=== PATIENT | male | born 1940 | race Caucasian/White ===

== ENCOUNTER 2022-11-17 09:46 | Outpatient (OUT) | payer MEDICARE, SELFPAY | END 2022-11-17 09:47 | PROVIDERS: PCP Internal Medicine Interventional Cardiology; Visit Provider Physician Assistant | DX: I83.12 Varicose veins of left lower extremity with inflammation (principal); L97.821 Non-pressure chronic ulcer of other part of left lower leg limited to breakdown of skin | CPT/HCPCS: 99212; A6213; G0463 ==

== ENCOUNTER 2022-12-12 10:52 | Outpatient (OUT) | payer MEDICARE, SELFPAY ==
--- NOTE | 2022-12-12 11:09 | XR_ITS ---
The [address] [address] Patient Name: GENNY BOYKIN MRN: [id number] date: 1940 Sex: M Assigned Patient Location: Current Patient Location: Accession/Order Number: [id number] Exam Date: 12/12/2022 11:09 Report Date: 12/12/2022 21:46 At the request of: AYALA CRAFT Procedure: XR foot RT min 3V PROCEDURE: XR foot RT min 3V COMPARISON: None. HISTORY: RIGHT FOOT PAIN FINDINGS: BONES:No acute fracture or dislocation. Moderate to severe degenerative changes most significant at the talonavicular and first metatarsal-phalangeal joints with joint space narrowing and extensive marginal osteophyte formation. Moderate enthesopathic spurring of the calcaneus SOFT TISSUES:Negative. No visible soft tissue swelling. EFFUSION:None visible. OTHER: Vascular calcifications IMPRESSION: Moderate to severe degenerative changes Electronically authenticated by: MARJ DUKES Date: 12/12/2022 21:46
== END 2022-12-12 10:53 | disposition home or self-care (01) ==
LOC: WC 10:52
PROVIDERS: PCP Internal Medicine Interventional Cardiology; Visit Provider Physician Assistant
DX: E11.621 Type 2 diabetes mellitus with foot ulcer (principal); I87.312 Chronic venous hypertension (idiopathic) with ulcer of left lower extremity; L97.821 Non-pressure chronic ulcer of other part of left lower leg limited to breakdown of skin; L97.511 Non-pressure chronic ulcer of other part of right foot limited to breakdown of skin; M79.671 Pain in right foot; I06.0 Rheumatic aortic stenosis; M13.80 Other specified arthritis, unspecified site; I50.32 Chronic diastolic (congestive) heart failure; E11.21 Type 2 diabetes mellitus with diabetic nephropathy; E11.65 Type 2 diabetes mellitus with hyperglycemia; I10 Essential (primary) hypertension; I73.9 Peripheral vascular disease, unspecified; A41.9 Sepsis, unspecified organism
CPT/HCPCS: 73630; A6213

== ENCOUNTER 2023-01-02 11:03 | Outpatient (OUT) | payer MEDICARE, SELFPAY | END 2023-01-02 11:04 | disposition home or self-care (01) | LOC: WC 11:03 | PROVIDERS: PCP Internal Medicine Interventional Cardiology; Visit Provider Physician Assistant | DX: I87.312 Chronic venous hypertension (idiopathic) with ulcer of left lower extremity (principal); L97.821 Non-pressure chronic ulcer of other part of left lower leg limited to breakdown of skin; E11.621 Type 2 diabetes mellitus with foot ulcer; L97.511 Non-pressure chronic ulcer of other part of right foot limited to breakdown of skin | CPT/HCPCS: A6213; G0463 ==

== ENCOUNTER 2023-02-10 07:33 | Outpatient (OUT) | payer MEDICARE, SELFPAY ==
--- NOTE | 2023-02-10 08:20 | CA_ITS ---
Patient: GENNY BOYKIN Exam Date: 02/10/2023 : 1940 Gender:M Ordering : DOTTIE GIRARD Admission #: [id number] Family : DR MARJ PIPER Order #: [id number] CLICK HERE TO VIEW EXAM ECHOCARDIOGRAM REPORT PROCEDURE: CA ECHO DOPPLER COMPLETE INDICATIONS: Nonrheumatic aortic valve stenosis, hypertension, diabetes COMPARISON: None. DESCRIPTION: COMPLETE ECHOCARDIOGRAM Real-time transthoracic echocardiography with 2D, M-mode, spectral and color flow Doppler performed. QUALITY: Technical quality was good. LEFT VENTRICLE: Normal chamber size. Proximal septal hypertrophy (sigmoid septum). LV EF: Global left ventricular systolic function is normal; visually estimated ejection fraction is 55 to 60%. No significant wall motion abnormalities. DIASTOLIC: Normal diastolic function. ATRIAL SEPTUM: Visually appears intact. LEFT ATRIUM: Normal chamber size. RIGHT ATRIUM: Normal chamber size. RIGHT VENTRICLE: Normal chamber size. Normal right ventricular systolic function. TRICUSPID VALVE: Normal mobility and thickness. Mild regurgitation. No evidence of pulmonary hypertension. RVSP 33 mmHg MITRAL VALVE: Moderately thickened with normal mobility. No evidence of mitral valve stenosis. Mild mitral annular calcification. Mild mitral regurgitation. AORTIC VALVE: Normal trileaflet appearance. Moderately calcified aortic valve. Doppler velocity suggests mild to moderate aortic valve stenosis. DVI 0.4, CRICKET 1.4 cm2. No aortic regurgitation. AORTIC ROOT: Normal diameter and appearance. PULMONIC VALVE: Normal thickness and mobility. No stenosis. No regurgitation. PERICARDIUM: No evidence of pericardial effusion. IVC: Collapses with inspirations. CONCLUSION: 1. Global left ventricular systolic function is normal; visually estimated ejection fraction is 55 to 60% 2. Normal diastolic function 3. Right ventricle is normal in size and systolic function 4. Mild tricuspid regurgitation 5. Mild mitral regurgitation 6. Mild to moderate aortic valve stenosis Adult Echocardiography Procedure Report Left Ventricle LVEDD (3.7 - 5.6 cm): 3.77 cm LVESD (2.2 - 4.0 cm): 2.14 cm LVIVS thickness (0.6 - 1.2 cm): 1.31 cm LVPW thickness (0.5 - 1.0 cm): 0.93 cm e': 0.08 m/s E - e': 7.03 LVOT Max Gradient: 2.80 mm[Hg], 2.58 mm[Hg], 2.80 mm[Hg], 2.58 mm[Hg] LVOT Area (cm2): 0.82 m/s Peak Velocity (LVOT): 0.84 m/s, 0.80 m/s, 0.84 m/s, 0.80 m/s Mean Velocity (LVOT): 0.56 m/s LVOT Diameter 2.12 cm Left Atrium LA Volume Index (2D A2C): 22.85 ml/m2 Left Atrium Systolic Dimension: 3.80 cm Mitral Valve MV E to A Ratio: 0.72, 0.67 Mitral Valve A-Wave Peak Velocity: 0.82 m/s Mitral Valve E-Wave Peak Velocity: 0.57 m/s Right Ventricle Aorta AO Root Diam: 3.05 cm Ascending Ao Diam: 3.12 cm Aortic Valve AoV Area (Peak Bill): 1.32 cm2, 1.35 cm2 AoV Area (VTI): 1.35 cm2, 1.39 cm2 Peak Velocity(Antegrade Flow): 2.18 m/s Peak Gradient(Antegrade Flow): 19.05 mm[Hg] Mean Velocity(Antegrade Flow): 1.55 m/s Mean Gradient(Antegrade Flow): 10.99 mm[Hg] Velocity Time Integral: 48.06 cm Tricuspid Valve Peak Velocity (Regurgitant Flow): 2.52 m/s, 2.74 m/s, 2.55 m/s Pulmonic Valve Peak Velocity: 0.85 m/s Peak Gradient: 2.89 mm[Hg], 2.95 mm[Hg] Right Atrium Right Atrium Systolic Pressure: 25.32 ml, 25.32 ml Dictated by: Lindsay Carvajal M.D. on 02/13/2023 at 14:33 Approved by: Lindsay Carvajal M.D. on 02/13/2023 at 14:37
== END 2023-02-10 07:34 | disposition home or self-care (01) ==
LOC: CARD 07:34
PROVIDERS: PCP Family Medicine; Visit Provider Nurse Practitioner
DX: I08.3 Combined rheumatic disorders of mitral, aortic and tricuspid valves (principal)
CPT/HCPCS: 93306

== ENCOUNTER 2023-03-03 14:38 | Outpatient (OUT) | payer MEDICARE, SELFPAY ==
[2023-03-03 15:12] LABS: Alanine Aminotransferase 49 U/L (16-63); Albumin Globulin Ratio 0.9; Albumin Level 3.4 g/dL (3.4-5.0); Alkaline Phosphatase 171 U/L (46-116); Anion Gap 10.4; Aspartate Amino Transferase 37 U/L (15-37); BUN Creatinine Ratio 19.7; Bilirubin Total 0.4 mg/dL (0.2-1.0); Calcium 8.6 mg/dL (8.5-10.1); Carbon Dioxide 31.8 mmol/L (21.0-32.0); Chloride 102 mmol/L (98-107); Estimated GFR (African America 35 (>=60); Estimated GFR (Non-African Ame 29 (>=60); Globulin 3.8 g/dL; Glucose 341 mg/dL (74-106); Potassium 5.2 mmol/L (3.5-5.1); Sodium 139 mmol/L (136-145); Total Protein 7.2 g/dL (6.4-8.2)
== END 2023-03-03 14:39 | disposition home or self-care (01) ==
LOC: LAB 14:40
PROVIDERS: PCP Family Medicine; Visit Provider Nurse Practitioner Acute Care
DX: I50.32 Chronic diastolic (congestive) heart failure (principal)
CPT/HCPCS: 36415; 80053

== ENCOUNTER 2023-09-19 09:10 | Outpatient (OUT) | payer MEDICARE, SELFPAY ==
--- NOTE | 2023-09-19 | XR_ITS ---
[place] [id number] Patient Name: GENNY BOYKIN MRN: [id number] date: 1940 Sex: M Assigned Patient Location: Current Patient Location: Accession/Order Number: [id number] Exam Date: 09/19/2023 09:15 Report Date: 09/21/2023 06:17 At the request of: YANNI MARTINEZ Procedure: XR foot RT min 3V PROCEDURE: XR foot RT min 3V HISTORY: RIGHT FOOT WOUND ; open wound dorsal surface of third toe COMPARISON: XR foot right 12/12/2022 FINDINGS: BONES:Osseous destruction involving bones of the third toe involving the medial margin of the head of the proximal phalanx and the contiguous articular surfaces of the distal interphalangeal joint. Generalized osteopenia of the foot. Marked joint space narrowing and prominent periarticular osteophytes involving the first metatarsophalangeal joint. Marked degenerative changes of the talonavicular joint. Pes planus. SOFT TISSUES:No visible soft tissue swelling. EFFUSION:None visible. OTHER: Negative. XR/XR foot RT min 3V IMPRESSION: 1. Areas of osseous destruction involving the bones of the third toe compatible with osteomyelitis. 2. 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 Electronically authenticated by: CHERI LAGUERRE Date: 09/21/2023 06:17
== END 2023-09-19 09:11 | disposition home or self-care (01) ==
LOC: WC 09:11
PROVIDERS: PCP Family Medicine; Visit Provider Podiatrist Foot & Ankle Surgery
DX: E11.621 Type 2 diabetes mellitus with foot ulcer (principal); L97.511 Non-pressure chronic ulcer of other part of right foot limited to breakdown of skin; I87.312 Chronic venous hypertension (idiopathic) with ulcer of left lower extremity; L97.821 Non-pressure chronic ulcer of other part of left lower leg limited to breakdown of skin
CPT/HCPCS: 73630; G0463

== ENCOUNTER 2023-09-26 09:53 | Outpatient (OUT) | payer MEDICARE, SELFPAY ==
--- NOTE | 2023-09-26 10:00 | CA_ITS ---
Patient Name: GENNY BOYKIN MR#: [id number] : 1940 Exam Date: 09/26/2023 Ordering Doctor: MADELYN LORENZO M.D. 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 DESCRIPTION: COMPLETE ECHOCARDIOGRAM Real-time transthoracic echocardiography with 2D, M-mode, spectral and color flow Doppler performed. QUALITY: Technical quality was good. 71 , 229#, BSA 2.23 m2, BP 136/74 LEFT VENTRICLE: Normal chamber size. Thickened septal wall. Normal systolic function. LV EF: Normal left ventricular ejection fraction, (>55%). DIASTOLIC: Mild, grade I diastolic dysfunction. ATRIAL SEPTUM: Visually appears intact. LEFT ATRIUM: Moderate chamber enlargement. RIGHT ATRIUM: Normal chamber size. RIGHT VENTRICLE: Normal chamber size. Normal right ventricular systolic function. TRICUSPID VALVE: Normal mobility and thickness. No stenosis with mild regurgitation. No evidence of pulmonary hypertension. RVSP 33 mmHg MITRAL VALVE: Moderately thickened with normal mobility. No evidence of mitral valve stenosis. Mild mitral annular calcification. Mild mitral regurgitation. AORTIC VALVE: Normal trileaflet appearance. Moderately calcified aortic valve. Mildly diminished mobility. Doppler velocity suggest moderate aortic valve stenosis. Peak velocity 2.5 m/s, mean gradient is 12 mmHg. DVI 0.3, CRICKET 1.1 cm2. No aortic regurgitation. AORTIC ROOT: Normal diameter and appearance. PULMONIC VALVE: Normal thickness and mobility. No stenosis. No regurgitation. PERICARDIUM: No evidence of pericardial effusion. IVC: Collapses with inspirations. PLEURA: CONCLUSION: 1. Normal ventricular systolic function. LVEF is 55 to 60%. 2. Mild diastolic dysfunction. 3. Moderate aortic valve stenosis. 4. Mild mitral and tricuspid regurgitation. 5. Normal right-sided pressures. Adult Echocardiography Procedure Report Left Ventricle LVEDD (3.7 - 5.6 cm): 3.41 cm LVESD (2.2 - 4.0 cm): 3.03 cm LVIVS thickness (0.6 - 1.2 cm): 1.29 cm LVPW thickness (0.5 - 1.0 cm): 0.87 cm e': 0.07 m/s E - e': 9.49 LVOT Max Gradient: 2.31 mm[Hg] LVOT Area (cm2): 0.76 m/s Peak Velocity (LVOT): 0.76 m/s Mean Velocity (LVOT): 0.54 m/s LVOT Diameter 2.17 cm Left Atrium LA Volume Index (2D A2C): 23.64 ml/m2 Left Atrium Systolic Dimension: 3.13 cm Mitral Valve MV E to A Ratio: 0.85 Mitral Valve A-Wave Peak Velocity: 0.79 m/s Mitral Valve E-Wave Peak Velocity: 0.67 m/s Right Ventricle Aorta AO Root Diam: 3.39 cm Ascending Ao Diam: 2.91 cm Aortic Valve AoV Area (Peak Bill): 1.1 cm2 Peak Velocity(Antegrade Flow): 2.05 m/s, 2.02 m/s, 2.50 m/s, 2.48 m/s Peak Gradient(Antegrade Flow): 16.76 mm[Hg], 16.35 mm[Hg], 25.08 mm[Hg], 24.65 mm[Hg] Mean Velocity(Antegrade Flow): 1.38 m/s, 1.32 m/s, 1.62 m/s, 1.61 m/s Mean Gradient(Antegrade Flow): 8.93 mm[Hg], 8.31 mm[Hg], 12.21 mm[Hg], 12.28 mm[Hg] Velocity Time Integral: 42.54 cm, 39.68 cm, 48.65 cm, 50.75 cm Tricuspid Valve Peak Velocity (Regurgitant Flow): 2.47 m/s, 2.74 m/s Pulmonic Valve Peak Gradient: 3.27 mm[Hg], 2.96 mm[Hg] Right Atrium Right Atrium Systolic Pressure: 24.07 ml, 24.07 ml Dictated by: Lonny Liu M.D. on 09/26/2023 at 16:05 Approved by: Lonny Liu M.D. on 09/26/2023 at 16:16
== END 2023-09-26 09:54 | disposition home or self-care (01) ==
LOC: CARD 09:54
PROVIDERS: PCP Family Medicine; Visit Provider Internal Medicine Cardiovascular Disease
DX: I08.0 Rheumatic disorders of both mitral and aortic valves (principal)
CPT/HCPCS: 93306

== ENCOUNTER 2023-10-03 13:33 | Outpatient (OUT) | payer MEDICARE, SELFPAY | END 2023-10-03 13:34 | disposition home or self-care (01) | LOC: WC 13:33 | PROVIDERS: PCP Family Medicine; Visit Provider Podiatrist Foot & Ankle Surgery | DX: E11.621 Type 2 diabetes mellitus with foot ulcer (principal); L97.511 Non-pressure chronic ulcer of other part of right foot limited to breakdown of skin; I87.312 Chronic venous hypertension (idiopathic) with ulcer of left lower extremity; L97.821 Non-pressure chronic ulcer of other part of left lower leg limited to breakdown of skin | CPT/HCPCS: 11042 ==

== ENCOUNTER 2023-10-23 14:41 | Outpatient (OUT) | payer MEDICARE, SELFPAY | END 2023-10-23 14:42 | disposition home or self-care (01) | LOC: WC 14:41 | PROVIDERS: PCP Family Medicine; Visit Provider Physician Assistant | DX: E11.621 Type 2 diabetes mellitus with foot ulcer (principal); L97.511 Non-pressure chronic ulcer of other part of right foot limited to breakdown of skin | CPT/HCPCS: G0463 ==

== ENCOUNTER 2023-11-24 12:32 | Outpatient (OUT) | payer MEDICARE, SELFPAY | END 2023-11-24 12:33 | disposition home or self-care (01) | LOC: WC 12:32 | PROVIDERS: PCP Family Medicine; Visit Provider Podiatrist Foot & Ankle Surgery | DX: E11.621 Type 2 diabetes mellitus with foot ulcer (principal); L97.511 Non-pressure chronic ulcer of other part of right foot limited to breakdown of skin | CPT/HCPCS: 11042 ==

== ENCOUNTER 2023-12-25 16:04 | Outpatient (OUT) | payer MEDICARE, SELFPAY ==
--- OUTSIDE RECORDS SUMMARY | 2023-12-25 16:31 | XMS_ITS | CCD ---
Author Organization [facility] Care Team Providers Care Heat Treat Supervisor Name Role Phone Unavailable Primary Care Provider UnavailMARJ Cooper Primary Care Unavailable MORTON Referring Unavailable JILLIAN HERNADEZ Admitting Unavailable ALICIA SWEET Attending Unavailable Lydia Anderson Unavailable Godfrey Gomez Unavailable Teofilo Person Unavailable MD Marj Sorensen Primary Care Provider MD Teofilo Person Attending Provider MD Sweetie Tomlinson V Attending Provider MISC, DR SILVA Primary Care Unavailable YURI HUGHES Attending Unavailable YURI HUGHES Admitting Unavailable DAVI, DR PITT Admitting Unavailable MISC, DR SILVA Primary Care Unavailable MOUKARBCLINT, DR PITT Attending Unavailable MOUKAPETROSEL, DR PITT Consulting Unavailable MISC, DR SILVA Primary Care Unavailable MAYRAUKAALPHONSO, DR PITT Attending Unavailable MOUKAPETROSEL, DR PITT Consulting Unavailable MAYRAUKAPETROSEL, DR PITT Admitting Unavailable PROVIDER, UNKNOWN Attending Unavailable PROVIDER, UNKNOWN Admitting Unavailable MADELYN LORENZO Attending Unavailable FRANCOIS NERI Attending Unavailable SWEETIE TOMLINSON Attending Unavailable DOTTIE GIRARD Attending Unavailable Marj Sorensen Admitting Unavailable Marj Sorensen Primary Care Unavailable Marj Sorensen Attending Unavailable Marj Sorensen Primary Care Unavailable Marj Sorensen Admitting Unavailable Marj Sorensen Attending Unavailable Marj Sorensen Primary Care Unavailable CAREY FUNG Admitting Unavailable CAREY FUNG Attending Unavailable Marj Sorensen Primary Care Unavailable Marj Sorensen Attending Unavailable Marj Sorensen Primary Care Unavailable Marj Sorensen Attending Unavailable Marj Sorensen Primary Care Unavailable Marj Sorensen Attending Unavailable Marj Sorensen Primary Care Unavailable Marj Sorensen Attending Unavailable Marj Sorensen Attending Unavailable Marj Sorensen Primary Care Unavailable Marj Sorensen Primary Care Unavailable CAREY FUNG Admitting Unavailable CAREY FUNG Attending Unavailable Marj Sorensen Primary Care Unavailable Marj Sorensen Admitting Unavailable Marj Sorensen Attending Unavailable Marj Sorensen Attending Unavailable Marj Sorensen Primary Care Unavailable Marj Sorensen Admitting Unavailable Medications Current Medications Medication Drug Class(es) Dates Sig (Normalized) Sig (Original) 8 hr acetaminophen 650 mg extended release oral tablet (4 sources) Start: 02-12-2020 take 1 tablet by mouth three times daily Acetaminophen (Tylenol Arthritis Pain) 650 mg Tablet Extended Release Active 650 MG PO Three times daily February 12, 2020 12:00am take 1 tablet by mouth every fou r hours Tylenol 325 MG 1 tablet as needed Orally every 4 hrs prn Active allopurinol 300 mg oral tablet (1 source) Xanthine Oxidase Inhibitor Start: 02-12-2020 take 300 mg by mouth once daily Allopurinol Active 300 MG PO Daily February 12, 2020 12:00am aspirin 325 mg oral tablet (4 sources) Platelet Aggregation Inhibitor, Nonsteroidal Anti-inflammatory Drug Start: 02-12-2020 take 325 mg by mouth once daily Aspirin,Buffd-Ludwig cium Carb-Mag Active 325 MG PO Daily February 12, 2020 12:00am chondroitin sulfates 200 mg / glucosamine hydrochloride 250 mg oral tablet (4 sources) Start: 02-12-2020 take 1 tablet by mouth once daily Glucosamine-Chond roitin (Osteo Bi-Flex) 250-200 mg Tablet Active 1 TAB PO Daily February 12, 2020 12:00am Osteo Bi-Flex On e Per Day - as directed Orally Active cinnamon bark 500 mg oral capsule (1 source) Start: 02-12-2020 take 1 capsule by mouth once daily Cinnamon Bark (Cinnamon) 500 mg Capsule Active 1000 MG PO Daily February 12, 2020 12:00am cinnamon preparation 500 mg oral tablet (3 sources) Non-Standardized Food Allergenic Extract Cinnamon 500 MG as directed Orally Active Ciprofloxacin (1 source) Quinolone Antimicrobial Ciprofloxacin Active colchicine 0.6 mg oral tablet (3 sources) Start: 03-12-2020 Colchicine 0.6 MG 2 tablet when picked up then take 1 tablet 1 hour later Orally Once a day for 30 day(s) Feb, Active empagliflozin 10 mg oral tablet (4 sources) Sodium-Glucose Cotransporter 2 Inhibitor Start: 02-12-2020 take 5-10 mg by mouth once daily Empagliflozin (Jardiance) 10 mg Tablet Active 5 - 10 MG PO Daily February 12, 2020 12:00am States I take on according to my BS. fluticasone propionate 0.05 mg/actuat metered dose nasal spray (4 sources) Corticosteroid Start: 02-12-2020 Fluticasone Propionate Active 1 SPRAY INTRANASAL Daily February 12, 2020 12:00am take 1 spray(s) nasal route once daily Fluticasone Propionate 50 MCG/ACT 1 spray in each nostril Nasally Once a day Active glimepiride 4 mg oral tablet (4 sources) Sulfonylurea Start: 02-12-2020 take 4 mg by mouth twice daily Glimepiride Active 4 MG PO Twice daily February 12, 2020 12:00am take 1 tablet by [facility] every twenty-four hours Glimepiride 4 MG 1 tablet with breakfast or the first main meal of the day Orally Once a day Active hydroCHLOROthiazide 12.5 mg oral tablet (4 sources) Thiazide Diuretic Start: 02-12-2020 take 12.5 mg by mouth once daily Hydrochlorothiazide Active 12.5 MG PO Daily February 12, 2020 12:00am take 1 capsule by mo [facility] every twenty-four hours hydroCHLOROthiazide 12.5 MG 1 capsule in the morning Orally Once a day Active levothyroxine sodium 0.025 mg oral tablet (5 sources) l-Thyroxine Start: 02-12-2020 take 25 ug by mouth once daily Levothyroxine Active 25 MCG PO Daily February 12, 2020 12:00am Start: 02-12-2020 End: 02-12-2020 Levothyroxine Discontinued T ABLET February 12, 2020 12:00am February 12, 2020 9:57am take 1 tablet by toma once daily in the morning Levothyroxine Sodium 25 MCG 1 tablet in the morning on an empty stomach Orally Once a day Active lidocaine 0.04 mg/mg topical gel (1 source) Antiarrhythmic, Amide Local Anesthetic Start: 02-12-2020 Lidocaine Active 1 APPLIC TOPICAL As Directed February 12, 2020 12:00am loratadine 10 mg oral tablet (4 sources) Start: 02-12-2020 take 10 mg by mouth once daily Loratadine Active 10 MG PO Daily February 12, 2020 12:00am metoprolol tartrate 25 mg oral tablet (4 sources) beta-Adrenergic Jose D Start: 02-12-2020 take 25 mg by mouth twice daily Metoprolol Tartrate Active 25 MG PO Twice daily February 12, 2020 12:00am take 1 capsule by mouth once yinka ly Metoprolol Succinate 25 MG 1 capsule Orally Once a day Active montelukast 10 mg oral tablet (4 sources) Leukotriene Receptor Antagonist Start: 02-27-2020 take 10 mg by mouth once daily at bedtime Montelukast Active 10 MG PO Daily at bedtime February 27, 2020 12:00am Rcqkttni-Gxb-Iqcqe -Vit K-Lycop (Men's 50 Plus Daily Formula) 400-20-370 mcg Tablet (1 source) Start: 02-12-2020 take 1 tablet by mouth once daily Msqtspme-Vee-Cewd c-Vit K-Lycop (Men's 50 Plus Daily Formula) 400-20-370 mcg Tablet Active 1 TAB PO Daily February 12, 2020 12:00am Multivitamin preparation (3 sources) take 1 tablet by mouth once daily Multivitamin - 1 tablet Orally Once a day Active pioglitazone 45 mg oral tablet (4 sources) Peroxisome Proliferator Receptor alpha Agonist, Peroxisome Proliferator Receptor gamma Agonist, Thiazolidinedione Start: 02-12-2020 take 45 mg by mouth once daily Pioglitazone Active 45 MG PO Daily February 12, 2020 12:00am pravastatin sodium 40 mg oral tablet (4 sources) HMG-CoA Reductase Inhibitor Start: 02-12-2020 take 40 mg by mouth every other day Pravastatin Active 40 MG PO every other day February 12, 2020 12:00am take 1 tablet by toma th every twenty-four hours Pravastatin Sodium 40 MG 1 tablet Orally Once a day Active rivaroxaban 10 mg oral tablet (1 source) Factor Xa Inhibitor Start: 02-28-2020 take 1 tablet by mouth once daily Rivaroxaban (Xarelto) 10 mg Tablet Active 10 MG PO Daily February 28, 2020 12:00am rOPINIRole 1 mg oral tablet (7 sources) Nonergot Dopamine Agonist Start: 03-12-2020 take 2 tablets by mouth at bedtime rOPINIRole HCl 1 MG 2 tablet Orally at bedtime for 30 day(s) 24 Sep, 2020 Active Start: 02-12-2020 take 2 mg by mouth o nce daily at bedtime Ropinirole Active 2 MG PO Daily at bedtime February 12, 2020 12:00am take 1 tablet by toma th once daily at bedtime rOPINIRole HCl 1 MG 1 tablet 1 to 3 hours before bedtime Orally Once a day Active [place] Oil-[place]-3 Fatty Acids ([place] Oil-1000) 1,000-200 mg Capsule (1 source) Start: 02-12-2020 take 1 capsule by mouth once daily [place] Oil-[place]-3 Fatty Acids ([place] Oil-1000) 1,000-200 mg Capsule Active 1 CAP PO Daily February 12, 2020 12:00am ubidecarenone 100 mg oral capsule (1 source) Start: 02-12-2020 Coenzyme Q10 ( Co Q-10) 100 mg Capsule Active 100 MG PO Daily February 12, 2020 12:00am Vitamin B 12 100 MCG (3 sources) Vitamin B 12 100 MCG as directed Orally Active vitamin b12 1 mg oral tablet (1 source) Vitamin B12 Start: 02-12-2020 take 1 tablet by mouth once daily Cyanocobalamin (Vitamin B-12) (Vitamin B-12) 1,000 mcg Tablet Active 1000 MCG PO Daily February 12, 2020 12:00am Completed/Discontinued Medications Medication Drug Class(es) Dates Sig (Normalized) Sig (Original) traMADol hydrochloride 50 mg oral tablet (4 sources) Opioid Agonist Start: 02-12-2020 End: 02-28-2020 Tramadol Discontinued 50 MG PO Three times daily February 12, 2020 12:00am February 28, 2020 9:46am Takes 1 at HS take 1 tablet by toma th every twenty-four hours traMADol HCl 50 MG 1 tablet as needed Orally Once a day Active Problems Active Problems Problem Classification Problem Date Documented Date Episodic/Chronic Cardiac dysrhythmias (6 sources) Paroxysmal atrial fibrillation; Translations: [PAROXYSMAL ATRIAL FIBRILLATION] Onset: 03-26-2022 Chronic Chronic kidney disease (2 sources) Chronic kidney disease; Translations: [Chronic kidney disease, stage 3b] Onset: 10-06-2023 Chronic ulcer of skin (2 sources) Non-pressure chronic ulcer of unspecified part of left lower leg with unspecified severity; Translations: [Non-pressure chronic ulcer of unspecified part of left lower leg with unspecified severity] Onset: 10-21-2022 Chronic Congestive heart failure; nonhypertensive (3 sources) Chronic diastolic (congestive) heart failure; Translations: [CHRONIC DIASTOLIC HEART FAILURE] Onset: 03-25-2022 Chronic Coronary atherosclerosis and other heart disease (2 sources) Atherosclerotic heart disease of [place] coronary artery without angina pectoris; Translations: [Atherosclerotic heart disease of [place] coronary artery without angina pectoris] Onset: 02-19-2022 Chronic Diabetes mellitus with complications (2 sources) Type 2 diabetes mellitus with other skin ulcer; Translations: [Type 2 diabetes mellitus with other skin ulcer] Onset: 10-21-2022 Chronic Diabetes mellitus without complication (2 sources) Type 2 diabetes mellitus without complications; Translations: [Type 2 diabetes mellitus without complications] Onset: 03-03-2023 Chronic Disorders of lipid metabolism (3 sources) Hyperchylomicronemia; 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 ] Onset: 03-25-2022 Chronic Essential hypertension (2 sources) Essential (primary) hypertension; Translations: [Essential (primary) hypertension] Onset: 10-21-2022 Chronic Gangrene (3 sources) Gangrene of foot; Translations: [Gangrene, not elsewhere classified] Episodic Gout and other crystal arthropathies (4 sources) Gouty arthritis of right ankle; Translations: [Idiopathic gout, right ankle and foot] Onset: 03-11-2021 Resolved: 03-11-2021 Chronic Heart valve disorders (4 sources) Nonrheumatic aortic (valve) stenosis; Translations: [Rheumatic disorders of both mitral and aortic valves] Onset: 03-25-2022 Chronic Osteoarthritis (4 sources) Arthritis of right knee; Translations: [Unilateral primary osteoarthritis, right knee] Onset: 03-11-2021 Resolved: 03-11-2021 Chronic Other connective tissue disease (4 sources) History of total knee arthroplasty; Translations: [Presence of right artificial knee joint] 02-28-2020 Chronic Other connective tissue disease (1 source) Presence of right artificial knee joint; Translations: [Status post total right knee replacement Z96.651] Onset: 03-11-2021 Resolved: 03-11-2021 Chronic Other hereditary and degenerative nervous system conditions (3 sources) Restless legs; Translations: [Restless legs syndrome] Chronic Other hereditary and degenerative nervous system conditions (1 source) Restless legs syndrome; Translations: [Restless leg syndrome G25.81] Onset: 03-11-2021 Resolved: 03-11-2021 Chronic Other nervous system disorders (3 sources) Neuropathy; Translations: [Polyneuropathy, unspecified] Chronic Other nervous system disorders (3 sources) Chronic pain; Translations: [Other chronic pain] Chronic Other non-traumatic joint disorders (1 source) Rotator cuff arthropathy of right shoulder; Translations: [Other specific arthropathies, not elsewhere classified, right shoulder] Chronic Other non-traumatic joint disorders (1 source) Other specific arthropathies, not elsewhere classified, right shoulder Onset: 12-02-2021 Resolved: 12-02-2021 Chronic Peripheral and visceral atherosclerosis (6 sources) Peripheral vascular disease; Translations: [Peripheral vascular disease, unspecified] Onset: 03-25-2022 Chronic Spondylosis; intervertebral disc disorders; other back problems (3 sources) Degeneration of lumbar intervertebral disc; Translations: [Other intervertebral disc degeneration, lumbar region] Chronic Past or Other Problems Problem Classification Problem Date Documented Da te Episodic/Chronic Other non-traumatic joint disorders (1 source) Pain in right shoulder Onset: 12-02-2021 Resolved: 12-02-2021 Episodic Results Test Name Value Interpretation Reference Range Facility Coding Summaryon 12-12-2023 Coding Summary HTMLBase 64 EmbvwpguUVp4vZt+PGhlYW Q+FM9DCKMnA94ctQRbnO1z S6MKQPqMWijsGPJZNQfAQq MrblDnXX0ccRRsZANy IC8+HG4wLEEwBpsyxIUfk6 D9oPS4X69yul5kHDqagLC6 CSRfAnTvqmsld4qlkKg4ZJ cuNmluOyBt AQQmwW92YGA1eX06Rr06iY JnvYBpv0gupVl8FtVbTXTi GHF1eCeaJVwib0NqGFPbA4 9fuPUcg5Z0 YBQjyNezkSRcYwKfyUK2aZ 6xWClywweik8xupcnqEir8 oe23rIEhl9B4pHM1D2Uhzf W6RAEfoXKr ThhqrDVMnR3gajcxt3kodc idYoEvXDVjMHc6XAn4ZTZt gIwiSzVmQJ52IYW1FRByae MlP1DcSASx xFedZzV5n2O3Ya9IE7PDQy lwJ8ZDYVNHAGkmpAX+PC90 xx34A8DgOkndRwq0FFLlLJ V2zWG5aM3t SRAfVQmxq6C7hHY3T7Eivr Vuej6qk3imHWJvHCqhS41p vZFzq9V3PAKsqQN7BTUrkS cbOuYuaC82 Oyc+JEBahVlae9PuOscmd1 zma1qtpEq4NckjGIJjjzBf cCvlEZN9i6ZcCk1xBTUczA A1aYQ4mH5d BiKiGsP3OYmlS370AcHfrV ZvCkggF87cS6TfdXN+PHRy Msf7ITUvhYsgEY8oO4MrFQ RpbmctbGVm hVseID6mGPGmeijmVTDbhC 8yKPGnX2d8MfHlGlF1PRqc R4BqICRnnkaiLp22oH5aNn RqJgZ9IFrj V8AuigM4IIQzoJJhPNdpNO K0R62rz8Z7NPOjXTGoWHS9 rEM0fE1mdPuddnihqLAliZ sgdmVydGlj MXktJLxyD332JXEorMvsLk NvZGluZyBEYXRlOiAgMDYv MjUvMjAyNDwvdGQ+PHRkIH C0oNsrYQDw uYGkSApfLo7gbPqkdMsdEH 4sHTGbkukeTLXcxA0tQYIt wNSmpEepKI1dXSCkiyjpq1 51IhQlMPV6 NTWnsSLeT1UqjE3sBnBeZA ApAIHdJ5YgmKQbEKspE410 UPbsOgB5VWLwwbDyC3GgLB FsaWduOiB0 w7A9Ik6Sg7RzongpG3OzdZ IkHlOzXvshJNz9G5LkUoux dHI+RS50WSOoZU81QGf5RS O5hCabXZfz AKPhZ1ZznT7rTjQkXRJxLI RkOyc+PHRhYmxlIHdpZHRo RUbrLSCjFhKepLewUE4oZq 9yZGVyLWNv iXdbyEVlUyWhn7zgZQTtUW mdRK4fuUunW7RgzHZ7KSXn x6q4Kh19U58iU0QohJE+PG QkeBL0tDF3 nN9oZeEnCcA8THitX689Ag IkrSOwZoako7zeb0pkxAz9 HeD3KGTrcsQsyCjgMZV0j8 JrCi18N37r IHdpZHRoPSIxNSUiIHZhbG iafs0jmN5dHx6+PGNvbCB3 mBV3jZ2aKrHuGrF0IMbpP2 49InRvcCIv Jfqjd6ehe3pjtHn7WrVaFP RimrNqkKvhBCW4j9SqNb45 Q8JzkDmrh4VrBst6nq16kH Oqm3K5rOY1 U8EjYNFzauktsVGjqKwsRG 5gOMOqgtelQSXodV1xSQLy X6m0PeYuBeA2OYhwZ5Giba B4TAYoiEYr BPMosXSFbD2wtedcu6quke coQcXgTWMjWXv6SNz3ISKd hFuzNiYiPLY5ZmX5MSE3aU HojM9kxSan fcfufG7hJdd+BHN6qKJcnT CLZJ0zHztkoQL+PHRkIHN0 rIbgGDktVXFriN3iFJRcP6 s7ZiCzHpG1 VOuhD9WuaqS9YHFpsZYgRT SbwNDNcW1ultjvf4rotmbl AeFkYGOgXSz6EMj5IETrhH duOiBsZWZ0 AqZ1SAD5sESawP0sdYagrn qrpT3jZtd+QmlydGggRGF0 IVw9L7PvPhn1NMQpjQcuWN 0ncGFkZGlu Al0gsWcjuMzfLU2rPGJieg wdh807MpQmj5azYXAloNXi BJpoUIS9C82cb7D7DDHtDV PnUVX6iHU1 tU4ykQlbzpkhnYNmmTgbuk LypEbyVTerPQkfK069IJOs qUriOoTzJFh1M1SxQog5LR CbqHyaAQ8u jNTcILbvUb2fcMtxqDixTQ 6lYDUsaaepd280PkCzi8md XDXjaQQzLRotEMX1T88om8 R8YMVjEQQs SOP9sCN6yY0ciAmsukllkK VmdDsgdmVydGljYWwtYWxp J160CXDkkFrwVfXizWb4C1 PkIqg9OAFy jAmuVT8cbJZhOHwuZk0vgA gixBwgJT5qIPPoxzsca386 EkIsg0djVSXasGLbCJacLT I3A69mg9M6 FYUvYGLiOCN0nRJ4tF4ifS lnbjogbGVmdDsgdmVydGlj FMcjGKpcG136JNZdbPgeMm BhdGllbnQg WUlsZTj4J0KfPnbkiEX+PC 76DCCvVJ17wTCvuBKhd1hu aSu0OpWdHYXuTSR1yYotIY nku0JfNVVx B86umQApp2V9PTUoqVdcbM QpNuQzkES9bO9wNBavgceh l1eqyqzaWwebz7komz98sY 48I95tRSqb ZHRoPSIzMCUiIHZhbGlnbj 3juL4gOj8+AHCfoSU3kXL1 qK5nUKHaIxE1PNtdC147Tk RvcCIvPjxj l3lbj9sqpVz4EhG2RIDiss ImbWkhCWY5l5XaMd74C14m IHdpZHRoPSIyMCUiIHZhbG rgww0iaI5n Ii8+NXQtnZQ1rBZ4cT6rKp GvJhN5AZtrL266AkWlzSUo WvrrR81oX6RaxHD+PHRyPj a4RFPluUls MM1hyNSrCAwdJx6iIBO3Fd UyGlXaXHggC7GbCFYutqwx tbjdpAS2BEGqSJIvxQ97Gd 9udDogMTBw xYNHxB8vmaysm6zstzbzRr TnQQQkHDa3CDv1UJJozFmz NqHqMZN6TgC3RHG0zXOpqA 1hbGlnbjog vF3nQ0UdVZGrhywlNj62zF 9xGpWjNgD9VZykHbo+U0NI RVJGLCBSQVkgQVJUSFVSPC 24LU46wMWc b9Y0tVA9P5VbHCIjmsczlg hueKO9VGHvGIBroW59aJFb OUnnYq2gh2Q0b141CEZdOB JzdH45Cg2v zNzeRSEfcFCQaI5voxmll2 mmxutyMmSgIGOkXCx4PVf6 HAAmqEwbLkChCVV3FxZ5PW X4wVRgkU0z iWpliintcT8cOin+MDEvMD ArRRv6JvjbrGM+PHRkIHN0 mRyiPKgmFZWmzC1jQQIsR9 g2SjWlQjO8 QVjdX9FgMKLqyutbXh23iH 4tDtLbOnI5DFmiY0XgqiB7 XEDseGKxEFzqJPE1X58rr7 R5OOHtVEZq JEX9gPP3xT2opQhdiotnaH VmdDsgdmVydGljYWwtYWxp J692AVIhjJbeXsfxUEcoXP FsYK70FB77 dLDrs7C1hFZ7P3HcXFZiho ntrvyfxRE4XQStYERivA07 yPQtFTpmXa2eb4Y9m380UU LxHAErdM27 Cr2utFclSSYqqGIAfV6gvb qln1npwvhlWaKdSJZkFEp1 YVr8YIIkuLbsNoIeYXB5Yc R6ARF9kPGw xB0anGjinlwogV1rLdl+TU FMRTwvdGQ+UAJjFML0iBty XUwqYQLeeP8uCZJvS2t3Zd JaTbX3SGui Y0GhGXIbwypgNk01uW7dDs XuKpE4WNoeX1McxwT7NKNq jHFhZKctQBT4I63ah4X2SM MwMDAwMDA7 eXB4tI5fySxkpzcroGKzpP ageuYhpTxcCQtxHKfzL665 GMPdjXkoVoFaQ4IompqpKt BPdXRwYXRp AK47ZZ40LU84W4EsKuhotO FibGU+PHRhYmxlIHdpZHRo QGazGXZvDuKhfJpmPB6nIc 9yZGVyLWNv xVpndBSyHqFsj4sfXMYvMQ fzTF0pxLaiB1CvgFL3YRAp i0w7Ln39X54gG2TeeQL+PG DxpWN7oPV1 oJ4vFxCqDvB5IKlsL494Hr MrqJKuGepgj3ows4cvyYc2 WqAcVSLnysZhcSqyMXS1e1 XtZz91Q46s IHdpZHRoPSIyMCUiIHZhbG clwi9flZ0cBp5+PGNvbCB3 mXY3bG6eUcLvKdS1MGqrN3 49InRvcCIv DhtwU67bG3DuuLY+PHRyPj r6VJUslQwnXC3ugUNfTUbf Ev8nPYP1AiBmRyEcDOolX9 BhZGRpbmct nwtzxKU0DBDcFEErjE35Fq 6ivHszIh8lEZXuMEV4RZIh nJWxS7GrbS4dEmOiIDMfYB QkE3JhyQUd KMorP276YKpjPyS7PNLfnt BzC1YeIICwhNhyVkX8s3B4 Qk9HmZiqaOQhHX8yEqLhDG t7O7GkCvj5 HMBbfLwuFS9dlDMhOXhdOs 5xgSgggNucGM8nJYRoaoku q349UjNnr8dfKVEgyFEvIK yxSQA2T67l z1F5HSCeKHBfDJV7rFQ4zO 1hbGlnbjogbGVmdDsgdmVy pPebTEovUWnaE319ROGirP snPkZJTjo8 R0GeZxo5UNFddOiaCT9crM LyWOvfHl9rkRqqvMdpIT5e HNWshvhqd869IfIzs0zoLJ EwcHQgVGlt YMJ9U50gy9H6WLAuPZAmCP F8bQQ8bZ3rbPzclybkkJYb dDsgdmVydGljYWwtYWxpZ2 46IHRvcDsn Gu4YXvu4Y3GqCyr2WFPgkH rxRC7ekRYuWHbmRk0vdKcd xUelSH8mWRIfnitgr262Ju Kht7tgKHUa oCSoFJobFTK8P27tk1V7XR IiTAAfIFH3wMR8wH2tzWgx bjogbGVmdDsgdmVydGljYW neJKhtL063 IHRvcDsnPlBheWVyOjwvdG Q+VW33dk26Y2JcAxssIdy2 OOIpLME5sBM8rX3lYZQsBQ gxx6X9jBN6 J2J (more content not included)... [facility] Provider Orderson 11-30-2023 Provider Orders [id number]#1 .[id number] [facility] Outside Recordson 10-17-2023 Outside Records [id number]#1. 00OTGTIFF [facility] Outside Recordson 10-12-2023 Outside Records [id number]#1.0 0OTGTIFF [facility] Office Visiton 10-06-2023 Follow-up visit [id number] Juan JoségeorgiRichard Dugan 1940 M Date Provider Department Center 10/06/2023 SWEETIE TRIMBLE [facility] Jalen Grewal Family History Problem Relation Age of Onset Stroke Mother Valvular heart disease Father Family Status - Relation Status Age at Mother Father Level of Service:34394 MS OFFICE/OUTPATIENT ESTABLISHED MOD MDM 30 MIN Reason for Visit and Comments: Follow-up [213789] - 6 month follow up had echo completed Normal [facility] Coding Summaryon 09-28-2023 Coding Summary HTMLBase 64 ZwjkufkkDHy5kGe+PGhlYW Q+QL4PDCItJ56gxHIzrM2t H3QCGYtWKadmAIEHRMpEKx AhpdNqCI3irYYfVBHl IC8+XO9fJZZqRhujkYZdu1 L0tRC2Q73gwu2wPJzzaGK5 DRMjSuLperwjp8vsdQq9IQ cuNmluOyBt LRSvrT03OGV7uQ43Bv23oL GfpMCxk2fboYe5FaFhQFWd FNE3rPotAPthy2NcPUKfY0 0hoRSlx1K5 YLFbiYtrmATzXsUamVX5oM 5hNVobydxjm8kpxxvvXmb3 gy08gZElc9G9hLM4Z7Zzbt S7IIRjqHTn RnzsaNMXmK0uyscuu5tbxq bnAdWpWSLmOVm7DEn0AOTn oKtoGcGsAB40VLB9XBMheu KbM7RoDVXi bBwiWeI0t0P9Vr6UA5VMLt srV8ZTPOLSHPfoqHE+PC90 gm74M3FaBawkMwu2XKHwXV Z0bXA3vE0b BJFfJLsue3W8aPY1S5Ybdt Yjju5lu6pyQZYmLCpsS63j hMRxo0B6QRNbdFG9HUTylX jxYfZabK04 Oyc+CTWsaObnh9IoQicbv4 xnp0xhmPk2CnzxFWGxbmOp qAqqXRJ9t0EmDz8bRKBoqS O5oSS3wU7z YwOiPyR3ZUvyY515EqZcmY QwAvuqX79cA2PwwSR+PHRy Gvv9PATwvUkmWL6hH0XbQY RpbmctbGVm pWiyKR6iDAAlunndGKIszP 0iUHNvB2b2XtRwEkV7ULtx D4SpPKSjgtoaJs30yK1bCn BkQfP9SOhg W0VzflV5GRRfbRLvKCdcUE X2F22rv7A3UGGgKPBbFSI3 wRW8xS2ygKpntebhuFRayB sgdmVydGlj QHwcKYpmU175KUPbpRihDt NvZGluZyBEYXRlOiAgMDQv MTEvMjAyNDwvdGQ+PHRkIH T9gDxaBKZv aFAjKXklCa7cwHbbpGftVD 3xBYIxkuzfXYQifY1qOHCh qKEksHdcPK0hGLMgbmtpw4 02EhNyWOA0 QKYfzECrS3XulI2qLiNiGB OxWGOdK7CmwRSfINekH821 BBweDtZ8PXXylhUoM1WlKB FsaWduOiB0 r9Z5Zg1Ip8LusfgfJ2HjxU CdAxVgWpbaZJw5K9GuUclr dHI+II96LWWjHB35GHf0ZN E8xRglXArc XDOuH1XraF9nPiYvFBRyMC RkOyc+PHRhYmxlIHdpZHRo BExjWYTtEmAaqBpkKY8fWs 9yZGVyLWNv kJxbpHAuNcBkp7wyHGSuKD njTD3ffWxuC2HrsUO2RRUv y9w8Zw62Y20lU8GzfPG+PG RevVN2lYD1 uT1eMsUrUyD4WVzeQ329Fp KbyFQpZhfor0dys4biyZf0 CxA6EGGabtHpjCfnOTH7j2 KpHn67R03j IHdpZHRoPSIxNSUiIHZhbG hnxb4rjR6yAm6+PGNvbCB3 rWU8yW5wSySvTtJ6LPkyC6 49InRvcCIv Icyod9bgn4qxsTf6HnFsEK ZicjGptPtgXNZ5o9AwTh54 M3HcvPznv2DnEmt2wf24vE Nrw9D4iPR2 R5XuUZDvdekgvBTvkGnnYQ 0xFUZcdhjxYWXbuM6aMEZb L5q7LwKoKhG5MTaoF4Mbpk C6ITAmtPPy XQFsaXZTqM5qcvsay0bvzw tdFwCtLKQmBVw7TYa8XYUq dNcdNhOaUYD1NtG0PEV1bN HuwU0mwQtl zmkwyM2tPck+QAB0gRRhxS LAMP3gElowdSY+PHRkIHN0 wUbeWWhmOAUptW3mCRElC1 k7TmXlMkK4 MVqqU0RyvtN7RCXbzKFuQM VitIXDeM6yrsnoj2itxwsd HsOeSGDiSJi1APj4RUJdzP duOiBsZWZ0 TwG5RIJ4dTLtpS4bgThcko rszI6aBfo+QmlydGggRGF0 JZn1I7FdNet1DPEntBddKN 0ncGFkZGlu Vu3ynBmmqJiwSK6xFVLjqx vqp942InNni2ksREAbdFGd JVkcGKM3A62gw0D8OQAaGM QvHQA3gKG7 nB2evWqnyumziHJlcQdqsz YchZaeCGctADgxO604WKLp eRygGrSsFXi1A7DsTov9RM XvpOacSG5b kKDtOJgnVs9pjGvwbZrlVM 5uFBMxapzmg817BeLbk9ya VVOgwDLfMEdyYKQ1S97dw2 B3KVTeZWKy OIR4oVL0zS5mqDtgdmcfbS VmdDsgdmVydGljYWwtYWxp O280TSHkoOgdPhTvjVn1L9 UpTeq0GBSs bAlxFG4bnSDhEGhzZp7ihN gjwMhoAY9qUSAtwcfnn157 FtUhd3kzXQOdfUEeEUnxFF D8M29os5B1 ECTvJAFpYIF7zWW4nM5tuR lnbjogbGVmdDsgdmVydGlj DAbhIKwvU094QPKcaNocVi BhdGllbnQg QRbbIIi2S2SnNqxbuLM+PC 34WSHwNL13oSXmoNKyl1ul lTf6FoRrQRBiJTU4qWsoQD lbc5SuUKQx T77vwYYiq3L1ZYCayJausN ZdDxUtxJP8xE4nRDegnxsg y9hzftkzFattf0rwny91mY 95T08hPJvu ZHRoPSIzMCUiIHZhbGlnbj 0kjA6dDx5+SAHozPP5tAT8 zS7pDITySoK3JBorS777Dw RvcCIvPjxj j8qid8nkjCf2VgG1JINwjq JqzWeaFZF1a4CcDz51V30n IHdpZHRoPSIyMCUiIHZhbG nwtj9fnN3k Ii8+ZGXptKF6pGC0xB0nMv BgNmT8SXojL209XlLroSKk QjzuA44dT8OxdSL+PHRyPj n0YNArzLcr QG0qnIQyFYnuTp2oGQF4Tp PqPjThVSrwA9HoOWZgpmjr tlzgeOA9ZRPoEZHzzV83En 9udDogMTBw mSDKwS1cewvne2ingufaDo MlMIKhXWo6SAu6WORlsFel JqUpKQG6NgO5VZN0oHTyeV 1hbGlnbjog nN1nL7CsVNUcsrefAq82kX 6bEpBsXmN6AJxkUgk+U0NI RVJGLCBSQVkgQVJUSFVSPC 37KA99gEBb w3C6aQJ5G7IjZYObgtytlp kcwEA2OBGjANAgtY81hQUj HJigUm9kq5P0w022WEZyIM AcuE89Xe9x hGsjFKSqtVKDnG7rknivr3 fpsviaCmFdTBYdUFa7VXq1 IISmhAkvHuTlXRM9NhE0YR K6bBBzdR1e eJxedquvwO0lKrn+MDEvMD XfCDd8WsrdjRG+PHRkIHN0 iTkzDZxiEUTobY0aLFWgI5 y1ZtKnQjN6 YPsdH8LbDXIktmprLk48hD 3qCbLdTfA1EKmsI0SjkcT1 APCggSDtNCkjDIU8V37sl7 Y8PPEbKJPn LSH8yBB2xI4dwNoxmazxyE VmdDsgdmVydGljYWwtYWxp A459MYWraJxzDnddAGsbSA UlOF36FF43 rWTwt5O0iXQ4Y4RnFXParq fmoxcbnVO0CQJhTIOvgR01 sZKrLDbwRg4kz6Y0u894ZA FbMBXbsD16 Nn5qdUmiLWMjkICHsT6pug uor5krctmeCnOrNUDvEOf3 AFm9BJOlfSyiSdGrEWX6Rs H0XNC5bDXp nI3qeVgvglrpxE8sMes+TU FMRTwvdGQ+KAIeJIF7aEcg YBvzXZZkfK4rILIiG4t2Xf DtMeO5OGyn P0WnBPLrocydWi59oD5lJj WiYnM3BDouE0VldxG7ZTTt qRAkFLauJPS3I46dj3B6MU MwMDAwMDA7 kHY9yE5wgEqihrhncGEnoU pizqJbdWheIIpdJEfwF373 WCZzlFxfAb5CEH57GV12I3 RyPjwvdGFi bGU+PHRhYmxlIHdpZHRoPS wsUMKzLuPctWxjHJ0jWk0v ZGVyLWNvbGxhcHNlOiBjb2 xsYXBzZTsg TB0voNgvU6ThfPK0XHMro2 n7Wn40Q41kF0ZwqDF+PGNv eYH8yPZ4qC4jHqPdIrS8XU gfO777VmYd kPOyIzbix9qnf7cfsQj5Oh HtYVHzqlNezVhbVGZ6x4Sy Mj49E72qQPofOIQyBEGdJK UiIHZhbGln vl7sfL0cFx5+CXKyeHO1gW D0hE4dRtGoCbR3QYiqW912 EpLsyFStJhbdH22fD3ExcY A+PHRyPjx0 TFAreYxiSV6cqIUgJBxsZq 3bBCZ4JoBiOtUoDOfdG2Ur MBEdqzcwmlnwoBF4LCJhLD XazD72Xs3t zJrmMr1aNCGzGZS3YALolY YkE0BxoG9pAnBaROJnABMg L5KdpTSfVIbzW417WFraQd V4DXXhcyJx T8FaCZKorNhpAjF3k4H5Nt 7FrWppjRLhYZ2pDiTsSDt3 O5MxQgk7OFKizDupII0wvH YoGBsdUt5i nUmnnCykLY6tDZPilwskn2 57GcVys5yxGLMnfVNvBDlo NXU3H25wp9I4CGTuBXBcCQ R6dDW2jJ3q bGlnbjogbGVmdDsgdmVydG qzGDejSDdwM152BGUezEdv HyFYGnk4K0CvXbn5VJVgwI pmUY7grEQi IAiePy3bqMrviSoaTB7hFJ Tnmdcqt652NnDzt6yeKPFo qYObNYjzCLU6V05ct6D8XM MwMDAwMDA7 kNE2uW1wqChhzuvlgJWchM smrhQxsQmeLCxhBNdgO385 ZWWwcDcbIz7NMwc5O0ZsIs o4EWXzaKcp DU3veCCxTYdyCj2sxZzclC grKF3iUBFgazpke689KrMy e3mbRYLhxUFgEXgnAWI8A1 7qa2L6ITLn LVWfBIT3lCR5zI4ytBubhf ogbGVmdDsgdmVydGljYWwt HVnjP496BPOasMkjGeTvvA VyOjwvdGQ+ UN87dk13Q4KwVhulFbt7OQ GzKVT9zQT1aO9fDHBfXOow l5X1bOV9A8BaztYhwz4en5 xsYXBzZTog Y29 (more content not included)... [facility] Outside Recordson 09-27-2023 Outside Records [id number]#[id number] 0OTGTIFF [facility] Office/Clinic Noteon 024 Office/Clinic Note Patient: RICHARD BOYKIN Age: 83 years Sex: MALE : 1940 Associated Diagnoses: Type 2 diabetes mellitus; HTN (hypertension); Hyperlipidemia; Acquired hypothyroidism Author: Marj Sorensen MD A History of Present Illness 83-year-old male who recently returned back from [place] over the winter presents today for checkup. He is a type II diabetic. His A1c has been elevated he is insulin-dependent. He has significant peripheral neuropathy and while in [place] and now back home he has been fighting an infection in his right third toe. He reports he is currently on an antibiotic for treatment of osteomyelitis but by looking at pictures and hearing his story most likely is going to end up losing that toe. He states he has been battling this since April. I did discuss with him in my opinion he should just have the toe amputated because of risks of infection spreading and leading to a larger amputation later on. He states his A1c's have been elevated at around 10. He monitors his blood sugar only once a day typically in the morning. Because of this I am recommending him to be on a continuous glucose monitoring system. Freestyle josee 3 sensor was given for him to try. He also is being treated for high blood pressure, high cholesterol he has had a previous TIA in the past and is currently on anticoagulant. More recently has been under stress due to his having a CVA and is currently in the hospital. He is accompanied with his granddaughter. Review of Systems Constitutional: Negative. Ear/Nose/Mouth/Throat: Negative. Respiratory: Negative. Cardiovascular: Negative. Gastrointestinal: Negative. Musculoskeletal: Negative except as documented in history of present illness. Integumentary: Negative except as documented in history of present illness. Health Status Allergies: Allergic Reactions (Selected) No known allergies, Allergies (1) Active Severity Reaction No known allergies None Documented Current medications: (Selected) Prescriptions Prescribed [employer] brand glucose test strips: See Instructions, test blood sugar one to two times daily, 100 Strip, 0 Refill(s) Singulair 10 mg oral tablet: 10 mg = 1 tab(s), PO, Once a day (at bedtime), 90 tab(s), 3 Refill(s) Toujeo SoloStar 300 units/mL subcutaneous solution: 20 unit(s), SubQ, Daily, 6 pens, 3 Refill(s) allopurinol 300 mg oral tablet: 300 mg = 1 tab(s), PO, Daily, 90 tab(s), 3 Refill(s) fluticasone 50 mcg/inh nasal spray: 2 spray(s), Nasal, Daily, 3 EA, 3 Refill(s) glimepiride 4 mg oral tablet: 4 mg = 1 tab(s), PO, BID, 180 tab(s), 3 Refill(s) levothyroxine 50 mcg (0.05 mg) oral tablet: 50 mcg = 1 tab(s), PO, Daily, 90 tab(s), 3 Refill(s) pantoprazole 40 mg oral delayed release tablet: 1 tab(s), Oral, Daily, 90 tab(s), 3 Refill(s) rOPINIRole 2 mg oral tablet: 4 mg = 2 tab(s), PO, Once a day (at bedtime), 90 tab(s), 3 Refill(s) Documented Medications Documented Calmoseptine topical ointment: 1 josé, TOP, As Directed, PRN: Other (see comment), 0 Refill(s) Eliquis 5 mg oral tablet: 2.5 mg = 0.5 tab(s), PO, BID, 60 tab(s), 0 Refill(s) Jardiance 25 mg oral tablet: 25 mg = 1 tab(s), PO, qAM, 0 Refill(s) Lotrimin AF 2% topical spray: 1 spray(s), TOP, BID, 133 gm, 0 Refill(s) Metoprolol Tartrate 25 mg oral tablet: 25 mg = 1 tab(s), PO, BID, 180 tab(s), 0 Refill(s) Multivitamin, generic: 1 tab(s), PO, Daily, 0 Refill(s) Tylenol 8 Hour 650 mg oral tablet, extended release: 650 mg = 1 tab(s), PO, q8hr (int), 0 Refill(s) Vitamin B12 5000 mcg oral tablet, disintegratin,000 mcg = 1 tab(s), Oral, Daily, 0 Refill(s) aspirin 81 mg oral delayed release tablet: 0 Refill(s) atorvastatin 80 mg oral tablet: 80 mg = 1 tab(s), PO, Daily, 90 tab(s), 0 Refill(s) furosemide 40 mg oral tablet: 40 mg = 1 tab(s), PO, BID, 0 Refill(s) hydroCHLOROthiazide 12.5 mg oral tablet: 12.5 mg = 1 tab(s), PO, Daily, 0 Refill(s) lisinopril 2.5 mg oral tablet: 2.5 mg = 1 tab(s), PO, Daily, 0 Refill(s) loratadine 10 mg oral tablet: 10 mg = 1 tab(s), PO, Daily, 30 tab(s), 0 Refill(s) nystatin 100,000 units/g topical powder: 1 josé, TOP, BID, 0 Refill(s) traMADol 50 mg oral tablet: 100 mg = 2 tab(s), PO, TID, PRN: as needed for pain, 0 Refill(s), Home Medications (25) Active allopurinol 300 mg oral tablet 300 mg = 1 tab(s), PO, Daily aspirin 81 mg oral delayed release tablet atorvastatin 80 mg oral tablet 80 mg = 1 tab(s), PO, Daily Calmoseptine topical ointment 1 josé, PRN, TOP, As Directed Eliquis 5 mg oral tablet 2.5 mg = 0.5 tab(s), PO, BID fluticasone 50 mcg/inh nasal spray 2 spray(s), Nasal, Daily furosemide 40 mg oral tablet 40 mg = 1 tab(s), PO, BID glimepiride 4 mg oral tablet 4 mg = 1 tab(s), PO, BID hydroCHLOROthiazide 12.5 mg oral tablet 12.5 mg = 1 tab(s), PO, Daily Jardiance 25 mg oral tablet 25 mg = 1 tab(s), PO, qAM [employer] brand glucose test strips See Instructions levothyroxine 50 mcg (0.05 mg) oral tablet 50 mcg = 1 tab(s), PO, D (more content not included)... [facility] Outside Recordson 09-22-2023 Outside Records [id number] .[id number]07-2023 Outside Records [id number] .[facility] Coding Summaryon 03-14-2023 [facility] RccvysvgYFv0rYc+PGhlYW Q+LY8EQAWhZ54gvPWtjV3r J6ZDYDzHGlxuXUPWHDtJEf DcikTlYM9tdEQjUFQe IC8+EU3wINHaAvterXNzb6 K1hTV0E40aka9pFAphcJG1 WFUfFtIzwmngy6dzsCe3BE cuNmluOyBt IBEnqD04OCQ3sM85Gs02kF PakBHba3kpuIk9KdIwQVRz OKB5vZoaMGqde3PbATLwS0 6wqITiq2K2 WUOmwOgkyBNaFfYguQR2gE 7tQSledwxvy0ftrjrnJrd7 kp57wLCov4A1hAS0G1Sjxf G8FTSkoZTr BdryuDHXyO3rlolnp3xhrz jrWlFrAMMfVNh8CYi3TAAj mBxgHfGiAW35WWY4GLFetw ZtP3UkKFYy mJudGuG8b2W0Ro5WI6ZMBq esD5YOLKYYXVaksKS+PC90 mb05C0UoNippGei2RMRcTK E5zKG3rW3y CGQaDWgif3S8rEA7G9Arez Ztft3ve6nzFINbEJlcW83z mSSxo9T4SUZkcVS7UFAweE hkCgDdfI10 Oyc+RELjuRmwy8OnDctna5 uos9omiSi9PfjtEKJwmfSp yOerVWC6g0QfHe2kIKUiwR N7zWX3nZ9b NpQeKwP6RVbpD134PsCccA YcSjivT52wY3IvtYI+PHRy Agm6LENevZzaTE0jP6AwYK RpbmctbGVm bPqcIY0nXLHwyiqvCRErtB 3uGMGxW1g4NyRxXxJ3WSgu Z6FkSWVwwqkyFl75iK4tWz QaYhC2LRth P0NykbX6KHMogYWfTKhmGT X5O66wi4B7GQDcSQCzMTD1 yNN5zE4nfMaycrfhgPCbpW sgdmVydGlj DVjgGWgbF598JMYhvFlxQv NvZGluZyBEYXRlOiAgMDkv MjYvMjAyMzwvdGQ+PHRkIH M6kAadILOa yQOgNNmgUi9ozDsrjGubLP 9fEQDumisaVKHjqJ6kKBTk lWXouMhaCC5vIHFrkrwqc0 65SdMnSLJ1 PPOqeRKtV1UcmS6xRlYeYV CnPXUnB5HqtJOuQAlwK697 FPemZwN7VAYqxsQdG5ZqCB FsaWduOiB0 o4P6Ev8Di1DmgkvmG7NofH OuIsWeGscjWFb2D2LqJcpi dHI+JN51KTGvFP20TPq9GG L0vLrkTAhr PWRcH6CelY5kEiIbKCCyCJ RkOyc+PHRhYmxlIHdpZHRo VFywKJWiIsOffTsxTR7kNd 9yZGVyLWNv lEgvhWNjNwNff6haHQWgBB lkKT7hwAtwP5VtsRC8GCXe s1b2Kb19U21kA1UbwDL+PG GcpNL7yTB2 hG7fPjLiBlD8RTnpK123Lw EdgKWrBwmvw4uif4pfyEn3 SbC9EPRnjwZbmYakIBO0r6 UgNa17A75g IHdpZHRoPSIxNSUiIHZhbG sfmh5fbO7tEf3+PGNvbCB3 vZO8cR7rToHcJkR7EJxgG7 49InRvcCIv Tvsdz6orl7fdnCk2IhFdII QqsyIbxHugWNS9r4QdJa75 A6YidFpxa2SyUsy0nc21fZ Qxh2M3iYO5 Z3EnDCSoznbsqUJwzVlpRM 0vTZXpknusJYNmpR0lCPWj H2n1FuGmCoE5TBcqG1Yxjb H5BWRfbBRq CTAwqPNLqO3fydvep2sgwb uhDkYdLBKsRRy0FAl3FBLv aHyaMbRdAIQ0RyB1LIX1xC NjlU1qgDvo egxhpQ1fIjx+QZI2hAPcgA HMNB2vUtkmuHO+PHRkIHN0 bNgyZQxySPUmiE5iJMFnG5 h4XyCnImW8 AKwkW6MciqC4OVHsqTUbAD FlrIIKsB0aajgiy4quqpfh BtCcCNOfFXx7AJf2EXBvvS duOiBsZWZ0 LbT7SVI6hTKzrY1nxGgxfm kzmQ9gEyt+QmlydGggRGF0 DCj2X3NxXza1EDRanLjpOU 0ncGFkZGlu Rj9hqYlufIscWU3xKZPcmn qba024RuIhb4jxEZJopDSh WAiqHYR1F43dr7K5YXQtNH EsTUI3dJK9 xL0pqDfbenljcSYtkHzhzd MluIbkQLydVKseG563BLTo wVowWqIkROm3J2VwCjv8RB EjmDjlQV6i aBLlTPzyEh1ndBksfHgxNB 3pGICbdslen986HnWma0wa OUVcjTIqKWjaPKQ1D66ws0 Z1QJPaQCSs JKC6eXZ1uW5yaZxudfttiF VmdDsgdmVydGljYWwtYWxp U093MPVatUtvXkNwdXf2Z7 XjNos5HNIr iUssDP9asCVxXQfaEr1jgU gjnCpzMJ4aFBEjfqmmx743 QeXyw5xvECQkjXJfQErsCX F6L90bk2C4 NSIuRZJcPZI0tBX1sL4oeT lnbjogbGVmdDsgdmVydGlj IXcjMVvhD338WDPjjHplQo BhdGllbnQg VCjkMRh5Z5DbCfbxvKU+PC 45YYEcJB94uWImuZNqg6qp sNj9XnVkMETxTNJ1aOkpNJ uas9PxYDGs Q45kgPLnv6O3MZGlgPvdiA JuVsRoeAH3bJ1tZPkhfpbu l5jytizpGtite7oryj56jE 27W03uZFvq ZHRoPSIzMCUiIHZhbGlnbj 5htC7sCq7+ORSwuZT9aSP4 sL4hRMMfRsA5JIumZ860Ub RvcCIvPjxj e5fqo1tdgBt7XtT3WEVgak UkiDopUHH0j2HvJs55D29n IHdpZHRoPSIyMCUiIHZhbG ibis9adX0x Ii8+IHEyfWF6fRB6pA9eOp UhGeH0HRniO819KpCsmAIa MwsvN59tJ8DmmKX+PHRyPj q8JQNjzMyf IO8mwQIcUOyaWs8oMHC3Ya SsNhMlSVdxK6UtBFCvgnle pxyhsPH7VXZmXUAzcC26Fo 9udDogMTBw pGCRvI9bsuwjo8zwwvyvOc TeLFDwMIc2MJy9EEObaXby GdRjBKE4JzE7HGF1nBJiwB 1hbGlnbjog rR9cC8CsOGIdxnhdKr93rL 5mCcJsHmH3QRgrIkw+U0NI RVJGLCBSQVkgQVJUSFVSPC 18CP94eADf b6C4aGL2N3AmSVVxsbojek oelBA6SWSkXIDeoR23sZNd LGeeUt1bs0C8p503BOVtQN UazO67Ex2u gKrlKRCxiJHHmV5lbpfir6 mgbcttWlEyCOBkYDf6BVz9 YAOsbQbkElVrKFS6CrE3QU T5hJStbI9n gGwkejklvG9qRwm+MDEvMD IeNQs0KslyqPM+PHRkIHN0 tXrrCXvyYLHyyC0gQQEuW7 u2NkTnOtP3 GJhrG0DeGOYnmoqcPw49iI 6zKdFvLoO9NJsbI9YjdoO8 OJRtvTYmZChwXGU9T79zu0 Z2UCBxQPFe UYU8cKB7aI8ojArtkgamuP VmdDsgdmVydGljYWwtYWxp M358UOXxlBfgXjxxTEusLY FhDE10EP00 lVLfk4F7nEL5I7WpQQRrey tkhohpzDG2DTGsGTEboD75 gAElJBwcPf6lk8F0f108QW AjJGYtlP26 Nw9xyKhmQNYuhDNQlF8hes xku1ykjkhoUuVnTQSoRKp9 JRe4EJBibEmwUzPuIOY0Nd N3WIK9lTKc cK9plOaobbkmvA6kDvv+TU FMRTwvdGQ+ZQYbZTB5cPvv IOibZFJakH0uZPUfA9g1Ee QlIjV2GFah S5PxIZLmjcsgJy42jZ3oPm FxPxJ3SVpcR9OqtfK4BDHg uWEsUEkfYZG0W09af5I2PT MwMDAwMDA7 wJU5vN7zsWozczftfZGvjJ svuyQbmNqwOCveRWhrQ397 WLMudNmqJn3UMJ42YD76K0 RyPjwvdGFi bGU+PHRhYmxlIHdpZHRoPS shTBYyOgKzvGsvEQ7iOi5n ZGVyLWNvbGxhcHNlOiBjb2 xsYXBzZTsg MB8blIgxC2LqzCA5FGXcy7 b1Ry49P70zJ0SibIT+PGNv aLQ3tJZ3nO5rNwTlErR7KM bvF537NsJm dHSeFzhzp1xhw3cykSt0Ec SiZNDhioJqjUrhMJE1l2By Cn73K64bEDeiVCEdYJVbLA UiIHZhbGln gu9amH1uAd0+SAKbfNY2vN I6tB8jJiPgEhV8LKhkI943 UdJqlYLvHhrvK52sM4YkaI A+PHRyPjx0 RXNabCnsIP5wqUMzTUydAl 6gMNY0FbApFlZzMKgcQ9Mg IPEbjcfostxrpYI5LPOkND LgtN43Ol9k oTovXu9hKQPeVUY5KFIdzR FuI9BbhT6bUhBbIIWqFXAz C8GbsKWlUWowV259HNtoMh P6GWPsgaLf H6XjKUMjoPgfFwU1e7Q5Ki 1JlFqhhCHyQT0yNcQmAIn3 G4PqBka1NAKldDieAN5ghA YrAEfeHh7v lWzulBbqXM1eJEShfciee6 50ViMsm3foOJSbqKAkCAwt VSS3T19uu7V8QDRtWWCpUP N4iEC3aO0l bGlnbjogbGVmdDsgdmVydG ynLNmuCEtsX073EEZzwHts ShGJWmk3H2YnFjl2ENIfsO jqYE2bsLDd YSulRm1lzNpazYwzCM4oHO Bmhizcv009EaIpy2nzZLWj oHYgAGcfZZF9B79ss8M5XN MwMDAwMDA7 qHX5lM5xkUejgvexmCYgfB jpwfPweFqxEVbxOHdsZ442 FOZqnMpvKu4BPqj8T8OpLt g5SIRiaPqb RO3exQOiAGvvAo0pcJvpcZ fcXL3eLSXpvslgc731UjZu m6zsJKOehLYoRXbaJKN5H8 9ul6R7QFEf YFFtAIZ9zPJ8cD2gaIoaqn ogbGVmdDsgdmVydGljYWwt CVvzR011MGKhoYfrDcBkhQ VyOjwvdGQ+ VM13gz51I3XoJsmmXvm8ST ZiQXJ5uHA4dE6sSEEiSKaz g9O4jQE0K9WslsKdoh8mi4 xsYXBzZTog Y29 (more content not included)... Normal [facility] Office/Clinic Noteon 023 Office/Clinic Note Patient: RICHARD BOYKIN Age: 82 years Sex: MALE : 1940 Associated Diagnoses: TIA (transient ischemic attack); Fall; Chronic renal insufficiency Author: Marj Sorensen MD A History of Present Illness 82-year-old male here follow-up recent hospitalization for possible TIA after a fall. He was at [facility] when he stood up and fell forward. He was using his rollator and he fell to the ground. EMS was called and they were concerned because they noticed some facial droopiness and he was having some weakness getting up. He was life flighted off and taken to [facility] where he had a complete work-up including imaging studies. He was then admitted observation then discharged home the following day. He has not had any unilateral weakness no residual symptoms. All imaging study was negative for any CVA. They did change some of his medications stopping his hydrochlorothiazide lisinopril also because his renal function had worsened. He does have chronic renal insufficiency does see a specialist. He has an appointment to follow-up with them coming up. 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 He is requesting a flu shot today as well. Review of Systems Constitutional: Negative. Respiratory: Negative. Cardiovascular: Negative. Neurologic: Negative except as documented in history of present illness. Health Status Allergies: Allergic Reactions (Selected) No known allergies, Allergies (1) Active Severity Reaction No known allergies None Documented Current medications: (Selected) Prescriptions Prescribed [employer] glucose test strips: See Instructions, test blood sugar one to two times daily, 100 Strip, 0 Refill(s) Singulair 10 mg oral tablet: 10 mg = 1 tab(s), PO, Once a day (at bedtime), 90 tab(s), 3 Refill(s) allopurinol 300 mg oral tablet: 300 mg = 1 tab(s), PO, Daily, 90 tab(s), 3 Refill(s) fluticasone 50 mcg/inh nasal spray: 2 spray(s), Nasal, Daily, 3 EA, 3 Refill(s) glimepiride 4 mg oral tablet: 4 mg = 1 tab(s), PO, BID, 180 tab(s), 3 Refill(s) levothyroxine 50 mcg (0.05 mg) oral tablet: 50 mcg = 1 tab(s), PO, Daily, 90 tab(s), 3 Refill(s) pantoprazole 40 mg oral delayed release tablet: 40 mg = 1 tab(s), PO, Daily, 90 tab(s), 1 Refill(s) rOPINIRole 2 mg oral tablet: 4 mg = 2 tab(s), PO, Once a day (at bedtime), 90 tab(s), 3 Refill(s) Documented Medications Documented Calmoseptine topical ointment: 1 josé, TOP, As Directed, PRN: Other (see comment), 0 Refill(s) Eliquis 5 mg oral tablet: 2.5 mg = 0.5 tab(s), PO, BID, 60 tab(s), 0 Refill(s) Jardiance 25 mg oral tablet: 25 mg = 1 tab(s), PO, qAM, 0 Refill(s) Lotrimin AF 2% topical spray: 1 spray(s), TOP, BID, 133 gm, 0 Refill(s) Metoprolol Tartrate 25 mg oral tablet: 25 mg = 1 tab(s), PO, BID, 180 tab(s), 0 Refill(s) Multivitamin, generic: 1 tab(s), PO, Daily, 0 Refill(s) Toujeo SoloStar 300 units/mL subcutaneous solution: 10 unit(s), SubQ, Daily, 0 Refill(s) Toujeo SoloStar: 12 unit(s), SubQ, Daily, 0 Refill(s) Tylenol 8 Hour 650 mg oral tablet, extended release: 650 mg = 1 tab(s), PO, q8hr (int), 0 Refill(s) Vitamin B12 1000 mcg oral tablet: 1,000 mcg = 1 tab(s), PO, Daily, 0 Refill(s) Vitamin B1: See Instructions, take 300mg po daily, 0 Refill(s) amLODIPine 2.5 mg oral tablet: 2.5 mg = 1 tab(s), PO, Daily, 90 tab(s), 0 Refill(s) aspirin 81 mg oral delayed release tablet: 0 Refill(s) atorvastatin 80 mg oral tablet: 80 mg = 1 tab(s), PO, Daily, 90 tab(s), 0 Refill(s) furosemide 40 mg oral tablet: 40 mg = 1 tab(s), PO, BID, 0 Refill(s) hydroCHLOROthiazide 12.5 mg oral tablet: 12.5 mg = 1 tab(s), PO, Daily, 0 Refill(s) lisinopril 2.5 mg oral tablet: 2.5 mg = 1 tab(s), PO, Daily, 0 Refill(s) loratadine 10 mg oral tablet: 10 mg = 1 tab(s), PO, Daily, 30 tab(s), 0 Refill(s) nystatin 100,000 units/g topical powder: 1 josé, TOP, BID, 0 Refill(s) traMADol 50 mg oral tablet: 100 mg = 2 tab(s), PO, TID, PRN: as needed for pain, 0 Refill(s), Home Medications (28) Active allopurinol 300 mg oral tablet 300 mg = 1 tab(s), PO, Daily amLODIPine 2.5 mg oral tablet 2.5 mg = 1 tab(s), PO, Daily aspirin 81 mg oral delayed release tablet atorvastatin 80 mg oral tablet 80 mg = 1 tab(s), PO, Daily Calmoseptine topical ointment 1 josé, PRN, TOP, As Directed Eliquis 5 mg oral tablet 2.5 mg = 0.5 tab(s), PO, BID fluticasone 50 mcg/inh nasal spray 2 spray(s), Nasal, Daily furosemide 40 mg oral tablet 40 mg = 1 tab(s), PO, BID glimepiride 4 mg oral tablet 4 mg = 1 tab(s), PO, BID hydroCHLOROthiazide 12.5 mg oral tablet 12.5 mg = 1 tab(s), PO, Daily Jardiance 25 mg oral tablet 25 mg = 1 tab(s), PO, qAM [employer] brand glucose test strips See Instructions levothyroxine 50 mcg (0.05 mg) oral tablet 50 mcg = 1 tab(s), PO, Daily lisinopril 2.5 mg oral tablet 2.5 mg = 1 tab(s), PO, Daily loratadine 10 mg oral tablet 10 mg = 1 tab(s), PO, Daily Lotrimin AF 2% top (more content not included)... Normal [facility] Office Visiton 03-03-2023 Follow-up visit [id number] Richard Boykin 1940 M Date Provider Department Center 03/03/2023 [id number] History Problem Relation Age of Onset Stroke Mother Valvular heart disease Father Family Status - Relation Status Age at Mother Father Level of Service:95748 MS OFFICE/OUTPATIENT ESTABLISHED MOD MDM 30-39 MIN [facility] Office Visiton 02-16-2023 Follow-up visit [id number] Richard Boykin 1940 M Date Provider Department Center 02/16/2023 [id number] LORENZO [facility] Jalen Hos Family History Problem Relation Age of Onset Stroke Mother Valvular heart disease Father Family Status - Relation Status Age at Mother Father Level of Service:84755 MS OFFICE/OUTPATIENT ESTABLISHED MOD MDM 30-39 MIN [facility] Coding Summaryon 02-15-2023 Coding Summary [employer] 64 OqakulbvOGh3iUy+PGhlYW Q+PO2WOPJfK74pmERbyU5s T4JNECiCXddbHJBWNEsOOp SlsvQuUG2ueCDuEHYy IC8+VJ1mHHYnDszvuKRku1 W0zAC9B93nbj8rYCvwpTC1 ZVJtVeFdqtmif9vfgMz4RC cuNmluOyBt USYdqW93LFC0tM05Ql54pE YbmKDtv7hpePk8FgIeRJXd RTZ5nYblXQgrr6KwSVZjH0 6wzBQff2C1 RNEsjIuqhVTnVjOoiTI9xL 5eZIceqgvsr2pdcszdCil5 uq22yLYha6J4zFA7U1Jqqe A2CDBlqDQq WdoceKKQrN1javonk8vdmn dhZxLfWXFpULm2TYi7RFWd aFxaQcKsPO60OHD7MAKfyr VjP3SlGROu tXhwHkA2z1U2Xz5AN0IICo bcH0LQTWTVVDnqdSP+PC90 mh87C9JaWvzbMpk0NLXbWQ K2pNN5uM9h OTTqOWkyb3O0oHI8M6Ktwu Oxtb9pj4bbZJIzVWboA77m oJXtg6J7EKImqIU5BLCmbH osAtFouM70 Oyc+GNOutXctz1OzGzehm9 ayb9rniZf7IdroBRXimaAp wTocGFJ8n7DzDp8fFQFaoV W0eEX9gU1o FrMoMvE7AVycI062SvRbaY KtIyxcV83fS3XefQU+PHRy Zwf6GFZqsTrqTR7xX5UgDP RpbmctbGVm sTleER9uSHBbhhozTDLyvZ 5gULNhN4b5OzQiAqU0BAcn U4GxADFqzsjgYx24rI5bZj ZxAnT7SZto Q3VakrZ6ERLkdGZcTXqvWY G4M74lt1Z7LKMrESMdHBY1 tZC2tM0ktDrcxquouEQqrV sgdmVydGlj KXnaZXykP455GJNtqJqsWu NvZGluZyBEYXRlOiAgMDgv MzAvMjAyMzwvdGQ+PHRkIH Y0jYtuDXWi dSRlWJsoWn1yvYtlbXfkZA 9yVKMbqmvuMEVmcB1bMDJh gLXzkObxUD4wEIBryiqhd2 29XaMxEZE5 QKZocXWbB1RiyN5bVgQjFE EgJLJaA0KhhOBxAGwzH369 KCusSeB8MSScnsEwP5DkVD FsaWduOiB0 f1S6Vk3Dv8NiobpiD1RfzK OeSeFjDqrrUEw0I3BxDwvt dHI+RY65FTBiFR44SLq7SZ S3eFbdGZme AQUjT2UrjG4nQxVlMIVdQC RkOyc+PHRhYmxlIHdpZHRo SMbgTIHjGmYfvBaqOX5iUt 9yZGVyLWNv aToagSUvRbRhw7erWBYlTA dsLD9ifRavF9PlcMN9ZHFs y7x7Kw52J81zI8BkoYA+PG PgoEJ2uGO9 pK2gGeLrOrL0CAnpE063Aj LtxWQdKppkb4kjb4yxxVm9 XgN0BINrbuLbiIzmWTX9v9 FrLq27Y77v IHdpZHRoPSIxNSUiIHZhbG mpxx3vvT4iHd9+PGNvbCB3 eGP8iF9cQdOaIhK2LJhaC5 49InRvcCIv Poepz8nez4ybwWc7YcPiMF RidjMesLjxRNY1b4MpXj87 B4CbmAybq1TfAbv1qv79kW Vln4O8yQG1 F0RcRIOncxsszYHyfZwhFF 7cYPJqnwyuVVYxpI3mVNTy Y1b8BpCiLsF1JRvqN9Cgdm T0PHYkyOQe FZIurYPObS1sbnfqh1ksgq qiNqPjQCBhLHs8WEp5BPFu tSqcJwMqKTO8FwS9YUP8rD YpjU6cuHfw lmitlA1rFpp+HLA6wPUafF LMSE7zHnjpjVE+PHRkIHN0 cYkjNWgoIOVphH7xJBZmZ6 s1CkLnHnA4 LCunN4RdovX2KTXreKIzES CceDWZmO5djagnc5mapaqe VgEfHSCdPNg6RCk7LEMjwR duOiBsZWZ0 UpO4GGE3ePRmyQ4gkKotze xqlZ3dGnw+QmlydGggRGF0 IQo4G3ZrKra6UYQflKrkFT 0ncGFkZGlu Qx0mwYiotGglVV1vFFVmhj yjb579KoLzd0kgWEFupRLg DHpcMXZ8I09um4E6TNLsVX KqQWP8nGS6 cW0lcNupllpynSIkxFnygd HpvSfvXAwlYUmtG608ZACt tWyyDpLwEQt8A5EtRir1BC VrnHlyNI4y pGWpBMaxQg2mkCxcsKbeMI 2tAHDpbmycb303OgFrp4dn PXGxkUHaIIhtUXS5M04we3 K6BXFnTRTx SHO8hZU1mN1voXeefszudN VmdDsgdmVydGljYWwtYWxp F710LPWehGhgLuOxwNj9E8 XoKaw2JIJv sXhzAH5lrJNhJOcfRb4gzB hgqQqjIJ9lROAdrsjxn187 GrGnp6ktAHDguOAgUXcpIN S0Q00no0U0 HTWgFOGzHRO6gGU9qC2coJ lnbjogbGVmdDsgdmVydGlj UYfgBKwkM330CVDxuGcpAi BhdGllbnQg QGkdRXq8U1VlRdzvvHV+PC 72BFNbUW41eHFpaLHbn2wb iUu6SwGeHAIkVOX7qGseFP scm6HbLHWn X32uaCNxx8R9QMPcfVeriQ QrBaJzyUL7uI4lGVhgvrtv f7wjblhcJgrwq6hjeu67iQ 40Z95lPIqc ZHRoPSIzMCUiIHZhbGlnbj 9nlK0tSj3+QEQefLM7xQC1 gB7tELHzQjX5AOtdV828Uf RvcCIvPjxj v8jal6rnjEy4RxS3ZVOujj HigXjjKHM6b3IaEz60R65g IHdpZHRoPSIyMCUiIHZhbG hsra4pzY6e Ii8+ULWbzOZ0yXT5eX2tRu UySmB1RKzlJ559YxIkaVEz OjqdS63eO2PavTG+PHRyPj y4HQDuoCbq KH8ptKPeVSfqTc8lQQG7Mf KiEmXbJJtmZ1XrNSQjinpj uplnyIR9CGWfMONhwN12Zg 9udDogMTBw vRVQjR6vhlhsa1kykajpSi YvGAQyZXu4WLn9BWDzaLrd IrUqMWO7DbF3HQG1oDRdnK 1hbGlnbjog nN8rX1UhMIZwolctNi45eX 9pErWbTdN4ZMzxJgz+U0NI RVJGLCBSQVkgQVJUSFVSPC 43PP04rCQf s9N9zTQ0L6ImYCNoqbbfdm vpfUO3IYXwRFBjmT64lXGu DZtdXm4ju6P2e192LLEkKA PvlO98Cm2t xTwnNHUclTWOiJ7yhvnvn0 dlanjaYpMtBJBuMPp7SEu4 BBOtlZxeVmKpPQS3QuY2UE M0jHNupP5b iEqdmhengA2kGet+MDEvMD IjNXe3KlahoRX+PHRkIHN0 kScaLGsqKETwnQ0nXVDrA0 m1CaRpOkJ2 QDsoR2MrKTWkjkatHd94zS 3aHeTfUgA1SUjdX7JkzcI4 QURfzMYkKFmdHUA3P27nu1 D8LENqCWUe ERX4bDY9tK6cyQjeysjftT VmdDsgdmVydGljYWwtYWxp A415RIDgzEjpKvuwJVxfPB HsJQ10GF83 eKQdg2A6xKP9Y1ShUWIazl rxijeuhEA2FHHgDCBivV05 qWWgVSfsSj5zz8W9f110JA WoRLJkiU36 Rg8paCboZJIaoTEXqF5ozf dhi6xiwkiaQoCiFLBhDTs1 ZHt8BYOpsIatTfJuKTF2Lg K7RNV7zCCp bV8hpRkxnaayqF2hFso+TU FMRTwvdGQ+IFOcAMS8dCcb IWbgNFQsfX7lBKLaW2v1Ye ZzNtA1PZli L9UyCDIypwsjUd57fO5rZv LvPwA0MSsdH1NxjsT2TZYu dRJzQZnbVZI7C40wm5X3OX MwMDAwMDA7 vRF2tX1kjAdyvmweqGCmeR eqvlMiyLfuGLvqZWhsD747 YSTahJuxXe3RNQ75PP78P1 RyPjwvdGFi bGU+PHRhYmxlIHdpZHRoPS puVESmOyHijKssFR2lTj7s ZGVyLWNvbGxhcHNlOiBjb2 xsYXBzZTsg XP8fyQyaX2KnfDI5IJKgn8 a0Eu97D11lY6IfpWI+PGNv gTR9bCE3uG4oLgEuIaH8NQ gbT813EuYd hPFoHqqbw6pni5eeoZx5Av HuFTTkpqKjuWjaTUO0v6Kq Bi91A80fFGpnMQWeILZrOP UiIHZhbGln mh3yxY4wVl1+HSAhsVI3vA Y1iH7dWqSzQlJ7OWlgW981 QjKkjWVkFyrhH57gM7NexD A+PHRyPjx0 AZWncVvcRE5zwIZjKUabGe 6xVGG7XkUaPqCmYMkdC6Hv GSDpeyiocdtcvLJ7AHDfDG MvoA27Rj9n cWrmFg3dUEWzKHH4LRTzyB XvM8KmtV6cZoJnKOPjNZHh Q1LolWYmEJmwS740BInmAi Q8FDZtvfGw G0QmFCVkeLoaYrH1e7Y5Mg 8PwZsvcZMcZZ2mKvTsCIz6 J2FgZzq0BKZosLnvFT1bxU FnYZurYy7e nQvzfJysYU1xTAEckbmki0 96RkKsj3txNIQlcYJjGUoy MGG0X06ko8C4BEAmRAUiHD W6wBW9fK1s bGlnbjogbGVmdDsgdmVydG rcPPauADipB101CXQjxAbb OyXYSqc4E1AkEha1RXSefN bbZF3bnMRv ELfsZc5ijSbugKevSC0tXG Somrqkm570PoEzz0ofAWWk nPPrTWhkMNP1O14ao6T4BY MwMDAwMDA7 uDX6eL8pfUxqxebmwWLcnC jqciSkwGtdGUghPGxeH192 BUYfcUbfGk7UDdf8Y0XnZb r9HNAfeFqr BG5yaMKuALzdKp8kaTobgQ rpHU6qBNSricahf129PcZz y6laJLBiuXShUIddTWE8F4 9pt3U3CILi MPFlYTY6oCZ1mP9pwPxlie ogbGVmdDsgdmVydGljYWwt QOsgP169FSRxmYvlErIuuM VyOjwvdGQ+ TF40yc01H2LjVrmzHjo7SY VoGRD3uAO7gL9iCIMoFImu j6J9kFZ0Q1KaffUqff8rr1 xsYXBzZTog Y29 (more content not included)... Normal [facility] Office/Clinic Noteon 29- 023 Office/Clinic Note Patient: RICHARD BOYKIN Age: 82 years Sex: MALE : 1940 Associated Diagnoses: Impacted cerumen of left ear Author: Marj Sorensen MD A History of Present Illness 82-year-old male presents today with diminished hearing in his ears bilaterally but left greater than right. He does have a history of cerumen impaction in the past. Denies any pain. No drainage. No dizziness. He has been putting topical drops in his ears the last few days. Review of Systems Constitutional: Negative. Ear/Nose/Mouth/Throat: No ear pain Decreased hearing: Bilaterally. Respiratory: Negative. Cardiovascular: Negative. Health Status Allergies: Allergic Reactions (Selected) No known allergies, Allergies (1) Active Severity Reaction No known allergies None Documented Current medications: (Selected) Prescriptions Prescribed [employer] brand glucose test strips: See Instructions, test blood sugar one to two times daily, 100 Strip, 0 Refill(s) Singulair 10 mg oral tablet: 10 mg = 1 tab(s), PO, Once a day (at bedtime), 90 tab(s), 3 Refill(s) allopurinol 300 mg oral tablet: 300 mg = 1 tab(s), PO, Daily, 90 tab(s), 3 Refill(s) fluticasone 50 mcg/inh nasal spray: 2 spray(s), Nasal, Daily, 3 EA, 3 Refill(s) glimepiride 4 mg oral tablet: 4 mg = 1 tab(s), PO, BID, 180 tab(s), 3 Refill(s) levothyroxine 50 mcg (0.05 mg) oral tablet: 50 mcg = 1 tab(s), PO, Daily, 90 tab(s), 3 Refill(s) pantoprazole 40 mg oral delayed release tablet: 40 mg = 1 tab(s), PO, Daily, 90 tab(s), 1 Refill(s) rOPINIRole 2 mg oral tablet: 4 mg = 2 tab(s), PO, Once a day (at bedtime), 90 tab(s), 3 Refill(s) Documented Medications Documented Calmoseptine topical ointment: 1 josé, TOP, As Directed, PRN: Other (see comment), 0 Refill(s) Eliquis 5 mg oral tablet: 2.5 mg = 0.5 tab(s), PO, BID, 60 tab(s), 0 Refill(s) Jardiance 25 mg oral tablet: 25 mg = 1 tab(s), PO, qAM, 0 Refill(s) Lotrimin AF 2% topical spray: 1 spray(s), TOP, BID, 133 gm, 0 Refill(s) Metoprolol Tartrate 25 mg oral tablet: 25 mg = 1 tab(s), PO, BID, 180 tab(s), 0 Refill(s) Multivitamin, generic: 1 tab(s), PO, Daily, 0 Refill(s) Toujeo SoloStar 300 units/mL subcutaneous solution: 10 unit(s), SubQ, Daily, 0 Refill(s) Tylenol 8 Hour 650 mg oral tablet, extended release: 650 mg = 1 tab(s), PO, q8hr (int), 0 Refill(s) Vitamin B12 1000 mcg oral tablet: 1,000 mcg = 1 tab(s), PO, Daily, 0 Refill(s) amLODIPine 2.5 mg oral tablet: 2.5 mg = 1 tab(s), PO, Daily, 90 tab(s), 0 Refill(s) atorvastatin 80 mg oral tablet: 80 mg = 1 tab(s), PO, Daily, 90 tab(s), 0 Refill(s) furosemide 40 mg oral tablet: 40 mg = 1 tab(s), PO, BID, 0 Refill(s) hydroCHLOROthiazide 12.5 mg oral tablet: 12.5 mg = 1 tab(s), PO, Daily, 0 Refill(s) lisinopril 2.5 mg oral tablet: 2.5 mg = 1 tab(s), PO, Daily, 0 Refill(s) loratadine 10 mg oral tablet: 10 mg = 1 tab(s), PO, Daily, 30 tab(s), 0 Refill(s) nystatin 100,000 units/g topical powder: 1 josé, TOP, BID, 0 Refill(s) traMADol 50 mg oral tablet: 100 mg = 2 tab(s), PO, TID, PRN: as needed for pain, 0 Refill(s), Home Medications (25) Active allopurinol 300 mg oral tablet 300 mg = 1 tab(s), PO, Daily amLODIPine 2.5 mg oral tablet 2.5 mg = 1 tab(s), PO, Daily atorvastatin 80 mg oral tablet 80 mg = 1 tab(s), PO, Daily Calmoseptine topical ointment 1 josé, PRN, TOP, As Directed Eliquis 5 mg oral tablet 2.5 mg = 0.5 tab(s), PO, BID fluticasone 50 mcg/inh nasal spray 2 spray(s), Nasal, Daily furosemide 40 mg oral tablet 40 mg = 1 tab(s), PO, BID glimepiride 4 mg oral tablet 4 mg = 1 tab(s), PO, BID hydroCHLOROthiazide 12.5 mg oral tablet 12.5 mg = 1 tab(s), PO, Daily Jardiance 25 mg oral tablet 25 mg = 1 tab(s), PO, qAM [employer] brand glucose test strips See Instructions levothyroxine 50 mcg (0.05 mg) oral tablet 50 mcg = 1 tab(s), PO, Daily lisinopril 2.5 mg oral tablet 2.5 mg = 1 tab(s), PO, Daily loratadine 10 mg oral tablet 10 mg = 1 tab(s), PO, Daily Lotrimin AF 2% topical spray 1 spray(s), TOP, BID Metoprolol Tartrate 25 mg oral tablet 25 mg = 1 tab(s), PO, BID Multivitamin, generic 1 tab(s), PO, Daily nystatin 100,000 units/g topical powder 1 josé, TOP, BID pantoprazole 40 mg oral delayed release tablet 40 mg = 1 tab(s), PO, Daily rOPINIRole 2 mg oral tablet 4 mg = 2 tab(s), PO, Once a day (at bedtime) Singulair 10 mg oral tablet 10 mg = 1 tab(s), PO, Once a day (at bedtime) Toujeo SoloStar 300 units/mL subcutaneous solution 10 unit(s), SubQ, Daily traMADol 50 mg oral tablet 100 mg = 2 tab(s), PRN, PO, TID Tylenol 8 Hour 650 mg oral tablet, extended release 650 mg = 1 tab(s), PO, q8hr (int) Vitamin B12 1000 mcg oral tablet 1,000 mcg = 1 tab(s), PO, Daily Problem list (past medical history): Active Problems (11) Acquired hypothyroidism Afib Chronic renal insufficiency Degenerative arthritis Gout History of psoriatic arthritis HTN (hypertension) Hyperlipidemia PAD (peripheral artery disease) Thoracolumbar back hugo (more content not included)... [facility] Outside Recordson 02-03-2023 Outside Records [id number] [facility] Coding Summaryon 01-27-2023 Coding Summary [facility] MognogglHIa0yOt+PGhlYW Q+DK3LCBYhL62apLNmsB4w A3FIZVqZCkpxVJMLAFcOCx DehcNmXG0zlMRbEYAz IC8+SZ0fOVOiCotlgJVcs2 K6aRI9C02ggk7lPCltiIJ4 HUOxSiTmtjgse2szmBn7PT cuNmluOyBt XZHzqO48HBD0oK20Ji72rA ImuXTmd5unpDd1NhDwZTXk GBW2uMqqGAfuy9KsLLVfG7 3utIJlx0B0 OHEyqQolfAWkOwXukYU3eN 3fOMewglfou7kxayspWmi0 qk82qAEtj3K5fGD4S5Jmoc Q7GBWuzCNr VyjalEPTkT3fokecn7djkz afNkEvHAGfYUc3TAz1SCSj gXopUkEbOS89SZZ5XFBejf AzP9SiECZa tAhcZvV9m5G9Bi6XC8RSRu wfJ6CKRGNMUMlmwPS+PC90 wa35X1BkTbivVgl2IBMpSP P3bTS6yQ6h KMAsVAshu0D4lLE0R2Hblr Xtuq5hu7gfOJOeEUkaU38z xJHli9L8WOVxeKU1CFVhuQ mfChXscM85 Oyc+IDBbkPzzh7NnVumun6 fab3uvrRq8VwhjQWQssuLj pUcxNTP6n8HbGr3vECGvrT Q4qYA2zP5s PdMzMeD0JTdsW560FwNrnU LnMlspV40wA1CigSM+PHRy Jnf1JWUzfOhfVU8wD2IsHX RpbmctbGVm mPosGI9dRDWqqjgrUVCtiL 4tTSOvH8e1AlFqWdK2YQit G4OzZJUeqkmqVs19nB0vYu AzQtQ7FVmf O8NueaE1ZJZrvPMfDYvqPM S1X65tg0U2MVOzARNoAHD6 vVN2fX0ahUblewdrqLUkvD sgdmVydGlj PIdyOVltC374TRBtxOicOt NvZGluZyBEYXRlOiAgMDgv MTEvMjAyMzwvdGQ+PHRkIH W0iIgjZJRb xZPzXSpeVu3bwHkkgIdiFZ 5lOEOkqnbgMKRxyN4nBJQo pVLcrZgoFP9vGVXsgcnso8 04QsLvWCZ1 OLUsvKGkG9HfuU0hCdJvSL KiOBFsX7JwtJZnPEizP775 WElpJqM7UJDqfyFmW8TyRP FsaWduOiB0 k9W7My7Jo2XozrylN2CxfE XuMiFyMvtgZNj9X8CsYdue dHI+TO12NMFrHG49ONf9ZP W3uWmlWGmg ZJPxV6DkjW6vCnCcDWDjOU RkOyc+PHRhYmxlIHdpZHRo FTukUWUdDoHrwBafHI1xYb 9yZGVyLWNv iFzrqQXnTqUoy3nlRHMvKS bkQI2auWovA0UeyLS0GOEb w4s1Gx19K18zM1HsqKZ+PG SffCJ6eXP8 sW4zRxHlEyY1QDdpL907Yt UtqNGyMdgdu2ele2iujBa4 GqO8TPEbjnWaqBohKRW9z8 VzWw40L11e IHdpZHRoPSIxNSUiIHZhbG mrnr0ptH3pVo5+PGNvbCB3 mTS0gX2rBcJjFsT2ZCegN0 49InRvcCIv Zhhuh7qgz3madUu7UeZkUQ TtdyFiqDywRCF8c0GiYa99 T2ZmxOeex5KqTam6cu30gW Sgn7R7mTT1 L6RhASDltpzfgDNmxBovUW 3sYAQdvqibWFNsdA0eNZIp T9o3LzDvRyK3FOxuK9Yprx D6HCMxqBRk YHRmbNVTnU2rklpuy7lpca yzCcNiNAXiWPm4CFk6GOKe hQwoIkNsVIM9MhJ6AHW7uB GwkE3drMlj isdrmJ7wBin+CAA5sWLsmT CPGG9lQoldaOS+PHRkIHN0 eVygBEspYAIuoS9uDTYeA3 s1FpFiXpB9 BEvkF1QdbbX4OARqnKDtAC ZcpSMNfA7fuwykk0rtmjdr IfVxFGGnADo0HLy5BZXhxJ duOiBsZWZ0 BrS1EHN6eHPhcZ2vpMgscw scgS1qZqo+QmlydGggRGF0 AHt6F9UeGxl5HVDzfSzuOC 0ncGFkZGlu Na7htTrndGzlHN4oUQQkrt kby915WvWga1ytSRVyeOWv IVwkNEJ7U45db8W8MMQjJJ KnHOT2kIH0 kK8yoVcxgcjujGNxxVfdxn SceKefDNjpPQgaG847HHEc dTxbBsExQTv4K6XhNgg0SN JftZccAX7r zPExPZgpMi3wnBolpVgfVA 2yZFXqpjmok762KmKqb0ft GXKnqNBsFPyvZZN5B48el4 T2DJIiWLAj TMB2oLH2yA1bjVtnmnytzQ VmdDsgdmVydGljYWwtYWxp V147BBZqsFqnDfYwbYt8E6 YbWyz0QJZh dNsnNK7lyDMpYCpiCu5vdY nkiEilQQ1xNHNpjghzr589 JxLdn5wsVVVucBGiQJajZP A4U26dh9L4 QIOrQWLgIML0nET5iX7vhX lnbjogbGVmdDsgdmVydGlj ZXorUNhvW188CUQhiRiiCg BhdGllbnQg FHuqRBx8L3KpGxvgjUN+PC 46HORqSM93sBFmsVNwe1ws iPm8OyAeJKJpDCH5pDwrMM lbe7PeYHGo P73utPOuy9E7FPOjjCcrzJ RtTsKgkCI0cV3vOWpbxtzl f9qadisfJsimd8ewew70aY 01O98xLXht ZHRoPSIzMCUiIHZhbGlnbj 6puE2zXv0+KZOswRM5aNT8 tO4xRMDoCrP4PUucL842Wv RvcCIvPjxj h1noe7pkoCy0OwN4ZTCeqi GgnLhfQCQ2i1SwXo82T93z IHdpZHRoPSIyMCUiIHZhbG viqm4veD6y Ii8+UFRfdMY0aCU3jI1ePp BxQgH3DFehH933GlInrUFy FwscW00aL1YibHV+PHRyPj r1ADTypObo AI1ynQCwBJwjZg2sJTD5Se EpYgWbQLmtG1NsIOJuymcd olzjfQP1PHLcRQTunR28Wd 9udDogMTBw cSCPcV4wiftbh9yhudunWv EvBFGyXFv1NWc8CXWjmSgj SbIvAAK2IlN8FVC9tAHmuI 1hbGlnbjog yO5lM6FpUCZqyktkOk81eE 9rWrMzYhV9INwiHrc+U0NI RVJGLCBSQVkgQVJUSFVSPC 50WQ30lOKt e6T5qBD4B8WpERBawgccpk pbiZN8KWPpNKMgbF67gNSi TIujIm8ki6O3g298QSXsHF QhqN16Mx0a pUcjBTVuyLKXoJ0xrapeo0 acrlqqKxYoCXPxJDg8QZa2 CILbmLwhTrMaKJD9BvK9UJ N8fUDxiI3x dRpyzjfkiJ7cEpp+MDEvMD PbJLs4MeepfNE+PHRkIHN0 wZzcQSfzIIGypW7pGZFvE3 t1GzSnKkO5 KAsyE0KzVKTzdtsnQg76cH 6cLgFoNpY1KNgxD7KmqyN6 HCIahLHkSEeqLHW3Y28ff2 Q1HTGgAVFa ZTS7eUQ5zC3hvPlenzugqX VmdDsgdmVydGljYWwtYWxp V350LTPaqFijTmrbOHntPD EkZC79WF05 sNLsq3Y8oDB9Q3QwSEAiew ljyodzjTI7YCJzEYXlxH58 nFBlWJpvSv1aw2B6c790VL ZnRCCkbX59 Up9sbNceOFQgvXHYeR8vld efy5nruzlcRuWlZOJdRMg2 TOv5TNFqkFolPdSlYYA4Zi T5MAL0xQOg cL7njRrwbwpghW8zWyn+TU FMRTwvdGQ+GWVmJZO9xTxe KGpyKVKsvH4uSYCaB4u5Uq ArPkI9RMoh K1JbBOQootxzFy77nE0nTp TmRiC3LYdhV6MvzuD7DOWn qIEdXJefEIC6L00qi9Y5KJ MwMDAwMDA7 sFZ1tG2ukZdtmpuqbFEsfZ pgcmVtrIrrUUcpTIcaL830 HJShhRuzMs0INY90JP61W7 RyPjwvdGFi bGU+PHRhYmxlIHdpZHRoPS hsVUFbOeShlDczZQ9oDb8r ZGVyLWNvbGxhcHNlOiBjb2 xsYXBzZTsg QX5iwEhdZ2DycSB6KNPtg0 g2Ff45W17wH2RinAG+PGNv oZZ2yGW8tD0lMdFkMaA1DV nwJ721YlEr zJZmZxurn1six4eylKq2Ae UmVRZrxiJruHzvKHN6e8Sp Ov27R17sNNrvVLSzBRHbYB UiIHZhbGln lu9zsX8eXm0+HLMzyWM5mP G0fV5pCmMgDzD7YBniG081 WwGjjNAtRpebV56wF3WqgJ A+PHRyPjx0 KHJshKcuIA0tqKHkZFcmPi 1hFXO1ThKdArVyMYmjM1Yw CIMmieoaoswifNQ1OLTzBO MqyN95Vm1s fXzuUc4fFKScAUP8MJJkgP AlP0OgnK9gTrRhDDIqGPXr O9FmyHBeFRkrI277TPnyIp F8MUEduyXg E5YfCXOgwTblWbB5y8U5Jd 5FaApfnDBhLV8gQtZcFGh0 C1RiVgg4EUCwvVggHC5wuP KwJSxuJl1a bMiruWvaAP7zCDJbfakyq0 64NiDnv3bvRFAthPZgBOck EFK5D30fm8L2ZQNpPVJmSH H2mQZ3pF8a bGlnbjogbGVmdDsgdmVydG omFQucLTueW062IQRxtRvw RjYFGhu3V9UrPqu4BKMrxQ vlOK8emVJp GLxmDn9uvOjjdFerQO9aTO Lxhucwl686DnWno0srKBRd kHNoVCwuVKX9C46gz8X7FD MwMDAwMDA7 iZY6oA8caYiwdafhkAAjaS fvpaOzhZhvGMioSNzeA146 PKZisZjtEq9DOab0Q6ZoNu o4CUZhbKsb OP6lbVIcDWzqSq5ydRpamV uwAI4rSBVczgmbc054VtDm h7zaKWPqkAGlAFfbRFS3M4 0pa1D5KXSg HGKnIRY3lAF0cH5dtZqvol ogbGVmdDsgdmVydGljYWwt STbgN871DXMdvQhqVlVozJ VyOjwvdGQ+ QJ36ko76L0PjNhjhBhb6GR PkVEN3mHR9sM4rHKQuPZrd d1D2mIF6N1TkypLumi5jg7 xsYXBzZTog Y29 (more content not included)... [facility] Office/Clinic Noteon 023 Office/Clinic Note Patient: RICHARD BOYKIN Age: 82 years Sex: MALE : 1940 Associated Diagnoses: Conjunctivitis; Impacted cerumen, bilateral; Diabetes Author: Marj Sorensen MD A History of Present Illness 82-year-old male presents today with complaints of foreign body sensation in his right eye. He states he has been doing a lot of woodwork and is not sure whether he had a piece of wood in his eye. No change in vision. For few days he was waking up with his eye matted shut. It does not feel as irritated today. He did not wake up with his eye matted shut this morning. No sensitivity to light. Review of Systems Eye: Negative except as documented in history of present illness. Health Status Allergies: Allergic Reactions (Selected) No known allergies, Allergies (1) Active Severity Reaction No known allergies None Documented Current medications: (Selected) Prescriptions Prescribed [employer] brand glucose test strips: See Instructions, test blood sugar one to two times daily, 100 Strip, 0 Refill(s) Singulair 10 mg oral tablet: 10 mg = 1 tab(s), PO, Once a day (at bedtime), 90 tab(s), 3 Refill(s) allopurinol 300 mg oral tablet: 300 mg = 1 tab(s), PO, Daily, 90 tab(s), 3 Refill(s) fluticasone 50 mcg/inh nasal spray: 2 spray(s), Nasal, Daily, 3 EA, 3 Refill(s) glimepiride 4 mg oral tablet: 4 mg = 1 tab(s), PO, BID, 180 tab(s), 3 Refill(s) levothyroxine 50 mcg (0.05 mg) oral tablet: 50 mcg = 1 tab(s), PO, Daily, 90 tab(s), 3 Refill(s) rOPINIRole 2 mg oral tablet: 4 mg = 2 tab(s), PO, Once a day (at bedtime), 90 tab(s), 3 Refill(s) Documented Medications Documented Calmoseptine topical ointment: 1 josé, TOP, As Directed, PRN: Other (see comment), 0 Refill(s) Eliquis 5 mg oral tablet: 2.5 mg = 0.5 tab(s), PO, BID, 60 tab(s), 0 Refill(s) Jardiance 25 mg oral tablet: 25 mg = 1 tab(s), PO, qAM, 0 Refill(s) Lotrimin AF 2% topical spray: 1 spray(s), TOP, BID, 133 gm, 0 Refill(s) Metoprolol Tartrate 25 mg oral tablet: 25 mg = 1 tab(s), PO, BID, 180 tab(s), 0 Refill(s) Multivitamin, generic: 1 tab(s), PO, Daily, 0 Refill(s) Toujeo SoloStar 300 units/mL subcutaneous solution: 10 unit(s), SubQ, Daily, 0 Refill(s) Tylenol 8 Hour 650 mg oral tablet, extended release: 650 mg = 1 tab(s), PO, q8hr (int), 0 Refill(s) Vitamin B12 1000 mcg oral tablet: 1,000 mcg = 1 tab(s), PO, Daily, 0 Refill(s) amLODIPine 2.5 mg oral tablet: 2.5 mg = 1 tab(s), PO, Daily, 90 tab(s), 0 Refill(s) atorvastatin 80 mg oral tablet: 80 mg = 1 tab(s), PO, Daily, 90 tab(s), 0 Refill(s) furosemide 40 mg oral tablet: 40 mg = 1 tab(s), PO, BID, 0 Refill(s) hydroCHLOROthiazide 12.5 mg oral tablet: 12.5 mg = 1 tab(s), PO, Daily, 0 Refill(s) lisinopril 2.5 mg oral tablet: 2.5 mg = 1 tab(s), PO, Daily, 0 Refill(s) loratadine 10 mg oral tablet: 10 mg = 1 tab(s), PO, Daily, 30 tab(s), 0 Refill(s) nystatin 100,000 units/g topical powder: 1 josé, TOP, BID, 0 Refill(s) pantoprazole 40 mg oral delayed release tablet: 40 mg = 1 tab(s), PO, Daily, 0 Refill(s) traMADol 50 mg oral tablet: 100 mg = 2 tab(s), PO, TID, PRN: as needed for pain, 0 Refill(s), Home Medications (25) Active allopurinol 300 mg oral tablet 300 mg = 1 tab(s), PO, Daily amLODIPine 2.5 mg oral tablet 2.5 mg = 1 tab(s), PO, Daily atorvastatin 80 mg oral tablet 80 mg = 1 tab(s), PO, Daily Calmoseptine topical ointment 1 josé, PRN, TOP, As Directed Eliquis 5 mg oral tablet 2.5 mg = 0.5 tab(s), PO, BID fluticasone 50 mcg/inh nasal spray 2 spray(s), Nasal, Daily furosemide 40 mg oral tablet 40 mg = 1 tab(s), PO, BID glimepiride 4 mg oral tablet 4 mg = 1 tab(s), PO, BID hydroCHLOROthiazide 12.5 mg oral tablet 12.5 mg = 1 tab(s), PO, Daily Jardiance 25 mg oral tablet 25 mg = 1 tab(s), PO, [facility] [employer] glucose test strips See Instructions levothyroxine 50 mcg (0.05 mg) oral tablet 50 mcg = 1 tab(s), PO, Daily lisinopril 2.5 mg oral tablet 2.5 mg = 1 tab(s), PO, Daily loratadine 10 mg oral tablet 10 mg = 1 tab(s), PO, Daily Lotrimin AF 2% topical spray 1 spray(s), TOP, BID Metoprolol Tartrate 25 mg oral tablet 25 mg = 1 tab(s), PO, BID Multivitamin, generic 1 tab(s), PO, Daily nystatin 100,000 units/g topical powder 1 josé, TOP, BID pantoprazole 40 mg oral delayed release tablet 40 mg = 1 tab(s), PO, Daily rOPINIRole 2 mg oral tablet 4 mg = 2 tab(s), PO, Once a day (at bedtime) Singulair 10 mg oral tablet 10 mg = 1 tab(s), PO, Once a day (at bedtime) Toujeo SoloStar 300 units/mL subcutaneous solution 10 unit(s), SubQ, Daily traMADol 50 mg oral tablet 100 mg = 2 tab(s), PRN, PO, TID Tylenol 8 Hour 650 mg oral tablet, extended release 650 mg = 1 tab(s), PO, q8hr (int) Vitamin B12 1000 mcg oral tablet 1,000 mcg = 1 tab(s), PO, Daily Problem list (past medical history): Active Problems (11) Acquired hypothyroidism Afib Chronic renal insufficiency Degenerative arthritis Gout History of psoriatic arthritis HTN (hypertension) Hyperlipidemia PAD ( (more content not included)... Normal [facility] Office Visiton 10-21-2022 Follow-up visit [id number] Richard Boykin 1940 M Date Provider Department Center 10/21/2022 DOTTIE WARNER [facility] Family History Problem Relation Age of Onset Stroke Mother Valvular heart disease Father Family Status - Relation Status Age at Mother Father Level of Service:76957 MS OFFICE/OUTPATIENT ESTABLISHED MOD MDM 30-39 MIN Reason for Visit and Comments: Atrial Fibrillation [80] Congestive Heart Failure [127] Valve Disorder [3372] Hypertension [959495] Normal [facility] BNPon 03-26-2022 Natriuretic peptide B (Bld) [Mass/Vol] 629.0 pg/mL Normal <=1,800.0 [facility] Comment on above: Performed By: #### B MP, TSH, BNP, LIPID #### [facility] [address] [address] [address] Aaron Ling LIPID PROFILEon 03-26-2022 CHOL-HDL RATIO NORM SEE BELOW Normal [facility] Comment on above: Result Comment: 3.3 - 4.4 LOW RISK 4.4 - 7.1 AVERAGE RISK 7.1 - 11.0 MODERATE RISK >11.0 HIGH RISK Performed By: #### B MP, TSH, BNP, LIPID #### [facility] [address] [address] [address] Aaron Ling Cholesterol [Mass/Vol] 212 mg/dL Critically high <=200 [facility] Comment on above: Performed By: #### B MP, TSH, BNP, LIPID #### [facility] [address] [address] [address] Aaron Ling Cholesterol in HDL [Mass/Vol] 86 mg/dL Critically high 40-60 [facility] Comment on above: Performed By: #### B MP, TSH, BNP, LIPID #### [facility] [address] [address] [address] Aaron Ling Cholesterol in LDL [Mass/Vol] 98.4 mg/dL Normal [facility] Comment on above: Performed By: #### B MP, TSH, BNP, LIPID #### [facility] [address] [address] [address] Aaron Ling Cholesterol.total/Cho lesterol in HDL [Mass ratio] 2.5 {ratio} Normal [facility] Comment on above: Performed By: #### B MP, TSH, BNP, LIPID #### [facility] [address] [address] [address] Aaron Ling HDL NORMAL > or = 60 mg/dl - LO W CARDIOVASCULAR RISK <40 mg/dl - HIGH CARDIOVASCULAR RISK Normal [facility] Comment on above: Performed By: #### B MP, TSH, BNP, LIPID #### [facility] [address] [address] [address] Aaron Ling LDL CALC NORMAL SEE BELOW Normal [facility] Comment on above: Result Comment: <100 mg/dl OPTIMAL 100 - 129 mg/dl NEAR OR ABOVE OPTIMAL 130 - 159 mg/dl BORDERLINE HIGH 160 - 189 mg/dl HIGH >190 mg/dl VERY HIGH Performed By: #### B MP, TSH, BNP, LIPID #### [facility] [address] [address] [address] Aaron Ling Triglyceride [Mass/Vol] 138 mg/dL Normal <=150 [facility] Comment on above: Performed By: #### B MP, TSH, BNP, LIPID #### [facility] [address] [address] [address] Aaron Ling VLDL CALC 27.6 mg/dL Normal [facility] Comment on above: Performed By: #### B MP, TSH, BNP, LIPID #### [facility] [address] [address] [address] Aaron Ling PROF CHEM 8 (BAS METB)on Anion gap [Moles/Vol] 7.4 mmol/L Normal [facility] Comment on above: Performed By: #### B MP, TSH, BNP, LIPID #### [facility] [address] [address] [address] Aaron Ling Calcium [Mass/Vol] 9.6 mg/dL Normal 8.5-10.1 [facility] Comment on above: Performed By: #### B MP, TSH, BNP, LIPID #### [facility] [address] [place] [address] Dr. Aaron Ling Chloride [Moles/Vol] 94 mmol/L Critically low 98-107 [facility] Comment on above: Performed By: #### B MP, TSH, BNP, LIPID #### [facility] [address] [place] [address] Dr. Aaron Ling CO2 [Moles/Vol] 36.2 mmol/L Critically high 21.0-32.0 [facility] Comment on above: Performed By: #### B MP, TSH, BNP, LIPID #### [facility] [address] [place] [address] Dr. Aaron Ling Creatinine [Mass/Vol] 2.27 mg/dL Critically high 0.70-1.30 [facility] Comment on above: Performed By: #### B MP, TSH, BNP, LIPID #### [facility] [address] [place] [address] Dr. Aaron Ling EGFR-AF [place] 34 mL/min/1.73m2 Critically low >=60 [facility] Comment on above: Performed By: #### B MP, TSH, BNP, LIPID #### [facility] [address] [place] [address] Dr. Aaron Ling EGFR-NON AF [place] 28 mL/min/1.73m2 Critically low >=60 [facility] Comment on above: Performed By: #### B MP, TSH, BNP, LIPID #### [facility] [address] [place] [address] Dr. Aaron Ling Glucose [Mass/Vol] 214 mg/dL Critically high 74-106 [facility] Comment on above: Performed By: #### B MP, TSH, BNP, LIPID #### [facility] [address] [place] [address] Dr. Aaron Ling Potassium [Moles/Vol] 3.6 mmol/L Normal 3.5-5.1 [facility] Comment on above: Performed By: #### B MP, TSH, BNP, LIPID #### [facility] [address] [address] [address] Aaron Ling Sodium [Moles/Vol] 134 mmol/L Critically low 136-145 [facility] Comment on above: Performed By: #### B MP, TSH, BNP, LIPID #### [facility] [address] [place] [address] Dr. Aaron Ling Urea nitrogen [Mass/Vol] 48.0 mg/dL Critically high 7.0-18.0 [facility] Comment on above: Performed By: #### B MP, TSH, BNP, LIPID #### [facility] [address] [address] [address] Aaron Ling Urea nitrogen/Creatinine [Mass ratio] 21.1 mg/mg Normal [facility] Comment on above: Performed By: #### B MP, TSH, BNP, LIPID #### [facility] [address] [place] [address] Dr. Aaron Ling TSHon 03-26-2022 TSH 2.606 uIU/mL Normal 0.358-3.740 [facility] Comment on above: Performed By: #### B MP, TSH, BNP, LIPID #### [facility] [address] [place] [address] Dr. Aaron Ling B-Type Natriuretic Peptideon 01-19-2022 Natriuretic peptide B (Bld) [Mass/Vol] 749.0 pg/mL High 5-100 [facility] Comment on above: Order Comment: [phone] Result Comment: PERF ORMED BY: [place] [address] PATHOLOGIST STUDIO OPERATIONS MANAGER SERVANDO AKERS M.D. Performed By: #### B MP, LIPID, TSH3, BNP #### [address] Basic Metabolic Panelon 08-0 Calcium [Mass/Vol] 8.5 mg/dL Normal 8.2-10.2 [facility] Comment on above: Order Comment: [phone] Performed By: #### B MP, LIPID, TSH3, BNP #### [facility] [address] [id number] [facility] Chloride [Moles/Vol] 103 mmol/L Normal 95-114 [facility] Comment on above: Order Comment: Performed By: #### B MP, LIPID, TSH3, BNP #### [facility] [address] [id number] [facility] CO2 [Moles/Vol] 31.5 mmol/L High 22.0-30.0 [facility] Comment on above: Order Comment: Performed By: #### B MP, LIPID, TSH3, BNP #### [facility] [address] [id number] [facility] Creatinine [Mass/Vol] 2.03 mg/dL High 0.64-1.27 [facility] Comment on above: Order Comment: Performed By: #### B MP, LIPID, TSH3, BNP #### [facility] [address] [id number] [facility] Estimated GFR ( Ava 38 [facility] Comment on above: Order Comment: Result Comment: GFR estimated reference range: According to KDOQI guidelines, <60 ml/min/1.73m2 is sufficient to diagnose a patient with chronic kidney disease. Performed By: #### B MP, LIPID, TSH3, BNP #### [facility] [address] [id number] [facility] Estimated GFR (Non- Am 32 [facility] Comment on above: Order Comment: Performed By: #### B MP, LIPID, TSH3, BNP #### [facility] [address] [id number] [facility] Glucose [Mass/Vol] 99 mg/dL Normal 70-100 [facility] Comment on above: Order Comment: Result Comment: [place] om Glucose Reference Range is dependent on time and content of last meal. Glucose of more than 200 mg/dL in a nonstressed, ambulatory subject supports the diagnosis of Diabetes Mellitus. ADA recommended reference range Performed By: #### B MP, LIPID, TSH3, BNP #### [facility] [address] Potassium [Moles/Vol] 4.9 mmol/L Normal 3.5-5.1 [facility] Comment on above: Order Comment: 82 Performed By: #### B MP, LIPID, TSH3, BNP #### [facility] [address] Sodium [Moles/Vol] 142 mmol/L Normal 136-146 [facility] Comment on above: Order Comment: Performed By: #### B MP, LIPID, TSH3, BNP #### [facility] [address] Urea nitrogen [Mass/Vol] 50 mg/dL High 9-23 [facility] Comment on above: Order Comment: Performed By: #### B MP, LIPID, TSH3, BNP #### [facility] [address] Cholesterol [Mass/volume] in Serum or PlasmaOrdered By: Sweetie Tomlinson on 01-19-2022 Cholesterol [Mass/Vol] 259 mg/dL 140-200 [facility] Comment on above: Chol less than 200 m g/dl low risk Chol 201-239 mg/dl borderline risk Chol 240 mg/dl and greater high risk Cholesterol in LDL Calc [Mas s/Vol]Ordered By: Sweetie Tomlinson on 01-19-2022 Cholesterol in LDL [Mass/Vol] 142 mg/dL 0-100 [facility] Comment on above: LDL ATP III CLASSIFI CATION LDL less than 100 mg/dL Optimal LDL 100-129 mg/dL Near or above optimal LDL 130-159 mg/dL Borderline high LDL 160-189 mg/dL High LDL greater than 189 mg/dL Very high Cholesterol in VLDL Calc [Ma ss/Vol]Ordered By: Sweetie Tomlinson on 01-19-2022 Cholesterol in VLDL [Mass/Vol] 12 mg/dL [facility] Creatinine and Glomerular fi ltration rate.predicted panel (S/P/Bld)Ordered By: Sweetie Tomlinson on 01-19-2022 Creatinine [Mass/Vol] 2.03 mg/dL 0.64-1.27 [facility] Estimated glomerular filtrat ion rate (GFR) non- AmericanOrdered By: Sweetie Tomlinson on 01-19-2022 GFR/1.73 sq M.predicted among non-blacks MDRD (S/P/Bld) [Vol rate/Area] 32 mL/Min [facility] - Chemistry and C hemistry - challengeOrdered By: Sweetie Tomlinson on 01-19-2022 Natriuretic peptide B (Bld) [Mass/Vol] 749.0 pg/mL 5-100 [facility] Lipid Panelon 01-19-2022 Cholesterol [Mass/Vol] 259 mg/dL High 140-200 [facility] Comment on above: Order Comment: [phone] Result Comment: Chol less than 200 mg/dl low risk Chol 201-239 mg/dl borderline risk Chol 240 mg/dl and greater high risk Performed By: #### B MP, LIPID, TSH3, BNP #### [facility] [address] [place] [id number] [place] Cholesterol in HDL [Mass/Vol] 105 mg/dL High 29-71 [facility] Comment on above: Order Comment: [phone] Result Comment: HDL CHOL ATP-III CLASSIFICATION Cardiovascular Risk HDL > or equal to 60 mg/dL LOW HDL < 40 mg/dL HIGH Performed By: #### B MP, LIPID, TSH3, BNP #### [facility] [address] [place] [address] [place] Cholesterol.total/Cho lesterol in HDL [Mass ratio] 2.5 {ratio} Normal <5.0 [facility] Comment on above: Order Comment: [phone] Performed By: #### B MP, LIPID, TSH3, BNP #### [facility] [address] [place] [address] [place] LDL Cholesterol,Calculate d 142 mg/dL High 0-100 [facility] Comment on above: Order Comment: [phone] Result Comment: LDL ATP III CLASSIFICATION LDL less than 100 mg/dL Optimal LDL 100-129 mg/dL Near or above optimal LDL 130-159 mg/dL Borderline high LDL 160-189 mg/dL High LDL greater than 189 mg/dL Very high Performed By: #### B MP, LIPID, TSH3, BNP #### [facility] [address] Triglyceride w/Reflex 60 mg/dL Normal 35-149 [facility] Comment on above: Order Comment: Result Comment: TRIG ATP III CLASSIFICATION TRIG less than 150 mg/dL Normal TRIG 150-199 mg/dL Borderline high TRIG 200-500 mg/dL High TRIG greater than 500 mg/dL Very high Standard traceable to the Center for Disease Conrtrol and Prevention (CDC) test method. Performed By: #### B MP, LIPID, TSH3, BNP #### [facility] [address] VLDL CHOLESTEROL 12 mg/dL Normal [facility] Comment on above: Order Comment: [phone] Performed By: #### B MP, LIPID, TSH3, BNP #### [facility] [address] No Panel InformationOrdered By: Sweetie Tomlinson on 01-19-2022 Estimated GFR () 38 mL/Min [facility] Comment on above: GFR estimated refere nce range: According to KDOQI guidelines, <60 ml/min/1.73m2 is sufficient to diagnose a patient with chronic kidney disease. Pharmacy Creatinine Clearance (Chem N/A [facility] Serum or plasma calcium shelbi urement (mass/volume)Ordered By: Sweetie Tomlinson on 01-19-2022 Calcium [Mass/Vol] 8.5 mg/dL 8.2-10.2 [facility] Serum or plasma chloride alex surement (moles/volume)Ordered By: Sweetie Tomlinson on 01-19-2022 Chloride [Moles/Vol] 103 mmol/L 95-114 [facility] Serum or plasma glucose shelbi urement (mass/volume)Ordered By: Sweetie Tomlinson on 01-19-2022 Glucose [Mass/Vol] 99 mg/dL 70-100 [facility] Comment on above: ADA recommended refe rence range Random Glucose Reference Range is dependent on time and content of last meal. Glucose of more than 200 mg/dL in a nonstressed, ambulatory subject supports the diagnosis of Diabetes Mellitus. Serum or plasma high density lipoprotein (HDL) cholesterol measurementOrdered By: Sweetie Tomlinson on 01-19-2022 Cholesterol in HDL [Mass/Vol] 105 mg/dL 29-71 [facility] Comment on above: HDL CHOL ATP-III CLA SSIFICATION Cardiovascular Risk HDL > or equal to 60 mg/dL LOW HDL < 40 mg/dL HIGH Serum or plasma potassium me asurement (moles/volume)Ordered By: Sweetie Tomlisnon on 01-19-2022 Potassium [Moles/Vol] 4.9 mmol/L 3.5-5.1 [facility] Serum or plasma sodium measu rement (moles/volume)Ordered By: Sweetie Tomlinson on 01-19-2022 Sodium [Moles/Vol] 142 mmol/L 136-146 [facility] Serum or plasma total carbon dioxide measurement (moles/volume)Ordered By: Sweetie Tomlinson on 01-19-2022 CO2 [Moles/Vol] 31.5 mmol/L 22.0-30.0 [facility] Serum or plasma total choles terol/high density lipoprotein (HDL) cholesterol mass ratOrdered By: Sweetie Tomlinson on 01-19-2022 Cholesterol.total/Cho lesterol in HDL [Mass ratio] 2.5 {ratio} <5.0 [facility] Serum or plasma urea nitroge n measurement (mass/volume)Ordered By: Sweetie Tomlinson on 01-19-2022 Urea nitrogen [Mass/Vol] 50 mg/dL 9-23 [facility] TSH DL <= 0.005 mIU/L QnOrde red By: Sweetie Tomlinson on 01-19-2022 TSH Qn 11.52 m[IU]/L 0.45-5.33 [facility] Thyroid Stimulating Hormoneo n 01-19-2022 TSH Qn 11.52 m[IU]/L High 0.45-5.33 [facility] Comment on above: Order Comment: 1- [phone] Result Comment: PERF ORMED BY: [facility] [address] [place] [address] PATHOLOGIST STUDIO OPERATIONS MANAGER SERVANDO AKERS M.D. Performed By: #### B MP, LIPID, TSH3, BNP #### [facility] [address] Triglyceride [Mass/volume] i n Serum or PlasmaOrdered By: Sweetie Tomlinson on 01-19-2022 Triglyceride [Mass/Vol] 60 mg/dL 35-149 [facility] Comment on above: TRIG ATP III CLASSIF ICATION TRIG less than 150 mg/dL Normal TRIG 150-199 mg/dL Borderline high TRIG 200-500 mg/dL High TRIG greater than 500 mg/dL Very high Standard traceable to the Center for Disease Conrtrol and Prevention (CDC) test method. BNPon 12-21-2021 Natriuretic peptide B (Bld) [Mass/Vol] 2048.0 pg/mL Critically high <=1,800.0 [facility] Comment on above: Performed By: #### B MP, BNP #### [facility] [address] [place] [address] Dr. Aaron Ling PROF CHEM 8 (BAS METB)on Anion gap [Moles/Vol] 11.1 mmol/L Normal [facility] Comment on above: Performed By: #### B MP, BNP #### [facility] [address] [address] [address] Aaron Ling Calcium [Mass/Vol] 8.7 mg/dL Normal 8.5-10.1 [facility] Comment on above: Performed By: #### B MP, BNP #### [facility] [address] [address] [address] Aaron Ling Chloride [Moles/Vol] 106 mmol/L Normal 98-107 [facility] Comment on above: Performed By: #### B MP, BNP #### [facility] [address] [address] [address] Aaron Ling CO2 [Moles/Vol] 30.9 mmol/L Normal 21.0-32.0 [facility] Comment on above: Performed By: #### B MP, BNP #### [facility] [address] [place] [address] Dr. Aaron Ling Creatinine [Mass/Vol] 2.07 mg/dL Critically high 0.70-1.30 [facility] Comment on above: Performed By: #### B MP, BNP #### [facility] [address] [place] [address] Dr. Aaron Ling EGFR-AF [place] 38 mL/min/1.73m2 Critically low >=60 [facility] Comment on above: Performed By: #### B MP, BNP #### [facility] [address] [place] [address] Dr. Aaron Ling EGFR-NON AF [place] 31 mL/min/1.73m2 Critically low >=60 [facility] Comment on above: Performed By: #### B MP, BNP #### [facility] [address] [place] [address] Dr. Aaron Ling Glucose [Mass/Vol] 138 mg/dL Critically high 74-106 [facility] Comment on above: Performed By: #### B MP, BNP #### [facility] [address] [place] [address] Dr. Aaron Ling Potassium [Moles/Vol] 5.0 mmol/L Normal 3.5-5.1 [facility] Comment on above: Performed By: #### B MP, BNP #### [facility] [address] [place] [address] Dr. Aaron Ling Sodium [Moles/Vol] 143 mmol/L Normal 136-145 [facility] Comment on above: Performed By: #### B MP, BNP #### [facility] [address] [place] [address] Dr. Aaron Ling Urea nitrogen [Mass/Vol] 43.0 mg/dL Critically high 7.0-18.0 [facility] Comment on above: Performed By: #### B MP, BNP #### [facility] [address] [place] [address] Dr. Aaron Ling Urea nitrogen/Creatinine [Mass ratio] 20.8 mg/mg Normal [facility] Comment on above: Performed By: #### B MP, BNP #### [facility] [address] [place], [place] [address] Dr. Aaron Ling XR shoulder RT min 2V*on XR shoulder RT min 2V* [facility] [place] [address] [place] [address] XRay Report Signed Patient: Richard Boykin MR#: [id number] : 1940 Acct:[id number] Age/Sex: 81 / M ADM Date: 12/02/21 Loc: [facility] Room: Type: [facility] Attending Dr: Teofilo Person MD Copies to: Teofilo Person MD Ordering Provider: Teofilo Person MD Date of Service: 12/02/21 XR/XR shoulder RT min 2V*: Acute pain of right shoulder Right shoulder 12/02/2021. CLINICAL DATA: Right shoulder pain. No known injury. FINDINGS: 4 views of the right shoulder were obtained. No acute fracture or dislocation is identified. The glenohumeral joint appears unremarkable. There are hypertrophic degenerative changes at the acromioclavicular joint. No bony erosion or destruction is seen. There is a right upper extremity PICC. XR/XR shoulder RT min 2V* IMPRESSION: Degenerative changes at the acromioclavicular joint. No acute bony abnormality. Impression dictated by: Cyrus Rosado Jr., M.D.12/02/2021 1:52 PM Dictation Location: [place] [address] Transcribed By: [facility] 12/02/21 1352 Dictated By: Cyrus Rosado Jr, MD 12/02/21 1351 Signed By: 12/02/21 135 Normal [facility] BASIC METABOLIC PANELon 05- Calcium [Mass/Vol] 8.7 mg/dL Normal 8.6-10.3 [facility] Comment on above: Order Comment: No: D o not add to previous draw Performed By: #### 5 0608, 33000 #### [facility] [address] [place] [address], [place] Chloride [Moles/Vol] 98 mmol/L Normal 98-[address] [facility] Comment on above: Order Comment: No: D o not add to previous draw Performed By: #### 5 0608, 77367 #### [facility] [address] [place] [address], [place] CO2 [Moles/Vol] 29 mmol/L Normal 21-[address] [facility] Comment on above: Order Comment: No: D o not add to previous draw Performed By: #### 5 0608, 97404 #### [facility] [address] [place] [address], [place] Creatinine [Mass/Vol] 1.00 mg/dL Normal 0.70-1.[address] [facility] Comment on above: Order Comment: No: D o not add to previous draw Performed By: #### 5 0608, 20328 #### [facility] [address] [place] [address], [place] GFR/1.73 sq M.predicted among blacks MDRD (S/P/Bld) [Vol rate/Area] mL/min/{1.73_m2} Normal >60 [facility] Comment on above: Order Comment: No: D o not add to previous draw Result Comment: Calc ulation may not be valid for patients over 70 years Performed By: #### 5 0608, 21902 #### [facility] [address] [place] [address], [place] GFR/1.73 sq M.predicted among non-blacks MDRD (S/P/Bld) [Vol rate/Area] mL/min/{1.73_m2} Normal >[address] [facility] Comment on above: Order Comment: No: D o not add to previous draw Result Comment: Calc ulation may not be valid for patients over 70 years Performed By: #### 5 0608, 99172 #### [facility] [address] [place] [id number], [facility] Glucose [Mass/Vol] 288 mg/dL High 70-100 [facility] Comment on above: Order Comment: No: D o not add to previous draw Performed By: #### 5 06, 08292 #### [facility] [address] [place] [address], [place] Potassium [Moles/Vol] 4.7 mmol/L Normal 3.5-5.[address] [facility] Comment on above: Order Comment: No: D o not add to previous draw Performed By: #### 5 607, 71908 #### [facility] [address] [place] [address], [place] Sodium [Moles/Vol] 135 mmol/L Low 136-145 [facility] Comment on above: Order Comment: No: D o not add to previous draw Performed By: #### 5 607, 53827 #### [facility] [address] [place] [address], [facility] Urea nitrogen [Mass/Vol] 28 mg/dL High 7-[address] [facility] Comment on above: Order Comment: No: D o not add to previous draw Performed By: #### 5 607, 14820 #### [facility] [address] [place] [address], [facility] CBC COMPLETE BLOOD COUNTon 0 - Erythrocyte distribution width (RBC) [Ratio] 14.3 % Normal 11.5-15.[address] [facility] Comment on above: Order Comment: No: D o not add to previous draw Performed By: #### 5 607, 32052 #### [facility] [address] [place] [address], [facility] Hematocrit (Bld) [Volume fraction] 42.0 % Normal 39.0-50.[address] [facility] Comment on above: Order Comment: No: D o not add to previous draw Performed By: #### 5 607, 73350 #### [facility] [address] Hemoglobin (Bld) [Mass/Vol] 13.7 g/dL Normal 13.0-17.[address] [facility] Comment on above: Order Comment: No: D o not add to previous draw Performed By: #### 5 607, 98918 #### [facility] [address] [place] [address], [facility] MCH (RBC) [Entitic mass] 31.5 pg Normal 27.0-33.[address] [facility] Comment on above: Order Comment: No: D o not add to previous draw Performed By: #### 5 607, 19684 #### [facility] [address] [facility]. [address] MCHC (RBC) [Mass/Vol] 32.6 g/dL Normal 32.0-35.[address] [facility] Comment on above: Order Comment: No: D o not add to previous draw Performed By: #### 5 607, 08335 #### [facility] [address] [facility] [place] [address], [facility] MCV (RBC) [Entitic vol] 96.6 fL Normal 82.0-98.[address] [facility] Comment on above: Order Comment: No: D o not add to previous draw Performed By: #### 5 607, 60025 #### [facility] [address] [facility] [place] [address], [facility] Nucleated RBC/100 WBC (Bld) [Ratio] 0 % Normal 0-[address] [facility] Comment on above: Order Comment: No: D o not add to previous draw Performed By: #### 5 607, 32966 #### [facility] [address] [facility] [place] [address], [facility] PLAT CNT 298 10*3/uL Normal 150-400 [facility] Comment on above: Order Comment: No: D o not add to previous draw Performed By: #### 5 607, 23928 #### [facility] [address] [place] [address], [facility] RBC (Bld) [#/Vol] 4.35 10*6/uL Normal 4.20-5.70 [facility] Comment on above: Order Comment: No: D o not add to previous draw Performed By: #### 5 0608, 57879 #### [facility] [address] [facility] [place] [address], [facility] WBC (Bld) [#/Vol] 10.30 10*3/uL Normal 4.00-10.[address] [facility] Comment on above: Order Comment: No: D o not add to previous draw Performed By: #### 5 0608, 34791 #### [facility] [address] [facility] [place] [address], [facility] MAGNESIUM BLOODon 11-02-2021 Magnesium [Mass/Vol] 2.0 mg/dL Normal 1.9-2.[address] [facility] Comment on above: Order Comment: No: D o not add to previous draw Performed By: #### 5 0608, 95976 #### [facility] [address] [facility] [place] [address], [facility] POC GLUCOSE LABon 11-02-2021 Glucose [Mass/Vol] 296 mg/dL High 70-100 [facility] Comment on above: Performed By: #### 5 7307, 20684 #### [facility] [address] [facility] [place] [address], [facility] Glucose [Mass/Vol] 262 mg/dL High 70-100 [facility] Comment on above: Performed By: #### 5 7307, 77600 #### [facility] [address] [facility] [place] [address], [facility] PORTABLE CHEST 1 VIEWon 05- PORTABLE CHEST 1 VIEW [facility] Department of Radiology [address] [place] [address] ======== Patient Name: RICHARD BOYKIN : 1940 Sex: M Age: Race: NA Pt. Location: [id number] Patient Status: I Ordered Date: 11/02/2021 12:05:00 PM Completed Date: 11/02/2021 12:26 PM Requesting Provider: ALICIA SWEET Attending Provider: ALICIA SWEET Report Copy To: Signs & Symptoms: Central Line Placement History: Comments: Check Line Position, right arm picc Exam: PORTABLE CHEST 1 VIEW ======== PORTABLE CHEST 1 VIEW 11/02/2021 12:26 PM CLINICAL INDICATIONS: Central Line Placement TECHNOLOGIST COMMENTS: PICC line placement QUESTION FOR THE RADIOLOGIST: Check Line Position, right arm picc PROTOCOL: AP(PA) view was obtained. COMPARISON: 10/24/2021 FINDINGS: A single portable upright image of the chest was obtained. A right PICC is pleasant. The line extends at least to the distal SVC region with the tip is not visible. The cardiac silhouette is stable with mild vascular prominence centrally. Strandy basilar opacities remain with blunting of the costophrenic angles. IMPRESSION: Right PICC extending to at least the distal SVC Persistent pulmonary vascular prominence with basilar atelectasis and pleural effusions. Electronically signed: Guilherme Abarca. Transcribed by: [email or web address], User Resident: Electronically Signed by: GUILHERME ABARCA @ 11/02/2021 12:49 PM Normal [facility] Comment on above: Order Comment: Check Line Position, right arm picc *ANAEROBIC CULTUREon 022 *ANAEROBIC CULTURE Clinical Report: (D) Specimen: FLUID Collected: 11/01/2021 15:30 Status: Final Last Updated: 11/06/2021 07:46 (1) RT SC JOINT CULT RES (Final) No Anaerobes Isolated 5 Days Normal [facility] Comment on above: Order Comment: Check Line Position, right arm picc Performed By: #### 3 0312 ####[facility] [place] [address], [facility] *ANAEROBIC CULTURE Clinical Report: (D) Specimen: TISSUE Collected: 11/01/2021 15:10 Status: Final Last Updated: 11/06/2021 07:46 (1) RT SC JOINT CULT RES (Final) No Anaerobes Isolated 5 Days Normal [facility] Comment on above: Order Comment: Check Line Position, right arm picc Performed By: #### 3 0312 ####[facility] [place] [address], [facility] *BODY FLUID CULTUREon 2021 *BODY FLUID CULTURE Clinical Report: (D) Specimen: FLUID Collected: 11/01/2021 15:30 Status: Final Last Updated: 11/06/2021 06:31 (1) RT SC JOINT GRAM (Final) Quantity Not Sufficient CULT RES (Final) No Growth Day [address] [facility] Comment on above: Order Comment: RT SC JOINT Performed By: #### 5 0608, 18231 #### [facility] [address] [place] [address], [facility] *FUNGAL CULTUREon 11-01-2021 *FUNGAL CULTURE Clinical Report: (D) Specimen: TISSUE Collected: 11/01/2021 15:10 Status: Final Last Updated: 12/03/2021 07:55 (1) RT SC JOINT FS (Final) No Yeast or Fungal Elements Seen CULT RES (Final) Culture negative for fungus Normal [facility] Comment on above: Order Comment: Check Line Position, right arm picc Performed By: #### 3 0323 ####[facility] [place] [address], [place] *TISSUE CULTUREon 11-01-2021 *TISSUE CULTURE Clinical Report: (D) Specimen: TISSUE Collected: 11/01/2021 15:10 Status: Final Last Updated: 11/06/2021 06:37 (1) RT SC JOINT GRAM (Final) Moderate Polys No Bacteria Seen CULT RES (Final) No Growth Day [address] [facility] Comment on above: Order Comment: Check Line Position, right arm picc Performed By: #### 3 0338 ####[facility] [address] BIOPSY ARM/WRIST SOFT TIS [place] RIGHTon 11-01-2021 CT BIOPSY ARM/WRIST SOFT TISSUE RIGHT [facility] Department of Radiology [address] [place] [address] ======== Patient Name: RICHARD BOYKIN : 1940 Sex: M Age: Race: NA Pt. 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 Will order aspiraton of the proximal RIGHT sternoclavicular joint seperately Exam: CT BIOPSY ARM/WRIST SOFT TISSUE RIGHT ======== CT BIOPSY ARM/WRIST SOFT TISSUE RIGHT 11/01/2021 3:58 PM CLINICAL INDICATIONS: Pain in Extremity (specify) TECHNOLOGIST COMMENTS: Rt SC joint Bx/ aspiration. 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 Will order aspiraton of the proximal RIGHT sternoclavicular joint seperately PROTOCOL: All CT scans at this facility use dose modulation, iterative reconstruction, and/or weight based dosing when appropriate to reduce radiation dose to as low as reasonably achievable. INFORMED CONSENT: Reason for procedure was discussed with the patient. The procedure expectations risks benefits options and alternatives were discussed. All the questions were answered. The patient understood that results cannot be guaranteed. The procedure is indicated and risks are acceptable. Consent was obtained. Timeout: [place] protocol timeout verification performed. MEDICATIONS: 1 mg of versed and 100 micrograms of Fentanyl were administered for conscious sedation. Vital signs were continuously monitored by nursing staff throughout the procedure. Performing physician:Dr. Hall and Dr. Feliciano, attending physician was present for all critical portions of the procedure. Start time: 1430 End time: 1445 Total physician intra-service time of sedation: 15 minutes Samples obtained:2 cm core bone biopsies of the SC joint x2 and 1 mL aspirate from SC lesion. PROCEDURE: Estimated blood loss: Less than 5 mL. IMPRESSION: CT guidance was utilized for procedure. The patient was brought to the CT preprocedure area and verbal and written consent was obtained. The patient was brought into the CT suite and positioned supine on the CT table. A CT scan is obtained site localization. The area was then marked, cleaned, and sterilely draped. 1% lidocaine was used as local anesthetic. The introducer needle was placed within the proximal clavicle under CT guidance. After placement confirmation, 2 biopsies were drilled. A 22-gauge spinal needle was then placed into the fluid collection just posterior to the SC joint under CT guidance. Aspiration at that time was unsuccessful, so 5 mL of normal saline was injected and 1 mL of cloudy sanguinous fluid was aspirated. A sterile dressing was then placed over the procedure site. The patient tolerated the procedure well. The patient will remain in radiology post procedure area 30 minutes for observation and then will be released back to the prior service. Successful CT-guided aspiration and bone biopsy of the right SC joint. Approved by:Jeremias Hoang11/02/2021 7:39 AM. I, Tara Hall,have reviewed the image(s) and agree with the findings in this report. Electronically signed: Tara Hall. Transcribed by: [email or web address], User Resident: JEREMIAS FELICIANO Electronically Signed by: TARA HALL @ 11/05/2021 04:09 PM I personally read this/these film(s) with this resident Normal [facility] Comment on above: Order Comment: Osteo myeomyelitis, Concern for RIGHT proximal clavicle ostemyelitis, need IR guided RIGHT proximal clavicle bone biopsy. Will order aspiraton of the proximal RIGHT sternoclavicular joint seperately POC GLUCOSE LABon 11-01-2021 Glucose [Mass/Vol] 326 mg/dL High 70-100 [facility] Comment on above: Performed By: #### 5 7307, 68911 #### [facility] [address] [place] [address], [place] Glucose [Mass/Vol] 245 mg/dL High 70-100 [facility] Comment on above: Performed By: #### 5 7307, 35151 #### [facility] [address] [place] [address], [place] Glucose [Mass/Vol] 299 mg/dL High 70-100 The [facility] Comment on above: Performed By: #### 5 7307, 53174 #### [facility] [address] [place] [address], [place] Glucose [Mass/Vol] 227 mg/dL High 70-100 The [facility] Comment on above: Performed By: #### 5 7307, 22930 #### [facility] [address] [place] [address], [place] POC SARS COV2 IDon 2 SARS-CoV-2 (COVID-19) RNA KIKO+probe Ql (Unsp spec) Negative Normal NEGATIVE The [facility] Comment on above: Result Comment: ID N OW COVID-19 assay performed on the ID NOW Instrument is a rapid molecular in vitro diagnostic test utilizing an isothermal nucleic acid amplification technology intended for the qualitative detection of nucleic acid from the SARS-CoV-2 virus in direct anterior nasal (nasal), nasopharyngeal or throat swabs from individuals who are suspected of COVID-19 by their healthcare provider within the first seven days of the onset of symptoms. Testing is limited to laboratories certified under the Clinical Laboratory Improvement Amendments of 1988 (CLIA), 42 U.S.C. ???263a,that meet the requirements to perform high, moderate, or waived complexity tests. The ID NOW COVID-19 assay is also authorized for use at the Point of Care (POC), i.e., in patient care settings operating under a CLIA Certificate of Waiver, Certificate of Compliance, or Certificate of Accreditation. Performed By: #### 5 0608, 90370 #### [facility] [address] [facility] [place] [address], [facility] POC GLUCOSE LABon 10-31-2021 Glucose [Mass/Vol] 236 mg/dL High 70-100 [facility] Comment on above: Performed By: #### 5 7307, 59831 #### [facility] [address] [facility] [place] [address], [place] Glucose [Mass/Vol] 274 mg/dL High 70-100 [facility] Comment on above: Performed By: #### 5 7307, 23217 #### [facility] [address] [facility] [place] [address], [place] Glucose [Mass/Vol] 317 mg/dL High 70-100 The [facility] Comment on above: Performed By: #### 5 7307, 33791 #### [facility] [address] [facility] [place] [address], [place] Glucose [Mass/Vol] 225 mg/dL High 70-100 [facility] Comment on above: Performed By: #### 5 7307, 68511 #### [facility] [address] [place] [address], [facility] *BLOOD CULTUREon 10-30-2021 *BLOOD CULTURE Clinical Report: (D) Specimen: BLOOD CULTURE Collected: 10/29/2021 23:08 Status: Final Last Updated: 11/04/2021 08:31 CULT RES (Final) No Growth Day [address] [facility] Comment on above: Performed By: #### 5 7307, 92553 #### [facility] [address] [place] [address], [facility] APTTon 10-30-2021 aPTT Coag (Bld) [Time] 51.2 s High 25.0-35.[address] [facility] Comment on above: Order Comment: No: D o not add to previous drawMissed Result Comment: ALL RESULTS MUST BE INTERPRETED WITH RESPECT TO BLOOD DRAWING ARTIFACT OR DILUTION ERROR OF ANTICOAGULANT AT THE TIME OF SAMPLING. THE APTT SHOULD NOT BE USED TO MONITOR UNFRACTIONATED HEPARIN THERAPY, THIS LABORATORY NO LONGER HAS AN ESTABLISHED THERAPEUTIC RANGE BASED ON THE APTT. IT IS RECOMMENDED THAT THE UFH - HEPARIN ASSAY (ANTI-XA ACTIVITY) BE USED FOR THIS PURPOSE. Performed By: #### 5 0608, 23164 #### [facility] [address] [facility] [place] [address], [facility] BASIC METABOLIC PANELon 10-17 Calcium [Mass/Vol] 8.9 mg/dL Normal 8.6-10.3 The [facility] Comment on above: Order Comment: No: D o not add to previous drawMissed Performed By: #### 5 0608, 70355 #### [facility] [address] [place] [address], [facility] Chloride [Moles/Vol] 99 mmol/L Normal 98-[address] [facility] Comment on above: Order Comment: No: D o not add to previous drawMissed Performed By: #### 5 0608, 73134 #### [facility] [address] [place] [address], [place] CO2 [Moles/Vol] 27 mmol/L Normal 21-31 [facility] Comment on above: Order Comment: No: D o not add to previous drawMissed Performed By: #### 5 0608, 81149 #### [facility] [address] [place] [address], [place] Creatinine [Mass/Vol] 1.08 mg/dL Normal 0.70-1.[address] [facility] Comment on above: Order Comment: No: D o not add to previous drawMissed Performed By: #### 5 06, 83814 #### [facility] [address] [place] [address], [place] GFR/1.73 sq M.predicted among blacks MDRD (S/P/Bld) [Vol rate/Area] mL/min/{1.73_m2} Normal >[address] [facility] Comment on above: Order Comment: No: D o not add to previous drawMissed Result Comment: Calc ulation may not be valid for patients over 70 years Performed By: #### 5 0608, 72536 #### [facility] [address] [place] [address], [place] GFR/1.73 sq M.predicted among non-blacks MDRD (S/P/Bld) [Vol rate/Area] mL/min/{1.73_m2} Normal >[address] [facility] Comment on above: Order Comment: No: D o not add to previous drawMissed Result Comment: Calc ulation may not be valid for patients over 70 years Performed By: #### 5 0608, 61533 #### [facility] [address] [place] [address], [place] Glucose [Mass/Vol] 257 mg/dL High 70-100 [facility] Comment on above: Order Comment: No: D o not add to previous drawMissed Performed By: #### 5 06, 69786 #### [facility] [address] [place] [address], [place] Potassium [Moles/Vol] 4.5 mmol/L Normal 3.5-5.[address] [facility] Comment on above: Order Comment: No: D o not add to previous drawMissed Performed By: #### 5 0608, 30327 #### [facility] [address] [place] [id number], [facility] Sodium [Moles/Vol] 135 mmol/L Low 136-145 The [facility] Comment on above: Order Comment: No: D o not add to previous drawMissed Performed By: #### 5 0608, 24014 #### [facility] [address] [place] [address], [facility] Urea nitrogen [Mass/Vol] 27 mg/dL High 7-[address] [facility] Comment on above: Order Comment: No: D o not add to previous drawMissed Performed By: #### 5 0608, 06722 #### [facility] [address] [place] [address], [facility] C REACTIVE PROTEINon 10-30-2 022 CRP [Mass/Vol] 278.0 mg/L High 0.0-7.0 [facility] Comment on above: Order Comment: No: D o not add to previous draw Performed By: #### 5 7307, 85921 #### [facility] [address] CBC COMPLETE BLOOD COUNTon 0 10-30-2021 Erythrocyte distribution width (RBC) [Ratio] 14.6 % Normal 11.5-15.[address] [facility] Comment on above: Order Comment: No: D o not add to previous draw Missed Performed By: #### 5 0608, 51119 #### [facility] [address] [place] [address], [facility] Hematocrit (Bld) [Volume fraction] 41.4 % Normal 39.0-50.[address] [facility] Comment on above: Order Comment: No: D o not add to previous draw Missed Performed By: #### 5 06, 31654 #### [facility] [address] [place] [id number], [facility] Hemoglobin (Bld) [Mass/Vol] 13.9 g/dL Normal 13.0-17.[address] [facility] Comment on above: Order Comment: No: D o not add to previous draw Missed Performed By: #### 5 06, 05015 #### [facility] [address] [place] [id number], [facility] MCH (RBC) [Entitic mass] 32.0 pg Normal 27.0-33.[address] [facility] Comment on above: Order Comment: No: D o not add to previous draw Missed Performed By: #### 5 06, 55505 #### [facility] [address] [place] [id number], [facility] MCHC (RBC) [Mass/Vol] 33.6 g/dL Normal 32.0-35.[address] [facility] Comment on above: Order Comment: No: D o not add to previous draw Missed Performed By: #### 5 06, 55463 #### [facility] [address] [place] [id number], [facility] MCV (RBC) [Entitic vol] 95.2 fL Normal 82.0-98.[address] [facility] Comment on above: Order Comment: No: D o not add to previous draw Missed Performed By: #### 5 607, 84543 #### [facility] [address] [place] [address], [facility] Nucleated RBC/100 WBC (Bld) [Ratio] 0 % Normal 0-[address] [facility] Comment on above: Order Comment: No: D o not add to previous draw Missed Performed By: #### 5 06, 99425 #### [facility] [address] [place] [id number], [facility] PLAT CNT 211 10*3/uL Normal 150-400 The [facility] Comment on above: Order Comment: No: D o not add to previous draw Missed Performed By: #### 5 0608, 10881 #### [facility] [address] [place] [address], [facility] RBC (Bld) [#/Vol] 4.35 10*6/uL Normal 4.20-5.70 The [facility] Comment on above: Order Comment: No: D o not add to previous draw Missed Performed By: #### 5 0608, 86066 #### [facility] [address] [place] [address], [facility] WBC (Bld) [#/Vol] 9.94 10*3/uL Normal 4.00-10.60 The [facility] Comment on above: Order Comment: No: D o not add to previous draw Missed Performed By: #### 5 0608, 66830 #### [facility] [address] [facility] [place] [address], [facility] LACTATE WITH REFLEXon 2021 Lactate [Moles/Vol] 1.5 mmol/L Normal .5-2.2 The [facility] Comment on above: Order Comment: No: D o not add to previous draw Performed By: #### 3 1414 #### [facility] [address] [place] [address], [facility] MAGNESIUM BLOODon 10-30-2021 Magnesium [Mass/Vol] 2.0 mg/dL Normal 1.9-2.[address] [facility] Comment on above: Order Comment: No: D o not add to previous draw Performed By: #### 5 7307, 30281 #### [facility] [address] [place] [address], [facility] PHOSPHORUS BLOODon Phosphate [Mass/Vol] 3.0 mg/dL Normal 2.5-5.[address] [facility] Comment on above: Order Comment: No: D o not add to previous draw Performed By: #### 5 7307, 78154 #### [facility] [address] [place] [address], [facility] POC GLUCOSE LABon 10-30-2021 Glucose [Mass/Vol] 355 mg/dL High 70-100 The [facility] Comment on above: Performed By: #### 5 7307, 57810 #### [facility] [address] [place] [address], [place] Glucose [Mass/Vol] 318 mg/dL High 70-100 The [facility] Comment on above: Performed By: #### 5 7307, 50170 #### [facility] [address] [place] [address], [place] Glucose [Mass/Vol] 244 mg/dL High 70-100 [facility] Comment on above: Performed By: #### 5 7307, 59857 #### [facility] [address] [place] [address], [place] Glucose [Mass/Vol] 294 mg/dL High 70-100 [facility] Comment on above: Performed By: #### 5 7307, 32729 #### [facility] [address] [place] [address], [facility] PROTHROMBIN TIMEon 2 INR Coag (PPP) [Relative time] 1.09 {INR} Normal 0.91-1.[address] [facility] Comment on above: Order Comment: No: D o not add to previous drawMissed Result Comment: ACCC P RECOMMENDED INR FOR WARFARIN THERAPY -------- ------- CONDITION INR PROPHYLAXIS OF VENOUS THROMBOSIS 2-3 (HIGH-RISK SURGERY) TREATMENT OF VENOUS THROMBOSIS 2-3 TREATMENT OF PULMONARY EMBOLISM 2-3 PREVENTION OF SYSTEMIC EMBOLISM: 2-3 ACUTE MYOCARDIAL INFARCTION TISSUE HEART VALVES VALVULAR HEART DISEASE ATRIAL FIBRILLATION RECURRENT SYSTEMIC EMBOLISM MECHANICAL HEART VALVE 2.5-3.5 FROM: ORAL ANTICOAGULANTS. MECHANISM OF ACTION, CLINICAL EFFECTIVENESS, AND OPTIMAL THERAPEUTIC RANGE. CHEST 1995;108:231S-246S. Performed By: #### 5 0608, 84064 #### [facility] [address] PT Coag (PPP) [Time] 14.1 s Normal 12.3-14.[address] [facility] Comment on above: Order Comment: No: D o not add to previous drawMissed Result Comment: ALL RESULTS MUST BE INTERPRETED WITH RESPECT TO BLOOD DRAWING ARTIFACT OR DILUTION ERROR OF ANTICOAGULANT AT THE TIME OF SAMPLING. Performed By: #### 5 0608, 26842 #### [facility] [address] SEDIMENTATION RATEon 022 SED RATE 43 mm/hr High 0-[address] [facility] Comment on above: Performed By: #### 5 0608, 39439 #### [facility] [address] *BLOOD CULTUREon 10-29-2021 *BLOOD CULTURE Clinical Report: (D) Specimen: BLOOD CULTURE Collected: 10/29/2021 21:05 Status: Final Last Updated: 11/04/2021 08:31 (1) LH 2051 CULT RES (Final) No Growth Day 5 Normal [facility] Comment on above: Order Comment: No: D o not add to previous draw Performed By: #### 5 7307, 13479 #### [facility] [address] *BLOOD CULTURE Clinical Report: (D) Specimen: BLOOD CULTURE Collected: 10/29/2021 21:05 Status: Final Last Updated: 11/04/2021 08:31 (1) RH 2100 CULT RES (Final) No Growth Day 5 Normal [address] [facility] Comment on above: Order Comment: Check Line Position, right arm picc Performed By: #### 3 0313 ####[facility] [place] [address], [facility] APTTon 10-29-2021 aPTT Coag (Bld) [Time] 47.5 s High 25.0-35.[address] [facility] Comment on above: Order Comment: No: D o not add to previous draw Result Comment: ALL RESULTS MUST BE INTERPRETED WITH RESPECT TO BLOOD DRAWING ARTIFACT OR DILUTION ERROR OF ANTICOAGULANT AT THE TIME OF SAMPLING. THE APTT SHOULD NOT BE USED TO MONITOR UNFRACTIONATED HEPARIN THERAPY, THIS LABORATORY NO LONGER HAS AN ESTABLISHED THERAPEUTIC RANGE BASED ON THE APTT. IT IS RECOMMENDED THAT THE UFH - HEPARIN ASSAY (ANTI-XA ACTIVITY) BE USED FOR THIS PURPOSE. Performed By: #### 5 7307, 77999 #### [facility] [address] BASIC METABOLIC PANELon 10-17 Calcium [Mass/Vol] 8.7 mg/dL Normal 8.6-10.3 [facility] Comment on above: Order Comment: No: D o not add to previous draw Performed By: #### 1 0070, 17841, 27482, 61547 #### [facility] [address] [place] [address], [facility] Chloride [Moles/Vol] 100 mmol/L Normal 98-[address] [facility] Comment on above: Order Comment: No: D o not add to previous draw Performed By: #### 1 0070, 83779, 34386, 03825 #### [facility] [address] [place] [id number], [facility] CO2 [Moles/Vol] 25 mmol/L Normal 21-[address] [facility] Comment on above: Order Comment: No: D o not add to previous draw Performed By: #### 1 0070, 20296, 60479, 70076 #### [facility] [address] [place] [address], [facility] Creatinine [Mass/Vol] 1.14 mg/dL Normal 0.70-1.30 [facility] Comment on above: Order Comment: No: D o not add to previous draw Performed By: #### 1 0070, 75568, 40432, 37613 #### [facility] [address] [place] [address], [facility] GFR/1.73 sq M.predicted among blacks MDRD (S/P/Bld) [Vol rate/Area] mL/min/{1.73_m2} Normal >[address] [facility] Comment on above: Order Comment: No: D o not add to previous draw Result Comment: Calc ulation may not be valid for patients over 70 years Performed By: #### 1 0070, 27635, 94628, 29911 #### [facility] [address] [place] [id number], [facility] GFR/1.73 sq M.predicted among non-blacks MDRD (S/P/Bld) [Vol rate/Area] mL/min/{1.73_m2} Normal >[address] [facility] Comment on above: Order Comment: No: D o not add to previous draw Result Comment: Calc ulation may not be valid for patients over 70 years Performed By: #### 1 0070, 55834, 58405, 56946 #### [facility] [address] [place] [address], [place] Glucose [Mass/Vol] 261 mg/dL High 70-100 The [facility] Comment on above: Order Comment: No: D o not add to previous draw Performed By: #### 1 0070, 65822, 49895, 92854 #### [facility] [address] [place] [address], [place] Potassium [Moles/Vol] 4.4 mmol/L Normal 3.5-5.[address] [facility] Comment on above: Order Comment: No: D o not add to previous draw Performed By: #### 1 0070, 53106, 00673, 67023 #### [facility] [address] [place] [address], [facility] Sodium [Moles/Vol] 134 mmol/L Low 136-145 [facility] Comment on above: Order Comment: No: D o not add to previous draw Performed By: #### 1 0070, 51471, 49211, 75547 #### [facility] [address] [facility] [place] [address], [facility] Urea nitrogen [Mass/Vol] 30 mg/dL High 7-25 [facility] Comment on above: Order Comment: No: D o not add to previous draw Performed By: #### 1 0070, 80667, 64774, 83180 #### [facility] [address] [facility] [place] [address], [facility] LIVER BATTERYon 10-29-2021 Albumin [Mass/Vol] 3.0 g/dL Low 3.5-5.7 The [facility] Comment on above: Order Comment: No: D o not add to previous draw Missed twice. Rhiannon Riojas notified. Performed By: #### 1 0070, 78842, 75092, 48101 #### [facility] [address] [facility] [place] [address], [facility] ALKALINE PHOSPH 159 IU/L High 34-[address] [facility] Comment on above: Order Comment: No: D o not add to previous draw Missed twice. Rhiannon Riojas notified. Performed By: #### 1 0070, 77294, 57398, 07144 #### [facility] [address] [facility] [place] [id number], [facility] ALT [Catalytic activity/Vol] 25 U/L Normal 7-[address] [facility] Comment on above: Order Comment: No: D o not add to previous draw Missed twice. Rhiannon Riojas notified. Performed By: #### 1 0070, 29229, 37943, 98383 #### [facility] [address] [place] [id number], [facility] AST [Catalytic activity/Vol] 40 U/L High 13-[address] [facility] Comment on above: Order Comment: No: D o not add to previous draw Missed twice. Rhiannon Riojas notified. Performed By: #### 1 0070, 14968, 68038, 67208 #### [facility] [address] [place] [address], [facility] Bilirubin [Mass/Vol] 0.8 mg/dL Normal 0.3-1.[address] [facility] Comment on above: Order Comment: No: D o not add to previous draw Missed twice. Rhiannon Riojas notified. Performed By: #### 1 0070, 62460, 70631, 66755 #### [facility] [address] [place] [id number], [facility] Bilirubin.direct [Mass/Vol] 0.1 mg/dL Normal 0.0-0.[address] [facility] Comment on above: Order Comment: No: D o not add to previous draw Missed twice. Rhiannon Riojas notified. Performed By: #### 1 0070, 62954, 14951, 89183 #### [facility] [address] [place] [address], [facility] Protein [Mass/Vol] 6.7 g/dL Normal 6.0-8.3 [facility] Comment on above: Order Comment: No: D o not add to previous draw Missed twice. Rhiannon Riojas notified. Performed By: #### 1 0070, 48041, 13714, 61681 #### [facility] [address] [place] [address], [place] MAGNESIUM BLOODon 10-29-2021 Magnesium [Mass/Vol] 2.1 mg/dL Normal 1.9-2.[address] [facility] Comment on above: Order Comment: No: D o not add to previous draw Performed By: #### 1 0070, 17825, 75533, 99600 #### [facility] [address] [place] [address], [place] PHOSPHORUS BLOODon 2 Phosphate [Mass/Vol] 2.7 mg/dL Normal 2.5-5.[address] [facility] Comment on above: Order Comment: No: D o not add to previous draw Performed By: #### 1 0070, 42256, 56963, 36604 #### [facility] [address] [place] [address], [facility] POC GLUCOSE LABon 10-29-2021 Glucose [Mass/Vol] 262 mg/dL High 70-100 [facility] Comment on above: Performed By: #### 5 7307, 48518 #### [facility] [address] [facility] [place] [address], [facility] PROTHROMBIN TIMEon 2 INR Coag (PPP) [Relative time] 1.05 {INR} Normal 0.91-1.16 [facility] Comment on above: Order Comment: No: D o not add to previous draw Result Comment: ACCC P RECOMMENDED INR FOR WARFARIN THERAPY -------- ------- CONDITION INR PROPHYLAXIS OF VENOUS THROMBOSIS 2-3 (HIGH-RISK SURGERY) TREATMENT OF VENOUS THROMBOSIS 2-3 TREATMENT OF PULMONARY EMBOLISM 2-3 PREVENTION OF SYSTEMIC EMBOLISM: 2-3 ACUTE MYOCARDIAL INFARCTION TISSUE HEART VALVES VALVULAR HEART DISEASE ATRIAL FIBRILLATION RECURRENT SYSTEMIC EMBOLISM MECHANICAL HEART VALVE 2.5-3.5 FROM: ORAL ANTICOAGULANTS. MECHANISM OF ACTION, CLINICAL EFFECTIVENESS, AND OPTIMAL THERAPEUTIC RANGE. CHEST 1995;108:231S-246S. Performed By: #### 5 7307, 74566 #### [facility] [address] [place] [address], [facility] PT Coag (PPP) [Time] 13.7 s Normal 12.3-14.[address] [facility] Comment on above: Order Comment: No: D o not add to previous draw Result Comment: ALL RESULTS MUST BE INTERPRETED WITH RESPECT TO BLOOD DRAWING ARTIFACT OR DILUTION ERROR OF ANTICOAGULANT AT THE TIME OF SAMPLING. Performed By: #### 5 7307, 28314 #### [facility] [address] [place] [address], [facility] XR knee RT 2Von 03-11-2021 XR knee RT 2V [address] [address] XRay Report Signed Patient: Richard Boykin MR#: [id number] : 1940 Acct:[id number] Age/Sex: 80 / M ADM Date: 03/11/21 Loc: [facility] Room: Type: [facility] Attending Dr: Godfrey Gomez MD Ordering Provider: Godfrey Gomez MD Date of Service: 03/11/21 XR/XR knee RT 2V: Arthritis of right knee Copies to: Godfrey Gomez MD XR knee RT 2V 03/11/2021 7:52 AM SIGNS AND SYMPTOMS: Status post total right knee arthroplasty placement, follow-up PROTOCOL: Frontal and lateral graphs of the right knee COMPARISON: 10/08/2020 FINDINGS: There is total right knee arthroplasty hardware without hardware complication or malalignment. There is no significant soft tissue swelling. No evidence of fracture. Vascular calcifications are present posteriorly. XR/XR knee RT 2V IMPRESSION: Unchanged total right knee arthroplasty hardware. No fracture or hardware complication. Impression dictated by: Jama Callejas M.D.03/11/2021 1:29 PM Dictation Location: [place] [address] Transcribed By: [facility] 03/11/21 132 Dictated By: Jama Callejas II, MD 03/11/211327 Signed By: 03/11/21 132 [facility] XR knee RT 2V [facility] [employer] Other XR knee RT 2V [facility] [employer] Other XR knee RT 2V [address] [facility] [employer] Other XR knee RT [place] [address] [facility] [employer] Other XR knee RT 2V XRay Report [facility] [employer] Other XR knee RT 2V Signed [employer] Other XR knee RT 2V Patient: Richard Boykin MR#: [id number] [place] [employer] Other XR knee RT 2V : 1940 Acct:[id number] [employer] Other XR knee RT 2V Age/Sex: 80 / M ADM Date: 03/11/21 [employer] Other XR knee RT 2V Loc: [facility] Room: Type : [facility] [employer] Other XR knee RT 2V Attending Dr: Godfrey Gomez MD [employer] Other XR knee RT 2V Ordering Provider: Godfrey Gomez MD [employer] Other XR knee RT 2V Date of Service: 03/11/21 [employer] Other XR knee RT 2V XR/XR knee RT 2V: Arthritis of right knee [employer] Other XR knee RT 2V Copies to: Godfrey Gomez MD [employer] Other XR knee RT 2V XR knee RT 2V 03/11/2021 7:52 AM [employer] Other XR knee RT 2V SIGNS AND SYMPTOMS: Status post total right knee arthroplasty placement, follow-up [employer] Other XR knee RT 2V PROTOCOL: Frontal an d lateral graphs of the right knee [employer] Other XR knee RT 2V COMPARISON: 10/08/2020 [employer] Other XR knee RT 2V FINDINGS: [employer] Other XR knee RT 2V There is total right knee arthroplasty hardware without hardware complication or malalignment. [employer] Other XR knee RT 2V There is no significant soft tissue swelling. No evidence of fracture. Vascular calcifications are [employer] Other XR knee RT 2V present posteriorly. N [employer] Other XR knee RT 2V XR/XR knee RT 2V [employer] Other XR knee RT 2V IMPRESSION: [employer] Other XR knee RT 2V Unchanged total righ t knee arthroplasty hardware. No fracture or hardware complication. [employer] Other XR knee RT 2V Impression dictated by: Jama Callejas M.D.03/11/2021 1:29 PM [employer] Other XR knee RT 2V Dictation Location: [place] [id number] [employer] Other XR knee RT 2V Transcribed By: [facility] 03/11/21 Formerly [facility] [employer] Other XR knee RT 2V Dictated By: Jama Callejas II, MD 03/11/21 [facility] [employer] Other XR knee RT 2V Signed By: [employer] Other XR knee RT 2V 03/11/21 Formerly [facility] [employer] Other Vital Signs Date Time Vital Sign Value Performing Clinician Oracio addison 12-02-2021 11:15-0400 Body height 177.8 cm Teofilo Person Other [employer] Other Encounters Encounter Date Encounter Type Care Provider Facility Start: 12-06-2023 ambulatory Marj Sorensen Facility: [facility] Start: 10-06-2023 End: 10-06-[facility] Start: 10-05-2023 End: 10-05-2023 ambulatory Rigo Edu Facility:[facility] Start: 09-22-2023 End: 09-22-2023 ambulatory Rigo Edu Facility: [facility] Start: 03-13-2023 End: 03-13-2023 ambulatory Rigo Edu Facility: [facility] Start: 03-13-2023 End: 03-13-2023 ambulatory Rigo Edu Facility:[facility] Start: 03-09-2023 ambulatory Rigo Edu Facility: [facility] Start: 03-03-2023 End: 03-03-2023 ambulatory [facility] Start: 02-27-2023 End: 02-27-2023 ambulatory UNKNOWN PROVIDER Facility:[facility] Start: 02-16-2023 End: 02-16-2023 ambulatory [facility] Start: 02-14-2023 End: 02-14-2023 ambulatory Rigo Edu Facility: [facility] Start: 02-14-2023 End: 02-14-2023 ambulatory Rigo Edu Facility:[facility] Start: 01-26-2023 End: 01-26-2023 ambulatory Rigo Edu Facility: [facility] Start: 01-26-2023 End: 01-26-2023 ambulatory Marj Sorensen Facility:[facility] Start: 10-24-2022 End: 10-25-[address] DOCTOR MALCOLM Facility:[facility] Start: 10-21-2022 End: 10-21-2022 ambulatory [facility] Start: 03-26-2022 End: 03-27-[address] DOCTOR MALCOLM Facility:[facility] Start: 01-19-2022 End: 01-19-2022 Patient encounter procedure MD Marj Sorensen Work Phone: [facility] Start: 12-21-2021 End: 12-22-[address] SWEETIE TOMLINSON Facility: Start: 12-02-2021 End: 12-02-2021 ambulatory Teofilo Person Other [employer] Other Start: 12-02-2021 Office outpatient visit 25 minutes Teofilo Person [facility] Start: 12-02-2021 End: 12-02-2021 Patient encounter procedure MD Marj Sorensen Work Phone: [facility] Start: 10-29-2021 End: 11-02-2021 Evaluation and management of inpatient MARJ SORENSEN Facility:[facility] Start: 10-29-2021 Telephone encounter Aly koo MD Work Phone: [facility] Start: 10-28-2021 End: 10-28-2021 ambulatory Godfrey Gomez Other [employer] Other Start: 10-28-2021 Telephone encounter Godfrey Gomez [facility] Start: 03-11-2021 Office outpatient visit 15 minutes Lydia Anderson [facility] Procedures Date Procedure Procedure Detail Performing Clinician Start: 12-02-2021 Plain X-ray of right shoulder MD Marj Sorensen Work Phone: Plan of Treatment Date Care Activity Detail Author Start: 10-29-2021 Welcome to Medicare Visit (G0402) Welcome to Medicare Visit (G0402) [facility] Start: 2006 Pneumococcal vaccination Pneum ococcal Vaccine(s) (65+ yrs) (1 - PCV) [facility] Start: 1991 Shingles (RZV) Vacci ne (1 of 2) Shingles (RZV) Vaccine (1 of 2) [facility] Start: 1959 Tetanus + diphtheria + acellular pertussis vaccine (product) [facility] Start: 1946 COVID-19 Vaccine (1) COVID-19 Vaccin e (1) [facility] Payers Date Payer Category Payer Medicare MEDICARE MEDICAR E PART A & B [id number] 2021-Present [address] [place] [address] Medicare [id number] 2021 Unknown AARP AARP [id number] 2021-Present [address] [place] [address] [id number] 1959 Medicare [id number] 1959 Unknown [id number] 1940 Unknown [id number] [id number]7 1940 Unknown [id number] 2.16.840.1.163571.3.579.2.593 1940 Unknown [id number] 2.16.840.1.287869.3.579.2.593 1941 Unknown [id number] 2.16.840.1.665107.3.579.2.593 1941 Unknown [id number] 2.16.840.1.101091.3.579.2.732 1940 Unknown [id number] 2.16.840.1.501484.3.579.2.718 1941 Unknown [id number] 2.16.840.1.509546.3.579.2.718 1941 Unknown [id number] 2.16.840.1.770612.3.579.2.718 1941 Unknown [id number] 2.16.840.1.625475.3.579.2.718 1941 Unknown [id number] 2.16.840.1.958118.3.579.2.718 1941 Unknown [id number] 2.16.840.1.316072.3.579.2.718 1941 Unknown [id number] 2.16.840.1.272283.3.579.2.718 1940 Unknown [id number] 2.16.840.1.385816.3.579.2.718 1941 Unknown [id number] 2.16.840.1.393590.3.579.2.8 1940 Unknown [id number] 2.16.840.1.429802.3.579.2.718 1940 Unknown [id number] 2.16.840.1.509442.3.579.2.8 Self-pay Self Pay [id number] Social History Date Type Detail Facility Tobacco smoking status FLIS Tobacco smoking consumption unknown [employer] Work Phone: Start: 1940 [facility] Assigned At Sex Assigned At Bir th [employer] Other Start: 02-27-2020 Tobacco smoking status FLIS Never smoked tobacco (finding) [facility] Start: 1940 Sex Assigned At Male F [facility] Medical Equipment Procedure Code Equipment Code Equipment Origin al Text Equipment Identifier Dates Arthroplasty, knee, total, minimally invasive Orthopaedic cement, non-medicated [id number] FDA Start: 02-27-2020 Arthroplasty, knee, total, minimally invasive Uncoated knee femur prosthesis ()[id number] FDA Start: 02-27-2020 Arthroplasty, knee, total, minimally invasive Tibial insert ()[id number] FDA Start: 02-27-2020 Arthroplasty, knee, total, minimally invasive Polyethylene patella prosthesis ()[id number] FDA Start: 02-27-2020 Arthroplasty, knee, total, minimally invasive Knee stem ()[id number] FDA Start: 02-27-2020 Arthroplasty, knee, total, minimally invasive Uncoated knee tibia prosthesis, metallic ()[id number] FDA Start: 02-27-2020 Clinical Notes 03-11-2021 to 12-11-2023 Note Date & Type Note Facility 12-11-2023 Note [id number] #1.00[facility] 10-06-2023 Note [place] [facility] - [facility] Subjective Richard Boykin is a 83 y.o. 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 Right lower lobe pneumonia Chronic diastolic heart failure (CMS/HCC) Nonrheumatic aortic valve stenosis PAD (peripheral artery disease) (CMS/HCC) Mixed hyperglyceridemia History of arthritis Gout Dyspnea on exertion Chronic renal impairment Back pain Ulcer of toe (CMS/HCC) Paroxysmal atrial fibrillation (CMS/HCC) Type 2 diabetes mellitus (CMS/HCC) Diabetes mellitus (CMS/HCC) Hypertension Peripheral arterial occlusive disease (CMS/HCC) Peripheral vascular disease (CMS/HCC) Osteoarthritis Aortic valve stenosis Hyperlipidemia Leg ulcer, left, with unspecified severity (CMS/HCC) JENARO (acute kidney injury) (CMS/HCC) Allergic rhinitis Cellulitis of toe of right foot Vertigo Fatigue Gastroesophageal reflux disease Heart failure (CMS/HCC) Idiopathic peripheral neuropathy Immunodeficiency disorder (CMS/HCC) Morbid obesity (CMS/HCC) Muscle weakness Psoriasis 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 He is a 81-year-old man with prior history of hypertension, diabetes and hypercholesterolemia all on therapy. He was admitted in October 2021 from October 29 to November 02, 2021 at [facility] with MSSA bacteremia likely related to septic joint infection. He had new onset atrial fibrillation with rapid ventricular response. Review of the notes from the hospitalization indicated that he declined transesophageal echocardiogram. The source of the infection was thought to be likely the right shoulder. He was recommended to be on 6 weeks antibiotic. He had atrial fibrillation during the hospitalization and the discharge summary indicates that a discussion was undertaken with him regarding anticoagulation therapy but he preferred to be on full dose aspirin. He reports that he has been having shortness of breath on exertion, NYHA class II-III, bilateral lower extremity edema. Those are chronic. He has no chest pain. He does not feel palpitations. No syncope. He uses a walker to ambulate. He reports having had a toe ulcer in the right foot that has now healed. He reports having had ABIs done about 3 years ago. He follows with a account resolution specialist. Recent testing: ECG 10/25/2021: Atrial fibrillation, nonspecific T wave abnormality. ECG 10/24/2021: Sinus tachycardia with first-degree AV block, nonspecific T wave abnormality. Echocardiogram 10/25/2021: Dilated right ventricle and right atrium, normal left ventricular size and systolic function, mild aortic stenosis, mild tricuspid regurgitation with Doppler evidence of mild elevation of right-sided pressures. Blood testing 12/01/2021: Hemoglobin 12.4, hematocrit 39.7. Blood testing 11/26/2021: Potassium 4.9, BUN 38, creatinine 1.45, EGFR 47. Blood testing 11/02/2021: BUN 28, creatinine 1.0, potassium 4.7. Visit of 01/17/2022: He is seen in follow-up. At last visit I proceeded with the following: For atrial fibrillation I started him on Eliquis 5 mg twice daily with a plan to recheck his creatinine and adjust dose accordingly. I then reduced it to half tablet twice daily based on his elevated creatinine. I checked BNP and BMP and based on those results I later increased Lasix to 40 mg daily. I checked ABIs due to his prior toe ulcer. Today he reports that he still has shortness of breath on exertion, NYHA class II-III. Lower extremity edema is a little bit better. He still has healing blisters in anterior aspect of the left leg. No chest pain. He uses walker to ambulate. He continues to see account resolution specialist and has a nurse that comes to the home for foot care. He has no active ulcers in the feet at this time. Blood testing 12/21/2021: NT proBNP 2047, potassium 5.0, BUN 43, creatinine 2.07, EGFR 31. ABIs 01/01/2022: Right DAVON 0.57, right TBI 0.77, left DAVON 0.88, left TBI 1.54. Monophasic waveforms within the posterior tibial and dorsalis pedis arteries bilaterally. Blunted waveforms at the ankle bilaterally. Visit of 03/25/2022: He is seen in follow up. After last visit and due his volume overload and his blood testing I did the followin. elevated TSH: I as (more content not included)... [facility] 05-25-2023 Note Entered by Jeane Bush on May 25, 2023 15:38:49 EST From: Jeane Bush To: [facility] Sent: 05/25/2023 15:38:49 EST Subject: Medication Management Approved with modifications: pantoprazole (Pantoprazole Sodium 40 MG Oral Tablet Delayed Release) TAKE 1 TABLET BY MOUTH DAILY Qty: 90 tab(s) Days Supply: 90 Refills: 3 Substitutions Allowed Route To Pharmacy - [facility] Note from Pharmacy: Please send a replace/new response with 90-Day Supply if appropriate to maximize member benefit. Requesting 1 year supply. Signed by Jeane Bush --- From: [facility] To: Marj Sorensen MD Sent: May 25, 2023 4:55:58 AM SENIOR TELECOMMUNICATIONS TECHNICIAN Subject: Medication Management Due: May 26, 2023 12:04:06 AM SENIOR TELECOMMUNICATIONS TECHNICIAN On Hold Pending Signature Drug: pantoprazole (pantoprazole 40 mg oral delayed release tablet), TAKE 1 TABLET BY MOUTH DAILY Quantity: 90 tab(s) Days Supply: 90 Refills: 1 Substitutions Allowed Notes from Pharmacy: - First Attempt Ref: [id number] Dispensed Drug: pantoprazole (pantoprazole 40 mg oral delayed release tablet), TAKE 1 TABLET BY MOUTH DAILY Quantity: 90 tab(s) Days Supply: 90 Refills: 3 Substitutions Allowed Notes from Pharmacy: Please send a replace/new response with 90-Day Supply if appropriate to maximize member benefit. Requesting 1 year supply. --- [facility] 03-03-2023 Note Cardiology Clinic No te Subjective Richard Boykin is a 82 y.o. year old male patient with hypertension, diabetes, peripheral artery disease, and hypercholesterolemia, stage 3 CKD, and paroxysmal atrial fibrillation seen in follow-up. 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 Right lower lobe pneumonia Chronic diastolic heart failure (CMS/HCC) Nonrheumatic aortic valve stenosis PAD (peripheral artery disease) (CMS/HCC) Mixed hyperglyceridemia History of arthritis Gout Dyspnea on exertion Chronic renal impairment Back pain Ulcer of toe (CMS/HCC) Paroxysmal atrial fibrillation (CMS/HCC) Type 2 diabetes mellitus (CMS/HCC) Diabetes mellitus (CMS/HCC) Hypertension Peripheral arterial occlusive disease (CMS/HCC) Peripheral vascular disease (CMS/HCC) Osteoarthritis Aortic valve stenosis Hyperlipidemia Leg ulcer, left, with unspecified severity (CMS/HCC) Family History Problem Relation Name Age of Onset Stroke Mother Valvular heart disease Father Social History Tobacco Use Smoking status: Never Smokeless tobacco: Never Substance Use Topics Alcohol use: Not Currently HPI Visit of 12/21/2021: Richard is seen as a new patient. He is a 82-year-old man with prior history of hypertension, diabetes and hypercholesterolemia all on therapy. He was admitted in October 2021 from October 29 to November 02, 2021 at [facility] with MSSA bacteremia likely related to septic joint infection. He had new onset atrial fibrillation with rapid ventricular response. Review of the notes from the hospitalization indicated that he declined transesophageal echocardiogram. The source of the infection was thought to be likely the right shoulder. He was recommended to be on 6 weeks antibiotic. He had atrial fibrillation during the hospitalization and the discharge summary indicates that a discussion was undertaken with him regarding anticoagulation therapy but he preferred to be on full dose aspirin. He reports that he has been having shortness of breath on exertion, NYHA class II-III, bilateral lower extremity edema. Those are chronic. He has no chest pain. He does not feel palpitations. No syncope. He uses a walker to ambulate. He reports having had a toe ulcer in the right foot that has now healed. He reports having had ABIs done about 3 years ago. He follows with a account resolution specialist. Recent testing: ECG 10/25/2021: Atrial fibrillation, nonspecific T wave abnormality. ECG 10/24/2021: Sinus tachycardia with first-degree AV block, nonspecific T wave abnormality. Echocardiogram 10/25/2021: Dilated right ventricle and right atrium, normal left ventricular size and systolic function, mild aortic stenosis, mild tricuspid regurgitation with Doppler evidence of mild elevation of right-sided pressures. Blood testing 12/01/2021: Hemoglobin 12.4, hematocrit 39.7. Blood testing 11/26/2021: Potassium 4.9, BUN 38, creatinine 1.45, EGFR 47. Blood testing 11/02/2021: BUN 28, creatinine 1.0, potassium 4.7. Visit of 01/17/2022: He is seen in follow-up. At last visit I proceeded with the following: For atrial fibrillation I started him on Eliquis 5 mg twice daily with a plan to recheck his creatinine and adjust dose accordingly. I then reduced it to half tablet twice daily based on his elevated creatinine. I checked BNP and BMP and based on those results I later increased Lasix to 40 mg daily. I checked ABIs due to his prior toe ulcer. Today he reports that he still has shortness of breath on exertion, NYHA class II-III. Lower extremity edema is a little bit better. He still has healing blisters in anterior aspect of the left leg. No chest pain. He uses walker to ambulate. He continues to see account resolution specialist and has a nurse that comes to the home for foot care. He has no active ulcers in the feet at this time. Blood testing 12/21/2021: NT proBNP 2048, potassium 5.0, BUN 43, creatinine 2.07, EGFR 31. ABIs 01/01/2022: Right DAVON 0.57, right TBI 0.77, left DAVON 0.88, left TBI 1.54. Monophasic waveforms within the posterior tibial and dorsalis pedis arteries bilaterally. Blunted waveforms at the ankle bilaterally. Visit of 03/25/2022: He is seen in follow up. After last visit and due his volume overload and his blood testing I did the followin. elevated TSH: I asked that his thyroid replacement be adjusted by PCP to 50 mcg daily. 2. very elevated cholesterol. I had him change pravastatin to atrovastatin 80 mg daily. 3. Elevated BNP and renal dysfunction: I had him increase lasix to 40 mg bid. After the above changes he felt a lot better. He has lost close to 40 pounds. His leg swelling has improved significantly. His shortness of breath is much better. His is very happy and he feels great. Update: 03/03 (more content not included)... [facility] 03-03-2023 Note Patient here for [facility]. He was at [facility] and fell recently. Says his knee gave out. He was taken [place] [employer] [place] and flown to [facility]. Lisinopril and hydrochlorothiazide were stopped due to JENARO. He does see nephrology in [place], but not locally in [place]. He denies chest pain, SOB, palpitations, syncope/lightheadedness and bleeding on Eliquis. Had outpatient echo a few weeks ago. Review of Systems Hematologic/Lymphatic: Bruises/bleeds easily. Musculoskeletal: Positive for falls and muscle weakness. All other systems reviewed and are negative. [facility] 02-16-2023 Note Patient here for 3 m o follow up afib, chronic systolic heart failure, and CAD. Had echo last week. Ladle Cleaner increased lisinopril to 5mg in September 2022, after labs in August. He denies chest pain, SOB, palpitations, and bleeding on Eliquis. Doing very well. Review of Systems Cardiovascular: Positive for leg swelling. All other systems reviewed and are negative. [facility] 02-16-2023 Note [facility] CARDIOLOGY PROGR ESS NOTE HPI: Richard Boykin is a 82 y.o. male here for routine f/U HFpEF, PAF, and PAD. Patient presents today for follow up. He is doing well. He denies any cardiac complaints or concerns. He is accompanied by his who corroborates his story. Patient denies any chest pain or shortness of breath. Patient denies any lower extremity edema, orthopnea, or proximal nocturnal dyspnea. No near-syncope or syncope. No dizziness or lightheadedness. He had an echo performed recently which demonstrated normal EF, normal right sided function, mild MR, mild TR, and mild to moderate aortic stenosis. He is asymptomatic. Review of Systems Constitutional: Negative. Respiratory: Negative. Cardiovascular: Negative. Neurological: Negative. Hematological: Negative. All other systems reviewed and are negative. Previous HPI per Dr Tomlinson HPI Visit of 12/21/2021: Richard is seen as a new patient. He is a 81-year-old man with prior history of hypertension, diabetes and hypercholesterolemia all on therapy. He was admitted in October 2021 from October 29 to November 02, 2021 at [facility] with MSSA bacteremia likely related to septic joint infection. He had new onset atrial fibrillation with rapid ventricular response. Review of the notes from the hospitalization indicated that he declined transesophageal echocardiogram. The source of the infection was thought to be likely the right shoulder. He was recommended to be on 6 weeks antibiotic. He had atrial fibrillation during the hospitalization and the discharge summary indicates that a discussion was undertaken with him regarding anticoagulation therapy but he preferred to be on full dose aspirin. He reports that he has been having shortness of breath on exertion, NYHA class II-III, bilateral lower extremity edema. Those are chronic. He has no chest pain. He does not feel palpitations. No syncope. He uses a walker to ambulate. He reports having had a toe ulcer in the right foot that has now healed. He reports having had ABIs done about 3 years ago. He follows with a account resolution specialist. Recent testing: ECG 10/25/2021: Atrial fibrillation, nonspecific T wave abnormality. ECG 10/24/2021: Sinus tachycardia with first-degree AV block, nonspecific T wave abnormality. Echocardiogram 10/25/2021: Dilated right ventricle and right atrium, normal left ventricular size and systolic function, mild aortic stenosis, mild tricuspid regurgitation with Doppler evidence of mild elevation of right-sided pressures. Blood testing 12/01/2021: Hemoglobin 12.4, hematocrit 39.7. Blood testing 11/26/2021: Potassium 4.9, BUN 38, creatinine 1.45, EGFR 47. Blood testing 11/02/2021: BUN 28, creatinine 1.0, potassium 4.7. Visit of 01/17/2022: He is seen in follow-up. At last visit I proceeded with the following: For atrial fibrillation I started him on Eliquis 5 mg twice daily with a plan to recheck his creatinine and adjust dose accordingly. I then reduced it to half tablet twice daily based on his elevated creatinine. I checked BNP and BMP and based on those results I later increased Lasix to 40 mg daily. I checked ABIs due to his prior toe ulcer. Today he reports that he still has shortness of breath on exertion, NYHA class II-III. Lower extremity edema is a little bit better. He still has healing blisters in anterior aspect of the left leg. No chest pain. He uses walker to ambulate. He continues to see account resolution specialist and has a nurse that comes to the home for foot care. He has no active ulcers in the feet at this time. Blood testing 12/21/2021: NT proBNP 2047, potassium 5.0, BUN 43, creatinine 2.07, EGFR 31. ABIs 01/01/2022: Right DAVON 0.57, right TBI 0.77, left DAVON 0.88, left TBI 1.54. Monophasic waveforms within the posterior tibial and dorsalis pedis arteries bilaterally. Blunted waveforms at the ankle bilaterally. Visit of 03/25/2022: He is seen in follow up. After last visit and due his volume overload and his blood testing I did the followin. elevated TSH: I asked that his thyroid replacement be adjusted by PCP to 50 mcg daily. 2. very elevated cholesterol. I had him change pravastatin to atrovastatin 80 mg daily. 3. Elevated BNP and renal dysfunction: I had him increase lasix to 40 mg bid. After the above changes he felt a lot better. He has lost close to 40 pounds. His leg swelling has improved significantly. His shortness of breath is much better. His is very happy and he feels great. Visit Vitals BP 116/70 (BP Location: Left arm, Patient Position: Sitting) Pulse 70 Ht 1.803 m (5' 11 ) Wt 111 kg (244 lb) SpO2 96% BMI 34.03 kg/m??? Smoking Status Never BSA 2.36 m??? No Known Allergies Medications: Current Outpatient Medications on File Prior to Visit Medication Sig Dispense Refill allopurinol (Zyloprim) 300 mg tablet Take 1 tablet every day by oral route. apixaban (Eliquis) 2.5 mg tablet Take 1 tablet (2.5 mg) by mouth i (more content not included)... [facility] 10-21-2022 Note Hypertension is well controlled 128/70 Continue all meds [facility] 10-21-2022 Note Continue ASA, eliquis and atorva statin [facility] 10-21-2022 Note [id number]= 6 age, HTN, CHF, DM and PAD Continue eliquis 2.5 mg bid, and metoprolol 25 mg bid- heart rate well controlled [facility] 10-21-2022 Note Diabetes is uncontro lled and pt needs better glycemic management - May benefit from a referral to endocrinology and will leave this up to the PCP [facility] 10-21-2022 Note Referral to wound ca re for management of diabetic ulceration of LT lower leg with known uncontrolled DM, PAD, and edema. Pt has appointment made and information provided to him- appt is Monday10/24/22 with wound care. Foam dressing applied to ulceration [facility] 10-21-2022 Note [facility]TP CARDIOLOGY PROGR ESS NOTE HPI: Richard Boykin is a 82 y.o. male here for routine f/U HFpEF, PAF, and PAD. Currently states he feels well, ambulatory with walker r/t some imbalance and instability issues that he remains in Physical therapy. Denied chest pain, shortness of breath, orthopnea, palpitations. Denied any bleeding tendencies. States that he has a Sore on my lt leg for about 1-2 months and says the spot was itching and turned into a sore after scratching that area. Has been putting on antibiotic cream and leaving open to air. Review of Systems Constitutional: Negative. Respiratory: Negative. Cardiovascular: Negative. Neurological: Negative. Hematological: Negative. All other systems reviewed and are negative. Previous HPI per Dr Tomlinson HPI Visit of 12/21/2021: Richard is seen as a new patient. He is a 81-year-old man with prior history of hypertension, diabetes and hypercholesterolemia all on therapy. He was admitted in October 2021 from October 29 to November 02, 2021 at [facility] with MSSA bacteremia likely related to septic joint infection. He had new onset atrial fibrillation with rapid ventricular response. Review of the notes from the hospitalization indicated that he declined transesophageal echocardiogram. The source of the infection was thought to be likely the right shoulder. He was recommended to be on 6 weeks antibiotic. He had atrial fibrillation during the hospitalization and the discharge summary indicates that a discussion was undertaken with him regarding anticoagulation therapy but he preferred to be on full dose aspirin. He reports that he has been having shortness of breath on exertion, NYHA class II-III, bilateral lower extremity edema. Those are chronic. He has no chest pain. He does not feel palpitations. No syncope. He uses a walker to ambulate. He reports having had a toe ulcer in the right foot that has now healed. He reports having had ABIs done about 3 years ago. He follows with a account resolution specialist. Recent testing: ECG 10/25/2021: Atrial fibrillation, nonspecific T wave abnormality. ECG 10/24/2021: Sinus tachycardia with first-degree AV block, nonspecific T wave abnormality. Echocardiogram 10/25/2021: Dilated right ventricle and right atrium, normal left ventricular size and systolic function, mild aortic stenosis, mild tricuspid regurgitation with Doppler evidence of mild elevation of right-sided pressures. Blood testing 12/01/2021: Hemoglobin 12.4, hematocrit 39.7. Blood testing 11/26/2021: Potassium 4.9, BUN 38, creatinine 1.45, EGFR 47. Blood testing 11/02/2021: BUN 28, creatinine 1.0, potassium 4.7. Visit of 01/17/2022: He is seen in follow-up. At last visit I proceeded with the following: For atrial fibrillation I started him on Eliquis 5 mg twice daily with a plan to recheck his creatinine and adjust dose accordingly. I then reduced it to half tablet twice daily based on his elevated creatinine. I checked BNP and BMP and based on those results I later increased Lasix to 40 mg daily. I checked ABIs due to his prior toe ulcer. Today he reports that he still has shortness of breath on exertion, NYHA class II-III. Lower extremity edema is a little bit better. He still has healing blisters in anterior aspect of the left leg. No chest pain. He uses walker to ambulate. He continues to see account resolution specialist and has a nurse that comes to the home for foot care. He has no active ulcers in the feet at this time. Blood testing 12/21/2021: NT proBNP 2048, potassium 5.0, BUN 43, creatinine 2.07, EGFR 31. ABIs 01/01/2022: Right DAVON 0.57, right TBI 0.77, left DAOVN 0.88, left TBI 1.54. Monophasic waveforms within the posterior tibial and dorsalis pedis arteries bilaterally. Blunted waveforms at the ankle bilaterally. Visit of 03/25/2022: He is seen in follow up. After last visit and due his volume overload and his blood testing I did the followin. elevated TSH: I asked that his thyroid replacement be adjusted by PCP to 50 mcg daily. 2. very elevated cholesterol. I had him change pravastatin to atrovastatin 80 mg daily. 3. Elevated BNP and renal dysfunction: I had him increase lasix to 40 mg bid. After the above changes he felt a lot better. He has lost close to 40 pounds. His leg swelling has improved significantly. His shortness of breath is much better. His is very happy and he feels great. Visit Vitals BP 128/70 (BP Location: Left arm, Patient Position: Sitting) Pulse 69 Ht 1.803 m (5' 11 ) Wt 109 kg (241 lb) SpO2 94% BMI 33.61 kg/m??? Smoking Status Never BSA 2.34 m??? No Known Allergies Medications: Current Outpatient Medications on File Prior to Visit Medication Sig Dispense Refill allopurinol (Zyloprim) 300 mg tablet Take 1 tablet every day by oral route. aspirin 81 mg chewable tablet Chew 1 tablet (81 mg) in the morning. 90 tablet 3 atorvastatin (Lipitor) 80 mg tablet Take 80 mg by mouth in the morning. empagl (more content not included)... [facility] 10-21-2022 Note Patient here for 6 m o follow up PAF, chronic diastolic heart failure, PAD, aortic valve stenosis, and hypertension. Had routine labs in August 2022. Denies chest pain, SOB, palpitations, and bleeding on Eliquis. Just got back from [place] last night after 7 months. Review of Systems Hematologic/Lymphatic: Bruises/bleeds easily. Musculoskeletal: Positive for muscle weakness. All other systems reviewed and are negative. [facility] 10-21-2022 Note Reviewed echo from - Mild AO stenosis Will monitor with routine echcoardiogram D/W pt to call office for increased shortness of breath, palpitations, chest pain, lightheadedness/dizziness or syncope and he voiced understanding [facility] 10-21-2022 Note Coronary artery dise ase is stable without any concerning symptoms continue risk factor modifications- heart healthy diet, regular exercise as tolerated and continue all medications. [facility] 10-21-2022 Note NYHC II-III currentl y euvolemic without exacerbation Continue GDMT- lasix 40 mg daily and jardiance Diuretic therapy- lasix decreased from bid to daily per neprhologist Monitor daily weights, I&O, fluid restriction 1.5-2L/day, renal function and electrolytes- [facility] 10-21-2022 Note [id number] score i s 4 due to age, hypertension, diabetes. Eliquis anticoagulation [facility] 12-02-2021 Evaluation note Encounter Date Diagnosis Assessment Notes Nov, Acute pain of right shoulder (ICD-10 - M25.511) Nov, Rotator cuff arthropathy of right shoulder (ICD-10 - M12.811) Extensive discussion about current condition and treatment options available. This appears to be a chronic rotator cuff tear. We discussed the importance of maintaining shoulder motion and gentle cuff strengthening exericse. Discussed the use of anti-inflammator y medication. Discussed that occasional cortisone injection may be helpful for pain relief. Discussed surgical options including arthroscopy and arthroplasty replacement options. Patient having very little pain and is doing well at this time. Nov, Other Patient has complaints of right small PIP flexion contracture due to injury 8 months ago, unable to fully extend the finger. Patient instructed to schedule with Dr Da Silva to discuss treatment if continues to cause issues [facility] Other 05-18-2022 NoteMR#: [id number] [facility] Pt. Name: Richard Boykin Admitted: 10/29/2021 Discharged: 11/02/2021 Date of : 1940 Physician: Alicia Sweet MD DISCHARGE SUMMARY FINAL DIAGNOSES: 1. Methicillin-susceptible Staphylococcus aureus bacteremia. 2. Probable septic joint infection. 3. Right knee replacement. 4. New onset atrial fibrillation with RVR. 5. Nonobstructive coronary artery disease and peripheral arterial disease. 6. Efm-xbakrgc-wfrvdfmkb diabetes mellitus. 7. Hypertension. HISTORY OF PRESENT ILLNESS AND HOSPITALIZATION COURSE: The patient is an 81-year-old male, who was transferred from an outside facility after presenting accompanied by family with complaints of fever, confusion and urinary incontinence. The patient was complaining of right shoulder pain. Apparently, his blood cultures over there were positive for MSSA and he has been treated with Ancef. He had a CT scan images of his neck and right shoulder, which showed findings compatible with suspected septic arthritis of the right sternoclavicular joint along with the myositis involving the right sternocleidomastoid mastoid muscle. The patient reports that this pain is relatively well controlled with pain medication. He also was treated for cellulitis of his lower extremities, which he reported has been improving. The patient was admitted to the medical floor. He was seen by Infectious Disease team. Repeat blood cultures on October 29, remained negative. He had a TTE at [facility] with poor image quality. There were no evidence of secondary source of infection on physical exam. Apparently, his repeat cultures at [facility] on October 24 and October 25, remained negative. The patient declined FELICIA at this time. The source is thought to be likely the right shoulder. Infectious Disease recommended for him to be on cefazolin for 6 weeks with weekly CBC, BMP, ESR and CRP checks. He received a PICC line for that. Orthopedics were following up to evaluate his need for right shoulder surgery. The patient underwent IR aspiration and bone biopsy of his right SC joint on November 01. Apparently, the fluid sent/aspirated for culture were not enough. Orthopedics had no further plan for surgical intervention. The patient was discharged home in stable condition. He will follow up with Infectious Disease as an outpatient, he was scheduled for that. During the bone biopsy, the patient developed atrial fibrillation, was thought to be new for him. The patient reports that he had atrial fibrillation in the past and being on anticoagulation was discussed with him. He reports that he would prefer to be on full dose of aspirin. He understands that this will not to provide full protection against stroke events. He would like to further discuss his need for full anticoagulation with the events and promotions assistant on an outpatient basis. He understands that he will remain at risk for having stroke. The patient was discharged in stable condition to home on November 02, with home health care. PHYSICAL EXAMINATION: On the day of discharge as follows: GENERAL: He is an elderly male, nontoxic appearing. HEENT: Pupils equal, round, and reactive to light. Extraocular muscles intact. Mucous membranes moist. LUNGS: Clear to auscultation with no added sounds. HEART: Normal S1, S2. Regular rate and rhythm. No murmurs. ABDOMEN: Soft, nontender, nondistended. Positive bowel sounds. INSTRUCTIONS ON DISCHARGE: He was instructed to seek medical attention if he develops any recurrence of his symptoms including subjective fever, increased pain of his right shoulder, or if he develops any chest pain, shortness of breath, lightheadedness, or any signs or symptoms of stroke. TIME OF DISCHARGE: 45 minutes. Electronically Signed by: Alicia Sweet MD 11/04/2021 03:06 P Alicia Sweet MD Date Dict: 11/02/2021/03:32 P/Alicia Sweet MD Date Trans: 11/03/2021 09:12 A/lindsay [id number] cc: Marj Sorensen M.D. [address] [place] [id number] Miscellaneous Notes* Telephone Encounter - Aly Mcclelland MD - 10/29/2021 2:59 PM EDT I was called by BIANCA about patient with septic arthritis and bacteremia requesting transfer for higher level of care. 81 obese, afib, CAD, PAD, hx hip/knee replacement recently moved back from [place]. Presented on 10/24 with R shoulder pain with MSSA bacteremia 2/2 bilateral cellulitis/venous stasis. CT scan showed septic arthritis of R sternoclavicular joint + myosititis +absecss Requesting formal evaluation by orthopedics vs IR for possible drainage. He is currently on IV ancef 2g every 8 hours. Surface echo without vegetations. Repeat cultures with NGTD. Last positive blood cultures from 10/24. VS 36.8, 84, 16, 138/70 and 92% RA WBC 11k CRP 30 Scr 1.1 Glu 200-220 Requested imaging from outside hospital. Patient has been accepted to medicine service. Please contact [facility] if there is any change in disposition or hemodynamic instability. Aly Mcclelland MD documented in this [id number] Evaluation note* Encounter Date Diagnosis Assessment Notes Treatment Notes Treatment Clinical Notes Feb, Status post total right knee replacement (ICD-10 - Z96.651) Xrays were reviewed with patient in detail. Patient is progressing well from surgery. We discussed the importance of continuing to work on range of motion and strength exercise. Call with any concerns or questions. Feb, Arthritis of right knee (ICD-10 - M17.11) Feb, Acute idiopathic gout of right ankle (ICD-10 - M10.071) Feb, Restless leg syndrome (ICD-10 - G25.81) [facility] Other Evaluation noteNo InformationNortGeising[facility] [employer] Other Evaluation noteNo assessment information available [facility] Work Phone: History general Narrative - Reported* Type Description Date Medical History PVD Medical History psoriatic arthritis Medical History diabetes mallitus Medical History Gout arthrits Medical History hypertension Surgical History Bilateral hip replacement Surgical History cataract Surgical History left total hip revision Surgical History RTKA [facility] Other Summary Purpose Family History No Family History Records Found Relationship Condition Age at Onset Recorded Date/T dell father Diabetes mellitus Unknown Alzheimer's disease Unknown Not Specified Cerebrovascular accident (CVA) Unknown Advance Directives No Advanced Directives Records Found Advance Directive Response Recorded Date/ Time Advance Directives No November 12 0 9:24am Chief Complaint and Reason for Visit Chief Complaint M25.511 Congestive Heart Failure Additional Source Comments (unrecognized sect ion and content) No Status Records FoundNo Status Records FoundNo Status Records FoundNo Status Records FoundNo Status Records FoundNo Status Records Found INFORMATION SOURCE (unrecogn ized section and content) DATE CREATED AUTHOR 12/04/2021 [facility] DATE CREATED AUTHOR AUTHOR'S ORGANIZ ATION 01/31/2022 [facility] DATE CREATED AUTHOR AUTHOR'S ORGANIZ ATION 10/25/2022 [facility] DATE CREATED AUTHOR AUTHOR'S ORGANIZ ATION 02/28/2023 [facility] DATE CREATED AUTHOR AUTHOR'S ORGANIZ ATION 10/07/2023 [facility] DATE CREATED AUTHOR AUTHOR'S ORGANIZ ATION 12/20/2023 [facility] REASON FOR VISIT (unrecogniz ed section and content) Recheck Right KneeInfectionR ight Shoulder Pain Care Teams (unrecognized sec tion and content) Team Status: Inactive Member Role Status Dates Marj Sorensen MD Primary Care Provider Active Teofilo Person MD Attending Provider Active Team Status: Inactive Member Role Status Dates Marj Sorensen MD Primary Care Provider Active Sweetie Tomlinson MD Attending Provider Active Team Status: Active Member Role Status Dates Marj Sorensen MD Primary Care Provider Active Goals (unrecognized section and content) Goals may be documented in a n alternate section FOR RECORDS PERTAINING TO PATIENTS WHO ARE OR HAVE BEEN ENROLLED IN A CHEMICAL DEPENDENCY/SUBSTANCEABUSE PROGRAM, SOME INFORMATION MAY BE OMITTED. This clinical summary was aggregated from multiple sources. Caution should be exercised in using it in the provision of clinical care. This summary normalizes information from multiple sources, and as a consequence, information in this document may materially change the coding, format and clinical context of patient data. In addition, data may be omitted in some cases. CLINICAL DECISIONS SHOULD BE BASED ON THE PRIMARY CLINICAL RECORDS. [employer] provides no warranty or guarantee of the accuracy or completeness of information in this document.
== END 2023-12-25 16:05 | disposition home or self-care (01) ==
LOC: WC 16:04
PROVIDERS: PCP Family Medicine; Visit Provider Physician Assistant
DX: E11.621 Type 2 diabetes mellitus with foot ulcer (principal); L97.511 Non-pressure chronic ulcer of other part of right foot limited to breakdown of skin
CPT/HCPCS: G0463

== ENCOUNTER 2024-01-15 14:41 | Outpatient (OUT) | payer MEDICARE, SELFPAY | END 2024-01-15 14:42 | disposition home or self-care (01) | LOC: WC 14:42 | PROVIDERS: PCP Family Medicine; Visit Provider Physician Assistant | DX: E11.621 Type 2 diabetes mellitus with foot ulcer (principal); L97.511 Non-pressure chronic ulcer of other part of right foot limited to breakdown of skin; L98.9 Disorder of the skin and subcutaneous tissue, unspecified | CPT/HCPCS: G0463 ==

== ENCOUNTER 2024-02-09 09:47 | Outpatient (OUT) | payer MEDICARE, SELFPAY ==
--- OUTSIDE RECORDS SUMMARY | 2024-02-09 10:07 | XMS_ITS | CCD ---
Author Organization [facility] Care Team Providers Care Chemical Processor Name Role Phone Unavailable Primary Care Provider UnavailMARJ Cooper Primary Care Unavailable MORTON Referring Unavailable JILLIAN HERNADEZ Admitting Unavailable ALICIA SWEET Attending Unavailable Lydia Anderson Unavailable Godfrey Gomez Unavailable Teofilo Person Unavailable MD Marj Sorensen Primary Care Provider [phone] MD Teofilo Person Attending Provider MD Sweetie [...] Care Unavailable Marj Sorensen Primary Care Unavailable Marj Sorensen Attending Unavailable Marj Sorensen Primary Care Unavailable Marj Sorensen Attending Unavailable Marj Sorensen Attending Unavailable Marj Sorensen Primary Care Unavailable CAREY FUNG Attending Unavailable Marj Sorensen Primary Care Unavailable CAREY FUNG Admitting Unavailable CAREY FUNG Attending Unavailable Marj Sorensen Primary Care Unavailable CAREY FUNG Admitting Unavailable Marj Sorensen Admitting Unavailable Marj Sorensen Primary Care Unavailable Marj Sorensen Attending Unavailable Medications Current Medications Medication Drug Class(es) [...] 12, 2020 12:00am take 1 tablet by [facility] every twenty-four hours Glimepiride 4 MG 1 [...] Daily at bedtime February 27, 2020 12:00am Fljfayvg-Kgp-Qpwjb -Vit K-Lycop (Men's 50 Plus Daily Formula) 400-20-370 mcg Tablet (1 source) Start: 02-12-2020 take 1 tablet by mouth once daily Tmqsgxpk-Lsj-Bzlj c-Vit K-Lycop (Men's 50 Plus Daily Formula) [...] before bedtime Orally Once a day Active Whitetail Oil-Bowman-3 Fatty Acids (Whitetail Oil-1000) 1,000-200 mg Capsule (1 source) Start: 02-12-2020 take 1 capsule by mouth once daily Whitetail Oil-Bowman-3 Fatty Acids (Whitetail Oil-1000) 1,000-200 mg Capsule Active 1 CAP [...] disease (2 sources) Atherosclerotic heart disease of platinum coronary artery without angina pectoris; Translations: [Atherosclerotic heart disease of platinum coronary artery without angina pectoris] Onset: 02-19-2022 [...] Test Name Value Interpretation Reference Range Facility Provider Orderson 01-29-2024 Provider Orders [id number]-26[facility]24 [facility] EagofxdyUXw1hQe+PGhlYW Q+OO3MHPGoE69isUCbkT1h M7JWDStKGzkyYHFWIChBBa PhkuNfQO2zePGeGMHu IC8+VG5oMXMtMqdvyPCaj4 N7tVO8D81dbb0sFEfpcXW0 EKZtDpCwelnvf7vtzAy1IH cuNmluOyBt YGPhbD65RTO7zA40Cq61fQ BamZDcv8ndsQn6JsFgAPDe LOV5lPwkJGlmf3EwKZOeY0 3mhOXcs2V0 YKPadZkaqFIkDvWuaGH5dZ 1pURllzypbl0okfyusKej6 yf42bMZke2T4wTO8K1Inie O7PLYbiAEy WpsdfQHOaP4zinyxe5maed wcXwFbSQPiMZh2XWz4ILUj qPpkDxFeBB55GCW2AAKgoj ZmK5IjLGYo fYcpPhZ2h7M6Vt1JV2LZSp umF7DBUTJUPXlrnFL+PC90 qx89J5RpOsjhJoa0EOAgQA C7mSR3fG5i SAGeGBhzs2O0dOX2Q2Pxir Riov5ug0nkBCBiGGxxG90n fIZcr1F9RZQahBZ7OFZnwJ qnIrYkzC69 Oyc+IQNvmVsns6TuQzpst1 tkx6dehBn3ZpzwRPTclySx kMxbKDN3b7VaUx2nHQVdaR O9aQL0nV3x JrYtMmW4KRkvN250FgKwaZ SbElrjO49hW2MayJN+PHRy Erw6DPDaqWafCB6iX2HkOJ RpbmctbGVm hMhpBL2yWYRdypqiGKNiuI 9bPAKsY1a8CgMoVsF9IPfu C7TsNYHshtkdYg47qX2mHu FpGfW1OMkf P2DbnqM9GYUtbCNmDYcjFZ A0X06eo9X8RJTeLHDgREW5 eKH0rA8oeLdcakqjwOSvrF sgdmVydGlj IUcjABmsH297TTOwuEtwQp NvZGluZyBEYXRlOiAgMDgv MDkvMjAyNDwvdGQ+PHRkIH O8kSslNLOa zBVvJUvaEn1ysEpnlYtqYM 5sWRRhdtztAXOcaM2vCUSs gRJbyRlhAE5sPWFmpvocs9 24UtPcGWI0 EGTdvOHxQ8AfhL2mHmYrWC OgPBVmO9OtnWLfZVpkZ688 GDjnTyV9XILifrHjF3IfJW FsaWduOiB0 p4G2Xe0Vn4RxwebyH5AqsS AvVhOtOotkHKv3E0NfFfqp dHI+EG81QSLkSZ28ZPw4WU M9sPbxUMnz VOCrG0LiiP0jZlYtZWAnGQ RkOyc+PHRhYmxlIHdpZHRo EWfjUHIiDfTsnUfwBE9aYw 9yZGVyLWNv aAiiqAXuNfWpb5fhDACzDW xrBO8zaNgdP0BqrRS1JOSb f2s4Kj29D55wH9JxnIP+PG VbaBM1tSO5 rZ4aBiAaIrL2IQfjQ544Yr KhnRJqZonke9ubg2lywZc9 GbE9BRHxxoTmxAhpHDI9g4 AjPs53Z69s IHdpZHRoPSIxNSUiIHZhbG jxqu0qdW4nWx9+PGNvbCB3 iVB2wE2cHdJfTaT1SCzaO6 49InRvcCIv Fwxal8rcd1detVs5VbPaBC QjnbIoaYbqXFD0f4UtBq40 Z8GtuQpkc3CyTgq7fh67vG Jdg2L8xIX9 Q2JjPOQglhamlVXizVfrRK 9eTDXwndhhNCJmeG3fJPOd N3a1XdNnBxU6PRfqL4Huby R2SRZxhNTb JXEvuMJUhQ1buwxwu4fill hxMxNgJCHeEDx6QYf6JUQe cTmvCoXjVCS9GuN2IFL6vA SwkU9udWxx zgvxnQ7mHeb+VAX9gRMraM CBXG9dMmafcCE+PHRkIHN0 yQssRYelMCEbzF1mTPErO3 f4UdSiUbR1 INirO6XbziS0YTEpdDXkFA YtbXEDlM4eijvhs5bysnqt SzIeOCRfUTi9DEv8RRHqcU duOiBsZWZ0 PdI9JPR4aMLlzT5kfYvmqp ujkA1mRhw+QmlydGggRGF0 FTr7U2HxKxe9TCZgnCyzBD 0ncGFkZGlu Dd6gwHbonAisBA1kMICxoc eqd619QyBfn5geIYNbxOQs QGqgKRC3Z12pe3A5FAVoPG IqENM7aIN3 uD9yvQzecyczvPBqcGznbu NjjLvaGZxlDVluJ062ABAt gSerQpBpREu0X4KuInm5MV PlnZjsGR9g iJQrDLtfTv2nyCwlqIsrOV 0kUEUxtqsfv493YdAhm2qg YOTszUGdHGuwNXV1H48sw9 I5DIUjAPXh YZS3nVN5kF7qsCwepcrwmB VmdDsgdmVydGljYWwtYWxp D891VLKfbVanBeGogBi1F9 DpLiz1DZVp uXbiFZ0iyRUaDQjkHo4mgB zvdFzaPB0aICJuhoami057 OxLjc7jgUXBteULtNNmzRQ R6M71dg8A9 SUEeVSPfCZG6vTC9oO3luP lnbjogbGVmdDsgdmVydGlj ZYtgYBmcN853IPGgxChpQv BhdGllbnQg AGrrUBb5S6PnXmjboXI+PC 61WFTeOG91tMUuoKGyp4sy wBn3VxUrZKPgPDV6cGerTL cvc3LoRVOz P25foIRgl4Q2AINaxSjxtP RpTwJvnZK3zH2bIKsvuhqf p6xvrimiQqwph7ctwi61vB 25Z51sFPgy ZHRoPSIzMCUiIHZhbGlnbj 0weT4tOs2+DZMdnPC3iNA8 mR2mGMNlFfU1GUpiE037Ev RvcCIvPjxj x1wab5eckMh3RfG4FVEmqn OaeUcbJAY6k5SaNt00A31y IHdpZHRoPSIyMCUiIHZhbG httc9dzK8a Ii8+ALYquJQ7eWR5mY9dPk SbYvT9PSnbG628IsLduZOf VhgfQ68yS7AehXJ+PHRyPj b1JBYdrAqb JM2xrOKwAJvbMg9wERI4Vn DeQxEwTWlqJ9OeCKXzohpo qlgzyCN9NBRrUCDrcQ54Ud 9udDogMTBw dLEFlJ8scwgev2eppfapYt XyNJLsDFd6ADi4WLAjfWee EgOcSCN7OmU5DAK4sGHezQ 1hbGlnbjog xX5aK3WxFXPubiymAn86jG 2rFnNrGbG8JKtxOun+U0NI RVJGLCBSQVkgQVJUSFVSPC 56QY01fPBc v0A6pNZ3P6MrDRArmjfkdq fzlMI4EGVpDBKjmO07nALk LZsfVl8vp3M1w960NJDfQR TcqC36Lv1s wEivCPWkeFYGvZ2vnjsxf8 eoandqDkNhRYGtPQe6RBd0 TWYdwRkuOxObARO3NsE4KC T5oORqkX3f aJotwuvrrA4fThr+MDEvMD LjDSe7AeeydGO+PHRkIHN0 dDvfLYfzCONtrG3zZSFjS3 o8MsIaSfU1 SNxyD9XrBORjkjciWl80mP 4tNzGsHbG7WOxtW8HvcbL4 SMSlbIGqXJcuCQI8E21ur2 F2HPJjYAPw XXJ5cEL3gT2akWqkxoahhU VmdDsgdmVydGljYWwtYWxp T587GDZtlFckFmnuBGyoOQ OlLM30BW12 fGSag7N1zWP1Q7VlHFHivd lbudyqoMW3RNJqWDZczG08 vOZlPUalPp9dj7W2g161DH AdDREjwH30 Wu3lxPotGCHhqWKNlW7pyg xvv7pzdtqxYjBeFUWuKSl0 UIf2TREcaVqlQrPzNME5Pn Q8OER4fLQy aI3ysSoyqkebiS0cBtf+TU FMRTwvdGQ+FGLnAWG1gUni LEdfOSXaqP5wUSPnQ8g5Xf XmNpP5KOdd A6ZzDGDhwzerCo88uW2eGz BmObN2HIerV1SwcxD6LPTn lRQpHHsvZJE2Z45cn3I4UP MwMDAwMDA7 cMR6dG2pgUysyandkQUmuJ telrKptWqhITqrWVatZ835 GDWzxPdtQkQrE3QxclwrGs BPdXRwYXRp JH74VM38SY31I7AmDfxjsJ FibGU+PHRhYmxlIHdpZHRo GXtsNNNqQtScoOqpFD9zGf 9yZGVyLWNv eXgqsHQjGsRnn5kqGOCmKE dcIW4ahTlhL2TjoUD4NSHf s7n5Wg42W50oV8BeqJK+PG BduSU4iPX5 dF1yJlOrIsQ9NPvrQ719Ll MllMFbQgoqw0pag6sejHx2 QuYzGZIzbhTsdOjhNSJ2c3 IwOp68Q27a IHdpZHRoPSIyMCUiIHZhbG peaa2frD1jNg9+PGNvbCB3 zZK5kG7qMzEfLqU4TLltC2 49InRvcCIv QkvzA62pT8TfdMT+PHRyPj n0RIOhmEmmHT9jePXhZAdd An9uHIF9BjPrUqEkUGxmT8 BhZGRpbmct yjeglZC8WOAxBQUksW28Ag 5dwSnvIp9lAYFoSAQ4BNZp iPPhP2NfmJ2rIvTuYENdGV RzQ2MdzZLi AXlrH414WCccKhD3CDSult XvS5LfXWZjsWgmUtL9h8D7 Nz4BcRbdrRPaPV9oOvMlXJ t5T9GfYqp4 ECKsaThkJH3moJExZScwPf 5noRwhdNcbLX2sZHMziaxa h023NbYtg3pxWJVmmUScVX rhZFY9R37f p2Q0HWExXNCcMAT3gXM8mD 1hbGlnbjogbGVmdDsgdmVy jMzaOJxeDTwoY147LBYwfL snPkZJTjo8 J6CyAjv1UBNehMfxGS3mdU CuJHckXf6uyDfblAjiCY3o BQDncjqoo774QtFnc1dcMH EwcHQgVGlt LQJ5F04sf3J8LOIhMOOvUC E3yML6gX1trGsdambogKYj dDsgdmVydGljYWwtYWxpZ2 46IHRvcDsn Za2NHgp5G3VgZka6ABCzlJ scHE0fcDIuIOdlXo3vwMri tEbkKR0aCFNzmauru379Qi Fgs5cjYMEw dVCfOIftJDG3I92iw9R8DU QqDCVgCMM3oNI4gX2hvNqq bjogbGVmdDsgdmVydGljYW ykDUqyC911 IHRvcDsnPlBheWVyOjwvdG Q+XJ44vr81Y4ZoWrknIbg9 FWCpXNH5oKD2eI6gLLGtFK [id number] J2J (more content not included)... [facility] Office/Clinic Noteon 024 Office/Clinic Note Patient: RICHARD BOYKIN Age: 83 years Sex: MALE : 1940 Associated Diagnoses: Diabetes; Acquired hypothyroidism; HTN (hypertension) Author: Marj Sorensen MD A History of Present Illness 83-year-old male with type 2 diabetes presents today for 4-month checkup. His A1c at last visit was over 10 today is down to 96. He does have a continuous glucose monitor that he uses multiple times during the day. His average was reviewed and at night he is dropping down at times will be very low in the morning. As blood sugars are then very high during the day. He is taking about 20 units of Toujeo at night. He does take oral medications in the morning. Reviewing his chart he is also due for blood work. He does continue to follow-up with his systems librarian. He is also undergoing physical therapy at present time to work on strengthening of his legs. He does continue to walk with a walker. Review of Systems Constitutional: Negative. Ear/Nose/Mouth/Throat: Negative. Respiratory: Negative. Cardiovascular: Negative. Musculoskeletal: Negative except as documented in history of present illness. Health Status Allergies: Allergic Reactions (Selected) No known allergies, Allergies (1) Active Severity Reaction No known allergies None Documented Current medications: (Selected) Prescriptions Prescribed MathZeee 2 14-day sensors: See Instructions, Monitor blood sugars 3-4 times a day qAC and Qhs., 2 EA, 11 Refill(s) [employer] brand glucose test strips: See Instructions, [...] = 1 tab(s), PO, BID, 0 Refill(s) hydrochlorothiazide-li sinopril 12.5 mg-10 mg oral tablet: 1 tab(s), Oral, Daily, 90 tab(s), 0 Refill(s) loratadine 10 mg oral tablet: [...] mcg/inh nasal spray 2 spray(s), Nasal, Daily Freestyle josee 2 14-day sensors See Instructions furosemide 40 mg oral tablet 40 mg = 1 tab(s), PO, BID glimepiride 4 mg oral tablet 4 mg = 1 tab(s), PO, BID hydrochlorothiazide-li sinopril 12.5 mg-10 mg oral tablet 1 tab(s), Oral, Daily Jardiance 25 mg oral tablet 25 mg = 1 tab(s), PO, [facility] [employer] glucose [facility] strips See Instructions levothyroxine 50 mcg (0.05 mg) oral tablet 50 mcg = 1 tab(s), PO, Daily loratadine 10 mg oral tablet 10 mg = 1 tab(s), PO, Daily Lotrimin AF 2% topical spray 1 spray(s), TOP, BID Metoprolol Tartrate 25 mg oral tablet 25 mg = 1 tab(s), PO, BID Multivitamin, generic 1 tab(s), PO, Daily nystatin 100,000 units/g topical powder 1 josé, TOP, BID pantoprazole 40 mg oral delayed release tablet 1 tab(s), Oral, Daily rOPINIRole 2 mg oral tablet 4 mg = 2 tab(s), PO, Once a day (at bedtime) Singulair 10 mg oral tablet 10 mg = 1 tab(s), PO, Once a day (at bedtime) Toujeo SoloStar 300 units/mL subcutaneous francisco javier (more content not included)... [facility] Coding Summaryon 12-12-2023 Coding Summary [facility] FjaypeggLGi5yWl+PGhlYW Q+SM4QPUZkB14xnZKwbR3h S5FHVVyFAmaxTDDKOZjCFf KmihFvNQ9lyPLyYLQp IC8+HZ1oUIHdUqyubJNbs5 W0oGF2P77qsw8mTOiniLY3 VHRzLyLatqugq8txuVd9GI cuNmluOyBt FCKvrL37HID3pU44Bk36aH WnvSKbh5eniDj7PpZiSWDs LBN6vQqtZKzem2UpQMVmL9 9efKQmf3M0 NRFufRbobTUgOoMqlXC2kD 9eJBfldkusy4jpilukNdb2 jk43gHNlo6T8gEX3D6Ezid M7NOQczJIy EhhqeJXPnU9wjrejf1nflg yyUjFhMUMeOEw4DBf4KMDl xKreKqHyOP84UEM2DDCijn ZwC5RfXSCa lBqiIdO9h2D4Xo5XB0AXMz lqU6HNPMWLPAwaiPN+PC90 de14X5QkBvhbIwo8DMUzLA R9sEI4iM4l VKTvRMtro2D4zRU0B0Myaf Caoq3ll7gyTLApMUqvM79z hSUif7A6LREmwVB1NUNpsQ jaGsUynH60 Oyc+CXYnkCfgj5HdZcxoj2 lga2dkrIz0UkqmEOMmzbUn bEchLTT7k2WcAi4fAHBeyY V5mUW2xI2s CdIgOoH8ORjfQ843BeBwoL WyHygvW59eB6SmySA+PHRy Kzd1YOXitMwyNM6dZ9NdUH RpbmctbGVm aVvhZG9gSNGmuvbkDPNquR 0bQXVgV0r6YxXlYaH8LTlb U2XxNHQcpxmrUw40bM3qDj BuRtX1EOyu Z9MmuzU9XFRhkCPoKPnxXC G3C84ev0G3JLNrCQBeMXV4 xWZ0mU9wxUaghlppqAUqoY sgdmVydGlj ABukFZzlT957ZINqqXbuIb NvZGluZyBEYXRlOiAgMDYv MjUvMjAyNDwvdGQ+PHRkIH G4nHlnPYYl pHPaGTgdRs0syJnycUlhIK 2iEXYcfeynBCPbgI1nYJJc bXOzrXukJM2zWHOmslhsb3 33MoCgOXM2 ZNVpxBOjV5DglI5bDsBfJP PmMOLgB8AnkRDpXLbnP070 XIsuCtS4LZMbmjZoD5DzQI FsaWduOiB0 t0Y5Tk4Ms7CapuwxV4YidX BbWaMhFyepETo8Y5HgNjxr dHI+BI08RCKxIM07BHc8EI T7aOmbAWzx GLFwY6JzyY7tMuMqPBTcIA RkOyc+PHRhYmxlIHdpZHRo REiiEQZuPjBcdXpmQK0hSo 9yZGVyLWNv xGvrlYJfIjAyt6rvAKFsLD aiIT7zaKycC6XkgGU9MATu v1c8Yf32K72iN5DtaOL+PG RkpGQ0eHS2 oO7bMiEpZaN8NOcyK554Du DsyRXsQqwxr0ksj0ihoAx7 RxZ4CBFwguOzvJtsYLT6m7 EzTl46D66y IHdpZHRoPSIxNSUiIHZhbG npmb0taR5dHz3+PGNvbCB3 lEB2zO5tChRwOgT0VIcwJ4 49InRvcCIv Zhoih5dif3mtkSk3LxCmAB CyaoOtrVbnUTH8z4LbBe52 J9NtnFhqb2HnOiq7ip37cE Csc7D5mJU2 Z8NbBKMmdzdreQEszCtsNB 9oCARlznghAFNznE8aBNQu A8i8PmCvJxJ2VJxeG9Axxu Q1UIJoxXGu LGPwdYNTwZ3izmhqs8nyhb akEiUlJTRtCOd8LCf0RMBp zDtmRfZkEJO8XlP7TAP3oY DwhX4tqAup manxnC8zBel+QCE3eXDbsA BONC2rDpawzKX+PHRkIHN0 rNgaEYxtRUNjoJ2hGNRfZ3 d5JdUdNoN5 FAniH4NtzvA0LOOluVUlLN OnxQEFiN4oujrzx9wksdot BjHkLIVrTUz0INx6SZDuxM duOiBsZWZ0 IpA0NFV8gWBrsG6lqEuzpv yarW8aVcx+QmlydGggRGF0 HNx2C5VySny8AWZuxLakIF 0ncGFkZGlu Ut7ldYkpqHncAE6tTDAzrm mfr149CvNps4ygWGGelSUt MLccGIK0V31iz6U8JPSqGQ LlRBF9mLO3 kR1iyYfbolkufQPslMvhss MfhZrgCVicHUuhD670UGUv iCivQiWxBAc7F1ArOav4UL NlvVcjIE5j aELcCGajYv8cdYejpTfqUE 2qUGRfieauk212ZaGiv6jo ALYfgZHiGKldGIF0U63hn0 I1OXOxASUz YVF4xRC8qF6zrKgbvzqkhU VmdDsgdmVydGljYWwtYWxp I716NQOmgCxfByMrvRw8M9 QvDin4AIFh kLmnWZ6pjHAnRTufVp7jrP logGwkKS4mSGDkuxeft693 CwJtt4hgTMNbrGMuSIhlOV T1P56ff5X7 LZShTMLiWBF1zPI6xL4myG lnbjogbGVmdDsgdmVydGlj SDhnIAcqH178ZWFiuUxrDa BhdGllbnQg ACstTPq8Q3VcMcdrdMT+PC 99WDHtMS65dPXczUEng6fe sIw4XuJgQDGkKUQ9lWlwHI smw6HxPGNb B08iwQRvx0J9SUFpzJqdsR ZxKsCgiZW4gF7zOUexpepo b0ozfwmwCvthx7pywt98wM 00M79ePNab ZHRoPSIzMCUiIHZhbGlnbj 4dbV9kNq8+VOMstBF4dQM0 hI0aDIVjSrH8RVgpN990Gz RvcCIvPjxj h2nrl1xfsKl6XzU9DVChpe BbdTzzRET2e2TuXc98C68n IHdpZHRoPSIyMCUiIHZhbG oybi4eeB4p Ii8+PEKfhWN0pZL1tG0qLt RhWvG7GMugA872EuAsgVTd VanfM53oY2ZkrSE+PHRyPj o5TYXpzNgp YK4ivGLjURhzCo5bHIT3Nt SkAgZlRYztS7FoGOSmypxf xyuvzOI0SSUwZJGkyQ14Vj 9udDogMTBw kXPYrI2nefmwu6fkgjogYc JoADQyKUl3JNq2HWSvpBrx DnVlHLY6SxY1WAP2dICfdG 1hbGlnbjog wD7eB9JdKQOissfwBq33tQ 5qQnPoPjS8QHalPex+U0NI RVJGLCBSQVkgQVJUSFVSPC 65OH88bVAu t9V6pPO0L8OhURYdsqmvwr lkhMZ1BZRkWIMnbR17hDKt CMdqQk1ux6F9j034XYAxTX SbeJ16Xm1a hBpoMJWyfIMFlG8bgbrok3 svhqlwVaFmFQHiRTv7LEy2 DKZlkEbcLpXeNNK8RpS8GG Y8bEHegD2l sIekurfntM8eXlp+MDEvMD QuDEk4PjqfqRG+PHRkIHN0 cIdtQLtsPHJrpY7oKKOqR4 l0CiUrMiP6 RMpjY4UdGDUgwedkEl73kX 4kVqKfDnR1IFriQ6MlazX9 CJPpeBHoYAkiHMA5J39eb3 O4FSHbBPOq NVW3qWY4pO5yeBdbazmdmP VmdDsgdmVydGljYWwtYWxp I733PHAaeFktCirxRNbjZT YhNU97LW07 oMPwu8X1kRU9C5TaREDhwg tlbxftlWT2BPVhKAVuwE93 oGCeVCgtQb2ia9B3d709SC VgSRPvhH15 Ov9tzSsmFLErlYLMvN5fvs ywi8bpxgceYeYbOMZiFHf1 TYy1RZSemTxcDhUkXCW4Hd T3VXF6vVKc gI8ikOrguulfjP5bZwo+TU FMRTwvdGQ+IEUjEUL3kPxc UVpqEIIuaM4vJFKdH6q2Pv XvDuS9TXin N9KvHIGrtpmdTp82iX2iGa KeAaD9FJobD2TnxpP1TNMi uDVcORldIWX9F93ut9H6PD MwMDAwMDA7 vTH1zR9oyYkdlahmwXAqrP ccmfLxzYapIIxmNNvyO089 XCQpkAccTrSqZ1FdwdquMo BPdXRwYXRp IN13GT25YU78Y1BeKcoszF FibGU+PHRhYmxlIHdpZHRo EXjkHFXdXsYsmZrfER0bHq 9yZGVyLWNv rOqooEVwSwLgk1ieMJBmZI dmRI9aqSqxD2IuzVM3PJQx j0a2Jy38Q25cN2YkyXN+PG AlaJN3yFF6 lJ9iHuZvEuS6MPxcV576Nl RofMGkQalrh1sjj1oxaVu7 VnMnNSNrgfDjeQwgAMF6l3 MyTb53S66w IHdpZHRoPSIyMCUiIHZhbG ukoi8isO4rBk9+PGNvbCB3 bYK5oF3wZyObKpA7YFdfV6 49InRvcCIv OygwE36oV9IsfGQ+PHRyPj m1DVDxeNzzUT2zqIKjATrj Uy2eIBR4CaUcOdSdKIkiA7 BhZGRpbmct nhenzQK0HYWrBNZxqR34Sx 9cfGmjRe2jODJhHJE9FXJx mTEeF0FkfD4vKxRqAMXwWC WvX0VmkXZn EYxrS956JWxiRgD0XFRrvw LmC0XwIDBfkKzdUjH6o8Q3 Di4RaTdwmQBwBE0gLwOaEO d7K8IuTxm9 FZTntAtkYD5ulFLhUTmgPf 0dxQnaxYnbQP7oOJGnrlid j233TyFsa0svPPVcaOKrQL ovQYW3Y28i g2J2SWNlYRBrQDC5mOL6bX 1hbGlnbjogbGVmdDsgdmVy tIehDRvwLRwyT731CXDrrO snPkZJTjo8 T3AwOiy8BXFbmBxoQA9xmW LiSPwhMa3fbAwwwTwnRA5d DLHuqvwbk348DxEat3dgII EwcHQgVGlt EOQ9V37fe5V0NVVoUVAhAL S5cEU0rW9ltBvwytasxBTr dDsgdmVydGljYWwtYWxpZ2 46IHRvcDsn Rb7DSko3X3PmCcd7SZHbpR dtAC2shIQrHDtqPe8uiTsl kJduGS6yGAFlzapkm815Hm Uxq3tlEUHz bKAqRLuiAFP5L42zk4T5KB MjBUAwFTP0dUG7qX5siCzb bjogbGVmdDsgdmVydGljYW baKKgrH347 IHRvcDsnPlBheWVyOjwvdG Q+BJ37ch63G0ToZemlVqo2 FKYmPTO7gBS1qR5dLPNbRS cbl6E2zKX5 J2J (more content not included)... [facility] Provider Orderson 11-30-2023 Provider Orders [id number]#1 .00OTGTIFF [facility] Outside Recordson 10-17-2023 Outside Records [id number]#1. [facility]23 Outside Records [id number]#1.[facility] Follow-up visit [id number] Richard Boykin 1940 M Date Provider Department Center 10/06/2023 SWEETIE TRIMBLE [facility] Family History Problem Relation Age of Onset Stroke Mother Valvular heart disease Father Family Status - Relation Status Age at Mother Father Level of Service:36107 [place] OFFICE/OUTPATIENT ESTABLISHED MOD MDM 30 MIN Reason for Visit and Comments: Follow-up [[id number]] - 6 month follow up had echo completed Normal [facility] Coding Summaryon 09-28-2023 Coding Summary HTMLBase 64 RyengggxKCv9yUk+PGhlYW Q+FI1TQFImL65zyHIdiS9c J9GHHJwSPdezEGIFSVxERf KnkxDbBH4szVWeSIOu IC8+WP8hPAKdGinztLLdn2 T5wRI4E28hai4bSWquxWH4 ANExYyXslwxsy4dpaPs0RY cuNmluOyBt KORqqT90WUE6vL53Iu76cG FevSVfk2hbtTj0IqCmYTLa CTZ4dFojBQtkb7OuRDMwD4 3hoRLwh0M6 GSRkqNlzeKPzYjAydUV2pF 5mGLnhwzquj3frjglwRai5 pu14nTEfo8O6iQC5J7Xcqe M7VXAqsXLx KkjdcMRMpV2bbouzm6czyq zlWfDsWSDhSTa6NSo3NAWw pRzoIvEyFD17YXP4MRIxro OpY0AsVJRl hFdzYtF9t0G3Hb0OZ5KWXg yjR6EJYJUUAOqqbNI+PC90 gs65X7RcMycaHte1QKHxJS S1aLH5vQ7s DMKoJAaay9W4lEQ8N8Nwck Wsdb1cf5vzXALmYRqpK84s nXYnl6M1MFUsqWF7ZXUucZ uiZeZluC67 Oyc+QTKelJkka4EbAdfft7 kdj6ljwDa2QrngDQYunqSp nDrmDZC3a7OoBd8sVBAfjI X5xJX3iG9z VuTaGmR7HExgA229DyQykW YlIjucV37aT7BdgFV+PHRy Cnv8BIFshCiwWO0aJ3GpZK RpbmctbGVm qJfeCY0xMLBepvxzCZFhuY 2fZIAvE5b0DjMxNaB5DAok V5AxVDLrkbxgXx19gO0vJm TcNeO1YDsd J9YsxzD2PZEmoMQiYSkeHH Y2H04gq4N7QYZpMRYzFGS8 uVQ9hE4zgCkisyjxyTSvjP sgdmVydGlj SVqdEXexC119GPAupGtyFj NvZGluZyBEYXRlOiAgMDQv MTEvMjAyNDwvdGQ+PHRkIH O5wFzoBOGx yYGiBGueYe8qjUzhuJdkHB 1jRLHixunnSSFtfM9uHJCg mWUywVwyOZ4tWZVkwviqa7 03GbIeRHJ0 SXMvlWFeE4CmfC0rXzOmWV HoCERbN7VxiVYiNPgfU947 YCskZkF3GCGklxXsN6MlMY FsaWduOiB0 e6S6Np6Fs6BxinfyM5VypR KhYxUpAmzqRDw9F2BpJiyq dHI+LM78XAKnVC93UWh1IT R6yOvuUVzl TKFlY5XcyX3eQwDvMNAiXL RkOyc+PHRhYmxlIHdpZHRo KJrmMUNeObPoiYpdZA2sCz 9yZGVyLWNv rWsizQLgBnPcj3jdJYYdCJ hwTD8omIadK2BfmAS1XBHj f1e0Xy90Z06eY5FxxDR+PG KndBD8nJG3 pL2yPwDjBdL1ULtlL643Xv BvtPUkKvdfc0vsb0cwvCg7 SpO9KGCnezNpiUavKNB6m7 ClSu23R14n IHdpZHRoPSIxNSUiIHZhbG gjzt0ybI1iZx2+PGNvbCB3 qGA6sQ6tZwWbOaI2DQtnD7 49InRvcCIv Mswro5lni2adxCr3YqFtOJ FhgcJrwJlcBDA3r8NyTb52 M6TdgLysq1XqTyc6my14zN Qet6P3zGZ9 J7KrACUgiuqfvLClrCmwCJ 8dDFEalsrtSOHazV8pQSGg K9j3AyPkKhP0ROpsG6Utiy T6AVYjlSWn JLAknNPVzV5spwobo7wlui vlWgPeQUCwSPo7BUi1HODv lWwsWkGrWES7KbF9TLC2aR TrqY9jjCsd kimzqU0lVho+CZU6oSAljY DHVN4vPrcvoVT+PHRkIHN0 gCbcVZloMEMbzU9zAOTsS1 s3FxZpVjD4 OMomR7OsmsB0ECKluJDiEF OisTUFtE5veehcp3yvwlio ZcVrJTZmIMb6IDk7OINrbL duOiBsZWZ0 IbG6DSX5yREvoC1pmQxmhx fyeP1aQmq+QmlydGggRGF0 PZd1G0DxEve3ZXOzyQayRN 0ncGFkZGlu Se7lfObubSomJY1qWDQwij eeo177NfPee6utXXVkpFWj FIvdRNI9J54rj6P7OPFqRJ GqCXP0uNE7 zA2axXggrqigbHFdfEiiyp QqdVpeIMszDPckI756ZTSm xIyfNxQoMEk0T2MxKjw7JK IjqMtnVX9w iRHkCPlyVk0azUjzmLbaXZ 4kICMclustp505PkKhf8ma CLImkXXzVBjuAFY0C26iw8 S0KBMcQMYt QYY1dIS4aC0jaKkfvfkjbR VmdDsgdmVydGljYWwtYWxp H757NNYjbXtdUjVpfWk9N9 UcZcr8KOUh lFlmFR5wuPDhCZqeBa1tlH tueSblSZ8xIPEyggyhq355 FxGyk4kkLPIbhOZhFDddVU P4C43zf5P1 KBQnOKIgLCM7gTE1xB0cvH lnbjogbGVmdDsgdmVydGlj JWjrSMxtX113TTBqsJhyYc BhdGllbnQg DGnsHLl9S0ZlSjhdjFA+PC 13TOZoQD18aMJzxNLkq4nf kZb2ApOnUJNcBHR2cCmkHU jfy6XxSGYg K04wjZLbb0O9NFUdeZawiS JvMfIhzXH3cF2iIDzjapax x9lgkchuOvxsz4vzrl03fZ 38Y05oFNtq ZHRoPSIzMCUiIHZhbGlnbj 0bcO4tIw3+PZNlzRC8dFT5 lJ0wRSZrAsB7ADauZ792Rd RvcCIvPjxj z6blq3uuzUh9LpW7BRQfos GcoJlaWUU9s6MrUx38N34h IHdpZHRoPSIyMCUiIHZhbG kzuw0dgJ1h Ii8+OVDjeWT3gOL6jG2eYw MvXpV4THicV395RlUkaBIu OthgQ24zR6WhgIY+PHRyPj q6IEVxsMtt BA7nkURzINbbDu8xMUW8Zp BpFwHtAWmvF6EpSIIkjxps tldueXV0MDPpHIYryJ60Hb 9udDogMTBw iFNShH2eebmtk0pwjgjsPn KfXDFtNHj5KFi9RVPfjDnd IrBqUPW9BcI5OHM9pZXkxW 1hbGlnbjog bL7zM8NfWKHvalrnWl97xW 2eBzRwKzX6AWumJtn+U0NI RVJGLCBSQVkgQVJUSFVSPC 73HS51dSFf f2E0zWH7Q9PoIHDtyaadai xhiCM4DEPhXODrxF45mVMu FUphCz1mb9W9x740YKMlWM VpbM42Eu7o qOulZZDhfAUHzB1vsbiew1 oqovyiYsYtVKPiBZn3QJz6 BOJrvJwhIrGtZUR0UlV6GT I1tWLvkP5v fVmwcjrdqC4fLht+MDEvMD LoGMc5TgsitQK+PHRkIHN0 sFyaSIhcGNFbgF1fDOIkD3 w5QjVmQzK8 KYezZ4XyHZRksztwHi30hV 6zQvZqIbF5LKqpQ4YeriA8 UOBhgKCiFCdcCUX5Z99mx1 M4RLSmJVZi OGM8xEA4lN5slHnebfhneP VmdDsgdmVydGljYWwtYWxp U136BVPujAefYtzsXThhAO DlOD62IN16 cJYgn3S1wOJ4S7FbMYVddn foytidbDS8DUGmPPZlwH80 xRHkQQmdXw0me3I9r568XO FcUMCrnY01 Yj7nfAcwRQKpePUGuU1jjj wrp5jkmgmjBzUeBHSrYBf8 PEk3IBQgoDmhDzHfIAW4Ic T0JXO5qPFr dV3cdCmlwkuskK9ySiy+TU FMRTwvdGQ+ETCcRPX4tKar SYjaQMTgaU9dGLZgJ0b9Mc DzVhR8CJbw J2VoPBUjynydIo89jV4aHf SrWpI0RFspJ6YvgrR7IQHc nDShBCmmZTA4H36fs7B6CH MwMDAwMDA7 gVN2mQ1avQqpabhjlNKzaA mvilPhsEgsYHvmUXvsM489 UEAuiZblZd7EZZ32VX23M3 RyPjwvdGFi bGU+PHRhYmxlIHdpZHRoPS biXHWiHxPznBtqKS0oSu6m ZGVyLWNvbGxhcHNlOiBjb2 xsYXBzZTsg WT9zaRgfZ1GbeJS5USMuh3 b6Rs53K74uQ8DqyWU+PGNv pNC2tAQ7pV5hVzXfTxB0WB pmS561JkDe nOKqHuajd3cjm1xvhZx2Oe NiROZbpvDiwCyqZGA4y3Kj Cv73I48eKReoMBYhHKAlZQ UiIHZhbGln rt8maN9eNr7+XXScxYV8aL U0iV9eErJcSxB2QJzsE688 TgMvmJIxPcrvY96cL0CatH A+PHRyPjx0 NUQkxKajAP9ljADtHNauEg 2zSYH7ErOdExSwNKrcW2Ed HXSzlshssihryQO7ZSJcUD UqvH59Kf1s fRwvRh0kATGxKYE6AHWcdL ArV9ElfK3lGuFhZJXpXPBw Z1WtlPYwOKrtS077IHdiYa I0TXDwumVj K0MiOADqoTlyYnJ7l1U5So 1WeHoyjQNtIW1hUzAeWJi8 C0BqEip0JHUvqUmiMZ3muU QyUHxpWv7y aBpayXveEO5yOHTysupjr7 68GiNwb7heCNWfyBHcUVpz JTW6M93vm6D8YIAwALNwRQ V7uBC1jG1y bGlnbjogbGVmdDsgdmVydG gkZEjtSGmyD017HPSphRlo HeFIXml2Q2JyZsj8WWAgtJ nmQC4ecRYm UTviXp1pmHpfeKakVM5mTB Bucjilk772JjEbu3rkLTYq fLBeSQevHVI0C08iw9X9XQ MwMDAwMDA7 oBU9zM5ffRugquaxyHSyyM scibQqlGwfJWnbKOirY204 RQWbvOhiTo5MGjk3O6LvNi j0FVMnaUco CM8ycHEaTEdwIp8llKdtmO wrKZ4tIVVncdwbp654JgNe z3waAXNziFHpSItvQIW9O0 0jk3Y5LXVe PRZkLUP2rTM4gR5zfOwpzk ogbGVmdDsgdmVydGljYWwt PEwbA824CRZnkSpmYgRciY VyOjwvdGQ+ PD09mv94J6XvXwxhEcq1EW MzQOW0oGO7iK4wNBBhOTcp a2G7eMY5Q5ZvnkOyva7ls7 xsYXBzZTog Y29 (more content not included)... [facility] Outside Recordson 09-27-2023 Outside Records [id number]#1.0 0OTGTIFF [facility] Office/Clinic Noteon 024 Office/Clinic Note Patient: RICHARD BOYKIN Age: 83 years Sex: MALE : 1940 Associated Diagnoses: Type 2 diabetes mellitus; HTN (hypertension); Hyperlipidemia; Acquired hypothyroidism Author: Marj Sorensen MD A History of Present Illness 83-year-old male who recently returned back from [place] over the winter presents today for checkup. He is a type II diabetic. His A1c has been elevated he is insulin-dependent. He has significant peripheral neuropathy and while in [place] and now back home he has been [...] tab(s), PO, D (more content not included)... [facility] Outside Recordson 09-22-2023 Outside Records [id number]#1 .[facility] 09-07-2023 Outside Records [id number]#1 .[facility] Summaryon 03-14-2023 [facility] YlocyibeIPt5iCr+PGhlYW Q+UK6DBTAzR57lwICqxL6m G5UJQDkJXmexHERHYHxXKc GjstTlIE2kfHBmHLVf IC8+HH8wPMZfEkjpnJKdr7 H4wJW1M55fdw9aEAywrYY9 LHPuEgOxpsaie7ukgLj1YC cuNmluOyBt JIFycJ92SXR0dH35Lv04kS WrjQVro6wxxIy5MkKvVESu MPH9rRrcNGqyt7ZgNUOgJ0 4icOWof0I7 DBRrhTtjwNJwFuAgjHV1mO 8nXUqxmfqas7vuyprhFfp2 ui55fPSyi2U3aFY2Y6Anhu A9LRRclIIo AhbijEXVaM1zzlogs3tvle noShKaJYLlBYp8QRa4VCJo oJnrAmVxXI24CCB4YRPswl JyH2AlOOPw sBrfClU2t0I2Vu7QN7KUGt phL2WJFHRRHWpnxFY+PC90 rx02H1IuIfbdBxk0MHZmSX M5mWG4qQ5r GXIwTComp0Q6oKJ3R9Lrev Gfvx3gx7yfLQRjWCkgU58h wUCim4R4GFAqaVV6EFFccA iyEnGgeK21 Oyc+ESMebWpgv7SrByurx7 vcx9mqoHi7VufzWYUeyhQe dWojBRW2t5BgQt2fTZAnoK F0bWZ2gB2f AoCoJjL0XGjgY075RcEwsZ SjEjdsE12bA9PbgFI+PHRy Dij8UOXlqXqoNW7lZ9RyXH RpbmctbGVm qXzoVY4nSKYncdzkQIWjrB 3dXKJbH0x4UcMpHfJ0LNiy S8BmGSGyzwlrJq59dS6rQy WrDlW9TNwa Y5CsihX7IYSptUIqFWcdJH K7A74qn1E6TKNfTIQhDXM5 jCJ0bL3ahOlpisijgGQahL sgdmVydGlj OIepJKhwC794LJRjiDvxKq NvZGluZyBEYXRlOiAgMDkv MjYvMjAyMzwvdGQ+PHRkIH R5xIdpUAZx vKRtGBsbZk7ppPszvRnkSR 5zVRWozgkzPACegX9kELYp xNHmnGowTW9wCYRfxamrp8 96ImIgXPT0 HWGwvQKzO3CbmS2pSvEzBZ WdBWVoJ5TmxKUvOVinG038 UZstSkO7VKMugmZlQ0RaBJ FsaWduOiB0 a8M4Cm4Xj9AnmwjeB9OjuR BpZcIdGpcuQKc8D1XwDcsa dHI+MV36TYOsOX82MSi1UG G5sNyaLNfi XMIcM1TwhF1fRgYnNJXhCU RkOyc+PHRhYmxlIHdpZHRo NSxkAUSpMuUtlOnqMB2bMx 9yZGVyLWNv bQaggVQqXfLew3gbMXImLY byAH5lrJtcP0UcyYA8UNFx a7n3Gg66L11tV5NazCR+PG QuzWZ1zOZ9 eT3lDzLcCgC2SLcvZ122Qw XglFRkJqxsj7zuk7puzAi3 ByP2IFVambNtnPjbXYB3j8 TrWd65V37b IHdpZHRoPSIxNSUiIHZhbG qdjd7mjE7pTa0+PGNvbCB3 sCE2gU2oBqRvZqC6VWkdY8 49InRvcCIv Aujlj0ldd1ssqXe9LrBqQT JtyhBhcOqzYXB5s5MyPd96 F3IurCkqw3MeLpr9bw28wJ Tes5G9eAG2 C0KaJXHctrrlqJNqhQamGA 4lACDwqkmmXDDpeK3sYLGl Y9i8MsOtNqB3ALqiS8Asyn D5FAEfjOEc CLSuwGXRtO1kudlxl0wrud ywXgOoPBGbSCo2TNg9RYIw hDvmTpNtQKX3NzW5NSQ5lG ClkS6wfBis vjwloD6bDyz+OEW8tZDkzM KANM4zSnnbmBQ+PHRkIHN0 mYhnXLchOSUehV7sWSPrW9 b9KvPuUoW6 AAusK2BoayG0JHHqhSKtVM BmbAWWdK0jwlxpi3euahca ArEpGOJrXVg0FZo6IRJkpK duOiBsZWZ0 ZvE8YZT9uBNzaD7khKkquf pryS6rMqj+QmlydGggRGF0 VNv5H5XoDiy0ASMdpMuzOB 0ncGFkZGlu Kx2xvYiyfGkyST3nCCKwem qnt510YeZfg7pkRSQeyTUk MIlgRIA0J99ty0Y7GKViDJ FpUQC9rYJ6 rG9efMswsuudlCIucEdfwz MkdVndODhrIHsdF332AFKi oXpkZgSmPJl2U3ZdDzm4GX VskHpjJA7k sSVeBKfmFp0iaGkiyOdeOZ 4wJZWtfvydx067WuXdz8ki MOTdmBGaAGuqXIP3D70tb1 H5RTEvRMIw RKY1vAF2tI1klXzzcgzwzC VmdDsgdmVydGljYWwtYWxp I500JTHagZeyCtFgwKv1U2 HmVgl9OHQt aKczCF7opLTrUHlaTy0zlI rurGsvCF7fSGPacsppt724 IgIcf7fgXSHpzLDbFZwiZY R8N47na6E1 ZKBgKTUmDEY7pZB4kB2hsQ lnbjogbGVmdDsgdmVydGlj VQbvZOjaY291VHZdyJydLg BhdGllbnQg SXauJRl4R2AhNqxyePX+PC 26QEQgMO93pOSseFLoy6ie mPh6DtXtYJYxTBR8wKubLR pfn0CcIACk U27ycJHig3A7CXYmnYrrfZ EpDsUivAR5wX2wTYesvcrg o4jjcktcJnjhz8ozon81dO 67K93zBFnm ZHRoPSIzMCUiIHZhbGlnbj 5ttT2tPc3+RPUhhVH2hJF4 xV9bCCQvDrW9DDjuC597Im RvcCIvPjxj i0wux8cxyLb5OpT8NJLjoo JekOqrILI0u2VvQy81K56d IHdpZHRoPSIyMCUiIHZhbG neuq0scZ8a Ii8+BYVktZE0jIY2jD0dHc TgQlV4PBcgT640GiEevYNo NnogR47jK3FckLY+PHRyPj o4HCEooQkd DL5txTKtYOvzNd6qLMW1Ks NoNfIdNSibZ1IeDJIshoqj hdjgwDO7YPGaIDYgfC38Ef 9udDogMTBw kVONcA4rncigt5dladqvGx IyMAJpIJw9KRj9RAOvmAvt WuQwTJL5AwJ2VLA0xZAraB 1hbGlnbjog eF0gX2DeXLEucxuyNr35zF 7cHgAzYxA7SFoxCun+U0NI RVJGLCBSQVkgQVJUSFVSPC 44PM00qBRv x4V8dFL3X2UxRYKobksscg yinTI3AKLxCCUjeP91aIPd ZMdyOt3qi0F3z009MBOdET XmuC34Xv1a gFotKFUloNXRmL6ynuvsu9 pwyibmUeHkMFGzMPq1LHm3 WHBpmBzlXfGbTAN9OzF0BA K4nNPioB1b aYkwvvblpN4aDyx+MDEvMD NkSQf9QgbunUM+PHRkIHN0 xBxxHSevFMHozB0nREGfR8 k8QhCqCqC0 FGvbE1PdWSAfkoqmVq69gZ 3tRmXzSmZ9FMzbX1MoraT6 AIGosTTeWDvrPHR2J30pw9 Z5MUTyZHEz VCC9kJL8aH8qmPqwwxuwhI VmdDsgdmVydGljYWwtYWxp F103LSIhfVbpJjzzGPngFU HoIE98KF97 hECnu6B3lQO6N3BrDIFexy ivvtxowYR3WHYqVQMvfJ34 qWAxRJjcAr4qb7K5l016JP GmMIQblZ65 Ik2nkJxcIQFxtYGOcJ3geq mpl6qomqjsOaTaIOUxWNt5 GGn7LGWgdLzmMpBpDDY3Kn F9NER4xAYq mU6rdWkaqpwzvI5gGuw+TU FMRTwvdGQ+FJVhGEX1rVhz ZBqoTEFycP4nUBMpZ0e6Eh UiErZ8LHbu G9QcGJGefuhgGz30aV8nDa VoWbV1OWzfX5LtmrS7ZJPa jCJxEVrcEQO3S75bj3R2MJ MwMDAwMDA7 wTJ0qG8acBvmqalqyHVksA fqwoOqwLmzRKjwQIrcU428 MSHuvHjqXz1OGM74ZE10N4 RyPjwvdGFi bGU+PHRhYmxlIHdpZHRoPS cxQNSmVyUtjDgqXP3bOi9e ZGVyLWNvbGxhcHNlOiBjb2 xsYXBzZTsg TL5prPozA7QwxJK0HHBgc5 s9Tl50Z17vY2CpdFV+PGNv hTV9gKG6iR4jMfGvUqX3AB wbT159FiFw iGYyHorjy1jzx2aqkCt6Pn JlIMQifmSabCeeQIR2i5Ty Gz01M19fIOklFMOxLVRzWV UiIHZhbGln im0fdC2oYc8+KNHgqYE6aQ U0jI0mOxApObX3YGcoB959 StRssNMqYtxmP25xQ5TykA A+PHRyPjx0 SVUhpFlaQR0xpMYwXHwxZp 6oCLW3LeKsFlBjFYbrP9Sm RTTvfhsznffdcSL0UHTlYE FwiO24Go3i jQxfRy2tJTGiPBG1KOIaiJ LiO2SuyI5rJnLtTBUoWAXp E6RmuPVrRRdtW011TJmuAr K0AYHogzPl J5ByOAJaxZdnIeN0y8Q3Gt 5HhAyefBMcOF6hVfXbQOg5 O3CaUal7UJRgvXxwWM3yxZ NlTUryIu1g lFwgfTzcHZ0cKRQxeegse2 64FzZmk3wpZLFtnVEzQIpb PKX8G36tq6N9JMQyAXHvJY F6rWO0tX7v bGlnbjogbGVmdDsgdmVydG idQGstPWllV946XHDmeZxs OkYTPdp5P5SkOon1MXLkkF lvBU8fdOPp JBwxHu2koKaekUmtNX5mSH Sgvidnu510WkQqf3geDRZe iOViAVprZAH8C10ht7L2MU MwMDAwMDA7 wFX5uR9cjRnxkkwctJRknX kfrkFssTzuRXhxOYvaB728 MFWksGqgDn1KYbn1Z7TfFp t8DMEdcGae WW5loSMaFPoiGz3toQtmoJ dyRD7xSZEcdgmtq115JsVt n0xyKKMbyIDkQWlyCPL9W5 1rh1J4JQXc PSPzDRI3bVS6lZ2thRebno ogbGVmdDsgdmVydGljYWwt BHnnQ528RRRnqIlnWfHixZ VyOjwvdGQ+ CR99eu07R8QhDncbYid7XJ IsWFJ6yQC0rM0pNWXrTUhw q0D2qMZ9P2OlpeAtxo0bk4 xsYXBzZTog Y29 (more content not included)... Normal [facility] Office/Clinic Noteon 023 Office/Clinic Note Patient: RICHARD BOYKIN Age: 82 years Sex: MALE : 1940 Associated Diagnoses: TIA (transient ischemic attack); Fall; Chronic renal insufficiency Author: Marj Sorensen MD A History of Present Illness 82-year-old male here follow-up recent hospitalization for possible TIA after a fall. He was at [facility] when he stood up and fell forward. He was using his rollator and he fell to the ground. EMS was called and they were concerned because they noticed some facial droopiness and he was having some weakness getting up. 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 He is requesting a [...] AF 2% top (more content not included)... [facility] Office Visiton 03-03-2023 Follow-up visit [id number] Richard Boykin Kailee 1940 [facility] Provider Department Center 03/03/2023 [id number] MOSLEY [facility] Jalen [facility] Family History Problem Relation Age of Onset Stroke Mother Valvular heart disease Father Family Status - Relation Status Age at Mother Father Level of Service:83635 [place] OFFICE/OUTPATIENT ESTABLISHED MOD [facility] 30-39 MIN [facility] Office Visiton 02-16-2023 Follow-up visit [id number] WayneRichard Dugan 1940 [facility] Provider Department Center 02/16/2023 Beronica8-MADELYN LORENZO [facility] J[facility] Family History Problem Relation Age of Onset Stroke Mother Valvular heart disease Father Family Status - Relation Status Age at Mother Father Level of Service:96924 [place] OFFICE/OUTPATIENT ESTABLISHED MOD [facility] 30-39 MIN [facility] Coding Summaryon 02-15-2023 [facility] BawzcftkPIt3nDv+PGhlYW Q+FW0KRIEvV82alCHwmZ1v P2KUFKpWJaxlIVJSLPyWLk JelvXhGQ9ncELmBJWj IC8+AT6oSYYdNalblOJia7 P3eQP0P85oeb9gWEwsiLW1 OMOmCiIjpscbc6yrtEd6CT cuNmluOyBt CDPnrX77NBH4uW51Vj01rC YboTDwq1qziOy8CsMkWFIm QBB1fTqeALght2HpOIEhK2 6lwTHzk0X2 GWEahKvalJLgNtKwsJU5uD 3wJNjhvzvwf2enkuowHyd6 jl68sWIhh2J2aSY1K6Zosh X4NQEviJCo KxytaFROtN5soqeqk4iqxb qgDcAmWNDkROy5EOd6GXCx pWquWeTnSF99KFM2JLOjgn OuA7GfECLg aBxkDsL7j2J8Sl0RM8AFSt qsA1FRFCESCAhlgYK+PC90 kw93P0AxYyehGfs9OJQfLG G2dYW9jT0v KIAuEDtkx0Y7uJI2E4Ciuj Swxm8ak2cbNVZuUBovG43l nUNum4G1UWWszCZ3FRUihW psRcQmkJ36 Oyc+DHFkoUucj4HzMqwjq3 vzp8rliVd0CpfwVQYlocNf yOwyLIJ7p1IlYm1sMEDutX N4fVH6cC4k KqVzKaE3RChoT716NfAgaC SrBlkcC75sJ6JkrHM+PHRy Tfh7NNNixJfuKG4nW7LaIH RpbmctbGVm tFsvLD6hBLFrkvpvMMOfiU 1dVZDgG1e9QqRtXkY3UEmg J7WvNTMbltcbCf07uT8hSi EmNpL5TIzy W3ArcuN2BJNslTIvONmkPL F8U97yh5Z5AJQiZCAkEUK9 oWM6cU1avTbgemdgzEVxwK sgdmVydGlj DOouAAxtV126GRNnjRvbXa NvZGluZyBEYXRlOiAgMDgv MzAvMjAyMzwvdGQ+PHRkIH L1rWpmKLOx xQQqXJvoRv9cwWejiJdcGD 6pTMJpyaqgMFBweS1kDLOt pZAzoTnoAL2aFGUrulvin1 57JsEaBBP5 IBRucMFdF1IdgQ9vApRbGG TwLSBcT9VlxUNwPGtdR881 NWkqIrV2ZGNqxxJmH8JoTD FsaWduOiB0 k4A7Co6Fy2PagfpxO5GwoT KwFyCeBnggKGj8F5JmPucg dHI+AF54HQZfCI62ZDy7TY H0vPorMLjx MRIwB4GokM4oFsMtCBPqBX RkOyc+PHRhYmxlIHdpZHRo CYwbWMIgVkYmrZfcGD2cOw 9yZGVyLWNv xXqfiIRkIrVag2oaLTFoBZ euZE1wzLucR5TjdRD3VYAu x0s0Oo47P76gC2BxaUL+PG LbwHE7iXI6 jA9qUiNtIcA8MMdvS410Ns HcwFQdKbnwj3fgl2qgqAm9 AcP6NUEdblKuaIbbECJ7n6 CtTr51M17u IHdpZHRoPSIxNSUiIHZhbG fdmx3raS1nMy7+PGNvbCB3 eXR9oK0cXuJcSqG1ARmvQ2 49InRvcCIv Npsxr2ers1brxMq4OgHdWF OpacRnlGjyJFR2i2DbTh19 M9YpcNmla7BkTmm3gk39yL Bqv2M8xZQ8 P6FzZTZelmcncLPjeTmpXO 4rCLMrhgedDUNhdM5iCTKa A3v2VeXsKoS0IHsoY3Vhqo A8LGRlpTJx OTCkrIAZuL5vocbjb8hibw pvTtXrAUIoDDt7LUr1OJOg aBywQsCwASD3VqW8MSD9sU XssV4ymGji jolpaI8nTdp+AKO6wBCgsF ATFZ7iRcjigCY+PHRkIHN0 jGkxQTxmNZLgwO5aDPVyH1 f4QyXgQmG7 GZodY1QhkfH6ZGKgpCNzBG IcuGZGzI9ntcitx6azvnba ThXnZDRdVYk0LRm1THSozY duOiBsZWZ0 AeU1CFG5cLDhgP2xmAnjum hcwB9dEie+QmlydGggRGF0 HGi6Y3ShTxs6NZMnhZigXG 0ncGFkZGlu Bo3ywOuphDfzHR6sOTIizk dhd565EcOja3ibLOBtoYNk OInaZNI0H19oz2J2XEFyXO UtHMG0dHC2 lN5hsVwfyfhwlCSowQynta IvvEleIZftQUqbO445VZVb aYfmMqDwDMx8L2OuTdn9NU AklRrkPC2t bHBqCKctSq5fwWmxfRwnUV 3wJMRpxkssv893AoMbw2xa NNMkdRVtWRwuQAO8M15sw2 U0HACbFTKc UGA1vTO8vS4mrZhwlmdalR VmdDsgdmVydGljYWwtYWxp B321FJCbsQvyCrOmlMf1G8 JsDug5NXJh uCpgDD2hkVWxSEovLx6pfI pqvBndPP2kYSSgdudzk136 UhLqe8kuEIXgnKRsYVmyVT Z7J68bu2D6 VLBoTLJoQRF8gBY7vA1krK lnbjogbGVmdDsgdmVydGlj XPilUFatX333XMRmjHclHl BhdGllbnQg GVddIBz9A8TgHabiiZP+PC 09CFLrDE60zUUbdNLzc4gd jFn7BkQuTICaZZA9iTzoXE jif1XrVCZq C48hwWMng6F7FFKdqZodtF HvPrWafVQ3oO9hSPorhdia g1rfbxhfMmovu3kjcd72dU 58S73hZIbv ZHRoPSIzMCUiIHZhbGlnbj 1utM9iXm2+PJHlzAE0oPT6 dU1rBPEtSbP2ABhbD139Of RvcCIvPjxj m2eid6xmkNs8OeL4TPDtkx CjpGevZAB4f8AvHt76G02u IHdpZHRoPSIyMCUiIHZhbG tttb9mrS4o Ii8+DHQlqUB2wPD2cK7sOe TgWaR9GUsqK843PyZjcEOe NyahN74zY0NoaAW+PHRyPj f8TGQwdEjn JA6uiXRmNQfwMg3uKYI6Ra UdHcHpMDdlM2SaGZIdumyo isplwPM8LVYjVRJjyJ86Rx 9udDogMTBw lTCUnI5wavscv7nheyivFf YaGURcJUk3MTs0TIXceAko NbFsXLU2EgD9WOO6pAXkpA 1hbGlnbjog tN2uL1PaLWSbryvkJx59eC 6sIaPkUjY4QMovRam+U0NI RVJGLCBSQVkgQVJUSFVSPC 04PD50hUFv f9V6zPK8W7OpDCTqsghmhe iscOF6VOGpGPOceG89zQPe BLcjGt1zm4V2f320SWSaBU TlwI79Jp5s dNqfCPAztLMRpN9cyjlzb7 jbxdwnFdWsAVHaYQp7QMc0 ARAroQwfTfMgUSP2WbF1MF Y9rLBdpQ6i fUhtzromoS2sGuz+MDEvMD VmTJg0EayogRE+PHRkIHN0 jQtsOKneHZYgsM8pPGLmQ9 o5KaBeSxF3 XUsgO1EdFHEsthybNv03rO 6yCbOuDtP5RJibX4IycbO2 WWHjeRTiSXzeFXT5B75xd6 C2SEGpAXFz MMD8sQK1xU3hrUuskypmqT VmdDsgdmVydGljYWwtYWxp B944ABMplEscRqbeXCggCM VnUQ22IP73 iAFst3S6cHR6B4XhSEIcel lyszywhBJ0DFJeIANarH44 mIMxVKvyPm4he2Z2t952UZ OyFPOppP10 Ew6hfFteDVRklZXYgE5mst zta2zjjhkjNmVnPWJfQEt3 FZz8JQHppKpjEtUwKVI2Yv D0FWF1tTYy rE3ueXtkmttsmZ4vQsd+TU FMRTwvdGQ+ZXXdWGF3sFbe OFjjQJEeeQ1qVWQxQ1i6Oh BeOdS7UNji X2NiESFkzjwgLv30qZ2uZf ImXxE1VGzeS7EbtgK6SBJs rHVnNSkqCFW9H42uj4Y2MD MwMDAwMDA7 pQI4xT2bqWkcvibssDKduN tpfiNmfHkhOFmgRLmjY769 ENIqmXbaUh5NZX97LJ95B2 RyPjwvdGFi bGU+PHRhYmxlIHdpZHRoPS vpTYNnVmJgiJfgWP2oWb1s ZGVyLWNvbGxhcHNlOiBjb2 xsYXBzZTsg IE4rhGocX7LisJS6JDZss6 m2Mr90W30lF2LuhFM+PGNv uZM8jXI6lW1dFnSiOrO0LU deQ745ZnBi aNDaAahaj4doa6fnmJk5Wp FiLAHjmoJajSevDUL6m5Em Jp51I24oLYezKDRbTIBlTA UiIHZhbGln iw0gbN4uPm4+ADZzzUF8yS E9tX8iRtMfZaI8UQtuD008 WkJkfHEdChimS91oG2TnbF A+PHRyPjx0 OQRmgRepYY6bvRVaYBszGg 4sGXP4MtZtTfLmQKxlH7Xp FNCbfngcxpyaaIO8ONMeII BrfU97Jj8h hYsqWt3oDGMoNJL4EDIgoY LsG0JuqM6fJdYtLVQjZOOe C7JdtBKhHVweV533GPniJj N4LSLycvPd V0SrWUYyoHuzTcQ8m9B3Xb 2ZeVcriZMzKN7iQqGySDi8 T0OyLuq0MNQhdSfzFE0teZ DgAUpxYh3a xTxvfAvjWK0lMQDdftfvs6 33OpCom6bfEBFwrPYkZLcm RJN5W92yc0Y8KBKwJPXbHQ C8pQE5sX6v bGlnbjogbGVmdDsgdmVydG rzZMbqIPaiD324YFGzhCle AgJKPxd3J7GpMup3FXHsnV txXA4gdYPw DTzjGp6sfNeiqMvkDX4rWR Jjphimj893AjTol4jmGOVe eKZiKUehGDN7C19xj9Z6ZH MwMDAwMDA7 ySJ6bN2lbKamuseoxQNhhE snjwJgqJfpUSlqTAhbQ854 XHTsxGbkKf4GFdv4D3NmJs d1TCPnoGbs SZ7xtSQuPYjvVx2fbVhshN inRL9vMLJdrtqcw182MwNb w9kdXLHsiYXlRDllKRV0F6 6ps8E6WJVp NCMePYI8jYN0jF8jsBzlsm ogbGVmdDsgdmVydGljYWwt QHziB911FNOzpTxuLgGslG VyOjwvdGQ+ VB46vr50Y3ElLppwQmj4HV XgJIP3pAV2hL3bJJCtKVdl i6H0kIN9Y3NzusNykv5nb5 xsYXBzZTog Y29 (more content not included)... Normal [facility] Office/Clinic Noteon 023 Office/Clinic Note Patient: [...] Thoracolumbar back hugo (more content not included)... Normal [facility] Office Visiton 10-21-2022 Follow-up visit [id number] Richard Boykin 1940 M Date Provider Department Center 10/21/2022 DOTTIE WARNER [facility] Family History Problem Relation Age of Onset Stroke Mother Valvular heart disease Father Family Status - Relation Status Age at Mother Father Level of Service:27062 [place] OFFICE/OUTPATIENT ESTABLISHED MOD MDM 30-39 MIN Reason for Visit and Comments: Atrial Fibrillation [80] Congestive Heart Failure [127] Valve Disorder [3372] Hypertension [426714] Normal [facility] BNPon 03-26-2022 Natriuretic peptide B (Bld) [Mass/Vol] 629.0 pg/mL Normal <=1,800.0 [facility] Comment on above: Performed By: #### B MP, TSH, BNP, LIPID #### [facility] [address] [address] [address] Aaron Ling LIPID PROFILEon 03-26-2022 CHOL-HDL RATIO NORM SEE BELOW Normal [facility] Comment on above: Result Comment: 3.3 - 4.4 LOW RISK 4.4 - 7.1 AVERAGE RISK 7.1 - 11.0 MODERATE RISK >11.0 HIGH RISK Performed By: #### B MP, TSH, BNP, LIPID #### [facility] [address] [address] [address] Aaron Ling Cholesterol [Mass/Vol] 212 mg/dL Critically high <=200 [facility] Comment on above: Performed By: #### B MP, TSH, BNP, LIPID #### [facility] [address] [address] [address] Aaron Ling Cholesterol in HDL [Mass/Vol] 86 mg/dL Critically high 40-60 [facility] Comment on above: Performed By: #### B MP, TSH, BNP, LIPID #### [facility] [address] [address] [address] Aaron Ling Cholesterol in LDL [Mass/Vol] 98.4 mg/dL Normal [facility] Comment on above: Performed By: #### B MP, TSH, BNP, LIPID #### [facility] [address] [address] [address] Aaron Ling Cholesterol.total/Cho lesterol in HDL [Mass ratio] 2.5 {ratio} Normal [facility] Comment on above: Performed By: #### B MP, TSH, BNP, LIPID #### [facility] [address] [address] [address] Aaron Ling HDL NORMAL > or = 60 mg/dl - LO W CARDIOVASCULAR RISK <40 mg/dl - HIGH CARDIOVASCULAR RISK Normal [facility] Comment on above: Performed By: #### B MP, TSH, BNP, LIPID #### [facility] [address] [address] [address] Aaron Ling LDL CALC NORMAL SEE BELOW Normal [facility] Comment on above: Result Comment: <100 mg/dl OPTIMAL 100 - 129 mg/dl NEAR OR ABOVE OPTIMAL 130 - 159 mg/dl BORDERLINE HIGH 160 - 189 mg/dl HIGH >190 mg/dl VERY HIGH Performed By: #### B MP, TSH, BNP, LIPID #### [facility] [address] [address] [address] Aaron Ling Triglyceride [Mass/Vol] 138 mg/dL Normal <=150 [facility] Comment on above: Performed By: #### B MP, TSH, BNP, LIPID #### [facility] [address] [address] [address] Aaron Ling VLDL CALC 27.6 mg/dL Normal [facility] Comment on above: Performed By: #### B MP, TSH, BNP, LIPID #### [facility] [address] [address] [address] Aaron Ling PROF CHEM 8 (BAS METB)on Anion gap [Moles/Vol] 7.4 mmol/L Normal [facility] Comment on above: Performed By: #### B MP, TSH, BNP, LIPID #### [facility] [address] [address] [address] Aaron Ling Calcium [Mass/Vol] 9.6 mg/dL Normal 8.5-10.1 [facility] Comment on above: Performed By: #### B MP, TSH, BNP, LIPID #### [facility] [address] [address] [address] Aaron Ling Chloride [Moles/Vol] 94 mmol/L Critically low 98-107 [facility] Comment on above: Performed By: #### B MP, TSH, BNP, LIPID #### [facility] [address] [place] [address] Dr. Aaron Ling CO2 [Moles/Vol] 36.2 mmol/L Critically high 21.0-32.0 [facility] Comment on above: Performed By: #### B MP, TSH, BNP, LIPID #### [facility] [address] [place] [address] Dr. Aaron Ling Creatinine [Mass/Vol] 2.27 mg/dL Critically high 0.70-1.30 [facility] Comment on above: Performed By: #### B MP, TSH, BNP, LIPID #### [facility] [address] [place] [address] Dr. Aaron Ling EGFR-AF BOTSWANAN 34 mL/min/1.73m2 Critically low >=60 [facility] Comment on above: Performed By: #### B MP, TSH, BNP, LIPID #### [facility] [address] [place] [address] Dr. Aaron Ling EGFR-NON AF BOTSWANAN 28 mL/min/1.73m2 Critically low >=60 [facility] Comment on above: Performed By: #### B MP, TSH, BNP, LIPID #### [facility] [address] [place] [address] Dr. Aaron Ling Glucose [Mass/Vol] 214 mg/dL Critically high 74-106 [facility] Comment on above: Performed By: #### B MP, TSH, BNP, LIPID #### [facility] [address] [place] [address] Dr. Aaron Ling Potassium [Moles/Vol] 3.6 mmol/L Normal 3.5-5.1 [facility] Comment on above: Performed By: #### B MP, TSH, BNP, LIPID #### [facility] [address] [place] [address] Dr. Aaron Ling Sodium [Moles/Vol] 134 mmol/L Critically low 136-145 [facility] Comment on above: Performed By: #### B MP, TSH, BNP, LIPID #### [facility] [address] [address] [address] Aaron Ling Urea nitrogen [Mass/Vol] 48.0 mg/dL Critically high 7.0-18.0 [facility] Comment on above: Performed By: #### B MP, TSH, BNP, LIPID #### [facility] [address] [address] [address] Aaron Ling Urea nitrogen/Creatinine [Mass ratio] 21.1 mg/mg Normal [facility] Comment on above: Performed By: #### B MP, TSH, BNP, LIPID #### [facility] [address] [address] [address] Aaron Ling TSHon 03-26-2022 TSH 2.606 uIU/mL Normal 0.358-3.740 [facility] Comment on above: Performed By: #### B MP, TSH, BNP, LIPID #### [facility] [address] [address] [address] Aaron Ling B-Type Natriuretic Peptideon 01-19-2022 Natriuretic peptide B (Bld) [Mass/Vol] 749.0 pg/mL High 5-100 [facility] Comment on above: Order Comment: [phone] Result Comment: PERF ORMED BY: [place] [address] PATHOLOGIST TOOL SETTER SERVANDO AKERS M.D. Performed By: #### B MP, LIPID, TSH3, BNP #### [facility] [address] Basic Metabolic Panelon Calcium [Mass/Vol] 8.5 mg/dL Normal 8.2-10.2 [facility] Comment on above: Order Comment: [phone] Performed By: #### B MP, LIPID, TSH3, BNP #### [facility] [address] Chloride [Moles/Vol] 103 mmol/L Normal 95-114 [facility] Comment on above: Order Comment: Performed By: #### B MP, LIPID, TSH3, BNP #### [facility] [address] CO2 [Moles/Vol] 31.5 mmol/L High 22.0-30.0 [facility] Comment on above: Order Comment: Performed By: #### B MP, LIPID, TSH3, BNP #### [facility] [address] Creatinine [Mass/Vol] 2.03 mg/dL High 0.64-1.27 [facility] Comment on above: Order Comment: Performed By: #### B MP, LIPID, TSH3, BNP #### [facility] [address] Estimated GFR ( Ava 38 [facility] Comment on above: Order Comment: Result Comment: GFR estimated reference range: According to KDOQI guidelines, <60 ml/min/1.73m2 is sufficient to diagnose a patient with chronic kidney disease. Performed By: #### B MP, LIPID, TSH3, BNP #### [facility] [address] Estimated GFR (Non- Am 32 [facility] Comment on above: Order Comment: Performed By: #### B MP, LIPID, TSH3, BNP #### [facility] [address] Glucose [Mass/Vol] 99 mg/dL Normal 70-100 [facility] Comment on above: Order Comment: Result Comment: [place] om Glucose Reference Range is dependent on time and content of last meal. Glucose of more than 200 mg/dL in a nonstressed, ambulatory subject supports the diagnosis of Diabetes Mellitus. ADA recommended reference range Performed By: #### B MP, LIPID, TSH3, BNP #### [facility] [id number] [facility] Potassium [Moles/Vol] 4.9 mmol/L Normal 3.5-5.1 [facility] Comment on above: Order Comment: [phone] Performed By: #### B MP, LIPID, TSH3, BNP #### [facility] [address] [place] [address] [place] Sodium [Moles/Vol] 142 mmol/L Normal 136-146 [facility] Comment on above: Order Comment: Performed By: #### B MP, LIPID, TSH3, BNP #### [facility] [address] [place] [address] [place] Urea nitrogen [Mass/Vol] 50 mg/dL High 9-23 [facility] Comment on above: Order Comment: [phone] Performed By: #### B MP, LIPID, TSH3, BNP #### [facility] [address] [place] [address] [place] Cholesterol [Mass/volume] in Serum or PlasmaOrdered By: Sweetie Tomlinson on 01-19-2022 Cholesterol [Mass/Vol] 259 mg/dL 140-200 [facility] Comment on above: Chol less than 200 m g/dl low risk Chol 201-239 mg/dl borderline risk Chol 240 mg/dl and greater high risk Cholesterol in LDL Calc [Mas s/Vol]Ordered By: Sweetie Tomlinson on 01-19-2022 Cholesterol in LDL [Mass/Vol] 142 mg/dL 0-100 [facility] Comment on above: LDL ATP III CLASSIFI CATION LDL less than 100 mg/dL Optimal LDL 100-129 mg/dL Near or above optimal LDL 130-159 mg/dL Borderline high LDL 160-189 mg/dL High LDL greater than 189 mg/dL Very high Cholesterol in VLDL Calc [Ma ss/Vol]Ordered By: Sweetie Tomlinson on 01-19-2022 Cholesterol in VLDL [Mass/Vol] 12 mg/dL [facility] Creatinine and Glomerular fi ltration rate.predicted panel (S/P/Bld)Ordered By: Sweetie Tomlinson on 01-19-2022 Creatinine [Mass/Vol] 2.03 mg/dL 0.64-1.27 [facility] Estimated glomerular filtrat ion rate (GFR) non- AmericanOrdered By: Sweetie Tomlinson on 01-19-2022 GFR/1.73 sq M.predicted among non-blacks MDRD (S/P/Bld) [Vol rate/Area] 32 mL/Min [facility] Laboratory - Chemistry and C hemistry - challengeOrdered By: Sweetie Tomlinson on 01-19-2022 Natriuretic peptide B (Bld) [Mass/Vol] 749.0 pg/mL 5-100 [facility] Lipid Panelon 01-19-2022 Cholesterol [Mass/Vol] 259 mg/dL High 140-200 [facility] Comment on above: Order Comment: [phone] Result Comment: Chol less than 200 mg/dl low risk Chol 201-239 mg/dl borderline risk Chol 240 mg/dl and greater high risk Performed By: #### B MP, LIPID, TSH3, BNP #### [facility] [address] [place] [address] [place] Cholesterol in HDL [Mass/Vol] 105 mg/dL High 29-71 [facility] Comment on above: Order Comment: [phone] Result Comment: HDL CHOL ATP-III CLASSIFICATION Cardiovascular Risk HDL > or equal to 60 mg/dL LOW HDL < 40 mg/dL HIGH Performed By: #### B MP, LIPID, TSH3, BNP #### [facility] [address] [place] [address] [place] Cholesterol.total/Cho lesterol in HDL [Mass ratio] 2.5 {ratio} Normal <5.0 [facility] Comment on above: Order Comment: [phone] Performed By: #### B MP, LIPID, TSH3, BNP #### [facility] [address] [place] [address] [place] LDL Cholesterol,Calculate d 142 mg/dL High 0-100 [facility] Comment on above: Order Comment: [phone] Result Comment: LDL ATP III CLASSIFICATION LDL less than 100 mg/dL Optimal LDL 100-129 mg/dL Near or above optimal LDL 130-159 mg/dL Borderline high LDL 160-189 mg/dL High LDL greater than 189 mg/dL Very high Performed By: #### B MP, LIPID, TSH3, BNP #### [facility] [address] Triglyceride w/Reflex 60 mg/dL Normal 35-149 [facility] Comment on above: Order Comment: [phone] Result Comment: TRIG ATP III CLASSIFICATION TRIG less than 150 mg/dL Normal TRIG 150-199 mg/dL Borderline high TRIG 200-500 mg/dL High TRIG greater than 500 mg/dL Very high Standard traceable to the Center for Disease Conrtrol and Prevention (CDC) test method. Performed By: #### B MP, LIPID, TSH3, BNP #### [facility] [address] VLDL CHOLESTEROL 12 mg/dL Normal [facility] Comment on above: Order Comment: [phone] Performed By: #### B MP, LIPID, TSH3, BNP #### [facility] [address] No Panel InformationOrdered By: Sweetie Tomlinson on 01-19-2022 Estimated GFR () 38 mL/Min [facility] Comment on above: GFR estimated refere nce range: According to KDOQI guidelines, <60 ml/min/1.73m2 is sufficient to diagnose a patient with chronic kidney disease. Pharmacy Creatinine Clearance (Chem N/A [facility] Serum or plasma calcium shelbi urement (mass/volume)Ordered By: Sweetie Tomlinson on 01-19-2022 Calcium [Mass/Vol] 8.5 mg/dL 8.2-10.2 [facility] Serum or plasma chloride alex surement (moles/volume)Ordered By: Sweetie Tomlinson on 01-19-2022 Chloride [Moles/Vol] 103 mmol/L 95-114 [facility] Serum or plasma glucose shelbi urement (mass/volume)Ordered By: Sweetie Tomlinson on 01-19-2022 Glucose [Mass/Vol] 99 mg/dL 70-100 [facility] Comment on above: ADA recommended refe rence range Random Glucose Reference Range is dependent on time and content of last meal. Glucose of more than 200 mg/dL in a nonstressed, ambulatory subject supports the diagnosis of Diabetes Mellitus. Serum or plasma high density lipoprotein (HDL) cholesterol measurementOrdered By: Sweetie Tomlinson on 01-19-2022 Cholesterol in HDL [Mass/Vol] 105 mg/dL [facility] Comment on above: HDL CHOL ATP-III CLA SSIFICATION Cardiovascular Risk HDL > or equal to 60 mg/dL LOW HDL < 40 mg/dL HIGH Serum or plasma potassium me asurement (moles/volume)Ordered By: Sweetie Tomlinson on 01-19-2022 Potassium [Moles/Vol] 4.9 mmol/L 3.5-5.1 [facility] Serum or plasma sodium measu rement (moles/volume)Ordered By: Sweetie Tomlinson on 01-19-2022 Sodium [Moles/Vol] 142 mmol/L 136-146 [facility] Serum or plasma total carbon dioxide measurement (moles/volume)Ordered By: Sweetie Tomlinson on 01-19-2022 CO2 [Moles/Vol] 31.5 mmol/L 22.0-30.0 [facility] Serum or plasma total choles terol/high density lipoprotein (HDL) cholesterol mass ratOrdered By: Sweetie Tomlinson on 01-19-2022 Cholesterol.total/Cho lesterol in HDL [Mass ratio] 2.5 {ratio} <5.0 [facility] Serum or plasma urea nitroge n measurement (mass/volume)Ordered By: Sweetie Tomlinson on 01-19-2022 Urea nitrogen [Mass/Vol] 50 mg/dL 03-11 [facility] TSH DL <= 0.005 mIU/L QnOrde red By: Sweetie Tomlinson on 01-19-2022 TSH Qn 11.52 m[IU]/L 0.45-5.33 [facility] Thyroid Stimulating Hormoneo n 01-19-2022 TSH Qn 11.52 m[IU]/L High 0.45-5.33 [facility] Comment on above: Order Comment: 1- [phone] Result Comment: PERF ORMED BY: [facility] [address] [place] [address] PATHOLOGIST TOOL SETTER SERVANDO AKERS M.D. Performed By: #### B MP, LIPID, TSH3, BNP #### [facility] [address] Triglyceride [Mass/volume] i n Serum or PlasmaOrdered By: Sweetie Tomlinson on 01-19-2022 Triglyceride [Mass/Vol] 60 mg/dL 35-149 [facility] Comment on above: TRIG ATP III CLASSIF ICATION TRIG less than 150 mg/dL Normal TRIG 150-199 mg/dL Borderline high TRIG 200-500 mg/dL High TRIG greater than 500 mg/dL Very high Standard traceable to the Center for Disease Conrtrol and Prevention (CDC) test method. BNPon 12-21-2021 Natriuretic peptide B (Bld) [Mass/Vol] 2048.0 pg/mL Critically high <=1,800.0 [facility] Comment on above: Performed By: #### B MP, BNP #### [facility] [address] [place] [address] Dr. Aaron Ling PROF CHEM 8 (BAS METB)on Anion gap [Moles/Vol] 11.1 mmol/L Normal [facility] Comment on above: Performed By: #### B MP, BNP #### [facility] [address] [place] [address] Dr. Aaron Ling Calcium [Mass/Vol] 8.7 mg/dL Normal 8.5-10.1 [facility] Comment on above: Performed By: #### B MP, BNP #### [facility] [address] [place] [address] Dr. Aaron Ling Chloride [Moles/Vol] 106 mmol/L Normal 98-107 [facility] Comment on above: Performed By: #### B MP, BNP #### [facility] [address] [place] [address] Dr. Aaron Ling CO2 [Moles/Vol] 30.9 mmol/L Normal 21.0-32.0 [facility] Comment on above: Performed By: #### B MP, BNP #### [facility] [address] [place] [address] Dr. Aaron Ling Creatinine [Mass/Vol] 2.07 mg/dL Critically high 0.70-1.30 [facility] Comment on above: Performed By: #### B MP, BNP #### [facility] [address] [address] [address] Aaron Ling EGFR-AF BOTSWANAN 38 mL/min/1.73m2 Critically low >=60 [facility] Comment on above: Performed By: #### B MP, BNP #### [facility] [address] [address] [address] Aaron Ling EGFR-NON AF BOTSWANAN 31 mL/min/1.73m2 Critically low >=60 [facility] Comment on above: Performed By: #### B MP, BNP #### [facility] [address] [place] [address] Dr. Aaron Ling Glucose [Mass/Vol] 138 mg/dL Critically high 74-106 [facility] Comment on above: Performed By: #### B MP, BNP #### [facility] [address] [place] [address] Dr. Aaron Ling Potassium [Moles/Vol] 5.0 mmol/L Normal 3.5-5.1 [facility] Comment on above: Performed By: #### B MP, BNP #### [facility] [address] [place] [address] Dr. Aaron Ling Sodium [Moles/Vol] 143 mmol/L Normal 136-145 [facility] Comment on above: Performed By: #### B MP, BNP #### [facility] [address] [address] [address] Aaron Ling Urea nitrogen [Mass/Vol] 43.0 mg/dL Critically high 7.0-18.0 [facility] Comment on above: Performed By: #### B MP, BNP #### [facility] [address] [place] [address] Dr. aAron Ling Urea nitrogen/Creatinine [Mass ratio] 20.8 mg/mg Normal [facility] Comment on above: Performed By: #### B MP, BNP #### [facility] [address] [address] [address] Aaron Ling XR shoulder RT min 2V*on XR shoulder RT min 2V* [place] [facility] [place] [address] [place], [place] [id number] XRay Report Signed Patient: Richard Boykin MR#: [id number] : 1940 Acct:[id number] Age/Sex: 81 / M ADM Date: 12/02/21 Loc: [facility] Room: Type: [facility] Attending Dr: Teofilo Person MD Copies to: [...] Rosado Jr., M.D.12/02/2021 1:52 PM Dictation Location: [place] [address] Transcribed By: [facility] 12/02/21 1352 Dictated By: Cyrus Rosado Jr, MD 12/02/21 1351 Signed By: 12/02/21 1352 Normal [facility] BASIC METABOLIC PANELon 05-1 Calcium [Mass/Vol] 8.7 mg/dL Normal 8.6-10.3 [facility] Comment on above: Order Comment: No: D o not add to previous draw Performed By: #### 5 0608, 32988 #### [facility] [address] [facility] [address], [facility] Chloride [Moles/Vol] 98 mmol/L Normal 98-107 [facility] Comment on above: Order Comment: No: D o not add to previous draw Performed By: #### 5 0608, 08557 #### [facility] [address] [place] [address], [place] CO2 [Moles/Vol] 29 mmol/L Normal 21-31 [facility] Comment on above: Order Comment: No: D o not add to previous draw Performed By: #### 5 0608, 27382 #### [facility] [address] [place] [address], [place] Creatinine [Mass/Vol] 1.00 mg/dL Normal 0.70-1.30 [facility] Comment on above: Order Comment: No: D o not add to previous draw Performed By: #### 5 0608, 76761 #### [facility] [address] [place] [address], [place] GFR/1.73 sq M.predicted among blacks MDRD (S/P/Bld) [Vol rate/Area] mL/min/{1.73_m2} Normal >60 [facility] Comment on above: Order Comment: No: D o not add to previous draw Result Comment: Calc ulation may not be valid for patients over 70 years Performed By: #### 5 0608, 52736 #### [facility] [address] [place] [address], [place] GFR/1.73 sq M.predicted among non-blacks MDRD (S/P/Bld) [Vol rate/Area] mL/min/{1.73_m2} Normal >60 [facility] Comment on above: Order Comment: No: D o not add to previous draw Result Comment: Calc ulation may not be valid for patients over 70 years Performed By: #### 5 0608, 09046 #### [facility] [address] [place] [address], [place] Glucose [Mass/Vol] 288 mg/dL High 70-[address] [facility] Comment on above: Order Comment: No: D o not add to previous draw Performed By: #### 5 06, 74131 #### [facility] [address] [place] [address], [place] Potassium [Moles/Vol] 4.7 mmol/L Normal 3.5-5.1 [facility] Comment on above: Order Comment: No: D o not add to previous draw Performed By: #### 5 607, 97289 #### [facility] [address] [place] [address], [facility] Sodium [Moles/Vol] 135 mmol/L Low 136-145 [facility] Comment on above: Order Comment: No: D o not add to previous draw Performed By: #### 5 607, 94620 #### [facility] [address] [place] [address], [place] Urea nitrogen [Mass/Vol] 28 mg/dL High 7-25 [facility] Comment on above: Order Comment: No: D o not add to previous draw Performed By: #### 5 607, 14383 #### [facility] [address] [place] [address], [facility] CBC COMPLETE BLOOD COUNTon - Erythrocyte distribution width (RBC) [Ratio] 14.3 % Normal 11.5-15.0 [facility] Comment on above: Order Comment: No: D o not add to previous draw Performed By: #### 5 607, 86347 #### [facility] [address] [place] [address], [place] Hematocrit (Bld) [Volume fraction] 42.0 % Normal 39.0-50.0 [facility] Comment on above: Order Comment: No: D o not add to previous draw Performed By: #### 5 607, 10726 #### [facility] [address] [place] [address], [place] Hemoglobin (Bld) [Mass/Vol] 13.7 g/dL Normal 13.0-17.0 [facility] Comment on above: Order Comment: No: D o not add to previous draw Performed By: #### 5 06, 46964 #### [facility] [address] [place] [address], [facility] MCH (RBC) [Entitic mass] 31.5 pg Normal 27.0-33.0 [facility] Comment on above: Order Comment: No: D o not add to previous draw Performed By: #### 5 607, 94828 #### [facility] [address] [place] [address], [facility] MCHC (RBC) [Mass/Vol] 32.6 g/dL Normal 32.0-35.0 [facility] Comment on above: Order Comment: No: D o not add to previous draw Performed By: #### 5 607, 46070 #### [facility] [address] [facility] [address] MCV (RBC) [Entitic vol] 96.6 fL Normal 82.0-98.0 [facility] Comment on above: Order Comment: No: D o not add to previous draw Performed By: #### 5 607, 37245 #### [facility] [address] [facility] [address], [facility] Nucleated RBC/100 WBC (Bld) [Ratio] 0 % Normal 0-0 [facility] Comment on above: Order Comment: No: D o not add to previous draw Performed By: #### 5 06, 55115 #### [facility] [address] [facility] [place] [address], [facility] PLAT CNT 298 10*3/uL Normal 150-400 [facility] Comment on above: Order Comment: No: D o not add to previous draw Performed By: #### 5 06, 71146 #### [facility] [address] [place] [address], [facility] RBC (Bld) [#/Vol] 4.35 10*6/uL Normal 4.20-5.70 [facility] Comment on above: Order Comment: No: D o not add to previous draw Performed By: #### 5 0608, 96441 #### [facility] [address] [place] [address], [facility] WBC (Bld) [#/Vol] 10.30 10*3/uL Normal 4.00-10.60 [facility] Comment on above: Order Comment: No: D o not add to previous draw Performed By: #### 5 0608, 15923 #### [facility] [address] [facility] [place] [address], [facility] MAGNESIUM BLOODon 11-02-2021 Magnesium [Mass/Vol] 2.0 mg/dL Normal 1.9-2.7 [facility] Comment on above: Order Comment: No: D o not add to previous draw Performed By: #### 5 0608, 58893 #### [facility] [address] [facility] [place] [address], [facility] POC GLUCOSE LABon 11-02-2021 Glucose [Mass/Vol] 296 mg/dL High 70-100 [facility] Comment on above: Performed By: #### 5 7307, 49069 #### [facility] [address] [facility] [place] [address], [facility] Glucose [Mass/Vol] 262 mg/dL High 70-100 [facility] Comment on above: Performed By: #### 5 7307, 24000 #### [facility] [address] [facility] [place] [address], [facility] PORTABLE CHEST 1 VIEWon 10-17 PORTABLE CHEST 1 VIEW [facility] Department of Radiology [address] [place] [address] ======== Patient Name: RICHARD BOYKIN : 1940 Sex: M Age: Race: NA Pt. Location: [id number] Patient Status: I Ordered Date: 11/02/2021 12:05:00 [...] effusions. Electronically signed: Guilherme Abarca. Transcribed by: [email or web address], User Resident: Electronically Signed by: GUILHERME ABARCA @ 11/02/2021 12:49 PM Normal [facility] Comment on above: Order Comment: Check Line Position, right arm picc *ANAEROBIC CULTUREon 022 *ANAEROBIC CULTURE Clinical Report: (D) Specimen: FLUID Collected: 11/01/2021 15:30 Status: Final Last Updated: 11/06/2021 07:46 (1) RT SC JOINT CULT RES (Final) No Anaerobes Isolated 5 Days Normal [facility] Comment on above: Order Comment: Check Line Position, right arm picc Performed By: #### 3 0312 ####[facility] [place], [place] [address] [place] [address] *ANAEROBIC CULTURE Clinical Report: (D) Specimen: TISSUE Collected: 11/01/2021 15:10 Status: Final Last Updated: 11/06/2021 07:46 (1) RT SC JOINT CULT RES (Final) No Anaerobes Isolated 5 Days Normal [facility] Comment on above: Order Comment: Check Line Position, right arm picc Performed By: #### 3 0312 ####[facility] *BODY FLUID CULTUREon 2021 *BODY FLUID CULTURE Clinical Report: (D) Specimen: FLUID Collected: 11/01/2021 15:30 Status: Final Last Updated: 11/06/2021 06:31 (1) RT SC JOINT GRAM (Final) Quantity Not Sufficient CULT RES (Final) No Growth Day 5 Normal [facility] Comment on above: Order Comment: RT SC JOINT Performed By: #### 5 0608, 54140 #### [facility] [address] [place], [place] [id number] [place] [address] *FUNGAL CULTUREon 11-01-2021 *FUNGAL CULTURE Clinical Report: (D) Specimen: TISSUE Collected: 11/01/2021 15:10 Status: Final Last Updated: 12/03/2021 07:55 (1) RT SC JOINT FS (Final) No Yeast or Fungal Elements Seen CULT RES (Final) Culture negative for fungus Normal [facility] Comment on above: Order Comment: Check Line Position, right arm picc Performed By: #### 3 0323 ####[facility] [place], [place] [address] [place] [address] *TISSUE CULTUREon 11-01-2021 *TISSUE CULTURE Clinical Report: (D) Specimen: TISSUE Collected: 11/01/2021 15:10 Status: Final Last Updated: 11/06/2021 06:37 (1) RT SC JOINT GRAM (Final) Moderate Polys No Bacteria Seen CULT RES (Final) No Growth Day 5 Normal [facility] Comment on above: Order Comment: Check Line Position, right arm picc Performed By: #### 3 0338 ####[facility] [address] BIOPSY ARM/WRIST SOFT TIS KIMBERLEY RIGHTon 11-01-2021 CT BIOPSY ARM/WRIST SOFT TISSUE RIGHT [facility] Department of Radiology [address] [place] [address] ======== Patient Name: RICHARD BOYKIN : 1940 Sex: M Age: Race: NA Pt. Location: [address] [place] [address] Patient Status: D Ordered Date: 11/01/2021 8:00:00 [...] risks are acceptable. Consent was obtained. Timeout: Berne protocol timeout verification performed. MEDICATIONS: 1 mg [...] of the right SC joint. Approved by:Jeremias Hoangn5 7:39 AM. ITara,have reviewed the image(s) and agree with the findings in this report. Electronically signed: Tara Hall. 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 Will order aspiraton of the proximal RIGHT sternoclavicular joint seperately POC GLUCOSE LABon 11-01-2021 Glucose [Mass/Vol] 326 mg/dL High 70-100 [facility] Comment on above: Performed By: #### 5 7307, 88927 #### [facility] [address] [place] [address], [place] Glucose [Mass/Vol] 245 mg/dL High 70-100 [facility] Comment on above: Performed By: #### 5 7307, 79426 #### [facility] [address] [place] [address], [place] Glucose [Mass/Vol] 299 mg/dL High 70-100 [facility] Comment on above: Performed By: #### 5 7307, 02593 #### [facility] [address] [place] [address], [place] Glucose [Mass/Vol] 227 mg/dL High 70-100 [facility] Comment on above: Performed By: #### 5 7307, 11479 #### [facility] [address] [place] [address], [place] POC SARS COV2 IDon 2 SARS-CoV-2 (COVID-19) RNA KIKO+probe Ql (Unsp spec) Negative Normal NEGATIVE [facility] Comment on above: Result Comment: ID N [...] of Accreditation. Performed By: #### 5 0608, 54047 #### [facility] [address] [facility] [place] [address], [facility] POC GLUCOSE LABon 10-31-2021 Glucose [Mass/Vol] 236 mg/dL High 70-100 [facility] Comment on above: Performed By: #### 5 7307, 41605 #### [facility] [address] [facility] [place] [address], [place] Glucose [Mass/Vol] 274 mg/dL High 70-100 [facility] Comment on above: Performed By: #### 5 7307, 36431 #### [facility] [address] [place] [address], [place] Glucose [Mass/Vol] 317 mg/dL High 70-100 [facility] Comment on above: Performed By: #### 5 7307, 78563 #### [facility] [address] [place] [address], [place] Glucose [Mass/Vol] 225 mg/dL High 70-100 [facility] Comment on above: Performed By: #### 5 7307, 49606 #### [facility] [address] [place] [address], [place] *BLOOD CULTUREon 10-30-2021 *BLOOD CULTURE Clinical Report: (D) Specimen: BLOOD CULTURE Collected: 10/29/2021 23:08 Status: Final Last Updated: 11/04/2021 08:31 CULT RES (Final) No Growth Day 5 Normal [facility] Comment on above: Performed By: #### 5 7307, 49920 #### [facility] [address] [facility]. [address] APTTon 10-30-2021 aPTT Coag (Bld) [Time] 51.2 s High 25.0-35.0 [facility] Comment on above: Order Comment: No: [...] THIS PURPOSE. Performed By: #### 5 0608, 40974 #### [facility] [address] BASIC METABOLIC PANELon 05- Calcium [Mass/Vol] 8.9 mg/dL Normal 8.6-10.[address] [facility] Comment on above: Order Comment: No: D o not add to previous drawMissed Performed By: #### 5 0608, 81231 #### [facility] [address] [facility] [address], [facility] Chloride [Moles/Vol] 99 mmol/L Normal 98-107 [facility] Comment on above: Order Comment: No: D o not add to previous drawMissed Performed By: #### 5 0608, 31064 #### [facility] [address] [facility] [address], [facility] CO2 [Moles/Vol] 27 mmol/L Normal 21-31 [facility] Comment on above: Order Comment: No: D o not add to previous drawMissed Performed By: #### 5 0608, 94173 #### [facility] [address] [place] [address], [place] Creatinine [Mass/Vol] 1.08 mg/dL Normal 0.70-1.30 [facility] Comment on above: Order Comment: No: D o not add to previous drawMissed Performed By: #### 5 0608, 35882 #### [facility] [address] [place] [address], [place] GFR/1.73 sq M.predicted among blacks MDRD (S/P/Bld) [Vol rate/Area] mL/min/{1.73_m2} Normal >60 [facility] Comment on above: Order Comment: No: D o not add to previous drawMissed Result Comment: Calc ulation may not be valid for patients over 70 years Performed By: #### 5 0608, 65407 #### [facility] [address] [place] [address], [place] GFR/1.73 sq M.predicted among non-blacks MDRD (S/P/Bld) [Vol rate/Area] mL/min/{1.73_m2} Normal >60 [facility] Comment on above: Order Comment: No: D o not add to previous drawMissed Result Comment: Calc ulation may not be valid for patients over 70 years Performed By: #### 5 0608, 71979 #### [facility] [address] [place] [address], [place] Glucose [Mass/Vol] 257 mg/dL High 70-100 [facility] Comment on above: Order Comment: No: D o not add to previous drawMissed Performed By: #### 5 0608, 15750 #### [facility] [address] [place] [address], [place] Potassium [Moles/Vol] 4.5 mmol/L Normal 3.5-5.1 [facility] Comment on above: Order Comment: No: D o not add to previous drawMissed Performed By: #### 5 06, 30219 #### [facility] [address] [place] [address], [facility] Sodium [Moles/Vol] 135 mmol/L Low 136-[address] [facility] Comment on above: Order Comment: No: D o not add to previous drawMissed Performed By: #### 5 06, 53787 #### [facility] [address] [place] [id number], [facility] Urea nitrogen [Mass/Vol] 27 mg/dL High 7-25 [facility] Comment on above: Order Comment: No: D o not add to previous drawMissed Performed By: #### 5 06, 20561 #### [facility] [address] [place] [address], [facility] C REACTIVE PROTEINon 10-30-2 022 CRP [Mass/Vol] 278.0 mg/L High 0.0-7.[address] [facility] Comment on above: Order Comment: No: D o not add to previous draw Performed By: #### 5 7307, 07623 #### [facility] [address] [place] [address], [facility] CBC COMPLETE BLOOD COUNTon 0 10-30-2021 Erythrocyte distribution width (RBC) [Ratio] 14.6 % Normal 11.5-15.0 [facility] Comment on above: Order Comment: No: D o not add to previous draw Missed Performed By: #### 5 06, 78843 #### [facility] [address] [place] [address], [facility] Hematocrit (Bld) [Volume fraction] 41.4 % Normal 39.0-50.0 [facility] Comment on above: Order Comment: No: D o not add to previous draw Missed Performed By: #### 5 0608, 36808 #### [facility] [address] [place] [id number], [facility] Hemoglobin (Bld) [Mass/Vol] 13.9 g/dL Normal 13.0-17.0 [facility] Comment on above: Order Comment: No: D o not add to previous draw Missed Performed By: #### 5 607, 88358 #### [facility] [address] [place] [address], [facility] MCH (RBC) [Entitic mass] 32.0 pg Normal 27.0-33.0 [facility] Comment on above: Order Comment: No: D o not add to previous draw Missed Performed By: #### 5 607, 92632 #### [facility] [address] [place] [address], [facility] MCHC (RBC) [Mass/Vol] 33.6 g/dL Normal 32.0-35.0 [facility] Comment on above: Order Comment: No: D o not add to previous draw Missed Performed By: #### 5 607, 09576 #### [facility] [address] [place] [address], [facility] MCV (RBC) [Entitic vol] 95.2 fL Normal 82.0-98.0 [facility] Comment on above: Order Comment: No: D o not add to previous draw Missed Performed By: #### 5 607, 54974 #### [facility] [address] [place] [address], [facility] Nucleated RBC/100 WBC (Bld) [Ratio] 0 % Normal 0-0 [facility] Comment on above: Order Comment: No: D o not add to previous draw Missed Performed By: #### 5 607, 94195 #### [facility] [address] [place] [address], [facility] PLAT CNT 211 10*3/uL Normal 150-400 [facility] Comment on above: Order Comment: No: D o not add to previous draw Missed Performed By: #### 5 607, 41881 #### [facility] [address] [place] [address], [facility] RBC (Bld) [#/Vol] 4.35 10*6/uL Normal 4.20-5.70 [facility] Comment on above: Order Comment: No: D o not add to previous draw Missed Performed By: #### 5 0608, 97175 #### [facility] [address] [place] [address], [facility] WBC (Bld) [#/Vol] 9.94 10*3/uL Normal 4.00-10.60 [facility] Comment on above: Order Comment: No: D o not add to previous draw Missed Performed By: #### 5 0608, 28504 #### [facility] [address] [place] [address], [facility] LACTATE WITH REFLEXon 2021 Lactate [Moles/Vol] 1.5 mmol/L Normal .5-2.2 [facility] Comment on above: Order Comment: No: D o not add to previous draw Performed By: #### 3 1414 #### [facility] [address] [place] [id number], [facility] MAGNESIUM BLOODon 10-30-2021 Magnesium [Mass/Vol] 2.0 mg/dL Normal 1.9-2.7 [facility] Comment on above: Order Comment: No: D o not add to previous draw Performed By: #### 5 7307, 69601 #### [facility] [address] [place] [id number], [facility] PHOSPHORUS BLOODon 2 Phosphate [Mass/Vol] 3.0 mg/dL Normal 2.5-5.0 [facility] Comment on above: Order Comment: No: D o not add to previous draw Performed By: #### 5 7307, 92777 #### [facility] [address] [place] [address], [facility] POC GLUCOSE LABon 10-30-2021 Glucose [Mass/Vol] 355 mg/dL High 70-100 [facility] Comment on above: Performed By: #### 5 7307, 66714 #### [facility] [address] [place] [address], [facility] Glucose [Mass/Vol] 318 mg/dL High 70-100 [facility] Comment on above: Performed By: #### 5 7307, 36543 #### [facility] [address] [place] [address], [facility] Glucose [Mass/Vol] 244 mg/dL High 70-100 [facility] Comment on above: Performed By: #### 5 7307, 36581 #### [facility] [address] [place] [address], [facility] Glucose [Mass/Vol] 294 mg/dL High 70-100 [facility] Comment on above: Performed By: #### 5 7307, 20776 #### [facility] [address] PROTHROMBIN TIMEon 2 INR Coag (PPP) [Relative time] 1.09 {INR} Normal 0.91-1.16 [facility] Comment on above: Order Comment: No: [...] CHEST 1995;108:231S-246S. Performed By: #### 5 0608, 53828 #### [facility] [address] PT Coag (PPP) [Time] 14.1 s Normal 12.3-14.8 [facility] Comment on above: Order Comment: No: D o not add to previous drawMissed Result Comment: ALL RESULTS MUST BE INTERPRETED WITH RESPECT TO BLOOD DRAWING ARTIFACT OR DILUTION ERROR OF ANTICOAGULANT AT THE TIME OF SAMPLING. Performed By: #### 5 0608, 03087 #### [facility] [address] [facility] SEDIMENTATION RATEon 0514-2 022 SED RATE 43 mm/hr High 0-10 [facility] Comment on above: Performed By: #### 5 0608, 53898 #### [facility] [address] *BLOOD CULTUREon 10-29-2021 *BLOOD CULTURE Clinical Report: (D) Specimen: BLOOD CULTURE Collected: 10/29/2021 21:05 Status: Final Last Updated: 11/04/2021 08:31 (1) LH 2051 CULT RES (Final) No Growth Day 5 Normal [facility] Comment on above: Order Comment: No: D o not add to previous draw Performed By: #### 5 7307, 79886 #### [facility] [address] [facility] *BLOOD CULTURE Clinical Report: (D) Specimen: BLOOD CULTURE Collected: 10/29/2021 21:05 Status: Final Last Updated: 11/04/2021 08:31 (1) RH 2100 CULT RES (Final) No Growth Day 5 Normal [facility] Comment on above: Order Comment: Check Line Position, right arm picc Performed By: #### 3 0313 ####[facility] APTTon 10-29-2021 aPTT Coag (Bld) [Time] 47.5 s High 25.0-35.0 [facility] Comment on above: Order Comment: No: [...] THIS PURPOSE. Performed By: #### 5 7307, 99777 #### [facility] [address] [facility]. [address] BASIC METABOLIC PANELon 10-17 Calcium [Mass/Vol] 8.7 mg/dL Normal 8.6-10.[address] [facility] Comment on above: Order Comment: No: D o not add to previous draw Performed By: #### 1 0070, 47588, 69586, 10629 #### [facility] [address] [facility] [place] [address], [facility] Chloride [Moles/Vol] 100 mmol/L Normal 98-107 [facility] Comment on above: Order Comment: No: D o not add to previous draw Performed By: #### 1 0070, 02005, 74970, 09987 #### [facility] [address] [facility] [place] [address], [facility] CO2 [Moles/Vol] 25 mmol/L Normal 21-31 [facility] Comment on above: Order Comment: No: D o not add to previous draw Performed By: #### 1 0070, 66119, 01204, 49616 #### [facility] [address] [place] [address], [facility] Creatinine [Mass/Vol] 1.14 mg/dL Normal 0.70-1.30 [facility] Comment on above: Order Comment: No: D o not add to previous draw Performed By: #### 1 0070, 15091, 14310, 16055 #### [facility] [address] [place] [address], [place] GFR/1.73 sq M.predicted among blacks MDRD (S/P/Bld) [Vol rate/Area] mL/min/{1.73_m2} Normal >60 [facility] Comment on above: Order Comment: No: D o not add to previous draw Result Comment: Calc ulation may not be valid for patients over 70 years Performed By: #### 1 0070, 91430, 06230, 73274 #### [facility] [address] [place] [address], [place] GFR/1.73 sq M.predicted among non-blacks MDRD (S/P/Bld) [Vol rate/Area] mL/min/{1.73_m2} Normal >60 [facility] Comment on above: Order Comment: No: D o not add to previous draw Result Comment: Calc ulation may not be valid for patients over 70 years Performed By: #### 1 0070, 58719, 30365, 77019 #### [facility] [address] [place] [address], [place] Glucose [Mass/Vol] 261 mg/dL High 70-100 [facility] Comment on above: Order Comment: No: D o not add to previous draw Performed By: #### 1 0070, 51270, 52401, 86888 #### [facility] [address] [place] [address], [place] Potassium [Moles/Vol] 4.4 mmol/L Normal 3.5-5.1 [facility] Comment on above: Order Comment: No: D o not add to previous draw Performed By: #### 1 0070, 86775, 20825, 19653 #### [facility] [address] [place] [address], [place] Sodium [Moles/Vol] 134 mmol/L Low 136-145 [facility] Comment on above: Order Comment: No: D o not add to previous draw Performed By: #### 1 0070, 43879, 48049, 20154 #### [facility] [address] [place] [address], [facility] Urea nitrogen [Mass/Vol] 30 mg/dL High 7-25 [facility] Comment on above: Order Comment: No: D o not add to previous draw Performed By: #### 1 0070, 79576, 28785, 52052 #### [facility] [address] [place] [address], [facility] LIVER BATTERYon 10-29-2021 Albumin [Mass/Vol] 3.0 g/dL Low 3.5-5.7 [facility] Comment on above: Order Comment: No: D o not add to previous draw Missed twice. Rhiannon Riojas notified. Performed By: #### 1 0070, 35976, 01669, 98322 #### [facility] [address] [place] [address], [facility] ALKALINE PHOSPH 159 IU/L High 34-104 [facility] Comment on above: Order Comment: No: D o not add to previous draw Missed twice. Rhiannon Riojas notified. Performed By: #### 1 0070, 70985, 19061, 36954 #### [facility] [address] [facility] ALT [Catalytic activity/Vol] 25 U/L Normal 7-52 [facility] Comment on above: Order Comment: No: D o not add to previous draw Missed twice. Rhiannon Riojas notified. Performed By: #### 1 0070, 35772, 51585, 87606 #### [facility] [address] [place] [address], [facility] AST [Catalytic activity/Vol] 40 U/L High 13-39 [facility] Comment on above: Order Comment: No: D o not add to previous draw Missed twice. Rhiannon Riojas notified. Performed By: #### 1 0070, 24565, 65485, 97555 #### [facility] [address] [place] [address], [facility] Bilirubin [Mass/Vol] 0.8 mg/dL Normal 0.3-1.0 [facility] Comment on above: Order Comment: No: D o not add to previous draw Missed twice. Rhiannon Riojas notified. Performed By: #### 1 0070, 65274, 32100, 92577 #### [facility] [address] [place] [address], [facility] Bilirubin.direct [Mass/Vol] 0.1 mg/dL Normal 0.0-0.2 [facility] Comment on above: Order Comment: No: D o not add to previous draw Missed twice. Rhiannon Riojas notified. Performed By: #### 1 0070, 67338, 36315, 29593 #### [facility] [address] [place] [address], [facility] Protein [Mass/Vol] 6.7 g/dL Normal 6.0-8.3 [facility] Comment on above: Order Comment: No: D o not add to previous draw Missed twice. Rhiannon Riojas notified. Performed By: #### 1 0070, 70420, 50731, 25515 #### [facility] [address] [place] [address], [facility] MAGNESIUM BLOODon 10-29-2021 Magnesium [Mass/Vol] 2.1 mg/dL Normal 1.9-2.7 [facility] Comment on above: Order Comment: No: D o not add to previous draw Performed By: #### 1 0070, 52593, 70139, 08808 #### [facility] [address] [place] [address], [facility] PHOSPHORUS BLOODon Phosphate [Mass/Vol] 2.7 mg/dL Normal 2.5-5.0 [facility] Comment on above: Order Comment: No: D o not add to previous draw Performed By: #### 1 0070, 61394, 80250, 63821 #### [facility] [address] [facility]. [address] POC GLUCOSE LABon 10-29-2021 Glucose [Mass/Vol] 262 mg/dL High 70-100 [facility] Comment on above: Performed By: #### 5 7307, 06447 #### [facility] [address] [facility] [address], [facility] PROTHROMBIN TIMEon INR Coag (PPP) [Relative time] 1.05 {INR} Normal 0.91-1.16 [facility] Comment on above: Order Comment: No: [...] CHEST 1995;108:231S-246S. Performed By: #### 5 7307, 31592 #### [facility] [address] [place] [address], [facility] PT Coag (PPP) [Time] 13.7 s Normal 12.3-14.8 [facility] Comment on above: Order Comment: No: D o not add to previous draw Result Comment: ALL RESULTS MUST BE INTERPRETED WITH RESPECT TO BLOOD DRAWING ARTIFACT OR DILUTION ERROR OF ANTICOAGULANT AT THE TIME OF SAMPLING. Performed By: #### 5 7307, 62339 #### [facility] [address] [place] [id number], [facility] XR knee RT 2Von 03-11-2021 [place]R [place] 2[place] [address] XRay Report Signed Patient: Richard Boykin MR#: [id number] : 1940 Acct:[id number] Age/Sex: 80 / M ADM Date: 03/11/21 Loc: [facility] Room: Type: [facility] Attending Dr: Godfrey Gomez MD Ordering Provider: [...] Jama Callejas M.D.03/11/2021 1:29 PM Dictation Location: [place] [address] Transcribed By: [facility] 03/11/21 1329 Dictated By: Jama Callejas II, MD 03/11/21 1328 Signed By: 03/11/21 1329 [facility] XR knee RT 2V [facility] [employer] Other XR knee RT 2V [facility] [employer] Other XR knee RT 2V [address] [place] [address] [employer] Other XR knee RT 2V [place] [id number] [employer] Other XR knee RT 2V XRay Report [employer] Other XR knee RT 2V Signed [employer] Other XR knee RT 2V Patient: Richard Boykin MR#: [id number] [employer] Other XR knee RT 2V : 1940 Acct:[id number] [employer] Other XR knee RT 2V Age/Sex: 80 / M ADM Date: 03/11/21 [employer] Other XR knee RT 2V Loc: [facility] Room: Type : [facility] [employer] Other XR knee RT 2V Attending Dr: Godfrey Gomez MD [employer] Other XR knee RT 2V Ordering Provider: Godfrey Gomez MD [employer] Other XR knee RT 2V Date of Service: 03/11/21 [employer] Other XR knee RT 2V XR/XR knee RT 2V: Arthritis of right knee [employer] Other XR knee RT 2V Copies to: Godfrey Gomez MD [employer] Other XR knee RT 2V XR knee RT 2V 03/11/2021 7:52 AM [employer] Other XR knee RT 2V SIGNS AND SYMPTOMS: Status post total right knee arthroplasty placement, follow-up [employer] Other XR knee RT 2V PROTOCOL: Frontal an d lateral graphs of the right knee [employer] Other XR knee RT 2V COMPARISON: 10/08/2020 [employer] Other XR knee RT 2V FINDINGS: [employer] Other XR knee RT 2V There is total right knee arthroplasty hardware without hardware complication or malalignment. [employer] Other XR knee RT 2V There is no significant soft tissue swelling. No evidence of fracture. Vascular calcifications are [employer] Other XR knee RT 2V present posteriorly. [employer] Other XR knee RT 2V XR/XR knee RT 2V [employer] Other XR knee RT 2V IMPRESSION: [employer] Other XR knee RT 2V Unchanged total righ t knee arthroplasty hardware. No fracture or hardware complication. [employer] Other XR knee RT 2V Impression dictated by: Jama Callejas M.D.03/11/2021 1:29 PM [employer] Other XR knee RT 2V Dictation Location: [place] [address] [employer] Other XR knee RT 2V Transcribed By: PWS 03/11/21 [facility] [employer] Other XR knee RT 2V Dictated By: Jama Callejas II, MD 03/11/21 [facility] [employer] Other XR knee RT 2V Signed By: [employer] Other XR knee RT 2V 03/11/21 [facility] [employer] Other Vital Signs Date Time Vital Sign Value Performing Clinician Oracio addison 12-02-2021 11:15-0400 Body height 177.8 cm Teofilo Person Other [employer] Other Encounters Encounter Date Encounter Type Care Provider Facility Start: 02-06-2024 ambulatory Marj Sorensen Facility: [facility] Start: 01-24-2024 End: 01-24-2024 ambulatory Marj Sorensen Facility:[facility] Start: 12-06-2023 ambulatory CAREY FUNG Facility:[facility] Start: 10-06-2023 End: 10-06-2023 ambulatory [facility] Start: 10-05-2023 End: 10-05-2023 ambulatory CAREYShayan FUNG Facility:[facility] Start: 09-22-2023 End: 09-22-2023 ambulatory Marj Sorensen [facility] Start: 03-13-2023 End: 03-13-2023 ambulatory Marj Sorensen Facility: [facility] Start: 03-13-2023 End: 03-13-2023 ambulatory Marj Sorensen Facility:[facility] Start: 03-09-2023 ambulatory Marj Sorensen Facility: [facility] Start: 03-03-2023 End: 03-03-2023 ambulatory [facility] Start: 02-27-2023 End: 02-27-2023 ambulatory UNKNOWN PROVIDER [facility] Start: 02-16-2023 End: 02-16-[facility]23 [facility] Start: 02-14-2023 End: 02-14-2023 ambulatory Marj Sorensen Facility:[facility] Start: 02-14-2023 End: 02-14-2023 ambulatory Marj Sorensen Facility:[facility] Start: 10-24-2022 End: 10-25-[address] DOCTOR MALCOLM Facility:[facility] Start: 10-21-2022 End: 10-21-2022 ambulatory DOTTIE GIRARD [facility] Start: 03-26-2022 End: 03-27-[address] DOCTOR MALCOLM Facility:[facility] Start: 01-19-2022 End: 01-19-2022 Patient encounter procedure MD Marj Sorensen Work Phone: [facility] Start: 12-21-2021 End: 12-22-[address] SWEETIE TOMLINSON Facility:[facility] Start: 12-02-2021 End: 12-02-2021 ambulatory Teofilo Person Other [employer] Other Start: 12-02-2021 Office outpatient visit 25 minutes Teofilo Person [facility] Start: 12-02-2021 End: 12-02-2021 Patient encounter procedure MD Marj Soresnen Work Phone: [facility] Start: 10-29-2021 End: 11-02-2021 Evaluation and management of inpatient MARJ SORENSEN Facility:[facility] Start: 10-29-2021 Telephone encounter Aly koo MD Work Phone: [facility] Start: 10-28-2021 End: 10-28-2021 ambulatory Godfrey Gomez Other [employer] Other Start: 10-28-2021 Telephone encounter Godfrey Gomez [facility] Start: 03-11-2021 Office outpatient visit 15 minutes Lydia Anderson [facility] Procedures Date Procedure Procedure Detail Performing Clinician Start: 12-02-2021 Plain X-ray of right shoulder MD Marj Sorensen Work Phone: Plan of Treatment Date Care Activity Detail Author Start: 10-29-2021 Welcome to Medicare Visit (G0402) Welcome to Medicare Visit (G0402) [facility] Start: 2006 Pneumococcal vaccination Pneum ococcal Vaccine(s) (65+ yrs) (1 - PCV) [facility] Start: 1991 Shingles (RZV) Vacci ne (1 of 2) Shingles (RZV) [facility] Start: 1959 Tetanus + diphtheria + acellular pertussis vaccine (product) [employer] [facility] Start: 1946 COVID-19 Vaccine (1) COVID-19 Vaccin e (1) [facility] Payers Date Payer Category Payer Medicare MEDICARE MEDICAR E PART A & B [id number] 2021-Present [address] [place] [address] Medicare [id number] 2021 Unknown AARP AARP xxxxxx [id number] 2021-Present [address] [place] [address] [id number] 1959 Medicare [id number] 1959 Unknown [id number] 1940 Unknown [id number] 2.16.840.1.347330.3.579.2.647 1940 Unknown [id number] 2.16.840.1.200776.3.579.2.593 1940 Unknown [id number] 2.16.840.1.627587.3.579.2.593 1940 Unknown [id number] 2.16.840.1.464156.3.579.2.593 1940 Unknown [id number] 2.16.840.1.681307.3.579.2.732 1940 Unknown [id number] 2.16.840.1.263169.3.579.2.718 1940 Unknown [id number] 2.16.840.1.668232.3.579.2.718 1940 Unknown [id number] 2.16.840.1.224021.3.579.2.718 1940 Unknown [id number] 2.16.840.1.965947.3.579.2.718 1940 Unknown [id number] 2.16.840.1.480002.3.579.2.718 1940 Unknown [id number] 2.16.840.1.112832.3.579.2.718 1940 Unknown [id number] 2.16.840.1.028048.3.579.2.718 1940 Unknown [id number] 2.16.840.1.112254.3.579.2.718 1940 Unknown [id number] 2.16.840.1.842224.3.579.2.718 1940 Unknown [id number] 2.16.840.1.906071.3.579.2.718 1940 Unknown [id number] 2.16.840.1.348535.3.579.2.718 Self-pay Self Pay [id number] Social History Date Type Detail Facility Tobacco smoking status [facility] Tobacco smoking consumption unknown [employer] Work Phone: Start: 1940 Sex Assigned At Not on file [facility] Sex Assigned At Sex Assigned At Bir th [employer] Other Start: 02-27-2020 Tobacco smoking status [facility] Never smoked tobacco (finding) [facility] Start: 1940 Sex Assigned At Male F [facility] Medical Equipment Procedure Code Equipment Code Equipment Origin al Text Equipment Identifier Dates Arthroplasty, knee, total, minimally invasive Orthopaedic cement, non-medicated ()[id number] FDA Start: 02-27-2020 Arthroplasty, knee, total, minimally invasive Uncoated knee femur prosthesis ()[id number] FDA Start: 02-27-2020 Arthroplasty, knee, total, minimally invasive Tibial insert ()[id number] FDA Start: 02-27-2020 Arthroplasty, knee, total, minimally invasive Polyethylene patella prosthesis ()[id number] FDA Start: 02-27-2020 Arthroplasty, knee, total, minimally invasive Knee stem ()[id number] FDA Start: 02-27-2020 Arthroplasty, knee, total, minimally invasive Uncoated knee tibia prosthesis, metallic [id number] [facility] Start: 02-27-2020 Clinical Notes 03-11-2021 to 12-11-2023 Note Date & Type Note Facility 12-11-2023 Note [id number] [id number] Note [place] [facility] Subjective Richard Boykin is a [...] October 29 to November 02, 2021 at [facility] with MSSA bacteremia likely related to septic [...] 3 years ago. He follows with a fire ranger. Recent testing: ECG 10/25/2021: Atrial fibrillation, nonspecific [...] walker to ambulate. He continues to see fire ranger and has a nurse that comes to [...] TSH: I as (more content not included)... [facility] 05-25-2023 Note Entered by Jeane Bush on [...] MD Sent: May 25, 2023 4:55:58 AM [employer]CRETE [employer]PERATOR HELPER Subject: Medication Management Due: May 26, 2023 12:04:06 AM CONCRETE [employer]PERATOR HELPER On Hold Pending Signature Drug: pantoprazole (pantoprazole 40 mg oral delayed release tablet), TAKE 1 TABLET BY MOUTH DAILY Quantity: 90 tab(s) Days Supply: 90 Refills: 1 Substitutions Allowed Notes from Pharmacy: - First Attempt Ref: [id number] Dispensed Drug: pantoprazole (pantoprazole 40 mg oral delayed release tablet), TAKE 1 TABLET BY MOUTH DAILY Quantity: 90 tab(s) Days Supply: 90 Refills: 3 Substitutions Allowed Notes from Pharmacy: Please send a replace/new response with 90-Day Supply if appropriate to maximize member benefit. Requesting 1 year supply. --- [facility] 03-03-2023 Note Cardiology Clinic No te Subjective [...] October 29 to November 02, 2021 at [facility] with MSSA bacteremia likely related to septic [...] 3 years ago. He follows with a fire ranger. Recent testing: ECG 10/25/2021: Atrial fibrillation, nonspecific [...] walker to ambulate. He continues to see fire ranger and has a nurse that comes to the home for foot care. He has no active ulcers in the feet at this time. Blood testing 12/21/2021: NT proBNP 8, potassium 5.0, BUN 43, creatinine 2.07, EGFR [...] great. Update: 03/03 (more content not included)... [facility] 03-03-2023 Note Patient here for fol low up [facility]. He was at [facility] and fell recently. Says his knee gave out. He was [place] [employer] [place] and flown to [facility]. Lisinopril and hydrochlorothiazide were stopped due to JENARO. He does see nephrology in [place], but not locally in [place]. He denies chest pain, SOB, palpitations, syncope/lightheadedness and bleeding on Eliquis. Had outpatient echo a few weeks ago. Review of Systems Hematologic/Lymphatic: Bruises/bleeds easily. Musculoskeletal: Positive for falls and muscle weakness. All other systems reviewed and are negative. [facility] 02-16-2023 Note Patient here for 3 m o follow up afib, chronic systolic heart failure, and CAD. Had echo last week. 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 He denies chest pain, SOB, palpitations, and bleeding on Eliquis. Doing very well. Review of Systems Cardiovascular: Positive for leg swelling. All other systems reviewed and are negative. [facility] 02-16-2023 Note [facility]TP CARDIOLOGY PROGR ESS NOTE [...] per Dr Tomlinson HPI Visit of 12/21/2021: Ray is seen as a new patient. He is a 81-year-old man with prior history of hypertension, diabetes and hypercholesterolemia all on therapy. He was admitted in October 2021 from October 29 to November 02, 2021 at [facility] with MSSA bacteremia likely related to septic [...] 3 years ago. He follows with a fire ranger. Recent testing: ECG 10/25/2021: Atrial fibrillation, nonspecific [...] walker to ambulate. He continues to see fire ranger and has a nurse that comes to [...] by mouth i (more content not included)... [facility] 10-21-2022 Note Hypertension is well controlled 128/70 Continue all meds [facility] 10-21-2022 Note Continue ASA, eliquis and atorva statin [facility] 10-21-2022 Note [id number]= 6 age, HTN, CHF, DM and PAD Continue eliquis 2.5 mg bid, and metoprolol 25 mg bid- heart rate well controlled [facility] 10-21-2022 Note Diabetes is uncontro lled and pt needs better glycemic management - May benefit from a referral to endocrinology and will leave this up to the PCP [facility] 10-21-2022 Note Referral to wound ca re for management of diabetic ulceration of LT lower leg with known uncontrolled DM, PAD, and edema. Pt has appointment made and information provided to him- appt is Monday10/24/22 with wound care. Foam dressing applied to ulceration [facility] 10-21-2022 Note [facility]TP CARDIOLOGY PROGR ESS NOTE [...] October 29 to November 02, 2021 at [facility] with MSSA bacteremia likely related to septic [...] 3 years ago. He follows with a fire ranger. Recent testing: ECG 10/25/2021: Atrial fibrillation, nonspecific [...] walker to ambulate. He continues to see fire ranger and has a nurse that comes to the home for foot care. He has no active ulcers in the feet at this time. Blood testing 12/21/2021: NT proBNP 8, potassium 5.0, BUN 43, creatinine 2.07, EGFR [...] the morning. empagl (more content not included)... [facility] 10-21-2022 Note Patient here for 6 m o follow up PAF, chronic diastolic heart failure, PAD, aortic valve stenosis, and hypertension. Had routine labs in August 2022. Denies chest pain, SOB, palpitations, and bleeding on Eliquis. Just got back from [place] last night after 7 months. Review of Systems Hematologic/Lymphatic: Bruises/bleeds easily. Musculoskeletal: Positive for muscle weakness. All other systems reviewed and are negative. [facility] 10-21-2022 Note Reviewed echo from - Mild AO stenosis Will monitor with routine echcoardiogram D/W pt to call office for increased shortness of breath, palpitations, chest pain, lightheadedness/dizziness or syncope and he voiced understanding [facility] 10-21-2022 Note Coronary artery dise ase is stable without any concerning symptoms continue risk factor modifications- heart healthy diet, regular exercise as tolerated and continue all medications. [facility] 10-21-2022 Note [facility] II-III currentl y euvolemic without exacerbation Continue GDMT- lasix 40 mg daily and jardiance Diuretic therapy- lasix decreased from bid to daily per neprhologist Monitor daily weights, I&O, fluid restriction 1.5-2L/day, renal function and electrolytes- [facility] 10-21-2022 Note [id number] score i s 4 due to age, hypertension, diabetes. Eliquis anticoagulation [facility] 12-02-2021 Evaluation note Encounter Date Diagnosis Assessment [...] discuss treatment if continues to cause issues [facility] Other 05-18-2022 NoteMR#: [id number] [facility] Pt. Name: Richard Boykin Admitted: 10/29/2021 Discharged: 11/02/2021 Date of : 1940 Physician: Alicia Sweet MD DISCHARGE SUMMARY FINAL DIAGNOSES: 1. Methicillin-susceptible Staphylococcus aureus bacteremia. 2. Probable septic joint infection. 3. Right knee replacement. 4. New onset atrial fibrillation with RVR. 5. Nonobstructive coronary artery disease and peripheral arterial disease. 6. Ozc-nfbtmki-dqaxxwahp diabetes mellitus. 7. Hypertension. HISTORY OF PRESENT [...] remained negative. He had a TTE at [facility] with poor image quality. There were no evidence of secondary source of infection on physical exam. Apparently, his repeat cultures at [facility] on October 24 and October 25, remained [...] his need for full anticoagulation with the level vial sealer on an outpatient basis. He understands that [...] Sweet MD Date Trans: 11/03/2021 09:12 A/lindsay [id number] cc: Marj Sorensen M.D. [address] [place] [id number] Miscellaneous Notes* Telephone Encounter - Aly Mcclelland MD - 10/29/2021 2:59 PM EDT I was called by [facility] about patient with septic arthritis and bacteremia requesting transfer for higher level of care. 81 obese, afib, CAD, PAD, hx hip/knee replacement recently moved back from [place]. Presented on 10/24 with R shoulder pain [...] instability. Aly Mcclelland MD documented in this [id number] Evaluation note* Encounter Date Diagnosis Assessment Notes [...] Feb, Restless leg syndrome (ICD-10 - G25.81) [facility] Other Evaluation noteNo InformationNort [employer] Other Evaluation noteNo assessment information available [facility] Work Phone: History general Narrative - Reported* Type Description Date Medical History PVD Medical History psoriatic arthritis Medical History diabetes mallitus Medical History Gout arthrits Medical History hypertension Surgical History Bilateral hip replacement Surgical History cataract Surgical History left total hip revision Surgical History RTKA [facility] Other Summary Purpose Family History No Family [...] and content) DATE CREATED AUTHOR 12/04/2021 [facility] DATE CREATED AUTHOR AUTHOR'S ORGANIZ ATION 01/31/2022 [facility] DATE CREATED AUTHOR AUTHOR'S ORGANIZ ATION 10/25/2022 [facility] DATE CREATED AUTHOR AUTHOR'S ORGANIZ ATION 02/28/2023 [facility] DATE CREATED AUTHOR AUTHOR'S ORGANIZ ATION 10/07/2023 [facility] DATE CREATED AUTHOR AUTHOR'S ORGANIZ ATION 02/07/2024 [facility] REASON FOR VISIT (unrecogniz ed section and [...] BE BASED ON THE PRIMARY CLINICAL RECORDS. [employer] provides no warranty or guarantee of the accuracy or completeness of information in this document.
== END 2024-02-09 09:48 | disposition home or self-care (01) ==
LOC: WC 09:47
PROVIDERS: PCP Family Medicine; Visit Provider Physician Assistant
DX: E11.621 Type 2 diabetes mellitus with foot ulcer (principal); L97.511 Non-pressure chronic ulcer of other part of right foot limited to breakdown of skin
CPT/HCPCS: G0463

== ENCOUNTER 2024-03-01 10:27 | Outpatient (OUT) | payer MEDICARE, SELFPAY ==
--- NOTE | 2024-03-01 | XR_ITS ---
The [address] [address] Patient Name: GENNY BOYKIN MRN: [id number] date: 1940 Sex: M Assigned Patient Location: Current Patient Location: Accession/Order Number: [id number] Exam Date: 03/01/2024 10:30 Report Date: 03/03/2024 05:21 At the request of: YURI HUGHES Procedure: XR foot RT min 3V PROCEDURE: XR foot RT min 3V HISTORY: RIGHT FOOT PAIN COMPARISON: XR foot right 09/19/2023 FINDINGS: BONES:Moderate degenerative changes throughout the midfoot with chronic, developmental beaking of the anterior margin of the talus at the talonavicular joint. Calcaneal plantar spur. Marked degenerative joint disease of the first metatarsophalangeal joint. Resection of the third toe distal interphalangeal joint. Flattening of the plantar arch. SOFT TISSUES:No visible soft tissue swelling. EFFUSION:None visible. OTHER: Negative. XR/XR foot RT min 3V IMPRESSION: 1. Stable surgical changes and moderate to marked degenerative changes. Electronically authenticated by: CHERI LAGUERRE Date: 03/03/2024 05:21
== END 2024-03-01 10:28 | disposition home or self-care (01) ==
LOC: WC 10:27
PROVIDERS: PCP Family Medicine; Visit Provider Podiatrist Foot & Ankle Surgery
DX: E11.621 Type 2 diabetes mellitus with foot ulcer (principal); L97.511 Non-pressure chronic ulcer of other part of right foot limited to breakdown of skin; I87.312 Chronic venous hypertension (idiopathic) with ulcer of left lower extremity; L97.822 Non-pressure chronic ulcer of other part of left lower leg with fat layer exposed
CPT/HCPCS: 73630; A6213; G0463

== ENCOUNTER 2024-03-22 11:35 | Outpatient (OUT) | payer MEDICARE, SELFPAY ==
--- OUTSIDE RECORDS SUMMARY | 2024-03-22 11:47 | XMS_ITS | CCD ---
Author Organization [facility] Care Team Providers Care Insurance Examiner Name Role Phone Unavailable Primary Care Provider UnavailMARJ Cooper Primary Care Unavailable MORTON Referring Unavailable JILLIAN HERNADEZ Admitting Unavailable ALICIA SWEET Attending Unavailable Lydia Anderson Unavailable Godfrey Gomez Unavailable Teofilo Person Unavailable MD Marj Sorensen Primary Care Provider MD Teofilo Person Attending Provider [phone] MD Sweetie Tomlinson V Attending Provider MISC, [...] Unavailable DOTTIE GIRARD Attending Unavailable Marj Sorensen Primary Care Unavailable Marj Sorensen Attending Unavailable Marj Sorensen Primary Care Unavailable Marj Sorensen Attending Unavailable CAREY FUNG Admitting Unavailable Marj Sorensen Primary Care Unavailable CAREY FUNG Attending Unavailable Marj Sorensen Primary Care Unavailable CAREY FUNG Attending Unavailable KENTON, CAREY Admitting Unavailable Marj Sorensen Primary Care Unavailable CAREY FUNG Attending Unavailable CAREY FUNG Admitting Unavailable Marj Sorensen Admitting Unavailable Marj Sorensen Primary Care Unavailable Marj Sorensen Attending Unavailable Marj Sorensen Admitting Unavailable Marj [...] 2020 12:00am take 1 tablet by toma every twenty-four hours Glimepiride 4 MG 1 tablet with breakfast or the first main meal of the day Orally Once a day Active hydroCHLOROthiazide 12.5 mg oral tablet (4 sources) Thiazide Diuretic Start: 02-12-2020 take 12.5 mg by mouth once daily Hydrochlorothiazide Active 12.5 MG PO Daily February 12, 2020 12:00am take 1 capsule by mo [facility] every twenty-four hours hydroCHLOROthiazide 12.5 MG 1 [...] Daily at bedtime February 27, 2020 12:00am Tzaphhrn-Igg-Sktmi -Vit K-Lycop (Men's 50 Plus Daily Formula) 400-20-370 mcg Tablet (1 source) Start: 02-12-2020 take 1 tablet by mouth once daily Ptlcoglf-Xqi-Qehw c-Vit K-Lycop (Men's 50 Plus Daily Formula) [...] tablet Orally at bedtime for 30 day(s) Feb, Active Start: 02-12-2020 take 2 mg by mouth o nce daily at bedtime Ropinirole Active 2 MG PO Daily at bedtime February 12, 2020 12:00am take 1 tablet by toma th once daily at bedtime rOPINIRole HCl 1 MG 1 tablet 1 to 3 hours before bedtime Orally Once a day Active Sanborn Oil-Dexter-3 Fatty Acids (Sanborn Oil-1000) 1,000-200 mg Capsule (1 source) Start: 02-12-2020 take 1 capsule by mouth once daily Sanborn Oil-Dexter-3 Fatty Acids (Sanborn Oil-1000) 1,000-200 mg Capsule Active 1 CAP [...] disease (2 sources) Atherosclerotic heart disease of [place] coronary artery without angina pectoris; Translations: [Atherosclerotic heart disease of [place] coronary artery without angina pectoris] Onset: 02-19-2022 [...] Value Interpretation Reference Range Facility Coding Summaryon 03-12-2024 Coding Summary HTMLBase 64 JqxihmrgURp9cDh+PGhl YWQ+AS2ORQJcY33hyIKb nC5tC5UZYUkFAlsxMCRE FEoRRhUaueAvKO0szRGf ZXJu IC8+RK7hWYEuUtdqbJZf w5T8qSX3K55uaz6mEKpg oNJ6JNQsIoKnigjpt4si iDj9ATebZgmgTdVq PRTnwL36SVD7oZ11By92 pIZdwUFbs8nkwDm8FfOi DZVqZEV6bEfkVFoci7Rl MMGzI37ieWFrw2W8 IGNvbGxhcHNlOyBlbXB0 qP6pJCfzuovdu9jadmeb Otj4ju73hFKdn7E6bIC0 M1QpvzQ9BEGstLWr PxsddIHNmF4vbjgpy5ct fwzaQvPqZGGmFCj5ELe4 LOUqnBwqLfDpDP87ESS5 QMOukvTdD6FmXFYj gZcqMaZ5q5A1Ea0HZ5BL EvsxQ6BAFZHCTIoqkKY+ TM52xd81P9WrWsjyLne1 IZApOLZ2ePE5uW1v ORQrQRuwg3C4yDL0L7Dw dtPvhs2qe4cbUACbPErf K41tkFSfh5Y7ZSItgIO2 GSJgnDymXnFmwU51 Oyc+VTXvzUtrb4ScJbsl o6cmf9qvpQn3JoemVARj myRlrMdpIQD9l4HzZb2l FRCcnDV2mQR6lF9n MpGmBlP7PFemY424KrPi bKNxWerpB50rC8DtmQE+ CPKbVvi3ZUCclPzoGC0u J3NxWTRkovsyxTWz iWkgXM1jYTTuxoyxSSIl qA1lPPVrT7q6GsByVsV8 HQcyW4OuLEMqnhcpDi15 fE4nVeZpQhQ3RAkk G9ZybrD9JCYsdDIaNQmq YAF9S26dk3Z9CWWnTLIm GEC5sVZ1gA3thZkedezs bGVmdDsgdmVydGlj PHnhMMxzC340BHHgbRbw PkNvZGluZyBEYXRlOiAg MDkvMjQvMjAyNDwvdGQ+ UTInKIW5qWxkIOJd eEEdYFkeJg4maYoadOks RE4pAPJcgrmpZLYkiQ9g AJGjwDByxBvoNB4rYRLv ngite329FbJgAIO5 GXVamTYiG5CjvL1pIiVn KOCeLMVzQ6VnvDBkZMcw D296WKnfRuM8IQBhtdJu O7ReOHCsvHkpOnF2 k6X2Ui9Mu0MruvynE7Wm iCKuNmFmCsuuHEc4L4Vs PjwvdHI+HE12CAPsTL87 IZz9RDO2aYbvZZtc ZBGpV1BquQ8aYlWvTPOq ZGRkOyc+PHRhYmxlIHdp ZHRoPScxMDAlJyBzdHls NC3yLn4hYPXxFOGi pRoxxNRfMqDhj3qrXLQa RLgxCN3upTxdY5SccFG8 MJMap1u9Yj79J60rC1Lh dXA+KOAqoYT6kHE5 mI4sKzZqOwI9ZUxlD936 XkWneVTiSbmsy0ybx6af qHs0YvT0MZPvdbMfuOio MZK1d2MlTt01H05l IHdpZHRoPSIxNSUiIHZh tMxjjt4rnE7oNk7+PGNv uUQ2rYW0zE0iQhHzBgK2 EApgL583JmVxvMHy Pdahc2oyq3vccKg3XtMj VCZalwDvgXuzINY0b2Zd Zg61S0NslQhhk8NnYvq1 zp60vHGrs0E3wEW3 T2FhQBUmllbkaPUfoWpq TE9nIDUxusmdIFUwiR7a PQDdM5r0HlHnUwJ5KKpx D3KkipM4EMAkjGDx HCLakMEDjH2ugqqkm8ph tqkaQdGnUWHgFYe3WKl3 MLIrmEzsAqJsHBG9CwA4 TEC4kJUvjZ3opXfs ezlbiY0tAok+QMK1jLCc bENFQD1xMeeoeZF+PHRk GXR8jJpkPYlrLPGccJ6e QOErJ9h9CbAxAgX4 VAkwP8UnibV0KNZulSZz AGNclKKFuA5zzhtrk7om mwsdSpVjLZGnGCn0JQv5 LWFsaWduOiBsZWZ0 AdK5QVK2pNRazS7zuXfm xywpeN1jMcy+QmlydGgg QKI7AZc0J2ByKbu9PPRc vGrtHT9ggQSwQUft Fd0nvGstaBvkVK4dHIUg mzxgi241TmDos3cfRSPg aWCsNQdaJFP4Z71za6M4 GBRgXVKuIVU5uHU7 jO5dtBxlomnkqGAtnMwn vxCzoMhjMGglHPalW379 PNAymQsyBqImXVf5S6Ze Lkt6TNMhdRekDM7q rAFvXYnqYh2oxMwyhFih GD6qHSYdfqlum659VeVm k5arDDGslSVrTSzzBGR2 R65vj1M0SCKpDJJs MCT0eTP6zD1udDmkoddv bGVmdDsgdmVydGljYWwt MMlyP139GHQkrAtmPoMl qFy2K7NlKnh4FOJm oRboKM0gsHXkAVsgQk4h cCbmpFzwKM8oARVfurps u572RrLml4xlILZdvCBo YHmwIMC2X91vc4H8 NQFrIDAyTLF5yQL0xS9t bGlnbjogbGVmdDsgdmVy gSqyPAzzQAksK606GHTi cDsnPlBhdGllbnQg IKxsYUb9X4NjCmzyuHD+ FS71GJOqQO20kQNtmJJn m1pjfPy0FeWjKVCmYSV6 yGwjKIvsr7EjLDCs A01beDTyw2F5REDerStz wLLeAqMpyZP7xE1wQFzl zoawn5agrnxkJqqbl0zu nk36gV49W74hMHuk ZHRoPSIzMCUiIHZhbGln xp7xkT5gHo8+PGNvbCB3 lPM5kO1qWCWrGlY1YEzy C371XdKoqGXnNxjb c5rni4gomMe0HdQ9FFKt nbXszYrrGUK8g3ChGr03 P15bDHquQUDsVVEhQCGg ZIUdxMizvn0zqY7n Ii8+WJWwkMN9nSI7pH0r WiKkNnC4TEahI998SvQr mMJnEpqdI33oQ4EcrVD+ MCDwGkv6EDWffToa AJ7kaMEsYFpmIp9rUGP0 PwPnFiAmPUhuH6KdCQDf otrduurctTA9LPWiIUNr sN61Va6xcWokLDOr sZOQyJ5vxdknx0omqmpb XtUpNIHrZJi7ZGs1ETNe kPpmJuUuSKY5NdU5LQX9 iEYbtC2seUsygxuz aZ8lF0BbZXWgueevQa55 cF4oHrRiZcJ4SAbuUrz+ M9VFEMMGMIOQQGycFOCJ RAFYOQ97PG01qZZe w0T0pVY5D9AuGNTylwkg vdurvIZ9GLPiQYIcuY03 vIJjMYguIv1wp2L3g433 BOEoBZSjrX66Ry4f xAvvEPFwwWPSeG3rehrq e7lqzighGhSwWJHtZYv3 FEm0GWWzpYqyDbBhITI5 TyL7LHZ5tYZgrT1e tGzavxrgkG6uRor+MDEv LZYfBFz8XrogcBN+PHRk EEQ8yAgqFPbnNSMgoG5k YTGrF5w8DnQkHhT8 LJkzP2GuGTEzpyeuYu50 mD7tTiVuWnP3QVvvP7Ai cdZ3EOPmuQGsYFxbWPA4 T98re6H8WWTcYHZr SNL8dEN3gH3rrXskkcxy bGVmdDsgdmVydGljYWwt HMwcK730GFJclEaqKlkh TMxcQRRjEV46CS41 nKBsi0E8nNQ9G6TjDPIa rxufelbfuXE1KHKfDYQh rI51rPRfVAgbKm7eh4E1 y684OAVpICFxvN67 Ml0mmUerJFXqcWNJoB5t uajvk6uvptzsHdFqOESw ALs1CJk0GELelBpxHsGe FWS3YvL6CWN3kHYo rK8liQrbkhmclB2vInv+ TUFMRTwvdGQ+PHRkIHN0 lGbkBKduRHFruV9pFDOt C9n3IxChXfG9USdv X8GxMRAxtbmsMo43oK1l KnVvEnO7HCekR8YqonL0 UNWrjFMsKDpxNAB0N97o t1N7LQXdQWIcHGF6 dPS1pK8qwKoyzmyuoBLe dDsgdmVydGljYWwtYWxp N258ELIzkJxeNs6CEX02 XN50A7FnSguhfLZr bGU+PHRhYmxlIHdpZHRo HGkfYVVfNnNgaDnwQK3c Kn1oNANwYKKdhKzshFLr LbQra9pyHZZiYSpv XI1sbTyoN4GxqIP9BMUc r0o1Jl65E42xV1YzjYP+ RVWliGF3lIE3nL7rHlMn XmE3GElgD467NfQi eJGgCatyo5lpx2kviSq1 IjMwJSIgdmFsaWduPSJ0 q0DkOa00K19aUSvoTOGz PSIyMCUiIHZhbGln uc3kaV0qXr4+PGNvbCB3 pHD9fZ6aMuRuGoN8MAed Z634QeIzhNGiLmbpL68v Y1FxbJS+PHRyPjx0 YDYddBmmYJ5hnZPrNOne Iv7mOWL3XlJoPaZtUFmw K2PdGHFhfeuzbhgmyDR7 FBBqNJUwmJ72Zq6i aApjQw2lNVZaMSH9XBUs tHExZ3WxgG3vKmGwXKWg PFGhD0ZwqJVzFWavL137 DRyjEiJ1ZYHowrJw J2QvRWQvhKzjSlE2r0P2 Kl5XkDthlNEeJE3gQeSq UUu8Z9BzRhd1XTRpxLve EP7vjLPeQTngRl9t kWpjzBhyLX6aPVLmnksi y211LxLmm3wxYGSvmFBv HXrjOCI1T48hs2F2KUAy NVLqVAA3eUS3lT2x bGlnbjogbGVmdDsgdmVy xQcxSLxqXHmvX115DHQo jObdTuEFDax8E2UdUed3 UZFrjBbpRV0whAQk NFvyAs8zbFrxtMqlGG3l XFHibukrm786YaZgy3lr KKPulJAfLEuqOPF1H61n q4D0SEMmSKYlHTQ9 oTT4rR0zbBlbqnoucASc dDsgdmVydGljYWwtYWxp J531VYYuxKqpFj1PLxn8 Y6TlToz3QJKfuYkh UH2gbBJbZHdsQg4riTes kRnuIT1lNACjaifsm379 QdOct5jvHZVwlLGgHBda LAR3U30sk9T8ZIFq CTCdUBE4cAT5fT1wqBwe bjogbGVmdDsgdmVydGlj ODsxYVrhC461NLAchEws PlBheWVyOjwvdGQ+ UR78dn73Q1GxNcxzOlj4 MAIxLWD5iLY1qE9gXPAk HNwkp3G1iFL8Z9YqzgJs nb0lg5hwSAAmVJfa Y29 (more content not included)... [facility] Outside Recordson 03-04-2024 Outside Records [id number] #[email or web address] [facility] Office/Clinic Noteon 024 Office/Clinic Note Patient: RICHARD BOYKIN Age: 83 years Sex: MALE : 1940 Associated Diagnoses: Type 2 diabetes mellitus Author: Marj Sorensen MD A History of Present Illness 83-year-old male presents today for follow-up and management of type 2 diabetes. At last visit his A1c was 9.6. I wanted him to take his Toujeo 10 units in the morning and 10 in the evening instead of all at night. He was having low blood sugars in the morning but then spiking in the 200s throughout the day. He did it for about 2 days and then went back to taking 20 units at night. He states his blood sugar this morning was about 78 he was asymptomatic but now he is running 232 and he has not given himself any insulin. Review of Systems Constitutional: Negative. Respiratory: Negative. Cardiovascular: Negative. Gastrointestinal: Negative. Health Status Allergies: Allergic Reactions (Selected) No known allergies, Allergies (1) Active Severity Reaction No known allergies None Documented Current medications: (Selected) Prescriptions Prescribed Freestyle josee 2 14-day sensors: See Instructions, Monitor blood [...] tab(s), PO, BID, 180 tab(s), 3 Refill(s) hydroCHLOROthiazide 25 mg oral tablet: 25 mg = 1 tab(s), Oral, Daily, 90 tab(s), 3 Refill(s) hydrochlorothiazide- lisinopril 12.5 mg-10 mg oral tablet: 1 tab(s), Oral, Daily, 30 tab(s), 0 Refill(s) levothyroxine 50 mcg (0.05 mg) oral [...] = 1 tab(s), PO, BID, 0 Refill(s) loratadine 10 mg oral tablet: 10 mg = 1 tab(s), PO, Daily, 30 tab(s), 0 Refill(s) nystatin 100,000 units/g topical powder: 1 josé, TOP, BID, 0 Refill(s) traMADol 50 mg oral tablet: 100 mg = 2 tab(s), PO, TID, PRN: as needed for pain, 0 Refill(s) Problem list (past medical history): All Problems Acquired hypothyroidism / SNOMED CT 475744089 / Confirmed Afib / SNOMED CT 60398371 / Confirmed Chronic renal insufficiency / SNOMED CT 3311427455 / Confirmed Degenerative arthritis / SNOMED CT 7482796452 / Confirmed Gout / SNOMED CT 984817313 / Confirmed History of psoriatic arthritis / SNOMED CT 453174372 / Confirmed HTN (hypertension) / SNOMED CT 0131385422 / Confirmed Hyperlipidemia / SNOMED CT 07142026 / Confirmed PAD (peripheral artery disease) / SNOMED CT 3959564365 / Confirmed Thoracolumbar back pain / SNOMED CT 436988019 / Confirmed Type 2 diabetes mellitus / SNOMED CT 746596830 / Confirmed, Active Problems (11) Acquired hypothyroidism Afib Chronic renal insufficiency Degenerative arthritis Gout History of psoriatic arthritis HTN (hypertension) Hyperlipidemia PAD (peripheral artery disease) Thoracolumbar back pain Type 2 diabetes mellitus Physical Examination VS/Measurements Vital Signs 02/28/2024 9:29 EDT Peripheral Pulse Rate 56 bpm LOW Systolic Blood Pressure 120 mmHg Diastolic Blood Pressure 78 mmHg BP Site Left arm SpO2 98 % , Measurements from flowsheet : Measurements 02/28/2024 9:29 EDT Height 179.0 cm Height/Length Measured (inches) 70.47 in Weight 107.23 kg Weight Measured (lbs) 236.401 lb Weight Dosing 107.230 kg Body Mass Index 33.47 kg/m2 [place] Body Weight Calculated 74.087 kg BSA Measured 2.31 m2 General: Alert and oriented, No acute distress. Neck: No carotid bruit, (more content not included)... [facility] Miscellaneouson 02-26-2024 Miscellaneous [id number] [email or web address] Provider Orders [id number] [email or web address] C[facility] Summaryon 02-11-2024 Coding Summary HTMLBase 64 WfypcxpeFHf7iRb+PGhl YWQ+FT5WQYImB03qxBOr dF5cA0KXKJkFYisuKJUV QNjEHjHyvyXaQL3olQAj ZXJu IC8+DE4eIQYlScasbUQr m1O7pQE4K24qsg5qIYhm bMD2VVPpHqJdwtlfn4iu jPe7MBdiXfwjVpNw QKWipS11RUI7yV60Zo19 fFNlqAJuk5oeqVi4UuBw DAOaQBB8qGdqNVssg4Ci UAKiZ19rdJHlq9Y7 IGNvbGxhcHNlOyBlbXB0 lV0jROgeuiyvr7gamlog Cqr5qn82tQXoy6B7vBK5 P0WazlE1CCMmjJId TyztmMCFfT1qtawlf1zj xvdoKeGuXRPuSWx8BAo9 XAQczGbnGfKuIR34XKW3 TBWiaaQfT2QwMZVs nHnnMyE0v2X2Vc8FM6GR YkmeI0UORDFINNvxbHS+ RY62ok16I4IpRwzeQzi1 URFcNKS4aFJ1vX5d VMLxUBprk3A9vRQ9P6Ma ykXrep6lf7faPIEbWQhm M98tlETxd9L1ISEolNO3 AGBdiTwpZnHvxI82 Oyc+BIGqlTfkp0YvDnza h4ybl2cceLp1CxtgXXHd wcIkuNwdLSZ2x8XtLb2f AOCpqVN5wWU1xI1n ErRbCuL8QGrgU038PcNn qLJeUlqhQ17lF5PrmKU+ OVGnYap0HTVlwTrtLW5u X4ZyRKFhjhyhnQQp aHdlML9tRKFqudeqCZBv vK9yLESeP0d0NqKdDzE7 UFquL0BmZZLpexmfYv50 tO8hXtRsJmU0QXif J5WszmO6BLTrdIBsUXva ZQZ6R67os4F9SSTkVQMi GBW4rJY7zY5ckSehboab bGVmdDsgdmVydGlj IKdaCVxbE147BWLsdYqm PkNvZGluZyBEYXRlOiAg MDgvMjUvMjAyNDwvdGQ+ RVHsSDW1kYcaFBOg lOIoDLgtLd2huSqapShw IE4kSIYgbysqAMOxhZ4x HBLzhWOdoCtzKP4zRMRf vabiy861MvPrRDN7 HYUogBAzJ9RtiA6fKjHo WKHoJNZaS7MmhPGhCBwb Y027NUsjYlC1KJIndtDw V0WpNKCadMosKkK4 v3Z3Wp8Su1YminlqF9Qd dEEzKkAhTevxABl6O4Sh PjwvdHI+TF98GDWjTS19 QTb6EJA9nJpoSLdt VZSrM4PiyX9sUoWpNSWw ZGRkOyc+PHRhYmxlIHdp ZHRoPScxMDAlJyBzdHls AV6oMm2cOHFeKQQr jLhzlPIbEdVex8guNRRn GUnkFP6ngPsdC6QtcZJ9 FECux3u9Xx83U26gN4Bh dXA+RXFqhHC7fKP0 dL0eCqWcYsD6VNklQ047 VuKhcYPbLctgp4krt3vo rEs7WgS1ZLVapgMtcKaw TQB4b5TrBg35T46u IHdpZHRoPSIxNSUiIHZh mRgabw5nxF0wZz6+PGNv gLD2vAC6dA7jAzOqJgE2 EMgfL122QfBmeFRh Wrkde9cbl4javMx9DmXl CHUmmmCtzNvnTGT5o9Pm Of65K1TdkWpkl0UpOjz8 my31bIXem3L8vBW7 X4EwSQCthezobFHhmHmx FH3eNAHdgnvyPBMvtZ6v PSIdC3s8YxKgXyU7PWmb C2VduxB2EEFsmMWq HJFsyNKEiO9qponcw0sh fftbDoXgGYUuSQd5ILk5 QBKxeNpvKqQzPTS1ViV1 JZI0eNQzdO7qrNzl nljsmH0uDyn+TVC7oAZc kIBXWC8bKaiwfZL+PHRk YWP5eVbtQKuqZEDjhG5m NROwI3h7TyPyGiX7 VOcjF1XxbpZ5XJBsrJCe MUJevQMWmT6bwjcxe0rm obbdTbCmLVGtLVk2EYl9 LWFsaWduOiBsZWZ0 LpZ6ZBM0zYRgoL7kbTrg trqclW0xQhx+QmlydGgg QJH8SCm9S4GdAum0IHZh aFysNU6ytFBuVKzb Uq3brGsfaOyxFM7yLIBq gvyln446ScOth3ibJWTp eBLiZHmvXNZ3W27kk9G7 WDDmKTKpJQW3aIS9 tC5qbJkrilwbpDOazYmb csHrjBjkCZneQZsuC573 TNPivGclAtNdTJr2R2Da Yzi1FFVygPmfOL1y kYRzGYzzXn9vuPetiFfi KJ1wJAUnjzrjj541IeQu k5vsOEVfpEKeKOepWLS8 H34gw4Y8QHDdTPSg XEW6rYK5oD4gnRpjxqpb bGVmdDsgdmVydGljYWwt KJnqN279ADLlxEmzUdZk oJm2F7OzNmr8ZFJz yLetBZ8ooVDmRIgmSj2a zBksjRifQO2dMJNyiktd y299HbLtf4alMNHzdCKf UCffFPP4X81fi8T8 ZCOnJQNwUMB0rXP1uK7r bGlnbjogbGVmdDsgdmVy mRpvHLgjFVvmL271EEGt cDsnPlBhdGllbnQg YXsoSIo9U2OoEvdkiMI+ GV22AVZbMP75uKBjsKIm p0vrwVs4QmSvLCSnSOS1 vAkcLUwlo2SnHKCb O26bqHAsv2W6AXTiuGlm jYWiXdBldHT0yT0yJOkr jlgbx4heewnkGiznx1vj xy86sZ00O51fXDhj ZHRoPSIzMCUiIHZhbGln de8ysI9fKz2+PGNvbCB3 lRX9lM9hEWQvLoF8AGay K490JhDwhUAqPfbh k5emp1amhDd6IrO6CCEm jtIodGgmYYO8v3GvVg24 A56mPTpvGCEjQWQeIGEx NUHbkXmkwr1pfV1m Ii8+BRXhtPO1jXI3kV9d LjPlZzS2DWzgE897YzIh eKKtEfchY47dX4PwzKA+ UIUqYiy0SOTvlDrn IG0xkBIjLNbrQg9jERG6 IfDwGnWwGHehW8MgNOSb eofxihaduJJ8MVPgXBBr iX39Nt2lvNvlSGHx bQANsN3phsozm8zmxges SjGtCVLuZQk6XCl6PTBl sWanIvYtSBB4VvM6FWM1 bADjzP3yiQrnmcba iQ9pK9WyYPZhwykfKn75 dS2cXlMnVzK1UEfiLts+ A9RBULRJAUTZUNhjBDBR MNJFLV10ME90fCAy j3F6mTR8Y8OtWCDgsscm nbqzrHI3OIMeMHVbjU23 zSPyPCmxXq2sg0Q7z870 BNBkSXHakY82Cy2b tNgtHWMgjCTKnL2brlam s9aoafpcDlMxTNYbYBt7 SDt2OHGipVqvLqSkQMS5 IbB5MTC4aLQpvG3e yWgensoikR0pIou+MDEv HNMmTQr6QledmNH+PHRk NTE5qDjyWFcsHCDlaL9l FYJlL3t1LzMlGdV3 TSuhK1PfQZQyzkznNd87 vU8jLhGwTfZ5PMbcK4Lf unQ1RWIfnCMzSEkqGYO4 F35qf1E7ISIjMMQx ZWZ5xAC6kC1xzMswtiqz bGVmdDsgdmVydGljYWwt PHpfQ569LOPatTlqZirk LUbqXCHpMV93XU26 qFXrd3C3rTS8M8KdSGQp uixwuubryYK2NBBtQIPf pO38vOEjXZxpJa7ew9S1 l192EXXkCLPzxI45 Dt7toKlyNJKamAXNrD5a eisgr9kjezbvZpImXPCe TYt7CXs5FDXzoPsvOyJv DDY1JuK4JPI5aBKb qK4qrGjdmujewE8qTgu+ TUFMRTwvdGQ+PHRkIHN0 cQamDQnfOIGdsG7lVSAz X2f9OkLdWeR0LKvp J0AbNXHqpvwcSh16iU6g GwJoWyN2MEonV8RbsaF1 BDNnjJYqAHrlYYO6Y63x p0R6MYHpCVXzNSO0 mHC4nB2gxVsrbldfrHMo dDsgdmVydGljYWwtYWxp M565SJIsoNgzQhHhV0Gn cmluZyBPdXRwYXRp ET67GY61QV90Y3CpVuca dGFibGU+PHRhYmxlIHdp ZHRoPScxMDAlJyBzdHls GN5hHz7lUPNbFAXl eJgwbIFiIvXed8hbNBMk EQyvPW8ezAsxA7JoeVX8 NLKcs0x4Hv47D99uO1Wa dXA+TVGnsUR8nNJ6 gF5uPeUeYjT7HExcS139 QaDzrPBzTfdyh0sdg7nz hHy6FcXbLDAylgJleWsx UGI3o0NxZq85Y09y IHdpZHRoPSIyMCUiIHZh mQygvm9hsO8tCs1+PGNv zNK5iFQ8aK5bBgTuQdD9 FHypG070OcIxrMWc XhbiN11fF8NnlLG+PHRy Vay3TETagYbzGZ1kfDDw LSfvWb6lTWG3VhGtDjUm ZQteW2UlKEOutarc pqmjdLB9KYZwCWFslN04 Vk5zpJglYn2zDKVeRYY7 CYKkwPLeC8WhoL9pHuPr HVOlRGOxG0UpyDLq VDzaG608CRtjZqM9AOWd tyBqJ4BnAONmdHbkFxR2 x1M5Qv6PoRgzzIWtOT4i UoHlKNf7X5YkVng9 FGOlmGnlNM9dpTLgKTpn Xn9bgZetzWthAF3wHVQt dphcg239IbIwq2xvTFWd dVCmVNncXOC1G81g s4Y6QKLwDUWzBCG1uKQ4 eE4xtGmlwsucpZEmgFpp xtIcbAgzKPhtWLtpS321 IHRvcDsnPkZJTjo8 H4FfQvi2JOQffEimVB1z wNWeTPjaFc8sxMwcfFwp NC1gBIAzdzxss163OtQr n1qkTFMsuPAvBCfe IDR4Y29sw7P9ZHXkGEXj WXN4uRT3pV7epNcgxicg bGVmdDsgdmVydGljYWwt FDplP549IYBxaJnh Ha0SRpg5F5AyZca5ULQm yIxxRM5qoIKaWCjwHr8c pWsgyWpwFQ2eMSTljcwp a327FvKnn8etNSVi nHLlAFwpICB3N46ih7B3 BSXyXQJeXDE8tBH7vT8g bGlnbjogbGVmdDsgdmVy aHdwABpaWHyqM614 IHRvcDsnPlBheWVyOjwv dGQ+OU96lq30A2EcBcaq Wif3QSQyBQX6iNF5lO9o BNYyRJpwd6E4aZX4 J2J (more content not included)... [facility] Provider Orderson 01-29-2024 Provider Orders [id number] [id number]26[facility]24 Coding Summary HTMLBase 64 ZynrviniZCu7uRz+PGhl YWQ+SD7DFZTyC11zzOBo jP4bT3EBDZoBJewfRYCP VJlVGxJfweOsTY4gyYLd ZXJu IC8+OQ3xLIWzMibiaMZk d3E4rDS9Q20eqx8nMLjv iIN7NDOeQbMzaajmz3gi kAi0DIanVgsdLcVk RBDgdG02ZTX7tK59Dl40 qRBzgLTwm9sfqDc4TdVg EWBpTQI0lCzbRIqhj2Qm TGYxK15qnYXqx8E0 IGNvbGxhcHNlOyBlbXB0 yP5yQOkrdyjun4rculub Zhx4mf43fZUob7Q3eOD8 Z8VkoiH7FRTrmYDk YsfgrVPUbY5icvgsp0lx lchtNgKkOQOeNCl9MYh6 VVOaqAfjGkLbCY25JET9 QVLwavVvI9GnRAWv bXheWzY7o1G2Mt6TV8PR HgejO2MODZBERTrrpBH+ MV44ua05H5EsNsgbTss9 HCLnGUV4fPQ5eU7j JYJtLQbap4N7cOR8D4Ms nxFchy5yw4rsUIQnZTzx F35nyLErp4R4LRIlkWT5 QGMioOsqGiOufG03 Oyc+MMMrsFthv6UgFqgx h9fbq1kvjYg8HddxPICt dkFhyIqcODA6u3VxLv6k CVKovMO0iHD4tO2p ZaYwCiG9RWliZ516ZvJg oBYdLtjuG04aL6SklQQ+ UBMfHby6SQPcrWdyEI2s K5XdOUPctojjnWXk aIfuDB2tDTMdhqazDLVb zC4bGMQbQ9l4TrDgSkE0 LTgxE8UvDZKdaacvIo18 hC2qRiGeMoM6OLcd L7QxuaB5IDAgqIQcSNei XIS1H35sv1E4TSXbMFPi YNX5pBD0sX9owSyshrsp bGVmdDsgdmVydGlj INwtQEouZ850CRKzwPzj PkNvZGluZyBEYXRlOiAg MDgvMDkvMjAyNDwvdGQ+ HZGnYCG2bAuwYHEa kAGzPHdmQo3raLcrcZkj KJ9cRPLkaxmyINOduU9v SRBfsMDkiQjfNJ1aYMEt egocf191KgOfIYN2 WJUiaOMvB6KijR9ySkRq FSIaWGWyO3AciGQcWKxb A757CXcgPrF5XDFhxyOf Q4NhXALbtEslIiI2 a5P4Hr7Uu0MqonrxF7Cq bZDwUxAyBrzqVXd3U6Cn PjwvdHI+JL15BLOgFK80 AMw2UGM9eTvyJWng JPBoT0OwqV1qQqDqNGZz ZGRkOyc+PHRhYmxlIHdp ZHRoPScxMDAlJyBzdHls AE9qAl8eTKGvVVSa bValfZIlDmLgz2ntKXLi ECklLY8htOaiW3IvfWF6 HRIrt2o7Hr62E29nT8Hk dXA+SITclIA3nJY8 gZ7wXbZxSeO8LCxmH357 OuYzjTKnBajne8chc1uy lKu5AeZ8GRSgouTxqWqc RMB2d6JqWu23G07l IHdpZHRoPSIxNSUiIHZh fNeukc9wqP3lOw2+PGNv qIL6lVE5cV5gKmPzVxR2 NGrqX984XoWexGCm Uuijy3vjy2qobUm5TkKz NEUapmJecGewEWM2p3Al Xj76I5VdqDarh4YgTqu6 ge60bFCdk9G3pOX5 M6RvBMVcogwyyWFqxVan VK9nBHOuyatnKOWeoP4u MUUbO6n4MkNnSeL9MWmr E8AmzcI3JTPtcXJx LKFbnBPOaD0witfgy3as gjznWsYrJBRnSUe2MSx9 ZXEctIpmVrQxCXL4InG6 VIV8nDHlnP6qgFgh hrxdgX3vWqq+ATH0eLZf gNGECX8bDkabmKR+PHRk IOX9dGgiSGxoUHQfyV9h GPPcO9z9LpFqPuH3 DFdqE1AyadL8NYYcqJMy QPUzcKEVaJ3apmekw7bt tzwtMjZyVANeSSs5JFg7 LWFsaWduOiBsZWZ0 MlM3ZDN4yJLzwV3stWzz dktogJ9wDmc+QmlydGgg LGV1UAp6C1WtNqv8DETc xVbqKV3vqXJpCRmp Ln4erItcxHuzXM4rDRAi vlikw382WmXkp5uwIHFi mTHsVYtpOQL3A13lg1B5 JCOeVWLeFNS8yLX8 iA4ckFrbhjwdnNIcoKxb dqOvpXqtDFaoIYtiM567 DJXriBapBbMbOYv9Z5Cw Clt5NDHqlWzsXP2a cJMjPXczCz6vkGzbvKao IY8qEFGkczzji956IaCd v3fwUYShtQRxUOnlGLZ7 Y85uk2O1AYMbSFTj VJU5wFM2nF4sqGnsvcms bGVmdDsgdmVydGljYWwt UMlzR439JWMhePuxOxTq eLl7X5EfXgw0FRXv rVhgXN2swZDxPAxfQf1p wJkjyKjcQF3rDLWzqthy x458EkDxa7pkMSCwqJGm FFpeBPE9V13sl7J0 IWFyXVIsYCH0zHH8vX6h bGlnbjogbGVmdDsgdmVy vNinSWnzEOwyJ526YYZw cDsnPlBhdGllbnQg QKzfCHd5L1MoQhccvIM+ KL35LWGjJT66tPZqeBLi c3fluWs2XkSyQMIlDWF1 nUbfORmxu6WzVFUc V71bxIUvy6R4EIFetJma rONjJhFblCG2fV4wDIth ichiz7kxilneGikmb8tx wx21iI54K99iOCey ZHRoPSIzMCUiIHZhbGln td8wwK4nEx9+PGNvbCB3 jSA6rR5lPNXyKfT0RIce S473BtQyhAXqUfoj n4zjb9opvBe2XyQ4BTXe nxCaxSxnOQS9q3LkVb82 A84bMEsvPDPyCMQwATXn DUWjeNguik5dpP7p Ii8+EEDumSI0rUK8bH6b KyHhUfF8YPysB214FyVq gOKoBseyC10cQ2JsqIK+ LQJzSoy5MFXmmCdu DA1xrQIiWEysGy0cRGF3 GlIhJuZrXXosJ0EzSSNl luxjkfejfZZ8BUWtXLCk uI97Ib7wvOscICXt sXYBbM7rxzbov3psprxv RxNrRSBdGFd2KAy0YDFa iSttMiXwBNI7IoD7OMV0 mTIxgX4cqWbsputx hR2yO0LiJTIoelfgOj68 pQ9aRkSsUsL3PEugSya+ M9ZHSQRCOZOBJQiySHMN UNRZDP20WF77qBSe r3O6aEY5R3TyRCZzckwb xcjktAI7PHOdJOOlbP70 sBVbDCxnHf6cw2V7w713 UPTzPXEtzB62Qz4s vNslLBJklVXEeX7hvavz h5teasgdPxSeCEMbBHm2 AIw1HTTngEbnQbOdTWI4 GnN6PGK0oGDqqI4u nCwmuytckL6lNgt+MDEv ERVhZXb4LhntdOY+PHRk PQS6dNuqRFmiZAVvbZ1l OJKxR9f5WnJnWjR0 SZjfX8JrMJBsibrwFc27 jS6sAxHgPeW7VQwwG1Cq edJ8XERyjMVpGMsvUSI4 O56zz2O4DFJeOWGh KMC7rLM5xS4okTpzihec bGVmdDsgdmVydGljYWwt PBxtM001YWCslCtoBfly SOobFDKmDO62WW96 oAOnc4O1xTX4S5QzUNIo ijvosvibnYZ6WAUfODOq cU29jTAxGRljDz2zz1L7 q538DBCkEOHjiM07 Rv5fpXynLPBrmHGMuG4e rquqk6ytrdweHjMhGVEn HRi4JJm0PPZodZurRaDw VEZ1PsC3XSQ3uSZn bL6zyFcbikpzsP9uJrm+ TUFMRTwvdGQ+PHRkIHN0 qOlpGQnoQQVhdX1pJMBd J0c0VwAxAsB4WZfs J3NcUIJmiegkUj70eK5m FqMvNeV9YPyoI3FospY8 LMAtmZOgZUcbBQF2B22h n8H9ZUEzKYAtPGK2 fPI4xH7jaDwdqiuaqULe dDsgdmVydGljYWwtYWxp C086RQHlyKmlWmMqW5Lo cmluZyBPdXRwYXRp NS00ES59LZ29F5HvCivm dGFibGU+PHRhYmxlIHdp ZHRoPScxMDAlJyBzdHls ZF3hCa4jKEQuPNQt tYnxaNHdRiBnk5mgACAx BYuhEJ5jrBzmK4MafRY8 OCOny3o4Ce55F90wS8Ce dXA+SLGdbBI5tFS3 fO8cUgLpIdV6WMvrA001 XbOdxGMgEscem5tqy6bk eQr0VeMsLDYvuoTgpGru ZXC4z3BkHi28O48v IHdpZHRoPSIyMCUiIHZh fSxowl1oxN7zIm9+PGNv mNP2rEW1sI1xQeFbVxN1 PVbsN609XzWhqOCq BjtyL83eY5UfyPW+PHRy Wly3XWFjjNnbXE8ghVTw FNjoGb8wFDT7ZiCtUyOw ZUxiI6BnPCBxkavm ewsitYN4EEBkWKMtbH27 Sz3ddGauTe7dMBCqSLN6 JMInmYHoA2QpaE5yBtVf JSAsGZMmW5OgrJYm INozV245PJouLgF5UGQn rcCcG1NmJQVioSjaEgU3 o9A2Ts8DcMwleKAgPQ9u NbEvKAo4G9LzLmu1 PKNznKfkSV2aqAGfQCop Wf8opLrtlYfmJD0vQRTp kzfck812FpKua0oiQEKb qTVvBAhtKBB7X13l v4E4FSDmOUSgMGH0zYK1 gW2mfGwejqsumLUjfWrw ldPduEybDQhiWDipG529 IHRvcDsnPkZJTjo8 A6TgVjp3QDQpzGbmGQ3z jWOeQTtzEr1omVxprJqn MF5kEIWelpbov115EdQo c8edCPIdjDZrUGid MWG5Z87if8O8ULScGUSj WTW8fZK4pL2plYekghbn bGVmdDsgdmVydGljYWwt QVktU041ATVglNmv Op3IOxf4E9JgJgh8GXCv wDjrFF6mwROgIMvpNo9g hZaixRoyPH1wXUPnphfc r433PhBbp8enSUQb rUWyIOqgUPP8E12rp1T0 HAVxGTApJLM1pOP2xE4z bGlnbjogbGVmdDsgdmVy xAxzNUwbMIqyC618 IHRvcDsnPlBheWVyOjwv dGQ+QT58xj91N0ZjObnc Hfw5RGGbJHT8gCH9dM3n LFQxCYcud6K1sGN4 J2J (more content not included)... 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 He is also undergoing physical therapy at present time to work on strengthening of his legs. He does continue to walk with a walker. Review of Systems Constitutional: Negative. Ear/Nose/Mouth/Throa t: Negative. Respiratory: Negative. Cardiovascular: Negative. Musculoskeletal: Negative except as documented in history of present illness. Health Status Allergies: Allergic Reactions (Selected) No known allergies, Allergies (1) Active Severity Reaction No known allergies None Documented Current medications: (Selected) Prescriptions Prescribed Freestyle josee 2 14-day sensors: See Instructions, Monitor blood sugars 3-4 times a day qAC and Qhs., 2 EA, 11 Refill(s) [employer] brand glucose test strips: See Instructions, test blood sugar one to two times daily, 100 Strip, 0 Refill(s) Singulair 10 mg oral tablet: 10 mg = 1 tab(s), PO, Once a day (at bedtime), 90 tab(s), 3 Refill(s) Toerich SoloStar 300 units/mL subcutaneous solution: 20 unit(s), [...] = 1 tab(s), PO, BID, 0 Refill(s) hydrochlorothiazide- lisinopril 12.5 mg-10 mg oral tablet: 1 tab(s), [...] 4 mg = 1 tab(s), PO, BID hydrochlorothiazide- lisinopril 12.5 mg-10 mg oral tablet 1 tab(s), [...] subcutaneous francisco javier (more content not included)... [facility] Coding Summaryon 12-12-2023 Coding Summary HTMLBase 64 TkqdrykhUFh8wDj+PGhl YWQ+XK5ZMAHeL50qnASn lC3wA4IKLVsEKxtzBEWZ XGxWAtNhfdRbLU9lpBVm ZXJu IC8+YG6yJKFeZdzkqTMb q6Y8yVF3D39nqh1nBRqg xGD4RFUvPvQpykxyh5bn fKm2HHulCciqHpAi GQWldM55XWS8yK99Cu17 sIOkwTBzt4wbaTa1LnSe BZQeMLE4cPtoEGmgl0Jf DQExL73ivKNak4D3 IGNvbGxhcHNlOyBlbXB0 jU7fDUkmarnvn6yatism Cuw7yn23zNVhp8I2pNP6 J5OhdrU5NRRvxJFj QpdkvKHZxQ1icnsbv9hb alubMnSxKWVsUKh2GSy4 NYGjaDirZgYeBD90FXQ5 RXAlldBbD6AfNQUs eRmxGkO3m6N6Yz8BG9XP UstlV0INBJWMLJbnjVN+ YD08tr72K2OvEjukNdu5 DOOyHCT2lYC2kX4j WSKmGRsqn2S9pPW9B5Gv fdFtgt5qb4zaBYLmFFfd L64lhNHzi5M7CBRmjUO5 TNOfyDncUaNywU59 Oyc+GZCxjGift2WrBuxf v1jsc1ootWk7LtcpBBSy ruDfnCpvOPN9e0VoOj8c IBGlgTW1sFS0vO6j KdXjPbY6AAcmU707UxDl uIOfVhzsE56aN4EmtFL+ UNSfWrq3PSDqjUzlAO0v O3SpSTIrgfqnuTBl uDldBZ1dUKWtggkuTFHq sH2kNWAtF7d4YfYpCoB5 PJfuD8LhBQCiiausNj53 tX9rRcWiFrA6XBiy U9YuxqN1HSSwxHEaKCjr WZK4L79fi7K1BVQpOAFw SSR0jUL9aC4fbWksjniz bGVmdDsgdmVydGlj UExzDFbrQ391VPZpiVim PkNvZGluZyBEYXRlOiAg MDYvMjUvMjAyNDwvdGQ+ ORIpJZK8xRhxZOUr dHBzXRrkXl9cxEsguVnt KQ3iVGLphutnIOHypE1o XCZpfCUhbKqzAU1oKWJq rdsgv147BaTcCWQ1 VVYjvEYuS1HepF8hMcZi AIRnHSOgW5YpwJFmGHlp I742SDabXrH8TAItowWe E3XkOODqaPkiNzA2 i5X4Mv6Br3XtitnvR7Ye gMSuXeBhWbcbTXb1Q6Cd PjwvdHI+TK08BQKuVY82 ZJs7JVD5eKriBAep TPSbO6YktB5sKxZwCBZd ZGRkOyc+PHRhYmxlIHdp ZHRoPScxMDAlJyBzdHls JJ3gQr5pRDYeOWKt iUhraRPgQyQql9icPYXg LGzzLO7uwNbqP0IcbXZ7 GVFkr1h4Yn21E98bI5Zp dXA+KSBxoSS3gRD0 nR9tYfLsMrX8PMssQ407 RkKvsGUmVcvom4eqc3cp tRi2TbE8WCAuvcGfjSla SUT0n1MnPj40L43s IHdpZHRoPSIxNSUiIHZh qQtyfv7hdF3uJg3+PGNv oAC1sWI2xW3jLmGnIoB1 YOoyJ961HiUugEZy Rprze6mzp2inaVg3UgZe KNFhvbXmvFdqZDO7t7Wv Fz17B5PvpSxmf5JpIoo1 di09gLSqx1V1kCS4 F7LcUHChvbtywJTexWll FS5xEKAbkqsyQZUgmW4i UCDqM1t9PaFcSxB0TAnk I2FohfC1ZAOudDPc BGQwuVCWkA5vhkvqo5ns qspwSqKjCRZeTLr7UAd5 WWUbdFqjZvRmRNK8WzY3 GOS3cWMlgY7jvLum rzijxB0mIoq+QGJ6zZFa cCRXVA6uCscpoWR+PHRk NQE6nDkhTUkwTDWpoY7q WDOeT7o8OcHzXvT1 UUezZ8YwujV4DGUfvXTn KDVvjVUBmP5ujoazt6bl ceagQeKoLRBlAKv0PWa2 LWFsaWduOiBsZWZ0 UcD3RNH2yCMdyZ4suLnu vcthsR2rAbl+QmlydGgg THI8BVt6E1UzGgo7NLOk vUquUV1afPNbWRuf Cb0lsSowtPwnYC9cRMLp anmos831QbFvn3rqKMUi jDDbPPbcWMJ3R59ad6A2 BGXjSRBtNME1hPI9 eU0gnQcmyeoedSRywRot dsBclCcdYYymIEvdZ400 TPWrvJdnAmSgOBi7V2Sr Lsr4ZJHxrYzsGM5d oNNjZWtyGi4tgHgstCys BF8dZWQslgfqo141SfTh v8loYANfoMVcYQioUWQ0 F81rn2H4CEUfVRCg AOZ0kJI0gW9gqXakbofc bGVmdDsgdmVydGljYWwt GOweW150TKNxnExsIgMr cLo2Y1ZmAxi3PTYm xYmeFN1jpSOfVIhgOw4q nDnlsCnsSQ5jHOGbrlwh k979KlXqs6fmITSsgVFi AFirXOI2B64ei3X9 DOIxBVKnMXY7vDY6hB9b bGlnbjogbGVmdDsgdmVy aPhbSBlrMVctC763OMWn cDsnPlBhdGllbnQg HJobNAq0S7EgZyeeqIE+ MD93TRCtRZ56wZFsmPWp u5fmeOa8CgIlNMDlADQ7 bSmjBGqsx7NbPNSe N55riTOzt5F4OKJbyJoj bJEvHcCtvYP7wX7jWKda ildiz4iqsosrEpygx9lx wg83yL01T46oJKyz ZHRoPSIzMCUiIHZhbGln kf3caN4vNt0+PGNvbCB3 fXG8nE4eLMCyTmP2VUwy I609JuBjzPQxDeoe d0qpz3ctsBr0DgM6ZNMr lgXwvXmiJKY6z6AlQf04 Y81uZTmzADZlQVEiDNKg IIKwlLqulw1vhM3d Ii8+BPVwxAR4oZO4vW0p ZhWiYxV7FBqnJ362ZbMh xBYbSrhnU84qT2XjtJN+ ELWgJua1UZQwfYaz FL5gfNXsBEwtQs9iVZA0 CfVsWfTyZClpR0WyNMJm oweyfdzwhHN1VKYrQNNc sX72Ho0lcYzcMYTr cXCEoL4afsxkd2vwnssu UqOlUILdLOf4EEc9SYHw iFshSlJuJIJ4RuV5AVF6 xRAtgY7vhZmcezph lG5hC8JtTIMylxzpAd77 cD5fEdIzVxR5BZzkUfz+ S5BYJRPJYBGPKUayIMFZ KJFBNV72AO14pOKu j7P0gUS6N2AuANKbvule aytljST2HBVgGLQjsV01 iURaAYruEj4vf0N8d537 XOWnBHDjnF14Yw3q rKgrQDSapKWZrC6xaens d7uxatdiOwEtVFHvLGo4 PGj0HBCkfPwoMpOoHIT6 GqL3ZOM2vXZdzB3n zToqcwpvxX3nYac+MDEv NIQmAYd8PpxuuQC+PHRk CIE1hBcvFZdwVKWokW6h LLHuC4g4HjQcOpZ5 CPylD3ReNGUszvplTv98 wO2xDyYtBlK0ATceZ7Zq ewY3VKIktUMtQLtrVVN9 O56op1W2QMCjPPGa JWK4hOW8cC2fhWvexbxx bGVmdDsgdmVydGljYWwt NNzsT278ZCZjyLixApqr MMnkPPMmND31QK38 uZNfb5B1rEZ3G4TqVNSv unsgehxdfXY1XQIfZGFv nF05lITyGGiwIv5yw1H7 b583KRUxVZBsdI89 Hy8ceWwaABIryMVZnQ2q tzjsl1nxibvrNcRmABFd XJf8NYq9UJOinZfqUzUp RGR1UdI3VCA4wHMm uT0duWfgvokqeJ9oWux+ TUFMRTwvdGQ+PHRkIHN0 jUvsJKboMUFwyY8qCAYq D5z1QkFqAvP4EMpz V2FyGGEcxpbpUa70oZ9r CsFsTvN3VSkeY6TukqX5 MATdfLFdPKgbRQF5D63z m8Z8AKGgIERdFXZ4 dGQ6zW4zsXckxzqofOZz dDsgdmVydGljYWwtYWxp G897QQBziZptZaHvW0Qi cmluZyBPdXRwYXRp NA23TP10DK89N3KrDite dGFibGU+PHRhYmxlIHdp ZHRoPScxMDAlJyBzdHls SO3zIr4xRCOrNLXp mTwmvXIbUfXhw0kaIOIl SBaeDC2lgMdpD1VawVZ7 UKPji3e4Yu05B47qH0Og dXA+HYIhcOZ4zAK4 yI3oYvCxZaN0FJzvC530 HwHvbBYyIprxf7vpt3nj qRv8UkSjAKVhoxFprBlu JUE6l7GrQq27W82j IHdpZHRoPSIyMCUiIHZh jDlhli6thJ2aWj6+PGNv gQX7rPU5zG4yHzDgJvM2 ESjlS726AwFfyRPv YxmsU66tG0TbuAA+PHRy Xnp9ADRhaZjwFL7viTDn SYbjYd9oXEN9VkHzZkIr HKwmU3WrTJSiilhq cekhnDG3VDNoJOVsxT05 Vc4nyZqqCy8oYHFvAQK6 XCZyaBRvP7OhqK3qOjUy NZWgJKUrI1YqbVXu YGkqM571YUplXxR7UJAa zlNjK8YqWABomBftAvG4 l8Y7Wa1McXxccLOfAX2g FgOzELs6E9MlBvg2 QHXtsBenWE6jmXPaZJbi Ef4jbPvpxVjpZE1lZDPh mhqdh774ArPsx7dsFJKo kCSqWGyxRPY9H20k x2Z6IHQsTQNtQZR7aHI7 mT2puGyhmgyiuKFyuQzo obXggVdzHRmpNKgeI556 IHRvcDsnPkZJTjo8 T1CiOow9RTFejDuuPO9s iLGhXFtjZu7tcHnbkCzh HW5mNRSklnvpf573VuNn l9hmBUEnpCKkKZil CKT2E60tt0B6QHEqALFg YTN6cOC5fK6coVigmpsz bGVmdDsgdmVydGljYWwt PUquV065CPYyjYjy Em5LAim3Q3MrIcz9UEAc kEccIF4xxZFlGXfsOs4g tKuyvUdpES0gRSQkoxnr d604QgGsx8liTMWx yIQsRTcfSAL4O28jq0Y2 GTUaCGNnXJM9iSI5fS3n bGlnbjogbGVmdDsgdmVy xVaxYGxqTHcaF654 IHRvcDsnPlBheWVyOjwv dGQ+GF17yr27W9TrRfqt Eet2SKMwSFL2aQF2tE4x CVUpLZyps0D9zVF4 J2J (more content not included)... [facility] Provider Orderson 11-30-2023 Provider Orders [id number] [facility] Outside Records [id number] [facility]-12-2023 Outside Records [id number] [facility]-06-2023 Follow-up visit [id number] Richard Boykin 1940 M Date Provider Department Center 10/06/2023 SWEETIE TRIMBLE [facility] Jalen Grewal Family History Problem Relation Age of Onset Stroke Mother Valvular heart disease Father Family Status - Relation Status Age at Mother Father Level of Service:28261 [place] OFFICE/OUTPATIENT ESTABLISHED MOD MDM 30 MIN Reason for Visit and Comments: Follow-up [838062] - 6 month follow up had echo completed [facility] Coding Summaryon 09-28-2023 Coding Summary HTMLBase 64 RnyiwxlkDNt6dMg+PGhl YWQ+CX2WGRTnB01udUEb wY5vV3ASOBcIXnhvLUTG DMeVVtJbefKjAI6teQPo ZXJu IC8+AU2aRYZeRxwgsWTq s4E8mZE1L50bqw7sUVjj lMJ9NVPhGuWpcipli4rb sDn8XWxwMxehTyTa JGIcaG16YHS0aG84Xh69 vLYimLCcr3fhvJg8XfCq EAIiJNK5rJeiXDkkk6Fv GYWlU35ihFPrf7X3 IGNvbGxhcHNlOyBlbXB0 yY0fANxgdpcgf2vkuake Kfw3nq86zBEhf6S6xQJ4 K0NqviN4RWSopYGn UqdfgEVZnI1vdrhrt7aa ofdeUwUeNDLvZTr4JAn8 FCFduWgeMhTjEF99KZV8 IJPigmRiR3CiSBVn tMncEuE2n9X1Fw8GM1FP FhexA0ZFXNQVXPyygFY+ HU83sg67X3VsZmllPkq9 ONKhTXY6fYW1bE3c ACSuMTstv4V5tFY6K8Yg ffEebw9hr5mdNKRyTAju C14xwEWft9U1HGLjiTM1 YTQeyAddEoWtbI85 Oyc+KAPuoQawk1TbOzku b1utd5ddnHu7AgasKHQm yqFseMquHPT6k4LxDz8m FGNcjGE5bIL5wR0j PeJxZxK3AAppF136TlNo bSHkFraeS04jF3TwtOV+ KHQoQob1VHDvxPlsVQ6c O1QwCRJhkkrazKMn mGlaEK5yUKPppaquZGBi fZ9wBZKrM2r7CwIxJwU8 YVncX6RfCLCwmhpqAk75 zW2lUqPhWjJ2NCzp O9JlykA2ORYddQPwIQzq QSR3W22mg8Z5UCYvFQDl REW4qIN9sY7gpUaqyxdz bGVmdDsgdmVydGlj QPlqCOarW088CJXdmRyk PkNvZGluZyBEYXRlOiAg MDQvMTEvMjAyNDwvdGQ+ EDAtFKM0gEbhPVHf aUYvTPtvSl7yyXazbLnr QY9gPFRkqjqgIEAigM4u PFRooKHenFusZD2sXVOt pivgm557SwGfNAL3 YJMxnAZjO7LhyE3cQvFb ZNPzKKHcI5OszORaUKqo Z216KLdiJvI0MDGhcuBj A5PrFFEiiByxJoY5 g1W8Df0Ee5IwerikI1Ij wPDdAoGvDewzAOf7Z2Ti PjwvdHI+AU82VYDiWP71 LUd4KWJ0jVinIFdf FKBzZ1FkgH0eTwNoLFWd ZGRkOyc+PHRhYmxlIHdp ZHRoPScxMDAlJyBzdHls NY7fYy6oBVHiYUXc vNpqcDUrGgPhs0wvWRCu DXcrXM2mjYvmG8SxbWH1 MKFyf6l7Dx47T06vD2Kq dXA+PMQwqXH4bZM8 kM3jCsCtZwR2XLsvX018 YiOcpOMfUwtgq8zoo3mm vAl8CxE3YLYnguXlqOfl RWD2e0QpLw89O82t IHdpZHRoPSIxNSUiIHZh fErgxe7ibQ8hDl0+PGNv tDG5jFN5iQ0zJoUbEdG6 ELubE272ZxEieGUm Ooouj4pye8rqnFa2XcSz YXNmsuYxhSazJOK8w4Hv Of50P7ApzVksm7MqFto2 vx13lXAoh1D3cUR7 M5XiGTBxdugryAOsiEad TW2nYJSyjkuwVZIscY8s IICnZ7d6JhGtJrW0RCxe K3NfkiR1DQOdiNBb FVFveSQAxL2afvmiw7jy ptgcJsEuDXXvVJr9DJt5 MQLeuUgeYzShCKQ9UgZ9 QLX3lXAudR2nnBkb byoyrE3hQos+MTE6sIGn cWDIXE4uVfibnOF+PHRk HHO4dYyaIUncIZKcdL7l VBTcG5r7NkNyCoE6 FDzpG5OnlqA9VGDhrPWd TPWmpLZDrP4oilrnv5ad hqbwDuPwFOMwCEp2IXe3 LWFsaWduOiBsZWZ0 XtE4WRP5vAQlcJ3aiRwu mevxcG1kKrf+QmlydGgg HRM1EQi7R1SwShc3VWXo nQfqPO8naSBjEKvj Ui0ytOmmnDnsVF9yVRBx dlzdu069KcJhv6ltLISr yWYfMGgiZUY0N10lj5E2 HKAuMNXuNLZ8fVU5 tN8ukDfqstrdhPWvmVmc bqUwfJfwKIglDBflF942 YIKkwVcqSbDwNHu5C7Up Wbi3NFVdnNntSM4h hYCdDSavUz8dxCatgNzm NM3aQXLfjsjrx087NmAs k2vaHKXrdTFbUEpsAKE7 C57jy3Q6BOWaZKQf XFG4xVV9mH6icClxlvtr bGVmdDsgdmVydGljYWwt KBqyN195KWVplPksNsSg iNk3S2VqKlr9JZAh jGdjNK8zeCZeZKqmJv7c iJecfZxzIV6vHNUelbuv n907WlAkx1rcEOFmfERr MXfoCME0N06pm0F5 KSGxCSAeDFL6qHJ8kJ3r bGlnbjogbGVmdDsgdmVy qYwaUYbxOPggH200UPKz cDsnPlBhdGllbnQg LEtwWTv7B4DlWbfxbWQ+ RG94ZEWtLY09dJVkvYPm o3vwsXx1XtTzUFObXAU9 dRmxXWaea0RxWHBz A59qtYPfh5D2KQUlgTpl wSNoAcEuyEA3bO1eNWhb zbnqd7cmarygYzpia1vt vi46bV98T87bXWvr ZHRoPSIzMCUiIHZhbGln dx2gnL4nBf9+PGNvbCB3 eVI2lC3eBETiWzT9GVhr N103HvGzkZMsIlpg o2mgg2xpkWi8AsB3EKXb raRhuAggTQJ9q6NqJl31 Q55hSHegREJnEFKfMCQr UCCbeTnzvc9abX1y Ii8+SRCcdZA7vCK5hO8n KtTsNwQ3GTwwG846YwJx xIGmNdlgS68pM4PvqGR+ FMHfRfm9LMOvvYwu DH6yvVIiDAbkGc7rVYI6 VjUmNpQmMBckZ1QxZHFq ihqyljwcjBW3ELOaTKXh yJ31Xg9vgFezYOXx fUOJrX9cjzepj5jbftrr ThVaPQUtSOy7QCm8GHZw zGahHsImINC0JpJ9KPC9 kAPgdD0meUyxskzf vR5iR1VoYQTvhhztOs67 uT0mFuWxBhV7KWwaWgj+ I1NOBUNOAZWSNYscNXYJ QRAMUX45AF96jKIm j8R2fRC3M7VpJJWktuvx ndxdzIG2EPJlBDLttE28 sIXzHPezNc4lx3B2s218 WLWrMGVsaI85Pj4j xMhuRRYeaRFSbF8fagbx e8yvwdetZmHsRATgHYz1 NCc4RHDuyZlqYuPjKML0 XpZ3KQK4tMQhqJ1r sQjniaydfZ3yPda+MDEv TCDqUBs9YvkjrAQ+PHRk DXZ2rJhyAOrmSXZceC1v FUNeR0u3IwLaRpX0 ACrvJ1EeWJMvitxgCi99 hF4iYjJjJhO7MPomW2Nb mcV5RWAdvIFlRXoxCMS4 Y55nl5X5CKVwJDLj CTL7fJV7bP7fnJycoibm bGVmdDsgdmVydGljYWwt DFzpD798CICssKayDvhe PSbdMEZxFL67XY12 tKTth2Y3hYD9H9BwLVWl afbrzzanrOL8PGVaPSTv pM37aGNdJIbiSr3dj1I3 f825NQBsABDlkW39 Gn6heMjtVKJhzWXLaW0w rwvob8sydzrgBbZdPTOv NJp0LUt1OHZckUsqNlAr TGR0RkK6CMW3jMLd jH5qzPualqzgdU2yMxu+ TUFMRTwvdGQ+PHRkIHN0 sVtvZUgxMEWboD9oSFYe E6o7RtScZzE6HAzd X0TlHXJygrhyGs44eC2j VlHaIxI3FBmuT8RkhyT9 YTIgfQZxOIjeKGU4P28k w1H2AVRoRWQpGLZ8 iIG6cV7uvTtdsjnvnAGc dDsgdmVydGljYWwtYWxp S223KZYtaGbfPw9UFF16 ER86C5FkRaylvZVc bGU+PHRhYmxlIHdpZHRo UInoCFMySlLsaGcvZX5d Yn2pFDJxXPQbuAvboOJz QqKuk9gzMKOmCXgp TH9cfGzdU6NqhUY9SBLs t8g6Jv77G34sJ9RblMD+ KZXmuGN3uWX3bL9iZvWs OgP7CHhrW111BhLo oUXsWizbv2gvg2nrvGa5 IjMwJSIgdmFsaWduPSJ0 p8NoFo75H37fJCdhZJYf PSIyMCUiIHZhbGln ts4quL2lEe1+PGNvbCB3 jSW0lR9nBlHfHjP1UPqi H683PaXysCMyQaagR87d G1XkeAP+PHRyPjx0 VNMhhTzrCC6dcKHiTRqm Lf3oDNO6CuGcDeDtUIma W5FfGCIpjlxjzxogzRJ7 FXWcHJGavQ01Ah8j sSokTi2jPKVhGVQ2GUSu oEFqC9UkmR6uWfWfJQTz ZTYhO0WlxOUnWRgwH487 FYgyXdD5XZJxgoCt C8PbNANkdBudRqM6d4S0 Tl8OlXtduTUkIM3cHrIy HLd3B9VmKqz0MEJqpErz SI3piNAhNJzaYg9o tOfyoIrdPH3oKRVietrr k722XsLrp8ejYPSwrYNd GBxiEJV3H57rf4I1GWSn EAOxKLB9gZA2hF9b bGlnbjogbGVmdDsgdmVy vVipKFuhGDgkY682DWQb nZffLwDDYze1A0IwYub8 WMCweOmlPO0ktBHq CUmdGl6xpGxtwWqmEY6f FEXwldxll663KrYmq0ii OEJugWQbWHqxLCK3Q21m l8J3VRSuQZYrPVF0 gNK5bS4eiMvfsmtwgRBi dDsgdmVydGljYWwtYWxp D943GBXavTsiMf0AQsi6 B0LnWfo1ESRaqDaj HU0kxEBnTBkdBv2hmVha wPjgCA3wBDSocpfiz575 AqAft3zzRCGahNDsHNik TXI7N28xp3Y9EGYh QSQoLHH7zXX7tY5zpYoz bjogbGVmdDsgdmVydGlj QTopULxuL697PWMzuVqp PlBheWVyOjwvdGQ+ DA34gf40Q5WyPpkuPoj4 PIZpBCC2uYF8qU8aTZBt NFrck0Y4wAG0Z6DjfsCt wb9ol2hyBHUyMSos Y29 (more content not included)... [facility] Outside Recordson 09-27-2023 Outside Records [id number] #1.00OTGTIFF [facility] Office/Clinic Noteon 024 Office/Clinic Note Patient: RICHARD BOYKIN Age: 83 years Sex: MALE : 1940 Associated Diagnoses: Type 2 diabetes mellitus; HTN (hypertension); Hyperlipidemia; Acquired hypothyroidism Author: Marj Sorensen MD A History of Present Illness 83-year-old male who recently returned back from [place] over the winter presents today for checkup. He is a type II diabetic. His A1c has been elevated he is insulin-dependent. He has significant peripheral neuropathy and while in [place] and now back home he has been [...] his granddaughter. Review of Systems Constitutional: Negative. Ear/Nose/Mouth/Throa t: Negative. Respiratory: Negative. Cardiovascular: Negative. Gastrointestinal: Negative. [...] tab(s), PO, D (more content not included)... [facility] Outside Recordson 09-22-2023 Outside Records [id number] [facility] Outside Records [id number] [facility]-2023 Follow-up visit [id number] WayneRichard Dugan 1940 M [facility] Provider Department Center 03/03/2023 [id number] NERI KEERTHI Grewal Family History Problem Relation Age of Onset Stroke Mother Valvular heart disease Father Family Status - Relation Status Age at Mother Father Level of Service:00726 [place] OFFICE/OUTPATIENT ESTABLISHED MOD MDM 30-39 MIN [facility] Office Visiton 02-16-2023 Follow-up visit [id number] WayneRichard Dugan 1940 M Date Provider Department Center 02/16/2023 3848-MADELYN LORENZO KEERTHI Grewal Family History Problem Relation Age of Onset Stroke Mother Valvular heart disease Father Family Status - Relation Status Age at Mother Father Level of Service:88868 [place] OFFICE/OUTPATIENT ESTABLISHED MOD MDM 30-39 MIN [facility] Office Visiton 10-21-2022 Follow-up visit [id number] Juan JoségeorgiRichard Dugan 1940 M Date Provider Department Center 10/21/2022 Opal-DOTTIE GIRARD KEERTHI [facility] Family History Problem Relation Age of Onset Stroke Mother Valvular heart disease Father Family Status - Relation Status Age at Mother Father Level of Service:34761 [place] OFFICE/OUTPATIENT ESTABLISHED MOD MDM 30-39 MIN Reason for Visit and Comments: Atrial Fibrillation [80] Congestive Heart Failure [127] Valve Disorder [3372] Hypertension [538898] Normal [facility] BNPon 03-26-2022 Natriuretic peptide B (Bld) [Mass/Vol] 629.0 pg/mL Normal <=1,800.0 [facility] Comment on above: Performed By: #### B MP, TSH, BNP, LIPID #### [facility] [address] [address] [address] Aaron Ling LIPID PROFILEon 03-26-2022 CHOL-HDL RATIO NORM SEE BELOW Normal [facility] Comment on above: Result Comment: 3.3 - 4.4 LOW RISK 4.4 - 7.1 AVERAGE RISK 7.1 - 11.0 MODERATE RISK >11.0 HIGH RISK Performed By: #### B MP, TSH, BNP, LIPID #### [facility] [address] [place] [address] Dr. Aaron Ling Cholesterol [Mass/Vol] 212 mg/dL Critically high <=200 [facility] Comment on above: Performed By: #### B MP, TSH, BNP, LIPID #### [facility] [address] [address] [address] Aaron Ling Cholesterol in HDL [Mass/Vol] 86 mg/dL Critically high 40-60 [facility] Comment on above: Performed By: #### B MP, TSH, BNP, LIPID #### [facility] [address] [place] [address] Dr. Aaron Ling Cholesterol in LDL [Mass/Vol] 98.4 mg/dL Normal [facility] Comment on above: Performed By: #### B MP, TSH, BNP, LIPID #### [facility] [address] [address] [address] Aaron Ling Cholesterol.total/Chol esterol in HDL [Mass ratio] 2.5 {ratio} Normal [facility] Comment on above: Performed By: #### B MP, TSH, BNP, LIPID #### [facility] [address] [place] [address] Dr. Aaron Ling HDL NORMAL > or = 60 mg/dl - LOW CARDIOVASCULAR RISK <40 mg/dl - HIGH CARDIOVASCULAR RISK Normal [facility] Comment on above: Performed By: #### B MP, TSH, BNP, LIPID #### [facility] [address] [address] [address] Aaron Ling LDL CALC NORMAL SEE BELOW Normal [facility] Comment on above: Result Comment: <100 mg/dl OPTIMAL 100 - 129 mg/dl NEAR OR ABOVE OPTIMAL 130 - 159 mg/dl BORDERLINE HIGH 160 - 189 mg/dl HIGH >190 mg/dl VERY HIGH Performed By: #### B MP, TSH, BNP, LIPID #### [facility] [address] [address] [address] Aaron Ling Triglyceride [Mass/Vol] 138 mg/dL Normal <=150 [facility] Comment on above: Performed By: #### B MP, TSH, BNP, LIPID #### [facility] [address] [address] [address] Aaron Ling VLDL CALC 27.6 mg/dL Normal [facility] Comment on above: Performed By: #### B MP, TSH, BNP, LIPID #### [facility] [address] [address] [address] Aaron Ling PROF CHEM 8 (BAS METB)on Anion gap [Moles/Vol] 7.4 mmol/L Normal [facility] Comment on above: Performed By: #### B MP, TSH, BNP, LIPID #### [facility] [address] [place] [address] Dr. Aaron Ling Calcium [Mass/Vol] 9.6 mg/dL Normal 8.5-10.1 [facility] Comment on above: Performed By: #### B MP, TSH, BNP, LIPID #### [facility] [address] [address] [address] Aaron Ling Chloride [Moles/Vol] 94 mmol/L Critically low 98-107 [facility] Comment on above: Performed By: #### B MP, TSH, BNP, LIPID #### [facility] [address] [place] [address] Dr. Aaron Ling CO2 [Moles/Vol] 36.2 mmol/L Critically high 21.0-32.0 [facility] Comment on above: Performed By: #### B MP, TSH, BNP, LIPID #### [facility] [address] [place] [address] Dr. Aaron Ling Creatinine [Mass/Vol] 2.27 mg/dL Critically high 0.70-1.30 [facility] Comment on above: Performed By: #### B MP, TSH, BNP, LIPID #### [facility] [address] [place] [address] Dr. Aaron Ling EGFR-AF MALDIVIAN 34 mL/min/1.73m2 Critically low >=60 [facility] Comment on above: Performed By: #### B MP, TSH, BNP, LIPID #### [facility] [address] [place] [address] Dr. Aaron Ling EGFR-NON AF MALDIVIAN 28 mL/min/1.73m2 Critically low >=60 [facility] Comment on above: Performed By: #### B MP, TSH, BNP, LIPID #### [facility] [address] [place] [address] Dr. Aaron Ling Glucose [Mass/Vol] 214 mg/dL Critically high 74-106 T [facility] Comment on above: Performed By: #### B MP, TSH, BNP, LIPID #### [facility] [address] [place] [address] Dr. Aaron Ling Potassium [Moles/Vol] 3.6 mmol/L Normal 3.5-5.1 [facility] Comment on above: Performed By: #### B MP, TSH, BNP, LIPID #### [facility] [address] [place] [address] Dr. Aaron Ling Sodium [Moles/Vol] 134 mmol/L Critically low 136-145 Th [facility] Comment on above: Performed By: #### B MP, TSH, BNP, LIPID #### [facility] [address] [place] [address] Dr. Aaron Ling Urea nitrogen [Mass/Vol] 48.0 mg/dL Critically high 7.0-18.0 [facility] Comment on above: Performed By: #### B MP, TSH, BNP, LIPID #### [facility] [address] [place], [place] [id number] Dr. Aaron Ling Urea nitrogen/Creatinine [Mass ratio] 21.1 mg/mg Normal [facility] Comment on above: Performed By: #### B MP, TSH, BNP, LIPID #### [facility] [address] [address] [address] Aaron Ling TSHon 03-26-2022 TSH 2.606 uIU/mL Normal 0.358-3.740 [facility] Comment on above: Performed By: #### B MP, TSH, BNP, LIPID #### [facility] [address] [address] [address] Aaron Ling B-Type Natriuretic Peptideon 01-19-2022 Natriuretic peptide B (Bld) [Mass/Vol] 749.0 pg/mL High 5-100 [facility] Comment on above: Order Comment: Result Comment: PERF ORMED BY: [place] [address] PATHOLOGIST [employer]ARPL[employer] MACHINE OPERATOR SERVANDO AKERS M.D. Performed By: #### B MP, LIPID, TSH3, BNP #### [facility] [address] [place] [address] Basic Metabolic Panelon 08 Calcium [Mass/Vol] 8.5 mg/dL Normal 8.2-10.2 [facility] Comment on above: Order Comment: Performed By: #### B MP, LIPID, TSH3, BNP #### [facility] [address] [place] [address] [place] Chloride [Moles/Vol] 103 mmol/L Normal 95-114 [facility] Comment on above: Order Comment: Performed By: #### B MP, LIPID, TSH3, BNP #### [facility] [address] [place] [address] [place] CO2 [Moles/Vol] 31.5 mmol/L High 22.0-30.0 [facility] Comment on above: Order Comment: Performed By: #### B MP, LIPID, TSH3, BNP #### [facility] [address] [place] [address] [place] Creatinine [Mass/Vol] 2.03 mg/dL High 0.64-1.27 [facility] Comment on above: Order Comment: Performed By: #### B MP, LIPID, TSH3, BNP #### [facility] [address] [id number] [place] Estimated GFR ( Ava 38 [facility] Comment on above: Order Comment: Result Comment: GFR estimated reference range: According to KDOQI guidelines, <60 ml/min/1.73m2 is sufficient to diagnose a patient with chronic kidney disease. Performed By: #### B MP, LIPID, TSH3, BNP #### [facility] [address] [id number] [place] Estimated GFR (Non- Am 32 [facility] Comment on above: Order Comment: Performed By: #### B MP, LIPID, TSH3, BNP #### [facility] [address] [id number] [place] Glucose [Mass/Vol] 99 mg/dL Normal 70-100 [facility] Comment on above: Order Comment: Result Comment: [place] om Glucose Reference Range is dependent on time and content of last meal. Glucose of more than 200 mg/dL in a nonstressed, ambulatory subject supports the diagnosis of Diabetes Mellitus. ADA recommended reference range Performed By: #### B MP, LIPID, TSH3, BNP #### [facility] [address] [id number] [place] Potassium [Moles/Vol] 4.9 mmol/L Normal 3.5-5.1 [facility] Comment on above: Order Comment: Performed By: #### B MP, LIPID, TSH3, BNP #### [facility] [address] [place] [address] [place] Sodium [Moles/Vol] 142 mmol/L Normal 136-146 [facility] Comment on above: Order Comment: [phone] Performed By: #### B MP, LIPID, TSH3, BNP #### [facility] [address] [place] [address] [place] Urea nitrogen [Mass/Vol] 50 mg/dL High 9- [facility] Comment on above: Order Comment: [phone] Performed By: #### B MP, LIPID, TSH3, BNP #### [facility] [address] Cholesterol [Mass/volume] in Serum or PlasmaOrdered By: Sweetie Tomlinson on 01-19-2022 Cholesterol [Mass/Vol] 259 mg/dL 140-200 [facility] Comment on above: Chol less than 200 m g/dl low risk Chol 201-239 mg/dl borderline risk Chol 240 mg/dl and greater high risk Cholesterol in LDL Calc [Mas s/Vol]Ordered By: Sweetie Tomlinson on 01-19-2022 Cholesterol in LDL [Mass/Vol] 142 mg/dL 0-100 [facility] Comment on above: LDL ATP III CLASSIFI CATION LDL less than 100 mg/dL Optimal LDL 100-129 mg/dL Near or above optimal LDL 130-159 mg/dL Borderline high LDL 160-189 mg/dL High LDL greater than 189 mg/dL Very high Cholesterol in VLDL Calc [Ma ss/Vol]Ordered By: Sweetie Tomlinson on 01-19-2022 Cholesterol in VLDL [Mass/Vol] 12 mg/dL [facility] Creatinine and Glomerular fi ltration rate.predicted panel (S/P/Bld)Ordered By: Sweetie Tomlinson on 01-19-2022 Creatinine [Mass/Vol] 2.03 mg/dL 0.64-1.27 [facility] Estimated glomerular filtrat ion rate (GFR) non- AmericanOrdered By: Sweetie Tomlinson on 01-19-2022 GFR/1.73 sq M.predicted among non-blacks MDRD (S/P/Bld) [Vol rate/Area] 32 mL/Min [facility] - Chemistry and C hemistry - challengeOrdered By: Sweetie Tomlinson on 01-19-2022 Natriuretic peptide B (Bld) [Mass/Vol] 749.0 pg/mL 5-100 [facility] Lipid Panelon 01-19-2022 Cholesterol [Mass/Vol] 259 mg/dL High 140-200 [facility] Comment on above: Order Comment: [phone] Result Comment: Chol less than 200 mg/dl low risk Chol 201-239 mg/dl borderline risk Chol 240 mg/dl and greater high risk Performed By: #### B MP, LIPID, TSH3, BNP #### [facility] [address] [id number] [facility] Cholesterol in HDL [Mass/Vol] 105 mg/dL High 29-71 [facility] Comment on above: Order Comment: [phone] Result Comment: HDL CHOL ATP-III CLASSIFICATION Cardiovascular Risk HDL > or equal to 60 mg/dL LOW HDL < 40 mg/dL HIGH Performed By: #### B MP, LIPID, TSH3, BNP #### [facility] [address] Cholesterol.total/Chol esterol in HDL [Mass ratio] 2.5 {ratio} Normal <5.0 [facility] Comment on above: Order Comment: [phone] Performed By: #### B MP, LIPID, TSH3, BNP #### [facility] [address] [place] [id number] [facility] LDL Cholesterol,Calculated 142 mg/dL High 0-100 [facility] Comment on above: Order Comment: [phone] Result Comment: LDL ATP III CLASSIFICATION LDL less than 100 mg/dL Optimal LDL 100-129 mg/dL Near or above optimal LDL 130-159 mg/dL Borderline high LDL 160-189 mg/dL High LDL greater than 189 mg/dL Very high Performed By: #### B MP, LIPID, TSH3, BNP #### [facility] [address] [place] [id number] [place] Triglyceride w/Reflex 60 mg/dL Normal 35-149 [facility] Comment on above: Order Comment: [phone] Result Comment: TRIG ATP III CLASSIFICATION TRIG less than 150 mg/dL Normal TRIG 150-199 mg/dL Borderline high TRIG 200-500 mg/dL High TRIG greater than 500 mg/dL Very high Standard traceable to the Center for Disease Conrtrol and Prevention (CDC) test method. Performed By: #### B MP, LIPID, TSH3, BNP #### [facility] [address] [place] [id number] [facility] VLDL CHOLESTEROL 12 mg/dL Normal [facility] Comment on above: Order Comment: 1- [phone] Performed By: #### B MP, LIPID, TSH3, BNP #### [facility] [address] No Panel InformationOrdered By: Sweetie Tomlinson on 01-19-2022 Estimated GFR () 38 mL/Min [facility] Comment on above: GFR estimated refere nce range: According to KDOQI guidelines, <60 ml/min/1.73m2 is sufficient to diagnose a patient with chronic kidney disease. Pharmacy Creatinine Clearance (Chem N/A [facility] Serum or plasma calcium shelbi urement (mass/volume)Ordered By: Sweetie Tomlinson on 01-19-2022 Calcium [Mass/Vol] 8.5 mg/dL 8.2-10.2 [facility] Serum or plasma chloride alex surement (moles/volume)Ordered By: Sweetie Tomlinson on 01-19-2022 Chloride [Moles/Vol] 103 mmol/L 95-114 [facility] Serum or plasma glucose shelbi urement (mass/volume)Ordered By: Sweetie Tomlinson on 01-19-2022 Glucose [Mass/Vol] 99 mg/dL 70-100 [facility] Comment on above: ADA recommended refe rence range Random Glucose Reference Range is dependent on time and content of last meal. Glucose of more than 200 mg/dL in a nonstressed, ambulatory subject supports the diagnosis of Diabetes Mellitus. Serum or plasma high density lipoprotein (HDL) cholesterol measurementOrdered By: Sweetie Tomlinson on 01-19-2022 Cholesterol in HDL [Mass/Vol] 105 mg/dL 29-71 [facility] Comment on above: HDL CHOL ATP-III CLA SSIFICATION Cardiovascular Risk HDL > or equal to 60 mg/dL LOW HDL < 40 mg/dL HIGH Serum or plasma potassium me asurement (moles/volume)Ordered By: Sweetie Tomlinson on 01-19-2022 Potassium [Moles/Vol] 4.9 mmol/L 3.5-5.1 [facility] Serum or plasma sodium measu rement (moles/volume)Ordered By: Sweetie Tomlinson on 01-19-2022 Sodium [Moles/Vol] 142 mmol/L 136-146 [facility] Serum or plasma total carbon dioxide measurement (moles/volume)Ordered By: Sweetie Tomlinson on 01-19-2022 CO2 [Moles/Vol] 31.5 mmol/L 22.0-30.0 [facility] Serum or plasma total choles terol/high density lipoprotein (HDL) cholesterol mass ratOrdered By: Sweetie Tomlinson on 01-19-2022 Cholesterol.total/Chol esterol in HDL [Mass ratio] 2.5 {ratio} <5.0 [facility] Serum or plasma urea nitroge n measurement (mass/volume)Ordered By: Sweetie Tomlinson on 01-19-2022 Urea nitrogen [Mass/Vol] 50 mg/dL 9-23 [facility] TSH DL <= 0.005 mIU/L QnOrde red By: Sweetie Tomlinson on 01-19-2022 TSH Qn 11.52 m[IU]/L 0.45-5.33 [facility] Thyroid Stimulating Hormoneo n 01-19-2022 TSH Qn 11.52 m[IU]/L High 0.45-5.33 [facility] Comment on above: Order Comment: 1- [phone] Result Comment: PERF ORMED BY: [place] [address] PATHOLOGIST SHARPLES MACHINE OPERATOR SERVANDO AKERS M.D. Performed By: #### B MP, LIPID, TSH3, BNP #### [address] Triglyceride [Mass/volume] i n Serum or PlasmaOrdered By: Sweetie Tomlinson on 01-19-2022 Triglyceride [Mass/Vol] 60 mg/dL 35-149 [facility] Comment on above: TRIG ATP III CLASSIF ICATION TRIG less than 150 mg/dL Normal TRIG 150-199 mg/dL Borderline high TRIG 200-500 mg/dL High TRIG greater than 500 mg/dL Very high Standard traceable to the Center for Disease Conrtrol and Prevention (CDC) test method. BNPon 12-21-2021 Natriuretic peptide B (Bld) [Mass/Vol] 2048.0 pg/mL Critically high <=1,800.0 [facility] Comment on above: Performed By: #### B MP, BNP #### [facility] [address] [address] [address] Aaron Ling PROF CHEM 8 (BAS METB)on Anion gap [Moles/Vol] 11.1 mmol/L Normal [facility] Comment on above: Performed By: #### B MP, BNP #### [facility] [address] [place] [address] [address] Aaron Ling Calcium [Mass/Vol] 8.7 mg/dL Normal 8.5-10.1 [facility] Comment on above: Performed By: #### B MP, BNP #### [facility] [address] [place] [address] [address] Aaron Ling Chloride [Moles/Vol] 106 mmol/L Normal 98-107 [facility] Comment on above: Performed By: #### B MP, BNP #### [facility] [address] [place] [address] [address] Aaron Ling CO2 [Moles/Vol] 30.9 mmol/L Normal 21.0-32.0 [facility] Comment on above: Performed By: #### B MP, BNP #### [facility] [address] [place] [address] [address] Aaron Ling Creatinine [Mass/Vol] 2.07 mg/dL Critically high 0.70-1.30 [facility] Comment on above: Performed By: #### B MP, BNP #### [facility] [address] [place] [address] [address] Aaron Ling EGFR-AF MALDIVIAN 38 mL/min/1.73m2 Critically low >=60 [facility] Comment on above: Performed By: #### B MP, BNP #### [facility] [address] [place] [address] [address] Aaron Ling EGFR-NON AF MALDIVIAN 31 mL/min/1.73m2 Critically low >=60 [facility] Comment on above: Performed By: #### B MP, BNP #### [facility] [address] [place] [address] [address] Aaron Ling Glucose [Mass/Vol] 138 mg/dL Critically high 74-106 [facility] Comment on above: Performed By: #### B MP, BNP #### [facility] [address] [place] [address] [address] Aaron Ling Potassium [Moles/Vol] 5.0 mmol/L Normal 3.5-5.1 [facility] Comment on above: Performed By: #### B MP, BNP #### [facility] [address] [place] [address] [address] Aaron Ling Sodium [Moles/Vol] 143 mmol/L Normal 136-145 [facility] Comment on above: Performed By: #### B MP, BNP #### [facility] [address] [place] [address] [address] Aaron Ling Urea nitrogen [Mass/Vol] 43.0 mg/dL Critically high 7.0-18.0 [facility] Comment on above: Performed By: #### B MP, BNP #### [facility] [address] [place] [address] [address] Aaron Ling Urea nitrogen/Creatinine [Mass ratio] 20.8 mg/mg Normal [facility] Comment on above: Performed By: #### B MP, BNP #### [facility] [address] [place] [address] [address] Aaron Ling XR shoulder RT min 2V*on XR shoulder RT min 2V* [facility] [place] [address] [place] [address] XRay Report Signed Patient: Richard Boykin MR#: [id number] : 1940 Acct:[id number] Age/Sex: 81 / M ADM Date: 12/02/21 Loc: SOXD Room: Type: [facility] Attending Dr: Teofilo Person MD Copies to: [...] Rosado Jr., M.D.12/02/2021 1:52 PM Dictation Location: [place] [address] Transcribed By: [facility] 12/02/21 1352 Dictated By: Cyrus Rosado Jr, MD 12/02/21 1351 Signed By: 12/02/21 1352 [facility] BASIC METABOLIC PANEL 05- Calcium [Mass/Vol] 8.7 mg/dL Normal 8.6-10.3 [facility] Comment on above: Order Comment: No: D o not add to previous draw Performed By: #### 5 0608, 14485 #### [facility] [address] [facility] [place] [address], [facility] Chloride [Moles/Vol] 98 mmol/L Normal 98-107 [facility] Comment on above: Order Comment: No: D o not add to previous draw Performed By: #### 5 0608, 37129 #### [facility] [address] [place] [address], [place] CO2 [Moles/Vol] 29 mmol/L Normal 21-31 [facility] Comment on above: Order Comment: No: D o not add to previous draw Performed By: #### 5 06, 19474 #### [facility] [address] [place] [address], [place] Creatinine [Mass/Vol] 1.00 mg/dL Normal 0.70-1.30 [facility] Comment on above: Order Comment: No: D o not add to previous draw Performed By: #### 5 06, 90907 #### [facility] [address] [place] [address], [place] GFR/1.73 sq M.predicted among blacks MDRD (S/P/Bld) [Vol rate/Area] mL/min/{1.73_m2} Normal >60 [facility] Comment on above: Order Comment: No: D o not add to previous draw Result Comment: Calc ulation may not be valid for patients over 70 years Performed By: #### 5 06, 58826 #### [facility] [address] [place] [address], [place] GFR/1.73 sq M.predicted among non-blacks MDRD (S/P/Bld) [Vol rate/Area] mL/min/{1.73_m2} Normal >60 [facility] Comment on above: Order Comment: No: D o not add to previous draw Result Comment: Calc ulation may not be valid for patients over 70 years Performed By: #### 5 06, 92014 #### [facility] [address] [place] [address], [place] Glucose [Mass/Vol] 288 mg/dL High 70-100 [facility] Comment on above: Order Comment: No: D o not add to previous draw Performed By: #### 5 0608, 37358 #### [facility] [address] [place] [address], [place] Potassium [Moles/Vol] 4.7 mmol/L Normal 3.5-5.1 [facility] Comment on above: Order Comment: No: D o not add to previous draw Performed By: #### 5 607, 78466 #### [facility] [address] [place] [address], [facility] Sodium [Moles/Vol] 135 mmol/L Low 136-145 [facility] Comment on above: Order Comment: No: D o not add to previous draw Performed By: #### 5 607, 58738 #### [facility] [address] [place] [address], [facility] Urea nitrogen [Mass/Vol] 28 mg/dL High 7-25 [facility] Comment on above: Order Comment: No: D o not add to previous draw Performed By: #### 5 607, 86110 #### [facility] [address] [place] [address], [facility] CBC COMPLETE BLOOD COUNTon - Erythrocyte distribution width (RBC) [Ratio] 14.3 % Normal 11.5-15.0 [facility] Comment on above: Order Comment: No: D o not add to previous draw Performed By: #### 5 607, 43994 #### [facility] [address] [place] [address], [facility] Hematocrit (Bld) [Volume fraction] 42.0 % Normal 39.0-50.0 [facility] Comment on above: Order Comment: No: D o not add to previous draw Performed By: #### 5 607, 88709 #### [facility] [address] [place] [id number], [facility] Hemoglobin (Bld) [Mass/Vol] 13.7 g/dL Normal 13.0-17.0 [facility] Comment on above: Order Comment: No: D o not add to previous draw Performed By: #### 5 607, 96479 #### [facility] [address] [place] [id number], [facility] MCH (RBC) [Entitic mass] 31.5 pg Normal 27.0-33.0 [facility] Comment on above: Order Comment: No: D o not add to previous draw Performed By: #### 5 06, 36019 #### [facility] [address] [place] [address], [facility] MCHC (RBC) [Mass/Vol] 32.6 g/dL Normal 32.0-35.0 [facility] Comment on above: Order Comment: No: D o not add to previous draw Performed By: #### 5 607, 19601 #### [facility] [address] [place] [id number], [facility] MCV (RBC) [Entitic vol] 96.6 fL Normal 82.0-98.0 [facility] Comment on above: Order Comment: No: D o not add to previous draw Performed By: #### 5 607, 84080 #### [facility] [address] [place] [address], [facility] Nucleated RBC/100 WBC (Bld) [Ratio] 0 % Normal 0-0 [facility] Comment on above: Order Comment: No: D o not add to previous draw Performed By: #### 5 607, 31377 #### [facility] [address] [facility] [place] [address], [facility] PLAT CNT 298 10*3/uL Normal 150-400 [facility] Comment on above: Order Comment: No: D o not add to previous draw Performed By: #### 5 607, 84806 #### [facility] [address] [place] [id number], [facility] RBC (Bld) [#/Vol] 4.35 10*6/uL Normal 4.20-5.70 [facility] Comment on above: Order Comment: No: D o not add to previous draw Performed By: #### 5 06, 86226 #### [facility] [address] [place] [id number], [place] WBC (Bld) [#/Vol] 10.30 10*3/uL Normal 4.00-10.60 [facility] Comment on above: Order Comment: No: D o not add to previous draw Performed By: #### 5 0608, 08507 #### [facility] [address] [place] [address], [facility] MAGNESIUM BLOODon 11-02-2021 Magnesium [Mass/Vol] 2.0 mg/dL Normal 1.9-2.7 [facility] Comment on above: Order Comment: No: D o not add to previous draw Performed By: #### 5 0608, 36658 #### [facility] [address] [place] [address], [facility] POC GLUCOSE LABon 11-02-2021 Glucose [Mass/Vol] 296 mg/dL High 70-100 [facility] Comment on above: Performed By: #### 5 7307, 79211 #### [facility] [address] [place] [address], [facility] Glucose [Mass/Vol] 262 mg/dL High 70-100 [facility] Comment on above: Performed By: #### 5 7307, 79809 #### [facility] [address] [place] [address], [facility] PORTABLE CHEST 1 VIEWon 10-17 PORTABLE CHEST 1 VIEW [facility] Radiology [address] [place] [id number] Patient Name: RICHARD BOYKIN : 1940 Sex: M Age: Race: NA Pt. Location: [id number] Patient Status: I Ordered Date: 11/02/2021 12:05:00 PM Completed Date: 11/02/2021 12:26 PM Requesting Provider: ALICIA SWEET Attending Provider: ALICIA SWEET Report Copy To: Signs & Symptoms: Central Line Placement History: Comments: Check Line Position, right arm picc Exam: PORTABLE CHEST 1 VIEW PORTABLE CHEST 1 VIEW 11/02/2021 12:26 PM [...] effusions. Electronically signed: Guilherme Abarca. Transcribed by: [email or web address], User Resident: Electronically Signed by: GUILHERME ABARCA @ 11/02/2021 12:49 PM Normal [facility] Comment on above: Order Comment: Check Line Position, right arm picc *ANAEROBIC CULTUREon 022 *ANAEROBIC CULTURE Clinical Report: (D) Specimen: FLUID Collected: 11/01/2021 15:30 Status: Final Last Updated: 11/06/2021 07:46 (1) RT SC JOINT CULT RES (Final) No Anaerobes Isolated 5 Days Normal [facility] Comment on above: Order Comment: Check Line Position, right arm picc Performed By: #### 3 0312 ####[place] [address] [address] *ANAEROBIC CULTURE Clinical Report: (D) Specimen: TISSUE Collected: 11/01/2021 15:10 Status: Final Last Updated: 11/06/2021 07:46 (1) RT SC JOINT CULT RES (Final) No Anaerobes Isolated 5 Days Normal [facility] Comment on above: Order Comment: Check Line Position, right arm picc Performed By: #### 3 0312 ####[facility] [address] *BODY FLUID CULTUREon 2021 *BODY FLUID CULTURE Clinical Report: (D) Specimen: FLUID Collected: 11/01/2021 15:30 Status: Final Last Updated: 11/06/2021 06:31 (1) RT SC JOINT GRAM (Final) Quantity Not Sufficient CULT RES (Final) No Growth Day 5 Normal [facility] Comment on above: Order Comment: RT SC JOINT Performed By: #### 5 0608, 94876 #### [facility] [address] *FUNGAL CULTUREon 11-01-2021 *FUNGAL CULTURE Clinical Report: (D) Specimen: TISSUE Collected: 11/01/2021 15:10 Status: Final Last Updated: 12/03/2021 07:55 (1) RT SC JOINT FS (Final) No Yeast or Fungal Elements Seen CULT RES (Final) Culture negative for fungus Normal [facility] Comment on above: Order Comment: Check Line Position, right arm picc Performed By: #### 3 0323 ####[facility] [address] *TISSUE CULTUREon 11-01-2021 *TISSUE CULTURE Clinical Report: (D) Specimen: TISSUE Collected: 11/01/2021 15:10 Status: Final Last Updated: 11/06/2021 06:37 (1) RT SC JOINT GRAM (Final) Moderate Polys No Bacteria Seen CULT RES (Final) No Growth Day 5 Normal [facility] Comment on above: Order Comment: Check Line Position, right arm picc Performed By: #### 3 0338 ####[facility] [address] BIOPSY ARM/WRIST SOFT TIS KIMBERLEY Streeter 11-01-2021 CT BIOPSY ARM/WRIST SOFT TISSUE RIGHT [facility] of Radiology [address] [place] [phone] Patient Name: RICHARD BOYKIN : 1940 Sex: M Age: Race: NA Pt. Location: [id number] Patient Status: D Ordered Date: 11/01/2021 8:00:00 [...] Exam: CT BIOPSY ARM/WRIST SOFT TISSUE RIGHT CT BIOPSY ARM/WRIST SOFT TISSUE RIGHT 11/01/2021 [...] risks are acceptable. Consent was obtained. Timeout: [place] protocol timeout verification performed. MEDICATIONS: 1 mg [...] of the right SC joint. Approved by:Jeremias Pintosigo11/02/2021 7:39 AM. I, Tara Hall,have reviewed the image(s) and agree with the findings in this report. Electronically signed: Tara Hall. 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 Will order aspiraton of the proximal RIGHT sternoclavicular joint seperately POC GLUCOSE LABon 11-01-2021 Glucose [Mass/Vol] 326 mg/dL High 70-100 [facility] Comment on above: Performed By: #### 5 7307, 44124 #### [facility] [address] [place] [address], [place] Glucose [Mass/Vol] 245 mg/dL High 70-100 [facility] Comment on above: Performed By: #### 5 7307, 31062 #### [facility] [address] [place] [address], [place] Glucose [Mass/Vol] 299 mg/dL High 70-100 [facility] Comment on above: Performed By: #### 5 7307, 77067 #### [facility] [address] [place] [address], [place] Glucose [Mass/Vol] 227 mg/dL High 70-100 [facility] Comment on above: Performed By: #### 5 7307, 42370 #### [facility] [address] [place] [address], [place] POC SARS COV2 IDon 2 SARS-CoV-2 (COVID-19) RNA KIKO+probe Ql (Unsp spec) Negative Normal NEGATIVE [facility] Comment on above: Result Comment: ID [...] of Accreditation. Performed By: #### 5 0608, 72139 #### [facility] [address] [place] [address], [facility] POC GLUCOSE LABon 10-31-2021 Glucose [Mass/Vol] 236 mg/dL High 70-100 [facility] Comment on above: Performed By: #### 5 7307, 44016 #### [facility] [address] [place] [address], [facility] Glucose [Mass/Vol] 274 mg/dL High 70-100 [facility] Comment on above: Performed By: #### 5 7307, 79077 #### [facility] [address] [facility] [place] [id number], [facility] Glucose [Mass/Vol] 317 mg/dL High 70-100 [facility] Comment on above: Performed By: #### 5 7307, 22733 #### [facility] [address] [facility] [place] [id number], [facility] Glucose [Mass/Vol] 225 mg/dL High 70-100 [facility] Comment on above: Performed By: #### 5 7307, 74834 #### [facility] [address] [facility] [place] [id number], [facility] *BLOOD CULTUREon 10-30-2021 *BLOOD CULTURE Clinical Report: (D) Specimen: BLOOD CULTURE Collected: 10/29/2021 23:08 Status: Final Last Updated: 11/04/2021 08:31 CULT RES (Final) No Growth Day 5 Normal [facility] Comment on above: Performed By: #### 5 7307, 08103 #### [facility] [address] [facility] [address] APTTon 10-30-2021 aPTT Coag (Bld) [Time] 51.2 s High 25.0-35.0 [facility] Comment on above: Order Comment: No: [...] THIS PURPOSE. Performed By: #### 5 0608, 65142 #### [facility] [address] BASIC METABOLIC PANELon 10-17 Calcium [Mass/Vol] 8.9 mg/dL Normal 8.6-10.3 [facility] Comment on above: Order Comment: No: D o not add to previous drawMissed Performed By: #### 5 0608, 18961 #### [facility] [address] [place] [address], [facility] Chloride [Moles/Vol] 99 mmol/L Normal 98-107 [facility] Comment on above: Order Comment: No: D o not add to previous drawMissed Performed By: #### 5 0608, 62538 #### [facility] [address] [place] [address], [facility] CO2 [Moles/Vol] 27 mmol/L Normal 21-31 [facility] Comment on above: Order Comment: No: D o not add to previous drawMissed Performed By: #### 5 0608, 49465 #### [facility] [address] [place] [id number], [facility] Creatinine [Mass/Vol] 1.08 mg/dL Normal 0.70-1.30 [facility] Comment on above: Order Comment: No: D o not add to previous drawMissed Performed By: #### 5 0608, 41878 #### [facility] [address] [place] [address], [place] GFR/1.73 sq M.predicted among blacks MDRD (S/P/Bld) [Vol rate/Area] mL/min/{1.73_m2} Normal >60 [facility] Comment on above: Order Comment: No: D o not add to previous drawMissed Result Comment: Calc ulation may not be valid for patients over 70 years Performed By: #### 5 0608, 08112 #### [facility] [address] [place] [address], [place] GFR/1.73 sq M.predicted among non-blacks MDRD (S/P/Bld) [Vol rate/Area] mL/min/{1.73_m2} Normal >60 [facility] Comment on above: Order Comment: No: D o not add to previous drawMissed Result Comment: Calc ulation may not be valid for patients over 70 years Performed By: #### 5 0608, 37753 #### [facility] [address] [place] [address], [place] Glucose [Mass/Vol] 257 mg/dL High 70-100 [facility] Comment on above: Order Comment: No: D o not add to previous drawMissed Performed By: #### 5 0608, 96889 #### [facility] [address] [place] [address], [place] Potassium [Moles/Vol] 4.5 mmol/L Normal 3.5-5.1 [facility] Comment on above: Order Comment: No: D o not add to previous drawMissed Performed By: #### 5 0608, 26582 #### [facility] [address] [place] [address], [place] Sodium [Moles/Vol] 135 mmol/L Low 136-145 [facility] Comment on above: Order Comment: No: D o not add to previous drawMissed Performed By: #### 5 06, 36603 #### [facility] [address] [place] [address], [facility] Urea nitrogen [Mass/Vol] 27 mg/dL High 7-25 [facility] Comment on above: Order Comment: No: D o not add to previous drawMissed Performed By: #### 5 06, 67660 #### [facility] [address] [place] [address], [facility] C REACTIVE PROTEINon 022 CRP [Mass/Vol] 278.0 mg/L High 0.0-7.0 [facility] Comment on above: Order Comment: No: D o not add to previous draw Performed By: #### 5 7307, 12596 #### [facility] [address] [place], [place] [id number] [place] [address] CBC COMPLETE BLOOD COUNTon 10-30-2021 Erythrocyte distribution width (RBC) [Ratio] 14.6 % Normal 11.5-15.0 [facility] Comment on above: Order Comment: No: D o not add to previous draw Missed Performed By: #### 5 06, 79107 #### [facility] [address] [place] [address], [facility] Hematocrit (Bld) [Volume fraction] 41.4 % Normal 39.0-50.0 [facility] Comment on above: Order Comment: No: D o not add to previous draw Missed Performed By: #### 5 06, 86191 #### [facility] [address] [place] [address], [facility] Hemoglobin (Bld) [Mass/Vol] 13.9 g/dL Normal 13.0-17.0 [facility] Comment on above: Order Comment: No: D o not add to previous draw Missed Performed By: #### 5 06, 65255 #### [facility] [address] [place] [address], [facility] MCH (RBC) [Entitic mass] 32.0 pg Normal 27.0-33.0 [facility] Comment on above: Order Comment: No: D o not add to previous draw Missed Performed By: #### 5 06, 82700 #### [facility] [address] [place] [address], [facility] MCHC (RBC) [Mass/Vol] 33.6 g/dL Normal 32.0-35.0 [facility] Comment on above: Order Comment: No: D o not add to previous draw Missed Performed By: #### 5 607, 11424 #### [facility] [address] [place] [address], [facility] MCV (RBC) [Entitic vol] 95.2 fL Normal 82.0-98.0 [facility] Comment on above: Order Comment: No: D o not add to previous draw Missed Performed By: #### 5 607, 64479 #### [facility] [address] Nucleated RBC/100 WBC (Bld) [Ratio] 0 % Normal 0-0 [facility] Comment on above: Order Comment: No: D o not add to previous draw Missed Performed By: #### 5 607, 27140 #### [facility] [address] [place] [address], [facility] PLAT CNT 211 10*3/uL Normal 150-400 [facility] Comment on above: Order Comment: No: D o not add to previous draw Missed Performed By: #### 5 607, 41872 #### [facility] [address] [place] [id number], [facility] RBC (Bld) [#/Vol] 4.35 10*6/uL Normal 4.20-5.70 [facility] Comment on above: Order Comment: No: D o not add to previous draw Missed Performed By: #### 5 607, 26789 #### [facility] [address] [place] [address], [facility] WBC (Bld) [#/Vol] 9.94 10*3/uL Normal 4.00-10.60 [facility] Comment on above: Order Comment: No: D o not add to previous draw Missed Performed By: #### 5 0608, 66857 #### [facility] [address] [place] [address], [facility] LACTATE WITH REFLEXon 2021 Lactate [Moles/Vol] 1.5 mmol/L Normal .5-2.2 [facility] Comment on above: Order Comment: No: D o not add to previous draw Performed By: #### 3 1414 #### [facility] [address] [place] [id number], [facility] MAGNESIUM BLOODon 10-30-2021 Magnesium [Mass/Vol] 2.0 mg/dL Normal 1.9-2.7 [facility] Comment on above: Order Comment: No: D o not add to previous draw Performed By: #### 5 7307, 36012 #### [facility] [address] [place] [address], [facility] PHOSPHORUS BLOODon Phosphate [Mass/Vol] 3.0 mg/dL Normal 2.5-5.0 [facility] Comment on above: Order Comment: No: D o not add to previous draw Performed By: #### 5 7307, 77946 #### [facility] [address] [place] [address], [facility] POC GLUCOSE LABon 10-30-2021 Glucose [Mass/Vol] 355 mg/dL High 70-100 [facility] Comment on above: Performed By: #### 5 7307, 20615 #### [facility] [address] [place] [address], [place] Glucose [Mass/Vol] 318 mg/dL High 70-100 [facility] Comment on above: Performed By: #### 5 7307, 90655 #### [facility] [address] [place] [address], [facility] Glucose [Mass/Vol] 244 mg/dL High 70-100 [facility] Comment on above: Performed By: #### 5 7307, 77565 #### [facility] [address] [place] [address], [facility] Glucose [Mass/Vol] 294 mg/dL High 70-100 [facility] Comment on above: Performed By: #### 5 7307, 78615 #### [facility] [address] [facility] [place] [address], [facility] PROTHROMBIN TIMEon 2 INR Coag (PPP) [Relative time] 1.09 {INR} Normal 0.91-1.16 [facility] Comment on above: Order Comment: No: D o not add to previous drawMissed Result Comment: ACCC P RECOMMENDED INR FOR WARFARIN THERAPY --------- ------- CONDITION INR PROPHYLAXIS OF VENOUS THROMBOSIS 2-3 (HIGH-RISK SURGERY) TREATMENT OF VENOUS THROMBOSIS 2-3 TREATMENT OF PULMONARY EMBOLISM 2-3 PREVENTION OF SYSTEMIC EMBOLISM: 2-3 ACUTE MYOCARDIAL INFARCTION TISSUE HEART VALVES VALVULAR HEART DISEASE ATRIAL FIBRILLATION RECURRENT SYSTEMIC EMBOLISM MECHANICAL HEART VALVE 2.5-3.5 FROM: ORAL ANTICOAGULANTS. MECHANISM OF ACTION, CLINICAL EFFECTIVENESS, AND OPTIMAL THERAPEUTIC RANGE. CHEST 1995;108:231S-246S. Performed By: #### 5 0608, 04519 #### [facility] [address] [place] [address], [facility] PT Coag (PPP) [Time] 14.1 s Normal 12.3-14.8 [facility] Comment on above: Order Comment: No: D o not add to previous drawMissed Result Comment: ALL RESULTS MUST BE INTERPRETED WITH RESPECT TO BLOOD DRAWING ARTIFACT OR DILUTION ERROR OF ANTICOAGULANT AT THE TIME OF SAMPLING. Performed By: #### 5 0608, 92075 #### [facility] [address] SEDIMENTATION RATEon 022 SED RATE 43 mm/hr High 0-10 [facility] Comment on above: Performed By: #### 5 0608, 47453 #### [facility] [address] *BLOOD CULTUREon 10-29-2021 *BLOOD CULTURE Clinical Report: (D) Specimen: BLOOD CULTURE Collected: 10/29/2021 21:05 Status: Final Last Updated: 11/04/2021 08:31 (1) LH 2051 CULT RES (Final) No Growth Day 5 Normal [facility] Comment on above: Order Comment: No: D o not add to previous draw Performed By: #### 5 7307, 81285 #### [facility] [address] *BLOOD CULTURE Clinical Report: (D) Specimen: BLOOD CULTURE Collected: 10/29/2021 21:05 Status: Final Last Updated: 11/04/2021 08:31 (1) RH 2100 CULT RES (Final) No Growth Day 5 Normal [facility] Comment on above: Order Comment: Check Line Position, right arm picc Performed By: #### 3 0313 ####[facility] APTTon 10-29-2021 aPTT Coag (Bld) [Time] 47.5 s High 25.0-35.0 [facility] Comment on above: Order Comment: No: [...] THIS PURPOSE. Performed By: #### 5 7307, 55166 #### [facility] [address] [place] [address], [facility] BASIC METABOLIC PANELon 05- Calcium [Mass/Vol] 8.7 mg/dL Normal 8.6-10.3 [facility] Comment on above: Order Comment: No: D o not add to previous draw Performed By: #### 1 0070, 46355, 12379, 57944 #### [facility] [address] [place] [id number], [facility] Chloride [Moles/Vol] 100 mmol/L Normal 98-107 [facility] Comment on above: Order Comment: No: D o not add to previous draw Performed By: #### 1 0070, 69972, 82948, 30214 #### [facility] [address] [place] [address], [facility] CO2 [Moles/Vol] 25 mmol/L Normal 21-31 [facility] Comment on above: Order Comment: No: D o not add to previous draw Performed By: #### 1 0070, 98374, 14694, 29582 #### [facility] [address] [place] [address], [facility] Creatinine [Mass/Vol] 1.14 mg/dL Normal 0.70-1.30 [facility] Comment on above: Order Comment: No: D o not add to previous draw Performed By: #### 1 0070, 61040, 51730, 30663 #### [facility] [address] [place] [address], [facility] GFR/1.73 sq M.predicted among blacks MDRD (S/P/Bld) [Vol rate/Area] mL/min/{1.73_m2} Normal >60 [facility] Comment on above: Order Comment: No: D o not add to previous draw Result Comment: Calc ulation may not be valid for patients over 70 years Performed By: #### 1 0070, 72142, 28246, 89378 #### [facility] [address] [place] [address], [place] GFR/1.73 sq M.predicted among non-blacks MDRD (S/P/Bld) [Vol rate/Area] mL/min/{1.73_m2} Normal >60 [facility] Comment on above: Order Comment: No: D o not add to previous draw Result Comment: Calc ulation may not be valid for patients over 70 years Performed By: #### 1 0070, 95553, 15116, 51692 #### [facility] [address] [place] [address], [place] Glucose [Mass/Vol] 261 mg/dL High 70-100 [facility] Comment on above: Order Comment: No: D o not add to previous draw Performed By: #### 1 0070, 51164, 35283, 25341 #### [facility] [address] [place] [address], [place] Potassium [Moles/Vol] 4.4 mmol/L Normal 3.5-5.1 [facility] Comment on above: Order Comment: No: D o not add to previous draw Performed By: #### 1 0070, 39632, 67054, 58971 #### [facility] [address] [place] [address], [place] Sodium [Moles/Vol] 134 mmol/L Low 136-145 [facility] Comment on above: Order Comment: No: D o not add to previous draw Performed By: #### 1 0070, 90357, 57160, 97180 #### [facility] [address] [place] [address], [place] Urea nitrogen [Mass/Vol] 30 mg/dL High 7-25 [facility] Comment on above: Order Comment: No: D o not add to previous draw Performed By: #### 1 0070, 09499, 66178, 67954 #### [facility] [address] [place] [id number], [facility] LIVER BATTERYon 10-29-2021 Albumin [Mass/Vol] 3.0 g/dL Low 3.5-5.7 [facility] Comment on above: Order Comment: No: D o not add to previous draw Missed twice. Rhiannon Riojas notified. Performed By: #### 1 0070, 83594, 05972, 69456 #### [facility] [address] [place] [address], [facility] ALKALINE PHOSPH 159 IU/L High 34-104 [facility] Comment on above: Order Comment: No: D o not add to previous draw Missed twice. Rhiannon Riojas notified. Performed By: #### 1 0070, 06821, 81954, 75051 #### [facility] [address] [place] [address], [facility] ALT [Catalytic activity/Vol] 25 U/L Normal 7-52 [facility] Comment on above: Order Comment: No: D o not add to previous draw Missed twice. Rhiannon Riojas notified. Performed By: #### 1 0070, 34047, 43805, 95177 #### [facility] [address] [place] [address], [facility] AST [Catalytic activity/Vol] 40 U/L High 13-39 [facility] Comment on above: Order Comment: No: D o not add to previous draw Missed twice. Rhiannon Riojas notified. Performed By: #### 1 0070, 80237, 30178, 68371 #### [facility] [address] [place] [address], [place] Bilirubin [Mass/Vol] 0.8 mg/dL Normal 0.3-1.0 [facility] Comment on above: Order Comment: No: D o not add to previous draw Missed twice. Rhiannon Riojas notified. Performed By: #### 1 0070, 98403, 24254, 78866 #### [facility] [address] [place] [address], [facility] Bilirubin.direct [Mass/Vol] 0.1 mg/dL Normal 0.0-0.2 [facility] Comment on above: Order Comment: No: D o not add to previous draw Missed twice. Rhiannon Riojas notified. Performed By: #### 1 0070, 69338, 00224, 43352 #### [facility] [address] [place] [address], [facility] Protein [Mass/Vol] 6.7 g/dL Normal 6.0-8.3 [facility] Comment on above: Order Comment: No: D o not add to previous draw Missed twice. Rhiannon Riojas notified. Performed By: #### 1 0070, 57345, 35924, 81367 #### [facility] [address] [place] [address], [facility] MAGNESIUM BLOODon 10-29-2021 Magnesium [Mass/Vol] 2.1 mg/dL Normal 1.9-2.7 [facility] Comment on above: Order Comment: No: D o not add to previous draw Performed By: #### 1 0070, 44000, 18859, 04953 #### [facility] [address] [place] [address], [facility] PHOSPHORUS BLOODon 2 Phosphate [Mass/Vol] 2.7 mg/dL Normal 2.5-5.0 [facility] Comment on above: Order Comment: No: D o not add to previous draw Performed By: #### 1 0070, 07250, 67416, 56896 #### [facility] [address] [place] [address], [facility] POC GLUCOSE LABon 10-29-2021 Glucose [Mass/Vol] 262 mg/dL High 70-100 [facility] Comment on above: Performed By: #### 5 7307, 17856 #### [facility] [address] [place] [address], [facility] PROTHROMBIN TIMEon INR Coag (PPP) [Relative time] 1.05 {INR} Normal 0.91-1.16 [facility] Comment on above: Order Comment: No: D o not add to previous draw Result Comment: ACCC P RECOMMENDED INR FOR WARFARIN THERAPY --------- ------- CONDITION INR PROPHYLAXIS OF VENOUS THROMBOSIS 2-3 (HIGH-RISK SURGERY) TREATMENT OF VENOUS THROMBOSIS 2-3 TREATMENT OF PULMONARY EMBOLISM 2-3 PREVENTION OF SYSTEMIC EMBOLISM: 2-3 ACUTE MYOCARDIAL INFARCTION TISSUE HEART VALVES VALVULAR HEART DISEASE ATRIAL FIBRILLATION RECURRENT SYSTEMIC EMBOLISM MECHANICAL HEART VALVE 2.5-3.5 FROM: ORAL ANTICOAGULANTS. MECHANISM OF ACTION, CLINICAL EFFECTIVENESS, AND OPTIMAL THERAPEUTIC RANGE. CHEST 1995;108:231S-246S. Performed By: #### 5 7307, 93309 #### [facility] [address] [facility] [place] [address], [facility] PT Coag (PPP) [Time] 13.7 s Normal 12.3-14.8 [facility] Comment on above: Order Comment: No: D o not add to previous draw Result Comment: ALL RESULTS MUST BE INTERPRETED WITH RESPECT TO BLOOD DRAWING ARTIFACT OR DILUTION ERROR OF ANTICOAGULANT AT THE TIME OF SAMPLING. Performed By: #### 5 7307, 37369 #### [facility] [address] [place] [address], [facility] XR knee RT 2Von 03-11-2021 XR knee RT 2V [facility] [address] [place] [address] XRay Report Signed Patient: Richard Boykin MR#: [id number] : 1940 Acct:[id number] Age/Sex: 80 / M ADM Date: 03/11/21 Loc: [facility]: Type: [facility] Attending Dr: Godfrey Gomez MD Ordering Provider: Godfrey Gomez MD Date of Service: 03/11/21 XR/XR knee RT 2V: Arthritis of right knee Copies to: Godfrey oGmez MD XR knee RT 2V 03/11/2021 7:52 [...] Jama Callejas M.D.03/11/2021 1:29 PM Dictation Location: [place] [address] Transcribed By: [facility] 03/11/21 1329 Dictated By: Jama Callejas II, MD 03/11/21 1328 Signed By: 03/11/21 1329 Normal [facility] XR knee RT 2V [facility] [employer] Other XR knee RT 2V [facility] [employer] Other XR knee RT 2V [address] [facility] [employer] Other XR knee [place] 2[place] [address] [facility] [employer] Other XR knee RT 2V [facility] Other XR knee RT 2V Signed [facility] [employer] Other XR knee RT 2V Patient: Richard Boykin MR#: [id number] [facility] [employer] Other XR knee RT 2V : 1940 Acct:[id number] [employer] Other XR knee RT 2V Age/Sex: 80 / M ADM Date: 03/11/21 [facility] Other XR knee RT 2V Loc: [facility] [place] Room: Type: [facility] [employer] Other XR knee RT 2V Attending Dr: Godfrey Gomez MD [employer] Other XR knee RT 2V Ordering Provider: Godfrey Gomez MD [facility] Other XR knee RT 2V Date of Service: 03/11/21 [employer] Other XR knee RT 2V XR/XR knee RT 2V: Arthritis of right knee [employer] Other XR knee RT 2V Copies to: Godfrey Gomez MD [employer] Other XR knee RT 2V XR knee RT 2V 03/11/2021 7:52 AM [employer] Other XR knee RT 2V SIGNS AND SYMPTOMS: Status post total right knee arthroplasty placement, follow-up [employer] Other XR knee RT 2V PROTOCOL: Frontal and lateral graphs of the right knee [employer] Other XR knee RT 2V COMPARISON: 10/08/2020 [employer] Other XR knee RT 2V FINDINGS: [employer] Other XR knee RT 2V There is total right knee arthroplasty hardware without hardware complication or malalignment. [employer] Other XR knee RT 2V There is no significant soft tissue swelling. No evidence of fracture. Vascular calcifications are [employer] Other XR knee RT 2V present posteriorly. [email or web address] Other XR knee RT 2V XR/XR knee RT 2V [facility] Other XR knee RT 2V IMPRESSION: [employer] Other XR knee RT 2V Unchanged total right knee arthroplasty hardware. No fracture or hardware complication. [employer] Other XR knee RT 2V Impression dictated by: Jama Callejas M.D.03/11/2021 1:29 PM [employer] Other XR knee RT 2V Dictation Location: [place] [address] [employer] Other XR knee RT 2V Transcribed By: FLAVIA 03/11/21 [facility] [employer] Other XR knee RT 2V Dictated By: Jama Callejas II, MD 03/11/21 [facility] [employer] Other XR knee RT 2V Signed By: [employer] Other XR knee RT 2V 03/11/21 [facility] [employer] Other Vital Signs Date Time Vital Sign Value Performing Clinician Oracio addison 12-02-2021 11:15-0400 Body height 177.8 cm Teofilo Olexa Other [employer] Other Encounters Encounter Date Encounter Type Care Provider Facility Start: 02-28-2024 End: 02-28-2024 ambulatory Marj Sorensen Facility:[facility] Start: 02-06-2024 ambulatory CAREY FUNG Facility:[facility] Start: 01-24-2024 End: 01-24-2024 ambulatory Marj Sorensen Facility: [facility] Start: 12-06-2023 ambulatory Marj Sorensen Facility: [facility] Start: 10-06-2023 End: 10-06-2023 ambulatory [facility] Start: 10-05-2023 End: 10-05-2023 ambulatory Marj Sorensen Facility:[facility] Start: 09-22-2023 End: 09-22-2023 ambulatory Marj Sorensen Facility:[facility] Start: 03-03-2023 End: 03-03-2023 ambulatory FRANCOIS NERI [facility] Start: 02-27-2023 End: 02-27-2023 ambulatory UNKNOWN PROVIDER Facility:[facility] Start: 02-16-2023 End: 02-16-2023 [facility] Start: 10-24-2022 End: 10-25-[address] DOCTOR MALCOLM Facility:[facility] Start: 10-21-2022 End: 10-21-2022 ambulatory DOTTIE BILSSS [facility] Start: 03-26-2022 End: 03-27-[address] DOCTOR MALCOLM Facility:[facility] Start: 01-19-2022 End: 01-19-2022 Patient encounter procedure MD Marj Sorensen Work Phone: [facility] Start: 12-21-2021 End: 12-22-[address] SWEETIE TOMLINSON Facility:[facility] Start: 12-02-2021 End: 12-02-2021 ambulatory Teofilo Person Other [facility] Other Start: 12-02-2021 Office outpatient visit 25 minutes Teofilo Person [facility] Start: 12-02-2021 End: 12-02-2021 Patient encounter procedure MD Marj Sorensen Work Phone: [facility] Start: 10-29-2021 End: 11-02-2021 Evaluation and management of inpatient MARJ SORENSEN Facility:[facility] Start: 10-29-2021 Telephone encounter Aly koo MD Work Phone: [facility] Start: 10-28-2021 End: 10-28-2021 ambulatory Godfrey Gomez Other [employer] Other Start: 10-28-2021 Telephone encounter Godfrey Gomez [facility] Start: 03-11-2021 Office outpatient visit 15 minutes Lydia Anderson [facility] Procedures Date Procedure Procedure Detail Performing Clinician Start: 12-02-2021 Plain X-ray of right shoulder MD Marj Sorensen Work Phone: Plan of Treatment Date Care Activity Detail Author Start: 10-29-2021 Welcome to Medicare Visit (G0402) Welcome to Medicare Visit (G0402) [facility] Start: 2006 Pneumococcal vaccination Pneum ococcal Vaccine(s) (65+ yrs) (1 - PCV) [facility] Start: 1991 Shingles (RZV) Vacci ne (1 of 2) Shingles (RZV) Vaccine (1 of 2) [facility] Start: 1959 Tetanus + diphtheria + acellular pertussis vaccine (product) Tdap [employer]oster [facility] Start: 1946 COVID-19 Vaccine (1) COVID-19 Vaccin e (1) [facility] Payers Date Payer Category Payer Medicare MEDICARE MEDICAR E PART A & B [id number] 2021-Present [address] [place] [address] Medicare [id number] 2021 Unknown AARP AARP [id number] 2021-Present [address] [place] [address] [id number] 1959 Medicare [id number] 1959 Unknown [id number] 1940 Unknown [id number] [id number] 1940 Unknown [id number] [id number] 1940 Unknown [id number] 2.16.840.1.841841.3.579.2.593 1940 Unknown [id number] 2.16.840.1.250892.3.579.2.593 1940 Unknown [id number] 2.16.840.1.377857.3.579.2.732 1940 Unknown [id number] 2.16.840.1.862206.3.579.2.718 1940 Unknown [id number] 2.16.840.1.090419.3.579.2.718 1940 Unknown [id number] 2.16.840.1.797782.3.579.2.718 1940 Unknown [id number] 2.16.840.1.936644.3.579.2.718 1940 Unknown [id number] 2.16.840.1.322323.3.579.2.718 1940 Unknown [id number] 2.16.840.1.172009.3.579.2.718 1940 Unknown [id number] 2.16.840.1.106161.3.579.2.718 1940 Unknown [id number] [id number] Self-pay Self Pay [id number] Social History Date Type Detail Facility Tobacco smoking status AZIS Tobacco [facility] consumption [facility] Work Phone: Start: 1940 Sex Assigned At Not on [facility] Sex Assigned At Sex Assigned At [facility] Other Start: 02-27-2020 Tobacco smoking status AZIS Never smoked tobacco (finding) [facility] Start: 1940 Sex Assigned At Male F [facility] Medical Equipment Procedure Code Equipment Code Equipment Origin al Text Equipment Identifier Dates Arthroplasty, knee, total, minimally invasive Orthopaedic cement, non-medicated ([id number] FDA Start: 02-27-2020 Arthroplasty, knee, total, minimally invasive Uncoated knee femur prosthesis ()[id number] FDA Start: 02-27-2020 Arthroplasty, knee, total, minimally invasive Tibial insert ()[id number] FDA Start: 02-27-2020 Arthroplasty, knee, total, minimally invasive Polyethylene patella prosthesis ()[id number] FDA Start: 02-27-2020 Arthroplasty, knee, total, minimally invasive Knee stem ()[id number] FDA Start: 02-27-2020 Arthroplasty, knee, total, minimally invasive Uncoated knee tibia prosthesis, metallic ()[id number] FDA Start: 02-27-2020 Clinical Notes 03-11-2021 to 03-13-2024 Note Date & Type Note Facility 03-13-2024 Note Entered by Yvonne Lin on March 13, 2024 08:35:34 EDT From: Yvonne Lin To: [facility] Sent: 03/13/2024 08:35:34 EDT Subject: Medication Management Not Approved: Patient has requested refill too soon, Medication was filled on 02/28/24 hydrochlorothiazide-lisinopril (Lisinopril-hydroCHLOROthiazide 10-12.5 MG Oral Tablet) TAKE 1 TABLET BY MOUTH DAILY Qty: 30 tab(s) Days Supply: 30 Refills: 11 Substitutions Allowed Route To Pharmacy - [facility] Note from Pharmacy: Requesting 1 year supply Signed by Yvonne Lin --- From: [facility] To: Marj Sorensen MD Sent: March 12, 2024 10:03:01 PM CDT Subject: Medication Management Due: March 13, 2024 12:04:00 AM CDT On Hold Pending Signature Drug: hydrochlorothiazide-lisinopril (hydrochlorothiazide-lisinopril 12.5 mg-10 mg oral tablet), TAKE 1 TABLET BY MOUTH DAILY Quantity: 30 tab(s) Days Supply: 30 Refills: 0 Substitutions Allowed Notes from Pharmacy: - First Attempt Ref: [id number] Dispensed Drug: hydrochlorothiazide-lisinopril (hydrochlorothiazide-lisinopril 12.5 mg-10 mg oral tablet), TAKE 1 TABLET BY MOUTH DAILY Quantity: 30 tab(s) Days Supply: 30 Refills: 11 Substitutions Allowed Notes from Pharmacy: Requesting 1 year supply --- [facility] 12-11-2023 Note [id number] #[email or web address] [facility] 10-06-2023 Note [place] [facility] - [facility] Subjective Richard Boykin is a 83 y.o. year old male patient being seen for Follow-up (6 month follow up had echo completed ) Patient Active Problem List Diagnosis Acquired hypothyroidism Atrial fibrillation ([facility]) Cellulitis of lower leg Coronary arteriosclerosis Hyperglycemia Hypertensive disorder Infectious joint disease (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) Nonrheumatic aortic valve stenosis PAD (peripheral artery disease) ([facility]) Mixed hyperglyceridemia History of arthritis Gout Dyspnea on exertion Chronic renal impairment Back pain Ulcer of toe ([facility]) Paroxysmal atrial fibrillation ([facility] Type 2 diabetes mellitus ([facility] Diabetes mellitus ([facility] Hypertension Peripheral arterial occlusive disease ([facility]/HCC) Peripheral vascular disease ([facility]) Osteoarthritis Aortic valve stenosis Hyperlipidemia Leg ulcer, left, with unspecified severity ([facility]) JENARO (acute kidney injury) ([facility]) Allergic rhinitis Cellulitis of toe of right foot Vertigo Fatigue Gastroesophageal reflux disease Heart failure ([facility]/HCC) Idiopathic peripheral neuropathy Immunodeficiency disorder ([facility]/HCC) Morbid obesity (CMS/HCC) Muscle weakness Psoriasis Psoriatic [...] October 29 to November 02, 2021 at [facility] with MSSA bacteremia likely related to [...] 3 years ago. He follows with a signing agent. Recent testing: ECG 10/25/2021: Atrial fibrillation, nonspecific [...] walker to ambulate. He continues to see signing agent and has a nurse that comes to [...] TSH: I as (more content not included)... [facility] 05-25-2023 Note Entered by Jeane Bush [...] MD Sent: May 25, 2023 4:55:58 AM ASSISTANT PROFESSOR Subject: Medication Management Due: May 26, 2023 12:04:06 AM ASSISTANT PROFESSOR On Hold Pending Signature Drug: pantoprazole (pantoprazole 40 mg oral delayed release tablet), TAKE 1 TABLET BY MOUTH DAILY Quantity: 90 tab(s) Days Supply: 90 Refills: 1 Substitutions Allowed Notes from Pharmacy: - First Attempt Ref: [id number] Dispensed Drug: pantoprazole (pantoprazole 40 mg oral delayed release tablet), TAKE 1 TABLET BY MOUTH DAILY Quantity: 90 tab(s) Days Supply: 90 Refills: 3 Substitutions Allowed Notes from Pharmacy: Please send a replace/new response with 90-Day Supply if appropriate to maximize member benefit. Requesting 1 year supply. --- [facility] 03-03-2023 Note Cardiology Clinic No te Subjective [...] aortic valve stenosis PAD (peripheral artery disease) ([facility]/HCC) Mixed hyperglyceridemia History of arthritis Gout Dyspnea [...] October 29 to November 02, 2021 at [facility] with MSSA bacteremia likely related to [...] 3 years ago. He follows with a signing agent. Recent testing: ECG 10/25/2021: Atrial fibrillation, nonspecific [...] walker to ambulate. He continues to see signing agent and has a nurse that comes to [...] great. Update: 03/03 (more content not included)... [facility] 03-03-2023 Note Patient here for [facility]. He was at [facility] and fell recently. Says his knee gave out. He was taken via [employer] off the [place] and flown to [facility]. Lisinopril and hydrochlorothiazide were stopped due to JENARO. He does see nephrology in [place], but not locally in [place]. He denies chest pain, SOB, palpitations, syncope/lightheadedness and bleeding on Eliquis. Had outpatient echo a few weeks ago. Review of Systems Hematologic/Lymphatic: Bruises/bleeds easily. Musculoskeletal: Positive for falls and muscle weakness. All other systems reviewed and are negative. [facility] 02-16-2023 Note Patient here for 3 m o follow up afib, chronic systolic heart failure, and CAD. Had echo last week. Security Sergeant increased lisinopril to 5mg in September 2022, after labs in August. He denies chest pain, SOB, palpitations, and bleeding on Eliquis. Doing very well. Review of Systems Cardiovascular: Positive for leg swelling. All other systems reviewed and are negative. [facility] 02-16-2023 Note [facility] CARDIOLOGY PROGR ESS [...] October 29 to November 02, 2021 at [facility] with MSSA bacteremia likely related to [...] 3 years ago. He follows with a signing agent. Recent testing: ECG 10/25/2021: Atrial fibrillation, nonspecific [...] walker to ambulate. He continues to see signing agent and has a nurse that comes to [...] by mouth i (more content not included)... [facility] 10-21-2022 Note Hypertension is well controlled 128/70 Continue all meds [facility] 10-21-2022 Note Continue ASA, eliquis and atorva statin [facility] 10-21-2022 Note [id number]= 6 age, HTN, CHF, DM and PAD Continue eliquis 2.5 mg bid, and metoprolol 25 mg bid- heart rate well controlled [facility] 10-21-2022 Note Diabetes is uncontro lled and pt needs better glycemic management - May benefit from a referral to endocrinology and will leave this up to the PCP [facility] 10-21-2022 Note Referral to wound ca re for management of diabetic ulceration of LT lower leg with known uncontrolled DM, PAD, and edema. Pt has appointment made and information provided to him- appt is Monday10/24/22 with wound care. Foam dressing applied to ulceration [facility] 10-21-2022 Note [facility] CARDIOLOGY PROGR ESS [...] October 29 to November 02, 2021 at [facility] with MSSA bacteremia likely related to [...] 3 years ago. He follows with a signing agent. Recent testing: ECG 10/25/2021: Atrial fibrillation, nonspecific [...] walker to ambulate. He continues to see signing agent and has a nurse that comes to [...] the morning. empagl (more content not included)... [facility] 10-21-2022 Note Patient here for 6 m o follow up PAF, chronic diastolic heart failure, PAD, aortic valve stenosis, and hypertension. Had routine labs in August 2022. Denies chest pain, SOB, palpitations, and bleeding on Eliquis. Just got back from [place] last night after 7 months. Review of Systems Hematologic/Lymphatic: Bruises/bleeds easily. Musculoskeletal: Positive for muscle weakness. All other systems reviewed and are negative. [facility] 10-21-2022 Note Reviewed echo from - Mild AO stenosis Will monitor with routine echcoardiogram D/W pt to call office for increased shortness of breath, palpitations, chest pain, lightheadedness/dizziness or syncope and he voiced understanding [facility] 10-21-2022 Note Coronary artery dise ase is stable without any concerning symptoms continue risk factor modifications- heart healthy diet, regular exercise as tolerated and continue all medications. [facility] 10-21-2022 Note [facility] II-III currentl y euvolemic without exacerbation Continue GDMT- lasix 40 mg daily and jardiance Diuretic therapy- lasix decreased from bid to daily per neprhologist Monitor daily weights, I&O, fluid restriction 1.5-2L/day, renal function and electrolytes- [facility] 10-21-2022 Note [id number] score i s 4 due to age, hypertension, diabetes. Eliquis anticoagulation [facility] 12-02-2021 Evaluation note Encounter Date Diagnosis [...] discuss treatment if continues to cause issues [facility] Other 05-18-2022 NoteMR#: [id number] I [facility] Pt. Name: Richard Boykin Admitted: 10/29/2021 Discharged: 11/02/2021 Date of : 1940 Physician: Alicia Sweet MD DISCHARGE SUMMARY FINAL DIAGNOSES: 1. Methicillin-susceptible Staphylococcus aureus bacteremia. 2. Probable septic joint infection. 3. Right knee replacement. 4. New onset atrial fibrillation with RVR. 5. Nonobstructive coronary artery disease and peripheral arterial disease. 6. Csi-wmtaerc-iezjachae diabetes mellitus. 7. Hypertension. HISTORY OF PRESENT [...] remained negative. He had a TTE at [facility] with poor image quality. There were no evidence of secondary source of infection on physical exam. Apparently, his repeat cultures at [facility] on October 24 and October 25, remained [...] his need for full anticoagulation with the public health physician on an outpatient basis. He understands that [...] Sweet MD Date Trans: 11/03/2021 09:12 A/lindsay [id number] cc: Marj Sorensen M.D. [address] [place] [id number] [place] [address]-13-2022 Miscellaneous Notes* Telephone Encounter - Aly Mcclelland MD - 10/29/2021 2:59 PM EDT I was called by [facility] about patient with septic arthritis and bacteremia requesting transfer for higher level of care. 81 obese, afib, CAD, PAD, hx hip/knee replacement recently moved back from [place]. Presented on 10/24 with R shoulder pain [...] instability. Aly Mcclelland MD documented in this [id number] Evaluation note* Encounter Date Diagnosis Assessment Notes [...] Feb, Restless leg syndrome (ICD-10 - G25.81) [facility] Other Evaluation noteNo InformationNort GroupThat, [employer] Other Evaluation noteNo assessment information available [facility] Work Phone: History general Narrative - Reported* Type Description Date Medical History PVD Medical History psoriatic arthritis Medical History diabetes mallitus Medical History Gout arthrits Medical History hypertension Surgical History Bilateral hip replacement Surgical History cataract Surgical History left total hip revision Surgical History [facility] Other Summary Purpose Family History No Family [...] and content) DATE CREATED AUTHOR 12/04/2021 [facility] DATE CREATED AUTHOR AUTHOR'S ORGANIZ ATION 01/31/2022 [facility] DATE CREATED AUTHOR AUTHOR'S ORGANIZ ATION 10/25/[address] [facility] DATE CREATED AUTHOR AUTHOR'S ORGANIZ ATION 02/28/2023 [facility] DATE CREATED AUTHOR AUTHOR'S ORGANIZ ATION 10/07/2023 [facility] DATE CREATED AUTHOR AUTHOR'S ORGANIZ ATION 03/20/2024 [facility] REASON FOR VISIT (unrecogniz [...] BE BASED ON THE PRIMARY CLINICAL RECORDS. [facility]. provides no warranty or guarantee of the accuracy or completeness of information in this document.
== END 2024-03-22 11:36 | disposition home or self-care (01) ==
LOC: WC 11:35
PROVIDERS: PCP Family Medicine; Visit Provider Podiatrist Foot & Ankle Surgery
DX: E11.621 Type 2 diabetes mellitus with foot ulcer (principal); L97.511 Non-pressure chronic ulcer of other part of right foot limited to breakdown of skin; I87.312 Chronic venous hypertension (idiopathic) with ulcer of left lower extremity; L97.822 Non-pressure chronic ulcer of other part of left lower leg with fat layer exposed
CPT/HCPCS: G0463

== ENCOUNTER 2024-03-27 07:46 | Outpatient (OUT) | payer MEDICARE, SELFPAY ==
--- OUTSIDE RECORDS SUMMARY | 2024-03-27 07:50 | XMS_ITS | CCD ---
Author Organization [facility] Care Team Providers Care Complaint Investigations Officer Name Role Phone Unavailable Primary Care Provider [...] Unavailable DOTTIE GIRARD Attending Unavailable Marj Sorensen Attending Unavailable Marj Sorensen Primary Care Unavailable Marj Sorensen Attending Unavailable Marj Sorensen Primary Care Unavailable KENTON, CAREY Admitting Unavailable CAREY FUNG Attending Unavailable Marj Sorensen Primary Care Unavailable KENTON, CAREY Admitting Unavailable KENTON, CAREY Attending Unavailable Marj Sorensen Primary Care Unavailable FUNG, CAREY Admitting Unavailable KENTON, CAREY Attending Unavailable Marj Sorensen Primary Care Unavailable Marj Sorensen Admitting Unavailable Marj Sorensen Attending Unavailable Marj Soresnen Primary Care Unavailable Marj Sorensen Primary Care Unavailable Marj Sorensen Admitting Unavailable Marj Sorensen Attending Unavailable Marj Sorensen Attending Unavailable Marj Sorensen Primary Care Unavailable Medications Current Medications Medication Drug Class(es) [...] 2020 12:00am take 1 capsule by mo [facility] every twenty-four hours hydroCHLOROthiazide 12.5 MG 1 [...] Daily at bedtime February 27, 2020 12:00am Mqxhyrla-Mdg-Rveqh -Vit K-Lycop (Men's 50 Plus Daily Formula) 400-20-370 mcg Tablet (1 source) Start: 02-12-2020 take 1 tablet by mouth once daily Gxzbcspf-Bup-Fffi c-Vit K-Lycop (Men's 50 Plus Daily Formula) [...] before bedtime Orally Once a day Active Guy Oil-[place]-3 Fatty Acids (Guy Oil-1000) 1,000-200 mg Capsule (1 source) Start: 02-12-2020 take 1 capsule by mouth once daily Guy Oil-[place]-3 Fatty Acids (Guy Oil-1000) 1,000-200 mg Capsule Active 1 CAP [...] disease (2 sources) Atherosclerotic heart disease of red devil coronary artery without angina pectoris; Translations: [Atherosclerotic heart disease of red devil coronary artery without angina pectoris] Onset: 02-19-2022 [...] Coding Summaryon 03-12-2024 Coding Summary HTMLBase 64 RwmyjhutYPz7lXv+PGhl YWQ+AR9KHZHxU94coEGu wS7rU4ZXGPaVRjjaYWKZ TEoFPkScuxFhOK3opNYd ZXJu IC8+VM7yBPVkXmqixMCw c5V1dUY9Y68slw7vHZrc tCE6TJByBsBjbxzpn8vy oCn8FYslHtibVmXx CYSrmB84KLQ1dK59Qq72 iYDubDJzm9iqxPd6PbLr SHGfJHQ3mZokHNetz5Gk YLRzY85qrIBvv6X7 IGNvbGxhcHNlOyBlbXB0 aP8jETsjxddxa0rjzpkl Gxr4zc47uVJdo5F9fSR1 D4SxmwY6DRHmbEPr IvzfpYUUuY0cgjsuj9fn mtmsLfZuQVHhSEc9QTp3 EUCvxPydZwEtTJ00DOG6 YLNcgdJmD5EgORIi nWfnOdT0o4K1Vk6PI1CA GsoyH1RBPYFXFYvuiUN+ QI35wo17C3AbLrqbYxh4 LKNmBMH4pKR4gR5w AVPkGOura7L3qUV6S9Po ylOvyg7xi2qyFODwVBbb K95crONpv9Q4FOZrnCC6 SBYkuZdwDiJdoA49 Oyc+KSVezLpkq7DaGxix r1tuo9lsiQi3DxbtERZt rmZlfVmuTVC9z9QfXy0k YJWznDE1bWK3iY4c WjTiCeP1VSwpQ655TtMu yTUcNsvhS36cX8XiiVQ+ XBKfCed4HYQlnEbbIG4n P1ZvXDLrbbfrrEMf qAwbQV2bGWQwsnmzYPRs dA7pGDJeU0e7ChZpMyE6 AKujY1ZxSAFuhhjeAf12 kR7nWuCbUrN9VRxj D3KkzwU0OYKmgXTnZSpx IQF0B68af6H7TMOcCFIq LMY5xNV7pB5iyHeechgz bGVmdDsgdmVydGlj SHbdDNgyR529LLNsyVxk PkNvZGluZyBEYXRlOiAg MDkvMjQvMjAyNDwvdGQ+ LHZqWZL1yGsiQSYl tVQlZWwiPc5hwUppdZuw BS6uLPCdhftmGSNjbT8l LPOduRAnxWvqNQ8pPHBs ilfiu305OfHnBHM1 LMMvhGBoU2NvzQ0tWlQj AAVwELVuM4AbyLSlNKpj W640KPmbZuF8ZKCykfWu E8ZdHPOcwDeuZxL6 x8S2Sv1Nw8JnjbilB7Fr sNWeMzEgPaxcZIg4L8Gv PjwvdHI+PK98CCGwOW81 MRe7DNG9gDegNNmc OMYqC1ExjJ9xDmCiKHMk ZGRkOyc+PHRhYmxlIHdp ZHRoPScxMDAlJyBzdHls PU9xNz3kOSVuSHZo hNzukXXnBnFhy7xiLYLf AQzsKF9elKjlC2HwrRG2 OGRrj9y5Mf56H17wP2Ge dXA+PESsxAU8bBY5 gI2eLtHfRbF3KGmbJ818 ZnEkbZCnAlmez0luq6ln eWz5XqI7SHRilmSiuAlx VMD1e5PsDd48H77j IHdpZHRoPSIxNSUiIHZh cWjlmf3svO7aDt4+PGNv lSV2mWF0bJ7qNnKwUbL8 FJupY117DfXxhKCj Akwgg0lnt5cpsEt7XdJn YEFxtiGcbNflYBE7c0Dy Ug44M5MgeTmck1SxSwy4 jz69xEZnk0K4oNY2 K9KtXYUnzhulpZBsrKfb PQ8kNQRxupdaFQQefH9o IXCaH5y1WrBgGnG4PGic J9RjajC3RERleEOx ITJedDQRcE2esiyfv7ao jtaeUgJlVBWgGKf5LAc0 YZCzlHooFjQjWXC9VhT1 RYR9eOZltH7keSvz xcodgY6vQjg+PTI3uGVt mJAAJV2dOnqmkJJ+PHRk ZVG2gKtuDUfhRAWbpC5q MBGqA1g7FlDmWqY6 LXftQ7UfwyY1DJXggRQj DRPnkEIXwL8lmtkot2qc zoniGfWhOQFoTAv2EDh5 LWFsaWduOiBsZWZ0 WmS1GUV1gKTuwX6gdKdl vqiuwV0oZgp+QmlydGgg PFK8VTb7Y8KzTmx1JNTl dDlvFF8vbZZnWFtv Wq7icRuviEvfQQ0nGACg leplm079KxBmn3beIWCa zIQbEBbxVKJ1R29hx7C7 XLAmGNDcXTB8aKA5 cA2jrMohvmvucWAezYzt itFndOibYKkqSXdtN433 HLYigPfnVaJvMTp2U4Gs Ciq7FCFwsJwvEN3l iWEyGNgoPi7uyUfwfHza YV0rBUGzxxqww481MkMe m7thBHQalYKcCYujMGX3 C88dm7R1RKNzSDFm KXW6lMF5tU4oaFmjxmsd bGVmdDsgdmVydGljYWwt AAqzV304YQKgsGyxFdIl tRq3V5QmVyq5NRAa tVttFJ4yyQSdGYjtHo6n fSfvfLcfJF5mZWXxvgib q355BtYjt9fwEVCkeDWu KApcUPI6I99xx8W0 KWJwYZTyZYB2hJG2jX1t bGlnbjogbGVmdDsgdmVy oMowEVyfTEmbT245UITd cDsnPlBhdGllbnQg XRwwQOn9H1DvEhqilXQ+ JV32OGBvKL29sKPvtNJg w8wpnXm6NaDqPRHlKRS1 dXtbOKuhu9OnLNCr Y85ceKObs3F6GBUamQax sFGgYkCbhDN7sJ4uANqt cxsmo9azvjovBryos5hd qt62nC75Q64jFOgf ZHRoPSIzMCUiIHZhbGln hb0hwO1qBc5+PGNvbCB3 wOO7pP6yZSHnDgT1OPcp A568LqZdiQZuFktg o0kck5cubMw7RqN0ITSm emYvvGwxIVX1b8LmTo13 N11mQTioFLJzRRCtRALj ZHQgoOmxah3kgN6d Ii8+ROPfiJL1iQX4aB2x TcKrUoX5DXfgK305UuEs oXYmFoqiR79pG7UooHU+ LSItKkx0WDHvaJfs YS7zzUCdOMwwHo8zNMJ3 QaTtZeNjGOnnW6ZcLPWb bbstundumRI0UEPuKLNt aI18Gn2onAgyCBWe zXKGdY8zrrjct8yqthwv UsUlSTKeXHs7ADx5OWJm gWrrSlClBME4HdD7DDZ9 cGErcH5vgHzikyij jC2vB0NuIGLmehkxYv39 sW4iCzFzMmY9NEsfLvf+ E7PMVCIZELAXPXdjIGLG ZGFMZC15PK33fMOj p3W1xWM9G1OvWMPaupig yjyuoRG3BKUpSKDfxZ38 xPTaYRbwPp6uw8F0k283 YUTbWGXtpM96Wr4y lFbzYNXmdZSYdP6gkith n5keufqmLeMfCEVuLNx4 MUf1EIRgdXhxNvWmQSN7 GdI1RHP8oXVghI8p uTishlpjaX9mKqr+MDEv WLSnKSb1GmqzwKB+PHRk CNM1sKofWJxnPMLeaX0n DBYjA5a1MzLmGrA8 LGszK1EpECQmrtwlZu21 rS0cYbTaFzH0VXbpN2Xk trZ9IGCmeARyNBjzKDW7 B32um6M6GSQxIVVy BQX2cCP6aV3vyOosxraq bGVmdDsgdmVydGljYWwt XItcY282FVWjjIsoBdbo QDzrKDDrZL16XH12 nXHag8V0hDD3T4HyCPWi uphqvtgtpOQ4ECTsPONm sQ64yGTlFYreHy7pa6C1 b884QZVySRKxuA94 Vd6kzOcvFUAfpKBWcI4c hzwhk3psugeoWiBdFTWv NXw5GIu8NIFzdBxeXmTo GSM3IzW1DEE0bWCs aZ8qkWvcjfybiI1zTxc+ TUFMRTwvdGQ+PHRkIHN0 gLwrOCzoKOQiyU9iHOUc G8g5JjZtGsE6LYvv R0ThZEZeibuuBk92sI9d GyNgPrW2HBzkO3XpnvB8 BRIxfLTzJYzrSDQ8T05e g8Y8OXCwLNPaKKW3 iXW6cP5cyQvixsyptMRe dDsgdmVydGljYWwtYWxp K749STQkvQrrYt6OVO57 ZE26A9DgBuraaBSv bGU+PHRhYmxlIHdpZHRo ZDtnIQYdPhVsnVqgPO6f Un3zMHDcUEJxzOldmQDu DvHqf6lqSSWyLKdd VN8bvMniG6ComLR6YMVk q4p6Wt55U66bH8KjwBZ+ LXRlwVT8yXY4yM9wSxDn ZtV1YJtgR581YuFy hQLpLfrdn3rtb3zvvWn1 IjMwJSIgdmFsaWduPSJ0 e7GtMe51G16qPQsrUZWx PSIyMCUiIHZhbGln ic5fmG6vKo1+PGNvbCB3 wIV9bT2cGnZjUjD2IGaj D473OeKgyQNgNsrbC32d J0ZfzMN+PHRyPjx0 DWHetWmcRN3ztGLgBTyt Rc3bPGY1CtBoAvUmSJgs U6AcCCNbjouxtxlkfZB6 WJHxMKQyxO41Rk7c mLxmCb1cNHTbNUG5OXIt gKTbK2QquS4gHgOeWPPf JLFwQ3QrmASvAWwkN010 FScfZrE1QTKsbwUp Q7KqVEDofPgmFlH9z4M4 Wk1CmJpqeHHoNZ8tUkXn GUq6I5UqLwc8CFSbdBqo OO7anINmYGrvLb2o dUhskBejSX9hTMBzqvqs f625MtIic3luLMMbmIVx DIgnLPN9X39uj7D6CZYp JFPlNTQ9kOA0fL2y bGlnbjogbGVmdDsgdmVy kFiuFWhcDAlbH542BQYo hSaiBrJHCza2V7JlXwr3 WJNrbJuvCU1dbQPd WZctUf6ihJfjbGhcWQ2l YSRnhbfzy101EqNax2be UHSteGCvMKhiVTI1X66q q0H7AQInIMTyEKP3 xMV8dK4wiBbjxcukyKQr dDsgdmVydGljYWwtYWxp Q044DFBfeLlnHi3GVrb3 K0RfGca6MKDuqCty OA9qpPZeMGdoBf7ptXyb aQqoPD5lBYGoqqtdv519 UdBkv9hgBXRctSBnWKlv MFL7O73ow7Y0EHFj ONEaLZU8pQQ1nC3hmFbj bjogbGVmdDsgdmVydGlj CCkcKQatN058EKStdDkp PlBheWVyOjwvdGQ+ BC70mn17H4GzAobmTup6 XHZpWRZ7mLV9tL9jDPXx BJyne2U7kTW7W7RktvJw pr2xm2jvBQJoWSxy Y29 (more content not included)... [facility] Outside Recordson 03-04-2024 Outside Records [id number] #[email or web address] [facility] Office/Clinic Noteon 024 Office/Clinic Note Patient: [...] All Problems Acquired hypothyroidism / SNOMED CT 755951640 / Confirmed Afib / SNOMED CT 67782556 / Confirmed Chronic renal insufficiency / SNOMED CT 7419049870 / Confirmed Degenerative arthritis / SNOMED CT 3807007824 / Confirmed Gout / SNOMED CT 339739794 / Confirmed History of psoriatic arthritis / SNOMED CT 359199477 / Confirmed HTN (hypertension) / SNOMED CT 8834918452 / Confirmed Hyperlipidemia / SNOMED CT 97879355 / Confirmed PAD (peripheral artery disease) / SNOMED CT 9708739139 / Confirmed Thoracolumbar back pain / SNOMED CT 403602507 / Confirmed Type 2 diabetes mellitus / SNOMED CT 051118037 / Confirmed, Active Problems (11) Acquired hypothyroidism [...] 107.230 kg Body Mass Index 33.47 kg/m2 [place] Body Weight Calculated 74.087 kg BSA Measured 2.31 m2 General: Alert and oriented, No acute distress. Neck: No carotid bruit, (more content not included)... [facility] Miscellaneouson 02-26-2024 Miscellaneous [id number] [email or web address] Provider Orders [id number] [email or web address] C[facility] 02-11-2024 Coding Summary HTMLBase 64 KruftchkKQf9vXe+PGhl YWQ+PU7LGZRiJ92kgGHk dE7uC9IFRKkRFsnbRWIR XEzAHbNuktErRH6omRSt ZXJu IC8+OP1aRZMpFlcscIEx n3L2nTO7Q84owm2fWOmh hCB1BNJcNgVzfmifp3ge zId9LSepMmwjEvWf QWKjpT08WOV3dY50Cd26 dISpkXDjx6gjnRi1AxBn HADdZOH4lUsiBZgzt7Oa EMLnT06zaOZen9A8 IGNvbGxhcHNlOyBlbXB0 kA5cRPtybcykq4npwxty Rwh7mb77iJHug0N1xKC9 X1ZaynH6KVWlqXVs ZfzkoVTXoA8curbtg5ku xwxwUqQcRPXtFYq3MCq8 LERyeYpxDpAaCY53HAC0 MOIuxwCtF1EtBHLk hVlmMjG2n3E8Lc4FI8ML BbzbX0SBYPKQGEkctUQ+ KV50tj57G4DiDtuvJxh9 PLBjDZJ4fLC8kM5c NFNaXMkhb1T4yTW2Q0Rx ivHnas6nj6mfZWBdQEby E01srWFze1C6USGezMV6 LKRdtAhnIeJsuD39 Oyc+JNDtpYzvk9JwLjeu m9alw4xqgSl4OqoxDCMg cfYkzKtpRVJ5m9HaJq3r ZMVgtFM7oHI3oU7u IeFjUqR0IXxtQ310RlHc aEVoDjjlE32fR0YnbEK+ YDGjYfp2WRUehPlbHB8r H8JwGKUcktedtXGr pBryHB3wMBRvdvapRMXw zU8mEXIhE0e2KeFrXaI8 USfhE9AoEZOpnuhbIc31 pK7uMhMyJxV6NGql G5VjukL7ARBheEXiRCsc JLZ4Y86ln4L7BAVtRQWo XZF5yQZ1wN4wkHdaszuf bGVmdDsgdmVydGlj RBmtQUbbI395OVFxpFng PkNvZGluZyBEYXRlOiAg MDgvMjUvMjAyNDwvdGQ+ QTKjWEQ5oBfbVBAc cOYkFNgqIh0qhTtcwKie DJ8iBSKihtyiPXAtuB3g ULEaeOBpcTwaWO7cEXOy flpzc801MhAaHOU3 NNDirKZjW2ChqZ8nZmRm HTKtGFQyE0EneVZlRCsh V354IOrySnL1QGTnazKb I1GzAMYqfLbpZjU8 h7R5Lr2Kl7OicgocR6Bm zOHnKhFwFovdEXd4H5Ol PjwvdHI+MF11NJHbCJ64 ZFe7BQK0vMzwJQmu DXCpJ8NebP8nCdJgHIEk ZGRkOyc+PHRhYmxlIHdp ZHRoPScxMDAlJyBzdHls KM4mOk5rYLKsLUTg lRwriXMuAjWcq4hdKVXj LZlgIM9cxHadN0PhrNN6 XESel8c2Qg77B75rA1Ts dXA+LBDmrSB7oXR9 kT6iAoYxYmS5HMouE941 GsTlwBNuErzen0ptb5bg aBl9IiX2TVJclrYpxNtf TKN6h0LxYw17X46r IHdpZHRoPSIxNSUiIHZh fLstla0fjE3fPy3+PGNv vYI3gPW0sB5wTxJaLvV6 JAelQ428AlTvxCQr Ghbje4mlz8rwhAk0AcDg FDVieaRvaXgkRQY6v1By Gm38B0DahBzau2MiSux0 wk67pIRsr6F9zVJ5 T1JlLEAvchwnqPYtkFly XI5jMQJmhdtvGTLwqJ5l XLXiC6s2FgTzKcA7RXdg E7YvagW8XEHueAVe CXCyiHPVhW4ttwlib9im kizeGsPuCCVuEOv2KTp8 FXNtfVwxPcWeJIT4CvD7 ORN5uTQmqC1toAjz ayhmbU3dDdn+VPS7aFSg iBPDHW2mLfgyfZO+PHRk POA8zQejQMrwBSEonM8d LGHuQ3m9OrAgRmE8 LJttK5UnyaW4KLToqXZb CUWeuSSCfB3fxsbyd3ws fopsByXoXXRzKWq0VWs6 LWFsaWduOiBsZWZ0 WbY9DOB5vSGpyY4vuSve mijrwK6bTcp+QmlydGgg MMQ3YUg3E2YnOzi9EIHz aFimUC0xoACiVYww Gh2isEedrMlsBO4mTVCs phdal835PjEmh9hkJXWo yXUbDNgtHWQ1J41cw4I1 QHUjERZtJTP3tFJ2 iP6biQxadkrcdNBceBou fzMalRsbWOgfHGtiQ193 RPYjgZykFaQpROi7H8Zx Zme4DOHmqZfqCA3v hVUkXMtdOy2itEagaHsv VG2nPJOkewurz909YpQh o5ivECRpjNLtMHvmDII0 J12gz1M8OJMhPYAs QWV5tGY1mT6ykEnjvkqh bGVmdDsgdmVydGljYWwt UPwhV136CCCkyYkmXwVz wPk8D6QhYxa5NWMx sVybMT6fcIAiKSdwBs7f lMdnoCncXP6qRSXqjhpx n116FfLbd2tzTCIjpEBb FOqtVWY1Q09xy2X7 WEBrAJKzRRJ4kHU9pE1b bGlnbjogbGVmdDsgdmVy kMboUFmjXHmhL248HGYi cDsnPlBhdGllbnQg SKnpPYy0R9FuWjaanPM+ KX14NFEoGE44iJVfsKPp t1xhoZj3SaOgEMCrFDP6 xAegNHari2ZmLDBm E39lfHJyo7Z9ZXSjgDhk vKAzIpHxwWA7oL9fPVbr qotzl2finsbeDoptz7ve yu61hQ12E58wPIlq ZHRoPSIzMCUiIHZhbGln xc6fkY0iXu0+PGNvbCB3 yQC7yC8zOMSvVbC8VEfu F579AiOtvLRsQjnm p9cnb1ohrEu6VbY7JOSh lxZxvVflHXG8q6AcMh32 Z56wBUeeWXNuQJIfGRRr DKJkbVamqi2jdV2q Ii8+PXVmvRU6kLV9lZ8v FyMgSxZ4XRdzS427VyUo sWHkEmdbN29bJ2NnzOG+ HVAzYvx3UPPjpRhz CY4hlIGcIBztOm2fDTT2 UbMvDrKsWSuhC9PiVIFd eyxmsczojUZ5OZWqOFVd bD87Vp6wgDacSZOi kHYDrT6zujqeu3bbeoil DfXvXLDdPHp2CVu5MOSh cIziZwOgRPF5QwI1MTR3 mRXozX7juIijjdwr kY0eT7LmNROakxghCk58 qB3jKhBnRbJ4VGpgMle+ A2CSGFWFWEOTRRmeDIXK SMFDQW04QN72sNWy i9J2uWV1S9OkYINoptae iawihLC0BKCtZXYwuF98 dIVyIUvhKw1cs9J0y542 MXYaIEJzpI95Fe0d fWanLQCvuQKBsW5mphxw q5gtckmiYoNeLFPoRNz0 FCt5PJDhrRiaGyXnEAB6 ThG1FUY3eYHptY8g kKursdpjaK6xQdd+MDEv PVYqGXe6KonsnIC+PHRk YYU6iFfpOJywZZQqaV4m FQJtS1s9MjMyEiG7 ZZahV4NaLLWvkdosWq26 dV9eVqMdMaD7WCerK0Lf hpS5AJCvoQOsWGduDKA8 X04os6I0XXJqNZVh ZUB6sXS4uG5uzIlqmkoy bGVmdDsgdmVydGljYWwt LRmvC997FJZcrHdvSkfi TZqxRJIkPL87YR24 ySWhf7Y4tFL5W9EwSOKy sxrqfgwwgFN2SGIlJNLg qZ13jIWfSZysFd2zf5I3 l514QZDkKHIioL17 Br6wwVikSBOxhLFQsH4c jjbkl3owejeaAtBoKSBq PSk8KHh4OUJjySzcGbJg KNP5XkG7ONI3tGKc xH0gsMroeqhwsT3oShp+ TUFMRTwvdGQ+PHRkIHN0 jNtgXBdvZVOztU2mSTXg Y6o5ScSzEfV6HCau E9QzIARymlnuBy08yS1o IdOcQkC0PGtgH2BegdY3 FFSpbZJyHFyeLCS6C47a s0X2ACNwVZOiFZD8 kYH4kQ9vsYqodyypuPCh dDsgdmVydGljYWwtYWxp M267UFUbbGjfUrNgN1Az cmluZyBPdXRwYXRp NR20BH34GM33J7BzYjfk dGFibGU+PHRhYmxlIHdp ZHRoPScxMDAlJyBzdHls VS1xVd1lRKBlXSTe lGimtSNeYwLkp5kcWYQg ZKsxHL0enFtjY6RipFJ6 JBLse6i0Or32U76tL3De dXA+LRBsgJK3cOK4 eT6vBzPmIjY7BBbzM245 KyHmeAXmGhflh4ptn0ce zCq8JdLaNJWwecTkySze XVH6g7ZoOr35J45k IHdpZHRoPSIyMCUiIHZh cKjnrs4gpV3hDq7+PGNv dVL0lOO2hG2qQrCmMlI6 EEtoO878PnAyyBIe RmbkC27cG4ZdsAM+PHRy Xec5WOOiiXtoHI2idWPh TCpeJx3eGCP0IvZyQfDh YZvwA3NbPEQsdvfs xslmdIH7KHVdOMOqgN31 Oo7pfQnrJu1yCKFhNGJ8 TNTlcZCoL0PgtJ7jWcXc SCWgOFMdP5YivBNl WBkqL964TUvdTcT5TDAj fmJwD3MzDNPilVmrUmY8 w8A4Hf6SrXotxTDxBR8s FyIyEGu1X2NsFct7 BDHriWqqLB1sjDHpFVcu El0haKowpSywYA4yUMMc tognm231GbWsr9ktCTPo fKMwJPbnSLY8G56s b2J5DGAjOULzUFT5kJG6 gY7onObkqywshKLmuBvm wkHqbShxDSnqMBuaM274 IHRvcDsnPkZJTjo8 Q8DwZyk2ANOrdDfnEF7u yJZjKVceKl4ucPvpeOaj HN0tNMTvxrtoy531UhMy a2dpSCAqfBExMWnu NTL3J68bt8E9VPNqEWUt PAF4hTN3sP4oiXwbwcrf bGVmdDsgdmVydGljYWwt PRwbQ751DMUudUgc Ue8MQuc9R3BtKii1FEOw cRbmGJ0rmQUoECyuJr0q hHxzsYpxDA2oIHBkcbhv m239VzWkw7oeEXCl zLMfZEfyUFM2O92nv9T9 FKFgSEMrNDS7qOQ7zU6v bGlnbjogbGVmdDsgdmVy hEsuVMqsPHeuR168 IHRvcDsnPlBheWVyOjwv dGQ+RX58nf22X1SnZpmi Bjw5LPYcHTX1yAO7hR0i KREuUDerx0S6iQG5 J2J (more content not included)... [facility] Provider Orderson 01-29-2024 Provider Orders [id number] [email or web address]on 01-26-2024 Coding Summary HTMLBase 64 AkpvwubiJEs3aZx+PGhl YWQ+ZC0NPOYxE15vpKAr uA0pS8VHAUePLlpsTHWR YCtYFnYcvnFuMZ3auYJr ZXJu IC8+AR8fTPVsDcgduYNr q1F2tYN4Q00fge1yRIpg qMH4EGKtNqWwvhjil1zu mNn5AGzjZtziVaJl USOipL17ZAN6nL36Cj27 mMYxhZCed8dsiYd1IkEd PWSeLHE0cPyoHFlvk4Rb YHReE86ldUOur3P0 IGNvbGxhcHNlOyBlbXB0 hV2nGEklgseee8blsagg Ueg7ar53dRPgc1C4dEP0 K6IpgxP9AFXeiCGa DqqjqLTBlF1zfmast0yb yqrlYtTyPIHsNZf0NDn2 QPHmhVomJpOsXH47JPT2 QJLeafYfJ3YwYNUc rJacHvT4z0O6Bi8UP9CG QcefG2BFRBEYVNuvfOM+ HH11ik04U2UfRnutPkq3 BPAhNUS0nWJ6aA1u AZGhHMfqp5P7pZT4S6As nbNzcp4kg2dcBPUtTJcn J09fnLFee5K3XFMyoPL2 SRJanDnoApQpnA08 Oyc+HLOgnVrts8MpCjjp z4arz8kuyQz0TaewLHRd qbYmmLcaHJP4w4GdEi0h QVAjnOM4kWN8tU4b FxJaSdT5DRxxA711VtJv iLKaGsixV94uA1LusNZ+ EHDjRpe5DDLvgKrbQT9v Q1ZlDIAnachucKBe bMqmZU0pUPMvhwebJGIi mW5mFQAuJ5e4JmHxUqJ9 NSmuX0EtUSDwkyvtDt54 rI0bPbCjCnP4PTze Z4CdawJ9KBZqaCJjRQef KDC1U70vu0W3WVEeLOYa OOO7sEL3xQ4dsQkmhnwv bGVmdDsgdmVydGlj JOqcFKilX702WQBvzZbp PkNvZGluZyBEYXRlOiAg MDgvMDkvMjAyNDwvdGQ+ JAAnGOK9bJtyIOIe gHBaHFuuCn0rsWfjnKxn AO2zYCGbbqekEEPwmX4g SKSxeHPqfYyaIU6pPGNa qizgw059QuBzMEV0 MZVfoLZlW8MasL1qGpLz VIEvERKcB1ZfdBLgWReo S973MRiiDuJ1EKKoevAm V5YfQLZsoYowXcS7 t7F2Mb6Ow1RrtqytE7Ax xBIfEdJxZkakDWu9O7Kv PjwvdHI+KR89MTCdHN04 PRx6UVY0aVfnETss PTTtQ6SorU3fGnGtBRDn ZGRkOyc+PHRhYmxlIHdp ZHRoPScxMDAlJyBzdHls GC0iRm3gDRTmSKAi mDiksNFmLxQol0nhPZOt EWpkKA6pnVmrO4BqlWZ3 WDGmg7c7Lp54P20dE7Tr dXA+IGWbsCD7tRY6 bF2mBlWnFuA8LEttH544 YnLwvXFqHgjmj9anm7tu tLv9PtL9HGXfesNuhDzi OKE8s1XaGx43D83f IHdpZHRoPSIxNSUiIHZh hCljpa3htU2zPw7+PGNv dTP1qYZ7tH8wIvBuDlM2 HThcY212PxWvdDXh Zbeoe7xvs0ikbTi1JfOm VCJyxnVtvSiyPZB9l7Dm Qo21C3MziKmrh2PdPvo2 ez75nRVca1H0lAM3 Z1OcKZBxwnqskPUmfBqu DC8qUKNxmbfvWFTqaL8v MYTaK7x5EwNaWiK3FCjp P5QtunN8CJWyjEJk NXQhsZEVmZ1kylxza5mm cqyqKvMjEQKwJRk4PMc1 URSwxJgdNyUcFJO5KeT3 PDZ1jCIkvS2jwPfi zlwnyT0eNzl+QNO7fKHd gDIEYX6hEanitGS+PHRk AGB6cFerRYsfLMAfbS3o MSZuD0n3HbUvTwM8 ZHjnQ2QcfaV9ZZSdcABe QCPbbHVMaL8wfmrgf7ni qqsjAiPbNMJaSFx5QXm6 LWFsaWduOiBsZWZ0 YuI4FDR3zKWwlB8ndXvu hrfsjQ1vGfj+QmlydGgg QUZ8VEx0X7XnKar7QCQp pRbeBL7svAYrRRbw Cq0dlHjbtGvbMS6oYDSy ucrky292HhKjj5krABFh eOVqGCevQBV6Q22ky1U6 YSScUIKgIXL5bTS2 oO6lxIdftakcqUXedAlr vpFfdEewKOdjPAqsX682 GOSfcDeyLeBsCIh1M4Ft Icv2OPTqoJitIJ4z qEVhRQaqZo5qfGwtrTpy PL9zGAZvfrldk090JdCj z1goYKNwsXJeWCdmCTU4 Q77iq6T4YVFcOBXy QLW5qKL1mZ0uoUyloafh bGVmdDsgdmVydGljYWwt AUaoS075BNAjlZveGvGs zMq8V5LgVhm6MKRw bYcdRQ3ikTJbVAmpVl8h cPumhPfnHE9mKENmoxev w655OfOat9cpUPHvlEWy ILjdHAI8N64in2G9 XCTiEWMkEAX4xML2uM1b bGlnbjogbGVmdDsgdmVy uGhsFCilIPwiR797ULZg cDsnPlBhdGllbnQg BEqyORd6A5QxXqasxNU+ UG92LPEvUT81oOTvlGQz r0fmoUf9EfBpYQHnFGX4 pGjvUPpah9JbXWSa L30gePYlg1Q6OAKyiCnj hXEhRvYljVS7oB2mZOyk fqtxw3jisurfAzlrx5kw jv17eG08Y04aRXnr ZHRoPSIzMCUiIHZhbGln ch6tiV6eIq9+PGNvbCB3 gIF9nC1kJAKtIgI0STck G764TaObyITfDbau t4qsq9yxaOq0VbC4DXCg vfEdoOmfQPT3u4XpQy94 P49nGGzrAZJsNQHfBVXr WSOduRkkfo4whR7d Ii8+TXZwdJR3rIZ7hV0z AcFtJaX2LYcjB958RjYd gZHuIczfY09iB3SozLF+ VARyBhk2DSKzsLlh VI8zbPHsWOjmGv4bNQN1 XeTgDeFqSVzrT8ScMOWs vixufudcxNY3BHSgJDIs wP41Le1fpAyxMMPp qZMMeI4ujssml9ksmlnw FvRmGAHjUPy8UZe8GPHd zGuwCrVyWGQ5ZnR5RGD5 iBPaxC6hsElqdjsi kL9lD0YcJCFrjwikQm49 uQ3eKaRlVfM3RAcvObp+ H1EQEDTEZQNNPGqtXQYF XYFDUO51YI80gYLr c5R2wJN0D3FkVXEovtgd kbxjbXO1ODSdJRGedB98 hKXkMSxuRf4dl0Y0i039 BHHrHZMckT18Pb8r sZjgXDOvhUQLxF4ynjyb a6cegrjzOdQkDKEpXAn1 KOn2HLAuaEooSeVrSSU3 FpK6RSD4oNWjuB1t wJozdlpwnJ2iNgi+MDEv JDTuNHi2TlnntAA+PHRk UJO2fUedIMabZMRbuG0k PEEuZ5t0PeEcXzF3 FVrwO5BvBXBsycszQl83 sW9yReEgFpN4FYipI4Zp gtA3ZRAlmSQlHEctMMB3 W76ub0O1PQKnTXHx WWY5wGT0nX5kcPdureif bGVmdDsgdmVydGljYWwt DTjhY175FTQjeDopSjbr VGiwXKRwCY21IQ71 kMCyu0R4lKQ8L0TiANCv oebbhwkacRS8POOfLOXi uR56cPKvEErwRd7mn3I9 q345NUAfBMRwkX36 Jt3ocMikNJEepCRXmY1h xwusl9zpkdbqGvTtNTAx RVw5CHf0NDLozSexKxTf LRL6PkQ4AHD9cYGl rB0xfLaujalxdP9iYpr+ TUFMRTwvdGQ+PHRkIHN0 ySrpWWkeQGYcqL9pYUQc U6o4GfZcKrW8ELsb V2TkPUEgauuxKy02iH0z BcSkUyT3GTfwZ7FjllG2 XCYkzZDrSJcbJIT1C18z z6V6MMZzRRDkUFX3 mTE9rM1xtIcisjuteQGy dDsgdmVydGljYWwtYWxp L341XIFxqSzfIdShQ1Yc cmluZyBPdXRwYXRp ZV10HA66LB19A4EdMcpw dGFibGU+PHRhYmxlIHdp ZHRoPScxMDAlJyBzdHls VK4pLc0uCXIiEPDh uJbzwBUkXsEmf0meFRZa ZWkaEU5ejTqhM0HapVG4 GMBfb2l6Dw03I05tN9Ou dXA+BELumAZ3oVM8 pG7lSrHsBpY5RGhrV424 VnPoySQtLmhdt5lbs5so oJa9CnGbCSZjaiCqnAuz ATE4g2GrBp63K06u IHdpZHRoPSIyMCUiIHZh sWplgo1qjC6bQl7+PGNv jHR6fVS6rZ8kAsRjOyK4 AWgtR062HkAjbJSa AwbkA72sE5DzuFL+PHRy Npf9ZSGgiEvtFB1haXLj CZrwJv2oINA9MaOnYfPq VZitD0SxMQZaqykj agkyfDK0HYRdAACfiF35 Pb3vqQnxBg4rLDArMWP7 DDQzjDGnV7LqpG0qYoZu TWYxABVzC7ByfQDj UPmzX665OScbEmN9YVLu cpOkH7JlVNPwrTlrKsO2 a3T4Lw0LoSocoZFqSX2i BvAkHUq0S2TtOfd0 THUzbExqWE8eoJQbDXrb Ee5giUzbmTuxZK3aQYYe wechy760UzYnk4qmWCXd gPTnJYtaAHC6Z31j c5D3XILcTGFoNEU6oBQ8 kS6oaXmrqzuewZUgnSpq fdAsrZgvXMedLGosT488 IHRvcDsnPkZJTjo8 O9CbHpf7ISLzrYxnWS7t tXAwSPlvPv9dtNxinSzs MK9kLLOhaqfqn109HeQz b1vvMZFzsFRuTMco FBJ1E82hz6T1GHUpQILg JOI0uML0oX9tiJyydoaw bGVmdDsgdmVydGljYWwt XQspQ496QEYqgEpu Ao7LMcz5Q9FlBey4SDEc jBnkCH0nnAWhCBmeVc5s xHpqpHskRB5uOFIbezol d944KkGxm4nbMQSh zGIcDEhvAZW5M50ip0G2 EOWeBOAqYOJ6fVL0oS9y bGlnbjogbGVmdDsgdmVy tTycUShxFIvdF174 IHRvcDsnPlBheWVyOjwv dGQ+VR02kc49O2XyDcrq Nyr6MYFqNSH3uYG3xA0z FDUkJNypl0F8lAK4 J2J (more content not included)... 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 He is also undergoing physical therapy at [...] subcutaneous francisco javier (more content not included)... [facility] Coding Summaryon 12-12-2023 Coding Summary HTMLBase 64 GhbofwzfFRg4kAq+PGhl YWQ+RM9GZNMsV70ruVVp bP9pK0WNEMzVAxfzDPGL ANoSIdOmqtIwUZ7orNIw ZXJu IC8+JL6uRKHgHpwkrCKo b8N2eKA3C25ykm0cRZqn fMQ1HXPdFyDvvyivv3ka hGg0UTqqNmwqVnTm ARMyeG08ILQ5eV41Nq11 fBWveZLgk0xmfJe2ArZd CWStKHI8hIpeVHszr0Tt ESGnC81ozPPva4P3 IGNvbGxhcHNlOyBlbXB0 uQ5eVNkglnzjn6bonxxl Qxs6zj04mPRdi9O9pVG1 O8QfthA4DWGghTCs NqdvnRGHsG8nmhmhm6nb drtkGeYvYNZnUOd8IMb9 VWFciGonCoTzSM77ASI0 JTSqhvHdG2RsWKZc uUxpNlG8u9F3Rh4YQ7GV BxqiP1OTCYSLCArpjIF+ MT54nh37A2KmIuumKjy0 JMLlZSM5lUE4tP1x XRNqKTuaj4Z1wHU3D0Np fvEovq0cb1tlHJFlLKsg N69wlYOpo8U1TXGizOH3 NKUvbAumZiXtgR69 Oyc+AALfhNtfn1OoWjpn v9wzj1zyjNn1IxzaGFMs spGqfRddPSA5d2JpYc9u UXIeoJK2kFV2oU1h AkNtOqR7DLzdK802IuPb rUNbKijtM24pS7EacWC+ QTSsGkz9CLDlrBorXJ8i O2NzRPUvcwhuyGPc yOuvSW2iIVVqcwtcCDKs zP9hHHKqK7a5NmPiAlP5 CXsbN4FkXHUrfagqTu67 eV6bVyAsFbQ9ZJcz Y0BqnsY3ZYHfwONwRVwz UTM8G56is6A1ESQtCOWt RMF1pLH0gB6hqNsxlexe bGVmdDsgdmVydGlj TGmrGNhsY500UJLltOeb PkNvZGluZyBEYXRlOiAg MDYvMjUvMjAyNDwvdGQ+ UGBpGVL7pPsgVWOx qHEnHQtmHa7xnYbvyIky SX9vZNCvpsnxWGZgtO9n CIHywAFheEbrMF7cMYFf ojjsf507FdAtHWR3 TVEnsNOmD3TriY0cBiGt MNBgGQEuI7YhcOIfVAcv G668KKheKcR6WDYcdrVr G0UlUKEdvLswJcC3 h1W4Xa4Tf9WkcafrL5Bl oQCbYuQoWtxePHp1K0Wo PjwvdHI+NP89EMMwYE28 WGh7NMM7jSumAKpz JHGhX7FpfX7lOdQyEBOc ZGRkOyc+PHRhYmxlIHdp ZHRoPScxMDAlJyBzdHls PQ4hRh4bKJNkRIZi bVcmlEXnWjAeq3phVDDx XMwpOB2ofLufK4AoeJK3 LQHuh6o0Qw58C60nY5Pf dXA+CRAukRZ3lDU1 mQ9nJiSiZyL8KXzbK327 DjQrcOIjGvxth9tii5hs nLw5RqW3XKTimhDmqGfm FGE2u3EpAo88Y05z IHdpZHRoPSIxNSUiIHZh tPeeye6mlJ2kVs3+PGNv vTE0vYI0iD8mKuFfCwG2 AYbfM769JhGjiZGj Uybbv5wua7ujwQf4TyCh LDIjfzMboQglZRB2y7Ce Tl38U3MwoLwum6HbTwy9 ur21eMRvu3W6nTV1 I4NaAQAsvcqtcQChzYpg ZH1zNHNjltzvKWEhoZ7v KXUcQ9g0VrYhJbY9NGxg C3ZocbV1GOKxdTHi CCRxzLJVqG9cymgry4dw fjqcZmClCOIiMKz6RZz9 DWMpoUulAlRfGVU3SdX6 IXN7rJRrkU8ivNjr ubqyhB7dPot+GNS7gRZh wZVETD7vBqllrIE+PHRk LHD5vXjgMEyoDDXxyT3k RDYcA8s3YxLxWnV8 ELffV3UwugD7EEFhdAWt NZOicVQOgP0majncr0jk lcykGaHwTYJvYVe1WIs2 LWFsaWduOiBsZWZ0 UyO0PZE3aVLjsP0daSif hvrnzD3aSuc+QmlydGgg DPX9WQp4N6SfFdq8GYTi sZbhRA1pkUYzPFqi Ue6foSigbKtpTY2hDBGy sjfer685TkQfs8hbGXFy cPAkLWkjFJT1N25yq3A7 LYTyGMQhVLP2zZH2 hV4ckCrgzsoceFRkvEqp idCfwQwnPDfvJPpwA720 SGHllUukQfKiKCb9G5Ch Bzf1NPMwqPhcEU0v uKRzYYtfVw7cvHrfdYow EF5cLVUhnowmv308GbQj g7qdADWmoRQmTMuxWAQ1 Y24ht4V0NWGwMDXb OZI6sRI2lW3ucUlzudeu bGVmdDsgdmVydGljYWwt XLbrO794TOAqjNcyMbNp qSo7I5MlBjs8BCLj xVscOX6xmSOiQXecFx7y nJamoOldYA5mABJltfxq y268DyKak8vlEPPljHRk VRffSLY8I71ik7B5 RWMdSUMdVEP3lYQ6uQ7n bGlnbjogbGVmdDsgdmVy uDwdNWwoMYodM250ENFe cDsnPlBhdGllbnQg QRlaYNm0H9HfPhvdvTL+ OD41YEOfOL03fEPpmSJt z8htkFn5EyFgIOVcRLT1 gKkzBJsdt1UdORZc U96muCZqc9Z7PBShoYtm aIZePdPjnPU9dA3sXJfn pewjs5oyxxjcViikq7rm wo30hX65K45pJUzf ZHRoPSIzMCUiIHZhbGln zk9mgS4rGp7+PGNvbCB3 uRZ9lT1oJRAcAfG5PZdy X096AwWvoGLwXlwo x6jlu0fmxCr1VeA9UOKn jfPipCzcBDZ2f7ErQd27 B16fKRtlFCKtYTXsMLAn BGHitNxusy7gzP8o Ii8+HANevNZ9cTI6tN8n SqElUnS0QTrzA374BxYb gIPwNakgK13lL2LeaKI+ CNRfWur1DNFdiBpm ZU3gyALiZSyyLg5nGXC9 KzCxZjGtGSarI2GeUKUi sskpdygwbGG0KTEjNBIc lX74Fw4qaFegHPFv gAYIrM6kspmbc4dfhtpw JiFuUQDrPEs5HBg1VMKz qUjkUeVjCQO0YjF2VHX3 mTTjcY8cyFniapob aM3kO6DwLOWhjswyMi51 hB0qYtMhJnK9YMzrTve+ N6QMGJZCAWXKDLedFJYB LPNBQL58HM90pQPl v2D7wBK3S7EyYEWvicdv oflsqGE1RLQiOTIisR85 nENeICctQs5hs3W7h140 TDVsTAKpeA62Yg7u lFxoCQFvzYMVoB3mcrrs d3khddijKhQeFMEdWHv2 OPg2QIIooBsaWxZxBKY8 ZrR1IRX8cFOfhM9k yTtzaiqxqB3fYcc+MDEv SBXsEFo8QcmwiGM+PHRk FPC1zYwtQNspDGQovY8t EOYdZ5k2PiNjHiB9 FBrwX0NhPOFzbnuxGo30 zB7aGoByAlR9LBiaM1Gb tmY1VBZliTQrHGfzKNJ7 L69zc4V9PQFnEPCg BAH9rBD0aO6fuLsdefet bGVmdDsgdmVydGljYWwt DPqmY879VSJvcTezDmfs FKxfGYPuJA88XW85 oISmu5O2vNK5T3ToZBJp ogkpizgtsEE5JLKhATGj gX82dIAlMYqnXo4sg9Z5 k200NQNcABBrxE37 Ux5gpRbqYXWxiSTTaU0q fzzcc2uqfzruEyLaKANn DPd0QFk2EVShyRcwZwYw GAP3NwF1FPC5wGUu sK0lxYirxchftO1mOgg+ TUFMRTwvdGQ+PHRkIHN0 vYcqNApvDTRfzV6cOHUm O5c6CcOwHvC7GRxl R3PeZTJeocyiXu92sL8h SfNkShV1ARjrW9BohhK7 TNDnqXFgJUfeMZY6L73i g9E5SCKiGHVkNTN5 mAN5zP9adLhjwhmtrUGu dDsgdmVydGljYWwtYWxp I299GIJztOstGwFjQ0Qu cmluZyBPdXRwYXRp GT95ZM15QK88B5KfIhhc dGFibGU+PHRhYmxlIHdp ZHRoPScxMDAlJyBzdHls XS9iZa8vNGDsQEEa yOgwmFZjBcQbh6ssQIQx JOaoQH1prXfiP8AlbUU3 AHUtb5q1Fr32K47aW7Uk dXA+BSHapPX9zIE9 bX9oLdNaVmR1MBsyY857 OxBhnTZtYqlxw5qsn0wv iAd5UkRqJAPmgfZvmAlj DQU3h0LuXd53R47y IHdpZHRoPSIyMCUiIHZh rUdajg5myZ8mMc2+PGNv rNE4aTE4wG5hBtFpTrC2 NKmiJ503ApPezGSq AlcqE56jW8SmtQH+PHRy Fll9FMMswTpaDD6sfUHt LLxpBa4gJOO6QvShWlPr YRhdC8OxMLBjdtek orfkaTA7BZAmYIJhkY17 Rk5plUgdQs3gXFNrYPR9 DHGzfVHnD7IxoX1oDjBh DBFqFZFdO0YhcKOa NKtnR898ANykFfI1WVAr lePsO3XjLIOiuUgzRjY8 l8A8Jz1MeZbacKDoIN4t FaNlFMl5A5YwRkt8 VXGcuYajYC0leRHgBPaj Sq9iiGrzqBbnQD4aLPPk hilcd668QwBkv1qpIWMm kFNjWWqcUYB8Z00v b7P9JMLiJMHsLIY7dGU1 jP8viNophgrklPTqzUki siGnaAmvAAzwDJsuD119 IHRvcDsnPkZJTjo8 I8UmTcm5WAZmdXaoHC6r jXOgZKslGi4psSttsCug AE7mXOZwsmavf664ApVe u8gmHZDgwBDgYOnv YYW2E03ru6M0PCNdQREj HVF2wXG9tT1phZdahidv bGVmdDsgdmVydGljYWwt DThhU950DKTluTzf Yf6PXhu1J3ChEhh8LWSn kZsuGE8xxCKfYKhbRj5d pBswmSfuBC4mXNDbynbz o246NpXof8vsSRWe eGHiMAbeNFA8E71vg0K2 QFSnIEZgPBY9fMF8kI2g bGlnbjogbGVmdDsgdmVy jHffNVeiKDgwD522 IHRvcDsnPlBheWVyOjwv dGQ+WF66pk61S3QgIhux Biv3ITRrJCU8jGI2uZ7z JCLtYGpdm2C9iRG3 J2J (more content not included)... [facility] Provider Orderson 11-30-2023 Provider Orders [id number] [facility] Outside Records [id number] [facility] Outside Records [id number] [facility] Follow-up visit [id number] Richard Boykin 1940 M Date Provider Department Center 10/06/2023 [facility] Jalen Grewal Family History Problem Relation Age of Onset Stroke Mother Valvular heart disease Father Family Status - Relation Status Age at Mother Father Level of Service:01680 [place] OFFICE/OUTPATIENT ESTABLISHED MOD MDM 30 MIN Reason for Visit and Comments: Follow-up [748322] - 6 month follow up had echo completed [facility] Coding Summaryon 09-28-2023 Coding Summary HTMLBase 64 CusnxawuLKv0nTx+PGhl YWQ+PH4QTTVeW19dqTDd dU2jG5POKFvJIiidRZZS MXqROjBiosKgAZ5ggNSe ZXJu IC8+MI9oNFLeQxdpbVPl e6N4qIN4Z46bxg8wWPpt xHL3OMJtUfSknfggu0go pCw7ULjgIugqTfFh PLDucZ36MUE7fJ11Ld19 fBNpdAStk6birJk9JbKq QRSlMTX8kXgjSRaou0Wy LEXyI97yaQRsw2T6 IGNvbGxhcHNlOyBlbXB0 dO3rKKyeunfzq8drjkma Qgt2li84gINcf3B0cKS3 F4JrniC0DIWabFTu TlhdmZAUlG1qbsjqq4zn pivbTwChNAReSAa9GRm6 GGTryEqiThPpUS27INI8 TBRvruFhY5LxWIXj rHylYsE0l4O6Pk2HH9XZ VxwvF0APMLJOOUdnxFF+ CK82qf17E7BtUdxjDdv5 XSVdLAV5tOR7xY7f AYXnFDqna3I9vZP5E4Rv igDgen4gt8qzJPQgKQrc V14gqTXif2G3YUUccTV6 NIZatYnkUqUksV29 Oyc+OFXnrZqtg1FpKnms w2lhv4droNd0RurlNDHs olLrcSefBGQ1z5CfMf9h NZTpvNH3kQK5qS2t HmSbBoJ9XSjdF196ZqUx tTGfCytiJ82mD8VulXE+ RDSsZey6WYIukWkwFN3o K8AtYCFrfuzcwTEx pVehBX4gCSQtfkziMQGu bW3zJYDbM5f9WaTrWsD3 AUikH1OzPECoyjddQt94 nN6jJbVqAgD5MCxw R4HpcbB6SVVcdSPlABhf OJO4J98px5K5CMMtSYVx TSW4uEK5pM1nzXuauarc bGVmdDsgdmVydGlj YQsjNChdI714UDGfdWup PkNvZGluZyBEYXRlOiAg MDQvMTEvMjAyNDwvdGQ+ HXEaMBO7hFjkRIBr jQStWJgeXu0btJwfcFpx SJ6qXIWzoemnTJMaaD1k XZQscWHwsSkzEO0nAMZr lnmhj341FvHiMNR0 XPDgiVBpM3SsbC3vVbBh CZPoRYMbX7ZjaPXcMJxn P656GXgeEwO0EZGnnuTc A6HuBRHgoHlzFyZ5 q9Y3Kh5Ih1WlitjbO8Bq yKFxRtImUgriOAf0H3Rs PjwvdHI+OF65DFEeVZ32 OFo1EBN0fHqtHUjx DTBqA3ZkbE7qQzRyPISh ZGRkOyc+PHRhYmxlIHdp ZHRoPScxMDAlJyBzdHls SI9tNp2yFMPiVBFr rTrhbCVaEjZjq6eoIBEh QTwdKS8nsYpwP7JicNE0 CCQfo6p2Uw06J53fO1Hc dXA+MTHqyEP2oJR8 dU1vKhYcVqD8QVmkQ321 LoJlhTIbRiync7cos1jy lNu7UfD2GHAbxmFekMhi BAW7h9SrGy35K66p IHdpZHRoPSIxNSUiIHZh zQosid0klT0qLp9+PGNv bPE0mEW2rG6fVgTuZdO3 NOzvA065SsKchZPx Pzlyo3tnp0bkjXn6IbVt ROCdftQseNelSDY8n5Ht Gx66Q4JdhXoqr5NzUbs5 gj02rVShd7R9dGX7 L1XcMSXggvsykXNdgRdi YY4mMLLcyarfRVEsxY9n MSOwJ7r6OjOyNpT6MJmh F2VeodZ1RPOqxQEj HCDvuGSOmD3xfxrje0hf vglbNpAmGVJvTFf0WHq2 BGJvlVefOePdPLS9CkR8 TZU4fPEmfH6jyDcj jqizrY3hFjz+SJS4cUVa tVDGMQ2wNkpgwLG+PHRk LTZ8uTuqOVptBBMkhI7r YRLhU4t4OyOqIdA1 KKgoP8MhuaL2ZPZleLGh CMIyhBSBsV7skswmz6rj rbvxScPqEKBlNJy7HVw8 LWFsaWduOiBsZWZ0 FdP6PVU1oTUcbU5njKwt agnfeY6yXjc+QmlydGgg JTQ2YNw3H2JqIae2IONj lPieFS2jwDKbXZkb Jq3buFcqbPyuSJ8kACUu xhiyt181EhRlv6fzWTGd eOLmBUqsMCP9P36ma2B5 TTBuYSZyMLV6bLI5 jZ1ccPnnnhuefIXwpHaz mbOnmJnfGKaoFKquC492 NZZblIyxLrQiGEx4L2Pu Uzx6UHRbbFxjGY3o lUKlEWeoXt0vjTzzlGlt OG7qAFVhrjkkp158AbTm f2rhVTLihMGgTJmgAPT3 K88hg6C9USXyQMKa YTJ2rNZ4pC9slAjziqgo bGVmdDsgdmVydGljYWwt LWogE725MKNinZbnGnZg zBv3B9DvQhu8CWYs rXovUH6svXUgHJycLc5c oCdeaLyfBY9mYOFtyzrm o148LcEjc3pkEJNbkFJy GYtnRRH1R40xl2H6 QPBgFNPuXOX4dFK7sD0t bGlnbjogbGVmdDsgdmVy tDmlVKhgZAspN509DCTc cDsnPlBhdGllbnQg UWwrXAh6G2TfNtcrgID+ VH36HOHeYT40nZEzgOWj h7rajYd0NzQeFUZtOGP9 mZtnNQskb5UtWWNv F37raHNhk6A7LGTlyPmh yGWxEsKahLG5aL1zHHzt fgfbi1nbralkXxflw7uz ly31dC22O65qRUaq ZHRoPSIzMCUiIHZhbGln zp7xbO3eRm1+PGNvbCB3 hTS3xE4iKRMdLzI0YGlj K884FuWgaHBpCrjh a7jjb6izpAi7GqD3XLWs muCrpSfeQYK8r5XaQu39 D81bWKxzVDAsOEJeIEYh ICEwxIbnin3xiW8m Ii8+GXUdbCS7fIH5bX2t QxNwWtK8YWpxL295FzXr lIFzVnlfD68vD7TeoVP+ EGGnEzl8HUAvaQum KP7upYImRNagOg4xPHS2 HdGiAfKqJBobF9IzIKXy zfphoqesgFW2FBVuPYUo lC04En1ddFmdEELx jBCDiL4obvsit3orvjdq QaOoVZYcEGe9OHi9QBOc bSfaQbErYAS2GfR1DPE1 iSSmyG1phRpuwswd eN7oD6KbKJHccoacTb42 tF6pOhNzXgA2SCphRla+ K7RUTEBXXIGOMGdbOALJ HKRRXT41AA32fVOj x9H7gED0S9IgESHqctru ldlyxXW0SHYlHZBxgE73 zCYkJBstAw8zg2F1b325 IOXcNFIrpE74Uh0y wEklZMGyvDJJtR1jrbqd y9ggvypxUdDiLFZbWEq6 PId8PGXwxYorCoYxDEP2 IeT6XCM4lOReoV5y cTfhhbpdqE8wFka+MDEv QHDaGYi3FhailUI+PHRk ZGK1rOulBVbwBLMbrO9v QCXmY0n0DnQaNdV3 TPhlT9JnUVZwlkubCu02 bJ1rHnBuObZ9LTivR5Sz ifM8RRArgRCzEEznIVK5 L83qw2A1ZAVxDIVx JXZ5jCL9mN9ixQdxmjbz bGVmdDsgdmVydGljYWwt KOjeQ323NXTphHkuKxql MAewLLBdTB24HP47 aZKoy5M6hYQ6L5CxNMTy ytikrdpulGO8RKIjTZJn oR52oAEnNQdkSh2el0J7 d383RHVrTTZgkT43 Lt0jaYjcSLObqPDGgK3g qojlx7csnuynCvRlWITz UIm4GHx6RDFrnAswNpVd TIE0IfL6AEG2tHRa cR3vjScdabydtZ3zQcv+ TUFMRTwvdGQ+PHRkIHN0 pTcvZXkhDJXyeI4gLYBo U5p3NcRlIlK6QJso Y1ClTSTpxloyTa25pH3a RuCoZyV0SAjvK0FhkjX5 ZNMbgAXvKCdjQOF4S55g b5F1ADFyKFEfZKZ9 gSX7cT5maTdnnhqhkUUv dDsgdmVydGljYWwtYWxp L787BLGvbTmlKi1IZX57 TL64L4PmBqyrnJPo bGU+PHRhYmxlIHdpZHRo HDjpAHMfDlFzfTzeIJ4n Pg8aSWNsWHUuqHztcACw RaMla3jqYNMkGFpw XO1eaEipT8UvvWE1SIYk v3x9Vc15D73kR1IfwOY+ ZZVvqEU1gFT9mF9wYdEy GpT4EGgrE767DgWj oAKaMrrtr5dda2bfuGo4 IjMwJSIgdmFsaWduPSJ0 p4VbTq19U84qJRfnEBEu PSIyMCUiIHZhbGln iu1evS2oDm2+PGNvbCB3 wPG4hG4aVsCzTtF0CYnp J911IzLvjUQiEgvaU23o Y3AnbDL+PHRyPjx0 YCHlhKpxLB5wvJVeELad Hv8kHUC7AxTzIeArKLym G9YaTQDfsybxnfjixRB7 FKHgAZCjqV71Pj0j kIisBm5bCRVsBAE9NEDt wDSrO0PdvA6oNgZrWWGp MZVnP0HmdGGdDUwoA330 NJajBfF9EYBpxiYv I7TcEJSpsBsbJcJ1u5H7 Fs4VeIaxfIHeJL9mRzWx VEd8Z7RiLrj9OLQpjLoe QU1toWVvVDerEp9c eYuuaHnpZK1vREHufkdf t777PgZuw9erCGDomUHk PUjyXZH0W85gs6Y0GOQs HEDpGXQ4qVC5mY4m bGlnbjogbGVmdDsgdmVy cHkeCFksZOqcG819MPPb mYlsAtUJXgz7E8IeXls5 LYWjxFeyON9pwECq KRxjBr0dxYbmnCzdRY3v YORycfjef985LeMsn8rb OGPswNMaCRbaXGH2E83u v2H6RNBqOEFyMFU4 hKV9pM0moAzcqhjhzLIr dDsgdmVydGljYWwtYWxp U156JXBquQhrBv7HJvl9 F2RfZnf0GLMdlYzb OH5bsLOmBIqtNg1anRwv qUrfWZ0gRDLhgojew801 DdKdg9usYSEocLFuSCas UER5I08tg1P7LHGo LQHgWSB8qHJ5jW2hxGys bjogbGVmdDsgdmVydGlj YQlfCWkwA248HNUhjEnk PlBheWVyOjwvdGQ+ QT20ie93Z6ImItpuOih9 AFCmVBG7oKB2xL1rLAAt POhxs9G9hAO4B2VjgvJe ib5zp8tdYMCaQRck Y29 (more content not included)... [facility] Outside Recordson 09-27-2023 Outside Records [id number] #1.00OTGTIFF [facility] Office/Clinic Noteon 024 Office/Clinic Note Patient: RICHARD BOYKIN Age: 83 years Sex: MALE : 1940 Associated Diagnoses: Type 2 diabetes mellitus; HTN (hypertension); Hyperlipidemia; Acquired hypothyroidism Author: Marj Sorensen MD A History of Present Illness 83-year-old male who recently returned back from [place] over the winter presents today for checkup. He is a type II diabetic. His A1c has been elevated he is insulin-dependent. He has significant peripheral neuropathy and while in [place] and now back home he has been [...] tab(s), PO, D (more content not included)... [facility] Outside Recordson 09-22-2023 Outside Records [id number] [facility]-07-2023 Outside Records [id number] [facility]-2023 Follow-up visit [id number] WayneRichard Dugan 1940 M [facility] Provider Department Center 03/03/2023 [id number]-SXULKGVRXFRANCOIS NERI KEERTHI Grewal Family History Problem Relation Age of Onset Stroke Mother Valvular heart disease Father Family Status - Relation Status Age at Mother Father Level of Service:67637 [place] OFFICE/OUTPATIENT ESTABLISHED MOD MDM 30-39 MIN [facility] Office Visiton 02-16-2023 Follow-up visit [id number] WayneRichard Dugan 1940 M Date Provider Department Center 02/16/2023 3848-MADELYN LORENZO KEERTHI Grewal Family History Problem Relation Age of Onset Stroke Mother Valvular heart disease Father Family Status - Relation Status Age at Mother Father Level of Service:18702 NM OFFICE/OUTPATIENT ESTABLISHED MOD MDM 30-39 MIN [facility] Office Visiton 10-21-2022 Follow-up visit [id number] Juan JoségeorgiRichard Dugan 1940 M Date Provider Department Center 10/21/2022 Opal-DOTTIE GIRARD KEERTHI [facility] Family History Problem Relation Age of Onset Stroke Mother Valvular heart disease Father Family Status - Relation Status Age at Mother Father Level of Service:92087 NM OFFICE/OUTPATIENT ESTABLISHED MOD MDM 30-39 MIN Reason for Visit and Comments: Atrial Fibrillation [80] Congestive Heart Failure [127] Valve Disorder [3372] Hypertension [621214] Normal [facility] BNPon 03-26-2022 Natriuretic peptide B (Bld) [Mass/Vol] 629.0 pg/mL Normal <=1,800.[address] [facility] Comment on above: Performed By: #### B MP, TSH, BNP, LIPID #### [facility] [address] [address] [address] Aaron Ling LIPID PROFILEon 03-26-2022 CHOL-HDL RATIO NORM SEE BELOW Normal [facility] Comment on above: Result Comment: 3.3 - 4.4 LOW RISK 4.4 - 7.1 AVERAGE RISK 7.1 - 11.0 MODERATE RISK >11.0 HIGH RISK Performed By: #### B MP, TSH, BNP, LIPID #### [facility] [address] [place] [address] Dr. Aaron Ling Cholesterol [Mass/Vol] 212 mg/dL Critically high <=[address] [facility] Comment on above: Performed By: #### B MP, TSH, BNP, LIPID #### [facility] [address] [address] [address] Aaron Ling Cholesterol in HDL [Mass/Vol] 86 mg/dL Critically high 40-[address] [facility] Comment on above: Performed By: #### B MP, TSH, BNP, LIPID #### [facility] [address] [place] [address] Dr. Aaron Ling Cholesterol in LDL [Mass/Vol] 98.4 mg/dL Normal [facility] Comment on above: Performed By: #### B MP, TSH, BNP, LIPID #### [facility] [address] [address] [address] Aaron Ling Cholesterol.total/Chol esterol in HDL [Mass ratio] 2.5 {ratio} Normal [facility] Comment on above: Performed By: #### B MP, TSH, BNP, LIPID #### [facility] [address] [place] [address] Dr. Aaron Ling HDL NORMAL > or = 60 mg/dl - LOW CARDIOVASCULAR RISK <40 mg/dl - HIGH CARDIOVASCULAR RISK Normal [facility] Comment on above: Performed By: #### B MP, TSH, BNP, LIPID #### [facility] [address] [address] [address] Aaron Ling LDL CALC NORMAL SEE BELOW Normal [facility] Comment on above: Result Comment: <100 mg/dl OPTIMAL 100 - 129 mg/dl NEAR OR ABOVE OPTIMAL 130 - 159 mg/dl BORDERLINE HIGH 160 - 189 mg/dl HIGH >190 mg/dl VERY HIGH Performed By: #### B MP, TSH, BNP, LIPID #### [facility] [address] [address] [address] Aaron Ling Triglyceride [Mass/Vol] 138 mg/dL Normal <=[address] [facility] Comment on above: Performed By: #### B MP, TSH, BNP, LIPID #### [facility] [address] [address] [address] Aaron Ling VLDL CALC 27.6 mg/dL Normal [facility] Comment on above: Performed By: #### B MP, TSH, BNP, LIPID #### [facility] [address] [address] [address] Aaron Ling PROF CHEM 8 (BAS METB)on Anion gap [Moles/Vol] 7.4 mmol/L Normal [facility] Comment on above: Performed By: #### B MP, TSH, BNP, LIPID #### [facility] [address] [place] [address] Dr. Aaron Ling Calcium [Mass/Vol] 9.6 mg/dL Normal 8.5-10.1 [facility] Comment on above: Performed By: #### B MP, TSH, BNP, LIPID #### [facility] [address] [address] [address] Aaron Ling Chloride [Moles/Vol] 94 mmol/L Critically low 98-107 [facility] Comment on above: Performed By: #### B MP, TSH, BNP, LIPID #### [facility] [address] [place] [address] Dr. Aaron Ling CO2 [Moles/Vol] 36.2 mmol/L Critically high 21.0-32.0 [facility] Comment on above: Performed By: #### B MP, TSH, BNP, LIPID #### [facility] [address] [place] [address] Dr. Aaron Ling Creatinine [Mass/Vol] 2.27 mg/dL Critically high 0.70-1.[address] [facility] Comment on above: Performed By: #### B MP, TSH, BNP, LIPID #### [facility] [address] [place] [address] Dr. Aaron Ling EGFR-AF [place]IZ[place] 34 mL/min/1.73m2 Critically low >=[address] [facility] Comment on above: Performed By: #### B MP, TSH, BNP, LIPID #### [facility] [address] [place] [address] Dr. Aaron Ling EGFR-NON AF [place]IZ[place] 28 mL/min/1.73m2 Critically low >=[address] [facility] Comment on above: Performed By: #### B MP, TSH, BNP, LIPID #### [facility] [address] [place] [address] Dr. Aaron Ling Glucose [Mass/Vol] 214 mg/dL Critically high 74-106 T [facility] Comment on above: Performed By: #### B MP, TSH, BNP, LIPID #### [facility] [address] [place] [address] Dr. Aaron Ling Potassium [Moles/Vol] 3.6 mmol/L Normal 3.5-5.[address] [facility] Comment on above: Performed By: #### B MP, TSH, BNP, LIPID #### [facility] [address] [place] [address] Dr. Aaron Ling Sodium [Moles/Vol] 134 mmol/L Critically low 136-145 [facility] Comment on above: Performed By: #### B MP, TSH, BNP, LIPID #### [facility] [address] [place] [address] Dr. Aaron Ling Urea nitrogen [Mass/Vol] 48.0 mg/dL Critically high 7.0-18.[address] [facility] Comment on above: Performed By: #### B MP, TSH, BNP, LIPID #### [facility] [address] [place], [place] [id number] Dr. Aaron Ling Urea nitrogen/Creatinine [Mass ratio] 21.1 mg/mg Normal [facility] Comment on above: Performed By: #### B MP, TSH, BNP, LIPID #### [facility] [address] [address] [address] Aaron Ling TSHon 03-26-2022 TSH 2.606 uIU/mL Normal 0.358-3.740 [facility] Comment on above: Performed By: #### B MP, TSH, BNP, LIPID #### [facility] [address] [address] [address] Aaron Ling B-Type Natriuretic Peptideon 01-19-2022 Natriuretic peptide B (Bld) [Mass/Vol] 749.0 pg/mL High 5-[address] [facility] Comment on above: Order Comment: Result Comment: PERF ORMED BY: [place] [address] PATHOLOGIST [employer] SERVANDO AKERS M.D. Performed By: #### B MP, LIPID, TSH3, BNP #### [facility] [address] [place] [address] Basic Metabolic Panelon 08 Calcium [Mass/Vol] 8.5 mg/dL Normal 8.2-10.2 [facility] Comment on above: Order Comment: Performed By: #### B MP, LIPID, TSH3, BNP #### [facility] [address] [place] [address] [place] Chloride [Moles/Vol] 103 mmol/L Normal 95-114 [facility] Comment on above: Order Comment: Performed By: #### B MP, LIPID, TSH3, BNP #### [facility] [address] [place] [address] [place] CO2 [Moles/Vol] 31.5 mmol/L High 22.0-30.0 [facility] Comment on above: Order Comment: Performed By: #### B MP, LIPID, TSH3, BNP #### [facility] [address] [place] [address] [place] Creatinine [Mass/Vol] 2.03 mg/dL High 0.64-1.27 [facility] Comment on above: Order Comment: Performed By: #### B MP, LIPID, TSH3, BNP #### [facility] [address] [id number] [place] Estimated GFR ( Ava 38 [facility] Comment on above: Order Comment: Result Comment: GFR estimated reference range: According to KDOQI guidelines, <60 ml/min/1.73m2 is sufficient to diagnose a patient with chronic kidney disease. Performed By: #### B MP, LIPID, TSH3, BNP #### [facility] [address] [id number] [place] Estimated GFR (Non- Am 32 [facility] Comment on above: Order Comment: Performed By: #### B MP, LIPID, TSH3, BNP #### [facility] [address] [id number] [place] Glucose [Mass/Vol] 99 mg/dL Normal 70-100 [facility] Comment on above: Order Comment: Result Comment: Lawn om Glucose Reference Range is dependent on time and content of last meal. Glucose of more than 200 mg/dL in a nonstressed, ambulatory subject supports the diagnosis of Diabetes Mellitus. ADA recommended reference range Performed By: #### B MP, LIPID, TSH3, BNP #### [facility] [address] [id number] [place] Potassium [Moles/Vol] 4.9 mmol/L Normal 3.5-5.1 [facility] Comment on above: Order Comment: Performed By: #### B MP, LIPID, TSH3, BNP #### [facility] [address] [place] [address] [place] Sodium [Moles/Vol] 142 mmol/L Normal 136-146 [facility] Comment on above: Order Comment: [phone] Performed By: #### B MP, LIPID, TSH3, BNP #### [facility] [address] [place] [address] [place] Urea nitrogen [Mass/Vol] 50 mg/dL High 9- [facility] Comment on above: Order Comment: [phone] Performed By: #### B MP, LIPID, TSH3, BNP #### [facility] [address] Cholesterol [Mass/volume] in Serum or PlasmaOrdered By: Sweetie Tomlinson on 01-19-2022 Cholesterol [Mass/Vol] 259 mg/dL 140-200 [facility] Comment on above: Chol less than 200 m g/dl low risk Chol 201-239 mg/dl borderline risk Chol 240 mg/dl and greater high risk Cholesterol in LDL Calc [Mas s/Vol]Ordered By: Sweetie Tomlinson on 01-19-2022 Cholesterol in LDL [Mass/Vol] 142 mg/dL 0-[address] [facility] Comment on above: LDL ATP III CLASSIFI CATION LDL less than 100 mg/dL Optimal LDL 100-129 mg/dL Near or above optimal LDL 130-159 mg/dL Borderline high LDL 160-189 mg/dL High LDL greater than 189 mg/dL Very high Cholesterol in VLDL Calc [Ma ss/Vol]Ordered By: Sweetie Tomlinson on 01-19-2022 Cholesterol in VLDL [Mass/Vol] 12 mg/dL [facility] Creatinine and Glomerular fi ltration rate.predicted panel (S/P/Bld)Ordered By: Sweetie Tomlinson on 01-19-2022 Creatinine [Mass/Vol] 2.03 mg/dL 0.64-1.27 [facility] Estimated glomerular filtrat ion rate (GFR) non- AmericanOrdered By: Sweetie Tomlinson on 01-19-2022 GFR/1.73 sq M.predicted among non-blacks MDRD (S/P/Bld) [Vol rate/Area] 32 mL/Min [facility] - Chemistry and C hemistry - challengeOrdered By: Sweetie Tomlinson on 01-19-2022 Natriuretic peptide B (Bld) [Mass/Vol] 749.0 pg/mL 5-[address] [facility] Lipid Panelon 01-19-2022 Cholesterol [Mass/Vol] 259 mg/dL High 140-200 [facility] Comment on above: Order Comment: [phone] Result Comment: Chol less than 200 mg/dl low risk Chol 201-239 mg/dl borderline risk Chol 240 mg/dl and greater high risk Performed By: #### B MP, LIPID, TSH3, BNP #### [facility] [address] [id number] [facility] Cholesterol in HDL [Mass/Vol] 105 mg/dL High 29-[address] [facility] Comment on above: Order Comment: [phone] Result Comment: HDL CHOL ATP-III CLASSIFICATION Cardiovascular Risk HDL > or equal to 60 mg/dL LOW HDL < 40 mg/dL HIGH Performed By: #### B MP, LIPID, TSH3, BNP #### [facility] [address] Cholesterol.total/Chol esterol in HDL [Mass ratio] 2.5 {ratio} Normal <5.[address] [facility] Comment on above: Order Comment: [phone] Performed By: #### B MP, LIPID, TSH3, BNP #### [facility] [address] [id number] [facility] LDL Cholesterol,Calculated 142 mg/dL High 0-[address] [facility] Comment on above: Order Comment: [phone] Result Comment: LDL ATP III CLASSIFICATION LDL less than 100 mg/dL Optimal LDL 100-129 mg/dL Near or above optimal LDL 130-159 mg/dL Borderline high LDL 160-189 mg/dL High LDL greater than 189 mg/dL Very high Performed By: #### B MP, LIPID, TSH3, BNP #### [facility] [address] [id number] [place] Triglyceride w/Reflex 60 mg/dL Normal 35-149 [facility] Comment on above: Order Comment: [phone] Result Comment: TRIG ATP III CLASSIFICATION TRIG less than 150 mg/dL Normal TRIG 150-199 mg/dL Borderline high TRIG 200-500 mg/dL High TRIG greater than 500 mg/dL Very high Standard traceable to the Center for Disease Conrtrol and Prevention (CDC) test method. Performed By: #### B MP, LIPID, TSH3, BNP #### [facility] [address] [id number] [facility] VLDL CHOLESTEROL 12 mg/dL Normal [facility] Comment on above: Order Comment: 1- [phone] Performed By: #### B MP, LIPID, TSH3, BNP #### [facility] [address] No Panel InformationOrdered By: Sweetie Tomlinson on 01-19-2022 Estimated GFR () 38 mL/Min [facility] Comment on above: GFR estimated refere nce range: According to KDOQI guidelines, <60 ml/min/1.73m2 is sufficient to diagnose a patient with chronic kidney disease. Pharmacy Creatinine Clearance (Chem N/A [facility] Serum or plasma calcium shelbi urement (mass/volume)Ordered By: Sweetie Tomlinson on 01-19-2022 Calcium [Mass/Vol] 8.5 mg/dL 8.2-10.2 [facility] Serum or plasma chloride alex surement (moles/volume)Ordered By: Sweetie Tomlinson on 01-19-2022 Chloride [Moles/Vol] 103 mmol/L 95-114 [facility] Serum or plasma glucose shelbi urement (mass/volume)Ordered By: Sweetie Tomlinson on 01-19-2022 Glucose [Mass/Vol] 99 mg/dL 70-100 [facility] Comment on above: ADA recommended refe rence range Random Glucose Reference Range is dependent on time and content of last meal. Glucose of more than 200 mg/dL in a nonstressed, ambulatory subject supports the diagnosis of Diabetes Mellitus. Serum or plasma high density lipoprotein (HDL) cholesterol measurementOrdered By: Sweetie Tomlinson on 01-19-2022 Cholesterol in HDL [Mass/Vol] 105 mg/dL 29-[address] [facility] Comment on above: HDL CHOL ATP-III CLA SSIFICATION Cardiovascular Risk HDL > or equal to 60 mg/dL LOW HDL < 40 mg/dL HIGH Serum or plasma potassium me asurement (moles/volume)Ordered By: Sweetie Tomlinson on 01-19-2022 Potassium [Moles/Vol] 4.9 mmol/L 3.5-5.1 [facility] Serum or plasma sodium measu rement (moles/volume)Ordered By: Sweetie Tomlinson on 01-19-2022 Sodium [Moles/Vol] 142 mmol/L 136-146 [facility] Serum or plasma total carbon dioxide measurement (moles/volume)Ordered By: Sweetie Tomlinson on 01-19-2022 CO2 [Moles/Vol] 31.5 mmol/L 22.0-30.0 [facility] Serum or plasma total choles terol/high density lipoprotein (HDL) cholesterol mass ratOrdered By: Sweetie Tomlinson on 01-19-2022 Cholesterol.total/Chol esterol in HDL [Mass ratio] 2.5 {ratio} <5.[address] [facility] Serum or plasma urea nitroge n measurement (mass/volume)Ordered By: Sweetie Tomlinson on 01-19-2022 Urea nitrogen [Mass/Vol] 50 mg/dL 9-[address] [facility] TSH DL <= 0.005 mIU/L QnOrde red By: Sweetie Tomlinson on 01-19-2022 TSH Qn 11.52 m[IU]/L 0.45-5.[address] [facility] Thyroid Stimulating Hormoneo n 01-19-2022 TSH Qn 11.52 m[IU]/L High 0.45-5.[address] [facility] Comment on above: Order Comment: 1- [phone] Result Comment: PERF ORMED BY: [place] [address] PATHOLOGIST SHELLAC POLISHER SERVANDO AKERS M.D. Performed By: #### B MP, LIPID, TSH3, BNP #### [address] Triglyceride [Mass/volume] i n Serum or PlasmaOrdered By: Sweetie Tomlinson on 01-19-2022 Triglyceride [Mass/Vol] 60 mg/dL 35-[address] [facility] Comment on above: TRIG ATP III CLASSIF ICATION TRIG less than 150 mg/dL Normal TRIG 150-199 mg/dL Borderline high TRIG 200-500 mg/dL High TRIG greater than 500 mg/dL Very high Standard traceable to the Center for Disease Conrtrol and Prevention (CDC) test method. BNPon 12-21-2021 Natriuretic peptide B (Bld) [Mass/Vol] 2048.0 pg/mL Critically high <=1,800.[address] [facility] Comment on above: Performed By: #### B MP, BNP #### [facility] [address] [address] [address] Aaron Ling PROF CHEM 8 (BAS METB)on Anion gap [Moles/Vol] 11.1 mmol/L Normal [facility] Comment on above: Performed By: #### B MP, BNP #### [facility] [address] [address] [address] Aaron Ling Calcium [Mass/Vol] 8.7 mg/dL Normal 8.5-10.1 [facility] Comment on above: Performed By: #### B MP, BNP #### [facility] [address] [address] [address] Aaron Ling Chloride [Moles/Vol] 106 mmol/L Normal 98-[address] [facility] Comment on above: Performed By: #### B MP, BNP #### [facility] [address] [address] [address] Aaron Ling CO2 [Moles/Vol] 30.9 mmol/L Normal 21.0-32.0 [facility] Comment on above: Performed By: #### B MP, BNP #### [facility] [address] [address] [address] Aaron Ling Creatinine [Mass/Vol] 2.07 mg/dL Critically high 0.70-1.[address] [facility] Comment on above: Performed By: #### B MP, BNP #### [facility] [address] [address] [address] Aaron Ling EGFR-AF CITIZ[place] 38 mL/min/1.73m2 Critically low >=60 [facility] Comment on above: Performed By: #### B MP, BNP #### [facility] [address] [address] [address] Aaron Ling EGFR-NON AF CITIZEN [place] 31 mL/min/1.73m2 Critically low >=[address] [facility] Comment on above: Performed By: #### B MP, BNP #### [facility] [address] [address] [address] Aaron Ling Glucose [Mass/Vol] 138 mg/dL Critically high 74-106 [facility] Comment on above: Performed By: #### B MP, BNP #### [facility] [address] [address] [address] Aaron Ling Potassium [Moles/Vol] 5.0 mmol/L Normal 3.5-5.[address] [facility] Comment on above: Performed By: #### B MP, BNP #### [facility] [address] [address] [address] Aaron Ling Sodium [Moles/Vol] 143 mmol/L Normal 136-145 [facility] Comment on above: Performed By: #### B MP, BNP #### [facility] [address] [address] [address] Aaron Ling Urea nitrogen [Mass/Vol] 43.0 mg/dL Critically high 7.0-18.[address] [facility] Comment on above: Performed By: #### B MP, BNP #### [facility] [address] [address] [address] Aaron Ling Urea nitrogen/Creatinine [Mass ratio] 20.8 mg/mg Normal [facility] Comment on above: Performed By: #### B MP, BNP #### [facility] [address] [address] [address] Aaron Ling XR shoulder RT min 2V*on XR shoulder RT min 2V* [facility] [place] [address] [place] [address] XRay Report Signed Patient: Richard Boykin MR#: [id number] : 1940 Acct:[id number] Age/Sex: 81 / M ADM Date: 12/02/21 Loc: SOXD Room: Type: [facility] Attending Dr: Teofilo Person MD Copies to: [...] Rosado Jr., M.D.12/02/2021 1:52 PM Dictation Location: [place] [address] Transcribed By: [facility] 12/02/21 1352 Dictated By: Cyrus Rosado Jr, MD 12/02/21 1351 Signed By: 12/02/21 1352 [facility] BASIC METABOLIC PANEL 05- Calcium [Mass/Vol] 8.7 mg/dL Normal 8.6-10.3 [facility] Comment on above: Order Comment: No: D o not add to previous draw Performed By: #### 5 0608, 02624 #### [facility] [address] [facility] [place] [address], [facility] Chloride [Moles/Vol] 98 mmol/L Normal 98-107 [facility] Comment on above: Order Comment: No: D o not add to previous draw Performed By: #### 5 0608, 96498 #### [facility] [address] [place] [address], [place] CO2 [Moles/Vol] 29 mmol/L Normal 21-31 [facility] Comment on above: Order Comment: No: D o not add to previous draw Performed By: #### 5 06, 07044 #### [facility] [address] [place] [address], [place] Creatinine [Mass/Vol] 1.00 mg/dL Normal 0.70-1.30 [facility] Comment on above: Order Comment: No: D o not add to previous draw Performed By: #### 5 06, 78070 #### [facility] [address] [place] [address], [place] GFR/1.73 sq M.predicted among blacks MDRD (S/P/Bld) [Vol rate/Area] mL/min/{1.73_m2} Normal >60 [facility] Comment on above: Order Comment: No: D o not add to previous draw Result Comment: Calc ulation may not be valid for patients over 70 years Performed By: #### 5 06, 90230 #### [facility] [address] [place] [address], [place] GFR/1.73 sq M.predicted among non-blacks MDRD (S/P/Bld) [Vol rate/Area] mL/min/{1.73_m2} Normal >60 [facility] Comment on above: Order Comment: No: D o not add to previous draw Result Comment: Calc ulation may not be valid for patients over 70 years Performed By: #### 5 06, 85780 #### [facility] [address] [place] [address], [place] Glucose [Mass/Vol] 288 mg/dL High 70-100 [facility] Comment on above: Order Comment: No: D o not add to previous draw Performed By: #### 5 0608, 36606 #### [facility] [address] [place] [address], [place] Potassium [Moles/Vol] 4.7 mmol/L Normal 3.5-5.1 [facility] Comment on above: Order Comment: No: D o not add to previous draw Performed By: #### 5 607, 41195 #### [facility] [address] [place] [address], [facility] Sodium [Moles/Vol] 135 mmol/L Low 136-145 [facility] Comment on above: Order Comment: No: D o not add to previous draw Performed By: #### 5 607, 60358 #### [facility] [address] [place] [address], [facility] Urea nitrogen [Mass/Vol] 28 mg/dL High 7-25 [facility] Comment on above: Order Comment: No: D o not add to previous draw Performed By: #### 5 607, 55983 #### [facility] [address] [place] [address], [facility] CBC COMPLETE BLOOD COUNTon - Erythrocyte distribution width (RBC) [Ratio] 14.3 % Normal 11.5-15.[address] [facility] Comment on above: Order Comment: No: D o not add to previous draw Performed By: #### 5 607, 37698 #### [facility] [address] [place] [address], [facility] Hematocrit (Bld) [Volume fraction] 42.0 % Normal 39.0-50.0 [facility] Comment on above: Order Comment: No: D o not add to previous draw Performed By: #### 5 607, 65620 #### [facility] [address] [place] [id number], [facility] Hemoglobin (Bld) [Mass/Vol] 13.7 g/dL Normal 13.0-17.0 [facility] Comment on above: Order Comment: No: D o not add to previous draw Performed By: #### 5 607, 12825 #### [facility] [address] [place] [id number], [facility] MCH (RBC) [Entitic mass] 31.5 pg Normal 27.0-33.0 [facility] Comment on above: Order Comment: No: D o not add to previous draw Performed By: #### 5 06, 17503 #### [facility] [address] [place] [address], [facility] MCHC (RBC) [Mass/Vol] 32.6 g/dL Normal 32.0-35.[address] [facility] Comment on above: Order Comment: No: D o not add to previous draw Performed By: #### 5 607, 03214 #### [facility] [address] [place] [id number], [facility] MCV (RBC) [Entitic vol] 96.6 fL Normal 82.0-98.0 [facility] Comment on above: Order Comment: No: D o not add to previous draw Performed By: #### 5 607, 98132 #### [facility] [address] [place] [address], [facility] Nucleated RBC/100 WBC (Bld) [Ratio] 0 % Normal 0-0 [facility] Comment on above: Order Comment: No: D o not add to previous draw Performed By: #### 5 607, 56418 #### [facility] [address] [facility] [address], [facility] PLAT CNT 298 10*3/uL Normal 150-400 [facility] Comment on above: Order Comment: No: D o not add to previous draw Performed By: #### 5 607, 43106 #### [facility] [address] [place] [id number], [facility] RBC (Bld) [#/Vol] 4.35 10*6/uL Normal 4.20-5.70 [facility] Comment on above: Order Comment: No: D o not add to previous draw Performed By: #### 5 06, 85243 #### [facility] [address] [place] [id number], [place] WBC (Bld) [#/Vol] 10.30 10*3/uL Normal 4.00-10.60 [facility] Comment on above: Order Comment: No: D o not add to previous draw Performed By: #### 5 0608, 33964 #### [facility] [address] [facility] [place] [address], [facility] MAGNESIUM BLOODon 11-02-2021 Magnesium [Mass/Vol] 2.0 mg/dL Normal 1.9-2.7 [facility] Comment on above: Order Comment: No: D o not add to previous draw Performed By: #### 5 0608, 08772 #### [facility] [address] [facility] [place] [address], [facility] POC GLUCOSE LABon 11-02-2021 Glucose [Mass/Vol] 296 mg/dL High 70-100 [facility] Comment on above: Performed By: #### 5 7307, 72810 #### [facility] [address] [facility] [place] [address], [facility] Glucose [Mass/Vol] 262 mg/dL High 70-100 [facility] Comment on above: Performed By: #### 5 7307, 24460 #### [facility] [address] [facility] [place] [address], [facility] PORTABLE CHEST 1 VIEWon 10-17 PORTABLE CHEST 1 VIEW [facility] Department of Radiology [address] [place] [id number] Patient Name: RICHARD BOYKIN : 1940 Sex: M Age: Race: NA Pt. Location: [id number] Patient Status: I Ordered Date: 11/02/2021 12:05:00 PM Completed Date: 11/02/2021 12:26 PM Requesting Provider: ALICIA SWEET Attending Provider: ALICIA WSEET Report Copy To: Signs & Symptoms: Central [...] effusions. Electronically signed: Guilherme Abarca. Transcribed by: [email or web address], User Resident: Electronically Signed by: GUILHERME ABARCA @ 11/02/2021 12:49 PM Normal [facility] Comment on above: Order Comment: Check Line Position, right arm picc *ANAEROBIC CULTUREon 022 *ANAEROBIC CULTURE Clinical Report: (D) Specimen: FLUID Collected: 11/01/2021 15:30 Status: Final Last Updated: 11/06/2021 07:46 (1) RT SC JOINT CULT RES (Final) No Anaerobes Isolated 5 Days Normal [facility] Comment on above: Order Comment: Check Line Position, right arm picc Performed By: #### 3 0312 ####[place] [address] [address] *ANAEROBIC CULTURE Clinical Report: (D) Specimen: TISSUE Collected: 11/01/2021 15:10 Status: Final Last Updated: 11/06/2021 07:46 (1) RT SC JOINT CULT RES (Final) No Anaerobes Isolated 5 Days Normal [facility] Comment on above: Order Comment: Check Line Position, right arm picc Performed By: #### 3 0312 ####[facility] *BODY FLUID CULTUREon 2021 *BODY FLUID CULTURE Clinical Report: (D) Specimen: FLUID Collected: 11/01/2021 15:30 Status: Final Last Updated: 11/06/2021 06:31 (1) RT SC JOINT GRAM (Final) Quantity Not Sufficient CULT RES (Final) No Growth Day 5 Normal [facility] Comment on above: Order Comment: RT SC JOINT Performed By: #### 5 0608, 82565 #### [facility] [address] *FUNGAL CULTUREon 11-01-2021 *FUNGAL CULTURE Clinical Report: (D) Specimen: TISSUE Collected: 11/01/2021 15:10 Status: Final Last Updated: 12/03/2021 07:55 (1) RT SC JOINT FS (Final) No Yeast or Fungal Elements Seen CULT RES (Final) Culture negative for fungus Normal [facility] Comment on above: Order Comment: Check Line Position, right arm picc Performed By: #### 3 0323 ####[facility] *TISSUE CULTUREon 11-01-2021 *TISSUE CULTURE Clinical Report: (D) Specimen: TISSUE Collected: 11/01/2021 15:10 Status: Final Last Updated: 11/06/2021 06:37 (1) RT SC JOINT GRAM (Final) Moderate Polys No Bacteria Seen CULT RES (Final) No Growth Day 5 Normal [facility] Comment on above: Order Comment: Check Line Position, right arm picc Performed By: #### 3 0338 ####[facility] BIOPSY ARM/WRIST SOFT TIS KIMBERLEY Streeter 11-01-2021 CT BIOPSY ARM/WRIST SOFT TISSUE RIGHT [facility] Department of Radiology [address] [place] [phone] Patient Name: RICHARD BOYKIN : 1940 Sex: M Age: Race: NA Pt. Location: [id number] Patient Status: D Ordered Date: 11/01/2021 8:00:00 [...] risks are acceptable. Consent was obtained. Timeout: [place] protocol timeout verification performed. MEDICATIONS: 1 mg [...] report. Electronically signed: Tara Hall. 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 Will order aspiraton of the proximal RIGHT sternoclavicular joint seperately POC GLUCOSE LABon 11-01-2021 Glucose [Mass/Vol] 326 mg/dL High 70-100 [facility] Comment on above: Performed By: #### 5 7307, 26298 #### [facility] [address] [place] [address], [place] Glucose [Mass/Vol] 245 mg/dL High 70-100 [facility] Comment on above: Performed By: #### 5 7307, 00772 #### [facility] [address] [place] [address], [place] Glucose [Mass/Vol] 299 mg/dL High 70-100 [facility] Comment on above: Performed By: #### 5 7307, 07447 #### [facility] [address] [place] [address], [place] Glucose [Mass/Vol] 227 mg/dL High 70-100 [facility] Comment on above: Performed By: #### 5 7307, 53919 #### [facility] [address] [place] [address], [place] POC SARS COV2 IDon 2 SARS-CoV-2 (COVID-19) RNA KIKO+probe Ql (Unsp spec) Negative Normal NEGATIVE [facility] Comment on above: Result Comment: ID [...] of Accreditation. Performed By: #### 5 0608, 15107 #### [facility] [address] [place] [address], [facility] POC GLUCOSE LABon 10-31-2021 Glucose [Mass/Vol] 236 mg/dL High 70-100 [facility] Comment on above: Performed By: #### 5 7307, 15394 #### [facility] [address] [facility] [place] [address], [facility] Glucose [Mass/Vol] 274 mg/dL High 70-100 [facility] Comment on above: Performed By: #### 5 7307, 36640 #### [facility] [address] [facility] [place] [id number], [facility] Glucose [Mass/Vol] 317 mg/dL High 70-100 [facility] Comment on above: Performed By: #### 5 7307, 95039 #### [facility] [address] [facility] [place] [id number], [facility] Glucose [Mass/Vol] 225 mg/dL High 70-100 [facility] Comment on above: Performed By: #### 5 7307, 57798 #### [facility] [address] [facility] [place] [id number], [facility] *BLOOD CULTUREon 10-30-2021 *BLOOD CULTURE Clinical Report: (D) Specimen: BLOOD CULTURE Collected: 10/29/2021 23:08 Status: Final Last Updated: 11/04/2021 08:31 CULT RES (Final) No Growth Day 5 Normal [facility] Comment on above: Performed By: #### 5 7307, 05210 #### [facility] [address] [facility] [address] APTTon 10-30-2021 aPTT Coag (Bld) [Time] 51.2 s High 25.0-35.0 [facility] Comment on above: Order Comment: No: [...] THIS PURPOSE. Performed By: #### 5 0608, 90275 #### [facility] [address] BASIC METABOLIC PANELon 10-17 Calcium [Mass/Vol] 8.9 mg/dL Normal 8.6-10.3 [facility] Comment on above: Order Comment: No: D o not add to previous drawMissed Performed By: #### 5 0608, 67568 #### [facility] [address] [place] [address], [facility] Chloride [Moles/Vol] 99 mmol/L Normal 98-[address] [facility] Comment on above: Order Comment: No: D o not add to previous drawMissed Performed By: #### 5 0608, 46112 #### [facility] [address] [place] [address], [facility] CO2 [Moles/Vol] 27 mmol/L Normal 21-31 [facility] Comment on above: Order Comment: No: D o not add to previous drawMissed Performed By: #### 5 0608, 67759 #### [facility] [address] [place] [id number], [facility] Creatinine [Mass/Vol] 1.08 mg/dL Normal 0.70-1.30 [facility] Comment on above: Order Comment: No: D o not add to previous drawMissed Performed By: #### 5 0608, 28045 #### [facility] [address] [place] [address], [place] GFR/1.73 sq M.predicted among blacks MDRD (S/P/Bld) [Vol rate/Area] mL/min/{1.73_m2} Normal >60 [facility] Comment on above: Order Comment: No: D o not add to previous drawMissed Result Comment: Calc ulation may not be valid for patients over 70 years Performed By: #### 5 0608, 36275 #### [facility] [address] [place] [address], [place] GFR/1.73 sq M.predicted among non-blacks MDRD (S/P/Bld) [Vol rate/Area] mL/min/{1.73_m2} Normal >60 [facility] Comment on above: Order Comment: No: D o not add to previous drawMissed Result Comment: Calc ulation may not be valid for patients over 70 years Performed By: #### 5 0608, 07401 #### [facility] [address] [place] [address], [place] Glucose [Mass/Vol] 257 mg/dL High 70-100 [facility] Comment on above: Order Comment: No: D o not add to previous drawMissed Performed By: #### 5 0608, 23291 #### [facility] [address] [place] [address], [place] Potassium [Moles/Vol] 4.5 mmol/L Normal 3.5-5.1 [facility] Comment on above: Order Comment: No: D o not add to previous drawMissed Performed By: #### 5 0608, 06445 #### [facility] [address] [place] [address], [place] Sodium [Moles/Vol] 135 mmol/L Low 136-145 [facility] Comment on above: Order Comment: No: D o not add to previous drawMissed Performed By: #### 5 06, 25654 #### [facility] [address] [place] [address], [facility] Urea nitrogen [Mass/Vol] 27 mg/dL High 7-25 [facility] Comment on above: Order Comment: No: D o not add to previous drawMissed Performed By: #### 5 06, 54752 #### [facility] [address] [place] [address], [facility] C REACTIVE PROTEINon 022 CRP [Mass/Vol] 278.0 mg/L High 0.0-7.0 The [facility] Comment on above: Order Comment: No: D o not add to previous draw Performed By: #### 5 7307, 09634 #### [facility] [address] [place], [place] [id number] [place] [address] CBC COMPLETE BLOOD COUNTon 10-30-2021 Erythrocyte distribution width (RBC) [Ratio] 14.6 % Normal 11.5-15.0 [facility] Comment on above: Order Comment: No: D o not add to previous draw Missed Performed By: #### 5 06, 14966 #### [facility] [address] [place] [address], [facility] Hematocrit (Bld) [Volume fraction] 41.4 % Normal 39.0-50.0 [facility] Comment on above: Order Comment: No: D o not add to previous draw Missed Performed By: #### 5 06, 82974 #### [facility] [address] [place] [address], [facility] Hemoglobin (Bld) [Mass/Vol] 13.9 g/dL Normal 13.0-17.0 [facility] Comment on above: Order Comment: No: D o not add to previous draw Missed Performed By: #### 5 06, 65749 #### [facility] [address] [place] [address], [facility] MCH (RBC) [Entitic mass] 32.0 pg Normal 27.0-33.0 [facility] Comment on above: Order Comment: No: D o not add to previous draw Missed Performed By: #### 5 06, 27307 #### [facility] [address] [place] [address], [facility] MCHC (RBC) [Mass/Vol] 33.6 g/dL Normal 32.0-35.0 [facility] Comment on above: Order Comment: No: D o not add to previous draw Missed Performed By: #### 5 607, 64961 #### [facility] [address] [place] [address], [facility] MCV (RBC) [Entitic vol] 95.2 fL Normal 82.0-98.0 [facility] Comment on above: Order Comment: No: D o not add to previous draw Missed Performed By: #### 5 607, 32125 #### [facility] [address] Nucleated RBC/100 WBC (Bld) [Ratio] 0 % Normal 0-0 [facility] Comment on above: Order Comment: No: D o not add to previous draw Missed Performed By: #### 5 607, 25646 #### [facility] [address] [place] [address], [facility] PLAT CNT 211 10*3/uL Normal 150-400 The [facility] Comment on above: Order Comment: No: D o not add to previous draw Missed Performed By: #### 5 607, 50007 #### [facility] [address] [place] [id number], [facility] RBC (Bld) [#/Vol] 4.35 10*6/uL Normal 4.20-5.70 The [facility] Comment on above: Order Comment: No: D o not add to previous draw Missed Performed By: #### 5 607, 61468 #### [facility] [address] [place] [address], [facility] WBC (Bld) [#/Vol] 9.94 10*3/uL Normal 4.00-10.60 The [facility] Comment on above: Order Comment: No: D o not add to previous draw Missed Performed By: #### 5 0608, 25830 #### [facility] [address] [place] [id number], [facility] LACTATE WITH REFLEXon 2021 Lactate [Moles/Vol] 1.5 mmol/L Normal .5-2.2 The [facility] Comment on above: Order Comment: No: D o not add to previous draw Performed By: #### 3 1414 #### [facility] [address] [place] [id number], [facility] MAGNESIUM BLOODon 10-30-2021 Magnesium [Mass/Vol] 2.0 mg/dL Normal 1.9-2.7 [facility] Comment on above: Order Comment: No: D o not add to previous draw Performed By: #### 5 7307, 16525 #### [facility] [address] [place] [address], [facility] PHOSPHORUS BLOODon Phosphate [Mass/Vol] 3.0 mg/dL Normal 2.5-5.0 [facility] Comment on above: Order Comment: No: D o not add to previous draw Performed By: #### 5 7307, 74373 #### [facility] [address] [place] [address], [facility] POC GLUCOSE LABon 10-30-2021 Glucose [Mass/Vol] 355 mg/dL High 70-100 The [facility] Comment on above: Performed By: #### 5 7307, 74861 #### [facility] [address] [place] [address], [place] Glucose [Mass/Vol] 318 mg/dL High 70-100 The [facility] Comment on above: Performed By: #### 5 7307, 98470 #### [facility] [address] [place] [address], [facility] Glucose [Mass/Vol] 244 mg/dL High 70-100 [facility] Comment on above: Performed By: #### 5 7307, 12603 #### [facility] [address] [place] [address], [facility] Glucose [Mass/Vol] 294 mg/dL High 70-100 [facility] Comment on above: Performed By: #### 5 7307, 51600 #### [facility] [address] [place] [address], [facility] PROTHROMBIN TIMEon 2 INR Coag (PPP) [Relative time] 1.09 {INR} Normal 0.91-1.[address] [facility] Comment on above: Order Comment: [...] CHEST 1995;108:231S-246S. Performed By: #### 5 0608, 58713 #### [facility] [address] [place] [address], [facility] PT Coag (PPP) [Time] 14.1 s Normal 12.3-14.[address] [facility] Comment on above: Order Comment: No: D o not add to previous drawMissed Result Comment: ALL RESULTS MUST BE INTERPRETED WITH RESPECT TO BLOOD DRAWING ARTIFACT OR DILUTION ERROR OF ANTICOAGULANT AT THE TIME OF SAMPLING. Performed By: #### 5 0608, 14414 #### [facility] [address] SEDIMENTATION RATEon 022 SED RATE 43 mm/hr High 0-10 [facility] Comment on above: Performed By: #### 5 0608, 66004 #### [facility] [address] *BLOOD CULTUREon 10-29-2021 *BLOOD CULTURE Clinical Report: (D) Specimen: BLOOD CULTURE Collected: 10/29/2021 21:05 Status: Final Last Updated: 11/04/2021 08:31 (1) LH 2051 CULT RES (Final) No Growth Day 5 Normal [facility] Comment on above: Order Comment: No: D o not add to previous draw Performed By: #### 5 7307, 43806 #### [facility] [address] *BLOOD CULTURE Clinical Report: (D) Specimen: BLOOD CULTURE Collected: 10/29/2021 21:05 Status: Final Last Updated: 11/04/2021 08:31 (1) RH 2100 CULT RES (Final) No Growth Day [address] [facility] Comment on above: Order Comment: Check Line Position, right arm picc Performed By: #### 3 0313 ####[facility] APTTon 10-29-2021 aPTT Coag (Bld) [Time] 47.5 s High 25.0-35.0 Th e [facility] Comment on above: Order Comment: No: [...] THIS PURPOSE. Performed By: #### 5 7307, 66857 #### [facility] [address] [place] [address], [facility] BASIC METABOLIC PANELon 05- Calcium [Mass/Vol] 8.7 mg/dL Normal 8.6-10.3 [facility] Comment on above: Order Comment: No: D o not add to previous draw Performed By: #### 1 0070, 79864, 73711, 16915 #### [facility] [address] [place] [id number], [facility] Chloride [Moles/Vol] 100 mmol/L Normal 98-107 [facility] Comment on above: Order Comment: No: D o not add to previous draw Performed By: #### 1 0070, 96777, 21260, 97406 #### [facility] [address] [place] [id number], [facility] CO2 [Moles/Vol] 25 mmol/L Normal 21-31 [facility] Comment on above: Order Comment: No: D o not add to previous draw Performed By: #### 1 0070, 12113, 75167, 86404 #### [facility] [address] [place] [id number], [facility] Creatinine [Mass/Vol] 1.14 mg/dL Normal 0.70-1.30 [facility] Comment on above: Order Comment: No: D o not add to previous draw Performed By: #### 1 0070, 97012, 99338, 90362 #### [facility] [address] [place] [id number], [facility] GFR/1.73 sq M.predicted among blacks MDRD (S/P/Bld) [Vol rate/Area] mL/min/{1.73_m2} Normal >60 [facility] Comment on above: Order Comment: No: D o not add to previous draw Result Comment: Calc ulation may not be valid for patients over 70 years Performed By: #### 1 0070, 24444, 37191, 75447 #### [facility] [address] [place] [address], [place] GFR/1.73 sq M.predicted among non-blacks MDRD (S/P/Bld) [Vol rate/Area] mL/min/{1.73_m2} Normal >60 [facility] Comment on above: Order Comment: No: D o not add to previous draw Result Comment: Calc ulation may not be valid for patients over 70 years Performed By: #### 1 0070, 56249, 77033, 17298 #### [facility] [address] [place] [address], [place] Glucose [Mass/Vol] 261 mg/dL High 70-100 [facility] Comment on above: Order Comment: No: D o not add to previous draw Performed By: #### 1 0070, 79361, 42845, 70437 #### [facility] [address] [place] [address], [place] Potassium [Moles/Vol] 4.4 mmol/L Normal 3.5-5.1 [facility] Comment on above: Order Comment: No: D o not add to previous draw Performed By: #### 1 0070, 17378, 68493, 19757 #### [facility] [address] [place] [address], [place] Sodium [Moles/Vol] 134 mmol/L Low 136-145 [facility] Comment on above: Order Comment: No: D o not add to previous draw Performed By: #### 1 0070, 50599, 22095, 47275 #### [facility] [address] [place] [address], [place] Urea nitrogen [Mass/Vol] 30 mg/dL High 7-25 The [facility] Comment on above: Order Comment: No: D o not add to previous draw Performed By: #### 1 0070, 43896, 30736, 08442 #### [facility] [address] [place] [id number], [facility] LIVER BATTERYon 10-29-2021 Albumin [Mass/Vol] 3.0 g/dL Low 3.5-5.7 [facility] Comment on above: Order Comment: No: D o not add to previous draw Missed twice. Rhiannon Riojas notified. Performed By: #### 1 0070, 23180, 05765, 16848 #### [facility] [address] [place] [address], [facility] ALKALINE PHOSPH 159 IU/L High 34-104 [facility] Comment on above: Order Comment: No: D o not add to previous draw Missed twice. Rhiannon Riojas notified. Performed By: #### 1 0070, 76330, 04028, 28580 #### [facility] [address] [place] [address], [facility] ALT [Catalytic activity/Vol] 25 U/L Normal 7-52 [facility] Comment on above: Order Comment: No: D o not add to previous draw Missed twice. Rhiannon Riojas notified. Performed By: #### 1 0070, 29663, 12573, 94807 #### [facility] [address] [place] [address], [facility] AST [Catalytic activity/Vol] 40 U/L High 13-39 [facility] Comment on above: Order Comment: No: D o not add to previous draw Missed twice. Rhiannon Riojas notified. Performed By: #### 1 0070, 29417, 82760, 58428 #### [facility] [address] [place] [address], [place] Bilirubin [Mass/Vol] 0.8 mg/dL Normal 0.3-1.[address] [facility] Comment on above: Order Comment: No: D o not add to previous draw Missed twice. Rhiannon Riojas notified. Performed By: #### 1 0070, 41438, 69547, 19704 #### [facility] [address] [place] [address], [facility] Bilirubin.direct [Mass/Vol] 0.1 mg/dL Normal 0.0-0.2 [facility] Comment on above: Order Comment: No: D o not add to previous draw Missed twice. Rhiannon Riojas notified. Performed By: #### 1 0070, 26968, 67974, 06811 #### [facility] [address] [place] [address], [facility] Protein [Mass/Vol] 6.7 g/dL Normal 6.0-8.3 [facility] Comment on above: Order Comment: No: D o not add to previous draw Missed twice. Rhiannon Riojas notified. Performed By: #### 1 0070, 68005, 58269, 27979 #### [facility] [address] [place] [address], [facility] MAGNESIUM BLOODon 10-29-2021 Magnesium [Mass/Vol] 2.1 mg/dL Normal 1.9-2.7 [facility] Comment on above: Order Comment: No: D o not add to previous draw Performed By: #### 1 0070, 40296, 54052, 22669 #### [facility] [address] [place] [address], [facility] PHOSPHORUS BLOODon 2 Phosphate [Mass/Vol] 2.7 mg/dL Normal 2.5-5.0 [facility] Comment on above: Order Comment: No: D o not add to previous draw Performed By: #### 1 0070, 80276, 47634, 42823 #### [facility] [address] [place] [address], [facility] POC GLUCOSE LABon 10-29-2021 Glucose [Mass/Vol] 262 mg/dL High 70-100 [facility] Comment on above: Performed By: #### 5 7307, 34320 #### [facility] [address] [place] [address], [facility] PROTHROMBIN TIMEon INR Coag (PPP) [Relative time] 1.05 {INR} Normal 0.91-1.16 [facility] Comment on above: Order Comment: No: [...] CHEST 1995;108:231S-246S. Performed By: #### 5 7307, 50669 #### [facility] [address] [facility] [place] [address], [facility] PT Coag (PPP) [Time] 13.7 s Normal 12.3-14.8 [facility] Comment on above: Order Comment: No: D o not add to previous draw Result Comment: ALL RESULTS MUST BE INTERPRETED WITH RESPECT TO BLOOD DRAWING ARTIFACT OR DILUTION ERROR OF ANTICOAGULANT AT THE TIME OF SAMPLING. Performed By: #### 5 7307, 96848 #### [facility] [address] [place] [address], [facility] XR knee RT 2Von 03-11-2021 XR knee RT 2V [facility] [address] [place] [address] XRay Report Signed Patient: Richard Boykin MR#: [id number] : 1940 Acct:[id number] Age/Sex: 80 / M ADM Date: 03/11/21 Loc: [facility] Room: Type: [facility] Attending Dr: Godfrey Gomez MD Ordering Provider: [...] Jama Callejas M.D.03/11/2021 1:29 PM Dictation Location: [place] [address] Transcribed By: [facility] 03/11/21 1329 Dictated By: Jama Callejas II, MD 03/11/21 1328 Signed By: 03/11/21 [address] [facility] XR knee RT 2V [facility] [employer] Other XR knee RT 2V [facility] [employer] Other XR knee RT 2V [address] [facility] [employer] Other XR [place] 2[place] [address] [facility] [employer] Other XR knee RT 2V [facility] Other X[facility] knee RT 2V Signed [facility] [employer] Other XR knee RT 2V Patient: Richard Boykin MR#: [id number] [facility] [employer] Other XR knee RT 2V : 1940 Acct:[id number] [employer] Other XR knee RT 2V Age/Sex: 80 / M ADM Date: 03/11/21 [employer] Other XR knee RT 2V Loc: [facility] Room: Type: [facility] [employer] Other XR knee RT 2V Attending Dr: Godfrey Gomez MD [employer] Other XR knee RT 2V Ordering Provider: Godfrey Gomez MD [employer] Other XR knee RT 2V Date of Service: 03/11/21 [employer] Other XR knee RT 2V XR/XR knee RT 2V: Arthritis of right knee [employer] Other XR knee RT 2V Copies to: Godfrey Gomez MD [employer] Other XR knee RT 2V XR knee RT 2V 03/11/2021 7:52 AM [employer] Other XR knee RT 2V SIGNS AND SYMPTOMS: Status post total right knee arthroplasty placement, follow-up [employer] Other XR knee RT 2V PROTOCOL: Frontal and lateral graphs of the right knee [employer] Other XR knee RT 2V COMPARISON: 10/08/2020 [employer] Other XR knee RT 2V FINDINGS: [employer] Other XR knee RT 2V There is total right knee arthroplasty hardware without hardware complication or malalignment. [employer] Other XR knee RT 2V There is no significant soft tissue swelling. No evidence of fracture. Vascular calcifications are [employer] Other XR knee RT 2V present posteriorly. [employer] Other XR knee RT 2V XR/XR knee RT 2V [employer] Other XR knee RT 2V IMPRESSION: [employer] Other XR knee RT 2V Unchanged total right knee arthroplasty hardware. No fracture or hardware complication. [employer] Other XR knee RT 2V Impression dictated by: Jama Callejas M.D.03/11/2021 1:29 PM [employer] Other XR knee RT 2V Dictation Location: [place] [address] [employer] Other XR knee RT 2V Transcribed By: FLAVIA 03/11/21 [facility] [employer] Other XR knee RT 2V Dictated By: Jama Callejas II, MD 03/11/21 [facility] [employer] Other XR knee RT 2V Signed By: [employer] Other XR knee RT 2V 03/11/21 [facility] [employer] Other Vital Signs Date Time Vital Sign Value Performing Clinician Oracio addison 12-02-2021 11:15-0400 Body height 177.8 cm Teofilo Olexa Other [employer] Other Encounters Encounter Date Encounter Type Care Provider Facility Start: 02-28-2024 End: 02-28-2024 ambulatory Marj Sorensen Facility: [facility] Start: 02-06-2024 ambulatory [facility] Facility:[facility] Start: 01-24-2024 End: 01-24-2024 ambulatory Marj Sorensen Facility: [facility] Start: 12-06-2023 ambulatory [facility] Facility:[facility] Start: 10-06-2023 End: 10-06-2023 ambulatory [facility] Start: 10-05-2023 End: 10-05-2023 ambulatory CAREY FUNG Facility:[facility] Start: 09-22-2023 End: 09-22-2023 ambulatory Marj Sorensen Facility:[facility] Start: 03-03-2023 End: 03-03-2023 ambulatory FRANCOIS NERI [facility] Start: 02-27-2023 End: 02-27-2023 ambulatory UNKNOWN PROVIDER Facility:[facility] Start: 02-16-2023 End: 02-16-2023 [facility] Start: 10-24-2022 End: 10-25-[address] DOCTOR MALCOLM Facility:[facility] Start: 10-21-2022 End: 10-21-2022 ambulatory DOTTIE BLISSS [facility] Start: 03-26-2022 End: 03-27-[address] DOCTOR MALCOLM Facility:[facility] Start: 01-19-2022 End: 01-19-2022 Patient encounter procedure MD Marj Sorensen Work Phone: [facility] Start: 12-21-2021 End: 12-22-[address] SWEETIE TOMLINSON Facility:[facility] Start: 12-02-2021 End: 12-02-2021 ambulatory Teofilo Person Other [employer] Other Start: 12-02-2021 Office outpatient visit 25 minutes Teofilo Person [facility] Start: 12-02-2021 End: 12-02-2021 Patient encounter procedure MD Marj Sorensen Work Phone: [facility] Start: 10-29-2021 End: 11-02-2021 Evaluation and management of inpatient MARJ SORENSEN Facility:[facility] Start: 10-29-2021 Telephone encounter Aly koo MD Work Phone: [facility] Start: 10-28-2021 End: 10-28-2021 ambulatory Godfrey Gomez Other [employer] Other Start: 10-28-2021 Telephone encounter Godfrey Gomez [facility] Start: 03-11-2021 Office outpatient visit 15 minutes Lydia Anderson [facility] Procedures Date Procedure Procedure Detail Performing [...] COVID-19 Vaccine (1) COVID-19 Vaccin e (1) [facility] Payers Date Payer Category Payer Medicare MEDICARE MEDICAR E PART A & B [id number] 2021-Present [address] [place] [address] Medicare [id number] 2021 Unknown AARP AARP xxxxxx [id number] 2021-Present [address] [place] [address] [id number] 1959 Medicare [id number] 1959 Unknown [id number] 1940 Unknown [id number] 2.16.840.1.038865.3.579.2.647 1940 Unknown [id number] 2.16.840.1.025069.3.579.2.593 1940 Unknown [id number] 2.16.840.1.713286.3.579.2.593 1940 Unknown [id number] 2.16.840.1.291082.3.579.2.593 1940 Unknown [id number] 2.16.840.1.314476.3.579.2.732 1940 Unknown [id number] 2.16.840.1.173505.3.579.2.718 1940 Unknown [id number] 2.16.840.1.141411.3.579.2.718 1940 Unknown [id number] 2.16.840.1.801124.3.579.2.718 1940 Unknown [id number] 2.16.840.1.305374.3.579.2.718 1940 Unknown [id number] 2.16.840.1.802744.3.579.2.718 1940 Unknown [id number] 2.16.840.1.734714.3.579.2.718 1940 Unknown [id number] 2.16.840.1.790158.3.579.2.718 1940 Unknown [id number] 2.16.840.1.390461.3.579.2.718 Self-pay Self Pay [id number] Social History Date Type Detail Facility Tobacco smoking status RIIS Tobacco smoking consumption unknown [facility] Work Phone: Start: 1940 Sex Assigned At Not on file [facility] Sex Assigned At Sex Assigned At [facility] [employer] Other Start: 02-27-2020 Tobacco smoking status RIIS Never smoked tobacco (finding) [facility] Start: 1940 Sex Assigned At Male [facility] Medical Equipment Procedure Code Equipment Code Equipment Origin al Text Equipment Identifier Dates Arthroplasty, knee, total, minimally invasive Orthopaedic cement, non-medicated ([id number] FDA Start: 02-27-2020 Arthroplasty, knee, total, minimally invasive Uncoated knee femur prosthesis ()[id number] FDA Start: 02-27-2020 Arthroplasty, knee, total, minimally invasive Tibial insert ()[id number] FDA Start: 02-27-2020 Arthroplasty, knee, total, minimally invasive Polyethylene patella prosthesis ()[id number] FDA Start: 02-27-2020 Arthroplasty, knee, total, minimally invasive Knee stem ()[id number] FDA Start: 02-27-2020 Arthroplasty, knee, total, minimally invasive Uncoated knee tibia prosthesis, metallic ()[id number] FDA Start: 02-27-2020 Clinical Notes 03-11-2021 to [...] Notes from Pharmacy: - First Attempt Ref: [id number] Dispensed Drug: hydrochlorothiazide-lisinopril (hydrochlorothiazide-lisinopril 12.5 mg-10 mg oral tablet), TAKE 1 TABLET BY MOUTH DAILY Quantity: 30 tab(s) Days Supply: 30 Refills: 11 Substitutions Allowed Notes from Pharmacy: Requesting 1 year supply --- [facility] 12-11-2023 Note [id number] #[id number] [facility] 10-06-2023 Note OR Cardiology - [facility] Subjective Richard Boykin is a 83 y.o. 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 Right lower lobe pneumonia Chronic diastolic heart failure ([facility]) Nonrheumatic aortic valve stenosis PAD (peripheral artery disease) ([facility]) Mixed hyperglyceridemia History of arthritis Gout Dyspnea on exertion Chronic renal impairment Back pain Ulcer of toe ([facility]) Paroxysmal atrial fibrillation ([facility]) Type 2 diabetes mellitus ([facility]) Diabetes mellitus ([facility]) Hypertension Peripheral arterial occlusive disease ([facility]) Peripheral vascular disease ([facility]) Osteoarthritis Aortic valve stenosis Hyperlipidemia Leg ulcer, left, with unspecified severity ([facility]) JENARO (acute kidney injury) ([facility]) Allergic rhinitis Cellulitis of toe of right foot Vertigo Fatigue Gastroesophageal reflux disease Heart failure ([facility]) Idiopathic peripheral neuropathy Immunodeficiency disorder ([facility]/H[facility]) Morbid obesity (CMS/HCC) Muscle weakness Psoriasis Psoriatic [...] October 29 to November 02, 2021 at [facility] with MSSA bacteremia likely related [...] 3 years ago. He follows with a financial analyst intern. Recent testing: ECG 10/25/2021: Atrial fibrillation, nonspecific [...] walker to ambulate. He continues to see financial analyst intern and has a nurse that comes to [...] TSH: I as (more content not included)... [facility] 05-25-2023 Note Entered by Jeane Bush [...] MD Sent: May 25, 2023 4:55:58 AM CAKE PUNCHER Subject: Medication Management Due: May 26, 2023 12:04:06 AM CAKE PUNCHER On Hold Pending Signature Drug: pantoprazole (pantoprazole 40 mg oral delayed release tablet), TAKE 1 TABLET BY MOUTH DAILY Quantity: 90 tab(s) Days Supply: 90 Refills: 1 Substitutions Allowed Notes from Pharmacy: - First Attempt Ref: [id number] Dispensed Drug: pantoprazole (pantoprazole 40 mg oral delayed release tablet), TAKE 1 TABLET BY MOUTH DAILY Quantity: 90 tab(s) Days Supply: 90 Refills: 3 Substitutions Allowed Notes from Pharmacy: Please send a replace/new response with 90-Day Supply if appropriate to maximize member benefit. Requesting 1 year supply. --- [facility] 03-03-2023 Note Cardiology Clinic No te [...] aortic valve stenosis PAD (peripheral artery disease) ([facility]) Mixed hyperglyceridemia History of arthritis Gout Dyspnea [...] October 29 to November 02, 2021 at [facility] with MSSA bacteremia likely related [...] 3 years ago. He follows with a financial analyst intern. Recent testing: ECG 10/25/2021: Atrial fibrillation, nonspecific [...] walker to ambulate. He continues to see financial analyst intern and has a nurse that comes to [...] great. Update: 03/03 (more content not included)... [facility] 03-03-2023 Note Patient here for [facility]. He was at [facility] and fell recently. Says his knee gave out. He was taken via [employer] off the [place] and flown to [facility]. Lisinopril and hydrochlorothiazide were stopped due to JENARO. He does see nephrology in [place], but not locally in [place]. He denies chest pain, SOB, palpitations, syncope/lightheadedness and bleeding on Eliquis. Had outpatient echo a few weeks ago. Review of Systems Hematologic/Lymphatic: Bruises/bleeds easily. Musculoskeletal: Positive for falls and muscle weakness. All other systems reviewed and are negative. [facility] 02-16-2023 Note Patient here for 3 m o follow up afib, chronic systolic heart failure, and CAD. Had echo last week. Cnc Operator Programmer increased lisinopril to 5mg in September 2022, after labs in August. He denies chest pain, SOB, palpitations, and bleeding on Eliquis. Doing very well. Review of Systems Cardiovascular: Positive for leg swelling. All other systems reviewed and are negative. [facility] 02-16-2023 Note [facility]TP CARDIOLOGY PROGR ESS [...] October 29 to November 02, 2021 at [facility] with MSSA bacteremia likely related [...] 3 years ago. He follows with a financial analyst intern. Recent testing: ECG 10/25/2021: Atrial fibrillation, nonspecific [...] walker to ambulate. He continues to see financial analyst intern and has a nurse that comes to [...] by mouth i (more content not included)... [facility] 10-21-2022 Note Hypertension is well controlled 128/70 Continue all meds [facility] 10-21-2022 Note Continue ASA, eliquis and atorva statin [facility] 10-21-2022 Note [id number]= 6 age, HTN, CHF, DM and PAD Continue eliquis 2.5 mg bid, and metoprolol 25 mg bid- heart rate well controlled [facility] 10-21-2022 Note Diabetes is uncontro lled and pt needs better glycemic management - May benefit from a referral to endocrinology and will leave this up to the PCP [facility] 10-21-2022 Note Referral to wound ca re for management of diabetic ulceration of LT lower leg with known uncontrolled DM, PAD, and edema. Pt has appointment made and information provided to him- appt is Monday10/24/22 with wound care. Foam dressing applied to ulceration [facility] 10-21-2022 Note UTP CARDIOLOGY PROGR ESS [...] October 29 to November 02, 2021 at [facility] with MSSA bacteremia likely related [...] 3 years ago. He follows with a financial analyst intern. Recent testing: ECG 10/25/2021: Atrial fibrillation, nonspecific [...] walker to ambulate. He continues to see financial analyst intern and has a nurse that comes to [...] the morning. empagl (more content not included)... [facility] 10-21-2022 Note Patient here for 6 m o follow up PAF, chronic diastolic heart failure, PAD, aortic valve stenosis, and hypertension. Had routine labs in August 2022. Denies chest pain, SOB, palpitations, and bleeding on Eliquis. Just got back from [place] last night after 7 months. Review of Systems Hematologic/Lymphatic: Bruises/bleeds easily. Musculoskeletal: Positive for muscle weakness. All other systems reviewed and are negative. [facility] 10-21-2022 Note Reviewed echo from - Mild AO stenosis Will monitor with routine echcoardiogram D/W pt to call office for increased shortness of breath, palpitations, chest pain, lightheadedness/dizziness or syncope and he voiced understanding [facility] 10-21-2022 Note Coronary artery dise ase is stable without any concerning symptoms continue risk factor modifications- heart healthy diet, regular exercise as tolerated and continue all medications. [facility] 10-21-2022 Note [facility] II-III currentl y euvolemic without exacerbation Continue GDMT- lasix 40 mg daily and jardiance Diuretic therapy- lasix decreased from bid to daily per neprhologist Monitor daily weights, I&O, fluid restriction 1.5-2L/day, renal function and electrolytes- [facility] 10-21-2022 Note [id number] score i s 4 due to age, hypertension, diabetes. Eliquis anticoagulation [facility] 12-02-2021 Evaluation note Encounter Date Diagnosis [...] discuss treatment if continues to cause issues [employer] Other 05-18-2022 NoteMR#: [id number] [facility] Pt. Name: Richard Boykin Admitted: 10/29/2021 Discharged: 11/02/2021 Date of : 1940 Physician: Alicia Sweet MD DISCHARGE SUMMARY FINAL DIAGNOSES: 1. Methicillin-susceptible Staphylococcus aureus bacteremia. 2. Probable septic joint infection. 3. Right knee replacement. 4. New onset atrial fibrillation with RVR. 5. Nonobstructive coronary artery disease and peripheral arterial disease. 6. Msn-slfcsjo-gmdibkrzu diabetes mellitus. 7. Hypertension. HISTORY OF PRESENT [...] remained negative. He had a TTE at [facility] with poor image quality. There were no evidence of secondary source of infection on physical exam. Apparently, his repeat cultures at [facility] on October 24 and October 25, [...] his need for full anticoagulation with the sales commissions analyst on an outpatient basis. He understands that [...] Sweet MD Date Trans: 11/03/2021 09:12 A/lindsay [id number] cc: Marj Sorensen M.D. [address] [place] [id number] [place], [place] [id number] Miscellaneous Notes* Telephone Encounter - Aly Mcclelland MD - 10/29/2021 2:59 PM EDT I was called by BIANCA about patient with septic arthritis and bacteremia requesting transfer for higher level of care. 81 obese, afib, CAD, PAD, hx hip/knee replacement recently moved back from [place]. Presented on 10/24 with R shoulder pain [...] instability. Aly Mcclelland MD documented in this [id number] Evaluation note* Encounter Date Diagnosis Assessment Notes [...] Feb, Restless leg syndrome (ICD-10 - G25.81) [employer] Other Evaluation noteNo InformationNort [employer] Other Evaluation noteNo assessment information available [facility] Work Phone: History general Narrative - Reported* Type Description Date Medical History PVD Medical History psoriatic arthritis Medical History diabetes mallitus Medical History Gout arthrits Medical History hypertension Surgical History Bilateral hip replacement Surgical History cataract Surgical History left total hip revision Surgical History [employer] Other Summary Purpose Family History No Family [...] and content) DATE CREATED AUTHOR 12/04/2021 [facility] DATE CREATED AUTHOR AUTHOR'S ORGANIZ ATION 01/31/2022 [facility] DATE CREATED AUTHOR AUTHOR'S ORGANIZ ATION 10/25/2022 [facility] DATE CREATED AUTHOR AUTHOR'S ORGANIZ ATION 02/28/2023 [facility] DATE CREATED AUTHOR AUTHOR'S ORGANIZ ATION 10/07/2023 [facility] DATE CREATED AUTHOR AUTHOR'S ORGANIZ ATION 03/23/2024 [facility] REASON FOR VISIT (unrecogniz [...] BE BASED ON THE PRIMARY CLINICAL RECORDS. [employer] [facility]. provides no warranty or guarantee of the accuracy or completeness of information in this document.
--- NOTE | 2024-03-27 09:00 | CA_ITS ---
Patient Name: GENNY BOYKIN MR#: [id number] : 1940 Exam Date: 03/27/2024 Ordering Doctor: DR SWEETIE TOMLINSON M.D. ECHOCARDIOGRAM REPORT PROCEDURE: CA ECHO DOPPLER COMPLETE INDICATIONS: Nonrheumatic aortic valve stenosis COMPARISON: None. DESCRIPTION: COMPLETE ECHOCARDIOGRAM Real-time transthoracic echocardiography with 2D, M-mode, spectral and color flow Doppler performed. QUALITY: Technical quality was good. LEFT VENTRICLE: Normal chamber size. Thickened septal wall. LV EF: Global left ventricular systolic function is normal. Calculated left ventricular ejection fraction is 60%. No wall motion abnormalities. DIASTOLIC: Diastolic function is indeterminate. ATRIAL SEPTUM: Inadequately seen. LEFT ATRIUM: Normal chamber size. RIGHT ATRIUM: Normal chamber size. RIGHT VENTRICLE: Normal chamber size. Normal right ventricular systolic function. TRICUSPID VALVE: Normal mobility and thickness. Mild to moderate regurgitation. Mild pulmonary hypertension. RVSP 39mmHg MITRAL VALVE: Normal mobility and thickness. No evidence of mitral valve stenosis. Mild mitral annular calcification. Mild mitral regurgitation. AORTIC VALVE: Normal trileaflet appearance. Moderately calcified aortic valve with diminished mobility. Doppler velocity suggests mild aortic valve stenosis. DVI 0.3, Vmax 2.5m/s, Mean gradient 12mmHg. No aortic regurgitation. AORTIC ROOT: Normal diameter and appearance. PULMONIC VALVE: Normal thickness and mobility. No stenosis. Trivial regurgitation. PERICARDIUM: Anterior free space; trivial effusion versus fat pad. IVC: Collapses with inspirations. Normal size. CONCLUSION: 1. Global left ventricular systolic function is normal; visually estimated ejection fraction is 60 to 65% 2. Normal right ventricular size and systolic function 3. The left atrium is normal in size 4. Mild to moderate tricuspid regurgitation 5. Mildly elevated right ventricular systolic pressure; RVSP 39 mmHg 6. Mild mild regurgitation 7. Mild aortic valve stenosis 8. Anterior free space; trivial effusion versus fat pad Adult Echocardiography Procedure Report Left Ventricle LVEDD (3.7 - 5.6 cm): 4.34 cm LVESD (2.2 - 4.0 cm): 2.90 cm LVIVS thickness (0.6 - 1.2 cm): 1.25 cm LVPW thickness (0.5 - 1.0 cm): 0.91 cm e': 0.06 m/s E - e': 13.59 LVOT Max Gradient: 2.55 mm[Hg] LVOT Area (cm2): 0.80 m/s Peak Velocity (LVOT): 0.80 m/s Mean Velocity (LVOT): 0.56 m/s LVOT Diameter 1.88 cm Left Ventricular Ejection Fraction: 60.24 % Left Atrium LA Volume Index (2D A2C): 27.69 ml/m2 Left Atrium Systolic Dimension: 3.98 cm Mitral Valve MV E to A Ratio: 0.83 Mitral Valve A-Wave Peak Velocity: 0.91 m/s Mitral Valve E-Wave Peak Velocity: 0.75 m/s Right Ventricle RV Internal Diastolic Dimension: 3.26 cm Aorta AO Root Diam: 3.11 cm Ascending Ao Diam: 2.74 cm Aortic Valve AoV Area (Peak Bill): 0.91 cm2, 0.93 cm2 AoV Area (VTI): 1.00 cm2, 1.06 cm2 Peak Velocity(Antegrade Flow): 2.38 m/s, 2.49 m/s Peak Gradient(Antegrade Flow): 22.70 mm[Hg], 24.83 mm[Hg] Mean Velocity(Antegrade Flow): 1.59 m/s, 1.60 m/s Mean Gradient(Antegrade Flow): 11.58 mm[Hg], 11.82 mm[Hg] Velocity Time Integral: 48.09 cm, 53.59 cm Tricuspid Valve Peak Velocity (Regurgitant Flow): 2.57 m/s, 2.94 m/s, 2.99 m/s Pulmonic Valve Mean Gradient: 1.82 mm[Hg], 2.30 mm[Hg] Mean Velocity: 0.61 m/s, 0.69 m/s Peak Velocity: 1.00 m/s Peak Gradient: 3.52 mm[Hg], 4.54 mm[Hg] Right Atrium Right Atrium Systolic Pressure: 36.77 ml, 36.77 ml Dictated by: Lindsay Carvajal M.D. on 03/27/2024 at 17:20 Approved by: Lindsay Carvajal M.D. on 03/27/2024 at 17:25
--- NOTE | 2024-03-27 09:26 | VEIN_ITS ---
[facility] [place] [address] Patient Name: GENNY BOYKIN MRN: [id number] date: 1940 Sex: M Assigned Patient Location: CARD Current Patient Location: Accession/Order Number: [id number] Exam Date: 03/27/2024 09:28 Report Date: 04/01/2024 08:00 At the request of: SWEETIE TOMLINSON Procedure: VC Ankle Brachial Index EXAM: VC Ankle Brachial Index HISTORY: PVD I73.9 COMPARISON: None. FINDINGS: Segmental pressures presented as follows (right, left) in mmHg. Brachial: 152, 139 DPA: 34,130 CLINICAL PHARMACY TECHNICIAN: 70,127 1st Toe: 91,99 DAVON: 0.46, 0.86 TBI: 0.6, 0.65 The ABIs are low The TBI's are low VEIN/VC Ankle Brachial Index IMPRESSION: ABIs suggest severe right and mild left arterial occlusive disease TBI's suggest mild ischemia Electronically authenticated by: MARJ DUKES Date: 04/01/2024 08:00
== END 2024-03-27 07:47 | disposition home or self-care (01) ==
PROVIDERS: PCP Family Medicine; Visit Provider Internal Medicine Interventional Cardiology
DX: I35.0 Nonrheumatic aortic (valve) stenosis (principal); I73.9 Peripheral vascular disease, unspecified
CPT/HCPCS: 93306; 93922

== ENCOUNTER 2024-09-26 13:39 | Outpatient (OUT) | payer MEDICARE, SELFPAY ==
--- OUTSIDE RECORDS SUMMARY | 2024-09-26 14:06 | XMS_ITS | CCD ---
Author Organization [facility] Care Team Providers Care Used Car Lot [employer] Name Role Phone Unavailable Primary Care Provider UnavailMARJ Cooper Primary Care Unavailable MORTON Referring Unavailable JILLIAN HERNADEZ Admitting Unavailable ALICIA SWEET Attending Unavailable Lydia Anderson Unavailable Godfrey Gomez Unavailable Teofilo Person Unavailable MD Marj Sorensen Primary Care Provider MD Teofilo Person Attending Provider [phone] MD Sweetie Tomlinson V Attending Provider MISC, DR SILVA Primary Care Unavailable YURI HUGHES Attending Unavailable YURI HUGHES Admitting Unavailable MAYRAUKAALPHONSO, DR PITT Admitting Unavailable MISC, DR SILVA Primary Care Unavailable MOUKARBEL, DR PITT Attending Unavailable MOUKARBEL, DR PITT Consulting Unavailable MISC, DR SILVA Primary Care Unavailable MOUKARBCLINT, DR PITT Attending Unavailable MOUKAPETROSEL, DR PITT Consulting Unavailable MOUKAPETROSEL, DR PITT Admitting Unavailable PROVIDER, UNKNOWN Attending Unavailable PROVIDER, UNKNOWN Admitting Unavailable MOUKASWEETIE WERNER Attending Unavailable MOUKASWEETIE WERNER Attending Unavailable Marj Sorensen Admitting Unavailable Marj Sorensen Primary Care Unavailable Marj Sorensen Attending Unavailable Marj Sorensen Admitting Unavailable Marj Sorensen Attending Unavailable Marj Sorensen Primary Care Unavailable Marj Sorensen Primary Care Unavailable Marj Sorensen Attending Unavailable Marj Sorensen Admitting Unavailable KENTON, CAREY Admitting Unavailable CAREY FUNG Attending Unavailable Marj Sorensen Primary Care Unavailable Marj Sorensen Primary Care Unavailable KENTON, [...] tablet by toma th every twenty-four hours Glimepiride 4 MG 1 tablet with breakfast or the first main meal of the day Orally Once a day Active hydroCHLOROthiazide 12.5 mg oral tablet (4 sources) Thiazide Diuretic Start: 02-12-2020 take 12.5 mg by mouth once daily Hydrochlorothiazide Active 12.5 MG PO Daily February 12, 2020 12:00am take 1 capsule by mo [facility] every twenty-four hours hydroCHLOROthiazide 12.5 MG [...] 2020 9:57am take 1 tablet by toma th once daily in the morning Levothyroxine Sodium [...] Daily at bedtime February 27, 2020 12:00am Gxivkxrx-Wvy-Kxgmu -Vit K-Lycop (Men's 50 Plus Daily Formula) 400-20-370 mcg Tablet (1 source) Start: 02-12-2020 take 1 tablet by mouth once daily Rpfpkodv-Iqi-Qrit c-Vit K-Lycop (Men's 50 Plus Daily Formula) [...] before bedtime Orally Once a day Active Deshler Oil-Keene-3 Fatty Acids (Deshler Oil-1000) 1,000-200 mg Capsule (1 source) Start: 02-12-2020 take 1 capsule by mouth once daily Deshler Oil-Keene-3 Fatty Acids (Deshler Oil-1000) 1,000-200 mg Capsule Active 1 CAP [...] Active Problems Problem Classification Problem Date Documented Da te Episodic/Chronic Cardiac dysrhythmias (6 sources) Paroxysmal atrial fibrillation; Translations: [PAROXYSMAL ATRIAL FIBRILLATION] Onset: 03-26-2022 Chronic Chronic kidney disease (2 sources) Chronic kidney disease; Translations: [Chronic kidney disease, stage 3b] Onset: 10-06-2023 Congestive heart failure; nonhypertensive (3 sources) Chronic diastolic (congestive) heart failure; Translations: [CHRONIC DIASTOLIC HEART FAILURE] Onset: 03-25-2022 Chronic Diabetes mellitus without complication (1 source) Type 2 diabetes mellitus without complications; Translations: [Type 2 diabetes mellitus without complications] Onset: 08-07-2024 Chronic Disorders of lipid metabolism (3 sources) Hyperchylomicronemia ; Translations: [HYPERCHYLOMICRONEMI A] Onset: 03-25-2022 Chronic Essential hypertension (2 sources) Essential (primary) hypertension; Translations: [Essential (primary) hypertension] Onset: 10-21-2022 Chronic Gangrene (3 sources) Gangrene of foot; Translations: [Gangrene, not elsewhere classified] Episodic Gout and other crystal arthropathies (4 sources) Gouty arthritis of right ankle; Translations: [Idiopathic gout, right ankle and foot] Onset: 03-11-2021 Resolved: 03-11-2021 Chronic Heart valve disorders (2 sources) Nonrheumatic aortic (valve) stenosis; Translations: [Nonrheumatic aortic (valve) stenosis] Onset: 03-25-2022 Chronic Osteoarthritis (4 sources) Arthritis [...] Test Name Value Interpretation Reference Range Facility Outside Recordson 09-19-2024 Outside Records [id number]# 1.00[facility] Physical Therapy Noteon Physical Therapy Note [id number] #1.00[facility] Coding Summaryon 08-14-2024 Coding Summary HTMLBase 64 BrhkgrcdHYb6zPf+PGhl YWQ+IT4PWOWyI28unCQm uE7hW2SYAHaTFdifKCOS PKrLZjZpqsWsHD1jdGIs ZXJu IC8+MS8rAVWgVdaofKQh c9Z5mHZ4R36obc3cNZsw oJP3IRWtAvYxcxtfv2ja kXx3LBwpMdjmCaHq DPKbhJ96XMN3qO45Dm83 qUFqeOEvc3dcmRu9YoBj YYQtXNF5sGssCDfcf7Hr VXOqJ24twZBgy7T0 IGNvbGxhcHNlOyBlbXB0 bV5xJOllieeel9hegsxc Sir4le50sUKye2J5mDY0 C7UqnlW9KZJdwWAj LdmvjOOAjK5mrafbi2ba hgvfDpCjNHAkNBj1YDi3 IUEuuMsuXlJkWV68HWL9 BUXxioXbM9FdXKMl cJfmSfM5u8Y6Sg9YF5EY NkasY2LQYSAACMcntJX+ DD33zm80L9CvUvsgPyy8 NLRzFXW3kNU5tY6e IJKkPNlhd3L9aMN6M0Wk zbQpms8jc6iwPSDzJKht N26aoTZaw3O2VLUcqMS6 JUKgxNyyXiGgnN33 Oyc+GKGnqOszo7CcArjo n0lik5lloIk4HkjjEDNp koSliNbzJVI0i6MkTk5p NRInnCL1fMS7aY7e BfUiOlD0NDygZ731AxXo vFMhOyksW32oG5BntJR+ BWJrEcg3ZAPjuBnySV4d L3NbNIGmluasqYMg kMsyAQ5ePOLpriorWMBo aK7qRJNvX5u1OuSoTdP4 MYkdE8DwWSUsvvqwNx42 tA7cDfPuRfB5PDzg T3DsjsT8HWYorTLmJPiu VKZ9X03bb0G8ARVzPYWf CQV1mGW4gX8xqFiadcxy bGVmdDsgdmVydGlj NDwjLJsaF337JTSwaPwg PkNvZGluZyBEYXRlOiAg MDIvMjYvMjAyNTwvdGQ+ HCSkKHB9mRbySNQh sPGgOUilMm3foVqjlQgj GA9rHTTxvbssWCMmaJ8q KRJunTOoxGtuQX3hAWEy dasqb973NqChUTJ8 MHRbuTOkS4KsoC1sVlRd PBEzDGQkZ0ZdiMDzNLhu H276POcnOeG3UQVolxBn F6IuBEQbsEbmJpV8 r6W8Bm9Kf5OjokroX1Ug pBDvBoBnMjttSJh4S3Az PjwvdHI+XR38KJMsQY88 GSe0LMD9fJjuSTyq TKFzN5DwqV0uUyYxHYKh ZGRkOyc+PHRhYmxlIHdp ZHRoPScxMDAlJyBzdHls JO3bWu0rFFGvGYSs vFzmfQEvTdBux1xeTNEe YXnrCJ1baUywA4CwzVX2 ADZlh3i9Qw86L30aY9De dXA+FYMerNB2wUC3 eX2pTqUiTwM6ENeyX326 TrBsvHGqLpxnd7zuu2vq aJs2MdW9KERswfYydGjd SLO4t6UaCe59E90a IHdpZHRoPSIxNSUiIHZh qFamgc7qaW2aOn2+PGNv yRW8jTD4dH8sXxLqZnI7 SSvwL284VeBwmBBv Tcfgm1mxe1pbgWh0UcUf QMPzsaPlfQfrSPR8z4Bc Ip00F7RirVvou2NnOif4 ag28jHMxc0Q9jVD6 G1OuBJUivhcnvNIfyWru EF0uIVZylyqwDYVmcD8z CBEgE2c3CaFdClT5ORiz U1McjyC1WQRgwUOy MJEzcVTUcT8lanodm2bc zlomAjJcWVKeUEt4URt5 PALamBvkYdOpREP0QzH0 JCI0nLLqbW8diAbt jplkoM2xXhq+VEI2zIWn zDLHLU5nVfugtCV+PHRk TSM2yIroRCqgEXPrnJ9i QZUoN8r4GbOcWuO2 CTnpG8AeamE3TJCzsPNy WHTrjIJKhF4olhjna1ag pqlsUlUyURUtZXx1IFu6 LWFsaWduOiBsZWZ0 ZwD0KLK0kYGmeK5zjDgs dcojwQ2dJlu+QmlydGgg YPW7WCw3R8UqDip3GDVa bKzaWD9oaUVpQTwy Ic5ycXcogOhyET6jJWYz njyiq876LtKdd6npOMLc jCDvITwrPSF4T64vz0I5 DEQsYOQlMSU2cIZ6 iY6rbNqqhhjbkEZkyVjs skEplOhrZZeaRJazP549 PCRivPxeSiEfUFy4H8Df Tjj6TGHypAhkGD9q oYBuVBgdWr1yqZjphNwa IN9qRUYoegxll767FuTi c6urMGWltVAjIGteKOE1 Q16gt0S0URHhFKXj QXI3iFI0qC6lnEomtazw bGVmdDsgdmVydGljYWwt NYrjF923JSLafFtoNlMm pPi7O4MbInz5NPYe wXllOA6orJJuIAvpHn8x pTjojXbhSC3xTTJsejhi p729BbNii5qgTOEvbDNn TTmhMVG7J27hp3K5 THYlEKQjIYP4yWV5tA5e bGlnbjogbGVmdDsgdmVy uWaoRJhzJLseU970YEZy cDsnPlBhdGllbnQg PXesWMb5K8EdKhjfnOB+ TN93RYRiGV61rIMvkFLu l1jdrFj6KyEdKMZkAEF9 wUikGNfyw1OpUREi P39tmFYbu6F9CIYyqVee xFVuKbXuhNR3yD3zFRqr jgnjs4vbcxreAsmgo8ep nt06pU46I39eNXoc ZHRoPSIzMCUiIHZhbGln ji1byJ1lGh8+PGNvbCB3 mVS3lP9qXKOnAtR4XRza T976ZnEjtQHuBddp o0qat9awdTv2KaU0ZMYt heGfdMomSTX2l8VtHq20 C29kNEmvMVUiDXLiTAVj RFBcfIoytr6ahU9a Ii8+XPHdxOD9uKA3gE8u SrZpCjM2XJyuK621ZxWq tMQeLdunC48kG9TuzWB+ CRNeWrt9SWDstKxo GW3ecBMbCOhdEg9nRSM3 HuXtXgHuYVcyX8BkLBVg cromvjtloTJ5EDLeXBYu tJ59Zh5skCalVEFe xYOGqZ4fohhyq2dqmbsl HuKoUYSkTPe2FWt0ACPp bGtwLdQwLBE5JlL1HEP4 fPNpfR2tcZzmicbz iP2dK9UsAJYxpiyySs14 tQ8sKgQmPjV4ITodOsf+ J3KRBDPXNMLHKKbtFWDZ ICKCFS77BC38hJFc s4F9kDG1X7ZeFYLnrvwd bekurGX3UHViDSHxdV52 hYKjEVreWt7xh4H3k585 OSZzAPOxnH12Zh0b oZkySKMviVUWkA0lmrdk t5xycpvqDoZlMBXgXAt3 IKz3MGLpdTrzOyClZJY2 JzR1VVS5lOEtsF4t wOdcpreshV5sMly+MDEv QFZaINo7MppsmEB+PHRk ZXD5fEgrITxtXSTecT7s ZLWvA6s0LfPcZwO6 NOjtS4FvDXLziomkFq63 iN3fSyMlIgL4TYszL0Zx fvN9JNAuqQLtMPjkQHH1 V80wu2L0FDKkNZQh QYC2tKU7jG7tsJknldfj bGVmdDsgdmVydGljYWwt SRdeK896VNNdsNdcEnyq PHwgSMXwXI67CF34 uMKxn0M3yMY8U2AaBZTv vcdgrgrlrAN0HXHrZSPa sV07eBBiUWsmPi0sb2D5 f386ZFUkVNOmbA10 Ik7kdLvxEFTfkJYVwP3w dkptu6dvoznqPqXqUACx RCn1UWy2DOZthCabQhCy JKY4TaJ5FNA5bFQm kY0nfCmrqxzgjH7mRjp+ TUFMRTwvdGQ+PHRkIHN0 gLddUMnoDKHuuU2sKUIi V9e6VzQiAvN9ZXcj D6FvHPHlpabrFy80uS2r EsXbDjM7NXtnX1ZgwtR9 LTZosKLtLScpVDU1D41u d1Z5QPKuLPLqLNY4 jMP1eT6rgJaxyfasyKIh dDsgdmVydGljYWwtYWxp U302QIZecGodNl0ECI17 QP30V2RbTbhozVKi bGU+PHRhYmxlIHdpZHRo EGjdEUNhYbSqdCvqJE9s Pk7eOFKlVXLnuKxejOPf SfEfk1jcGVSjUOcp NR8zeZieN0LdkZA4NRFq x9y6Pl44K27kA3IguIS+ OQVpdXI6fSO6iD3nTiGg ZcP3YWnbS931XgAu wLBiXnccz6olw3mvbOd1 IjMwJSIgdmFsaWduPSJ0 j7OqGm90B45iYMqiAPOy PSIyMCUiIHZhbGln ri6boT1mXw9+PGNvbCB3 qHZ0dH3wUmAoIeR0WMpl P177MlExgGLrCploM82e H7CkvRA+PHRyPjx0 IIBvkRbiPP7oyFVqHXdh Ft2dWMZ6OpOlHaKqFAjr U4AmSJBdovufuslxtRT6 CWIeZOTcjV49Mp5x iIxxZx0nEAJdGBS5YCMe rWXpD0RotE9dLfLlNULk NPWqU0HilCMsDXufB076 OIpfDzI6IAQfqqPd C1AsFXIphEpxEoM0k8H4 Sf4BpXrbmSWdSH2xKsNj BFq3Q7DsLcg9KXJtsZog OB0zkFHvZSklMy7q tPyauRhtPJ1sLWQmwira g761OnHcp2rcNFPfmZPe MAbtSGM0M94ei7A1ELGr CYToHOT3gWZ6iI9h bGlnbjogbGVmdDsgdmVy iMjmFBwgJChkI380RYYp gBshFyOHUjq6M0ShZqk4 IUVpzVlkZG3vnJWm GVvsUi3gnIhiiFtuSK7k OONeewznv368JcCvy2bs KKRgfLKfTUayLYK6R88l t3F0HXDjVSVrIVQ4 xXB3oD2qbOzkacqdnCQi dDsgdmVydGljYWwtYWxp W859JAYciJgxRq7VYif2 I1ErLvn3FEVnpDsp PC7dsJVrVLfhWf3waLbh bSnmIY8wONNodlrce010 JdYri8vnXNMduIZwTLhz LLS3G53pz9M7EAZp BCBdHDS8xCV0uF6joRkt bjogbGVmdDsgdmVydGlj HPyfUKmvS018VBNpsKdu PlBheWVyOjwvdGQ+ UJ02un15O7MgLsdwBmd6 YSEfCFW9nNW7vM6gTFOg GYmrq8A0wHV0J0HjxxTd nm0jj1enOFStRCrj Y29 (more content not included)... Normal [facility] Office/Clinic Noteon 025 Office/Clinic Note Patient: RICHARD BOYKIN Age: 84 years Sex: MALE : 1940 Associated Diagnoses: Diabetes; Afib; Acquired hypothyroidism; Hyperlipidemia Author: Marj Sorensen MD A History of Present Illness 84-year-old male presents today for follow-up and management of type 2 diabetes, high blood pressure, high cholesterol and thyroid. Reviewing his chart he is due for blood work. His A1c today was 9.1. It is down slightly but he has been adjusting his medications on his own. He is supposed to be taking 20 units of Toujeo in the morning and 15 in the afternoon. He is taking 25 units in the afternoon only. He thinks he should be keeping his blood sugars below 250. When I told him the goal is below around 140 he gets nervous when his sugar is below 160. He does not have symptoms. He is so used to running high. He is continuing with physical therapy. Patient does continue to use continuous glucose monitoring system. With his blood sugars being out of control and fluctuating as much would recommend continue monitoring at least 4 times a day. Also monitoring what happens when he eats certain foods. Review of Systems Constitutional: Negative. Ear/Nose/Mouth/Throa t: Negative. Respiratory: Negative. Cardiovascular: Negative. Gastrointestinal: Negative. Musculoskeletal: Negative except as documented in history of present illness. Health Status Allergies: Allergic Reactions (Selected) No known allergies, Allergies (1) Active Severity Reaction No known allergies None Documented Current medications: (Selected) Prescriptions Prescribed Eliquis 5 mg oral tablet: 2.5 mg = 0.5 tab(s), PO, BID, 90 tab(s), 3 Refill(s) Freestyle josee 2 14-day sensors: See Instructions, Monitor blood sugars 3-4 times a day qAC and Qhs., 2 EA, 11 Refill(s) Jardiance 25 mg oral tablet: 25 mg = 1 tab(s), PO, qAM, 90 tab(s), 3 Refill(s) [employer] brand glucose test strips: See Instructions, test blood sugar one to two times daily, 100 Strip, 0 Refill(s) Metoprolol Tartrate 25 mg oral tablet: 25 mg = 1 tab(s), PO, BID, 180 tab(s), 3 Refill(s) Toujeo SoloStar 300 units/mL subcutaneous solution: See Instructions, 20 units in AM and 15 units in the PM, 12 pens, 3 Refill(s) allopurinol 300 mg oral tablet: 300 mg = 1 tab(s), PO, Daily, 90 tab(s), 3 Refill(s) atorvastatin 80 mg oral tablet: 80 mg = 1 tab(s), PO, Daily, 90 tab(s), 3 Refill(s) fluticasone 50 mcg/inh nasal spray: 2 spray(s), Nasal, Daily, 16 gm, 3 Refill(s) furosemide 40 mg oral tablet: 40 mg = 1 tab(s), PO, BID, 180 tab(s), 3 Refill(s) glimepiride 4 mg oral tablet: 4 mg = 1 tab(s), PO, BID, 180 tab(s), 3 Refill(s) hydroCHLOROthiazide 25 mg oral tablet: 25 mg = 1 tab(s), Oral, Daily, 90 tab(s), 3 Refill(s) levothyroxine 50 mcg (0.05 mg) oral tablet: 50 mcg = 1 tab(s), PO, Daily, 90 tab(s), 3 Refill(s) pantoprazole 40 mg oral delayed release tablet: 1 tab(s), Oral, Daily, 90 tab(s), 3 Refill(s) rOPINIRole 2 mg oral tablet: See Instructions, 2-3 tab(s) PO Once a day (at bedtime), 270 tab(s), 3 Refill(s) Documented Medications Documented Calmoseptine topical ointment: 1 josé, TOP, As Directed, PRN: Other (see comment), 0 Refill(s) Lotrimin AF 2% topical spray: 1 spray(s), TOP, BID, 133 gm, 0 Refill(s) Multivitamin, generic: 1 tab(s), PO, Daily, 0 Refill(s) Tylenol 8 Hour 650 mg oral tablet, extended release: 650 mg = 1 tab(s), PO, q8hr (int), 0 Refill(s) Vitamin B12 1000 mcg oral tablet: 1,000 mcg = 1 tab(s), Oral, Daily, 0 Refill(s) aspirin 81 mg oral delayed release tablet: 0 Refill(s) loratadine 10 mg oral tablet: 10 mg = 1 tab(s), PO, Daily, 30 tab(s), 0 Refill(s) montelukast 10 mg oral tablet: 10 mg = 1 tab(s), Oral, qPM, 90 tab(s), 0 Refill(s) nystatin 100,000 units/g topical powder: 1 josé, TOP, BID, 0 Refill(s) traMADol 50 mg oral tablet: 100 mg = 2 tab(s), PO, TID, PRN: as needed for pain, 0 Refill(s) Physical Examination Vital Signs 08/07/2024 10:35 EST Peripheral Pulse Rate 69 bpm Systolic Blood Pressure 100 mmHg Diastolic Blood Pressure 70 mmHg BP Site Left arm SpO2 99 % Measurements from flowsheet : Measurements 08/07/2024 10:35 EST Height 179.0 cm Height/Length Measured (inches) 70.47 in Weight 105.05 kg Weight Measured (lbs) 231.595 lb Weight Dosing 105.050 kg Body Mass Index 32.79 kg/m2 [place] Body Weight Calculated 74.087 kg BSA Measured 2.29 m2 General: Alert and oriented, No acute distress. Neck: No carotid bruit, No jugular venous distention, No lymphadenopathy, No thyromegaly. Respiratory: Lungs are clear to auscultation, Respirations are non-labored, Breath sounds are equal. Cardiovascular: Normal rate, Regular rhythm, No murmur, Good pulses equal in all extremities. Impression and Plan Diagnosis Diabetes (DHQ43-ST E11.9). Plan: Discussed with patient would like him to take the 20 units in the morning and 15 in afternoon. If his blood sugars are dropping low would cut back on the 15 in the evening. He does wear co (more content not included)... [facility] Outside Recordson 06-25-2024 Outside Records [id number] 1#[id number] [facility] Orders Onlyon 06-03-2024 Orders Only [id number] Richard Boykin 1940 M Date Provider Department Center 06/03/2024 FERMIN RAMIREZ CARD [facility] Family History Problem Relation Age of Onset Stroke Mother Valvular heart disease Father Family Status - Relation Status Age at Mother Father Normal [facility] Coding Summaryon 05-30-2024 Coding Summary HTMLBase 64 VzjaewqbSPm7lWd+PGhl YWQ+LB6LCFMdU75wuNZx jQ7bW6CQEWaVUybdPDQX NFgXHmBkmoMzRW5zqEPu ZXJu IC8+HG8cHXMvFglfzBJl n7Q4mXA8N76wsu9qRGsu mOW6QIBkVeDsmrbhc3yv nFq5THcmArllXtEg KRYeoS01GIM5fQ31Fm53 mYEnkNCoa4qdtJt9KxPo GXOoGTN3wMmuJFoxm6Wj QNWgA14tvHLyt4U2 IGNvbGxhcHNlOyBlbXB0 dD7cXXzblgxwq4eppnyj Ebm4lr42hUDtp5E8nXV2 N7IyaiY2ZLQqsYRn OxfmrWOXuW4umenvv0wn hhbjOwKvDHYnBAb3VFk2 WPUztEugXnEgHU90ICG6 QIZkljEzG4KdKGEl iBqrWlE3x0W3Ug3QS8FW UnbbV8RAJNJYJPvpvNZ+ MT78um06D9JtAtavJlw4 RQPcFUG0mOU9qU7i CGObWTlin4Y1fFA6D3Wx jnEghd6dc8rzBXVsYWcd J26gyGTmb8S5MZNyjNR6 TQQioNspAoPsfB17 Oyc+EWUqbJdox9PhEwdl k5ddp1wehRe8MunuJGXq mzFufFemUKH1u2TpYh7q NCJdoMD3aRZ6xY6l LbKuQkU4HGqzR738HiHp sOTtEaerK08kW6WmjCA+ XYZnGpv5KTJsuWzfCZ1v E9JpXTGsvbwnoNWr xUudRK1tNJMrsogkDOPz xG9zCIMmC3f0BkRnOqO9 NBypE2MtRWZhwapfWm92 xY9dMzZhVoI1SZiy B8UazeH0HSYioXLzGAvm XEB4T99td3N3BHXwREBw LIA5bWZ5fV7faVatblna bGVmdDsgdmVydGlj KWlkVDepZ770THIbqRmn PkNvZGluZyBEYXRlOiAg MTIvMTIvMjAyNDwvdGQ+ MVMzAVH1aKjbIHJe lRXeTExlYu5tpEyxtNgk LW0vOQCupibbQQWpfX1m GMVneTZsiUtfEC2nWGFm vamgm246BnQeZMR3 FDFtbUNhI8ZldI5sLyIt ELWgWQFyZ7OpzAScFZuq I385YAyxWnR7TQCbkuWf B6OkVMGmiDvqEhE8 b2S1Gw4Tp5ZmmcnpX7Gn rVDsScIxTedoEAo7I0Wc PjwvdHI+HS97UYRzNH68 WOv5BIM7dQwdNLdt GSLwF7PcuJ8uJbPlWWLp ZGRkOyc+PHRhYmxlIHdp ZHRoPScxMDAlJyBzdHls BM6iQf2jEBFnUSCu yQymdPHcKwPuu1xjRIVg EQdeFS1znYdfX9HhcOF1 DRZcx5w5Qv21X03fI1Vl dXA+ZCNowAX7kOD8 xC4rUmLhKdD5JTadG370 MhWajEYkZuigj2eva1zq dLd4OiO4XOEwckRpoKob DSZ4x4MzNq41H19m IHdpZHRoPSIxNSUiIHZh nUyizi3hbX5rDj6+PGNv lLP5lYQ8nW3xZeBcRmM9 YWknL980WdAemZRf Grlpr2xaq4pfiCi9TsHh GZKipoUbrUvuNHX8c3Xt Iw93B7QkmCvks6ElWbv1 ha85xNVvh9S2uYQ9 T3CeNHMcrifoyUTbhIdk HZ7mHTCdpoohFJMkyQ6t IKOyZ0x8CdHuJgK6JMux W4CjvhO7ZXNlpZQh MBCujBCUqM3zsntio0ii dmqfGxCxWPDpEJa9ECz2 QOMldMctKyRmBIL6XzC8 QHX4yPLilA7ucDbl agfttD3xTep+ENR4mHLx uHTUQB3qStcryJF+PHRk RIQ5zUzoPJhwRTGzkN3v SRXaE2w1UzRhJpJ8 PBjoH1XgrcL0GUQmrEHn EEBnyIDDcK4dreuep3dm xqpmOeIfBMJoIGy4PRa4 LWFsaWduOiBsZWZ0 RxS7RED7wEWquY1qzGvr ygfohA3dEac+QmlydGgg HOW2APl6B6GqHfr1TELx eNwkYE3jkMEwEZya Ea0heUrqjZyaAR3rSWNy yusun597YgClz2ecWWFj bXOoWEvqAYF9P98wh1L2 TUDgLNUoFQY6qEF7 xL5rnLgejufchUBegZyw avGlbStoLGgrLKhrE249 WJFuyTcoUfSzWHt3G8No Cst4QQWrxZbqLY1z cDBkEKoeVk7fqWtzpGiv LE3oGVNlekkta160LwEf i0rzVNNudMTyAGzlEDB0 V19rd0K7OHYoXEUu HIZ2bNA2aL3dmDrewsqb bGVmdDsgdmVydGljYWwt FOywI676HNJlqMsrDiVp dRt2P3EgUhb4ZHLz iNlxWL4ggALgIYujPg9x zMbfcVvwTG2mFBHsgknp z340ZwQji8qkXDDwaCQz NAcwIYD1T57wo1Q9 FUGpXCHfIFP4kSJ3oZ2y bGlnbjogbGVmdDsgdmVy yVwoFRgtNIyjK847NHYu cDsnPlBhdGllbnQg JSuhKLe4W1KxFrfzsSW+ AS74YYKaLD00qPEejCKp g3xmiHr9LdJfIHGrDIM3 iRwuWCrzh5BvBRAy L69vnGVgv1U3CTXxoPic oBMgQnCizCY0xJ6eEGit oaaro0qkhpzoTmzjh9dw zg77iK81G11tOHnp ZHRoPSIzMCUiIHZhbGln bk2voS2bTv5+PGNvbCB3 bPA8fB5pJSQkTmY0RVfw X639WfYvhIObRchw h9cvf5jxnUg9GsP4GPXf xfObeFylOTQ4w3AfSa34 A50nVDssXWHqUCLhFLVv STYshHgxof8ehS4z Ii8+KXWhhPW1tDE7pQ4t WuEwJaM9LIwbN831JsAm eYUmDnmqI29jG1AboUK+ YDZaKql2VUDxyKfl VS0zqJRwTJirTn5sJAL4 WpQoEvVwWYhmW5ZyJGKg asqxnavmxLO8PNHlRLLj wH38Fg7zvGqeOKYz aFQFzE5azurjd6cntzee GyMwVPQuULt1BXa0YINh lFlmTyYgDTQ2VlA0SZJ8 yZYhbR2gpDylpovs wI7iL6AdTOAzkesaNl88 fG7aIyLkGhQ3GNvsVtj+ J8JBNHTNGFWZYJyoDONQ YKIKJN63BQ45aSOi o1E6hSD1L4SjFYJrulhx eranhPB0HZJlIGDadR85 sGJfTBoiNt9le9V6z255 RPHbISWkvQ32Xo2h nPszKKVkvCSQdC3ykagr l4sfveoyWnVlYHKsXGj5 ZQn0CYDrwGoyDpNeACB2 TtI7JDJ8zLSzsM0j oKfeonakkO0gTog+MDEv RNNdVCd8RinacSY+PHRk BBJ7kNhiLWifEHFyqV1x XFYtZ1h6WzOrLvB8 UGjdF6DuGFZjscpwJb05 dS5nSnHvXfP2JGefG4Hr paR4GJHvtGYjDXxsETN4 V07nu4Q5SRLzLEQk DDC0fNZ6tK0mgDlzadwl bGVmdDsgdmVydGljYWwt WVzaF475GLHmhLpvSqpt LDepPUCyYX67HE58 kYIgn2S8mBC6E2OsHWDd tfztcswskQB3ZVLgDAOj wY22kVKbHEvtAe6hu7J1 l692RDMsRUUjzC83 Jy1ceQihQIEldGLWeD8j xtvta7mgyxmxVqHjJFRl JDm9IMc1FPXnvBgzNmLh JPK5CnN3BZP1yYAt eP3ugQhirzokwA7dFaf+ TUFMRTwvdGQ+PHRkIHN0 pWfsDMkiLIVhyV0pBACg J2l8MzTaVjX0XXxh V7XtCMBbjkenPd10kA3k JeAcUyD7HEqtZ5IyxoY7 WVJymGBsJIdvCSB2C83s v8F3EQMoZIFzIPD5 sUN6oU0edOhfgdsysEWm dDsgdmVydGljYWwtYWxp P492HABloYsaVdHgK5Vf cmluZyBPdXRwYXRp WV61AV51RQ10F9ZmQjka dGFibGU+PHRhYmxlIHdp ZHRoPScxMDAlJyBzdHls FD1fBl1uXSFyAYOr jHdjuGXqAcYtc0vfGHJf BAceXF0ctFslE5NpoYV8 NIGpd8i5Ui16E05jL1Ss dXA+AHYpsYY8aRD8 zM2jRdNiHtU7KOiyR064 XaLqrUBoElbjv9bew4vv nOe1FdPcECNynqUmcXcz FUD6m7HgMn97C78z IHdpZHRoPSIyMCUiIHZh kGmuri4omB8fJw7+PGNv rFV8lIS3xH5zZfLrGuN9 ONckL219LvXszAKk WygrE28uC1DupXZ+PHRy Unb8VMQwgSuyKU4xeOOf GUdbUw8yLXZ7PjMwFxHw EBcmZ5XsYYLkaufl bgvwlRU3NLMuWEAgeI30 Rb4qcZlxCy2yLNAnZCK3 GIItyHQzM4VreN8rVeTl XQKlZZVkA6OcpZSb KCbyE824OVfpFgD7OKBu niNgH5HqWADiyUstJrY1 f2U5Kj9PjYejsQMcPG7x IwHmITj7Q5NeLdz3 RCYegEeeGK4kjZMuKDow Ac1lhDlptCwtJJ0hCOAm rapzg372MpTnb4ylMZPt eIKlIVlwKMM0G83k s6C9PMBkSGNeELB9tOM1 uX3xxWimmyfioFGphAgo psDbyXdzFHzsWLsgS378 IHRvcDsnPkZJTjo8 P3SpCaq6RDIbeKqhPU7i hAYuPSlxIp4obQqkiPin LT5sEZBbhtkgf436PfZq b4axHXTtyAQbZOcm DTP0L99lv5G8TWYcCYFv BSN5tKF7rB6kmFajziir bGVmdDsgdmVydGljYWwt QOzsI741LFCjrMve Nz9CBmu4W0EgQjn6HERu vVlqVC5dcXKwOYfyUl1c gLhiwFlfKG3xDVZwavpx w754GyEed9xcRFUk wTLmTVdoULX6T50dc8S5 GXTlMZRiNPO6yNA8xL9r bGlnbjogbGVmdDsgdmVy gDlyALhfUMipI008 IHRvcDsnPlBheWVyOjwv dGQ+TK47hd10B5WsAnfl Drs5ZVFnKLF7jQE2zI8g GKCfDNfrd8D6lPO7 J2J (more content not included)... [facility] Coding Summaryon 05-01-2024 Coding Summary HTMLBase 64 TussvxqdAIm1sCj+PGhl YWQ+CD4JUMLjJ02xaAOf hY0aG5PYAVrWIhxkAXXK ZYnVAzBstxCyDE3tdFHj ZXJu IC8+JG7gJDIuSjarqRVi q8K3lGQ6F35tco4oAGdx lOL3MRWnMqTtbnbix3wd aAs4GSnwScvyRlMm RXExtV34KAD0lO13Uu26 zFZzpXBsw7axmNd1CtZm LKJbYGC3dXgiDXdbj5Sx NPZuK87gfZTth0G1 IGNvbGxhcHNlOyBlbXB0 iE8rYTmywaweh1yjicom Ycs0ff48eYZvn4X6yYB8 Y5BkfbG1AJIwrXWv RqykpEFHdO9tzwzpa5me qpdxKcMyDVYrMDj9TYs8 BLOfoLfxJcHhWJ17JEQ7 ITBhgvLrI6TvQPYz aMvzMuX6c6K4Bq2YJ4IT MpltS8XULUGYBSomjYN+ ZJ46ry38L9AdCdsgXeo7 SVKmBGI3jKJ5nS5r GYGiESgjd2J5fZG1D2El kjRsuh1ed2yaJERrQFgg C10jrCOtm6C0UZIyjHD9 QTXqfCteDfOqbM94 Oyc+ELQjnVggs7BhMvky r2iiy5fuaIn4QbkyFFVz yyBqgOyxBBP2v7TvQf7y QDLmzWH5qHL6dZ1d KrRmOnE4MSawY838BoSp xIPmGbadV26kV6HwnBT+ SRNyYth9RGFfdPzdTT7y Z4LkEVTdkiqehGNu pNhhBZ7wQHVzyyjsASTs bT5iFJTvK9c4CfBqScW9 GNnvT6PdLOTdfwhiDf01 gQ0uOuRoQaM2QYng D7GwjjU8DUEpkSOyXXxw BBT5X46bx9C7IBQnDDIh OUN1cPN4cQ7lnWmqcyzd bGVmdDsgdmVydGlj ZHfuJHzrH852LWFxmWyo PkNvZGluZyBEYXRlOiAg MTEvMTMvMjAyNDwvdGQ+ WRNyZQW8wTqxTJVk nZZaSVcbCd1luIhbnRez FG7oXTVkphafZQOyrN2a DEFteBHapInkCE1lNINm pxxlm305RaRjGCY5 VUWnoDCiS9TooS6tBjXt JCQvUGYqX7RkcUEjHBok E541BQskOxZ4DTImszZb S2ZzQVCjqQipDeM8 t8G1Qg6My0MmaoyhO9Hr oCApIgKwErnySLb6L8Rx PjwvdHI+CP75ASTjHV77 MEa0JZX5pVuxTKks ANFnR1QpyE6gZzOdMCEp ZGRkOyc+PHRhYmxlIHdp ZHRoPScxMDAlJyBzdHls CM5sKf9rCFOdHDEg lYvrrNWbXlDsq4twBLEd VMjqNJ0gyEriF6EiaGG4 SOFvr5q2Uv46O81pF3Gg dXA+IYUcsQJ6eTS0 uZ5rKxGmMgN1AMgyC733 VnOzrNYhYsneg8gze2yl hYs4BvQ0AREjkyPhsKtq UUN4e2WxBz06V39c IHdpZHRoPSIxNSUiIHZh eIagtw7jhA1cMt5+PGNv jIC3mUW0zE8rViXdOtF8 SIwlH161DkNuzCTf Dicpz3kcs6rwgHx2UhOl PNAtfzHrzNzxNET9m1Ra Au88N2JawCedi9StJld8 fu77wGZqe6I7jBH4 R5LrHFWsqabzoFBahExf OT2oSJUpsmxcOVOkvI2j QTWnN2c0BsFaHzD3WFcz X5GqfuX1CBTimYLh QVBjbZSDkH3vxmkdy3xf dmuxWjWyDSKyGVg6PUq9 SLKgiQhhIxCyZQO2DrA7 WHL9lRUbxD2bfWxf lnzezQ4aGfu+QOL7fQYo yRHCPT5hSocryGR+PHRk JXD2sSffNZtoIZToiF7e TFZfN8t4PvTxVxT3 WYdsE6EctpP8JFFskXUx XMPocIXJsL1uzserx9ti vwvgFzUsBUSgFCh2ESz1 LWFsaWduOiBsZWZ0 EqL8OTI3wHTnxI4dlJlh qntwiU7mNwq+QmlydGgg OKW6CIv5A7HdQiy8LMTf eMebMN8xwZSeFEaj Tc4fhLtjfTcxYI5aPGUq rnlam955IbAjo0ngXSOp pJYjZMngSKD6P67vo0F1 PBEvNGQnLTK4kIX7 yD1giYioloufpHEohIrs ajKdrMbwYSesDZrqW633 IIRypGyaSdWpGSc1Z6Jy Lxt9RPQitKkiPZ2b pUGeLBtqAq9urPejjNxj PO3uQNTnvgyhx451BqRy u3gnGPAssXVtGNxkLGB2 Q44fz3L1GHOpHQFo EWQ0nXS5mS9ngEmvivyb bGVmdDsgdmVydGljYWwt OZmyC322RGOdvSsaOpFa sGs3L8NyQvn8AHPv nCmyVW7rgKYlZVygAq4y uHuuuKkhIX1eYVZyerrr b608BlDhc7ezLUGxbVUj URwjEYB2K04fo2N6 IHLwWZWvBYL5nYP6mM6h bGlnbjogbGVmdDsgdmVy lBvmIDvzXRnjA068DSXg cDsnPlBhdGllbnQg WEurSQv0K9NvUcokhLY+ PK92XOSkTI31yBNebLAp m9oooVb4LfGiWCEgEEA5 gVwwIHadw2EkHZQs M63dhBApb1D9STOyoZde bMAnWiLlqMJ6oV7pIEqr zgofi7xogrzkBrdhf5ec ci73aJ54G46uOWuw ZHRoPSIzMCUiIHZhbGln my1rlM7jCs8+PGNvbCB3 pMG1qM0bEOBlKlU6SNwr J092RdAufIBvIhmz u5ajd2vehEv8AdI9NEQl zpXavZfnQDX5v1HwIf80 E54rFPytONUdUZSgMOVu VGUivKecwj6kpY2c Ii8+ZNFvyLE5pFF2vD4t MeAbJfL9KBjzN459NaIt cULiWmjuU44pA6XjgYW+ CYZyGiy8JFEtqBsj TX2lnJOsYRsgXt5xGFV1 QuVlNiQtFDllX3QmJJMz iochqufmhMA2ETDvAUTu cG55Hq9omVvwQCKz rPCXfX3rxgtnx9azwjrv CsXlWMYnTHx0SMt3YOIx zIftXmHmRRV1PxD2ZDO0 sIQgqD1ixHnceife uD6nZ3CvEJJtpcbcHb17 eF7jHoOrKpH1RYgnQwa+ R2NRPVEJYXTHRZygMWBD LZLXZI79EF31uJHt d2X6sGJ5A2GnWJBjwwjq sitgdIF0WAZuZKQjeI64 sCMnDFuvWd3fq3W7n372 MZVcVTVgvL06Ui7y zHmbFNTspHKNwD9gmkek r1psxfgqYcElPEPuOJj4 BHt0OJAosPskWpZuEAT1 DxC0FMJ5nCCdbE6x jWcgnejarU2jAtz+MDEv XFOzDWj6PhxunDN+PHRk RJZ8mKzfFYipCBXdbM3l EXGyT3r1PoCpFfN2 GEsjF7QjCHCuxbvuZk86 uW2tGeUnJvO1HNctJ8Pu zjY6NBRwkYGzKMmyYKF3 A13yn0C3ZEJfLHTk IMW7aDO7lD7luPvijsmp bGVmdDsgdmVydGljYWwt WQvtF979HBTawZmaUfup CPheYHAmSV79SZ99 aPQwt6C9nEO9T5DpANMc yhnbfwbdoSA3QBMeJUYn qJ72wNIcOOieCb0jp9R0 r982COQgGKMhmN89 Ds9lpJsdIUJqxNYIsR2b hcyin3wzlgvcWnAjPFXo PQj7EIn6MJFzpLvbKdQh IHQ1KiB9VLE8eXPc bV1nyNzuxaatgH9pNbe+ TUFMRTwvdGQ+PHRkIHN0 hSacAZqjQIGajM7gOACp E5c5KtVxDyM2VLzf I8ZjRLEjnapcHc27lI7n BzVcFiD0PFdqN4NslpY4 MWFnbBEbBYaoLWU7S47a q0B2JUMuPBObSYS9 yPV2nM3woEnssrxcuBVf dDsgdmVydGljYWwtYWxp L950LIKkvQhjAm5XBM64 II13E6QzXmacdNCw bGU+PHRhYmxlIHdpZHRo AYqyMYDvNbZkaFvoAA6u Kh2aYHVhBESrgGferRGw UhQgh5ylIXUfPWue AQ1ddQgxA1WbuQX3QSMq g1x3Ye57D16rW1FgbOD+ TPRtpJD4aEW3cM0zEbSm GsS2GOokU407JuZl pJEyUguod5owb3mbsWi5 IjMwJSIgdmFsaWduPSJ0 r1YuDd97Y08rJLqgMTAg PSIyMCUiIHZhbGln zs5aiE0jOf5+PGNvbCB3 wYW1gU9hEfIaPjP3VBhf E517KeSeeXNfWptmT97u O8YhmSJ+PHRyPjx0 CJKzsIwzFO3xfBMrUUuw Lx2dAKP0LlOfEkXyRZvx K2SqEKGlppbukpffjEM5 HOZtKOXrdJ09Mv9z pMttQz4mOFKkJOL4BRLb bZQjH9HwwE3pSeKeEEHl VXFzI6LorTRvBPlqX719 HNbbOcP6DVXlioNr G9DsOIMrqWxtNtR3q9T4 Kn8KfQcoeHQsDW9xUlTn TMc6L9QsVze7AMTlyFsr KD0khSZaJXidMn7c eEwykAinMK8mOSHmvuac g791SqTsv7xuFFZjcHWf UJddTGN0Z97zd9A9FZXa RGNoWJH1tBB9oJ9a bGlnbjogbGVmdDsgdmVy vNrcRTshXZjmM699KRRf kQqqJcJMRpa5E1NnLvj7 ONBykYkqBU3tbQKc BVrfIl7iuIagtQtzYJ8l YTWyfbbwp862CaFzv8if USNkqZZzLKwfXWI5A08y z2K9XQVvGFPoLLJ6 oHO3aA6syCgvncelnWWn dDsgdmVydGljYWwtYWxp N263UEVfuEemGn1KGao0 B8GfXwr8NXFsxRzv OV7zdYCyANizBb8fnMzf yWbmYI2kORCzrvjnm890 MiQej5ieEXNxtSZdSJbq IMV3E21hs8W8XGOf EYZwBXS0lVF4jQ9hfYig bjogbGVmdDsgdmVydGlj VAqqHNyaG454VOAexJho PlBheWVyOjwvdGQ+ GG69cb83E5GdGiigRma4 HGXqVNK9hTM1vC4kUABv XTxhz2X1hRX3R0ClhtLg fr2bu5yzQBQuSDyn Y29 (more content not included)... Normal [facility] Office/Clinic Noteon 04-18-2 024 Office/Clinic Note Patient: RICHARD BOYKIN Age: 83 years Sex: MALE : 1940 Associated Diagnoses: Type 2 diabetes mellitus; Acquired hypothyroidism; Hyperlipidemia; Restless leg syndrome Author: Marj Sorensen MD A History of Present Illness 83-year-old male here for evaluation of type 2 diabetes. At last visit we had increased his Toujeo to 10 units twice a day he has since increased it to 15 units twice a day. His blood sugars are still averaging over 200. Occasionally he will have some in the morning down to 66. Then it increases over the course of the day. He has also been treated for hypothyroidism and hyperlipidemia. He does not require any refills. He is not due for any blood work. He had done blood work while in [place]. Reviewing his continuous glucose monitoring system for the last 3 months was done. Averaging A1c is about 8.2. He is also seeing his dough braker who increased his ropinirole 2mg to 2 to 3 tablets at night. This is for treatment for restless leg. Review of Systems Constitutional: Negative. Respiratory: Negative. Cardiovascular: Negative. Health Status Allergies: Allergic Reactions (Selected) No known allergies, Allergies (1) Active Severity Reaction No known allergies None Documented Current medications: (Selected) Prescriptions Prescribed Eliquis 5 mg oral tablet: 2.5 mg = 0.5 tab(s), PO, BID, 90 tab(s), 3 Refill(s) Freestyle josee 2 14-day sensors: See Instructions, Monitor blood sugars 3-4 times a day qAC and Qhs., 2 EA, 11 Refill(s) Jardiance 25 mg oral tablet: 25 mg = 1 tab(s), PO, qAM, 90 tab(s), 3 Refill(s) [employer] brand glucose test strips: See Instructions, test blood sugar one to two times daily, 100 Strip, 0 Refill(s) Metoprolol Tartrate 25 mg oral tablet: 25 mg = 1 tab(s), PO, BID, 180 tab(s), 3 Refill(s) Toerich SoloStar 300 units/mL subcutaneous solution: See Instructions, 20 units in AM and 15 units in the PM, 12 pens, 3 Refill(s) allopurinol 300 mg oral tablet: 300 mg = 1 tab(s), PO, Daily, 90 tab(s), 3 Refill(s) atorvastatin 80 mg oral tablet: 80 mg = 1 tab(s), PO, Daily, 90 tab(s), 3 Refill(s) fluticasone 50 mcg/inh nasal spray: 2 spray(s), Nasal, Daily, 16 gm, 3 Refill(s) furosemide 40 mg oral tablet: 40 mg = 1 tab(s), PO, BID, 180 tab(s), 3 Refill(s) glimepiride 4 mg oral tablet: 4 mg = 1 tab(s), PO, BID, 180 tab(s), 3 Refill(s) hydroCHLOROthiazide 25 mg oral tablet: 25 mg = 1 tab(s), Oral, Daily, 90 tab(s), 3 Refill(s) levothyroxine 50 mcg (0.05 mg) oral tablet: 50 mcg = 1 tab(s), PO, Daily, 90 tab(s), 3 Refill(s) pantoprazole 40 mg oral delayed release tablet: 1 tab(s), Oral, Daily, 90 tab(s), 3 Refill(s) rOPINIRole 2 mg oral tablet: 4 mg = 2 tab(s), PO, Once a day (at bedtime), 180 tab(s), 3 Refill(s) Documented Medications Documented Calmoseptine topical ointment: 1 josé, TOP, As Directed, PRN: Other (see comment), 0 Refill(s) Lotrimin AF 2% topical spray: 1 spray(s), TOP, BID, 133 gm, 0 Refill(s) Multivitamin, generic: 1 tab(s), PO, Daily, 0 Refill(s) Tylenol 8 Hour 650 mg oral tablet, extended release: 650 mg = 1 tab(s), PO, q8hr (int), 0 Refill(s) Vitamin B12 5000 mcg oral tablet, disintegratin,000 mcg = 1 tab(s), Oral, Daily, 0 Refill(s) aspirin 81 mg oral delayed release tablet: 0 Refill(s) loratadine 10 mg oral tablet: 10 mg = 1 tab(s), PO, Daily, 30 tab(s), 0 Refill(s) nystatin 100,000 units/g topical powder: 1 josé, TOP, BID, 0 Refill(s) traMADol 50 mg oral tablet: 100 mg = 2 tab(s), PO, TID, PRN: as needed for pain, 0 Refill(s) Physical Examination Vital Signs 04/18/2024 10:20 EDT Peripheral Pulse Rate 66 bpm Systolic Blood Pressure 120 mmHg Diastolic Blood Pressure 70 mmHg BP Site Left arm SpO2 95 % Measurements from flowsheet : Measurements 04/18/2024 10:20 EDT Height 179.0 cm Height/Length Measured (inches) 70.47 in Weight 106.23 kg Weight Measured (lbs) 234.197 lb Weight Dosing 106.230 kg Body Mass Index 33.15 kg/m2 [place] Body Weight Calculated 74.087 kg BSA Measured 2.3 m2 Impression and Plan Diagnosis Type 2 diabetes mellitus (ZQB76-KF E11.9). Plan: Will increase his Toujeo to 20 units in the morning continue at 15 in the evening. Continue watching his diet. Continue with continuous glucose monitoring system.. Orders Orders Evaluation and Management: 19513 Office visit - established pt, Level 3 (Order): 04/18/2024 10:01 EDT, Qty: 1, Type 2 diabetes mellitus - Restless leg syndrome - Acquired hypothyroidism - Hyperlipidemia. Diagnosis Acquired hypothyroidism (TGB99-LS E03.9). Course: Stable. Patient is not going to be going back to [place] we will plan in July getting blood work checking kidney function liver function cholesterol and thyroid.. Diagnosis Hyperlipidemia (XWZ18-VD E78.5). Course: Continue on statin. Will do blood work in July.. Diagnosis Restless leg syndrome (TQG58-EC G25.81). Course: Chart was updated with the change from his dough braker on his (more content not included)... [facility] Physical Therapy Noteon 10- Physical Therapy Note [id number]# [email or web address] [facility] Coding Summaryon 04-15-2024 Coding Summary HTMLBase 64 OkyedtosPPi1hUp+PGhl YWQ+BU0LTOVcW41dwLWc fG6aW2LMEIcMNfwwTCJZ BRjGYmTwlmBjSE2vtWEx ZXJu IC8+ZM7yWLDlFigixDKi w7S9cMF6H80zzb2tETob cHL4DETfZgGkaxwee5wy xQb0FQqeCnkzYyKx RQUznL40FTW8vZ64Hl05 jFSttINsi8fkkLg3TyNt CBMbTAJ9fBvhVPemh7Ba WWEqD60muZVag5D5 IGNvbGxhcHNlOyBlbXB0 bF8sJJrhjbggg4dhnuzp Wwp8si57lQEqv5O6mGE5 F2UuubL1KSZzkNRk PgipkSSVsP5omtzxy0xb hqtpVwUpYSUiVSe9DIo9 XTEtdJopHhYgYE35XGF2 KEEntkVyM2UtGERn aGipUcB2n5V8Yc6WX3UF CfecT1LIXJPZSCmpvEL+ EY64po47M6IrRscuUqn6 RZIuKXI4fKI6zZ7a VGQfBSgqh7E3jPJ9Q0Ix dvQeos6mw4skVTDhROgw M05bfVPjj8X7HBNofLD9 PHSmqOxbEtJmsQ04 Oyc+PNOrpBjoo0IbLnok l8hpr0pdaPf3GtpcAAYg ghNktOtzXAR9a3VmSd4q OGNgnOS2mTH5eC3x ThYyHyP5TEklZ858PyOn uDZfAojcB83vK3CckKU+ TQEjVzw6JGVizKnwWV1q O2AqICTohwzbvWIk cLmhTZ8sDKIfqjjrVVTy xX9iASUrM8q1KaQnOjY0 TUheC0GlPQCxebddWj68 zD0yKpDeTxD0THlm H1JljzM3RVFzuDOjNTyk OUW4T05xu2V9PGRxGACt AFI2dZR7uK2ehAmltewg bGVmdDsgdmVydGlj XZmqYKfuA387UGOjdYxk PkNvZGluZyBEYXRlOiAg MTAvMjgvMjAyNDwvdGQ+ IJVtDZG4bMcnWBUt nCUkFAqjUl0gqBjxkRwc AL9uXVPbfyvyFALfpY0f SGFqfZWyrFwsTB2oOGVg sfpyl604UtVgNBH8 VNVxtRWmH9OfwF6eOfVe KWSuDIZxO0NptDFxOMbb I516JJrhPwM8DOXtvrWx Z3XqKWSkxUllOlY3 s3I3Tl1Fs1MhhojlN1Yt wPTvGwQtLkcaGDc9T7Wp PjwvdHI+OR24OAYyUA97 ZRq9KNP1nSdaLEbk MBBuR1MiuT0bJsWqDTYb ZGRkOyc+PHRhYmxlIHdp ZHRoPScxMDAlJyBzdHls CR5jSp9mHWVlAGLj bLrhhKHfAiGbn9jbLZTl RAhmMA6okYnfN2WzuBK7 NCZyo6z7Uh61X05vK6Xk dXA+EFYiaLS3sRN1 mK5qYvQsPpZ3WJuhU710 KvMzsRAuGsdeq3ghu7no tAp8SyB9VXYrhmVdqBgy WUU6f1ZjXs71G32u IHdpZHRoPSIxNSUiIHZh dYnryz2adY8yAz7+PGNv qSE9cRO2tB7tYtGrRjC4 XKweW475DbVyhDRz Qkfyx5zxm5psvBn0BvOe JLZqyfBdbUjmIQB0p7Wg Wo03J7MmuOyxb5LvOcx0 bm22xBYot1Q6pLY3 S1RdFGJaqatnkZUvsDff NC5nPTBxurolADJnmJ6q ZVFkE1h1FtSkLpM9VIsq C0OgzrU1MXGewXFq FSAjvQLCgY7rgmiir3bu lpmaScElNZUiLAc1SLy1 GSImvOcrSnVaGLD3NsU0 YBU5fZFvmN6xtQgh mcpxlU7bWzn+KUI2kHSv fUHTJZ6vDbhwaTU+PHRk FOH9yRxyONpeFQZsjP1s BUHvH7a1MeFiVyL8 SQovA9QxkwK7FHAldZJj JKJarTQLyY8fesarf7xz xqbtAaTsXMKhYGz6HCs1 LWFsaWduOiBsZWZ0 RwT8RSG2hDVigO5unSfy dwwejB4wHfp+QmlydGgg ZOX0MRy0I8KcNkr8KNCm kNumHN0jgDZmHWkv Il1gnCfhmSfgSR0wFUQq zxskp958XcKbe6mgJTIo oHQyMZtwXAG4S91ed9C0 KHIkMGXbCGM9pOB0 dS8wrLbxhymxgQUteJhy mgAseAtlGMvsBSnuK334 IOXeqHjqYhZcGPa2Q2Kv Rum0ATZmmZrfFO4j wZQzHRrcOw2ncUqjoLyb NR4cEWEcknmnn008QrDx x5kyYZXumDYbTGmzKDT2 D54dp7X3HKBmKYRk GYF1pVZ7fM7yzQvtvnrq bGVmdDsgdmVydGljYWwt XFpdW693UGPowNzjHcHb zTd4O8JoPbx0NSHq fGfdWE1lhUBfFHgdCi4a pGpjzRbbIF8kYFGjdelt m226GaEwt2lxXVXnbKWc FWlyAYN5V41zo9C2 VPGgDLPkBEX1wVS1yQ1a bGlnbjogbGVmdDsgdmVy cUbtFApxFOxbD029TOYi cDsnPlBhdGllbnQg EOwsVYi3S8YpRreeiZV+ GT62MAKbAG83lIUdsETy f8gbfUl5TqOhSMZaYDP6 iJmfFCmoh4TlAISy P27fgAQyu9V8FEGniPcs tNDpTzAmwBP4hF8aTBdy ksnrj2utnkdkMtavj5we bm44nW19F68yWIto ZHRoPSIzMCUiIHZhbGln wj2wqM3mHe8+PGNvbCB3 qLL1vF3rWJHfMeD0GUbi K817VtPryBSnZsmu e0fmj9dmhJa0WrL6EPXy xfDvnQywYJA0y4FpSn49 E42zJOabAQDaQBAfVKNk SMOtyOxxez8jeH4u Ii8+CUSfeQF7tWT1nO9i YdJaFyK1MOfhG140OgIj uCGdOmgzV36sG5LskWG+ MOPeJra0VSYpuBlf XS8ffWDsCMtjKn6yNHD3 UdCeDvRrVMatE7UzGATe gwrdnhdzjSL6RTHmQUSb pB24Ck7vjRpfGCRp oWGXrC0mlrcfo8ovljll NjJtXXFvMDy8UUa3MLZg xShlJcJaKFQ5TeG2SOV1 fFUjlU1jeWdtobia sU6vQ6ZeWKNhyzdcJu24 rF8kMdQpEwD6COavFwc+ B5SODIHNPCTEMUhiVURN KRBAMG76ZN23tSKm v6R4iXE8Z1RmCKXomilm qoimvPU4XHLuYEFpdL75 lVLaECikJh2qe1N1w582 UHFsEDSuhC82Le2s zZoqGWPsmBGMoT9grnva p8zdrnfeMnOcTWSqWGx7 AMr0EEVbpFqoYrWfGJZ9 PoS9SZS9pJQyfS0r uLbcwrkuqH4sZip+MDEv UDMaLFe8WzszgBV+PHRk KLM7dPutIUwxCQKzlU6j WNHiE5j9RnQlLpK4 WCxnN9VhLBLyiasrTq60 hW8mGlReUvO8WOieW9Rb pzH9BVGbjBSqFMftZCC5 Q38lz2D1FOXbBDCc AGS9pDZ5cL9xtOzpkpyh bGVmdDsgdmVydGljYWwt QRqeX195DPIzuFmePosf VZrzTVHsZP99LM18 oGSqz5B6fDJ2E4FdMMHm vbaaiwokaJH5LQAeETCp mK93aIUzXGnyVn5em8U1 x931WWQaNJYdjR03 Wv7vsAuoUJZeaXMJrP1o dfpml3pbrdnyQmKrCLNt YHp5UEq4EXVycBkzEcGj HLI9PtA8CUX0fSCj aO2ioDuwbjliiZ2fMwm+ TUFMRTwvdGQ+PHRkIHN0 uAflUAtjTKLstS6rNBEv D3c5OhHqVxE5STrt B9DsYKKbqvqfRi30qU9d JkUnQtH5NQiiZ3WalkP6 QJTwuXBjJLuyBGG9Y98j a0X7PQCmEOEyTII5 tHE3jO4anBqqpatciMLw dDsgdmVydGljYWwtYWxp B557SIEqiYrrLa8OCI18 CV66H7UfBebwnGAc bGU+PHRhYmxlIHdpZHRo VKmlOBLpDdEiqRzhVG8p Mo4pKELjIOPthPlpsHOh ObFcg2nkBJMpPXkb QX5khLyuH8CccKT9ZYMa e0z0Qf40B52vT9QjqGV+ KDCgdQK2rRY7vD1lNlHb YdB8NRdpR296LlSo yERvDzoam5pay4zwzWu4 IjMwJSIgdmFsaWduPSJ0 i1AjHz19T08hQDsaTHAq PSIyMCUiIHZhbGln jj3jmW8fIk2+PGNvbCB3 zOM7xZ6pNwQuTaM1IDyh Y614OiRgvKUoBbkoB80f M4KpmFI+PHRyPjx0 VSOorKzoTV4byBYfOUze Lf5qSVT0AfMuYmYqQZzy K9SeTKWlppnzddznyTG0 ZZGcDODwpK08Dv8g wGwdBk0aMMHzJBA8KESx mJBuR7QerB5qYbRfRWZj VKXnQ4SbbTEsGXegF506 ODkeOjN9JYVyfkYc D4UdLYQgcAlfPvO0i3A9 Vz5WxVfqsUEfUL7eEcMs YIc4P9McJfg5CKVrmMnl QI6pzOCaSHedWy1k yJivhZboME1jKRGwknmr m133TbLws1yeVMVuxPMv WUerXTD1X64pc3I8XODr ECBkQPJ2wJW7hB1n bGlnbjogbGVmdDsgdmVy nPvyFOjxLNzzN756NJJx zDihEcVLEpi2E2NvQgh0 GLKobCboXL1ooHBc VPplAf2ngDeymOlxLU9g EAFbwrpkl040HqBxo0lg ZEKxdNIfORfzNGL4B44p b6H5IIBtPIHiOHU2 pER5pW3mqHrrphaiePFa dDsgdmVydGljYWwtYWxp K479SPFjaVziKt6NVzg1 Z5GlKkd7HQSweGco KB3ydAAvZVawNo5czEpq rKoeNH8mSBRlqzaln549 FiPks4yoBDSpoVUiYZbi VJN7N94ff9E6IMLl LMXaSFC0zRP3rY8tnJhv bjogbGVmdDsgdmVydGlj EIiqCBxdK946HXWsnZho PlBheWVyOjwvdGQ+ VB12hb21W4IfKjllTxn4 BDObQCV5nDD7tZ0nKEKs MQtqm1C8xDW6P5XappOv fx9dk1zgBVCfEEpd Y29 (more content not included)... [facility] Outside Recordson 04-05-2024 Outside Records [id number]#[email or web address] [facility] Outside Records [id number]#[email or web address] [facility] Office Visiton 04-01-2024 Follow-up visit [id number] Richard Boykin 1940 M Date Provider Department Center 04/01/2024 SWEETIE TRIMBLE [facility] Family History Problem Relation Age of Onset Stroke Mother Valvular heart disease Father Family Status - Relation Status Age at Mother Father Level of Service:52849 [place] OFFICE/OUTPATIENT ESTABLISHED MOD MDM 30 MIN Normal [facility] Coding Summaryon 03-12-2024 Coding Summary HTMLBase 64 KgypruipIDw4qXt+PGhl YWQ+JK0WDSGxB60nsLUc iL1nK2QEMWmESfqmIKAX REtVQdCvxxHvKT8pmOKl ZXJu IC8+HJ7dPRCfDyhefKPd a3A7qAA6T42ess7dQTmc jEL3HTIlHeUxsvpan0nu eJw4EFwtIevrJeLb VOYwtW40UTO7sG13Tl94 fEYmlKMzk2phwIy6BiYd XNNpPIF8aTknPPrgp5Lh VFIyC86eaKCki0O0 IGNvbGxhcHNlOyBlbXB0 mM6sQJjybapdm8mcporw Cqy2ck46gTFtl3B6aOB8 P8PyfuZ2AYOvvPSc EpytjGPJiT3zbabun9et oigvTeUiVVZcAGa9IAx3 WLZwpRduBrVkWJ40IOI5 SLFzwxSdA4BdYDAk sIvlQdQ2e6J2Nx6OT6RW BreaR0JTUGYRTUkwnPM+ ZX78ex51Z5JiGbtpKar8 LWDeLUA9vCA4wZ1q PGJhCWdal9Y4rDS2J1Os eyQcge5jb6uyUOYyWDyu R01fdJUgw9Y6GPQpjQO1 YZWvlEvnKkXchF23 Oyc+EHPphJrnj5WeAxdv d4hng3pfjVz2ZmxyMYDd zdYwxKdsIXY5d2UqEf9r KCRdfAC9hWU2bB7l YnOdJrL6FAufA647GgIy wIHjAivrF14wV1CaeRE+ OGGfQer5IUDkhPkzFE1o M3ViPFLfzcyrhKXv lPhoVM5pIRDbkisiIYNd pY4cCNQoY4g8YsOdUlA0 CKqeO3LlIHIyuzszJs57 uD5xLzPfJhI9CKvm B2KyecF1QDCguUFxGFzu MWL6X63pi1P8AZLvWQXs OUT5nMC6pI9gfEuprvhu bGVmdDsgdmVydGlj IHwxFKnpB540GLHxsRww PkNvZGluZyBEYXRlOiAg MDkvMjQvMjAyNDwvdGQ+ ALAzPCK7xBzuKOSi jILpSZroTu4ojDosuPre HC5bFWSlpeeiOXJdkX5s URMncWCcmLcoXK8yVWBi iwuue238OlWmEEJ8 AXSjqCEbU4ZjeO9iTvKh RKUnUBYuX6DibJUaDTzi N658ZNmeVuW0YOAukrYa I1KyUMQljPiyEyH0 q1G7Ui4Hm0SndtnfM1Ls bCBhNmYxZvsuTOe6J7Gu PjwvdHI+AR40HROzNR94 KCq6KAD0dJwtQTbg JIUiF4TsqW5aDvIlICCo ZGRkOyc+PHRhYmxlIHdp ZHRoPScxMDAlJyBzdHls UT3mEv8pBMBiIABe qHxorAXyAsEiz5ouWKOa OAkdBX6umZomC7HrcHQ0 LPNdj8e6Ge56Z17fV7Zf dXA+KVHzaRN7cLV6 zQ8bAfFyZvU2WJuaU830 KfEgmQTeIesot5bwt2rb cDv1EzJ3SHSqkyNwnAgp ZIR8h6WjOl48E54t IHdpZHRoPSIxNSUiIHZh dBbupp4yqG0yFb6+PGNv zBY7uZX5mR7jMmNrBdH3 DMvgU235ZpKsgLPn Yjqgd7egb2vweXa4NgAf KGDcgbEzsFafJLC5i9Qp Ts51J4YfeJijm6YeIpr4 fc25sGMvf2N2uNW4 U7OmAPDjcrintAVfwZzx IB3xPHWpgxubPOQbqQ0n MNMyJ7i7ZwUqSbP0GAfk R1LpdeK2IGKwzDOp YDVcxKNBkF8ecqeij4ah oihmMlIgERMeDXm8TPo5 IRLjuEguCmCcLWY6VcT2 DKU7iLDolQ3vcJvt vbgyzF2mNco+TNG4kQQc bDADOD5sNecveEA+PHRk FZN4sHaxSXwpADXubC6q WCMbH5n5QdNoNaK2 ADblM5YcxdO3XZZwfFXw RBDetIZZtI9fppbso7ao tgorHiCmOYTtNYg3ZKp3 LWFsaWduOiBsZWZ0 MsH4VKE4iYOetF0giNoc kijocF2hGpz+QmlydGgg KSJ1PMr8Z7PdEuk0VBMq dGaeSQ3scBXdKZoz Fz4ryGgyfDfnYV9bFBVh vtwdv545SoDqr5qsUBZm tBKiGFpwSYL4H41fj0O7 ONDtPFAaLNL9wTJ2 aQ1fgYoyjabedVUnnCeu gpUrkVonQZyxPJynJ738 ZXQsrBjjCnSsJMv5Z3Mc Cgw0DVXxwRnkKV7z hGJcPHwtBq5baGvdcAxu MJ4qNNIixiacb104UjSn w8qiVOHwqFFvIGziJAG6 D69wx7Q5CVSeLAYm XQM4uEH4cU6qxDljjasi bGVmdDsgdmVydGljYWwt CVehR988UQClmSktRrLo fOn7F8PtEgf0NCYm zCnrWX2taQIdUKfgXc0k cQzmiBupSC9iEELbxwmr t896AePkl0evUVLegZRt GBhpBWM6J05dz6T0 UVFzWKUsWMN9dZT6kK7s bGlnbjogbGVmdDsgdmVy tJqgELxgADgtV334ETBd cDsnPlBhdGllbnQg QAnwWNn3K5AmAxnndKS+ AW53BPBqAE55nHOhnDRr q1ipxGh9KfQgRRCfDXZ1 zChoHOqcl1AwNNYz H53dmBPlw8I2CRBsbUyo sJTqCwHxzGO3xY1sSLfi ymliq0pcdfmxZxlbo4bg ln32mG69O71fIMbu ZHRoPSIzMCUiIHZhbGln tl2laN3cEo0+PGNvbCB3 dSF4vH0rMWBhBjP3EWle I858TsSkwTSaNlkc u1qrd5bqtGt9VyV2YTUq ctXzbXrxQTD8n1WcIw35 M90mVNeaJZPqJUPrIGNa CHSvuAvior1kdV0q Ii8+SPXhtAJ3eAS8rT7n FeZjEqH3BBgyJ060RhJh rDSgPynoM37wN7ZmwQJ+ IMGfXvl8VZKhuNgq MV8mnNKjITxeNb6xBFF3 IpKcElLhUAbvD0BnHFSe iznxdykxuXZ3RUCtTHEh iN02Nu2rjJzmWRPq kWOFpA4lcwmeq0lpigth UuGmXEXiNTj6NFt5TXWh hJqhXwXoZYT5OiV1BSH0 uXWctI2ffGpxwjdy nE5cM3MlDXWnhjguPv10 hM0pEoJtPcU2LKzcGwr+ E7LBLTGPFTRTDNrrWPBK LNZYDA11AY30wZTl f3T6vAR2P1KgYDMsnaiq ataawUS9KEBeKCUcfK79 vRByGDjwAp6zw1H9m624 LTXfEOWkaK19Ll3u kBkgJQEjwNDEeK8hmeca z6rtcxszMpQvQEBwARx7 SHa4EYMgiOysMoEmUXO6 ZhM4MGH0kFWrjU1x sCrnzchlkG1sGwe+MDEv ECCnBHq0SttrdNH+PHRk AZV0dWdrCTdzCPUvzI4i SFUxF7u5YwIuRaJ3 MBrxB3TmNAXgzuqqHr90 yF3oXaNlJrC9ULgoN1Wm oeM0TURfdTTrVJzuCMY2 H86vj3D4ZYNfATTl HNH1dLC1wN5btGfxwzmj bGVmdDsgdmVydGljYWwt AWjkF265LBMwbCrrBbqv WNtpDJMbWZ61EA86 yDUis1V8pCU0Q4JvZXAj ihdmczxgpWK0NTYpNVBf vD46gDImTEoaYd4ar2A7 w926OOTkHGRgjR84 Fo7ioYrdFPUruPLNmS3j hbbhh0cunelgVxDqTTTb WAn8FGj2PGWidOhgVxIr LCT3NdX5DZV6lAHo iS6erWsbdgphjD0eJrw+ TUFMRTwvdGQ+PHRkIHN0 uZzfLBueSQMsgD8nIXSa U0p0RcLnDeU4ASxb S4QqASAzanstDd33lY5k BmBkYcT7OQddV0PpsjX2 MVZmxQRrPIecNLU3Z51b v3E2LLUqOSXvAXN1 gKD5qF0xxAatmbgrbOCh dDsgdmVydGljYWwtYWxp N706JIHroWmbFs7OVQ06 GI20B0BaUfxyvJOw bGU+PHRhYmxlIHdpZHRo UXmrKRVwLqCjyFqpEI6s Cs0jIVCoLKFzpRaniMZc YpZtn6skHARgTLig UG3ojKtdY4DkaOD9ONIy h3k7Xx40D07wY4HjzDA+ IKWdjHV2eGG6oE8aOcFe GwZ7OLxbL489QwHp nXEqQnjra5icn7zijZo4 IjMwJSIgdmFsaWduPSJ0 j1UiUm01Z42kZJqfYZJp PSIyMCUiIHZhbGln mt2wyK1zWr3+PGNvbCB3 qGK1pY0tSgQtWsE6IGby B426LmZxlKBxSqloY55o R7RjhCD+PHRyPjx0 YCPrxTrjRI5mdUUvYInb Od1hVSF8IfTxRnWcERcj N3JqZMUcqwzyivqmlTG1 ZQRzMAMahY39Dh8t vPjuHu8tKTRzDDQ7QXLo dNZoJ4UbkL2iWbIgNPAm QOEsW3MprUScPXvqL915 MZuqYyL8FTSsaaBn J5YeYAJtwWpeWqB1s8D1 Yb9YxAatcMGoDD6bQnKn ESn5W2ZlDia1GCEgdYxa UJ5vhZJeEIotRl6g gJfcgEbuAX1uIZVtinvl t410FeDuz9xcNZXqzZHo IPouUOZ7U86ug9Z8XFHj WJIdJYK2dGE1eG8s bGlnbjogbGVmdDsgdmVy jPazHCglBOinS357QWHi rIvxRbQQNik6F6NnAdv0 AYNbxKibAQ7asMXj DXhgDi9glStdaBivAP0e VRXwdhkhz101UlVge7qu QBLclPHmLOyzGTW0F42c l9L5SZQjJDGcTWV3 oUL0gI1onXnvqnvmvOXp dDsgdmVydGljYWwtYWxp Z486SSIjdOlbTy5LTmh1 F8QiAya5KSMiyOjk LC1xoKWkBBbgTb9wfSam yUhxCR9nKXZzepmek730 UzOjq2vvTUXetZFnSEte RKR2G85yq1J5MNHx BWSeBLN5aJI5rY1zmVqz bjogbGVmdDsgdmVydGlj ZTdjSMizL361VXEfaXqr PlBheWVyOjwvdGQ+ JI08up77Z4MiUkuxDcg2 EUBeHQO0pHR3bM7hDWDr ZBkgx3W1xWY8Z9SfsvMx hy3ap1sbNTChXNwj Y29 (more content not included)... [facility] Outside Recordson 03-04-2024 Outside Records [id number] #[email or web address] [facility] Office/Clinic Noteon 024 Office/Clinic Note [...] All Problems Acquired hypothyroidism / SNOMED CT 652723186 / Confirmed Afib / SNOMED CT 05243977 / Confirmed Chronic renal insufficiency / SNOMED CT 4129327150 / Confirmed Degenerative arthritis / SNOMED CT 7940787027 / Confirmed Gout / SNOMED CT 273579053 / Confirmed History of psoriatic arthritis / SNOMED CT 368028615 / Confirmed HTN (hypertension) / SNOMED CT 5892468460 / Confirmed Hyperlipidemia / SNOMED CT 25328788 / Confirmed PAD (peripheral artery disease) / SNOMED CT 3380835094 / Confirmed Thoracolumbar back pain / SNOMED CT 691711696 / Confirmed Type 2 diabetes mellitus / SNOMED CT 417803598 / Confirmed, Active Problems (11) Acquired hypothyroidism [...] 107.230 kg Body Mass Index 33.47 kg/m2 [place] Body Weight Calculated 74.087 kg BSA Measured 2.31 m2 General: Alert and oriented, No acute distress. Neck: No carotid bruit, (more content not included)... [facility] Miscellaneouson 02-26-2024 Miscellaneous [id number] [email or web address] Provider Orders [id number] [facility]-11-2024 [facility] CqippqbnCTg9lBc+PGhl YWQ+LO6UUWJcX30tbILj gG9bN9AINUjUIhqcFXCK HNsVDvGjhiQjDD1hhCMt ZXJu IC8+NI7dTPZbYuoxpFLq h3X5fBK8K38xvt0vBPvm yZD9VIHvGsPazgqod9jq sUb7OXfhBghoTfPm YOMtlU88YVU5bA93Gx13 jNXtuRHsi2jbbHu2YgSm WLRrDBQ1yQhrXWlru9Fk YTQmH61spWLrg3S1 IGNvbGxhcHNlOyBlbXB0 jD7iTLqqjdwda3zvhojs Pvg1lc10vHVkq7T3jVC0 I0SpywQ1TYFanWTp GnigoYPUyP6wdqifv4pv jqrgWsMkISSxWVn9YTs0 EGBegOrhIySvZQ77QXG7 KMHfraHcH7WyBEHe uZwfGlC9z4A1Dh4NO1US NeduH8IJLCNVKWnttOD+ EW66xc93C7LdDzpmKoi4 APMhLWK2iDE6sS0j RNAmOKkbf3M4dTM0T1Kx raVcuo9fh7nnVBMqDTsn D96pcGRyp0I9FPCdhBP6 TVBnaLxiEoMyqG34 Oyc+RHRwpQldx8TaLdxc k7hjn8djiFy7TsttPMZk deYouRfoOZN6u6BjUr7w DXQjnLD3lVT8nV8m KhHdSzB2EBziE981ArEx gQKaDmazP90fF5VoiBN+ XFUfBda5UCUvzUliQF9n H0YwSWFvcobgvJCe ePiiJT0mTYQpduihQMQn bD1qFFNzA2w1BnOtSuR4 WSypM8KrUUJojtlvJx53 rD9dTpQxCmN4DRpi O8DxjkX8UKWivEThJQmv FVP9K90xg3G1STXmWJEm ABS0yYM1uK2mdGcsazzw bGVmdDsgdmVydGlj ABewDMnjK307KEStgYew PkNvZGluZyBEYXRlOiAg MDgvMjUvMjAyNDwvdGQ+ BFXbBKV2lQtzWFKp wSZeBLpwCz1vhZyydWur IL6gECBnfumfNMNpnP1s RIBgdACoeImgYN8nWQGm qwzqg338MuEhELS9 ACUfxAVuA6WmpY9iLmXh UDPqLVSjS2AddVBrUBwq G526JPlgKsT5SDEgbhMs O2BvOGBscDkxIgM4 x6F8Qo6Yb3FgmtxhC2Tg aVLvVoHfWdeyJWf4Y0Pg PjwvdHI+TT00QKHpXF73 IUb1POA5jUooAIeu TNPxD9QknR0pXlFfSYKq ZGRkOyc+PHRhYmxlIHdp ZHRoPScxMDAlJyBzdHls IL5yRs1oMSRmNKIy hHpxwZCxKiWfz9ixRQSg JPyrNL1fkLkrZ8HnlKX7 THLze1c8Bb96M27lA7Md dXA+KGWvcQE8xTH4 oX0bOyOoOzI3UXypD705 YhEjdIJlJchvy3hoi0by yMl6JjG9JQVbfhTppNib RDE6u0TqAb34I84j IHdpZHRoPSIxNSUiIHZh tWhtkg3piS6iVv6+PGNv fSU9sKI1zF9tYyQqSqN5 DWxzA576YkUkzUZv Zvlws4ctb0kwhCv1JzIk JMLrlkFcqEwpSQR3x7Cj Hx17Z2HjgEqoi5IkEzt2 ef60jFFop0A2dWI9 C7ZeQMXvtxpogYPlrHsj TR6fJWQkwefvXWQhnH3z WQSnF6j0YsPqKkZ5LOjp V1NcqpN1ELSxqWWc LWZpyCZOrM7eewcru8le tamzPqZqKIHhCCs9RAm6 WLCcoQlnKoJrXSQ1XtR5 DNG6tWZnlW1smJvz zedmyF8oTcp+TNC0nKIj xQMZVB4zSuhkwOI+PHRk BKI2aTdlUVilEUCwgO7e OMKyC4z8PhVoOlF5 XRudS8FabeO4UGLwaAZl IQWmpBDAoP9eopxhz1fj lmzeTlZqGUNhWOg3PQx5 LWFsaWduOiBsZWZ0 SmR8DPU0bZOdcG2juMky vwssxS8uGos+QmlydGgg HZR8JCr7U6MzRes0UCBt mGmgPS1eoYTaXVks Jn8umGooyHeaSB0fVCAh qjkgk785BaThq5eaIHKf qLIwCNjoZRZ9A72ld4W0 ECTyXSMiCZJ4uOV3 lU1mqAjhuhauwTHwqChr ccHidQdiIAreMKrbB838 FLAapSwyQyZpOHs2Q2Tu Sve5XMGxyDtsVF2a kUCeMBckKc7lvKlmeLlx ZC6lIQQytwkpx248QzIm i0cnEDLmzGLiHWrlUZA2 P83bg8J5ZHAgMYNi NFQ2qQF8cT5ooLanvqlm bGVmdDsgdmVydGljYWwt HQkfD923YSHxlMnkCwWw iVh0V0RuPnx0WPIg tNdaCE9bcVUwGYukSm4c zQappTqrYU6bYOAzfxxd l967XvAbb2dmWROqsQSb VXbbKCP7S96ya2N8 ZMPjDCMrWKH7kWD5gA7w bGlnbjogbGVmdDsgdmVy xPknLXpsINtvD129PWTn cDsnPlBhdGllbnQg VKofLYs7K1OxXeodnIP+ QR03CSZiSU52eSXtiYYt x0fzeCj2HdLrNXIwEBH3 yPiaJFcxm4CrHYEt A08wuBUvn1A1JTZcbTlr oYOmCuNfvKV6nH7cVUme rohoq2ggmqlfAhorq9yz mx14uB72B93uZGna ZHRoPSIzMCUiIHZhbGln gg3luH5qZc9+PGNvbCB3 aWL9sO6bBAJzDvT9VLmx W385PqSroWWiOofb s8fwl8wfeJc5CvA7WYBv bcHhpGewGBU6m6ItIo42 D09jERepREHdFOCkHRLu FMJwtHozfm1zwU7b Ii8+RYXzzKV7mVN0aC5x RtUmDbL6JGdfB003OzCe tRQlIreeJ73gT7JfnZM+ FPNeXdg9UVPhgQkz UI6ieEKsBZhlJc2pMSO8 ArPmKgTnTMneB8VpPGMt khqlwzkbqHJ8PERaOLGi mB45Gp4viXarRXRz iKWErK3zhbuvc4rxowfy SeCxGDTuFYs3QRs4YWZj iLilVwPdCWU1AjN3VNJ9 vCQilB6etUgknyrb jT2sR4NnNNDxbbpsZg83 dU4wNlZaBiA7HWopZxj+ X8OOZJYUNPFHXNqcHWCQ UWGLVK41UO77zACa d0T8uVS8H3PwWNAyrgwt gsiuqXO7JELzTZZwqL56 uZEmOBjnQm4oz8L7g234 LGPlKYFodQ54Jb3h dWslXIDuiDWFuZ5uvewd q0zxkveuAeUyEYWcGOs7 TKu6WZOdkOghBuVrTAJ7 HvM0JKO9lXGwdB3n tUumajxqyT4sGhs+MDEv LSGoDRw4SowwvEP+PHRk OZA0dQnuKTqkLPUtzC5s MFMzT3e1TqIqTqM9 CMdvX7AgGYEzxnenMb04 kP6fObSfIyA0UUmjZ0Vn dpJ3XXYetSXiWGoxVOI4 Z33ek8E9MNRaCPUy QHL1aRN4wW8reJxijvqy bGVmdDsgdmVydGljYWwt HAiyB181AXQvnBpwBbhi FFhrYCXwZN53HK67 yQIde7Z9sUB7E5SqOBJy dwlnuakzdLP1EDPxZSCk fO33dWBdOVibEs4ch6V5 o965ZQKbUEAxkK91 Fv1xiEtlSNZnzQLRzJ3f kzbeg3idkzqpTgMcWTEk GDw0SLk0DKNqdDjrCzOe OSG5YwJ3HVK1oZSd mG7fwKjvlzymjO2wLsw+ TUFMRTwvdGQ+PHRkIHN0 kKlzJKgjTJMgtH6lJWGm H4a4ToFbErL5SHfd W1MmSTQuwsjcMl26hC4c UqAbKgP7JRjdW0ExaxH7 AMIvuREnBYxiBXB4L62r a0C7MRJjUMNjJLE7 wUD6uX8kzXardkcqnZTo dDsgdmVydGljYWwtYWxp N451VSBleDqbRxVnS3Fy cmluZyBPdXRwYXRp MF62FS88EM99H1UpRxti dGFibGU+PHRhYmxlIHdp ZHRoPScxMDAlJyBzdHls XN5kCa7yBNViARYa oIlliAGrYnSeu0boUTDz XKqjCL7ovNbxI3JooHC7 IKDlf9e3Jx57E77nF8Br dXA+ZNXjeIH2mLO7 nO1uGdCyBwF5GCdcS362 McBxvVIaIewka2qoz3pg qLp5UnTwHXWeclOkjDnr WPI3q2FpHp21Z69l IHdpZHRoPSIyMCUiIHZh vKjpgf1ocY3rHo1+PGNv rGV4fJE7jS6cDeFdSxY2 IWstF055JvWqvBGt YbpnV66aI9WctIE+PHRy Vdu3MELvcFwkOE4mzFXs SGahMx6yLXR8OsNcCpFn RCnpL2DmHHRkasxm xfjgkXL3SZNzATOzbO62 Xy3xyPseDp5sJOVaIXS8 WKNkfPUyA2JvrB6tCaDa EOLgYPYuJ1AjzRLy SJotL228LFiuYbP1ULNe qrQzX5DtIEFahJsnZaA9 o1P9Lt4SeOmqfVGiTH3y IrEtUHk9Y6IuUda9 WJFxcSxlZJ8gtUIoZWct Ww9bvSndwWmmMP7aBJKk tsvtt861NoChq4cfFDYi qIOpZFfnYFM6D44a b9X0WTTfNRUpGUD6yPU9 uV5huLfoiggalQUczXdw jgXwvHcoMRisRDcfE451 IHRvcDsnPkZJTjo8 X3CzNhn6FYYaeYhyNC3k qMVkRQlkWt7lwUfjcIxu HM9lDMBhtmzgc816EyIp j7alDELeaWYuZOsv EOX7I94zo2D1ILLmPONz PBA2oCR1oD3fsSfgsbem bGVmdDsgdmVydGljYWwt TBdpH261DAVovAlj Gr5YGzr0W7GgMqc5TBNv hRpmSE0erHHjTNnoHr6g tAsqxYnfTB5tJWYhgufy c177HgDdd6jiQMPe iTRkCNfiFSN0Q50jp9W0 WTAgLJGcGOL7yGV3rH0x bGlnbjogbGVmdDsgdmVy nRdlLKxpLOkfS989 IHRvcDsnPlBheWVyOjwv dGQ+ZK41ir04J8ZlYlrs Zru8FMSmZFT1yDE3gN9k BKQwBPyqg0H3qAJ2 J2J (more content not included)... [facility] Provider Orderson 01-29-2024 Provider Orders [id number] [facility] Coding Summaryon 01-26-2024 Coding Summary HTMLBase 64 ZdvypqcsATg3wSm+PGhl YWQ+VF3GNSItW62rvKEs eZ6iN9IZBGyWXhumBUVS ZMqCXoWesmKkPO7hmEAu ZXJu IC8+QB0tCGSdCrwmbNJp s0W4oZB3E40xav8hUUzs vVM6KZYaGdUfvzjpp0xy xLk4DPduEcjxVbTk VBZjqO20AXQ4dS76Zb60 cZIfjYLfi1bpaWu7QrUu JVCpBBW7uTsrASxsc9Sq KBYaZ34bgVYgf6I0 IGNvbGxhcHNlOyBlbXB0 wF3vGDirxhdke5ypgthc Sld2rh26xUFys5A6iNE0 Z0MqukT5HCHowKGm VanvlJLGtO6izwuew4td hrhkHcRlIGTgETz6SJu1 NJKfiLfgPpDtFB10TBU0 AYLpyvHeV4TzEPQv nDamJpI7e8J3Il1FQ6GH JqfmQ0NBDMXUHOhuwXY+ JO91tm68E8BrSttnMsi0 NSLaLUP2uFD4tV2v XUEhBCgkn9E2cVT2I0Hg jyDnga4vl7woLMTuDOnx T47umWAtt0P9SQPyeER2 XMAlvIwnTeXcoK31 Oyc+DRXauOcrg0KgTphu t2eai6xcaCw8LhumOYPr ezCuvGfeJJP9c1WoZr1g PYGuwDJ5cAK3aI4z VjUrBnI1SXylI073OrIn sEYyJvfdC31wE3UinKW+ BXWjKbx2LOTbzFpoKV6m A0QnBUIoreiygCTw nApqLQ5gVQObkrryJPYq wH8dBHLcQ2z2JsPkFhD1 VGbaD3QqHULsxfirBa21 qN2uAjIjUaK2UHwz D5IituC0FVDttTUvYAkh KNK4P06dm9Y6XVWvHETk EHN3lCW6pK9aaAkmfjxs bGVmdDsgdmVydGlj GOouRIldZ525AXDtcOmh PkNvZGluZyBEYXRlOiAg MDgvMDkvMjAyNDwvdGQ+ SWGvOAA7sWrdQVZs oUGgXFscTk1pzHgzmZev VG1pYFByolsqIGBolW6a EJVasDTqjDmvMN0tRBLb rpdfg592CsQsFFK0 ZCOikESgN0FfaO2jToGz DEIaPDUvF0HyeJXrHXag O018ODrcOvX5PIXlyaCo K6QyVSKgbArrIeT7 q2Z9Mw4Wx7VtdlqnY6Au yRWxRsRbHjdjODd7E3Eu PjwvdHI+YI73EZPwBO66 KLq2NEV3iRygOQqe DMJlP2QwjR8kMwBaOTMz ZGRkOyc+PHRhYmxlIHdp ZHRoPScxMDAlJyBzdHls KL8kEo3uVUDySRJj iClndPZeXfZao4bwXTMj IDnhHP1jwEieB7AayVU7 LODnk4l0Uf91R54kA3Ut dXA+ZEKdhME0hTF9 sI9aYeDrCbD7LMpkI224 UaRtqJOwEgrrc6xln8bm sNk2LuN6HYHcscGfcZgy CIB8j5YjNt32U28u IHdpZHRoPSIxNSUiIHZh vTrtag7ftJ4xWx3+PGNv tSG0kMC5qP8iVhXtAnP6 FFkfL105PfXyaLEg Aecfx9oex6ukaCh1DxTa GSJguwDupDdmKWC7b1Fm Bu64P6GmmAamr9DsOcu7 ea88bAQzg5W7eYV7 J5KiIYTbfdeegPKthQmh JB1xDQYxemzhMVRrcR4s BTQaQ2t8EwWaNfS1XAum X4JudbK3UFYehHFl PKBlbBKLuY3ejzklo3ue pmwjFmXwDWZcEZv4HOa4 ADUldMvvCfUtFYF0HgC2 ZOW2aDLeaB0unCum ljwyfR3nXpq+TJM5yTTh fVGHBO1kUgjaoCI+PHRk STE4fEjvVFnvPSGefP5o NDJwY7h5VkAtXzY7 BMgnU7EpfzW8DRZcqYMe HFNfsVCBdR1vfltsm1yl zhprXkRoUNHwBBy2OJj8 LWFsaWduOiBsZWZ0 XxA0DEU9wVLqfP1kgAvj orswrF8qVlp+QmlydGgg CRW1SLt3G9BaWyu5ASFk lMheYT3veGEhUNiz Sc5afOhvfDgvBX6gZONc mtrmk273SqOcs7rcXCYz hUSlILnrWOZ6U26gj0Y3 UDHlNHCeANV9bHX8 uN8udHkekfqoqRFqeSrm kmNslYeqAIokGIxpE770 NTZqmQpcAxQrXIl3L7Gy Kpr6GDAjlBsyXK4i hPCmSUwrWt3sqQoztTdo PA0wRYQsemmll295IyAe a5rvIQPntWRiNCqcWMP6 E60ni9O2QRFnOBKy LLF6vYF9kC6trAwwiuwr bGVmdDsgdmVydGljYWwt WTjpW531FTOxrGjwTqYn oFp1U2ZgGyv3JSPb qUgtQO7naOWdDOdcZy8l dJyqvYgzNB6eGSAfrfrx i832ChQuk9hkTNHgmQIm IDhkTCJ1E61vf2R1 SFYdBNMgRHA6tCI7tZ0x bGlnbjogbGVmdDsgdmVy mNuaSBcmIVsxY020BQFw cDsnPlBhdGllbnQg SXdbQFo8D7LqYdbfnMI+ FW31YJHnOE73lSWpcWTi a7jmsXv5EqGjJBXuUYO9 rJzmIRdra1InHYHa Z04yoWLfy7S0FPIzxUyy uUNzObDjeSN0gC5sQMhq kvcxb5uxxwjcEvpvs3ka gc03lT47X91iOIin ZHRoPSIzMCUiIHZhbGln ay3naI7uYf0+PGNvbCB3 gGR4lG4uAYPpYhG5EIkh F615AiKatHNqTzpl w9mvz0qxyKe7GjZ9ZAFk stFecGkeSTL0s3FyHc27 W55lZNwnMFFzWUNpZSCc ETDkbZyazw7riW2c Ii8+PGHdgYX2yCV5sN1i UtEcApQ4OHgyS836WfPa rFGlZwpcS28iG4VchDB+ NGTvNts3PKQxsFai GE0hnJBpIMtaNq0hTOV4 HpClMwGaNApuB7VxHNPd hxlbvyrowOY9IXBiTEEq pV72St1spAvhXDIb aNDMaT1bwxhff1uewbve PmQxRIHcKXa6AUl7EJFf nYryPbCwLCO6WuG7HWN3 zTSwmW5glOxlvknr eT4tR2UtRSIbmiyoIc22 sF2xNiWgFrK6UBggLwo+ O2OYUPQVTUHATFnrSHME HZIPPH65OO35xBHz u8R4zNV3P9VoHYKetflf jjoryDH8TAUjRMTjsI87 aMFmSGluJj5aq8E0v689 XCGkWRHbpL16Ea1j dJkwKINiaDDRqH2ctocp r1uwmxcrQnOiKZHmXIy3 QUx2YAJtwSetXoAsWTX9 OtJ0YIF6gIKleL3x zHyrsdlztS4jNrz+MDEv KHMaOPo8JtfhfDA+PHRk YAY0fFkmHGmnPOEpjB3h EWQaJ0e9OiKnBkN8 UOelQ2RrMYMfhfxpCp14 cB8eRmWfTiF8PDfeE8Wu ztW6IMDlrJQpLFrsUFJ7 Y20iq1M4OFBwQGRl VKX4yOK0yT1zgSxxlwpa bGVmdDsgdmVydGljYWwt GYgxW937BJTxeTreDwnd EHkjSQEbLS63SU92 tMBpz0P5cHM6T0JyAATg cgvqcbmfpTL5BGQxHHHj dE92xMSzHAwxGp2fr4S3 a108YGVdLHUfaX60 Dk0obPzmMFOccDWVzX1a vnlqs2kpkxlkLwZvFJHu WSo2BVr8IVKjjOgoLmZb CJW6QsA3CIP9rCOd wY8ckMgbkgzrhJ0jIqg+ TUFMRTwvdGQ+PHRkIHN0 aFmnWCebVRIusA8kFQDn D8o5EwMdKgC0YHkk W0MxDKWqpiqpFt32rO4t RkOuReE2QBfkL3YxxmK1 EILcoPOtGCdpMUX4B40g n5I5WXIhLIXbMSE9 mKK4mN8whAmsrgabhIVz dDsgdmVydGljYWwtYWxp D575IRYxaIhpKgJxH5Qd cmluZyBPdXRwYXRp RC66FP72PL56N2MzYtcy dGFibGU+PHRhYmxlIHdp ZHRoPScxMDAlJyBzdHls BE8sTk3jFTXoPKVy bDacvZJgFwZyw7joLNEi GPwhPY1rfPhrW1QchZB0 KILio4h9Kv83R65xO9Ek dXA+ESOkbTO4cNB3 oN7uNdZiQdT6DVfyK490 IlQlmZTuVayvt9tfk5ub wKl3LdReKPSuivOriUxh OGO1j0UwWw84V91u IHdpZHRoPSIyMCUiIHZh eOmhtu6agO1rNc3+PGNv jUR3dZD8zB7eUxEkWiI8 MGijW380JjItyTKe MghrV75tE8SyqVF+PHRy Olj7RSLwdHctSJ3ejFKe VVghZr7jSSH4ImBlCzJz ANqcG4DvPQDmpkjt kkeevOT1UIDaVYGnrR64 Lt9sdKxaHb8ePBYgXSS5 YXPgyXGkB8KxeO3uWrWl JYYkNTViO0SvxRXv EOurC063WJzcPjF5MGIq cyXgS8WpZUCmdItaUqE2 m8T7Of7PiQaykZGgCL9h BaJhKLv1W8UdFat8 ZSBwdNbsOF3fnKHfYUzd Rc6gaRlmyBttSR9fTELl pthfu681VpOmu2ocVZCx zUCxEEawZWD2U94y c9E8UCJhOUTxBCN3oDA0 nE5lgOarmatopFExuRkq ntUbmQbmZFsyQEkwM307 IHRvcDsnPkZJTjo8 E7ClNxj6HHJjeZzzJC9q wTWuYSmkZt4rtZjekNvi TI3uYDDhokwhb395NzVf o5ueWDLndRYcJFts MSS2W04ze1Q4GGLvOELa UAO5uFU5wP5vwAcfkdup bGVmdDsgdmVydGljYWwt BPbjZ930YGPbuQit Qj6NKtd1B9LpEor1PYXr pSfpPB2srEJmGWjfAc3s pUmsnXnrWA3xKVUmtmnw q131KeTlx7vlSJEj cHDmDEwkVPQ5W37uk5Z4 JDDxDXBiEKV3aZQ1xD8y bGlnbjogbGVmdDsgdmVy jQipPZadBDwfL360 IHRvcDsnPlBheWVyOjwv dGQ+ZH22xo62O6JeXret Ybn1ADQfXIK2rYT9fJ5u HILdFQtck3K2yWW8 J2J (more content not included)... [facility] Office/Clinic Noteon 024 Office/Clinic Note [...] He does continue to follow-up with his dough braker. He is also undergoing physical therapy at [...] subcutaneous francisco javier (more content not included)... [facility] Coding Summaryon 12-12-2023 Coding Summary HTMLBase 64 CebghsdfWEp0qIa+PGhl YWQ+MG2OZQZsR80jrSIz xO2aW9YSGLrXUyuqPDYQ XIxPChQsgmNzCG3vtUWc ZXJu IC8+VO1xFSEhHvywaIJh g5Y1pOS6K74izu8xCJfp pJG2KJPjFxHlbtxme7qj bEc3FYupLjqrAiXb FRWrmC85JIJ1vS17Lc42 vBOemGHgg4gczVt5ScBm ATYmIJG5hPuvRNqpe8Aw LREuM65qhBIns7C5 IGNvbGxhcHNlOyBlbXB0 rP7aYPtdnzehe3zdboat Vpi9ir53xITod4M8zXH3 P3QiumZ0SZKesILv XemifZIJoK9usfwyl1yf ysfjEoVvMOWpJLz7QNh1 NNFtsXqdCyRmCT82ZIV1 HGYsmdOgC7TlBUTj uRysIiZ0g6Y6Ln1PG2LX PhwiE0RRFBLIXTmuaHW+ JH22ue30C9KxWtpiBqx8 EPNhNFV5wEQ9cE2f RZRfYNjrh5D9vUQ8E7Ds ryUpbf7yg3bdXFXhCMpg G89zrYIdy5B0GDDivEJ9 YMYnqGjwVlHvwJ03 Oyc+VZOyvGlfg8IvJayn l8lyg4gefHv9ZpvlEKGg fwCsaGclCBA4l8LdJh6e OPYlhRC3wVZ5rU3i MlWgMxN5LJmzU767RcRt aBFsHumdS00hD4PioHB+ UURjOqt3HKAqaIwhDS5m E6ZwMMOwdavtlDJj wIxdLK0jOOMlujouKBFe jA9mIEWbY0s4BcAdIkM5 MKbvB0AaMCPimbvwUq73 bG7iKrSoXrL2NPlp M4AqadS7YXLpeZPeOIxl THH2W69ld4E7LMKuIXTw CDI8fII0zQ8pwLuignyq bGVmdDsgdmVydGlj MWrhJVueJ230OCCfsDhu PkNvZGluZyBEYXRlOiAg MDYvMjUvMjAyNDwvdGQ+ MOVeKGF4rFziIGUf lHJiJVslUi9tcEqhbCkl BT5vLUZurrlyKPYtoZ9m EJWktQAbtUjxSN9mYIYc najus259DsTzSUV8 MYLobQSgJ8RhgX4jIpOw ZPYgQGSiQ9QwkSWrVOir H149JKsdFqQ5QMFzlpTg I6BtILLtkJbeAkQ9 h9V3Fc1Lx4KpojeoO5Ak gLPhZzPwUsmbDQc0Q4Kz PjwvdHI+TF82RZVvJY02 TOb1IXI8lCusHBle AVKaC6KbhM3cWbOdPTSq ZGRkOyc+PHRhYmxlIHdp ZHRoPScxMDAlJyBzdHls HY2yNp8fTOZpZLQz wHotaCQhGeKfg4uvOTVp KApgCX7vmJteU3AmqEP7 TJOtn7m6Uk30C16oH7Co dXA+GRNmkTL0iDJ5 uW5nFzIpVcI9QNbzI577 UwKcsZHqQwyxn8loo4cc bMm7BrS7HCEngzOuzRxa OLG6w1QeCs89X45j IHdpZHRoPSIxNSUiIHZh jEudha0krY5xFg6+PGNv dYH5eXT5aZ5nMmPbUvZ8 JDrpL782FyIjtBLu Qbeyp5qhh7wrpOb3XrKn VDIlmlBycUabZZL5p8Ha Zs03R0XyuIhab8HnNyu3 qj84yRMmw8Q7mSC7 K1DfVSYzazssnCGkmXsh ID7bZDZiobwqDDWzjS8i XZLaD0o4FvKsSzW5KOes I0SofdG4SKEquVMj HBRfoADMfA8rfwiir0hm ghuaXzDuGBHsVWi3KBn0 SSWezEztVzDpOKT9LeG6 KDY5iUIjiV8abMhk niennD1fIai+RNC3vFZk vPPAGZ7tEjxiuBA+PHRk NHH3uPfoRLdrMUIixP3x DDGxE3a3PeCwJfD9 QXnsL4CbpaQ8PXWaoPBz BUMnyRPYyW4uoxxsh9fl vssuKhGaFPHtNWr0WTz9 LWFsaWduOiBsZWZ0 FsI9QQM7hUWbfW6cqFsz rprtrZ4gHuu+QmlydGgg XCX0GOg4E5EtJen9OYLn iPjmIQ8seFBsJWmz Sa3fxBjyzFbiUP7kRYQs lmdyg231QnCzm9kkLNYu rTAuUAsaSUF1E65cs7H4 TQMiQFSeVDY5vHE3 yK5tmMgkxzighQEugDqb dxKdmJzwQAmoGGvcK072 HBVlvGnhGsXbUMn8M1Uj Hea1XMLjrDbgSO4a zBBkSWccPb3gaPbhxJlz AC6kRIXbydkoh435QcXp n6tdUEFzrAZpTRsqLYP8 G28tv9Y1MHVjCBPm QTH7aGP2mV3gpAfgedbp bGVmdDsgdmVydGljYWwt ZXqlB415GODpvCwaAuVa pOi9U0EbUzh8OPTv aYveKY0aeCPpESnfEn3a xSzuyVcvBX2aHALjdbzw n964EjAfe1hdDABpeTCr MFrkFEW4Q95va9A2 OFRjFFQqSKU6lVR7tF9j bGlnbjogbGVmdDsgdmVy wXmhZHwuUCszI401ICRw cDsnPlBhdGllbnQg VDxnOXf6R5RlLdhkpUG+ UC01BYYiCS40rGAnqDLy j6utoUc2XtLcNYAeOZS2 dNcyOOozg2FnJQBn K21xyWKzk5U4JYCvjGmi oDEvPgTdnES4oO5fNGtw sislx6vgvssbNsvky6kv nv63vD18M06cFSog ZHRoPSIzMCUiIHZhbGln cr9wbT9hPz1+PGNvbCB3 sVU8gU6cIAFcGcL7USfg H470DqJlyWYxImva f1kfb2pzbKo2MdI8KSSg rtSabNupLBA0y2JkGs84 U02fSJftNTVgZZHpKLLw XWAfnIeqjl4jkR7k Ii8+SQNsyUG5aTH4qW6b YpYmUsM6CHicX924TdIo sGBtDbexX26hS0SffHT+ KFUyOwq3EPJeeMkq RU7qtYAjMAqkFd0zOYG8 IxAoOaIgHTshB3CtPLLz rglyempxgII0AIEoFPQm bG78Lj6aiNaeXAIc mJOPrI6nazxtz6jggzjb NcGiNQZzAOu5UGv8TGDf gRpoJrSrTSE6PtC8SWX0 oSYkxP9vvJjrohvt nT8hE4TmLDUfwvaqRi23 wC5mJvDtIoN6SMxtOnc+ S0IGCSTXAWWXXUseYCDL UAHJDL19TN65fFOl c6O9lXJ9D7VkRRBsuctu jupijHP1IHBxVZXpcR07 lPWhEBqsRg2tx9U5l971 PTTcELGikP45Uq4z hBlqXPEakXBYtL2michg e5glysgrZwTlTRGlTUi4 YDq8ASWdpOnxPbHbNGO5 DbE2SQP6hJVbaY6u lRbtkgauiF1eGph+MDEv NJGjGFa8CitucCE+PHRk LWV2lHrjVIuwSVXlsJ8m OMYoD9l1ZxHrSdF1 UTmoW0QjJZCogijvJq88 aG0xSoSyIsI3TLjnJ5Ru lxJ0NZNukADpVRioMQI6 J00uo4W1OFJcEREa CTZ2jAZ1nO4blRsttmjj bGVmdDsgdmVydGljYWwt TPifO123HSMeaAwlPxcm XWcqTFVbIS17YE33 lTUjv0K8iDD1O1BiLGDl sfmrlevdpAP4LCHnZGMz zZ27cXWtDUzhHi2gf9D4 k186RMNwFJLspL94 Jk0zqXhnWYZmdGVWtP0o wlgto5kmxdkdDfGbDOZq QSn9SAw5PQJckSrhUhTq LIQ8BjY3MIB2eHKs lU6kdYhzmjbqeM9vUup+ TUFMRTwvdGQ+PHRkIHN0 dJnoXRsyIZXdjD7nNHWv J1j7DeXcThG5KVii W7NsCMJagnbiHy66oH0o DlVfKzX2ZYuaM8YbvkA7 NVQulHNaFPllCDF2V56o d8O9XDGmOTHiVWB6 jJL6wL7hiDwftevmuHUu dDsgdmVydGljYWwtYWxp M545BSOjdQwxOtXbG1Xe cmluZyBPdXRwYXRp NI45GS80AZ45G2IeBhoj dGFibGU+PHRhYmxlIHdp ZHRoPScxMDAlJyBzdHls OS0nMp6uJYOmIEAa iKszpJMsQhHdp2ofSCYn JCnrMY1imLdvV5MoxRT6 SXAww8s5Cx42T90mK0Hq dXA+GIYuvGD4uXM3 vC3eLiHzHmD3KTaqG309 XfUzbHCkPdkdr7mvl6ut aWq9OlGgDZIueuJbzGng NLH3c0UaFa73C64t IHdpZHRoPSIyMCUiIHZh mGqwgl0bkY4wAq6+PGNv mSC6lWQ6lS0uRdVtHkZ0 HIwpR750HiXzbBDz NcdyY61oQ4CcwMV+PHRy Uon2HKHifUppPZ6qzLWv OZggZz4nPVN5DsIwBuDf APlcR9ThPYGrtgkm ypqwzXQ3YJKuIQMcoN21 Hw7izXqvFm3pIQHmSSO8 ZCFlvATxT1ZivM4qQoIe YQBiSHXtI1MsmKHx TIsgE366NFxzVlE7DTMk vbGnL9DpPFZjaOlsUfU1 h5I4Om6EbZdnkNRvXW7u KnXrSTp4D3UkOnl9 EWAjmRbhFA2bqBNyMUbr Cj6tpMtvrMrsNM2kJMRe entoy081AtWdf9bgMZJv pRHvBNeyMQD8F93p z1A3EVClGPFcVLS4iKE2 xP6ihJxmyofxsUCgtDvh wbNawTboGVqzALihK501 IHRvcDsnPkZJTjo8 M9UaLal6DDHjfKhgPZ3k hFLlMUwdTi6fnMapvPez QZ3tNLOzvmdsb225YuGc u7zxMEIolERnUIcd TNN0B00fd0O4DADlRJVl WEM5iJJ1uK3ydGgjcjsu bGVmdDsgdmVydGljYWwt TFxkC577VBSqdPlu Mf6GEep0Q4EaEpu8EVNl xZrrWL4pkTSsHBbaJe6d wIylyZkiWT8zCAYkuifd j082RyTee1fyQYTh hBHyYRhvJQX5O33ba6N6 JOGaIMHwXFS0sOK2qE4j bGlnbjogbGVmdDsgdmVy wAavTAfpWEpjQ942 IHRvcDsnPlBheWVyOjwv dGQ+ZP56mf42B9VrDsgc Dyf4EBCuBHM7lXI5fN8r XHXaEBwek6S5mNH7 J2J (more content not included)... [facility] Provider Orderson 11-30-2023 Provider Orders [id number] [facility] [id number] [facility] Outside Records [id number] [facility] Follow-up visit [id number] Richard Boykin 1940 Date Provider Department Center 10/06/2023 NaidaSWEETIE TOMLINSON [facility] Family History Problem Relation Age of Onset Stroke Mother Valvular heart disease Father Family Status - Relation Status Age at Mother Father Level of Service:37779 [place] OFFICE/OUTPATIENT ESTABLISHED MOD MDM 30 MIN Reason for Visit and Comments: Follow-up [[id number]] - 6 month follow up had echo completed Normal [facility] Coding Summaryon 09-28-2023 Coding Summary HTMLBase 64 WtqiyrcrBKz4hLq+PGhl YWQ+TK4RJLWjD95atQWk oK1qD8CIGOvIQyxjSNNI ATwDBiTzcvHtYM4umJRl ZXJu IC8+VF3xFRKrIkwobLRf v8D9mPX8Y85tob8tKDkb pRN8IAMqOlCleztpl6vk oVh5GNcfIrndPwFj BUPoiT34SRN3zP67Fr44 kUMasCCig3ghsWl8NpHk KVYiYOE0aFpiVMbwv1Go CQFjI81hfJXjw5N9 IGNvbGxhcHNlOyBlbXB0 yT5uRJcvptmxh4xjnncb Reb3du48nGPyd5N9iSK5 O9CjveG8FUSgkFNx ChbsuKBDbG9lxdzqu5jv vtbiPmVyQPKzMCa3QVa1 XCWiuVorDvNpFX71RXV4 BVMzekQuY4LcPPWb uXnkCcL9k6Q3Tf3EU9XB HgssQ8NZCSLWKLpbyUG+ SO74xm68A0EuBzblEer3 SKSwMIY3qFG1jH9c ETQhKUstu9E4qDT1U7Ms mtQfae0ks9vuFZBzLFbc Z98ewIVbq5Z0CRVfuPH2 WRDlyWgwHwAbgO42 Oyc+GSWmgLkrm5RjFrpa q2eau1clpXw5NphlLFEj puQwgUqlHUC6h9TvKv6x DZLzbMN9uYQ4mW6o ToMbPlZ0UQajV781IsVl cYOtNzewN02qK1AeeJR+ ZPYkUqm6RKDgnJbmCL2d G9AjWCRlbzniiZUj cHbsUK2pZMTeakjxBUQm rN3qADAkM8r8RxVuJxR2 ZVkmY5SqGQThtgfwTi09 lA2mOxOwLgJ0IAwq A7BaolT3VEOjbKOqCGnh UYI8S42uw4J4MIHiSZYn DGF6hVE3pT7bmWlkzmff bGVmdDsgdmVydGlj KEwdYDspA445DNUycYcc PkNvZGluZyBEYXRlOiAg MDQvMTEvMjAyNDwvdGQ+ MXUsLEU1sEgzWGMo gTCpPQufWp6plBzwmRno OH8dFNFvivijETUkjH8h BNCcsNErcLznHI7xQFUf uvtmx847VwRaTRH6 DLOgkXCrA4NheY4cMuSv DVKgBPXkR6VoqELvJIug R610QYpjCnI9WMYshfXs B1FmXJJxsEjkUrI9 x2E5Wv4Kg8HdxncaM2Rt sELwRnGzZzdaEJs2Z2Ov PjwvdHI+UB17EEGcNR44 RZi2VBT3gEclEQkj WBHcT1RduG9kPqYdUNSx ZGRkOyc+PHRhYmxlIHdp ZHRoPScxMDAlJyBzdHls RC7gDx8oEBSsUHKw qBnapHCoOvJdj0xvWOIg FRguIC6vrEonU8TjpFQ0 EXVcj9d2Le99U96fR6Wx dXA+RVRphAA2mNN4 zW1mBmRtGbH5PTmvS852 VpTapBZgOfnoz8qrg5lr iUd9XtT5TZKzloXsgWyl SLD4y7IbEs64Q08v IHdpZHRoPSIxNSUiIHZh tAentc2vvL0rRa9+PGNv iKI1cNF6zT8iMtTqNkS7 RHhwD997PvXpiEJf Gvjws9kie9lmyDr9JuKe BHXktcYtpFcmAYH8g7Kc Ex39Z5IrwKouy3QjPpm5 qy51lNXei3W9kDH5 X4LsPNGnqdmxuBSlcOsh OO1mIRRrfqxdALFbeQ3a YFMlZ0k3UwMbOhP9PWan R1UwmbH3HGCetLCu WSHggKNJrT9xzokbp3ca vogtLtMgHKWxCBk7EPb6 RWCowUkuMbRaWHW4VrD8 RJF7uEZjaX5fgTii jvecyM3nGme+GUB3kTNd cWRFIE2wLdbxgKR+PHRk IPC1vGsnWYffBLOokM1h TLXtA9s6YmWlBjG2 BZwxL4DzoaA6IOJoqQPi KOHdzCWNvE7monvoo6ln igquFwWkELQxCTm7MXc2 LWFsaWduOiBsZWZ0 CkP3EIO3jEEybV2giJeq mkdlkR9zBqo+QmlydGgg CAU3CCv4P6ImRkq7RHCs kQjtDW8ugHYuKYxb Wr7deSwejHbhMG7pZZFg qyors083LhZvz2kyYCBi nHSvMDhnRLT3E60jn9D9 SWChJFGhJNI5tKU2 xC1epAdywidciAWiyZhj geSflGmbFJcjSBeiA550 HVSptVmbMlBbFBw3G9Am Ant2HAWmyTphFD9o yVExYIliDr1ixZtkjPes SF4qAEYvigihs008HhIt h6cjNZUbbFRzYVipRGX0 H54ul1H7AHApMNFz SUV0aZZ0qR3fzBkdelxv bGVmdDsgdmVydGljYWwt PRsmG171DPYxzCghMhRp tYi4W4WuZnw8UAIe tMlsHO6bxINlSOhjAn6h hErqpSoiHC5uMHGumqql z012LoNgs7oiYNGmvQDf ZTddCYJ6C94hr0L0 PJKgNBUeORC7dVQ0mZ7f bGlnbjogbGVmdDsgdmVy kRbwQKhhQYmdP753UEQa cDsnPlBhdGllbnQg LWkcPVi7W4AjQjrdxZD+ BE72HEBhAY06pHClmUZe a0crzCl4FaPeTQTaSPB7 qTrfWKtzi9WbYODg N47wmUBzc0P8IIMwmQxw eWIkRlEjgTP8eZ2bUGgt paotz9wpaknxTejdy6kb ab40yP43N89lHHqo ZHRoPSIzMCUiIHZhbGln po5woR4bNa7+PGNvbCB3 vUP6dG0dGVDbHcB8ZVpr F800WrKazXNjOwwc f9ujg4ubbUh2IeC5PZBr soZblGgxWZK1f8UvEs08 R09yGNscVUStSPAoAYZt HJFszVpyxq4nsG5t Ii8+GDJigBF4bDV3kJ2y TfKbEaA4OHemS843YtQy vZCiQgxaM23tU4FsaZU+ QEWgWle1YYOmfBnr RU1nvZAsPOnqIp6oRXR1 LgKwDqQkPPwcL0VcHCBl vhhcptmenOO7YMZiKNOu gU93Nk5rvOnqZHXa gVGHkE5pqzmei0jneovc ElCbRADgFSw1NPd3IRCw gZhsCrNdRGJ0ZiD0YTI8 jVWhuD9ilPzdyvnu fJ9gN6YlEFHxisqlUu58 iH2qHsZqHlS6SXuuNsd+ W8SZLAMNGBTRHKqdYAQB OFZSDX78GZ23fNNd b6R9nNR5D4WeQHJtvtvh jojgvNG1JNSeJOMfqF58 rPAsWJewXq9sa9O3p267 IVHiBVPkcI22Qk0g eQrpCUAhyVMVzZ3ywwft w9rnysaqVfUtIITuOBh8 TVx7RYIqaQrqDtEmPFL8 GcK6FIE1hVQsoY3t wRymzrmfcV0jEbv+MDEv MRHxMRx9SbesvVO+PHRk KGI6qAucVLquCRUwqX9y ZQDpU4b0SxOtLvX6 SDtwL8RkQIQlqbseFx21 rX6dYcObHwP0TLnzX6Ti ttQ0BTFloKYuSHrrRFF1 U29ln6B9EOXgUISj TJU2yQU7oB4pbBwwisqv bGVmdDsgdmVydGljYWwt KIlsS892CDNpkEiuUzbt SMibAWTsDR13QT87 oGSpj6K9lAG3K9CcNIJs hwurisgwvFS8SFOtKYXh mY42aSWzWQjoSi8uz0L5 b001YKRyCSKuyJ11 Ff0ihAwjGXWqlUYCkK5v idgsw9rnwksyUzBjYSCj VNi3KDf7VLCivVwlXdBl VSA2LmH3QKK2yUXh oX8ewSdwesqpdD0zNqp+ TUFMRTwvdGQ+PHRkIHN0 gNzsARkxUKZzhD5pNOHl E2n7LdAbHaP2WDnu G5HsEAUaeytqGl14iB1s PdAsHdU4DRhyW6ValdS7 BMNwcYVxPBrwOTZ9R65k n3U7TUPnEUQeXIQ5 uNK9zK9gcAihorsrnANt dDsgdmVydGljYWwtYWxp M357XFBgsYvrBs0OOJ83 DT62P2RfGubuaVFv bGU+PHRhYmxlIHdpZHRo UYeiZIErClZqtMqxLI1c Uh3mWCReODIlxJcjkFRj ReQok8xsELSvJWmv RJ7txPxyG7IwdUB5BCTc e0s5Sz09M13nA1RdhAF+ BLQwlHF7mRI5bE0wUaNf IwB1MGrmT030TyUw qTYlMkssi0duv4ixnOl9 IjMwJSIgdmFsaWduPSJ0 w5IkAt92Q46mPUtfWFHy PSIyMCUiIHZhbGln gh5jcJ3rAl5+PGNvbCB3 lMM3mH1xHhEaEpP7HWgc O147InUinEJcMxvtO77r P0ExeAD+PHRyPjx0 OTMtsDlgZZ7fqJBpSCcx Oh7bFKU6EfGoQhOmKYlx N5UpVOWoflimvhaeeEG0 MBUdQHKocH76Ag5v kMdpLx2nWMVjMYF1AQMk dZGvA2ScsS0kRbScLTDc VXKsP0VsdUUdTFtmT650 SJzrXdB6ZTXshmWk H2PnJSBlaNdnYvP5q3Q8 Vs5JkGokuCTsDE5mUfEo VAs5F3RiHdn5EPShgSxh UK4niEMnAHlfOf0w jCcpkBsoCG2rIQNahmea f668JqBen4yyKKOuhWIj RYpnRBG7I42cj1C8LNAk QTWjAYL6hOV2iL1a bGlnbjogbGVmdDsgdmVy vUznTJnoFOmhJ538GKQl lMhgWsSUNku8V3KgJim5 OCSypLmyIV9atSWl JPmyCt4gfSrqxAhjKE9i EXIlmxzqr746JdJez4og HOAvkPDuJTvlUTT8Q77l k5V5MEZmLRNrVJG7 qEC3qS5noXbzgpxjuPYp dDsgdmVydGljYWwtYWxp J498YYSdwEsyXx7QIdg6 N1EpMap5GEMioOkv EM4lrDUqLJulBx5cjDle iVaoDR1xYEMxalcpt380 MuNso8zyBXHhjPJgGYmu SPU3A98pm9Z5PWIs JKXzUIS0oOS3nY1jzUke bjogbGVmdDsgdmVydGlj JKiwSFlbQ809BVMlxTsk PlBheWVyOjwvdGQ+ IF85wp71L5KiExplEnk6 MQObYVA4iVU6dB2aXQUl TVlzk8D9vZH3P3ErtaDw mb4om6bhKZRcHFqs Y29 (more content not included)... Normal [facility] Outside Recordson 09-27-2023 Outside Records [id number] #[email or web address] [facility] BNPon 03-26-2022 Natriuretic peptide B (Bld) [Mass/Vol] 629.0 pg/mL Normal <=1,800.0 [facility] Comment on above: Performed By: #### B MP, TSH, BNP, LIPID #### [facility] [address] [address] [address] Aaron Ling LIPID PROFILEon 03-26-2022 CHOL-HDL RATIO NORM SEE BELOW Normal [facility] Comment on above: Result Comment: 3.3 - 4.4 LOW RISK 4.4 - 7.1 AVERAGE RISK 7.1 - 11.0 MODERATE RISK >11.0 HIGH RISK Performed By: #### B MP, TSH, BNP, LIPID #### [facility] [address] [address] [address] Aaron Ling Cholesterol [Mass/Vol] 212 mg/dL Critically high <=200 [facility] Comment on above: Performed By: #### B MP, TSH, BNP, LIPID #### [facility] [address] [address] [address] Aaron Ling Cholesterol in HDL [Mass/Vol] 86 mg/dL Critically high 40-60 [facility] Comment on above: Performed By: #### B MP, TSH, BNP, LIPID #### [facility] [address] [address] [address] Aaron Ling Cholesterol in LDL [Mass/Vol] 98.4 mg/dL Normal [facility] Comment on above: Performed By: #### B MP, TSH, BNP, LIPID #### [facility] [address] [address] [address] Aaron Ling Cholesterol.total/Chol esterol in HDL [Mass ratio] 2.5 {ratio} Normal [facility] Comment on above: Performed By: #### B MP, TSH, BNP, LIPID #### [facility] [address] [address] [address] Aaron Ling HDL NORMAL > or = 60 mg/dl - LOW CARDIOVASCULAR RISK <40 mg/dl - HIGH CARDIOVASCULAR RISK Normal [facility] Comment on above: Performed By: #### B MP, TSH, BNP, LIPID #### [facility] [address] [address] [address] Aaron Ling LDL CALC NORMAL SEE BELOW Normal [facility] Comment on above: Result Comment: <100 mg/dl OPTIMAL 100 - 129 mg/dl NEAR OR ABOVE OPTIMAL 130 - 159 mg/dl BORDERLINE HIGH 160 - 189 mg/dl HIGH >190 mg/dl VERY HIGH Performed By: #### B MP, TSH, BNP, LIPID #### [facility] [address] [address] [address] Aaron Ling Triglyceride [Mass/Vol] 138 mg/dL Normal <=150 [facility] Comment on above: Performed By: #### B MP, TSH, BNP, LIPID #### [facility] [address] [place] [address] Dr. Aaron Ling VLDL CALC 27.6 mg/dL Normal [facility] Comment on above: Performed By: #### B MP, TSH, BNP, LIPID #### [facility] [address] [address] [address] Aaron Ling PROF CHEM 8 (BAS METB)on Anion gap [Moles/Vol] 7.4 mmol/L Normal [facility] Comment on above: Performed By: #### B MP, TSH, BNP, LIPID #### [facility] [address] [address] [address] Aaron Ling Calcium [Mass/Vol] 9.6 mg/dL Normal 8.5-10.1 [facility] Comment on above: Performed By: #### B MP, TSH, BNP, LIPID #### [facility] [address] [place] [address] Dr. Aaron Ling Chloride [Moles/Vol] 94 mmol/L Critically low 98-107 [facility] Comment on above: Performed By: #### B MP, TSH, BNP, LIPID #### [facility] [address] [place] [address] Dr. Aaron Ling CO2 [Moles/Vol] 36.2 mmol/L Critically high 21.0-32.0 [facility] Comment on above: Performed By: #### B MP, TSH, BNP, LIPID #### [facility] [address] [place] [address] Dr. Aaron Ling Creatinine [Mass/Vol] 2.27 mg/dL Critically high 0.70-1.30 [facility] Comment on above: Performed By: #### B MP, TSH, BNP, LIPID #### [facility] [address] [place] [address] Dr. Aaron Ling EGFR-AF THAI 34 mL/min/1.73m2 Critically low >=60 [facility] Comment on above: Performed By: #### B MP, TSH, BNP, LIPID #### [facility] [address] [place] [address] Dr. Aaron Ling EGFR-NON AF THAI 28 mL/min/1.73m2 Critically low >=60 [facility] Comment on above: Performed By: #### B MP, TSH, BNP, LIPID #### [facility] [address] [place] [address] Dr. Aaron Ling Glucose [Mass/Vol] 214 mg/dL Critically high 74-106 [facility] Comment on above: Performed By: #### B MP, TSH, BNP, LIPID #### [facility] [address] [place] [address] Dr. Aaron Ling Potassium [Moles/Vol] 3.6 mmol/L Normal 3.5-5.1 [facility] Comment on above: Performed By: #### B MP, TSH, BNP, LIPID #### [facility] [address] [address] [address] Aaron Ling Sodium [Moles/Vol] 134 mmol/L Critically low 136-145 [facility] Comment on above: Performed By: #### B MP, TSH, BNP, LIPID #### [facility] [address] [place] [address] Dr. Aaron Ling Urea nitrogen [Mass/Vol] 48.0 mg/dL Critically high 7.0-18.0 [facility] Comment on above: Performed By: #### B MP, TSH, BNP, LIPID #### [facility] [address] [place] [address] Dr. Aaron Ling Urea nitrogen/Creatinine [Mass ratio] 21.1 mg/mg Normal [facility] Comment on above: Performed By: #### B MP, TSH, BNP, LIPID #### [facility] [address] [place] [address] Dr. Aaron Ling TSHon 03-26-2022 TSH 2.606 uIU/mL Normal 0.358-3.740 [facility] Comment on above: Performed By: #### B MP, TSH, BNP, LIPID #### [facility] [address] [place] [address] Dr. Aaron Ling B-Type Natriuretic Peptideon 01-19-2022 Natriuretic peptide B (Bld) [Mass/Vol] 749.0 pg/mL High 5-100 [facility] Comment on above: Order Comment: 1- [phone] Result Comment: PERF ORMED BY: [place] [address] PATHOLOGIST [employer]PUTY [employer]OR IN [employer] SERVANDO AKERS M.D. Performed By: #### B MP, LIPID, TSH3, BNP #### [address] Basic Metabolic Panelon 08-0 Calcium [Mass/Vol] 8.5 mg/dL Normal 8.2-10.2 [facility] Comment on above: Order Comment: Performed By: #### B MP, LIPID, TSH3, BNP #### [facility] [address] Chloride [Moles/Vol] 103 mmol/L Normal 95-114 [facility] Comment on above: Order Comment: Performed By: #### B MP, LIPID, TSH3, BNP #### [facility] [address] [place] [address] [facility] CO2 [Moles/Vol] 31.5 mmol/L High 22.0-30.0 [facility] Comment on above: Order Comment: Performed By: #### B MP, LIPID, TSH3, BNP #### [facility] [address] [id number] [facility] Creatinine [Mass/Vol] 2.03 mg/dL High 0.64-1.27 [facility] Comment on above: Order Comment: Performed By: #### B MP, LIPID, TSH3, BNP #### [facility] [address] [id number] [place] Estimated GFR ( Ava 38 [facility] Comment on above: Order Comment: Result Comment: GFR estimated reference range: According to KDOQI guidelines, <60 ml/min/1.73m2 is sufficient to diagnose a patient with chronic kidney disease. Performed By: #### B MP, LIPID, TSH3, BNP #### [facility] [address] [place] [address] [place] Estimated GFR (Non- Am 32 [facility] Comment on above: Order Comment: Performed By: #### B MP, LIPID, TSH3, BNP #### [facility] [address] [id number] [place] Glucose [Mass/Vol] 99 mg/dL Normal 70-100 [facility] Comment on above: Order Comment: [phone] Result Comment: [place] Glucose Reference Range is dependent on time and content of last meal. Glucose of more than 200 mg/dL in a nonstressed, ambulatory subject supports the diagnosis of Diabetes Mellitus. ADA recommended reference range Performed By: #### B MP, LIPID, TSH3, BNP #### [facility] [address] Potassium [Moles/Vol] 4.9 mmol/L Normal 3.5-5.1 [facility] Comment on above: Order Comment: [phone] Performed By: #### B MP, LIPID, TSH3, BNP #### [facility] [address] Sodium [Moles/Vol] 142 mmol/L Normal 136-146 [facility] Comment on above: Order Comment: [phone] Performed By: #### B MP, LIPID, TSH3, BNP #### [facility] [address] [place] [address] [place] Urea nitrogen [Mass/Vol] 50 mg/dL High 9-23 [facility] Comment on above: Order Comment: 82 Performed By: #### B MP, LIPID, TSH3, BNP #### [facility] [address] [id number] [facility] Cholesterol [Mass/volume] in Serum or PlasmaOrdered By: Sweetie Tomlinson on 01-19-2022 Cholesterol [Mass/Vol] 259 mg/dL 140-200 [facility] Comment on above: Chol less than 200 m g/dl low risk Chol 201-239 mg/dl borderline risk Chol 240 mg/dl and greater high risk Cholesterol in LDL Calc [Mas s/Vol]Ordered By: Sweetie Tomlinson on 01-19-2022 Cholesterol in LDL [Mass/Vol] 142 mg/dL 0-100 [facility] Comment on above: LDL ATP III CLASSIFI CATION LDL less than 100 mg/dL Optimal LDL 100-129 mg/dL Near or above optimal LDL 130-159 mg/dL Borderline high LDL 160-189 mg/dL High LDL greater than 189 mg/dL Very high Cholesterol in VLDL Calc [Ma ss/Vol]Ordered By: Sweetie Tomlinson on 01-19-2022 Cholesterol in VLDL [Mass/Vol] 12 mg/dL [facility] Creatinine and Glomerular fi ltration rate.predicted panel (S/P/Bld)Ordered By: Sweetie Tomlinson on 01-19-2022 Creatinine [Mass/Vol] 2.03 mg/dL 0.64-1.27 [facility] Estimated glomerular filtrat ion rate (GFR) non- AmericanOrdered By: Sweetie Tomlinson on 01-19-2022 GFR/1.73 sq M.predicted among non-blacks MDRD (S/P/Bld) [Vol rate/Area] 32 mL/Min [facility] - Chemistry and C hemistry - challengeOrdered By: Sweetie Tomlinson on 01-19-2022 Natriuretic peptide B (Bld) [Mass/Vol] 749.0 pg/mL 5-100 [facility] Lipid Panelon 01-19-2022 Cholesterol [Mass/Vol] 259 mg/dL High 140-200 [facility] Comment on above: Order Comment: [phone] Result Comment: Chol less than 200 mg/dl low risk Chol 201-239 mg/dl borderline risk Chol 240 mg/dl and greater high risk Performed By: #### B MP, LIPID, TSH3, BNP #### [facility] [address] [id number] [place] Cholesterol in HDL [Mass/Vol] 105 mg/dL High 29-71 [facility] Comment on above: Order Comment: [phone] Result Comment: HDL CHOL ATP-III CLASSIFICATION Cardiovascular Risk HDL > or equal to 60 mg/dL LOW HDL < 40 mg/dL HIGH Performed By: #### B MP, LIPID, TSH3, BNP #### [facility] [address] [id number] [facility] Cholesterol.total/Chol esterol in HDL [Mass ratio] 2.5 {ratio} Normal <5.0 [facility] Comment on above: Order Comment: [phone] Performed By: #### B MP, LIPID, TSH3, BNP #### [facility] [address] LDL Cholesterol,Calculated 142 mg/dL High 0-100 [facility] Comment on above: Order Comment: - [phone] Result Comment: LDL ATP III CLASSIFICATION LDL less than 100 mg/dL Optimal LDL 100-129 mg/dL Near or above optimal LDL 130-159 mg/dL Borderline high LDL 160-189 mg/dL High LDL greater than 189 mg/dL Very high Performed By: #### B MP, LIPID, TSH3, BNP #### [facility] [address] Triglyceride w/Reflex 60 mg/dL Normal 35-149 [facility] Comment on above: Order Comment: [phone] Result Comment: TRIG ATP III CLASSIFICATION TRIG less than 150 mg/dL Normal TRIG 150-199 mg/dL Borderline high TRIG 200-500 mg/dL High TRIG greater than 500 mg/dL Very high Standard traceable to the Center for Disease Conrtrol and Prevention (CDC) test method. Performed By: #### B MP, LIPID, TSH3, BNP #### [facility] [address] VLDL CHOLESTEROL 12 mg/dL Normal [facility] Comment on above: Order Comment: [phone] Performed By: #### B MP, LIPID, TSH3, BNP #### [facility] [address] [place] [address] No Panel InformationOrdered By: Sweetie Tomlinson on 01-19-2022 Estimated GFR () 38 mL/Min [facility] Comment on above: GFR estimated refere nce range: According to KDOQI guidelines, <60 ml/min/1.73m2 is sufficient to diagnose a patient with chronic kidney disease. Pharmacy Creatinine Clearance (Chem N/A [facility] Serum or plasma calcium shelbi urement (mass/volume)Ordered By: Sweetie Tomlinson on 01-19-2022 Calcium [Mass/Vol] 8.5 mg/dL 8.2-10.2 [facility] Serum or plasma chloride alex surement (moles/volume)Ordered By: Sweetie Tomlinson on 01-19-2022 Chloride [Moles/Vol] 103 mmol/L 95-114 [facility] Serum or plasma glucose shelbi urement (mass/volume)Ordered By: Sweetie Tomlinson on 01-19-2022 Glucose [Mass/Vol] 99 mg/dL 70-100 [facility] Comment on above: ADA recommended refe rence range Random Glucose Reference Range is dependent on time and content of last meal. Glucose of more than 200 mg/dL in a nonstressed, ambulatory subject supports the diagnosis of Diabetes Mellitus. Serum or plasma high density lipoprotein (HDL) cholesterol measurementOrdered By: Sweetie Tomlinson on 01-19-2022 Cholesterol in HDL [Mass/Vol] 105 mg/dL 29-71 [facility] Comment on above: HDL CHOL ATP-III CLA SSIFICATION Cardiovascular Risk HDL > or equal to 60 mg/dL LOW HDL < 40 mg/dL HIGH Serum or plasma potassium me asurement (moles/volume)Ordered By: Sweetie Tomlinson on 01-19-2022 Potassium [Moles/Vol] 4.9 mmol/L 3.5-5.1 [facility] Serum or plasma sodium measu rement (moles/volume)Ordered By: Sweetie Tomlinson on 01-19-2022 Sodium [Moles/Vol] 142 mmol/L 136-146 [facility] Serum or plasma total carbon dioxide measurement (moles/volume)Ordered By: Sweetie Tomlinson on 01-19-2022 CO2 [Moles/Vol] 31.5 mmol/L 22.0-30.0 [facility] Serum or plasma total choles terol/high density lipoprotein (HDL) cholesterol mass ratOrdered By: Sweetie Tomlinson on 01-19-2022 Cholesterol.total/Chol esterol in HDL [Mass ratio] 2.5 {ratio} <5.0 [facility] Serum or plasma urea nitroge n measurement (mass/volume)Ordered By: Sweetie Tomlinson on 01-19-2022 Urea nitrogen [Mass/Vol] 50 mg/dL 9- [facility] TSH DL <= 0.005 mIU/L QnOrde red By: Sweetie Tomlinson on 01-19-2022 TSH Qn 11.52 m[IU]/L 0.45-5.33 [facility] Thyroid Stimulating Hormoneo n 01-19-2022 TSH Qn 11.52 m[IU]/L High 0.45-5.33 [facility] Comment on above: Order Comment: 1- [phone] Result Comment: PERF ORMED BY: [facility] [address] [place] [address] PATHOLOGIST DEPUTY EDITOR IN [employer]IEF SERVANDO AKERS M.D. Performed By: #### B MP, LIPID, TSH3, BNP #### [facility] [address] Triglyceride [Mass/volume] i n Serum or PlasmaOrdered By: Sweetie Tomlinson on 01-19-2022 Triglyceride [Mass/Vol] 60 mg/dL 35-149 [facility] Comment on above: TRIG ATP III CLASSIF ICATION TRIG less than 150 mg/dL Normal TRIG 150-199 mg/dL Borderline high TRIG 200-500 mg/dL High TRIG greater than 500 mg/dL Very high Standard traceable to the Center for Disease Conrtrol and Prevention (CDC) test method. BNPon 12-21-2021 Natriuretic peptide B (Bld) [Mass/Vol] 2048.0 pg/mL Critically high <=1,800.0 [facility] Comment on above: Performed By: #### B MP, BNP #### [facility] [address] [address] [address] Aaron Ling PROF CHEM 8 (BAS METB)on Anion gap [Moles/Vol] 11.1 mmol/L Normal [facility] Comment on above: Performed By: #### B MP, BNP #### [facility] [address] [address] [address] Aaron Ling Calcium [Mass/Vol] 8.7 mg/dL Normal 8.5-10.1 [facility] Comment on above: Performed By: #### B MP, BNP #### [facility] [address] [address] [address] Aaron Ling Chloride [Moles/Vol] 106 mmol/L Normal 98-107 [facility] Comment on above: Performed By: #### B MP, BNP #### [facility] [address] [address] [address] Aaron Ling CO2 [Moles/Vol] 30.9 mmol/L Normal 21.0-32.0 [facility] Comment on above: Performed By: #### B MP, BNP #### [facility] [address] [place] [address] Dr. Aaron Ling Creatinine [Mass/Vol] 2.07 mg/dL Critically high 0.70-1.30 [facility] Comment on above: Performed By: #### B MP, BNP #### [facility] [address] [place] [address] Dr. Aaron Ling EGFR-AF THAI 38 mL/min/1.73m2 Critically low >=60 [facility] Comment on above: Performed By: #### B MP, BNP #### [facility] [address] [place] [address] Dr. Aaron Ling EGFR-NON AF THAI 31 mL/min/1.73m2 Critically low >=60 [facility] Comment on above: Performed By: #### B MP, BNP #### [facility] [address] [place] [address] Dr. Aaron Ling Glucose [Mass/Vol] 138 mg/dL Critically high 74-106 [facility] Comment on above: Performed By: #### B MP, BNP #### [facility] [address] [place] [address] Dr. Aaron Ling Potassium [Moles/Vol] 5.0 mmol/L Normal 3.5-5.1 [facility] Comment on above: Performed By: #### B MP, BNP #### [facility] [address] [place] [address] Dr. Aaron Ling Sodium [Moles/Vol] 143 mmol/L Normal 136-145 [facility] Comment on above: Performed By: #### B MP, BNP #### [facility] [address] [place] [address] Dr. Aaron Ling Urea nitrogen [Mass/Vol] 43.0 mg/dL Critically high 7.0-18.0 [facility] Comment on above: Performed By: #### B MP, BNP #### [facility] [address] [place], [place] [address] Dr. Aaron Ling Urea nitrogen/Creatinine [Mass ratio] 20.8 mg/mg Normal [facility] Comment on above: Performed By: #### B MP, BNP #### [facility] [id number] Aaron Ling XR shoulder RT min 2V*on XR shoulder RT min 2V* [facility] [place] [address] [place] [address] XRay Report Signed Patient: Richard Boykin MR#: [id number] : 1940 Acct:[id number] Age/Sex: 81 / M ADM Date: 12/02/21 Loc: [facility] Room: Type: [facility] Attending Dr: Teofilo Person MD [...] Rosado Jr., M.D.12/02/2021 1:52 PM Dictation Location: [address] [address] Transcribed By: [facility] 12/02/21 1352 Dictated By: Cyrus Rosado Jr, MD 12/02/21 1351 Signed By: 12/02/21 1352 [facility] BASIC METABOLIC PANEL 05- Calcium [Mass/Vol] 8.7 mg/dL Normal 8.6-10.3 [facility] Comment on above: Order Comment: No: D o not add to previous draw Performed By: #### 5 0608, 85334 #### [facility] [address] [place] [address], [place] Chloride [Moles/Vol] 98 mmol/L Normal 98-107 [facility] Comment on above: Order Comment: No: D o not add to previous draw Performed By: #### 5 0608, 70604 #### [facility] [address] [place] [address], [place] CO2 [Moles/Vol] 29 mmol/L Normal 21-31 [facility] Comment on above: Order Comment: No: D o not add to previous draw Performed By: #### 5 0608, 47958 #### [facility] [address] [place] [address], [place] Creatinine [Mass/Vol] 1.00 mg/dL Normal 0.70-1.30 [facility] Comment on above: Order Comment: No: D o not add to previous draw Performed By: #### 5 0608, 33944 #### [facility] [address] [place] [address], [place] GFR/1.73 sq M.predicted among blacks MDRD (S/P/Bld) [Vol rate/Area] mL/min/{1.73_m2} Normal >60 [facility] Comment on above: Order Comment: No: D o not add to previous draw Result Comment: Calc ulation may not be valid for patients over 70 years Performed By: #### 5 0608, 96518 #### [facility] [address] [place] [address], [place] GFR/1.73 sq M.predicted among non-blacks MDRD (S/P/Bld) [Vol rate/Area] mL/min/{1.73_m2} Normal >60 [facility] Comment on above: Order Comment: No: D o not add to previous draw Result Comment: Calc ulation may not be valid for patients over 70 years Performed By: #### 5 06, 14628 #### [facility] [address] [place] [address], [place] Glucose [Mass/Vol] 288 mg/dL High 70-100 [facility] Comment on above: Order Comment: No: D o not add to previous draw Performed By: #### 5 607, 81473 #### [facility] [address] [place] [address], [place] Potassium [Moles/Vol] 4.7 mmol/L Normal 3.5-5.1 [facility] Comment on above: Order Comment: No: D o not add to previous draw Performed By: #### 5 607, 69686 #### [facility] [address] [place] [address], [place] Sodium [Moles/Vol] 135 mmol/L Low 136-145 [facility] Comment on above: Order Comment: No: D o not add to previous draw Performed By: #### 5 607, 10119 #### [facility] [address] [place] [address], [place] Urea nitrogen [Mass/Vol] 28 mg/dL High 7-25 [facility] Comment on above: Order Comment: No: D o not add to previous draw Performed By: #### 5 607, 23997 #### [facility] [address] [place] [address], [place] CBC COMPLETE BLOOD COUNTon 0 - Erythrocyte distribution width (RBC) [Ratio] 14.3 % Normal 11.5-15.0 [facility] Comment on above: Order Comment: No: D o not add to previous draw Performed By: #### 5 607, 88199 #### [facility] [address] [place] [address], [place] Hematocrit (Bld) [Volume fraction] 42.0 % Normal 39.0-50.0 [facility] Comment on above: Order Comment: No: D o not add to previous draw Performed By: #### 5 06, 51786 #### [facility] [address] [place] [address], [facility] Hemoglobin (Bld) [Mass/Vol] 13.7 g/dL Normal 13.0-17.0 [facility] Comment on above: Order Comment: No: D o not add to previous draw Performed By: #### 5 607, 71550 #### [facility] [address] [place] [address], [facility] MCH (RBC) [Entitic mass] 31.5 pg Normal 27.0-33.0 [facility] Comment on above: Order Comment: No: D o not add to previous draw Performed By: #### 5 607, 63672 #### [facility] [address] [place] [address], [facility] MCHC (RBC) [Mass/Vol] 32.6 g/dL Normal 32.0-35.0 [facility] Comment on above: Order Comment: No: D o not add to previous draw Performed By: #### 5 607, 31993 #### [facility] [address] [place] [address], [facility] MCV (RBC) [Entitic vol] 96.6 fL Normal 82.0-98.0 [facility] Comment on above: Order Comment: No: D o not add to previous draw Performed By: #### 5 607, 53764 #### [facility] [address] [place] [address], [facility] Nucleated RBC/100 WBC (Bld) [Ratio] 0 % Normal 0-0 [facility] Comment on above: Order Comment: No: D o not add to previous draw Performed By: #### 5 607, 06599 #### [facility] [address] [place] [id number], [facility] PLAT CNT 298 10*3/uL Normal 150-400 [facility] Comment on above: Order Comment: No: D o not add to previous draw Performed By: #### 5 0608, 39521 #### [facility] [address] [place] [address], [facility] RBC (Bld) [#/Vol] 4.35 10*6/uL Normal 4.20-5.70 [facility] Comment on above: Order Comment: No: D o not add to previous draw Performed By: #### 5 0608, 27428 #### [facility] [address] [place] [id number], [facility] WBC (Bld) [#/Vol] 10.30 10*3/uL Normal 4.00-10.60 [facility] Comment on above: Order Comment: No: D o not add to previous draw Performed By: #### 5 0608, 70691 #### [facility] [address] [place] [id number], [facility] MAGNESIUM BLOODon 11-02-2021 Magnesium [Mass/Vol] 2.0 mg/dL Normal 1.9-2.7 [facility] Comment on above: Order Comment: No: D o not add to previous draw Performed By: #### 5 0608, 20706 #### [facility] [address] [place] [id number], [facility] POC GLUCOSE LABon 11-02-2021 Glucose [Mass/Vol] 296 mg/dL High 70-100 [facility] Comment on above: Performed By: #### 5 7307, 41454 #### [facility] [address] [place] [address], [facility] Glucose [Mass/Vol] 262 mg/dL High 70-100 [facility] Comment on above: Performed By: #### 5 7307, 02993 #### [facility] [address] [address] PORTABLE CHEST 1 VIEWon 10-17 PORTABLE CHEST 1 VIEW [facility] Department of Radiology [address] [place] [id number] Patient Name: RICHARD BOYKNI : 1940 Sex: M Age: Race: NA Pt. Location: [id number] Patient Status: I Ordered Date: 11/02/2021 12:05:00 [...] effusions. Electronically signed: Guilherme Abarca. Transcribed by: [email or web address], User Resident: Electronically Signed by: GUILHERME Dionna ABARCA @ 11/02/2021 12:49 PM Normal [facility] Comment on above: Order Comment: Check Line Position, right arm picc *ANAEROBIC CULTUREon 022 *ANAEROBIC CULTURE Clinical Report: (D) Specimen: FLUID Collected: 11/01/2021 15:30 Status: Final Last Updated: 11/06/2021 07:46 (1) RT SC JOINT CULT RES (Final) No Anaerobes Isolated 5 Days Normal [facility] Comment on above: Order Comment: Check Line Position, right arm picc Performed By: #### 3 0312 ####[facility] [address] *ANAEROBIC CULTURE Clinical Report: (D) Specimen: TISSUE Collected: 11/01/2021 15:10 Status: Final Last Updated: 11/06/2021 07:46 (1) RT SC JOINT CULT RES (Final) No Anaerobes Isolated 5 Days Normal [facility] Comment on above: Order Comment: Check Line Position, right arm picc Performed By: #### 3 0312 ####[facility] [address] *BODY FLUID CULTUREon 2021 *BODY FLUID CULTURE Clinical Report: (D) Specimen: FLUID Collected: 11/01/2021 15:30 Status: Final Last Updated: 11/06/2021 06:31 (1) RT SC JOINT GRAM (Final) Quantity Not Sufficient CULT RES (Final) No Growth Day 5 Normal [facility] Comment on above: Order Comment: RT SC JOINT Performed By: #### 5 0608, 28454 #### [facility] [address] *FUNGAL CULTUREon 11-01-2021 *FUNGAL CULTURE Clinical Report: (D) Specimen: TISSUE Collected: 11/01/2021 15:10 Status: Final Last Updated: 12/03/2021 07:55 (1) RT SC JOINT FS (Final) No Yeast or Fungal Elements Seen CULT RES (Final) Culture negative for fungus Normal [facility] Comment on above: Order Comment: Check Line Position, right arm picc Performed By: #### 3 0323 ####[facility] [address] *TISSUE CULTUREon 11-01-2021 *TISSUE CULTURE Clinical Report: (D) Specimen: TISSUE Collected: 11/01/2021 15:10 Status: Final Last Updated: 11/06/2021 06:37 (1) RT SC JOINT GRAM (Final) Moderate Polys No Bacteria Seen CULT RES (Final) No Growth Day 5 Normal [facility] Comment on above: Order Comment: Check Line Position, right arm picc Performed By: #### 3 0338 ####[address] BIOPSY ARM/WRIST SOFT TIS KIMBERLEY RIGHTon 11-01-2021 CT BIOPSY ARM/WRIST SOFT TISSUE RIGHT [facility] Department of Radiology [address] [place] [address] Patient Name: RICHARD BOYKIN : 1940 Sex: M Age: Race: NA Pt. Location: [id number] Patient Status: D Ordered Date: 11/01/2021 8:00:00 [...] risks are acceptable. Consent was obtained. Timeout: [place] protocol timeout verification performed. MEDICATIONS: 1 mg [...] report. Electronically signed: Tara Hall. 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 Will order aspiraton of the proximal RIGHT sternoclavicular joint seperately POC GLUCOSE LABon 11-01-2021 Glucose [Mass/Vol] 326 mg/dL High 70-100 [facility] Comment on above: Performed By: #### 5 7307, 49031 #### [facility] [address] [place] [address], [place] Glucose [Mass/Vol] 245 mg/dL High 70-100 [facility] Comment on above: Performed By: #### 5 7307, 55297 #### [facility] [address] [place] [address], [place] Glucose [Mass/Vol] 299 mg/dL High 70-100 [facility] Comment on above: Performed By: #### 5 7307, 01139 #### [facility] [address] [place] [address], [place] Glucose [Mass/Vol] 227 mg/dL High 70-100 [facility] Comment on above: Performed By: #### 5 7307, 20096 #### [facility] [address] [facility] [place] [address], [facility] POC SARS COV2 IDon 2 SARS-CoV-2 (COVID-19) RNA KIKO+probe Ql (Unsp spec) Negative Normal NEGATIVE [facility] Comment on above: Result Comment: ID [...] of Accreditation. Performed By: #### 5 0608, 54044 #### [facility] [address] [facility] [place] [address], [facility] POC GLUCOSE LABon 10-31-2021 Glucose [Mass/Vol] 236 mg/dL High 70-100 [facility] Comment on above: Performed By: #### 5 7307, 44366 #### [facility] [address] [facility] [place] [address], [facility] Glucose [Mass/Vol] 274 mg/dL High 70-100 [facility] Comment on above: Performed By: #### 5 7307, 30652 #### [facility] [address] [facility] [place] [address], [facility] Glucose [Mass/Vol] 317 mg/dL High 70-100 [facility] Comment on above: Performed By: #### 5 7307, 22827 #### [facility] [address] [place] [address], [facility] Glucose [Mass/Vol] 225 mg/dL High 70-100 [facility] Comment on above: Performed By: #### 5 7307, 22346 #### [facility] [address] [facility] [address] *BLOOD CULTUREon 10-30-2021 *BLOOD CULTURE Clinical Report: (D) Specimen: BLOOD CULTURE Collected: 10/29/2021 23:08 Status: Final Last Updated: 11/04/2021 08:31 CULT RES (Final) No Growth Day 5 Normal [facility] Comment on above: Performed By: #### 5 7307, 50284 #### [facility] [address] [facility]. [address] APTTon 10-30-2021 aPTT Coag (Bld) [Time] 51.2 s High 25.0-35.0 [facility] Comment on above: Order Comment: [...] THIS PURPOSE. Performed By: #### 5 0608, 67079 #### [facility] [address] [facility] [address], [facility] BASIC METABOLIC PANELon 10-17 Calcium [Mass/Vol] 8.9 mg/dL Normal 8.6-10.3 [facility] Comment on above: Order Comment: No: D o not add to previous drawMissed Performed By: #### 5 0608, 32996 #### [facility] [address] [facility] [place] [address], [facility] Chloride [Moles/Vol] 99 mmol/L Normal 98-107 [facility] Comment on above: Order Comment: No: D o not add to previous drawMissed Performed By: #### 5 0608, 67036 #### [facility] [address] [place] [address], [place] CO2 [Moles/Vol] 27 mmol/L Normal 21-31 [facility] Comment on above: Order Comment: No: D o not add to previous drawMissed Performed By: #### 5 06, 63920 #### [facility] [address] [place] [address], [place] Creatinine [Mass/Vol] 1.08 mg/dL Normal 0.70-1.30 [facility] Comment on above: Order Comment: No: D o not add to previous drawMissed Performed By: #### 5 0608, 97286 #### [facility] [address] [place] [address], [place] GFR/1.73 sq M.predicted among blacks MDRD (S/P/Bld) [Vol rate/Area] mL/min/{1.73_m2} Normal >60 [facility] Comment on above: Order Comment: No: D o not add to previous drawMissed Result Comment: Calc ulation may not be valid for patients over 70 years Performed By: #### 5 0608, 02170 #### [facility] [address] [place] [address], [place] GFR/1.73 sq M.predicted among non-blacks MDRD (S/P/Bld) [Vol rate/Area] mL/min/{1.73_m2} Normal >60 [facility] Comment on above: Order Comment: No: D o not add to previous drawMissed Result Comment: Calc ulation may not be valid for patients over 70 years Performed By: #### 5 0608, 34733 #### [facility] [address] [place] [address], [place] Glucose [Mass/Vol] 257 mg/dL High 70-100 [facility] Comment on above: Order Comment: No: D o not add to previous drawMissed Performed By: #### 5 0608, 12521 #### [facility] [address] [place] [address], [facility] Potassium [Moles/Vol] 4.5 mmol/L Normal 3.5-5.1 [facility] Comment on above: Order Comment: No: D o not add to previous drawMissed Performed By: #### 5 06, 20694 #### [facility] [address] [place] [id number], [facility] Sodium [Moles/Vol] 135 mmol/L Low 136-145 [facility] Comment on above: Order Comment: No: D o not add to previous drawMissed Performed By: #### 5 06, 66406 #### [facility] [address] [place] [address], [facility] Urea nitrogen [Mass/Vol] 27 mg/dL High 7-25 [facility] Comment on above: Order Comment: No: D o not add to previous drawMissed Performed By: #### 5 06, 73329 #### [facility] [address] [place] [address], [facility] C REACTIVE PROTEINon 10-30-2 022 CRP [Mass/Vol] 278.0 mg/L High 0.0-7.0 [facility] Comment on above: Order Comment: No: D o not add to previous draw Performed By: #### 5 7307, 61312 #### [facility] [address] [place] [address], [facility] CBC COMPLETE BLOOD COUNTon 0 10-30-2021 Erythrocyte distribution width (RBC) [Ratio] 14.6 % Normal 11.5-15.0 [facility] Comment on above: Order Comment: No: D o not add to previous draw Missed Performed By: #### 5 0631, 81990 #### [facility] [address] [place] [address], [facility] Hematocrit (Bld) [Volume fraction] 41.4 % Normal 39.0-50.0 [facility] Comment on above: Order Comment: No: D o not add to previous draw Missed Performed By: #### 5 06, 85963 #### [facility] [address] [place] [id number], [facility] Hemoglobin (Bld) [Mass/Vol] 13.9 g/dL Normal 13.0-17.0 [facility] Comment on above: Order Comment: No: D o not add to previous draw Missed Performed By: #### 5 06, 92665 #### [facility] [address] [place] [address], [facility] MCH (RBC) [Entitic mass] 32.0 pg Normal 27.0-33.0 [facility] Comment on above: Order Comment: No: D o not add to previous draw Missed Performed By: #### 5 06, 34555 #### [facility] [address] [place] [address], [facility] MCHC (RBC) [Mass/Vol] 33.6 g/dL Normal 32.0-35.0 [facility] Comment on above: Order Comment: No: D o not add to previous draw Missed Performed By: #### 5 607, 79254 #### [facility] [address] [place] [address], [facility] MCV (RBC) [Entitic vol] 95.2 fL Normal 82.0-98.0 [facility] Comment on above: Order Comment: No: D o not add to previous draw Missed Performed By: #### 5 06, 15930 #### [facility] [address] [place] [id number], [facility] Nucleated RBC/100 WBC (Bld) [Ratio] 0 % Normal 0-0 [facility] Comment on above: Order Comment: No: D o not add to previous draw Missed Performed By: #### 5 0608, 77505 #### [facility] [address] [place] [address], [place] PLAT CNT 211 10*3/uL Normal 150-400 [facility] Comment on above: Order Comment: No: D o not add to previous draw Missed Performed By: #### 5 0608, 37050 #### [facility] [address] [place] [address], [facility] RBC (Bld) [#/Vol] 4.35 10*6/uL Normal 4.20-5.70 [facility] Comment on above: Order Comment: No: D o not add to previous draw Missed Performed By: #### 5 0608, 03721 #### [facility] [address] [place] [id number], [facility] WBC (Bld) [#/Vol] 9.94 10*3/uL Normal 4.00-10.60 [facility] Comment on above: Order Comment: No: D o not add to previous draw Missed Performed By: #### 5 0608, 80752 #### [facility] [address] [place] [id number], [facility] LACTATE WITH REFLEXon 2021 Lactate [Moles/Vol] 1.5 mmol/L Normal .5-2.2 [facility] Comment on above: Order Comment: No: D o not add to previous draw Performed By: #### 3 1414 #### [facility] [address] [place] [address], [place] MAGNESIUM BLOODon 10-30-2021 Magnesium [Mass/Vol] 2.0 mg/dL Normal 1.9-2.7 [facility] Comment on above: Order Comment: No: D o not add to previous draw Performed By: #### 5 7307, 87850 #### [facility] [address] [place] [address], [place] PHOSPHORUS BLOODon 05-14-202 2 Phosphate [Mass/Vol] 3.0 mg/dL Normal 2.5-5.0 [facility] Comment on above: Order Comment: No: D o not add to previous draw Performed By: #### 5 7307, 09202 #### [facility] [address] [place] [address], [place] POC GLUCOSE LABon 10-30-2021 Glucose [Mass/Vol] 355 mg/dL High 70-100 [facility] Comment on above: Performed By: #### 5 7307, 75816 #### [facility] [address] [place] [address], [place] Glucose [Mass/Vol] 318 mg/dL High 70-100 [facility] Comment on above: Performed By: #### 5 7307, 49867 #### [facility] [address] [place] [address], [place] Glucose [Mass/Vol] 244 mg/dL High 70-100 [facility] Comment on above: Performed By: #### 5 7307, 72149 #### [facility] [address] [place] [address], [place] Glucose [Mass/Vol] 294 mg/dL High 70-100 [facility] Comment on above: Performed By: #### 5 7307, 73109 #### [facility] [address] [place] [address], [place] PROTHROMBIN TIMEon 2 INR Coag (PPP) [Relative time] 1.09 {INR} Normal 0.91-1.16 [facility] Comment on above: Order Comment: [...] CHEST 1995;108:231S-246S. Performed By: #### 5 0608, 45968 #### [facility] [address] PT Coag (PPP) [Time] 14.1 s Normal 12.3-14.8 [facility] Comment on above: Order Comment: No: D o not add to previous drawMissed Result Comment: ALL RESULTS MUST BE INTERPRETED WITH RESPECT TO BLOOD DRAWING ARTIFACT OR DILUTION ERROR OF ANTICOAGULANT AT THE TIME OF SAMPLING. Performed By: #### 5 0608, 81926 #### [facility] [address] SEDIMENTATION RATEon 2 022 SED RATE 43 mm/hr High 0-10 [facility] Comment on above: Performed By: #### 5 0608, 17830 #### [facility] [address] *BLOOD CULTUREon 10-29-2021 *BLOOD CULTURE Clinical Report: (D) Specimen: BLOOD CULTURE Collected: 10/29/2021 21:05 Status: Final Last Updated: 11/04/2021 08:31 (1) 2051 CULT RES (Final) No Growth Day 5 Normal [facility] Comment on above: Order Comment: No: D o not add to previous draw Performed By: #### 5 7307, 51844 #### [facility] [address] *BLOOD CULTURE Clinical Report: (D) Specimen: BLOOD CULTURE Collected: 10/29/2021 21:05 Status: Final Last Updated: 11/04/2021 08:31 (1) RH 2100 CULT RES (Final) No Growth Day 5 Normal [facility] Comment on above: Order Comment: Check Line Position, right arm picc Performed By: #### 3 0313 ####[facility] APTTon 10-29-2021 aPTT Coag (Bld) [Time] 47.5 s High 25.0-35.0 [facility] Comment on above: Order Comment: [...] THIS PURPOSE. Performed By: #### 5 7307, 85387 #### [facility] [address] [facility] [place] [address], [facility] BASIC METABOLIC PANELon 10-17 Calcium [Mass/Vol] 8.7 mg/dL Normal 8.6-10.3 [facility] Comment on above: Order Comment: No: D o not add to previous draw Performed By: #### 1 0070, 95488, 56540, 82017 #### [facility] [address] [place] [address], [facility] Chloride [Moles/Vol] 100 mmol/L Normal 98-107 [facility] Comment on above: Order Comment: No: D o not add to previous draw Performed By: #### 1 0070, 66206, 45771, 83240 #### [facility] [address] [place] [id number], [facility] CO2 [Moles/Vol] 25 mmol/L Normal 21-31 [facility] Comment on above: Order Comment: No: D o not add to previous draw Performed By: #### 1 0070, 79783, 65790, 09299 #### [facility] [address] [place] [address], [place] Creatinine [Mass/Vol] 1.14 mg/dL Normal 0.70-1.30 [facility] Comment on above: Order Comment: No: D o not add to previous draw Performed By: #### 1 0070, 73477, 14821, 88525 #### [facility] [address] [place] [address], [facility] GFR/1.73 sq M.predicted among blacks MDRD (S/P/Bld) [Vol rate/Area] mL/min/{1.73_m2} Normal >60 [facility] Comment on above: Order Comment: No: D o not add to previous draw Result Comment: Calc ulation may not be valid for patients over 70 years Performed By: #### 1 0070, 49647, 40612, 41017 #### [facility] [address] [place] [address], [facility] GFR/1.73 sq M.predicted among non-blacks MDRD (S/P/Bld) [Vol rate/Area] mL/min/{1.73_m2} Normal >60 [facility] Comment on above: Order Comment: No: D o not add to previous draw Result Comment: Calc ulation may not be valid for patients over 70 years Performed By: #### 1 0070, 48884, 50159, 04124 #### [facility] [address] [place] [address], [place] Glucose [Mass/Vol] 261 mg/dL High 70-100 [facility] Comment on above: Order Comment: No: D o not add to previous draw Performed By: #### 1 0070, 90207, 85369, 79161 #### [facility] [address] [place] [address], [facility] Potassium [Moles/Vol] 4.4 mmol/L Normal 3.5-5.1 [facility] Comment on above: Order Comment: No: D o not add to previous draw Performed By: #### 1 0070, 43234, 49310, 80046 #### [facility] [address] [place] [address], [facility] Sodium [Moles/Vol] 134 mmol/L Low 136-145 [facility] Comment on above: Order Comment: No: D o not add to previous draw Performed By: #### 1 0070, 21686, 55893, 51308 #### [facility] [address] [place] [address], [facility] Urea nitrogen [Mass/Vol] 30 mg/dL High 7-25 [facility] Comment on above: Order Comment: No: D o not add to previous draw Performed By: #### 1 0070, 37290, 63866, 96057 #### [facility] [address] [place] [id number], [facility] LIVER BATTERYon 10-29-2021 Albumin [Mass/Vol] 3.0 g/dL Low 3.5-5.7 [facility] Comment on above: Order Comment: No: D o not add to previous draw Missed twice. Rhiannon Riojas notified. Performed By: #### 1 0070, 33325, 77085, 86158 #### [facility] [address] [place] [address], [facility] ALKALINE PHOSPH 159 IU/L High 34-104 [facility] Comment on above: Order Comment: No: D o not add to previous draw Missed twice. Rhiannon Riojas notified. Performed By: #### 1 0070, 37144, 38527, 28191 #### [facility] [address] [place] [id number], [facility] ALT [Catalytic activity/Vol] 25 U/L Normal 7-52 [facility] Comment on above: Order Comment: No: D o not add to previous draw Missed twice. Rhiannon Riojas notified. Performed By: #### 1 0070, 49659, 24866, 10214 #### [facility] [address] [place] [address], [facility] AST [Catalytic activity/Vol] 40 U/L High 13-39 [facility] Comment on above: Order Comment: No: D o not add to previous draw Missed twice. Rhiannon Riojas notified. Performed By: #### 1 0070, 86262, 89891, 84214 #### [facility] [address] [place] [address], [facility] Bilirubin [Mass/Vol] 0.8 mg/dL Normal 0.3-1.0 [facility] Comment on above: Order Comment: No: D o not add to previous draw Missed twice. Rhiannon Riojas notified. Performed By: #### 1 0070, 82381, 48528, 65297 #### [facility] [address] [place] [address], [facility] Bilirubin.direct [Mass/Vol] 0.1 mg/dL Normal 0.0-0.2 [facility] Comment on above: Order Comment: No: D o not add to previous draw Missed twice. Rhiannon Riojas notified. Performed By: #### 1 0070, 86406, 83942, 77555 #### [facility] [address] [place] [address], [facility] Protein [Mass/Vol] 6.7 g/dL Normal 6.0-8.3 [facility] Comment on above: Order Comment: No: D o not add to previous draw Missed twice. Rhiannon Riojas notified. Performed By: #### 1 0070, 22379, 13570, 48229 #### [facility] [address] [place] [address], [place] MAGNESIUM BLOODon 10-29-2021 Magnesium [Mass/Vol] 2.1 mg/dL Normal 1.9-2.7 [facility] Comment on above: Order Comment: No: D o not add to previous draw Performed By: #### 1 0070, 15227, 65272, 43917 #### [facility] [address] [facility] [place] [address], [facility] PHOSPHORUS BLOODon 2 Phosphate [Mass/Vol] 2.7 mg/dL Normal 2.5-5.0 [facility] Comment on above: Order Comment: No: D o not add to previous draw Performed By: #### 1 0070, 91951, 27840, 41150 #### [facility] [address] [place] [address], [facility] POC GLUCOSE LABon 2 Glucose [Mass/Vol] 262 mg/dL High 70-100 [facility] Comment on above: Performed By: #### 5 7307, 07209 #### [facility] [address] [facility] [address] PROTHROMBIN TIMEon 2 INR Coag (PPP) [Relative time] 1.05 {INR} Normal 0.91-1.16 [facility] Comment on above: Order Comment: [...] CHEST 1995;108:231S-246S. Performed By: #### 5 7307, 31377 #### [facility] [address] [facility]. [address] PT Coag (PPP) [Time] 13.7 s Normal 12.3-14.8 [facility] Comment on above: Order Comment: No: D o not add to previous draw Result Comment: ALL RESULTS MUST BE INTERPRETED WITH RESPECT TO BLOOD DRAWING ARTIFACT OR DILUTION ERROR OF ANTICOAGULANT AT THE TIME OF SAMPLING. Performed By: #### 5 7307, 13456 #### [facility] [address] [facility] [address] XR knee RT 2Von 03-11-2021 XR knee RT 2V [facility] Main [place] [address] [place] [address] XRay Report Signed Patient: Richard Boykin MR#: [id number] : 1940 Acct:[id number] Age/Sex: 80 / M ADM Date: 03/11/21 Loc: [facility] Room: Type: [facility] Attending Dr: Godfrey Gomez MD [...] Jama Callejas M.D.03/11/2021 1:29 PM Dictation Location: [place] [address] Transcribed By: FLAVIA 03/11/21 1322 Dictated By: Jama Callejas II, MD 03/11/21 1328 Signed By: 03/11/21 1329 Normal [facility] XR knee RT 2V [facility] Other XR knee RT 2V [facility] Other XR knee RT 2V [address] [facility] Other XR knee RT 2V [place] [address] [facility] Other XR knee RT 2V XRay Report [employer] Other XR knee RT 2V Signed [employer] Other XR knee RT 2V Patient: Richard Boykin MR#: [id number] [facility]co Other XR knee RT 2V : 1940 Acct:[id number] [employer] Other XR knee RT 2V Age/Sex: 80 / M ADM Date: 03/11/21 [facility] Other XR knee RT 2V Loc: [facility] Room: Type: [facility] [employer] Other XR knee RT 2V Attending Dr: Godfrey Gomez MD [employer] Other XR knee RT 2V Ordering Provider: Godfrey Gomez MD [facility] Other XR knee RT 2V Date of Service: 03/11/21 [employer] Other XR knee RT 2V XR/XR knee RT 2V: Arthritis of right knee [facility] Other XR knee RT 2V Copies to: Godfrey Gomez MD [facility] Other XR knee RT 2V XR knee RT 2V 03/11/2021 7:52 AM [employer] Other XR knee RT 2V SIGNS AND SYMPTOMS: Status post total right knee arthroplasty placement, follow-up [employer] Other XR knee RT 2V PROTOCOL: Frontal and lateral graphs of the right knee [employer] Other XR knee RT 2V COMPARISON: 10/08/2020 [facility] Other XR knee RT 2V FINDINGS: [employer] Other XR knee RT 2V There is total right knee arthroplasty hardware without hardware complication or malalignment. [employer] Other XR knee RT 2V There is no significant soft tissue swelling. No evidence of fracture. Vascular calcifications are [employer] Other XR knee RT 2V present posteriorly. N [employer] Other XR knee RT 2V XR/XR knee RT 2V [facility] Other XR knee RT 2V IMPRESSION: [employer] Other XR knee RT 2V Unchanged total right knee arthroplasty hardware. No fracture or hardware complication. [employer] Other XR knee RT 2V Impression dictated by: Jama Callejas M.D.03/11/2021 1:29 PM [employer] Other XR knee RT 2V Dictation Location: [place] [address] [employer] Other XR knee RT 2V Transcribed By: FLAVIA 03/11/21 [facility] Other XR knee RT 2V Dictated By: Jama Callejas II, MD 03/11/21 [facility] Other XR knee RT 2V Signed By: [employer] Other XR knee RT 2V 03/11/21 [facility] [employer] Other Vital Signs Date Time Vital Sign Value Performing Clinician Faci lity 06-16-2022 11:15-6863 Body height 177.8 cm Teofilo Person Other Shirley [facility]co Other Encounters Encounter Date Encounter Type Care Provider Facility Start: 08-07-2024 End: 08-07-2024 ambulatory Marj Sorensen Facility:[facility] Start: 08-07-2024 ambulatory Rigo Edu Facility: [facility] Start: 05-28-2024 ambulatory Rigo Edu Facility: [facility] Start: 05-21-2024 End: 05-21-2024 ambulatory Rigo Edu Facility:[facility] lauren Start: 04-18-2024 End: 04-18-2024 ambulatory Marj Sorensen Facility:[facility] Start: 04-18-2024 End: 04-18-2024 ambulatory Marj Sorensen [facility] Start: 04-04-2024 End: 04-04-2024 ambulatory Marj Sorensen Facility: [facility] Start: 04-04-2024 End: 04-04-2024 ambulatory Marj Sorensen Facility:[facility] Start: 04-01-2024 End: 04-01-2024 ambulatory [facility] Start: 02-28-2024 End: 02-28-2024 ambulatory Marj Sorensen Facility: [facility] Start: 02-06-2024 End: 04-16-2024 ambulatory CAREY FUNG Facility:[facility] Start: 01-24-2024 End: 01-24-2024 ambulatory Mraj Sorensen Facility: [facility] Start: 12-06-2023 End: 04-16-2024 ambulatory Marj Dugan Edu Facility:[facility] Start: 10-06-2023 End: 10-06-2023 ambulatory [facility] Start: 10-05-2023 End: 10-05-2023 ambulatory Marj Sorensen Facility:[facility] Start: 02-27-2023 End: 02-27-2023 ambulatory UNKNOWN PROVIDER Facility:[facility] Start: 10-24-2022 End: 10-25-[address] DOCTOR MALCOLM Facility:[facility] Start: 03-26-2022 End: 03-27-[address] DOCTOR MALCOLM Facility:[facility] Start: 01-19-2022 End: 01-19-2022 Patient encounter procedure MD Marj Sorensen Work Phone: [facility] Start: 12-21-2021 End: 12-22-[address] SWEETIE TOMLINSON Facility:[facility] Start: 12-02-2021 End: 12-02-2021 ambulatory Teofilo Person Other [employer] Other Start: 12-02-2021 Office outpatient visit 25 minutes Teofilo Person [facility] Start: 12-02-2021 End: 12-02-2021 Patient encounter procedure MD Marj Sorensen Work Phone: [facility] Start: 10-29-2021 End: 11-02-2021 Evaluation and management of inpatient MARJ SORENSEN Facility:[facility] Start: 10-29-2021 Telephone encounter Aly koo MD Work Phone: [facility] Start: 10-28-2021 End: 10-28-2021 ambulatory Godfrey Gomez Other [facility] Other Start: 10-28-2021 Telephone encounter Godfrey Gomez [facility] Start: 03-11-2021 Office outpatient visit 15 minutes Lydia Anderson [facility] Procedures Date Procedure Procedure Detail Performing Clinician Start: 12-02-2021 Plain X-ray of right shoulder MD Marj Sorensen Work Phone: Plan of Treatment Date Care Activity Detail Author Start: 10-29-2021 Welcome to Medicare Visit (G0402) Welcome to Medicare Visit (G0402) [facility] Start: 2006 Pneumococcal vaccination Pneum ococcal Vaccine(s) (65+ yrs) (1 - PCV) [facility] Start: 1991 Shingles (RZV) Vacci ne (1 of 2) Shingles (RZV) Vaccine (1 of 2) [facility] Start: 1959 Tetanus + diphtheria + acellular pertussis vaccine (product) Tdap [facility] [facility] Start: 1946 COVID-19 Vaccine (1) COVID-19 Vaccin e (1) [facility] Payers Date Payer Category Payer Medicare MEDICARE MEDICAR E PART A & B [id number] 2021-Present [address] [place] [address] Medicare [id number] 2021 Unknown AARP AARP [id number] [id number] 2021-Present [address] [place] [address] [id number] 1959 Medicare [id number] 1959 Unknown [id number] 1940 Unknown [id number] [id number] 1940 Unknown [id number] 2.16.840.1.506808.3.579.2.593 1941 Unknown [id number] 2.16.840.1.406382.3.579.2.593 1941 Unknown [id number] 2.16.840.1.931693.3.579.2.593 1941 Unknown [id number] 2.16.840.1.821724.3.579.2.732 1941 Unknown [id number] 2.16.840.1.586094.3.579.2.718 1941 Unknown [id number] 2.16.840.1.407094.3.579.2.718 1941 Unknown [id number] 2.16.840.1.347074.3.579.2.718 1941 Unknown [id number] 2.16.840.1.059026.3.579.2.718 1941 Unknown [id number] 2.16.840.1.991202.3.579.2.718 1941 Unknown [id number] 2.16.840.1.165391.3.579.2.8 1941 Unknown [id number] 1940 Unknown [id number] 1940 Unknown [id number] 1940 Unknown [id number] 1940 Unknown [id number] [id number] 1940 Unknown [id number] 1940 Unknown [id number] Self-pay Self Pay [id number] Social History Date Type Detail Facility Tobacco smoking status [facility] Tobacco smoking consumption unknown [facility] Work Phone: Start: 1940 Sex Assigned At Not on file M [facility] Sex Assigned At Sex Assigned At Bir th [facility] Other Start: 02-27-2020 Tobacco smoking status ARIS Never smoked tobacco (finding) [facility] Start: 1940 Sex Assigned At Male [facility] Medical Equipment Procedure Code Equipment Code Equipment Origin al Text Equipment Identifier Dates Arthroplasty, knee, total, minimally invasive Orthopaedic cement, non-medicated ([id number] FDA Start: 02-27-2020 Arthroplasty, knee, total, minimally invasive Uncoated knee femur prosthesis ()[id number] FDA Start: 02-27-2020 Arthroplasty, knee, total, minimally invasive Tibial insert ()[id number] FDA Start: 02-27-2020 Arthroplasty, knee, total, minimally invasive Polyethylene patella prosthesis ()[id number] FDA Start: 02-27-2020 Arthroplasty, knee, total, minimally invasive Knee stem ()[id number] FDA Start: 02-27-2020 Arthroplasty, knee, total, minimally invasive Uncoated knee tibia prosthesis, metallic ()[id number] FDA Start: 02-27-2020 Clinical Notes 03-11-2021 to 04-01-2024 Note Date & Type Note Facility 04-01-2024 Note [place] [facility] Subjective Richard Boykin is a 83 y.o. year old male patient being seen for follow up echo and DAVON's. Denies chest pain, SOB, palpitations, lightheadedness/syncope, and bleeding on Eliquis. 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 Right lower lobe pneumonia Chronic diastolic heart failure ([facility]) Nonrheumatic aortic valve stenosis PAD (peripheral artery disease) ([facility]) Mixed hyperglyceridemia History of arthritis Gout Dyspnea on exertion Chronic renal impairment Back pain Ulcer of toe ([facility]) Paroxysmal atrial fibrillation ([facility]) Type 2 diabetes mellitus ([facility] Diabetes mellitus ([facility] Hypertension Peripheral arterial occlusive disease ([facility]) Peripheral vascular disease ([facility]) Osteoarthritis Aortic valve stenosis Hyperlipidemia Leg ulcer, left, with unspecified severity ([facility]) JENARO (acute kidney injury) ([facility]) Allergic rhinitis Cellulitis of toe of right foot Vertigo Fatigue Gastroesophageal reflux disease Heart failure (CMS/HCC) Idiopathic peripheral neuropathy Immunodeficiency disorder (CMS/HCC) Morbid obesity (CMS/HCC) Muscle weakness Psoriasis 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 He follows with a trimming cutter machine. Recent testing: ECG 10/25/2021: Atrial fibrillation, nonspecific [...] walker to ambulate. He continues to see trimming cutter machine and has a nurse that comes to [...] bilaterally. Visit of 03/25/2022: He is seen (more content not included)... [facility] 03-13-2024 Note Entered by Yvonne Lin on March 13, 2024 08:35:34 EDT From: Yvonne Lni To: [facility] Sent: 03/13/2024 08:35:34 [...] 1 year supply Signed by Yvonne Lin ---- From: [facility] To: Marj Sorensen MD Sent: March 12, 2024 10:03:01 PM CDT Subject: Medication Management Due: March 13, 2024 12:04:00 AM CDT On Hold Pending Signature Drug: hydrochlorothiazide-lisinopril (hydrochlorothiazide-lisinopril 12.5 mg-10 mg oral tablet), TAKE 1 TABLET BY MOUTH DAILY Quantity: 30 tab(s) Days Supply: 30 Refills: 0 Substitutions Allowed Notes from Pharmacy: - First Attempt Ref: [id number] Dispensed Drug: hydrochlorothiazide-lisinopril (hydrochlorothiazide-lisinopril 12.5 mg-10 mg oral tablet), TAKE 1 TABLET BY MOUTH DAILY Quantity: 30 tab(s) Days Supply: 30 Refills: 11 Substitutions Allowed Notes from Pharmacy: Requesting 1 year supply ---- [facility] 12-11-2023 Note [id number] [id number] [place] [facility] Subjective Richard Boykin is a 83 y.o. 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 Right lower lobe pneumonia Chronic diastolic heart failure ([facility]) Nonrheumatic aortic valve stenosis PAD (peripheral artery disease) ([facility]) Mixed hyperglyceridemia History of arthritis Gout Dyspnea on exertion Chronic renal impairment Back pain Ulcer of toe ([facility]) Paroxysmal atrial fibrillation ([facility]) Type 2 diabetes mellitus ([facility] Diabetes mellitus ([facility]) Hypertension Peripheral arterial occlusive disease ([facility]) Peripheral vascular disease ([facility]) Osteoarthritis Aortic valve stenosis Hyperlipidemia Leg [...] 30 to November 02, 2021 at [facility] with MSSA bacteremia likely related to septic [...] 3 years ago. He follows with a trimming cutter machine. Recent testing: ECG 10/25/2021: Atrial fibrillation, nonspecific [...] walker to ambulate. He continues to see trimming cutter machine and has a nurse that comes to [...] TSH: I as (more content not included)... [facility] 12-02-2021 Evaluation note Encounter Date Diagnosis [...] discuss treatment if continues to cause issues [facility] Other 05-18-2022 NoteMR#: [id number] I [facility] Pt. Name: Richard Boykin Admitted: 10/29/2021 Discharged: 11/02/2021 Date of : 1940 Physician: Alicia Sweet MD DISCHARGE SUMMARY FINAL DIAGNOSES: 1. Methicillin-susceptible Staphylococcus aureus bacteremia. 2. Probable septic joint infection. 3. Right knee replacement. 4. New onset atrial fibrillation with RVR. 5. Nonobstructive coronary artery disease and peripheral arterial disease. 6. Ibl-hrpcltm-tjqgdrwwt diabetes mellitus. 7. Hypertension. HISTORY OF PRESENT [...] remained negative. He had a TTE at [facility] with poor image quality. There were no evidence of secondary source of infection on physical exam. Apparently, his repeat cultures at [facility] on October 24 and October 25, [...] his need for full anticoagulation with the package dyeing machine operator on an outpatient basis. He understands that [...] Sweet MD Date Trans: 11/03/2021 09:12 A/lindsay MARSH_EZE:[id number] cc: Marj Sorensen M.D. [address] [place] [id number] Miscellaneous Notes* Telephone Encounter - Aly Mcclelland MD - 10/29/2021 2:59 PM EDT I was called by [facility] about patient with septic arthritis and bacteremia requesting transfer for higher level of care. 81 obese, afib, CAD, PAD, hx hip/knee replacement recently moved back from [place]. Presented on 10/24 with R shoulder pain [...] instability. Aly Mcclelland MD documented in this [id number] Evaluation note* Encounter Date Diagnosis Assessment Notes [...] Feb, Restless leg syndrome (ICD-10 - G25.81) [facility] Other Evaluation noteNo InformationNortDecohunt Other Evaluation noteNo assessment information available [facility] Work Phone: History general Narrative - Reported* Type Description Date Medical History PVD Medical History psoriatic arthritis Medical History diabetes mallitus Medical History Gout arthrits Medical History hypertension Surgical History Bilateral hip replacement Surgical History cataract Surgical History left total hip revision Surgical History RTKA [facility] Other Summary Purpose Family History No Family [...] and content) DATE CREATED AUTHOR 12/04/2021 [facility] DATE CREATED AUTHOR AUTHOR'S ORGANIZ ATION 01/31/2022 [facility] DATE CREATED AUTHOR AUTHOR'S ORGANIZ ATION 10/25/2022 [facility] DATE CREATED AUTHOR AUTHOR'S ORGANIZ ATION 02/28/2023 [facility] DATE CREATED AUTHOR AUTHOR'S ORGANIZ ATION 06/09/2024 [facility] DATE CREATED AUTHOR AUTHOR'S ORGANIZ ATION 09/22/2024 [facility] REASON FOR VISIT (unrecogniz [...] BE BASED ON THE PRIMARY CLINICAL RECORDS. [facility], [facility]. provides no warranty or guarantee of the accuracy or completeness of information in this document.
== END 2024-09-26 13:40 | disposition home or self-care (01) ==
LOC: WC 13:39
PROVIDERS: PCP Family Medicine; Visit Provider Physician Assistant
DX: L60.3 Nail dystrophy (principal); E11.621 Type 2 diabetes mellitus with foot ulcer; L97.512 Non-pressure chronic ulcer of other part of right foot with fat layer exposed; L97.511 Non-pressure chronic ulcer of other part of right foot limited to breakdown of skin; L97.822 Non-pressure chronic ulcer of other part of left lower leg with fat layer exposed; I87.312 Chronic venous hypertension (idiopathic) with ulcer of left lower extremity; E11.65 Type 2 diabetes mellitus with hyperglycemia
CPT/HCPCS: 11721

== ENCOUNTER 2024-10-03 14:06 | Outpatient (OUT) | payer MEDICARE, SELFPAY | END 2024-10-03 14:07 | disposition home or self-care (01) | LOC: WC 14:07 | PROVIDERS: PCP Family Medicine; Visit Provider Physician Assistant | DX: E11.621 Type 2 diabetes mellitus with foot ulcer (principal); L97.512 Non-pressure chronic ulcer of other part of right foot with fat layer exposed; S90.821A Blister (nonthermal), right foot, initial encounter | CPT/HCPCS: G0463 ==

== ENCOUNTER 2024-10-29 13:32 | Outpatient (OUT) | payer MEDICARE, SELFPAY | END 2024-10-29 13:33 | disposition home or self-care (01) | LOC: WC 13:32 | PROVIDERS: PCP Family Medicine; Visit Provider Physician Assistant | DX: E11.621 Type 2 diabetes mellitus with foot ulcer (principal); L97.512 Non-pressure chronic ulcer of other part of right foot with fat layer exposed; S90.821A Blister (nonthermal), right foot, initial encounter | CPT/HCPCS: G0463 ==

== ENCOUNTER 2024-11-27 13:11 | Outpatient (OUT) | payer MEDICARE, SELFPAY ==
--- OUTSIDE RECORDS SUMMARY | 2023-07-03 10:20 | XMS_ITS ---
Author Organization [facility] Billing Info Address [address] [place] [address] [place] [address] Care Team Providers Care Clinical Reimbursement Specialist Name Role Phone GINNA BARRETO Unavailable [phone] GINNA BARRETO M.D. Unavailable Unavailable Allergies No [...] day Not-Taking Multivitamin Not-Mike ing CO-Q 10 [place]-3 Fish Oil Not-Taking Aspirin 325 MG 1 [...] 07/03/2023 Encounters Encounter Location Date Provider Diagnosis [id number] [address] [place] [address] [id number] 07/03/2023 GINNA BARRETO Lumbosacral spondylosis without myelopathy [...] L5-S1.. Benefit with tramadol. Physical therapy in [place] in summer 2015 and summer 2016. Prior [...] 2021. Possible tendon/ligament injury. Orthopedic evaluation in [place]-recommended against surgery labs from 03/26/2022: Serum creatinine [...] * Richard BOYKINDOB:1940 ([age] yo M)Acc No.[id number]:07/03/2023 PROGRESS NOTE Patient: Richard MATHEWS Provider: Kumar BARRETO MD :1940 A ge:83 Y S ex:Male Date:07/03/2023 C #:[id number] Address:[address] [place] [address] [facility]ur [id number] Subjective: * Chief Complaints: * F ollow-up [...] [facility] * Family History: I n [...] MG Capsule 2 Orally Daily CO-Q 10 [place]-3 Fish Oil Colchicine 0.6 MG Tablet 1 [...] Capsule 2 Orally Daily Not-Taking CO-Q 10 [place]-3 Fish Oil Not- Taking Colchicine 0.6 MG [...] L5-S1.. Benefit with tramadol. Physical therapy in [place] in summer 2015 and summer 2016. Prior [...] 2021. Possible tendon/ligament injury. Orthopedic evaluation in [place]-recommended against surgery 5 . P rimary osteoarthritis [...] visit * Procedure Codes: * Preventive Medicine: [place] PAF (Patient Assessment Form): F all Risk [...] 07/03/2023 Generated for Kristi torres/Stephanie/Jimitting on: 0 11/27/2024 01:18 PM EDT History and Physical Notes * [...]
--- OUTSIDE RECORDS SUMMARY | 2023-08-28 10:20 | XMS_ITS ---
Author Organization [facility] Billing Info Address [address] [place] [address] [place] [address] Care Team Providers Care Director Of Music Name Role Phone GINNA BARRETO Unavailable [phone] GINNA BARRETO M.D. Unavailable Unavailable Allergies No [...] MG 2 Orally Daily Not-Taking CO-Q 10 [place]-3 Fish Oil Not-Taking Fluticasone Propionate Not-Taking Fish [...] Problem Status W/U Status Risk Notes Problem [id number] Carpal tunnel syndrome on left (G56.02) Active confirmed utilizing carpal tunnel bracing at night Vital Signs Height 71 in 08/28/2023 Weight 236.0 lbs 08/28/2023 BMI 32.91 kg/m2 08/28/2023 Blood pressure systolic 115 mm Hg 08/28/19 24 Blood pressure diastolic 73 mm Hg 024 Heart Rate 84 /min 08/28/2023 Respiratory Rate 17 /min 08/28/2023 Oximetry 95 08/28/2023 Encounters Encounter Location Date Provider Diagnosis [id number] [facility] [place] [place] [facility] [address] [place] [address] [id number] 08/28/2023 GINNA BARRETO Lumbosacral spondylosis without myelopathy [...] L5-S1.. Benefit with tramadol. Physical therapy in [place] in summer 2015 and summer 2016. Prior [...] was encouraged to have his providers in [place] check uric acid periodically- Continue to monitor [...] 2021. Possible tendon/ligament injury. Orthopedic evaluation in [place]-recommended against surgery labs from 03/26/2022: Serum creatinine [...] was encouraged to have his providers in [place] check uric acid periodically- Continue to monitor labs on a regular basis to monitor for any drug related toxicity.- Patient will contact me for any questions or concerns prior to scheduled follow-up Next Appt Details Follow Up: upon return to [facility], Reason: arthritis Progress Notes * Richard BOYKINDOB:1940 ([age] yo M)Acc No.[id number]:08/28/2023 PROGRESS NOTE Patient: Richard MATHEWS Provider: Kumar BARRETO MD :1940 A ge:83 Y S ex:Male Date:08/28/2023 C #:[id number] Address:[address] [place] [address] Dr [facility] Subjective: * Chief Complaints: * F ollow-up [...] breast bone 10/2021[facility] 02/27/2023 * Family History: I n [...] tablet Orally every 12 hrs CO-Q 10 [place]-3 Fish Oil Colchicine 0.6 MG Tablet 1 [...] Orally every 12 hrs Not-Taking CO-Q 10 [place]-3 Fish Oil Not-Taking Colchicine 0.6 MG Tablet [...] L5-S1.. Benefit with tramadol. Physical therapy in [place] in summer 2015 and summer 2016. Prior acupuncture treatments-questionable benefit. Benefit with chiropractic treatments and Ultram. Current benefit with physical therapy 3 . C arpal tunnel syndrome on left - G56.02, utilizing carpal tunnel bracing at night 4 . 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 Possible tendon/ligament injury. Orthopedic evaluation in [place]-recommended against surgery 5 . P rimary osteoarthritis [...] care * Procedure Codes: * Preventive Medicine: [place] PAF (Patient Assessment Form): F all Risk [...] * Follow Up: u candis return to [place] (Reason: arthritis) * Care Plan Details* * Sign off status: Completed true * Provider: Kumar BARRETO MD Date: 0 08/28/2023 Generated for Kristi torres/Stephanie/Jimitting on: 0 11/27/2024 01:19 PM EDT History and Physical Notes * [...]
--- OUTSIDE RECORDS SUMMARY | 2024-06-24 09:00 | XMS_ITS ---
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 Assessments Encounter Date Diagnosis (ICD Code) Assessment Notes Treatment Notes Treatment Clinical Notes Section Notes 06/24/2024 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 Dry skin was removed between toes. Nails werer overgrown and thickened. 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 * Family History: N o Family History documented.. * Medications: N one Objective: * Vitals: T emp:97.8F, HR:89/min, Pain scale:01-10, Oxygen sat %:99%. Assessment: * Assessment: 1. D iabetes mellitus with foot ulcer due to multiple causes - E11.621 (Primary) ? Plan: * Treatment: * * Sign off status: Completed Visit Status: C HK (Check Out) true * Provider: Raul Mistry PA-C Date: 0 06/24/2024 Generated for Kristi torres/Stephanie/Jimitting on: 0 11/27/2024 01:18 PM EDT History and Physical Notes * HPI (History of Present Illness) Category Sub-Category Detail Notes Category Not es General Nais 1-10 were trimmed and filed today to his liking. Dry skin was removed between toes. Nails werer overgrown and thickened
--- OUTSIDE RECORDS SUMMARY | 2024-09-23 09:00 | XMS_ITS ---
Author Organization The [facility] in [place] Address [address] [place] [address] Care Team Providers Care Houseman Name Role Phone None, Unknown or Primary Care Provider Unavailab Haritha Hurley Unavailable [phone] REASON FOR VISIT nails lm to cancel ; lm with appt Encounters Encounter Location Date Provider Diagnosis [facility] (PODIATRY) [address] [place] [address] [place] [address] 09/23/2024 Haritha Mistry Plan Of Treatment No Information Progress Notes * Richard BOYKINDOB:1940 ([age] yo M)Acc No.[id number]:09/23/2024 UNLOCKED PROGRESS NOTE Nurse Visit Patient: Richard MATHEWS Provider: Raul Mistry PA-C :1940 A ge:84 Y S ex:Male Date:09/23/2024 Address:[address] [place], [place] [id number] Pcp:Unknown or None Subjective: * Chief Complaints: * 1 . Nails lm to cancel ; lm with appt. * Medical History: Objective: * Vitals: Assessment: Plan: * Treatment: * * Electronic signature of Aundrea Mistry PA-C on 11/27/2024 at 01:18 PM EDT Sign off status: Pending Visit Status: O FF CANC (OFFICE CANCEL) * Provider: Raul Mistry PA-C Date: 0 09/23/2024 Generated for Printi ng/Faisaurag/eTransmitting on: 0 11/27/2024 01:18 PM EDT
--- OUTSIDE RECORDS SUMMARY | 2024-11-27 13:18 | XMS_ITS | Data Portability ---
Author Organization [facility] [employer], [facility] Address [address] [place] [address] Care Team Providers Care Senior Svp Name Role Phone EDGAR RAMOS Primary Care Provider EDGAR RAMOS Referring Provider [phone] Assessment Encounter Date Assessment Date Assessment LastModified by Organization Details LastModified Time 07/27/2023 07/27/2023 Cellulitis foot Not available 07/30/2023 13:49:56 Plan of Treatment Reminders Order Date Submit Date Provider Last Modified By Organization Details Last Modified Time Details Appointments None recorded. Lab HbA1c (hemoglobin A1c), blood 2023 [facility], [address] [place], [address], 4 07:10:35 vitamin D, 25-hydroxy, total, serum 2023 024 [facility], [address] [place], [address], 4 07:10:36 Referral None recorded. Procedures None recorded. Surgeries None recorded. Imaging None recorded. Medication Orders glimepiride 4 mg tablet 2023 024 [facility], [facility] [address], [facility] [address], [place], [place], [id number], 4 17:13:18 Jardiance 25 mg tablet 2023 024 [facility], [address], [address], [place], [place], [id number], 4 17:13:18 Toujeo Max U-300 SoloStar 300 unit/mL (3 mL) subcutaneou s insulin pen 2023 024 [facility], [address], [address], [place], [place], [id number], 4 17:13:18 Jardiance 25 mg tablet 2023 024 [facility], [address], [address], [place], [place], [id number], 4 09:23:33 Toujeo Max U-300 SoloStar 300 unit/mL (3 mL) subcutaneou s insulin pen 2023 024 [email or web address] 146 [facility], [address], [address], [place], [place], [id number], 4 14:21:24 Eliquis 5 mg tablet 2023 024 [facility], [address], [address], [place], [id number], 4 09:23:33 allopurinol 300 mg tablet 2023 024 MARIBELL [facility], [address], [address], [place], [place], [id number], 4 10:03:15 metoprolol tartrate 25 mg tablet 2023 024 [place] [facility], [address], [address], [place], [place], [id number], 4 10:03:12 montelukast 10 mg tablet 2023 024 [place] [facility], [address], [address], [place], [place], [id number], 4 10:03:14 tramadol 50 mg tablet 2023 024 [place] [facility], [address], [address], [place], [id number], 4 10:03:16 Claritin 10 mg tablet 2023 024 [place] [facility], [address], [address], [place], [place], [id number], 4 13:41:06 ropinirole 2 mg tablet 2023 024 [place] [facility], [address], [address], [place], [place], [id number], 4 10:03:13 glimepiride 4 mg tablet 2023 024 [place] [facility], [address], [address], [place], [place], [id number], 4 10:03:13 Jardiance 25 mg tablet 2023 024 [place] [facility], [address], [address], [place], [id number], 4 10:03:08 Touitalo SoloStar U-300 Insulin 300 unit/mL (1.5 mL) subcutaneou s pen 2023 024 [email or web address] 146 [facility], [address], [address], [place], [place], [id number], 4 13:10:11 Eliquis 5 mg tablet 2023 024 [place] [facility], [address], [address], [place], [place], [id number], 4 10:03:09 furosemide 40 mg tablet 2023 024 [place] [facility], [address], [address], [place], [place], [id number], 4 10:03:14 lisinopril 2.5 mg tablet 2023 024 [place] [facility], [address], [address], [place], [place], [id number], 4 10:03:10 lisinopril 10 mg-hydrochl orothiazide 12.5 mg tablet 2023 024 [place] [facility], [address], [address], [place], [id number], 4 13:57:00 pantoprazol e 40 mg tablet,dulce yed release 2023 024 [place] [facility], [address], [address], [place], [place], [id number], 4 10:03:14 levothyroxi ne 50 mcg tablet 2023 024 [place] [facility], [address], [address], [place], [id number], 4 10:03:11 allopurinol 300 mg tablet 2022 023 [facility], [address], [address], [place], [place], [id number], 3 12:59:14 hydrochloro thiazide 12.5 mg tablet 2022 023 [facility], [address], [address], [place], [place], [id number], 4 13:50:31 metoprolol tartrate 25 mg tablet 2022 023 [email or web address] [facility], [address], [address], [place], [place], [id number], 3 12:59:14 montelukast 10 mg tablet 2022 023 [facility], [address], [address], [place], [place], [id number], 3 12:59:14 ropinirole 2 mg tablet 2022 023 [facility], [address], [address], [place], [id number], 3 12:59:14 glimepiride 4 mg tablet 2022 023 [facility], [address], [address], [place], [place], [id number], 3 12:59:14 Jardiance 25 mg tablet 2022 023 [email or web address] [facility], [address], [address], [place], [place], [id number], 3 12:59:14 Toujeo Max U-300 SoloStar 300 unit/mL (3 mL) subcutaneou s insulin pen 2022 023 [email or web address] [facility], [address], [address], [place], [place], [id number], 3 12:59:14 Eliquis 5 mg tablet 2022 023 [facility], [address], [address], [place], [id number], 3 12:59:14 furosemide 40 mg tablet 2022 023 [facility], [address], [place], [place], [id number], 3 12:59:14 levothyroxi ne 50 mcg tablet 2022 023 [facility], [address], [address], [place], [place], [id number], 3 12:59:14 lisinopril 2.5 mg tablet 2022 023 [facility], [address] [place] [address], [address], [place], [place], [id number], 3 12:59:14 Patient TargetsNo targets recorded. Patient Instructions Encounter Date Encounter Id Patient Instructions Last Modified By Organization Details Last Modified Time 06/26/2023 [id number] type 2 diabetes: care instructions Not available 06/27/2023 10:03:04 atrial fibrillation: care instructions Not available 06/27/2023 10:03:05 hypothyroidism: care instructions Not available 06/27/2023 10:03:05 09/07/2023 [id number] type 2 diabetes: care instructions Not available 09/07/2023 09:23:33 04/25/2024 [id number] high cholesterol : care instructions Not available 04/27/2024 13:57:58 Value Based Patient Guide Not available 04/27/2024 13:52:53 Reason for Referral None Reported. Results Created Date Observation Date Name Description Value Unit Range Abnormal Flag Note LastModifiedBy Organization Detail LastModifiedTime 07/07/19 24 07/08/2023 HEMOG LOBIN A1C hemoglobin A1C 11.1 % 4.8-5. 6 above high normal . Predi abete s: 5.7 - 6.4 Diabe susan: >6.4 Glyce karen contr ol for adult s with diabe susan: <7.0 Not Available [facility] ([facility]) [address] [facility], [place], [address], 07/08/2023 07:10:35 07/07/19 24 07/08/2023 VITAM IN D, 25-HY DROXY vitamin D, 25-hydroxy 35.4 NG/mL 30.0-1 00.0 Vitam in D defic iency has been defin ed by the Insti tute of Medic ine and an Endoc rine Socie ty pract ice guide line as a level of serum 25-OH vitam in D less than 20 ng/mL (1,2) . The Endoc rine Socie ty [facility] defin e vitam in D insuf ficie ncy as a level betwe en 21 and 29 ng/mL (2). 1. IOM (Inst itute of Medic ine). 2009. Dieta ry refer ence intak es for calci um and D. Clay hutchinson [place]: [facility] . 2. Nury ayala [place], [place] holder [place], Jessica off-F jf i HANSON, et al. Evalu ation , treat ment, and preve ntion of vitam in D defic iency : an Endoc rine Socie ty clini fernando pract ice guide line. JCEM. 2010; 96(7) :1911 -30. Not Available [facility] ([facility]) [address] [facility], [place], [address], 07/08/2023 07:10:36 Result Notes None recorded. Problems Name Problem SNOMED Code Status Onset Date Resolution Date Notes Provider Name and Address Organization Details Recorded Time Gout 73609789 Active 2021 Not Available [facility] 4 03:27:48 Tinea pedis 2309458 Active 2021 Not Available [facility] 4 03:27:48 Psoriasis 3153027 Active 2021 Not Available [facility] 4 03:27:48 Disorder of thyroid gland 15702852 Active 2021 Not Available [facility] 4 03:27:47 Dizziness 680426079 Active 2021 Not Available [facility] 4 03:27:47 Wound of skin 815150164 Active 2021 Not Available [facility] 4 03:27:47 Atrial fibrillat ion 06080638 Active 2021 Not Available [facility] 4 03:27:48 Thromboph bj 674088412 Active 2021 Not Available [facility] 4 03:27:47 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 427565972 Active 2021 Not Available [facility] 4 03:27:47 Morbid obesity 508094894 Active 2021 Not Available [facility] 4 03:27:47 Periphera l vascular disease 632077327 Active 2021 Not Available [facility] 4 03:27:47 Muscle weakness 06412681 Active 2021 Not Available [facility] 4 03:27:47 Chronic kidney disease stage 3B 491565219 Active 2021 Not Available [facility] 4 03:27:48 Osteoarth ritis 975353657 Active 2021 Not Available [facility] 4 03:27:47 Immunodef iciency disorder 633733302 Active 2022 Not Available [facility] 4 03:27:47 Idiopathi c periphera l neuropath y 66155493 Active 2022 Not Available [facility] 4 03:27:47 Vertigo 185312230 Active 2022 Not Available [facility] 4 03:27:47 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 93693541557 9109 Active 2022 Not Available [facility] 4 03:27:47 Fatigue 32957040 Active 2022 Not Available [facility] 4 03:27:48 Allergic rhinitis 58230301 Active 2023 Not Available [facility] 4 03:27:48 Hypothyro idism 65202131 Active 2023 Not Available [facility] 4 03:27:48 Vitamin D deficienc y 15263029 Active 2023 Not Available [facility] 4 03:27:47 Hyperglyc emia 08126015 Active 2023 Not Available [facility] 4 03:27:48 Heart failure 12367728 Active 2023 Not Available [facility] 4 03:27:48 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 mellitus 29007652691 8 Active 2023 Not Available [facility] 4 03:27:48 Gastroeso phageal reflux disease 352341793 Active 2023 Not Available [facility] 4 03:27:47 Celluliti s of toe of right foot 07988583689 519227 Active 2023 Not Available [facility] 4 03:27:47 Periphera l circulato ry disorder due to type 2 diabetes mellitus 828738292 Active 2023 Not Available [facility] 4 03:27:48 Chronic ulcer of skin of lower leg 57343909025 192733 Active 2023 Edgar Ramos MD [address], [place], [address] , [facility], [facility] 4 13:53:48 Edema of lower extremity 405252325 Active 2023 Edgar Ramos MD [address], [place], [address] , [facility], [facility] 4 13:53:58 Chronic ulcer of ankle 685094417 Active 2023 Edgar Ramos MD [address], [place], [address] , [facility], [facility] 4 13:54:18 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 Active 2023 MD Deisi Krishnamurthy[address], [place], [address] , [facility], [facility] 4 13:54:25 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 259142460 Active 2023 MD Deisi Krishnamurthy[address], [place], [address] , [facility], [facility] 4 13:55:05 Chronic ulcer of foot 743048931 Active 2023 MD Deisi Krishnamurthy[address], [place], [address] , [facility], [facility] 4 13:55:06 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 MD Farzaneh Krishnamurthy [address], [place], [address] , [facility], [facility] 4 13:55:08 Type 2 diabetes mellitus 81407755 Active 2023 MD Farzaneh Krishnamurthy [address], [place], [address] , [facility], [facility] 4 13:55:13 Counselin g Active 2023 MD Deisi Krishnamurthy[address], [place], [address] , [facility], [facility] 4 13:55:17 Hyperlipi demia 59264199 Active 2023 MD Farzaneh Krishnamurthy [address], [place], [address] , [facility], [facility] 4 13:57:52 Type 2 diabetes mellitus 36873870 Completed 201806/20/2019 MD Farzaneh Krishnamurthy [address], [place], [address] , [facility], [facility] 4 13:55:13 Body mass index 40+ - severely obese 469993908 Active 2018 Not Available [facility] 4 03:27:48 Essential hypertens ion 66689168 Active 2018 Not Available [facility] 4 03:27:48 Uncontrol led type 2 diabetes mellitus 641148956 Active 2019 Not Available [facility] 4 03:27:48 Body mass index 30+ - obesity 459819605 Completed 201908/24/2020 Edgar Ramos MD [address], [place], [address] , [facility], [facility] 1 18:32:07 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 187785078 Active 2020 Not Available [facility] 4 03:27:47 Restless legs 11389902 Active 2020 Not Available [facility] 4 03:27:47 Influenza vaccine needed 68394193618 06 Active 2020 Not Available [facility] 4 03:27:47 Diet education Active 2020 Not Available [facility] 4 03:27:47 Obesity 953802847 Active 2020 Not Available [facility] 4 03:27:48 Body mass index 30+ - obesity 041601167 Active 2020 Not Available [facility] 4 03:27:47 Adult health examinati on Active 2020 Not Available [facility] 4 03:27:47 Notes:Some problems listed i n Documents: #[id number], #[id number], #[id number], #[id number] could not be added to this patient's chart. Please review these documents and add these problems to the patient's chart manually as needed. Problem Notes None recorded. Procedures Surgical History Date Name Laterality Status Provider Name and Address Organization Details Recorded Time 06/26/19 24 Quality Functional Assessment completed Tami Adler [facility], [facility] 06/26/2023 12:01:17 06/26/19 24 Quality Medication Reviewed and Updated completed Tami Adler [facility], [facility] 06/26/2023 12:01:17 06/26/19 24 Medicare AWV Questionnaire completed Tami Adler [facility], [facility] 06/26/2023 12:01:25 06/26/19 24 Quality BMI with follow up completed Tami Adler [facility], [facility] 06/26/2023 12:01:17 06/26/19 24 Quality Advanced Care Planning completed Tami Adler [facility], [facility] 06/26/2023 12:01:17 06/26/19 24 Quality Incontinence Screening completed Tami Adler [facility], [facility] 06/26/2023 12:01:17 06/26/19 24 Medicare AWV-Screening Schedule completed Tami Adler [facility], [facility] 06/26/2023 12:01:17 06/26/19 24 Quality Fall Risk Assessment completed Tami Adler [facility], [facility] 06/26/2023 12:01:17 10/11/19 23 Quality Medication Reviewed and Updated completed Jeane Wheatley [facility], [facility] 10/10/2022 15:21:28 10/11/19 23 Quality Pain Screening positive Pain completed Jeane Wheatley [facility], [facility] 10/10/2022 15:23:22 08/19/19 23 Quality Pain Screening No Pain completed Henrik Simmons [facility], [facility] 08/18/2022 07:54:07 08/19/19 23 Quality Medication Reviewed and Updated completed Henrik Simmons [facility], [facility] 08/18/2022 07:54:06 06/24/19 23 Quality Pain Screening No Pain completed Henrik Simmons [facility], [facility] 06/23/2022 13:12:32 06/24/19 23 Quality Medication Reviewed and Updated completed Henrik Simmons [facility], [facility] 06/23/2022 13:12:23 06/24/19 23 Quality Tobacco Non- User [facility], [facility] 06/23/2022 13:12:39 06/24/19 23 ophthalmic examination and evaluation completed Jeane Wheatley [facility], [facility] 06/25/2022 09:18:47 06/15/20 22 Quality Medication Reviewed and Updated completed [facility], [facility] 06/15/2022 12:43:13 06/15/20 22 Quality Pain Screening positive Pain [facility], [facility] 06/15/2022 13:40:36 05/20/20 22 Quality Medication Reviewed and Updated completed [facility], [facility] 05/19/2022 13:02:54 05/20/20 22 Quality Fall Risk Assessment Low Risk [facility], [facility] 05/19/2022 13:02:53 05/20/20 22 Quality Pain Screening positive Pain completed [facility], [facility] 05/20/2022 09:08:34 05/20/20 22 hemoglobin A1c measurement completed [facility], [facility] 06/03/2022 08:37:59 05/20/20 22 urine microalbumin/crea tinine ratio measurement completed [facility], [facility] 06/03/2022 08:39:38 04/20/20 22 Quality Functional Assessment [facility], [facility] 04/20/2022 07:49:52 04/20/20 22 Quality Medication Reviewed and Updated completed [facility], [facility] 04/20/2022 07:49:51 04/20/20 22 Quality Fall Risk Assessment Low Risk [facility], [facility] 04/20/2022 07:50:04 04/20/20 22 Quality Pain Screening positive Pain completed [facility], [facility] 04/20/2022 11:33:31 04/12/20 22 ophthalmic examination and evaluation completed Jeane Wheatley [facility], [facility] 04/23/2022 11:31:52 09/10/19 Quality Functional Assessment completed [facility], [facility] 09/07/2021 19:46:14 09/10/19 Quality Medication Reviewed and Updated completed [facility], [facility] 09/07/2021 19:46:14 09/10/19 Quality (DM or HTN ) BP Systolic < [address] [facility], [facility] 09/07/2021 19:47:39 09/10/19 Quality BMI with follow up completed [facility], [facility] 09/07/2021 19:46:14 09/10/19 Quality Advanced Care Planning completed [facility], [facility] 09/07/2021 19:46:14 09/10/19 Quality Incontinence Screening completed [facility], [facility] 09/07/2021 19:46:14 09/10/19 Medicare AWV - Screening Schedule completed [facility], [facility] 09/07/2021 19:46:14 09/10/19 Quality Fall Risk Assessment completed [facility], [facility] 09/07/2021 19:46:14 08/12/19 Quality Medication Reviewed and Updated completed [facility], [facility] 08/08/2021 15:29:10 08/12/19 Quality (DM or HTN ) BP Systolic < [address] [facility], [facility] 08/08/2021 15:29:08 08/12/19 22 Quality Pain Screening positive Pain completed [facility], [facility] 08/08/2021 15:29:21 07/12/19 diabetic retinopathy screening completed [facility], [facility] 07/13/2021 12:36:37 05/04/20 Quality Functional Assessment completed [facility], [facility] 05/03/2021 10:04:49 05/04/20 21 Quality Medication Reviewed and Updated completed [facility], [facility] 05/03/2021 10:04:49 05/04/20 21 Quality Fall Risk Assessment Low Risk completed [facility], [facility] 05/03/2021 10:04:49 05/04/20 21 Quality BMI with follow up completed [facility], [facility] 05/03/2021 10:04:49 05/04/20 21 Quality Advanced Care Planning completed [facility], [facility] 05/03/2021 10:04:49 05/04/20 21 Quality Incontinence Screening completed [facility], [facility] 05/03/2021 10:04:49 05/04/20 21 Medicare AWV - Screening Schedule completed [facility], [facility] 05/03/2021 10:04:49 04/06/20 21 Quality Functional Assessment completed [facility], [facility] 03/23/2021 19:15:31 04/06/20 21 Quality Medication Reviewed and Updated completed [facility], [facility] 03/23/2021 19:15:31 04/06/20 21 Quality Fall Risk Assessment Low Risk completed [facility], [facility] 03/23/2021 19:15:31 04/06/20 21 Quality BMI with follow up completed [facility], [facility] 03/23/2021 19:15:31 04/06/20 21 Quality Advanced Care Planning completed [facility], [facility] 03/23/2021 19:15:31 04/06/20 21 Quality Incontinence Screening completed [facility], [facility] 03/23/2021 19:15:31 04/06/20 21 Medicare AWV - Screening Schedule completed [facility], [facility] 03/23/2021 19:15:31 08/25/19 21 Quality Functional Assessment completed Shikha Garcia LPN [facility], [facility] 08/24/2020 10:13:58 08/25/19 21 Quality Medication Reviewed and Updated completed Shikha Garcia [facility], [facility] 08/24/2020 10:13:58 08/25/19 21 Quality Fall Risk Assessment Low Risk completed Shikha Garcia [facility] 08/24/2020 10:13:58 08/25/19 21 Quality BMI with follow up completed Shikha Garcia [facility] 08/24/2020 10:13:58 08/25/19 21 Quality Advanced Care Planning completed Shikha Garcia [facility] 08/24/2020 10:13:58 08/25/19 21 Quality Incontinence Screening completed Shikha Garcia [facility] 08/24/2020 10:13:58 08/25/19 21 Medicare AWV - Screening Schedule completed Shikha Garcia [facility] 08/24/2020 10:13:58 03/19/20 19 Knee surgery completed Jeane Wheatley [facility] 04/06/2021 16:08:33 06/19/19 19 colonoscopy completed Edgar Ramso MD [address] [address], [address], [facility] 04/06/2021 18:28:22 06/19/19 09 Joint replacement, other completed Henrik Simmons [facility] 05/19/2022 13:03:33 Imaging Results None recorded. Procedure Notes None recorded. Medical Equipment None Reported. Allergies No known drug allergies Medications Name Sig Start Date Stop Date Status Note LastModified by Organization Details LastModified Time Prescript ion - Clarifica tion active [facility] ann[facility] swan Not Available Not Available Not Available Prescript ion - New 05/04 completed Not Available Not Available Not Available Prescript ion - Prior Authoriza tion Request 05/04 completed [facility] Not Available Not Available Not Available amoxicill in 500 mg capsule 04/25 completed Not Available Not Available Not Available furosemid e 40 mg tablet Take 1 tablet twice a day by oral route for 90 days. active Not Available Not Available No t Available fluticaso ne propionat e 50 mcg/actua tion blister powder for inhalatio n Inhale 2 puffs twice a day by inhalati on route. 04/20 completed Not Available Not Available Not Available atorvasta tin 80 mg tablet Take 1 tablet every day by oral route. 2023 active Not Available Not Available Not Avai lable ropinirol e 1 mg tablet TAKE 1 TABLET BY MOUTH EVERY DAY 06/22 completed Not Available Not Available Not Available aspirin 325 mg tablet Take 1 tablet every day by oral route. 04/20 completed Not Available Not Available Not Available pravastat in 40 mg tablet Take 1 tablet every day by oral route for 30 days. 04/20 completed Not Available Not Available Not Available Claritin 10 mg tablet Take 1 tablet every day by oral route. 04/25 completed Not Available Not Available Not Available doxycycli ne hyclate 50 mg capsule 04/25 completed Not Available Not Available Not Available clindamyc in HCl 150 mg capsule Take 1 capsule every 8 hours by oral route for 12 days. 05/20 completed Not Available Not Available Not Available pioglitaz one 45 mg tablet TAKE 1 TABLET BY MOUTH DAILY 08/18 completed Not Available Not Available Not Available meclizine 12.5 mg tablet Take 1 tablet 3 times a day by oral route for 30 days. 04/20 completed Not Available Not Available Not Available amlodipin e 2.5 mg tablet TAKE 1 TABLET BY MOUTH DAILY 08/18 completed Not Available Not Available Not Available valacyclo vir 500 mg tablet Take 1 tablet every day by oral route for 30 days. 10/10 completed Not Available Not Available Not Available ciproflox acin 500 mg tablet TAKE ONE TABLET BY MOUTH TWICE A DAY 04/25 completed Not Available Not Available Not Available aspirin 81 mg tablet,de layed release Take 1 tablet every day by oral route. active Not Available Not Available No t Available tramadol 50 mg tablet Take 2 tablets 4 times a day by oral route. active Not Available Not Available No t Available triamcino lone acetonide 0.1 % topical cream active Not Available Not Available Not Available levothyro xine 25 mcg tablet TAKE 1 TABLET BY MOUTH DAILY 04/20 completed Not Available Not Available Not Available Diflucan 100 mg tablet Take 1 tablet every day by oral route. 05/04 completed Not Available Not Available Not Available doxycycli ne monohydra te 100 mg capsule TAKE ONE CAPSULE BY MOUTH TWICE A DAY 04/25 completed Not Available Not Available Not Available Tylenol 500 mg tablet Take 1 tablet twice a day by oral route. active Not Available Not Available No t Available levothyro xine 50 mcg tablet Take 1 tablet every day by oral route for 90 days. active Not Available Not Available No t Available Nizoral 2 % shampoo APPLY TO THE AFFECTED AREA(S), LATHER, LEAVE IN PLACE FOR 5 MINUTES, AND THEN RINSE OFF WITH WATER BY TOPICAL ROUTE ONCE DAILY 06/17 completed Not Available Not Available Not Available ropinirol e 2 mg tablet Take 1 tablet twice a day by oral route for 90 days. active Not Available Not Available No t Available pantopraz ole 40 mg tablet,de layed release TAKE 1 TABLET BY MOUTH DAILY BEFORE A MEAL active Not Available Not Available No t Available tobramyci n 0.3 % eye drops active Not Available Not Available No t Available glimepiri de 4 mg tablet Take 1 tablet twice a day by oral route for 90 days. 2023 active Not Available Not Available Not Avai lable monteluka st 10 mg tablet Take 1 tablet every day by oral route for 90 days. active Not Available Not Available No t Available allopurin ol 300 mg tablet TAKE 1 TABLET BY MOUTH DAILY active Not Available Not Available No t Available hydrochlo rothiazid e 25 mg tablet active Not Available Not Available Not Available mupirocin 2 % topical ointment APPLY A SMALL AMOUNT TO THE AFFECTED AREA BY TOPICAL ROUTE 3 TIMES PER DAY OR NEEDED 05/20 completed Not Available Not Available Not Available metoprolo l succinate ER 25 mg tablet,ex tended release 24 hr Take 1 tablet every day by oral route. 06/20 completed Not Available Not Available Not Available lisinopri l 10 mg-hydroc hlorothia zide 12.5 mg tablet Take 1 tablet every day by oral route. 04/25 completed Not Available Not Available Not Available methylpre dnisolone 4 mg tablets in a dose pack active Not Available Not Available Not Available fluticaso ne propionat e 50 mcg/actua tion nasal spray,julio pension active Not Available Not Available Not Available lisinopri l 2.5 mg tablet Take 2 tablets every day by oral route for 90 days. 2023 active Not Available Not Available Not Avai lable doxycycli ne hyclate 100 mg tablet 04/25 completed Not Available Not Available Not Available amoxicill in 500 mg-potass ium clavulana te 125 mg tablet TAKE ONE TABLET BY MOUTH TWICE A DAY 04/25 completed Not Available Not Available Not Available metoprolo l tartrate 25 mg tablet TAKE 1 TABLET BY MOUTH TWICE DAILY active Not Available Not Available No t Available Super Bees chewable tablet Take by oral route. active Not Available Not Available No t Available acetamino phen 1 tab twice daily 04/20 completed 500 Not Available Not Available Not Available coenzyme Q10 1 tab daily 04/20 completed Not Available Not Available Not Available Centrum 1 tab daily 04/20 completed Not Available Not Available Not Available multivita min active Not Available Not Available Not Available Cinnamon 2 caps daily 04/20 completed Not Available Not Available Not Available hydrochlo rothiazid e 12.5 mg tablet Take 1 tablet every day by oral route for 90 days. 04/25 completed Not Available Not Available Not Available Contour Next Test Strips use via misc route qd as dir 04/20 completed Not Available Not Available Not Available Contour Next Test Strips use via misc route bid as dir 06/22 completed Not Available Not Available Not Available Osteo Bi-Flex 250 mg-200 mg tablet Take 1 tablet every day by oral route. 09/09 completed Not Available Not Available Not Available Eliquis 5 mg tablet TAKE ONE-HALF TABLET BY MOUTH TWICE DAILY active Not Available Not Available No t Available salmon oil 1,000 mg-omega- 3 fatty acids 210 mg capsule Take 1 capsule every day by oral route. 04/20 completed Not Available Not Available Not Available Allison-D 07/29 completed Not Available Not Available Not Available Jardiance 10 mg tablet Take 1 tablet every day by oral route. 07/03 completed Not Available Not Available Not Available Jardiance 25 mg tablet Take 1 tablet every day by oral route for 90 days. active Not Available Not Available No t Available Jardiance 4mg 06/20 completed Not Available Not Available Not Available Toujeo SoloStar U-300 Insulin 300 unit/mL (1.5 mL) subcutane ous pen Inject 10 units every day by subcutan eous route as directed . 2023 active Not Available Not Available Not Avai lable Vitamin B12 1 tab daily active Not Available Not Available No t Available Toujeo Max U-300 SoloStar 300 unit/mL (3 mL) subcutane ous insulin pen Inject 10 units every day by subcutan eous route for 90 days. 2023 active Not Available Not Available Not Avai lable Polyspori n 500 unit-10,0 00 unit/gram topical ointment Apply 1 applicat ion every day by topical route as needed. 10/10 completed Not Available Not Available Not Available Vitals Date Recorded Body temperature Respiratory rate Body height Body mass index (BMI) Body weight Heart rate Oxygen saturation Oxygen saturation in Arterial blood by Pulse oximetry Systolic blood pressure Diastolic blood pressure Provider Name and Address Organization Details Last Updated DateTime 4 97.9 [degF] 18 /min 177.8 cm 33.9 kg/m2 245080. 95 g 77 /min 97 % 97 % 138 mm[Hg] 74 mm[Hg] Francesca Yanez [facility], [facility] 4 15:34:17 Date Recorded Body height Body mass index (BMI) Body weight Body temperature Heart rate Respiratory rate Oxygen saturation Oxygen saturation in Arterial blood by Pulse oximetry Systolic blood pressure Diastolic blood pressure Provider Name and Address Organization Details Last Updated DateTime 4 177.8 cm 34 kg/m2 527006. 11 g 97.4 [degF] 40 /min 18 /min 91 % 91 % 152 mm[Hg] 98 mm[Hg] Tami Adler [facility], [facility] 4 10:34:11 Date Recorded Body height Body mass index (BMI) Body weight Body temperature Respiratory rate Heart rate Oxygen saturation Oxygen saturation in Arterial blood by Pulse oximetry Systolic blood pressure Diastolic blood pressure Provider Name and Address Organization Details Last Updated DateTime 4 177.8 cm 33.7 kg/m2 652995. 21 g 97 [degF] 19 /min 70 /min 93 % 93 % 164 mm[Hg] 88 mm[Hg] Tami Adler [facility], [facility] 4 07:52:35 Date Recorded Body height Body mass index (BMI) Body weight Body temperature Heart rate Oxygen saturation Oxygen saturation in Arterial blood by Pulse oximetry Systolic blood pressure Diastolic blood pressure Provider Name and Address Organization Details Last Updated DateTime 3 177.8 cm 34.3 kg/m2 085013. 01 g 97.2 [degF] 77 /min 95 % 95 % 126 mm[Hg] 74 mm[Hg] Jeane Wheatley [facility], [facility] 3 15:23:01 Date Recorded Body height Body mass index (BMI) Body weight Body temperature Heart rate Oxygen saturation Oxygen saturation in Arterial blood by Pulse oximetry Systolic blood pressure Diastolic blood pressure Provider Name and Address Organization Details Last Updated DateTime 4 177.8 cm 32.3 kg/m2 041333. 72 g 98.2 [degF] 79 /min 98 % 98 % 128 mm[Hg] 60 mm[Hg] Lala Flores [facility], [facility] 4 13:28:24 Social History Question Answer Notes LastModified by Organizat ion Details LastModified Time Tobacco Smoking Status Never Smoker Yumi dailey [facility], [facility] 04/17/2019 11:10:25 Do You Have An Advance Directive? Yes [email or web address] Information not available 05/08/2019 Is Your Home Air Conditioned? Yes [email or web address] Information not available 06/26/2023 Are You Currently Sexually Active With Anyone Who Has Traveled (within The Last 12 Weeks) To A Zika-affected Area? No [email or web address] Information not available 06/26/2023 Do You Wear A Helmet When Biking? No [email or web address] Information not available 06/26/2023 Is Blood Transfusion Acceptable In An Emergency? Yes [email or web address] Information not available 09/09/2021 What Is Your Level Of Caffeine Consumption? Occasional Information not available 05/08/2019 In The 14 Days Before Symptom Onset, Have You Had Close Contact With A Laboratory-confi rmed COVID-19 While That Case Was Ill? No [email or web address] Information not available 06/26/2023 In The 14 Days Before Symptom Onset, Have You Had Close Contact With A Person Who Is Under Investigation For COVID-19 While That Person Was Ill? No [email or web address] Information not available 06/26/2023 Have You Been To An Area Known To Be High Risk For COVID-19? No [email or web address] Information not available 06/26/2023 What Type Of Diet Are You Following? DIABETIC [email or web address] Information not available 06/26/2023 Which Illicit Or Recreational Drugs Have You Used? None Information not available 06/20/2019 Have You Processed Blood Or Body Fluids From An Ebola Virus Disease Patient Without Appropriate PPE? No [email or web address] Information not available 06/26/2023 Do You Reside In Or Have You Traveled To An Area Where Ebola Virus Transmission Is Active? No [email or web address] Information not available 06/26/2023 Education 2 Year College Informatio n not available 06/26/2023 Do You Have An Electrostatic Air Filter? No [email or web address] Information not available 06/26/2023 Have There Been Any Changes To Your Family Or Social Situation? No [email or web address] Information not available 06/26/2023 What Is The Fluoride Status Of Your Home? Unknown [email or web address] Information not available 06/26/2023 Are There Any Guns Present In Your Home? No [email or web address] Information not available 06/26/2023 Which Of Your Hands Is Dominant? Right [email or web address] Information not available 06/26/2023 Do You Have A Humidifier? No [email or web address] Information not available 06/26/2023 Where Do You Live? SingleLevelHouse [email or web address] Information not available 06/26/2023 Alcohol Use Less Than 1 Per Month Information not available 04/06/2021 Do You Smoke? No Informatio n not available 04/06/2021 Year Quit Tobacco Use Never Information not available 04/06/2021 Marital Status [email or web address] Informatio n not available 06/26/2023 Do You Have A Medical Power Of Corporate Controller? Yes [email or web address] Information not available 06/26/2023 What Was The Date Of Your Most Recent Tobacco Screening? 06/26/2023 [email or web address] Information not available 06/26/2023 What Is Your Relationship Status? [email or web address] Information not available 05/04/2021 Do You Use Your Seat Belt Or Car Seat Routinely? Yes [email or web address] Information not available 06/26/2023 Are You Sexually Active? No Information not available 08/24/2020 Do You Have Smoke And Carbon Monoxide Detectors In Your Home? Yes [email or web address] Information not available 06/26/2023 Are You Passively Exposed To Smoke? No [email or web address] Information not available 06/26/2023 Are There Any Smokers In Your House? No [email or web address] Information not available 06/26/2023 Do You Use Sunscreen Routinely? No [email or web address] Information not available 06/26/2023 Has Tobacco Cessation Counseling Been Provided? No [email or web address] Information not available 06/26/2023 How Many Years Have You Smoked Tobacco? 0 Information not available 08/24/2020 Do You Have Any Dietary Restrictions? No [email or web address] Information not available 06/26/2023 Sex: Male Functional Status Question Answer Note LastModified by Organizat ion Details LastModified Time Do you use any illicit or recreational drugs? No [email or web address] Information not available 06/26/2023 Do you or have you ever used any other forms of tobacco or nicotine? No [email or web address] Information not available 06/26/2023 What is your level of alcohol consumption? None Information not available 04/17/2019 Do you or have you ever used smokeless tobacco? Never used [email or web address] tobacco Information not available 05/08/2019 Are you currently employed? No [email or web address] Information not available 06/26/2023 Have you been exposed to chemicals or toxins? No [email or web address] Information not available 06/26/2023 Do you have transportation difficulties? No [email or web address] Information not available 06/26/2023 Are you able to care for yourself? Yes [email or web address] Information n ot available 06/26/2023 What is your exercise level? Moderate [email or web address] Information not available 06/26/2023 Mental Status None recorded. Family History Relationship Description Onset Age of this Age Resolved Age Notes LastModified by Organization Details LastModified Time Father Arthritis [email or web address] Not availa ble 05/08/2019 10:42:11 Father Diabetes mellitus [email or web address] Not available 05/08 10:42:11 Medical History Condition Response Cancer (location) N Other N Gout Y Kidney Stones N Measles/Mumps N Sexually Transmitted Disease N Depression N Prostate Problems N Parkinson's N Paralysis N Headaches/Migraines N Cardiac Pacemaker/defibrillator N Arthritis Y Infertility N Crohn's Disease N HIV/AIDS N Stroke/TIA N Kidney Disease N Gallbladder disease N High blood pressure Y Alcohol Overuse N Blood Thinner Treatment N Nervous Breakdown N Burger's Esophagus N Urinary Problems N Gastritis N Back pain Y Rheumatic Fever N Bleeding Disorder N Osteopenia/Osteoporosis N Asthma N Ostomies (location) N Seizures N Jaundice N Hepatitis N Past Reacton to [employer] N Cirrhosis N Chicken Pox N Allergies (other than meds) Y Thyroid Disease N Emphysema/COPD N Vascular Disease N Rash/Skin Condition N Amputation (location) N Nerve Damage / Neuropathy N Sleep disorder/Insomnia N Heart disease / Heart Attack N High Cholesterol N Colon Problems N Serious Injuries N Memory Loss/Alzheimer's N Congestive heart failure N Falls N Hormone Replacement N Anemia N Colon Polyps N Hospitalizations (other than operations) N Diabetes Y Cardiac Arrhythmias /irregular heart rat e N Anxiety/Stress N Vision Problems N Erectile / Sexual Dysfunction N Sleep Apnea N GERD/Ulcer N Immunizations Vaccine Type Date Status Note Provider Nam e and Address Organization Details Recorded Time pneumococcal polysaccharide PPV23 2 completed Not Available [facility] 08/04/2023 03:27:48 Influenza, split virus, trivalent, preservative 5 completed Not Available [facility] 08/04/2023 03:27:48 Influenza, high-dose, trivalent, PF 6 completed Not Available [facility] 08/04/2023 03:27:48 zoster live 1 completed Not Available [facility] 08/04/2023 03:27:48 Influenza, split virus, quadrivalent, preservative 0 completed Not Available [facility] 08/04/2023 03:27:48 COVID-19, mRNA, LNP-S, PF, 100 mcg/0.5mL dose or 50 mcg/0.25mL dose 1 completed Not Available [facility] 08/04/2023 03:27:48 COVID-19, mRNA, LNP-S, PF, 100 mcg/0.5mL dose or 50 mcg/0.25mL dose 1 completed Not Available [facility] 08/04/2023 03:27:48 COVID-19, mRNA, LNP-S, PF, 100 mcg/0.5mL dose or 50 mcg/0.25mL dose 1 completed Not Available [facility] 08/04/2023 03:27:48 Influenza, adjuvanted, quadrivalent, PF 1 completed [facility] 04/06/2021 17:27:33 pneumococcal polysaccharide PPV23 1 completed [facility]ane dailey [facility] 04/09/2021 07:27:56 Past Encounters Encounter ID Performer Location Encounter Start Date Encounter Closed Date Diagnosis/Indication Diagnosis SNOMED-CT Code Diagnosis ICD10 Code Diagnosis Note [id number] Edgar Ramos MD [facility] [place] [address] [place] [address] 04/17/2019 10:35:50 04/17/2019 12:08:28 Body mass index 40+ - severely obese 663072070 Z68.41 weight issues discussed and informatio n on weight loss given. needs follow up on weight control as scheduled. Education handout on diets given. Exercise counseling done. Will arrange referral for dietitian, nutritioni st, Physical/o ccupationa l therapy as needed or desired. Also will consider pharmaceut ical and supplement al interventi ons Morbid obesity 337896682 E66.01 see BMI above for details.. Chronicall y he appears likely [facility] Diet education 98480532 Z71.3 as above Type 2 isaias betes mellitus 42242579 E11.21 This sugar will be watched his levels are good. We are going to cut his Jardiance in half he is going to watch his diet Peripheral vascular disease 428524030 I73.9 His Nizoral shampoo every fifth day I advised him how to do it [id number] Edgar Ramos MD [facility] [place] [address] [place] [address] 05/08/2019 10:24:41 05/08/2019 12:07:03 Essential hypertension 85152795 I10 His blood pressure is stable he is monitoring his pressure Diet education 93665665 Z71.3 as above Body mass index 40+ - severely obese 341966042 Z68.41 weight issues discussed and informatio n on weight loss given. needs follow up on weight control as scheduled. Education handout on diets given. Exercise counseling done. Will arrange referral for dietitian, nutritioni st, Physical/o ccupationa l therapy as needed or desired. Also will consider pharmaceut ical and supplement al interventi ons Morbid obesity 954125049 E66.01 see BMI above for details. Tintaisha pedis [id number] B35. 3 We are going to add Diflucan to his treatment. He does take a little bit of tramadol but not enough to interfere with the Diflucan I did give him 20 days. We should see this patient back within about a month's time he will continue to see his rheumatolo gy Type 2 isaias betes mellitus 04830198 E11.21 This sugar will be watched his levels are good. We are going to cut his Jardiance in half he is going to watch his diet [id number] Edgar Ramos MD [facility] [place] [address] [place] [address] 06/20/2019 14:36:03 06/20/2019 15:36:18 Body mass index 40+ - severely obese 450166267 Z68.41 weight issues discussed and informatio n on weight loss given. needs follow up on weight control as scheduled. Education handout on diets given. Exercise counseling done. Will arrange referral for dietitian, nutritioni st, Physical/o ccupationa l therapy as needed or desired. Also will consider pharmaceut ical and supplement al interventi ons Type 2 isaias betes mellitus 87860580 E11.21 This sugar will be watched his levels are good. We are going to cut his Jardiance in half he is going to watch his diet I want to try to control the diet without getting his sugar too low Tinea pedis [id number] B35. 3 He is going to finish up his Diflucan he will also continue his every 5 or 6 days topical Nizoral treatment Peripheral vascular disease 677176834 I73.9 I am hoping to keep his cholestero l low and also his A1c low have him continue walking hopefully he can bring his weight down little bit Uncontroll ed type 2 diabetes mellitus 095164233 E11.65 His diabetes by itself is uncontroll ed is all over the place of course he does not watch his diet too well Type 2 isaias betes mellitus with peripheral angiopathy 657223644 E11.51 He has comorbidit y of his diabetes and his peripheral vascular disease [id number] MD MARCELINO Krishnamurthy [address] [place] [address] 07/29/2019 15:27:23 07/29/2019 17:20:34 Body mass index 30+ - obesity 116085345 Z68.39 Uncontroll ed type 2 diabetes mellitus 052920664 E11.65 His diabetes by itself is uncontroll ed is all over the place of course he does not watch his diet too well. For now we are going to cut the Jardiance in half hopefully his sugar does not come up too much and at the same time hopefully his A1c is good. His A1c was high in the past because his postprandi al was elevated. I am trying to control his sugar still take care of cost Gout 47126744 M10.9 He is watching gouty foods and he is avoiding nose we did refill his allopurino l today [id number] MD MARCELINO Krishnamurthy [place] [address] [place] [address] 09/04/2019 10:25:58 09/04/2019 12:19:01 Tinea pedis 3533567 B35.3 This patient is still using about every 10 to 12 days a treatment with Nizoral shampoo and is working beautifull y for him. Uncontroll ed type 2 diabetes mellitus 035028940 E11.65 This patient's sugars are dramatical ly better he is running great between 95 and 130. Were to try lab rise little bit higher and cut the Jardiance down to 1/2 tablet of the 10 mg. I will see him in the fall I am extremely pleased with his ownership of disease [id number] Edgar Ramos MD [facility] [place] [address] [place] [address] 05/04/2020 14:36:18 05/04/2020 17:03:23 Essential hypertension 53841205 I10 His blood pressure is stable he is monitoring his pressure blood pressures are acceptable Uncontroll ed type 2 diabetes mellitus 319164562 E11.65 Patient sugars are running pretty much all over the place we need to get an A1c because his last A1c was 8.4 History of total knee arthroplasty 2349692411 105 Z96.659 His knee is actually doing well that is actually the best part of it [id number] Edgar Ramos MD [facility] [place] [address] [place] [address] 06/22/2020 10:24:53 06/22/2020 12:11:26 Essential hypertension 51902505 I10 His blood pressure is stable he is monitoring his pressure blood pressures are acceptable Uncontroll ed type 2 diabetes mellitus [id number] E11.65 Patient sugars are running pretty much all over the place we need to get an A1c because his last A1c was 8.4 Restless legs [id number] G 25.81 Screening for malignant neoplasm of prostate 223799785 Z12.5 [id number] Edgar Ramos MD [facility] [place] [address] [place] [address] 07/03/2020 09:14:07 07/03/2020 10:43:52 Uncontrolled type 2 diabetes mellitus 222531627 E11.65 Patient sugars are running pretty much all over the place we need to get an A1c because his last A1c was 8.4. For now we will get and try to bring his postprandi al sugars down a little better by increasing his Jardiance from 10-25 Restless legs 01132498 G 25.81 We refilled his ropinirole he is taking 2 mg twice daily Renewal of prescription 699049992 Z76.0 He needs a renewal of his medication s today Body mass index 40+ - severely obese 325361163 Z68.41 weight issues discussed and informatio n on weight loss given. needs follow up on weight control as scheduled. Education handout on diets given. Exercise counseling done. Will arrange referral for dietitian, nutritioni st, Physical/o ccupationa l therapy as needed or desired. Also will consider pharmaceut ical and supplement al interventi ons Type 2 isaias betes mellitus with peripheral angiopathy [id number] E11.51 He has comorbidit y of his diabetes and his peripheral vascular disease [id number] MD MARCELINO Krishnamurthy [address] [place] [address] 08/24/2020 09:44:54 08/24/2020 11:11:37 Adult health examination 718742857 Z00.00 Annual Wellness Visit done today Uncontrol ed type 2 diabetes mellitus 470911299 E11.65 Patient sugars are running pretty much all over the place we need to get an A1c because his last A1c was 8.4. For now we will get and try to bring his postprandi al sugars down a little better by increasing his Jardiance from 10-25. 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 We went over his vitamins and his vaccines he is very reliable and does proximal this good preventati ve care Body mass index 30+ - obesity 411442340 Z68.39 weight issues discussed and informatio n on weight loss given. Needs follow up on weight control as scheduled. Education handout on diets given. Exercise counseling done. Will arrange referral for dietitian, nutritioni st, Physical/o ccupationa l therapy as needed or desired. Also will consider pharmaceut ical and supplement al interventi ons bmi 39.1 Obesity 963326790 E66.9 see BMI above for details Diet education 45745612 Z71.3 as above he is weight has not changed he is very stable he does watch what he eats but he just eats more than he should Influenza vaccine needed [id number] 106 Z23 Today we are giving his flu shot to him Essential hypertension 14859587 I10 E78.2 His blood pressure is stable he is monitoring his pressure blood pressures are acceptable his blood pressure is well controlled his medicines include for blood pressure hydrochlor othiazide 12.5. He also takes metoprolol 25 tartrate twice daily [id number] Edgar Ramos MD [facility] [place] [address] [place] [address] 04/08/2021 08:33:32 04/09/2021 11:36:28 Administration of pneumococcal vaccine 99454525 Z23 [id number] Edgar Ramos MD [facility] [place] [address] [place] [address] 05/04/2021 15:10:55 05/04/2021 16:39:46 Adult health examination 224677596 Z00.00 Annual Wellness Visit done today we did go over preventati ve measures vitamins to vaccines and the like Essential hypertension 84951764 I10 E78.2 His blood pressure is 126/84 his blood pressure medicine includes hydrochlor othiazide 12.5 and metoprolol tartrate 25 twice daily Restless legs 70154632 G 25.81 We did give him instructio ns regarding restless leg syndrome Type 2 isaias betes mellitus with peripheral angiopathy 311597808 E11.51 His A1c is still higher than I like but I cannot drive his basal sugar down too much or he will get hypoglycem ic Body mass index 40+ - severely obese 031569421 Z68.41 His BMI has not really changed over time 38.9 BMI he continues to say he is working on the diet but so far has not been with result [id number] Edgar Ramos MD [facility] [place] [address] [place] [address] 06/17/2021 14:50:58 06/17/2021 15:33:36 Uncontrolled type 2 diabetes mellitus 056514787 E11.65 Patient sugars are running pretty much all over the place we need to get an A1c because his last A1c was 8.4. For now we will get and try to bring his postprandi al sugars down a little better by increasing his Jardiance from 10-25. Were going to check his laboratory today. Diabetes is under control Essential hypertension 67909611 I10 E78.2 His blood pressure is 126/84 his blood pressure medicine includes hydrochlor othiazide 12.5 and metoprolol tartrate 25 twice daily blood pressure today 150/78 Diabetic p eripheral neuropathy 268493515 E11.40 Sensations are decreased monofilame nt is positive for both feet of the toes and the forefoot other than that he can feel [id number] Edgar Ramos MD [facility] [place] [address] [place] [address] 08/12/2021 13:26:43 08/12/2021 14:21:28 Disorder of thyroid gland 34600752 E07.9 Patient has hypothyroi dism he takes thyroid medicine. His status is stable we will get a check his T SH and free T4 Psoriasis 9707260 L40.9 Psoriasis is stable at this point he is not changing medicine at all Type 2 isaias betes mellitus 08254199 E11.21 This sugar will be watched his levels are good. We are going to cut his Jardiance in half he is going to watch his diet I want to try to control the diet without getting his sugar too lowThe patient's blood sugar is stable he is running between 110 and 154 his blood sugars which is goodThe status is stable and improving Tinea pedis 9797814 B35. 3 This patient is still using about every 10 to 12 days a treatment with Nizoral shampoo and is working beautifull y for him.. His tinea pedis has stabilized and is doing well Dizziness 202472587 R42 The patient is dizziness status is getting worse he is much more wobbly he does not know the cause of it were going to give him closing Essential hypertension 17711384 I10 E78.2 His blood pressure is 126/84 his blood pressure medicine includes hydrochlor othiazide 12.5 and metoprolol tartrate 25 twice daily blood pressure today Body mass index 30+ - obesity 805675710 Z68.39 weight issues discussed and informatio n on weight loss given. Needs follow up on weight control as scheduled. Education handout on diets given. Exercise counseling done. Will arrange referral for dietitian, nutritioni st, Physical/o ccupationa l therapy as needed or desired. Also will consider pharmaceut ical and supplement al interventi ons Obesity 142231907 E66.9 see BMI above for details Diet education 61829390 Z71.3 as above trial. The patient's blood pressure status is very 140/80. His status is not where it should be I want to add some amlodipine 2.5. His BMI remains elevated his status is unchanged he needs to watch the carbs. His obesity has not changed his BMI is at 39. His diet is stable he has all the wrong things he has not changed too much [id number] Edgar Ramos MD [facility] [place] [address] [place] [address] 09/09/2021 14:17:08 09/09/2021 15:21:43 Disorder of thyroid gland 40347826 E07.9 Patient has hypothyroi dism he takes thyroid medicine. His status is stable we will get a check his T SH and free T4 he has hypothyroi dism and is stable presently he is.. All 25 mcg of Levothroid Type 2 isaias betes mellitus 10583989 E11.21 This sugar will be watched his levels are good. We are going to cut his Jardiance in half he is going to watch his diet I want to try to control the diet without getting his sugar too lowThe patient's blood sugar is stable he is running between 110 and 154 his blood sugars which is goodThe status is stable and improving he said his sugars are running very well in the low 100sHis A1c is still out there little bit but it did come down from 8.8-8.5 I think a little bit of Jardiance with careful watching might help from further apparently his postprandi als the problem Body mass index 30+ - obesity 717592418 Z68.38 weight issues discussed and informatio n on weight loss given. Needs follow up on weight control as scheduled. Education handout on diets given. Exercise counseling done. Will arrange referral for dietitian, nutritioni st, Physical/o ccupationa l therapy as needed or desired. Also will consider pharmaceut ical and supplement al interventi ons asBMI 9 I has not changed start on at present he is 38.9 Obesity 270883986 E66.9 see BMI above for details he is going to try to watch his starches little bit become a little bit of a vegetable eater Diet education 89777608 Z71.3 as above I wish him luck in the diet at I do not want a supplement in with an appetite suppressan t certainly Essential hypertension 68033195 I10 E78.2 His blood pressure is 126/84 his blood pressure medicine includes hydrochlor othiazide 12.5 and metoprolol tartrate 25 twice daily blood pressure today. His blood pressure is stable Dizziness 170584158 R42 The patient is dizziness status is getting worse he is much more wobbly he does not know the cause of it were going to give him closing. 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 We are going to cut his Jardiance in half he is going to watch his diet I want to try to control the diet without getting his sugar too lowThe patient's blood sugar is stable he is running between 110 and 154 his blood sugars which is goodThe status is stable and improving he said his sugars are running very well in the low 100sHis A1c is still out there little bit but it did come down from 8.8-8.5 I think a little bit of Jardiance with careful watching might help from further apparently his postprandi als the problemHis type 2 diabetes is done well his sugars have been. They bounced around when he was sick but better now Wound of skin 155785503 T14.8XXA status is controlled he has a wound that is scant he needs to be seen by home health wound care and physical therapySta brittny is not good right now his wound is open and draining but it does not look purulent too badly Peripheral vascular disease 819271553 I73.9 I am hoping to keep his cholestero l low and also his A1c low have him continue walking hopefully he can bring his weight down little bitHe has had lots of problems with healing in the past and certainly with his wound as it is we need to have him have wound care see himStatus is that is acting up right now plus his immune system is affected as well 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 Needs follow up on weight control as scheduled. Education handout on diets given. Exercise counseling done. Will arrange referral for dietitian, nutritioni st, Physical/o ccupationa l therapy as needed or desired. 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 His blood pressure is stableHe stays on his present medication his blood pressure is 110/68 which is stable and he is doing well Atrial fibrillation 4943 6004 I48.91 He had atrial fibrillati on. He still suffers from takes his anticoagul ation the rate is controlled it is stable [id number] Edgar Ramos MD [facility] [place] [address] [place] [address] 05/20/2022 08:50:08 05/20/2022 09:47:30 Wound of skin 257028499 T14.8XXA His wounds on his leg are improving he is seeing wound management Status is improving wounds are healing Uncontroll ed type 2 diabetes mellitus 263918773 E11.65 Patient sugars are running pretty much all over the place we need to get an A1c because his last A1c was 8.4. For now we will get and try to bring his postprandi al sugars down a little better by increasing his Jardiance from 10-25. Were going to check his laboratory today. Diabetes is under control his weight loss he is done better he has had 27 pound weight lossHis status is of his diabetes is improved Muscle weakness 39141752 M62.81 He has muscle weakness and he needs physical therapy to work with gait strength balance coordinati on and coreStatus is not where it should be right now but withWe are going to set him up with physical therapy as an outpatient as opposed to coming to his home Chronic ki dney disease stage 3B 122059008 N18.32 Patient's creatinine has been elevated slightlyHi s creatinine went from 1.5-2.0 we need to have a stay hydrated we will watch this closelySta brittny has deteriorat ed Type 2 isaias betes mellitus without complication 622677857 E11.9 His A1c went from 8.5-11We will check this in 6 weeks at which point we may need to start insulinI think he would do very well with mounjaroWe will see how the cost works and when he can do [id number] MD MARCELINO Krishnamurthy [address] [place] [address] 06/15/2022 13:33:21 06/15/2022 14:31:55 Wound of skin 313854728 T14.8XXA His wounds on his leg are improving he is seeing wound management Status is improving wounds are healing Osteoarthritis 411332987 M19.90 Uncontroll ed type 2 diabetes mellitus 943176884 E11.65 Patient sugars are running pretty much all over the place we need to get an A1c because his last A1c was 8.4. For now we will get and try to bring his postprandi al sugars down a little better by increasing his Jardiance from 10-25. Were going to check his laboratory today. Diabetes is under control his weight loss he is done better he has had 27 pound weight lossHis status is of his diabetes is improved PT GIVEN TOUJEO SAMPLE (300 UNITS/ML)L OT# [id number]: 03-18-2023 His diabetes is not controlled he is running above 200 fasting it is time to start insulin so I showed him how to do it and his they are going to go on a sliding scale of Toujeo I gave him a box 1 syringe with 300 units that should last somePatien t's diabetic status is not controlled presently but it will be Immunodefi ciency disorder 839111434 D84.81 Due to his diabetes and peripheral vascular disease and age his immune system is fragile and he gets infections more easily also based on history he has been slow to heal and the lower extremitie s because of peripheral vascular disease that is the cause of his immune problem in his legs Morbid obesity 203844017 E66.01 I hope he can continue to lose weightPati ent has morbid obesity he did come down a weight is higher he now is 33.9 it is start Body mass index 30+ - obesity 978235914 Z68.35 weight issues discussed and informatio n on weight loss given. Needs follow up on weight control as scheduled. Education handout on diets given. Exercise counseling done. Will arrange referral for dietitian, nutritioni st, Physical/o ccupationa l therapy as needed or desired. Also will consider pharmaceut ical and supplement al interventi ons asBMI 39 has not changed start on at present he is 38.9His BMI was higher but is come down a little bitBMI is improving he went from 38-33 status is not moving Essential hypertension 04878721 I10 His blood pressure is 126/84 his blood pressure medicine includes hydrochlor othiazide 12.5 and metoprolol tartrate 25 twice daily blood pressure today. His blood pressure is stableHe stays on his present medication his blood pressure is 110/68 which is stable and he is doing wellBlood pressure is 120/80Pres ently he is got to watch what he takes he is on furosemide 40/day and HCTZ 12.5/day and metoprolol 25 1 twice daily of tartrate Thrombophilia 305591842 D68.69 He takes anticoagul ation his blood count is affected little bit by that it is stableIs thrombophi lias because of his blood thinner it is stable [id number] Edgar Ramos MD [facility] [place] [address] [place] [address] 06/24/2022 09:05:01 06/24/2022 10:31:15 Type 2 diabetes mellitus without complication 420453216 E11.9 Patient's sugar is improving slightly he is between 150 and 200Present ly he is on 6 units of Toujeo. It is actually 3 clicks because each click is 2 unitsStatu s is improving Vertigo 632336603 R42 At this point his status of the vertigo is ongoing and not improvedAt this point I would have him try valacyclov ir 500 once a day Idiopathic peripheral neuropathy 66928079 G60.9 With his peripheral neuropathy I think he would do fine to start thiamine B1 500 mgIn the form OF BENFOTIAMI NEHis status is not controlled yetFor physical therapy has helped him Peripheral vascular disease 542694176 I73.9 I am hoping to keep his cholestero l low and also his A1c low have him continue walking hopefully he can bring his weight down little bitHe has had lots of problems with healing in the past and certainly with his wound as it is we need to have him have wound care see himStatus is that is acting up right now plus his immune system is affected as well Morbid obesity 178354907 E66.01 I hope he can continue to lose weightPati ent has morbid obesity he did come down a weight is higher he now is 33.9 it is startHis weight is been coming down I am pleased that he is trying and working out it status is improving 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 8483898914 96687 E11.65 His hyperglyce jamie is improved with the use of his recent insulin Immunodefi ciency disorder 509204672 D84.81 He has immune deficiency disorder we will watch him status is not controlled at the present timeHe will watch for infection particular ly his legs which are slow to heal [id number] MD MARCELINO Krishnamurthy [place] [address] [place] [address] 08/18/2022 09:01:42 08/18/2022 10:05:03 Uncontrolled type 2 diabetes mellitus 545286649 E11.65 His sugars are not controlled at the present time he is still running above 150 fasting most of the time I think he was confused about how to control his sliding scaleSo we went over that again he is watching his diet his weight has come down somewhat about 40 pounds which is quite good Essential hypertension 22360987 I10 Pressure is 128/70 he seems status at this point The lipids will be checked because of his cholestero l and because of his diabetes and his blood pressureHe does monitor his pressure he has no headaches his status is stableHe is taking HCTZ 12.5 once a day as his blood pressure agent. He also takes metoprolol 25 twice daily and is stable without his Fatigue 39457954 R53.83 His fatigue is ongoing I think is from deconditio ron. He may have some prostatiti s a PSA would be appropriat e for that reason even though it seems farfetched is status is stable [id number] MD MARCELINO Krishnamurthy [place] [address] [place] [address] 10/10/2022 14:59:02 10/10/2022 16:32:15 Uncontrolled type 2 diabetes mellitus 521237628 E11.65 His sugars are not controlled at the present time he is still running above 150 fasting most of the time I think he was confused about how to control his sliding scaleSo we went over that again he is watching his diet his weight has come down somewhat about 40 pounds which is quite goodHis status is improved and his weight has come down from [address] to 239 poundsIf he can continue that that would be greatStatu s is improving Restless legs 19158524 G 25.81 We did give him instructio ns regarding restless leg syndromeHi s restless legs are stable they are improving Gout 98811324 M10.9 He needs a renewal of his medication s todayHe has not had any gout gout flareups or problems with gout since he has been on allopurino l.He appears more stable Essential hypertension 19953092 I10 Pressure is 128/70 he seems status at this point The lipids will be checked because of his cholestero l and because of his diabetes and his blood pressureHe does monitor his pressure he has no headaches his status is stableHe is taking HCTZ 12.5 once a day as his blood pressure agent. He also takes metoprolol 25 twice daily and is stable without hisHe monitors his pressure today is 126/74 status of the pressure is improved and stable [id number] Edgar Ramos MD [facility] [place] [address] [place] [address] 06/26/2023 15:00:29 06/26/2023 16:33:28 Hyperglycemia 77243284 R73.9 Sugar is elevated he is stable Vitamin D deficiency 347 15150 E55.9 Vitamin D is stable he has neuropathy is stable Osteoarthritis 772492097 M19.90 Hydrochlor othiazide his arthritis is stable Atrial fibrillation 3553 6004 I48.91 He had atrial fibrillati on. He still suffers from takes his anticoagul ation the rate is controlled it is stablePati ent is status is improved and doing well Chronic ki dney disease stage 3B 850495555 N18.32 Patient's creatinine has been elevated slightlyHi s creatinine went from 1.5-2.0 we need to have a stay hydrated we will watch this closelySta tus has deteriorat edHe has not gotten worse he stays hydrated he is stableHe stays hydrated he was sick had to be [facility] flight[facility] from put in [facility] down to [facility] and then to [place] where he was hospitaliz ed with dehydratio n and electrolyt e imbalance he is now better this was several months agoHis kidney had gotten worse at 2.3 creatinine now which improved we will check it Dizziness 865176643 R42 The patient is dizziness status is getting worse he is much more wobbly he does not know the cause of it were going to give him closing. 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 he did a little better with meclizine but he had some side effects he said which he did not likeHe is stable at the present time but he would benefit by some physical therapy [facility] at present Gout [id number] M10.9 He needs a renewal of his medication s todayHe has not had any gout gout flareups or problems with gout since he has been on allopurino l.He appears more stable Uncontroll ed type 2 diabetes mellitus [id number] E11.65 His sugars are not controlled at the present time he is still running above 150 fasting most of the time I think he was confused about how to control his sliding scaleSo we went over that again he is watching his diet his weight has come down somewhat about 40 pounds which is quite goodHis status is improved and his weight has come down from [address] to 239 poundsIf he can continue that that would be greatStatu s is improving. We will check his A1c Thrombophilia [id number] D68.69 He takes anticoagul ation his blood count is affected little bit by that it is stableIs thrombophi lias because of his blood thinner it is stableHis anticoagul ation is affecting his platelet agglutinin patient status is stable Morbid obesity 359089086 E66.01 I hope he can continue to lose weightPati ent has morbid obesity he did come down a weight is higher he now is 33.9 it is startHis weight is been coming down I am pleased that he is trying and working out it status is improving his weight has come down little bit Idiopathic peripheral neuropathy 20288960 G60.9 With his peripheral neuropathy I think he would do fine to start thiamine B1 500 mgIn the form OF BENFOTIAMI NEHis status is not controlled yetFor physical therapy has helped himHe will continue his vitamin Essential hypertension [id number] I10 Pressure is 128/70 he seems status at this point The lipids will be checked because of his cholestero l and because of his diabetes and his blood pressureHe does monitor his pressure he has no headaches his status is stableHe is taking HCTZ 12.5 once a day as his blood pressure agent. He also takes metoprolol 25 twice daily and is stable without hisHe monitors his pressure today is 126/74 status of the pressure is improved and stable Gastroesop hageal reflux disease [id number] K21.9 His GERD is controlled with pantoprazo le he knows when to take it it is stable Restless legs 61457735 G 25.81 We did give him instructio ns regarding restless leg syndromeHi s restless legs are stable they are improving status is improved and stable Allergic rhinitis 480775 04 J30.9 His allergies are controlled with Claritin and montelukas t Hypothyroidism 90858463 E03.9 He takes his thyroid medicine we will check the TSH it is stable 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 [id number] L40.51 His psoriasis continues but it is stable 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 6194984997 08 E11.22 His kidney function has bounced up is not where it was is not stable yet we will recheck it Immunodefi ciency disorder 249451749 D84.81 His immune deficiency is stable Type 2 isaias betes mellitus with peripheral angiopathy 927577516 E11.51 His peripheral angiopathy is improved Heart failure 27052386 I 50.9 His heart failure has improved his medicines have helped in particular the Jardiance it is stabilized [id number] MD MARCELINO Krishnamurthy [address] [place] [address] 07/27/2023 10:21:43 07/27/2023 11:29:54 Cellulitis of toe of right foot [id number] 7148652 L03.031 His toe looks quite nasty bleeding ulcerated swollen tender poor foot circulatio nHe is going to see podiatry again this weekI think we need to make sure the culture does not show MRSA he very well could have osteomyeli tis starting I think he needs to have an MRI see but podiatry wants to do he sees Dr. Kaufman will check his laboratory and send the results to Dr. Diane his nephrologi st as his last creatinine was elevated Peripheral circulatory disorder due to type 2 diabetes mellitus [id number] E11.51 He has severe peripheral diminished blood flow dorsalis pedis and posterior tibialis both sides is low his diabetes is the cause. His status is getting worse I think he might need an amputation before this is done Peripheral vascular disease 890317701 I73.9 Patient has peripheral vascular disease with decreased dorsalis pedis and posterior tibialisSt atus is getting worse not healing swollen [id number] Edgar Ramos MD [facility] [address] [place] [id number] 09/07/2023 07:43:28 09/07/2023 08:26:05 Chronic kidney disease stage 3B [id number] N18.32 Patient's creatinine has been elevated slightlyHi s creatinine went from 1.5-2.0 we need to have a stay hydrated we will watch this closelyStnoe mart has deteriorat edHe has not gotten worse he stays hydrated he is stableHe stays hydrated he was sick had to be [place] [facility] [place] [facility] down to [facility] and then to [place] where he was hospitaliz ed with dehydratio n and electrolyt e imbalance he is now better this was several months agoHis kidney had gotten worse at 2.3 creatinine now which improved we will check itHis microalbum in is 2400His A1c is 11 Uncontroll ed type 2 diabetes mellitus 177235534 E11.65 His sugars are not controlled at the present time he is still running above 150 fasting most of the time I think he was confused about how to control his sliding scaleSo we went over that again he is watching his diet his weight has come down somewhat about 40 pounds which is quite goodHis status is improved and his weight has come down from [address] to 239 poundsIf he can continue that that would be greatStatu s is improving. We will check his A1cIn my opinion his diabetes remains out of control Atrial fibrillation 4943 6004 I48.91 He had atrial fibrillati on. He still suffers from takes his anticoagul ation the rate is controlled it is stablePati ent is status is improved and doing wellThere is been no change in his A-fib but the rate is controlled [id number] Edgar Ramos MD [facility] [place] [address] [place] [id number] 04/25/2024 13:14:48 04/25/2024 15:07:47 Counseling [id number] Z71.9 Patient received [facility] Value Based Patient Guide today. Uncontroll ed type 2 diabetes mellitus [id number] E11.65 His sugars are not controlled at the present time he is still running above 150 fasting most of the time I think he was confused about how to control his sliding scaleSo we went over that again he is watching his diet his weight has come down somewhat about 40 pounds which is quite goodHis status is improved and his weight has come down from [address] to 239 poundsIf he can continue that that would be greatStatu s is improving. We will check his A1cIn my opinion his diabetes remains out of controlPat ient is stable he is still struggling his sugars are better Type 2 isaias betes mellitus 24844608 E11.69 This sugar will be watched his levels are good. We are going to cut his Jardiance in half he is going to watch his diet I want to try to control the diet without getting his sugar too lowThe patient's blood sugar is stable he is running between 110 and 154 his blood sugars which is goodThe status is stable and improving he said his sugars are running very well in the low 100sHis A1c is still out there little bit but it did come down from 8.8-8.5 I think a little bit of Jardiance with careful watching might help from further apparently his postprandi als the problemHis type 2 diabetes is done well his sugars have been. 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 783524556 I83.013 His varicose veins have improved since he lost weight Chronic ul cer of ankle 888990517 L97.319 He has got chronic ulcer in his ankle which is improving 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 42 9128253 L97.509 His ankle ulcer is healed Chronic ul cer of skin of lower leg 2233602829 0986144 L97.822 Chronic ulcer of foot 42 0272828 L97.511 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 The atheroscle rosis lower extremitie s good Hyperlipidemia 44761794 E78.5 Hyperlipid emia has improved with weight loss Health Concerns Section Related Observation LastModified by Organization Detai ls LastModified Time None Recorded Concern Status LastModified by Organization Details LastModified Time None Recorded Advance Directives Directive Y: Payers Insurance Date Sequence Insurance Name Policy Number Policy Del Toro Covered Member ID Del Toro Member ID Guarantor Name 05/24/2024 2 [employer] (MEDICARE SUPPLEMENT) Richard Black [id number] Richard Black 05/24/2024 1 [place] Richard Black [id number] Richard Black Notes Date Note Type Note Provider Name and Address Organization Details Recorded Time 3 text/html This patient's recent as depicted belowHis A1 C done 1 month ago is at 10.8And actually came down a little bit from the previous 11.3 we need to get him below 8He comes in today with his sugars he has been following a sliding scaleHe is on between 9 and 11 units of Toujeo insulinHe was not as aggressive with his sliding scale as I would like him to beHe understands how to do it and he understands that when he is over 150 to go up 1 unit. He also had the common sense that when he ate too much on a given day he did not raise his insulin because he understands that the sugar went up because he ate something that he should not. He understands that if he takes increased dosing of insulin and then the next day does not eat he will bottom out so he is being careful to guard against hypoglycemiaOverall he is stable still maintaining but I would like him to continue bringing his weight down and continue with his sliding scaleI would love if he had the finances to be on something likeOzempic or Mounjaro this would open with all the parameters especially bringing his weight downHis peripheral vascular insufficiency seems stable at this pointHe is going north this week I have encouraged him to watch his carbs tach and a little bit of a keto diet and also see if he can keep bringing his weight down and adjusting his insulin to get him in the morning sugars somewhere between 120 and 150 Patient is going to be going north fairly soon he is presently taking ToujeoInterestingly he is taking 5 units he thought he was taking twice that because the previous syringe had double concentration it was U200So at the present dose he is taking 5 clicks so I educated him and his about sliding scaleBasically if his sugar is over 150 he will increase his previous day by 1He is probably going to end up around 10 to 12 unitsHe is working on his weightHe has some problems with his leg where he got his legs skinned up to his normal living things and blood little bit it does not appear to be infected at [place] am going to give him TegadermInterestingly he is off of Actos right nowSo I do not see any reason why he cannot control his sugars with insulin like he is doing with the ToujeoWe do need to check his A1c and his microalbumin. He also needs to have his PSA checkedDespite being 82 years young he still functioning quite well and his mind is sharp As described below we just started insulin he is doing better his sugars are between 150 and 200Presently he is taking ToujeoHe is taking about 3 clicks which is 60 unitsWe will go to have him continue inching up his slow sliding scale to try to get his sugar betterThe patient also has some ataxia bothering himHe has some therapy where they are having him look I had and things like that but he has to watch the groundHe also needs a parking permitThe patient has never used valacyclovir nor has he been on BENFOTIAMINEHe seems quite happy that he is taking insulin and things are controlled he is doing well with it The patient's comorbidities and history are depicted belowToday were going over his diabetesIs presently on glimepiride 4 mg/dayHe was on pioglitazone 45 but because of his kidneys and his heart we cannot give him that anymoreRight now we are going to refer the patient for physical therapy because of the stability of his back and walking in his legsThe patient needs needles for insulin I think today it is time to start him on Toujeo I gave him sample of and he will have a prescription for BD 30-gauge 3/8 inch needles of Shaquille fineHe is going to start with 6 unitsThe syringe is gauge that every clinic is 2 unitsHe has a paper with metrics he and his are going to check his sugar every morning and there will be a sliding scale that will be such that if he is above 150 he will go up to 1 click which is 2 units additional each dayWhen he is between 101 50 he will stay where he is and if he should happen to go below 110 he will go down 1 clickHe will see me in follow-up but is time to start insulin Patient comes in to follow-up on his leg he also has been getting physical therapy he has wound management seeing him and there is improvementThe patient is alert cooperative he is lost weightHe has lost 27 pounds his sugars are improving he is feeling betterHe has diabetes type 2 presently he is taking Jardiance 25 pioglitazone 45 and glimepiride 4His sugars are running between 190 and 210 fastingBut they have gotten a lot better since he watches his diet betterHe understands that he has a ways to go and needs to get more diligentI explained we may need to go on insulin and he might get little motivated if he continues to lose more weight we might be okay [facility] with a high fever on 10/23/2021 he was in for 6 daysIt was hard to figure out what happened but they gave him some antibiotic then he was shipped to [facility] in [place] he was there for 4 days while he was there they put in a port and they gave him antibiotics 3 shots a day for 6 daysHe finished that on 12/11/2021Then he went to different places and finally home he has severe swelling he was on HCTZ and with that he had lost 40 to 50 pounds he was all swelled up and he was probably going to and aroundHe then had problems things settle down but he had sepsis was treated today he is better but he looks like he is lost a lot and been through a lot Today he has left leg with redness inflammation swelling and skin irritationHe needs to have wound care see him and he had a home health and he is physical therapyHe needs close follow-upUsually he has a fair amount of pushback however today he is very straightforward and wants to get well and he is willing to work out Mekhi was disappointed overall with the shuffling of the care up in [place] and by Eva as well So he has a lot of comorbidities and loss of vascular problems but he is stable he is trying to live This patient has hypertension he is running higher than I like the blood pressures up to 150 at times I like to see at 10-12 points lowerIs having dyspneaHis dizziness is gone all the time it could be related to age it could be related to senile labyrinthitis it could be proprioceptive problems could be visual problems it could be weight This exam is based please to look at the feet to document what needs to be put on his form for his diabetic shoes. His legs have done fairly well the feet need to issue new shoes because the others are wearing outThis patient's reason for coming in today is to evaluate specifically for his diabetic shoes He has diabetes for a long period of time his feet are affected tremendously So far wearing the shoes has made a difference in his ambulation is better Today is a iknt-ye-tock meeting for that in the office Edgar Ramos MD [address] [address], [place], [address], [facility], [facility] 10/11/2022 08:02:53 4 text/html ANNUAL WELLNESS VISIT QUESTIONNAIRE Has the patient had any change or additions to their Medical Care Team since the last visit? i.e. pharmacy, medical suppliers, doctors Yes What is the Patient's living arrangements? Live with Spouse What type of residence does the Patient live in? Manufactured Home How many stories (floors) to the Patient's residence? Single Story (1 floor) Does the Patient have smoke / CO detectors in the home? Yes Does the Patient use any of the following Respirator Machines? Nebulizer - No Oxygen - No CPAP/BiPAP - No Is the Patient able to afford his/her medications? Yes What type of transportation does the Patient use? I use my own car Has the Patient had a weight change in the past 6 months? No What type of diet the patient is currently following? Diabetic What best describes the Patient's level of Physical activity? Moderate Does the Patient use Tobacco Products? No Has the Patient seen a Dentist in the last 12 months? Yes Does the Patient always use a seat belt routinely? Yes Does the Patient use sunscreen routinely? Yes Does the Patient wear a helmet when riding a bicycle/motorcycle? No Is the Patient sexually active? No How would the patient rate their health compared to others your age? Same How would the patient rate their health today compared to last year? Same Does the Patient have Pain? Yes On a scale of 1-10 (10 is the most severe) describe your degree of discomfort today 7 Is the patient using narcotics/opioids for pain? No Is the patient taking or using any other harmful substances? No How much urinary incontinence does the Patient experience? Mild Does the Patient or people around the Patient have concerns about the Patient's hearing? No Does the Patient or people around the Patient have concerns about the Patient's vision? No Does the Patient use any of the following for mobility assistance? Cane - Yes Crutches - No Walker - Yes Wheelchair/Scooter - No In the past year has the Patient had concerns about balance or walking or feeling unsteady on his/her feet? Yes In the past year has the Patient had a fall? Yes STEADI Fall Risk Assessment I have fallen in the past year. - Yes I use or have been advised to use a cane or walker to get around safely. - Yes Sometimes I feel unsteady when I am walking. - Yes I steady myself by holding onto furniture when walking at home - No I am worried about falling. - No I need to push with my hands to stand up from a chair. - No I have some trouble stepping up onto a curb. - No I often have to ledbetter to the toilet. - Yes I have lost some feeling in my feet. - Yes I take medicine that sometimes makes me feel light-headed or more tired than usual - No I take medicine to help me sleep or improve my mood. - No I often feel sad or depressed. - No Does the Patient's home have any trip hazards like throw rugs or uneven floors? No Does the Patient need assistance with Bathing/Toileting/Eating Bathing/Grooming - No Toileting - No Eating - No Does the Patient or the people around the Patient have concerns about his/her memory? No Does the Patient have an Advance Directive (Living Will)? Yes Colonoscopy Date 12/01/2016 PHQ Score No or Minimal depression, (0). Imported from [employer] on 4Patient has numerous things to go over yesterday reportedHe is going to have surgery with Dr. Barbara KUMARclemente [facility]orporatedNeeds his refill on tramadolHe presently has diabetes he takes glimepiride 4 mg a dayHe also takes Jardiance 25 mg a dayAnd he is on Toujeo right now he is on 19 units his sugars are running between 140 and 190I think he should slight upwards of a little bit may be by several units to bring his fasting sugars between 1 20-1 60He needs a whole bunch of medicines renewed he wants to switch to [facility]I cautioned him about the problems were having with that This patient's recent as depicted belowHis A1 C done 1 month ago is at 10.8And actually came down a little bit from the previous 11.3 we need to get him below 8He comes in today with his sugars he has been following a sliding scaleHe is on between 9 and 11 units of Toujeo insulinHe was not as aggressive with his sliding scale as I would like him to beHe understands how to do it and he understands that when he is over 150 to go up 1 unit. He also had the common sense that when he ate too much on a given day he did not raise his insulin because he understands that the sugar went up because he ate something that he should not. He understands that if he takes increased dosing of insulin and then the next day does not eat he will bottom out so he is being careful to guard against hypoglycemiaOverall he is stable still maintaining but I would like him to continue bringing his weight down and continue with his sliding scaleI would love if he had the finances to be on something likeOzempic or Mounjaro this would open with all the parameters especially bringing his weight downHis peripheral vascular insufficiency seems stable at this pointHe is going north this week I have encouraged him to watch his carbs tach and a little bit of a keto diet and also see if he can keep bringing his weight down and adjusting his insulin to get him in the morning sugars somewhere between 120 and 150 Patient is going to be going north fairly soon he is presently taking ToujeoInterestingly he is taking 5 units he thought he was taking twice that because the previous syringe had double concentration it was U200So at the present dose he is taking 5 clicks so I educated him and his about sliding scaleBasically if his sugar is over 150 he will increase his previous day by 1He is probably going to end up around 10 to 12 unitsHe is working on his weightHe has some problems with his leg where he got his legs skinned up to his normal living things and blood little bit it does not appear to be infected at [place] am going to give him TegadermInterestingly he is off of Actos right nowSo I do not see any reason why he cannot control his sugars with insulin like he is doing with the ToujeoWe do need to check his A1c and his microalbumin. He also needs to have his PSA checkedDespite being 82 years young he still functioning quite well and his mind is sharp As described below we just started insulin he is doing better his sugars are between 150 and 200Presently he is taking ToujeoHe is taking about 3 clicks which is 60 unitsWe will go to have him continue inching up his slow sliding scale to try to get his sugar betterThe patient also has some ataxia bothering himHe has some therapy where they are having him look I had and things like that but he has to watch the groundHe also needs a parking permitThe patient has never used valacyclovir nor has he been on BENFOTIAMINEHe seems quite happy that he is taking insulin and things are controlled he is doing well with it The patient's comorbidities and history are depicted belowToday were going over his diabetesIs presently on glimepiride 4 mg/dayHe was on pioglitazone 45 but because of his kidneys and his heart we cannot give him that anymoreRight now we are going to refer the patient for physical therapy because of the stability of his back and walking in his legsThe patient needs needles for insulin I think today it is time to start him on Toujeo I gave him sample of and he will have a prescription for BD 30-gauge 3/8 inch needles of Shaquille fineHe is going to start with 6 unitsThe syringe is gauge that every clinic is 2 unitsHe has a paper with metrics he and his are going to check his sugar every morning and there will be a sliding scale that will be such that if he is above 150 he will go up to 1 click which is 2 units additional each dayWhen he is between 101 50 he will stay where he is and if he should happen to go below 110 he will go down 1 clickHe will see me in follow-up but is time to start insulin Patient comes in to follow-up on his leg he also has been getting physical therapy he has wound management seeing him and there is improvementThe patient is alert cooperative he is lost weightHe has lost 27 pounds his sugars are improving he is feeling betterHe has diabetes type 2 presently he is taking Jardiance 25 pioglitazone 45 and glimepiride 4His sugars are running between 190 and 210 fastingBut they have gotten a lot better since he watches his diet betterHe understands that he has a ways to go and needs to get more diligentI explained we may need to go on insulin and he might get little motivated if he continues to lose more weight we might be okay [facility] with a high fever on 10/23/2021 he was in for 6 daysIt was hard to figure out what happened but they gave him some antibiotic then he was shipped to [facility] in [place] he was there for 4 days while he was there they put in a port and they gave him antibiotics 3 shots a day for 6 daysHe finished that on 12/11/2021Then he went to different places and finally home he has severe swelling he was on HCTZ and with that he had lost 40 to 50 pounds he was all swelled up and he was probably going to and aroundHe then had problems things settle down but he had sepsis was treated today he is better but he looks like he is lost a lot and been through a lot Today he has left leg with redness inflammation swelling and skin irritationHe needs to have wound care see him and he had a home health and he is physical therapyHe needs close follow-upUsually he has a fair amount of pushback however today he is very straightforward and wants to get well and he is willing to work out atHe was disappointed overall with the shuffling of the care up in [place] and [facility] as well So he has a lot of comorbidities and loss of vascular problems but he is stable he is trying to live This patient has hypertension he is running higher than I like the blood pressures up to 150 at times I like to see at 10-12 points lowerIs having dyspneaHis dizziness is gone all the time it could be related to age it could be related to senile labyrinthitis it could be proprioceptive problems could be visual problems it could be weight This exam is based please to look at the feet to document what needs to be put on his form for his diabetic shoes. His legs have done fairly well the feet need to issue new shoes because the others are wearing outThis patient's reason for coming in today is to evaluate specifically for his diabetic shoes He has diabetes for a long period of time his feet are affected tremendously So far wearing the shoes has made a difference in his ambulation is better Today is a heic-us-tsln meeting for that in the office Edgar Ramos MD [address] [address], [place], [address], [facility] 06/27/2023 10:03:14 4 text/html The patient sees podiatry dr Caldwell foots of the patient is in trouble his third digit on the right side to me looks like it is getting infected he could have osteomyelitis about a third way up the distance of the digit is swollen purulentThere is some bleedingI do not know if there is MRSA or whether there is osteomyelitisHe sees Dr. Diane for hisHe needs his laboratory doneWe need to send him to his nephrologistHe is going to see podiatry soon I need to find out if he is thinking about doing an MRI or something I have a feeling he could have osteomyelitis he may need to have the third digit taken off that would save a lot of troublesIt also might prevent spreading of this higher up into his footI told him that an amputation of the toe is a lot different than going up in the metatarsal area [facility]eds his refill on tramadolHe presently has diabetes he takes glimepiride 4 mg a dayHe also takes Jardiance 25 mg a dayAnd he is on Toujeo right now he is on 19 units his sugars are running between 140 and 190I think he should slight upwards of a little bit may be by several units to bring his fasting sugars between 1 20-1 60He needs a whole bunch of medicines renewed he wants to [facility] to [facility]I cautioned him about the problems were having with that This patient's recent as depicted belowHis A1 C done 1 month ago is at 10.8And actually came down a little bit from the previous 11.3 we need to get him below 8He comes in today with his sugars he has been following a sliding scaleHe is on between 9 and 11 units of Toujeo insulinHe was not as aggressive with his sliding scale as I would like him to beHe understands how to do it and he understands that when he is over 150 to go up 1 unit. He also had the common sense that when he ate too much on a given day he did not raise his insulin because he understands that the sugar went up because he ate something that he should not. He understands that if he takes increased dosing of insulin and then the next day does not eat he will bottom out so he is being careful to guard against hypoglycemiaOverall he is stable still maintaining but I would like him to continue bringing his weight down and continue with his sliding scaleI would love if he had the finances to be on something likeOzempic or Mounjaro this would open with all the parameters especially bringing his weight downHis peripheral vascular insufficiency seems stable at this pointHe is going north this week I have encouraged him to watch his carbs tach and a little bit of a keto diet and also see if he can keep bringing his weight down and adjusting his insulin to get him in the morning sugars somewhere between 120 and 150 Patient is going to be going north fairly soon he is presently taking ToujeoInterestingly he is taking 5 units he thought he was taking twice that because the previous syringe had double concentration it was U200So at the present dose he is taking 5 clicks so I educated him and his about sliding scaleBasically if his sugar is over 150 he will increase his previous day by 1He is probably going to end up around 10 to 12 unitsHe is working on his weightHe has some problems with his leg where he got his legs skinned up to his normal living things and blood little bit it does not appear to be infected at Edilma am going to give him TegadermInterestingly he is off of Actos right nowSo I do not see any reason why he cannot control his sugars with insulin like he is doing with the ToujeoWe do need to check his A1c and his microalbumin. He also needs to have his PSA checkedDespite being 82 years young he still functioning quite well and his mind is sharp As described below we just started insulin he is doing better his sugars are between 150 and 200Presently he is taking ToujeoHe is taking about 3 clicks which is 60 unitsWe will go to have him continue inching up his slow sliding scale to try to get his sugar betterThe patient also has some ataxia bothering himHe has some therapy where they are having him look I had and things like that but he has to watch the groundHe also needs a parking permitThe patient has never used valacyclovir nor has he been on BENFOTIAMINEHe seems quite happy that he is taking insulin and things are controlled he is doing well with it The patient's comorbidities and history are depicted belowToday were going over his diabetesIs presently on glimepiride 4 mg/dayHe was on pioglitazone 45 but because of his kidneys and his heart we cannot give him that anymoreRight now we are going to refer the patient for physical therapy because of the stability of his back and walking in his legsThe patient needs needles for insulin I think today it is time to start him on Toujeo I gave him sample of and he will have a prescription for BD 30-gauge 3/8 inch needles of Shaquille fineHe is going to start with 6 unitsThe syringe is gauge that every clinic is 2 unitsHe has a paper with metrics he and his are going to check his sugar every morning and there will be a sliding scale that will be such that if he is above 150 he will go up to 1 click which is 2 units additional each dayWhen he is between 101 50 he will stay where he is and if he should happen to go below 110 he will go down 1 clickHe will see me in follow-up but is time to start insulin Patient comes in to follow-up on his leg he also has been getting physical therapy he has wound management seeing him and there is improvementThe patient is alert cooperative he is lost weightHe has lost 27 pounds his sugars are improving he is feeling betterHe has diabetes type 2 presently he is taking Jardiance 25 pioglitazone 45 and glimepiride 4His sugars are running between 190 and 210 fastingBut they have gotten a lot better since he watches his diet betterHe understands that he has a ways to go and needs to get more diligentI explained we may need to go on insulin and he might get little motivated if he continues to lose more weight we might be okay [facility] hospital with a high fever on 10/23/2021 he was in for 6 daysIt was hard to figure out what happened but they gave him some antibiotic then he was shipped to [facility] in [place] he was there for 4 days while he was there they put in a port and they gave him antibiotics 3 shots a day for 6 daysHe finished that on 12/11/2021Then he went to different places and finally home he has severe swelling he was on HCTZ and with that he had lost 40 to 50 pounds he was all swelled up and he was probably going to and aroundHe then had problems things settle down but he had sepsis was treated today he is better but he looks like he is lost a lot and been through a lot Today he has left leg with redness inflammation swelling and skin irritationHe needs to have wound care see him and he had a home health and he is physical therapyHe needs close follow-upUsually he has a fair amount of pushback however today he is very straightforward and wants to get well and he is willing to work out atHe was disappointed overall with the shuffling of the care up in [place] and by Eva as well So he has a lot of comorbidities and loss of vascular problems but he is stable he is trying to live This patient has hypertension he is running higher than I like the blood pressures up to 150 at times I like to see at 10-12 points lowerIs having dyspneaHis dizziness is gone all the time it could be related to age it could be related to senile labyrinthitis it could be proprioceptive problems could be visual problems it could be weight This exam is based please to look at the feet to document what needs to be put on his form for his diabetic shoes. His legs have done fairly well the feet need to issue new shoes because the others are wearing outThis patient's reason for coming in today is to evaluate specifically for his diabetic shoes He has diabetes for a long period of time his feet are affected tremendously So far wearing the shoes has made a difference in his ambulation is better Today is a gvlv-[id number] meeting for that in the office Edgar Ramos MD [address] [address], [place], [address], [facility], [facility] 07/30/2023 13:54:29 4 text/html Patient comes in today to report to me that he is going north next Monday for the summer he will be back in AprilHe has been going back and forth about 30 yearsHis toe on the right foot has improved quite a lotIt is a long allen he is always had trouble with his feet and circulationsHe has had staph infections in his feet he has had [place]He is taking Toujeo at 20 units/dayHe also takes JardianceHe has significant proteinuria of 2400His last A1c was 11Apparently his postprandial numbers are highSince she is going north we will have him get his blood workup thereHis last blood work here was only done in JuneHe has always had high numbers and he has always had high weightHis weight has come down almost 50 poundsOf course he is taking Jardiance which helps to make glycosuria spill more sugarHe also has elevation of his postprandial sugars apparently and so between both the Jardiance and the regular glycosuria he is spilling a lot of calories that is why he is losing weightHis toe has improved a little bitHe tells me he thinks he has been mismanaged medicallyHe gave me the impression that had he received stitches in his toe earlier he would be okayI tried to explain to him that you do not close a wound that is infectedYou would only even think about it if the wound is cleaned up totally and then you could consider secondary closureUnfortunately Mr. Sheppard does not realize or does not want to realize that his lifestyle weight and relatively poor compliance over the years has contributed to his present diseaseHe is not alone this happens with many people The patient sees podiatry dr Caldwell foots of the patient is in trouble his third digit on the right side to me looks like it is getting infected he could have osteomyelitis about a third way up the distance of the digit is swollen purulentThere is some bleedingI do not know if there is MRSA or whether there is osteomyelitisHe sees Dr. Diane for hisHe needs his laboratory doneWe need to send him to his nephrologistHe is going to see podiatry soon I need to find out if he is thinking about doing an MRI or something I have a feeling he could have osteomyelitis he may need to have the third digit taken off that would save a lot of troublesIt also might prevent spreading of this higher up into his footI told him that an amputation of the toe is a lot different than going up in the metatarsal area He [facility]orporatedNeeds his refill on tramadolHe presently has diabetes he takes glimepiride 4 mg a dayHe also takes Jardiance 25 mg a dayAnd he is on Toujeo right now he is on 19 units his sugars are running between 140 and 190I think he should slight upwards of a little bit may be by several units to bring his fasting sugars between 1 20-1 60He needs a whole bunch of medicines renewed he wants to switch to [facility]I cautioned him about the problems were having with that This patient's recent as depicted belowHis A1 C done 1 month ago is at 10.8And actually came down a little bit from the previous 11.3 we need to get him below 8He comes in today with his sugars he has been following a sliding scaleHe is on between 9 and 11 units of Toujeo insulinHe was not as aggressive with his sliding scale as I would like him to beHe understands how to do it and he understands that when he is over 150 to go up 1 unit. He also had the common sense that when he ate too much on a given day he did not raise his insulin because he understands that the sugar went up because he ate something that he should not. He understands that if he takes increased dosing of insulin and then the next day does not eat he will bottom out so he is being careful to guard against hypoglycemiaOverall he is stable still maintaining but I would like him to continue bringing his weight down and continue with his sliding scaleI would love if he had the finances to be on something likeOzempic or Mounjaro this would open with all the parameters especially bringing his weight downHis peripheral vascular insufficiency seems stable at this pointHe is going north this week I have encouraged him to watch his carbs tach and a little bit of a keto diet and also see if he can keep bringing his weight down and adjusting his insulin to get him in the morning sugars somewhere between 120 and 150 As described below we just started insulin he is doing better his sugars are between 150 and 200Presently he is taking ToujeoHe is taking about 3 clicks which is 60 unitsWe will go to have him continue inching up his slow sliding scale to try to get his sugar betterThe patient also has some ataxia bothering himHe has some therapy where they are having him look I had and things like that but he has to watch the groundHe also needs a parking permitThe patient has never used valacyclovir nor has he been on BENFOTIAMINEHe seems quite happy that he is taking insulin and things are controlled he is doing well with it The patient's comorbidities and history are depicted belowToday were going over his diabetesIs presently on glimepiride 4 mg/dayHe was on pioglitazone 45 but because of his kidneys and his heart we cannot give him that anymoreRight now we are going to refer the patient for physical therapy because of the stability of his back and walking in his legsThe patient needs needles for insulin I think today it is time to start him on Toujeo I gave him sample of and he will have a prescription for BD 30-gauge 3/8 inch needles of Shaquille fineHe is going to start with 6 unitsThe syringe is gauge that every clinic is 2 unitsHe has a paper with metrics he and his are going to check his sugar every morning and there will be a sliding scale that will be such that if he is above 150 he will go up to 1 click which is 2 units additional each dayWhen he is between 101 50 he will stay where he is and if he should happen to go below 110 he will go down 1 clickHe will see me in follow-up but is time to start insulin Patient comes in to follow-up on his leg he also has been getting physical therapy he has wound management seeing him and there is improvementThe patient is alert cooperative he is lost weightHe has lost 27 pounds his sugars are improving he is feeling betterHe has diabetes type 2 presently he is taking Jardiance 25 pioglitazone 45 and glimepiride 4His sugars are running between 190 and 210 fastingBut they have gotten a lot better since he watches his diet betterHe understands that he has a ways to go and needs to get more diligentI explained we may need to go on insulin and he might get little motivated if he continues to lose more weight we might be okay [facility] with a high fever on 10/23/2021 he was in for 6 daysIt was hard to figure out what happened but they gave him some antibiotic then he was shipped to [facility] in [place] he was there for 4 days while he was there they put in a port and they gave him antibiotics 3 shots a day for 6 daysHe finished that on 12/11/2021Then he went to different places and finally home he has severe swelling he was on HCTZ and with that he had lost 40 to 50 pounds he was all swelled up and he was probably going to and aroundHe then had problems things settle down but he had sepsis was treated today he is better but he looks like he is lost a lot and been through a lot Today he has left leg with redness inflammation swelling and skin irritationHe needs to have wound care see him and he had a home health and he is physical therapyHe needs close follow-upUsually he has a fair amount of pushback however today he is very straightforward and wants to get well and he is willing to work out atHe was disappointed overall with the shuffling of the care up in [place] and by Eva as well So he has a lot of comorbidities and loss of vascular problems but he is stable he is trying to live This patient has hypertension he is running higher than I like the blood pressures up to 150 at times I like to see at 10-12 points lowerIs having dyspneaHis dizziness is gone all the time it could be related to age it could be related to senile labyrinthitis it could be proprioceptive problems could be visual problems it could be weight This exam is based please to look at the feet to document what needs to be put on his form for his diabetic shoes. His legs have done fairly well the feet need to issue new shoes because the others are wearing outThis patient's reason for coming in today is to evaluate specifically for his diabetic shoes He has diabetes for a long period of time his feet are affected tremendously So far wearing the shoes has made a difference in his ambulation is better Today is a rujr-qi-[id number] meeting for that in the office Edgar Ramos MD [address], [place], [address], [facility], [facility] 09/07/2023 09:02:11 4 text/html It is a long allen he is always had trouble with his feet and circulationsHe has had staph infections in his feet he has had infections [place]He is taking Toujeo at 20 units/dayHe also takes JardianceHe has significant proteinuria of 2400His last A1c was 11Apparently his postprandial numbers are highSince she is going north we will have him get his blood workup thereHis last blood work here was only done in JuneHe has always had high numbers and he has always had high weightHis weight has come down almost 50 poundsOf course he is taking Jardiance which helps to make glycosuria spill more sugarHe also has elevation of his postprandial sugars apparently and so between both the Jardiance and the regular glycosuria he is spilling a lot of calories that is why he is losing weightHis toe has improved a little bitHe tells me he thinks he has been mismanaged medicallyHe gave me the impression that had he received stitches in his toe earlier he would be okayI tried to explain to him that you do not close a wound that is infectedYou would only even think about it if the wound is cleaned up totally and then you could consider secondary closureUnfortunately Mr. Sheppard does not realize or does not want to realize that his lifestyle weight and relatively poor compliance over the years has contributed to his present diseaseHe is not alone this happens with many people This patient came down [facility] he came down to his manufactured home being practically destroyed they are leaving town going back up north this is her last visitHis had a CVA with aphasia he has a josee 3 presently he is taking glimepiride 4 mg twice daily he Jardiance 25/day and he takes Toujeo but rather than taking it daily he takes split dose 20 2 in the AM and 15 in the PM he has lost a bunch of weight and looks much better than he did before the Jardiance has helped him lose weight because he is spilling a lot of sugar out is got lots of comorbidities as wellSome getting his paperwork done for him dictation done so that when he goes north his new doctor has all the information This patient's recent as depicted belowHis A1 C done 1 month ago is at 10.8And actually came down a little bit from the previous 11.3 we need to get him below 8He comes in today with his sugars he has been following a sliding scaleHe is on between 9 and 11 units of Toujeo insulinHe was not as aggressive with his sliding scale as I would like him to beHe understands how to do it and he understands that when he is over 150 to go up 1 unit. He also had the common sense that when he ate too much on a given day he did not raise his insulin because he understands that the sugar went up because he ate something that he should not. He understands that if he takes increased dosing of insulin and then the next day does not eat he will bottom out so he is being careful to guard against hypoglycemiaOverall he is stable still maintaining but I would like him to continue bringing his weight down and continue with his sliding scaleI would love if he had the finances to be on something likeOzempic or Mounjaro this would open with all the parameters especially bringing his weight downHis peripheral vascular insufficiency seems stable at this pointHe is going [place] week I have encouraged him to watch his carbs tach and a little bit of a keto diet and also see if he can keep bringing his weight down and adjusting his insulin to get him in the morning sugars somewhere between 120 and 150 The patient's comorbidities and history are depicted belowToday were going over his diabetesIs presently on glimepiride 4 mg/dayHe was on pioglitazone 45 but because of his kidneys and his heart we cannot give him that anymoreRight now we are going to refer the patient for physical therapy because of the stability of his back and walking in his legsThe patient needs needles for insulin I think today it is time to start him on Toujeo I gave him sample of and he will have a prescription for BD 30-gauge 3/8 inch needles of Shaquille fineHe is going to start with 6 unitsThe syringe is gauge that every clinic is 2 unitsHe has a paper with metrics he and his are going to check his sugar every morning and there will be a sliding scale that will be such that if he is above 150 he will go up to 1 click which is 2 units additional each dayWhen he is between 101 50 he will stay where he is and if he should happen to go below 110 he will go down 1 clickHe will see me in follow-up but is time to start insulin [facility] with a high fever on 10/23/2021 he was in for 6 daysIt was hard to figure out what happened but they gave him some antibiotic then he was shipped to [facility] in [place] he was there for 4 days while he was there they put in a port and they gave him antibiotics 3 shots a day for 6 daysHe finished that on 12/11/2021Then he went to different places and finally home he has severe swelling he was on HCTZ and with that he had lost 40 to 50 pounds he was all swelled up and he was probably going to and aroundHe then had problems things settle down but he had sepsis was treated today he is better but he looks like he is lost a lot and been through a lot Today he has left leg with redness inflammation swelling and skin irritationHe needs to have wound care see him and he had a home health and he is physical therapyHe needs close follow-upUsually he has a fair amount of pushback however today he is very straightforward and wants to get well and he is willing to work out atHe was disappointed overall with the shuffling of the care up in [place] and by Eva as well So he has a lot of comorbidities and loss of vascular problems but he is stable he is trying to live This patient has hypertension he is running higher than I like the blood pressures up to 150 at times I like to see at 10-12 points lowerIs having dyspneaHis dizziness is gone all the time it could be related to age it could be related to senile labyrinthitis it could be proprioceptive problems could be visual problems it could be weight This exam is based please to look at the feet to document what needs to be put on his form for his diabetic shoes. 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
--- OUTSIDE RECORDS SUMMARY | 2024-11-27 13:19 | XMS_ITS | Continuity of Care Document ---
Author Organization [facility] Address [address] [address] [place] [address] Phone [phone] Care Team Providers Care Residential Leasing Manager Name Role Phone . DOCTOR FORMS, COPIES INTEREST Care Team Inform ation Workforce Management Consultant Unavailable
--- OUTSIDE RECORDS SUMMARY | 2024-11-27 13:19 | XMS_ITS | Clinical Summary ---
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 Active pantoprazole (PROTONIX) 40 mg EC tablet Take 1 tablet (40 mg total) by mouth in the morning. Active acetaminophen (TYLENOL EXTRA STRENGTH) 500 mg tablet Take 650 mg by mouth every 8 (eight) hours. Active traMADol ER (ULTRAM-ER) 300 MG 24 hr tablet Take 50 mg by mouth in the morning and at bedtime. 1-2 by mouth four times a day as needed Active rOPINIRole (REQUIP) 2 mg tablet Take 1 tablet (2 mg total) by mouth nightly. Active apixaban (ELIQUIS) 2.5 mg tabletIndications:p revent thromboembolism in chronic atrial fibrillation Take 1 tablet (2.5 mg total) by mouth in the morning and 1 tablet (2.5 mg total) before bedtime. Indications: treatment to prevent blood clots in chronic atrial fibrillation. Active metoprolol tartrate (LOPRESSOR) 25 mg tablet Take 1 tablet (25 mg total) by mouth in the morning and 1 tablet (25 mg total) before bedtime. Active tamsulosin (FLOMAX) 0.4 mg capsule Take 1 capsule (0.4 mg total) by mouth in the morning. Active furosemide (LASIX) 40 mg tablet Take 1 tablet (40 mg total) by mouth daily. Morning Active atorvastatin (LIPITOR) 80 mg tablet Take 1 tablet (80 mg total) by mouth in the morning. Active allopurinoL (ZYLOPRIM) 300 mg tablet Take 1 tablet (300 mg total) by mouth in the morning. Active glimepiride (AMARYL) 4 mg tablet Take 1 tablet (4 mg total) by mouth in the morning and at bedtime. Active aspirin 81 mg chewable tablet Chew 1 tablet (81 mg total) and swallow in the morning. Active empagliflozin (JARDIANCE) 25 mg tablet tablet Take 1 tablet (25 mg total) by mouth in the morning. Active loratadine (CLARITIN) 10 mg tablet Take 1 tablet (10 mg total) by mouth daily as needed for allergies. Active cvabtxga-zxif-DL-ca lcium &mins (THERAGRAN-M) 9 mg iron-400 mcg tablet Take 1 tablet by mouth in the morning. Active TOUJEO SOLOSTAR U-300 INSULIN 300 unit/mL (1.5 mL) insulin pen Inject under the skin nightly. Active montelukast (SINGULAIR) 10 mg tablet Take 1 tablet (10 mg total) by mouth in the morning. Active fluticasone propionate (FLONASE) 50 mcg/actuation nasal spray Administer 1 spray into each nostril in the morning. Active triamcinolone (KENALOG) 0.1 % cream Apply 1 Application topically in the morning and 1 Application before bedtime. Active tobramycin (TOBREX) 0.3 % drops 1 drop every 4 (four) hours while awake. Active cefazolin sodium/water (ceFAZolin in sterile water) 1 gram/10 mL syringe Infuse into a venous catheter. Active methylPREDNISolone (MEDROL, PACO,) 4 mg tablet Take 1 tablet (4 mg total) by mouth in the morning and 1 tablet (4 mg total) before bedtime. follow package directions. 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 Initially he was reluctant to have evaluation and management of his multilevel occlusive disease in the right lower extremity. Eventually he agreed to further workup. We will do Right Lower extremity And iliac arterial duplex ultrasound because he has CKD with elevated creatinine. In the meanwhile continue aspirin 81 mg atorvastatin 80 mg and low-dose Eliquis. 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 (CMS-HCC) (Primary Dx); Iliac artery stenosis, right; Atherosclerosis of aorta 10/10/2024 Travel from Last 3 Months Immunizations Immunization Administration Dates Next Due Tdap 02/27/2023 Social History Tobacco Use Types Packs/Day Years Used Date Smoking Tobacco: Former Cigarettes Cigars Quit: 1989 Smokeless Tobacco: Never Tobacco Cessation:Counseling Given: Not Answered Alcohol Use Standard Drinks/Week Comments Not Currently 0 (1 standard drink = 0.6 oz pur e alcohol) Hunger Screening Answer Date Recorded Within the past 12 months we worried whether our food would run out before we got money to buy more. Never True 10/10/2024 Within the past 12 months th e food we bought just didn't last and we didn't have money to get more. Never True 10/10/2024 Sex and Gender Information Value Date Recorded Sex Assigned at Not on file Legal Sex Male 12:18 PM EDT Gender Identity Not on file Sexual Orientation Not on file Last Filed Vital Signs Vital Sign Reading Time Taken Comments Blood Pressure 124/68 10/10/2024 9:00 AM EDT Pulse 68 10/10/2024 9:00 AM EDT Temperature 36.7 C (98.1 F) 10/10/2024 9:00 AM EDT Respiratory Rate 17 02/28/2023 7:28 AM EDT Oxygen Saturation 97% 10/10/2024 9:00 AM EDT Inhaled Oxygen Concentration - - Weight 102.1 kg (225 lb) 10/10/2024 9:00 AM EDT Height 180.3 cm (5' 11 ) 10/10/2024 9:00 AM EDT Body Mass Index 31.38 10/10/2024 9:00 AM EDT Plan of Treatment Health Maintenance Due Date Last Done Comments Depression Screening 1952 Fall Risk Screening 2006 Zoster (Shingles) Vaccine (2 of 3) 06/29/2011 05/04/2011 COVID-19 Vaccine (2023-2 5 season) 2024 05/26/2021, 09/21/2020, 08/20/2020 Influenza Vaccine 02/17/2025 04/04/2024, , 04/01/2022, Additional history exists Tobacco Screening 10/10/2025 10/10/2024 DTaP,Tdap and Td Vaccines (2 - Td or Tdap) 02/27/2033 02/27/2023 Medical Devices Not on file Insurance MEDICARE [facility] Advance Directives * Full Code (Latest Code Status on File) Date Activated Date Inactivated Comments 02/27/2023 9:26 PM 02/28/2023 1:55 PM
--- OUTSIDE RECORDS SUMMARY | 2024-11-27 13:19 | XMS_ITS | Patient Health Record ---
Author Organization [facility] Billing Info Address [address] [place], [place] [address] [address] Care Team Providers Care Spray Worker Name Role Phone GINNA BARRETO Unavailable [phone] GINNA BARRETO M.D. Unavailable Unavailable Allergies No Known Allergies Reason For Referral No Information Medications Medication SIG (Take, Route, Frequency, Duration) Notes Start Date End Date Status Ultram 50 MG 2 tablet as needed Orally QID 08/23/2021 Active Doxycycline Hyclate 100 MG 1 capsule Ora lly Once a day Not-Taking Ciprofloxacin HCl 500 MG 1 tablet Orally every 12 hrs Not-Taking Montelukast Sodium 10 MG 1 tablet Orally Once a day Active Singulair 10 MG 1 tablet in the evening Orally Once a day Not-Taking Atorvastatin Calcium 80 MG 1 tablet Oral ly Once a day for 30 day(s) Not-Taking Furosemide 40 MG 1 tablet Orally BID Not-Taking Hydrochlorothiazide 12.5 MG 1 capsule Or ally Once a day Active Tylenol 8 Hour 650 MG 2 tablets as neede d Orally every 8 hrs Not-Taking Allopurinol 300 MG 1 tablet Orally Once a day Active Lisinopril 2.5 MG 1 tablet Orally Once a day Active Acetaminophen 500 MG 1 tablet as needed Orally every 4-6 hrs Active Cinnamon 500 MG 2 Orally Daily Not-Taking Toujeo SoloStar 300 UNIT/ML as directed Subcutaneous Active Pantoprazole Sodium 40 MG 1 tablet Orall y Once a day for 30 day(s) Active Amlodipine Besylate 2.5 MG 1 tablet Oral ly Once a day for 30 day(s) Active Ropinirole HCl 2 MG 1 tablet Orally Once a day Active Glimepiride 4 MG 1 tablet with breakfast or the first main meal of the day Orally BID Active Metoprolol Tartrate 25 MG 1 tablet orally BID Active B-12 5000 MCG 1 tablet Orally Once a day Active Pioglitazone HCl 45 MG 1 tablet Orally O nce a day for 30 day(s) Active Eliquis 5 MG 1/2 tablet Orally Twice a day for 30 days Active Aspirin 81 MG 1 tablet Orally Once a day for 30 day(s) Active CO-Q 10 [place]-3 Fish Oil Not-Taking Aspirin 325 MG 1 tablet Orally Once a day Not-Taking Tylenol Extra Strength 500 MG 1 tablets as needed Orally every 6 hrs Not-Taking Colchicine 0.6 MG 1 tablet Orally Once a day for 30 day(s) prn Not-Taking Fluticasone Propionate Not-Taking Fish Oil 1000 MG 1 capsule Orally Once a day Not-Taking Multivitamin Not-Mike ing Claritin 10 MG 1 tablet Orally Once a day for 30 day(s) Active Levothyroxine Sodium 50 MCG 1 tablet on an empty stomach in the morning Orally Once a day Active Jardiance 25 MG 1 tablet Orally Once a day Active Pravastatin Sodium 40 MG 1 tablet Orally Once a day Not-Taking Immunizations Vaccine Route Administration Date Status Comme nts PNEUMOCOCCAL - 23 POLY (PNEU MOVAX 23) Unknown 07/05/2001 Administered FLU (Past vaccine of unknown type) Unknown 04/21/2016 A dministered Social History Tobacco Status: Question Answer Notes Patient is a non tobacco user Problems Problem Type SNOMED Code ICD Code Onset Dates Problem Status W/U Status Risk Notes Problem 649574221615306 Bursitis of left shoulder (M75.52) Active confirmed Left subacromia l bursa injection from a lateral approach on 08/13/2020-perez kamara Discussed apsqm-ri-cvzsfw activities to work on at home Problem 404638175 Psoriatic arthritis (L40.50) Active confirmed History of psoriatic arthritis. No active synovitis noted on exam and normal inflammatory markers. Prior treatment with sulfasalazine (? Benefit, expensive), leflunomide (diarrhea). X-rays of the hands and feet showed no specific psoriatic arthritis changes other than possible minimal erosive change right second MCP Problem 73057916 Lumbosacral spondylosis without myelopathy (M47.817) Active confirmed MRI of the lumb ar spine from 07/27/2016 showed multilevel DDD/DJD changes with severe spinal stenosis at L2-3 through L5-S1 and biforaminal stenosis L2-3 to L5-S1.. Benefit with tramadol. Physical therapy in [place] in summer 2015 and summer 2016. Prior acupuncture treatments-questi onable benefit. Benefit with chiropractic treatments and Ultram. Current benefit with physical therapy Problem 700185237 Primary osteoarthritis of knees, bilateral (M17.0) Active confirmed X-rays of bilateral knees from 05/06/2019 showed moderate medial compartment narrowing of the right knee with slight narrowing on the left. Sparing of the lateral compartments. Severe narrowing of the lateral patellofemoral compartments left greater than right. Minimal chondrocalcinosis left knee. R TKA on 02/28/20. 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 Moderate right and mild to moderate left talonavicular arthritis, mild bilateral arthritic change first MTP joints, moderate bilateral plantar calcaneal spurs Problem 404714132 Bursitis of both shoulders (M75.51) Active confirmed bursitis sympto ms intermittently. Benefit with prior injections. Possible biceps tendon tear/ruptures based on exam findings. Preserved range of motion on exam. Doing well today Problem 461629355584030 Carpal tunnel syndrome on left (G56.02) Active confirmed utilizing carp al tunnel bracing at night Problem 67225022 Chronic gouty arthritis (M1A.00X0) Active confirmed History of gout y arthropathy with flares involving the feet predominantly. Diagnosis is not crystal proven. No history of tophi. On allopurinol-at goal uric acid on the last labs. Prior treatment with Colcrys (diarrhea). Plan Of Treatment Future Test Test Name Order Date URIC ACID (Q-905) 09/13/2016 Insurance Providers Payer Name Payer Address Payer Phone Subscriber Number Group Number Insured Name Patient Relationship to Insured Coverage Start Date Coverage End Date MEDICARE [place] PART B [address] [facility] DIANA JACINTO [id number] Richard Black Self - patient is the insured 8 [facility] MEDICARE SUPP [place] [address] [facility] [place] [id number] Richard Black Self - patient is the insured 5 5 Medications Administered Medication Instructions Date of Administration Dosage Notes Triamcinolone Acetonide (Kenalog) 06/20/2019 Triamcinolone Acetonide (Kenalog) 08/13/2020 Hyaluronate Sodium (Euflexxa 1%) 08/01/2019 2 m L Hyaluronate Sodium (Euflexxa 1%) 08/08/2019 2 m L Hyaluronate Sodium (Euflexxa 1%) 08/15/2019 2 m L Medical (General) History Medical History History ICD Code HTN kidney problems diabetes type 2 Surgical History Surgery Date(Month/Year) RT Knee replacement 02/27/2020 cataracts 2018 repeat left hip replacement- Dr Carlos Manuel rahman 2009 bilateral hip replacement 95 & 96 Hospitalization History Reason Date(Month/Year) [facility]- Fall 02/27/2023 [facility]- Septic arthritis o f clavicle and breast bone 10/2021
--- OUTSIDE RECORDS SUMMARY | 2024-11-27 13:19 | XMS_ITS | Patient Health Record ---
Author Organization [facility] in [place] Address [address] [place] [address] Care Team Providers Care Memorial Counselor Name Role Phone None, Unknown or Primary Care Provider Unavailab Haritha Hurley Unavailable [phone] Results Component Value Reference Range Notes XR foot RT min 3V (Not yet r eviewed by provider) Interpretation: Performing Lab: Notes/Report: Source Facility: [place] [address] XRay Report Signed Patient: RICHARD BOYKIN MR#: [id number] : 1940 Acct:[id number] Age/Sex: 83 / M ADM Date: 03/01/24 Loc: Attending Dr: Yuri El D.P.M. Ordering Physician: Yuri El D.P.M. Date of Service: 03/01/24 Procedure(s): XR foot RT min 3V Accession Number(s): [id number] cc: MARJ PIPER ; Yuri El D.P.M. [place] [address] Patient Name: RICHARD BOYKIN MRN: [id number] date: 1940 Sex: M Assigned Patient Location: Current Patient Location: Accession/Order Number: [id number] Exam Date: 03/01/2024 10:30 Report Date: 03/03/2024 05:21 At the request of: YURI EL Procedure: XR foot RT min 3V PROCEDURE: XR foot RT min 3V HISTORY: RIGHT FOOT PAIN COMPARISON: XR foot right 09/19/2023 FINDINGS: BONES:Moderate degenerative changes throughout the midfoot with chronic, developmental beaking of the anterior margin of the talus at the talonavicular joint. Calcaneal plantar spur. Marked degenerative joint disease of the first metatarsophalangeal joint. Resection of the third toe distal interphalangeal joint. Flattening of the plantar arch. SOFT TISSUES:No visible soft tissue swelling. EFFUSION:None visible. OTHER: Negative. XR/XR foot RT min 3V IMPRESSION: 1. Stable surgical changes and moderate to marked degenerative changes. Electronically authenticated by: VASILE VALDIVIA Date: 03/03/2024 05:21 Dictated By: Vasile Valdivia M.D. Signed By: 03/03/24523 DD/ 0 TD/TT: Rn Wellness: [place] [address] XRay Report Signed Patient: RICHRAD BOYKIN MR#: [id number] : 1940 Acct:[id number] Age/Sex: 83 / M ADM Date: 03/01/24 Loc: Attending Dr: Yuri El D.P.M. Ordering Physician: Yuri El D.P.M. Date of Service: 03/01/24 Procedure(s): XR foot RT min 3V Accession Number(s): [id number] cc: MARJ PIPER ; Yuri El D.P.M. [place] [address] Patient Name: RICHARD BOYKIN MRN: [id number] date: 1940 Sex: M Assigned Patient Location: Current Patient Location: Accession/Order Numb er: [id number] Exam Date: 03/01/2024 10:30 Report Date: 03/03/2024 05:21 At the request of: YURI EL Procedure: XR foot RT min 3V PROCEDURE: XR foot RT min 3V HISTORY: RIGHT FOOT PAIN COMPARISON: XR foot right 09/19/2023 FINDINGS: BONES:Moderate degen erative changes throughout the midfoot with chronic, developmental beakin g of the anterior margin of the talus at the talonavicular joint. Calcaneal elisa ntar spur. Marked degenerative joint disease of the first metatarsophalangeal joint. Resection of the third toe distal interphalangeal joint. Flattening of the plantar arch. SOFT TISSUES:No visi ble soft tissue swelling. EFFUSION:None visible. OTHER: Negative. X R/XR foot RT min 3V IMPRESSION: 1. Stable surgical c hanges and moderate to marked degenerative changes. Electronically authe nticated by: VASILE VALDIVIA Date: 03/03/2024 05:21 Dictated By: Vasile Valdivia M.D. 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) Active confirmed Problem Venous ulcer of lower extremity due to chronic peripheral venous hypertension (953594412965972 ) Chronic venous hypertension (idiopathic) with ulcer of left lower extremity (I87.312) Active confirmed Problem Chronic ulcer of skin of lower leg (disorder) (742586528838864 04) Non-pressure chronic ulcer of other part of left lower leg limited to breakdown of skin (L97.821) Active confirmed Problem Chronic foot ulcer, limited to breakdown of skin, right (L97.511) Active confirmed Problem Non-prs chr ulcer oth prt l low leg limited to brkdwn skin (L97.821) Active confirmed Problem Foot ulcer due to type 2 diabetes mellitus (2876020136319) 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 (E11.621) Active confirmed Problem Skin ulcer of left pretibial region with fat layer exposed (L97.822) Active confirmed Problem Chronic ulcer of right foot (disorder) (888998923775929 00) Chronic ulcer of right foot with fat layer exposed (L97.512) Active confirmed Vital Signs Heart Rate 89 /min 06/24/2024 Temperature 97.8 degrees Fahrenheit 06/24/2024 Oximetry 99 % 06/24/2024 Encounters Encounter Location Date Provider Diagnosis [facility] ([facility]) [address] [place] [address] [place] [address] 06/24/2024 Haritha Mistry 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 E11.621 Assessments Encounter Date Diagnosis (ICD Code) Assessment Notes Treatment Notes Treatment Clinical Notes Section Notes 06/24/2024 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 (ICD-10 - E11.621) Plan Of Treatment Pending Test Test Name Order Date XR foot RT min 3V 03/03/2024 Insurance Providers Payer Name Payer Address Payer Phone Subscriber Number Group Number Insured Name Patient Relationship to Insured Coverage Start Date Coverage End Date MEDIC[place] [address] [place] [address] [id number] Richard Boykin Self - patient is the insured [facility] [address] [place] [address] [id number] Richard Boykin Self - patient is the insured
== END 2024-11-27 13:12 | disposition home or self-care (01) ==
LOC: WC 13:11
PROVIDERS: PCP Family Medicine; Visit Provider Physician Assistant
DX: E11.621 Type 2 diabetes mellitus with foot ulcer (principal); L97.512 Non-pressure chronic ulcer of other part of right foot with fat layer exposed
CPT/HCPCS: G0463

== ENCOUNTER 2024-11-29 11:00 | Outpatient (OUT) | payer MEDICARE, SELFPAY ==
--- OUTSIDE RECORDS SUMMARY | 2023-07-03 10:20 | XMS_ITS ---
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 Unavailable Unavailable Allergies No Known Allergies REASON FOR VISIT follow-up for gout and chronic arthritic issues Medications Medication SIG (Take, Route, Frequency, Duration) Notes Start Date End Date Status Glimepiride 4 MG 1 tablet with breakfast or the first main meal of the day Orally BID Active Metoprolol Tartrate 25 MG 1 tablet orally BID Active B-12 1000 MCG 1 tablet Orally Once a day Active Claritin 10 MG 1 tablet Orally Once a day for 30 day(s) Active Ropinirole HCl 2 MG 1 tablet Orally Once a day Active Toujeo SoloStar 300 UNIT/ML as directed Subcutaneous Active Pioglitazone HCl 45 MG 1 tablet Orally O nce a day for 30 day(s) Active Eliquis 5 MG 1/2 tablet Orally Twice a day for 30 days Active Aspirin 81 MG 1 tablet Orally Once a day for 30 day(s) Active Pantoprazole Sodium 40 MG 1 tablet Orall y Once a day for 30 day(s) Active Montelukast Sodium 10 MG 1 tablet Orally Once a day Active Lisinopril 2.5 MG 1 tablet Orally Once a day Active Acetaminophen 500 MG 1 tablet as needed Orally every 4-6 hrs Active Doxycycline Hyclate 100 MG 1 capsule Ora lly Once a day Active Ciprofloxacin HCl 500 MG 1 tablet Orally every 12 hrs Active Ultram 50 MG 2 tablet as needed Orally QID 08/23/2021 Active Tylenol Extra Strength 500 MG 1 tablets as needed Orally every 6 hrs Not-Taking Colchicine 0.6 MG 1 tablet Orally Once a day for 30 day(s) prn Not-Taking Cinnamon 500 MG 2 Orally Daily Not-Taking Allopurinol 300 MG 1 tablet Orally Once a day Active Fluticasone Propionate Not-Taking Fish Oil 1000 MG 1 capsule Orally Once a day Not-Taking Multivitamin Not-Mike ing CO-Q 10 [place]-3 Fish Oil Not-Taking Aspirin 325 MG 1 tablet Orally Once a day Not-Taking Singulair 10 MG 1 tablet in the evening Orally Once a day Not-Taking Pravastatin Sodium 40 MG 1 tablet Orally Once a day Not-Taking Tylenol 8 Hour 650 MG 2 tablets as neede d Orally every 8 hrs Not-Taking Atorvastatin Calcium 80 MG 1 tablet Oral ly Once a day for 30 day(s) Not-Taking Furosemide 40 MG 1 tablet Orally BID Not-Taking Levothyroxine Sodium 50 MCG 1 tablet on an empty stomach in the morning Orally Once a day Active Hydrochlorothiazide 12.5 MG 1 capsule Or ally Once a day Active Jardiance 25 MG 1 tablet Orally Once a day Active Amlodipine Besylate 2.5 MG 1 tablet Oral ly Once a day for 30 day(s) Active Social History Tobacco Status: Question Answer Notes Patient is a non tobacco user Vital Signs Height 71 in 07/03/2023 Weight 236.0 lbs 07/03/2023 BMI 32.91 kg/m2 07/03/2023 Blood pressure systolic 130 mm Hg 07/03/19 24 Blood pressure diastolic 82 mm Hg 024 Heart Rate 79 /min 07/03/2023 Respiratory Rate 17 /min 07/03/2023 Encounters Encounter Location Date Provider Diagnosis [id number] [address] [place] [address] [id number] 07/03/2023 GINNA BARRETO Lumbosacral spondylosis without myelopathy M47.817 ; Carpal tunnel syndrome on left G56.02 ; Chronic gouty arthritis M1A.00X0 ; Flexion deformity of finger joint of right hand M21.241 ; Primary osteoarthritis of knees, bilateral M17.0 ; Psoriatic arthritis L40.50 ; Localized primary osteoarthritis of both hands M19.041 ; Primary osteoarthritis of feet, bilateral M19.071 and Encounter for long-term (current) use of other medications Z79.899 Assessments Encounter Date Diagnosis (ICD Code) Assessment Notes Treatment Notes Treatment Clinical Notes Section Notes 07/03/2023 Lumbosacral spondylosis without myelopathy (ICD-10 - M47.817) MRI of the lumbar spine from 07/27/2016 showed multilevel DDD/DJD changes with severe spinal stenosis at L2-3 through L5-S1 and biforaminal stenosis L2-3 to L5-S1.. Benefit with tramadol. Physical therapy in [place] in summer 2015 and summer 2016. Prior acupuncture treatments-questiona ble benefit. Benefit with chiropractic treatments and Ultram. Current benefit with physical therapy improved with physical therapy. Patient will have the therapist contact us if they need an updated prescription. He will use walker to limit falls risk. He will continue on tramadol through primary care. labs from 03/26/2022: Serum creatinine increased at 2.27 with BUN of 48, calcium 9.6, pro BMP normal at 629 07/03/2023 Carpal tunnel syndrome on left (ICD-10 - G56.02) utilizing carpal tunnel bracing at night continue with carpal tunnel bracing for the left wrist at night. Suspect severe disease based on thenar wasting. labs from 03/26/2022: Serum creatinine increased at 2.27 with BUN of 48, calcium 9.6, pro BMP normal at 629 07/03/2023 Chronic gouty arthritis (ICD-10 - M1A.00X0) History of gouty arthropathy with flares involving the feet predominantly. Diagnosis is not crystal proven. No history of tophi. On allopurinol-at goal uric acid on the last labs. Prior treatment with Colcrys (diarrhea). Patient states that he has blood work ordered for Dr. Diane in Nephrology as well as other providers. He will make sure that results are sent to me. He will continue on his current regimen of allopurinol, no gout flares since last visit labs from 03/26/2022: Serum creatinine increased at 2.27 with BUN of 48, calcium 9.6, pro BMP normal at 629 07/03/2023 Flexion deformity of finger joint of right hand (ICD-10 - M21.241) Injury in May 2021. Possible tendon/ligament injury. Orthopedic evaluation in [place]-recommended against surgery labs from 03/26/2022: Serum creatinine increased at 2.27 with BUN of 48, calcium 9.6, pro BMP normal at 629 07/03/2023 Primary osteoarthritis of knees, bilateral (ICD-10 - M17.0) X-rays of bilateral knees from 05/06/2019 showed moderate medial compartment narrowing of the right knee with slight narrowing on the left. Sparing of the lateral compartments. Severe narrowing of the lateral patellofemoral compartments left greater than right. Minimal chondrocalcinosis left knee. R TKA on 02/28/20. labs from 03/26/2022: Serum creatinine increased at 2.27 with BUN of 48, calcium 9.6, pro BMP normal at 629 07/03/2023 Psoriatic arthritis (ICD-10 - L40.50) History of psoriatic arthritis. No active synovitis noted on exam and normal inflammatory markers. Prior treatment with sulfasalazine (? Benefit, expensive), leflunomide (diarrhea). X-rays of the hands and feet showed no specific psoriatic arthritis changes other than possible minimal erosive change right second MCP labs from 03/26/2022: Serum creatinine increased at 2.27 with BUN of 48, calcium 9.6, pro BMP normal at 629 07/03/2023 Localized primary osteoarthritis of both hands (ICD-10 - M19.041) OA of the hands, mainly at the first CMC joint and DIPs. labs from 03/26/2022: Serum creatinine increased at 2.27 with BUN of 48, calcium 9.6, pro BMP normal at 629 07/03/2023 Primary osteoarthritis of feet, bilateral (ICD-10 - M19.071) x-rays of bilateral feet from 03/23/15 showed no erosive arthritic change. Moderate right and mild to moderate left talonavicular arthritis, mild bilateral arthritic change first MTP joints, moderate bilateral plantar calcaneal spurs labs from 03/26/2022: Serum creatinine increased at 2.27 with BUN of 48, calcium 9.6, pro BMP normal at 629 07/03/2023 Encounter for long-term (current) use of other medications (ICD-10 - Z79.899) labs from 03/26/2022: Serum creatinine increased at 2.27 with BUN of 48, calcium 9.6, pro BMP normal at 629 Plan Of Treatment Medication Medication Name Sig Start Date Stop Date Notes Ultram 50 MG 2 tablet as needed Orally QID 08/23/2021 Allopurinol 300 MG 1 tablet Orally Once a day Treatment Notes Assessment Notes Lumbosacral spondylosis without myelopat hy improved with physical therapy. Patient will have the therapist contact us if they need an updated prescription. He will use walker to limit falls risk. He will continue on tramadol through primary care. Carpal tunnel syndrome on left continue with carpal tunnel bracing for the left wrist at night. Suspect severe disease based on thenar wasting. Chronic gouty arthritis Patient states t hat he has blood work ordered for Dr. Diane in Nephrology as well as other providers. He will make sure that results are sent to me. He will continue on his current regimen of allopurinol, no gout flares since last visit Next Appt Details Follow Up: August, Reason: ar thritis Progress Notes * Richard BOYKINDOB:1940 ([age] yo M)Acc No.[id number]:07/03/2023 PROGRESS NOTE Patient: Richard MATHEWS Provider: Kumar BARRETO MD :1940 A ge:83 Y S ex:Male Date:07/03/2023 C #:[id number] Address:[address] [place] [address] [id number] Subjective: * Chief Complaints: * F ollow-up for gout and chronic arthritic issues * HPI: P atient History: mary harkins returns today for follow-up of gout chronic arthritic issues. Since last visit he has continued on allopurinol for gout. No reported gouty flare symptoms. He states that he has been getting significant benefit from the physical therapy for his back. He states that he no longer requires a chiropractor. He did however developed a blister on 1 of his toes of his right foot. He was seen by Dr. Alfaro in Podiatry. He has been treated with antibiotics with progressive improvement. He does not describe any focal radicular pain complaints.? He uses a walker to ambulate. No reported falls or fractures. * ROS: R HEUMATOLOGY: Constitutional: N egative for:, fever, chills, fatigue.?Cardiovascular: P ositive for: Diagnosis of atrial fibrillation. R espiratory: N egative for:, dyspnea, dyspnea on exertion. G astrointestinal: N egative for:, abdominal pain, blood in stool, nausea, vomiting, GERD, dysphagia, diarrhea. I ntegumentary (skin and/or breast) N egative for, Raynaud's, hair loss, Positive for: Blister right foot. N eurological: N egative for:, headaches, abrupt vision loss, seizures, Positive for: Neuropathy.? * Medical History: * Surgical History: b ilateral hip replacement 95 & 96repeat left hip replacement- Dr Carlos Manuel Reyes 2010cataracts 2018RT Knee replacement 02/27/2020 * Hospitalization/Major Diagno stic Procedure: [facility] [place] * Family History: I n the family: gout, psoriatic arthritis. * Social History: A lcohol Use Patient d oes not use alcohol T obacco Status Patient is a non tobacco user M arital Status: . I llicit Drug Use Patient/Family reports: N o illicit drug use C affeine: soda, 3-4 per day. O ccupation/Work: retired. * Medications: T akingAcetaminophen 500 MG Tablet 1 tablet as needed Orally every 4-6 hrs Allopurinol 300 MG Tablet 1 tablet Orally Once a day Amlodipine Besylate 2.5 MG Tablet 1 tablet Orally Once a day Aspirin 81 MG Tablet Chewable 1 tablet Orally Once a day B-12 1000 MCG Tablet Sublingual 1 tablet Orally Once a day Ciprofloxacin HCl 500 MG Tablet 1 tablet Orally every 12 hrs Claritin 10 MG Tablet 1 tablet Orally Once a day Doxycycline Hyclate 100 MG Capsule 1 capsule Orally Once a day Eliquis 5 MG Tablet 1/2 tablet Orally Twice a day Glimepiride 4 MG Tablet 1 tablet with breakfast or the first main meal of the day Orally BID Hydrochlorothiazide 12.5 MG Capsule 1 capsule Orally Once a day Jardiance 25 MG Tablet 1 tablet Orally Once a day Levothyroxine Sodium 50 MCG Tablet 1 tablet on an empty stomach in the morning Orally Once a day Lisinopril 2.5 MG Tablet 1 tablet Orally Once a day Metoprolol Tartrate 25 MG tablet 1 tablet orally BID Montelukast Sodium 10 MG Tablet 1 tablet Orally Once a day Pantoprazole Sodium 40 MG Tablet Delayed Release 1 tablet Orally Once a day Pioglitazone HCl 45 MG Tablet 1 tablet Orally Once a day Ropinirole HCl 2 MG Tablet 1 tablet Orally Once a day Toujeo SoloStar 300 UNIT/ML Solution Pen-injector as directed Subcutaneous Ultram 50 MG Tablet 2 tablet as needed Orally QID Taking Acetaminophen 500 MG Tablet 1 tablet as needed Orally every 4-6 hrs Taking Allopurinol 300 MG Tablet 1 tablet Orally Once a day Taking Amlodipine Besylate 2.5 MG Tablet 1 tablet Orally Once a day Taking Aspirin 81 MG Tablet Chewable 1 tablet Orally Once a day Taking B-12 1000 MCG Tablet Sublingual 1 tablet Orally Once a day Taking Ciprofloxacin HCl 500 MG Tablet 1 tablet Orally every 12 hrs Taking Claritin 10 MG Tablet 1 tablet Orally Once a day Taking Doxycycline Hyclate 100 MG Capsule 1 capsule Orally Once a day Taking Eliquis 5 MG Tablet 1/2 tablet Orally Twice a day Taking Glimepiride 4 MG Tablet 1 tablet with breakfast or the first main meal of the day Orally BID Taking Hydrochlorothiazide 12.5 MG Capsule 1 capsule Orally Once a day Taking Jardiance 25 MG Tablet 1 tablet Orally Once a day Taking Levothyroxine Sodium 50 MCG Tablet 1 tablet on an empty stomach in the morning Orally Once a day Taking Lisinopril 2.5 MG Tablet 1 tablet Orally Once a day Taking Metoprolol Tartrate 25 MG tablet 1 tablet orally BID Taking Montelukast Sodium 10 MG Tablet 1 tablet Orally Once a day Taking Pantoprazole Sodium 40 MG Tablet Delayed Release 1 tablet Orally Once a day Taking Pioglitazone HCl 45 MG Tablet 1 tablet Orally Once a day Taking Ropinirole HCl 2 MG Tablet 1 tablet Orally Once a day Taking Toujeo SoloStar 300 UNIT/ML Solution Pen-injector as directed Subcutaneous Taking Ultram 50 MG Tablet 2 tablet as needed Orally QID Not-TakingAspirin 325 MG Tablet 1 tablet Orally Once a day Atorvastatin Calcium 80 MG Tablet 1 tablet Orally Once a day Cinnamon 500 MG Capsule 2 Orally Daily CO-Q 10 [place]-3 Fish Oil Colchicine 0.6 MG Tablet 1 tablet Orally Once a day , Notes to Pharmacist: prnFish Oil 1000 MG Capsule 1 capsule Orally Once a day Fluticasone Propionate Furosemide 40 MG Tablet 1 tablet Orally BID Multivitamin Pravastatin Sodium 40 MG Tablet 1 tablet Orally Once a day Singulair 10 MG Tablet 1 tablet in the evening Orally Once a day Tylenol 8 Hour 650 MG Tablet Extended Release 2 tablets as needed Orally every 8 hrs Tylenol Extra Strength 500 MG Tablet 1 tablets as needed Orally every 6 hrs Medication List reviewed and reconciled with the patientNot-Taking Aspirin 325 MG Tablet 1 tablet Orally Once a day Not-Taking Atorvastatin Calcium 80 MG Tablet 1 tablet Orally Once a day Not- Taking Cinnamon 500 MG Capsule 2 Orally Daily Not-Taking CO-Q 10 [place]-3 Fish Oil Not- Taking Colchicine 0.6 MG Tablet 1 tablet Orally Once a day , Notes to Pharmacist: prnNot-Taking Fish Oil 1000 MG Capsule 1 capsule Orally Once a day Not-Taking Fluticasone Propionate Not-Taking Furosemide 40 MG Tablet 1 tablet Orally BID Not-Taking Multivitamin Not-Taking Pravastatin Sodium 40 MG Tablet 1 tablet Orally Once a day Not-Taking Singulair 10 MG Tablet 1 tablet in the evening Orally Once a day Not-Taking Tylenol 8 Hour 650 MG Tablet Extended Release 2 tablets as needed Orally every 8 hrs Not-Taking Tylenol Extra Strength 500 MG Tablet 1 tablets as needed Orally every 6 hrs Medication List reviewed and reconciled with the patient * Allergies: N .K.A.no[Allergies Verified] Objective: * Vitals: H t: 71 in, Ht-cm: 180.34 cm, Wt: 236.0 lbs, Wt-k.05 kg, BMI:32.91, Weight Change: -11 lbs, Body Surface Area: 2.31, BP:130/82, HR:79, Respiratory Rate:17, Pain scale: 5. * Examination: R HEUMATOLOGY: Constitutional c onversant, well-developed, overweight, no apparent distress, used a walker to ambulate. Eyes N o conjunctival injection. Respiratory n ormal respiratory effort, clear to auscultation. Cardiovascular R egular rhythm, no MRGs, mild lower extremity pitting edema with chronic venous stasis changes. Gastrointestinal - Abdomen s oft with no masses, normal bowel sounds. Musculoskeletal E lbows had full extension without swelling. Wrists and small joints of the hands had OA change at the DIP joints of the right third and fourth fingers. No dactylitis swelling of fingers. Flexion change of the right 5th PIP. thenar wasting on the left. Knees had no effusions. Scar over right knee from joint replacement surgery. Back had no tenderness in the lower lumbar spine. Skin R ight foot not examined. Psychiatric a ppropriate affect. Assessment: * Assessment: 1. L umbosacral spondylosis without myelopathy - M47.817 (Primary), MRI of the lumbar spine from 07/27/2016 showed multilevel DDD/DJD changes with severe spinal stenosis at L2-3 through L5-S1 and biforaminal stenosis L2-3 to L5-S1.. Benefit with tramadol. Physical therapy in [place] in summer 2015 and summer 2016. Prior acupuncture treatments-questionable benefit. Benefit with chiropractic treatments and Ultram. Current benefit with physical therapy 2 . C arpal tunnel syndrome on left - G56.02, utilizing carpal tunnel bracing at night 3 . C hronic gouty arthritis - M1A.00X0, History of gouty arthropathy with flares involving the feet predominantly. Diagnosis is not crystal proven. No history of tophi. On allopurinol-at goal uric acid on the last labs. Prior treatment with Colcrys (diarrhea). 4 . 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 Possible tendon/ligament injury. Orthopedic evaluation in [place]-recommended against surgery 5 . P rimary osteoarthritis of knees, bilateral - M17.0, X-rays of bilateral knees from 05/06/2019 showed moderate medial compartment narrowing of the right knee with slight narrowing on the left. Sparing of the lateral compartments. Severe narrowing of the lateral patellofemoral compartments left greater than right. Minimal chondrocalcinosis left knee. R TKA on 02/28/20. 6 . Psoriatic arthritis - L40.50, History of psoriatic arthritis. No active synovitis noted on exam and normal inflammatory markers. Prior treatment with sulfasalazine (? Benefit, expensive), leflunomide (diarrhea). X-rays of the hands and feet showed no specific psoriatic arthritis changes other than possible minimal erosive change right second MCP 7 . L ocalized primary osteoarthritis of both hands - M19.041, OA of the hands, mainly at the first CMC joint and DIPs. 8 . P rimary osteoarthritis of feet, bilateral - M19.071, x-rays of bilateral feet from 03/23/15 showed no erosive arthritic change. Moderate right and mild to moderate left talonavicular arthritis, mild bilateral arthritic change first MTP joints, moderate bilateral plantar calcaneal spurs 9 . E ncounter for long-term (current) use of other medications - Z79.899 labs from 03/26/2022: Serum creatinine increased at 2.27 with BUN of 48, calcium 9.6, pro BMP normal at 629. Plan: * Treatment: 2. C arpal tunnel syndrome on left Notes: continue with carpal tunnel bracing for the left wrist at night. Suspect severe disease based on thenar wasting. 3. C hronic gouty arthritis Continue Allopurinol Tablet, 300 MG, 1 tablet, Orally, Once a day. Notes: Patient states that he has blood work ordered for Dr. Diane in Nephrology as well as other providers. He will make sure that results are sent to me. He will continue on his current regimen of allopurinol, no gout flares since last visit * Procedure Codes: * Preventive Medicine: [place] PAF (Patient Assessment Form): F all Risk Assessment Date Screening Completed: 0 07/03/2023 Increased Fall Risk factors: D ifficulty ambulating (walks with cane or walker) History Falls in Past Year: O ne fall with injury in past year A positive response is considered at risk. Addressed: P atient education I mmunizations Influenza Vaccine: 1 Pneumococcal Vaccine: Reji Munoz, date and dose unknown Quality Measures: W eight Assessment Above Normal BMI Follow-Up W eight monitoring * Follow Up: M arch (Reason: arthritis) * Care Plan Details* * Sign off status: Completed true * Provider: Kumar BARRETO MD Date: 0 07/03/2023 Generated for Kristi torres/Stephanie/Jimitting on: 0 12/05/2024 02:42 PM EDT History and Physical Notes * HPI (History of Present Illness) Category Sub-Category Detail Notes Category Not es Patient History ray returns today for follow-up of gout chronic arthritic issues. Since last visit he has continued on allopurinol for gout. No reported gouty flare symptoms. He states that he has been getting significant benefit from the physical therapy for his back. He states that he no longer requires a chiropractor. He did however developed a blister on 1 of his toes of his right foot. He was seen by Dr. Alfaro in Podiatry. He has been treated with antibiotics with progressive improvement. He does not describe any focal radicular pain complaints. He uses a walker to ambulate. No reported falls or fractures. Examination Category Sub-Category Detail Notes Category Not es RHEUMATOLOGY Constitutional conversant, well -developed, overweight, no apparent distress, used a walker to ambulate Eyes No conjunctival inje ction Respiratory normal respiratory e ffort, clear to auscultation Cardiovascular Regular rhythm, no M RGs, mild lower extremity pitting edema with chronic venous stasis changes Gastrointestinal - Abdomen soft with no masses, normal bowel sounds Musculoskeletal Elbows had full exte nsion without swelling. Wrists and small joints of the hands had OA change at the DIP joints of the right third and fourth fingers. No dactylitis swelling of fingers. Flexion change of the right 5th PIP. thenar wasting on the left. Knees had no effusions. Scar over right knee from joint replacement surgery. Back had no tenderness in the lower lumbar spine Skin Right foot not exami pritesh Psychiatric appropriate affect
--- OUTSIDE RECORDS SUMMARY | 2023-08-28 10:20 | XMS_ITS ---
Author Organization [facility] Billing Info Address [address] [place] [address] [place] [address] Care Team Providers Care Mattress Stuffer Name Role Phone GINNA BARRETO Unavailable [phone] GINNA BARRETO M.D. Unavailable Unavailable Allergies No [...] MG 2 Orally Daily Not-Taking CO-Q 10 [place]-3 Fish Oil Not-Taking Fluticasone Propionate Not-Taking Fish [...] Problem Status W/U Status Risk Notes Problem [id number] Carpal tunnel syndrome on left (G56.02) Active confirmed utilizing carpal tunnel bracing at night Vital Signs Height 71 in 08/28/2023 Weight 236.0 lbs 08/28/2023 BMI 32.91 kg/m2 08/28/2023 Blood pressure systolic 115 mm Hg 08/28/19 24 Blood pressure diastolic 73 mm Hg 024 Heart Rate 84 /min 08/28/2023 Respiratory Rate 17 /min 08/28/2023 Oximetry 95 08/28/2023 Encounters Encounter Location Date Provider Diagnosis [id number] [facility] [address] [place] [phone] 08/28/2023 GINNA BARRETO Lumbosacral spondylosis without myelopathy [...] L5-S1.. Benefit with tramadol. Physical therapy in [place] in summer 2015 and summer 2016. Prior [...] Patient will continue to avoid nonsteroidal anti-inflammato buhpendra. Unfortunately uric acid was not checked with labs. - Patient will continue on his current regimen of allopurinol.- Labs: Patient was encouraged to have his providers in [place] check uric acid periodically- Continue to monitor [...] 2021. Possible tendon/ligament injury. Orthopedic evaluation in [place]-recommended against surgery labs from 03/26/2022: Serum creatinine [...] was encouraged to have his providers in [place] check uric acid periodically- Continue to monitor labs on a regular basis to monitor for any drug related toxicity.- Patient will contact me for any questions or concerns prior to scheduled follow-up Next Appt Details Follow Up: upon return to [facility], Reason: arthritis Progress Notes * Richard BOYKINDOB:1940 ([age] yo M)Acc No.[id number]:08/28/2023 PROGRESS NOTE Patient: Richard MATHEWS Provider: Kumar BARRETO MD :1940 A ge:83 Y S ex:Male Date:08/28/2023 C #:[id number] Address:[address] [place] [address] Dr Gill [facility] Subjective: * Chief Complaints: * F ollow-up [...] Septic arthritis of clavicle and breast bone 10/2021[facility] [place] [facility]- Fall 02/27/2023 * Family History: I [...] tablet Orally every 12 hrs CO-Q 10 [place]-3 Fish Oil Colchicine 0.6 MG Tablet 1 [...] Orally every 12 hrs Not-Taking CO-Q 10 [place]-3 Fish Oil Not-Taking Colchicine 0.6 MG Tablet [...] L5-S1.. Benefit with tramadol. Physical therapy in [place] in summer 2015 and summer 2016. Prior acupuncture treatments-questionable benefit. Benefit with chiropractic treatments and Ultram. Current benefit with physical therapy 3 . C arpal tunnel syndrome on left - G56.02, utilizing carpal tunnel bracing at night 4 . 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 Possible tendon/ligament injury. Orthopedic evaluation in [place]-recommended against surgery 5 . P rimary osteoarthritis [...] care * Procedure Codes: * Preventive Medicine: [place] PAF (Patient Assessment Form): F all Risk [...] 08/28/2023 Generated for Kristi torres/Stephanie/Jimitting on: 0 12/05/2024 [...]
--- OUTSIDE RECORDS SUMMARY | 2024-09-23 09:00 | XMS_ITS ---
Author Organization The [facility] in [place] Address [address] [place] [address] Care Team Providers Care Product Grader Name Role Phone None, Unknown or Primary Care Provider Unavailab Haritha Hurley Unavailable [phone] REASON FOR VISIT nails lm to cancel ; lm with appt Encounters Encounter Location Date Provider Diagnosis [facility] (PODIATRY) [address] [place] [address] [place] [address] 09/23/2024 Haritha Mistry Plan Of Treatment No Information Progress Notes * Richard BOYKINDOB:1940 ([age] yo M)Acc No.[id number]:09/23/2024 UNLOCKED PROGRESS NOTE Nurse Visit Patient: Richard MATHEWS Provider: Raul Mistry PA-C :1940 A ge:84 Y S ex:Male Date:09/23/2024 Address:[address] [place], [place] [address] Pcp:Unknown or None Subjective: * Chief Complaints: * 1 . Nails lm to cancel ; lm with appt. * Medical History: Objective: * Vitals: Assessment: Plan: * Treatment: * * Electronic signature of Aundrea Mistry PA-C on 12/05/2024 at 02:42 PM EDT Sign off status: Pending Visit Status: O FF CANC (OFFICE CANCEL) * Provider: Raul Mistry PA-C Date: 0 09/23/2024 Generated for Printi ng/Faisaurag/eTransmitting on: 0 12/05/2024 02:42 PM EDT
--- OUTSIDE RECORDS SUMMARY | 2024-12-05 14:42 | XMS_ITS | Patient Health Record ---
Author Organization [facility] Silvio brown Billing Info Address [address] [place], [place] [address]l[place] [address] Care Team Providers Care Agriculture Teacher Name Role Phone GINNA BARRETO Unavailable [phone] GINNA BARRETO M.D. Unavailable Unavailable Allergies No [...] day for 30 day(s) Active CO-Q 10 [place]-3 Fish Oil Not-Taking Aspirin 325 MG 1 [...] Problem Status W/U Status Risk Notes Problem 471304738515176 Bursitis of left shoulder (M75.52) Active confirmed Left subacromia l bursa injection from a lateral approach on 08/13/2020-perez akmara Discussed elgcs-xh-nkvrmz activities to work on at home Problem 949945920 Psoriatic arthritis (L40.50) Active confirmed History of psoriatic arthritis. No active synovitis noted on exam and normal inflammatory markers. Prior treatment with sulfasalazine (? Benefit, expensive), leflunomide (diarrhea). X-rays of the hands and feet showed no specific psoriatic arthritis changes other than possible minimal erosive change right second MCP Problem [id number] Lumbosacral spondylosis without myelopathy (M47.817) Active confirmed MRI of the lumb ar spine from 07/27/2016 showed multilevel DDD/DJD changes with severe spinal stenosis at L2-3 through L5-S1 and biforaminal stenosis L2-3 to L5-S1.. Benefit with tramadol. Physical therapy in [place] in summer 2015 and summer 2016. Prior acupuncture treatments-questi onable benefit. Benefit with chiropractic treatments and Ultram. Current benefit with physical therapy Problem 139439989 Primary osteoarthritis of knees, bilateral (M17.0) Active confirmed X-rays of bilateral knees from 05/06/2019 showed moderate medial compartment narrowing of the right knee with slight narrowing on the left. Sparing of the lateral compartments. Severe narrowing of the lateral patellofemoral compartments left greater than right. Minimal chondrocalcinosis left knee. R TKA on 02/28/20. Problem 841661275 Localized primary osteoarthritis of both hands (M19.041) Active confirmed OA of the hands , mainly at the first CMC joint and DIPs. Problem 235120559 Primary osteoarthritis of feet, bilateral (M19.071) Active confirmed x-rays of bilateral feet from 03/23/15 showed no erosive arthritic change. Moderate right and mild to moderate left talonavicular arthritis, mild bilateral arthritic change first MTP joints, moderate bilateral plantar calcaneal spurs Problem 090628029 Bursitis of both shoulders (M75.51) Active confirmed bursitis sympto ms intermittently. Benefit with prior injections. Possible biceps tendon tear/ruptures based on exam findings. Preserved range of motion on exam. Doing well today Problem 146100647966553 Carpal tunnel syndrome on left (G56.02) Active confirmed utilizing carp al tunnel bracing at night Problem 63873304 Chronic gouty arthritis (M1A.00X0) Active confirmed History [...] MEDICARE [place] PART B [address] [facility] DIANA JACINTO [id number] Richard Black Self - patient is the insured 8 [facility] MEDICARE SUPP [place] [address] [facility] [place] [id number] Richard Black Self - patient is the [...] Knee replacement 02/27/2020 Hospitalization History Reason Date(Month/Year) [facility]- Fall 02/27/2023 [facility]- Septic arthritis o f clavicle and breast bone 10/2021
--- OUTSIDE RECORDS SUMMARY | 2024-12-05 14:42 | XMS_ITS | Referral Summary ---
Author Organization [facility] Address [address] [place] [address] Care Team Providers Care Grapple Yarder Operator Name Role Phone Zhao Sorensen MD Primary Care Provider [phone] Encounters Date Type Department Care Team Description 10/28/2024 11:45 AM EDT Office Visit [facility] [place] [address] [place] [address] Lonny Liu MD PAD (peripheral [...] Assessment & Plan (10/21/2022 11:36 AM EDT): [id number]= 6 age, HTN, CHF, DM and PAD Continue eliquis 2.5 mg bid, and metoprolol 25 mg bid- heart rate well controlled Peripheral arterial occlusive disease 01/24/2022 Aortic valve stenosis 01/24/2022 Acquired hypothyroidism 11/30/2021 Cellulitis of lower leg 11/30/2021 Hyperglycemia 11/30/2021 Right lower lobe pneumonia 11/30/2021 Atrial fibrillation 11/29/2021 Assessment & Plan (10/21/2022 9:24 AM EDT): [id number] score is 4 due to age, hypertension, [...] of Treatment Not on file Insurance MEDICARE [facility] Care Teams Grapple Yarder Operator Relationship Specialty Start Date End Date Zhao Sorensen MD [address] [place] [address] PCP - General 02/19/22
--- OUTSIDE RECORDS SUMMARY | 2024-12-05 14:43 | XMS_ITS | Patient Health Record ---
Author Organization [facility] [place] Address [address] [place] [address] Care Team Providers Care Ssn/Ssbn Assistant Navigator Name Role Phone None, Unknown or Primary Care Provider Unavailab Haritha Hurley Unavailable [phone] Results Component Value Reference Range Notes XR foot RT min 3V (Not yet r eviewed by provider) Interpretation: Performing Lab: Notes/Report: Source Facility: [place] [address] XRay Report Signed Patient: RICHARD BOYKIN MR#: [id number] : 1940 Acct:[id number] Age/Sex: 83 / M ADM Date: 03/01/24 Loc: Attending Dr: Yuri El D.P.M. Ordering Physician: Yuri El D.P.M. Date of Service: 03/01/24 Procedure(s): XR foot RT min 3V Accession Number(s): [id number] cc: MARJ PIPER ; Yuri El D.P.M. [place] [address] Patient Name: RICHARD BOYKIN MRN: [id number] date: 1940 Sex: M Assigned Patient Location: Current Patient Location: Accession/Order Number: [id number] Exam Date: 03/01/2024 10:30 Report Date: 03/03/2024 [...] M.D. Signed By: 03/03/24523 DD/ 0 TD/TT: Inside Barrel Polisher: [place] [address] XRay Report Signed Patient: RICHARD BOYKIN MR#: [id number] : 1940 Acct:[id number] Age/Sex: 83 / M ADM Date: 03/01/24 Loc: Attending Dr: Yuri El D.P.M. Ordering Physician: Yuri El D.P.M. Date of Service: 03/01/24 Procedure(s): XR foot RT min 3V Accession Number(s): [id number] cc: MARJ PIPER ; Yuri El D.P.M. [place] [address] Patient Name: RICHARD BOYKIN MRN: [id number] date: 1940 Sex: M Assigned Patient Location: Current Patient Location: Accession/Order Numb er: [id number] Exam Date: 03/01/2024 10:30 Report Date: 03/03/2024 [...] M.D. Signed By: 03/03/24523 DD/ 0 TD/TT: Inside Barrel Polisher: Reason For Referral No Information Problems Problem Type SNOMED Code ICD Code Onset Dates Problem Status W/U Status Risk Notes Problem Foot ulcer due to type 2 diabetes mellitus (4737043221552) Type 2 diabetes mellitus with foot ulcer (E11.621) Active confirmed Problem Venous ulcer of lower extremity due to chronic peripheral venous hypertension (364651547078455 ) Chronic venous hypertension (idiopathic) with ulcer of left lower extremity (I87.312) Active confirmed Problem Chronic ulcer of skin of lower leg (disorder) (387399724554050 04) Non-pressure chronic ulcer of other part of left lower leg limited to breakdown of skin (L97.821) Active confirmed Problem Chronic foot ulcer, limited to breakdown of skin, right (L97.511) Active confirmed Problem Non-prs chr ulcer oth prt l low leg limited to brkdwn skin (L97.821) Active confirmed Problem Foot ulcer due to type 2 diabetes mellitus (2161916876341) 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 (E11.621) Active confirmed Problem Skin ulcer of left pretibial region with fat layer exposed (L97.822) Active confirmed Problem Chronic ulcer of right foot (disorder) (280003808552567 00) Chronic ulcer of right foot with fat layer exposed (L97.512) Active confirmed Vital Signs Heart Rate 89 /min 06/24/2024 Temperature 97.8 degrees Fahrenheit 06/24/2024 Oximetry 99 % 06/24/2024 Encounters Encounter Location Date Provider Diagnosis [facility] (POD[facility]) [address] [place] [address] [place] [address] 06/24/2024 Haritha Mistry Diabetes mellitus with foot [...] End Date MEDICARE [place] [address] [place] [address] [id number] Richard Boykin Self - patient is the insured [facility] [address] [place] [address] [id number] Richard Boykin Self - patient is the insured
--- OUTSIDE RECORDS SUMMARY | 2024-12-05 14:43 | XMS_ITS | Clinical Summary ---
Author Organization [facility] Address [id number] [address] [place] [address] Care Team Providers Care Outside Machinist Supervisor Name Role Phone Unavailable Primary Care [...] mouth daily as needed for allergies. Active imoozdsm-jcsh-QU-ca lcium &mins (THERAGRAN-M) 9 mg iron-400 mcg [...] Date Diagnosed Date Critical limb ischemia of [facility] lower extremity with gangrene 10/10/2024 Assessment & [...] Office Visit [facility] [address] [place] [address] Willian Shaikh MD Critical limb ischemia [...] Medical Devices Not on file Insurance MEDICARE [facility] Advance Directives * Full Code (Latest Code Status on File) Date Activated Date Inactivated Comments 02/27/2023 9:26 PM 02/28/2023 1:55 PM
--- OUTSIDE RECORDS SUMMARY | 2024-12-05 14:43 | XMS_ITS | Continuity of Care Document ---
Author Organization [facility] Address [address] [address] [place] [address] Phone [phone] Care Team Providers Care Hydroelectric Station Operator Chief Name Role Phone . DOCTOR FORMS, COPIES INTEREST Care Team Inform ation It Architecture Analyst Unavailable
== END 2024-11-29 11:01 | disposition home or self-care (01) ==
LOC: WC 12-05 14:39
PROVIDERS: PCP Family Medicine; Visit Provider Physician Assistant
DX: E11.621 Type 2 diabetes mellitus with foot ulcer (principal); L97.512 Non-pressure chronic ulcer of other part of right foot with fat layer exposed
CPT/HCPCS: G0463

== ENCOUNTER 2024-12-04 14:51 | Outpatient (OUT) | payer MEDICARE, SELFPAY ==
--- OUTSIDE RECORDS SUMMARY | 2023-07-03 10:20 | XMS_ITS ---
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 Unavailable Unavailable Allergies No [...] day Not-Taking Multivitamin Not-Mike ing CO-Q 10 [place]-3 Fish Oil Not-Taking Aspirin 325 MG 1 [...] 07/03/2023 Encounters Encounter Location Date Provider Diagnosis [id number] [address] [place] [address] [phone] 07/03/2023 GINNA BARRETO Lumbosacral spondylosis without myelopathy [...] L5-S1.. Benefit with tramadol. Physical therapy in [place] in summer 2015 and summer 2016. Prior [...] 2021. Possible tendon/ligament injury. Orthopedic evaluation in [place]-recommended against surgery labs from 03/26/2022: Serum creatinine [...] * Richard BOYKINDOB:1940 ([age] yo M)Acc No.[id number]:07/03/2023 PROGRESS NOTE Patient: Richard MATHEWS Provider: Kumar BARRETO MD :1940 A ge:83 Y S ex:Male Date:07/03/2023 C #:[id number] Address:[address] [place] [address] [id number] Subjective: * Chief Complaints: * F ollow-up [...] [facility] * Family History: [...] MG Capsule 2 Orally Daily CO-Q 10 [place]-3 Fish Oil Colchicine 0.6 MG Tablet 1 [...] Capsule 2 Orally Daily Not-Taking CO-Q 10 [place]-3 Fish Oil Not- Taking Colchicine 0.6 MG [...] L5-S1.. Benefit with tramadol. Physical therapy in [place] in summer 2015 and summer 2016. Prior [...] 2021. Possible tendon/ligament injury. Orthopedic evaluation in [place]-recommended against surgery 5 . P rimary osteoarthritis [...] visit * Procedure Codes: * Preventive Medicine: [place] PAF (Patient Assessment Form): F all Risk [...] 07/03/2023 Generated for Kristi torres/Stephanie/Jimitting on: 0 12/04/2024 02:55 PM EDT History and Physical Notes * [...]
--- OUTSIDE RECORDS SUMMARY | 2023-08-28 10:20 | XMS_ITS ---
Author Organization [facility] Billing Info Address [address] [place] [address] [place] [address] Care Team Providers Care Flow Coordinator Name Role Phone GINNA BARRETO Unavailable [phone] GINNA BARRETO M.D. Unavailable Unavailable Allergies No [...] MG 2 Orally Daily Not-Taking CO-Q 10 [place]-3 Fish Oil Not-Taking Fluticasone Propionate Not-Taking Fish [...] Problem Status W/U Status Risk Notes Problem [id number] Carpal tunnel syndrome on left (G56.02) Active confirmed utilizing carpal tunnel bracing at night Vital Signs Height 71 in 08/28/2023 Weight 236.0 lbs 08/28/2023 BMI 32.91 kg/m2 08/28/2023 Blood pressure systolic 115 mm Hg 08/28/19 24 Blood pressure diastolic 73 mm Hg 024 Heart Rate 84 /min 08/28/2023 Respiratory Rate 17 /min 08/28/2023 Oximetry 95 08/28/2023 Encounters Encounter Location Date Provider Diagnosis [id number] [facility] [address] [place] [address] [id number] 08/28/2023 GINNA BARRETO Lumbosacral spondylosis without myelopathy [...] L5-S1.. Benefit with tramadol. Physical therapy in [place] in summer 2015 and summer 2016. Prior [...] was encouraged to have his providers in [place] check uric acid periodically- Continue to monitor [...] 2021. Possible tendon/ligament injury. Orthopedic evaluation in [place]-recommended against surgery labs from 03/26/2022: Serum creatinine [...] was encouraged to have his providers in [place] check uric acid periodically- Continue to monitor labs on a regular basis to monitor for any drug related toxicity.- Patient will contact me for any questions or concerns prior to scheduled follow-up Next Appt Details Follow Up: upon return to [facility], Reason: arthritis Progress Notes * Richard BOYKINDOB:1940 ([age] yo M)Acc No.[id number]:08/28/2023 PROGRESS NOTE Patient: Richard MATHEWS Provider: Kumar BARRETO MD :1940 A ge:83 Y S ex:Male Date:08/28/2023 C #:[id number] Address:[address] [place] [address] Dr Gill [id number] Subjective: * Chief Complaints: * F ollow-up [...] Septic arthritis of clavicle and breast bone 10/2021[facility]- Fall 02/27/2023 * Family History: I [...] tablet Orally every 12 hrs CO-Q 10 [place]-3 Fish Oil Colchicine 0.6 MG Tablet 1 [...] Orally every 12 hrs Not-Taking CO-Q 10 [place]-3 Fish Oil Not-Taking Colchicine 0.6 MG Tablet [...] L5-S1.. Benefit with tramadol. Physical therapy in [place] in summer 2015 and summer 2016. Prior acupuncture treatments-questionable benefit. Benefit with chiropractic treatments and Ultram. Current benefit with physical therapy 3 . C arpal tunnel syndrome on left - G56.02, utilizing carpal tunnel bracing at night 4 . 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 Possible tendon/ligament injury. Orthopedic evaluation in [place]-recommended against surgery 5 . P rimary osteoarthritis [...] care * Procedure Codes: * Preventive Medicine: [place] PAF (Patient Assessment Form): F all Risk [...] * Follow Up: u candis return to [place] (Reason: arthritis) * Care Plan Details* * Sign off status: Completed true * Provider: Kumar BARRETO MD Date: 0 08/28/2023 Generated for Kristi torres/Stephanie/Jimitting on: 0 12/04/2024 02:54 PM EDT History and Physical Notes * [...]
--- OUTSIDE RECORDS SUMMARY | 2024-09-23 09:00 | XMS_ITS ---
Author Organization The [facility] in [place] Address [address] [place] [address] Care Team Providers Care Administrator Health Care Facility Name Role Phone None, Unknown or Primary Care Provider Unavailab Haritha Hurley Unavailable [phone] REASON FOR VISIT nails lm to cancel ; lm with appt Encounters Encounter Location Date Provider Diagnosis [facility] (PODIATRY) [address] [place] [address] [place] [address] 09/23/2024 Haritha Mistry Plan Of Treatment No Information Progress Notes * Richard BOYKINDOB:1940 ([age] yo M)Acc No.[id number]:09/23/2024 UNLOCKED PROGRESS NOTE Nurse Visit Patient: Richard AMTHEWS Provider: Raul Mistry PA-C :1940 A ge:84 Y S ex:Male Date:09/23/2024 Address:[address] [place], [place] [address] Pcp:Unknown or None Subjective: * Chief Complaints: * 1 . Nails lm to cancel ; lm with appt. * Medical History: Objective: * Vitals: Assessment: Plan: * Treatment: * * Electronic signature of Aundrea Mistry PA-C on 12/04/2024 at 02:55 PM EDT Sign off status: Pending Visit Status: O FF CANC (OFFICE CANCEL) * Provider: Raul Mistry PA-C Date: 0 09/23/2024 Generated for Printi ng/Faisaurag/eTransmitting on: 0 12/04/2024 02:55 PM EDT
--- OUTSIDE RECORDS SUMMARY | 2024-12-04 14:54 | XMS_ITS | Patient Health Record ---
Author Organization [facility] Silvio brown Billing Info Address [address] [place], [place] [address] [address] Care Team Providers Care Undertaker Helper Name Role Phone GINNA BARRETO Unavailable [phone] GINNA BARRETO M.D. Unavailable Unavailable Allergies No [...] day for 30 day(s) Active CO-Q 10 [place]-3 Fish Oil Not-Taking Aspirin 325 MG 1 [...] Problem Status W/U Status Risk Notes Problem [id number] Bursitis of left shoulder (M75.52) Active confirmed Left subacromia l bursa injection from a lateral approach on 08/13/2020-perez kamara Discussed [id number] activities to work on at home Problem [id number] Psoriatic arthritis (L40.50) Active confirmed History of psoriatic arthritis. No active synovitis noted on exam and normal inflammatory markers. Prior treatment with sulfasalazine (? Benefit, expensive), leflunomide (diarrhea). X-rays of the hands and feet showed no specific psoriatic arthritis changes other than possible minimal erosive change right second MCP Problem [id number] Lumbosacral spondylosis without myelopathy (M47.817) Active confirmed MRI of the lumb ar spine from 07/27/2016 showed multilevel DDD/DJD changes with severe spinal stenosis at L2-3 through L5-S1 and biforaminal stenosis L2-3 to L5-S1.. Benefit with tramadol. Physical therapy in [place] in summer 2015 and summer 2016. Prior acupuncture treatments-questi onable benefit. Benefit with chiropractic treatments and Ultram. 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 Sparing of the lateral compartments. Severe narrowing of the lateral patellofemoral compartments left greater than right. Minimal chondrocalcinosis left knee. R TKA on 02/28/20. Problem [id number] Localized primary osteoarthritis of both hands (M19.041) Active confirmed OA of the hands , mainly at the first CMC joint and DIPs. 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 Moderate right and mild to moderate left talonavicular arthritis, mild bilateral arthritic change first MTP joints, moderate bilateral plantar calcaneal spurs Problem [id number] Bursitis of both shoulders (M75.51) Active confirmed bursitis sympto ms intermittently. Benefit with prior injections. Possible biceps tendon tear/ruptures based on exam findings. Preserved range of motion on exam. Doing well today Problem 805034807433942 Carpal tunnel syndrome on left (G56.02) Active confirmed utilizing carp al tunnel bracing at night Problem [id number] Chronic gouty arthritis (M1A.00X0) Active confirmed History [...] MEDICARE [place] PART B [address] [facility] DIANA JACINTO [id number] Richard Black Self - patient is the insured 8 [facility] MEDICARE SUPP [place] [address] [facility] [place] [place] [id number] Richard Black Self - patient is the [...] diabetes type 2 Surgical History Surgery Date(Month/Year) bilateral hip replacement 95 & 96 repeat left hip replacement- Dr Carlos Manuel rahman 2009 cataracts 2017 RT Knee replacement 02/27/2020 Hospitalization History Reason Date(Month/Year) [facility]- Fall 02/27/[address] [facility]- Septic arthritis o f clavicle and breast bone 10/2021
--- OUTSIDE RECORDS SUMMARY | 2024-12-04 14:54 | XMS_ITS | Clinical Summary ---
Author Organization [facility] Address [address] [place] [address] Care Team Providers Care Senior Care Specialist Name Role Phone Zhao Sorensen MD Primary Care Provider [phone] Allergies No known active allergies Medications allopurinol (Zyloprim) 300 mg tablet Take 1 tablet every day by oral route. Active empagliflozin (Jardiance) 25 mg Take 1 tablet every day by oral route. Active furosemide (Lasix) 40 mg tablet 40 mg in the morning. Active glimepiride (Amaryl) 4 mg tablet Take 1 tablet twice a day by oral route. Active hydroCHLOROthiaz isaac (HYDRODiuril) 12.5 mg tablet Take 1 tablet every day by oral route. Active levothyroxine (Synthroid, Levoxyl) 50 mcg tablet 50 mcg in the morning. Active metoprolol tartrate (Lopressor) 25 mg tablet Take 1 tablet twice a day by oral route. Active montelukast (Singulair) 10 mg tablet Take 1 tablet every day by oral route. Active pantoprazole (Protonix) 40 mg EC tabletIndication s:Paroxysmal atrial fibrillation (CMS/HCC) Take 1 tablet (40 mg) by mouth before breakfast. Do not crush, chew, or split. 90 tablet 3 2 10/06/19 28 Active Additional Information Patient not taking.Reported on 10/28/2024 Monse Walker U-300 Insulin 300 unit/mL (1.5 mL) injection Inject under the skin at bedtime. 3 Active apixaban (Eliquis) 2.5 mg tabletIndication s:Paroxysmal atrial fibrillation (CMS/HCC) Take 1 tablet (2.5 mg) by mouth in the morning and at bedtime. 180 tablet 3 3 Active aspirin 81 mg EC tablet Take 81 mg by mouth in the morning. Active atorvastatin (Lipitor) 80 mg tabletIndication s:Coronary artery disease due to lipid rich plaque TAKE 1 TABLET BY MOUTH ONCE DAILY 90 tablet 3 4 Active fluticasone (Flonase) 50 mcg/actuation nasal spray Administer 1 spray into each nostril in the morning. 4 Active rOPINIRole (Requip) 2 mg tablet Take 2 mg by mouth at bedtime. 4 Active traMADol (Ultram) 50 mg tablet Take 50 mg by mouth every 6 (six) hours if needed. 5 Active Active Problems Problem Noted Date Diagnosed Date 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 Varicose veins of right lower extremity with ulc er of ankle 04/27/2024 Cellulitis of toe of right foot 07/30/2023 10/06/2023 Allergic rhinitis 06/27/2023 10/06/2023 Gastroesophageal reflux disease 06/27/2023 10/06/2023 Heart failure 06/27/2023 10/06/2023 Vitamin D deficiency 06/27/2023 10/06/2023 JENARO (acute kidney injury) 02/27/20232023 History of arthritis 10/21/2022 Gout 10/21/2022 Chronic renal impairment 10/21/2022 Back pain 10/21/2022 Type 2 diabetes mellitus 10/21/2022 Assessment & Plan (10/21/2022 11:35 AM EDT): Diabetes is uncontrolled and pt needs better glycemic management - May benefit from a referral to endocrinology and will leave this up to the PCP Hypertension 10/21/2022 Osteoarthritis 10/21/2022 Hyperlipidemia 10/21/2022 Leg ulcer, left, with unspecified severity 10/21 Assessment & Plan (10/21/2022 11:34 AM EDT): Referral to wound care for management of diabetic ulceration of LT lower leg with known uncontrolled DM, PAD, and edema. Pt has appointment made and information provided to him- appt is Monday10/24/22 with wound care. 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 04/23/2022 10/06/2023 Thrombophilia 04/23/2022 10/06/2023 Wound of skin 04/23/2022 10/06/2023 Chronic diastolic heart failure 03/25/2022 Assessment & Plan (10/21/2022 11:40 AM EDT): NYHC II-III currently euvolemic without exacerbation Continue GDMT- lasix 40 mg daily and jardiance Diuretic therapy- lasix decreased from bid to daily per neprhologist Monitor daily weights, I&O, fluid restriction 1.5-2L/day, renal function and electrolytes- Nonrheumatic aortic valve stenosis 03/25/2022 Assessment & Plan (10/21/2022 11:38 AM EDT): Reviewed echo from 10/25/21- Mild AO stenosis Will monitor with routine echcoardiogram D/W pt to call office for increased shortness of breath, palpitations, chest pain, lightheadedness/dizziness or syncope and he voiced understanding PAD (peripheral artery disease) 03/25/2022 Assessment & Plan (10/21/2022 11:36 AM EDT): Continue ASA, eliquis and atorvastatin Mixed hyperglyceridemia 03/25/2022 Dyspnea on exertion 01/24/2022 Ulcer of toe 01/24/2022 Paroxysmal atrial fibrillation 01/24/2022 Assessment & Plan (10/21/2022 11:36 AM EDT): [id number]= 6 age, HTN, CHF, DM and PAD Continue eliquis 2.5 mg bid, and metoprolol 25 mg bid- heart rate well controlled Peripheral arterial occlusive disease 01/24/2022 Aortic valve stenosis 01/24/2022 Acquired hypothyroidism 11/30/2021 Cellulitis of lower leg 11/30/2021 Hyperglycemia 11/30/2021 Right lower lobe pneumonia 11/30/2021 Atrial fibrillation 11/29/2021 Assessment & Plan (10/21/2022 9:24 AM EDT): [id number] score is 4 due to age, hypertension, diabetes. Eliquis anticoagulation Coronary arteriosclerosis 11/29/2021 Assessment & Plan (10/21/2022 11:39 AM EDT): Coronary artery disease is stable without any concerning symptoms continue risk factor modifications- heart healthy diet, regular exercise as tolerated and continue all medications. 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 11/29/2021 Diabetes mellitus 11/29/2021 Peripheral vascular disease 11/29/2021 Psoriasis 07/27/2021 10/06/2023 Tinea pedis 07/27/2021 10/06/2023 Morbid obesity 04/06/2021 10/06/2023 Dietary counseling and surveillance 04/06/2021 Encounter for general adult medical examination without abnormal findings 04/06/2021 Type 2 diabetes mellitus with peripheral angiopa thy 07/03/2020 Uncontrolled type 2 diabetes mellitus 07/29/2019 10/06/2023 Resolved Problems Problem Noted Date Diagnosed Date Resolved Date Mitral valve stenosis and ao rtic valve stenosis 03/25/2022 03/25/2022 Encounters Date Type Department Care Team Description 10/28/2024 11:45 AM EDT Office Visit [facility] [address] [place] [address] Lonny Liu MD PAD (peripheral artery disease) (Primary Dx); PAF (paroxysmal atrial fibrillation) (CMS/HCC); Chronic diastolic heart failure (CMS/HCC); Primary hypertension; Nonrheumatic aortic valve stenosis; Mixed hyperglyceridemia; Stage 3b chronic kidney disease (CMS/HCC) from Last 3 Months Family History Medical History Relation Name Comments Valvular heart disease Father Stroke Mother Relation Name Status Comments Father Mother Social History Tobacco Use Types Packs/Day Years Used Date Smoking Tobacco: Former Cigarettes Smokeless Tobacco: Never Tobacco Cessation:Counseling Given: Not Answered Alcohol Use Standard Drinks/Week Comments Not Currently 0 (1 standard drink = 0.6 oz pur e alcohol) [place] Safety & Environment Answer Date Rec orded Fear of Current or Ex-Partner Not on file Emotionally Abused Not on file 08/10/2023 Physically Abused Not on file 08/10/2023 Sexually Abused Not on file 08/10/2023 Physically or Sexually Abused Not on file Sex and Gender Information Value Date Recorded Sex Assigned at Not on file Legal Sex Male 12:45 AM EDT Gender Identity Not on file Sexual Orientation Not on file Last Filed Vital Signs Vital Sign Reading Time Taken Comments Blood Pressure 126/73 10/28/2024 12:05 PM EDT Pulse 59 10/28/2024 12:05 PM EDT Temperature - - Respiratory Rate 12 10/06/2023 10:47 AM EDT Oxygen Saturation 98% 10/28/2024 12:05 PM EDT Inhaled Oxygen Concentration - - Weight 103 kg (227 lb) 10/28/2024 12:05 PM EDT Height 180.3 cm (5' 11 ) 10/28/2024 12:05 PM EDT Body Mass Index 31.66 10/28/2024 12:05 PM EDT Plan of Treatment Health Maintenance Due Date Last Done Comments Diabetes: Retinopathy Screening 1950 Depression Screening 1953 Diabetes: Urine Protein Screening 1960 Zoster Vaccines (1 of 2) 1959 05/04/2011 Fall Risk Screening 2006 Pneumococcal Vaccine: 50+ Years (3 of 3 - PCV) 04/09/2022 04/09/2021, 07/05/2001 Diabetes: Hemoglobin A1C 08/18/2022 05/20/2022 COVID-19 Vaccine ( season) 2024 05/26/2021, 09/21/2020, 08/20/2020 Medicare Annual Wellness (AWV) 06/27/2024 06/26/2023, 09/09/2021, 05/04/2021, Additional history exists Adult Tetanus 02/27/2033 02/27/2023 Influenza Vaccine Completed 04/04/2024, , 04/01/2022, Additional history exists HIB Vaccines Aged Out No longer eligi ble based on patient's age to complete this topic HPV Vaccines Aged Out No longer eligi ble based on patient's age to complete this topic IPV Vaccines Aged Out No longer eligi ble based on patient's age to complete this topic Meningococcal B Vaccine Aged Out No l onger eligible based on patient's age to complete this topic Meningococcal Vaccine Aged Out No zuleyka jen eligible based on patient's age to complete this topic Rotavirus Vaccines Aged Out No longer eligible based on patient's age to complete this topic Insurance MEDICARE [facility] Care Teams Senior Care Specialist Relationship Specialty Start Date End Date Zhao Sorensen MD [address] [place] [address] PCP - General 02/19/22
--- OUTSIDE RECORDS SUMMARY | 2024-12-04 14:55 | XMS_ITS | Patient Health Record ---
Author Organization [facility] [place] Address [address] [place] [address] Care Team Providers Care Inspector Barrel Name Role Phone None, Unknown or Primary Care Provider Unavailab Haritha Hurley Unavailable [phone] Results Component Value Reference Range Notes XR foot RT min 3V (Not yet r eviewed by provider) Interpretation: Performing Lab: Notes/Report: Source Facility: [place] [address] XRay Report Signed Patient: RICHARD BOYKIN MR#: [id number] : 1940 Acct:[id number] Age/Sex: 83 / M ADM Date: 03/01/24 Loc: Attending Dr: Yuri El D.P.M. Ordering Physician: Yuri El D.P.M. Date of Service: 03/01/24 Procedure(s): XR foot RT min 3V Accession Number(s): [id number] cc: MARJ PIPER ; Yuri El D.P.M. [place] [address] Patient Name: RICHARD BOYKIN MRN: [id number] date: 1940 Sex: M Assigned Patient Location: Current Patient Location: Accession/Order Number: [id number] Exam Date: 03/01/2024 10:30 Report Date: 03/03/2024 [...] M.D. 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 Ordering Physician: Yuri El D.P.M. Date of Service: 03/01/24 Procedure(s): XR foot RT min 3V Accession Number(s): [id number] cc: MARJ PIPER ; Yuri El D.P.M. [place] [address] Patient Name: RICHARD BOYKIN MRN: [id number] date: 1940 Sex: M Assigned Patient Location: Current Patient Location: Accession/Order Numb er: [id number] Exam Date: 03/01/2024 10:30 Report Date: 03/03/2024 [...] M.D. 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: Reason For Referral No Information Problems Problem Type SNOMED Code ICD Code Onset Dates Problem Status W/U Status Risk Notes Problem Foot ulcer due to type 2 diabetes mellitus (7274993479133) Type 2 diabetes mellitus with foot ulcer (E11.621) Active confirmed Problem Venous ulcer of lower extremity due to chronic peripheral venous hypertension (460607619989859 ) Chronic venous hypertension (idiopathic) with ulcer of left lower extremity (I87.312) Active confirmed Problem Chronic ulcer of skin of lower leg (disorder) (390575747801596 04) Non-pressure chronic ulcer of other part of left lower leg limited to breakdown of skin (L97.821) Active confirmed Problem Chronic foot ulcer, limited to breakdown of skin, right (L97.511) Active confirmed Problem Non-prs chr ulcer oth prt l low leg limited to brkdwn skin (L97.821) Active confirmed Problem Foot ulcer due to type 2 diabetes mellitus (6642841084506) 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 (E11.621) Active confirmed Problem Skin ulcer of left pretibial region with fat layer exposed (L97.822) Active confirmed Problem Chronic ulcer of right foot (disorder) (568765891439113 00) Chronic ulcer of right foot with fat layer exposed (L97.512) Active confirmed Vital Signs Heart Rate 89 /min 06/24/2024 Temperature 97.8 degrees Fahrenheit 06/24/2024 Oximetry 99 % 06/24/2024 Encounters Encounter Location Date Provider Diagnosis [facility] (PODI[facility]) [address] [place] [address] [place] [address] 06/24/2024 Haritha Mistry Diabetes mellitus with foot [...] End Date MEDICARE [place] [address] [place] [address] [phone] [id number] Richard Boykin Self - patient is the insured [facility] [address] [place] [address] [id number] Richard Boykin Self - patient is the insured
--- OUTSIDE RECORDS SUMMARY | 2024-12-04 14:55 | XMS_ITS | Data Portability ---
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 Lab HbA1c (hemoglobin A1c), blood 2023 [facility], [address] [place], [address], 4 07:10:35 vitamin D, 25-hydroxy, total, serum 2023 024 [facility], [address] [place], [address], 4 07:10:36 Referral None recorded. Procedures None recorded. Surgeries None recorded. Imaging None recorded. Medication Orders glimepiride 4 mg tablet 2023 024 [facility], [facility] [address], [facility] [address], [place], [place], [id number], 4 17:13:18 Jardiance 25 mg tablet 2023 024 [facility], [address], [address], [place], [place], [id number], 4 17:13:18 Toujeo Max U-300 SoloStar 300 unit/mL (3 mL) subcutaneou s insulin pen 2023 024 [facility], [address], [address], [place], [place], [id number], 4 17:13:18 Jardiance 25 mg tablet 2023 024 [facility], [address], [address], [place], [place], [id number], 4 09:23:33 Toujeo Max U-300 SoloStar 300 unit/mL (3 mL) subcutaneou s insulin pen 2023 024 [email or web address] 146 [facility], [address], [address], [place], [place], [id number], 4 14:21:24 Eliquis 5 mg tablet 2023 024 [facility], [address], [address], [place], [place], [id number], 4 09:23:33 allopurinol 300 mg tablet 2023 024 MARIBELL [facility], [address], [address], [place], [place], [id number], 4 10:03:15 metoprolol tartrate 25 mg tablet 2023 024 MARIBELL [facility], [address], [address], [place], [place], [id number], 4 10:03:12 montelukast 10 mg tablet 2023 024 MARIBELL [facility], [address], [address], [place], [place], [id number], 4 10:03:14 tramadol 50 mg tablet 2023 024 MARIB[facility]LL [facility], [address], [address], [place], [place], [id number], 4 10:03:16 Claritin 10 mg tablet 2023 024 MARIB[facility]LL [facility], [address], [address], [place], [place], [id number], 4 13:41:06 ropinirole 2 mg tablet 2023 024 MARIBELL [facility], [address], [address], [place], [place], [id number], 4 10:03:13 glimepiride 4 mg tablet 2023 024 MARIBELL [facility], [address], [address], [place], [place], [id number], 4 10:03:13 Jardiance 25 mg tablet 2023 024 MARIBELL [facility], [address], [address], [place], [place], [id number], 4 10:03:08 Touitalo SoloStar U-300 Insulin 300 unit/mL (1.5 mL) subcutaneou s pen 2023 024 [email or web address] 146 [facility], [address], [address], [place], [place], [id number], 4 13:10:11 Eliquis 5 mg tablet 2023 024 MARIBELL [facility], [address], [address], [place], [place], [id number], 4 10:03:09 furosemide 40 mg tablet 2023 024 MARIBELL [facility], [address], [address], [place], [place], [id number], 4 10:03:14 lisinopril 2.5 mg tablet 2023 024 MARIBELL [facility], [address], [address], [place], [place], [id number], 4 10:03:10 lisinopril 10 mg-hydrochl orothiazide 12.5 mg tablet 2023 024 MARIBELL [facility], [address], [address], [place], [place], [id number], 4 13:57:00 pantoprazol e 40 mg tablet,dulce yed release 2023 024 MARIBELL [facility], [address], [address], [place], [place], [id number], 4 10:03:14 levothyroxi ne 50 mcg tablet 2023 024 MARIBELL [facility], [address], [address], [place], [place], [id number], 4 10:03:11 allopurinol 300 mg tablet 2022 023 [facility], [address], [address], [place], [place], [id number], 3 12:59:14 hydrochloro thiazide 12.5 mg tablet 2022 023 [facility], [address], [address], [place], [place], [id number], 4 13:50:31 metoprolol tartrate 25 mg tablet 2022 023 [email or web address] [facility], [address], [address], [place], [place], [id number], 3 12:59:14 montelukast 10 mg tablet 2022 023 [facility], [address], [address], [place], [place], [id number], 3 12:59:14 ropinirole 2 mg tablet 2022 023 [facility], [address], [address], [place], [place], [id number], 3 12:59:14 glimepiride 4 mg tablet 2022 023 [facility], [address], [address], [place], [place], [id number], 3 12:59:14 Jardiance 25 mg tablet 2022 023 [email or web address] [facility], [address], [address], [place], [place], [id number], 3 12:59:14 Toujeo Max U-300 SoloStar 300 unit/mL (3 mL) subcutaneou s insulin pen 2022 023 rraitz [facility], [address], [address], [place], [place], [id number], 3 12:59:14 Eliquis 5 mg tablet 2022 023 [facility], [address], [address], [place], [place], [id number], 3 12:59:14 furosemide 40 mg tablet 2022 023 [facility], [address], [place], [place], [id number], 3 12:59:14 levothyroxi ne 50 mcg tablet 2022 023 [facility], [address], [address], [place], [place], [id number], 3 12:59:14 lisinopril 2.5 mg tablet 2022 023 [facility], [address] [place] [address], [address], [place], [place], [id number], 3 12:59:14 Patient TargetsNo targets recorded. Patient Instructions Encounter Date Encounter Id Patient Instructions Last Modified By Organization Details Last Modified Time 06/26/2023 [id number] type 2 diabetes: care instructions Not available 06/27/2023 10:03:04 atrial fibrillation: care instructions Not available 06/27/2023 10:03:05 hypothyroidism: care instructions Not available 06/27/2023 10:03:05 09/07/2023 [id number] type 2 diabetes: care instructions Not available 09/07/2023 09:23:33 04/25/2024 [id number] high cholesterol : care instructions Not available [...] with diabe susan: <7.0 Not Available [facility] [address] [facility], [place], [address], 07/08/2023 07:10:35 07/07/19 24 07/08/2023 VITAM IN [...] Endoc rine Socie ty went on to [facility] er defin e vitam in D insuf ficie ncy as a level betwe en 21 and 29 ng/mL (2). 1. IOM (Inst itute of Medic ine). 2009. Dieta ry refer ence intak es for calci um and D. Clay hutchinson [place]: [facility] . 2. Nury ayala [place], [place] holder [place], Jessica off-F jf i HANSON, et al. Evalu ation , treat ment, and preve ntion of vitam in D defic iency : an Endoc rine Socie ty clini fernando pract ice guide line. JCEM. 2010; 96(7) :1911 -30. Not Available [facility] [address] [facility], [place], [address], 07/08/2023 07:10:36 Result Notes None recorded. Problems Name Problem SNOMED Code Status Onset Date Resolution Date Notes Provider Name and Address Organization Details Recorded Time Gout 85411957 Active 2021 Not Available [facility] 4 03:27:48 Tinea pedis 7952228 Active 2021 Not Available [facility] 4 03:27:48 Psoriasis 6605757 Active 2021 Not Available [facility] 4 03:27:48 Disorder of thyroid gland 63516563 Active 2021 Not Available [facility] 4 03:27:47 Dizziness 683881778 Active 2021 Not Available [facility] 4 03:27:47 Wound of skin 197485616 Active 2021 Not Available [facility] 4 03:27:47 Atrial fibrillat ion 89616491 Active 2021 Not Available [facility] 4 03:27:48 Thromboph bj 161870104 Active 2021 Not Available [facility] 4 03:27:47 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 510817306 Active 2021 Not Available [facility] 4 03:27:47 Morbid obesity 578527423 Active 2021 Not Available [facility] 4 03:27:47 Periphera l vascular disease 418835411 Active 2021 Not Available [facility] 4 03:27:47 Muscle weakness 56335228 Active 2021 Not Available [facility] 4 03:27:47 Chronic kidney disease stage 3B 128274178 Active 2021 Not Available [facility] 4 03:27:48 Osteoarth ritis 359741775 Active 2021 Not Available [facility] 4 03:27:47 Immunodef iciency disorder 719269316 Active 2022 Not Available [facility] 4 03:27:47 Idiopathi c periphera l neuropath y 86386709 Active 2022 Not Available [facility] 4 03:27:47 Vertigo 149016677 Active 2022 Not Available [facility] 4 03:27:47 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 41725072243 9109 Active 2022 Not Available [facility] 4 03:27:47 Fatigue 02922795 Active 2022 [facility] Available [facility] 4 03:27:48 Allergic rhinitis 25754556 Active 2023 Not Available [facility] 4 03:27:48 Hypothyro idism 78596220 Active 2023 Not Available [facility] 4 03:27:48 Vitamin D deficienc y 24500901 Active 2023 Not Available [facility] 4 03:27:47 Hyperglyc emia 62645541 Active 2023 Not Available [facility] 4 03:27:48 Heart failure 73139126 Active 2023 Not Available [facility] 4 03:27:48 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 mellitus 99111484658 8 Active 2023 Not Available [facility] 4 03:27:48 Gastroeso phageal reflux disease 652372996 Active 2023 Not Available [facility] 4 03:27:47 Celluliti s of toe of right foot 53528582928 609930 Active 2023 Not Available [facility] 4 03:27:47 Periphera l circulato ry disorder due to type 2 diabetes mellitus 071527833 Active 2023 Not Available [facility] 4 03:27:48 Chronic ulcer of skin of lower leg 00818964615 599438 Active 2023 Edgar Ramos MD [address], [place], [address] , [facility], [facility] 4 13:53:48 Edema of lower extremity 437804261 Active 2023 Edgar Ramos MD [address], [place], [address] , [facility], [facility] 4 13:53:58 Chronic ulcer of ankle 278196103 Active 2023 Edgar Ramos MD [address], [place], [address] , [facility], [facility] 4 13:54:18 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 Active 2023 MD Deisi Krishnamurthy[address], [place], [address] , [facility] Physician [facility], [facility] 4 13:54:25 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 625500096 Active 2023 MD Deisi Krishnamurthy[address], [place], [address] , [facility] Physician [facility], [facility] 4 13:55:05 Chronic ulcer of foot 143040105 Active 2023 MD Deisi Krishnamurthy[address], [place], [address] , [facility]ician [facility], [facility] 4 13:55:06 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 MD Farzaneh Krishnamurthy [address], [place], [address] , [facility], [facility] 4 13:55:08 Type 2 diabetes mellitus 21325129 Active 2023 MD Farzaneh Krishnamurthy [address], [place], [address] , [facility]ician [facility], [facility] 4 13:55:13 Counselin g Active 2023 MD Deisi Krishnamurthy[address], [place], [address] , [facility] Physician [facility], [facility] 4 13:55:17 Hyperlipi demia 47956238 Active 2023 MD Farzaneh Krishnamurthy [address], [place], [address] , [facility], [facility] 4 13:57:52 Type 2 diabetes mellitus 71326942 Completed 201806/20/2019 MD Farzaneh Krishnamurthy [address], [place], [address] , [facility], [place] 4 13:55:13 Body mass index 40+ - severely obese 207990636 Active 2018 Not Available [facility] 4 03:27:48 Essential hypertens ion 96737407 Active 2018 Not Available [facility] 4 03:27:48 Uncontrol led type 2 diabetes mellitus 185513995 Active 2019 Not Available [facility] 4 03:27:48 Body mass index 30+ - obesity 642586323 Completed 201908/24/2020 Edgar Ramos MD [address] [facility] [address], [place], [address] , [facility] Physician [facility], [place] 1 18:32:07 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 776534580 Active 2020 Not Available [facility] 4 03:27:47 Restless legs 80689743 Active 2020 Not Available [facility] 4 03:27:47 Influenza vaccine needed 04791116501 06 Active 2020 Not Available [facility] 4 03:27:47 Diet education Active 2020 Not Available [facility] 4 03:27:47 Obesity 001536296 Active 2020 Not Available [facility] 4 03:27:48 Body mass index 30+ - obesity 733317437 Active 2020 Not Available [facility] 4 03:27:47 Adult health examinati on Active 2020 Not Available [facility] 4 03:27:47 Notes:Some problems listed i n Documents: #[id number], #[id number], #[id number], #[id number] could not be added to this patient's chart. Please review these documents and add these problems to the patient's chart manually as needed. Problem Notes None recorded. Procedures Surgical History Date Name Laterality Status Provider Name and Address Organization Details Recorded Time 06/26/19 24 Quality Functional Assessment completed Tami Adler [facility], [facility] 06/26/2023 12:01:17 06/26/19 24 Quality Medication Reviewed and Updated completed Tami Adler [facility], [facility] 06/26/2023 12:01:17 06/26/19 24 Medicare AWV Questionnaire completed Tami Adler [facility], [facility] 06/26/2023 12:01:25 06/26/19 24 Quality BMI with follow up completed Tami Adler [facility], [facility] 06/26/2023 12:01:17 06/26/19 24 Quality Advanced Care Planning completed Tami Adler [facility], [facility] 06/26/2023 12:01:17 06/26/19 24 Quality Incontinence Screening completed Tami Adler [facility], [facility] 06/26/2023 12:01:17 06/26/19 24 Medicare AWV-Screening Schedule completed Tami Adler [facility], [facility] 06/26/2023 12:01:17 06/26/19 24 Quality Fall Risk Assessment completed Tami Adler [facility], [facility] 06/26/2023 12:01:17 10/11/19 23 Quality Medication Reviewed and Updated completed Jeane Wheatley [facility], [facility] 10/10/2022 15:21:28 10/11/19 23 Quality Pain Screening positive Pain completed Jeane Wheatley [facility], [facility] 10/10/2022 15:23:22 08/19/19 23 Quality Pain Screening No Pain completed Henrik Simmons [facility], [facility] 08/18/2022 07:54:07 08/19/19 23 Quality Medication Reviewed and Updated completed Henrik Simmons [facility], [facility] 08/18/2022 07:54:06 06/24/19 23 Quality Pain Screening No Pain completed Henrik Simmons [facility], [facility] 06/23/2022 13:12:32 06/24/19 23 Quality Medication Reviewed and Updated completed Henrik Simmons [facility], [facility] 06/23/2022 13:12:23 06/24/19 23 Quality Tobacco Non- User [facility], [facility] 06/23/2022 13:12:39 06/24/19 23 ophthalmic examination and evaluation completed Jeane Wheatley [facility], [facility] 06/25/2022 09:18:47 06/15/20 22 Quality Medication Reviewed and Updated completed [facility], [facility] 06/15/2022 12:43:13 06/15/20 22 Quality Pain Screening positive Pain completed [facility], [facility] 06/15/2022 13:40:36 05/20/20 22 Quality Medication Reviewed and Updated completed [facility] Phys[facility], [facility] 05/19/2022 13:02:54 05/20/20 22 Quality Fall Risk Assessment Low Risk completed [facility], [facility] 05/19/2022 13:02:53 05/20/20 22 Quality Pain Screening positive Pain completed [facility] Phys[facility], [facility] 05/20/2022 09:08:34 05/20/20 22 hemoglobin A1c measurement completed [facility], [facility] 06/03/2022 08:37:59 05/20/20 22 urine microalbumin/crea tinine ratio measurement completed [facility], [facility] 06/03/2022 08:39:38 04/20/20 22 Quality Functional Assessment completed [facility], [facility] 04/20/2022 07:49:52 04/20/20 22 Quality Medication Reviewed and Updated completed [facility] Physician [facility], [facility] 04/20/2022 07:49:51 04/20/20 22 Quality Fall Risk Assessment Low Risk completed [facility], [facility] 04/20/2022 07:50:04 04/20/20 22 Quality Pain Screening positive Pain completed [facility] Physician [facility], [facility] 04/20/2022 11:33:31 04/12/20 22 ophthalmic examination and evaluation completed Jeane Wheatley [facility], [facility] 04/23/2022 11:31:52 09/10/19 Quality Functional Assessment completed [facility], [facility] 09/07/2021 19:46:14 09/10/19 Quality Medication Reviewed and Updated completed [facility], [facility] 09/07/2021 19:46:14 09/10/19 Quality (DM or HTN ) BP Systolic < 130 completed [facility], [facility] 09/07/2021 19:47:39 09/10/19 Quality BMI with follow up completed [facility], [facility] 09/07/2021 19:46:14 09/10/19 Quality Advanced Care Planning completed [facility], [facility] 09/07/2021 19:46:14 09/10/19 Quality Incontinence Screening completed [facility], [facility] 09/07/2021 19:46:14 09/10/19 Medicare AWV - Screening Schedule completed [facility], [facility] 09/07/2021 19:46:14 09/10/19 Quality Fall Risk Assessment completed [facility], [facility] 09/07/2021 19:46:14 08/12/19 Quality Medication Reviewed and Updated completed [facility], [facility] 08/08/2021 15:29:10 08/12/19 Quality (DM or HTN ) BP Systolic < 130 completed [facility], [facility] 08/08/2021 15:29:08 08/12/19 22 Quality Pain Screening positive Pain completed [facility], [facility] 08/08/2021 15:29:21 07/12/19 diabetic retinopathy screening completed [facility], [facility] 07/13/2021 12:36:37 05/04/20 Quality Functional Assessment completed [facility], [facility] 05/03/2021 10:04:49 05/04/20 21 Quality Medication Reviewed and Updated completed [facility], [facility] 05/03/2021 10:04:49 05/04/20 21 Quality Fall Risk Assessment Low Risk completed [facility], [facility] 05/03/2021 10:04:49 05/04/20 21 Quality BMI with follow up completed [facility], [facility] 05/03/2021 10:04:49 05/04/20 21 Quality Advanced Care Planning completed [facility], [facility] 05/03/2021 10:04:49 05/04/20 21 Quality Incontinence Screening completed [facility], [facility] 05/03/2021 10:04:49 05/04/20 21 Medicare AWV - Screening Schedule completed [facility], [facility] 05/03/2021 10:04:49 04/06/20 21 Quality Functional Assessment completed [facility], [facility] 03/23/2021 19:15:31 04/06/20 21 Quality Medication Reviewed and Updated completed [facility], [facility] 03/23/2021 19:15:31 04/06/20 21 Quality Fall Risk Assessment Low Risk completed [facility], [facility] 03/23/2021 19:15:31 04/06/20 21 Quality BMI with follow up completed [facility], [facility] 03/23/2021 19:15:31 04/06/20 21 Quality Advanced Care Planning completed [facility], [facility] 03/23/2021 19:15:31 04/06/20 21 Quality Incontinence Screening completed [facility], [facility] 03/23/2021 19:15:31 04/06/20 21 Medicare AWV - Screening Schedule completed [facility], [facility] 03/23/2021 19:15:31 08/25/19 21 Quality Functional Assessment completed Shikha Garcia LPN [facility], [facility] 08/24/2020 10:13:58 08/25/19 21 Quality Medication Reviewed and Updated completed Shikha Garcia [facility], [facility] 08/24/2020 10:13:58 08/25/19 21 Quality Fall Risk Assessment Low Risk completed Shikha Garcia [facility] 08/24/2020 10:13:58 08/25/19 21 Quality BMI with follow up completed Shikha Garcia [facility] 08/24/2020 10:13:58 08/25/19 21 Quality Advanced Care Planning completed Shikha Garcia [facility] 08/24/2020 10:13:58 08/25/19 21 Quality Incontinence Screening completed Shikha Garcia [employer] [facility] 08/24/2020 10:13:58 08/25/19 21 Medicare AWV - Screening Schedule completed Shikha Garcia [facility] 08/24/2020 10:13:58 03/19/20 19 Knee surgery completed Jeane Wheatley [facility] 04/06/2021 16:08:33 06/19/19 19 colonoscopy completed Edgar Ramos MD [address], [address], [facility] 04/06/2021 18:28:22 06/19/19 09 Joint replacement, other completed Henrik Simmons [facility] 05/19/2022 13:03:33 Imaging Results None recorded. Procedure [...] [degF] 18 /min 177.8 cm 33.9 kg/m2 987123. 95 g 77 /min 97 % 97 % 138 mm[Hg] 74 mm[Hg] Francesca Yanez [facility], [facility] 4 15:34:17 Date Recorded Body height Body mass index (BMI) Body weight Body temperature Heart rate Respiratory rate Oxygen saturation Oxygen saturation in Arterial blood by Pulse oximetry Systolic blood pressure Diastolic blood pressure Provider Name and Address Organization Details Last Updated DateTime 4 177.8 cm 34 kg/m2 001525. 11 g 97.4 [degF] 40 /min 18 /min 91 % 91 % 152 mm[Hg] 98 mm[Hg] Tami Adler [facility], [facility] 4 10:34:11 Date Recorded Body height Body mass index (BMI) Body weight Body temperature Respiratory rate Heart rate Oxygen saturation Oxygen saturation in Arterial blood by Pulse oximetry Systolic blood pressure Diastolic blood pressure Provider Name and Address Organization Details Last Updated DateTime 4 177.8 cm 33.7 kg/m2 627005. 21 g 97 [degF] 19 /min 70 /min 93 % 93 % 164 mm[Hg] 88 mm[Hg] Tami Adler [facility], [facility] 4 07:52:35 Date Recorded Body height Body mass index (BMI) Body weight Body temperature Heart rate Oxygen saturation Oxygen saturation in Arterial blood by Pulse oximetry Systolic blood pressure Diastolic blood pressure Provider Name and Address Organization Details Last Updated DateTime 3 177.8 cm 34.3 kg/m2 177307. 01 g 97.2 [degF] 77 /min 95 % 95 % 126 mm[Hg] 74 mm[Hg] Jeane Wheatley [facility], [facility] 3 15:23:01 Date Recorded Body height Body mass index (BMI) Body weight Body temperature Heart rate Oxygen saturation Oxygen saturation in Arterial blood by Pulse oximetry Systolic blood pressure Diastolic blood pressure Provider Name and Address Organization Details Last Updated DateTime 4 177.8 cm 32.3 kg/m2 132733. 72 g 98.2 [degF] 79 /min 98 % 98 % 128 mm[Hg] 60 mm[Hg] Lala Flores [facility], [facility] 4 13:28:24 Social History Question Answer Notes LastModified by Organizat ion Details LastModified Time Tobacco Smoking Status Never Smoker Yumi dailey [facility], [facility] 04/17/2019 11:10:25 Do You Have An Advance Directive? Yes [email or web address] Information not available 05/08/2019 Is Your Home Air Conditioned? Yes [email or web address] Information not available 06/26/2023 Are You Currently Sexually Active With Anyone Who Has Traveled (within The Last 12 Weeks) To A Zika-affected Area? No [email or web address] Information not available 06/26/2023 Do You Wear A Helmet When Biking? No [email or web address] Information not available 06/26/2023 Is Blood Transfusion Acceptable In An Emergency? Yes [email or web address] Information not available 09/09/2021 What Is Your Level Of Caffeine Consumption? Occasional Information not available 05/08/2019 In The 14 Days Before Symptom Onset, Have You Had Close Contact With A Laboratory-confi rmed COVID-19 While That Case Was Ill? No [email or web address] Information not available 06/26/2023 In The 14 Days Before Symptom Onset, Have You Had Close Contact With A Person Who Is Under Investigation For COVID-19 While That Person Was Ill? No [email or web address] Information not available 06/26/2023 Have You Been To An Area Known To Be High Risk For COVID-19? No [email or web address] Information not available 06/26/2023 What Type Of Diet Are You Following? DIABETIC [email or web address] Information not available 06/26/2023 Which Illicit Or Recreational Drugs Have You Used? None Information not available 06/20/2019 Have You Processed Blood Or Body Fluids From An Ebola Virus Disease Patient Without Appropriate PPE? No [email or web address] Information not available 06/26/2023 Do You Reside In Or Have You Traveled To An Area Where Ebola Virus Transmission Is Active? No [email or web address] Information not available 06/26/2023 Education 2 Year College [email or web address] Informatio n not available 06/26/2023 Do You Have An Electrostatic Air Filter? No [email or web address] Information not available 06/26/2023 Have There Been Any Changes To Your Family Or Social Situation? No [email or web address] Information not available 06/26/2023 What Is The Fluoride Status Of Your Home? Unknown [email or web address] Information not available 06/26/2023 Are There Any Guns Present In Your Home? No [email or web address] Information not available 06/26/2023 Which Of Your Hands Is Dominant? Right [email or web address] Information not available 06/26/2023 Do You Have A Humidifier? No [email or web address] Information not available 06/26/2023 Where Do You Live? SingleLevelHouse [email or web address] Information not available 06/26/2023 Alcohol Use Less Than 1 Per Month Information not available 04/06/2021 Do You Smoke? No Informatio n not available 04/06/2021 Year Quit Tobacco Use Never Information not available 04/06/2021 Marital Status [email or web address] Informatio n not available 06/26/2023 Do You Have A Medical Power Of Oil Dispenser? Yes [email or web address] Information not available 06/26/2023 What Was The Date Of Your Most Recent Tobacco Screening? 06/26/2023 [email or web address] Information not available 06/26/2023 What Is Your Relationship Status? [email or web address] Information not available 05/04/2021 Do You Use Your Seat Belt Or Car Seat Routinely? Yes [email or web address] Information not available 06/26/2023 Are You Sexually Active? No Information not available 08/24/2020 Do You Have Smoke And Carbon Monoxide Detectors In Your Home? Yes Information not available 06/26/2023 Are You Passively Exposed To Smoke? No [email or web address] Information not available 06/26/2023 Are There Any Smokers In Your House? No [email or web address] Information not available 06/26/2023 Do You Use Sunscreen Routinely? No [email or web address] Information not available 06/26/2023 Has Tobacco Cessation Counseling Been Provided? No [email or web address] Information not available 06/26/2023 How Many Years Have You Smoked Tobacco? 0 Information not available 08/24/2020 Do You Have Any Dietary Restrictions? No Information not available 06/26/2023 Sex: Male Functional Status Question Answer Note LastModified by Organizat ion Details LastModified Time Do you use any illicit or recreational drugs? No [email or web address] Information not available 06/26/2023 Do you or have you ever used any other forms of tobacco or nicotine? No [email or web address] Information not available 06/26/2023 What is your level of alcohol consumption? None Information not available 04/17/2019 Do you or have you ever used smokeless tobacco? Never used smokeless tobacco Information not available 05/08/2019 Are you currently employed? No [email or web address] Information not available 06/26/2023 Have you been exposed to chemicals or toxins? No [email or web address] Information not available 06/26/2023 Do you have transportation difficulties? No [email or web address] Information not available 06/26/2023 Are you able to care for yourself? Yes [email or web address] Information n ot available 06/26/2023 What is your exercise level? Moderate [email or web address] Information not available 06/26/2023 Mental Status None recorded. Family History Relationship Description Onset Age of this Age Resolved Age Notes LastModified by Organization Details LastModified Time Father Arthritis [email or web address] Not availa ble 05/08/2019 10:42:11 Father Diabetes mellitus [email or web address] Not available 05/08 10:42:11 Medical History Condition Response Cancer (location) N Gout Y Other N Thyroid Disease N Kidney Stones N Measles/Mumps N Emphysema/COPD N Sexually Transmitted Disease N Depression N Prostate Problems N Vascular Disease N Rash/Skin Condition N Amputation (location) N Parkinson's N Paralysis N Headaches/Migraines N Cardiac Pacemaker/defibrillator N Nerve Damage / Neuropathy N Arthritis Y Sleep disorder/Insomnia N Infertility N Heart disease / Heart Attack N Crohn's Disease N HIV/AIDS N Stroke/TIA N Colon Problems N High Cholesterol N Serious Injuries N Kidney Disease N Memory Loss/Alzheimer's N Gallbladder disease N High blood pressure Y Congestive heart failure N Falls N Alcohol Overuse N Blood Thinner Treatment N Hormone Replacement N Nervous Breakdown N Burger's Esophagus N Anemia N Urinary Problems N Colon Polyps N Gastritis N Hospitalizations (other than operations) N Back pain Y Diabetes Y Rheumatic Fever N Bleeding Disorder N Cardiac Arrhythmias /irregular heart rat e N Osteopenia/Osteoporosis N Anxiety/Stress N Asthma N Vision Problems N Erectile / Sexual Dysfunction N Ostomies (location) N Seizures N Jaundice N Sleep Apnea N Hepatitis N Past Reacton to Contrast Media N Cirrhosis N GERD/Ulcer N Chicken Pox N Allergies (other than meds) Y Immunizations Vaccine Type Date Status Note Provider Nam e and Address Organization Details Recorded Time pneumococcal polysaccharide PPV23 2 completed Not Available [facility] 08/04/2023 03:27:48 Influenza, split virus, trivalent, preservative 5 completed Not Available [facility] 08/04/2023 03:27:48 Influenza, high-dose, trivalent, PF 6 completed Not Available [facility] 08/04/2023 03:27:48 zoster live 1 completed Not Available [facility] 08/04/2023 03:27:48 Influenza, split virus, quadrivalent, preservative 0 completed Not Available [facility] 08/04/2023 03:27:48 COVID-19, mRNA, LNP-S, PF, 100 mcg/0.5mL dose or 50 mcg/0.25mL dose 1 completed Not Available [facility] 08/04/2023 03:27:48 COVID-19, mRNA, LNP-S, PF, 100 mcg/0.5mL dose or 50 mcg/0.25mL dose 1 completed Not Available [facility] 08/04/2023 03:27:48 COVID-19, mRNA, LNP-S, PF, 100 mcg/0.5mL dose or 50 mcg/0.25mL dose 1 completed Not Available [facility] 08/04/2023 03:27:48 Influenza, adjuvanted, quadrivalent, PF 1 [facility] 04/06/2021 17:27:33 pneumococcal polysaccharide PPV23 1 completed Jeane dailey [facility] [employer] [facility], [facility] 04/09/2021 07:27:56 Past Encounters Encounter ID Performer Location Encounter Start Date Encounter Closed Date Diagnosis/Indication Diagnosis SNOMED-CT Code Diagnosis ICD10 Code Diagnosis Note [id number] Edgar Ramos MD [facility] [address] [place] [address] 04/17/2019 10:35:50 04/17/2019 12:08:28 Body mass index 40+ - severely obese 431773297 Z68.41 weight issues discussed and informatio n on weight loss given. needs follow up on weight control as scheduled. Education handout on diets given. Exercise counseling done. Will arrange referral for dietitian, nutritioni st, Physical/o ccupationa l therapy as needed or desired. Also will consider pharmaceut ical and supplement al interventi ons Morbid obesity 487984432 E66.01 see BMI above for details.. Chronicall y he appears likely [facility] Diet education 38442767 Z71.3 as above Type 2 isaias betes mellitus 26218851 E11.21 This sugar will be watched his levels are good. We are going to cut his Jardiance in half he is going to watch his diet Peripheral vascular disease 665057524 I73.9 His Nizoral shampoo every fifth day I advised him how to do it [id number] Edgar Ramos MD [facility] [place] [address] [place] [address] 05/08/2019 10:24:41 05/08/2019 12:07:03 Essential hypertension 79322885 I10 His blood pressure is stable he is monitoring his pressure Diet education 89231145 Z71.3 as above Body mass index 40+ - severely obese 069567606 Z68.41 weight issues discussed and informatio n on weight loss given. needs follow up on weight control as scheduled. Education handout on diets given. Exercise counseling done. Will arrange referral for dietitian, nutritioni st, Physical/o ccupationa l therapy as needed or desired. Also will consider pharmaceut ical and supplement al interventi ons Morbid obesity 307691701 E66.01 see BMI above for details. Tintaisha pedis 9400154 B35. 3 We are going to add Diflucan to his treatment. He does take a little bit of tramadol but not enough to interfere with the Diflucan I did give him 20 days. We should see this patient back within about a month's time he will continue to see his rheumatolo gy Type 2 isaias betes mellitus 76927822 E11.21 This sugar will be watched his levels are good. We are going to cut his Jardiance in half he is going to watch his diet [id number] Edgar Ramos MD [facility] [place] [address] [place] [address] 06/20/2019 14:36:03 06/20/2019 15:36:18 Body mass index 40+ - severely obese 160671202 Z68.41 weight issues discussed and informatio n on weight loss given. needs follow up on weight control as scheduled. Education handout on diets given. Exercise counseling done. Will arrange referral for dietitian, nutritioni st, Physical/o ccupationa l therapy as needed or desired. Also will consider pharmaceut ical and supplement al interventi ons Type 2 isaias betes mellitus 47277364 E11.21 This sugar will be watched his levels are good. We are going to cut his Jardiance in half he is going to watch his diet I want to try to control the diet without getting his sugar too low Tinea pedis 4007750 B35. 3 He is going to finish up his Diflucan he will also continue his every 5 or 6 days topical Nizoral treatment Peripheral vascular disease 112113799 I73.9 I am hoping to keep his cholestero l low and also his A1c low have him continue walking hopefully he can bring his weight down little bit Uncontroll ed type 2 diabetes mellitus 920605556 E11.65 His diabetes by itself is uncontroll ed is all over the place of course he does not watch his diet too well Type 2 isaias betes mellitus with peripheral angiopathy 521137550 E11.51 He has comorbidit y of his diabetes and his peripheral vascular disease [id number] MD MARCELINO Krishnamurthy [address] [place] [address] 07/29/2019 15:27:23 07/29/2019 17:20:34 Body mass index 30+ - obesity 821261940 Z68.39 Uncontroll ed type 2 diabetes mellitus 578391308 E11.65 His diabetes by itself is uncontroll [...] sugar still take care of cost Gout 71361145 M10.9 He is watching gouty foods and he is avoiding nose we did refill his allopurino l today [id number] MD MARCELINO Krishnamurthy [facility] [address] [place] [address] 09/04/2019 10:25:58 09/04/2019 12:19:01 Tinea pedis 4478648 B35.3 This patient is still using about every 10 to 12 days a treatment with Nizoral shampoo and is working beautifull y for him. Uncontroll ed type 2 diabetes mellitus 179408937 E11.65 This patient's sugars are dramatical ly better he is running great between 95 and 130. Were to try lab rise little bit higher and cut the Jardiance down to 1/2 tablet of the 10 mg. I will see him in the fall I am extremely pleased with his ownership of disease [id number] Edgar Ramos MD [facility] [place] [address] [place] [address] 05/04/2020 14:36:18 05/04/2020 17:03:23 Essential hypertension 75623893 I10 His blood pressure is stable he is monitoring his pressure blood pressures are acceptable Uncontroll ed type 2 diabetes mellitus 727284218 E11.65 Patient sugars are running pretty much all over the place we need to get an A1c because his last A1c was 8.4 History of total knee arthroplasty 3579273976 105 Z96.659 His knee is actually doing well that is actually the best part of it [id number] Edgar Ramos MD [facility] [place] [address] [place] [address] 06/22/2020 10:24:53 06/22/2020 12:11:26 Essential hypertension 56563877 I10 His blood pressure is stable he is monitoring his pressure blood pressures are acceptable Uncontroll ed type 2 diabetes mellitus 791571834 E11.65 Patient sugars are running pretty much all over the place we need to get an A1c because his last A1c was 8.4 Restless legs 00489234 G 25.81 Screening for malignant neoplasm of prostate 291926149 Z12.5 [id number] Edgar Ramos MD [facility] [place] [address] [place] [address] 07/03/2020 09:14:07 07/03/2020 10:43:52 Uncontrolled type 2 diabetes mellitus 457434712 E11.65 Patient sugars are running pretty much all over the place we need to get an A1c because his last A1c was 8.4. For now we will get and try to bring his postprandi al sugars down a little better by increasing his Jardiance from 10-25 Restless legs 50147997 G 25.81 We refilled his ropinirole he is taking 2 mg twice daily Renewal of prescription 349143285 Z76.0 He needs a renewal of his medication s today Body mass index 40+ - severely obese 631104947 Z68.41 weight issues discussed and informatio n on weight loss given. needs follow up on weight control as scheduled. Education handout on diets given. Exercise counseling done. Will arrange referral for dietitian, nutritioni st, Physical/o ccupationa l therapy as needed or desired. Also will consider pharmaceut ical and supplement al interventi ons Type 2 isaias betes mellitus with peripheral angiopathy 389166249 E11.51 He has comorbidit y of his diabetes and his peripheral vascular disease [id number] MD MARCELINO Krishnamurthy [address] [place] [address] 08/24/2020 09:44:54 08/24/2020 11:11:37 Adult health examination 797899415 Z00.00 Annual Wellness Visit done today Uncontrol ed type 2 diabetes mellitus 404250864 E11.65 Patient sugars are running pretty much all over the place we need to get an A1c because his last A1c was 8.4. For now we will get and try to bring his postprandi al sugars down a little better by increasing his Jardiance from 10-25. 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 We went over his vitamins and his vaccines he is very reliable and does proximal this good preventati ve care Body mass index 30+ - obesity 671966005 Z68.39 weight issues discussed and informatio n on weight loss given. Needs follow up on weight control as scheduled. Education handout on diets given. Exercise counseling done. Will arrange referral for dietitian, nutritioni st, Physical/o ccupationa l therapy as needed or desired. Also will consider pharmaceut ical and supplement al interventi ons bmi 39.1 Obesity 991216482 E66.9 see BMI above for details Diet education 10002580 Z71.3 as above he is weight has not changed he is very stable he does watch what he eats but he just eats more than he should Influenza vaccine needed 6655736372 106 Z23 Today we are giving his flu shot to him Essential hypertension 58420664 I10 E78.2 His blood pressure is stable he is monitoring his pressure blood pressures are acceptable his blood pressure is well controlled his medicines include for blood pressure hydrochlor othiazide 12.5. He also takes metoprolol 25 tartrate twice daily [id number] Edgar Ramos MD [facility] [address] [place] [address] 04/08/2021 08:33:32 04/09/2021 11:36:28 Administration of pneumococcal vaccine 83001144 Z23 [id number] Edgar Ramos MD [facility] [address] [place] [address] 05/04/2021 15:10:55 05/04/2021 16:39:46 Adult health examination 054593001 Z00.00 Annual Wellness Visit done today we did go over preventati ve measures vitamins to vaccines and the like Essential hypertension 15335195 I10 E78.2 His blood pressure is 126/84 his blood pressure medicine includes hydrochlor othiazide 12.5 and metoprolol tartrate 25 twice daily Restless legs 17520457 G 25.81 We did give him instructio ns regarding restless leg syndrome Type 2 isaias betes mellitus with peripheral angiopathy 491596994 E11.51 His A1c is still higher than I like but I cannot drive his basal sugar down too much or he will get hypoglycem ic Body mass index 40+ - severely obese 979442225 Z68.41 His BMI has not really changed over time 38.9 BMI he continues to say he is working on the diet but so far has not been with result [id number] Edgar Ramos MD [facility] [place] [address] [place] [address] 06/17/2021 14:50:58 06/17/2021 15:33:36 Uncontrolled type 2 diabetes mellitus 517875843 E11.65 Patient sugars are running pretty much all over the place we need to get an A1c because his last A1c was 8.4. For now we will get and try to bring his postprandi al sugars down a little better by increasing his Jardiance from 10-25. Were going to check his laboratory today. Diabetes is under control Essential hypertension 56360301 I10 E78.2 His blood pressure is 126/84 his blood pressure medicine includes hydrochlor othiazide 12.5 and metoprolol tartrate 25 twice daily blood pressure today 150/78 Diabetic p eripheral neuropathy 800909155 E11.40 Sensations are decreased monofilame nt is positive for both feet of the toes and the forefoot other than that he can feel [id number] Edgar Ramos MD [facility] [place] [address] [place] [address] 08/12/2021 13:26:43 08/12/2021 14:21:28 Disorder of thyroid gland 72041320 E07.9 Patient has hypothyroi dism he takes thyroid medicine. His status is stable we will get a check his T SH and free T4 Psoriasis 1422587 L40.9 Psoriasis is stable at this point he is not changing medicine at all Type 2 isaias betes mellitus 19758744 E11.21 This sugar will be watched his [...] status is stable and improving Tinea pedis 6050929 B35. 3 This patient is still using about every 10 to 12 days a treatment with Nizoral shampoo and is working beautifull y for him.. His tinea pedis has stabilized and is doing well Dizziness 804482714 R42 The patient is dizziness status is getting worse he is much more wobbly he does not know the cause of it were going to give him closing Essential hypertension 94938102 I10 E78.2 His blood pressure is 126/84 his blood pressure medicine includes hydrochlor othiazide 12.5 and metoprolol tartrate 25 twice daily blood pressure today Body mass index 30+ - obesity 955586853 Z68.39 weight issues discussed and informatio n on weight loss given. Needs follow up on weight control as scheduled. Education handout on diets given. Exercise counseling done. Will arrange referral for dietitian, nutritioni st, Physical/o ccupationa l therapy as needed or desired. Also will consider pharmaceut ical and supplement al interventi ons Obesity 981936500 E66.9 see BMI above for details Diet education 46877353 Z71.3 as above trial. The patient's blood [...] things he has not changed too much [id number] Edgar Ramos MD [facility] [address] [place] [address] 09/09/2021 14:17:08 09/09/2021 15:21:43 Disorder of thyroid gland 69297040 E07.9 Patient has hypothyroi dism he takes thyroid medicine. His status is stable we will get a check his T SH and free T4 he has hypothyroi dism and is stable presently he is.. All 25 mcg of Levothroid Type 2 isaias betes mellitus 82230388 E11.21 This sugar will be watched his [...] problem Body mass index 30+ - obesity 325448293 Z68.38 weight issues discussed and informatio n [...] on at present he is 38.9 Obesity 911452387 E66.9 see BMI above for details he is going to try to watch his starches little bit become a little bit of a vegetable eater Diet education 09378196 Z71.3 as above I wish him luck in the diet at I do not want a supplement in with an appetite suppressan t certainly Essential hypertension 48904751 I10 E78.2 His blood pressure is 126/84 his blood pressure medicine includes hydrochlor othiazide 12.5 and metoprolol tartrate 25 twice daily blood pressure today. His blood pressure is stable Dizziness 849647770 R42 The patient is dizziness status is getting worse he is much more wobbly he does not know the cause of it were going to give him closing. 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 he did a little better with meclizine but he had some side effects he said which he did not like [id number] [facility] [address] [place] [address] 04/20/2022 11:13:45 04/20/2022 12:54:50 Type 2 diabetes mellitus 78489014 E11.21 This sugar will be watched his [...] sick but better now Wound of skin 362104316 T14.8XXA status is controlled he has a wound that is scant he needs to be seen by home health wound care and physical therapySta brittny is not good right now his wound is open and draining but it does not look purulent too badly Peripheral vascular disease 831656064 I73.9 I am hoping to keep his [...] 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 023777156 L40.51 He does have psoriatic arthritic changes that are stable right nowThe psoriatic arthritis continues to plague him but he is stable and has been little change Morbid obesity 948959449 E66.01 I hope he can continue to lose weight Body mass index 30+ - obesity 277586783 Z68.38 weight issues discussed and informatio n [...] is come down a little bit Thrombophilia 064748703 D68.69 He takes anticoagul ation his blood count is affected little bit by that it is stable Essential hypertension 99015532 I10 His blood pressure is 126/84 his [...] the rate is controlled it is stable [id number] Edgar Ramos MD [facility] [address] [place] [address] 05/20/2022 08:50:08 05/20/2022 09:47:30 Wound of skin 920833948 T14.8XXA His wounds on his leg are improving he is seeing wound management Status is improving wounds are healing Uncontroll ed type 2 diabetes mellitus 183445883 E11.65 Patient sugars are running pretty much [...] of his diabetes is improved Muscle weakness 55415788 M62.81 He has muscle weakness and he needs physical therapy to work with gait strength balance coordinati on and coreStatus is not where it should be right now but withWe are going to set him up with physical therapy as an outpatient as opposed to coming to his home Chronic ki dney disease stage 3B 692100130 N18.32 Patient's creatinine has been elevated slightlyHi s creatinine went from 1.5-2.0 we need to have a stay hydrated we will watch this closelySta brittny has deteriorat ed Type 2 isaias betes mellitus without complication 640854846 E11.9 His A1c went from 8.5-11We will check this in 6 weeks at which point we may need to start insulinI think he would do very well with mounjaroWe will see how the cost works and when he can do [id number] MD MARCELINO Krishnamurthy [address] [place] [address] 06/15/2022 13:33:21 06/15/2022 14:31:55 Wound of skin 834060785 T14.8XXA His wounds on his leg are improving he is seeing wound management Status is improving wounds are healing Osteoarthritis 568240491 M19.90 Uncontroll ed type 2 diabetes mellitus 703115239 E11.65 Patient sugars are running pretty much [...] PT GIVEN TOUJEO SAMPLE (300 UNITS/ML)L OT# [id number]: 03-18-2023 His diabetes is not controlled he [...] but it will be Immunodefi ciency disorder 670838939 D84.81 Due to his diabetes and peripheral vascular disease and age his immune system is fragile and he gets infections more easily also based on history he has been slow to heal and the lower extremitie s because of peripheral vascular disease that is the cause of his immune problem in his legs Morbid obesity 053883194 E66.01 I hope he can continue to lose weightPati ent has morbid obesity he did come down a weight is higher he now is 33.9 it is start Body mass index 30+ - obesity 195257224 Z68.35 weight issues discussed and informatio n [...] 38-33 status is not moving Essential hypertension 30700095 I10 His blood pressure is 126/84 his [...] 25 1 twice daily of tartrate Thrombophilia 458287966 D68.69 He takes anticoagul ation his blood count is affected little bit by that it is stableIs thrombophi lias because of his blood thinner it is stable [id number] Edgar Ramos MD [facility] [address] [place] [address] 06/24/2022 09:05:01 06/24/2022 10:31:15 Type 2 diabetes mellitus without complication 882803854 E11.9 Patient's sugar is improving slightly he is between 150 and 200Present ly he is on 6 units of Toujeo. It is actually 3 clicks because each click is 2 unitsStatu s is improving Vertigo 373649604 R42 At this point his status of the vertigo is ongoing and not improvedAt this point I would have him try valacyclov ir 500 once a day Idiopathic peripheral neuropathy 24246012 G60.9 With his peripheral neuropathy I think he would do fine to start thiamine B1 500 mgIn the form OF BENFOTIAMI NEHis status is not controlled yetFor physical therapy has helped him Peripheral vascular disease 792069296 I73.9 I am hoping to keep his [...] system is affected as well Morbid obesity 078307140 E66.01 I hope he can continue to lose weightPati ent has morbid obesity he did come down a weight is higher he now is 33.9 it is startHis weight is been coming down I am pleased that he is trying and working out it status is improving 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 327975540 L40.51 He does have psoriatic arthritic changes that are stable right nowThe psoriatic arthritis continues to plague him but he is stable and has been little change Thrombophilia 120545075 D68.69 He takes anticoagul ation his blood [...] well Chronic ki dney disease stage 3B 062392444 N18.32 Patient's creatinine has been elevated slightlyHi s creatinine went from 1.5-2.0 we need to have a stay hydrated we will watch this closelySta tus has deteriorat edHe has not gotten worse he stays hydrated he is stable 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 mellitus 4619147912 49930 E11.65 His hyperglyce jamie is improved with the use of his recent insulin Immunodefi ciency disorder 455923567 D84.81 He has immune deficiency disorder we will watch him status is not controlled at the present timeHe will watch for infection particular ly his legs which are slow to heal [id number] MD MARCELINO Krishnamurthy [place] [address] [place] [address] 08/18/2022 09:01:42 08/18/2022 10:05:03 Uncontrolled type 2 diabetes mellitus 307427507 E11.65 His sugars are not controlled at the present time he is still running above 150 fasting most of the time I think he was confused about how to control his sliding scaleSo we went over that again he is watching his diet his weight has come down somewhat about 40 pounds which is quite good Essential hypertension 04407873 I10 Pressure is 128/70 he seems status [...] daily and is stable without his Fatigue 28154689 R53.83 His fatigue is ongoing I think is from deconditio ron. He may have some prostatiti s a PSA would be appropriat e for that reason even though it seems farfetched is status is stable [id number] MD MARCELINO Krishnamurthy [place] [address] [place] [address] 10/10/2022 14:59:02 10/10/2022 16:32:15 Uncontrolled type 2 diabetes mellitus 643609009 E11.65 His sugars are not controlled at [...] be greatStatu s is improving Restless legs 40942100 G 25.81 We did give him instructio ns regarding restless leg syndromeHi s restless legs are stable they are improving Gout 48859643 M10.9 He needs a renewal of his medication s todayHe has not had any gout gout flareups or problems with gout since he has been on allopurino l.He appears more stable Essential hypertension 63233505 I10 Pressure is 128/70 he seems status [...] of the pressure is improved and stable [id number] Edgar Ramos MD [facility] [address] [place] [address] 06/26/2023 15:00:29 06/26/2023 16:33:28 Hyperglycemia 85534184 R73.9 Sugar is elevated he is stable Vitamin D deficiency 347 99850 E55.9 Vitamin D is stable he has neuropathy is stable Osteoarthritis 593915610 M19.90 Hydrochlor othiazide his arthritis is stable Atrial fibrillation 7483 6004 I48.91 He had atrial fibrillati on. He still suffers from takes his anticoagul ation the rate is controlled it is stablePati ent is status is improved and doing well Chronic ki dney disease stage 3B 125241588 N18.32 Patient's creatinine has been elevated slightlyHi s creatinine went from 1.5-2.0 we need to have a stay hydrated we will watch this closelySta tus has deteriorat edHe has not gotten worse he stays hydrated he is stableHe stays hydrated he was sick had to [place] in [facility] down to [facility] and then to [place] where he was hospitaliz ed with dehydratio n and electrolyt e imbalance he is now better this was several months agoHis kidney had gotten worse at 2.3 creatinine now which improved we will check it Dizziness 289025526 R42 The patient is dizziness status is [...] PLUSHe is not stable at present Gout 61289513 M10.9 He needs a renewal of his medication s todayHe has not had any gout gout flareups or problems with gout since he has been on allopurino l.He appears more stable Uncontroll ed type 2 diabetes mellitus 821267748 E11.65 His sugars are not controlled at [...] improving. We will check his A1c Thrombophilia 544559223 D68.69 He takes anticoagul ation his blood count is affected little bit by that it is stableIs thrombophi lias because of his blood thinner it is stableHis anticoagul ation is affecting his platelet agglutinin patient status is stable Morbid obesity 601024479 E66.01 I hope he can continue to lose weightPati ent has morbid obesity he did come down a weight is higher he now is 33.9 it is startHis weight is been coming down I am pleased that he is trying and working out it status is improving his weight has come down little bit Idiopathic peripheral neuropathy 63977198 G60.9 With his peripheral neuropathy I think he would do fine to start thiamine B1 500 mgIn the form OF BENFOTIAMI NEHis status is not controlled yetFor physical therapy has helped himHe will continue his vitamin Essential hypertension 91914223 I10 Pressure is 128/70 he seems status [...] improved and stable Gastroesop hageal reflux disease 054886471 K21.9 His GERD is controlled with pantoprazo le he knows when to take it it is stable Restless legs 35360836 G 25.81 We did give him instructio ns regarding restless leg syndromeHi s restless legs are stable they are improving status is improved and stable Allergic rhinitis 934660 04 J30.9 His allergies are controlled with Claritin and montelukas t Hypothyroidism 21283002 E03.9 He takes his thyroid medicine we will check the TSH it is stable 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 903494770 L40.51 His psoriasis continues but it is stable 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 3117774378 08 E11.22 His kidney function has bounced up is not where it was is not stable yet we will recheck it Immunodefi ciency disorder 608573506 D84.81 His immune deficiency is stable Type 2 isaias betes mellitus with peripheral angiopathy 756772253 E11.51 His peripheral angiopathy is improved Heart failure 98518141 I 50.9 His heart failure has improved his medicines have helped in particular the Jardiance it is stabilized [id number] MD MARCELINO Krishnamurthy [address] [place] [address] 07/27/2023 10:21:43 07/27/2023 11:29:54 Cellulitis of toe of right foot 7824256556 3070024 L03.031 His toe looks quite nasty bleeding [...] disorder due to type 2 diabetes mellitus 296778003 E11.51 He has severe peripheral diminished blood flow dorsalis pedis and posterior tibialis both sides is low his diabetes is the cause. His status is getting worse I think he might need an amputation before this is done Peripheral vascular disease 911755682 I73.9 Patient has peripheral vascular disease with decreased dorsalis pedis and posterior tibialisSt atus is getting worse not healing swollen [id number] Edgar Ramos MD [facility] [address] [place] [address] 09/07/2023 07:43:28 09/07/2023 08:26:05 Chronic kidney disease stage 3B 726901362 N18.32 Patient's creatinine has been elevated slightlyHi s creatinine went from 1.5-2.0 we need to have a stay hydrated we will watch this closelyStnoe mart has deteriorat edHe has not gotten worse he stays hydrated he is stableHe stays hydrated he was sick had to be [place] [facility] [facility] [place] in [facility] down to [facility] and then to [place] where he was hospitaliz ed with dehydratio n and electrolyt e imbalance he is now better this was several months agoHis kidney had gotten worse at 2.3 creatinine now which improved we will check itHis microalbum in is 2400His A1c is 11 Uncontroll ed type 2 diabetes mellitus 401329625 E11.65 His sugars are not controlled at [...] his A-fib but the rate is controlled [id number] Edgar Ramos MD [facility] [address] [place] [address] 04/25/2024 13:14:48 04/25/2024 15:07:47 Counseling 431730877 Z71.9 Patient received [facility] Value Based Patient Guide today. 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 656699959 I83.013 His varicose veins have improved since he lost weight Chronic ul cer of ankle 921854634 L97.319 He has got chronic ulcer in his ankle which is improving 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 Chronic ulcer of foot 42 1391183 L97.509 His ankle ulcer is healed Chronic ul cer of skin of lower leg 2686411272 3490006 L97.822 Chronic ulcer of foot 42 0828266 L97.511 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 825930575 I70.248 The atheroscle rosis lower extremitie s good Hyperlipidemia 73314355 E78.5 Hyperlipid emia has improved with weight loss Health Concerns Section Related Observation LastModified by Organization Detai ls LastModified Time None Recorded Concern Status LastModified by Organization Details LastModified Time None Recorded Advance Directives Directive Y: Payers Insurance Date Sequence Insurance Name Policy Number Policy Del Toro Covered Member ID Del Toro Member ID Guarantor Name 05/24/2024 2 [employer] (MEDICARE SUPPLEMENT) Richard Black [id number] Richard Black 05/24/2024 1 [place] Richard Black [id number] Richard Black Notes Date Note Type [...] we might be okay [facility] with a high fever on 10/23/2021 he was in for 6 daysIt was hard to figure out what happened but they gave him some antibiotic then he was shipped to [facility] in [place] he was there for 4 days while [...] the shuffling of the care up in [place] and by [place] as well So he [...] his ambulation is better Today is a lanv-uy-gycd meeting for that in the office Edgar Ramos MD [address] [address], [place], [address], [facility] - [facility], [facility] 10/11/2022 08:02:53 4 text/html ANNUAL WELLNESS VISIT [...] No or Minimal depression, (0). Imported from [employer] on 4Patient has numerous things to go over yesterday reportedHe is going to have surgery with Dr. Barbara KUMARclemente [facility]eds his refill on tramadolHe presently [...] we might be okay [facility] hospital with a high fever on 10/23/2021 he was in for 6 daysIt was hard to figure out what happened but they gave him some antibiotic then he was shipped to [facility] in [place] he was there for 4 days while [...] the shuffling of the care up in [place] and by [place] and [facility] as well So he has a lot [...] his ambulation is better Today is a skxs-ih-hawz meeting for that in the office Edgar Ramos MD [address] [address], [place], [address], [facility] - [facility] 06/27/2023 10:03:14 4 text/html The patient sees [...] metatarsal area [facility]eds his refill on tramadolHe presently has [...] we might be okay [facility] hospital with a high fever on 10/23/2021 he was in for 6 daysIt was hard to figure out what happened but they gave him some antibiotic then he was shipped to [facility] in [place] he was there for 4 days while [...] the shuffling of the care up in [place] and by [place] as well So he [...] his ambulation is better Today is a oolm-lt-xppj meeting for that in the office Edgar Ramos MD [address] [address], [place], [address], [facility] - [facility], [facility] 07/30/2023 13:54:29 4 text/html Patient comes in [...] metatarsal area [facility]eds his refill on tramadolHe presently has [...] we might be okay [facility] hospital with a high fever on 10/23/2021 he was in for 6 daysIt was hard to figure out what happened but they gave him some antibiotic then he was shipped to [facility] in [place] he was there for 4 days while [...] the shuffling of the care up in [place] and by [place] as well So he [...] his ambulation is better Today is a gzlo-gq-hqet meeting for that in the office Edgar Ramos MD [address], [place], [address], [facility] - [facility], [facility] 09/07/2023 09:02:11 4 text/html It is a [...] many people This patient came down from [facility] he came down to his manufactured [...] time to start insulin [facility] hospital with a high fever on 10/23/2021 he was in for 6 daysIt was hard to figure out what happened but they gave him some antibiotic then he was shipped to [facility] in [place] he was there for 4 days while [...] the shuffling of the care up in [place] and by [place] as well So he [...] his ambulation is better Today is a owwh-tb-givi meeting for that in the office QUALITY MEASURE QUESTIONNAIRE PRAPARE Screening Patient declined PRAPARE Screener 04/25/2024 Imported from [facility] on 04/25/2024 Edgar Ramos MD [address] [facility] [address], [place], [address], [facility] - [facility], [facility] 04/27/2024 13:58:14
--- OUTSIDE RECORDS SUMMARY | 2024-12-04 14:55 | XMS_ITS | Referral Summary ---
Author Organization [facility] Address [address] [place] [address] Care Team Providers Care Engine Head Repairer Name Role Phone Zhao Sorensen MD Primary Care Provider [phone] Encounters Date Type Department Care Team Description 10/28/2024 11:45 AM EDT Office Visit [facility] [address] [place] [address] Lonny Liu MD PAD (peripheral artery disease) (Primary Dx); PAF (paroxysmal atrial fibrillation) (CMS/HCC); Chronic diastolic heart failure (CMS/HCC); Primary hypertension; Nonrheumatic aortic valve stenosis; Mixed hyperglyceridemia; Stage 3b chronic kidney disease (CMS/HCC) from Last 3 Months Allergies No known active allergies Medications allopurinol [...] Date Diagnosed Date 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 10/10/2024 Counseling, unspecified [...] Assessment & Plan (10/21/2022 11:36 AM EDT): [id number]= 7 age, HTN, CHF, DM and PAD Continue eliquis 2.5 mg bid, and metoprolol 25 mg bid- heart rate well controlled Peripheral arterial occlusive disease 01/24/2022 Aortic valve stenosis 01/24/2022 Acquired hypothyroidism 11/30/2021 Cellulitis of lower leg 11/30/2021 Hyperglycemia 11/30/2021 Right lower lobe pneumonia 11/30/2021 Atrial fibrillation 11/29/2021 Assessment & Plan (10/21/2022 9:24 AM EDT): [id number] score is 4 due to age, hypertension, [...] and ao rtic valve stenosis 03/25/2022 03/25/2022 Social History Tobacco Use Types Packs/Day Years [...] 10/28/2024 12:05 PM EDT Plan of Treatment Not on file Insurance MEDICARE [facility] Care Teams Engine Head Repairer Relationship Specialty Start Date End Date Zhao Sorensen MD [address] [place] [address] PCP - General 02/19/22
--- OUTSIDE RECORDS SUMMARY | 2024-12-04 14:56 | XMS_ITS | Continuity of Care Document ---
Author Organization [facility] Address [address] [address] [place] [address] Phone [phone] Care Team Providers Care Chimney Mechanic Name Role Phone . DOCTOR FORMS, COPIES INTEREST Care Team Inform ation Jewish History Professor Unavailable
--- OUTSIDE RECORDS SUMMARY | 2024-12-04 14:56 | XMS_ITS | Clinical Summary ---
Author Organization [facility] Address [id number] [address] [place] [address] Care Team Providers Care Institutional Cook Name Role Phone Unavailable Primary Care Provider [...] mouth daily as needed for allergies. Active dfndsrrf-sisj-VQ-ca lcium &mins (THERAGRAN-M) 9 mg iron-400 mcg [...] Date Diagnosed Date Critical limb ischemia of [facility] lower extremity with gangrene 10/10/2024 Assessment & [...] Office Visit [facility] [address] [place] [address] Willian Shaikh MD Critical limb ischemia [...] Medical Devices Not on file Insurance MEDICARE [facility] Advance Directives * Full Code (Latest Code Status on File) Date Activated Date Inactivated Comments 02/27/2023 9:26 PM 02/28/2023 1:55 PM
--- OUTSIDE RECORDS SUMMARY | 2024-12-04 17:39 | XMS_ITS | CCD ---
Author Organization [facility] Care Team Providers Care Dog Track Kennel Manager Name Role Phone Unavailable Primary Care Provider [...] Care Unavailable MOUKARBEL, DR PITT Attending Unavailable MOUKAPETROSEL, DR PITT Consulting Unavailable MISC, DR SILVA Primary Care Unavailable MAYRAUKAALPHONSO, DR PITT Attending Unavailable MOUKAPETROSEL, DR PITT Consulting Unavailable MOUKAPETROSEL, DR PITT Admitting Unavailable PROVIDER, UNKNOWN Attending Unavailable PROVIDER, UNKNOWN Admitting Unavailable Unavailable Primary Care Provider UnavailSWEETIE Sequeira Attending Unavailable SWEETIE TOMLINSON Attending Unavailable Marj Sorensen Primary Care Unavailable Haritha Mistry Attending Unavailable Haritha Mistry Admitting Unavailable Marj Sorensen Primary Care Unavailable Marj Sorensen Admitting Unavailable Marj Sorensen Attending Unavailable Marj Sorensen Admitting Unavailable Marj Sorensen Attending Unavailable Marj Sorensen Primary Care Unavailable Marj Sorensen Primary Care Unavailable Marj Sorensen Admitting Unavailable Marj Sorensen Attending Unavailable Marj Sorensen Primary Care Unavailable SWEETIE TOMLINSON V Attending Unavailable SWEETIE TOMLINSON V Admitting Unavailable Edu, Marj Dugan Primary Care Unavailable KENTON, CAREY Attending Unavailable KENTON, CAREY Admitting Unavailable Edu, Marj Dugan Primary Care Unavailable KENTON, CAREY Attending Unavailable KENTON, CAREY Admitting Unavailable Edu, Rigo Primary Care Unavailable Edu, Marj uDgan Admitting Unavailable Edu, Marj Dugan Attending Unavailable Edu, Marj Dugan Primary Care Unavailable Edu, Marj Dugan Primary Care Unavailable Edu, Marj Dugan Attending Unavailable Edu, Marj Dugan Primary Care Unavailable Edu, Rigo Admitting Unavailable Edu, Marj Dugan Attending Unavailable Edu, Rigo Primary Care Unavailable Edu, Majr Dugan Attending Unavailable Edu, Marj Dugan Attending Unavailable Edu, Rigo Primary Care Unavailable Edu, Marj Dugan Attending Unavailable Edu, Marj Dugan Primary Care Unavailable Edu, Rigo Primary Care Unavailable Edu, Marj Dugan Attending Unavailable Edu, Rigo Primary Care Unavailable Edu, Marj Dugan Attending Unavailable Edu, Marj Dugan Primary Care Unavailable Edu, Marj Dugan Admitting Unavailable Edu, Marj Dugan Attending Unavailable Medications Current Medications Medication Drug Class(es) Dates Sig (Normalized) Sig (Original) 8 hr acetaminophen 650 mg extended release oral tablet (6 sources) Start: 02-12-2020 take 1 tablet by mouth three times daily as needed for pain Acetaminophen (Tylenol Arthritis Pain) 650 mg Tablet Extended Release Active 650 MG PO Three times daily as needed for Pain February 12, 2020 12:00am acetaminophen (T YLENOL EXTRA STRENGTH) 500 mg tablet Take 650 mg by mouth every 8 (eight) hours. Active take 1 tablet by toma th every four hours Tylenol 325 MG 1 tablet as needed Orally every 4 hrs prn Active allopurinol 300 mg oral tablet (3 sources) Xanthine Oxidase Inhibitor Start: 02-12-2020 take 1 tablet by mouth once daily Allopurinol 300 mg Tablet Active 300 MG PO Daily February 12, 2020 12:00am apixaban 5 mg oral tablet (2 sources) Factor Xa Inhibitor Start: 10-23-2024 take 2.5 mg by mouth twice daily Apixaban (Eliquis) 5 mg tablet Active 2.5 MG PO Twice daily October 23, 2024 12:00am take 1 tablet by toma th in the morning, then take 1 tablet by mouth at bedtime apixaban (ELIQUIS) 2.5 mg tablet Indications: prevent thromboembolism in chronic atrial fibrillation Take 1 tablet (2.5 mg total) by mouth in the morning and 1 tablet (2.5 mg total) before bedtime. Indications: treatment to prevent blood clots in chronic atrial fibrillation. Active aspirin 81 mg delayed release oral tablet (7 sources) Platelet Aggregation Inhibitor, Nonsteroidal Anti-inflammatory Drug Start: 10-23-2024 Aspirin (Adult Lo w Dose Aspirin) 81 mg tablet,delayed release (DR/EC) Active 81 MG PO Daily October 23, 2024 12:00am Start: 02-12-2020 End: 10-23-2024 take 1 tablet by mouth once daily Aspirin,Buffd-Calcium Carb-Mag 325 mg Tablet Discontinued 325 MG PO Daily February 12, 2020 12:00am October 23, 2024 3:57pm aspirin 81 mg ch ewable tablet Chew 1 tablet (81 mg total) and swallow in the morning. Active atorvastatin 80 mg oral tablet (2 sources) HMG-CoA Reductase Inhibitor Start: 10-23-2024 take 1 tablet by mouth once daily Atorvastatin 80 mg tablet Active 80 MG PO Daily October 23, 2024 12:00am take 1 tablet by mouth in the mo rning atorvastatin (LIPITOR) 80 mg tablet Take 1 tablet (80 mg total) by mouth in the morning. Active cefazolin sodium/water (ceFAZolin in sterile water) 1 gram/10 mL syringe (1 source) cefazolin sodium/water (ceFAZolin in sterile water) 1 gram/10 mL syringe Infuse into a venous catheter. Active cinnamon preparation 500 mg oral tablet (3 sources) Non-Standardized Food Allergenic Extract Cinnamon 500 MG as directed Orally Active Ciprofloxacin (1 source) Quinolone Antimicrobial Ciprofloxacin Active colchicine 0.6 mg oral tablet (3 sources) Start: 03-12-20 Colchicine 0.6 MG 2 tablet when picked up then take 1 tablet 1 hour later Orally Once a day for 30 day(s) Feb, Active empagliflozin 10 mg oral tablet (7 sources) Sodium-Glucose Cotransporter 2 Inhibitor Start: 02-12-20 End: 10-24-19 take 1 tablet by mouth once daily Empagliflozin (Jardiance) 10 mg tablet Active 25 MG PO Daily October 23, 2024 3:56pm States I take on according to my BS. take 1 tablet by mouth in the mo rning empagliflozin (JARDIANCE) 25 mg tablet tablet Take 1 tablet (25 mg total) by mouth in the morning. Active fluticasone propionate 0.05 mg/actuat metered dose nasal spray (6 sources) Corticosteroid Start: 02-12-2020 Fluticasone Pr opionate 50 mcg/actuation [place],Suspension Active 1 SPRAY INTRANASAL Daily February 12, 2020 12:00am take 1 spray(s) nasa l route in the morning fluticasone propionate (FLONASE) 50 mcg/actuation nasal spray Administer 1 spray into each nostril in the morning. Active take 1 spray(s) nasal route once daily Fluticasone Propionate 50 MCG/ACT 1 spray in each nostril Nasally Once a day Active furosemide 40 mg oral tablet (2 sources) Loop Diuretic Start: 10-23-2024 take 1 tablet by mouth once daily Furosemide 40 mg tablet Active 40 MG PO Daily October 23, 2024 12:00am take 1 tablet by mouth once lalita y furosemide (LASIX) 40 mg tablet Take 1 tablet (40 mg total) by mouth daily. Morning Active glimepiride 4 mg oral tablet (6 sources) Sulfonylurea Start: 02-12-2020 take 1 tablet by mouth twice daily Glimepiride 4 mg Tablet Active 4 MG PO Twice daily February 12, 2020 12:00am take 1 tablet by toma every twenty-four hours Glimepiride 4 MG 1 tablet with breakfast or the first main meal of the day Orally Once a day Active hydroCHLOROthiazide 12.5 mg oral tablet (5 sources) Thiazide Diuretic Start: 02-12-2020 take 1 tablet by mouth once daily Hydrochlorothiazide 12.5 mg Tablet Active 12.5 MG PO Daily February 12, 2020 12:00am take 1 capsule by mo [facility] every twenty-four hours hydroCHLOROthiazide 12.5 MG 1 capsule in the morning Orally Once a day Active 1.5 ml insulin glargine 300 unt/ml pen injector (1 source) Insulin Analog TOUJEO SOLOSTAR U-300 INSULIN 300 unit/mL (1.5 mL) insulin pen Inject under the skin nightly. Active Insulin Glargine U-300 Conc (Toujeo Solostar U-300 Insulin) 300 unit/mL (1.5 mL) insulin pen (1 source) Start: 10-24-19 25 inject 300 [IU] by subcutaneous injection once daily Insulin Glargine U-300 Conc (Monse Bravo U-300 Insulin) 300 unit/mL (1.5 mL) insulin pen Active 300 UNIT SUBCUT Daily October 23, 2024 12:00am levothyroxine sodium 0.025 mg oral tablet (9 sources) l-Thyroxine Start: 10-24-19 take 2 tablets by mouth once daily Levothyroxine 25 mcg tablet Active 50 MCG PO Daily October 23, 2024 3:52pm Start: 02-12-2020 End: 10-23-2024 take 1 tablet by mouth once daily Levothyroxine 25 mcg Tablet Discontinued 25 MCG PO Daily February 12, 2020 12:00am October 23, 2024 4:04pm Start: 02-12-2020 End: 02-12-2020 Levothyroxine 75 mcg Tablet Discontinued TABLET February 12, 2020 12:00am February 12, 2020 9:57am Start: 02-12-2020 End: 02-12-2020 Levothyroxine Discontinued T ABLET February 12, 2020 12:00am February 12, 2020 9:57am take 1 tablet by toma th once daily at bedtime levothyroxine (SYNTHROID, LEVOTHROID) 50 MCG tablet Take 1 tablet (50 mcg total) by mouth once daily at bedtime. Active take 1 tablet by toma th once daily in the morning Levothyroxine Sodium 25 MCG 1 tablet in the morning on an empty stomach Orally Once a day Active lidocaine 0.04 mg/mg topical gel (2 sources) Antiarrhythmic, Amide Local Anesthetic Start: 02-12-2020 Lidocaine 4 % Gel Active 1 APPLIC TOPICAL As Directed as needed for Pain February 12, 2020 12:00am Start: 02-12-2020 Lidocaine Acti ve 1 APPLIC TOPICAL As Directed February 12, 2020 12:00am lisinopril 10 mg oral tablet (1 source) Angiotensin Converting Enzyme Inhibitor Start: 10-23-2024 take 1 tablet by mouth once daily Lisinopril 10 mg tablet Active 10 MG PO Daily October 23, 2024 12:00am loratadine 10 mg oral tablet (7 sources) Start: 02-12-2020 End: 10-23-2024 take 1 tablet by mouth once daily Loratadine (Claritin) 10 mg tablet Active 10 MG PO Daily October 23, 2024 12:00am methylPREDNISolone 4 mg oral tablet (2 sources) Corticosteroid Start: 10-23-2024 take 1 tablet by mouth once daily Methylprednisolone 4 mg tablet Active 4 MG PO Daily October 23, 2024 12:00am take 1 tablet by toma in the morning, then take 1 tablet by mouth at bedtime methylPREDNISolone (MEDROL, PACO,) 4 mg t ablet Take 1 tablet (4 mg total) by mouth in the morning and 1 tablet (4 mg total) before bedtime. follow package directions. Active 24 hr metoprolol succinate 25 mg extended release oral tablet (7 sources) beta-Adrenergic Jose D Start: 10-23-2024 take 1 tablet by mouth twice daily Metoprolol Succinate 25 mg tablet extended release 24 hr Active 25 MG PO Twice daily October 23, 2024 12:00am Start: 02-12-2020 End: 10-23-2024 take 1 tablet by mouth twice daily Metoprolol Tartrate 25 mg Tablet Discontinued 25 MG PO Twice daily February 12, 2020 12:00am October 23, 2024 3:59pm take 1 capsule by mo [facility] once daily Metoprolol Succinate 25 MG 1 capsule Orally Once a day Active montelukast 10 mg oral tablet (6 sources) Leukotriene Receptor Antagonist Start: 02-27-2020 take 1 tablet by mouth once daily at bedtime Montelukast 10 mg Tablet Active 10 MG PO Daily at bedtime February 27, 2020 12:00am rgimszml-xlgq-GM-ca lcium &mins (THERAGRAN-M) 9 mg iron-400 mcg tablet (1 source) ksmpqrms-uedr-PK -c alcium &mins (THERAGRAN-M) 9 mg iron-400 mcg tablet Take 1 tablet by mouth in the morning. Active Uzndmogd-Qif-Nprbc- Vit K-Lycop (Men's 50 Plus Daily Formula) 400-20-370 mcg Tablet (2 sources) Start: 02-12-2020 take 1 tablet by mouth once daily Gdwtxugk-Ofj-Jpcjs -Vit K-Lycop (Men's 50 Plus Daily Formula) 400-20-370 mcg Tablet Active 1 TAB PO Daily February 12, 2020 12:00am Multivitamin preparation (3 sources) take 1 tablet by mouth once daily Multivitamin - 1 tablet Orally Once a day Active pantoprazole 40 mg delayed release oral tablet (2 sources) Proton Pump Inhibitor Start: 10-23-2024 Pantoprazole 40 mg tablet,delayed release (DR/EC) Active MG PO October 23, 2024 12:00am take 1 tablet by mouth in the mo rning pantoprazole (PROTONIX) 40 mg EC tablet Take 1 tablet (40 mg total) by mouth in the morning. Active rOPINIRole 1 mg oral tablet (10 sources) Nonergot Dopamine Agonist Start: 10-23-2024 take 2 tablets by mouth once daily at bedtime as needed Ropinirole 1 mg tablet Active 2 MG PO Daily at bedtime as needed for RLS October 23, 2024 3:50pm Start: 02-12-2020 End: 10-23-2024 take 2 tablets by mouth at bedtime rOPINIRole HCl 1 MG 2 tablet Orally at bedtime for 30 day(s) Feb, Active Start: 02-12-2020 take 2 mg by mouth o nce daily at bedtime Ropinirole Active 2 MG PO Daily at bedtime February 12, 2020 12:00am take 1 tablet by toma th once daily rOPINIRole (REQUIP) 2 mg tablet Take 1 tablet (2 mg total) by mouth nightly. Active take 1 tablet by toma th once daily at bedtime rOPINIRole HCl 1 MG 1 tablet 1 to 3 hours before bedtime Orally Once a day Active tamsulosin hydrochloride 0.4 mg oral capsule (1 source) alpha-Adrenergic Jose D take 1 capsule by mouth in the morning tamsulosin (FLOMAX) 0.4 mg capsule Take 1 capsule (0.4 mg total) by mouth in the morning. Active tobramycin 3 mg/ml ophthalmic solution (1 source) Aminoglycoside Antibacterial tobramycin (TOBREX) 0.3 % drops 1 drop every 4 (four) hours while awake. Active traMADol hydrochloride 50 mg oral tablet (7 sources) Opioid Agonist Start: 10-24-19 take 1 tablet by mouth every eight hours as needed Tramadol 50 mg tablet Active 50 MG PO Every 8 hours as needed October 23, 2024 12:00am Start: 02-12-2020 End: 02-28-2020 take 1 tablet by mouth three times daily at bedtime for pain Tramadol 50 mg Tablet Discontinued 50 MG PO Three times daily as needed for Pain February 12, 2020 12:00am February 28, 2020 9:46am Takes 1 at HS traMADol ER (ULT KIP-ER) 300 MG 24 hr tablet Take 50 mg by mouth in the morning and at bedtime. 1-2 by mouth four times a day as needed Active take 1 tablet by toma th every twenty-four hours traMADol HCl 50 MG 1 tablet as needed Orally Once a day Active triamcinolone acetonide 1 mg/ml topical cream (2 sources) Corticosteroid Start: 10-23-2024 Triamcinolone Acetonide 0.1 % cream Active 1 APPLIC TOPICAL Daily October 23, 2024 12:00am triamcinolone (K ENALOG) 0.1 % cream Apply 1 Application topically in the morning and 1 Application before bedtime. Active Vitamin B 12 100 MCG (3 sources) Vitamin B 12 100 MCG as directed Orally Active vitamin b12 1 mg oral tablet (2 sources) Vitamin B12 Start: 02-12-2020 take 1 tablet by mouth once daily Cyanocobalamin (Vitamin B-12) (Vitamin B-12) 1,000 mcg Tablet Active 1000 MCG PO Daily February 12, 2020 12:00am Completed/Discontinued Medications Medication Drug Class(es) Dates Sig (Normalized) Sig (Original) chondroitin sulfates 200 mg / glucosamine hydrochloride 250 mg oral tablet (5 sources) Start: 02-12-2020 End: 10-23-2024 take 1 tablet by mouth once daily Glucosamine-Chondro itin (Osteo Bi-Flex) 250-200 mg Tablet Discontinued 1 TAB PO Daily February 12, 2020 12:00am October 23, 2024 3:57pm Osteo Bi-Flex On e Per Day - as directed Orally Active cinnamon bark 500 mg oral capsule (2 sources) Start: 02-12-2020 End: 10-23-2024 take 1 capsule by mouth once daily Cinnamon Bark (Cinnamon) 500 mg Capsule Discontinued 1000 MG PO Daily February 12, 2020 12:00am October 23, 2024 3:56pm pioglitazone 45 mg oral tablet (5 sources) Peroxisome Proliferator Receptor alpha Agonist, Peroxisome Proliferator Receptor gamma Agonist, Thiazolidinedione Start: 02-12-2020 End: 10-23-2024 take 1 tablet by mouth once daily Pioglitazone 45 mg Tablet Discontinued 45 MG PO Daily February 12, 2020 12:00am October 23, 2024 4:01pm pravastatin sodium 40 mg oral tablet (5 sources) HMG-CoA Reductase Inhibitor Start: 02-12-2020 End: 10-23-2024 take 1 tablet by mouth every other day Pravastatin 40 mg Tablet Discontinued 40 MG PO every other day February 12, 2020 12:00am October 23, 2024 4:00pm take 1 tablet by toma every twenty-four hours Pravastatin Sodium 40 MG 1 tablet Orally Once a day Active rivaroxaban 10 mg oral tablet (2 sources) Factor Xa Inhibitor Start: 02-28-2020 End: 10-23-2024 take 1 tablet by mouth once daily Rivaroxaban (Xarelto) 10 mg Tablet Discontinued 10 MG PO Daily February 28, 2020 12:00am October 23, 2024 4:00pm Oxford Oil-Drift-3 Fatty Acids (Oxford Oil-1000) 1,000-200 mg Capsule (2 sources) Start: 02-12-2020 End: 10-23-2024 take 1 capsule by mouth once daily Oxford Oil-Drift-3 Fatty Acids (Oxford Oil-1000) 1,000-200 mg Capsule Discontinued 1 CAP PO Daily February 12, 2020 12:00am October 23, 2024 4:00pm Start: 02-12-2020 take 1 capsule by mo [facility] once daily Oxford Oil-Drift-3 Fatty Acids (Oxford Oil-1000) 1,000-200 mg Capsule Active 1 CAP PO Daily February 12, 2020 12:00am ubidecarenone 100 mg oral capsule (2 sources) Start: 02-12-2020 End: 10-23-2024 Coenzyme Q10 (Co Q-10) 100 m g Capsule Discontinued 100 MG PO Daily February 12, 2020 12:00am October 23, 2024 3:56pm Problems Active Problems Problem Classification Problem Date Documented Date Episodic/Chronic Cardiac dysrhythmias (6 sources) Paroxysmal atrial fibrillation; Translations: [PAROXYSMAL ATRIAL FIBRILLATION] Onset: 2 Chronic Chronic kidney disease (2 sources) Chronic kidney disease stage 3; Translations: [Stage 3 chronic kidney disease] 10-23-2024 Chronic Chronic kidney disease (2 sources) Chronic kidney disease; Translations: [Chronic kidney disease, stage 3b] Onset: 4 Congestive heart failure; nonhypertensive (3 sources) Chronic diastolic (congestive) heart failure; Translations: [CHRONIC DIASTOLIC HEART FAILURE] Onset: 2 Chronic Diabetes mellitus with complications (2 sources) 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 mellitus; Translations: [Type 2 diabetes mellitus with diabetic chronic kidney disease] 10-23-2024 Chronic Diabetes mellitus without complication (1 source) Type 2 diabetes mellitus without complications; Translations: [Type 2 diabetes mellitus without complications] Onset: 5 Chronic Disorders of lipid metabolism (5 sources) Hyperchylomicronemia; 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] Onset: 2 10-23-2024 Chronic Essential hypertension (2 sources) Essential (primary) hypertension; Translations: [Essential (primary) hypertension] Onset: 3 Chronic Gangrene (2 sources) Critical lower limb ischemia ; Translations: [Atherosclerosis of [place] arteries of extremities with gangrene, right leg] Onset: 5 10-10-2024 Chronic Gangrene (3 sources) Gangrene of foot; Translations: [Gangrene, not elsewhere classified] Episodic Gout and other crystal arthropathies (4 sources) Gouty arthritis of right ankle; Translations: [Idiopathic gout, right ankle and foot] Onset: 1 Resolved: 1 Chronic Heart valve disorders (2 sources) Nonrheumatic aortic (valve) stenosis; Translations: [Nonrheumatic aortic (valve) stenosis] Onset: 2 Chronic Hypertension with complications and secondary hypertension (2 sources) Chronic kidney disease due to hypertension; Translations: [Hypertensive chronic kidney disease with stage 1 through stage 4 chronic kidney disease, or unspecified chronic kidney disease] 10-23-2024 Chronic Osteoarthritis (4 sources) Arthritis of right knee; Translations: [Unilateral primary osteoarthritis, right knee] Onset: 1 Resolved: 1 Chronic Other circulatory disease (3 sources) Stenosis of right iliac artery; Translations: [Stricture of artery] 10-10-2024 Chronic Other circulatory disease (2 sources) Critical lower limb ischemia 10-10-2024 Episodic Other connective tissue disease (5 sources) History of total knee arthroplasty; Translations: [Presence of right artificial knee joint] 02-28-2020 Chronic Comment on above: Problem List clean-u p per request of Phys. EHR Cmte Other connective tissue disease (1 source) Presence of right artificial knee joint; Translations: [Status post total right knee replacement Z96.651] Onset: 1 Resolved: 1 Chronic Other diseases of kidney and ureters (1 source) Secondary hyperparathyroidism; Translations: [Secondary hyperparathyroidism of renal origin] 10-23-2024 Chronic Other diseases of kidney and ureters (1 source) Secondary hyperparathyroidism of renal origin; Translations: [Secondary hyperparathyroidism (of renal origin)] 10-23-2024 Chronic Other hereditary and degenerative nervous system conditions (3 sources) Restless legs; Translations: [Restless legs syndrome] Chronic Other hereditary and degenerative nervous system conditions (1 source) Restless legs syndrome; Translations: [Restless leg syndrome G25.81] Onset: 1 Resolved: 1 Chronic Other nervous system disorders (3 sources) Neuropathy; Translations: [Polyneuropathy, unspecified] Chronic Other nervous system disorders (3 sources) Chronic pain; Translations: [Other chronic pain] Chronic Other non-traumatic joint disorders (1 source) Rotator cuff arthropathy of right shoulder; Translations: [Other specific arthropathies, not elsewhere classified, right shoulder] Chronic Other non-traumatic joint disorders (1 source) Other specific arthropathies, not elsewhere classified, right shoulder Onset: 2 Resolved: 2 Chronic Peripheral and visceral atherosclerosis (8 sources) Peripheral vascular disease; Translations: [Peripheral vascular disease, unspecified] Onset: 2 10-10-2024 Chronic Spondylosis; intervertebral disc disorders; other back problems (3 sources) Degeneration of lumbar intervertebral disc; Translations: [Other intervertebral disc degeneration, lumbar region] Chronic Past or Other Problems Problem Classification Problem Date Documented Da te Episodic/Chronic Acute and unspecified renal failure (1 source) Acute renal failure syndrome; Translations: [Acute kidney failure, unspecified] Onset: 02-27-2023 02-27-2023 Episodic Other non-traumatic joint disorders (1 source) Pain in right shoulder Onset: 12-02-2021 Resolved: 12-02-2021 Episodic Results Test Name Value Interpretation Reference Range Facility Provider Orderson 10-30-2024 Provider Orders [id number]# 1.00[facility] Office Visiton 10-28-2024 Follow-up visit [id number] Richard Boykin 1940 M Date Provider Department Center 10/28/2024 [facility] Family History Problem Relation Age of Onset Stroke Mother Valvular heart disease Father Family Status - Relation Status Age at Mother Father Level of Service:50397 [place] OFFICE/OUTPATIENT ESTABLISHED MOD MDM 30 MIN Normal [facility] Outside Recordson 10-28-2024 Outside Records [id number]# 1.00OT[facility] Outside Recordson 10-24-2024 Outside Records [id number]-23-2024 Coding Summary HTMLBase 64 PjchzdfiLYn9zMb+PGhl YWQ+LX6OKIReT98svWXq vP1hF4QXIQaJFqjgHTWT THbYTjXmsaWwOP0rdJBe ZXJu IC8+ND3tOTUrPleyoKVr g3S0jGJ5H14vjn9nXDjn fGR6WMVnDbMzslkaf5dw qYk0FAteWncgFtVo PANxtM41CTB5pA95Rm11 xCBtsZWnz6oxeIr9MmNu EHWrROG8dWxtNTbeo8Os PVJmZ93jnRShq2Y7 IGNvbGxhcHNlOyBlbXB0 xC9sYQtfotqoo9spnbwc Yri2sp52lEQqt1K4rKM3 Y0BcpiF4VWEhkSSp EqxgkTIHaQ2qsqnem7us xxfrZuFxAPMoOUf1YNg3 EEZwbGwyPiCbGQ60WCF9 IXXorrFzE8NcUURf xFhlVgT3n1Z7Ya3UL6AD QtwdJ7VEIGBRQFunwBM+ JL36xj89Z1DzDehlMmp0 ILXkOTU8gKW5kG7w MYHjIJoky8N3tJL6G5Yl ulLsez5iz7lnUAGtTDzj S29nnRYyz7Z8YOJtjNF0 RWNbsOybYbSdyV42 Oyc+ORMemVkvw7WaWcoz t1llp4eplBs2TvuaBKSq fiOdcTbpREC7a2GgNr0l CCJqsSK4oWD6zE2b FfZaRnY7TBatC320ToOk gXXdAfgnR38jO9NhxCF+ ITQvSla5SIOuoGpgJQ8p M5OjLATniyolaUFr wGqnKD1eMZRtlfhuIBTd eS4iZMBcQ1r1XrGuWbG6 VGtxC3YrWKSbcuuiZs22 yF3fAnLcUcY2VNqg D9HmeuE1MVIqpLOoBMig KRW0K63ub2O3UGUyDGYj KNT6iPE9mT9rfPcvqhog bGVmdDsgdmVydGlj YFlvUSwiB074IVFhzUuy PkNvZGluZyBEYXRlOiAg MDUvMDcvMjAyNTwvdGQ+ VTAfOND1tIxfAOJd yPQfMJxpIn0ezWmdnCvi BX3iECAydxllMWOgoP4w XSThxEUkrQgfCM3xBOTn rvvxb620QuOoKSP6 TRRcqADgF8VbxV9zRtLp BPUxGERwU1AcgGEjPBlh G789WOboDsX1NVSxpdJz N2FeGGWueBgpKoV8 a3C5Ms9Et3MiiiuuU3Ql nMOxYoRiYfynAAq5Z8Pa PjwvdHI+KZ84QPNbDJ19 NCz4HGZ0mCemPTur TANqS3NrwN8lOiNzFDGu ZGRkOyc+PHRhYmxlIHdp ZHRoPScxMDAlJyBzdHls KG6wZc4yBLOiTYAt dIuttZUuBlAod8xmSCVb DUrsWH8rpVbfP3XcdYO6 HCWpr6f7Lf53H84tJ8Ij dXA+XBSlwHW0xTN6 xR8dYuXaKjY0HVmxD771 TmZzaROuTphbs7slu2vz aOx1HaM1DLQckhObnZwj IBR2b8RmEs59B41t IHdpZHRoPSIxNSUiIHZh xVzkpn5cjJ5xXr3+PGNv gVU2gRU3rY7gXvGjRkG5 HLcvT930VbBluDWl Qbjqv6rdc9onrGt2GtTs TMFihhHpmYgoCGB6v9Gf Wa06E3EqaWocm1RaIil4 pb71pNRgf5K6iJZ8 Q8PhJHYfewhpwKExxKfz DE5zPYEekyhkQGBkiV6u YPKlG9e3HsUzOsO5EXlb H8WeluL9PTEgrSFx NYLtrLTDfU9lcxena3jo rvsrQsJwBWViXYq9SZw1 KYSjpJocVbRoRTL1RdB9 WVR1xULipB8ceSae vyxirZ6xZrl+MTW8rURz jQXHPH5bDdameFQ+PHRk BGI8cZvhTZmhHFChxK7v AOMnZ5y8VcSvYgE9 HOaiK6XscbG7TWHtwMXm OPCzuTZEhL2ixpajw0ri jxwsTiQyEHApSMk9UJh2 LWFsaWduOiBsZWZ0 GfB6IHK3hPEqsM9ekSys ouelwD5iDmf+QmlydGgg SXI9RYy2E2SoKdl8KUHp lTqpHS2ftUKxJQyj Fx5uxMxsyCbmSF9tDEVq inqic888ElNpl8pfRTCf zYXnUCtuLBN3M76qi4U1 QXFxSETgYUN3vEK8 cD9sxRbckhrodJYqfRhp gaCcbLorLRgeYTnpH637 AKLnqMbfScQaIIb4O1Mu Jze4ODKnrBfdMO8w iDZnQGfvZh8ygTwvqEdg KN4qJRZonzzuu567JpOn o7baNCQqeDYcABgkPAB8 K67pd8N4PMTgYGEg FFJ0cLB2sR9qyRciyzly bGVmdDsgdmVydGljYWwt SHdhV019PXOvwRaaNlBr yBh6D7DjQrs9QSTo pGyoHV1ymWMdZYfwMs0s oZsnuDiwFR2nILJpnyym c878SsSyl3mpXSDunVTr AKvpGGY2Z56im5A6 KCEqGERzCMN4jZI6mJ4b bGlnbjogbGVmdDsgdmVy nXanICbdRSjgB548NYIf cDsnPlBhdGllbnQg CGxxNOg1Z3InYanbgKA+ FP36OBOiJR27wDNchXBa x0ggkQr5NkRmNMOxCHB8 xWxgUSqis1OiFINm K76ckHHkd1V7DCVgwCkt uUTvVmQjmRI2vG1aVLqb vyzpf6kqlhvmEahia7ko lm18eP58T24gISor ZHRoPSIzMCUiIHZhbGln mu4uoT3vSr0+PGNvbCB3 oOI4mA5jRCXpLdM8HVgo W066AmTalKXdEwby t6nam2nyeQa7SzN3OMDu xnNixKsxXZX7e6OlBb86 O65zIEckABYhEHPyCTIg FDLcoGefjx0xnF7g Ii8+MCPjdOA6vDN8bO1f XiQzGfN2EMlvU771PuCn yLHmHciwI51eC6IhcHF+ OEGeNhb9CXYngNzk TB1riTRhSPpeGl3yZNK8 HmNoXjCqVWrnC2AaYBLa zvnhatkvmSF5KXHbKEFe gE61Zr1rtMvhIZSh mANTgB1hdlbgq6cjierj TiBkOKAcCDc1YTo5RRTg iVbqGjClBLW7VmW8NGH3 jXTpgA0mdAfvvsqm eX0qL3TiDEFrikwmJu27 dU6zRkDgFnM3OPdgUfh+ T8UJGGHYEITMDTwxRBAW YWBQTC54OT30xQFl u9G5cLK6G3SfFCYxafgk zrhcxQQ4NVZvFPZkcB21 dBGkTXvwRg9wg9T5f749 NEThLFPloM20Ge1b eLfwEKPhnJUEfH9vkhfj x7ykczvnQhXdVCJmWLf9 HUg1LBYapMguPrBsOAE2 MaB8ZSP5hWOixO2m nSyozmbsyB9sCpy+MDEv JUEtYJv9PkzgdRU+PHRk IQR6gJfaYZybXBUikI1z VMOxP7w4RfPkFkW1 NZtlD8WyKQHrlbebGz35 xR2hDnGxCtX7CTjsG2Dv vqV9PYUqyNAqQDifEED6 H31my1W6ACFtOCMh VYC9jKD7lC1syFkuisla bGVmdDsgdmVydGljYWwt ICrlT456KBZtzGoxUmvh ONfvEXZkLL08IV05 rKTqf2B3iQW6O0BrGVPl wbjokusriVE0HLZmADTw fF23iSJkBIoxUq7hi2Y7 b884KLVxPXLolH19 We5neOyxKYKgzLWMwM7m bwxng0zokhxhGkWnZOXz DJh0GYn5QEQmeKmfSfQd JTE4AcG9GGT6gKGu mV8luNetzfrvbE7aGuq+ TUFMRTwvdGQ+PHRkIHN0 zCsoZAkvLTHrdF3pKWUz M5l3RqSkWuM9RStc Q1BtNQSszwwnBr96sQ2v GhDwCbD8VPkbB9RkqnM6 GHMsdOEnYCjjUYN5F67s a1P5YPTvXIQqSUJ8 hDW6fJ0tjLujmolcuTCy dDsgdmVydGljYWwtYWxp K809RDHqeRabNe7WCZ00 XE79K1RvXxiabWBd bGU+PHRhYmxlIHdpZHRo VPmuUAIrDuFjcNscLQ3c Mw9dCXMmSDKxuGljbRBs OoGfh7flJNRsAQcl NE9mpCmyX5KtlNQ3HSNk n5j5Fz46Q58vJ3XorIA+ IBRwhNE1wSK3xU0xPwEh VnW3DRwxV793EvMg xYGxAbqpb8wmg6bqlHx0 IjMwJSIgdmFsaWduPSJ0 x2MmNx04F52wYNwoTMLa PSIyMCUiIHZhbGln sr9erK1wDp1+PGNvbCB3 kLL2qX1nSrXnRsM9TDtz I185IjJmsIGqGtqcU07x B9VflAO+PHRyPjx0 DHEnzLugVG8srQLjGRzd Hw3xGVH7BrXoSxKvHJlg I6SbPEArzmppijfiaTV0 XWJmADLieB12Ht0l dNnbUi4tFGUvVHJ4TXZt nQOqF9ZisF0iZjBkGVWx CXVhP7IkrFLfSKhjA942 QDhcGgQ3YGRozuGb L5BkRVDktAakMaM4j4G9 Uf9TjTnzvRRiJT1oTgOk PQf3W7UbTmg0VPIeoMxm VI3oxBLjTIlxTg8p qVzrwSjpKL3dBDAixojr f932ZzKao3fkYUVvhSXl UHdyDMO2S90dg7Q5TJCm HYWlDKX4pFK6aU1i bGlnbjogbGVmdDsgdmVy xPtsWOysWRieM677RFAj nCgpWrRDBst0Y0SgPaq7 THWrwVoaPG1muPPv KQmhHt4vrKpzgKkpZR7s XWVciwmwq314VjPvm5gu XAJnxBDhQZbgRQM8F31s o6A8BOVoRZXkAEB2 wFY0jY7gkHwgopddkUUk dDsgdmVydGljYWwtYWxp Z624ENSsyFutLj9YRym0 Y9NpScl8JQGelSbp PC2lcYQqSPyiEu7uxNxp pGmmSD8oCYOnaezgr267 AdZkv8vhHAXfpAJvQWnu QMI0W20ah5J9FCHc SFHmATT2yHX6xZ9cfGbj bjogbGVmdDsgdmVydGlj NCcaBYjvR413IOVocFxy PlBheWVyOjwvdGQ+ JO96mj81P1XyBlswCpn3 KIVlUBA4xNZ6iX0gWSIj MJbbg6J3aDH3F3MtjsWv aq8yc4yjBGNrKRyf Y29 (more content not included)... Normal [facility] Standard 10-18-2024 eGFR Non AA 35 mL/min/1.73m2 Invalid Interpretation Code [facility] Comment on above: Performed By: #### 1 [id number], [id number], [id number], [id number] ####[facility] (DEFAULT)[address] [place] [address] 84213 eGFR AA 42 mL/min/1.73m2 Invalid Interpretation Code [facility] Comment on above: Performed By: #### 1 [id number], [id number], [id number], [id number] ####[facility] (DEFAULT)[address] [place] [address] 59056 Albumin [Mass/Vol] 3.6 g/dL Normal 3.5-5.0 [facility] Comment on above: Performed By: #### 1 [id number], [id number], [id number], [id number] ####[facility] (DEFAULT)[address] [place] [address] 38721 Alk Phos 144 IU/L High 32-91 [facility] Comment on above: Performed By: #### 1 [id number], [id number], [id number], [id number] ####[facility] (DEFAULT)[address] [place] [address] 67456 ALT [Catalytic activity/Vol] 32.0 U/L Normal 17.0-63.0 [facility] Comment on above: Performed By: #### 1 [id number], 0678610, [id number], [id number] ####[facility] (DEFAULT)[address] [place] [address] 19338 AST [Catalytic activity/Vol] 37 U/L Normal 15-41 [facility] Comment on above: Performed By: #### 1 [id number], 1291053, [id number], [id number] ####[facility] (DEFAULT)[address] [place] [address] 15789 Bili Total 0.6 mg/dL Normal 0.3-1.2 [facility] Comment on above: Performed By: #### 1 [id number], [id number], [id number], [id number] ####[facility] (DEFAULT)[address] [place] [address] 27264 Calcium [Mass/Vol] 9.2 mg/dL Normal 8.9-10.3 [facility] Comment on above: Performed By: #### 1 [id number], 9676633, [id number], [id number] ####[facility] (DEFAULT)[address] [place] [address] 85036 Chloride [Moles/Vol] 103 mmol/L Normal 101-111 [facility] Comment on above: Performed By: #### 1 [id number], 7480881, [id number], 0550173 ####[facility] (DEFAULT)[address] [place] [address] 66393 CO2 [Moles/Vol] 28 mmol/L Normal 21-32 [facility] Comment on above: Performed By: #### 1 [id number], 2834961, [id number], [id number] ####[facility] (DEFAULT)[address] [place] [address] 13337 Creatinine [Mass/Vol] 1.87 mg/dL High 0.90-1.30 [facility] Comment on above: Performed By: #### 1 [id number], 5175362, [id number], [id number] ####[facility] (DEFAULT)[address] [place] [address] 13225 Glucose [Mass/Vol] 105.0 mg/dL Normal 74.0-118.0 [facility] Comment on above: Performed By: #### 1 [id number], 5419530, [id number], 9577364 ####[facility] (DEFAULT)[address] [place] [address] 77095 Potassium [Moles/Vol] 4.2 mmol/L Normal 3.6-5.1 [facility] Comment on above: Performed By: #### 1 [id number], 3379126, [id number], 0565703 ####[facility] (DEFAULT)[address] [place] [address] 19493 Protein [Mass/Vol] 7.2 g/dL Normal 6.5-8.1 [facility] Comment on above: Performed By: #### 1 [id number], 4339913, [id number], 5418403 ####[facility] (DEFAULT)[address] [place] [address] 56861 Sodium [Moles/Vol] 140.0 mmol/L Normal 136.0-144.0 [facility] Comment on above: Performed By: #### 1 [id number], 1212974, [id number], 5249152 ####[facility] (DEFAULT)[address] [place] [address] 28595 Urea nitrogen [Mass/Vol] 61 mg/dL High 8-26 [facility] Comment on above: Performed By: #### 1 [id number], 5403474, [id number], 2731062 ####[facility] (DEFAULT)[address] [place] [address] 10685 Albumin/Globulin [Mass ratio] 1.0 {ratio} Low 1.4-2.6 [facility] Comment on above: Performed By: #### 1 [id number], 1558613, [id number], 4319332 ####[facility] (DEFAULT)[address] [place] [address] Anion gap [Moles/Vol] 13.2 mmol/L Normal 5.0-19.0 [facility] Comment on above: Performed By: #### 1 [id number], 6945685, [id number], 7380498 ####[facility] (DEFAULT)[address] [place] [address] 71557 Globulin (S) [Mass/Vol] 3.6 g/dL Normal 1.5-4.3 [facility] Comment on above: Performed By: #### 1 [id number], 0464720, [id number], 4762743 ####[facility] (DEFAULT)[address] [place] [address] Osmolality 297 mOsm/L Invalid Interpretation Code [facility] Comment on above: Performed By: #### 1 [id number], 5638403, [id number], 0927986 ####[facility] (DEFAULT)[address] [place] [address] Urea nitrogen/Creatinine [Mass ratio] 32.6 mg/mg High 4.6-16.2 [facility] Comment on above: Performed By: #### 1 [id number], 4353510, [id number], 7052319 ####[facility] (DEFAULT)[address] [place] [address] 34902 Free T4on 10-18-2024 Free T4 [Mass/Vol] 0.83 ng/dL Normal 0.61-1.12 [facility] Comment on above: Performed By: #### 1 [id number], 3000174, [id number], 7279094 ####[facility] (DEFAULT)[address] [place] [address] 67513 Lipid Panel Standardon 10-18 Cholesterol [Mass/Vol] 142.0 mg/dL Normal 66.0-200.0 [facility] Comment on above: Performed By: #### 1 [id number], 9052672, [id number], 7962743 ####[facility] (DEFAULT)[address] [place] [address] 61985 Cholesterol in HDL [Mass/Vol] 58 mg/dL Normal 40-71 [facility] Comment on above: Performed By: #### 1 [id number], 5048287, [id number], 2642082 ####[facility] (DEFAULT)[address] [place] [address] 92530 Triglyceride [Mass/Vol] 85.0 mg/dL Normal 0.0-150.0 [facility] Comment on above: Performed By: #### 1 [id number], 7960136, [id number], 6074949 ####[facility] (DEFAULT)[address] [place] [address] 60374 Cholesterol in LDL [Mass/Vol] 67 mg/dL Normal 1-100 [facility] Comment on above: Performed By: #### 1 [id number], 6644208, [id number], 0700109 ####[facility] (DEFAULT)[address] [place] [address] 43485 Cholesterol.total/Cho lesterol in HDL [Mass ratio] 2.4 {ratio} Normal 0.0-4.5 [facility] Comment on above: Performed By: #### 1 [id number], 6918555, [id number], 8211587 ####[facility] (DEFAULT)[address] [place] [address] VLDL. 17 mg/dL Normal 5-40 [facility] Comment on above: Performed By: #### 1 [id number], 2612472, [id number], 6093723 ####[facility] (DEFAULT)[address] [place] [address] Provider Orderson 10-18-2024 Provider Orders [id number] #1.00OTGTIFF Normal [facility] TSHon 10-18-2024 TSH Qn 2.16 m[IU]/L Normal 0.45-5.33 [facility] Comment on above: Performed By: #### 1 [id number], 0051531, [id number], 3525724 ####[facility] (DEFAULT)[address] [place] [address] Provider Orderson 10-16-2024 Provider Orders [id number]# [facility] 10-08-2024 Coding Summary HTMLBase 64 RwyjrjqvEZi6fPb+PGhl YWQ+BD4MRAQqT72mtXZw rP4hL7WJLQtOFuprFDXX NWeQLyYdwoNsEJ2ksAKn ZXJu IC8+YR9aUXZtOblhwXHn t9C2fGV5U70cqn8gYHmj eTT6FMGcRiEzsssrg2jk vYp7EBvoHajqSeId MHJjcH92ERQ2oK40Eg11 cVEewTXiy7fhkMs7WxWj BWNzILT6wDcsFIiuy2Bd KVOlE74usXSyw3H9 IGNvbGxhcHNlOyBlbXB0 fB7mLEktxsrja2kltnyi Khd0me42aNZcs6K9dVY3 E1PtycE3CEDftJZe FiceaZYMwN9izjzsm1ex ohotOiGkGTEaPCn4AGd1 QWKtjAlvZwWbID61DSC0 AWIpovMaO2YlVADa zLkwQpV9e9A0Yy2YX6EC YzclR4IKGWNMHWwmqUY+ AO55iu41Z0PgBitsKat9 HIJgRCE6vRO5uG7v ZRIxLEwbe6F1tIP0I0Qn liMemp6gi9plHYArMWdn H92yvCYhx6H3VHEbjQH2 CBClhZbpBeEgrZ40 Oyc+HNZenFbnh0OqMubv u3rqm6ovcLk0XescWYOi vpKmlBqaZZB8b6CmKg9k NBZefPB5gXD5xB3x RxUtKpU1WDrgS779CkLm vOBiFsahY28pU4PeqVX+ MUAiThd7OOTsaWyeVW4t B1YdNMQuwuyafLMl eNcdJO1oZSIrkoxiNFIv kI0kRJMtO6e0RcOmGzJ5 BRoeK3LdYKDqplmhRe33 wW1fKsUlMiY9IVui B4QghoF7RENnnVXwIDsb TWA2V46qv0C7UWUuEGIo GZO5mCO0wL1atRbafjeb bGVmdDsgdmVydGlj VWmjOAupA479FDStcXpr PkNvZGluZyBEYXRlOiAg MDQvMjIvMjAyNTwvdGQ+ PBHyIFA7qHqnWNYb yBRxIZvbFq3xhUkywTul KV1rRVQyravpLAVooF3n MRCieOLzxCliOG5yOZSp eslra263KiJmGUZ5 KUUevQJvP4SiyH0sTbLs GJTeOPErL8TndDHrUKed L668TXlqTiO7UYGlhaNj K9PyQORlyOlvJuC0 k9B0Kt9Iw5UcaozsO7Zh tCNcAqTgGobsNRk3Q2Qb PjwvdHI+TH65DZXmUW10 DNy0SYW6qKrfKNrt DNWsR5EobK3iMqBgAETc ZGRkOyc+PHRhYmxlIHdp ZHRoPScxMDAlJyBzdHls EG6qOq4aRTMkTQGr vBpjvKRdKuYho9adLHCa UPbfON3kaCfkO0CiaBB5 DJLlk6d0Nn57X27yC5Bx dXA+PINpjIY4wPF3 uF6tQvSaVjA7HXjpN759 GfKrsANjQnnyc2yjo2az xSn0GqX6PYNyijExlXca UQJ3x8SiOc55P01k IHdpZHRoPSIxNSUiIHZh yJqihx0nrA9eFu3+PGNv dMY0eLU5vQ6gOkUpIvS2 MWnpI643WtYjtAPb Nlyqc9qby9fdxQw5PeMk OTLrzkYgzLqsFXM8e4Mp Ln75Z8FxdFjel0NeAlh7 on87zJTrd6V1fAV3 X1DyWYFbvtboaFFbzNfk FN2bAZGzdniaCQPjnU2u RBBjZ6y7WaWxVeU2WArh T5HuecI9EKCwcELv QMKqxPRGcV2ctjvmm5on emmsTmDpSEHhXIf0KLl6 KXAulKugEnIeOOT1IaM9 IBY3dRYtyY2lcDwk tybroE1aMjj+ULK6mFTo tTSPEW7pYfkkvMN+PHRk DAS6iDphGNcxGZRsuK2x HWRrM3n1XyVwDbX7 AYpbI2RyytV0QZPgoZUa MQKxiXUXsR2unrshb7iy gcooRsOiBKYiTLw2IQj8 LWFsaWduOiBsZWZ0 RyD1RHC8yAOooX6kqQts vphsmP2lOjf+QmlydGgg LAU3OOs3X9UdBli0WSHc wFkuDI4bbTKnCXqz Ez7kxNmqgKgzZR6rIAKa ccwtr921TpPtm7cvORMw uGAjPFymMEP9C95ly5C6 VBMyLKHlNST2lGF1 dT2pfXhsuvbgdIHqkUqg jpYajQrbLVngYRxtQ400 SOPbvSlkNbWzBMw6Q0Xu Nzc6CBIjmAtwFN0a nLRcBWqtLb2iiVrspKab ZW7jOLZcipaok411JvQa g1ciNKZwuPSdZZolLMI8 U98rh5O1VHIxYIGn ENK0uDF3fP6flLxugata bGVmdDsgdmVydGljYWwt IDkqH936QOZhhShbAaRt kJb4N9EkJdn0EDCg wKtgAW8wxMRlDEsfQv8k iXvusQxhTZ0rWKWdsayl k313SeTcb9gaGSOewLYq MFqzWNU0R87zf0W2 GPLvYEDpWJP8hEH7sC4e bGlnbjogbGVmdDsgdmVy pWjiMWhySHewX647MOGg cDsnPlBhdGllbnQg EHzpGWe6O0MhRrfawKY+ TW68GPEwPH62cJAowMHa a8bnoFv1SlMiIIToVUM1 sIapPOmkf4UnKITf Z67bxIOml1G8NWSihLef eOEpYhGojKG2jX3iLWcq balqi0zbemnbDcrlz3lr oc63iG39J59bBPcv ZHRoPSIzMCUiIHZhbGln bv0wjJ1cXz9+PGNvbCB3 jEJ9nV8eEYKfEjK7WGol Q867YpEssRWiGkfq w9yvy4gidHr1ZaS3LFNi seBhxCldMPX9j2DtNu52 U89yIZysDLKgSIPnPXHa GFIpxPjdjx5jqB7p Ii8+WKDlkIJ4cNO9dS2z OjSkUbV9AQjpQ984RuYu nDXqKncuT95uP1BagPK+ LBCkGmt4MAQzfIkx LJ4shOIyVPpdXh6pXIY1 RxGtPvSkWTnvM6EwVJDq mhotwpboxWC3VNIrRLRq fU66Ro2wfFrlDGNs sYMKrE5rpzuiv9yhyzqy YfTmZWVzIGf8CYm8ONTt iBhoKnDaSRQ3WbN4IUO9 hACcgD9soHqiekeb xB9qP5TuWDSvbioyQf49 xC0nVwNsPwH0DEnyKrs+ X8KGIFCPCAIYOHkyEOEO XTALMY71IY81cRBz i7N2eUH7B6JlBSCltsud wcouwNK9PYLxXOEonH16 kPSiQYwiDw0ga0N4y565 OTNlVVWikF20Yr8t sBbyNJSqrBDBaD8olryz f4drzmgcClFrJBSeSRb9 DIv1MVYywUorRfAvEVD2 EnB8DUD1mUYtiK3u pHinlpynlS3jLcg+MDEv VRXhWFa8TjfcrCR+PHRk OQH9lTiwLXkdHGRpbD8k TAOuQ7o4XrIqCwX8 WCglY0ZlHBSavpdvNx99 sF5qRbYuKjJ1MJveV3Pe hbK3DVXqsAFxTMmfHGD5 K29ry7U3FCYyRMDz VBO5jZP2vK0fzKdepakw bGVmdDsgdmVydGljYWwt ZYezD409PVGqlCkgUzvu EYgaWFJcQG33WP43 uMIjo7F6lMB2H5ZhUKRw ulfhhmtjoOE5LIRlAYLp tG86kTVnGIibGu8kx1K2 a882WYTjIUOgqQ66 Yu3xyHiiBIJcvUFLyL5u srujr5rkwgbjBvKzKBUk OWn2WIl8NHLszMctUoJb SIN4KwD9LMA3pUSd hJ6igWjkufysyF8aPoe+ TUFMRTwvdGQ+PHRkIHN0 sFswTJrhDLIpdS7kFBRt A1g4YyPjUlA5SCam H0AeMNJlblueVx62lS3a WiEgShC3IBpbF2SqngU0 IWGiuNHiRWzpOKJ5O54x q5D8UBHvAZLdSVC2 vVD0zS6dbHomnnbjzGDd dDsgdmVydGljYWwtYWxp H601PKNpoBhoUqDhN7Lp cmluZyBPdXRwYXRp XO09GW92ZC92H5DaNxig dGFibGU+PHRhYmxlIHdp ZHRoPScxMDAlJyBzdHls EM9cUs9hBUGzBCWa nEfkqAMzQwOoo1jhXLGe OXuaTA7srCrkQ6GbxRQ9 QORnd2p5Hy99N04hN7Zc dXA+GBBnfTF5zDW5 xD3gXrWeFuQ3ZNpzW079 NyTijURuVwqmu9vur4vf dLj6OiLrONQsfuHdbLep OHY5f0DmDn96Q24z IHdpZHRoPSIyMCUiIHZh nFxaqb5frH3uDu2+PGNv aSS4nXP9iH7tQrRsOjZ1 PFoaO175AbMhzSIy UhygJ17pI9TffPR+PHRy Abn4NWBihUdqYJ9wrZEv QHvlIl2rFLW3RkBzJyRw ARspX8YxSTDgamgw wdxwpOQ7YSQeXGDjkH71 Qm9duKxqIr5lDDXtGJR4 BJHecRAmD4KaxB4qPsNh DCZaXGIgH0HsjMUo TKgiV477NXsfCxH9UVWu gpJiQ4GwUBFmeGkrCsL0 i9K7Lm3RxLezyCFoZC2o LhFsJEt8B4NkTjk5 JLRckSffNC7ynQErZAuh Lv5gsOsxeSatFC7kYQGr pifuh926MoBal9ifICYd fKToDMqiWPJ1H49k w7Q8HEYrCSXeKMK8gRN5 qK1bnOclasyjuEGhbSuz zxTwbGflMLrsBXpvR361 IHRvcDsnPkZJTjo8 O2ZjLbz7HRRzkTerOX4w pRGcRPneBb7rkOqedHny BU8oLSBrhvvsm434RkXd n4yzXKNbpWCaUVkj JYV4L52yx3U1XVBuINJz OIF7xHP0bR3ajFvbvhon bGVmdDsgdmVydGljYWwt QGdzC509DDOioTww Rr6IQof1M2OyPnr7OLPs dTjvVE1evPSyXUgqIm1w sIkcyBweVK9qHYQgmzbf q948FgVes1jiSSDh dTFgJGcqBAU7U70fz6X8 SKYdWCVnOXZ8cSU6gS5r bGlnbjogbGVmdDsgdmVy tFgzKLesRCrzC807 IHRvcDsnPlBheWVyOjwv dGQ+PJ39oa27J4YsBtnl Ibi6KRBqRTV7vMY6nL9m LTBaFRlay9Q8wLU7 J2J (more content not included)... [facility] Outside Recordson 10-08-2024 Outside Records [id number] #1.00[facility] Provider Orderson 10-02-2024 Provider Orders [id number] 9#1.00[facility] Outside Recordson 09-19-2024 Outside Records [id number]# 1.00[facility] Physical Therapy Noteon Physical Therapy Note [id number] #1.00[facility] Coding Summaryon 08-14-2024 Coding Summary HTMLBase 64 OpxaaxzuRWb4aJv+PGhl YWQ+GH8DPFJlJ52cqIMs dI2dB9NIODuMTpnmOTXG BZwVVfEdidMeIQ7gmOUb ZXJu IC8+DA4cAXBuJwmicMVw s9N8jDA9D88vpo2wREpd fBF1VGEjEsBnsbsih4ew zVo2LHxjUvrsGwPk ONKrwX64LAM5pH28Np71 wLIryPQep3fjrBq9ZyXc WCGeLRV0xMkcNJfsa4Ck NPJaC94vtIPky5R5 IGNvbGxhcHNlOyBlbXB0 qT4mFAmekfzyq7zszlni Qmx0vz28vRAlu2O3aKK9 F3EbyfR5DSApzJXs CalbsNYPlB3oocbac4fr phliUmKyRAZqJZu8LRm7 JFPfkVddGtBdTO44VIO5 DDRimlGwS2ObNSPr eEgiZnT1g2J5Dk4TP8EO OsdsT4MLUVXWWGzzaDG+ FJ78oh94I3CcNhxbOum9 WUXbOPX3tSQ0pC8v ZIDzDNute2I5sZM1T6Rg ohUsba2ux3hsMUHfWIqt V50sbXJbk6F6MTJraVB0 FORsqYsrTaQzpK29 Oyc+NYGifTiph4DdUkqc x4spl8wwkKj6AffaOWIw nhLkmTmlBMW3p4EvHh6a PMJbdDX3mIJ1tJ9g OvAkBrM9AXviY931GbAi kHUgOovtL21nP3WldXP+ OLKzGsm7MPUujEitYL1l T0NcTUElwcjplCVh xBapGV7cLMDfekosVXEz zP1rNVQlN7j6TjJzIlV6 CIhvA2GsWUTvqxrjYg79 oL0hMjLjYkC0VDev T8EwkdL5APUanWPkSPbh YQF2V15it8E9FIDeUCUr IRR6iKG6wO4nyRvdjkma bGVmdDsgdmVydGlj KDxmJVbvV597VISyfAtl PkNvZGluZyBEYXRlOiAg MDIvMjYvMjAyNTwvdGQ+ EAJiIOK0oSvzQLBh sEMfFVdqAe8rvStwuDrj QY7jLHZuniizHSTnbK5n ZMPveLJlmWmyHY2aEIFh xiskb076KjOnUPV8 PEShjKHsS4AcdY7hVzXd FIGzSFQnP7ZljEFsJRfn O761SRmjStY7YSCdbbAs F1EkJDWkyUltYuM1 k1G2Xz9Ym7TgnjysL3Lw iZQqRcKzRsbaZAk1N9Yy PjwvdHI+SA41UOIoSD38 WIo2MYE5iPfrLSij ATZsB5KwpQ8pEeAqCUCy ZGRkOyc+PHRhYmxlIHdp ZHRoPScxMDAlJyBzdHls QT0dAi1fLDPqRVIh wCszoVRoOuYfo7owQOGh XHjvNG9tuJvwM0OrqBC4 EHNlj2a7Cq37B18vS0Tv dXA+GWTbgIE4mSS9 wZ5eVaYpPxH7NUsdZ529 YeQkjHTzYzxoe3wqr4le zPy1XeW1ECKewnDizJkk EUQ4b8IbFa68Z65y IHdpZHRoPSIxNSUiIHZh mTxldc0rbZ6wDg8+PGNv gUZ1qQN9hS4xXcCuSrU1 VEukJ988XoFojCOi Czyhs9kzr8ehrYh1MlNg FXUkgnEkoVrmRCL4a2Jv Yh45J6VdzJzod6RjSxj2 fh70mURjy8C0cTR2 O5ZoLRMkqnvgwIHagViz OH0vYJDtzckuDEKijM7d MHEkL3j2KaWuJoR4HStf Z8CgvaB2PYFcmCJo UPIkwJRDrO8zjacmw2ow qjiwFnEzCMLhIEd9JQf6 VYHmsUfpIyBtRBO8ToV5 PKI0cWIfrX3ztQpr ezimmF4jRkg+VGD4cKDf aYSLMW8zAcbxiIS+PHRk UHZ4dQoeYPwxTQSyfG4x IHGjZ0p2McSlUjU5 NXzoW1WycpO6EQRkoFVv QEGqgPXRvZ4etlero9xj qndqUhYbQXDsGWh7CXm6 LWFsaWduOiBsZWZ0 BbW3RZD7vOOmoX0unEpy xuerrC3aUlc+QmlydGgg ZCH6PKw7U4YqNzk7VZPq qFuaCR1dsLErKGju Ox4plImdgBtyEA2qOVYl zlwau074FgDca9rzZNIc dWOaDUysFWL9F61wq2T7 IANqSENlTVO3vUP5 gZ7rrEhfgwhsgIIdeDvr ilTnyEtjAEppLTamV847 XOSbiVitPcFtRGx5M6Ku Vhi4ECNzgUwkHX8s vIIfPOxlBz3dfPvfuDyy GN1xHJQyryrjq691YiFx n0yhQFVmdJVnWRfoWVJ5 B37jp1B9FFOqHCLn FMS2xVA9dR0paYxymdhi bGVmdDsgdmVydGljYWwt GSljB401EYNdwXlcSfOs oTd8B1NeYjk3GXYh xFokNV2udHUkGCgoXd6y sKxrvZrbRO6lUOFogjgp i496ZpXdy5mpRFYekWId OLjaHRV5U27my3T6 UECaAAYuOHK6tQN0hV6x bGlnbjogbGVmdDsgdmVy bHnoWOxxKPuhV323CTNr cDsnPlBhdGllbnQg RDkuEIo8P1TqOejzyMJ+ MH63SGUwBM37gHIuwBWf w0tdkTc5BjClUSGiHXQ6 wVdtQOfkw5VzUIDo Q09tuLPcw3D8DYTzcDid aMVjEjZqyPT9wB8tEGgx ymvuo4vdahnfTitzd3dr mo26mM28L08pCVdi ZHRoPSIzMCUiIHZhbGln es6ymS4fXg2+PGNvbCB3 qXY1zS7yIAToNuA7MTxg Q591CoYtaLZrKqhp b7jsb1rnxGw0TkO5HGTm bxWuuHzgVEL6q5LcRu18 P44dDOklSFVjEKFeTDDf TOCnjXjajn0xmK9y Ii8+JWRiiDE3xOC8sI4d SbLzSmE5UDxgF959RpEj xELmSfazH84fI2AqrLJ+ UIObLim5QFIkdNsq FK9rkMJmBDzyFr1fCUS9 MnIxMsRzYUvsR2SoGMEb hynhdjwwkTK3MQXhYYXd dF13Vk6utUbuOYJv hPLEvF1vynbzk1drlobx AoKrIPVaBVr1KGg5UWAw xArhSnJsYAU3MgX3IPV6 aJRlaP7egIentqxs aY3bK8YcJFUllcgvTr42 lQ3zRiYcOrA6ZVreNzs+ N3VLBMFSLRKZEFznWNHT HNATMW30TN69aPCs q5J5sSJ0E5GyTMXpfusg tzkabJU1TLPdHHLahI91 yKIcFGhzNx1qe0E2j019 KVQzSDDlxO85Zv0g jEbvVKVcsYDBzH8zlxka s1btlemmEkBuDQXzJEr8 MSt5MAMfyNypYgHaHJN3 ClD9TAK1xFCzdR6t fIticixflG6kQrw+MDEv TQUoFRw6CosftDT+PHRk QTM4wHosDPiuXJWuqC9h HTWxW5t4XbJxHuO8 LQsuX9PrBUPgovnjJa45 sM7yPdIfPbV3YLlvS3Xe lrT9QOJwsJOpUTaeCIR2 H11gd7D8QCAyZWAl AAR3xTP5uN0bvIzhlvba bGVmdDsgdmVydGljYWwt QSpeE843NEGxkKjnJjqr PXavCEJjGU63BB41 dCLky9J7xXT9J5OzDMBq louyxodqeNE8XRAdPFNn dC71zHIbRRghBr7bo4A7 j649RONaNNCvhU42 Mm9xjSenCVXzhHPOrU8w dxjha6vjhmtsPzSzYYFh DBb6URp5OSNduDshXzWp FMA3TaG3STZ0vLJr tD7bbTqiffosoG3bIbw+ TUFMRTwvdGQ+PHRkIHN0 qVerDUkpSSPadY7qMISg C7z8GnPfCqW1RLjz L1GnIPWdqcmcFx57pK7a DcXlBeG7PWjnI0OotmW0 LZKkiYHbOQfkKUH2C77b c7T6IFGzFOLfBKV3 uAD7pE2imYdcuzqkcHAc dDsgdmVydGljYWwtYWxp L721CGDvyQzgOm1DMH40 ID36M7BkCmxqpKXt bGU+PHRhYmxlIHdpZHRo TNhnMWDhPvToaJzkRK1c Xq3qKAYbMTPosXjgqVTi UxEby6krWIHmEShy HU1stDwnY3DueRN4FWBi j0t7Fu25V21hX6DwfXU+ KJSnxFM3uDD1sY7ePeTx FmX3AZpeZ079GmGp eRTsBmeyj6hhp2gkaSg2 IjMwJSIgdmFsaWduPSJ0 w7ElMb39Y61mMIiiJRDb PSIyMCUiIHZhbGln jm9ifG0hXx9+PGNvbCB3 mAO4jY9dOpXiGdP8QTrd J982NkIkfORtPhzyE40w O6QhhUQ+PHRyPjx0 KIWwmIcsDW1ogWCwOIrh Zg1fRHJ8RiMhAsTwNTbz N0HgZCJbrptaewlpoAI0 LAEgYTUftY84Nc7h dVqiUm7uHXVfQPI9HMZn rDWdE5EdvF8jDzCgZIDe NIDfT3ScbZDiXHifL600 FGvoHgS2OJXbqfSd U5OnXGZlsRdmQaO5k5R4 Mo2JmRykyYYsIX1pUdUz RPh8Y9SoRyw1ALXvsSvu UC8iaSFiEUnvIe4x eQudiEuvVB9fRHXhmscy q557MuSts3tcSTQqeBQb DUriEEW5F03wn8V3UTPb BLEvJVJ5lMF4aT2a bGlnbjogbGVmdDsgdmVy eXpiPKkwONjjB308MCFe gGgfWsCWEvr4R4ChEvh7 SENxcGzdDH6jzRSm REfeTv2iiZqjrMeuNG2r EWIverzzw430LuKlu1pk GPHhzJEgXVytEPV7X02m n4G7TYRuMDDiDGI3 mVW7xQ7glFwesldfdEPw dDsgdmVydGljYWwtYWxp B522JCMipBokRa4QJme8 W5DrYyu6OWLhxEst CW4gkPNyQLqeGj9vcNfk lZlaAP6aWQHboyqht333 SsBot7rgCDBoxUDkJPvh ZSW1Q30mi5J3HDJx MFYsMIN4kBH7gV3lxMde bjogbGVmdDsgdmVydGlj ERcxCBueN389KIRlqMew PlBheWVyOjwvdGQ+ FQ62hv10V4EtTszjAjt0 BFJxEDJ8eWK1tD9mQIFj OIwnw4E7xCG8P4KvmxBu vf1ku4mlTFIhRXox Y29 (more content not included)... Normal [facility] Office/Clinic Noteon 025 Office/Clinic Note Patient: RICHARD [...] 105.050 kg Body Mass Index 32.79 kg/m2 [place] Body Weight Calculated 74.087 kg BSA Measured 2.29 m2 General: Alert and oriented, No acute distress. Neck: No carotid bruit, No jugular venous distention, No lymphadenopathy, No thyromegaly. Respiratory: Lungs are clear to auscultation, Respirations are non-labored, Breath sounds are equal. Cardiovascular: Normal rate, Regular rhythm, No murmur, Good pulses equal in all extremities. Impression and Plan Diagnosis Diabetes ([id number] E11.9). Plan: Discussed with patient would like him to take the 20 units in the morning and 15 in afternoon. If his blood sugars are dropping low would cut back on the 15 in the evening. He does wear co (more content not included)... [facility] Outside Recordson 06-25-2024 Outside Records [id number] 1#[email or web address] Orders Onlyon 06-03-2024 Orders Only [id number] Richard oBykin 1940 M Date Provider Department Center 06/03/2024 FERMIN RAMIREZ CARD [facility] Family History Problem Relation Age of Onset Stroke Mother Valvular heart disease Father Family Status - Relation Status Age at Mother Father Normal [facility] Coding Summaryon 05-30-2024 Coding Summary HTMLBase 64 PkqbhbxiAXm0tDk+PGhl YWQ+TX9COQZcM39vaBUj oG3qG6ZGFRgRRhtcHAPF IVsFExPjecZyRT8ibBBm ZXJu IC8+DJ6qSHZnYhpqeKLk t0C0nAP4O32vqx7eKAyz lAJ4OAOuEqBarhjan2oh wTl5IAdtNbezRaBb IPUjtF01VTC6uA93Pf72 iJCsuYTnm9wndTp4HmRe YSToDJD6jSbzAPska6Sq KNHiC78ixLFop7A5 IGNvbGxhcHNlOyBlbXB0 rL4yCEgdzfqqq6xtitur Azx7nn22oRHuq1M9bOF9 H5UqqhD7WVWrxZGt YynxjCYFzU5ygedoy6gq gjmwKmSjXNYmRAt5QMn2 EOCqeFekXpPeNL39NSB5 GZJwspFgJ8KtZQJc cTecLkQ6g8A8Sg9HB2LH WstiM3CAQGJNEZofjHU+ WX63zj00Z1VcXgkiRgi0 KGCnTER9kTZ6vD7g XYWbAGmlx8C6rNY4D1Gm gqMnbn5fb7hcBUVoKUov I46imEBxb6W2YQTsiMK5 JEAwqCztOlWmeD64 Oyc+RCUelYjyt4CyVzvs r8ztu7vtoXk2HnofYJKh etQbjUunRAT6t5CxEs3t AEJclJQ3oKR2jH0y JtNsEdT8PAkxT469MlIr vOVkIxvvN62pG7VoqFP+ NVJlYdw7MRXiwDakXK4b W3IkVMYxerwfcFBx uMcxNM3xOVVjhfwiGWQk yC6iMIYjB1z8WiIgGlG3 IJqeH4NyKEJrfcikUm94 fF0uZxPyNrQ4PRss A7OoxbI5JNCahGRmIQfi VDY0M57jg9M8XQXiZBLy XHJ4qYX4iP8pqUbkhqcn bGVmdDsgdmVydGlj VIpyLXeiS654GPTjnGls PkNvZGluZyBEYXRlOiAg MTIvMTIvMjAyNDwvdGQ+ MVRuLQI7rRseWAJt mLBoEOydWj0dxMjmjVvs UB9uKVJuyezbCACuaK3h PAIvmFFomTxaKD5kQBGv yxvfq740StItDHA0 SBZpqBKhT2ZwhB6pIyAz WTRtYOGdD8DptVWuEIff Y500OVkeKjN7KAOejfFz Z3HaAIDlbRljMyP1 j4T9Cf5Vh3ChmyvuA5Pt cFGuRkAvNwzbIRf1J7Em PjwvdHI+SM32DLGoQE88 XSh4RBP2vZbzQZkh GAXdR0PccX5kEpGxBGFp ZGRkOyc+PHRhYmxlIHdp ZHRoPScxMDAlJyBzdHls IV8cDm7jSJQcRWGn eBcduSMfLbTxj5wlYFPv RKigYL6rpHkwY3AgwNQ6 AHJmo5z4Rl43T94xS2Qv dXA+NKOpfZQ5yPA9 zH8fJoAfHgD7WMmpH015 RaSwmUQtFnvso9sng4gz sSz2VnG8QBBtvfGgwZcc BWG8s2HcJi09G94l IHdpZHRoPSIxNSUiIHZh sSihui8ojY0qAv0+PGNv iKB2xLT4cJ4vDjUpBlR5 KWnrI233GnLpdTTv Xnjdp3epg8rxxYl3IpFh MFEbiaSxsNktHLH1l6Yi Gb08Y2OccUzwf0XmDbq1 dg18bTWch6X1pES5 I3YmNAKkuzspgKMzsFbm ME7xZGHxxfiqOEFnuQ8r SRYjA4z9ZzEbMiG7GNet L0QvvuU9GRNnyFEy VBKusKXTuO9rcnahg6su vsigTcQtRHKhZHw5HLt2 TDKirMgrUnWdEUP7SiN8 DSK3qVHkpC8iyGzj akfzbJ7zQqk+QJQ6hSCw sSUCOX1wCekzjZI+PHRk RVY0kRtgAMigUFRvrT1q ZOOtC7t6LkCmInS6 ZWueJ8TdnpU8JLLjoFJu OTPsuAQXfN2cvyoce8zl qjuiQfKsHXMnQCc1BGm8 LWFsaWduOiBsZWZ0 VxO5BPY8kEOeeY4tdQyp dyulnH9fRwz+QmlydGgg HAD8GYs7H0YoHvr1RJMa iAovXK8hkPJjULhp Xr1gnDuuoYgmIF0zFKJo duhtt101LrTeb7tdYLQr iFBoWXlvMDC9H97zt1X9 OHWwBWBxEVE3iMZ4 yZ5rzXziqgcwtGMguThf fkTxeBphSUjzOTzlF902 OMEfvOroPsWyYGa3G5Ao Kvd9YAYbkPjvOH5d oRHxQEssGn9ngDgrsLtn QC1pLIVnmowtl619ZgRx g3cmNQQnjQPsBRqhUVY2 O13jt0S4ASCkLOAq NFD5pTI2xA2syPlgjyqs bGVmdDsgdmVydGljYWwt LLobX166CILnsNlxPqSv zQs9H8TmUhb3QEHd vAxuWY6goTGqECuyBy6g hLansNpcYY7hGGMtqwgi w231LeVqc8ovIAJwdKGg XVonPRK3F55wt6D1 PGGbOIVtTFO0mNB5yJ6o bGlnbjogbGVmdDsgdmVy sJkaMDhtXBfoO842RDHj cDsnPlBhdGllbnQg GWujQVv1C7ExLnlsrLC+ MT11UGJuJU60fLQqjXFn b1ctlQv5PnSjRNBmIQQ3 zWooVFjvk8SqZPQt E15naQOhp8J9BWGqwSab jSNvCrWgaEM7lS2nAYps hjceg4tdlywmTlmcu9eg il72oR30F06qJCnt ZHRoPSIzMCUiIHZhbGln kh2lzU1bXw4+PGNvbCB3 kLS7kO0aOPEaZhE5CQac X363BoYfvSVkEivc p1owe9mctKj3KnR4ZJEg biMosAbgQWP0z9AdVg29 G44aJFltAHSfDCYzPEXr WYIckTvstn7nbA4s Ii8+NKVgqTD3cDJ4hS6k MsIrLrV1QPbeO255HtWx nOXgWadoB83gH4OurUA+ KOLxXlu9WDTeyPqn ND5zpAZoAOlsMq0yWZT3 FbZbKsFdORymF4SuSBQh gnqhwckwfIW6LNSwGHBd vS64Kh2uiPntAREj bAIWmG0jorrmt0rbgdjn XwVxFNWcVEv5JTy9DQPw gXtwUjUvHMV4PfL7HZU2 wLIbhF1hgIwxrlud uZ2tM2HuNTVobxnsIe42 mI9cBjXzOpT1NYdbZiv+ A1QJKAARLBKQNXomOWGZ TAXQJE80YY64kIMs h8Y7oUE9Q9LaJIHadssv dykxqMK8JXVgUMRaeZ74 bITfODkrQe5vd0T3s913 ZOScHGElzR82Ah7x nZehESKdrLGPmW3mpmsk s2nutoeuHkCzAIGjGHd1 EGk0NZFtqJcpCrQdWPE7 NcZ2LDI4vASrmL3i pQwgjluwbB2qOtt+MDEv JXZaMUs8CbekjVP+PHRk ACF8lWtmLNvvITKtlL1y TEXiH3u8UjJgZkY2 RXpvX5HnWETysfumUi05 bP5qSaTsCiY5OUzvT1Sx kkT4TRYzeQOoGWxuDHY0 D35nc8C8CYLeXQSi FRW5gAL8sP7twXcpayhs bGVmdDsgdmVydGljYWwt VIgqS439DKObmFznQbhn LTzuKTVqJS65AT44 fNOqb8Q5zTC9I6WzVDPu pvtajfrguYI1IGEsFDAn dX20fQNvIFilWc0jd6L0 b022LBLdKZLhfB94 Qs2llSveLNUaxZCShW5u bqpbb6rjezttLrQhZKKk VNk6SGx6XBTmuDznLeRj WXF2YbU7PXQ1dPTz yG9duKwowgtseK4kMxm+ TUFMRTwvdGQ+PHRkIHN0 vHuoAUtkEFYvoN3tGDMh O2f2ZrJjNtG6AJbh K8ExYJGmawzjMe09nO4l SzNtVnT1YJklY2HlcwN4 BURgzPFcDAhxKTC1H24g o5P2YVLhMDYnFEE4 tEU4dI4adVuctkhguXRq dDsgdmVydGljYWwtYWxp V207STCouEncZcIxN0Yq cmluZyBPdXRwYXRp DI83RF71KR97R4BjKjmw dGFibGU+PHRhYmxlIHdp ZHRoPScxMDAlJyBzdHls ZK8xSm3hCWBhQUSo tHqwmRVsCiKqo6lyQSFs VDhcQF6esGvpK3NobOS3 FZHen9v8Rc91B96pT0To dXA+FCWfuJV1iTI8 bV8tNpFkTmZ0AFeyU008 BeNobHBeZadoc9mzn9pn mVx9AaMbKTEherAxlSmr GNU6k4KgYv88W61m IHdpZHRoPSIyMCUiIHZh vFtqzv5moP1xVr5+PGNv sDR3rSA7qM4mPdHtQxR4 VAqzK427QbPbzJMs JcikU80nG3KboHM+PHRy Cvz0EQHypBekRD7cpFTs CKszMs6dVRR5HiGbFyOr EVksX7UtMZRfqfkk syctmPI1CKFyIBMncX31 Nh4gsIhiMa1mTOBfHPQ6 USSgcFWvV4RhiE8zIsKx AGTkYCPtE8BskOKu VZqzR060IKpkNxT6QFPh aoSvK7VrHHQuoHhrZyV7 t1X3Sz1VfWijrAFrJC8q VmHlEWt3I0TnAar6 RPLwtRnhOW2jvNUoZBql Ru8zhOxheBxrEF2nJIMf fipyd994HrOvn8usAAXw vQVtRJjlJCJ1U64f h8R4YRSqQXNsWFD9rEN7 uC0amLegonzhrIOfyJwk ciRrrNjvPMfjSKoeO849 IHRvcDsnPkZJTjo8 F9CsXjl8WFFftIzeRG1o cPFdBUbxUg2ypTcdqSlr GA3wSLNdgvihp365FkVs v5ggZLEgiBWpAKul DDS4B71jz6R6BYKtQTSd UEL6pKK0rE1uuKozqtle bGVmdDsgdmVydGljYWwt NAuyS245RZSwrYlo Hw1IVca9X1ZsSig5TJQl tGzdSF2ktUCuROrqFt3z qIqikRpaXM4iEWWbfpsa b051SaVag5cpAOMh sHXvXWhmFZO1Q97hp1K6 QYUbNLRrFGQ2wFZ5iF1s bGlnbjogbGVmdDsgdmVy aHvjGKltBUagU160 IHRvcDsnPlBheWVyOjwv dGQ+YA74sr73I4VzIjxr Ltk4GPPrJWK1aSA0vH7o AGNuKDrqa6V0fCR4 J2J (more content not included)... [facility] Coding Summaryon 05-01-2024 Coding Summary HTMLBase 64 AkwrmnymPKm9aXo+PGhl YWQ+HI4WSXQpN92ajOTu tD4nP6BNXEpYUksgFGMA LQzYYoBxieDrNP4dvYOf ZXJu IC8+LC7iLZBzHzyhgOYr a8U3zOM4J10byg8xWBgb zCL4TUYyIhViehpev4zf uLd6FAcsSahcSaVu VTKjzU55ELW5bU21Si44 oMVraJEyo0xqySh3JbDi FYKdWAK0aXkgGNaxr7Ws JTXdV80tnCYtp4N1 IGNvbGxhcHNlOyBlbXB0 xF7uOPmfnvdch9zfehai Thg5yd35oYEjd8A8vUQ6 R8AigtX5LUQpfZPb WsigvELImR6oczeaw5fd rdzqVxNoTARePQv2ZUg8 EQMciOlnZpInKU11HSL0 HQSefnIsR4WwEERw oFfjHmL9n2G8Bj1ND8QZ ShhuH2UHGMXABUpfxVI+ HN92wv32E3CoEcurVzq0 HZErADC7pNH1fC7u KAUqQUnaa2G4wGZ2F1Vh doFild0oa1taNMKoQWfp W83lbLMkb5W1BSDzwVT2 RVTlbVlfPhRirQ56 Oyc+PHOloUzvh7VbNmdj o2qzl5uruWm0NqrvCKCb wfUtrOrwYUY1s8FoNd8m PSEqhUD0uPT4uU1h GfQfJqX7ZUxbI335OvUc aSVzYwioV99pV6AewGD+ RJUxTag8RPPyaOqsYW9s K3HxWFZkomqoxGFv vXjuBE8wUGQducdlANRl oS2cYCXgT7n5XqXjQfL4 GMtlU9BxEVVdzvrzCm12 wJ5jKkVaPxD7PTfr E9FfyxK1KQSahNOuOZvg ELX6H21yj1H7OUIqPPSd EUQ7jVO5lH7liWgjjgon bGVmdDsgdmVydGlj QMtwRMhnI416LIAutGsk PkNvZGluZyBEYXRlOiAg MTEvMTMvMjAyNDwvdGQ+ KJAsXOI4gQupGFVt uUBmZRjfTk3xcZusaKdg JJ2eODShsgrvQAYdfF5o ZYFubIWmiImeYZ2bTYGu ppiui285OzCdYGG5 WUKdeAThV0UbtM3kAuOf PRTmIWHyJ6YndAHqUZyd L400XAtjVnF0VBCkjzSt V2HnCRPmkInfUgX5 x6R0Lz9Dk6ZaeygxK5Cf lPZgDaSnCvxnWMl7I0Kg PjwvdHI+OQ43AOMtLA75 SCs3RZG9jXzmBOqw ACKfT9VlfQ9cOfGzDMOz ZGRkOyc+PHRhYmxlIHdp ZHRoPScxMDAlJyBzdHls KW1nWu5pNBHlZTFw dOxqtUOpKuGlt2yxKBGe BHjbYN7gjFcyU4TabMC5 QABol0h3Nv66Q35gX4Gv dXA+JZWjkPX0bRX4 aC0hEsFcFaA4ZXuyA553 NsQiyGDlZmkdo3abd0gj qYs6SsC0HXVxumOidHhq FVG6g1EpPw99C79r IHdpZHRoPSIxNSUiIHZh dNitos4phO0oRx6+PGNv oRM8gLW7fH6wEaZqCgB0 HLfeS589AeQysPPp Wivzg6uwf6cbtYk6ZiZs JXBqcnEntEpwUFJ5u3Yd Sj07L8VpzEwuf7AmPwh3 pf53nGDqz1W0lZN4 N4PmJWUafhalcZVixSqc PE9sRAMwgswiYHHebJ6r XWLnH0s7QrWgOzA3ZFln N3IkupD3PYArlDVe XSSoqUQUoV7thswqc3ea xfsjFhEbATNuVCh2FEi8 PIUllSykGgZeBDR8WlM1 EUU8oVZmkG1rsGnf ntvqjY7kYad+SEN4kEVp qOIEIH6wEwyhwGR+PHRk QVI9uYpsWXtkMCCzrE8o XAYgQ3o1DsXzRhI8 VBmsF5NmbmG5QCLcaFZt GHRkgZWGkJ6gizosu8yl wqilKwMbDPKpBLd6GPc6 LWFsaWduOiBsZWZ0 OzZ0KPM8eZOtiK8byIvu umxzcM5xIwo+QmlydGgg YJZ3GEt3Z3GwYim6LKXr zEvyJP0guIIfMLsg Gt4emUljnGjdUF0tRVZa ynpdh850OoYzx4yyMXUq uEZeGCbyJEW3G25hu2B9 ZXAmGFUgFSN0aEH3 pV6oxDeqjwyddJEjwZap wdQzdClrQGogPTaxA370 FDOjbKpjNzMpLRl2I7Vf Yvz4ZURquQeqHB4z jTBjSQrsLe3qrKfeuMrq CJ6vSOUixypbn019OzZu h3xxBKBbpSCtNWcrNIA3 S44zf2N5OGMkVNKi VLV4gHV9qP2bfWpvgfyx bGVmdDsgdmVydGljYWwt ZNcvT398ATRqiXqkRoLd tLt2Y4DcFkv8YKCx rTpbAI5jtTOcCWgzKw8j yZszrJajXI8dTCLynkwy e844ZoRuh1lnXGQroUBb DSyaFHC3B06mc2G7 KXVaRAHaZMM5pLT7oF8n bGlnbjogbGVmdDsgdmVy yIepSEobGWpbD063VRQw cDsnPlBhdGllbnQg TNfyQHt1Y4GtXoitzTA+ JV39PIUzBZ87hYUrmTRe h7lnlFk9CpTdYBMcEFF8 uCaiHDyzo5BlQKSo E61smJVhq3U0YRBzdClc mSShVlFgoGZ0bV0hIZkw sbpdu7nmjhoiVepyn1ii zu07uR47B14qQBki ZHRoPSIzMCUiIHZhbGln jv8jbB7mSa3+PGNvbCB3 uDD6xP8tXAKnSxU9CTpc B879HlOnoLClMfve r5ebq5wtkAz5SuP5WTCl ylQqdAkiOUL8l7LhGi56 R82aQFhwOFLcOBIoSDDh NFJenRvnow8ujG5t Ii8+OABtmFJ5lIA6zW2q BeStZfB5XXokB225PiFy xPUzEoeeE54hX2YiiJW+ KQZyJnp5AIPxbDes FL2wiTKnRTqjRm6fYQT5 FfAaTrDeSTcoL9VxIUYe yzjwxpszzUK7ZYTsCCPk yA59Ft8wcKcuQSDi kCXPpU2cgwfbo6vpqmqc MfBqLOOnWXy9SDy1OMGd iIdxWpSaTOC2XqA2WKZ7 tGFxiO8xtXbkspdy hV1eD0TkWERwpvdlXy30 vK3eBrIwPnW0SWseZbl+ A2VBNJWJQITPPIjkIKCG PZRVGC04WQ18lOPr n5C6pOR0Z7SrVPZdjahp pctawUS8YUOeGROflI64 gNTrHEayZh4lu9U1h841 MWAgUOYavP66Za1x oHgyAZUbxMQLpF7depcs o0rdrkukFfNjITGkTEv6 QRm3KJQptBkwPkFcGBD2 FdM7XSY5dBMulF7r uDaudxeijD3gVpe+MDEv QPNwJZk6MmediFB+PHRk VXJ2tWjfJFeuORSxxZ3q QNRmF9a5KyQdIfS6 TTopY0WbYCOkrooxAk80 tP7jLvMzAcA9FXigH7Bf vjD5YJKrvKPmCHgbCYT4 Z22ka3Q2AACbZGHz RNT1eOA9rT2ehOsueaxt bGVmdDsgdmVydGljYWwt FQggZ941LJXzyPveQuiz EHubOUJcGT73CF72 bJQgm9T6zNE0H2PwJEQo rqxhbimxcUI6XAKtQETl yT30wPIgIUxrJe1yc0X3 k692NYChNCTfmY53 Hz0hsIfqQRLamJQMoZ0c llqyf2uhbbjvDgIyBXKy YKu2RHy3YLGxaCsgBiFg RUP2AsX9LEY5bBUf yA2vlThnkuohqQ6qClv+ TUFMRTwvdGQ+PHRkIHN0 zDbaMFclBHByuX2bSRBv J1k8WaOrTmU7BSte C7QyOANrodcdRo56xP2a YxWfYpT9ODlwX7HeefV1 IMMstXSzMZkaQLJ0P92r d6Y9DHSyLXSpKDX1 mQU9fR2gbVavzmrtkNRb dDsgdmVydGljYWwtYWxp E196EJOrxQbuUs6VNS45 QX72R9YwHvbtmDMw bGU+PHRhYmxlIHdpZHRo EWxsZGDvLzEjwRehNN5g Xn4xSWSkKFZroPekwERm FlRdf5qmTRZtCKha II2rbSpkD9EfeLK2YBJf i5h7Xy30P68vN8TinIX+ ESDsiFU2zFB9rS7zVwSn GxW2NCmbW993OsDi bQYkCuxqn0kzp7rwxKi9 IjMwJSIgdmFsaWduPSJ0 u0JwYn04E83xGWniQXOd PSIyMCUiIHZhbGln do1gpY5bYp1+PGNvbCB3 vJN0iN0pFcQpOqU4QJly O214CaHlcZLmSyecL15o W1GcaQA+PHRyPjx0 XMZvtCpfFE8lrIUuNHmv Wo4vODH5ElQjZfXgMVub M3PyPUVmauzuzuetyXU1 MRDyTMUtnY78Ph7q dVmmJa7hHJKnNBM0HALv uRDyD4QtvA6wXlCfCPUp YRZpV1YowNCtBUlkM478 BYcfEuE8LHAvdpTt S1VsKQQapHkvCsZ4a0V2 Un8CsQpcnUMqWZ4uFaTh NNg4G4DyHad8IQOdbFui TX7iaSDjDKrvWx8p eTxacBqeKL1xHEMesxdk p389GiLbc1tePXYvfQMz AMevXYM5E99di1M7RILd PKYrXAM7uST6lE2g bGlnbjogbGVmdDsgdmVy lRhxOVrtKTsyA639NMFk xHjsCfAJZuc2X1GbEha0 HILdmRpnAD6yjXCk UNsbYd4svRualGjsHC0j NATuvqfmo384HfRvm5cv WODhrPDlUPeiLQI0M68d z0P5XUEgYHOnCII1 iJY9wQ5ydZvwsyimiXEt dDsgdmVydGljYWwtYWxp Y553UWSmvPodWo3MIbi0 Q1UpLut2IPQzxZjh EZ9auEKyDUjhZl7cwWol aKbcGF3pPKQvvnreo431 LmDap4zwAEPxpRJiZHrr ILN2P11au2E9AWZd DHGoFNB5eVS2wJ6ygQfx bjogbGVmdDsgdmVydGlj MCfhBFboV747VXXgpYax PlBheWVyOjwvdGQ+ FH69yq77W3HoHkjiLvp8 QOKlQGR6tLX7jL7hCZCs WApbb9I1dPB5G8QwjsGz wd4hi4oqRZWdTSru Y29 (more content not included)... Normal [facility] Office/Clinic Noteon 024 Office/Clinic Note Patient: RICHARD [...] He had done blood work while in [place]. Reviewing his continuous glucose monitoring system for the last 3 months was done. Averaging A1c is about 8.2. He is also seeing his loading supervisor who increased his ropinirole 2mg to 2 [...] 106.230 kg Body Mass Index 33.15 kg/m2 [place] Body Weight Calculated 74.087 kg BSA Measured 2.3 m2 Impression and Plan Diagnosis Type 2 diabetes mellitus (UMM93-MS E11.9). Plan: Will increase his Toujeo to 20 units in the morning continue at 15 in the evening. Continue watching his diet. Continue with continuous glucose monitoring system.. Orders Orders Evaluation and Management: 49849 Office visit - established pt, Level 3 (Order): 04/18/2024 10:01 EDT, Qty: 1, Type 2 diabetes mellitus - Restless leg syndrome - Acquired hypothyroidism - Hyperlipidemia. Diagnosis Acquired hypothyroidism (TNM43-WO E03.9). Course: Stable. Patient is not going to be going back to [place] we will plan in July getting blood work checking kidney function liver function cholesterol and thyroid.. Diagnosis Hyperlipidemia (SYA95-PW E78.5). Course: Continue on statin. Will do blood work in July.. Diagnosis Restless leg syndrome (OTM21-GF G25.81). Course: Chart was updated with the change from his loading supervisor on his (more content not included)... [facility] Physical Therapy Noteon 03-21 Physical Therapy Note [phone] 10 [id number]# [email or web address] [facility] Coding Summaryon 04-15-2024 Coding Summary HTMLBase 64 XndjwkbhTDr9xLv+PGhl YWQ+YV4LCBPcK22vrIAy qV5tZ1LNVUkGCdyyJDAJ MCjMIiFsmjYrMO8cnEWv ZXJu IC8+WM6tCNEdZpvadZPr p3H4eLE6W68miw6eHGoz wCP2MYOyMdYlagotc3nq dOc8CCbiLchlTpBm HYUwiE95SAZ7jI01Er15 kDRpaXFzu7fgoSn8LpHi YDUkPXV7hAleYRysq8Hm DVItD68umJGkb0C6 IGNvbGxhcHNlOyBlbXB0 eR8mLMqusupqy8cweukg Wsf5hc50aAMva2P3uEI6 E5KfwaW9UNHdkYIx DiqccVUQhC6cnyess9yi cqkbGmAxMMSoMHb0GIt8 PSSfiQuqHqWtAE63THB2 GFVkmqZzK4IeLSLq kCfyTwD7u3L9Mr5KP7QH IijtF0TZXCCQWYewfMW+ HQ83bg37Y0AiVandWrb1 WWScUHP9wQT9fT5p ICSlIDhiq6E6tJX4P0Lr tqNpvu5rs8kxVUOsHVrw K58quHLsq7S1UMYbaDU0 XUVebWueVuYmsG21 Oyc+KRIdyWggb5OcNcjc t6xac2ciySw0CrleNQRs zwHqkCcoEGG3q6EgHb4z MQCetHP0gPT5lF9w LqIkBoL0ASdcK266UxPt hAIiBqlgN87aL6DamFZ+ QXKdPio2FIYjeEkgML9x V1BwXMNnuicwpSPr bCftDW7bHUJtduzdEKOw sR3zKRYwC4y8XzQzBcP6 UQvsL4SlSKDudockPm36 sK7fSeHwZmI6LYxc Y9FvioU3YDIdkGOxUPic TQH4R38sp2M4ZUGrOFNc IJI3bQF1pB3lfRpcxhcp bGVmdDsgdmVydGlj KTgsXXvuG539SPUeaIau PkNvZGluZyBEYXRlOiAg MTAvMjgvMjAyNDwvdGQ+ IAPtBME1sTajFFHu tTQuJFwiWl4neYcuqFqa XJ9zXBTywnfoNRDwsU6l WKZaoTXutHnwYU3hONIa qfkqr225VzDhGWP7 QULtfRRuH4IbqX0eBvBq ZBJwAPRwK3UtiBAsYHck N752AMefZsO9XZNgbrGt G3TsNNXcdBjrLkG3 y0U3Yz7Fx5XvngbsQ7Ou oWWwIqJlMjkdUCy2O6Gd PjwvdHI+VS92LXLeRF23 OUa1JSF4kBuxCKiy WSYeY8AubJ0vGaXcYUCl ZGRkOyc+PHRhYmxlIHdp ZHRoPScxMDAlJyBzdHls GL6rOe7sXBWfVXVl lBuzbSNqMjIgp8tcADKd OJppLX9usEdnE5DdnZH6 YNIly1q8Ic91T08uX6Lq dXA+SXGdhKF5uMR9 jZ4qXfNzJeI8QNnmV159 QyQqqTRkJpgwc7fpt0rb fTl0JtL9IHNoejQgaDuk UYS0x4NiBj34J70p IHdpZHRoPSIxNSUiIHZh hAjxve2viU6lTw2+PGNv nKC1tSM8oK1rWgLbEyJ3 DMmqR585JiFbeKQn Rwypf0yqv3qbeMt2BcWn RERihzVmpXrvDMZ6l9Lc Kt96Z0DuySzul8FwLzf3 ov08hOVrk0H3qXS4 S7FdSKWehzszkOXnpLnf ER0tDANgcpdyWDZgxM5v GBKaU0v3EjHxZhY2VBwc Q3ItnoC8OSTbiUKi LFEaxSVXmC4bdwjgc4ef ydyeWxAqUCYbJXi6GJv8 BAXkyZdcMzCoAJS7WrD0 WAL1hAGfwE2hsKhc qgxhpZ7yFgv+BJU2yDMp iVIDPT9qQfcchAL+PHRk QOB5cSbgAVanLTXsuF8b OYSiC8q0OiYdYlS5 VZnfE4MiguB1ESWbxPZs SQUcgGZSoH2orkxyv1wp wfiuLwDkFUBmNPl2OSu8 LWFsaWduOiBsZWZ0 TfR9JMJ5fFDhuI6rdTyg wutkrP5gRwp+QmlydGgg IPI1KAd7W3GjMnx7OEEp mRglEH7hsBRxEUla Dl5wsCbuwVzaYM5kMIPv mfcqt019EcWjp2xjXGZv nEGkVBmoHHB7O45ue5C1 GFXrLJFwQYD6aJH1 tN5lhArfdpwbtCJutRxq izRpeZlaWYxfJIleO137 MUKujPbdBfZkDKw3T7Eq Ssw1EWQziBloXU5j mVPhZDccVl1auZdysVkk YU3zEQVjdbvnl656DjQl v7mfDAMpkUXnOSceYTP8 S36yz6G8QUTeKCUz JVW0iOE7hS3zaNazsjub bGVmdDsgdmVydGljYWwt KRrfF572CQOycZwxNoAf tQs8F4KeTsp6RSQb aLcrYR8grVErJMtpHy5t yRusbBogWN4ePYOqosbq u511CtZsu0itFEMbhLNb MIkwBYZ6U97cj3F9 RONqEAMnLPK8uEG0lO3q bGlnbjogbGVmdDsgdmVy aYfvIUrcOOckV324EHAo cDsnPlBhdGllbnQg NVhyTDt3K6WuQckrbCN+ RA80GIOuSF97bCEnmMGs d7kjeXh6HfLuPDDzPPZ7 uYumFDhmd2YuXJTp F23evTNhh0U5PATmvPby bSIhArDdzEH2qG6fBDax euwgl7jticujRrvae0td bq44sM75B88sQNwg ZHRoPSIzMCUiIHZhbGln ra5xdG5lAu5+PGNvbCB3 wYY8vY5iMKDoFkO1XAbz B410YeCieGBwTduf s0owa7rzwIm1DdB2ALQk mnLbuHyuJIO1u5EzYp12 G88iSHvrOUHuSHQaBCYk AQKzqVmhql6ghI6y Ii8+ROPqrSC6fTW4aF7v NxZwRsF1LPvrR749KnXv gJPaKamkU73pG5CciRL+ SGWdZzl6KUXnlCsj JZ6bwUVjVMpiCf9bQJE3 EdXgDjWoEMlcY1CdPZCv eqoilgipfWF5GNQaTKQt hP06Sc8vrNcwOWOy tPIUmR4drrleq5enhnrd AsRqBKVtHZu2KPs7LGWm gZfrJgXpYZW5LmP9FSD2 sNIlkG9hlZqxhoyp qY0fQ8OpFJGwtotlVw67 oI6hGzDtMaM0DOzjKyx+ A3YZVDKRVVYKNCfbIWER WXHBWY15DS26bFTg r6F0aCE1F8JuYFDqjcbl oerkyGL1YYYuFUOfhK15 mZSjMYweBf2fd8G8u835 XSXmEWUieV62Vr4o tWdtTZZgtBPUeS6oyzsn e0sonkkrVrVhPANaWYq5 KFn9MOUmjXieMuJwDAM3 KuH5DNA7cNIrfN0k iAqptazawO2uWjm+MDEv VDKxIPe1GtzckZS+PHRk XKZ7hYhqPAjhLNGreP0z SMMeW2u2WaPtRpB3 ORusF6ZgSMRgukjtTr75 oR5dAoLrIsI2YAoeW1Qs eaF8NAGvtBCdRJlpKSA6 I83it4I3UFBgNJOz IBO3oPF0qG0anHlglhck bGVmdDsgdmVydGljYWwt YXgzL144TWUdmGmnVepa FTwqJPQgVG56LH13 sFKgc8I7vUF2K8WvFLBn oumkczxsgCL9XUCoDIRu vM30kDPhGBncIc5th3V4 a348SPWyKTHuaB34 Yh1gfVnqEQEemWWMkT0k nxxty8ribgdrRjNmFZFz XCl9LJm6YXLvcYxhEnTx LWL8MoS0CSP0wSEc xJ2xyZdqnzicwK3wRyy+ TUFMRTwvdGQ+PHRkIHN0 jLoyRVkkDMNgzW5oCRBl N6u1XdDrMwF0FYoe O9EtCZUzizhbJg06wN8s XlCcXrB2IYwnI6GpupQ5 LAVsaWHjLQgjOGD1B02t k0Q9CKYuKCTgJZZ9 bYR9cP3vrRbdtiioiVQn dDsgdmVydGljYWwtYWxp N484YQOmlNcaCj1HJV29 KU93P1QoOvgsxDXz bGU+PHRhYmxlIHdpZHRo IJwuWNPdVwCvsQgwVC6p Ak4wRIYuWNBwhKlxrSGz IxEwa3gwEWIiUCsf OE7vmGuoG6TjkBP3WBFm m0l9Nl91P07nZ1CfeEC+ NJKwsHJ8uEQ7rR4fMeFa MdP7HSwqD073XpZg kCElAvowt3mux0ymkGi2 IjMwJSIgdmFsaWduPSJ0 k8OpRd45P15tVNryLMAr PSIyMCUiIHZhbGln ql7mqX6mRq5+PGNvbCB3 aUJ9rF8wVeIqMiD0XAkl T361FnDboMXnFvfqX93u K1ThrJT+PHRyPjx0 TJAonDfdXH1sjZEtQWpd Ny5cOUQ7JmDuRnGkQZzk M6VhZEHfoziapnzvmGA8 PFHgTLUskZ00Ho9m sRwuJq1aNAAcFRD2VZUo mTErD0TcbE6sHuZjEYYx NHEcE1ZqoQJrBGnsR788 AYlsVgY5XOArhxZw G0FhXNRvqFpoJdI4e3G3 Cw8PjGslkWPsVP5sDiCq VPd8F2IcSev2OZNpoMko FH3fcBPuIXjdXl8k kAzqcJcqOE7gOYGwxchx c578JwNwz4rzSOYjcOKe COihSDE1H32bm4M5WZLj KBWpDKH8iOP9sR5k bGlnbjogbGVmdDsgdmVy fKrhIZiwSInxP867ECBz cQatOxIJNin4M6VmAts0 KYWozWbvOW3ruBWu RNwdFf4kvRabhFsiIG0k OUEvchlji431BhPyb0ru VWMeeXCxERizINC8J38t x9E9CRTkGKCsIDY3 tID6lZ0wyWryntbheDMd dDsgdmVydGljYWwtYWxp Y402JLUuvWugQj1IYlx7 F1FfJcq1ONRfxQwe EP4iyVLpXIkdPe5wwTea xSujDZ3hZWDnpttwm449 QmGdj9zfBEUlaFFlUEvx RBU7D03da7W7KFVt CBYhIRA2hHL2wP9nyTxd bjogbGVmdDsgdmVydGlj OXxeSWpfH958SSWouZkp PlBheWVyOjwvdGQ+ IS34yx21T1AwKhwlVga2 PTQhNCD7vZC3bE9xVFLc OOkuq0L1cPQ8F5IxcfDe ke2dh1iiIGLgWCyj Y29 (more content not included)... [facility] Outside Recordson 04-05-2024 Outside Records [id number] [email or web address] [facility] Outside Records [id number] [email or web address] [facility] Office Visiton 04-01-2024 Follow-up visit [id number] Richard Boykin 1940 M Date Provider Department Center 04/01/2024 SWEETIE TRIMBLE [facility] Family History Problem Relation Age of Onset Stroke Mother Valvular heart disease Father Family Status - Relation Status Age at Mother Father Level of Service:75735 [place] OFFICE/OUTPATIENT ESTABLISHED MOD MDM 30 MIN Normal [facility] Coding Summaryon 03-12-2024 Coding Summary HTMLBase 64 BngkqqjmTBy9uMp+PGhl YWQ+PO7QEPYlI89hvNYq pK1eV4ADSWuTQqnpSUNA SIjSDtIwwgYgPG7jcDAt ZXJu IC8+QT4uYUOnWdvxoBXq s0Y3vCK0K82gus7mABri tZQ0NLYuTfVwevbqt1nt cFr8NJxyOctuMiGf MPUneQ13DYP7yR21Jf12 vPZkiYTps1sohFn6UdAu DYOsVOW6oNikTBzxy4Ep SQBoI66snFWfp8V8 IGNvbGxhcHNlOyBlbXB0 cT3oJFoolprvi2fglkiu Vqv6mu59bKJwt4F5hCJ6 K8BwvyS5WQXebXDn HumxqPGAfT7lojjqi6vx pqugUjAtPCObUHw3HAk9 GYLwiXhrJaClKB01KEF4 ZLYebgBfI1McAEIe tOutDrM5t6P0Pp7SG6VK TyzyU6ELCUFFKBrqjWO+ CC74ax79H0IrYncgSei0 EPKrUJB4vOI6qY4r BUHaPIvuh6J8cVC8G3Kn sxDymo1ro9jdHBQnEGek D44pkDFte9F9CSUibYX8 JXUodZwhLzMfzC93 Oyc+STJdvPyzq8SlRbvk g7off2ugtCd2QtadBLJa kvZblOnnJQM1r8PyGr1h IMWqdMR6cBA1iH1g NbOdSjP3BAdkV106PyLv pGBdUqrwW82hA5IjtUC+ UTMsIkd0HEGgzMklKB7b U5KzDPPrjlqeyJTr kJwbGD3iYYAdraxiSETd dQ0cRDMlV6b0ZqEtKaP3 ICymF2TvEJFascyuQx75 uL4iRzGqUoJ4YNaa F8LhxeG6DGMrfSNpFFka ZUT0V69fa5E0XUMlZHTp RBL1hLH7xI3fwKsttsdl bGVmdDsgdmVydGlj IGjqEToiU510PPAmzJgl PkNvZGluZyBEYXRlOiAg MDkvMjQvMjAyNDwvdGQ+ ATBeAQY4aVxvIRFd tHLlEWdoBw2smQyhuBio AW6aQIMvaxfnBYDucF5q PPVuvBDltHylKC2rXVAg kpnjb690VxGzMSH0 FQHldWOqF9NyhU8fTpBy JUYnCQRzQ4DrlUBqQNae K491QLsxBvZ1PAFomtIj B6LzDMZpeLtmWdN2 j5M1Lo9Ai2SosuttV4Od kBFvLaDjRbshBVp6O6Er PjwvdHI+FM38HUExRN87 TSh7NNB7hWkzSVfs ELLmK1GhbM2mHyRfFXYy ZGRkOyc+PHRhYmxlIHdp ZHRoPScxMDAlJyBzdHls LK9jEb9hFJNyEZFv mSykuKUpGvRwd2wfFKVy FMsiMI4jgXghU7PqwYE8 SCGtl3v1Ut66J13oJ2Tc dXA+IIYkmIO5lDJ1 gA6kNmPlWbL2ZDnbH681 HaWbsSUqZxzpe7idw5mw zNl5SoV6MQCzgbHlyQqc BCF8w5CbDb08K33g IHdpZHRoPSIxNSUiIHZh pXsfbq3elH4kFu0+PGNv zIO4eEG8rQ8lWuBcLsH5 LKqnC137MtZuvTLk Nogbi0ndx4mpgKq5EjQk LUUcdgTqsLlxPYO5k8Hu Lg71M6NggIkay8MjBsh6 dw40kUSrj7A8uRR9 V6KiHZWlfnudpTTsyKdi AX8jBYSncndhAAPktH5e XADtR6m5DgVfXbL5HHbz G5YlgtT3YTQhwDGc WYYnpOWFgT8yplfez5fg cmufHaRhUYZoIXy1LHr7 VPKfzDtaGyQpXYH9ZzB0 BCH3kHSkzH5ymUec esaykY2kWhi+EWW3aVHf tJOKJW0dRjonrWY+PHRk QNH5vYswSTnbNWFyoQ1v FWIkG8a2AnEjZlV4 PByjJ5JmpvT9KTKtuJMk MOQohPCEdY4kuljkt9ga bwhcFhOkMPHyWOf9BAx6 LWFsaWduOiBsZWZ0 QcN5CFH8tUQqgG2hyAjp grmvxR7tLiz+QmlydGgg LZJ9QDa7F8SjThv8QFVo xPcrBX1ujMJwSJkw Jv7hoFjddTfhDO5oWHWx knweu622KnKzx5swPDBj pABpQGkvWOM2N48ja5R3 EDXeLKEhSHP3hNE0 mD6zyFhrnkkuzMYeyTpx bkNsfJhvKNwlJAouT908 SOLqtGkbJoKpHAp0P3Ff Yff0DHBnuMfmRG9z sPMuXYqlLf6nhAfxcUso YX8dFWMwrknvj911YrTu m2oxLKIxeALkYTzfAQN9 O67mp6D1HZXwBHLt ICH5mGS3sH0mxXnisduk bGVmdDsgdmVydGljYWwt POvsC498TXUbrRmwExXa pAd1Z0RiIve8YUYe uXbyMC5kgIYrGFafPe3f qRazxFetSW0kKOIjcwqp s402QjFad7wjPNZgsAEe MKwdJTE9M32zx5B7 YLOgZSRaSJQ8sUL8bB6x bGlnbjogbGVmdDsgdmVy eDisWBfuDVwzX465NNHm cDsnPlBhdGllbnQg QXvhVVx7K1YtXfiuhGJ+ EK99LWZpQZ11qKJvgTBm v8igwXv5NvTeHDMjEVF5 qLplVRvpi3HhNXEl C26isFTcl0I8DYWvyXzr dIAkAvGqjCW2wO6mQYwj zurbl6uipetiHsdsa8lo ic93bR32Y17rTVzw ZHRoPSIzMCUiIHZhbGln qu0kpP5yXp9+PGNvbCB3 qZC9aE1kCLVjJzJ4TZcr J831RkHuvIFwGnnw s7vuy6pjaEv7NzJ8GFQb bgUwjNksAKR7c4PgHy40 N62bUTlvPYVjUJVfHDRg SJObeCuhlk6ckW7z Ii8+HSJmdBE7eVP3mV2p KzWiFaK1ZFcdX530YmYt rEKrZvgqW07aZ6WuwYK+ EHTmFrp4LUKskDbw OC2xyPZqYZfcHl6gYWB0 HoBgRyCjAFfjP6JdMQDk upuctjlkiGK4YOCqQILo yD94Bp3yxQbaLKBd lWGPmS6ieiapq3dpbqzz YcKfMHMnEBx6MRz7YDCe jGdtHrSgULD5QdW1EUS2 qFWskZ8obCqiouqu bQ9rH3WzTKGqhchyZv98 qN8uLwWjOgB7IJzuWiu+ E3KMJEBPYTZYYRhdNAND RXSKIB09IN03jQGy i5V7bKT4F6DjQTAqxuwl aymjfIA9ZPMeYEEjgM95 kVSzPYagUz2on1D1d027 WLQvDMKooQ09Qq5i nXriNMVgjYKXyZ8hgydu c7xuurnnOgLwBMPlASy1 AOh3LQDvvZtvNqWjMHM9 NiU5TND5sLPbeX0i hYckfxyqnL7uHbs+MDEv IIWrZUx6ZavllOO+PHRk VMR7zOlwJHzxLKMwrF8n DQNsV3e9ShAmNkI4 MKssA5NlXVMjadhxEi93 gE8eIqCxThZ7ABjbJ3Mm bmW2ZLLryOGsROnyQGS9 D23fs2Z5QBIyTCQf UJI2fUH5dV5ktTbhxhwq bGVmdDsgdmVydGljYWwt KTegB607NJTwaTdrEdgi CAkpFOHzBL44RC35 bMEoe4C2zYT2N7TcIVCq xksheqwrcEO2ANOsULCw pC74zWYwXQpeMd3xt9Q0 h005JAOzAVVpuN79 Qm0dpApqWPEpoPYKeG5o valox6vdjdozSoDdNUXy YOn9ESi9KEQamUimPkJu JAO0AyD8JFA2pOJa uL2pxMewgoxarS3iOnw+ TUFMRTwvdGQ+PHRkIHN0 lMtsNBitHFIwbB6zNTRk D5x1QhFnNeB0UDxi K3LmVKTmcafdHd89xB0v IuHgYxI6AVrmJ1OmkmO1 ZQSoiZQfCUxwEEL9X54u x1W1CMSlMTUvDID3 wJO7vF4fwYfpvmecjPFh dDsgdmVydGljYWwtYWxp D633ZSJbeZzgAa5KYU89 KG74Z0CbQzvmmMAm bGU+PHRhYmxlIHdpZHRo IAduENFyMxYulZmnSA7v Nd2iKDQiEWQskRxlaPVs PsRju4zgGXWjODjb QP3rtQshR5NyuNR7BDMa q1w8An29K12hO6HywZN+ BYIylXH7eLI7aW9nSpRh OsK1FQtgK684JrLi mHHnFoiqk7sze9ocrBl8 IjMwJSIgdmFsaWduPSJ0 j8ZlBj72P84lKJsbIMPj PSIyMCUiIHZhbGln sq6qbV6rYw4+PGNvbCB3 tEU5aC4xUeVjImC4POwy K444PvMrqOSmMcplU76o A5AetYP+PHRyPjx0 DZNxqOzhAI0cmWNvXHhm Iy2lTAH2GwRqMdIhKMds G2HdWKGbcfdqfkgorAL1 WITqYZRamX14Ej3q dScwJh2dKFZoQIM7HXYl tPLcM7ZntW8kRlPcVVUy DUNtA0OfqZBlPHwqB531 TZtxUfM0IRJkhaGc X5GaYTKidOohVbB3z3H2 Ut0ClPcwrAUxXY0qMxFa JTk9C0KvRdd1FICaqOvf LU7tyGWaJLzgCc4r lCcuvYywNH5zWDUaspmw k317PdOiz1agZYBleXYv XMqxDOY1H83vg9T0LOZo TQXyRVH6fJX7zB7p bGlnbjogbGVmdDsgdmVy rRvvNNblAIxgV807RTGt qDbrTgSSRvb8N1PtCfs5 UWRjzPvpCB3atUIb WRtmPk5hkUppgZlxNO2w ZDYvhtkfi562AlLgi2kh DYWxrBFkTAhiCFR3O66t w5O5SURfFUYcILG9 cAX4aK2vyFtpniptdFHm dDsgdmVydGljYWwtYWxp H866NQPbzSfnEk9TCkm2 W0VbTfu2HZYrwDwm AE0lyQTyJEgzAl0rgPhc bVnqBV6wWMFlrhzqk639 MyWgl7mcSRAyvXXjYGuu CSY4V88is3M0DYJz SEKzCAA3dVX7tR1myNfd bjogbGVmdDsgdmVydGlj NVjcGDysS471RPZhdMac PlBheWVyOjwvdGQ+ AK24cj44Y2DuTovaWev8 VVFzPTD0xJX2aO3mYRPb MEtnu5X8sBW9W8FintNk wc0vv8vzKOFqBGgq Y29 (more content not included)... [facility] Outside Recordson 03-04-2024 Outside Records [id number] #[email or web address] [facility] Office/Clinic Noteon 024 Office/Clinic Note Patient: [...] All Problems Acquired hypothyroidism / SNOMED CT 134380981 / Confirmed Afib / SNOMED CT 98748598 / Confirmed Chronic renal insufficiency / SNOMED CT 6873476201 / Confirmed Degenerative arthritis / SNOMED CT 8924134343 / Confirmed Gout / SNOMED CT 332016705 / Confirmed History of psoriatic arthritis / SNOMED CT 236838522 / Confirmed HTN (hypertension) / SNOMED CT 8260972549 / Confirmed Hyperlipidemia / SNOMED CT 60885845 / Confirmed PAD (peripheral artery disease) / SNOMED CT 6425731778 / Confirmed Thoracolumbar back pain / SNOMED CT 447036439 / Confirmed Type 2 diabetes mellitus / SNOMED CT 236894482 / Confirmed, Active Problems (11) Acquired hypothyroidism [...] 107.230 kg Body Mass Index 33.47 kg/m2 [place] Body Weight Calculated 74.087 kg BSA Measured 2.31 m2 General: Alert and oriented, No acute distress. Neck: No carotid bruit, (more content not included)... [facility] Miscellaneouson 02-26-2024 Miscellaneous [id number] 8#[email or web address] [facility] Provider Orderson 02-26-2024 Provider Orders [id number] #[email or web address] [facility] Coding Summaryon 02-11-2024 Coding Summary HTMLBase 64 IzcswkmmFQz1mPu+PGhl YWQ+AH7CISAzS60cqPDn eO4zQ4EKFTjOAnuwOHOW CSsIDoKzawOlBW1cqHUp ZXJu IC8+RL1bTMVvWhlovQVr r3Z4pBS4X45jkk3tVWty yKL9TNArAlGmiemnr6is oTr0VGsfOsowSmNp QVOljR96CSO6zL40Lf32 fXWblCQhi3aosZj5GnRp DQVzIMT8fOgzRDkxw5Ys MFWxR78aaEIgk9L2 IGNvbGxhcHNlOyBlbXB0 bT9yXObcxfhkm4ymtaov Tpt7ji13hFJag4B8iXP9 Z1FswcK8GTNssJUd FjecuIQJuX4amdhgw2mg opltQaRcSMUeYZj5TUz1 BTJalDuvWkKyZZ34QFK9 EBIdoeErS4UaZMYv nXdyTnF7y1W7Dj9UO1UB MtpqV9FZMTEJPRrbmED+ VU63fp36V5JeKcmiWti9 MOGbWKT8vJP8bR3z VGJuCZfpy2P2aNT9T7Xw ldRokp4ur7vmOGNzGXdt I64xkGJqj0N5QYNkyZL3 QEYmnMuiOtBloU56 Oyc+DPBwuLbqo6DrYqep x7igq7dqtEh5OsqlWIJl zxTxuEiwUTF4r4BuSs1c BTJmeYP2nBE2tV0r QtTkPpO6RIyfF618NaZi xWDzRvunW14aY8HslQL+ INOiBjk5KYVfxYqyKA0p I4YtRSOpeusjjJFk wAhbVR6qMTQwluxfCOLo hD8eKDPwW5n3UfCnTnT9 FJwzR5BkOWJqraloFp22 jB8mShQdWqD6CWck D4TimmQ9SMZphVUzUIfo OPH4Y81uu8O6GDLhYVWt KDF2dVJ4pK1quTptjowc bGVmdDsgdmVydGlj NHdoATamF904CQElkOtt PkNvZGluZyBEYXRlOiAg MDgvMjUvMjAyNDwvdGQ+ XKQhAJG0iDesRFKi fITpLBdqFe4asIqfzBkd AN4fBVVlhoncDSKnuD2p NDHdkHYvtCobTM7jCNAz kiyuq504VfXzFQH4 YOGffXZjZ8KwiX0cSdRx TEXnMGCxV2VhmMYyVJkb I301GFxjOtB0KPKbqsHi I1HjXWCcnQfsKjK9 q5O6Fe7Ey4KomiodB7Sr uUTvXpPmUenqLSn1N5Be PjwvdHI+MX81OCXyWC81 AHd5DGU3eFpuAEpo LEXgC5QpjQ0uSrGkYLGq ZGRkOyc+PHRhYmxlIHdp ZHRoPScxMDAlJyBzdHls BS9uSf4nSBZmKYBc sOsmxBAnAqOwv5haCCYj IJxgCL4ibLauN9TbkVP4 VEPwj1b0Le79X80qO3Vp dXA+VJFooKZ2nRH7 hA6oWwYqCiS9GMemP715 HtFmpQSxEudjo6dpn8ch wTr7UgH7TJMxteIhxRug PWI4q7PrAv82I10q IHdpZHRoPSIxNSUiIHZh zKgzps3riM5aAh3+PGNv nZI9pIZ5lM6kKcHuPmC9 PDrsC448WwEioAEm Qpkar7zsf7adtDt4YeWz MAWrteAxbJukKZQ3w3Kr Ql23H5XsjYkzk5FwIgd6 gr26iCPno6K6aIR4 D3DnCQJhkjligEIbrGdy YP1nRBQmcsdyXZInfE4u OOIiX3e0JqTrApH2GRpw R6AuxeT6OUQuiGNl XARghACLtA9uczipe6vl urvuRbYnDTHsJPh6TVd0 JUSvnImbXoTwRII8VvQ3 HXU6jRFwtU8riUkq snmpiP6nKfh+VMB8fKAh yPNSWX8eXatniVR+PHRk NHK1yYpqJOqnWDDfnI4l YGPpB0e0ZvHuZqY1 QAthQ3YkdgF8WIYswINa BXTxdFJYpA7yetyoc1ow bzmjYjOuAICqEOb2VPa1 LWFsaWduOiBsZWZ0 KtO5DEI7tAJrjD1hdGxc autkbN3eYoe+QmlydGgg WJX2JXv5H9CpIrd7RGGk bVifXP2npIVrUZde Am4ysDiddEgmTR2jIQPd bryga857GfEwv9xnMGHn iOMjDDsvIHL6D10mf2C7 ABTgUEZrKUL7fCQ9 oM1sqDscwgtqpLLcxTun ebSazGagFTqfNTauD737 UTEioYulQaHoUCp6Q3Sw Gkw2UTEjaTosQH3p bQReZUzoSa4zsKiwdHtf IO6mOXJvlzzzo700DpMz r4zgXENspRVnMBhxSHE3 O33rg7R3HAQzZEMu DXT2rVV0lO8vbLhknzmb bGVmdDsgdmVydGljYWwt VFrbY780QMInpUapGpAz gHk5B8OwYav6OKQz yClpFS2ocAUiGGkaRj4y vJowdXrlOM6qUABfhhsp t554DxOhf8nlKKXcyLRt TLxaARX3C94ou0U0 PAVdHVJsOJV5hPT9xE0j bGlnbjogbGVmdDsgdmVy vKknCFwlUTqpW196ZEOt cDsnPlBhdGllbnQg OJafYQf4Y8UkRjanzIC+ NU94MSIvFJ62nIFvwQEw i4feyDu3LdKfEKSeQSI3 kFfgPKwzu7EqYRSl D65ueUOrv7V5BFUvvPxy xZIqUyMlyWM9sG5lNRrq kpgnn6lexeroFekvk8ie dc29jR21U97hBIvc ZHRoPSIzMCUiIHZhbGln eu6qsW1iAn5+PGNvbCB3 pIH9mV5sAXUaGnR3PRuz S984GnAltJLjQwox r8azz0rwmLs3VsR6YAId bnHegSgxOMQ9d6PxHw64 H08dVDnlQRQyDPZiBCBm CNBrxLivkd4ndD7i Ii8+ZQCcdMT5iTS8bA2q SgPoObQ5EDldN282EhSa mWKdGubvD99tX1JnwWG+ HXFvDxg8OCJmvBfe PV1stGRmVJjoDx9uUYV7 BrBxPxHiIZnqL0FzBEJd olctamjajXP6ZLGiKNAr cO11Gq9tqEiiHHDa iJZXhI5frzfje2ubztji CjDcVOUyOAo9CAn8CBNo wUbbBcPvNBO1AaD7MWD9 hJJcsC2xdOcfjlpt bA9zT6IoFDVxsfkmFs42 iV8aUdDvOmL6QOojTvw+ S5XDQPSPIXTZERwsOOZZ CZKWAJ36FD55aUDy u6P3nLS1L0ZkKAHzoeut dmgwuZU8ONEdAAUhnG02 wRRnPQfwEg5mr8R9s140 SNPtUWTlcE99Uz2k qMtaWBCpeGLLgF6zegqk p7anjezkHoOfGOWmUNf4 IEs1PKIplJqqCfQqMIC9 ApZ8VHO1yUPgoT4i fCkkgdbewG9mBua+MDEv NKSwIKt6IlmbtVP+PHRk TGN6mMkzILctGOVwbT2u FGLmO3s6WmZcRcR8 TMaoQ5HuWTFbkhzvNs05 rA2fXgEtEsZ5DUkkF7Dt jaO5UADdjMCkYFiqFRL5 D96ad9Y5JQXdEBOe XNJ1hHE1vL9mgYsfzdry bGVmdDsgdmVydGljYWwt GJaqA508UJBwfLiiJzmw XOcoYXXcWL41FZ05 yWOkf8J1fWP2X1ClPPHh yqhgvykhaGY3DTNlSSHb vI87nZIgTVdzKk4fx4V0 o655SBBuVAAvaE27 Uq9vkUakJVMmpDUAhD4k kiqdr7mseatwEvWcAMEe XGb7LHh9UGQxkDbqTkLk UBV6SmC9XNO2tQAh eE9liDmpcnhguT1fJnn+ TUFMRTwvdGQ+PHRkIHN0 hOifIEjrRCQvuY9lMWIe I5k7ZaRpEwL8SYan L9YhKEChirhyCl88cY0q QuRmMuA8VZhzR3GibsS0 GOXlmJPcCSteCPC8H81p d2S6WOPpCRJnLBO1 xPD1fJ0vyNpxnywdpVTr dDsgdmVydGljYWwtYWxp K607OLSuqWydZhWrO4Gu cmluZyBPdXRwYXRp DK76XQ51RB26I7XxUgsd dGFibGU+PHRhYmxlIHdp ZHRoPScxMDAlJyBzdHls VM2nAy5mLIZmLSOo pUllyCXaVyBhu2yqKTVi SAtmOD8loVpaZ1QnrZA3 FECqx6c3Rs23S19zE2Ap dXA+RTTphYK4rOZ3 pM6uFhYeFxK6LVrkC758 ZmFspSZnSarcb5liw9ys iEl2OkVcXVXfhhVgxVpi TEY0b0IzDl08Z06z IHdpZHRoPSIyMCUiIHZh nEqeyn8hyZ9aMp0+PGNv rFK3fIG3rH0pZtRjIbN0 NSgkQ015DqUlaYFk BdziF00gB1LfbPK+PHRy Xmw2NCJswOjkOO7fbUDa WZqwNq4sOXH8WpMoVqDa ENbuS1AkCZFdmtru wwoxtZS4ZTAfVDKyhR88 Vc2qfAfcOq3fNAOaMAW1 DHTjbBOhD2IcvN1fYwPp FBQzXLRiO2UuaFMm GKvnI203WUuxMaZ7UHAj wrSkY6GnCAPcrLnfZjF4 w9H8If1AzYfgpFUeKU4v CtSgCNf7Z3TkYus8 ZVIyrBoqXJ9kpCLnXLec Cf6fwGvbyEcyBO0gZCLz lpiqt377UwBbn9ujUKJv zZOqTWugEZE8F65u d5E3CRGtZQFoCQA0iAA4 gR7hnDefcdrlyXFjeAml buRtjWhaQAcwQCprF260 IHRvcDsnPkZJTjo8 E6JqDik3EOCabUqrZF5a zGKdERbeLj4ikGzqbRtq VF9wAVHjtbytj851EvXb h7ylLIAjzSHmUZpv UXI1W28um2C8BJHtSWBb XSO0gBN6qR8xfWlymury bGVmdDsgdmVydGljYWwt ODwfQ409TLCtsEkp Xe0MFub0F1HiPpl5LALs eKpdRT0llENtSXynKt1u lMhxhSpgJD8gMRYllsxr y659RxXao9njRALu vHAjLMbgSBH5N27yd3G8 LJMcIDFpYAS4zOT5uM0o bGlnbjogbGVmdDsgdmVy xMvuMPsyDHbcR695 IHRvcDsnPlBheWVyOjwv dGQ+JH11vk73Z7MbRkvc Jmf1KNEvCDU7iRF2uQ4l QFTbYKdnk4S4fVZ5 J2J (more content not included)... [facility] Provider Orderson 01-29-2024 Provider Orders [id number] [email or web address] [facility] Coding Summaryon 01-26-2024 Coding Summary HTMLBase 64 AtqgttzuORc0hNo+PGhl YWQ+TO3VYBDqK70slYWj cQ3bC1YXGPdJWhzfSHDF QJrDUpCwgxUdCD0grEWm ZXJu IC8+KM2tWQXbGpagtQDi q9S1yPA2C46kfy6tBJha lAF0ZSFhJcBbssgag5dm rLr0ETyeCevoIgPu WFDkaQ11WDY7cJ44Sg63 sUNmqJSxu1weqEe9RfTg PMIxFVL1nYcfQPwbb2Ic ALZjH89bpMMea2U8 IGNvbGxhcHNlOyBlbXB0 gD3qRWncvbiur1zgwfjr Ghx0qg91kPYbm6P6qNC1 T9MzmzJ3REIxgAWs WrpgvJOHdL0ranlwb1uy cbuaBmTjRKHrEHq8YDo6 CQGfcHceFvWjGV90WPS2 KNZaqyLlA2KeWHKb yZasTiS7a8S3Fn8HV6NG HjnlC8BCYYUKYSiyuZJ+ KR50on11V4GxJeejNii5 UMHqMMQ0fMU3mC6o XPGkXDvni7N3kQR4Z0Yj xsQshl3mc3lsUNJnZHxa U10bxEPry6X6RTHcaDT7 SGLweQcySyIhvW77 Oyc+FURwpPymi1DaMlho k9jyf8gntYm1MursNNTy tiBjlThmIUX2m4RpTu0m HGUhoRE1wGZ3hL4b VqSkNjW4QVorK997UvEr iWWeMcuxS89oK8UodHT+ FDEjObq2WLKheBdbKD5r F1OjAXWprqyjnMPz qEruND9aPUJidiodVMNb qS4nEFPnI5v7NsLxAyN9 GQwlH8HkOOUthkurJi54 nQ8qPwOjNyK2VWou Z8EylmX8LUBuxLVjVKsw QLK5L29pr8N9LPSiDJCe TUY9qJX4nW5tjCxteaho bGVmdDsgdmVydGlj AIskDCtgB956VUEvaTcd PkNvZGluZyBEYXRlOiAg MDgvMDkvMjAyNDwvdGQ+ UPGjSTZ9qRisTOVm aZYgUBoyTj0hgOhqaMno JN3nUXUomhdiFFZpiD7m HHUymCSesZpkRW4eTBBx wkrhe948GuUoEYM8 ZKGgcCSyG2NfcC6dRlKk DRUkSIMeM9ZsdBScZJaj F381ULsjMdW2KQLeghGu Q5HjQTNtaPimXlB2 p2V4Az1Ej0YneeulQ5Rf mWRgIiZrExizRGb1Q4Nr PjwvdHI+WL08AEGaKW57 KQs9EYY6uChiSBji JJZfI8FueS2hNeWwZTVh ZGRkOyc+PHRhYmxlIHdp ZHRoPScxMDAlJyBzdHls XK6cPw5hVODlXATm dWohbKZbIwRwv3seOHBf ZXprKO5axUbeM8QfhFH9 NTNfv3h3Zc93A90xO2Ek dXA+FKSwcKV2bIT8 vE6fHpJjXtR8DWenK359 RuZinKUiFqmyk0mfn4zl bDb5CtY1SNEscmVuzCqd PEC1j9FrRb87F82d IHdpZHRoPSIxNSUiIHZh vWcosl3xgA7iZx5+PGNv tGX9iET7cP4aTqWnAoX1 ECrhD616UbVraDUi Kkouh9syd2ljpOw6JhGy VBPuvvPfqBfaKJX1f5Lr Ms85B0JipBxhm4OoXhb6 tm99wSLew4K2jCD4 W6ItVPMcgxivzUFuhAle IC7pPFGkwpfbFCWvqH5t EGAxQ1z8KxWtKpC4QHks M4FggaB6TJIgzUWf GCWvuWAFhF4tmmhxw5xb sqiqWlSeOEWsAYr3PIz9 WPGsjYwyOyNaCGL6QfH8 QWP5pLNnzH3olCni spezbB9rQmt+LFH6tVJu oKSZZD5gHnxgbJP+PHRk YHP6gTdrZFnsKCJivM1w KCThC5p8KuQyZtV8 XMoqX2ZhqsU0RRJraPVb NUNrfIYJhZ6makrkx4jp ldzlYpRpDYXeTBk6MEq9 LWFsaWduOiBsZWZ0 FeG1PEX0rQGrtT2owPep qxgfeX4tXky+QmlydGgg MGY7YPl0W5YtYcx9EMSe zCzgZO5gsKNbCKds Gh0niLymrTjbJW9qGCUy ftqhn570XtAyh6qgNLAu sEOuMZosMUV7P75mc5X1 KGPdJAUgJFG6ySL3 jQ1tbVygrdtawZYjhArf wcLziTtpBTtuKAmvZ424 COKzmIatNcNgAOm9I7Dy Ely4QUPynZtmXM1u mGWvARbyAc5bjXedzOyw LU2tWXHanuncp652MlLu j1bgZJDlyEDmBRqsFCW9 D52qj4J4LEFaCQNz TZD6xUX4iR6elLgizvuk bGVmdDsgdmVydGljYWwt SLyyL981PEFhgRakSzCs vPa5K9IiUfe2IXPu nZyrNO4srPArZMthJx2h vGayuMmwQY4nQIMklknt t805KhDsk7sdKLNiqCXs YTelBAZ7E65iv5F5 ODYwFXYmSDE0bZB0wM5y bGlnbjogbGVmdDsgdmVy oJbhHTcdUAsuH762FUAt cDsnPlBhdGllbnQg CAxhJDc4R7ChXacoeOI+ RX22YVXyPI66vYIhsKAd i0euwCj8LsOiPXYdPYA6 dRenEDpdk9NpCNBt O60suKQqc0X1YOCojFov sDYsHoPywXF3vN4iAYdc zvmot8elovchHglmw5xb km33sG82P31tEPkm ZHRoPSIzMCUiIHZhbGln yo3gzJ8zIk7+PGNvbCB3 zBB4uW9qRKUoOwF1HLit B941TsHfhFLeQoww k9nzu0nysCq3UnR6ZAKv xoDfwZloSKC0m8LwHc38 Q78hZOfnVXRzNMHgGPPl BSHjgMuxnw8jeJ2y Ii8+UZDvnEQ7zIY7pO2v VqGlPwN4YEyzZ356WqOc iZHsIeluP08lE7IqlZL+ DYIiPef1FFMufAjg IB5vyOLzZNjvDf7bQBN3 BeOuYaEfDOfiN3ZdGKYe dyoftzgpuYE7XFDkZCPa dL14Zo5tyXnwHHDq gYTPlR4iwhqyz8ondtan PdLnCYZcLIv7LQl5FZYx mAhrTrSdVTT9ZqN6QPA3 aJZzuE9fqKdwelwp pL2gC0SgHSSunbsfGj65 yP4nQcHzUmM3YYdcEzx+ P4CGZLBHBLDFWJmuQKCI QNJZGR26UD85wCIe n9L5jWA2W7PrZVQictps iddyvQO4EGQmWIElvG58 eVSsRLybLo3gu8S8q322 CTMsTMMnyB56Pz8q hZlcFZPltULGwF8antmy n5lgtgdhCaTgNMNlWGh1 YDb2OLNoeMonCnPkVCB3 DhR6IDP8jASouR0h uXlrvrwudQ7bYok+MDEv YEYeXOt3VtzofFD+PHRk KRF0kHbbNIixZKYzrC7m LGPeK6a8BaIuFwU1 LTuyA2FtHZQwwkfhFa73 oG9zOpGeXxS5JBrrA6Aq rjA8WTDlgOEfXSzxNUF3 O94pl0U2MMEyLWHu LRY3dZQ4eI3btRljidyk bGVmdDsgdmVydGljYWwt VManW400XPKifNsfNsil ZTsyMRHlJY17SE47 vVYav2J7lRN5H9AjCKSt xqakbbesfLL8JVXhRWNm qE25eIZoUCndQr6oi8Z9 i852FJLjZNRleA77 Ma2xiHvzEOMqpUPOtS1f mbpdh6fogzyoPzImYTGg MKq3TEl9PSEcpXxkMoYr XRN0OnR2NVT7xXEh vJ4ivDjzxfipoC8uDpj+ TUFMRTwvdGQ+PHRkIHN0 iCxjEVssKFOwwE3ySHMi J4t5StEsSxC9AUcd C8HeOHIevrikSi13xM3n TqElPxB4ZMazN8SeenC8 NGVdzGKfUVgkULQ4W01d i7W6UQAmLUGvSWX9 pUJ2eQ3efGgffwvuyNHg dDsgdmVydGljYWwtYWxp H386GUOorIqrOcXcA0Oc cmluZyBPdXRwYXRp IU96BC62YN96X2PyPnfj dGFibGU+PHRhYmxlIHdp ZHRoPScxMDAlJyBzdHls JU1bCp5xBWGoKHUx gWvyoDAkWiZuu9ydYVSt JLokFP1lcOpqB4UkkNA6 ZJZpf0x3Bu57H23dL0Kz dXA+SKRtuBC3oII1 kF4aEiOrWfP5PMfhJ041 WcEaoHKrKbdnu6aak2vk gQv5MaOiXYIaowRjzVky LLO1f4XgIj95L79m IHdpZHRoPSIyMCUiIHZh lUzraz0smO4jEu8+PGNv uGZ5yAQ0yK3zQfWiGiC5 XMfvO958EdFxxBHz XmteP11oP1OdvKE+PHRy Uwi9UBVfdGixIP9bpEBe DSswWi3zRFY5ZgVzQuOj MYbjH9AzXRPhelrj qztbnWG2GADkJIKxfR66 Ly0ocYeuZa3jLHLyWYD6 YYZadYRuX4KqdC0oXkJy HJFgDWMcB6TqiRLd GNhcD218SPqqPsG8GYZn rpAuG8RmPWNrcLrhHpB8 q2M0Mh7NvOsdjJGqWM1d EhLyATt0K9SlBke3 CWCasJcwXC1iuUZiBWxx Jb9vdZkthOvnWI3uSYMj afjpw157ShTxf0yvPDEy mYUiXXdiJSG5X71w a8S6UDPfTVYqQEV7eJH2 tI9deDmpmxvedTSgbUss bcRebZbqEQlpAYlvO788 IHRvcDsnPkZJTjo8 B7FsYxm3LMDxbWbxHC4u yKSrBJyiXs2qnUgjbRrf VQ7yNVTdyhbfd570CwCg t3quMSSsbBJnIPxn SWB1X46in5M7CBSuLVGz VZY4zSY4bH2dkNrzwyyj bGVmdDsgdmVydGljYWwt IIvtJ672QTHojDfk Dt9SStr6G1OhVmg6OBUp qPorKF1hoLKkPIiaVi0i pZdmfSuuAE4wMGUnnkeq g164LgOnm4afZDOl gPVcXOawYUI9B41hh3S1 DYVsMAZbBPE3iRY9xU5v bGlnbjogbGVmdDsgdmVy yLloNFsgKWmrB300 IHRvcDsnPlBheWVyOjwv dGQ+GJ10ee52D8IvYttt Nmp7OGXyDRV1uUS1xE5t HAQaSCbes3J2sIL9 J2J (more content not included)... [facility] Office/Clinic Noteon 024 Office/Clinic Note Patient: RICHARD [...] He does continue to follow-up with his loading supervisor. He is also undergoing physical therapy at [...] subcutaneous francisco javier (more content not included)... [facility] Coding Summaryon 12-12-2023 [facility] ZwkysotvTLv7jCj+PGhl YWQ+XP4FBXGxJ82xeTKv qH9aN0WWUVsNXmbzMFWX VLjEBjXbzoFqSH0fhRYm ZXJu IC8+CL7jGTGzUiovkYHa y8U3tKU6D05ymy0vYEpn hRH0JYHtVgUynnbed4xd qQn9LQexFserArVy ZADzrP16HEM7tA38Em46 iYVwnRRrl7yskVg4VxZv HQSjBHN4qNfpIDizw4Fo YWHsG21igZOyp1U9 IGNvbGxhcHNlOyBlbXB0 qU0cJPffwfqps9zlwhvt Ftn2sb00aPRtz7F3xWP6 D6BhinH6FHOfyYBa HkovkNSMaP1nmmasx3fn aatwFcUdZAVhWRu9BJx9 VSJtvFxyRpXnHM22DXK4 OELcjxLfK8VlOYYq vMgoXhY5v4M9Mi4KX8OT LvfdI4RAPUXVZAglkBG+ PZ38hw67I4VvDswbVtv1 QTEsGNY4aXG8cF8a KJBtGIozz2F0cZX0B2Ar yhUxzw6bh9szGPWkORza H94gcGZao9M3GTIbbPU1 IYWxjCsgRsBewR60 Oyc+LYFgoKzla3YgOozn h0pye6gmmXe4PwecDZEj odCpiRfpCLJ5u1SpDv8b ZKCleZI5sRX2gE9j XbQuStE2ATgeS283HwPs aFCwWfddV84dU7SosJU+ YBTgHwj6ELJgkCweEI8q H8TyPNTtnbobbINu wNedTW8oKBOaihrxKBJv zD6fHVHtO5z7CmBaLnY2 VJjcI0OgDFSwtgzxWq60 uQ2cOtWxRjQ4ENfk Q8JlgzA2IXFjjYXxSCot GIH8D31po2A7BBZgTDVe TSR6gTY4qA3lgRcchkvb bGVmdDsgdmVydGlj BEhxXUtuY859IYVgkXbv PkNvZGluZyBEYXRlOiAg MDYvMjUvMjAyNDwvdGQ+ GOBsKCZ0bGroLVKh gTRiXGucMc7acPksjSbw BD2jWXVurwfmONJazU0i MYWtlCJaiOesFD5tPOTi kjbyc699IxZfHHE0 BAXpfHDpY6ZzcA2qPqVp XCWwUDMaL9PpbQQeIOmk N906RXyiPbB6YPCxlvNi H4SuVSPvjWffUsG7 c9K3Sm9Cs8OixmlrF2Nk sJMyNjXzEqxaHSg9T5Ei PjwvdHI+LQ16KUHdFH91 GZe5PNR1mWwlCHzy SHZxK6GfiZ9dQmBhLSZa ZGRkOyc+PHRhYmxlIHdp ZHRoPScxMDAlJyBzdHls DB4bFc1sKQOxYVEd pGbnnXTdGjJzi0lhNTMf VZwfEJ8jlArsI3JawCZ9 TESje2j2Ij44K51kN3Wf dXA+HNPkxCD8sNW3 fH0qFyCwTbP5UNskF804 EbRusOEdZuukn8uno3ij qGa4LcX0MOLvppQndVdo ILO4f1KmWd11B75z IHdpZHRoPSIxNSUiIHZh iLrrag8fpP6eRi3+PGNv jPC2oEF4jX3fDzQwPaD1 OHecQ620ThOphEXt Doeuv2byr2aogFc9UuFa FSCozmGyjEpeAZW1y5Jx Vv42M4VnbLmjb7SaYdk3 pg26gRTsq5I2qFD8 T7ZxTFYrgcnxqCAgnYps NW9hMSWcxicrZNLfqQ9f JCNiQ9h1JaIhWiR4EMfe O9UdheZ6WXDzbPEu RTWzkCNOdO8jkhtmo1yl qviwYmAuVSCcWKh8DPq4 QGAyhModSoYmDMT7TiX0 TDJ9qYEqoK3jtOxu frmpcE8fMgi+AIR1tVTp wYHIAQ7bVgcbzOM+PHRk YBV5hSjgZZvhZSQkpT0z DPCjX7e7EcPyKwB8 CGogN4VcweC7SBBuzZNp QCSgkDKZjD0vfvxmo5mj bqbhJvOaFINeERx2FOj7 LWFsaWduOiBsZWZ0 ApZ7DGE3yKTejG2juBor llmvqF5eRkb+QmlydGgg VBC1TKw2U7EfKdn2OJYc aVshZW1maSUcFNoj Qu5mkJwdlXxaZX8qFHPl stngp491XhMwi3scSKJc dCVtUXtyUPU3O56nh0V1 CDBdTHNtGCB6fSZ8 cW0abYkftqhjlRAjcMwg qxNhmCebMXvmMCaeA650 AZPogUisHlCiCZj5H8Kj Nmu3OYXdyAcwGL3t vSDuJTgaAe3wdKkfwFra WC0iGWTeemnno985NsLq x6szPUHfaQYiEAwuACB0 H22lr4V2MWXoZGSh FML2fFL8yC8pxBrfxytc bGVmdDsgdmVydGljYWwt VQcmA845BOIteBraRpOz sAc1B8BgHva4MYGb aScfRN5ktQIcEFxeSi9t oZlqjXjxOT8eZYCrpczj r373QvXul6ujJDHbmTQb SYgaNTA0W34os6J2 WDEpJHEjZVD6sMV4zU6z bGlnbjogbGVmdDsgdmVy mHiyIDyhKMdbE018RUBn cDsnPlBhdGllbnQg NGarRJj6K4KzJgyggIG+ BH84AYWuFI74oWObnSYg b3zmsKh6KtEtIDZmSAX4 iUvlJWitw4NzFPLn V48vaWSxp9R0YEXoyWfs kGLvZgAadIC6tR2vEQid wduxd5scfgumMmpgd0rz fg75wV92Z74lFGsn ZHRoPSIzMCUiIHZhbGln xi3jdO6jJs8+PGNvbCB3 iSU8gG2oEASnHbI0ESbc X364PjLnpMTzQbcm a4eia2xgtLb5YbH2DLJv yzKqyCbyNCC6z1FsYc42 T11wHFkwSJPsYUAgFCGa LEFzrQxivu8vzT3g Ii8+RSNfgFL0tMH6wF4t BtToXsJ4LTpdW881JlSa xGFwDbyzO00gJ3YvrHJ+ FOKdAqx9TMKtxCgf TY2mhTEhCBxdWh2hPTM5 LsPbNdWoCNhdO4WtLHPq yqawqfcgmLJ8OMJvGJZi cF65Ln6pjZloUAAk xRBHnI5hhdolj0msbcxd PcPyGWXlXBs2OKr8KMPe xLosSnDeFBO4PgC6XLY1 yLFbaG6glBgzneus qF3xL9QdHFWylpcaQe34 xM0eVsYiIgZ0DSeaVzp+ V2UYHMRBCIGQYTcsMPRL YOPDLB61KH29hHAe v6N3jOI3H8OmYWKofysc zdnvsCL3PXMgALDoxR30 kVAxMVweHq2ta9B8v655 AYEpKRJzvJ94My1t bHycYPFsrPXQlB2llpfy v6fhpjjsClBkHYZdTTk5 FKt2IKEmwZthJbMvBCB9 DsP3ORT8qETdlK8h ePxlkkcpzT3oHbc+MDEv NYGvCUg4HogruJT+PHRk GND6cLqgNXoxUHAcnO0i QPLuO4a1RaIuFjY9 UOdgF2FiPWZswnchGk51 fV1jIcEdPrL4ZZikY8Al xvG8QOVsyLHgIZliXTN3 N81ou0R2IOXdKRJg SMK8tPX4oL7peLsotffw bGVmdDsgdmVydGljYWwt LZjtT170JJJzlTpiXfqi YNqhUQWoYV52PI00 qSFaz0S6sOW1D1DqTHCo nalfutjfvRR7XCCbGOFx uA57sGTgUOzeOw8ou4F6 s372CLAyYQSvvK32 Er4ydXmhZKFvyMPWsJ2k zwkqb1ejwwyhGoZuJGQm HMn2UKl3HXEcmVhsIcJw MNH7DaN0SMS4tEXj nM4jxElzsenlvK2gTmq+ TUFMRTwvdGQ+PHRkIHN0 lNgyLIfyWWFpjP3zVWXq W6t1ZhDbBmM2PNzq P0ThUXCiwgcsQn54eF0t LuSoKqG6FLpsS8LzbfL9 UFYmqBEvHDamDFU0M24z v2B9EHNxXMHpMMD8 qCG3vU8etUrzpmzblVYn dDsgdmVydGljYWwtYWxp D816JMNapCcuRzAiQ8Vd cmluZyBPdXRwYXRp CW94HL43PY79X2IdTjkn dGFibGU+PHRhYmxlIHdp ZHRoPScxMDAlJyBzdHls ZI8jWd0oDHQuQKWf kYcatGZsZpSbh3viVNYq HZswCO0ehGwhW5UkyMY7 PLKbc5g6Fx69L56yE7Nf dXA+CMYdpNH7aHS8 iT4jMeNlWcO7CJebS036 HtIdhYCeTqfnw1hgj4ul sCf3IzXnBQOnyrQifCju RMB7e9GoAr28Z32w IHdpZHRoPSIyMCUiIHZh vYxnzu4yhP8aBq1+PGNv iNK2rUC0vX3nIzPzTkB3 XAqyW478SrRfkXMy YayrI66fZ2LcjOW+PHRy Roq0SBKpvNdeDG1vyZKj EKibWd1sOOO4HrZtDxJm DOmnH5FlLUVvyokg eocphMH7ZMFaISRnhC91 Zc4lwBbzLp8zDKMlPUL6 SHJgjHZyQ2LxgJ3aXzHz RVLgUOOsR4XhjGDy YGncU162VHwpPbT4ZWLt vmZwD7NuEMCurYykGyL0 k5N6Ph0XaElafBWfVD2l QeDmAPs1K1TfQzq8 CRLonNpnIL2ciELaFQan Ie3gcBseoJzmHJ1uNRZn iypvf911DbXtm1cyUQRe fPGfQFqrQWO5G62h l5S1XXEwBMJeCNQ8sEP3 eZ5efYwdvxgfvIXttQyg cxZmrVetYRazAAngP556 IHRvcDsnPkZJTjo8 Z6SiGst1XPZkjUouUA4w iNWbLKneOk6oaIthxDcp LD4hRFAcqzqsw876GuOr c2puMQTweMAuORwo ORG4T14qy7U4NQDbHPIu RWE4kJO0fN4nlQyvwsoh bGVmdDsgdmVydGljYWwt NHaeQ368NZOzfPbb Aq9HEmo3I9ClVoq7LESl rIavEQ3npKQoKSauJc6l lRapmJdkFE7vZVMaquvg e624WxGnb4xyGNLq uIXuKEciAGL3K42hz3S2 IYOgGEMbEVC8gAR6lP6r bGlnbjogbGVmdDsgdmVy qPlvKRkmEThsD455 IHRvcDsnPlBheWVyOjwv dGQ+NR14lz03M9NaNwty Lay0CCTfFCJ1oPB4dO7e QJDnJEfqt5L8uFS8 J2J (more content not included)... Normal [facility] BNPon 03-26-2022 Natriuretic peptide B (Bld) [Mass/Vol] 629.0 pg/mL Normal <=1,800.0 [facility] Comment on above: Performed By: #### B MP, TSH, BNP, LIPID #### [facility] [address] [place] [address] Dr. Aaron Ling LIPID PROFILEon 03-26-2022 CHOL-HDL RATIO NORM SEE BELOW Normal [facility] Comment on above: Result Comment: 3.3 - 4.4 LOW RISK 4.4 - 7.1 AVERAGE RISK 7.1 - 11.0 MODERATE RISK >11.0 HIGH RISK Performed By: #### B MP, TSH, BNP, LIPID #### [facility] [address] [place] [address] Dr. Aaron Ling Cholesterol [Mass/Vol] 212 mg/dL Critically high <=200 [facility] Comment on above: Performed By: #### B MP, TSH, BNP, LIPID #### [facility] [address] [place] [address] Dr. Aaron Ling Cholesterol in HDL [Mass/Vol] 86 mg/dL Critically high 40-60 [facility] Comment on above: Performed By: #### B MP, TSH, BNP, LIPID #### [facility] [address] [place] [address] Dr. Aaron Ling Cholesterol in LDL [Mass/Vol] 98.4 mg/dL Normal [facility] Comment on above: Performed By: #### B MP, TSH, BNP, LIPID #### [facility] [address] [place] [address] Dr. Aaron Ling Cholesterol.total/Cho lesterol in HDL [Mass ratio] 2.5 {ratio} Normal [facility] Comment on above: Performed By: #### B MP, TSH, BNP, LIPID #### [facility] [address] [place] [address] Dr. Aaron Ling HDL NORMAL > or = 60 mg/dl - LOW CARDIOVASCULAR RISK <40 mg/dl - HIGH CARDIOVASCULAR RISK Normal [facility] Comment on above: Performed By: #### B MP, TSH, BNP, LIPID #### [facility] [address] [place] [address] Dr. Aaron Ling LDL CALC NORMAL SEE BELOW Normal [facility] Comment on above: Result Comment: <100 mg/dl OPTIMAL 100 - 129 mg/dl NEAR OR ABOVE OPTIMAL 130 - 159 mg/dl BORDERLINE HIGH 160 - 189 mg/dl HIGH >190 mg/dl VERY HIGH Performed By: #### B MP, TSH, BNP, LIPID #### [facility] [address] [place] [address] Dr. Aaron Ling Triglyceride [Mass/Vol] 138 mg/dL Normal <=150 [facility] Comment on above: Performed By: #### B MP, TSH, BNP, LIPID #### [facility] [address] [place] [address] Dr. Aaron Ling VLDL CALC 27.6 mg/dL Normal [facility] Comment on above: Performed By: #### B MP, TSH, BNP, LIPID #### [facility] [address] [address] [address] Aaron Ling PROF CHEM 8 (BAS METB)on Anion gap [Moles/Vol] 7.4 mmol/L Normal [facility] Comment on above: Performed By: #### B MP, TSH, BNP, LIPID #### [facility] [address] [place] [address] Dr. Aaron Ling Calcium [Mass/Vol] 9.6 mg/dL Normal 8.5-10.1 [facility] Comment on above: Performed By: #### B MP, TSH, BNP, LIPID #### [facility] [address] [place] [address] Dr. Aaron Ling Chloride [Moles/Vol] 94 mmol/L Critically low 98-107 [facility] Comment on above: Performed By: #### B MP, TSH, BNP, LIPID #### [facility] [address] [place] [address] Dr. Aaron Ling CO2 [Moles/Vol] 36.2 mmol/L Critically high 21.0-32.0 [facility] Comment on above: Performed By: #### B MP, TSH, BNP, LIPID #### [facility] [address] [place] [address] Dr. Aaron Ling Creatinine [Mass/Vol] 2.27 mg/dL Critically high 0.70-1.30 [facility] Comment on above: Performed By: #### B MP, TSH, BNP, LIPID #### [facility] [address] [place] [address] Dr. Aaron Ling EGFR-AF WALLISIAN 34 mL/min/1.73m2 Critically low >=60 [facility] Comment on above: Performed By: #### B MP, TSH, BNP, LIPID #### [facility] [address] [address] [address] Aaron Ling EGFR-NON AF WALLISIAN 28 mL/min/1.73m2 Critically low >=60 [facility] Comment on above: Performed By: #### B MP, TSH, BNP, LIPID #### [facility] [address] [place] [address] Dr. Aaron Ling Glucose [Mass/Vol] 214 mg/dL Critically high 74-106 [facility] Comment on above: Performed By: #### B MP, TSH, BNP, LIPID #### [facility] [address] [place] [address] Dr. Aaron Ling Potassium [Moles/Vol] 3.6 mmol/L Normal 3.5-5.1 [facility] Comment on above: Performed By: #### B MP, TSH, BNP, LIPID #### [facility] [address] [place] [address] Dr. Aaron Ling Sodium [Moles/Vol] 134 mmol/L Critically low 136-145 [facility] Comment on above: Performed By: #### B MP, TSH, BNP, LIPID #### [facility] [address] [place] [address] Dr. Aaron Ling Urea nitrogen [Mass/Vol] 48.0 mg/dL Critically high 7.0-18.0 [facility] Comment on above: Performed By: #### B MP, TSH, BNP, LIPID #### [facility] [address] [place] [address] Dr. Aaron Ling Urea nitrogen/Creatinine [Mass ratio] 21.1 mg/mg Normal [facility] Comment on above: Performed By: #### B MP, TSH, BNP, LIPID #### [facility] [address] [place] [address] Dr. Aaron Ling TSHon 03-26-2022 TSH 2.606 uIU/mL Normal 0.358-3.740 [facility] Comment on above: Performed By: #### B MP, TSH, BNP, LIPID #### [facility] [address] [address] [address] Aaron Ling B-Type Natriuretic Peptideon 01-19-2022 Natriuretic peptide B (Bld) [Mass/Vol] 749.0 pg/mL High 5-100 [facility] Comment on above: Order Comment: Result Comment: PERF ORMED BY: [place] [address] PATHOLOGIST PERFUMER SERVANDO AKERS M.D. Performed By: #### B MP, LIPID, TSH3, BNP #### [facility] [address] Basic Metabolic Panelon Calcium [Mass/Vol] 8.5 mg/dL Normal 8.2-10.2 [facility] Comment on above: Order Comment: Performed By: #### B MP, LIPID, TSH3, BNP #### [facility] [address] Chloride [Moles/Vol] 103 mmol/L Normal 95-114 [facility] Comment on above: Order Comment: Performed By: #### B MP, LIPID, TSH3, BNP #### [facility] [address] CO2 [Moles/Vol] 31.5 mmol/L High 22.0-30.0 [facility] Comment on above: Order Comment: Performed By: #### B MP, LIPID, TSH3, BNP #### [facility] [address] Creatinine [Mass/Vol] 2.03 mg/dL High 0.64-1.27 [facility] Comment on above: Order Comment: Performed By: #### B MP, LIPID, TSH3, BNP #### [facility] [address] [id number] [facility] Estimated GFR ( Ava 38 Normal [facility] Comment on above: Order Comment: Result Comment: GFR estimated reference range: According to KDOQI guidelines, <60 ml/min/1.73m2 is sufficient to diagnose a patient with chronic kidney disease. Performed By: #### B MP, LIPID, TSH3, BNP #### [facility] [address] [id number] [place] Estimated GFR (Non- Am 32 Normal [facility] Comment on above: Order Comment: Performed By: #### B MP, LIPID, TSH3, BNP #### [facility] [address] [id number] [place] Glucose [Mass/Vol] 99 mg/dL Normal 70-100 [facility] Comment on above: Order Comment: Result Comment: [place] om Glucose Reference Range is dependent on time and content of last meal. Glucose of more than 200 mg/dL in a nonstressed, ambulatory subject supports the diagnosis of Diabetes Mellitus. ADA recommended reference range Performed By: #### B MP, LIPID, TSH3, BNP #### [facility] [address] [id number] [place] Potassium [Moles/Vol] 4.9 mmol/L Normal 3.5-5.1 [facility] Comment on above: Order Comment: Performed By: #### B MP, LIPID, TSH3, BNP #### [facility] [address] [place] [address] [place] Sodium [Moles/Vol] 142 mmol/L Normal 136-146 [facility] Comment on above: Order Comment: Performed By: #### B MP, LIPID, TSH3, BNP #### [facility] [address] [id number] [place] Urea nitrogen [Mass/Vol] 50 mg/dL High 9- [facility] Comment on above: Order Comment: Performed By: #### B MP, LIPID, TSH3, BNP #### [facility] [address] [id number] [place] Cholesterol [Mass/volume] in Serum or PlasmaOrdered By: Sweetie Tomlinson on 01-19-2022 Cholesterol [Mass/Vol] 259 mg/dL 140-200 [facility] Comment on above: Chol less than 200 m g/dl low risk Chol 201-239 mg/dl borderline risk Chol 240 mg/dl and greater high risk Cholesterol in LDL Calc [Mas s/Vol]Ordered By: Sweetie Tomlinson on 01-19-2022 Cholesterol in LDL [Mass/Vol] 142 mg/dL 0-100 [facility] Comment on above: LDL ATP III CLASSIFI CATION LDL less than 100 mg/dL Optimal LDL 100-129 mg/dL Near or above optimal LDL 130-159 mg/dL Borderline high LDL 160-189 mg/dL High LDL greater than 189 mg/dL Very high Cholesterol in VLDL Calc [Ma ss/Vol]Ordered By: Sweetie Tomlinson on 01-19-2022 Cholesterol in VLDL [Mass/Vol] 12 mg/dL [facility] Creatinine and Glomerular fi ltration rate.predicted panel (S/P/Bld)Ordered By: Sweetie Tomlinson on 01-19-2022 Creatinine [Mass/Vol] 2.03 mg/dL 0.64-1.27 [facility] Estimated glomerular filtrat ion rate (GFR) non- AmericanOrdered By: Sweetie Tomlinson on 01-19-2022 GFR/1.73 sq M.predicted among non-blacks MDRD (S/P/Bld) [Vol rate/Area] 32 mL/Min [facility] - Chemistry and C hemistry - challengeOrdered By: Sweetie Tomlinson on 01-19-2022 Natriuretic peptide B (Bld) [Mass/Vol] 749.0 pg/mL 5-100 [facility] Lipid Panelon 01-19-2022 Cholesterol [Mass/Vol] 259 mg/dL High 140-200 [facility] Comment on above: Order Comment: 1- [phone] Result Comment: Chol less than 200 mg/dl low risk Chol 201-239 mg/dl borderline risk Chol 240 mg/dl and greater high risk Performed By: #### B MP, LIPID, TSH3, BNP #### [facility] [address] Cholesterol in HDL [Mass/Vol] 105 mg/dL High 29-71 [facility] Comment on above: Order Comment: 82 Result Comment: HDL CHOL ATP-III CLASSIFICATION Cardiovascular Risk HDL > or equal to 60 mg/dL LOW HDL < 40 mg/dL HIGH Performed By: #### B MP, LIPID, TSH3, BNP #### [facility] [address] Cholesterol.total/Cho lesterol in HDL [Mass ratio] 2.5 {ratio} Normal <5.0 [facility] Comment on above: Order Comment: Performed By: #### B MP, LIPID, TSH3, BNP #### [facility] [address] LDL Cholesterol,Calculate d 142 mg/dL High 0-100 [facility] Comment on above: Order Comment: 82 Result Comment: LDL ATP III CLASSIFICATION LDL less than 100 mg/dL Optimal LDL 100-129 mg/dL Near or above optimal LDL 130-159 mg/dL Borderline high LDL 160-189 mg/dL High LDL greater than 189 mg/dL Very high Performed By: #### B MP, LIPID, TSH3, BNP #### [facility] [address] Triglyceride w/Reflex 60 mg/dL Normal 35-149 [facility] Comment on above: Order Comment: [phone] Result Comment: TRIG ATP III CLASSIFICATION TRIG less than 150 mg/dL Normal TRIG 150-199 mg/dL Borderline high TRIG 200-500 mg/dL High TRIG greater than 500 mg/dL Very high Standard traceable to the Center for Disease Conrtrol and Prevention (CDC) test method. Performed By: #### B MP, LIPID, TSH3, BNP #### [facility] [address] VLDL CHOLESTEROL 12 mg/dL Normal [facility] Comment on above: Order Comment: 82 Performed By: #### B MP, LIPID, TSH3, BNP #### [facility] [address] [place] [id number] [facility] No Panel InformationOrdered By: Sweetie Tomlinson on 01-19-2022 Estimated GFR () 38 mL/Min [facility] Comment on above: GFR estimated refere nce range: According to KDOQI guidelines, <60 ml/min/1.73m2 is sufficient to diagnose a patient with chronic kidney disease. Pharmacy Creatinine Clearance (Chem N/A [facility] Serum or plasma calcium shelbi urement (mass/volume)Ordered By: Sweetie Tomlinson on 01-19-2022 Calcium [Mass/Vol] 8.5 mg/dL 8.2-10.2 [facility] Serum or plasma chloride alex surement (moles/volume)Ordered By: Sweetie Tomlinson on 01-19-2022 Chloride [Moles/Vol] 103 mmol/L 95-114 [facility] Serum or plasma glucose shelbi urement (mass/volume)Ordered By: Sweetie Tomlinson on 01-19-2022 Glucose [Mass/Vol] 99 mg/dL 70-100 [facility] Comment on above: ADA recommended refe rence range Random Glucose Reference Range is dependent on time and content of last meal. Glucose of more than 200 mg/dL in a nonstressed, ambulatory subject supports the diagnosis of Diabetes Mellitus. Serum or plasma high density lipoprotein (HDL) cholesterol measurementOrdered By: Sweetie Tomlinson on 01-19-2022 Cholesterol in HDL [Mass/Vol] 105 mg/dL 29-71 [facility] Comment on above: HDL CHOL ATP-III CLA SSIFICATION Cardiovascular Risk HDL > or equal to 60 mg/dL LOW HDL < 40 mg/dL HIGH Serum or plasma potassium me asurement (moles/volume)Ordered By: Sweetie Tomlinson on 01-19-2022 Potassium [Moles/Vol] 4.9 mmol/L 3.5-5.1 [facility] Serum or plasma sodium measu rement (moles/volume)Ordered By: Sweetie Tomlinson on 01-19-2022 Sodium [Moles/Vol] 142 mmol/L 136-146 [facility] Serum or plasma total carbon dioxide measurement (moles/volume)Ordered By: Sweetie Tomlinson on 01-19-2022 CO2 [Moles/Vol] 31.5 mmol/L 22.0-30.0 [facility] Serum or plasma total choles terol/high density lipoprotein (HDL) cholesterol mass ratOrdered By: Sweetie Tomlinson on 01-19-2022 Cholesterol.total/Cho lesterol in HDL [Mass ratio] 2.5 {ratio} <5.0 [facility] Serum or plasma urea nitroge n measurement (mass/volume)Ordered By: Sweetie Tomlinson on 01-19-2022 Urea nitrogen [Mass/Vol] 50 mg/dL 03-11 [facility] TSH DL <= 0.005 mIU/L QnOrde red By: Sweetie Tomlinson on 01-19-2022 TSH Qn 11.52 m[IU]/L 0.45-5.33 [facility] Thyroid Stimulating Hormoneo n 01-19-2022 TSH Qn 11.52 m[IU]/L High 0.45-5.33 [facility] Comment on above: Order Comment: 1- [phone] Result Comment: PERF ORMED BY: [place] [address] PATHOLOGIST PERFUMER SERVANDO AKERS M.D. Performed By: #### B MP, LIPID, TSH3, BNP #### [address] Triglyceride [Mass/volume] i n Serum or PlasmaOrdered By: Sweetie Tomlinson on 01-19-2022 Triglyceride [Mass/Vol] 60 mg/dL 35-149 [facility] Comment on above: TRIG ATP III CLASSIF ICATION TRIG less than 150 mg/dL Normal TRIG 150-199 mg/dL Borderline high TRIG 200-500 mg/dL High TRIG greater than 500 mg/dL Very high Standard traceable to the Center for Disease Conrtrol and Prevention (CDC) test method. BNPon 12-21-2021 Natriuretic peptide B (Bld) [Mass/Vol] 2048.0 pg/mL Critically high <=1,800.0 [facility] Comment on above: Performed By: #### B MP, BNP #### [facility] [address] [address] [address] Aaron Ling PROF CHEM 8 (BAS METB)on Anion gap [Moles/Vol] 11.1 mmol/L Normal [facility] Comment on above: Performed By: #### B MP, BNP #### [facility] [address] [address] [address] Aaron Ling Calcium [Mass/Vol] 8.7 mg/dL Normal 8.5-10.1 [facility] Comment on above: Performed By: #### B MP, BNP #### [facility] [address] [address] [address] Aaron Ling Chloride [Moles/Vol] 106 mmol/L Normal 98-107 [facility] Comment on above: Performed By: #### B MP, BNP #### [facility] [address] [place] [address] Dr. Aaron Ling CO2 [Moles/Vol] 30.9 mmol/L Normal 21.0-32.0 [facility] Comment on above: Performed By: #### B MP, BNP #### [facility] [address] [address] [address] Aaron Ling Creatinine [Mass/Vol] 2.07 mg/dL Critically high 0.70-1.30 [facility] Comment on above: Performed By: #### B MP, BNP #### [facility] [address] [address] [address] Aaron Ling EGFR-AF WALLISIAN 38 mL/min/1.73m2 Critically low >=60 [facility] Comment on above: Performed By: #### B MP, BNP #### [facility] [address] [address] [address] Aaron Ling EGFR-NON AF WALLISIAN 31 mL/min/1.73m2 Critically low >=60 [facility] Comment on above: Performed By: #### B MP, BNP #### [facility] [address] [address] [address] Aaron Ling Glucose [Mass/Vol] 138 mg/dL Critically high 74-106 [facility] Comment on above: Performed By: #### B MP, BNP #### [facility] [address] [address] [address] Aaron Ling Potassium [Moles/Vol] 5.0 mmol/L Normal 3.5-5.1 [facility] Comment on above: Performed By: #### B MP, BNP #### [facility] [address] [address] [address] Aaron Ling Sodium [Moles/Vol] 143 mmol/L Normal 136-145 [facility] Comment on above: Performed By: #### B MP, BNP #### [facility] [address] [address] [address] Aaron Ling Urea nitrogen [Mass/Vol] 43.0 mg/dL Critically high 7.0-18.0 [facility] Comment on above: Performed By: #### B MP, BNP #### [facility] [address] [address] [address] Aaron Ling Urea nitrogen/Creatinine [Mass ratio] 20.8 mg/mg Normal [facility] Comment on above: Performed By: #### B MP, BNP #### [facility] [address] [address] [address] Aaron Ling XR shoulder RT min 2V*on XR shoulder RT min 2V* [facility] [place] [address] [place] [address] XRay Report Signed Patient: Richard Boykin MR#: [id number] : 1940 Acct:[id number] Age/Sex: 81 / M ADM Date: 12/02/21 [place] [facility] [place]: Type: [facility] Attending Dr: Teofilo Person MD Copies to: [...] Rosado Jr., M.D.12/02/2021 1:52 PM Dictation Location: [place] [address] Transcribed By: [facility] 12/02/21 1352 Dictated By: Cyrus Rosado Jr, MD 12/02/21 1351 Signed By: 12/02/21 1352 [facility] BASIC METABOLIC PANEL 10-17 Calcium [Mass/Vol] 8.7 mg/dL Normal 8.6-10.3 [place] Comment on above: Order Comment: No: D o not add to previous draw Performed By: #### 5 4808, 82617 #### [facility] [address] [place] [address], [place] Chloride [Moles/Vol] 98 mmol/L Normal 98-107 [facility] Comment on above: Order Comment: No: D o not add to previous draw Performed By: #### 5 3508, 56668 #### [facility] [address] [place] [address], [place] CO2 [Moles/Vol] 29 mmol/L Normal 21-31 [facility] Comment on above: Order Comment: No: D o not add to previous draw Performed By: #### 5 0618, 07764 #### [facility] [address] [place] [address], [place] Creatinine [Mass/Vol] 1.00 mg/dL Normal 0.70-1.30 [facility] Comment on above: Order Comment: No: D o not add to previous draw Performed By: #### 5 0608, 22020 #### [facility] [address] [place] [address], [place] GFR/1.73 sq M.predicted among blacks MDRD (S/P/Bld) [Vol rate/Area] mL/min/{1.73_m2} Normal >60 [facility] Comment on above: Order Comment: No: D o not add to previous draw Result Comment: Calc ulation may not be valid for patients over 70 years Performed By: #### 5 0608, 74397 #### [facility] [address] [place] [address], [place] GFR/1.73 sq M.predicted among non-blacks MDRD (S/P/Bld) [Vol rate/Area] mL/min/{1.73_m2} Normal >60 [facility] Comment on above: Order Comment: No: D o not add to previous draw Result Comment: Calc ulation may not be valid for patients over 70 years Performed By: #### 5 0608, 90397 #### [facility] [address] [place] [address], [place] Glucose [Mass/Vol] 288 mg/dL High 70-100 [facility] Comment [facility] above: Order Comment: No: D o not add to previous draw Performed By: #### 5 0608, 43576 #### [facility] [address] [place] [address], [place] Potassium [Moles/Vol] 4.7 mmol/L Normal 3.5-5.1 [facility] Comment on above: Order Comment: No: D o not add to previous draw Performed By: #### 5 0608, 02718 #### [facility] [address] [place] [address], [place] Sodium [Moles/Vol] 135 mmol/L Low 136-145 [facility] Comment on above: Order Comment: No: D o not add to previous draw Performed By: #### 5 0608, 21153 #### [facility] [address] [place] [address], [place] Urea nitrogen [Mass/Vol] 28 mg/dL High 7-25 [facility] Comment on above: Order Comment: No: D o not add to previous draw Performed By: #### 5 607, 18417 #### [facility] [address] CBC COMPLETE BLOOD COUNTon 0 - Erythrocyte distribution width (RBC) [Ratio] 14.3 % Normal 11.5-15.0 [facility] Comment on above: Order Comment: No: D o not add to previous draw Performed By: #### 5 607, 65380 #### [facility] [address] Hematocrit (Bld) [Volume fraction] 42.0 % Normal 39.0-50.0 [facility] Comment on above: Order Comment: No: D o not add to previous draw Performed By: #### 607, 18208 #### [facility] [address] Hemoglobin (Bld) [Mass/Vol] 13.7 g/dL Normal 13.0-17.0 [facility] Comment on above: Order Comment: No: D o not add to previous draw Performed By: #### 5 607, 15571 #### [facility] [address] [place] [address], [facility] MCH (RBC) [Entitic mass] 31.5 pg Normal 27.0-33.0 [facility] Comment on above: Order Comment: No: D o not add to previous draw Performed By: #### 5 607, 32230 #### [facility] [address] [place] [address], [facility] MCHC (RBC) [Mass/Vol] 32.6 g/dL Normal 32.0-35.0 [facility] Comment on above: Order Comment: No: D o not add to previous draw Performed By: #### 607, 35666 #### [facility] [address] [place] [address], [facility] MCV (RBC) [Entitic vol] 96.6 fL Normal 82.0-98.0 [facility] Comment on above: Order Comment: No: D o not add to previous draw Performed By: #### 5 0608, 93848 #### [facility] [address] [place] [id number], [facility] Nucleated RBC/100 WBC (Bld) [Ratio] 0 % Normal 0-0 [facility] Comment on above: Order Comment: No: D o not add to previous draw Performed By: #### 5 607, 55723 #### [facility] [address] [facility] [place] [address], [facility] PLAT CNT 298 10*3/uL Normal 150-400 [facility] Comment on above: Order Comment: No: D o not add to previous draw Performed By: #### 5 607, 56646 #### [facility] [address] [facility] [place] [address], [facility] RBC (Bld) [#/Vol] 4.35 10*6/uL Normal 4.20-5.70 [facility] Comment on above: Order Comment: No: D o not add to previous draw Performed By: #### 5 607, 62038 #### [facility] [address] [place] [id number], [facility] WBC (Bld) [#/Vol] 10.30 10*3/uL Normal 4.00-10.60 [facility] Comment on above: Order Comment: No: D o not add to previous draw Performed By: #### 5 06, 37907 #### [facility] [address] [facility] [place] [id number], [facility] MAGNESIUM BLOODon 11-02-2021 Magnesium [Mass/Vol] 2.0 mg/dL Normal 1.9-2.7 [facility] Comment on above: Order Comment: No: D o not add to previous draw Performed By: #### 5 06, 83147 #### [facility] [address] [facility] [place] [address], [facility] POC GLUCOSE LABon 11-02-2021 Glucose [Mass/Vol] 296 mg/dL High 70-100 [facility] Comment on above: Performed By: #### 5 7307, 20656 #### [facility] [address] [facility] [place] [address], [facility] Glucose [Mass/Vol] 262 mg/dL High 70-100 [facility] Comment on above: Performed By: #### 5 7307, 28653 #### [facility] [address] [facility] [place] [address], [facility] PORTABLE CHEST 1 VIEWon 10-17 PORTABLE CHEST 1 VIEW [facility] Department of Radiology [address] [place] [id number] Patient Name: RICHARD BOYKIN : 1940 Sex: M Age: Race: NA Pt. Location: [id number] Patient Status: I Ordered Date: 11/02/2021 12:05:00 [...] effusions. Electronically signed: Guilherme Abarca. Transcribed by: [email or web address], User Resident: Electronically Signed by: GUILHERME ABARCA @ 11/02/2021 12:49 PM Normal [facility] Comment on above: Order Comment: Check Line Position, right arm picc *ANAEROBIC CULTUREon 022 *ANAEROBIC CULTURE Clinical Report: (D) Specimen: FLUID Collected: 11/01/2021 15:30 Status: Final Last Updated: 11/06/2021 07:46 (1) RT SC JOINT CULT RES (Final) No Anaerobes Isolated 5 Days Normal [facility] Comment on above: Order Comment: Check Line Position, right arm picc Performed By: #### 3 0312 ####[facility] [facility] *ANAEROBIC CULTURE Clinical Report: (D) Specimen: TISSUE Collected: 11/01/2021 15:10 Status: Final Last Updated: 11/06/2021 07:46 (1) RT SC JOINT CULT RES (Final) No Anaerobes Isolated 5 Days Normal [facility] Comment on above: Order Comment: Check Line Position, right arm picc Performed By: #### 3 0312 ####[facility] [place] [address], [facility] *BODY FLUID CULTUREon 2021 *BODY FLUID CULTURE Clinical Report: (D) Specimen: FLUID Collected: 11/01/2021 15:30 Status: Final Last Updated: 11/06/2021 06:31 (1) RT SC JOINT GRAM (Final) Quantity Not Sufficient CULT RES (Final) No Growth Day 5 Normal [facility] Comment on above: Order Comment: RT SC JOINT Performed By: #### 5 0608, 09994 #### [facility] [address] [place], [place] [id number] [place] [address] *FUNGAL CULTUREon 11-01-2021 *FUNGAL CULTURE Clinical Report: (D) Specimen: TISSUE Collected: 11/01/2021 15:10 Status: Final Last Updated: 12/03/2021 07:55 (1) RT SC JOINT FS (Final) No Yeast or Fungal Elements Seen CULT RES (Final) Culture negative for fungus Normal [facility] Comment on above: Order Comment: Check Line Position, right arm picc Performed By: #### 3 0323 ####[facility] [place], [place] [id number] [place] [address] *TISSUE CULTUREon 11-01-2021 *TISSUE CULTURE Clinical Report: (D) Specimen: TISSUE Collected: 11/01/2021 15:10 Status: Final Last Updated: 11/06/2021 06:37 (1) RT SC JOINT GRAM (Final) Moderate Polys No Bacteria Seen CULT RES (Final) No Growth Day 5 Normal [facility] Comment on above: Order Comment: Check Line Position, right arm picc Performed By: #### 3 0338 ####[facility] [place], [place] [id number] [place] [address] CT BIOPSY ARM/WRIST SOFT TIS KIMBERLEY RIGHTon 11-01-2021 CT BIOPSY ARM/WRIST SOFT TISSUE RIGHT [facility] Department of Radiology [address] [place] [address] Patient Name: RICHARD BOYKIN : 1940 Sex: M Age: Race: NA Pt. Location: [address] [place] [address] Patient Status: D Ordered Date: 11/01/2021 8:00:00 [...] risks are acceptable. Consent was obtained. Timeout: Abell protocol timeout verification performed. MEDICATIONS: 1 mg [...] report. Electronically signed: Tara Hall. 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 Will order aspiraton of the proximal RIGHT sternoclavicular joint seperately POC GLUCOSE LABon 11-01-2021 Glucose [Mass/Vol] 326 mg/dL High 70-100 [facility] Comment on above: Performed By: #### 5 7307, 98803 #### [facility] [address] [place] [address], [facility] Glucose [Mass/Vol] 245 mg/dL High 70-100 [facility] Comment on above: Performed By: #### 5 7307, 92384 #### [facility] [address] [place] [address], [facility] Glucose [Mass/Vol] 299 mg/dL High 70-100 [facility] Comment on above: Performed By: #### 5 7307, 87356 #### [facility] [address] [place] [address], [facility] Glucose [Mass/Vol] 227 mg/dL High 70-100 [facility] Comment on above: Performed By: #### 5 7307, 64109 #### [facility] [address] POC SARS COV2 IDon 2 SARS-CoV-2 (COVID-19) RNA KIKO+probe Ql (Unsp spec) Negative Normal NEGATIVE [facility] Comment on above: Result Comment: ID [...] of Accreditation. Performed By: #### 5 0608, 25268 #### [facility] [address] [place] [id number], [facility] POC GLUCOSE LABon 10-31-2021 Glucose [Mass/Vol] 236 mg/dL High 70-100 [facility] Comment on above: Performed By: #### 5 7307, 08029 #### [facility] [address] [place] [address], [facility] Glucose [Mass/Vol] 274 mg/dL High 70-100 [facility] Comment on above: Performed By: #### 5 7307, 99771 #### [facility] [address] [facility] [place] [address], [facility] Glucose [Mass/Vol] 317 mg/dL High 70-100 [facility] Comment on above: Performed By: #### 5 7307, 63443 #### [facility] [address] [place] [address], [facility] Glucose [Mass/Vol] 225 mg/dL High 70-100 [facility] Comment on above: Performed By: #### 5 7307, 68548 #### [facility] [address] *BLOOD CULTUREon 10-30-2021 *BLOOD CULTURE Clinical Report: (D) Specimen: BLOOD CULTURE Collected: 10/29/2021 23:08 Status: Final Last Updated: 11/04/2021 08:31 CULT RES (Final) No Growth Day 5 Normal [facility] Comment on above: Performed By: #### 5 7307, 89559 #### [facility] [address] APTTon 10-30-2021 aPTT Coag (Bld) [Time] 51.2 s High 25.0-35.0 [facility] Comment on above: Order Comment: No: [...] THIS PURPOSE. Performed By: #### 5 0608, 64962 #### [facility] [address] [place] [address], [facility] BASIC METABOLIC PANELon 05- Calcium [Mass/Vol] 8.9 mg/dL Normal 8.6-10.3 [place] Comment on above: Order Comment: No: D o not add to previous drawMissed Performed By: #### 5 06, 09685 #### [facility] [address] [place] [address], [facility] Chloride [Moles/Vol] 99 mmol/L Normal 98-107 [facility] Comment on above: Order Comment: No: D o not add to previous drawMissed Performed By: #### 5 607, 63690 #### [facility] [address] [place] [id number], [facility] CO2 [Moles/Vol] 27 mmol/L Normal 21-31 [facility] Comment on above: Order Comment: No: D o not add to previous drawMissed Performed By: #### 5 06, 74274 #### [facility] [address] [place] [id number], [facility] Creatinine [Mass/Vol] 1.08 mg/dL Normal 0.70-1.30 [facility] Comment on above: Order Comment: No: D o not add to previous drawMissed Performed By: #### 5 06, 76989 #### [facility] [address] [place] [address], [facility] GFR/1.73 sq M.predicted among blacks MDRD (S/P/Bld) [Vol rate/Area] mL/min/{1.73_m2} Normal >60 [facility] Comment on above: Order Comment: No: D o not add to previous drawMissed Result Comment: Calc ulation may not be valid for patients over 70 years Performed By: #### 5 0608, 61674 #### [facility] [address] [place] [address], [place] GFR/1.73 sq M.predicted among non-blacks MDRD (S/P/Bld) [Vol rate/Area] mL/min/{1.73_m2} Normal >60 [facility] Comment on above: Order Comment: No: D o not add to previous drawMissed Result Comment: Calc ulation may not be valid for patients over 70 years Performed By: #### 5 0608, 64408 #### [facility] [address] [place] [address], [place] Glucose [Mass/Vol] 257 mg/dL High 70-100 [facility] Comment on above: Order Comment: No: D o not add to previous drawMissed Performed By: #### 5 06, 31109 #### [facility] [facility] [address] [place] [address], [place] Potassium [Moles/Vol] 4.5 mmol/L Normal 3.5-5.1 [facility] Comment on above: Order Comment: No: D o not add to previous drawMissed Performed By: #### 5 0608, 48941 #### [facility] [address] [place] [address], [place] Sodium [Moles/Vol] 135 mmol/L Low 136-145 [facility] Comment on above: Order Comment: No: D o not add to previous drawMissed Performed By: #### 5 06, 20497 #### [facility] [address] [place] [address], [place] Urea nitrogen [Mass/Vol] 27 mg/dL High 7-25 [facility] Comment on above: Order Comment: No: D o not add to previous drawMissed Performed By: #### 5 0608, 38650 #### [facility] [address] [place] [address], [place] C REACTIVE PROTEINon 05-14-2 022 CRP [Mass/Vol] 278.0 mg/L High 0.0-7.[address] [facility] Comment on above: Order Comment: No: D o not add to previous draw Performed By: #### 5 7307, 62356 #### [facility] [address] CBC COMPLETE BLOOD COUNTon 0 10-30-2021 Erythrocyte distribution width (RBC) [Ratio] 14.6 % Normal 11.5-15.0 [facility] Comment on above: Order Comment: No: D o not add to previous draw Missed Performed By: #### 5 06, 33061 #### [facility] [address] [place] [address], [facility] Hematocrit (Bld) [Volume fraction] 41.4 % Normal 39.0-50.0 [facility] Comment on above: Order Comment: No: D o not add to previous draw Missed Performed By: #### 5 06, 31235 #### [facility] [address] [place] [address], [facility] Hemoglobin (Bld) [Mass/Vol] 13.9 g/dL Normal 13.0-17.0 [facility] Comment on above: Order Comment: No: D o not add to previous draw Missed Performed By: #### 5 06, 03652 #### [facility] [address] [place] [address], [facility] MCH (RBC) [Entitic mass] 32.0 pg Normal 27.0-33.0 [facility] Comment on above: Order Comment: No: D o not add to previous draw Missed Performed By: #### 5 06, 05752 #### [facility] [address] [place] [address], [facility] MCHC (RBC) [Mass/Vol] 33.6 g/dL Normal 32.0-35.0 [facility] Comment on above: Order Comment: No: D o not add to previous draw Missed Performed By: #### 5 0698, 94287 #### [facility] [address] [place] [id number], [facility] MCV (RBC) [Entitic vol] 95.2 fL Normal 82.0-98.0 [facility] Comment on above: Order Comment: No: D o not add to previous draw Missed Performed By: #### 5 607, 25218 #### [facility] [address] [place] [id number], [facility] Nucleated RBC/100 WBC (Bld) [Ratio] 0 % Normal 0-0 [facility] Comment on above: Order Comment: No: D o not add to previous draw Missed Performed By: #### 5 607, 82673 #### [facility] [address] [place] [address], [facility] PLAT CNT 211 10*3/uL Normal 150-400 The [facility] Comment on above: Order Comment: No: D o not add to previous draw Missed Performed By: #### 5 607, 69974 #### [facility] [address] [facility] [place] [address], [facility] RBC (Bld) [#/Vol] 4.35 10*6/uL Normal 4.20-5.70 The [facility] Comment on above: Order Comment: No: D o not add to previous draw Missed Performed By: #### 5 607, 22184 #### [facility] [address] [place] [address], [facility] WBC (Bld) [#/Vol] 9.94 10*3/uL Normal 4.00-10.60 [facility] Comment on above: Order Comment: No: D o not add to previous draw Missed Performed By: #### 5 06, 79192 #### [facility] [address] [place] [id number], [facility] LACTATE WITH REFLEXon 2021 Lactate [Moles/Vol] 1.5 mmol/L Normal .5-2.2 [facility] Comment on above: Order Comment: No: D o not add to previous draw Performed By: #### 3 1414 #### [facility] [address] [place] [address], [place] MAGNESIUM BLOODon 10-30-2021 Magnesium [Mass/Vol] 2.0 mg/dL Normal 1.9-2.7 [facility] Comment on above: Order Comment: No: D o not add to previous draw Performed By: #### 5 7307, 77229 #### [facility] [address] [place] [address], [place] PHOSPHORUS BLOODon Phosphate [Mass/Vol] 3.0 mg/dL Normal 2.5-5.0 [facility] Comment on above: Order Comment: No: D o not add to previous draw Performed By: #### 5 7307, 11130 #### [facility] [address] [place] [address], [place] POC GLUCOSE LABon 10-30-2021 Glucose [Mass/Vol] 355 mg/dL High 70-100 [facility] Comment on above: Performed By: #### 5 7307, 77402 #### [facility] [address] [place] [address], [place] Glucose [Mass/Vol] 318 mg/dL High 70-100 [facility] Comment on above: Performed By: #### 5 7307, 37494 #### [facility] [address] [place] [address], [place] Glucose [Mass/Vol] 244 mg/dL High 70-100 [facility] Comment on above: Performed By: #### 5 7307, 27412 #### [facility] [address] [place] [address], [place] Glucose [Mass/Vol] 294 mg/dL High 70-100 [facility] Comment on above: Performed By: #### 5 7307, 75320 #### [facility] [address] [place] [address], [facility] PROTHROMBIN TIMEon 2 INR Coag (PPP) [Relative time] 1.09 {INR} Normal 0.91-1.16 [facility] Comment on above: Order Comment: No: [...] CHEST 1995;108:231S-246S. Performed By: #### 5 0608, 47070 #### [facility] [address] [place] [address], [facility] PT Coag (PPP) [Time] 14.1 s Normal 12.3-14.8 [facility] Comment on above: Order Comment: No: D o not add to previous drawMissed Result Comment: ALL RESULTS MUST BE INTERPRETED WITH RESPECT TO BLOOD DRAWING ARTIFACT OR DILUTION ERROR OF ANTICOAGULANT AT THE TIME OF SAMPLING. Performed By: #### 5 0608, 21020 #### [facility] [address] [place] [address], [facility] SEDIMENTATION RATEon 022 SED RATE 43 mm/hr High 0-10 [facility] Comment on above: Performed By: #### 5 0608, 75368 #### [facility] [address] [facility] *BLOOD CULTUREon 10-29-2021 *BLOOD CULTURE Clinical Report: (D) Specimen: BLOOD CULTURE Collected: 10/29/2021 21:05 Status: Final Last Updated: 11/04/2021 08:31 (1) LH 2051 CULT RES (Final) No Growth Day 5 Normal [facility] Comment on above: Order Comment: No: D o not add to previous draw Performed By: #### 5 7307, 58057 #### [facility] [address] *BLOOD CULTURE Clinical Report: (D) Specimen: BLOOD CULTURE Collected: 10/29/2021 21:05 Status: Final Last Updated: 11/04/2021 08:31 (1) RH 2100 CULT RES (Final) No Growth Day 5 Normal [facility] Comment on above: Order Comment: Check Line Position, right arm picc Performed By: #### 3 0313 ####[facility] [address] APTTon 10-29-2021 aPTT Coag (Bld) [Time] 47.5 s High 25.0-35.0 [facility] Comment on above: Order Comment: No: [...] THIS PURPOSE. Performed By: #### 5 7307, 63652 #### [facility] [address] BASIC METABOLIC PANELon 10-17 Calcium [Mass/Vol] 8.7 mg/dL Normal 8.6-10.3 [place] Comment on above: Order Comment: No: D o not add to previous draw Performed By: #### 1 0070, 89334, 10895, 72063 #### [facility] [address] [place] [address], [place] Chloride [Moles/Vol] 100 mmol/L Normal 98-107 [facility] Comment on above: Order Comment: No: D o not add to previous draw Performed By: #### 1 0070, 61411, 67955, 57766 #### [facility] [address] [place] [address], [place] CO2 [Moles/Vol] 25 mmol/L Normal 21-31 [facility] Comment on above: Order Comment: No: D o not add to previous draw Performed By: #### 1 0070, 11049, 44444, 10866 #### [facility] [address] [place] [address], [place] Creatinine [Mass/Vol] 1.14 mg/dL Normal 0.70-1.30 [facility] Comment on above: Order Comment: No: D o not add to previous draw Performed By: #### 1 0070, 94457, 94979, 95641 #### [facility] [address] [place] [address], [place] GFR/1.73 sq M.predicted among blacks MDRD (S/P/Bld) [Vol rate/Area] mL/min/{1.73_m2} Normal >60 [facility] Comment on above: Order Comment: No: D o not add to previous draw Result Comment: Calc ulation may not be valid for patients over 70 years Performed By: #### 1 0070, 12557, 43425, 43445 #### [facility] [address] [place] [address], [place] GFR/1.73 sq M.predicted among non-blacks MDRD (S/P/Bld) [Vol rate/Area] mL/min/{1.73_m2} Normal >60 [facility] Comment on above: Order Comment: No: D o not add to previous draw Result Comment: Calc ulation may not be valid for patients over 70 years Performed By: #### 1 0070, 50969, 32195, 05333 #### [facility] [address] [place] [address], [place] Glucose [Mass/Vol] 261 mg/dL High 70-100 [facility] Comment on above: Order Comment: No: D o not add to previous draw Performed By: #### 1 0070, 24075, 07578, 44575 #### [facility] [address] [place] [address], [place] Potassium [Moles/Vol] 4.4 mmol/L Normal 3.5-5.1 [facility] Comment on above: Order Comment: No: D o not add to previous draw Performed By: #### 1 0070, 46691, 81875, 88994 #### [facility] [address] [place] [address], [place] Sodium [Moles/Vol] 134 mmol/L Low 136-145 [facility] Comment on above: Order Comment: No: D o not add to previous draw Performed By: #### 1 0070, 94240, 52689, 02136 #### [facility] [address] [place] [address], [place] Urea nitrogen [Mass/Vol] 30 mg/dL High 7-25 [facility] Comment on above: Order Comment: No: D o not add to previous draw Performed By: #### 1 0070, 97087, 66175, 93230 #### [facility] [address] [place] [address], [place] LIVER BATTERYon 10-29-2021 Albumin [Mass/Vol] 3.0 g/dL Low 3.5-5.7 [facility] Comment on above: Order Comment: No: D o not add to previous draw Missed twice. Rhiannon Riojas notified. Performed By: #### 1 0070, 96319, 98789, 80338 #### [facility] [address] [place] [address], [facility] ALKALINE PHOSPH 159 IU/L High 34-104 [facility] Comment on above: Order Comment: No: D o not add to previous draw Missed twice. Rhiannon Riojas notified. Performed By: #### 1 0, 60236, 22023, 23610 #### [facility] [address] [place] [address], [facility] ALT [Catalytic activity/Vol] 25 U/L Normal 7-52 [facility] Comment on above: Order Comment: No: D o not add to previous draw Missed twice. Rhiannon Riojas notified. Performed By: #### 1 0, 08823, 04879, 31695 #### [facility] [address] [facility] [address] AST [Catalytic activity/Vol] 40 U/L High 13-39 [facility] Comment on above: Order Comment: No: D o not add to previous draw Missed twice. Rhiannon Riojas notified. Performed By: #### 1 0, 63221, 91071, 15383 #### [facility] [address] [place] [address], [facility] Bilirubin [Mass/Vol] 0.8 mg/dL Normal 0.3-1.0 [facility] Comment on above: Order Comment: No: D o not add to previous draw Missed twice. Rhiannon Riojas notified. Performed By: #### 1 0070, 71465, 72688, 79457 #### [facility] [address] [facility] [place] [id number], [facility] Bilirubin.direct [Mass/Vol] 0.1 mg/dL Normal 0.0-0.2 [facility] Comment on above: Order Comment: No: D o not add to previous draw Missed twice. Rhiannon Riojas notified. Performed By: #### 1 0070, 56963, 70922, 54178 #### [facility] [address] [place] [address], [facility] Protein [Mass/Vol] 6.7 g/dL Normal 6.0-8.3 [facility] Comment on above: Order Comment: No: D o not add to previous draw Missed twice. Rhiannon Riojas notified. Performed By: #### 1 0070, 99416, 22329, 66822 #### [facility] [address] [place] [address], [facility] MAGNESIUM BLOODon 10-29-2021 Magnesium [Mass/Vol] 2.1 mg/dL Normal 1.9-2.7 [facility] Comment on above: Order Comment: No: D o not add to previous draw Performed By: #### 1 0070, 88074, 35362, 90887 #### [facility] [address] [place] [address], [facility] PHOSPHORUS BLOODon 2 Phosphate [Mass/Vol] 2.7 mg/dL Normal 2.5-5.0 [facility] Comment on above: Order Comment: No: D o not add to previous draw Performed By: #### 1 0070, 79480, 82325, 36130 #### [facility] [address] [place] [address], [facility] POC GLUCOSE LABon 10-29-2021 Glucose [Mass/Vol] 262 mg/dL High 70-100 [facility] Comment on above: Performed By: #### 5 7307, 56905 #### [facility] [address] [place] [address], [facility] PROTHROMBIN TIMEon 2 INR Coag (PPP) [Relative time] 1.05 {INR} Normal 0.91-1.16 [facility] Comment on above: Order Comment: No: [...] CHEST 1995;108:231S-246S. Performed By: #### 5 7307, 81435 #### [facility] [address] PT Coag (PPP) [Time] 13.7 s Normal 12.3-14.8 [facility] Comment on above: Order Comment: No: D o not add to previous draw Result Comment: ALL RESULTS MUST BE INTERPRETED WITH RESPECT TO BLOOD DRAWING ARTIFACT OR DILUTION ERROR OF ANTICOAGULANT AT THE TIME OF SAMPLING. Performed By: #### 5 7307, 11576 #### [facility] [address] XR knee RT 2Von 03-11-2021 XR knee RT 2V [facility] [place] [address] XRay Report Signed Patient: Richard Boykin MR#: [id number] : 1940 Acct:[id number] Age/Sex: 80 / M ADM Date: 03/11/21 [place] [facility]: Type: [facility] Attending Dr: Godfrey Gomez MD Ordering Provider: [...] Jama Callejas M.D.03/11/2021 1:29 PM Dictation Location: [place] [address] Transcribed By: [facility] 03/11/21 132 Dictated By: Jama Callejas II, MD 03/11/21 1328 Signed By: 03/11/21 1329 [facility] XR knee RT 2V [facility] [employer] Other XR knee RT 2V [facility] [place] [facility] [employer] Other XR knee RT 2V [address] [place] [address] [employer] Other XR knee RT 2V [address] [employer] Other XR knee RT 2V XRay Report [facility] [employer] Other XR knee RT 2V Signed [employer] [facility] Other XR knee RT 2V Patient: Richard Boykin MR#: [id number] [place] [employer] Other XR knee RT 2V : 1940 Acct:[id number] [facility] Other XR knee RT 2V Age/Sex: 80 / M ADM Date: 03/11/21 [facility] Other XR knee RT 2V Loc: [facility] Room: Type: [facility] Other XR knee RT 2V Attending Dr: Godfrey Gomez MD [facility] [employer] Other XR knee RT 2V Ordering Provider: Godfrey Gomez MD [facility] Other XR knee RT 2V Date of Service: 03/11/21 [facility] Other XR knee RT 2V XR/XR knee RT 2V: Arthritis of right knee [facility] Other XR knee RT 2V Copies to: Godfrey Gomez MD [facility] Other XR knee RT 2V XR knee RT 2V 03/11/2021 7:52 AM [facility] Other XR knee RT 2V SIGNS AND SYMPTOMS: Status post total right knee arthroplasty placement, follow-up [facility] Other XR knee RT 2V PROTOCOL: Frontal and lateral graphs of the right knee [employer] [facility] Other XR knee RT 2V COMPARISON: 10/08/2020 [facility] Other XR knee RT 2V FINDINGS: [employer] Other XR knee RT 2V There is total right knee arthroplasty hardware without hardware complication or malalignment. [employer] [facility] Other XR knee RT 2V There is no significant soft tissue swelling. No evidence of fracture. Vascular calcifications are [employer] [facility] Other XR knee RT 2V present posteriorly. N [employer] Other XR knee RT 2V XR/XR knee RT 2V [facility] Other XR knee RT 2V IMPRESSION: [employer] Other XR knee RT 2V Unchanged total right knee arthroplasty hardware. No fracture or hardware complication. [facility] Other XR knee RT 2V Impression dictated by: Jama Callejas M.D.03/11/2021 1:29 PM [facility] Other XR knee RT 2V Dictation Location: [address] [employer]ighter Other XR knee RT 2V Transcribed By: P[facility] 03/11/21 [facility] [employer] [facility] Other XR knee RT 2V Dictated By: Jama Callejas II, MD 03/11/21 1328 [employer] [facility] Other XR knee RT 2V Signed By: [facility] Other XR knee RT 2V 03/11/21 132 [email or web address] Other Vital Signs Date Time Vital Sign Value Performing Clinician Facility 10-23-2024 15:46-0400 Body height 180.34 cm [facility] 10-23-2024 15:46-0400 Body mass index (BMI) [Ratio] 32.1 kg/m2 [facility] 10-23-2024 15:46-0400 Body weight 104.38 kg [facility] 10-23-2024 15:46-0400 Diastolic blood pressure 73 mm[Hg] [facility] 10-23-2024 15:46-0400 Heart rate 47 /min [facility] 10-23-2024 15:46-0400 Respiratory rate 16 /min [facility] 10-23-2024 15:46-0400 SaO2% (BldA) [Mass fraction] 99 % [facility] 10-23-2024 15:46-0400 Systolic blood pressure 108 mm[Hg] [facility] 10-10-2024 09:00-0400 Body height 180.3 cm Willian Shaikh MD Work Phone: [facility] 10-10-2024 09:00-0400 Body mass index (BMI) [Ratio] 31.38 kg/m2 Willian Shaikh MD Work Phone: [facility] 10-10-2024 09:00-0400 Body temperature 98.1 [degF] Willian Shaikh MD Work Phone: [facility] 10-10-2024 09:00-0400 Body weight 102.06 kg Willian Shaikh MD Work Phone: [facility] 10-10-2024 09:00-0400 Diastolic blood pressure 68 mm[Hg] Willian Shaikh MD Work Phone: [facility] 10-10-2024 09:00-0400 Heart rate 68 /min Willian Shaikh MD Work Phone: [facility] 10-10-2024 09:00-0400 SaO2% (BldA) [Mass fraction] 97 % Willian Shaikh MD Work Phone: [facility] 10-10-2024 09:00-0400 Systolic blood pressure 124 mm[Hg] Willian Shaikh MD Work Phone: [facility] 12-02-2021 11:15-0400 Body height 177.8 cm Teofilo Person Other [facility] Other Encounters Encounter Date Encounter Type Care Provider Facility Start: 12-04-2024 ambulatory Marj Sorensen Facility: [facility] Start: 10-28-2024 End: 10-28-2024 ambulatory [facility] Start: 10-23-2024 End: 10-23-2024 ambulatory [facility] Work Phone: Start: 10-23-2024 End: 10-23-2024 Patient encounter procedure [facility] Physician [facility] [place] Work Phone: Start: 10-18-2024 End: 10-18-2024 ambulatory Marj Dugan Edu Facility:[facility] Start: 10-10-2024 End: 10-10-2024 Office outpatient new 45 minutes Willian Shaikh MD Work Phone: [facility] Comment on above: 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 ([facility]) (Primary Dx); Iliac artery stenosis, right; Atherosclerosis of aorta Start: 10-08-2024 ambulatory Marj Sorensen Facility: [facility] Start: 08-07-2024 End: 08-07-2024 ambulatory Marj Sorensen Facility:[facility] Start: 08-07-2024 ambulatory Marj Sorensen Facility: [facility] Start: 05-28-2024 ambulatory Marj Sorensen Facility: [facility] Start: 05-21-2024 End: 05-21-2024 ambulatory Marj Sorensen Facility:[facility] Start: 04-18-2024 End: 04-18-2024 ambulatory Marj Sorensen Facility:[facility] Start: 04-18-2024 End: 04-18-2024 ambulatory Marj Sorensen Facility: [facility] Start: 04-04-2024 End: 04-04-2024 ambulatory Marj Sorensen Facility: [facility] Start: 04-04-2024 End: 04-04-2024 ambulatory Marj Sorensne Facility:[facility] Start: 04-01-2024 End: 04-01-2024 ambulatory [address]IE [facility] Start: 02-28-2024 End: 02-28-2024 ambulatory Marj Sorensen Facility: [facility] Start: 02-06-2024 End: 04-16-2024 ambulatory Marj Sorensen Facility:[facility] Start: 01-24-2024 End: 01-24-2024 ambulatory Marj Sorensen Facility: [facility] Start: 12-06-2023 End: 04-16-2024 ambulatory Marj Sorensen Facility:[facility] Start: 02-27-2023 End: 02-27-2023 ambulatory UNKNOWN PROVIDER Facility:[facility] Start: 10-24-2022 End: 10-25-[address] DOCTOR MALCOLM Facility:[facility] Start: 03-26-2022 End: 03-27-[address] DOCTOR MALCOLM Facility:[facility] Start: 01-19-2022 End: 01-19-2022 Patient encounter procedure MD Marj Sorensen Work Phone: [facility] Start: 12-21-2021 End: 12-22-[address] SWEETIE TOMLINSON Facility:[facility] Start: 12-02-2021 End: 12-02-2021 ambulatory Teofilo Person Other [facility] Other Start: 12-02-2021 Office outpatient visit 25 minutes Teofilo Person [facility] Start: 12-02-2021 End: 12-02-2021 Patient encounter procedure MD Marj Sorensen Work Phone: [facility] Start: 10-29-2021 End: 11-02-2021 Evaluation and management of inpatient MARJ SORENSEN Facility:[facility] Start: 10-29-2021 Telephone encounter Aly koo MD Work Phone: [facility] Start: 10-28-2021 End: 10-28-2021 ambulatory Godfrey Gomez Other [facility] Other Start: 10-28-2021 Telephone encounter Godfrey Gomez [facility] Start: 03-11-2021 Office outpatient visit 15 minutes Lydia Anderson [facility] Procedures Date Procedure Procedure Detail Performing Clinician Start: 12-02-2021 Plain X-ray of right shoulder MD Marj Sorensen Work Phone: Plan of Treatment Date Care Activity Detail Author Start: 02-27-2033 DTaP,Tdap and Td Vaccines (2 - Td or Tdap) DTaP,Tdap and Td Vaccines (2 - Td or Tdap) [employer] Start: 10-10-2025 Tobacco Screening Tobacco Screening [employer] Start: 04-11-2025 End: 10-10-2025 US.doppler Aorta and Iliac artery - bilateral Vas aorta/iliac duplex complete Vascular Ultrasound Routine 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 (CMS-HCC) Iliac artery stenosis, right (CMS-HCC) Atherosclerosis of aorta (CMS-HCC) Expected: 04/11/2025 (Approximate), Expires: 10/10/2025 [employer] Work Phone: Comment on above: Expected: 04/11/2025 (Approximate), Expires: 10/10/2025 Start: 02-17-2025 Influenza vaccination Influenza Vacc ine [employer] Start: 10-10-2024 End: 10-10-2025 US.doppler Lower extremity artery - right Vas art duplex lwr single right Vascular Ultrasound Routine 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 (CMS-HCC) Iliac artery stenosis, right (CMS-HCC) Expected: 10/10/2024, Expires: 10/10/2025 [facility] Comment on above: Expected: 10/10/2024 , Expires: 10/10/2025 Start: 02-18-2024 COVID-19 Vaccine ( season) COVID-19 Vaccine ( season) [facility] Start: 10-29-2021 Welcome to Medicare Visit (G0402) Welcome to Medicare Visit (G0402) [facility] Start: 06-29-2011 Administration of varicella zoster vaccine Zoster (Shingles) Vaccine (2 of 3) [facility] Start: 2006 Fall Risk Screening Fall Risk Screen ing [facility] Start: 2006 Pneumococcal vaccination Pneum ococcal Vaccine(s) (65+ yrs) (1 - PCV) [facility] Start: 1991 Shingles (RZV) Vacci ne (1 of 2) Shingles (RZV) Vaccine (1 of 2) [facility] Start: 1959 Tetanus + diphtheria + acellular pertussis vaccine (product) [facility] Start: 1953 Depression Screening Depression Scre ening [facility] Start: 1946 COVID-19 Vaccine (1) COVID-19 Vaccin e (1) [facility] Renal function 2000 panel - Serum or Plasma [facility] Immunizations Immunization Date Immunization Notes Care Provider Fa cility 04-04-2024 influenza virus vaccine, unspecified formulation Willian Shaikh MD Work Phone: [facility] 02-27-2023 tetanus toxoid, redu piotr diphtheria toxoid, and acellular pertussis vaccine, adsorbed Willian Shaikh MD Work Phone: [facility] 05-04-2011 zoster vaccine, unspecified formulation Willian Shaikh MD Work Phone: [facility] Payers Date Payer Category Payer Managed Care Other (unspecified) [facility] [id number] 2021 Unknown AARP AARP xxxxxx [id number] 2021-Present [address] [place] [address] [id number] 1997 Medicare [id number] 1959 Medicare [id number] 1959 Unknown [id number] 1941 Unknown [id number] 2.16.840.1.914760.3.579.2. 647 1941 Unknown [id number] 2.16.840.1.496968.3.579.2. 593 1941 Unknown [id number] 2.16.840.1.318123.3.579.2. 593 1941 Unknown [id number] 2.16.840.1.716122.3.579.2. 593 1941 Unknown [id number] 2.16.840.1.445176.3.579.2. 732 1941 Unknown [id number] 2.16.840.1.939427.3.579.2. 718 1941 Unknown [id number] 2.16.840.1.067876.3.579.2. 8 1941 Unknown [id number] 2.16.840.1.708084.3.579.2. 1941 Unknown [id number] 2.16.840.1.848251.3.579.2. 1941 Unknown [id number] 2.16.840.1.876435.3.579.2. 1941 Unknown [id number] 2.16.840.1.988127.3.579.2. 1941 Unknown [id number] 2.16.840.1.285861.3.579.2. 1941 Unknown [id number] 2.16.840.1.988283.3.579.2. 1941 Unknown [id number] 2.16.840.1.549803.3.579.2. 1941 Unknown [id number] 2.16.840.1.184516.3.579.2. 1941 Unknown [id number] 2.16.840.1.114040.3.579.2. 1941 Unknown [id number] 2.16.840.1.885145.3.579.2. 1941 Unknown [id number] 2.16.840.1.052932.3.579.2. 1941 Unknown [id number] 2.16.840.1.559694.3.579.2. 1941 Unknown [id number] 2.16.840.1.205555.3.579.2. 1941 Unknown [id number] 2.16.840.1.941503.3.579.2. 718 Self-pay Self Pay [id number] Social History Date Type Detail Facility Tobacco smoking status [facility] Tobacco smoking consumption unknown [facility] Work Phone: Start: 1940 [facility] Start: 10-10-2024 Sex Assigned At N [facility] Other Start: 02-27-2020 End: 10-23-2024 Tobacco smoking status [facility] Never smoked tobacco (finding) [facility] Start: 1940 Sex Assigned At Male [facility] Start: 10-10-2024 Tobacco smoking status [facility] Ex-smoker [facility] End: 06-19-1989 History of tobacco use Current smoker [facility] History of tobacco use Cigarette Smoker [facility] End: 06-19-1989 History of tobacco use [facility]igar [facility] Start: 10-10-2024 Tobacco use and exposure Smokeless tobacco non-user [facility] Start: 10-10-2024 Alcoholic beverage intake [facility]-dr[facility] (finding) [facility] Start: 10-10-2024 History of Social function [facility] Within the past 12 months we worried whether our food would run out before we got money to buy more. Never [facility] [employer] [facility] Start: 11-03-2021 End: 10-23-2024 [facility]finding[facility] Procedure Code Equipment Code Equipment Origin al Text Equipment Identifier Dates Arthroplasty, knee, total, minimally invasive Orthopaedic cement, non-medicated [id number] FDA Start: 02-27-2020 Arthroplasty, knee, total, minimally invasive Uncoated knee femur prosthesis [id number] FDA Start: 02-27-2020 Arthroplasty, knee, total, minimally invasive Tibial insert [id number] FDA Start: 02-27-2020 Arthroplasty, knee, total, minimally invasive Polyethylene patella prosthesis ()[id number] FDA Start: 02-27-2020 Arthroplasty, knee, total, minimally invasive Knee stem ()[id number] FDA Start: 02-27-2020 Arthroplasty, knee, total, minimally invasive Uncoated knee tibia prosthesis, metallic ()[id number] FDA Start: 02-27-2020 Clinical Notes 03-11-2021 to 10-28-2024 Note Date & Type Note Facility 10-28-2024 Note [place] [facility] Subjective Richard Boykin is a 84 y.o. year old male patient being seen for 6 month follow up. Labs done . Patient states he feels pretty good. Patient states he has some fatigue, and dyspnea with exertion through out the day. Patient denies chest, leg swelling, palpitations, or dizziness. 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 Right lower lobe pneumonia Chronic diastolic heart failure (CMS/HCC) Nonrheumatic aortic valve stenosis PAD (peripheral artery disease) Mixed hyperglyceridemia History of arthritis Gout Dyspnea on exertion Chronic renal impairment Back pain Ulcer of toe (CMS/HCC) Paroxysmal atrial fibrillation (CMS/HCC) Type 2 diabetes mellitus (CMS/HCC) Diabetes mellitus (CMS/HCC) Hypertension Peripheral arterial occlusive disease Peripheral vascular disease Osteoarthritis Aortic valve stenosis Hyperlipidemia Leg ulcer, left, with unspecified severity (CMS/HCC) JENARO (acute kidney injury) Allergic rhinitis Cellulitis of toe of right foot Vertigo Fatigue Gastroesophageal reflux disease Heart failure (CMS/HCC) Idiopathic peripheral neuropathy Immunodeficiency disorder Morbid obesity (CMS/HCC) Muscle weakness Psoriasis 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) Stage 3b chronic kidney disease (CMS/HCC) Thrombophilia Tinea pedis Uncontrolled type 2 diabetes mellitus Vitamin D deficiency Wound of skin Type 2 diabetes mellitus with peripheral angiopathy (CMS/HCC) Counseling, unspecified Dietary counseling and surveillance Encounter for general adult medical examination without abnormal findings 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 He is a 81-year-old man with prior history of hypertension, diabetes and hypercholesterolemia all on therapy. He was admitted in October 2021 from October 29 to November 02, 2021 at [facility] with MSSA bacteremia likely related to [...] 3 years ago. He follows with a tai chi instructor. Recent testing: ECG 10/25/2021: Atrial fibrillation, nonspecific [...] walker to ambulate. He continues to see tai chi instructor and has a nurse juan (more content not included)... [facility] 10-23-2024 Evaluation note Diagnosis Onset Date Resolution CKD (chronic kidney disease) stage 3, GFR 30-59 ml/min acute October 23, 2024 3:34pm Hyperlipidemia acute October 23, 025 3:34pm Hypertensive chronic kidney disease with stage 1 through stage 4 chronic ki acute October 232024 3:34pm Secondary hyperparathyroidism acute October 23 3:34pm Type 2 diabetes mellitus with diabetic chronic kidney disease acute October 23, 2024 3:34pm [facility] Work Phone: 1(852) 848-901204-24-2025 Evaluation + Plan note* Assessment & Plan Note - Willian Shaikh MD - 10/10/2024 10:11 AM EDTAssociated Problem(s): 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 Initially he was reluctant to have evaluation and management of his multilevel occlusive disease in the right lower extremity. Eventually he agreed to further workup. We will do Right Lower extremity And iliac arterial duplex ultrasound because he has CKD with elevated creatinine. In the meanwhile continue aspirin 81 mg atorvastatin 80 mg and low-dose Eliquis. 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 Initially he was reluctant to have evaluation and management of his multilevel occlusive disease in the right lower extremity. Eventually he agreed to further workup. We will do Right Lower extremity And iliac arterial duplex ultrasound because he has CKD with elevated creatinine. In the meanwhile continue aspirin 81 mg atorvastatin 80 mg and low-dose Eliquis. [facility] History of Present illness Narrative* Willian Shaikh MD - 10/10/2024 9:00 AM EDT Images from the original note were not included. To: No primary care provider on file. HPI: Richard Boykin is a 84 y.o. male with Nonhealing wound in the right lower extremity and DAVON of 0.4. He was referred to us by his tai chi instructor and wound clinic. This wound has been there for a while. He haserythema and difficulty walking. I discussed with him his arterial occlusive disease in length. Discussed with him further workup and potential management plan.. Review of Systems: Review of Systems Constitutional: Negative. HENT: Negative. Respiratory: Negative. Cardiovascular: Negative. Gastrointestinal: Negative. Endocrine: Negative. Genitourinary: Negative. Musculoskeletal: Negative. Skin: Negative. Neurological: Negative. Hematological: Negative. Medications: Current Outpatient Medications on File Prior to Visit Medication Sig Dispense Refill acetaminophen (TYLENOL EXTRA STRENGTH) 500 mg tablet Take 650 mg by mouth every 8 (eight) hours. allopurinoL (ZYLOPRIM) 300 mg tablet Take 1 tablet (300 mg total) by mouth in the morning. apixaban (ELIQUIS) 2.5 mg tablet Take 1 tablet (2.5 mg total) by mouth in the morning and 1 tablet (2.5 mg total) before bedtime. Indications: treatment to prevent blood clots in chronic atrial fibrillation. aspirin 81 mg chewable tablet Chew 1 tablet (81 mg total) and swallow in the morning. atorvastatin (LIPITOR) 80 mg tablet Take 1 tablet (80 mg total) by mouth in the morning. empagliflozin (JARDIANCE) 25 mg tablet tablet Take 1 tablet (25 mg total) by mouth in the morning. fluticasone propionate (FLONASE) 50 mcg/actuation nasal spray Administer 1 spray into each nostril in the morning. furosemide (LASIX) 40 mg tablet Take 1 tablet (40 mg total) by mouth daily. Morning glimepiride (AMARYL) 4 mg tablet Take 1 tablet (4 mg total) by mouth in the morning and at bedtime. levothyroxine (SYNTHROID, LEVOTHROID) 50 MCG tablet Take 1 tablet (50 mcg total) by mouth once daily at bedtime. loratadine (CLARITIN) 10 mg tablet Take 1 tablet (10 mg total) by mouth daily as needed for allergies. metoprolol tartrate (LOPRESSOR) 25 mg tablet Take 1 tablet (25 mg total) by mouth in the morning and 1 tablet (25 mg total) before bedtime. montelukast (SINGULAIR) 10 mg tablet Take 1 tablet (10 mg total) by mouth in the morning. iamdoupp-oqxp-QN-calcium &mins (THERAGRAN-M) 9 mg iron-400 mcg tablet Take 1 tablet by mouth inthe morning. pantoprazole (PROTONIX) 40 mg EC tablet Take 1 tablet (40 mg total) by mouth in the morning. rOPINIRole (REQUIP) 2 mg tablet Take 1 tablet (2 mg total) by mouth nightly. tamsulosin (FLOMAX) 0.4 mg capsule Take 1 capsule (0.4 mg total) by mouth in the morning. MONSE BRAVO U-300 INSULIN 300 unit/mL (1.5 mL) insulin pen Inject under the skin nightly. traMADol ER (ULTRAM-ER) 300 MG 24 hr tablet Take 50 mg by mouth in the morning and at bedtime. 1-2 by mouth four times a day as needed cefazolin sodium/water (ceFAZolin in sterile water) 1 gram/10 mL syringe Infuse into a venous catheter. (Patient not taking: Reported on 10/10/2024) methylPREDNISolone (MEDROL, PACO,) 4 mg tablet Take 1 tablet (4 mg total) by mouth in the morning and 1 tablet (4 mg total) before bedtime. follow package directions. (Patient not taking: Reported on 10/10/2024) tobramycin (TOBREX) 0.3 % drops 1 drop every 4 (four) hours while awake. (Patient not taking: Reported on 10/10/2024) triamcinolone (KENALOG) 0.1 % cream Apply 1 Application topically in the morning and 1 Application before bedtime. (Patient not taking: Reported on 10/10/2024) No current facility-administered medications on file prior to visit. Past Medical History: No past medical history on file. Past Surgical History: No past surgical history on file. Social and Family History: Social History Socioeconomic History Marital status: Spouse name: Not on file Number of children: Not on file Years of education: Not on file Highest education level: Not on file Occupational History Not on file Tobacco Use Smoking status: Former Types: Cigarettes, Cigars Quit date: 1989 Years since quittin.3 Smokeless tobacco: Never Substance and Sexual Activity Alcohol use: Not Currently Drug use: Not on file Sexual activity: Not on file Other Topics Concern Not on file Social History Narrative Not on file Social Drivers of Health Financial Resource Strain: Not on file Food Insecurity: No Food Insecurity (10/10/2024) Hunger Screening Food Insecurity - Worry: Never True Food Insecurity - Inability: Never True Transportation Needs: Not on file Physical Activity: Not on file Stress: Not on file Social Connections: Not on file Interpersonal Safety: Unknown (08/10/2023) Received from [facility] Safety & Environment Fear of Current or Ex-Partner: Not on file Emotionally Abused: Not on file Physically Abused: Not on file Sexually Abused: Not on file Physically or Sexually Abused: Not on file Housing Instability: Not on file No family history on file. Recent Labs: Recent and relative labs were reviewed and interpreted and contributed to the assessment and plan below. Vitals: BP 124/68 (BP Site: Right Arm, BP Postition: Sitting, BP CUFF SIZE: M (9-13 inches)) Pulse 68 Temp 36.7 C (98.1 F) Ht 180.3 cm (5' 11 ) Wt 102.1 kg (225 lb) SpO2 97% BMI 31.38 kg/m Body mass index is 31.38 kg/m . Physical Exam: Physical Exam Constitutional: Appearance: Normal appearance. HENT: Head: Normocephalic and atraumatic. Mouth/Throat: Mouth: Mucous membranes are moist. Eyes: Extraocular Movements: Extraocular movements intact. Pupils: Pupils are equal, round, and reactive to light. Cardiovascular: Rate and Rhythm: Normal rate and regular rhythm. Pulmonary: Effort: Pulmonary effort is normal. Breath sounds: Normal breath sounds. Abdominal: General: Abdomen is flat. Bowel sounds are normal. Palpations: Abdomen is soft. Musculoskeletal: General: Normal range of motion. Cervical back: Normal range of motion. Skin: General: Skin is warm and dry. Neurological: General: No focal deficit present. Mental Status: He is alert and oriented to person, place, and time. Mental status is at baseline. Psychiatric: Mood and Affect: Mood normal. Behavior: Behavior normal. Thought Content: Thought content normal. Judgment: Judgment normal. 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 Initially he was reluctant to have evaluation and management of his multilevel occlusive disease in the right lower extremity. Eventually he agreed to further workup. We will do Right Lower extremity And iliac arterial duplex ultrasound because he has CKD with elevated creatinine. In the meanwhile continue aspirin 81 mg atorvastatin 80 mg and low-dose Eliquis. Richard was seen today for do not move abn abis-non healing wound rt foot-ref by kathy. 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 While intending to generate a timely document that accurately reflects the content of the visit, no guarantee can be provided that every grammatical or spelling mistake has been or will be identified or corrected. Thank you for your understanding. documented in this encounterGrace Cottage HospitalPhonologics10-14-2024 NoteUT Cardiology - [facility] Subjective Richard Boykin is a 83 y.o. year old male patient being seen for follow up echo and DAVON's. Denies chest pain, SOB, palpitations, lightheadedness/syncope, and bleeding on Eliquis. 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 Right lower lobe pneumonia Chronic diastolic heart failure ([facility]/HCC) Nonrheumatic aortic valve stenosis PAD (peripheral artery disease) ([facility]) Mixed hyperglyceridemia History of arthritis Gout Dyspnea on exertion Chronic renal impairment Back pain Ulcer of toe ([facility]) Paroxysmal atrial fibrillation ([facility]) Type 2 diabetes mellitus ([facility]) Diabetes mellitus ([facility]) Hypertension Peripheral arterial occlusive disease ([facility]) Peripheral vascular disease ([facility]) Osteoarthritis Aortic valve stenosis Hyperlipidemia Leg ulcer, left, with unspecified severity ([facility]) JENARO (acute kidney injury) ([facility]) Allergic rhinitis Cellulitis of toe of right foot Vertigo Fatigue Gastroesophageal reflux disease Heart failure ([facility]) Idiopathic peripheral neuropathy Immunodeficiency disorder ([facility]) Morbid obesity ([facility]) Muscle weakness Psoriasis 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 ([facility]) Stage 3b chronic kidney disease ([facility]) Thrombophilia ([facility]) Tinea pedis Uncontrolled type 2 diabetes mellitus Vitamin D deficiency Wound of skin Type 2 diabetes mellitus with peripheral angiopathy ([facility]) Family History Problem Relation Name Age of [...] October 29 to November 02, 2021 at [facility] with MSSA bacteremia likely related to [...] 3 years ago. He follows with a tai chi instructor. Recent testing: ECG 10/25/2021: Atrial fibrillation, nonspecific [...] walker to ambulate. He continues to see tai chi instructor and has a nurse that comes to [...] 03/25/2022: He is seen (more content not included)...[facility] 03-13-2024 NoteEntered by Yvonne Lin on March 13, 2024 [...] 1 year supply Signed by Yvonne Lin From: [facility] To: Marj Sorensen MD Sent: March 12, 2024 10:03:01 PM CDT Subject: Medication Management Due: March 13, 2024 12:04:00 AM CDT On Hold Pending Signature Drug: hydrochlorothiazide-lisinopril (hydrochlorothiazide-lisinopril 12.5 mg-10 mg oral tablet), TAKE 1 TABLET BY MOUTH DAILY Quantity: 30 tab(s) Days Supply: 30 Refills: 0 Substitutions Allowed Notes from Pharmacy: - First Attempt Ref: [id number] Dispensed Drug: hydrochlorothiazide-lisinopril (hydrochlorothiazide-lisinopril 12.5 mg-10 mg oral tablet), TAKE 1 TABLET BY MOUTH DAILY Quantity: 30 tab(s) Days Supply: 30 Refills: 11 Substitutions Allowed Notes from Pharmacy: [facility] [id number]06-16-2022 Evaluation note* Encounter Date Diagnosis Assessment Notes Treatment Notes Treatment Clinical Notes Nov, Acute pain of right shoulder (ICD-10 - M25.511) Nov, Rotator cuff arthropathy of right shoulder (ICD-10 - M12.811) Extensive discussion about current condition and treatment options available. This appears to be a chronic rotator cuff tear. We discussed the importance of maintaining shoulder motion and gentle cuff strengthening exericse. Discussed the use of anti-inflammatory medication. Discussed that occasional cortisone injection may [...] discuss treatment if continues to cause issues [employer] Other 05-18-2022 NoteMR#: [id number] I [facility] Pt. Name: Richard Boykin Admitted: 10/29/2021 Discharged: 11/02/2021 Date of : 1940 Physician: Alicia Sweet MD DISCHARGE SUMMARY FINAL DIAGNOSES: 1. Methicillin-susceptible Staphylococcus aureus bacteremia. 2. Probable septic joint infection. 3. Right knee replacement. 4. New onset atrial fibrillation with RVR. 5. Nonobstructive coronary artery disease and peripheral arterial disease. 6. Tjg-ugdhvsu-cccfxiajh diabetes mellitus. 7. Hypertension. HISTORY OF PRESENT [...] remained negative. He had a TTE at [facility] with poor image quality. There were no evidence of secondary source of infection on physical exam. Apparently, his repeat cultures [facility] on October 24 and October 25, remained [...] his need for full anticoagulation with the production quality manager on an outpatient basis. He understands that [...] Sweet MD Date Trans: 11/03/2021 09:12 A/lindsay [id number] cc: Marj Sorensen M.D. [address] [place] [address] [id number] Hospital05-13-2022 Miscellaneous Notes* Telephone Encounter - Aly Mcclelland MD - 10/29/2021 2:59 PM EDT I was called by BIANCA about patient with septic arthritis and bacteremia requesting transfer for higher level of care. 81 obese, afib, CAD, PAD, hx hip/knee replacement recently moved back from [place]. Presented on 10/24 with R shoulder pain [...] instability. 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 (CMS-HCC)- Primary Iliac artery stenosis, right Atherosclerosis of [place] arteries of the extremities, unspecified Atherosclerosis of aorta documented [facility] N[facility]ative - Reported* Type Description Date Medical History PVD Medical History psoriatic arthritis Medical History diabetes mallitus Medical History Gout arthrits Medical History hypertension Surgical History Bilateral hip replacement Surgical History cataract Surgical History left total hip revision Surgical History RTKA [facility] Other InstructionsNot on filedocumented in this encounter [employer] Summary Purpose Family History No Family History Records Found Relationship Condition Age at Onset Recorded Date/T dell father Diabetes mellitus Unknown Alzheimer's disease Unknown Not Specified Cerebrovascular accident (CVA) Unknown Relationship Condition Age at Onset Recorded Date/T dell father Diabetes mellitus Unknown Alzheimer's disease Unknown mother Cerebrovascular accident (CVA) Unknown Advance Directives No Advanced Directives Records Found Advance Directive Response Recorded Date/ Time Advance Directives No November 12 9:24am Date Activated Date Inactivated Comments 02/27/2023 9:26 PM 02/28/2023 1:55 PM Chief Complaint and Reason for Visit Chief Complaint M25.511 Congestive Heart Failure Chief Complaint Admit Date RENAL CKD October 23, 2024 3:34pm Reason for Visit Admit Date CKD (chronic kidney disease) stage 3, GF R 30-59 ml/min October 23, 2024 3:34pm Hyperlipidemia October 23, 2024 3:34pm Hypertensive chronic kidney disease with stage 1 through stage 4 chronic ki October 23, 2024 3:34pm Secondary hyperparathyroidism October 23, 2 025 3:34pm Type 2 diabetes mellitus with diabetic c hronic kidney disease October 23, 2024 3:34pm Additional Source Comments (unrecognized sect ion and content) No Status Records FoundNo Status Records FoundNo Status Records FoundNo Status Records FoundNo Status Records FoundNo Status Records Found INFORMATION SOURCE (unrecogn ized section and content) DATE CREATED AUTHOR 12/04/2021 [facility] DATE CREATED AUTHOR AUTHOR'S ORGANIZ ATION 01/31/2022 [facility] DATE CREATED AUTHOR AUTHOR'S ORGANIZ ATION 10/25/2022 [facility] DATE CREATED AUTHOR AUTHOR'S ORGANIZ ATION 02/28/2023 [facility] DATE CREATED AUTHOR AUTHOR'S ORGANIZ ATION 10/29/2024 [facility] DATE CREATED AUTHOR AUTHOR'S ORGANIZ ATION 12/03/2024 [facility] REASON FOR VISIT (unrecogniz ed section and content) Reason Comments DO NOT MOVE abn abis-non hea ling wound rt foot-REF BY KATHY DO NOT MOVE abn abis-non healing wound r t foot-REF BY JALEN WC ABIS & NOTES IN MEDIA Care Teams (unrecognized sec tion and content) Team Status: Inactive Member Role Status Dates Marj Sorensen MD Primary Care Provider Active Teofilo Person MD Attending Provider Active Team Status: Inactive Member Role Status Dates Marj Sorensen MD Primary Care Provider Active Sweetie Tomlinson MD Attending Provider Active Team Status: Active Member Role Status Dates Marj Sorensen MD Primary Care Provider Active Team Status: Inactive Member Role Status Dates Marj Sorensen MD Primary Care Provider Active Start: October 23, 2024 End: October 23, 2024 Shelbie Velez MD Attending Provider Active Start : October 23, 2024 End: October 23, 2024 Goals (unrecognized section and content) Goals may [...] BE BASED ON THE PRIMARY CLINICAL RECORDS. [employer] provides no warranty or guarantee of the accuracy or completeness of information in this document.
== END 2024-12-04 14:52 | disposition home or self-care (01) ==
LOC: WC 14:52
PROVIDERS: PCP Family Medicine; Visit Provider Podiatrist Foot & Ankle Surgery
DX: E11.621 Type 2 diabetes mellitus with foot ulcer (principal); L97.512 Non-pressure chronic ulcer of other part of right foot with fat layer exposed; L97.511 Non-pressure chronic ulcer of other part of right foot limited to breakdown of skin
CPT/HCPCS: G0463

== ENCOUNTER 2024-12-11 10:46 | Outpatient (OUT) | payer MEDICARE, SELFPAY ==
--- OUTSIDE RECORDS SUMMARY | 2024-12-11 10:52 | XMS_ITS | Referral Summary ---
Author Organization [facility] Address [address] [place] [address] Care Team Providers Care Brick Baker Name Role Phone Zhao Sorensen MD Primary Care Provider [phone] Encounters Date Type Department Care Team Description 10/28/2024 11:45 AM EDT Office Visit [facility] [place] [address] [place] [address] Lonny Liu MD PAD (peripheral [...] Assessment & Plan (10/21/2022 11:36 AM EDT): [id number]= 7 age, HTN, CHF, DM and PAD Continue eliquis 2.5 mg bid, and metoprolol 25 mg bid- heart rate well controlled Peripheral arterial occlusive disease 01/24/2022 Aortic valve stenosis 01/24/2022 Acquired hypothyroidism 11/30/2021 Cellulitis of lower leg 11/30/2021 Hyperglycemia 11/30/2021 Right lower lobe pneumonia 11/30/2021 Atrial fibrillation 11/29/2021 Assessment & Plan (10/21/2022 9:24 AM EDT): [id number]-JOSb score is 4 due to age, hypertension, [...] of Treatment Not on file Insurance MEDICARE [facility] Care Teams Brick Baker Relationship Specialty Start Date End Date Zhao Sorensen MD [address] [place] [address] PCP - General 02/19/22
--- OUTSIDE RECORDS SUMMARY | 2024-12-11 10:53 | XMS_ITS | Data Portability ---
Author Organization [facility] [employer], [employer], [facility] Address [facility] [address] [place] [address] Care Team Providers Care Commercial Lines Account Executive Name Role Phone EDGAR RAMOS Primary Care Provider EDGAR RAMOS Referring Provider Assessment Encounter Date Assessment Date Assessment LastModified by Organization Details LastModified Time 07/27/2023 07/27/2023 Cellulitis foot Not available 07/30/2023 13:49:56 Plan of Treatment Reminders Order Date Submit Date Provider Last Modified By Organization Details Last Modified Time Details Appointments None recorded. Lab HbA1c (hemoglobin A1c), blood 2023 [facility], [address] [place], [address], 07:10:35 vitamin D, 25-hydroxy, total, serum 2023 024 [facility], [address] [place], [address], 07:10:36 Referral None recorded. Procedures None recorded. Surgeries None recorded. Imaging None recorded. Medication Orders glimepiride 4 mg tablet 2023 024 [facility], [facility] [address], [facility] [address], [place], [place], [id number], 4 17:13:18 Jardiance 25 mg tablet 2023 024 [facility], [address], [address], [place], [place], [id number], 4 17:13:18 Toujeo Max U-300 SoloStar 300 unit/mL (3 mL) subcutaneou s insulin pen 2023 024 [facility], [address], [address], [place], [place], [id number], 4 17:13:18 Jardiance 25 mg tablet 2023 024 [facility], [address], [address], [place], [place], [id number], 4 09:23:33 Toujeo Max U-300 SoloStar 300 unit/mL (3 mL) subcutaneou s insulin pen 2023 024 [email or web address] 146 [facility], [address], [address], [place], [place], [id number], 4 14:21:24 Eliquis 5 mg tablet 2023 024 [facility], [address], [address], [place], [place], [id number], 4 09:23:33 allopurinol 300 mg tablet 2023 024 MARIBELL [facility], [address], [address], [place], [place], [id number], 4 10:03:15 metoprolol tartrate 25 mg tablet 2023 024 MARIBELL [facility], [address], [address], [place], [place], [id number], 4 10:03:12 montelukast 10 mg tablet 2023 024 MARIBELL [facility], [address], [address], [place], [place], [id number], 4 10:03:14 tramadol 50 mg tablet 2023 024 MARIBELL [facility], [address], [address], [place], [place], [id number], 4 10:03:16 Claritin 10 mg tablet 2023 024 MARIBELL [facility], [address], [address], [place], [place], [id number], 4 13:41:06 ropinirole 2 mg tablet 2023 024 MARIBELL [facility], [address], [address], [place], [place], [id number], 4 10:03:13 glimepiride 4 mg tablet 2023 024 MARIBELL [facility], [address], [address], [place], [place], [id number], 4 10:03:13 Jardiance 25 mg tablet 2023 024 MARIBELL [facility], [address], [address], [place], [place], [id number], 4 10:03:08 Toerich KingoStcindy U-300 Insulin 300 unit/mL (1.5 mL) subcutaneou s pen 2023 024 [email or web address] 146 [facility], [address], [address], [place], [place], [id number], 4 13:10:11 Eliquis 5 mg tablet 2023 024 MARIBELL [facility], [address], [address], [place], [place], [id number], 4 10:03:09 furosemide 40 mg tablet 2023 024 MARIBELL [facility], [address], [address], [place], [place], [id number], 4 10:03:14 lisinopril 2.5 mg tablet 2023 024 MARIBELL [facility], [address], [address], [place], [place], [id number], 4 10:03:10 lisinopril 10 mg-hydrochl orothiazide 12.5 mg tablet 2023 024 MARIBELL [facility], [address], [address], [place], [place], [id number], 4 13:57:00 pantoprazol e 40 mg tablet,dulce yed release 2023 024 MARIBELL [facility], [address], [address], [place], [place], [id number], 4 10:03:14 levothyroxi ne 50 mcg tablet 2023 024 MAIRBELL [facility], [address], [address], [place], [place], [id number], 4 10:03:11 allopurinol 300 mg tablet 2022 023 [facility], [address], [address], [place], [place], [id number], 3 12:59:14 hydrochloro thiazide 12.5 mg tablet 2022 023 [email or web address] [facility], [address], [address], [place], [place], [id number], 4 13:50:31 metoprolol tartrate 25 mg tablet 2022 023 [email or web address] [facility], [address], [address], [place], [place], [id number], 3 12:59:14 montelukast 10 mg tablet 2022 023 [email or web address] [facility], [address], [address], [place], [place], [id number], 3 12:59:14 ropinirole 2 mg tablet 2022 023 [facility], [address], [address], [place], [place], [id number], 3 12:59:14 glimepiride 4 mg tablet 2022 023 [facility], [address], [address], [place], [place], [id number], 3 12:59:14 Jardiance 25 mg tablet 2022 023 [email or web address] [facility], [address], [address], [place], [place], [id number], 3 12:59:14 Toujeo Max U-300 SoloStar 300 unit/mL (3 mL) subcutaneou s insulin pen 2022 023 [email or web address] [facility], [address], [address], [place], [place], [id number], 3 12:59:14 Eliquis 5 mg tablet 2022 023 [facility], [address] [place] [address], [place] [address], [id number], 3 12:59:14 furosemide 40 mg tablet 2022 023 [facility], [address] [place] [address], [facility] [address], [place], [place], [id number], 3 12:59:14 levothyroxi ne 50 mcg tablet 2022 023 [facility], [address], [address], [place], [place], [id number], 3 12:59:14 lisinopril 2.5 mg tablet 2022 023 [facility], [address] [place] [address], [address], [place], [place], [id number], 3 12:59:14 Patient TargetsNo targets recorded. Patient Instructions Encounter Date Encounter Id Patient Instructions Last Modified By Organization Details Last Modified Time 06/26/2023 [id number] type 2 diabetes: care instructions Not available 06/27/2023 10:03:04 atrial fibrillation: care instructions Not available 06/27/2023 10:03:05 hypothyroidism: care instructions Not available 06/27/2023 10:03:05 09/07/2023 [id number] type 2 diabetes: care instructions Not available 09/07/2023 09:23:33 04/25/2024 [id number] high cholesterol : care instructions Not available 04/27/2024 13:57:58 Value Based Patient Guide Not available 04/27/2024 13:52:53 Reason for Referral None Reported. Results Created Date Observation Date Name Description Value Unit Range Abnormal Flag Note LastModifiedBy Organization Detail LastModifiedTime 07/07/1907/08/2023 HEMOG LOBIN A1C hemoglobin A1C 11.1 % 4.8-5. 6 above high normal . Predi abete s: 5.7 - 6.4 Diabe susan: >6.4 Glyce karen contr ol for adult s with diabe susan: <7.0 Not Available [facility] ([facility]) [address] [facility], [place], [address], 07/08/2023 07:10:35 07/07/19 24 07/08/2023 VITAM IN [...] Endoc rine Socie ty went on to furth er defin e vitam in D insuf ficie ncy as a level betwe en 21 and 29 ng/mL (2). 1. IOM (Inst itute of Medic ine). 2010. Dieta ry refer ence intak es for calci um and D. Clay hutchinson [place]: The [facility] Press . 2. Nury ayala [place], [place] holder [place], Jessica off-F errar i HANSON, et al. Evalu ation , treat ment, and preve ntion of vitam in D defic iency : an Endoc rine Socie ty clini fernando pract ice guide line. JCEM. 2010; 96(7) :1911 -30. Not Available [facility] ([facility]) [address] [facility], [place], [address], 07/08/2023 07:10:36 Result Notes None recorded. Problems Name Problem SNOMED Code Status Onset Date Resolution Date Notes Provider Name and Address Organization Details Recorded Time Gout 16229901 Active 2021 Not Available [facility] 4 03:27:48 Tinea pedis 1726953 Active 2021 Not Available [facility] 4 03:27:48 Psoriasis 8909681 Active 2021 Not Available [facility] 4 03:27:48 Disorder of thyroid gland 48696481 Active 2021 Not Available [facility] 4 03:27:47 Dizziness 755891621 Active 2021 Not Available [facility] 4 03:27:47 Wound of skin 440712831 Active 2021 Not Available [facility] 4 03:27:47 Atrial fibrillat ion 35319430 Active 2021 Not Available [facility] 4 03:27:48 Thromboph bj 803944881 Active 2021 Not Available [facility] 4 03:27:47 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 678396054 Active 2021 Not Available [facility] 4 03:27:47 Morbid obesity 586871464 Active 2021 Not Available [facility] 4 03:27:47 Periphera l vascular disease 801436035 Active 2021 Not Available [facility] 4 03:27:47 Muscle weakness 97177914 Active 2021 Not Available [facility] 4 03:27:47 Chronic kidney disease stage 3B 012136757 Active 2021 Not Available [facility] 4 03:27:48 Osteoarth ritis 404241603 Active 2021 Not Available [facility] 4 03:27:47 Immunodef iciency disorder 338879717 Active 2022 Not Available [facility] 4 03:27:47 Idiopathi c periphera l neuropath y 99687172 Active 2022 Not Available [facility] 4 03:27:47 Vertigo 499132377 Active 2022 Not Available [facility] 4 03:27:47 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 62556663736 9109 Active 2022 Not Available [facility] 4 03:27:47 Fatigue 64944945 Active 2022 Not Available [facility] 4 03:27:48 Allergic rhinitis 72457570 Active 2023 Not Available [facility] 4 03:27:48 Hypothyro idism 76017313 Active 2023 Not Available [facility] 4 03:27:48 Vitamin D deficienc y 42469920 Active 2023 Not Available [facility] 4 03:27:47 Hyperglyc emia 31280000 Active 2023 Not Available [facility] 4 03:27:48 Heart failure 12319345 Active 2023 Not Available [facility] 4 03:27:48 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 mellitus 53723987865 8 Active 2023 Not Available [facility] 4 03:27:48 Gastroeso phageal reflux disease 521350105 Active 2023 Not Available [facility] 4 03:27:47 Celluliti s of toe of right foot 29392472507 920361 Active 2023 Not Available [facility] 4 03:27:47 Periphera l circulato ry disorder due to type 2 diabetes mellitus 500660675 Active 2023 Not Available [facility] 4 03:27:48 Chronic ulcer of skin of lower leg 80578105036 071162 Active 2023 Edgar Ramos MD [address], [place], [address] , [facility], [facility] 4 13:53:48 Edema of lower extremity 564945808 Active 2023 Edgar Ramos MD [address], [place], [address] , [facility], [facility] 4 13:53:58 Chronic ulcer of ankle 178224259 Active 2023 Edgar Ramos MD [address], [place], [address] , [facility], [facility] 4 13:54:18 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 Active 2023 MD Deisi Krishnamurthy[address], [place], [address] , [facility], [facility] 4 13:54:25 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 652824179 Active 2023 MD Deisi Krishnamurthy[address], [place], [address] , [facility], [facility] 4 13:55:05 Chronic ulcer of foot 700430607 Active 2023 MD Farzaneh Krishnamurthy [address], [place], [address] , [facility], [facility] 13:55:06 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 MD Farzaneh Krishnamurthy [address], [place], [address] , [facility], [facility] 4 13:55:08 Type 2 diabetes mellitus 77246434 Active 2023 MD Farzaneh Krishnamurthy [address], [place], [address] , [facility], [facility] 4 13:55:13 Counselin g Active 2023 MD Farzaneh Krishnamurthy [address], [place], [address] , [facility], [facility] 4 13:55:17 Hyperlipi demia 17142350 Active 2023 MD Farzaneh Krishnamurthy [address], [place], [address] , [facility], [facility] 4 13:57:52 Type 2 diabetes mellitus 72699184 Completed 201806/20/2019 MD Farzaneh Krishnamurthy [address], [place], [address] , [facility], [employer] 4 13:55:13 Body mass index 40+ - severely obese 378276848 Active 2018 Not Available [facility] 4 03:27:48 Essential hypertens ion 71283751 Active 2018 Not Available [facility] 4 03:27:48 Uncontrol led type 2 diabetes mellitus 715652404 Active 2019 Not Available [facility] 4 03:27:48 Body mass index 30+ - obesity 798930662 Completed 201908/24/2020 Edgar Ramos MD [address], [place], [address] , [facility] - [facility], [facility] 1 18:32:07 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 650413455 Active 2020 Not Available [facility] 4 03:27:47 Restless legs 36058222 Active 2020 Not Available [facility] 4 03:27:47 Influenza vaccine needed 08582275828 06 Active 2020 Not Available [facility] 4 03:27:47 Diet education Active 2020 Not Available [facility] 4 03:27:47 Obesity 692907861 Active 2020 Not Available [facility] 4 03:27:48 Body mass index 30+ - obesity 015825333 Active 2020 Not Available [facility] 4 03:27:47 Adult health examinati on Active 2020 Not Available [facility] 4 03:27:47 Notes:Some problems listed i n Documents: #[id number], #[id number], #[id number], #[id number] could not be added to this patient's chart. Please review these documents and add these problems to the patient's chart manually as needed. Problem Notes None recorded. Procedures Surgical History Date Name Laterality Status Provider Name and Address Organization Details Recorded Time 06/26/19 24 Quality Functional Assessment completed Tami Adler [facility], [facility] 06/26/2023 12:01:17 06/26/19 24 Quality Medication Reviewed and Updated completed Tami Adler [facility], [facility] 06/26/2023 12:01:17 06/26/19 24 Medicare AWV Questionnaire completed Tami Adler [facility], [facility] 06/26/2023 12:01:25 06/26/19 24 Quality BMI with follow up completed Tami Adler [facility], [facility] 06/26/2023 12:01:17 06/26/19 24 Quality Advanced Care Planning completed Tami Adler [facility], [facility] 06/26/2023 12:01:17 06/26/19 24 Quality Incontinence Screening completed Tami Adler [facility], [facility] 06/26/2023 12:01:17 06/26/19 24 Medicare AWV-Screening Schedule completed Tami Adler [facility], [facility] 06/26/2023 12:01:17 06/26/19 24 Quality Fall Risk Assessment completed Tami Adler [facility], [facility] 06/26/2023 12:01:17 10/11/19 23 Quality Medication Reviewed and Updated completed Jeane Wheatley [facility], [facility] 10/10/2022 15:21:28 10/11/19 23 Quality Pain Screening positive Pain completed Jeane Wheatley [facility], [facility] 10/10/2022 15:23:22 08/19/19 23 Quality Pain Screening No Pain completed Henrik Simmons [facility], [facility] 08/18/2022 07:54:07 08/19/19 23 Quality Medication Reviewed and Updated completed Henrik Simmons [facility], [facility] 08/18/2022 07:54:06 06/24/19 23 Quality Pain Screening No Pain completed Henrik Simmons [facility], [facility] 06/23/2022 13:12:32 06/24/19 23 Quality Medication Reviewed and Updated completed Henrik Simmons [facility], [facility] 06/23/2022 13:12:23 06/24/19 23 Quality Tobacco Non- User completed [facility], [facility] 06/23/2022 13:12:39 06/24/19 23 ophthalmic examination and evaluation completed Jeane Wheatley [facility], [facility] 06/25/2022 09:18:47 06/15/20 22 Quality Medication Reviewed and Updated completed Henrik Simmons [facility], [facility] 06/15/2022 12:43:13 06/15/20 22 Quality Pain Screening positive Pain completed [facility] 06/15/2022 13:40:36 05/20/20 22 Quality Medication Reviewed and Updated completed [facility], [facility] 05/19/2022 13:02:54 05/20/20 22 Quality Fall Risk Assessment Low Risk completed [facility], [facility] 05/19/2022 13:02:53 05/20/20 22 Quality Pain Screening positive Pain completed [facility], [facility] 05/20/2022 09:08:34 05/20/20 22 hemoglobin A1c measurement completed [facility], [facility] 06/03/2022 08:37:59 05/20/20 22 urine microalbumin/crea tinine ratio measurement completed [facility], [facility] 06/03/2022 08:39:38 04/20/20 22 Quality Functional Assessment completed [facility], [facility] 04/20/2022 07:49:52 04/20/20 22 Quality Medication Reviewed and Updated completed [facility], [facility] 04/20/2022 07:49:51 04/20/20 22 Quality Fall Risk Assessment Low Risk completed [facility], [facility] 04/20/2022 07:50:04 04/20/20 22 Quality Pain Screening positive Pain completed [facility] Simmons [facility], [facility] 04/20/2022 11:33:31 04/12/20 22 ophthalmic examination and evaluation completed Jeane Wheatley [facility], [facility] 04/23/2022 11:31:52 09/10/19 Quality Functional Assessment completed [facility], [facility] 09/07/2021 19:46:14 09/10/19 Quality Medication Reviewed and Updated completed [facility], [facility] 09/07/2021 19:46:14 09/10/19 Quality (DM or HTN ) BP Systolic < 130 completed [facility], [facility] 09/07/2021 19:47:39 09/10/19 Quality BMI with follow up completed [facility], [facility] 09/07/2021 19:46:14 09/10/19 Quality Advanced Care Planning completed [facility], [facility] 09/07/2021 19:46:14 09/10/19 Quality Incontinence Screening completed [facility], [facility] 09/07/2021 19:46:14 09/10/19 Medicare AWV - Screening Schedule completed [facility], [facility] 09/07/2021 19:46:14 09/10/19 Quality Fall Risk Assessment completed [facility], [facility] 09/07/2021 19:46:14 08/12/19 Quality Medication Reviewed and Updated completed [facility], [facility] 08/08/2021 15:29:10 08/12/19 22 Quality (DM or HTN ) BP Systolic < 130 completed [facility], [facility] 08/08/2021 15:29:08 08/12/19 22 Quality Pain Screening positive Pain completed [facility], [facility] 08/08/2021 15:29:21 07/12/19 22 diabetic retinopathy screening completed [facility], [facility] 07/13/2021 12:36:37 05/04/20 Quality Functional Assessment completed [facility], [facility] 05/03/2021 10:04:49 05/04/20 21 Quality Medication Reviewed and Updated completed [facility], [facility] 05/03/2021 10:04:49 05/04/20 21 Quality Fall Risk Assessment Low Risk completed [facility], [facility] 05/03/2021 10:04:49 05/04/20 21 Quality BMI with follow up completed [facility], [facility] 05/03/2021 10:04:49 05/04/20 21 Quality Advanced Care Planning completed [facility], [facility] 05/03/2021 10:04:49 05/04/20 21 Quality Incontinence Screening completed [facility], [facility] 05/03/2021 10:04:49 05/04/20 21 Medicare AWV - Screening Schedule [facility] 05/03/2021 10:04:49 04/06/20 21 Quality Functional Assessment completed [facility], [facility] 03/23/2021 19:15:31 04/06/20 21 Quality Medication Reviewed and Updated completed [facility], [facility] 03/23/2021 19:15:31 04/06/20 21 Quality Fall Risk Assessment Low Risk completed [facility], [facility] 03/23/2021 19:15:31 04/06/20 21 Quality BMI with follow up completed [facility] 03/23/2021 19:15:31 04/06/20 21 Quality Advanced Care Planning completed [facility], [facility] 03/23/2021 19:15:31 04/06/20 21 Quality Incontinence Screening completed [facility], [facility] 03/23/2021 19:15:31 04/06/20 21 Medicare AWV - Screening Schedule completed [facility] 03/23/2021 19:15:31 08/25/19 21 Quality Functional Assessment completed [facility]ik[facility] [place] [facility] 08/24/2020 10:13:58 08/25/19 21 Quality Medication Reviewed and Updated completed Shikha Garcia [facility], [facility] 08/24/2020 10:13:58 08/25/19 21 Quality Fall Risk Assessment Low Risk completed Shikha Garcia [facility], [facility] 08/24/2020 10:13:58 08/25/19 21 Quality BMI with follow up completed Shikha Garcia [facility], [facility] 08/24/2020 10:13:58 08/25/19 21 Quality Advanced Care Planning completed Shikha Garcia [facility] 08/24/2020 10:13:58 08/25/19 21 Quality Incontinence Screening completed Shikha Garcia [facility] 08/24/2020 10:13:58 08/25/19 21 Medicare AWV - Screening Schedule completed Shikha Garcia [facility] 08/24/2020 10:13:58 03/19/20 19 Knee surgery completed Jeane Wheatley [facility], [facility] 04/06/2021 16:08:33 06/19/19 19 colonoscopy completed Edgar Ramos MD [address], [address], [facility] 04/06/2021 18:28:22 06/19/19 09 Joint replacement, other completed Henrik Simmons [facility] 05/19/2022 13:03:33 Imaging Results None recorded. Procedure Notes None recorded. Medical Equipment None Reported. Allergies No known drug allergies Medications Name Sig Start Date Stop Date Status Note LastModified by Organization Details LastModified Time Prescript ion - Clarifica tion active [facility] Not Available Not Available Not Available Prescript ion - New 05/04 completed Not Available Not Available Not Available Prescript ion - Prior Authoriza tion Request 05/04 completed [facility] Not Available Not Available Not Available amoxicill in 500 mg capsule 11/07 /2024 completed Not Available Not Available Not Available [...] active Not Available Not Available Not Avai leroy [facility] 10 mg tablet Take 1 [...] [degF] 18 /min 177.8 cm 33.9 kg/m2 514456. 95 g 77 /min 97 % 97 % 138 mm[Hg] 74 mm[Hg] Francesca Yanez [facility], [facility] 4 15:34:17 Date Recorded Body height Body mass index (BMI) Body weight Body temperature Heart rate Respiratory rate Oxygen saturation Oxygen saturation in Arterial blood by Pulse oximetry Systolic blood pressure Diastolic blood pressure Provider Name and Address Organization Details Last Updated DateTime 4 177.8 cm 34 kg/m2 129160. 11 g 97.4 [degF] 40 /min 18 /min 91 % 91 % 152 mm[Hg] 98 mm[Hg] Tami Adler [facility], [facility] 4 10:34:11 Date Recorded Body height Body mass index (BMI) Body weight Body temperature Respiratory rate Heart rate Oxygen saturation Oxygen saturation in Arterial blood by Pulse oximetry Systolic blood pressure Diastolic blood pressure Provider Name and Address Organization Details Last Updated DateTime 4 177.8 cm 33.7 kg/m2 207682. 21 g 97 [degF] 19 /min 70 /min 93 % 93 % 164 mm[Hg] 88 mm[Hg] Tami Adler [facility], [facility] 4 07:52:35 Date Recorded Body height Body mass index (BMI) Body weight Body temperature Heart rate Oxygen saturation Oxygen saturation in Arterial blood by Pulse oximetry Systolic blood pressure Diastolic blood pressure Provider Name and Address Organization Details Last Updated DateTime 3 177.8 cm 34.3 kg/m2 938608. 01 g 97.2 [degF] 77 /min 95 % 95 % 126 mm[Hg] 74 mm[Hg] Jeane Wheatley [facility], [facility] 3 15:23:01 Date Recorded Body height Body mass index (BMI) Body weight Body temperature Heart rate Oxygen saturation Oxygen saturation in Arterial blood by Pulse oximetry Systolic blood pressure Diastolic blood pressure Provider Name and Address Organization Details Last Updated DateTime 4 177.8 cm 32.3 kg/m2 264040. 72 g 98.2 [degF] 79 /min 98 % 98 % 128 mm[Hg] 60 mm[Hg] Lala Flores [facility], [facility] 4 13:28:24 Social History Question Answer Notes LastModified by Organizat ion Details LastModified Time Tobacco Smoking Status Never Smoker Yumi dailey [facility], [facility] 04/17/2019 11:10:25 Do You Have An Advance Directive? Yes [email or web address] Information not available 05/08/2019 Is Your Home Air Conditioned? Yes [email or web address] Information not available 06/26/2023 Are You Currently Sexually Active With Anyone Who Has Traveled (within The Last 12 Weeks) To A Zika-affected Area? No [email or web address] Information not available 06/26/2023 Do You Wear A Helmet When Biking? No [email or web address] Information not available 06/26/2023 Is Blood Transfusion Acceptable In An Emergency? Yes [email or web address] Information not available 09/09/2021 What Is Your Level Of Caffeine Consumption? Occasional Information not available 05/08/2019 In The 14 Days Before Symptom Onset, Have You Had Close Contact With A Laboratory-confi rmed COVID-19 While That Case Was Ill? No [email or web address] Information not available 06/26/2023 In The 14 Days Before Symptom Onset, Have You Had Close Contact With A Person Who Is Under Investigation For COVID-19 While That Person Was Ill? No [email or web address] Information not available 06/26/2023 Have You Been To An Area Known To Be High Risk For COVID-19? No [email or web address] Information not available 06/26/2023 What Type Of Diet Are You Following? DIABETIC [email or web address] Information not available 06/26/2023 Which Illicit Or Recreational Drugs Have You Used? None Information not available 06/20/2019 Have You Processed Blood Or Body Fluids From An Ebola Virus Disease Patient Without Appropriate PPE? No [email or web address] Information not available 06/26/2023 Do You Reside In Or Have You Traveled To An Area Where Ebola Virus Transmission Is Active? No [email or web address] Information not available 06/26/2023 Education 2 Year College Informatio n not available 06/26/2023 Do You Have An Electrostatic Air Filter? No [email or web address] Information not available 06/26/2023 Have There Been Any Changes To Your Family Or Social Situation? No [email or web address] Information not available 06/26/2023 What Is The Fluoride Status Of Your Home? Unknown [email or web address] Information not available 06/26/2023 Are There Any Guns Present In Your Home? No [email or web address] Information not available 06/26/2023 Which Of Your Hands Is Dominant? Right [email or web address] Information not available 06/26/2023 Do You Have A Humidifier? No [email or web address] Information not available 06/26/2023 Where Do You Live? SingleLevelHouse Information not available 06/26/2023 Alcohol Use Less Than 1 Per Month Information not available 04/06/2021 Do You Smoke? No Informatio n not available 04/06/2021 Year Quit Tobacco Use Never Information not available 04/06/2021 Marital Status Informatio n not available 06/26/2023 Do You Have A Medical Power Of [employer]? Yes [email or web address] Information not available 06/26/2023 What Was The Date Of Your Most Recent Tobacco Screening? 06/26/2023 Information not available 06/26/2023 What Is Your Relationship Status? [email or web address] Information not available 05/04/2021 Do You Use Your Seat Belt Or Car Seat Routinely? Yes [email or web address] Information not available 06/26/2023 Are You Sexually Active? No Information not available 08/24/2020 Do You Have Smoke And Carbon Monoxide Detectors In Your Home? Yes [email or web address] Information not available 06/26/2023 Are You Passively Exposed To Smoke? No Information not available 06/26/2023 Are There Any Smokers In Your House? No [email or web address] Information not available 06/26/2023 Do You Use Sunscreen Routinely? No [email or web address] Information not available 06/26/2023 Has Tobacco Cessation Counseling Been Provided? No Information not available 06/26/2023 How Many Years Have You Smoked Tobacco? 0 Information not available 08/24/2020 Do You Have Any Dietary Restrictions? No [email or web address] Information not available 06/26/2023 Sex: Male Functional Status Question Answer Note LastModified by Organizat ion Details LastModified Time Do you use any illicit or recreational drugs? No Information not available 06/26/2023 Do you or have you ever used any other forms of tobacco or nicotine? No Information not available 06/26/2023 What is your level of alcohol consumption? None Information not available 04/17/2019 Do you or have you ever used smokeless tobacco? Never used [email or web address] tobacco Information not available 05/08/2019 Are you currently employed? No [email or web address] Information not available 06/26/2023 Have you been exposed to chemicals or toxins? No Information not available 06/26/2023 Do you have transportation difficulties? No [email or web address] Information not available 06/26/2023 Are you able to care for yourself? Yes [email or web address] Information n ot available 06/26/2023 What is your exercise level? Moderate Information not available 06/26/2023 Mental Status None recorded. Family History Relationship Description Onset Age of this Age Resolved Age Notes LastModified by Organization Details LastModified Time Father Arthritis [email or web address] Not availa ble 05/08/2019 10:42:11 Father Diabetes mellitus [email or web address] Not available 05/08 10:42:11 Medical History Condition Response Cancer (location) N Other N Gout Y Thyroid Disease N Kidney Stones N Emphysema/COPD N Measles/Mumps N Sexually Transmitted Disease N Depression N Prostate Problems N Vascular Disease N Rash/Skin Condition N Amputation (location) N Parkinson's N Paralysis N Headaches/Migraines N Cardiac Pacemaker/defibrillator N Nerve Damage / Neuropathy N Arthritis Y Sleep disorder/Insomnia N Infertility N Heart disease / Heart Attack N Crohn's Disease N HIV/AIDS N Stroke/TIA N High Cholesterol N Colon Problems N Serious Injuries N Kidney Disease N [...] pneumococcal polysaccharide PPV23 2 completed Not Available [facility] 08/04/2023 03:27:48 Influenza, split virus, trivalent, preservative 5 completed Not Available [facility] 08/04/2023 03:27:48 Influenza, high-dose, trivalent, PF 6 completed Not Available [facility] 08/04/2023 03:27:48 zoster live 1 completed Not Available [facility] 08/04/2023 03:27:48 Influenza, split virus, quadrivalent, preservative 0 completed Not Available [facility] 08/04/2023 03:27:48 COVID-19, mRNA, LNP-S, PF, 100 mcg/0.5mL dose or 50 mcg/0.25mL dose 1 completed Not Available [facility] 08/04/2023 03:27:48 COVID-19, mRNA, LNP-S, PF, 100 mcg/0.5mL dose or 50 mcg/0.25mL dose 1 completed Not Available [facility] 08/04/2023 03:27:48 COVID-19, mRNA, LNP-S, PF, 100 mcg/0.5mL dose or 50 mcg/0.25mL dose 1 completed Not Available [facility] 08/04/2023 03:27:48 Influenza, adjuvanted, quadrivalent, PF 1 completed Jeane dailey [facility], [facility] 04/06/2021 17:27:33 pneumococcal polysaccharide PPV23 1 completed Jeane dailey [facility], [facility] 04/09/2021 07:27:56 Past Encounters Encounter ID Performer Location Encounter Start Date Encounter Closed Date Diagnosis/Indication Diagnosis SNOMED-CT Code Diagnosis ICD10 Code Diagnosis Note [id number] Edgar Ramos MD [facility] [address] [place] [address] 04/17/2019 10:35:50 04/17/2019 12:08:28 Body mass index 40+ - severely obese 029115395 Z68.41 weight issues discussed and informatio n on weight loss given. needs follow up on weight control as scheduled. Education handout on diets given. Exercise counseling done. Will arrange referral for dietitian, nutritioni st, Physical/o ccupationa l therapy as needed or desired. Also will consider pharmaceut ical and supplement al interventi ons Morbid obesity 924274073 E66.01 see BMI above for details.. Chronicall y he appears likely [facility] Diet education 79706973 Z71.3 as above Type 2 isaias betes mellitus 11979159 E11.21 This sugar will be watched his levels are good. We are going to cut his Jardiance in half he is going to watch his diet Peripheral vascular disease 060241784 I73.9 His Nizoral shampoo every fifth day I advised him how to do it [id number] Edgar Ramos MD [facility] [place] [address] [place] [address] 05/08/2019 10:24:41 05/08/2019 12:07:03 Essential hypertension 86592771 I10 His blood pressure is stable he is monitoring his pressure Diet education 98678644 Z71.3 as above Body mass index 40+ - severely obese 232697530 Z68.41 weight issues discussed and informatio n on weight loss given. needs follow up on weight control as scheduled. Education handout on diets given. Exercise counseling done. Will arrange referral for dietitian, nutritioni st, Physical/o ccupationa l therapy as needed or desired. Also will consider pharmaceut ical and supplement al interventi ons Morbid obesity 552839445 E66.01 see BMI above for details. Tinea pedis 5807373 B35. 3 We are going to add Diflucan to his treatment. He does take a little bit of tramadol but not enough to interfere with the Diflucan I did give him 20 days. We should see this patient back within about a month's time he will continue to see his rheumatolo gy Type 2 isaias betes mellitus 37008603 E11.21 This sugar will be watched his levels are good. We are going to cut his Jardiance in half he is going to watch his diet [id number] Edgar Ramos MD [facility] [place] [address] [place] [address] 06/20/2019 14:36:03 06/20/2019 15:36:18 Body mass index 40+ - severely obese 190898236 Z68.41 weight issues discussed and informatio n on weight loss given. needs follow up on weight control as scheduled. Education handout on diets given. Exercise counseling done. Will arrange referral for dietitian, nutritioni st, Physical/o ccupationa l therapy as needed or desired. Also will consider pharmaceut ical and supplement al interventi ons Type 2 isaias betes mellitus 93574661 E11.21 This sugar will be watched his levels are good. We are going to cut his Jardiance in half he is going to watch his diet I want to try to control the diet without getting his sugar too low Tinea pedis 4938334 B35. 3 He is going to finish up his Diflucan he will also continue his every 5 or 6 days topical Nizoral treatment Peripheral vascular disease 459140756 I73.9 I am hoping to keep his cholestero l low and also his A1c low have him continue walking hopefully he can bring his weight down little bit Uncontroll ed type 2 diabetes mellitus 023840656 E11.65 His diabetes by itself is uncontroll ed is all over the place of course he does not watch his diet too well Type 2 isaias betes mellitus with peripheral angiopathy 454756646 E11.51 He has comorbidit y of his diabetes and his peripheral vascular disease [id number] Edgar Ramos MD [facility] [address] [place] [address] 07/29/2019 15:27:23 07/29/2019 17:20:34 Body mass index 30+ - obesity 009506597 Z68.39 Uncontroll ed type 2 diabetes mellitus 003834318 E11.65 His diabetes by itself is uncontroll [...] sugar still take care of cost Gout 62522293 M10.9 He is watching gouty foods and he is avoiding nose we did refill his allopurino l today [id number] Edgar Ramos MD [facility] [address] [place] [address] 09/04/2019 10:25:58 09/04/2019 12:19:01 Tinea pedis 4062288 B35.3 This patient is still using about every 10 to 12 days a treatment with Nizoral shampoo and is working beautifull y for him. Uncontroll ed type 2 diabetes mellitus 239460142 E11.65 This patient's sugars are dramatical ly better he is running great between 95 and 130. Were to try lab rise little bit higher and cut the Jardiance down to 1/2 tablet of the 10 mg. I will see him in the fall I am extremely pleased with his ownership of disease [id number] Edgar Ramos MD [facility] [address] [place] [address] 05/04/2020 14:36:18 05/04/2020 17:03:23 Essential hypertension 34036644 I10 His blood pressure is stable he is monitoring his pressure blood pressures are acceptable Uncontroll ed type 2 diabetes mellitus 197792852 E11.65 Patient sugars are running pretty much all over the place we need to get an A1c because his last A1c was 8.4 History of total knee arthroplasty 0895520839 105 Z96.659 His knee is actually doing well that is actually the best part of it [id number] Edgar Ramos MD [facility] [address] [place] [address] 06/22/2020 10:24:53 06/22/2020 12:11:26 Essential hypertension 26695434 I10 His blood pressure is stable he is monitoring his pressure blood pressures are acceptable Uncontroll ed type 2 diabetes mellitus 375753725 E11.65 Patient sugars are running pretty much all over the place we need to get an A1c because his last A1c was 8.4 Restless legs 34454893 G 25.81 Screening for malignant neoplasm of prostate 213423612 Z12.5 [id number] Edgar Ramos MD [facility] [place] [address] [place] [address] 07/03/2020 09:14:07 07/03/2020 10:43:52 Uncontrolled type 2 diabetes mellitus 311269430 E11.65 Patient sugars are running pretty much all over the place we need to get an A1c because his last A1c was 8.4. For now we will get and try to bring his postprandi al sugars down a little better by increasing his Jardiance from 10-25 Restless legs 31529546 G 25.81 We refilled his ropinirole he is taking 2 mg twice daily Renewal of prescription 998390197 Z76.0 He needs a renewal of his medication s today Body mass index 40+ - severely obese 973679480 Z68.41 weight issues discussed and informatio n on weight loss given. needs follow up on weight control as scheduled. Education handout on diets given. Exercise counseling done. Will arrange referral for dietitian, nutritioni st, Physical/o ccupationa l therapy as needed or desired. Also will consider pharmaceut ical and supplement al interventi ons Type 2 isaias betes mellitus with peripheral angiopathy 343134961 E11.51 He has comorbidit y of his diabetes and his peripheral vascular disease [id number] MD MARCELINO Krishnamurthy [facility] [address] [place] [address] 08/24/2020 09:44:54 08/24/2020 11:11:37 Adult health examination 862711170 Z00.00 Annual Wellness Visit done today Uncontrol ed type 2 diabetes mellitus 236920884 E11.65 Patient sugars are running pretty much all over the place we need to get an A1c because his last A1c was 8.4. For now we will get and try to bring his postprandi al sugars down a little better by increasing his Jardiance from 10-25. 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 We went over his vitamins and his vaccines he is very reliable and does proximal this good preventati ve care Body mass index 30+ - obesity 594383502 Z68.39 weight issues discussed and informatio n on weight loss given. Needs follow up on weight control as scheduled. Education handout on diets given. Exercise counseling done. Will arrange referral for dietitian, nutritioni st, Physical/o ccupationa l therapy as needed or desired. Also will consider pharmaceut ical and supplement al interventi ons bmi 39.1 Obesity 075626042 E66.9 see BMI above for details Diet education 13400983 Z71.3 as above he is weight has not changed he is very stable he does watch what he eats but he just eats more than he should Influenza vaccine needed 2511633559 106 Z23 Today we are giving his flu shot to him Essential hypertension 89948691 I10 E78.2 His blood pressure is stable he is monitoring his pressure blood pressures are acceptable his blood pressure is well controlled his medicines include for blood pressure hydrochlor othiazide 12.5. He also takes metoprolol 25 tartrate twice daily [id number] Edgar Ramos MD [facility] [address] [place] [address] 04/08/2021 08:33:32 04/09/2021 11:36:28 Administration of pneumococcal vaccine 61386095 Z23 [id number] Edgar Ramos MD [facility] [address] [place] [address] 05/04/2021 15:10:55 05/04/2021 16:39:46 Adult health examination 287644009 Z00.00 Annual Wellness Visit done today we did go over preventati ve measures vitamins to vaccines and the like Essential hypertension 15102134 I10 E78.2 His blood pressure is 126/84 his blood pressure medicine includes hydrochlor othiazide 12.5 and metoprolol tartrate 25 twice daily Restless legs 21571923 G 25.81 We did give him instructio ns regarding restless leg syndrome Type 2 isaias betes mellitus with peripheral angiopathy 545488009 E11.51 His A1c is still higher than I like but I cannot drive his basal sugar down too much or he will get hypoglycem ic Body mass index 40+ - severely obese 300296402 Z68.41 His BMI has not really changed over time 38.9 BMI he continues to say he is working on the diet but so far has not been with result [id number] Edgar Ramos MD [facility] [address] [place] [address] 06/17/2021 14:50:58 06/17/2021 15:33:36 Uncontrolled type 2 diabetes mellitus 955560966 E11.65 Patient sugars are running pretty much all over the place we need to get an A1c because his last A1c was 8.4. For now we will get and try to bring his postprandi al sugars down a little better by increasing his Jardiance from 10-25. Were going to check his laboratory today. Diabetes is under control Essential hypertension 90446959 I10 E78.2 His blood pressure is 126/84 his blood pressure medicine includes hydrochlor othiazide 12.5 and metoprolol tartrate 25 twice daily blood pressure today 150/78 Diabetic p eripheral neuropathy 904534546 E11.40 Sensations are decreased monofilame nt is positive for both feet of the toes and the forefoot other than that he can feel [id number] Edgar Ramos MD [facility] [address] [place] [address] 08/12/2021 13:26:43 08/12/2021 14:21:28 Disorder of thyroid gland 54979487 E07.9 Patient has hypothyroi dism he takes thyroid medicine. His status is stable we will get a check his T SH and free T4 Psoriasis 3698465 L40.9 Psoriasis is stable at this point he is not changing medicine at all Type 2 isaias betes mellitus 13215221 E11.21 This sugar will be watched his [...] status is stable and improving Tinea pedis 6888054 B35. 3 This patient is still using about every 10 to 12 days a treatment with Nizoral shampoo and is working beautifull y for him.. His tinea pedis has stabilized and is doing well Dizziness 492936612 R42 The patient is dizziness status is getting worse he is much more wobbly he does not know the cause of it were going to give him closing Essential hypertension 20427528 I10 E78.2 His blood pressure is 126/84 his blood pressure medicine includes hydrochlor othiazide 12.5 and metoprolol tartrate 25 twice daily blood pressure today Body mass index 30+ - obesity 864505235 Z68.39 weight issues discussed and informatio n on weight loss given. Needs follow up on weight control as scheduled. Education handout on diets given. Exercise counseling done. Will arrange referral for dietitian, nutritioni st, Physical/o ccupationa l therapy as needed or desired. Also will consider pharmaceut ical and supplement al interventi ons Obesity 312385247 E66.9 see BMI above for details Diet education 37772292 Z71.3 as above trial. The patient's blood [...] things he has not changed too much [id number] Edgar Ramos MD [facility] [address] [place] [address] 09/09/2021 14:17:08 09/09/2021 15:21:43 Disorder of thyroid gland 09700084 E07.9 Patient has hypothyroi dism he takes thyroid medicine. His status is stable we will get a check his T SH and free T4 he has hypothyroi dism and is stable presently he is.. All 25 mcg of Levothroid Type 2 isaias betes mellitus 62824758 E11.21 This sugar will be watched his [...] problem Body mass index 30+ - obesity 364882602 Z68.38 weight issues discussed and informatio n [...] on at present he is 38.9 Obesity 495007962 E66.9 see BMI above for details he is going to try to watch his starches little bit become a little bit of a vegetable eater Diet education 95154924 Z71.3 as above I wish him luck in the diet at I do not want a supplement in with an appetite suppressan t certainly Essential hypertension 42650730 I10 E78.2 His blood pressure is 126/84 his blood pressure medicine includes hydrochlor othiazide 12.5 and metoprolol tartrate 25 twice daily blood pressure today. His blood pressure is stable Dizziness 939772995 R42 The patient is dizziness status is getting worse he is much more wobbly he does not know the cause of it were going to give him closing. 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 he did a little better with meclizine but he had some side effects he said which he did not like [id number] Edgar Ramos MD [facility] [address] [place] [address] 04/20/2022 11:13:45 04/20/2022 12:54:50 Type 2 diabetes mellitus 23124325 E11.21 This sugar will be watched his [...] sick but better now Wound of skin 014268840 T14.8XXA status is controlled he has a wound that is scant he needs to be seen by home health wound care and physical therapySta brittny is not good right now his wound is open and draining but it does not look purulent too badly Peripheral vascular disease 956589413 I73.9 I am hoping to keep his [...] 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 377556784 L40.51 He does have psoriatic arthritic changes that are stable right nowThe psoriatic arthritis continues to plague him but he is stable and has been little change Morbid obesity 146596952 E66.01 I hope he can continue to lose weight Body mass index 30+ - obesity 816854349 Z68.38 weight issues discussed and informatio n [...] is come down a little bit Thrombophilia 599957439 D68.69 He takes anticoagul ation his blood count is affected little bit by that it is stable Essential hypertension 37142831 I10 His blood pressure is 126/84 his [...] the rate is controlled it is stable [id number] MD MARCELINO Krishnamurthy [address] [place] [address] 05/20/2022 08:50:08 05/20/2022 09:47:30 Wound of skin 973249625 T14.8XXA His wounds on his leg are improving he is seeing wound management Status is improving wounds are healing Uncontroll ed type 2 diabetes mellitus 441016666 E11.65 Patient sugars are running pretty much [...] of his diabetes is improved Muscle weakness 94176336 M62.81 He has muscle weakness and he needs physical therapy to work with gait strength balance coordinati on and coreStatus is not where it should be right now but withWe are going to set him up with physical therapy as an outpatient as opposed to coming to his home Chronic ki dney disease stage 3B 981165208 N18.32 Patient's creatinine has been elevated slightlyHi s creatinine went from 1.5-2.0 we need to have a stay hydrated we will watch this closelyStnoe mart has deteriorat ed Type 2 isaias betes mellitus without complication 258072422 E11.9 His A1c went from 8.5-11We will check this in 6 weeks at which point we may need to start insulinI think he would do very well with mounjaroWe will see how the cost works and when he can do [id number] MD MARCELINO Krishnamruthy [address] [place] [address] 06/15/2022 13:33:21 06/15/2022 14:31:55 Wound of skin 629641688 T14.8XXA His wounds on his leg are improving he is seeing wound management Status is improving wounds are healing Osteoarthritis 264831723 M19.90 Uncontroll ed type 2 diabetes mellitus 439556484 E11.65 Patient sugars are running pretty much [...] PT GIVEN TOUJEO SAMPLE (300 UNITS/ML)L OT# [id number]: 03-18-2023 His diabetes is not controlled he [...] but it will be Immunodefi ciency disorder 923384837 D84.81 Due to his diabetes and peripheral vascular disease and age his immune system is fragile and he gets infections more easily also based on history he has been slow to heal and the lower extremitie s because of peripheral vascular disease that is the cause of his immune problem in his legs Morbid obesity 849928521 E66.01 I hope he can continue to lose weightPati ent has morbid obesity he did come down a weight is higher he now is 33.9 it is start Body mass index 30+ - obesity 838283009 Z68.35 weight issues discussed and informatio n [...] 38-33 status is not moving Essential hypertension 38639934 I10 His blood pressure is 126/84 his [...] 25 1 twice daily of tartrate Thrombophilia 486738695 D68.69 He takes anticoagul ation his blood count is affected little bit by that it is stableIs thrombophi lias because of his blood thinner it is stable [id number] Edgar Ramos MD [facility] [address] [place] [address] 06/24/2022 09:05:01 06/24/2022 10:31:15 Type 2 diabetes mellitus without complication 315793015 E11.9 Patient's sugar is improving slightly he is between 150 and 200Present ly he is on 6 units of Toujeo. It is actually 3 clicks because each click is 2 unitsStatu s is improving Vertigo 402075445 R42 At this point his status of the vertigo is ongoing and not improvedAt this point I would have him try valacyclov ir 500 once a day Idiopathic peripheral neuropathy 71714251 G60.9 With his peripheral neuropathy I think he would do fine to start thiamine B1 500 mgIn the form OF BENFOTIAMI NEHis status is not controlled yetFor physical therapy has helped him Peripheral vascular disease 658974255 I73.9 I am hoping to keep his [...] system is affected as well Morbid obesity 434997889 E66.01 I hope he can continue to lose weightPati ent has morbid obesity he did come down a weight is higher he now is 33.9 it is startHis weight is been coming down I am pleased that he is trying and working out it status is improving 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 520861553 L40.51 He does have psoriatic arthritic changes that are stable right nowThe psoriatic arthritis continues to plague him but he is stable and has been little change Thrombophilia 707611588 D68.69 He takes anticoagul ation his blood [...] well Chronic ki dney disease stage 3B 706789039 N18.32 Patient's creatinine has been elevated slightlyHi s creatinine went from 1.5-2.0 we need to have a stay hydrated we will watch this closelySta tus has deteriorat edHe has not gotten worse he stays hydrated he is stable 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 mellitus 3084210877 93696 E11.65 His hyperglyce jamie is improved with the use of his recent insulin Immunodefi ciency disorder 795627387 D84.81 He has immune deficiency disorder we will watch him status is not controlled at the present timeHe will watch for infection particular ly his legs which are slow to heal [id number] MD MARCELINO Krishnamurthy [address] [place], [place] [address] 08/18/2022 09:01:42 08/18/2022 10:05:03 Uncontrolled type 2 diabetes mellitus 795125945 E11.65 His sugars are not controlled at the present time he is still running above 150 fasting most of the time I think he was confused about how to control his sliding scaleSo we went over that again he is watching his diet his weight has come down somewhat about 40 pounds which is quite good Essential hypertension 97509227 I10 Pressure is 128/70 he seems status [...] daily and is stable without his Fatigue 02453673 R53.83 His fatigue is ongoing I think is from deconditio ron. He may have some prostatiti s a PSA would be appropriat e for that reason even though it seems farfetched is status is stable [id number] MD MARCELINO Krishnamurthy [place] [address] [place] [address] 10/10/2022 14:59:02 10/10/2022 16:32:15 Uncontrolled type 2 diabetes mellitus 984421448 E11.65 His sugars are not controlled at [...] be greatStatu s is improving Restless legs 54849802 G 25.81 We did give him instructio ns regarding restless leg syndromeHi s restless legs are stable they are improving Gout 84690184 M10.9 He needs a renewal of his medication s todayHe has not had any gout gout flareups or problems with gout since he has been on allopurino l.He appears more stable Essential hypertension 49760250 I10 Pressure is 128/70 he seems status [...] of the pressure is improved and stable [id number] Edgar Ramos MD [facility] [address] [place] [address] 06/26/2023 15:00:29 06/26/2023 16:33:28 Hyperglycemia 79959188 R73.9 Sugar is elevated he is stable Vitamin D deficiency 347 56524 E55.9 Vitamin D is stable he has neuropathy is stable Osteoarthritis 566676632 M19.90 Hydrochlor othiazide his arthritis is stable Atrial fibrillation 4943 6004 I48.91 He had atrial fibrillati on. He still suffers from takes his anticoagul ation the rate is controlled it is stablePati ent is status is improved and doing well Chronic ki dney disease stage 3B 752639707 N18.32 Patient's creatinine has been elevated slightlyHi s creatinine went from 1.5-2.0 we need to have a stay hydrated we will watch this closelySta tus has deteriorat edHe has not gotten worse he stays hydrated he is stableHe stays hydrated he was sick had to be [place] in [facility] down to [facility] and then to [place] where he was hospitaliz ed with dehydratio n and electrolyt e imbalance he is now better this was several months agoHis kidney had gotten worse at 2.3 creatinine now which improved we will check it Dizziness 223912039 R42 The patient is dizziness status is [...] PLUSHe is not stable at present Gout 96984511 M10.9 He needs a renewal of his medication s todayHe has not had any gout gout flareups or problems with gout since he has been on allopurino l.He appears more stable Uncontroll ed type 2 diabetes mellitus 318620477 E11.65 His sugars are not controlled at [...] improving. We will check his A1c Thrombophilia 326863189 D68.69 He takes anticoagul ation his blood count is affected little bit by that it is stableIs thrombophi lias because of his blood thinner it is stableHis anticoagul ation is affecting his platelet agglutinin patient status is stable Morbid obesity 965757292 E66.01 I hope he can continue to lose weightPati ent has morbid obesity he did come down a weight is higher he now is 33.9 it is startHis weight is been coming down I am pleased that he is trying and working out it status is improving his weight has come down little bit Idiopathic peripheral neuropathy 77685667 G60.9 With his peripheral neuropathy I think he would do fine to start thiamine B1 500 mgIn the form OF BENFOTIAMI NEHis status is not controlled yetFor physical therapy has helped himHe will continue his vitamin Essential hypertension 39894441 I10 Pressure is 128/70 he seems status [...] improved and stable Gastroesop hageal reflux disease 711339445 K21.9 His GERD is controlled with pantoprazo le he knows when to take it it is stable Restless legs 29971853 G 25.81 We did give him instructio ns regarding restless leg syndromeHi s restless legs are stable they are improving status is improved and stable Allergic rhinitis 231890 04 J30.9 His allergies are controlled with Claritin and montelukas t Hypothyroidism 97426279 E03.9 He takes his thyroid medicine we will check the TSH it is stable 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 827295018 L40.51 His psoriasis continues but it is stable 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 2811841107 08 E11.22 His kidney function has bounced up is not where it was is not stable yet we will recheck it Immunodefi ciency disorder 396857669 D84.81 His immune deficiency is stable Type 2 isaias betes mellitus with peripheral angiopathy 603975488 E11.51 His peripheral angiopathy is improved Heart failure 93382712 I 50.9 His heart failure has improved his medicines have helped in particular the Jardiance it is stabilized [id number] MD MARCELINO Krishnamurthy [address] [place] [address] 07/27/2023 10:21:43 07/27/2023 11:29:54 Cellulitis of toe of right foot 3030536647 2073398 L03.031 His toe looks quite nasty bleeding [...] disorder due to type 2 diabetes mellitus 181491445 E11.51 He has severe peripheral diminished blood flow dorsalis pedis and posterior tibialis both sides is low his diabetes is the cause. His status is getting worse I think he might need an amputation before this is done Peripheral vascular disease 450060655 I73.9 Patient has peripheral vascular disease with decreased dorsalis pedis and posterior tibialisSt atus is getting worse not healing swollen [id number] Edgar Ramos MD [facility] [address] [place] [address] 09/07/2023 07:43:28 09/07/2023 08:26:05 Chronic kidney disease stage 3B 720041229 N18.32 Patient's creatinine has been elevated slightlyHi s creatinine went from 1.5-2.0 we need to have a stay hydrated we will watch this closelySta brittny has deteriorat edHe has not gotten worse he stays hydrated he is stableHe stays hydrated he was sick had to be [place] in [facility] down to [facility] and then to [place] where he was hospitaliz ed with dehydratio n and electrolyt e imbalance he is now better this was several months agoHis kidney had gotten worse at 2.3 creatinine now which improved we will check itHis microalbum in is 2400His A1c is 11 Uncontroll ed type 2 diabetes mellitus 256909106 E11.65 His sugars are not controlled at [...] his A-fib but the rate is controlled [id number] Edgar Ramos MD [facility] [place] [address] [place] [address] 04/25/2024 13:14:48 04/25/2024 15:07:47 Counseling 252652148 Z71.9 Patient received [facility] Value Based Patient Guide today. 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 759490028 I83.013 His varicose veins have improved since he lost weight Chronic ul cer of ankle 444546193 L97.319 He has got chronic ulcer in his ankle which is improving 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 Chronic ulcer of foot 42 0482515 L97.509 His ankle ulcer is healed Chronic ul cer of skin of lower leg 7567176828 7798527 L97.822 Chronic ulcer of foot 42 9017064 L97.511 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 The atheroscle rosis lower extremitie s good Hyperlipidemia 21374151 E78.5 Hyperlipid emia has improved with weight loss Health Concerns Section Related Observation LastModified by Organization Detai ls LastModified Time None Recorded Concern Status LastModified by Organization Details LastModified Time None Recorded Advance Directives Directive Y: Payers Insurance Date Sequence Insurance Name Policy Number Policy Del Toro Covered Member ID Del Toro Member ID Guarantor Name 05/24/2024 2 [employer] (MEDICARE SUPPLEMENT) Richard Black [id number] Richard Black 05/24/2024 1 [place] Richard Noe Wayne [id number] Richard Black Notes Date Note Type [...] we might be okay [facility] with a high fever on 10/23/2021 he was in for 6 daysIt was hard to figure out what happened but they gave him some antibiotic then he was shipped to [facility] in [place] he was there for 4 days while [...] the shuffling of the care up in [place] and by [place] as well So he [...] his ambulation is better Today is a jtgp-by-wvzp meeting for that in the office Edgar Ramos MD [address] [address], [place], [address], [facility] - [facility], [facility] 10/11/2022 08:02:53 4 text/html ANNUAL WELLNESS VISIT [...] No or Minimal depression, (0). Imported from [place] on 4Patient has numerous things to go over yesterday reportedHe is going to have surgery with Dr. Barbara Chaudhari [facility] on tramadolHe presently has [...] we might be okay [facility] went to the hospital with a high fever on 10/23/2021 he was in for 6 daysIt was hard to figure out what happened but they gave him some antibiotic then he was shipped to [facility] in [place] he was there for 4 days while [...] the shuffling of the care up in [place] and [place] [facility] as well So he has a lot [...] his ambulation is better Today is a xllb-mv-saxp meeting for that in the office Edgar Ramos MD [address] [address], [place], [address], [facility] 06/27/2023 10:03:14 4 text/html The patient sees [...] metatarsal area [facility] his refill on tramadolHe presently has [...] we might be okay [facility] went to [facility] hospital with a high fever on 10/23/2021 he was in for 6 daysIt was hard to figure out what happened but they gave him some antibiotic then he was shipped to [facility] in [place] he was there for 4 days while [...] the shuffling of the care up in [place] and by [place] and [facility] as well So he has a lot [...] his ambulation is better Today is a swrx-xs-wrib meeting for that in the office Edgar Ramos MD [address] [address], [place], [address], [facility], [facility] 07/30/2023 13:54:29 4 text/html Patient comes in [...] metatarsal area [facility] his refill on tramadolHe presently has [...] we might be okay [facility] went to the hospital with a high fever on 10/23/2021 he was in for 6 daysIt was hard to figure out what happened but they gave him some antibiotic then he was shipped to [facility] in [place] he was there for 4 days while [...] the shuffling of the care up in [place] and by [place] as well So he [...] his ambulation is better Today is a jput-yl-estf meeting for that in the office Edgar Ramos MD [address] [address], [place], [address], [facility], [facility] 09/07/2023 09:02:11 4 text/html It is a [...] many people This patient came down [facility] he came down to his manufactured [...] time to start insulin [facility] went to the hospital with a high fever on 10/23/2021 he was in for 6 daysIt was hard to figure out what happened but they gave him some antibiotic then he was shipped to [facility] in [place] he was there for 4 days while [...] the shuffling of the care up in [place] and by [place] as well So he [...] his ambulation is better Today is a yteu-rd-lqfg meeting for that in the office QUALITY MEASURE QUESTIONNAIRE PRAPARE Screening Patient declined PRAPARE Screener 04/25/2024 Imported from [facility] on 04/25/2024 Edgar Ramos MD [address] [address], [place], [address], [facility], [facility] 04/27/2024 13:58:14
--- OUTSIDE RECORDS SUMMARY | 2024-12-11 10:53 | XMS_ITS | Clinical Summary ---
[facility] Address [id number] [address] [place] [address] Care Team Providers Care Auto Top Mechanic Name Role Phone Unavailable Primary Care Provider [...] mouth daily as needed for allergies. Active jdbzyjdd-tkfk-ZS-ca lcium &mins (THERAGRAN-M) 9 mg iron-400 mcg [...] Office Visit [facility] [address] [place] [address] Willian Shaikh MD Critical limb ischemia [...] Not on file Insurance MEDICARE [facility] Advance Directives * Full Code (Latest Code Status on File) Date Activated Date Inactivated Comments 02/27/2023 9:26 PM 02/28/2023 1:55 PM
--- OUTSIDE RECORDS SUMMARY | 2024-12-11 10:53 | XMS_ITS | Continuity of Care Document ---
Author Organization [facility] Address [address] [address] [place] [address] Phone [phone] Care Team Providers Care Automotive Window Tinter Name Role Phone . DOCTOR FORMS, COPIES INTEREST Care Team Inform ation Message Broker Developer Unavailable
--- NOTE | 2024-12-11 11:02 | XR_ITS ---
The [address] [address] Patient Name: GENNY BOYKIN MRN: [id number] date: 1940 Sex: M Assigned Patient Location: [facility] Current Patient Location: [facility] Accession/Order Number: [id number] Exam Date: 12/11/2024 11:49 Report Date: 12/11/2024 11:55 At the request of: YURI HUGHES DPAngus Procedure: XR foot RT min 3V RIGHT FOOT - 3 views CLINICAL DATA: Right foot pain and ulcer at the fourth toe for the past 2 weeks. COMPARISON: None Weight-bearing AP, lateral and oblique views were obtained. A marker was placed at the site of clinical concern. The bony structures are osteopenic. Postoperative changes are again suspected at the distal interphalangeal joint of the third toe. There is interval change in appearance of the distal aspect of the middle phalanx of the second toe. It is uncertain if this is also potentially postoperative or related to interval fracture. Correlation is recommended given the limited history. No other acute fractures, dislocation or bony destruction are noted. Scattered degenerative changes are present, greatest at the first metatarsal phalangeal joint that the dorsum of the tarsals. A plantar calcaneal spur is partially imaged on the lateral view. No prominent soft tissue swelling is seen. There is atherosclerotic disease. XR/XR foot RT min 3V IMPRESSION: OSTEOPENIA WITH SUSPECTED POSTOPERATIVE AND DEGENERATIVE CHANGES. NO DEFINITE ACUTE BONY FINDINGS. Impression dictated by: Allison Reilly M.D. 12/11/2024 11:55 AM Dictation Location: [address] [address] Electronically authenticated by: [id number] Y Date: 12/11/2024 11:55
== END 2024-12-11 10:47 | disposition home or self-care (01) ==
LOC: RAD 10:50
PROVIDERS: PCP Family Medicine; Visit Provider Podiatrist Foot & Ankle Surgery
DX: M79.671 Pain in right foot (principal); L97.519 Non-pressure chronic ulcer of other part of right foot with unspecified severity; M85.871 Other specified disorders of bone density and structure, right ankle and foot
CPT/HCPCS: 73630

== ENCOUNTER 2024-12-11 10:55 | Outpatient (OUT) | payer MEDICARE, SELFPAY ==
--- OUTSIDE RECORDS SUMMARY | 2024-12-11 10:58 | XMS_ITS | Continuity of Care Document ---
Author Organization [facility] Address [address] [address] [place] [address] Phone [phone] Care Team Providers Care Senior Software Engineer Name Role Phone . DOCTOR FORMS, COPIES INTEREST Care Team Inform ation Industrial Electrical Technician Unavailable
[2024-12-11 11:41] LABS: Basophils Percent Auto 0.3 % (0.2-2.0); Eosinophils Absolute Auto 0.4 10^3/uL (0.0-0.7); Eosinophils Percent Auto 4.9 % (0.9-7.0); Hematocrit 41.9 % (42.0-54.0); Hemoglobin 13.9 g/dL (14.0-18.0); Immature Granulocytes Abs Auto 0.02 10^3/uL (0.00-0.03); Immature Granulocytes Pct Auto 0.3 % (0.0-0.5); Lymphocytes Absolute Auto 1.3 10^3/uL (1.2-3.8); Lymphocytes Percent Auto 17.6 % (20.5-60.0); Mean Corpuscular HGB Conc 33.2 g/dL (29.9-35.2); Mean Corpuscular Hemoglobin 31.6 pg (25.9-34.0); Mean Corpuscular Volume 95.2 fL (80.0-94.0); Mean Platelet Volume 10.5 fL (9.5-13.5); Monocytes Absolute Auto 0.7 10^3/uL (0.3-0.8); Monocytes Percent Auto 9.5 % (1.7-12.0); Neutrophils Absolute Auto 4.9 10^3/uL (1.4-6.5); Neutrophils Percent Auto 67.4 % (43.0-75.0); Platelet Count 211 10^3/uL (150-450); Red Cell Distribution Width 15.2 % (11.0-15.0); White Blood Count 7.3 10^3/uL (4.0-11.0)
[2024-12-11 11:47] LABS: Erythrocyte Sedimentation Rate 27 mm/hr (<=20)
[2024-12-11 11:58] LABS: Anion Gap 9.2; BUN Creatinine Ratio 24.8; C Reactive Protein <0.50 mg/dL (<=0.50); Calcium 8.9 mg/dL (8.5-10.1); Carbon Dioxide 32.4 mmol/L (21.0-32.0); Chloride 102 mmol/L (98-107); Estimated GFR (African America 30 (>=60 mL/min/1.73m^2); Estimated GFR (Non-African Ame 25 (>=60 mL/min/1.73m^2); Glucose 262 mg/dL (74-106); Potassium 4.6 mmol/L (3.5-5.1); Sodium 139 mmol/L (136-145)
== END 2024-12-11 10:56 | disposition home or self-care (01) ==
LOC: LAB 10:56
PROVIDERS: PCP Family Medicine; Visit Provider Physician Assistant
DX: L97.518 Non-pressure chronic ulcer of other part of right foot with other specified severity (principal)
CPT/HCPCS: 36415; 80048; 85025; 85652; 86140; 87070; 87075; 87077; 87186; 87205

== ENCOUNTER 2024-12-11 13:50 | Outpatient (OUT) | payer MEDICARE, SELFPAY ==
--- OUTSIDE RECORDS SUMMARY | 2024-12-11 13:53 | XMS_ITS | Continuity of Care Document ---
Author Organization [facility] Address [address] [address] [place] [address] Phone [phone] Care Team Providers Care Customer Program Manager Name Role Phone . DOCTOR FORMS, COPIES INTEREST Care Team Inform ation Chief Human Resources Officer Unavailable
--- OUTSIDE RECORDS SUMMARY | 2024-12-11 13:53 | XMS_ITS | Clinical Summary ---
Author Organization [facility] Address [id number] [address] [place] [address] Care Team Providers Care Fork Lift Mechanic Name Role Phone Unavailable Primary Care [...] mouth daily as needed for allergies. 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
== END 2024-12-11 13:51 | disposition home or self-care (01) ==
LOC: WC 13:50
PROVIDERS: PCP Family Medicine; Visit Provider Physician Assistant
DX: M79.671 Pain in right foot (principal); L97.519 Non-pressure chronic ulcer of other part of right foot with unspecified severity; M85.871 Other specified disorders of bone density and structure, right ankle and foot; E11.621 Type 2 diabetes mellitus with foot ulcer; L97.512 Non-pressure chronic ulcer of other part of right foot with fat layer exposed; L97.511 Non-pressure chronic ulcer of other part of right foot limited to breakdown of skin; L97.514 Non-pressure chronic ulcer of other part of right foot with necrosis of bone
CPT/HCPCS: 73630; G0463

== ENCOUNTER 2024-12-18 11:40 | Outpatient (OUT) | payer MEDICARE, SELFPAY ==
--- OUTSIDE RECORDS SUMMARY | 2007-08-22 03:53 | XMS_ITS | Continuity of Care Document ---
Author Organization [facility] Address 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 [address] [place] [address], [id number], [place]. tel:[phone] Referring Provider: Jama Zamora MD, [address] [place] [address], [facility]. tel:[phone] Family History Family Member Type Diagnosis Age At Onset No Information Payers Payer name Insurance type Covered constitution party ID Authoriza tion(s) Medicare [facility] [id number] Medical [facility] [id number] Social History Type Description Quantity Date Captured [...]
--- OUTSIDE RECORDS SUMMARY | 2023-07-03 10:20 | XMS_ITS ---
Author Organization [facility] Billing Info Address [address] [place] [address] [place] [address] Care Team Providers Care Perinatology Physician Name Role Phone GINNA BARRETO Unavailable [phone] GINNA BARRETO M.D. Unavailable Unavailable Allergies No [...] day Not-Taking Multivitamin Not-Mike ing CO-Q 10 [place]-3 Fish Oil Not-Taking Aspirin 325 MG 1 [...] 07/03/2023 Encounters Encounter Location Date Provider Diagnosis [id number] [address] [place] [address] [id number] 07/03/2023 GINNA BARRETO Lumbosacral spondylosis without myelopathy [...] L5-S1.. Benefit with tramadol. Physical therapy in [place] in summer 2015 and summer 2016. Prior [...] 2021. Possible tendon/ligament injury. Orthopedic evaluation in [place]-recommended against surgery labs from 03/26/2022: Serum creatinine [...] * Richard BOYKINDOB:1940 ([age] yo M)Acc No.[id number]:07/03/2023 PROGRESS NOTE Patient: Richard MATHEWS Provider: Kumar BARRETO MD :1940 A ge:83 Y S ex:Male Date:07/03/2023 C #:[id number] Address:[address] [place] [address] [id number] Subjective: * Chief Complaints: * F ollow-up [...] [facility] * Family History: [...] MG Capsule 2 Orally Daily CO-Q 10 [place]-3 Fish Oil Colchicine 0.6 MG Tablet 1 [...] Capsule 2 Orally Daily Not-Taking CO-Q 10 [place]-3 Fish Oil Not-Taking Colchicine 0.6 MG Tablet 1 tablet Orally [...] L5-S1.. Benefit with tramadol. Physical therapy in [place] in summer 2015 and summer 2016. Prior [...] 2021. Possible tendon/ligament injury. Orthopedic evaluation in [place]-recommended against surgery 5 . P rimary osteoarthritis [...] visit * Procedure Codes: * Preventive Medicine: [place] PAF (Patient Assessment Form): F all Risk [...] 07/03/2023 Generated for Kristi torres/Stephanie/Jimitting on: 0 12/18/2024 11:43 AM EDT History and Physical Notes * HPI [...]
--- OUTSIDE RECORDS SUMMARY | 2023-08-28 10:20 | XMS_ITS ---
Author Organization [facility] Billing Info Address [address] [place] [address] [place] [address] Care Team Providers Care Electrolysis Operator Name Role Phone GINNA BARRETO Unavailable [phone] GINNA BARRETO M.D. Unavailable Unavailable Allergies No Known Allergies REASON FOR VISIT follow-up for gout, chronic arthritic issues Medications Medication SIG (Take, Route, Frequency, Duration) Notes Start Date End Date Status Aspirin 325 MG 1 tablet Orally Once a day Not-Taking Tylenol Extra Strength 500 MG 1 tablets as needed Orally every 6 hrs Not-Taking Colchicine 0.6 MG 1 tablet Orally Once a day for 30 day(s) prn Not-Taking Allopurinol 300 MG 1 tablet Orally Once a day Active Cinnamon 500 MG 2 Orally Daily Not-Taking CO-Q 10 [place]-3 Fish Oil Not-Taking Fluticasone Propionate Not-Taking Fish Oil 1000 MG 1 capsule Orally Once a day Not-Taking Multivitamin Not-Mike ing Pravastatin Sodium 40 MG 1 tablet Orally Once a day Not-Taking Singulair 10 MG 1 tablet in the evening Orally Once a day Not-Taking Atorvastatin Calcium 80 MG 1 tablet Oral ly Once a day for 30 day(s) Not-Taking Furosemide 40 MG 1 tablet Orally BID Not-Taking Hydrochlorothiazide 12.5 MG 1 capsule Or ally Once a day Active Tylenol 8 Hour 650 MG 2 tablets as neede d Orally every 8 hrs Not-Taking B-12 5000 MCG 1 tablet Orally Once a day Active Claritin 10 MG 1 tablet Orally Once a day for 30 day(s) Active Levothyroxine Sodium 50 MCG 1 tablet on an empty stomach in the morning Orally Once a day Active Jardiance 25 MG 1 tablet Orally Once a day Active Amlodipine Besylate 2.5 MG 1 tablet Oral ly Once a day for 30 day(s) Active Ropinirole HCl 2 MG 1 tablet Orally Once a day Active Glimepiride 4 MG 1 tablet with breakfast or the first main meal of the day Orally BID Active Metoprolol Tartrate 25 MG 1 tablet orally BID Active Eliquis 5 MG 1/2 tablet Orally Twice a day for 30 days Active Aspirin 81 MG 1 tablet Orally Once a day for 30 day(s) Active Pioglitazone HCl 45 MG 1 tablet Orally O nce a day for 30 day(s) Active Lisinopril 2.5 MG 1 tablet Orally Once a day Active Acetaminophen 500 MG 1 tablet as needed Orally every 4-6 hrs Active Toujeo SoloStar 300 UNIT/ML as directed Subcutaneous Active Pantoprazole Sodium 40 MG 1 tablet Orall y Once a day for 30 day(s) Active Ultram 50 MG 2 tablet as needed Orally QID 08/23/2021 Active Doxycycline Hyclate 100 MG 1 capsule Ora lly Once a day Not-Taking Ciprofloxacin HCl 500 MG 1 tablet Orally every 12 hrs Not-Taking Montelukast Sodium 10 MG 1 tablet Orally Once a day Active Social History Tobacco Status: Question Answer Notes Patient is a non tobacco user Problems Problem Type SNOMED Code ICD Code Onset Dates Problem Status W/U Status Risk Notes Problem [id number] Carpal tunnel syndrome on left (G56.02) Active confirmed utilizing carpal tunnel bracing at night Vital Signs Height 71 in 08/28/2023 Weight 236.0 lbs 08/28/2023 BMI 32.91 kg/m2 08/28/2023 Blood pressure systolic 115 mm Hg 08/28/19 24 Blood pressure diastolic 73 mm Hg 024 Heart Rate 84 /min 08/28/2023 Respiratory Rate 17 /min 08/28/2023 Oximetry 95 08/28/2023 Encounters Encounter Location Date Provider Diagnosis [id number] [address] [place] [address] [id number] 08/28/2023 GINNA BARRETO Lumbosacral spondylosis without myelopathy M47.817 ; Chronic gouty arthritis M1A.00X0 ; Carpal tunnel syndrome on left G56.02 ; Flexion deformity of finger joint of right hand M21.241 ; Primary osteoarthritis of knees, bilateral M17.0 ; Psoriatic arthritis L40.50 ; Localized primary osteoarthritis of both hands M19.041 ; Primary osteoarthritis of feet, bilateral M19.071 and Encounter for long-term (current) use of other medications Z79.899 Assessments Encounter Date Diagnosis (ICD Code) Assessment Notes Treatment Notes Treatment Clinical Notes Section Notes 08/28/2023 Lumbosacral spondylosis without myelopathy (ICD-10 - M47.817) MRI of the lumbar spine from 07/27/2016 showed multilevel DDD/DJD changes with severe spinal stenosis at L2-3 through L5-S1 and biforaminal stenosis L2-3 to L5-S1.. Benefit with tramadol. Physical therapy in [place] in summer 2015 and summer 2016. Prior acupuncture treatments-question able benefit. Benefit with chiropractic treatments and Ultram. Current benefit with physical therapy doing well with physical therapy activities. Patient will continue to use a wheeled walker to limit falls risk. He has been on tramadol through primary care labs from 03/26/2022: Serum creatinine increased at 2.27 with BUN of 48, calcium 9.6, pro BMP normal at 629 Reviewed labs from 07/07/2023: Serum creatinine 2.22, calcium 9.0, albumin 3.5, white blood cell count 7.6, hematocrit 43.4, hemoglobin A1c increased at 11.1%, vitamin-D 35.4 08/28/2023 Chronic gouty arthritis (ICD-10 - M1A.00X0) History of gouty arthropathy with flares involving the feet predominantly. Diagnosis is not crystal proven. No history of tophi. On allopurinol-at goal uric acid on the last labs. Prior treatment with Colcrys (diarrhea). Plan:- reviewed blood work done since last visit. Patient has chronic renal insufficiency which is stable. Patient will continue to avoid nonsteroidal anti-inflammato bhupendra. Unfortunately uric acid was not checked with labs. - Patient will continue on his current regimen of allopurinol.- Labs: Patient was encouraged to have his providers in [place] check uric acid periodically- Continue to monitor labs on a regular basis to monitor for any drug related toxicity.- Patient will contact me for any questions or concerns prior to scheduled follow-up labs from 03/26/2022: Serum creatinine increased at 2.27 with BUN of 48, calcium 9.6, pro BMP normal at 629 Reviewed labs from 07/07/2023: Serum creatinine 2.22, calcium 9.0, albumin 3.5, white blood cell count 7.6, hematocrit 43.4, hemoglobin A1c increased at 11.1%, vitamin-D 35.4 08/28/2023 Carpal tunnel syndrome on left (ICD-10 - G56.02) utilizing carpal tunnel bracing at night labs from 03/26/2022: Serum creatinine increased at 2.27 with BUN of 48, calcium 9.6, pro BMP normal at 629 Reviewed labs from 07/07/2023: Serum creatinine 2.22, calcium 9.0, albumin 3.5, white blood cell count 7.6, hematocrit 43.4, hemoglobin A1c increased at 11.1%, vitamin-D 35.4 08/28/2023 Flexion deformity of finger joint of right hand (ICD-10 - M21.241) Injury in May 2021. Possible tendon/ligament injury. Orthopedic evaluation in [place]-recommended against surgery labs from 03/26/2022: Serum creatinine increased at 2.27 with BUN of 48, calcium 9.6, pro BMP normal at 629 Reviewed labs from 07/07/2023: Serum creatinine 2.22, calcium 9.0, albumin 3.5, white blood cell count 7.6, hematocrit 43.4, hemoglobin A1c increased at 11.1%, vitamin-D 35.4 08/28/2023 Primary osteoarthritis of knees, bilateral (ICD-10 - [...] calcium 9.6, pro BMP normal at 629 Reviewed labs from 07/07/2023: Serum creatinine 2.22, calcium 9.0, albumin 3.5, white blood cell count 7.6, hematocrit 43.4, hemoglobin A1c increased at 11.1%, vitamin-D 35.4 08/28/2023 Psoriatic arthritis (ICD-10 - L40.50) History of [...] calcium 9.6, pro BMP normal at 629 Reviewed labs from 07/07/2023: Serum creatinine 2.22, calcium 9.0, albumin 3.5, white blood cell count 7.6, hematocrit 43.4, hemoglobin A1c increased at 11.1%, vitamin-D 35.4 08/28/2023 Localized primary osteoarthritis of both hands (ICD-10 - M19.041) OA of the hands, mainly at the first CMC joint and DIPs. labs from 03/26/2022: Serum creatinine increased at 2.27 with BUN of 48, calcium 9.6, pro BMP normal at 629 Reviewed labs from 07/07/2023: Serum creatinine 2.22, calcium 9.0, albumin 3.5, white blood cell count 7.6, hematocrit 43.4, hemoglobin A1c increased at 11.1%, vitamin-D 35.4 08/28/2023 Primary osteoarthritis of feet, bilateral (ICD-10 - M19.071) x-rays of bilateral feet from 03/23/15 showed no erosive arthritic change. Moderate right and mild to moderate left talonavicular arthritis, mild bilateral arthritic change first MTP joints, moderate bilateral plantar calcaneal spurs labs from 03/26/2022: Serum creatinine increased at 2.27 with BUN of 48, calcium 9.6, pro BMP normal at 629 Reviewed labs from 07/07/2023: Serum creatinine 2.22, calcium 9.0, albumin 3.5, white blood cell count 7.6, hematocrit 43.4, hemoglobin A1c increased at 11.1%, vitamin-D 35.4 08/28/2023 Encounter for long-term (current) use of other medications (ICD-10 - Z79.899) labs from 03/26/2022: Serum creatinine increased at 2.27 with BUN of 48, calcium 9.6, pro BMP normal at 629 Reviewed labs from 07/07/2023: Serum creatinine 2.22, calcium 9.0, albumin 3.5, white blood cell count 7.6, hematocrit 43.4, hemoglobin A1c increased at 11.1%, vitamin-D 35.4 Plan Of Treatment Medication Medication Name Sig Start Date Stop Date Notes Allopurinol 300 MG 1 tablet Orally Once a day Treatment Notes Assessment Notes Lumbosacral spondylosis without myelopat hy doing well with physical therapy activities. Patient will continue to use a wheeled walker to limit falls risk. He has been on tramadol through primary care Chronic gouty arthritis Plan:- reviewed blood work done since last visit. Patient has chronic renal insufficiency which is stable. Patient will continue to avoid nonsteroidal anti-inflammatories. Unfortunately uric acid was not checked with labs. - Patient will continue on his current regimen of allopurinol.- Labs: Patient was encouraged to have his providers in [place] check uric acid periodically- Continue to monitor labs on a regular basis to monitor for any drug related toxicity.- Patient will contact me for any questions or concerns prior to scheduled follow-up Next Appt Details Follow Up: upon return to [facility], Reason: arthritis Progress Notes * Richard BOYKINDOB:1940 ([age] yo M)Acc No.[id number]:08/28/2023 PROGRESS NOTE Patient: Richard MATHEWS Provider: Kumar BARRETO MD :1940 A ge:83 Y S ex:Male Date:08/28/2023 C #:[id number] Address:[address] [place] [address] Dr [facility] Subjective: * Chief Complaints: * F ollow-up for gout, chronic arthritic issues * HPI: P atient History: Richard returns today for follow-up of gout, chronic arthritic issues, medication management. Since last visit he has continued on allopurinol. No reported gouty flare symptoms. He was seen by Nephrology since last visit. Renal function is been stable. He continues to struggle with his blood sugar control. He states that recently his blood sugars have been fairly good. He continues with therapy activities for his back.? He states that he is doing well. He has some discomfort in his shoulders with overhead activities. He has chronic numbness to his left hand in a carpal tunnel distribution. He rates pain today 5/10 with about 2-3 minutes of morning stiffness. For active pain issues, see patient completed questionnaire including pain map (locations), functional status, sleep quality, stiffness, and pain scale (reviewed with patient). See scanned document from 08/28/2023. * ROS: R HEUMATOLOGY: Constitutional: N egative for:, fever, chills, fatigue.?Cardiovascular: P ositive for: Diagnosis of atrial fibrillation. R espiratory: N egative for:, dyspnea, dyspnea on exertion. G astrointestinal: N egative for:, abdominal pain, blood in stool, nausea, vomiting, GERD, dysphagia, diarrhea. I ntegumentary (skin and/or breast) N egative for, Raynaud's, hair loss, Positive for: Blister right foot -healing. N eurological: N egative for:, headaches, abrupt vision loss, seizures, Positive for: Neuropathy. * Medical History: * Surgical History: b ilateral hip replacement 95 & 96repeat left hip replacement- Dr Carlos Manuel Reyes 2010cataracts 2018RT Knee replacement 02/27/2020 * [facility] Fall 02/27/[facility]23 * Family History: I n [...] 1 tablet Orally Once a day B-12 5000 MCG Capsule 1 tablet Orally Once a day Claritin 10 MG Tablet 1 tablet Orally Once a day Eliquis 5 MG [...] tablet Orally Once a day Taking B-12 5000 MCG Capsule 1 tablet Orally Once a day Taking Claritin 10 MG Tablet 1 tablet Orally Once a day Taking Eliquis 5 [...] Cinnamon 500 MG Capsule 2 Orally Daily Ciprofloxacin HCl 500 MG Tablet 1 tablet Orally every 12 hrs CO-Q 10 [place]-3 Fish Oil Colchicine 0.6 MG Tablet 1 tablet Orally Once a day , Notes to Pharmacist: prnDoxycycline Hyclate 100 MG Capsule 1 capsule Orally Once a day Fish Oil 1000 MG Capsule 1 capsule [...] 1 tablet Orally Once a day Not-Taking Cinnamon 500 MG Capsule 2 Orally Daily Not-Taking Ciprofloxacin HCl 500 MG Tablet 1 tablet Orally every 12 hrs Not-Taking CO-Q 10 [place]-3 Fish Oil Not-Taking Colchicine 0.6 MG Tablet 1 tablet Orally Once a day , Notes to Pharmacist: prnNot-Taking Doxycycline Hyclate 100 MG Capsule 1 capsule Orally Once a day Not-Taking Fish Oil 1000 MG Capsule 1 capsule [...] 236.0 lbs, Wt-k.05 kg, BMI:32.91, Weight Change: 0 lbs, Body Surface Area: 2.31, BP:115/73, HR:84, Respiratory Rate:17, Oxygen sat %:95, Pain scale: 4. * Examination: R HEUMATOLOGY: Constitutional c onversant, well-developed, overweight, no apparent distress, used a walker to ambulate. Eyes N o conjunctival injection. Respiratory n ormal respiratory effort, clear to auscultation. Cardiovascular R egular rhythm, no MRGs, mild lower extremity pitting edema with chronic venous stasis changes. Gastrointestinal - Abdomen s oft with no masses, normal bowel sounds. Musculoskeletal s houlders had mild discomfort with abduction greater than 100 degree(s) . Elbows had full extension without swelling. Wrists and [...] spine. Skin R ight foot not examined. P atient showed pictures on his phone which showed healing of the ulceration.. Psychiatric a ppropriate affect. Assessment: * Assessment: 1. C hronic gouty arthritis - M1A.00X0 (Primary), History of gouty arthropathy with flares involving the feet predominantly. Diagnosis is not crystal proven. No history of tophi. On allopurinol-at goal uric acid on the last labs. Prior treatment with Colcrys (diarrhea). 2 . L umbosacral spondylosis without myelopathy - M47.817, MRI of the lumbar spine from 07/27/2016 showed multilevel DDD/DJD changes with severe spinal stenosis at L2-3 through L5-S1 and biforaminal stenosis L2-3 to L5-S1.. Benefit with tramadol. Physical therapy in [place] in summer 2015 and summer 2016. Prior acupuncture treatments-questionable benefit. Benefit with chiropractic treatments and Ultram. Current benefit with physical therapy 3 . C arpal tunnel syndrome on left - G56.02, utilizing carpal tunnel bracing at night 4 . 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 Possible tendon/ligament injury. Orthopedic evaluation in [place]-recommended against surgery 5 . P rimary osteoarthritis [...] calcium 9.6, pro BMP normal at 629 Reviewed labs from 07/07/2023: Serum creatinine 2.22, calcium 9.0, albumin 3.5, white blood cell count 7.6, hematocrit 43.4, hemoglobin A1c increased at 11.1%, vitamin-D 35.4. Plan: * Treatment: 2. L umbosacral spondylosis without myelopathy Notes: doing well with physical therapy activities. Patient will continue to use a wheeled walker to limit falls risk. He has been on tramadol through primary care * Procedure Codes: * Preventive Medicine: [place] PAF (Patient Assessment Form): F all Risk Assessment Date Screening Completed: 0 08/28/2023 Increased Fall Risk factors: D ifficulty ambulating (walks with cane or walker) History Falls in Past Year: N o falls in the past year A positive response is considered at risk. Addressed: P atient education I mmunizations Influenza Vaccine: 1 Pneumococcal Vaccine: Reji Munoz, date and dose unknown Quality Measures: W eight Assessment Above Normal BMI Follow-Up W eight monitoring * Follow Up: u candis return to [place] (Reason: arthritis) * Care Plan Details* * Sign off status: Completed true * Provider: Kumar BARRETO MD Date: 0 08/28/2023 Generated for Kristi torres/Stephanie/Jimitting on: 0 12/18/2024 11:44 AM EDT History and Physical Notes * HPI (History of Present Illness) Category Sub-Category Detail Notes Category Not es Patient History Ray returns today for follow-up of gout, chronic arthritic issues, medication management. Since last visit he has continued on allopurinol. No reported gouty flare symptoms. He was seen by Nephrology since last visit. Renal function is been stable. He continues to struggle with his blood sugar control. He states that recently his blood sugars have been fairly good. He continues with therapy activities for his back. He states that he is doing well. He has some discomfort in his shoulders with overhead activities. He has chronic numbness to his left hand in a carpal tunnel distribution. He rates pain today 5/10 with about 2-3 minutes of morning stiffness. For active pain issues, see patient completed questionnaire including pain map (locations), functional status, sleep quality, stiffness, and pain scale (reviewed with patient). See scanned document from 08/28/2023 Examination Category Sub-Category Detail Notes Category Not es RHEUMATOLOGY Constitutional conversant, well -developed, overweight, no apparent distress, used a walker to ambulate Eyes No conjunctival inje ction Respiratory normal respiratory e ffort, clear to auscultation Cardiovascular Regular rhythm, no M RGs, mild lower extremity pitting edema with chronic venous stasis changes Gastrointestinal - Abdomen soft with no masses, normal bowel sounds Musculoskeletal shoulders had mild d iscomfort with abduction greater than 100 degree(s) . Elbows had full extension without swelling. Wrists and [...] lumbar spine Skin Right foot not exami pritesh. Patient showed pictures on his phone which showed healing of the ulceration. Psychiatric appropriate affect
--- OUTSIDE RECORDS SUMMARY | 2024-06-24 09:00 | XMS_ITS ---
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 Assessments Encounter Date Diagnosis (ICD Code) Assessment Notes Treatment Notes Treatment Clinical Notes Section Notes 06/24/2024 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 (ICD-10 - E11.621) Plan Of Treatment No Information Progress Notes * CHRISTIANARAEGAN RichardDOB:1940 ([age] yo M)Acc No.[id number]:06/24/2024 Nurse Visit Patient: Richard MATHEWS Provider: Raul Mistry PA-C :1940 A ge:84 Y S ex:Male Date:06/24/2024 Address:[address] [place] [address] Pcp:Unknown or None Check In:01:05 PM ESTCheck [...] 06/24/2024 Generated for Kristi torres/Stephanie/Jimitting on: 0 12/18/2024 11:43 AM EDT History and Physical Notes * HPI (History of Present Illness) Category Sub-Category Detail Notes Category Not es General Nais 1-10 were trimmed and filed today to his liking. Dry skin was removed between toes. Nails werer overgrown and thickened
--- OUTSIDE RECORDS SUMMARY | 2024-09-23 09:00 | XMS_ITS ---
Author Organization [facility] in Portal Address [address] [place] [address] Care Team Providers [employer] Field Manager Name Role Phone None, Unknown or Primary Care Provider Unavailab Haritha Hurley Unavailable [phone] REASON FOR VISIT nails lm to cancel ; lm with appt Encounters Encounter Location Date Provider Diagnosis [facility] (PODIATRY) [address] [place] [address] [place] [address] 09/23/2024 Haritha Mistry Plan Of Treatment No Information Progress Notes * Richard BOYKINDOB:1940 ([age] yo M)Acc No.[id number]:09/23/2024 UNLOCKED PROGRESS NOTE Nurse Visit Patient: Richard MATHEWS Provider: Raul Mistry PA-C :1940 A ge:84 Y S ex:Male Date:09/23/2024 Address:[address] [place], [place] [id number] Pcp:Unknown or None Subjective: * Chief Complaints: * 1 . Nails lm to cancel ; lm with appt. * Medical History: Objective: * Vitals: Assessment: Plan: * Treatment: * * Electronic signature of Aundrea Mistry PA-C on 12/18/2024 at 11:43 AM EDT Sign off status: Pending Visit Status: O FF CANC (OFFICE CANCEL) * Provider: Raul Mistry PA-C Date: 0 09/23/2024 Generated for Ponchoi ng/Stephanie/eTransmitting on: 0 12/18/2024 11:43 AM EDT
--- OUTSIDE RECORDS SUMMARY | 2024-12-18 11:44 | XMS_ITS | Patient Health Record ---
Author Organization [facility] [place] Address [address] [place] [address] Care Team Providers Care Vermin Exterminator Name Role Phone None, Unknown or Primary Care Provider Unavailab Haritha Hurley Unavailable [phone] Results Component Value Reference Range Notes XR foot RT min 3V (Not yet r eviewed by provider) Interpretation: Performing Lab: Notes/Report: Source Facility: [place] [address] XRay Report Signed Patient: RICHARD BOYKIN MR#: [id number] : 1940 Acct:[id number] Age/Sex: 83 / M ADM Date: 03/01/24 Loc: Attending Dr: Yuri El D.P.M. Ordering Physician: Yuri El D.P.M. Date of Service: 03/01/24 Procedure(s): XR foot RT min 3V Accession Number(s): [id number] cc: MRAJ PIPER ; Yuri El D.P.M. [place] [id number] Patient Name: RICHARD BOYKIN MRN: [id number] date: 1940 Sex: M Assigned Patient Location: Current Patient Location: Accession/Order Number: [id number] Exam Date: 03/01/2024 10:30 Report Date: 03/03/2024 [...] M.D. Signed By: 03/03/24523 DD/ 0 TD/TT: Account Development Associate: [place] [address] XRay Report Signed Patient: RICHARD BOYKIN MR#: [id number] : 1940 Acct:[id number] Age/Sex: 83 / M ADM Date: 03/01/24 Loc: Attending Dr: Yuri El D.P.M. Ordering Physician: Yuri El D.P.M. Date of Service: 03/01/24 Procedure(s): XR foot RT min 3V Accession Number(s): [id number] cc: MARJ PIPER ; Yuri El D.P.M. [place] [id number] Patient Name: RICHARD BOYKIN MRN: [id number] date: 1940 Sex: M Assigned Patient Location: Current Patient Location: Accession/Order Numb er: [id number] Exam Date: 03/01/2024 10:30 Report Date: 03/03/2024 [...] M.D. Signed By: 03/03/24523 DD/ 0 TD/TT: Account Development Associate: Reason For Referral No Information Problems Problem Type SNOMED Code ICD Code Onset Dates Problem Status W/U Status Risk Notes Problem Foot ulcer due to type 2 diabetes mellitus (1574970028307) Type 2 diabetes mellitus with foot ulcer (E11.621) Active confirmed Problem Venous ulcer of lower extremity due to chronic peripheral venous hypertension (845885164646072 ) Chronic venous hypertension (idiopathic) with ulcer of left lower extremity (I87.312) Active confirmed Problem Chronic ulcer of skin of lower leg (disorder) (770195417478420 04) Non-pressure chronic ulcer of other part of left lower leg limited to breakdown of skin (L97.821) Active confirmed Problem Chronic foot ulcer, limited to breakdown of skin, right (L97.511) Active confirmed Problem Non-prs chr ulcer oth prt l low leg limited to brkdwn skin (L97.821) Active confirmed Problem Foot ulcer due to type 2 diabetes mellitus (6405272486202) 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 (E11.621) Active confirmed Problem Skin ulcer of left pretibial region with fat layer exposed (L97.822) Active confirmed Problem Chronic ulcer of right foot (disorder) (383889959057628 00) Chronic ulcer of right foot with fat layer exposed (L97.512) Active confirmed Vital Signs Heart Rate 89 /min 06/24/2024 Temperature 97.8 degrees Fahrenheit 06/24/2024 Oximetry 99 % 06/24/2024 Encounters Encounter Location Date Provider Diagnosis [facility] ([facility]) [address] [place] [address] [place] [address] 06/24/2024 Haritha Mistry Diabetes mellitus with foot [...] End Date [place]IC[place] [address] [place] [address] [id number] Richard Boykin Self - patient is the insured [facility] [address] [place] [address] [id number] Richard Boykin Self - patient is the insured
--- OUTSIDE RECORDS SUMMARY | 2024-12-18 11:44 | XMS_ITS | Data Portability ---
Author Organization [facility] [employer], [place], [facility] Address [address] [place] [address] Care Team Providers [place] Tax Assessor Name Role Phone EDGAR RAMOS Primary Care Provider [phone] EDGAR RAMOS Referring Provider [phone] Assessment Encounter Date Assessment Date Assessment LastModified by Organization Details LastModified Time 07/27/2023 07/27/2023 Cellulitis foot Not available 07/30/2023 13:49:56 Plan of Treatment Reminders Order Date Submit Date Provider Last Modified By Organization Details Last Modified Time Details Appointments None recorded. Lab HbA1c (hemoglobin A1c), blood 2023 [facility], [address] [place], [address], 07:10:35 vitamin D, 25-hydroxy, total, serum [address] [facility], [address] [place], [address], 07:10:36 Referral None recorded. Procedures None recorded. Surgeries None recorded. Imaging None recorded. Medication Orders glimepiride 4 mg tablet 2023 024 [facility], [facility] [address], [facility] [address], [place], [place], [id number], 4 17:13:18 Jardiance 25 mg tablet 2023 024 [facility], [address], [address], [place], [place], [id number], 4 17:13:18 Toujeo Max U-300 SoloStar 300 unit/mL (3 mL) subcutaneou s insulin pen 2023 024 [facility], [address], [address], [place], [place], [id number], 4 17:13:18 Jardiance 25 mg tablet 2023 024 [facility], [address], [address], [place], [place], [id number], 4 09:23:33 Toujeo Max U-300 SoloStar 300 unit/mL (3 mL) subcutaneou s insulin pen 2023 024 [email or web address] 146 [facility], [address], [address], [place], [place], [id number], 4 14:21:24 Eliquis 5 mg tablet 2023 024 [facility], [address], [address], [place], [place], [id number], 4 09:23:33 allopurinol 300 mg tablet 2023 024 [place] [facility], [address], [address], [place], [place], [id number], 4 10:03:15 metoprolol tartrate 25 mg tablet 2023 024 [place] [facility], [address], [address], [place], [place], [id number], 4 10:03:12 montelukast 10 mg tablet 2023 024 [place] [facility], [address], [address], [place], [place], [id number], 4 10:03:14 tramadol 50 mg tablet 2023 024 [place] [facility], [address], [address], [place], [place], [id number], 4 10:03:16 Claritin 10 mg tablet 2023 024 [place] [facility], [address], [address], [place], [place], [id number], 4 13:41:06 ropinirole 2 mg tablet 2023 024 [place] [facility], [address], [address], [place], [place], [id number], 4 10:03:13 glimepiride 4 mg tablet 2023 024 [place] [facility], [address], [address], [place], [place], [id number], 4 10:03:13 Jardiance 25 mg tablet 2023 024 [place] [facility], [address], [address], [place], [place], [id number], 4 10:03:08 Toerich KingoStcindy U-300 Insulin 300 unit/mL (1.5 mL) subcutaneou s pen 2023 024 [email or web address] 146 [facility], [address], [address], [place], [place], [id number], 4 13:10:11 Eliquis 5 mg tablet 2023 024 [place] [facility], [address], [address], [place], [place], [id number], 4 10:03:09 furosemide 40 mg tablet 2023 024 [place] [facility], [address], [address], [place], [place], [id number], 4 10:03:14 lisinopril 2.5 mg tablet 2023 024 [place] [facility], [address], [address], [place], [place], [id number], 4 10:03:10 lisinopril 10 mg-hydrochl orothiazide 12.5 mg tablet 2023 024 [place] [facility], [address], [address], [place], [place], [id number], 4 13:57:00 pantoprazol e 40 mg tablet,dulce yed release 2023 024 [place] [facility], [address], [address], [place], [place], [id number], 4 10:03:14 levothyroxi ne 50 mcg tablet 2023 024 [place] [facility], [address], [address], [place], [place], [id number], 4 10:03:11 allopurinol 300 mg tablet 2022 023 [facility], [address], [address], [place], [place], [id number], 3 12:59:14 hydrochloro thiazide 12.5 mg tablet 2022 023 [email or web address] [facility], [address], [address], [place], [place], [id number], 4 13:50:31 metoprolol tartrate 25 mg tablet 2022 023 [email or web address] [facility], [address], [address], [place], [place], [id number], 3 12:59:14 montelukast 10 mg tablet 2022 023 [email or web address] [facility], [address], [address], [place], [place], [id number], 3 12:59:14 ropinirole 2 mg tablet 2022 023 [facility], [address], [address], [place], [place], [id number], 3 12:59:14 glimepiride 4 mg tablet 2022 023 [facility], [address], [address], [place], [place], [id number], 3 12:59:14 Jardiance 25 mg tablet 2022 023 [email or web address] [facility], [address], [address], [place], [place], [id number], 3 12:59:14 Toujeo Max U-300 SoloStar 300 unit/mL (3 mL) subcutaneou s insulin pen 2022 023 [email or web address] [facility], [address], [address], [place], [place], [id number], 3 12:59:14 Eliquis 5 mg tablet 2022 023 [facility], [address] [place] [address], [place] [address], [id number], 3 12:59:14 furosemide 40 mg tablet 2022 023 [facility], [address] [place] [address], [facility] [address], [place], [place], [id number], 3 12:59:14 levothyroxi ne 50 mcg tablet 2022 023 [facility], [address], [place], [place], [id number], 3 12:59:14 lisinopril 2.5 mg tablet 2022 023 [facility], [address] [place] [address], [address], [place], [place], [id number], 3 12:59:14 Patient TargetsNo targets recorded. Patient Instructions Encounter Date Encounter Id Patient Instructions Last Modified By Organization Details Last Modified Time 06/26/2023 [id number] type 2 diabetes: care instructions Not available 06/27/2023 10:03:04 atrial fibrillation: care instructions Not available 06/27/2023 10:03:05 hypothyroidism: care instructions Not available 06/27/2023 10:03:05 09/07/2023 [id number] type 2 diabetes: care instructions Not available 09/07/2023 09:23:33 04/25/2024 [id number] high cholesterol : care instructions Not available [...] with diabe susan: <7.0 Not Available [facility] ([facility]) [address] [facility], [place], [address], 07/08/2023 07:10:35 07/07/19 24 07/08/2023 VITAM IN [...] um and D. Clay hutchinson [place]: [facility] . 2. Nury ayala [place], [place] holder [place], Jessica off-F errar i HANSON, et al. Evalu ation , treat ment, and preve ntion of vitam in D defic iency : an Endoc rine Socie ty clini fernando pract ice guide line. JCEM. 2010; 96(7) :1911 -30. Not Available [facility] ([facility]) [address] [facility], [place], [address], 07/08/2023 07:10:36 Result Notes None recorded. Problems Name Problem SNOMED Code Status Onset Date Resolution Date Notes Provider Name and Address Organization Details Recorded Time Gout 13913775 Active 2021 Not Available [facility] 4 03:27:48 Tinea pedis 0773839 Active 2021 Not Available [facility] 4 03:27:48 Psoriasis 4549256 Active 2021 Not Available [facility] 4 03:27:48 Disorder of thyroid gland 58126455 Active 2021 Not Available [facility] 4 03:27:47 Dizziness 569247441 Active 2021 Not Available [facility] 4 03:27:47 Wound of skin 183507906 Active 2021 Not Available [facility] 4 03:27:47 Atrial fibrillat ion 04943817 Active 2021 Not Available [facility] 4 03:27:48 Thromboph bj 548092816 Active 2021 Not Available [facility] 4 03:27:47 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 536002302 Active 2021 Not Available [facility] 4 03:27:47 Morbid obesity 967062405 Active 2021 Not Available [facility] 4 03:27:47 Periphera l vascular disease 628943022 Active 2021 Not Available [facility] 4 03:27:47 Muscle weakness 75607377 Active 2021 Not Available [facility] 4 03:27:47 Chronic kidney disease stage 3B 776521992 Active 2021 Not Available [facility] 4 03:27:48 Osteoarth ritis 107953858 Active 2021 Not Available [facility] 4 03:27:47 Immunodef iciency disorder 980562156 Active 2022 Not Available [facility] 4 03:27:47 Idiopathi c periphera l neuropath y 78431346 Active 2022 Not Available [facility] 4 03:27:47 Vertigo 413314179 Active 2022 Not Available [facility] 4 03:27:47 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 43152135409 9109 Active 2022 Not Available [facility] 4 03:27:47 Fatigue 77936829 Active 2022 Not Available [facility] 4 03:27:48 Allergic rhinitis 66517297 Active 2023 Not Available [facility] 4 03:27:48 Hypothyro idism 18161882 Active 2023 Not Available [facility] 4 03:27:48 Vitamin D deficienc y 47479633 Active 2023 Not Available [facility] 4 03:27:47 Hyperglyc emia 78889479 Active 2023 Not Available [facility] 4 03:27:48 Heart failure 98240346 Active 2023 Not Available [facility] 4 03:27:48 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 mellitus 06983162864 8 Active 2023 Not Available [facility] 4 03:27:48 Gastroeso phageal reflux disease 110906189 Active 2023 Not Available [facility] 4 03:27:47 Celluliti s of toe of right foot 18717856390 420335 Active 2023 Not Available [facility] 4 03:27:47 Periphera l circulato ry disorder due to type 2 diabetes mellitus 262613957 Active 2023 Not Available [facility] 4 03:27:48 Chronic ulcer of skin of lower leg 94633149974 236483 Active 2023 Edgar Ramos MD [address], [place], [address] , [facility], [facility] 4 13:53:48 Edema of lower extremity 766699536 Active 2023 Edgar Ramos MD [address], [place], [address] , [facility], [facility] 4 13:53:58 Chronic ulcer of ankle 271381869 Active 2023 Edgar Ramos MD [address], [place], [address] , [facility]ician 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ician 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ician [facility], [facility] 4 13:55:05 Chronic ulcer of foot 944507562 Active 2023 MD Farzaneh Krishnamurthy [address], [place], [address] , 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, [facility] 4 13:55:08 Type 2 diabetes mellitus 42142185 Active 2023 MD Farzaneh Krishnamurthy [address], [place], [address] , [facility], [facility] 4 13:55:13 Counselin g Active 2023 MD Farzaneh Krishnamurthy [address], [place], [address] , [facility], [facility] 4 13:55:17 Hyperlipi demia 54653519 Active 2023 MD Farzaneh Krishnamurthy [address], [place], [address] , [facility], [facility] 4 13:57:52 Type 2 diabetes mellitus 12208228 Completed 201806/20/2019 MD Farzaneh Krishnamurthy [address], [place], [address] , [facility] - 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 102390045 Active 2020 Not Available [facility] 4 03:27:47 Restless legs 07012601 Active 2020 Not Available [facility] 4 03:27:47 Influenza vaccine needed 83027006599 06 Active 2020 Not Available [facility] 4 03:27:47 Diet education Active 2020 Not Available [facility] 4 03:27:47 Obesity 795876671 Active 2020 Not Available [facility] 4 03:27:48 Body mass index 30+ - obesity 534107411 Active 2020 Not Available [facility] 4 03:27:47 Adult health examinati on Active 2020 Not Available [facility] 4 03:27:47 Notes:Some problems listed i n Documents: #[id number], #[id number], #[id number], #[id number] could not be added to this patient's chart. Please review these documents and add these problems to the patient's chart manually as needed. Problem Notes None recorded. Procedures Surgical History Date Name Laterality Status Provider Name and Address Organization Details Recorded Time 06/26/19 24 Quality Functional Assessment completed Tami Adler [facility], [facility] 06/26/2023 12:01:17 06/26/19 24 Quality Medication Reviewed and Updated completed Tami Adler [facility], [facility] 06/26/2023 12:01:17 06/26/19 24 Medicare AWV Questionnaire completed Tami Adler [facility], [facility] 06/26/2023 12:01:25 06/26/19 24 Quality BMI with follow up completed Tami Adler [facility], [facility] 06/26/2023 12:01:17 06/26/19 24 Quality Advanced Care Planning completed Tami Adler [facility], [facility] 06/26/2023 12:01:17 06/26/19 24 Quality Incontinence Screening completed Tami Adler [facility], [facility] 06/26/2023 12:01:17 06/26/19 24 Medicare AWV-Screening Schedule completed Tami Adler [facility], [facility] 06/26/2023 12:01:17 06/26/19 24 Quality Fall Risk Assessment completed Tami Adler [facility], [facility] 06/26/2023 12:01:17 10/11/19 23 Quality Medication Reviewed and Updated completed Jeane Wheatley [facility], [facility] 10/10/2022 15:21:28 10/11/19 23 Quality Pain Screening positive Pain completed Jeane Wheatley [facility], [facility] 10/10/2022 15:23:22 08/19/19 23 Quality Pain Screening No Pain completed Henrik Simmons [facility], [facility] 08/18/2022 07:54:07 08/19/19 23 Quality Medication Reviewed and Updated completed Henrik Simmons [facility], [facility] 08/18/2022 07:54:06 06/24/19 23 Quality Pain Screening No Pain completed Henrik Simmons [facility], [facility] 06/23/2022 13:12:32 06/24/19 23 Quality Medication Reviewed and Updated completed Henrik Simmons [facility], [facility] 06/23/2022 13:12:23 06/24/19 23 Quality Tobacco Non- User completed [facility] Simmons [facility], [facility] 06/23/2022 13:12:39 06/24/19 23 ophthalmic examination and evaluation completed Jeane Wheatley [facility], [facility] 06/25/2022 09:18:47 06/15/20 22 Quality Medication Reviewed and Updated completed Henrik Simmons [facility], [facility] 06/15/2022 12:43:13 06/15/20 22 Quality Pain Screening positive Pain completed [facility], [facility] 06/15/2022 13:40:36 05/20/20 22 Quality Medication Reviewed and Updated completed [facility], [facility] 05/19/2022 13:02:54 05/20/20 22 Quality Fall Risk Assessment Low Risk completed [facility], [facility] 05/19/2022 13:02:53 05/20/20 22 Quality Pain Screening positive Pain completed [facility], [facility] 05/20/2022 09:08:34 05/20/20 22 hemoglobin A1c measurement completed [facility], [facility] 06/03/2022 08:37:59 05/20/20 22 urine microalbumin/crea tinine ratio measurement completed [facility] Arizon[facility]ri [facility], [facility] 06/03/2022 08:39:38 04/20/20 22 Quality Functional Assessment completed [facility], [facility] 04/20/2022 07:49:52 04/20/20 22 Quality Medication Reviewed and Updated completed [facility], [facility] 04/20/2022 07:49:51 04/20/20 22 Quality Fall Risk Assessment Low Risk completed [facility], [facility] 04/20/2022 07:50:04 04/20/20 22 Quality Pain Screening positive Pain completed [facility]zon[facility] Simmons [facility], [facility] 04/20/2022 11:33:31 04/12/20 22 ophthalmic examination and evaluation completed Jeane Wheatley [facility], [facility] 04/23/2022 11:31:52 09/10/19 Quality Functional Assessment completed [facility], [facility] 09/07/2021 19:46:14 09/10/19 Quality Medication Reviewed and Updated completed [facility], [facility] 09/07/2021 19:46:14 09/10/19 Quality (DM or HTN ) BP Systolic < 130 completed [facility]ician [facility], [facility] 09/07/2021 19:47:39 09/10/19 Quality BMI with follow up completed [facility], [facility] 09/07/2021 19:46:14 09/10/19 Quality Advanced Care Planning completed [facility], [facility] 09/07/2021 19:46:14 09/10/19 Quality Incontinence Screening completed [facility], [facility] 09/07/2021 19:46:14 09/10/19 Medicare AWV - Screening Schedule completed [facility], [facility] 09/07/2021 19:46:14 09/10/19 Quality Fall Risk Assessment completed [facility], [facility] 09/07/2021 19:46:14 08/12/19 Quality Medication Reviewed and Updated completed [facility], [facility] 08/08/2021 15:29:10 08/12/19 22 Quality (DM or HTN ) BP Systolic < 130 completed [facility], [facility] 08/08/2021 15:29:08 08/12/19 22 Quality Pain Screening positive Pain completed [facility], [facility] 08/08/2021 15:29:21 07/12/19 22 diabetic retinopathy screening completed [facility], [facility] 07/13/2021 12:36:37 05/04/20 Quality Functional Assessment completed [facility], [facility] 05/03/2021 10:04:49 05/04/20 21 Quality Medication Reviewed and Updated completed [facility], [facility] 05/03/2021 10:04:49 05/04/20 21 Quality Fall Risk Assessment Low Risk completed [facility], [facility] 05/03/2021 10:04:49 05/04/20 21 Quality BMI with follow up completed [facility], [facility] 05/03/2021 10:04:49 05/04/20 21 Quality Advanced Care Planning completed [facility], [facility] 05/03/2021 10:04:49 05/04/20 21 Quality Incontinence Screening completed [facility], [facility] 05/03/2021 10:04:49 05/04/20 21 Medicare AWV - Screening Schedule [facility], [facility] 05/03/2021 10:04:49 04/06/20 21 Quality Functional Assessment completed [facility], [facility] 03/23/2021 19:15:31 04/06/20 21 Quality Medication Reviewed and Updated completed [facility], [facility] 03/23/2021 19:15:31 04/06/20 21 Quality Fall Risk Assessment Low Risk completed [facility], [facility] 03/23/2021 19:15:31 04/06/20 21 Quality BMI with follow up completed [facility], [facility] 03/23/2021 19:15:31 04/06/20 21 Quality Advanced Care Planning completed [facility], [facility] 03/23/2021 19:15:31 04/06/20 21 Quality Incontinence Screening completed [facility], [facility] 03/23/2021 19:15:31 04/06/20 21 Medicare AWV - Screening Schedule completed [facility], [facility] 03/23/2021 19:15:31 08/25/19 21 Quality Functional Assessment completed Shikha Garcia LPN [place] [facility], [facility] 08/24/2020 10:13:58 08/25/19 21 Quality Medication Reviewed and Updated completed Shikha Garcia [facility], [facility] 08/24/2020 10:13:58 08/25/19 21 Quality Fall Risk Assessment Low Risk completed Shikha Garcia [facility], [facility] 08/24/2020 10:13:58 08/25/19 21 Quality BMI with follow up completed Shikha Garcia [facility], [facility] 08/24/2020 10:13:58 08/25/19 21 Quality Advanced Care Planning completed Shikha Garcia [facility] 08/24/2020 10:13:58 08/25/19 21 Quality Incontinence Screening completed Shihka Garcia [facility] 08/24/2020 10:13:58 08/25/19 21 Medicare AWV - Screening Schedule completed Shikha Garcia [facility] 08/24/2020 10:13:58 03/19/20 19 Knee surgery completed Jeane Wheatley [facility], [facility] 04/06/2021 16:08:33 06/19/19 19 colonoscopy completed Edgar Ramos MD [address], [id number], [facility] 04/06/2021 18:28:22 06/19/19 09 Joint replacement, other completed Henrik Simmons [facility] 05/19/2022 13:03:33 Imaging Results None recorded. Procedure Notes None recorded. Medical Equipment None Reported. Allergies No known drug allergies Medications Name Sig Start Date Stop Date Status Note LastModified by Organization Details LastModified Time Prescript ion - New 05/04 completed Not Available Not Available Not Available Prescript ion - Clarifica tion active [employer] [facility] solostar Not Available Not Available Not Available Prescript [...] [degF] 18 /min 177.8 cm 33.9 kg/m2 624300. 95 g 77 /min 97 % 97 % 138 mm[Hg] 74 mm[Hg] Francesca Yanez [facility], [facility] 4 15:34:17 Date Recorded Body height Body mass index (BMI) Body weight Body temperature Heart rate Respiratory rate Oxygen saturation Oxygen saturation in Arterial blood by Pulse oximetry Systolic blood pressure Diastolic blood pressure Provider Name and Address Organization Details Last Updated DateTime 4 177.8 cm 34 kg/m2 308042. 11 g 97.4 [degF] 40 /min 18 /min 91 % 91 % 152 mm[Hg] 98 mm[Hg] Tami Adler [facility], [facility] 4 10:34:11 Date Recorded Body height Body mass index (BMI) Body weight Body temperature Respiratory rate Heart rate Oxygen saturation Oxygen saturation in Arterial blood by Pulse oximetry Systolic blood pressure Diastolic blood pressure Provider Name and Address Organization Details Last Updated DateTime 4 177.8 cm 33.7 kg/m2 421978. 21 g 97 [degF] 19 /min 70 /min 93 % 93 % 164 mm[Hg] 88 mm[Hg] Tami Adler [facility], [facility] 4 07:52:35 Date Recorded Body height Body mass index (BMI) Body weight Body temperature Heart rate Oxygen saturation Oxygen saturation in Arterial blood by Pulse oximetry Systolic blood pressure Diastolic blood pressure Provider Name and Address Organization Details Last Updated DateTime 3 177.8 cm 34.3 kg/m2 761338. 01 g 97.2 [degF] 77 /min 95 % 95 % 126 mm[Hg] 74 mm[Hg] Jeane Wheatley [facility], [facility] 3 15:23:01 Date Recorded Body height Body mass index (BMI) Body weight Body temperature Heart rate Oxygen saturation Oxygen saturation in Arterial blood by Pulse oximetry Systolic blood pressure Diastolic blood pressure Provider Name and Address Organization Details Last Updated DateTime 4 177.8 cm 32.3 kg/m2 289280. 72 g 98.2 [degF] 79 /min 98 % 98 % 128 mm[Hg] 60 mm[Hg] Lala Flores [facility], [facility] 4 13:28:24 Social History Question Answer Notes LastModified by Organizat ion Details LastModified Time Tobacco Smoking Status Never Smoker Yumi dailey [facility], [facility] 04/17/2019 11:10:25 Do You Have An Advance Directive? Yes [email or web address] Information not available 05/08/2019 Is Your Home Air Conditioned? Yes [email or web address] Information not available 06/26/2023 Are You Currently Sexually Active With Anyone Who Has Traveled (within The Last 12 Weeks) To A Zika-affected Area? No [email or web address] Information not available 06/26/2023 Do You Wear A Helmet When Biking? No [email or web address] Information not available 06/26/2023 Is Blood Transfusion Acceptable In An Emergency? Yes [email or web address] Information not available 09/09/2021 What Is Your Level Of Caffeine Consumption? Occasional Information not available 05/08/2019 In The 14 Days Before Symptom Onset, Have You Had Close Contact With A Laboratory-confi rmed COVID-19 While That Case Was Ill? No [email or web address] Information not available 06/26/2023 In The 14 Days Before Symptom Onset, Have You Had Close Contact With A Person Who Is Under Investigation For COVID-19 While That Person Was Ill? No [email or web address] Information not available 06/26/2023 Have You Been To An Area Known To Be High Risk For COVID-19? No [email or web address] Information not available 06/26/2023 What Type Of Diet Are You Following? [email or web address] Information not available 06/26/2023 Which Illicit Or Recreational Drugs Have You Used? None Information not available 06/20/2019 Have You Processed Blood Or Body Fluids From An Ebola Virus Disease Patient Without Appropriate PPE? No [email or web address] Information not available 06/26/2023 Do You Reside In Or Have You Traveled To An Area Where Ebola Virus Transmission Is Active? No [email or web address] Information not available 06/26/2023 Education 2 Year College [email or web address] Informatio n not available 06/26/2023 Do You Have An Electrostatic Air Filter? No [email or web address] Information not available 06/26/2023 Have There Been Any Changes To Your Family Or Social Situation? No [email or web address] Information not available 06/26/2023 What Is The Fluoride Status Of Your Home? Unknown [email or web address] Information not available 06/26/2023 Are There Any Guns Present In Your Home? No [email or web address] Information not available 06/26/2023 Which Of Your Hands Is Dominant? Right [email or web address] Information not available 06/26/2023 Do You Have A Humidifier? No [email or web address] Information not available 06/26/2023 Where Do You Live? SingleLevelHouse [email or web address] Information not available 06/26/2023 Alcohol Use Less Than 1 Per Month Information not available 04/06/2021 Do You Smoke? No Informatio n not available 04/06/2021 Year Quit Tobacco Use Never Information not available 04/06/2021 Marital Status [email or web address] Informatio n not available 06/26/2023 Do You Have A Medical Power Of Laboratory Technical Specialist? Yes [email or web address] Information not available 06/26/2023 What Was The Date Of Your Most Recent Tobacco Screening? 06/26/2023 [email or web address] Information not available 06/26/2023 What Is Your Relationship Status? [email or web address] Information not available 05/04/2021 Do You Use Your Seat Belt Or Car Seat Routinely? Yes [email or web address] Information not available 06/26/2023 Are You Sexually Active? No Information not available 08/24/2020 Do You Have Smoke And Carbon Monoxide Detectors In Your Home? Yes [email or web address] Information not available 06/26/2023 Are You Passively Exposed To Smoke? No Information not available 06/26/2023 Are There Any Smokers In Your House? No Information not available 06/26/2023 Do You Use Sunscreen Routinely? No Information not available 06/26/2023 Has Tobacco Cessation Counseling Been Provided? No [email or web address] Information not available 06/26/2023 How Many Years Have You Smoked Tobacco? 0 Information not available 08/24/2020 Do You Have Any Dietary Restrictions? No [email or web address] Information not available 06/26/2023 Sex: Male Functional Status Question Answer Note LastModified by Organizat ion Details LastModified Time Do you use any illicit or recreational drugs? No [email or web address] Information not available 06/26/2023 Do you or have you ever used any other forms of tobacco or nicotine? No [email or web address] Information not available 06/26/2023 What is your level of alcohol consumption? None Information not available 04/17/2019 Do you or have you ever used smokeless tobacco? Never used smokeless tobacco Information not available 05/08/2019 Are you currently employed? No [email or web address] Information not available 06/26/2023 Have you been exposed to chemicals or toxins? No Information not available 06/26/2023 Do you have transportation difficulties? No [email or web address] Information not available 06/26/2023 Are you able to care for yourself? Yes [email or web address] Information n ot available 06/26/2023 What is your exercise level? Moderate [email or web address] Information not available 06/26/2023 Mental Status None recorded. Family History Relationship Description Onset Age of this Age Resolved Age Notes LastModified by Organization Details LastModified Time Father Arthritis [email or web address] Not availa ble 05/08/2019 10:42:11 Father Diabetes mellitus [email or web address] Not available 05/08 10:42:11 Medical History Condition Response Cancer (location) N Other N Gout Y Thyroid Disease N Kidney Stones N Measles/Mumps [...] pneumococcal polysaccharide PPV23 2 completed Not Available [facility] 08/04/2023 03:27:48 Influenza, split virus, trivalent, preservative 5 completed Not Available [facility] 08/04/2023 03:27:48 Influenza, high-dose, trivalent, PF 6 completed Not Available [facility] 08/04/2023 03:27:48 zoster live 1 completed Not Available [facility] 08/04/2023 03:27:48 Influenza, split virus, quadrivalent, preservative 0 completed Not Available [facility] 08/04/2023 03:27:48 COVID-19, mRNA, LNP-S, PF, 100 mcg/0.5mL dose or 50 mcg/0.25mL dose 1 completed Not Available [facility] 08/04/2023 03:27:48 COVID-19, mRNA, LNP-S, PF, 100 mcg/0.5mL dose or 50 mcg/0.25mL dose 1 completed Not Available [facility] 08/04/2023 03:27:48 COVID-19, mRNA, LNP-S, PF, 100 mcg/0.5mL dose or 50 mcg/0.25mL dose 1 completed Not Available [facility] 08/04/2023 03:27:48 Influenza, adjuvanted, quadrivalent, PF 1 completed Jeane dailey [facility], [facility] 04/06/2021 17:27:33 pneumococcal polysaccharide PPV23 1 completed Jeane dailey [facility], [facility] 04/09/2021 07:27:56 Past Encounters Encounter ID Performer Location Encounter Start Date Encounter Closed Date Diagnosis/Indication Diagnosis SNOMED-CT Code Diagnosis ICD10 Code Diagnosis Note [id number] Edgar Ramos MD [facility] [address] [place] [address] 04/17/2019 10:35:50 04/17/2019 12:08:28 Body mass index 40+ - severely obese 105308782 Z68.41 weight issues discussed and informatio n on weight loss given. needs follow up on weight control as scheduled. Education handout on diets given. Exercise counseling done. Will arrange referral for dietitian, nutritioni st, Physical/o ccupationa l therapy as needed or desired. Also will consider pharmaceut ical and supplement al interventi ons Morbid obesity 792718388 E66.01 see BMI above for details.. Chronicall y he appears likely [facility] Diet education 77909710 Z71.3 as above Type 2 isaias betes mellitus 57209487 E11.21 This sugar will be watched his levels are good. We are going to cut his Jardiance in half he is going to watch his diet Peripheral vascular disease 404268584 I73.9 His Nizoral shampoo every fifth day I advised him how to do it [id number] Edgar Ramos MD [facility] [place] [address] [place] [email or web address] [place] [address] 05/08/2019 10:24:41 05/08/2019 12:07:03 Essential hypertension 85743982 I10 His blood pressure is stable he is monitoring his pressure Diet education 76716633 Z71.3 as above Body mass index 40+ - severely obese 934374347 Z68.41 weight issues discussed and informatio n on weight loss given. needs follow up on weight control as scheduled. Education handout on diets given. Exercise counseling done. Will arrange referral for dietitian, nutritioni st, Physical/o ccupationa l therapy as needed or desired. Also will consider pharmaceut ical and supplement al interventi ons Morbid obesity 568657587 E66.01 see BMI above for details. Tinea pedis 1775586 B35. 3 We are going to add Diflucan to his treatment. He does take a little bit of tramadol but not enough to interfere with the Diflucan I did give him 20 days. We should see this patient back within about a month's time he will continue to see his rheumatolo gy Type 2 isaias betes mellitus 64828745 E11.21 This sugar will be watched his levels are good. We are going to cut his Jardiance in half he is going to watch his diet [id number] Edgar Ramos MD [facility] [place] [address] [place] [address] 06/20/2019 14:36:03 06/20/2019 15:36:18 Body mass index 40+ - severely obese 218844359 Z68.41 weight issues discussed and informatio n on weight loss given. needs follow up on weight control as scheduled. Education handout on diets given. Exercise counseling done. Will arrange referral for dietitian, nutritioni st, Physical/o ccupationa l therapy as needed or desired. Also will consider pharmaceut ical and supplement al interventi ons Type 2 isaias betes mellitus 56194397 E11.21 This sugar will be watched his levels are good. We are going to cut his Jardiance in half he is going to watch his diet I want to try to control the diet without getting his sugar too low Tinea pedis 1322724 B35. 3 He is going to finish up his Diflucan he will also continue his every 5 or 6 days topical Nizoral treatment Peripheral vascular disease 942213399 I73.9 I am hoping to keep his cholestero l low and also his A1c low have him continue walking hopefully he can bring his weight down little bit Uncontroll ed type 2 diabetes mellitus 722629237 E11.65 His diabetes by itself is uncontroll ed is all over the place of course he does not watch his diet too well Type 2 isaias betes mellitus with peripheral angiopathy 113946450 E11.51 He has comorbidit y of his diabetes and his peripheral vascular disease [id number] Edgar Ramos MD [facility] [address] [place] [address] 07/29/2019 15:27:23 07/29/2019 17:20:34 Body mass index 30+ - obesity 613288398 Z68.39 Uncontroll ed type 2 diabetes mellitus 832004365 E11.65 His diabetes by itself is uncontroll [...] sugar still take care of cost Gout 28247035 M10.9 He is watching gouty foods and he is avoiding nose we did refill his allopurino l today [id number] Edgar Ramos MD [facility] [address] [place] [address] 09/04/2019 10:25:58 09/04/2019 12:19:01 Tinea pedis 3679209 B35.3 This patient is still using about every 10 to 12 days a treatment with Nizoral shampoo and is working beautifull y for him. Uncontroll ed type 2 diabetes mellitus 315622999 E11.65 This patient's sugars are dramatical ly better he is running great between 95 and 130. Were to try lab rise little bit higher and cut the Jardiance down to 1/2 tablet of the 10 mg. I will see him in the fall I am extremely pleased with his ownership of disease [id number] Edgar Ramos MD [facility] [place] [address] [place] [address] 05/04/2020 14:36:18 05/04/2020 17:03:23 Essential hypertension 42320233 I10 His blood pressure is stable he is monitoring his pressure blood pressures are acceptable Uncontroll ed type 2 diabetes mellitus 944890408 E11.65 Patient sugars are running pretty much all over the place we need to get an A1c because his last A1c was 8.4 History of total knee arthroplasty 9025906275 105 Z96.659 His knee is actually doing well that is actually the best part of it [id number] Edgar Ramos MD [facility] [place] [address] [place] [address] 06/22/2020 10:24:53 06/22/2020 12:11:26 Essential hypertension 51113225 I10 His blood pressure is stable he is monitoring his pressure blood pressures are acceptable Uncontroll ed type 2 diabetes mellitus 697371471 E11.65 Patient sugars are running pretty much all over the place we need to get an A1c because his last A1c was 8.4 Restless legs 31832515 G 25.81 Screening for malignant neoplasm of prostate 063638993 Z12.5 [id number] Edgar Ramos MD [facility] [place] [address] [place] [address] 07/03/2020 09:14:07 07/03/2020 10:43:52 Uncontrolled type 2 diabetes mellitus 392442221 E11.65 Patient sugars are running pretty much all over the place we need to get an A1c because his last A1c was 8.4. For now we will get and try to bring his postprandi al sugars down a little better by increasing his Jardiance from 10-25 Restless legs 86220781 G 25.81 We refilled his ropinirole he is taking 2 mg twice daily Renewal of prescription 245611922 Z76.0 He needs a renewal of his medication s today Body mass index 40+ - severely obese 644873926 Z68.41 weight issues discussed and informatio n on weight loss given. needs follow up on weight control as scheduled. Education handout on diets given. Exercise counseling done. Will arrange referral for dietitian, nutritioni st, Physical/o ccupationa l therapy as needed or desired. Also will consider pharmaceut ical and supplement al interventi ons Type 2 isaias betes mellitus with peripheral angiopathy 358917661 E11.51 He has comorbidit y of his diabetes and his peripheral vascular disease [id number] MD MARCELINO Krishnamurthy [place] [address] [place] [email or web address] [place] [address] 08/24/2020 09:44:54 08/24/2020 11:11:37 Adult health examination 128703774 Z00.00 Annual Wellness Visit done today Uncontrol ed type 2 diabetes mellitus 122757870 E11.65 Patient sugars are running pretty much all over the place we need to get an A1c because his last A1c was 8.4. For now we will get and try to bring his postprandi al sugars down a little better by increasing his Jardiance from 10-25. 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 We went over his vitamins and his vaccines he is very reliable and does proximal this good preventati ve care Body mass index 30+ - obesity 988415808 Z68.39 weight issues discussed and informatio n on weight loss given. Needs follow up on weight control as scheduled. Education handout on diets given. Exercise counseling done. Will arrange referral for dietitian, nutritioni st, Physical/o ccupationa l therapy as needed or desired. Also will consider pharmaceut ical and supplement al interventi ons bmi 39.1 Obesity 358347144 E66.9 see BMI above for details Diet education 93442386 Z71.3 as above he is weight has not changed he is very stable he does watch what he eats but he just eats more than he should Influenza vaccine needed 7200458176 106 Z23 Today we are giving his flu shot to him Essential hypertension 81880050 I10 E78.2 His blood pressure is stable he is monitoring his pressure blood pressures are acceptable his blood pressure is well controlled his medicines include for blood pressure hydrochlor othiazide 12.5. He also takes metoprolol 25 tartrate twice daily [id number] Edgar Ramos MD [facility] [place] [address] [place] [address] 04/08/2021 08:33:32 04/09/2021 11:36:28 Administration of pneumococcal vaccine 04789085 Z23 [id number] Edgar Ramos MD [facility] [place] [address] [place] [address] 05/04/2021 15:10:55 05/04/2021 16:39:46 Adult health examination 896050701 Z00.00 Annual Wellness Visit done today we did go over preventati ve measures vitamins to vaccines and the like Essential hypertension 18802677 I10 E78.2 His blood pressure is 126/84 his blood pressure medicine includes hydrochlor othiazide 12.5 and metoprolol tartrate 25 twice daily Restless legs 91401042 G 25.81 We did give him instructio ns regarding restless leg syndrome Type 2 isaias betes mellitus with peripheral angiopathy 853000559 E11.51 His A1c is still higher than I like but I cannot drive his basal sugar down too much or he will get hypoglycem ic Body mass index 40+ - severely obese 177057339 Z68.41 His BMI has not really changed over time 38.9 BMI he continues to say he is working on the diet but so far has not been with result [id number] Edgar Ramos MD [facility] [place] [address] [place] [address] 06/17/2021 14:50:58 06/17/2021 15:33:36 Uncontrolled type 2 diabetes mellitus 091552383 E11.65 Patient sugars are running pretty much all over the place we need to get an A1c because his last A1c was 8.4. For now we will get and try to bring his postprandi al sugars down a little better by increasing his Jardiance from 10-25. Were going to check his laboratory today. Diabetes is under control Essential hypertension 11890088 I10 E78.2 His blood pressure is 126/84 his blood pressure medicine includes hydrochlor othiazide 12.5 and metoprolol tartrate 25 twice daily blood pressure today 150/78 Diabetic p eripheral neuropathy 431185345 E11.40 Sensations are decreased monofilame nt is positive for both feet of the toes and the forefoot other than that he can feel [id number] Edgar Ramos MD [facility] [place] [address] [place] [email or web address] [place] [address] 08/12/2021 13:26:43 08/12/2021 14:21:28 Disorder of thyroid gland 36662073 E07.9 Patient has hypothyroi dism he takes thyroid medicine. His status is stable we will get a check his T SH and free T4 Psoriasis 4872718 L40.9 Psoriasis is stable at this point he is not changing medicine at all Type 2 isaias betes mellitus 27695008 E11.21 This sugar will be watched his [...] status is stable and improving Tinea pedis 4107316 B35. 3 This patient is still using about every 10 to 12 days a treatment with Nizoral shampoo and is working beautifull y for him.. His tinea pedis has stabilized and is doing well Dizziness 680963550 R42 The patient is dizziness status is getting worse he is much more wobbly he does not know the cause of it were going to give him closing Essential hypertension 58156191 I10 E78.2 His blood pressure is 126/84 his blood pressure medicine includes hydrochlor othiazide 12.5 and metoprolol tartrate 25 twice daily blood pressure today Body mass index 30+ - obesity 915893892 Z68.39 weight issues discussed and informatio n on weight loss given. Needs follow up on weight control as scheduled. Education handout on diets given. Exercise counseling done. Will arrange referral for dietitian, nutritioni st, Physical/o ccupationa l therapy as needed or desired. Also will consider pharmaceut ical and supplement al interventi ons Obesity 534137366 E66.9 see BMI above for details Diet education 31769003 Z71.3 as above trial. The patient's blood [...] things he has not changed too much [id number] Edgar Ramos MD [facility] [address] [place] [address] 09/09/2021 14:17:08 09/09/2021 15:21:43 Disorder of thyroid gland 24655808 E07.9 Patient has hypothyroi dism he takes thyroid medicine. His status is stable we will get a check his T SH and free T4 he has hypothyroi dism and is stable presently he is.. All 25 mcg of Levothroid Type 2 isaias betes mellitus 27477463 E11.21 This sugar will be watched his [...] problem Body mass index 30+ - obesity 549196049 Z68.38 weight issues discussed and informatio n [...] on at present he is 38.9 Obesity 251278967 E66.9 see BMI above for details he is going to try to watch his starches little bit become a little bit of a vegetable eater Diet education 51893757 Z71.3 as above I wish him luck in the diet at I do not want a supplement in with an appetite suppressan t certainly Essential hypertension 35015178 I10 E78.2 His blood pressure is 126/84 his blood pressure medicine includes hydrochlor othiazide 12.5 and metoprolol tartrate 25 twice daily blood pressure today. His blood pressure is stable Dizziness 828689481 R42 The patient is dizziness status is getting worse he is much more wobbly he does not know the cause of it were going to give him closing. 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 he did a little better with meclizine but he had some side effects he said which he did not like [id number] [facility] [address] [place] [address] 04/20/2022 11:13:45 04/20/2022 12:54:50 Type 2 diabetes mellitus 97038485 E11.21 This sugar will be watched his [...] sick but better now Wound of skin 940116458 T14.8XXA status is controlled he has a wound that is scant he needs to be seen by home health wound care and physical therapySta brittny is not good right now his wound is open and draining but it does not look purulent too badly Peripheral vascular disease 789740421 I73.9 I am hoping to keep his [...] 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 934754623 L40.51 He does have psoriatic arthritic changes that are stable right nowThe psoriatic arthritis continues to plague him but he is stable and has been little change Morbid obesity 195208697 E66.01 I hope he can continue to lose weight Body mass index 30+ - obesity 300355283 Z68.38 weight issues discussed and informatio n [...] is come down a little bit Thrombophilia 383802226 D68.69 He takes anticoagul ation his blood count is affected little bit by that it is stable Essential hypertension 57542878 I10 His blood pressure is 126/84 his [...] the rate is controlled it is stable [id number] MD MARCELINO Krishnamurthy [address] [place] [address] 05/20/2022 08:50:08 05/20/2022 09:47:30 Wound of skin 128053691 T14.8XXA His wounds on his leg are improving he is seeing wound management Status is improving wounds are healing Uncontroll ed type 2 diabetes mellitus 995243654 E11.65 Patient sugars are running pretty much [...] of his diabetes is improved Muscle weakness 13905517 M62.81 He has muscle weakness and he needs physical therapy to work with gait strength balance coordinati on and coreStatus is not where it should be right now but withWe are going to set him up with physical therapy as an outpatient as opposed to coming to his home Chronic ki dney disease stage 3B 632338216 N18.32 Patient's creatinine has been elevated slightlyHi s creatinine went from 1.5-2.0 we need to have a stay hydrated we will watch this closelyStnoe mart has deteriorat ed Type 2 isaias betes mellitus without complication 086259595 E11.9 His A1c went from 8.5-11We will check this in 6 weeks at which point we may need to start insulinI think he would do very well with mounjaroWe will see how the cost works and when he can do [id number] MD MARCELINO Krishnamurthy [address] [place] [address] 06/15/2022 13:33:21 06/15/2022 14:31:55 Wound of skin 591643226 T14.8XXA His wounds on his leg are improving he is seeing wound management Status is improving wounds are healing Osteoarthritis 334564030 M19.90 Uncontroll ed type 2 diabetes mellitus 972625033 E11.65 Patient sugars are running pretty much [...] PT GIVEN TOUJEO SAMPLE (300 UNITS/ML)L OT# [id number]: 03-18-2023 His diabetes is not controlled he [...] but it will be Immunodefi ciency disorder 626557418 D84.81 Due to his diabetes and peripheral vascular disease and age his immune system is fragile and he gets infections more easily also based on history he has been slow to heal and the lower extremitie s because of peripheral vascular disease that is the cause of his immune problem in his legs Morbid obesity 541740424 E66.01 I hope he can continue to lose weightPati ent has morbid obesity he did come down a weight is higher he now is 33.9 it is start Body mass index 30+ - obesity 401268120 Z68.35 weight issues discussed and informatio n [...] 38-33 status is not moving Essential hypertension 40399544 I10 His blood pressure is 126/84 his [...] 25 1 twice daily of tartrate Thrombophilia 160212168 D68.69 He takes anticoagul ation his blood count is affected little bit by that it is stableIs thrombophi lias because of his blood thinner it is stable [id number] Edgar Ramos MD [facility] [address] [place] [address] 06/24/2022 09:05:01 06/24/2022 10:31:15 Type 2 diabetes mellitus without complication 506977924 E11.9 Patient's sugar is improving slightly he is between 150 and 200Present ly he is on 6 units of Toujeo. It is actually 3 clicks because each click is 2 unitsStatu s is improving Vertigo 239789083 R42 At this point his status of the vertigo is ongoing and not improvedAt this point I would have him try valacyclov ir 500 once a day Idiopathic peripheral neuropathy 90635469 G60.9 With his peripheral neuropathy I think he would do fine to start thiamine B1 500 mgIn the form OF BENFOTIAMI NEHis status is not controlled yetFor physical therapy has helped him Peripheral vascular disease 752284110 I73.9 I am hoping to keep his [...] system is affected as well Morbid obesity 468602723 E66.01 I hope he can continue to lose weightPati ent has morbid obesity he did come down a weight is higher he now is 33.9 it is startHis weight is been coming down I am pleased that he is trying and working out it status is improving 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 470099710 L40.51 He does have psoriatic arthritic changes that are stable right nowThe psoriatic arthritis continues to plague him but he is stable and has been little change Thrombophilia 223408008 D68.69 He takes anticoagul ation his blood [...] well Chronic ki dney disease stage 3B 433595832 N18.32 Patient's creatinine has been elevated slightlyHi s creatinine went from 1.5-2.0 we need to have a stay hydrated we will watch this closelySta tus has deteriorat edHe has not gotten worse he stays hydrated he is stable 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 mellitus 8074861851 63886 E11.65 His hyperglyce jamie is improved with the use of his recent insulin Immunodefi ciency disorder 065414678 D84.81 He has immune deficiency disorder we will watch him status is not controlled at the present timeHe will watch for infection particular ly his legs which are slow to heal [id number] MD MARCELINO Krishnamurthy [address] [place], [place] [address] 08/18/2022 09:01:42 08/18/2022 10:05:03 Uncontrolled type 2 diabetes mellitus 073411174 E11.65 His sugars are not controlled at the present time he is still running above 150 fasting most of the time I think he was confused about how to control his sliding scaleSo we went over that again he is watching his diet his weight has come down somewhat about 40 pounds which is quite good Essential hypertension 18680350 I10 Pressure is 128/70 he seems status [...] daily and is stable without his Fatigue 85041475 R53.83 His fatigue is ongoing I think is from deconditio ron. He may have some prostatiti s a PSA would be appropriat e for that reason even though it seems farfetched is status is stable [id number] MD MARCELINO rKishnamurthy [place] [address] [place] [address] 10/10/2022 14:59:02 10/10/2022 16:32:15 Uncontrolled type 2 diabetes mellitus 080862765 E11.65 His sugars are not controlled at [...] be greatStatu s is improving Restless legs 89404033 G 25.81 We did give him instructio ns regarding restless leg syndromeHi s restless legs are stable they are improving Gout 33232321 M10.9 He needs a renewal of his medication s todayHe has not had any gout gout flareups or problems with gout since he has been on allopurino l.He appears more stable Essential hypertension 54680944 I10 Pressure is 128/70 he seems status [...] of the pressure is improved and stable [id number] Edgar Ramos MD [facility] [address] [place] [address] 06/26/2023 15:00:29 06/26/2023 16:33:28 Hyperglycemia 18556732 R73.9 Sugar is elevated he is stable Vitamin D deficiency 347 15850 E55.9 Vitamin D is stable he has neuropathy is stable Osteoarthritis 379569488 M19.90 Hydrochlor othiazide his arthritis is stable Atrial fibrillation 4943 6004 I48.91 He had atrial fibrillati on. He still suffers from takes his anticoagul ation the rate is controlled it is stablePati ent is status is improved and doing well Chronic ki dney disease stage 3B 971205008 N18.32 Patient's creatinine has been elevated slightlyHi s creatinine went from 1.5-2.0 we need to have a stay hydrated we will watch this closelySta tus has deteriorat edHe has not gotten worse he stays hydrated he is stableHe stays hydrated he was sick had to be [place] [facility] down to [facility] and then to [place] where he was hospitaliz ed with dehydratio n and electrolyt e imbalance he is now better this was several months agoHis kidney had gotten worse at 2.3 creatinine now which improved we will check it Dizziness 957801128 R42 The patient is dizziness status is [...] PLUSHe is not stable at present Gout 39447935 M10.9 He needs a renewal of his medication s todayHe has not had any gout gout flareups or problems with gout since he has been on allopurino l.He appears more stable Uncontroll ed type 2 diabetes mellitus 146236269 E11.65 His sugars are not controlled at [...] improving. We will check his A1c Thrombophilia 657186019 D68.69 He takes anticoagul ation his blood count is affected little bit by that it is stableIs thrombophi lias because of his blood thinner it is stableHis anticoagul ation is affecting his platelet agglutinin patient status is stable Morbid obesity 313522461 E66.01 I hope he can continue to lose weightPati ent has morbid obesity he did come down a weight is higher he now is 33.9 it is startHis weight is been coming down I am pleased that he is trying and working out it status is improving his weight has come down little bit Idiopathic peripheral neuropathy 43177146 G60.9 With his peripheral neuropathy I think he would do fine to start thiamine B1 500 mgIn the form OF BENFOTIAMI NEHis status is not controlled yetFor physical therapy has helped himHe will continue his vitamin Essential hypertension 17174236 I10 Pressure is 128/70 he seems status [...] improved and stable Gastroesop hageal reflux disease 155066751 K21.9 His GERD is controlled with pantoprazo le he knows when to take it it is stable Restless legs 62821591 G 25.81 We did give him instructio ns regarding restless leg syndromeHi s restless legs are stable they are improving status is improved and stable Allergic rhinitis 608188 04 J30.9 His allergies are controlled with Claritin and montelukas t Hypothyroidism 64794990 E03.9 He takes his thyroid medicine we will check the TSH it is stable 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 764331559 L40.51 His psoriasis continues but it is stable 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 5264844146 08 E11.22 His kidney function has bounced up is not where it was is not stable yet we will recheck it Immunodefi ciency disorder 161304304 D84.81 His immune deficiency is stable Type 2 isaias betes mellitus with peripheral angiopathy 864046895 E11.51 His peripheral angiopathy is improved Heart failure 92730014 I 50.9 His heart failure has improved his medicines have helped in particular the Jardiance it is stabilized [id number] MD MARCELINO Krishnamurthy [address] [place] [address] 07/27/2023 10:21:43 07/27/2023 11:29:54 Cellulitis of toe of right foot 6527631233 8723818 L03.031 His toe looks quite nasty bleeding [...] disorder due to type 2 diabetes mellitus 422118370 E11.51 He has severe peripheral diminished blood flow dorsalis pedis and posterior tibialis both sides is low his diabetes is the cause. His status is getting worse I think he might need an amputation before this is done Peripheral vascular disease 423480458 I73.9 Patient has peripheral vascular disease with decreased dorsalis pedis and posterior tibialisSt atus is getting worse not healing swollen [id number] Edgar Ramos MD [facility] [address] [place] [address] 09/07/2023 07:43:28 09/07/2023 08:26:05 Chronic kidney disease stage 3B 705123805 N18.32 Patient's creatinine has been elevated slightlyHi s creatinine went from 1.5-2.0 we need to have a stay hydrated we will watch this closelySta brittny has deteriorat edHe has not gotten worse he stays hydrated he is stableHe stays hydrated he was sick had to be [place] in [facility] down to [facility] and then to [place] where he was hospitaliz ed with dehydratio n and electrolyt e imbalance he is now better this was several months agoHis kidney had gotten worse at 2.3 creatinine now which improved we will check itHis microalbum in is 2400His A1c is 11 Uncontroll ed type 2 diabetes mellitus 501939264 E11.65 His sugars are not controlled at [...] his A-fib but the rate is controlled [id number] Edgar Ramos MD [facility] [place] [address] [place] [address] 04/25/2024 13:14:48 04/25/2024 15:07:47 Counseling 234083136 Z71.9 Patient received [facility] Value Based Patient Guide today. 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 573436139 I83.013 His varicose veins have improved since he lost weight Chronic ul cer of ankle 615430993 L97.319 He has got chronic ulcer in his ankle which is improving 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 Chronic ulcer of foot 42 2830775 L97.509 His ankle ulcer is healed Chronic ul cer of skin of lower leg 3095984961 0037471 L97.822 Chronic ulcer of foot 42 2274733 L97.511 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 The atheroscle rosis lower extremitie s good Hyperlipidemia 90075200 E78.5 Hyperlipid emia has improved with weight loss Health Concerns Section Related Observation LastModified by Organization Detai ls LastModified Time None Recorded Concern Status LastModified by Organization Details LastModified Time None Recorded Advance Directives Directive Y: Payers Insurance Date Sequence Insurance Name Policy Number Policy Del Toro Covered Member ID Del Toro Member ID Guarantor Name 05/24/2024 2 [employer] (MEDICARE SUPPLEMENT) Richard Black [id number] Richard Black 05/24/2024 1 [place] Richard Noe Wanye [id number] Richard Black Notes Date Note Type [...] some antibiotic then he was shipped to [facility] in [place] he was there for 4 days while [...] the shuffling of the care up in [place] and by [place] as well So he [...] his ambulation is better Today is a uyea-yr-bgdy meeting for that in the office Edgar Ramos MD [address] [address], [place], [address], [facility], [facility] 10/11/2022 08:02:53 4 text/html ANNUAL [...] No or Minimal depression, (0). Imported [facility] on 4Patient has numerous things to go over yesterday reportedHe is going to have surgery with Dr. Barbara Chaudhari [facility] his [facility] on tramadolHe presently [...] some antibiotic then he was shipped to [facility] in [place] he was there for 4 days while [...] the shuffling of the care [facility] in [place] [facility] as well So he has a lot [...] his ambulation is better Today is a tuvy-fx-btqw meeting for that in the office Edgar Ramos MD [address] [address], [place], [address], [facility] 06/27/2023 10:03:14 4 text/html The [...] metatarsal area He [facility]eds his refill on tramadolHe presently [...] some antibiotic then he was shipped to [facility] in [place] he was there for 4 days while [...] the shuffling of the care up in [place] and by [place] [facility] as well So he has a lot [...] his ambulation is better Today is a greq-wa-wlpm meeting for that in the office Edgar Ramos MD [address] [address], [place], [address], [facility], [facility] 07/30/2023 13:54:29 4 text/html Patient [...] metatarsal area He [facility]eds his refill on tramadolHe presently [...] some antibiotic then he was shipped to [facility] in [place] he was there for 4 days while [...] the shuffling of the care up in [place] and by [place] as well So he [...] his ambulation is better Today is a bxtn-xp-qvmy meeting for that in the office Edgar Ramos MD [address] [address], [place], [address], [facility], [facility] 09/07/2023 09:02:11 4 text/html It [...] some antibiotic then he was shipped to [facility] in [place] he was there for 4 days while [...] the shuffling of the care up in [place] and by [place] as well So he [...] his ambulation is better Today is a wlgd-tu-ypnm meeting for that in the office QUALITY MEASURE QUESTIONNAIRE PRAPARE Screening Patient declined PRAPARE Screener 04/25/2024 Imported from [facility] on 04/25/2024 Edgar Ramos MD [address] [address], [place], [address], [facility], [facility] 04/27/2024 13:58:14
--- OUTSIDE RECORDS SUMMARY | 2024-12-18 11:44 | XMS_ITS | Clinical Summary ---
Author Organization 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 Counseling, unspecified [...] Assessment & Plan (10/21/2022 11:36 AM EDT): [id number]= 6 age, HTN, CHF, DM and PAD Continue eliquis 2.5 mg bid, and metoprolol 25 mg bid- heart rate well controlled Peripheral arterial occlusive disease 01/24/2022 Aortic valve stenosis 01/24/2022 Acquired hypothyroidism 11/30/2021 Cellulitis of lower leg 11/30/2021 Hyperglycemia 11/30/2021 Right lower lobe pneumonia 11/30/2021 Atrial fibrillation 11/29/2021 Assessment & Plan (10/21/2022 9:24 AM EDT): [id number] score is 4 due to age, hypertension, [...] Description 10/28/2024 11:45 AM EDT Office Visit [facility] [address] [place] [address] Lonny Liu MD PAD (peripheral [...] age to complete this topic Insurance MEDICARE [facility] Care Teams Applications Systems Analyst Relationship Specialty Start Date End Date Zhao Sorensen MD [address] [place] [address] PCP - General 02/19/22
--- OUTSIDE RECORDS SUMMARY | 2024-12-18 11:44 | XMS_ITS | Continuity of Care Document ---
Author Organization [facility] Address [address] [address] [place] [address] Phone [phone] Care Team Providers Care Photographic Equipment Assembler Name Role Phone . DOCTOR FORMS, COPIES INTEREST Care Team Inform ation Investment Banking Manager Unavailable
--- OUTSIDE RECORDS SUMMARY | 2024-12-18 11:44 | XMS_ITS | Patient Health Record ---
Author Organization [facility] Silvio brown Billing Info Address [address] [place], [place] [address] [address] Care Team Providers Care Life Skills Worker Name Role Phone GINNA BARRETO Unavailable [phone] GINNA BARRETO M.D. Unavailable Unavailable Allergies No [...] day for 30 day(s) Active CO-Q 10 [place]-3 Fish Oil Not-Taking Aspirin 325 MG 1 [...] Problem Status W/U Status Risk Notes Problem [id number] Bursitis of left shoulder (M75.52) Active confirmed Left subacromia l bursa injection from a lateral approach on 08/13/2020-perez kamara Discussed rcrgj-sq-umvtgl activities to work on at home Problem 510473907 Psoriatic arthritis (L40.50) Active confirmed History of psoriatic arthritis. No active synovitis noted on exam and normal inflammatory markers. Prior treatment with sulfasalazine (? Benefit, expensive), leflunomide (diarrhea). X-rays of the hands and feet showed no specific psoriatic arthritis changes other than possible minimal erosive change right second MCP Problem 98180931 Lumbosacral spondylosis without myelopathy (M47.817) Active confirmed MRI of the lumb ar spine from 07/27/2016 showed multilevel DDD/DJD changes with severe spinal stenosis at L2-3 through L5-S1 and biforaminal stenosis L2-3 to L5-S1.. Benefit with tramadol. Physical therapy in [place] in summer 2015 and summer 2016. Prior acupuncture treatments-questi onable benefit. Benefit with chiropractic treatments and Ultram. 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 Sparing of the lateral compartments. Severe narrowing of the lateral patellofemoral compartments left greater than right. Minimal chondrocalcinosis left knee. R TKA on 02/28/20. Problem 600717885 Localized primary osteoarthritis of both hands (M19.041) Active confirmed OA of the hands , mainly at the first CMC joint and DIPs. 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 Moderate right and mild to moderate left talonavicular arthritis, mild bilateral arthritic change first MTP joints, moderate bilateral plantar calcaneal spurs Problem 777683771 Bursitis of both shoulders (M75.51) Active confirmed bursitis sympto ms intermittently. Benefit with prior injections. Possible biceps tendon tear/ruptures based on exam findings. Preserved range of motion on exam. Doing well today Problem [id number] Carpal tunnel syndrome on left (G56.02) Active confirmed utilizing carp al tunnel bracing at night Problem 07491542 Chronic gouty arthritis (M1A.00X0) Active confirmed History [...] MEDICARE [place] PART B [address] [facility] DIANA JACINTO [id number] Richard Black Self - patient is the insured 8 [facility] MEDICARE SUPP ALL [place] [address] [facility] [place] [id number] Richard Black Self - patient is the [...] 95 & 96 Hospitalization History Reason Date(Month/Year) [facility]- Fall 02/27/2023 [facility]- Septic arthritis o f clavicle and breast bone 10/2021
== END 2024-12-18 11:41 | disposition home or self-care (01) ==
LOC: WC 11:40
PROVIDERS: PCP Family Medicine; Visit Provider Physician Assistant
DX: E11.621 Type 2 diabetes mellitus with foot ulcer (principal); L97.512 Non-pressure chronic ulcer of other part of right foot with fat layer exposed; L97.514 Non-pressure chronic ulcer of other part of right foot with necrosis of bone
CPT/HCPCS: G0463

== ENCOUNTER 2025-01-01 11:27 | Outpatient (OUT) | payer MEDICARE, SELFPAY ==
--- OUTSIDE RECORDS SUMMARY | 2007-08-22 03:53 | XMS_ITS | Continuity of Care Document ---
Author Organization [facility] Address [facility] [place] [address] Phone Care Team Providers Care Candle Maker Name Role Phone Sera COOPER, Jama Unavailable Unavailable Advance Directives Directive Yes / No Effective Date File Name No Information Encounters Encounter Description Practice Location Reason(s) For Visit Diagnoses Date Provider Providers Copied on Encounter [facility] , [address] [place] [address], [id number], tel:[phone] MARIELY Siddiqui No Information Sera Yun. [address] [place] [address], [id number], [place]. tel:[phone] Referring Provider: Jama Zamora MD, [address] [place] [address], [facility]. tel:[phone] Family History Family Member Type Diagnosis Age At Onset No Information Payers Payer name Insurance type Covered republican ID Authoriza tion(s) Medicare [facility] [id number] Medical [facility] [id number] Social History Type Description Quantity Date Captured Comments Sex Male Smoking Status No Information Chief Complaint And Reason For Visit No Information Reason For Referral Reason For Referral No Information History Of Present Illness Encounter Date Complaint History Of Prese nt Illness No Information Functional Status Date Functional Assessmen t No Information Instructions Date Instruction Additional Infor mation No Information Assessments Type Assessment Date No Information Patient Care Teams Name Effective Dates (start - stop) Status Members No Information
--- OUTSIDE RECORDS SUMMARY | 2023-08-28 10:20 | XMS_ITS ---
Author Organization [facility] Billing Info Address [address] [place] [address] [place] [address] Care Team Providers Care Division Leader Name Role Phone GINNA BARRETO Unavailable [phone] GINNA BARRETO M.D. Unavailable Unavailable Allergies No [...] MG 2 Orally Daily Not-Taking CO-Q 10 [place]-3 Fish Oil Not-Taking Fluticasone Propionate Not-Taking Fish [...] Problem Status W/U Status Risk Notes Problem [id number] Carpal tunnel syndrome on left (G56.02) Active confirmed utilizing carpal tunnel bracing at night Vital Signs Height 71 in 08/28/2023 Weight 236.0 lbs 08/28/2023 BMI 32.91 kg/m2 08/28/2023 Blood pressure systolic 115 mm Hg 08/28/19 24 Blood pressure diastolic 73 mm Hg 024 Heart Rate 84 /min 08/28/2023 Respiratory Rate 17 /min 08/28/2023 Oximetry 95 08/28/2023 Encounters Encounter Location Date Provider Diagnosis [id number] [facility] [place] [facility] [address] [place] [id number] 08/28/2023 GINNA BARRETO Lumbosacral spondylosis without myelopathy [...] was encouraged to have his providers in [place] check uric acid periodically- Continue to monitor [...] was encouraged to have his providers in [place] check uric acid periodically- Continue to monitor labs on a regular basis to monitor for any drug related toxicity.- Patient will contact me for any questions or concerns prior to scheduled follow-up Next Appt Details Follow Up: upon return to [facility], Reason: arthritis Progress Notes * Richard BOYKINDOB:1940 ([age] yo M)Acc No.[id number]:08/28/2023 PROGRESS NOTE Patient: Richard MATHEWS Provider: Kumar BARRETO MD :1940 A ge:83 Y S ex:Male Date:08/28/2023 C #:[id number] Address:[address] [place] [address] Dr Gill [facility] Subjective: * Chief Complaints: * F ollow-up [...] He continues with therapy activities for his back.� He states that he is doing well. [...] HEUMATOLOGY: Constitutional: N egative for:, fever, chills, fatigue.�Cardiovascular: P ositive for: Diagnosis of atrial fibrillation. [...] 02/27/2020 * Hospitalization[facility] stic [facility]- Fall 02/27/2023 * Family History: I n [...] tablet Orally every 12 hrs CO-Q 10 [place]-3 Fish Oil Colchicine 0.6 MG Tablet 1 [...] Orally every 12 hrs Not-Taking CO-Q 10 [place]-3 Fish Oil Not-Taking Colchicine 0.6 MG Tablet [...] Minimal chondrocalcinosis left knee. R TKA on 9/11/20. 6 . Psoriatic arthritis - L40.50, History [...] care * Procedure Codes: * Preventive Medicine: [place] PAF (Patient Assessment Form): F all Risk [...] * Follow Up: u candis return to [place] (Reason: arthritis) * Care Plan Details* * Sign off status: Completed true * Provider: Kumar BARRETO MD Date: 0 08/28/2023 Generated for Kristi torres/Stephanie/Jimitting on: 0 01/01/2025 11:29 AM EDT History and Physical Notes * [...]
--- OUTSIDE RECORDS SUMMARY | 2024-09-23 09:00 | XMS_ITS ---
Author Organization The [facility] in [place] Address [address] [place] [address] Care Team Providers Care Dinkey Operator Slag Name Role Phone None, Unknown or Primary Care Provider Unavailab Haritha Hurley Unavailable [phone] REASON FOR VISIT nails lm to cancel ; lm with appt Encounters Encounter Location Date Provider Diagnosis [facility] (PODIATRY) [address] [place] [address] [place] [address] 09/23/2024 Haritha Mistry Plan Of Treatment No Information Progress Notes * Richard BOYKINDOB:1940 ([age] yo M)Acc No.[id number]:09/23/2024 UNLOCKED PROGRESS NOTE Nurse Visit Patient: Richard MATHEWS Provider: Raul Mistry PA-C :1940 A ge:84 Y S ex:Male Date:09/23/2024 Address:[address] [place], [place] [id number] Pcp:Unknown or None Subjective: * Chief Complaints: * 1 . Nails lm to cancel ; lm with appt. * Medical History: Objective: * Vitals: Assessment: Plan: * Treatment: * * Electronic signature of Aundrea Mistry PA-C on 01/01/2025 at 11:30 AM EDT Sign off status: Pending Visit Status: O FF CANC (OFFICE CANCEL) * Provider: Raul Mistry PA-C Date: 0 09/23/2024 Generated for Ponchoi ng/Faisaurag/eTransmitting on: 0 01/01/2025 11:30 AM EDT
--- OUTSIDE RECORDS SUMMARY | 2025-01-01 11:29 | XMS_ITS | Patient Health Record ---
Author Organization [facility] Silvio brown Billing Info Address [address] [place], [place] [address] [address] Care Team Providers Care Analytical Scientist Name Role Phone GINNA BARRETO Unavailable [phone] GINNA BARRETO M.D. Unavailable Unavailable Allergies No [...] day for 30 day(s) Active CO-Q 10 [place]-3 Fish Oil Not-Taking Aspirin 325 MG 1 [...] Problem Status W/U Status Risk Notes Problem [id number] Bursitis of left shoulder (M75.52) Active confirmed Left subacromia l bursa injection from a lateral approach on 08/13/2020-perez kamara Discussed [id number] activities to work on at home Problem [id number] Psoriatic arthritis (L40.50) Active confirmed History of psoriatic arthritis. No active synovitis noted on exam and normal inflammatory markers. Prior treatment with sulfasalazine (? Benefit, expensive), leflunomide (diarrhea). X-rays of the hands and feet showed no specific psoriatic arthritis changes other than possible minimal erosive change right second MCP Problem [id number] Lumbosacral spondylosis without myelopathy (M47.817) Active confirmed MRI of the lumb ar spine from 07/27/2016 showed multilevel DDD/DJD changes with severe spinal stenosis at L2-3 through L5-S1 and biforaminal stenosis L2-3 to L5-S1.. Benefit with tramadol. Physical therapy in [place] in summer 2015 and summer 2016. Prior acupuncture treatments-questi onable benefit. Benefit with chiropractic treatments and Ultram. 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 Sparing of the lateral compartments. Severe narrowing of the lateral patellofemoral compartments left greater than right. Minimal chondrocalcinosis left knee. R TKA on 02/28/20. Problem [id number] Localized primary osteoarthritis of both hands (M19.041) Active confirmed OA of the hands , mainly at the first CMC joint and DIPs. 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 Moderate right and mild to moderate left talonavicular arthritis, mild bilateral arthritic change first MTP joints, moderate bilateral plantar calcaneal spurs Problem [id number] Bursitis of both shoulders (M75.51) Active confirmed bursitis sympto ms intermittently. Benefit with prior injections. Possible biceps tendon tear/ruptures based on exam findings. Preserved range of motion on exam. Doing well today Problem [id number] Carpal tunnel syndrome on left (G56.02) Active confirmed utilizing carp al tunnel bracing at night Problem [id number] Chronic gouty arthritis (M1A.00X0) Active confirmed History [...] MEDICARE [place] PART B [address] [facility] DIANA JACINTO [id number] Richard Black Self - patient is the insured 8 [employer] MEDICARE SUPP ALL [place] [address] [facility] [place], [place] [id number] Richard Black Self - patient is the [...] 95 & 96 Hospitalization History Reason Date(Month/Year) [facility]- Fall 02/27/2023 [facility]- Septic arthritis o f clavicle and breast bone 10/2021
--- OUTSIDE RECORDS SUMMARY | 2025-01-01 11:30 | XMS_ITS | Data Portability ---
Author Organization [facility] [employer] [facility] [employer], [place], [facility] Address [facility] [place] [address] Care Team Providers Care Blower Room Attendant Name Role Phone EDGAR RAMOS Primary Care Provider EDGAR RAMOS Referring Provider [phone] Assessment Encounter Date Assessment Date Assessment LastModified by Organization Details LastModified Time 07/27/2023 07/27/2023 Cellulitis foot Not available 07/30/2023 13:49:56 Plan of Treatment Reminders Order Date Submit Date Provider Last Modified By Organization Details Last Modified Time Details Appointments None recorded. Lab HbA1c (hemoglobin A1c), blood 2023 [facility], [address] [place], [address], 07:10:35 vitamin D, 25-hydroxy, total, serum 2023 [facility], [address] [place], [address], 07:10:36 Referral None recorded. Procedures None recorded. Surgeries None recorded. Imaging None recorded. Medication Orders glimepiride 4 mg tablet 2023 024 [facility], [facility] [address], [facility] [address], [place], [place], [id number], 4 17:13:18 Jardiance 25 mg tablet 2023 024 [facility], [address], [address], [place], [place], [id number], 4 17:13:18 Toujeo Max U-300 SoloStar 300 unit/mL (3 mL) subcutaneou s insulin pen 2023 024 [facility], [address], [address], [place], [place], [id number], 4 17:13:18 Jardiance 25 mg tablet 2023 024 [facility], [address], [address], [place], [place], [id number], 4 09:23:33 Toujeo Max U-300 SoloStar 300 unit/mL (3 mL) subcutaneou s insulin pen 2023 024 [email or web address] 146 [facility], [address], [address], [place], [place], [id number], 4 14:21:24 Eliquis 5 mg tablet 2023 024 [facility], [address], [address], [place], [place], [id number], 4 09:23:33 allopurinol 300 mg tablet 2023 024 MARIBELL [facility], [address], [address], [place], [place], [id number], 4 10:03:15 metoprolol tartrate 25 mg tablet 2023 024 MARIBELL [facility], [address], [address], [place], [place], [id number], 4 10:03:12 montelukast 10 mg tablet 2023 024 MARIBELL [facility], [address], [address], [place], [place], [id number], 4 10:03:14 tramadol 50 mg tablet 2023 024 MARIBELL [facility], [address], [address], [place], [place], [id number], 4 10:03:16 Claritin 10 mg tablet 2023 024 MARIBELL [facility], [address], [address], [place], [place], [id number], 4 13:41:06 ropinirole 2 mg tablet 2023 024 MARIBELL [facility], [address], [address], [place], [place], [id number], 4 10:03:13 glimepiride 4 mg tablet 2023 024 MARIBELL [facility], [address], [address], [place], [place], [id number], 4 10:03:13 Jardiance 25 mg tablet 2023 024 MARIBELL [facility], [address], [address], [place], [place], [id number], 4 10:03:08 Toerich KingoStcindy U-300 Insulin 300 unit/mL (1.5 mL) subcutaneou s pen 2023 024 [email or web address] 146 [facility], [address], [address], [place], [place], [id number], 4 13:10:11 Eliquis 5 mg tablet 2023 024 MARIBELL [facility], [address], [address], [place], [place], [id number], 4 10:03:09 furosemide 40 mg tablet 2023 024 MARIBELL [facility], [address], [address], [place], [place], [id number], 4 10:03:14 lisinopril 2.5 mg tablet 2023 024 MARIBELL [facility], [address], [address], [place], [place], [id number], 4 10:03:10 lisinopril 10 mg-hydrochl orothiazide 12.5 mg tablet 2023 024 MARIBELL [facility], [address], [address], [place], [place], [id number], 4 13:57:00 pantoprazol e 40 mg tablet,dulce yed release 2023 024 MARIBELL [facility], [address], [address], [place], [place], [id number], 4 10:03:14 levothyroxi ne 50 mcg tablet 2023 024 MARIBELL [facility], [address], [address], [place], [place], [id number], 4 10:03:11 allopurinol 300 mg tablet 2022 023 [facility], [address], [address], [place], [place], [id number], 3 12:59:14 hydrochloro thiazide 12.5 mg tablet 2022 023 [email or web address] [facility], [address], [address], [place], [place], [id number], 4 13:50:31 metoprolol tartrate 25 mg tablet 2022 023 [email or web address] [facility], [address], [address], [place], [place], [id number], 3 12:59:14 montelukast 10 mg tablet 2022 023 [email or web address] [facility], [address], [address], [place], [place], [id number], 3 12:59:14 ropinirole 2 mg tablet 2022 023 [facility], [address], [address], [place], [place], [id number], 3 12:59:14 glimepiride 4 mg tablet 2022 023 [facility], [address], [address], [place], [place], [id number], 3 12:59:14 Jardiance 25 mg tablet 2022 023 [email or web address] [facility], [address], [address], [place], [place], [id number], 3 12:59:14 Toujeo Max U-300 SoloStar 300 unit/mL (3 mL) subcutaneou s insulin pen 2022 023 [email or web address] [facility], [address], [address], [place], [place], [id number], 3 12:59:14 Eliquis 5 mg tablet 2022 023 [facility], [address] [place] [address], [address], [id number], 3 12:59:14 furosemide 40 mg tablet 2022 023 [facility], [address] [place] [address], [facility] [address], [place], [place], [id number], 3 12:59:14 levothyroxi ne 50 mcg tablet 2022 023 [facility], [address], [address], [place], [place], [id number], 3 12:59:14 lisinopril 2.5 mg tablet 2022 023 [facility], [address] [place] [address], [address], [place], [place], [id number], 3 12:59:14 Patient TargetsNo targets recorded. Patient Instructions Encounter Date Encounter Id Patient Instructions Last Modified By Organization Details Last Modified Time 06/26/2023 [id number] type 2 diabetes: care instructions Not available 06/27/2023 10:03:04 atrial fibrillation: care instructions Not available 06/27/2023 10:03:05 hypothyroidism: care instructions Not available 06/27/2023 10:03:05 09/07/2023 [id number] type 2 diabetes: care instructions Not available 09/07/2023 09:23:33 04/25/2024 [id number] high cholesterol : care instructions Not available [...] with diabe susan: <7.0 Not Available [facility] ([facility]) [address] [facility], [place], [address], 07/08/2023 07:10:35 07/07/19 24 07/08/2023 VITAM IN [...] um and D. Clay hutchinson [place]: [facility] . 2. Nury ayala [place], [place] holder [place], Jessica off-F errar i HANSON, et al. Evalu ation , treat ment, and preve ntion of vitam in D defic iency : an Endoc rine Socie ty clini fernando pract ice guide line. JCEM. 2010; 96(7) :1911 -30. Not Available [facility] ([facility]) [address] [facility], [place], [address], 07/08/2023 07:10:36 Result Notes None recorded. Problems Name Problem SNOMED Code Status Onset Date Resolution Date Notes Provider Name and Address Organization Details Recorded Time Gout 41047203 Active 2021 Not Available [facility] 4 03:27:48 Tinea pedis 4794137 Active 2021 Not Available [facility] 4 03:27:48 Psoriasis 5027371 Active 2021 Not Available [facility] 4 03:27:48 Disorder of thyroid gland 15330699 Active 2021 Not Available [facility] 4 03:27:47 Dizziness 142499580 Active 2021 Not Available [facility] 4 03:27:47 Wound of skin 782906232 Active 2021 Not Available [facility] 4 03:27:47 Atrial fibrillat ion 34028845 Active 2021 Not Available [facility] 4 03:27:48 Thromboph bj 884123080 Active 2021 Not Available [facility] 4 03:27:47 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 975429590 Active 2021 Not Available [facility] 4 03:27:47 Morbid obesity 636691793 Active 2021 Not Available [facility] 4 03:27:47 Periphera l vascular disease 266412561 Active 2021 Not Available [facility] 4 03:27:47 Muscle weakness 40585312 Active 2021 Not Available [facility] 4 03:27:47 Chronic kidney disease stage 3B 770276213 Active 2021 Not Available [facility] 4 03:27:48 Osteoarth ritis 053999486 Active 2021 Not Available [facility] 4 03:27:47 Immunodef iciency disorder 383554693 Active 2022 Not Available [facility] 4 03:27:47 Idiopathi c periphera l neuropath y 68316999 Active 2022 Not Available [facility] 4 03:27:47 Vertigo 575871308 Active 2022 Not Available [facility] 4 03:27:47 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 79082208996 9109 Active 2022 Not Available [facility] 4 03:27:47 Fatigue 51727237 Active 2022 Not Available [facility] 4 03:27:48 Allergic rhinitis 55218205 Active 2023 Not Available [facility] 4 03:27:48 Hypothyro idism 54692978 Active 2023 Not Available [facility] 4 03:27:48 Vitamin D deficienc y 31726666 Active 2023 Not Available [facility] 4 03:27:47 Hyperglyc emia 92917185 Active 2023 Not Available [facility] 4 03:27:48 Heart failure 76989357 Active 2023 Not Available [facility] 4 03:27:48 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 mellitus 49513099334 8 Active 2023 Not Available [facility] 4 03:27:48 Gastroeso phageal reflux disease 348080158 Active 2023 Not Available [facility] 4 03:27:47 Celluliti s of toe of right foot 76076093129 508731 Active 2023 Not Available [facility] 4 03:27:47 Periphera l circulato ry disorder due to type 2 diabetes mellitus 724214316 Active 2023 Not Available [facility] 4 03:27:48 Chronic ulcer of skin of lower leg 70556664649 461222 Active 2023 Edgar Ramos MD [address], [place], [address] , [facility], [facility] 4 13:53:48 Edema of lower extremity 746162339 Active 2023 Edgar Ramos MD [address], [place], [address] , [facility], [facility] 4 13:53:58 Chronic ulcer of ankle 556937424 Active 2023 Edgar Ramos MD [address] [facility] [address], [place], [address] , [facility], [facility] 4 13:54:18 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 Active 2023 MD Deisi Krishnamurthy[address] [facility] [address], [place], [address] , [facility], [facility] 4 13:54:25 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 470120033 Active 2023 MD Deisi Krishnamurthy[address] [facility] [address], [place], [address] , [facility], [facility] 4 13:55:05 Chronic ulcer of foot 270298167 Active 2023 MD Farzaneh Krishnamurthy [address], [place], [address] , [facility], [facility] 13:55:06 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 MD Farzaneh Krishnamurthy [address], [place], [address] , [facility], [facility] 4 13:55:08 Type 2 diabetes mellitus 36561328 Active 2023 MD Farzaenh Krishnamurthy [facility] [address], [place], [address] , [facility], [facility] 4 13:55:13 Counselin g Active 2023 MD Farzaneh Krishnamurthy [address], [place], [address] , [facility], [facility] 4 13:55:17 Hyperlipi demia 30993735 Active 2023 MD Farzaneh Krishnamurthy [address], [place], [address] , [facility], [facility] 4 13:57:52 Type 2 diabetes mellitus 91106505 Completed 201806/20/2019 MD Farzaneh Krishnamurthy [facility] [address], [place], [address] , [facility] [employer], [place] 4 13:55:13 Body mass index 40+ - severely obese 935507051 Active 2018 Not Available [facility] 4 03:27:48 Essential hypertens ion 60277866 Active 2018 Not Available [facility] 4 03:27:48 Uncontrol led type 2 diabetes mellitus 654552724 Active 2019 Not Available [facility] 4 03:27:48 Body mass index 30+ - obesity 529247614 Completed 201908/24/2020 Edgar Ramos MD [address], [place], [address] , [facility] - [facility], [facility] 1 18:32:07 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 261226655 Active 2020 Not Available [facility] 4 03:27:47 Restless legs 09233536 Active 2020 Not Available [facility] 4 03:27:47 Influenza vaccine needed 18493990655 06 Active 2020 Not Available [facility] 4 03:27:47 Diet education Active 2020 Not Available [facility] 4 03:27:47 Obesity 070022886 Active 2020 Not Available [facility] 4 03:27:48 Body mass index 30+ - obesity 898926848 Active 2020 Not Available [facility] 4 03:27:47 Adult health examinati on Active 2020 Not Available [facility] 4 03:27:47 Notes:Some problems listed i n Documents: #[id number], #[id number], #[id number], #[id number] could not be added to this patient's chart. Please review these documents and add these problems to the patient's chart manually as needed. Problem Notes None recorded. Procedures Surgical History Date Name Laterality Status Provider Name and Address Organization Details Recorded Time 06/26/19 24 Quality Functional Assessment completed Tami Adler [facility], [facility] 06/26/2023 12:01:17 06/26/19 24 Quality Medication Reviewed and Updated completed Tami Adler [facility], [facility] 06/26/2023 12:01:17 06/26/19 24 Medicare AWV Questionnaire completed Tami Adler [facility], [facility] 06/26/2023 12:01:25 06/26/19 24 Quality BMI with follow up completed Tami Adler [facility], [facility] 06/26/2023 12:01:17 06/26/19 24 Quality Advanced Care Planning completed Tami Adler [facility], [facility] 06/26/2023 12:01:17 06/26/19 24 Quality Incontinence Screening completed Tami Adler [facility], [facility] 06/26/2023 12:01:17 06/26/19 24 Medicare AWV-Screening Schedule completed Tami Adler [facility], [facility] 06/26/2023 12:01:17 06/26/19 24 Quality Fall Risk Assessment completed Tami Adler [facility], [facility] 06/26/2023 12:01:17 10/11/19 23 Quality Medication Reviewed and Updated completed Jeane Wheatley [facility], [facility] 10/10/2022 15:21:28 10/11/19 23 Quality Pain Screening positive Pain completed Jeane Wheatley [facility], [facility] 10/10/2022 15:23:22 08/19/19 23 Quality Pain Screening No Pain completed Henrik Simmons [facility], [facility] 08/18/2022 07:54:07 08/19/19 23 Quality Medication Reviewed and Updated completed Henrik Simmons [facility], [facility] 08/18/2022 07:54:06 06/24/19 23 Quality Pain Screening No Pain completed Henrik Simmons [facility], [facility] 06/23/2022 13:12:32 06/24/19 23 Quality Medication Reviewed and Updated completed Henrik Simmons [facility], [facility] 06/23/2022 13:12:23 06/24/19 23 Quality Tobacco Non- User [facility], [facility] 06/23/2022 13:12:39 06/24/19 23 ophthalmic examination and evaluation completed Jeane Wheatley [facility], [facility] 06/25/2022 09:18:47 06/15/20 22 Quality Medication Reviewed and Updated completed Henrik Simmons [facility], [facility] 06/15/2022 12:43:13 06/15/20 22 Quality Pain Screening positive Pain [facility] 06/15/2022 13:40:36 05/20/20 22 Quality Medication Reviewed and Updated [facility], [facility] 05/19/2022 13:02:54 05/20/20 22 Quality Fall Risk Assessment Low Risk [facility], [facility] 05/19/2022 13:02:53 05/20/20 22 Quality Pain Screening positive Pain [facility], [facility] 05/20/2022 09:08:34 05/20/20 22 hemoglobin A1c measurement [facility], [facility] 06/03/2022 08:37:59 05/20/20 22 urine microalbumin/crea tinine ratio measurement [facility], [facility] 06/03/2022 08:39:38 04/20/20 22 Quality Functional Assessment [facility], [facility] 04/20/2022 07:49:52 04/20/20 22 Quality Medication Reviewed and Updated [facility], [facility] 04/20/2022 07:49:51 04/20/20 22 Quality Fall Risk Assessment Low Risk [facility], [facility] 04/20/2022 07:50:04 04/20/20 22 Quality Pain Screening positive Pain [facility], [facility] 04/20/2022 11:33:31 04/12/20 22 ophthalmic examination and evaluation completed Jeane Wheatley [facility], [facility] 04/23/2022 11:31:52 09/10/19 Quality Functional Assessment completed [facility], [facility] 09/07/2021 19:46:14 09/10/19 Quality Medication Reviewed and Updated completed [facility], [facility] 09/07/2021 19:46:14 09/10/19 Quality (DM or HTN ) BP Systolic < 130 completed [facility], [facility] 09/07/2021 19:47:39 09/10/19 Quality BMI with follow up completed [facility], [facility] 09/07/2021 19:46:14 09/10/19 Quality Advanced Care Planning completed [facility], [facility] 09/07/2021 19:46:14 09/10/19 Quality Incontinence Screening completed [facility], [facility] 09/07/2021 19:46:14 09/10/19 Medicare AWV - Screening Schedule completed [facility], [facility] 09/07/2021 19:46:14 09/10/19 Quality Fall Risk Assessment completed [facility], [facility] 09/07/2021 19:46:14 08/12/19 Quality Medication Reviewed and Updated completed [facility], [facility] 08/08/2021 15:29:10 08/12/19 22 Quality (DM or HTN ) BP Systolic < 130 completed [facility], [facility] 08/08/2021 15:29:08 08/12/19 22 Quality Pain Screening positive Pain completed [facility], [facility] 08/08/2021 15:29:21 07/12/19 22 diabetic retinopathy screening completed [facility], [facility] 07/13/2021 12:36:37 05/04/20 Quality Functional Assessment completed [facility], [facility] 05/03/2021 10:04:49 05/04/20 21 Quality Medication Reviewed and Updated completed [facility], [facility] 05/03/2021 10:04:49 05/04/20 21 Quality Fall Risk Assessment Low Risk completed [facility], [facility] 05/03/2021 10:04:49 05/04/20 21 Quality BMI with follow up completed [facility], [facility] 05/03/2021 10:04:49 05/04/20 21 Quality Advanced Care Planning completed [facility], [facility] 05/03/2021 10:04:49 05/04/20 21 Quality Incontinence Screening completed [facility], [facility] 05/03/2021 10:04:49 05/04/20 21 Medicare AWV - Screening Schedule [facility] 05/03/2021 10:04:49 04/06/20 21 Quality Functional Assessment completed [facility], [facility] 03/23/2021 19:15:31 04/06/20 21 Quality Medication Reviewed and Updated completed [facility], [facility] 03/23/2021 19:15:31 04/06/20 21 Quality Fall Risk Assessment Low Risk completed [facility], [facility] 03/23/2021 19:15:31 04/06/20 21 Quality BMI with follow up completed [facility], [facility] 03/23/2021 19:15:31 04/06/20 21 Quality Advanced Care Planning completed [facility], [facility] 03/23/2021 19:15:31 04/06/20 21 Quality Incontinence Screening completed [facility], [facility] 03/23/2021 19:15:31 04/06/20 21 Medicare AWV - Screening Schedule completed [facility], [facility] 03/23/2021 19:15:31 08/25/19 21 Quality Functional Assessment completed [facility]ikha Garcia [facility]PN [place] [facility] 08/24/2020 10:13:58 08/25/19 21 Quality Medication Reviewed and Updated completed Shikha Garcia [facility], [facility] 08/24/2020 10:13:58 08/25/19 21 Quality Fall Risk Assessment Low Risk completed Shikha Garcia [facility], [facility] 08/24/2020 10:13:58 08/25/19 21 Quality BMI with follow up completed Shikha Garcia [facility], [facility] 08/24/2020 10:13:58 08/25/19 21 Quality Advanced Care Planning completed Shikha Garcia [facility] 08/24/2020 10:13:58 08/25/19 21 Quality Incontinence Screening completed Shikha Garcia [facility] 08/24/2020 10:13:58 08/25/19 21 Medicare AWV - Screening Schedule completed Shikha Garcia [facility] 08/24/2020 10:13:58 03/19/20 19 Knee surgery completed Jeane Wheatley [facility], [facility] 04/06/2021 16:08:33 06/19/19 19 colonoscopy completed Edgar Ramos MD [address], [address], [facility] 04/06/2021 18:28:22 06/19/19 09 Joint replacement, other completed Henrik Simmons [facility] 05/19/2022 13:03:33 Imaging Results None recorded. [...] in Arterial blood by Pulse oximetry Systolic And Diastolic Provider Name and Address Organization Details Last Updated DateTime 4 97.9 [degF] 18 /min 177.8 cm 33.9 kg/m2 437389. 95 g 77 /min 97 % 97 % 138/74 mm[Hg] Francesca Yanez [facility], [facility] 4 15:34:17 Date Recorded Body height Body mass index (BMI) Body weight Body temperature Heart rate Respiratory rate Oxygen saturation Oxygen saturation in Arterial blood by Pulse oximetry Systolic And Diastolic Provider Name and Address Organization Details Last Updated DateTime 4 177.8 cm 34 kg/m2 549825. 11 g 97.4 [degF] 40 /min 18 /min 91 % 91 % 152/98 mm[Hg] Tami Adler [facility], [facility] 4 10:34:11 Date Recorded Body height Body mass index (BMI) Body weight Body temperature Respiratory rate Heart rate Oxygen saturation Oxygen saturation in Arterial blood by Pulse oximetry Systolic And Diastolic Provider Name and Address Organization Details Last Updated DateTime 4 177.8 cm 33.7 kg/m2 522871. 21 g 97 [degF] 19 /min 70 /min 93 % 93 % 164/88 mm[Hg] Tami Adler [facility], [facility] 4 07:52:35 Date Recorded Body height Body mass index (BMI) Body weight Body temperature Heart rate Oxygen saturation Oxygen saturation in Arterial blood by Pulse oximetry Systolic And Diastolic Provider Name and Address Organization Details Last Updated DateTime 3 177.8 cm 34.3 kg/m2 998920. 01 g 97.2 [degF] 77 /min 95 % 95 % 126/74 mm[Hg] Jeane Wheatley [facility], [facility] 3 15:23:01 Date Recorded Body height Body mass index (BMI) Body weight Body temperature Heart rate Oxygen saturation Oxygen saturation in Arterial blood by Pulse oximetry Systolic And Diastolic Provider Name and Address Organization Details Last Updated DateTime 4 177.8 cm 32.3 kg/m2 234335. 72 g 98.2 [degF] 79 /min 98 % 98 % 128/60 mm[Hg] Lala Flores [facility], [facility] 4 13:28:24 Social History Question Answer Notes LastModified by Organizat ion Details LastModified Time Tobacco Smoking Status Never Smoker Yumi dailey [facility], [facility] 04/17/2019 11:10:25 Do You Have An Advance Directive? Yes Information not available 05/08/2019 Is Your Home Air Conditioned? Yes [email or web address] Information not available 06/26/2023 Are You Currently Sexually Active With Anyone Who Has Traveled (within The Last 12 Weeks) To A Zika-affected Area? No [email or web address] Information not available 06/26/2023 Do You Wear A Helmet When Biking? No [email or web address] Information not available 06/26/2023 Is Blood Transfusion Acceptable In An Emergency? Yes [email or web address] Information not available 09/09/2021 What Is Your Level Of Caffeine Consumption? Occasional Information not available 05/08/2019 In The 14 Days Before Symptom Onset, Have You Had Close Contact With A Laboratory-confi rmed COVID-19 While That Case Was Ill? No [email or web address] Information not available 06/26/2023 In The 14 Days Before Symptom Onset, Have You Had Close Contact With A Person Who Is Under Investigation For COVID-19 While That Person Was Ill? No [email or web address] Information not available 06/26/2023 Have You Been To An Area Known To Be High Risk For COVID-19? No Information not available 06/26/2023 What Type Of Diet Are You Following? DIABETIC [email or web address] Information not available 06/26/2023 Which Illicit Or Recreational Drugs Have You Used? None Information not available 06/20/2019 Have You Processed Blood Or Body Fluids From An Ebola Virus Disease Patient Without Appropriate PPE? No [email or web address] Information not available 06/26/2023 Do You Reside In Or Have You Traveled To An Area Where Ebola Virus Transmission Is Active? No [email or web address] Information not available 06/26/2023 Education 2 Year College [email or web address] Informatio n not available 06/26/2023 Do You Have An Electrostatic Air Filter? No [email or web address] Information not available 06/26/2023 Have There Been Any Changes To Your Family Or Social Situation? No [email or web address] Information not available 06/26/2023 What Is The Fluoride Status Of Your Home? Unknown [email or web address] Information not available 06/26/2023 Are There Any Guns Present In Your Home? No [email or web address] Information not available 06/26/2023 Which Of Your Hands Is Dominant? Right [email or web address] Information not available 06/26/2023 Do You Have A Humidifier? No [email or web address] Information not available 06/26/2023 Where Do You Live? SingleLevelHouse [email or web address] Information not available 06/26/2023 Alcohol Use Less Than 1 Per Month Information not available 04/06/2021 Do You Smoke? 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 Yes [email or web address] Information not available 06/26/2023 What Was The Date Of Your Most Recent Tobacco Screening? 06/26/2023 [email or web address] Information not available 06/26/2023 What Is Your Relationship Status? [email or web address] Information not available 05/04/2021 Do You Use Your Seat Belt Or Car Seat Routinely? Yes Information not available 06/26/2023 Are You Sexually Active? No Information not available 08/24/2020 Do You Have Smoke And Carbon Monoxide Detectors In Your Home? Yes [email or web address] Information not available 06/26/2023 Are You Passively Exposed To Smoke? No [email or web address] Information not available 06/26/2023 Are There Any Smokers In Your House? No [email or web address] Information not available 06/26/2023 Do You Use Sunscreen Routinely? No [email or web address] Information not available 06/26/2023 Has Tobacco Cessation Counseling Been Provided? No [email or web address] Information not available 06/26/2023 How Many Years Have You Smoked Tobacco? 0 Information not available 08/24/2020 Do You Have Any Dietary Restrictions? No [email or web address] Information not available 06/26/2023 Sex: Male Functional Status Question Answer Note LastModified by Organizat ion Details LastModified Time Do you use any illicit or recreational drugs? No [email or web address] Information not available 06/26/2023 Do you or have you ever used any other forms of tobacco or nicotine? No Information not available 06/26/2023 What is your level of alcohol consumption? None Information not available 04/17/2019 Do you or have you ever used smokeless tobacco? Never used [email or web address] tobacco Information not available 05/08/2019 Are you currently employed? No [email or web address] Information not available 06/26/2023 Have you been exposed to chemicals or toxins? No [email or web address] Information not available 06/26/2023 Do you have transportation difficulties? No [email or web address] Information not available 06/26/2023 Are you able to care for yourself? Yes [email or web address] Information n ot available 06/26/2023 What is your exercise level? Moderate [email or web address] Information not available 06/26/2023 Mental Status None [...] Amputation (location) N Parkinson's N Paralysis N Cardiac Pacemaker/defibrillator N Headaches/Migraines N Nerve Damage / Neuropathy N Arthritis Y Sleep disorder/Insomnia N Infertility N Heart disease / Heart Attack N Crohn's Disease N HIV/AIDS N Stroke/TIA N Colon Problems N High Cholesterol N Serious Injuries N Kidney Disease N Memory Loss/Alzheimer's N High blood pressure Y Gallbladder disease N Congestive heart failure N Falls N Hormone Replacement N Blood Thinner Treatment N Alcohol Overuse N Nervous Breakdown N Burger's Esophagus N Anemia N Urinary Problems N Colon Polyps N Gastritis N Hospitalizations (other than operations) N Diabetes Y Back pain Y Rheumatic Fever N Bleeding Disorder N Cardiac Arrhythmias /irregular heart rat e N Osteopenia/Osteoporosis N Anxiety/Stress N Vision Problems N Asthma N Erectile / Sexual Dysfunction N Ostomies (location) N Seizures N Sleep Apnea N Jaundice N Hepatitis N Past Reacton to Contrast Media N Cirrhosis N GERD/Ulcer N Chicken Pox N Allergies (other than meds) Y Immunizations Vaccine Type Date Status Note Provider Nam e and Address Organization Details Recorded Time pneumococcal polysaccharide PPV23 2 completed Not Available [facility] 08/04/2023 03:27:48 Influenza, split virus, trivalent, preservative 5 completed Not Available [facility] 08/04/2023 03:27:48 Influenza, high-dose, trivalent, PF 6 completed Not Available [facility] 08/04/2023 03:27:48 zoster live 1 completed Not Available [facility] 08/04/2023 03:27:48 Influenza, split virus, quadrivalent, preservative 0 completed Not Available [facility] 08/04/2023 03:27:48 COVID-19, mRNA, LNP-S, PF, 100 mcg/0.5mL dose or 50 mcg/0.25mL dose 1 completed Not Available [facility] 08/04/2023 03:27:48 COVID-19, mRNA, LNP-S, PF, 100 mcg/0.5mL dose or 50 mcg/0.25mL dose 1 completed Not Available [facility] 08/04/2023 03:27:48 COVID-19, mRNA, LNP-S, PF, 100 mcg/0.5mL dose or 50 mcg/0.25mL dose 1 completed Not Available [facility] 08/04/2023 03:27:48 Influenza, adjuvanted, quadrivalent, PF 1 completed [facility] 04/06/2021 17:27:33 pneumococcal polysaccharide PPV23 1 completed Jeane dailey [facility], [facility] 04/09/2021 07:27:56 Past Encounters Encounter ID Performer Location Encounter Start Date Encounter Closed Date Diagnosis/Indication Diagnosis SNOMED-CT Code Diagnosis ICD10 Code Diagnosis Note [id number] Edgar Ramos MD [facility] [address] [place] [address] 04/17/2019 10:35:50 04/17/2019 12:08:28 Body mass index 40+ - severely obese 665206625 Z68.41 weight issues discussed and informatio n on weight loss given. needs follow up on weight control as scheduled. Education handout on diets given. Exercise counseling done. Will arrange referral for dietitian, nutritioni st, Physical/o ccupationa l therapy as needed or desired. Also will consider pharmaceut ical and supplement al interventi ons Morbid obesity 815797492 E66.01 see BMI above for details.. Chronicall y he appears likely [facility] Diet education 58624941 Z71.3 as above Type 2 isaias betes mellitus 99023380 E11.21 This sugar will be watched his levels are good. We are going to cut his Jardiance in half he is going to watch his diet Peripheral vascular disease 435190798 I73.9 His Nizoral shampoo every fifth day I advised him how to do it [id number] Edgar Ramos MD [facility] [address] [place] [address] 05/08/2019 10:24:41 05/08/2019 12:07:03 Essential hypertension 16492672 I10 His blood pressure is stable he is monitoring his pressure Diet education 14335889 Z71.3 as above Body mass index 40+ - severely obese 418445580 Z68.41 weight issues discussed and informatio n on weight loss given. needs follow up on weight control as scheduled. Education handout on diets given. Exercise counseling done. Will arrange referral for dietitian, nutritioni st, Physical/o ccupationa l therapy as needed or desired. Also will consider pharmaceut ical and supplement al interventi ons Morbid obesity 001764994 E66.01 see BMI above for details. Tinea pedis 3093519 B35. 3 We are going to add Diflucan to his treatment. He does take a little bit of tramadol but not enough to interfere with the Diflucan I did give him 20 days. We should see this patient back within about a month's time he will continue to see his rheumatolo gy . Type 2 isaias betes mellitus 09731020 E11.21 This sugar will be watched his levels are good. We are going to cut his Jardiance in half he is going to watch his diet [id number] Edgar [facility] MD [facility] [address] [place] [address] 06/20/2019 14:36:03 06/20/2019 15:36:18 Body mass index 40+ - severely obese 821589738 Z68.41 weight issues discussed and informatio n on weight loss given. needs follow up on weight control as scheduled. Education handout on diets given. Exercise counseling done. Will arrange referral for dietitian, nutritioni st, Physical/o ccupationa l therapy as needed or desired. Also will consider pharmaceut ical and supplement al interventi ons Type 2 isaias betes mellitus 39962358 E11.21 This sugar will be watched his levels are good. We are going to cut his Jardiance in half he is going to watch his diet I want to try to control the diet without getting his sugar too low Tinea pedis 8411278 B35. 3 He is going to finish up his Diflucan he will also continue his every 5 or 6 days topical Nizoral treatment Peripheral vascular disease 310741475 I73.9 I am hoping to keep his cholestero l low and also his A1c low have him continue walking hopefully he can bring his weight down little bit Uncontroll ed type 2 diabetes mellitus 248225175 E11.65 His diabetes by itself is uncontroll ed is all over the place of course he does not watch his diet too well Type 2 isaias betes mellitus with peripheral angiopathy 442486827 E11.51 He has comorbidit y of his diabetes and his peripheral vascular disease [id number] Edgar Ramos MD [facility] [place] [address] [place] [address] 07/29/2019 15:27:23 07/29/2019 17:20:34 Body mass index 30+ - obesity 814442673 Z68.39 Uncontroll ed type 2 diabetes mellitus 926731945 E11.65 His diabetes by itself is uncontroll [...] sugar still take care of cost Gout 01468481 M10.9 He is watching gouty foods and he is avoiding nose we did refill his allopurino l today [id number] Edgar Ramos MD [facility] [place] [address] [place] [address] 09/04/2019 10:25:58 09/04/2019 12:19:01 Tinea pedis 3816689 B35.3 This patient is still using about every 10 to 12 days a treatment with Nizoral shampoo and is working beautifull y for him. Uncontroll ed type 2 diabetes mellitus 572288977 E11.65 This patient's sugars are dramatical ly better he is running great between 95 and 130. Were to try lab rise little bit higher and cut the Jardiance down to 1/2 tablet of the 10 mg. I will see him in the fall I am extremely pleased with his ownership of disease [id number] Edgar Ramos MD [facility] [place] [address] [place] [address] 05/04/2020 14:36:18 05/04/2020 17:03:23 Essential hypertension 17245254 I10 His blood pressure is stable he is monitoring his pressure blood pressures are acceptable Uncontroll ed type 2 diabetes mellitus 762651555 E11.65 Patient sugars are running pretty much all over the place we need to get an A1c because his last A1c was 8.4 History of total knee arthroplasty 3233549002 105 Z96.659 His knee is actually doing well that is actually the best part of it [id number] Edgar Ramos MD [facility] [place] [address] [place] [address] 06/22/2020 10:24:53 06/22/2020 12:11:26 Essential hypertension 85260221 I10 His blood pressure is stable he is monitoring his pressure blood pressures are acceptable Uncontroll ed type 2 diabetes mellitus 023551583 E11.65 Patient sugars are running pretty much all over the place we need to get an A1c because his last A1c was 8.4 Restless legs 60613830 G 25.81 Screening for malignant neoplasm of prostate 642052039 Z12.5 [id number] Edgar Ramos MD [facility] [place] [address] [place] [address] 07/03/2020 09:14:07 07/03/2020 10:43:52 Uncontrolled type 2 diabetes mellitus 329637833 E11.65 Patient sugars are running pretty much all over the place we need to get an A1c because his last A1c was 8.4. For now we will get and try to bring his postprandi al sugars down a little better by increasing his Jardiance from 10-25 Restless legs 19896085 G 25.81 We refilled his ropinirole he is taking 2 mg twice daily Renewal of prescription 633080896 Z76.0 He needs a renewal of his medication s today Body mass index 40+ - severely obese 935809312 Z68.41 weight issues discussed and informatio n on weight loss given. needs follow up on weight control as scheduled. Education handout on diets given. Exercise counseling done. Will arrange referral for dietitian, nutritioni st, Physical/o ccupationa l therapy as needed or desired. Also will consider pharmaceut ical and supplement al interventi ons Type 2 isaias betes mellitus with peripheral angiopathy 837057219 E11.51 He has comorbidit y of his diabetes and his peripheral vascular disease [id number] MD MARCELINO Krishnamurthy [place] [address] [place] [address] 08/24/2020 09:44:54 08/24/2020 11:11:37 Adult health examination 554712917 Z00.00 Annual Wellness Visit done today Uncontroll ed type 2 diabetes mellitus 222237561 E11.65 Patient sugars are running pretty much all over the place we need to get an A1c because his last A1c was 8.4. For now we will get and try to bring his postprandi al sugars down a little better by increasing his Jardiance from 10-25. 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 We went over his vitamins and his vaccines he is very reliable and does proximal this good preventati ve care Body mass index 30+ - obesity 055913031 Z68.39 weight issues discussed and informatio n on weight loss given. Needs follow up on weight control as scheduled. Education handout on diets given. Exercise counseling done. Will arrange referral for dietitian, nutritioni st, Physical/o ccupationa l therapy as needed or desired. Also will consider pharmaceut ical and supplement al interventi ons bmi 39.1 Obesity 527669985 E66.9 see BMI above for details Diet education 33484122 Z71.3 as above he is weight has not changed he is very stable he does watch what he eats but he just eats more than he should Influenza vaccine needed 3541203951 106 Z23 Today we are giving his flu shot to him Essential hypertension 37743207 I10 E78.2 His blood pressure is stable he is monitoring his pressure blood pressures are acceptable his blood pressure is well controlled his medicines include for blood pressure hydrochlor othiazide 12.5. He also takes metoprolol 25 tartrate twice daily [id number] Edgar Ramos MD [facility] [address] [place] [address] 04/08/2021 08:33:32 04/09/2021 11:36:28 Administration of pneumococcal vaccine 25998351 Z23 [id number] Edgar Ramos MD [facility] [address] [place] [address] 05/04/2021 15:10:55 05/04/2021 16:39:46 Adult health examination 283596428 Z00.00 Annual Wellness Visit done today we did go over preventati ve measures vitamins to vaccines and the like Essential hypertension 36898189 I10 E78.2 His blood pressure is 126/84 his blood pressure medicine includes hydrochlor othiazide 12.5 and metoprolol tartrate 25 twice daily Restless legs 66131384 G 25.81 We did give him instructio ns regarding restless leg syndrome Type 2 isaias betes mellitus with peripheral angiopathy 124946015 E11.51 His A1c is still higher than I like but I cannot drive his basal sugar down too much or he will get hypoglycem ic Body mass index 40+ - severely obese 102633949 Z68.41 His BMI has not really changed over time 38.9 BMI he continues to say he is working on the diet but so far has not been with result [id number] Edgar Ramos MD [facility] [address] [place] [address] 06/17/2021 14:50:58 06/17/2021 15:33:36 Uncontrolled type 2 diabetes mellitus 965678153 E11.65 Patient sugars are running pretty much all over the place we need to get an A1c because his last A1c was 8.4. For now we will get and try to bring his postprandi al sugars down a little better by increasing his Jardiance from 10-25. Were going to check his laboratory today. Diabetes is under control Essential hypertension 90122900 I10 E78.2 His blood pressure is 126/84 his blood pressure medicine includes hydrochlor othiazide 12.5 and metoprolol tartrate 25 twice daily blood pressure today 150/78 Diabetic p eripheral neuropathy 229151161 E11.40 Sensations are decreased monofilame nt is positive for both feet of the toes and the forefoot other than that he can feel [id number] Edgar Ramos MD [facility] [address] [place] [address] 08/12/2021 13:26:43 08/12/2021 14:21:28 Disorder of thyroid gland 52167052 E07.9 Patient has hypothyroi dism he takes thyroid medicine. His status is stable we will get a check his T SH and free T4 Psoriasis 8875427 L40.9 Psoriasis is stable at this point he is not changing medicine at all Type 2 isaias betes mellitus 76825379 E11.21 This sugar will be watched his [...] status is stable and improving Tinea pedis 5145373 B35. 3 This patient is still using about every 10 to 12 days a treatment with Nizoral shampoo and is working beautifull y for him.. His tinea pedis has stabilized and is doing well Dizziness 407047015 R42 The patient is dizziness status is getting worse he is much more wobbly he does not know the cause of it were going to give him closing Essential hypertension 90474972 I10 E78.2 His blood pressure is 126/84 his blood pressure medicine includes hydrochlor othiazide 12.5 and metoprolol tartrate 25 twice daily blood pressure today Body mass index 30+ - obesity 481120513 Z68.39 weight issues discussed and informatio n on weight loss given. Needs follow up on weight control as scheduled. Education handout on diets given. Exercise counseling done. Will arrange referral for dietitian, nutritioni st, Physical/o ccupationa l therapy as needed or desired. Also will consider pharmaceut ical and supplement al interventi ons Obesity 664303119 E66.9 see BMI above for details Diet education 61225835 Z71.3 as above trial. The patient's blood [...] things he has not changed too much [id number] Edgar Ramos MD [facility] [address] [place] [address] 09/09/2021 14:17:08 09/09/2021 15:21:43 Disorder of thyroid gland 94909266 E07.9 Patient has hypothyroi dism he takes thyroid medicine. His status is stable we will get a check his T SH and free T4 he has hypothyroi dism and is stable presently he is.. All 25 mcg of Levothroid Type 2 isaias betes mellitus 52489676 E11.21 This sugar will be watched his [...] problem Body mass index 30+ - obesity 710398991 Z68.38 weight issues discussed and informatio n [...] on at present he is 38.9 Obesity 910552399 E66.9 see BMI above for details he is going to try to watch his starches little bit become a little bit of a vegetable eater Diet education 89974587 Z71.3 as above I wish him luck in the diet at I do not want a supplement in with an appetite suppressan t certainly Essential hypertension 66355959 I10 E78.2 His blood pressure is 126/84 his blood pressure medicine includes hydrochlor othiazide 12.5 and metoprolol tartrate 25 twice daily blood pressure today. His blood pressure is stable Dizziness 910899282 R42 The patient is dizziness status is getting worse he is much more wobbly he does not know the cause of it were going to give him closing. 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 he did a little better with meclizine but he had some side effects he said which he did not like [id number] Edgar Ramos MD [facility] [address] [place] [address] 04/20/2022 11:13:45 04/20/2022 12:54:50 Type 2 diabetes mellitus 54245900 E11.21 This sugar will be watched his [...] sick but better now Wound of skin 760828350 T14.8XXA status is controlled he has a wound that is scant he needs to be seen by home health wound care and physical therapyStnoe brittny is not good right now his wound is open and draining but it does not look purulent too badly Peripheral vascular disease 152884347 I73.9 I am hoping to keep his [...] 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 241699345 L40.51 He does have psoriatic arthritic changes that are stable right nowThe psoriatic arthritis continues to plague him but he is stable and has been little change Morbid obesity 737359249 E66.01 I hope he can continue to lose weight Body mass index 30+ - obesity 926129550 Z68.38 weight issues discussed and informatio n [...] is come down a little bit Thrombophilia 992154984 D68.69 He takes anticoagul ation his blood count is affected little bit by that it is stable Essential hypertension 34258986 I10 His blood pressure is 126/84 his [...] the rate is controlled it is stable [id number] MD MARCELINO Krishnamurthy [address] [place] [address] 05/20/2022 08:50:08 05/20/2022 09:47:30 Wound of skin 666627090 T14.8XXA His wounds on his leg are improving he is seeing wound management Status is improving wounds are healing Uncontroll ed type 2 diabetes mellitus 955020140 E11.65 Patient sugars are running pretty much [...] of his diabetes is improved Muscle weakness 22365126 M62.81 He has muscle weakness and he needs physical therapy to work with gait strength balance coordinati on and coreStatus is not where it should be right now but withWe are going to set him up with physical therapy as an outpatient as opposed to coming to his home Chronic ki dney disease stage 3B 330190551 N18.32 Patient's creatinine has been elevated slightlyHi s creatinine went from 1.5-2.0 we need to have a stay hydrated we will watch this closelyStnoe mart has deteriorat ed Type 2 isaias betes mellitus without complication 592629012 E11.9 His A1c went from 8.5-11We will check this in 6 weeks at which point we may need to start insulinI think he would do very well with mounjaroWe will see how the cost works and when he can do [id number] Edgar Ramos MD [facility] [place] [address] [place] [address] 06/15/2022 13:33:21 06/15/2022 14:31:55 Wound of skin 138415288 T14.8XXA His wounds on his leg are improving he is seeing wound management Status is improving wounds are healing Osteoarthritis 048041416 M19.90 Uncontroll ed type 2 diabetes mellitus 085807096 E11.65 Patient sugars are running pretty much [...] PT GIVEN TOUJEO SAMPLE (300 UNITS/ML)L OT# [id number]: 03-18-2023 His diabetes is not controlled he [...] but it will be Immunodefi ciency disorder 279695104 D84.81 Due to his diabetes and peripheral vascular disease and age his immune system is fragile and he gets infections more easily also based on history he has been slow to heal and the lower extremitie s because of peripheral vascular disease that is the cause of his immune problem in his legs Morbid obesity 688161942 E66.01 I hope he can continue to lose weightPati ent has morbid obesity he did come down a weight is higher he now is 33.9 it is start Body mass index 30+ - obesity 270106515 Z68.35 weight issues discussed and informatio n [...] 38-33 status is not moving Essential hypertension 81155361 I10 His blood pressure is 126/84 his [...] 25 1 twice daily of tartrate Thrombophilia 034718228 D68.69 He takes anticoagul ation his blood count is affected little bit by that it is stableIs thrombophi lias because of his blood thinner it is stable [id number] Edgar Ramos MD [facility] [place] [address] [place] [address] 06/24/2022 09:05:01 06/24/2022 10:31:15 Type 2 diabetes mellitus without complication 821642611 E11.9 Patient's sugar is improving slightly he is between 150 and 200Present ly he is on 6 units of Toujeo. It is actually 3 clicks because each click is 2 unitsStatu s is improving Vertigo 537431271 R42 At this point his status of the vertigo is ongoing and not improvedAt this point I would have him try valacyclov ir 500 once a day Idiopathic peripheral neuropathy 77176680 G60.9 With his peripheral neuropathy I think he would do fine to start thiamine B1 500 mgIn the form OF BENFOTIAMI NEHis status is not controlled yetFor physical therapy has helped him Peripheral vascular disease 453260888 I73.9 I am hoping to keep his [...] system is affected as well Morbid obesity 431288592 E66.01 I hope he can continue to lose weightPati ent has morbid obesity he did come down a weight is higher he now is 33.9 it is startHis weight is been coming down I am pleased that he is trying and working out it status is improving 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 649339884 L40.51 He does have psoriatic arthritic changes that are stable right nowThe psoriatic arthritis continues to plague him but he is stable and has been little change Thrombophilia 603524245 D68.69 He takes anticoagul ation his blood [...] well Chronic ki dney disease stage 3B 502721374 N18.32 Patient's creatinine has been elevated slightlyHi s creatinine went from 1.5-2.0 we need to have a stay hydrated we will watch this closelySta brittny has deteriorat edHe has not gotten worse he stays hydrated he is stable 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 mellitus 7721758684 76107 E11.65 His hyperglyce jamie is improved with the use of his recent insulin Immunodefi ciency disorder 823593063 D84.81 He has immune deficiency disorder we will watch him status is not controlled at the present timeHe will watch for infection particular ly his legs which are slow to heal [id number] MD MARCELINO Krishnamurthy [place] [address] [place] [address] 08/18/2022 09:01:42 08/18/2022 10:05:03 Uncontrolled type 2 diabetes mellitus 808712756 E11.65 His sugars are not controlled at the present time he is still running above 150 fasting most of the time I think he was confused about how to control his sliding scaleSo we went over that again he is watching his diet his weight has come down somewhat about 40 pounds which is quite good Essential hypertension 84034663 I10 Pressure is 128/70 he seems status [...] daily and is stable without his Fatigue 13737635 R53.83 His fatigue is ongoing I think is from deconditio ron. He may have some prostatiti s a PSA would be appropriat e for that reason even though it seems farfetched is status is stable [id number] MD MARCELINO Krishnamurthy [place] [address] [place] [address] 10/10/2022 14:59:02 10/10/2022 16:32:15 Uncontrolled type 2 diabetes mellitus 730624172 E11.65 His sugars are not controlled at [...] be greatStatu s is improving Restless legs 91830755 G 25.81 We did give him instructio ns regarding restless leg syndromeHi s restless legs are stable they are improving Gout 23118229 M10.9 He needs a renewal of his medication s todayHe has not had any gout gout flareups or problems with gout since he has been on allopurino l.He appears more stable Essential hypertension 52872293 I10 Pressure is 128/70 he seems status [...] of the pressure is improved and stable [id number] Edgar Ramos MD [facility] [address] [place] [address] 06/26/2023 15:00:29 06/26/2023 16:33:28 Hyperglycemia 75260272 R73.9 Sugar is elevated he is stable Vitamin D deficiency 347 27744 E55.9 Vitamin D is stable he has neuropathy is stable Osteoarthritis 043138736 M19.90 Hydrochlor othiazide his arthritis is stable Atrial fibrillation 4943 6004 I48.91 He had atrial fibrillati on. He still suffers from takes his anticoagul ation the rate is controlled it is stablePati ent is status is improved and doing well Chronic ki dney disease stage 3B 743363048 N18.32 Patient's creatinine has been elevated slightlyHi s creatinine went from 1.5-2.0 we need to have a stay hydrated we will watch this closelySta tus has deteriorat edHe has not gotten worse he stays hydrated he is stableHe stays hydrated he was sick had to be [place] flighted from put in [facility] in [facility] down to [facility] and then to [place] where he was hospitaliz ed with dehydratio n and electrolyt e imbalance he is now better this was several months agoHis kidney had gotten worse at 2.3 creatinine now which improved we will check it Dizziness 261943502 R42 The patient is dizziness status is [...] PLUSHe is not stable at present Gout 36485331 M10.9 He needs a renewal of his medication s todayHe has not had any gout gout flareups or problems with gout since he has been on allopurino l.He appears more stable Uncontroll ed type 2 diabetes mellitus 301036486 E11.65 His sugars are not controlled at [...] improving. We will check his A1c Thrombophilia 847498584 D68.69 He takes anticoagul ation his blood count is affected little bit by that it is stableIs thrombophi lias because of his blood thinner it is stableHis anticoagul ation is affecting his platelet agglutinin patient status is stable Morbid obesity 106998378 E66.01 I hope he can continue to lose weightPati ent has morbid obesity he did come down a weight is higher he now is 33.9 it is startHis weight is been coming down I am pleased that he is trying and working out it status is improving his weight has come down little bit Idiopathic peripheral neuropathy 46482085 G60.9 With his peripheral neuropathy I think he would do fine to start thiamine B1 500 mgIn the form OF BENFOTIAMI NEHis status is not controlled yetFor physical therapy has helped himHe will continue his vitamin Essential hypertension 54018790 I10 Pressure is 128/70 he seems status [...] improved and stable Gastroesop hageal reflux disease 962358212 K21.9 His GERD is controlled with pantoprazo le he knows when to take it it is stable Restless legs 04332718 G 25.81 We did give him instructio ns regarding restless leg syndromeHi s restless legs are stable they are improving status is improved and stable Allergic rhinitis 448669 04 J30.9 His allergies are controlled with Claritin and montelukas t Hypothyroidism 52599322 E03.9 He takes his thyroid medicine we will check the TSH it is stable 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 461761078 L40.51 His psoriasis continues but it is stable 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 0183339381 08 E11.22 His kidney function has bounced up is not where it was is not stable yet we will recheck it Immunodefi ciency disorder 893941575 D84.81 His immune deficiency is stable Type 2 isaias betes mellitus with peripheral angiopathy 447339874 E11.51 His peripheral angiopathy is improved Heart failure 31561979 I 50.9 His heart failure has improved his medicines have helped in particular the Jardiance it is stabilized [id number] Edgar Ramos MD [facility] [place] [address] [place] [address] 07/27/2023 10:21:43 07/27/2023 11:29:54 Cellulitis of toe of right foot 1609281292 3619711 L03.031 His toe looks quite nasty bleeding [...] disorder due to type 2 diabetes mellitus 800785177 E11.51 He has severe peripheral diminished blood flow dorsalis pedis and posterior tibialis both sides is low his diabetes is the cause. His status is getting worse I think he might need an amputation before this is done Peripheral vascular disease 370296104 I73.9 Patient has peripheral vascular disease with decreased dorsalis pedis and posterior tibialisSt atus is getting worse not healing swollen [id number] Edgar Ramos MD [facility] [place] [address] [place] [address] 09/07/2023 07:43:28 09/07/2023 08:26:05 Chronic kidney disease stage 3B 984761660 N18.32 Patient's creatinine has been elevated slightlyHi s creatinine went from 1.5-2.0 we need to have a stay hydrated we will watch this closelySta tus has deteriorat edHe has not gotten worse he stays hydrated he is stableHe stays hydrated he was sick had to be [place] flighted from put in [place] in [facility] down to [facility] and then to [place] where he was hospitaliz ed with dehydratio n and electrolyt e imbalance he is now better this was several months agoHis kidney had gotten worse at 2.3 creatinine now which improved we will check itHis microalbum in is 2400His A1c is 11 Uncontroll ed type 2 diabetes mellitus 559152463 E11.65 His sugars are not controlled at [...] his A-fib but the rate is controlled [id number] Edgar Ramos MD [facility] [place] [address] [place] [address] 04/25/2024 13:14:48 04/25/2024 15:07:47 Counseling 320396797 Z71.9 Patient received [facility] Value Based Patient Guide today. 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 982514341 I83.013 His varicose veins have improved since he lost weight Chronic ul cer of ankle 165609955 L97.319 He has got chronic ulcer in his ankle which is improving 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 Chronic ulcer of foot 42 3137739 L97.509 His ankle ulcer is healed Chronic ul cer of skin of lower leg 5965085411 7501474 L97.822 Chronic ulcer of foot 42 3469529 L97.511 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 The atheroscle rosis lower extremitie s good Hyperlipidemia 60475013 E78.5 Hyperlipid emia has improved with weight loss Health Concerns Section Related Observation LastModified by Organization Detai ls LastModified Time None Recorded Concern Status LastModified by Organization Details LastModified Time None Recorded Advance Directives Directive Y: Payers Insurance Date Sequence Insurance Name Policy Number Policy Del Toro Covered Member ID Del Toro Member ID Guarantor Name 05/24/2024 2 [employer] (MEDICARE SUPPLEMENT) Richard Black [id number] Richard Black 05/24/2024 1 [place] Ray Noe Scherf [id number] Ray Wayne Notes Date Note Type Note Provider Name [...] we might be okay [facility] with a high fever on 10/23/2021 he was in for 6 daysIt was hard to figure out what happened but they gave him some antibiotic then he was shipped to [facility] in [place] he was there for 4 days while [...] the shuffling of the care up in [place] and by [place] as well So he [...] his ambulation is better Today is a dryo-vz-qsah meeting for that in the office Edgar Ramos MD [address] [address], [place], [address], [facility], [facility] 10/11/2022 08:02:53 4 text/html ANNUAL WELLNESS VISIT [...] No or Minimal depression, (0). Imported from [employer] on 4Patient has numerous things to go over yesterday reportedHe is going to have surgery with Dr. Barbara Chaudhari [facility] his refill on tramadolHe presently has [...] we might be okay [facility] hospital with a high fever on 10/23/2021 he was in for 6 daysIt was hard to figure out what happened but they gave him some antibiotic then he was shipped to [facility] in [place] he was there for 4 days while [...] the shuffling of the care up in [place] and by [place] and [facility] as [...] his ambulation is better Today is a vkys-gq-crpz meeting for that in the office Edgar Ramos MD [address] [address], [place], [address], [facility], [facility] 06/27/2023 10:03:14 4 text/html The patient sees [...] metatarsal area [facility] his [facility] on tramadolHe presently has [...] we might be okay [facility] to [facility] hospital with a high fever on 10/23/2021 he was in for 6 daysIt was hard to figure out what happened but they gave him some antibiotic then he was shipped to [facility] in [place] he was there for 4 days while [...] the shuffling of the care up in [place] and by [place] as well So he [...] his ambulation is better Today is a cbok-vj-slsb meeting for that in the office Edgar Ramos MD [address], [place], [address], [facility], [facility] 07/30/2023 13:54:29 4 text/html Patient comes in [...] metatarsal area [facility] his refill on tramadolHe presently has [...] we might be okay [facility] hospital with a high fever on 10/23/2021 he was in for 6 daysIt was hard to figure out what happened but they gave him some antibiotic then he was shipped to [facility] in [place] he was there for 4 days while [...] the shuffling of the care up in [place] and by [place] as well So he [...] his ambulation is better Today is a ddqw-zw-kyis meeting for that in the office Edgar Ramos MD [address], [place], [address], [place] [facility], [facility] 09/07/2023 09:02:11 4 text/html It is a [...] many people This patient came down from [facility] he came down to his [facility] home being practically destroyed they are leaving [...] time to start insulin [facility] to [facility] hospital with a high fever on 10/23/2021 he was in for 6 daysIt was hard to figure out what happened but they gave him some antibiotic then he was shipped to [facility] in [place] he was there for 4 days while [...] the shuffling of the care up in [place] and by [place] as well So he [...] his ambulation is better Today is a btkm-dv-hsmx meeting for that in the office QUALITY MEASURE QUESTIONNAIRE PRAPARE Screening Patient declined PRAPARE Screener 04/25/2024 Imported from [facility] on 04/25/2024 Edgar Ramos MD [address] [facility] [place], [address], [facility], [facility] 04/27/2024 13:58:14
--- OUTSIDE RECORDS SUMMARY | 2025-01-01 11:30 | XMS_ITS | Clinical Summary ---
Author Organization [facility] Address [address] [place] [address] Care Team Providers Care Physician Name Role Phone Zhao Sorensen MD Primary Care Provider [phone] Allergies No known active allergies Medications allopurinol [...] Date Diagnosed Date [facility] 10/10/2024 Counseling, unspecified [...] Assessment & Plan (10/21/2022 11:36 AM EDT): [id number]= 7 age, HTN, CHF, DM and PAD Continue eliquis 2.5 mg bid, and metoprolol 25 mg bid- heart rate well controlled Peripheral arterial occlusive disease 01/24/2022 Aortic valve stenosis 01/24/2022 Acquired hypothyroidism 11/30/2021 Cellulitis of lower leg 11/30/2021 Hyperglycemia 11/30/2021 Right lower lobe pneumonia 11/30/2021 Atrial fibrillation 11/29/2021 Assessment & Plan (10/21/2022 9:24 AM EDT): [id number] score is 4 due to age, hypertension, [...] Encounters Date Type Department Care Team Description 12/23/2024 Telephone [address] [place] [address] Hazel Chu MA 10/28/2024 11:45 AM EDT Office Visit [facility] [address] [place] [address] Lonny Liu MD PAD (peripheral artery disease) [...] Hemoglobin A1C 08/18/2022 05/20/2022 COVID-19 Vaccine ( - season) 2024 05/26/2021, 09/21/2020, 08/20/2020 Medicare Annual Wellness (AWV) 06/27/2024 06/26/2023, 09/09/2021, 05/04/2021, Additional history exists Influenza Vaccine (#1) 2025 , 03/13/2023, 04/01/2022, Additional history exists Adult Tetanus 02/27/2033 02/27/2023 HIB Vaccines Aged Out No longer eligi [...] age to complete this topic Insurance MEDICARE Member Subscriber Plan / Payer (Ef fective 1997-Present) Name:Richard Black Member ID:[id number] Relation to Subscriber:Self Name:Richard Black Subscriber ID:[id number] Payer ID:[id number] Group ID:Not on file Type:Medicare Address: [facility] [address] Care Teams Physician Relationship Specialty Start Date End Date Zhao Sorensen MD [address] [place] [address] PCP - General 02/19/22
--- OUTSIDE RECORDS SUMMARY | 2025-01-01 11:30 | XMS_ITS | Encounter Summary ---
Author Organization [facility] Address [address] [place] [address] Care Team Providers Care Automobile Mechanic Name Role Phone Zhao Sorensen MD Primary Care Provider [phone] Encounter Details Date Type Department Care Team (Late st Contact Info) Description 12/23/2024 Telephone [facility] [address] [place] [address] Hazel Chu MA Social History Tobacco Use Types Packs/Day Years Used Date Smoking Tobacco: Former Cigarettes Smokeless Tobacco: Never Alcohol Use Standard Drinks/Week Comments Not Currently [...] on file Sexual Orientation Not on file documented as of this encounter Plan of Treatment Not on file documented as of this encounter Visit Diagnoses Not on filedocumented in this encounter Care Teams Automobile Mechanic Relationship Specialty Start Date End Date Zhao Sorensen MD [address] [place] [address] PCP - General 02/19/22 documented as of this encounter
--- OUTSIDE RECORDS SUMMARY | 2025-01-01 11:31 | XMS_ITS | Clinical Summary ---
Author Organization [facility] Address [id number] [address] [place] [address] Care Team Providers Care Unit Clerk Name Role Phone Unavailable Primary Care Provider [...] mouth daily as needed for allergies. 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
--- OUTSIDE RECORDS SUMMARY | 2025-01-01 11:31 | XMS_ITS | Continuity of Care Document ---
Author Organization [facility] Address [address] [address] [place] [address] Phone [phone] Care Team Providers Care Warehouse Distribution Manager Name Role Phone . DOCTOR FORMS, COPIES INTEREST Care Team Inform ation Utility Spray Operator Unavailable
--- OUTSIDE RECORDS SUMMARY | 2025-01-01 11:31 | XMS_ITS | Patient Health Record ---
Author Organization [facility] [place] Address [address] [place] [address] Care Team Providers Care Horse Identifier Name Role Phone None, Unknown or Primary Care Provider Unavailab Haritha Hurley Unavailable [phone] Results Component Value Reference Range Notes XR foot RT min 3V (Not yet r eviewed by provider) Interpretation: Performing Lab: Notes/Report: Source Facility: [place] [address] XRay Report Signed Patient: RICHARD BOYKIN MR#: [id number] : 1940 Acct:[id number] Age/Sex: 83 / M ADM Date: 03/01/24 Loc: Attending Dr: Yuri El D.P.M. Ordering Physician: Yuri El D.P.M. Date of Service: 03/01/24 Procedure(s): XR foot RT min 3V Accession Number(s): [id number] cc: MARJ PIPER ; Yuri El D.P.M. [place] [address] Patient Name: RICHARD BOYKIN MRN: [id number] date: 1940 Sex: M Assigned Patient Location: Current Patient Location: Accession/Order Number: [id number] Exam Date: 03/01/2024 10:30 Report Date: 03/03/2024 [...] M.D. Signed By: 03/03/24523 DD/ 0 TD/TT: Cra Officer: [place] [address] XRay Report Signed Patient: RICHARD BOYKIN MR#: [id number] : 1940 Acct:[id number] Age/Sex: 83 / M ADM Date: 03/01/24 Loc: Attending Dr: Yuri El D.P.M. Ordering Physician: Yuri El D.P.M. Date of Service: 03/01/24 Procedure(s): XR foot RT min 3V Accession Number(s): [id number] cc: MARJ PIPER ; Yuri El D.P.M. [place] [address] Patient Name: RICHARD BOYKIN MRN: [id number] date: 1940 Sex: M Assigned Patient Location: Current Patient Location: Accession/Order Numb er: [id number] Exam Date: 03/01/2024 10:30 Report Date: 03/03/2024 [...] M.D. Signed By: 03/03/24523 DD/ 0 TD/TT: Cra Officer: Reason For Referral No Information Problems Problem Type SNOMED Code ICD Code Onset Dates Problem Status W/U Status Risk Notes Problem Foot ulcer due to type 2 diabetes mellitus (2972044148860) Type 2 diabetes mellitus with foot ulcer (E11.621) Active confirmed Problem Venous ulcer of lower extremity due to chronic peripheral venous hypertension (337013035818341 ) Chronic venous hypertension (idiopathic) with ulcer of left lower extremity (I87.312) Active confirmed Problem Chronic ulcer of skin of lower leg (disorder) (028514858858094 04) Non-pressure chronic ulcer of other part of left lower leg limited to breakdown of skin (L97.821) Active confirmed Problem Chronic foot ulcer, limited to breakdown of skin, right (L97.511) Active confirmed Problem Non-prs chr ulcer oth prt l low leg limited to brkdwn skin (L97.821) Active confirmed Problem Foot ulcer due to type 2 diabetes mellitus (6385535624617) 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 (E11.621) Active confirmed Problem Skin ulcer of toe of right foot with necrosis of bone (L97.514) Active confirmed Problem Skin ulcer of left pretibial region with fat layer exposed (L97.822) Active confirmed Problem Chronic ulcer of right foot (disorder) (472563285633216 00) Chronic ulcer of right foot with fat layer exposed (L97.512) Active confirmed Vital Signs Heart Rate 89 /min 06/24/2024 Temperature 97.8 degrees Fahrenheit 06/24/2024 Oximetry 99 % 06/24/2024 Encounters Encounter Location Date Provider Diagnosis [facility] ([facility]) [address] [address] 06/24/2024 Haritha Mistry Diabetes mellitus with foot [...] End Date [place]IC[place] [address] [place] [address] [id number] Richard Boykin Self - patient is the insured [facility] [address] [place] [address] [id number] Richard Boykin Self - patient is the insured
== END 2025-01-01 11:28 | disposition home or self-care (01) ==
LOC: WC 11:27
PROVIDERS: PCP Family Medicine; Visit Provider Physician Assistant
DX: E11.621 Type 2 diabetes mellitus with foot ulcer (principal); L97.512 Non-pressure chronic ulcer of other part of right foot with fat layer exposed; L97.514 Non-pressure chronic ulcer of other part of right foot with necrosis of bone
CPT/HCPCS: G0463

== ENCOUNTER 2025-01-15 11:00 | Outpatient (OUT) | payer MEDICARE, SELFPAY ==
--- OUTSIDE RECORDS SUMMARY | 2025-01-15 11:03 | XMS_ITS | Clinical Summary ---
Author Organization [facility] Address [address] [place] [address] Care Team Providers Care Senior Product Engineer Name Role Phone Zhao Sorensen MD Primary Care Provider [phone] Allergies No known active allergies Medications allopurinol [...] Date Diagnosed Date [facility] 10/10/2024 [...] Assessment & Plan (10/21/2022 11:36 AM EDT): [id number]= 6 age, HTN, CHF, DM and PAD Continue eliquis 2.5 mg bid, and metoprolol 25 mg bid- heart rate well controlled Peripheral arterial occlusive disease 01/24/2022 Aortic valve stenosis 01/24/2022 Acquired hypothyroidism 11/30/2021 Cellulitis of lower leg 11/30/2021 Hyperglycemia 11/30/2021 Right lower lobe pneumonia 11/30/2021 Atrial fibrillation 11/29/2021 Assessment & Plan (10/21/2022 9:24 AM EDT): [id number]-[id number] score is 4 due to age, hypertension, [...] Type Department Care Team Description 12/23/2024 Telephone [place] [address] [place] [address] Hazel Chu MA 10/28/2024 11:45 AM EDT Office Visit [facility] [address] [place] [address] Lonny Liu MD PAD (peripheral artery disease) [...] Payer (Ef fective 1997-Present) Name:Richard Black Member ID:[id number] Relation to Subscriber:Self Name:Richard Black Subscriber ID:[id number] Payer ID:[id number] Group ID:Not on file Type:Medicare Address: [facility] [address] Care Teams Senior Product Engineer Relationship Specialty Start Date End Date Zhao Sorensen MD [address] [place] [address] PCP - General 02/19/22
--- OUTSIDE RECORDS SUMMARY | 2025-01-15 11:03 | XMS_ITS | Clinical Summary ---
Author Organization [facility] Address [id number] [address] [place] [address] Care Team Providers Care Consumer Product Advisor Name Role Phone Unavailable Primary Care Provider [...] mouth daily as needed for allergies. 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 JENARO (acute kidney injury) 02/27/2023 Immunizations Immunization Administration Dates Next Due Tdap [...] Medical Devices Not on file Insurance MEDICARE [facility] Advance Directives * Full Code (Latest Code Status on File) Date Activated Date Inactivated Comments 02/27/2023 9:26 PM 02/28/2023 1:55 PM
--- OUTSIDE RECORDS SUMMARY | 2025-01-15 11:03 | XMS_ITS | Continuity of Care Document ---
Author Organization [facility] Address [address] [address] [place] [address] Phone [phone] Care Team Providers Care Curator [employer] Name Role Phone . DOCTOR FORMS, COPIES INTEREST Care Team Inform ation Network Systems Analyst Unavailable
== END 2025-01-15 11:01 | disposition home or self-care (01) ==
LOC: WC 11:00
PROVIDERS: PCP Family Medicine; Visit Provider Physician Assistant
DX: E11.621 Type 2 diabetes mellitus with foot ulcer (principal); L97.512 Non-pressure chronic ulcer of other part of right foot with fat layer exposed; L97.514 Non-pressure chronic ulcer of other part of right foot with necrosis of bone
CPT/HCPCS: G0463

== ENCOUNTER 2025-01-28 11:40 | Outpatient (OUT) | payer MEDICARE, SELFPAY | END 2025-01-28 11:41 | disposition home or self-care (01) | LOC: WC 11:40 | PROVIDERS: PCP Family Medicine; Visit Provider Physician Assistant | DX: E11.621 Type 2 diabetes mellitus with foot ulcer (principal); L97.512 Non-pressure chronic ulcer of other part of right foot with fat layer exposed; L97.514 Non-pressure chronic ulcer of other part of right foot with necrosis of bone; L97.412 Non-pressure chronic ulcer of right heel and midfoot with fat layer exposed | CPT/HCPCS: G0463 ==

== ENCOUNTER 2025-02-05 10:33 | Outpatient (OUT) | payer MEDICARE, SELFPAY ==
--- OUTSIDE RECORDS SUMMARY | 2025-02-05 10:39 | XMS_ITS | Clinical Summary ---
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 Varicose veins of right lower extremity with ulc er of ankle 04/27/2024 Cellulitis of toe of right foot 07/30/2023 10/06/2023 Allergic rhinitis 06/27/2023 10/06/2023 Gastroesophageal reflux disease 06/27/2023 10/06/2023 Heart failure 06/27/2023 10/06/2023 Vitamin D deficiency 06/27/2023 10/06/2023 EJNARO (acute kidney injury) 02/27/20232023 History of arthritis [...] Assessment & Plan (10/21/2022 11:36 AM EDT): [id number]= 7 age, HTN, CHF, DM and PAD Continue eliquis 2.5 mg bid, and metoprolol 25 mg bid- heart rate well controlled Peripheral arterial occlusive disease 01/24/2022 Aortic valve stenosis 01/24/2022 Acquired hypothyroidism 11/30/2021 Cellulitis of lower leg 11/30/2021 Hyperglycemia 11/30/2021 Right lower lobe pneumonia 11/30/2021 Atrial fibrillation 11/29/2021 Assessment & Plan (10/21/2022 9:24 AM EDT): ING5VY1-LVIw score is 4 due to age, hypertension, [...] Type Department Care Team Description 12/23/2024 Telephone [place] [address] [place] [address] Hazel Chu MA from Last 3 Months Family History Medical [...] Payer (Ef fective 1997-Present) Name:Richard Black Member ID:[id number] Relation to Subscriber:Self Name:Richard Black Subscriber ID:[id number] Payer ID:[id number] Group ID:Not on file Type:Medicare Address: [facility] [address] Care Teams Wastewater Treatment Operator Relationship Specialty Start Date End Date Zhao Sorensen MD [address] [place] [id number] PCP - General 9/3/22
--- OUTSIDE RECORDS SUMMARY | 2025-02-05 10:39 | XMS_ITS | Continuity of Care Document ---
Author Organization [facility] Address [address] [address] [place] [address] Phone [phone] Care Team Providers Care Mill Operator Name Role Phone . DOCTOR FORMS, COPIES INTEREST Care Team Inform ation Palliative Care Nurse Unavailable
--- OUTSIDE RECORDS SUMMARY | 2025-02-05 10:45 | XMS_ITS | CCD ---
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 Name Role Phone Unavailable Primary Care Provider UnavailMARJ Cooper Primary Care Unavailable MORTON Referring Unavailable JILLIAN HERNADEZ Admitting Unavailable ALICIA SWEET Attending Unavailable Lydia Anderson Unavailable Godfrey Gomez Unavailable Teofilo Person Unavailable MD Marj Sorensen Primary Care Provider MD Teofilo Person Attending Provider [phone] MD Sweetie Tomlinson V Attending Provider MISC, DR SILVA Primary Care Unavailable YURI HUGHES Attending Unavailable YURI HUGHES Admitting Unavailable DAVI, DR PITT Admitting Unavailable MISC, DR SILVA Primary Care Unavailable MOUKARBCLINT, DR PITT Attending Unavailable MOUKAALPHONSO, DR PITT Consulting Unavailable MISC, DR SILVA Primary Care Unavailable MAYRAUKAALPHONSO, DR PITT Attending Unavailable DAVI, DR PITT Consulting Unavailable MAYRAUKAPETROSEL, DR PITT [...] Sorensen Admitting Unavailable Marj Sorensen Attending Unavailable Edu, Marj Dugan Primary Care Unavailable Edu, Marj Dugan Attending Unavailable Edu, Marj Dugan Admitting Unavailable Edu, Marj Dugan Primary Care Unavailable Edu, Marj Dugan Admitting Unavailable Edu, Marj Dugan Attending Unavailable Edu, Rigo Primary Care Unavailable Edu, Marj Dugan Attending Unavailable Edu, Rigo Admitting Unavailable Edu, Marj Dugan Primary Care Unavailable Edu, Marj Dugan Admitting Unavailable Edu, Marj Dugan Attending Unavailable MOUKARBEL, SWEETIE Blanco Attending Unavailable MOUKARBEL, SWEETIE Blanco Admitting Unavailable Edu, Marj Dugan Primary Care Unavailable Edu, Marj Dugan Primary Care Unavailable Edu, Marj Dugan Attending Unavailable Edu, Marj Dugan Primary Care Unavailable Edu, Marj Dugan Attending Unavailable Edu, Marj Dugan Attending Unavailable Edu, Marj Dugan Primary Care Unavailable Edu, Marj Dugan Attending Unavailable Edu, Rigo Primary Care Unavailable Edu, Rigo Primary Care Unavailable Edu, Marj Dugan Attending Unavailable Edu, Rigo Primary Care Unavailable Edu, Marj Dugan Attending Unavailable Edu, Marj Dugan Primary Care Unavailable Edu, Marj Dugan Attending Unavailable Edu, Marj Dugan Primary Care Unavailable FUNG, CAREY Attending Unavailable KENTON, CAREY Admitting Unavailable Edu, Marj Dugan Primary Care Unavailable Edu, Marj Dugan Attending Unavailable Edu, Marj Dugan Admitting Unavailable Edu, Rigo Primary Care Unavailable Edu, Rigo Primary Care Unavailable Edu, Marj Dugan Attending Unavailable Medications [...] Cotransporter 2 Inhibitor Start: 02-12-20 End: 10-24-19 25 take 1 tablet by mouth once daily [...] Start: 02-12-2020 Fluticasone Pr opionate 50 mcg/actuation [place],Suspension Active 1 SPRAY INTRANASAL Daily February 12, [...] 12, 2020 12:00am [facility] Glimepiride 4 MG 1 tablet with breakfast or the first main meal of the day Orally Once a day Active hydroCHLOROthiazide 12.5 mg oral tablet (5 sources) Thiazide Diuretic Start: 02-12-2020 take 1 tablet by mouth once daily Hydrochlorothiazide 12.5 mg Tablet Active 12.5 MG PO Daily February 12, 2020 12:00am take 1 capsule by [facility] every twenty-four hours hydroCHLOROthiazide 12.5 MG 1 capsule in the morning Orally Once a day Active 1.5 ml insulin glargine 300 unt/ml pen injector (1 source) Insulin Analog TOURASHEL SOLOSTAR U-300 INSULIN 300 unit/mL (1.5 mL) insulin pen Inject under the skin nightly. Active Insulin Glargine U-300 Conc (Toujeo Solostar U-300 Insulin) 300 unit/mL (1.5 mL) insulin pen (1 source) Start: 10-24-19 inject 300 [IU] by subcutaneous injection once daily Insulin Glargine U-300 Conc (Toujeo Solostar U-300 [...] 2024 3:59pm take 1 capsule by mo [facility] once daily Metoprolol Succinate 25 MG 1 capsule Orally Once a day Active montelukast 10 mg oral tablet (6 sources) Leukotriene Receptor Antagonist Start: 02-27-2020 take 1 tablet by mouth once daily at bedtime Montelukast 10 mg Tablet Active 10 MG PO Daily at bedtime February 27, 2020 12:00am xtebkuyz-wiiz-GT-ca lcium &mins (THERAGRAN-M) 9 mg iron-400 mcg tablet (1 source) unamcncw-rvvp-YL -c alcium &mins (THERAGRAN-M) 9 mg iron-400 mcg tablet Take 1 tablet by mouth in the morning. Active Pmotpoii-Buz-Zrver- Vit K-Lycop (Men's 50 Plus Daily Formula) 400-20-370 mcg Tablet (2 sources) Start: 02-12-2020 take 1 tablet by mouth once daily Uevgvlww-Oqi-Dlmoo -Vit K-Lycop (Men's 50 Plus Daily Formula) [...] 28, 2020 12:00am October 23, 2024 4:00pm [place] Oil-[place]-3 Fatty Acids ([place] Oil-1000) 1,000-200 mg Capsule (2 sources) Start: 02-12-2020 End: 10-23-2024 take 1 capsule by mouth once daily [place] Oil-[place]-3 Fatty Acids ([place] Oil-1000) 1,000-200 mg Capsule Discontinued 1 CAP PO Daily February 12, 2020 12:00am October 23, 2024 4:00pm Start: 02-12-2020 take 1 capsule by mo [facility] once daily [place] Oil-[place]-3 Fatty Acids ([place] Oil-1000) 1,000-200 mg Capsule Active 1 CAP [...] lower limb ischemia ; Translations: [Atherosclerosis of [place] arteries of extremities with gangrene, right leg] [...] Value Interpretation Reference Range Facility Coding Summaryon 01-23-2025 Coding Summary HTMLBase 64 ZiymmlwmGEj9fMj+PGhl YWQ+ER2AJIGkE31fcZBt xY8uH7HYYNzSJjdgUUTT FZeCXuFrjsXtRA3xjIKb ZXJu IC8+YY4yLYZeKhlbxHJc u5I5jJZ9I28bzo6jUCif iZN4DXEaIoShoxkqx1bo rMh2XRcuYmtkUeNy SMIfkO78HHP0qS72Wx22 gTRltGGww3ympCa2ZlCr FUKwOAT7fBihSKoxq6Ty TVOqC18xdCSmd5D3 IGNvbGxhcHNlOyBlbXB0 gS9yHBwtgqzlj2btmmeg Nse0fm38nYSxa4Z2lXP0 K6PtzcE3AVXhbWJf UjpidZSZzC7ztigdh1me rtkaYkMbAUGxQSt3PSr2 AWIncRvoQyTrGE69OMB6 CFPxraLgV8AtFMOd mNwoRcW6g5R6Yv8QE3TT FrqaH3KFXELNVAdtpGX+ YM04js67H4PmDcqlBmg9 ETBiLCM7wTQ1yU7z VBJsPOmms2P9hDC3K1Hn vwDvvo0qv9seNGQmDLwm B19ogIGuw5U8PKMtpAY5 KODvhXdmNpBxbI24 Oyc+WXWfjEhnf2EdOpol e8zqb3vozDn7FefzECNn bjZozYejBQF9o0JdFt9e GNQfrJS1vID6sM4t PqWdNuC8RIxaJ538FdAf dVNxRmofZ96rI5JswPH+ SLFiKdy4FYOvjWhjTJ7y I4YkYDItfrlulSJq dYrnBO4dZBNvztsnPFWu oL7uXNGbX3m7HsThGqF6 FGfoL6FaIKAiledhJk96 wO8dZsEwNeG7LHpg Y5PrbaU9QNRfeEXcKVsh LIJ0Z02uy1Y3ANLaVIBr BIG9cKU4tR9dwWzaiday bGVmdDsgdmVydGlj SVmaWUeeA473LAVrcIrh PkNvZGluZyBEYXRlOiAg MDgvMDcvMjAyNTwvdGQ+ RJEfPIE5dBtuBSWv zWVhZBokXs6xvCtsgReh VZ0gLEXvfkonFVSlhQ0r AYRwmCLnySbnEW6cKXUb cqgtm190ByFiELZ5 FGKqxMCgD7HpnD3rJnLr ZUWnUECuK8KicWTnJFni J917CRcaLxT8OZCjnmIt N3VjONRbpBufFkW4 o7F8Ut3Nj2WycfjlH8Zs xTAnTyIfDguiVBh5X0It PjwvdHI+GA22DKXkDI58 DVm6YNC5aZjsEWpj BBAjL7ImfC5rHqLuTVNm ZGRkOyc+PHRhYmxlIHdp ZHRoPScxMDAlJyBzdHls IC3hCz3wRGXzWWHv nWpljJPrGzMtd9siZANn KVngCY3jcAthA0CdaPM3 WSHrh8i8Xx59T42hJ3Bc dXA+ORLpyRQ4aEY8 jU1vXnNkVnY4UVumE752 NsLsrDBeBlsfe7dko5bl oZm2KoI8NHEbinEckBaj ZZA5h4LqQl78B41q IHdpZHRoPSIxNSUiIHZh fWuczf8syS5oYv1+PGNv cDL1lBR1hN5wRyCwThK8 EKidY619SpWfmGVp Ttdfh6qct5rjnWk6CjGi YSFszqEhoNieTZY6h9Pj Rj62W9FyfUtfr3VxKpy5 bx92zHHiv9B3dPP1 G4WfJEMycwfmfWZkaPuz JG7wXLQbuhgdEOMaxW3x CYBrH3a3SwOlMtI0LPdh Z7OifxY6XKYpwDWw MZGvlFPLwZ1cvseku3ak dosjBzQfURYrOPc8ERu4 WZIptJckEcPmVCN5XxH2 CCE0hPLzzJ9zpFnn rgprcH6lOyc+TWT3fBSr pNFEOA4mMuhlhAM+PHRk PRK9nSdoVSneXAPdsY9b VJDuO8z3LlCiPuQ7 CYkhA6BcneS8UVQefEVq IVRclLTFlJ5pwrmhg1al lqrfMkBjJXXlKNe7IEy9 LWFsaWduOiBsZWZ0 VoC2NFJ4tZYzpW5woAgu ppjfxH2lLja+QmlydGgg AVK6JRx0A9SoPcg7TQTm oLydEV1oyTBbALpg Ml7zwRvykGskGA5gDOUu ygqwd672PnCeu7ioMOFj vEFgWLsbJEG7Q95na3C0 MGJuKNFsXEZ9aKL2 mD8hcCtiajgvbLTszSnd cbZfjThvOFzkJOawI850 XWPsgJkwRvBxNCn0B0Kp Nrs6VCHbjToyDP8z bCClDIewHu1sgTdouFsi KT0aXBQwtbarf814ToOy v3ndIXPcfCOtRXkeUPG2 W11zv5J5RNCpIOHj UGJ8wXT0hP0sfLrqmtwk bGVmdDsgdmVydGljYWwt MIspM817LBXpzDhaZwWq yZt1A8DmFyq1ZEGo qAqrQF6zgVIjOJvdEf6i bXcwcYdhLB9sRRNkrpqd o314StDwh6dpJLSroNVv MQohMJS4J32zu2Z8 QESoBXSwOIG9jUZ0uQ8x bGlnbjogbGVmdDsgdmVy cNhoJIgjCXxpC601SFCf cDsnPlBhdGllbnQg OAclGXd2S9KrQwtqtMS+ JT04LHWfBN05uXZnzUBd y9gnmDk5KgQbLWCdFEJ7 pQarWZaqq8CxYZZj I59dlUEyu1J1CUBkiQus pRIjGbVjuBE2cC1qYQmm atabk0toocrnXdoiy3lf im20vA16X75dJNtj ZHRoPSIzMCUiIHZhbGln bn5ofT4eCd7+PGNvbCB3 zUH7uB0rYIIkFdM4LAtk W591PhZvaTJuHpcb c0mgj3bmlQz2VeI8UDCu hqUauHmpFYZ7q3ChWm82 L03oSVkuHFRkNPTyMRUq EMFrdQtdbh5vgE3y Ii8+XYRaqNJ0iOI4hM5x SoSySbN1BYhxI170TkUi sVUdGfktY64kW7EiaFI+ USCwZkm7MNDakQwh MY4pqQHuBTuwTy6tBUG4 IfUiQeKoLTjqP7AtQHUn wjknhzfreRU3DYCzTBId lX14Yz0kkLblAITi nWRIsP8dfdbyk9yfvbeo LyQrKAQdGLr7HRi4XHVq dGqwMbUeJIB0OyI6IXM3 dKWouJ5vaRhpcssj cV3jT4MwRAJbxriwXn22 zE4xYxWvHrT9TAgaZnt+ E8ECWNZAJXAPNGjwFBTS IIYNTU54RA87tCXj h3Y4yMO0Z7CuLKWsnakr bierlQS2FCReQXYruL41 vEVmNDfeNj7gk5B1s057 JZIdBFTxgS38Dl8y bEanRQDjbWZUiL4xyejx u1swwxtvAqCpCBFoGOj5 TMw5ENSxvHheUfEgBMN0 GzS5CTI7ePJdaL4m xXtuurvfiR3vWzz+MDEv UEHjNUv1HudrdTN+PHRk RKQ0tDuoDXuqHJTooT3g GESaB6a5PmAsTtQ2 CDpcL2NxUMBvskecUk66 aE6jSoKmErK4OEsbN8Fk kjK8SCRxmAEpVSanSRR4 B48mu2P9SPWbFEVk IYW9sGY2qP8fvCyhzgzj bGVmdDsgdmVydGljYWwt RMmrF016WNGndZcoDsyg LUnpXLLqUT05BH37 nFSgp1C9hRU8T5AcXZFg rutgucsvrFP5JAEfCAFi eD21nTUfPQmzWx3lk1V4 m988ODPtUXRgiX52 Nf9wlRlcRJUboYUVlO6z ywsif2laoaiqObHqZRLr RYi0XDw9CAOxfPemEpSf IRH9KsF6JAR7lNZc yG5uxJkvorysyD2vNui+ TUFMRTwvdGQ+PHRkIHN0 eUeoTDsvCXRaaP2qVOFs W1c7OoKmIkF2YNkn E8XuLAKsewreWd94oX4p CbLyRaB3WQqaF6EqpiM6 VRXnbLNkIRfaEHP6B03u s4K5UBPxILSjHJF2 lJJ8yU1efHptdcdymFJn dDsgdmVydGljYWwtYWxp T188GJZejAzvBf9FYS75 FX39D8OzPaktiDJg bGU+PHRhYmxlIHdpZHRo PHogMYGeUyTiyLjnES7n Qf6tFACdJVNmjHmatGUr QyGmh7dySROlQBus HG0dwLclM4UpkAR1FAVr h1h1Qn94H97bW6BspKO+ VHSwhZK7cOD7xE0iZjQg GgZ2EWteK450FdAm yGEcRprod5jal6ksvVe0 IjMwJSIgdmFsaWduPSJ0 f2KiUu99U99dPSbkNCUn PSIyMCUiIHZhbGln ph2jqA1xPb3+PGNvbCB3 xCF4sL6mRoKeAuR8GWok Q841UxKasKUjXittC44i N8WhgHO+PHRyPjx0 NYAkuQshBX8vxXRwEGbg Yt3aZTL4HpGzThJvZFfp R5IrRFIveerkgidrrPF5 TFUiTGZpdP16Nc8o jMtoYi7uRRTrCAS1QVYf gFEhS2HtqN2nRkWoRXNq COMoW1BpdWOzHXrsB298 DSoeVuC5LZUpuhGt G2OePJXzkNidYrP7p2T6 Nz0FwXnqmKQzYW8uQgUr LLp5B4SfHxk0VWWstLay JT9tfEYiZPrvXl4d iOwzlUovAV7sVRRrxouf k352IiKyv6ylULEdbZTl KLkiNXI3B89bm2A9UDJy CTErEGG1vZB1tW7i bGlnbjogbGVmdDsgdmVy sGldQCngQFefZ091OKJq uFnnYyHGVsb6W3WrAem6 DODwuXgeFE7tkEDq IPbeNz8kjDaikJzzYT6u HLDxuasfx561EnEpi1bx FCSsfJWkPYmqTYA4M48i b8G1GJLhPVGhRRO1 kAP9dK4jtZrzeefskVGd dDsgdmVydGljYWwtYWxp G922GEYsvRnhHb1CTki0 O8BgAww6HKGeoHcp TE0ixIVlOTraMg2zlShg yKtaUC0gWZNjjdnzl948 LaWgh9txFFZqyBJbICyz FDS0B39yr1C6DYOk PIAzAGD5hQW0cI4moPxd bjogbGVmdDsgdmVydGlj YVwjMXnvV299AEDfbWsi PlBheWVyOjwvdGQ+ HH62vq33L7ByLsyoVlu2 AVPdPOH4vWY3iG0sVTIh HXyji6W9oYG5W1UaeyHu wq2dp3cqVLNtYIax Y29 (more content not included)... [facility] Coding Summaryon 01-16-2025 Coding Summary HTMLBase 64 FrckaufxPOc0lCx+PGhl YWQ+UG9VTLOdP54rvIZu rL9zI0ABAYeZNkptWLGT ZFxBJjDctbUtVE7luNNi ZXJu IC8+HL4fGLZcVtyppPBz w6U5oBN5M02kge5jCHgv dLW5NQJlVpNtugvdg4jp hUd8ENgnSewaRvZd VWGlwT72TGG2eP89Yi67 hBCkuMGku0afaOw4PqSo TULoQIY9eIneYNalu9Oa BUSjV37yqVCbd4T5 IGNvbGxhcHNlOyBlbXB0 yF9zWObesoxat0dmyhbn Tsg5ak21fWJxq6I2mHY5 Q5JcalA0GSNfqKAk OjptgLGYjC1fewqjo0np qdolGlZwFJDnAGe5EIa8 PERciIxtQqLsLZ89LQX0 MNFdnmNwO6MeVHHi sFttSxW9b4L1Gh7FU8OK VxllC8HSYIYLTLgxzRQ+ RU81ye21D0CaDpgwRwr4 JUAjNER6rYY7xR3w HSEjFOwwe7Z3tFD8T1Gd nhYwsm1ga8lbMZCiMIed C85rxVYxi0F4BCAomFC2 ZGAtgDbbXhHzkQ37 Oyc+VTKomKdjy1RnWlyi a6lwp0zdhFr7LrcpCQPv nrBvuXiyVXM1e9TuCu1b VIEbuKZ0fUN4rC2c FrHcCzB4NXefV145KlKl uVRxPenuJ55hQ4BqdGE+ JTXjKqw2MMFtcCwjZD6j M9SvFCCczltnkDYc xEezSZ9tRQHjdwbcOVGk jG5fPNZwX5t4XhIrDhC3 PZuuB3YiFDFvsbuvZk68 sP2qBcJlZtD7YHfb O3MuweK1ERAsxBBeCRgt WQN2Q90xl7U2XCNwNOJy QUS7pPE1wF5zwHpomuwr bGVmdDsgdmVydGlj AWsbXXnuI329WTBubHxg PkNvZGluZyBEYXRlOiAg MDcvMzEvMjAyNTwvdGQ+ VSTnLIR3pXyaPILm cDVbSGxtWp6uyVddlQvf TW6wTVJkhwnxZMEarU0r AYEhiQWzkCkrSQ9hIHGx nykwj352TbDeDSK6 OYAvkETwB2IwlA9bBjJr MCPiSETyH9KfiHYoLKqd Y737NNnsDtK4JOQzowQn H4NwTPMivPdlCfH9 y4W8Zj6Wz2UazdfuO7Ae qGArZrKvAwuhDGi0V4Fc PjwvdHI+IM51ELVnGU63 QKh1KNQ2lOcsUFos VJOrW4RdrF9dZxVqAJDz ZGRkOyc+PHRhYmxlIHdp ZHRoPScxMDAlJyBzdHls YU9sGk6mGIXxELDp oDtktGGrXhLzb9nbUMFt GPxqVN8oxLxlF3HviRI5 YMTng8y6In19U84gV1Tv dXA+IBLygWQ4hUS3 iD1mHvItZiU6BMfpN325 NeJevKLeZwuee0muf9hf sZv5OpX8IHZuqcTpcHso PIX1l1CzOm87W71f IHdpZHRoPSIxNSUiIHZh hGyojl6naM7zEn2+PGNv sSW9gVP7zY6xAzUeMeN6 VOcoS064NvDhlISd Czaqd2bgu8qnbVe6AtLs KORfnvVffNoxVFM4z0In Jf30I9HizQfzm4YdXgr0 st69jDYzb9D6kDL6 I3QjNAYoapglxWAlkMrf QS7vBYGjagacUGOiwD3l BBNcE3y8XlMxNqX8ZBko K9QagxP9YQRbbPYu UGSqoMPWiB5khxchn9fg ckqaCuXxONCxRHx7QTg1 VURmsQxlAsMmHAG0WrR4 YUO2qCRlpX4mlEvo eozntL9kUzs+YKP2iBZp dUAGMD0uHmjxnRW+PHRk ZTT8xXdpCSgoQGVhlJ1b TJNhP7x2UcLyBrO5 DBxyQ0LdflW8WSWpkGBs VQVzeMFDuV7mquzga2zt nmcyPaXsUHEyDZk1WZb7 LWFsaWduOiBsZWZ0 AqA3EFX1jPOdfD2ckLpp qzyohZ4cWsk+QmlydGgg ZBI9NLe8D1EpIef6RYFr mQxrPJ0niPTeMXuf Zt2jlWlndNscZJ7aVBAn fkdgf566SjJxo9ndBIIi fNNaCWzdOGF9G30tn2R1 VDBtSWRyRBL0bSJ9 jN0ziZivkfjkjUVosRub qbLxeLkrDFmlTAvpM655 OSPhiAxdMuWyVJm5L6Ps Yol5YBTzqWgvYG7w zQEyZUnlKe4oeIedxWhk QN4kNJSemqqva155GyDb s0hnBJJziOTfLIonEKR3 H94ml9J5PYKiBPGw OWP8tCB7xS4tlQybszhb bGVmdDsgdmVydGljYWwt VFnmS106CUNerRfmMvBv pAh0R2VwUec7CSLj sHqsQE4yqBZkGDecSl5a vRspcVodED5iFREhpujg t310MoMep5ymQBYimTHr CDjkRBQ9Z68dw5N2 WPIdHCNcJRM6qYW4oX4h bGlnbjogbGVmdDsgdmVy mMlwDZseDLyiT596MUQx cDsnPlBhdGllbnQg HSmaIWu9O3ZxLaktyEN+ GT52EBTaYL23cBDrvITu l5jyaVv2MnEfCLHjXLJ7 hFwqVSlub8FrPDUi C41usRThq4C9YIHfnZqv eZOcAyCrwZJ2rH5aVUyi mjtaj9orerxzOtylb4sk mq56mB18S31pQJgk ZHRoPSIzMCUiIHZhbGln zb9rjP7aXt7+PGNvbCB3 lXY2kH9uLDUxItR6WMln I900VcEtrMDgMdea h4wnl0crcQs9ItU4OJXh gvVxaTxoUGS0l4PqXc13 D17fIPfzMUDoTPPqIUJt EHBgzDkmwv7cpW8m Ii8+PETmgUC6fNJ1oS0k WhHxOhJ8UCywU240YlBk lNDnRhclT91gA8SlgEP+ UCXuMls6BTAdhIeo BS4woXOpKBzkVq7yAEL7 MlDvUkVxPVmnL9PnUUQs rpzoexdttJS7GBBnTPQg iR99Hj7gwQryFAWe zIYWzB6qtmcsv3ndsklu LpKqAJKyYQd3USv8IHZj xLunQhLqDVJ8VzD9JYP0 eQQtmU4vaBwxidkb cC0dF0OuYPHbsenzSp14 yD1dTgAnSuD4QTrzGco+ Z8PPDMFIESZKNSfnQJGZ IVOLCD84DB37tQDh j1M2sDO0U1RzZBBdkwac yqdqkHL7KSQeTLFzaT24 uDGvDLmgBr1ln0B5d621 UAKdOMWetA99Js3q vFkxKPKspZJKuE4ksufk f7frmzniByIwCZWuWKf8 AWr7VMZetRwfSrGtKRL6 WeT7FRQ2hIDcyJ2l jJcadlhuzA2rYne+MDEv PDAuGPo3FydviWV+PHRk OVF2mCzcITsjTLRyaT1f MCKfQ0s6BqKmMmN0 ECdtS0ZhVTQqixlxRl67 sB7mHoTkHxG7IFodM2Fu irW9OSQdgXHtWAvtIFT4 I72ct6L0PBZpSMMv ZYO0jOP5fU7dlGcmkzmi bGVmdDsgdmVydGljYWwt MNmyI862GUSqsHxfUvlq UKfmDMVoVL48IQ28 zQVer6U1uZU4P4TaFXLv ptlydmsbiGX2KQGgSWIh tE03zJCaHJdeGu8ai7B6 d462YJSnSFQidI27 Bb2hpRvxWKEvsSSNaU6n etone7syycvqQpTzJZBd CIz4TLu6QJPkwRcyTrMb LXO0DwI9UVN9cNYi uO0asQmwjnnvjC4qJui+ TUFMRTwvdGQ+PHRkIHN0 tUzvRUxwHNJwkC0bSJId T7j9RaPiVvG4XQoi E8NrVWKlakdyRy44wZ6e MzQpYpX4PMrsU0HtkrB4 UUXksLJeYMthNQO9A20t t9W5EXDzAGSkEHH9 wPJ1iY9jvRgltwedqFMo dDsgdmVydGljYWwtYWxp X004JCNfxGyaCc8LMF53 KM66J1DeDgoqqYVh bGU+PHRhYmxlIHdpZHRo RKjsUOMpRySshNezPY0x Hr7fJDWuPTRhlDrxcREz RdViv3xnSGTlLQzz WO2rnXnrJ1IvyQD1ELHb x6j2Jm26S07dW3GhvZF+ QRHveLR9eMH9oG3jCqSs SiK4MFzvG358BtLz nGTyMnkue2uwn4nbvPi9 IjMwJSIgdmFsaWduPSJ0 b6EcQy36I56qQWqiAHIk PSIyMCUiIHZhbGln kb2utH0dGs2+PGNvbCB3 vAY9oG8lUkXyXcF9DLju Z205OdOfqALvHopdW44m L3NqzBI+PHRyPjx0 SVCxiIpuDW0naVBiTZvi Tz0oQMV5YhGiUlEiTNmu Z1FaYOMpfzxdxhdatIW1 VBPvXHCxoG80Dm8x xHjfQx1xVKJpPCI3PGYc lSJkJ2JxaF8tGmXgHWMg FUFkL1QqaNChHAlbX254 KJysXqI1FFDlbdMg R4NqNNLutUxtAuU7q6M8 Po6YqVwrqSVyAM4eDpPz SBq1Y6XnSfl7GMOtrYvr GH7kfOBmXBgfCd9h pFjfaPioJU7aBLCaqddg k168JtHpw8poIJXlhKDs OVkbRJH2Y45hv3R6ROYb ROAwNLR3uTM9yL6o bGlnbjogbGVmdDsgdmVy pIwvMNaqQQtjR605CVJk iImhLuXZXty3O9BeFzp4 BPXpdJhbLR9dsTZc KItrJo0zuVkegRslBN3p RJJrvwixk170VqVqj2sm EWNroLVpTAilFZJ0A94g b4T1PVYwOFWfPZM4 cAX1iS6etCwdssbkjEHl dDsgdmVydGljYWwtYWxp S490IAMwjXgxXc6VAuw1 Q0ZyHoj1UOKyePkz ZP9ktTRsLTdzAy6lgZoh sOfcBF0sFGBrusywu432 EtOav3kxPVYsvFYaCWor MVH3C01kg9N5VKAp DQXgZAF9nYF4cY4juMyj bjogbGVmdDsgdmVydGlj CYbfYMlnY691ANImhNrk PlBheWVyOjwvdGQ+ JZ49jc16E2MbDzwdBrq3 GBUvDWS3aJH1vP5yDVMm ENazl0O5tKH4C9IbhcPw zx4sy4txBMCdGZap Y29 (more content not included)... [facility] Office/Clinic Noteon 025 Office/Clinic Note Patient: RICHARD BOYKIN Age: 84 years Sex: MALE : 1940 Associated Diagnoses: Type 2 diabetes mellitus Author: Marj Sorensen MD A History of Present Illness 84-year-old male presents today 2-week follow-up of the changes in his diabetic medication. We had him stop the Jardiance since he thought it was causing him to have dizziness that has improved. We also have him taking his Toujeo 20 units in the morning and 15 at night. At times he is taking 20 5 in the morning if his blood sugars are running higher. Over the last 2 weeks looking at his continuous glucose monitoring system his average came down from 183 down to 164. He is feeling better. Review of Systems Constitutional: Negative. Respiratory: Negative. Cardiovascular: Negative. Health Status Allergies: Allergic Reactions (Selected) No known allergies, Allergies (1) Active Severity Reaction No known allergies None Documented Current medications: (Selected) Prescriptions Prescribed Eliquis 5 mg oral tablet: 0.5 tab(s), Oral, BID, 90 tab(s), 3 Refill(s) Freestyle josee [...] Refill(s) Metoprolol Tartrate 25 mg oral tablet: 1 tab(s), Oral, BID, 180 tab(s), 3 Refill(s) Toujeo SoloStar 300 units/mL subcutaneous solution: See Instructions, 20 units in AM and 15 units in the PM, 12 pens, 3 Refill(s) allopurinol 300 mg oral tablet: 1 tab(s), Oral, Daily, 90 tab(s), 3 Refill(s) atorvastatin 80 [...] tab(s), PO, Daily, 90 tab(s), 3 Refill(s) montelukast 10 mg oral tablet: 1 tab(s), Oral, Daily, 90 tab(s), 3 Refill(s) pantoprazole 40 [...] mg oral delayed release tablet: 0 Refill(s) linezolid 600 mg oral tablet: 0 Refill(s) loratadine 10 mg oral tablet: 10 mg = 1 tab(s), PO, Daily, 30 tab(s), 0 Refill(s) nystatin 100,000 units/g topical powder: 1 josé, TOP, BID, 0 Refill(s) traMADol 50 mg oral tablet: 100 mg = 2 tab(s), PO, TID, PRN: as needed for pain, 0 Refill(s) Physical Examination Vital Signs 01/16/2025 10:47 EDT Peripheral Pulse Rate 85 bpm Pulse Site Pulse Oximetry Systolic Blood Pressure 126 mmHg HI Diastolic Blood Pressure 76 mmHg BP Site Left arm SpO2 96 % Measurements from flowsheet : Measurements 01/16/2025 10:47 EDT Height 179 cm Height/Length Measured (inches) 70.47 in Weight 106.59 kg Weight Measured (lbs) 234.99 lb Weight Dosing 106.590 kg Body Mass Index 33.27 kg/m2 Woodrow Body Weight Calculated 74.087 kg BSA Measured 2.3 m2 General: Alert and oriented, No acute distress. Respiratory: Lungs are clear to auscultation, Respirations are non-labored, Breath sounds are equal. Cardiovascular: Normal rate, Regular rhythm, No murmur, Good pulses equal in all extremities. Impression and Plan Diagnosis Type 2 diabetes mellitus ([id number] E11.9). Plan: Recommend continuing on current dosing of medication and holding the Jardiance. His average is better. Will have follow-up in 2 months.. Orders Orders Evaluation and Management: [id number] Office Visit - established pt, Level 3 (Order): 01/16/2025 10:46 EDT, Qty: 1, Type 2 diabetes mellitus. [Electronically Signed on: 01/16/2025 11:12 EDT] Marj Sorensen MD [Verified on: 01/16/2025 11:12 EDT] Marj Sorensen MD [facility] Outside Recordson 01-08-2025 Outside Records [id number] 2#[id number] [facility] Office/Clinic Noteon 025 Office/Clinic Note Patient: RICHARD BOYKIN Age: 84 years Sex: MALE : 1940 Associated Diagnoses: Type 2 diabetes mellitus Author: Marj Sorensen MD A History of Present Illness 84-year-old male type II diabetic who has been having issues with his sugars. He is also been complaining of issues with balance. He had seen an article where his Jardiance could be contributing to his balance issues and would like to try something else and send the medication he also spoke with a chiropractor who said some of the generics that are yellowish in color the diet can contribute to the balance issues where the white ones do not. He is also not taking his an insulin for the last 3 days because his blood sugars have been running low in the morning. Patient has a history of self adjusting his medications although his A1c has been running at 9.1. Reviewing his continuous monitoring system his 7-day average has been 183 at his 14-day 30-day and 90-day are all over 200. Review of Systems Eye: Negative. Neurologic: Negative except as documented in [...] mg oral delayed release tablet: 0 Refill(s) linezolid 600 mg oral tablet: 0 Refill(s) loratadine 10 mg oral [...] pain, 0 Refill(s) Physical Examination Vital Signs 01/02/2025 10:56 EDT Peripheral Pulse Rate 77 bpm Pulse Site Pulse Oximetry Systolic Blood Pressure 116 mmHg Diastolic Blood Pressure 62 mmHg BP Site Right arm (Modified) SpO2 98 % Measurements from flowsheet : Measurements 01/02/2025 10:56 EDT Height 179 cm Height/Length Measured (inches) 70.47 in Weight 103.42 kg Weight Measured (lbs) 228.002 lb Weight Dosing 103.420 kg Body Mass Index 32.28 kg/m2 Woodrow Body Weight Calculated 74.087 kg BSA Measured 2.27 m2 General: Alert and oriented. Respiratory: Lungs are clear to auscultation, Respirations are non-labored, Breath sounds are equal. Cardiovascular: Normal rate, Regular rhythm, No murmur. Impression and Plan Diagnosis Type 2 diabetes mellitus ([id number] E11.9). Plan: Discussed with patient would like him to restart his Toujeo taking 20 units in the morning and 10 units at night. Will have him follow back up in 2 weeks we will recheck his continuous glucose monitoring system to see what his blood sugars are doing. Will also have him hold his Jardiance for the next 2 weeks to see if his dizziness improves. I doubt it is related to his medication.. Orders Orders Evaluation and Management: [id number] Office Visit - established pt, Level 3 (Order): 01/02/2025 10:54 EDT, Qty: 1, Type (more content not included)... [facility] Record[facility] 12-13-2024 Outside Records [id number] 56#[email or web address] [facility] Coding Summaryon 12-06-2024 Coding Summary HTMLBase 64 ScvwegwrWBj0aFl+PGhl YWQ+QQ8YOKPrD07crKXq xX1pI2PUSHiELtltOFGG OZdUJoWozrEiUS2vqMAf ZXJu IC8+CW7qPWWnZanhyERl v9A8uGQ3D77vfe0lVWqu cWA9TGZbVtTtihrrq0bd kUr4OLwzNxjsEcSc JXGuwI73VGE6mU78Un82 zBXoaCRzo5ocsAt8VfUo OTPaIXW3wOptKRaap2Wo RZXxC74bsAXtq4K0 IGNvbGxhcHNlOyBlbXB0 lJ0cZXbtylalr0vawbii Dar6ma35tXJfz6Z7gRH4 N5SlnmV6KQTodZMf TamnjBWXnG8zbxqgk5gx clzkEdHwTYUwODz3IFv4 FZYbyIqhGfTfME03DYT6 LNUeulSmK1RmKIVo iLxjErU9j8K4Pk6FX7AS QsnsK1SBPRUHXWpxlJM+ RN33ub44O9PyLkamInz1 DFWePBF6wEG9eI7u VDXjOYpsy2Z2fDD9D0Px tzRzee8wz7ubWINlSDzk Y25bgUYny4B3YWBwkJG6 JYXimTokMqOfmN00 Oyc+LLKgcQord1BgIttz y0uol0stcJq4ZrhcWGRl ihRbiEsrZQN4q5XtFb8k DCRzcER5kES5tN0r HwHdVkQ0HTigE294HjRe sAQhLygqQ27yK4WkjLC+ WHHxNhr3UEGuwYuxGB3b Z8BfNGIfkymelCVk iYwkZV3jQGBtbkkyZCCp lH8tOHAfB6j8NsRnItK8 PJdiE0PgFZEvlkrmCp38 zV4dWcQeAmF8PBlq R6EppdU8PZAxtAOdCVvb GOZ0E01lk4C3GRFsQLRv LXE0eBK9jC0rtHwvawmz bGVmdDsgdmVydGlj CMhcJUdyF543VVJsvVel PkNvZGluZyBEYXRlOiAg MDYvMjAvMjAyNTwvdGQ+ NCUrRZW0qRhaNFQe qJWvBEpiCu7pnKwawEjj EB7tFCBrcfmfKZTobB1i IJJyhORmmAvuHX1nBMSe wsxhs398EgVhSCK4 ZILbhUZtM2CeiU3wUsVr TXYpCGDfH9KibVHjRFpl J295UNbyJwM1PUMchoOx T1QsGZIwqAywNxX5 q0W8Ng8Pg3ZbkvelF2Zh bJAcXaXwKhxvPUg4D6Hv PjwvdHI+NC19IOXlUM20 AMs8ABU9dOiaSJso WJNbD2GrpV2sDsAxQFJl ZGRkOyc+PHRhYmxlIHdp ZHRoPScxMDAlJyBzdHls XX8oEj8pPEGhOAHa zBuheCUgTbGgm6vdQRXw RItrNS0mlOnxN4HrzBR1 PKCwd9x5Oq07N95jL9Zy dXA+SQXshYM6bPM0 eN7dBzQrLkJ6EBkzO033 WxIjdWChYzuxq6dgq3jj uNv4LnH6PQBmnsYmmPoz DOI0x1AwRa12C23r IHdpZHRoPSIxNSUiIHZh dMbesr7vyA2fSg9+PGNv jVH0bNS8vQ9jFzFqGiY8 CZgkJ940YcBaqOOa Kuenp5oyx5mmgIe0IxPu UIJjjvNhrKkkFUI2p0Vr Ah09S2JvqCgdi6LdBjw7 gb37nXVoy7M5uDZ9 E2YcKXYpokuhdWXlsMmm RP3uMBZqvackMKTnkR8d OLYeA5a5FsSbCqN2ELqn F1StyqK4EZKvgOOm YBPepPESlD8cdzzxu3qf rgjiSwXoZFTnSTc9OMi0 BEFspAysQbMuVWD5TeU9 MPM0rPVobK0rfCyi wyyrzE7zZjt+NVI7mFTx hCEEGD2wYwdajYD+PHRk GWP7iDcuBAmwDVZkbJ3t OAQoR4q7ZrEyWaV5 NObaA9DfhiY4MBJcoMQm RLRfvXKMkG1ynfqhi6pi umudCnMbYGXmPHu1WOb0 LWFsaWduOiBsZWZ0 KjV6NGX2yLTarH7qyMxm hmcfmM9bAas+QmlydGgg LXV2QPe1I7JmSbv3PNEf mDnjOR3moWMqCDez Zq8yiJvbmXhfCL8rMLVf ecwul045OySzw4kkITNg vHGgFMtdDAP1A93wl8G8 OKRgSOLcEAA0yXY2 lN9ptLigugrabCBxnVem lmPnbKoyQNsvIOkuI013 EUEeqYmdEoWjDYi2O2Ov Zgl0TBRhyOpfMP9g lGCdRDolOv6unAsuhCfh HB4yEPMcznvay114YcMm a1eiTRWmgZHmJLbgGTZ9 O72qx2G3AOGgQSAg GRG3zYD2tU1fbBywivxs bGVmdDsgdmVydGljYWwt QPksS819FWIlcAtoMqSn iTn6Z2NqAmz5OHLl xVmaWQ7huOKpLIjkZu5f gJpwnJvhMP8rAQStsokg d028OkUon5ctEKTrbIEv KCbeAMC4I71gr0C9 KLOwZHIrFYG3lWY6jF8i bGlnbjogbGVmdDsgdmVy aDanWLvrDDgcQ363UNMl cDsnPlBhdGllbnQg LHxgANj3O8FjDrayuWE+ OX78GFPbGV72kRWlvXNg t9nyjKq4DfGzNSOwVUK9 cVodGZrhd0DfTVCv Q10syRAfi4D2CPPyvYat fUUsTaDarHW7zU6tQAfz cukzy2ghsrtlBjhva2dz nj24rW94F17zHRgn ZHRoPSIzMCUiIHZhbGln is9bkS9aGf8+PGNvbCB3 hYT5cU1jVQJiZzO2ZGmv H312BdQnbPVdCniu o4orv3kumGw4TdL4NSKg omUpeGeqLOE1r8XaKq45 E57nEIygYZZkGHVlYVGa QFCijWliti9lzY8p Ii8+XIRnzXY2cUA8bE8s PhJmWvE7MUpuM832BgJi hKUiRgyqQ43hX6ZzxYW+ XBVmQvi8IUEdgGsv LH7mqXCvSZzzUq9oTOE9 BgWnDnHjVYdsE5LcXKPy zccmnyyqdJO8VJDnAVUl fE42Kq4tgGcbLZNz cSEHmL8idugyn8ykjxzo CnCoWLQnGCp6DFm4ZGRb vGsuZeDkMDP9RcP4WVG1 sXLrtO1gmWmxmbbn tH6vR7BoADTcqawrLr82 lI8rLqBsFbC2LGyvHwa+ Q7USVTLWWJGMIHkjRPEG JODMTV05BO43jXMt b2W9jTG1U2UiDRHvbkhj cqfssQC9AEWgCKZzfB53 eOAvIMwlSa3yc8Y9a447 FTLvYAMmzQ44La9f ePtbEAQsmRNXhN8qltjn u7vycwifJrYtCHImUEb0 GSr7RDPsvLbkIqWpVFK7 ZwX4ETM1oTBtgR6i uQwpeuoetN3lInz+MDEv WGEqYPd4FqybeFL+PHRk FEE7qKneAFpeSPDchD9v CLIhX6a7EpNuVbD6 IOzwE9IxQXLmdgznTl11 wP4qRzHiVgZ3TFdqZ8Bx sqF1JXUrdEVkVEdtZAE0 O98uq1O3IBYmZMAg JEM5gJK5eG2gcYpzmxob bGVmdDsgdmVydGljYWwt QRfnD971PUMtgAgiIegy HMelCLEjJD91ER34 yZKfc8B3hYL2G0FgHABe zyxebyvomYM1ITPyEAAy zN60mSRnVNhoLr3qq8M4 e105EBXoMMZxlV66 Eg8nfQimZNLptUDLzU9l iwtlt3ecngynTtVoVWFl DSc8OXt7COQvuMqdNpOw NYF7ReG3LSZ9cJAg uG1nzXthhrnzmL5bDzd+ TUFMRTwvdGQ+PHRkIHN0 tEhhUQbyLIFzgK5sCPEu F0g2TwUjXlG4ZIaf O1EmWFGtotyfJx56aD7t SnOrJeJ0NVjyF7ArqbL5 ALTvdHQcFXhpACK4F99z b2J7LVWeYQXlLHU7 jND4uZ6pzHlwucqlfSCs dDsgdmVydGljYWwtYWxp S598AAGddQzjZx6GMI40 YZ59Q6TfMdzpzZCk bGU+PHRhYmxlIHdpZHRo RJgvMOSuOkXqbOcrMN5z Mk6tYRAvZWTqdZbygMTj GwMwe0lqAUAqCPcu TJ1xqCytI6NdtIV7DJXc e6y2Os70P95pT7PdcFA+ SNZxiYT4zNS4rW6fJnHg GkY6PFeaF097HvKw uGSsHatey1mff6eeyJu4 IjMwJSIgdmFsaWduPSJ0 l4ByCy89U65gVHpaXTBm PSIyMCUiIHZhbGln kr1hhN9mOx8+PGNvbCB3 ySH2oP9kPpTpRsN1MCzr S969LeVjsMFxThovR10t P7LauXN+PHRyPjx0 SDVniPlpLW5rvMBgRBxo Ut6sZPL6OfLlJvYcAMbe M2ZkJDBhtqbvxvdduII9 IGUaHOQesL28Fh1d bWfqEj5zSJKnFNI7FGEw jURmT0TttY9aZqIfQHNi RUGpM0OtrIQaSRonS497 ANhhOpV1QKMfziCy W3VwQOXbySvwKxI3i2H7 Ei9JsLqopPExLB6dXlMu NXo5W1NyOfs3LFUguLmw GX1xtWQrBYnyIr9w qPqstKvcSR3cJQKgarhd f800CeVms7uyPEUwaOJf SGwnHQQ8N44mz7O2RAOd FRJnPTJ9mDD2bO8o bGlnbjogbGVmdDsgdmVy oFoqDOkuPZjaT813SMSi vQwuPxPERua0U9ZrJsh6 JQNzbFieIS2shPCe CHwyRf1gfEtmoJfoNY6n VBStgnazm083LbPps3cy OAJghYAkUUfaOCB8P71u b5N4SDVlIGGiVKS3 yQI4iG6fyPlffjvdnQEp dDsgdmVydGljYWwtYWxp M268DEGjxDtpDg6PIsf2 Z1PfAxi8EQKxoWcj XM7rpIDlFPdeIi2yjZsj uYrgSP0vVKWobgocz570 UdTqa1vcDCJygIHdCLxv LJP4E24gl2V8LDTt KEQtJSW1kJC0qG3nrKbc bjogbGVmdDsgdmVydGlj EHfgMLjkU236WHVhdTga PlBheWVyOjwvdGQ+ ZQ70ai93S4WkKnuoRnz7 NEIsOPM1uZZ6jA1gSVRo BGjim2X0cYF9S0LlwiJo cq1yk4rgZDMzGWae Y29 (more content not included)... Normal [facility] Office/Clinic Noteon 025 Office/Clinic Note Patient: RICHARD BOYKIN Age: 84 years Sex: MALE : 1940 Associated Diagnoses: Diabetes Author: Marj Sorensen MD A History of Present Illness 84-year-old male presents today for 4-month checkup of type 2 diabetes. His A1c at last visit was 9.1 today it is 9.1. He does use a continuous glucose monitoring system for concerns of hypoglycemia. He is on Toujeo and states he is taking 24 units twice a day. He gets nervous if his blood sugar is 140 in the morning and will not take his insulin till after he eats then he monitors his sugars come up and by then it is too late and will take his Toujeo. I discussed with him how Toujeo works that it is a long-acting and slow acting insulin and he needs to take it first thing in the morning regardless of what his blood sugar is. Unless it was below 100 he still needs to take his medication. Looking at his continuous glucose monitoring system his 30-day average was 220 14-day average was 211 and 30-day average was 208. He is rarely below 140. He did have blood work in October which was reviewed. He also continues to follow-up with his flat hammerer. He reports he currently is seeing his lumber yard worker for an infection on his foot. He is currently on antibiotics. Review of Systems Constitutional: Negative. Respiratory: Negative. [...] mg oral delayed release tablet: 0 Refill(s) cephalexin 500 mg oral capsule: 0 Refill(s) loratadine 10 mg oral tablet: [...] pain, 0 Refill(s) Physical Examination Vital Signs 12/04/2024 10:28 EDT Peripheral Pulse Rate 55 bpm LOW Pulse Site Pulse Oximetry Systolic Blood Pressure 134 mmHg HI Diastolic Blood Pressure 78 mmHg BP Site Left arm SpO2 95 % Measurements from flowsheet : Measurements 12/04/2024 10:28 EDT Height 179 cm Height/Length Measured (inches) 70.47 in Weight 104 kg Weight Measured (lbs) 229.28 lb Weight Dosing 104.000 kg Body Mass Index 32.46 kg/m2 Woodrow Body Weight Calculated 74.087 kg BSA Measured 2.27 m2 General: Alert and oriented, No acute distress. Respiratory: Lungs are clear to auscultation, Respirations are non-labored, Breath sounds are equal. Cardiovascular: Normal rate, Regular rhythm, No murmur, Good pulses equal in all extremities. Impression and Plan Diagnosis Diabetes (DUJ12-GK E11.9). Plan: Will have patient increase his Toujeo to 26 units twice a day. Discussed with him about taking his insulin regardless in the morning. Continue to monitor blood sugars with continuous glucose monitoring system. Should follow-up in 4 george (more content not included)... [facility] Provider Orderson 10-30-2024 Provider Orders [id number]# [facility] Office Visiton 10-28-2024 Follow-up visit [id number] Richard Boykin 1940 M Date Provider Department Center 10/28/2024 SWEETIE TRIMBLE [facility] Family History Problem Relation Age of Onset Stroke Mother Valvular heart disease Father Family Status - Relation Status Age at Mother Father Level of Service:37874 NC OFFICE/OUTPATIENT ESTABLISHED MOD MDM 30 MIN [facility] Outside Recordson 10-28-2024 Outside Records [id number]# 1[facility]00[facility] Outside Recordson 10-24-2024 Outside Records [id number] 9#1.00[facility] Coding Summaryon 10-23-2024 Coding Summary HTMLBase 64 AqifmpmpQOo4xDs+PGhl YWQ+CX2RLTUaE28reCRe vT0vX3ZAVQyDSwmtAKXO PSfCZdItslHmAU8sgUIx ZXJu IC8+YN8nFVNvQpvjnQQx m6G5uHI7X48uov2oUZps rLQ5OVRiTbJdhsvfe3ku uTa4ZYjzRsfdIwXw JUWfrO27NCA1fY27Ge49 kEHhnTXrm5qfyVi0JuKh ESYeLVD2lQhqLKtju0Mw ZJBuZ28eoWLqp3G4 IGNvbGxhcHNlOyBlbXB0 rM4pVJwrxucvd2khyxif Tad6ul49wXCkj6E5dNF9 I5HmoqF9SLJwzMRu DsyogIXYjN7rjpesk4zc zhglJbNqMWWvDRe6FPe9 JMLsiPyfZfYgLO45KYL8 OMBswcCuC3ZuDSTu bPriMcN0u6A8Lu5SK1RC DhdfK9GMMEVRJApakXA+ CP53nl47Y3OsNmurKkc8 TKIpTZW1vOX7rT3x HIIfGMsxy7L6cXH8Y9Jl jpDyza3uv8hfWIHxCRlo S62uzCRsk7O1WCReuDX3 TKTbmQqrFyHtjO01 Oyc+VYOnnUotp1CwFbqu t2mbd3bdfBy5KgguDFBh lbRkmGirASH5g0GlVz0y UONieJC0wAR9lR0u CwPaEpS7NZekQ404VlGg wRApNydoD61sK2FtvLG+ BQSjEtr4XXYklUzuKT2c J7OxKAAqzuamaFCa wFhjUZ6uMUTdkjgjWYId oB0gBWCbR1l5ZjEwKdQ4 DGdfH7ZsGEIhhqclWe18 qK4xQzZgEoC9PWha R3CsxjR1GHIasUNnLAqi YKB5A43pa9X0UUCgETIx GDE1yQR5iP8loEtkdgap bGVmdDsgdmVydGlj GIcnNAszW995TWJplOdz PkNvZGluZyBEYXRlOiAg MDUvMDcvMjAyNTwvdGQ+ MINrDDA1cXmdYFOo iGNnYKcvDw6jiEuzhWsy XS9hXVIzjmblBUCttC3f KANsnCHrvYbsWD1zSDAj opooo200SpZdLQQ9 QTJzvFVtG0GuuX1sKsMn RQKqUGGsD0JinBGyHWoy C896UUhrUwL3XDIohrUh Q6LoFMXvfJywNlD2 n4Q3Ba7Ro6DkujosE9Gi wODcXoGnXefwWPt5Y6Wy PjwvdHI+ZS97NDCyFV89 RDh4PEG6dGqcHJku AYJqQ9ZgcJ2pAzLqTMDp ZGRkOyc+PHRhYmxlIHdp ZHRoPScxMDAlJyBzdHls YX5kDu3aJWQnPUYu rLsoeRCpMzZmo5tjAYYb BCwgAQ7tfVjyN9UzkZZ4 MEAju1v1Gv97Y96zB4Uz dXA+YXKhdZF1bLC5 jC0lCoOrGaQ1YXaxZ328 KcXdyOVjPbzwg6eqw2tv wUh0LcC4DLThxsPkkUub PNU9z9HhGl40O62g IHdpZHRoPSIxNSUiIHZh oKxass0daG1xKh7+PGNv lBR7mCW9tT9dObElHaB7 YEvuQ396YuUnqAAm Mlbbp7jdu1qxoMq2JzOs VUXseoRauYtnCRG8c3Le Mt96I3VdsOrqf6HmOds5 ra69vHSbm0B2yES4 M5DaWKBshhasbITsvHbi HV5hJEYivbpxNMIviF3p RACrF2i6RuUsDfG1OCwr M8PqgnR7ZGKzsKMv CKBrjZBCmQ1rgqajl4tl bjyePqDsPMYyNKm2ISu1 VAOneZxtSeHwTRK1TdB0 YCZ2hFGguT4ijCtx eaqndZ1hRnx+BZR8aEPl kVYDIC6uFygilJT+PHRk QIY1xWeuYLdtQIRdgZ4o ODJeY6k1SmWsDjH0 MNjzE0YamcB5EACyyPFc ZNSxmSQQgZ5jimoxs5sn fhnzOsWpVMMlGZw3CAl1 LWFsaWduOiBsZWZ0 TbQ0ZVQ7eNSblP8pjIxf iouymD7eXbh+QmlydGgg ZRP3DEr6N3AvGte7EGKa nMzoFO5cmKGpNJnw Nd5swPgqjBfyGU1lKPFn hbblx304KsNxg3tvGGDw iEVoAEldOZP5T78yc3A6 OQGlFQEsZMY9zFA9 qB3suRfyhvkdbUVxgAcg gqKwiPliBVjdOHgfT835 ASCszLkfBvOvSIw9J6Mk Wgl6OBCbrNiqWU9m oNGhVLvgPp7lnQiqiFek WM6nHHJbmjifz226FiJs p1wzISHtkKPcCKwzHQX6 C83wb5N8DMYqTDNx PGR8kNQ4jU8oqMnfkgrw bGVmdDsgdmVydGljYWwt DZukA703TJTaxUhdNdIl vQo7I2GiYam2QTVf fJtaFA6sgEAtOVbjNp6o pDhjjSatUE8xHJFhcura i381JuWoq9ydDQKfcWSz FVnsBJX2Z22kt3X0 IHInAPNmPQE4xMZ5sT7c bGlnbjogbGVmdDsgdmVy gQhxEJfiFSjsL543YPSk cDsnPlBhdGllbnQg EAitLHh7K5CgWzntqMM+ NL22GZKmDH90vQXziZDy p9zgwAv8HjQoEMNeLDY4 eGxdJEfze0TnRPSf P85izNRek3G2HRSphCnu jLPyBoTftNS0uJ1sUDwx fkvzf1ngizilUidtx4qv af38zI01U99dTNbk ZHRoPSIzMCUiIHZhbGln uv3mpW9bDb0+PGNvbCB3 hEF5cC4eFNKvDaH4AMej K096WdNdgTYaWrcu o0nvc0hcqLq4AjJ0RZBx wkOmaFpiVCA7q8FrHj63 Y88vRGvuUFLoDRNkPFCx POJsjYqsfm7rvC7t Ii8+QNAjeKL9yYU1rO6n ExKoBvA0TEufM945UwFr eROkJfxvL96hW6HbcCA+ PZOhEfu3IURwvOrp WM1whZKhOCqcYz1fRQE6 WxNeTkUyHQmsZ0EeRLKj fphmaxkbhJW9LUYhLSHr nW66Ni9mwJleOZCh sTMKkE7iluskz7vzmgic RiPoMIWnWHe6ZYp1TUNn jMzoCdQxLPX3UeP2ICM1 uVSvdY3eoTawwsog bR6iY4YmWTKcvkwgIw37 fU5kXgOaPmQ7ACepNwf+ U0IWCRRGOTRTAWkcLVXA YZWAHU66FU04wQLy f6Q8bGM5W4JiVJJgkvan lgjfcQF0QQQuMVQfiP05 lDNsCReuWq0gh6S8j497 QPBwQVJlzA04Mr4p zYykITRnzYOAvH1ypbjf e1jtzaudFrWxPXMmJPr7 NGn3AEXmeXjiKpAxGNO0 DeH9QAA0zRHccF7m pVihuzzuqV8kLio+MDEv UFQqNRk2TxtoxRX+PHRk DOU8fOkeRAugZUWxaI6b LXXbW9h9XzEuXhY1 YOqmR9XwAWFmyemdPn14 lZ5dBmBqLlK0YBbqX6Si yhZ8GUAeiGItROyqZVW0 J50wd4F3UVEoIWGh QDJ6iSA2aN6scTsblbrt bGVmdDsgdmVydGljYWwt PBekU135LWUjmXkbHxln GYmaEUXxHH43EJ71 eIXft1B2cJQ6N1YpUCAq lvziteadvTD9BWYvENIl qO25sJBkFPhiHq5vy0Y0 n878CFPtQFForL79 Iy9rfUdfEIFnnFRBhT2b debsx4mxmfneHlMhQSNi NRj1SDf2QSIerEyiZfOc YCN5XhT7MJI7rIKi yQ8zbSciyctduV2xDzh+ TUFMRTwvdGQ+PHRkIHN0 aXixCOcfYQAtaC1nLMGa Q1y1GjYlIkM5NHbp T3QnWWFbffdaGe59lG2u TnLsVwW5LJuhT5PeorM8 BZOfuPBgEOjoXVD1Z44q d1X0CLZiLXYoSCB5 sSZ3pX7ddXxzhpnlhQLs dDsgdmVydGljYWwtYWxp M431YQMzhRvzQa6MUT93 AG93Y2MjGyrtwQFl bGU+PHRhYmxlIHdpZHRo SHgfEQFbMpMkiVxzUY3c Ww6wTKYyVZZjuKrhdSGd SaDvb1bhGHGcZMgu IC0hnCbjQ8JvzSV1IQKj h8l0Cs27Z05dR1DzcAE+ TBBcdFU3lTF5lU7wXnHd MrB6YYbhA728ZrVx iWUuKndct0qou6nbgHp0 IjMwJSIgdmFsaWduPSJ0 w6TsSb25F41zCJtqNGYw PSIyMCUiIHZhbGln pg3ilI3jSc5+PGNvbCB3 dKW6wF2cVuHhOhL7CUmx R299FgRitKKwZlagM01m Q0YfpFZ+PHRyPjx0 YTAspJubDN0dtEKsLDhe Ou8tPCQ9RoSqAuQcTYgs U5ZjHWVblgdecbweqYN5 LMLiCPQxqV12Xo8w zXplGn2pWSFkRLP3PYLk hOOzW8HcyV0lMjPrQRVn IPAbW6HwgAKdLFtdN598 HBapVjH3XRMagvVr P4SaGZPmrJqmExJ9e6O0 Gh7MbFinpSPhDO3zMrDv DXg0C5GaMll6WRPatRhp WJ5mfTBmVBdlGn7s mVyozHecGM6bOKBnpspk z237LmYab1cvYFKdqJIb AGbtDMO3T53gm9M2WSMn GOJeNSV6wVP8aD1e bGlnbjogbGVmdDsgdmVy lFvnPUgeYHjyU622DMZu rIetGoEXTxv5G8EgDbf5 NLBhdJneQC7dtPEr FWgaBy5okFghaHpoYJ1r CDJdetxdi734NpXoa5rs FNFruYUjGBlkEMO7W45d u2O0DKExGFLzJGS6 tAG9uG1ojXhgcsygrNZi dDsgdmVydGljYWwtYWxp O038SIBzfCyxNz2HHso7 C6QeRuv9CEEqvVag WH5haFMhSTmxQw3zdQkz vAhxSI8xWXHbkudnq454 GqZdc8myTVMhjLSdKRqj CNB8K76ty4H1EQSa TGUrOUR7xXB8qD7dgHzh bjogbGVmdDsgdmVydGlj SVefBTwrT501DGRlhWsa PlBheWVyOjwvdGQ+ WE55yd63Q3SpSrsmAwe8 PHZwCGL1iQP2gJ0qBKXe HBfaf7L7vFB8E0MkanFt xj9yz9fyIFPuUUfh Y29 (more content not included)... [facility] Standardon 10-18-2024 eGFR Non AA 35 mL/min/1.73m2 Invalid Interpretation Code [facility] Comment on above: Performed By: #### 1 [id number], [id number], [id number], [id number] ####[facility] (DEFAULT)[address] [place] [address] eGFR AA 42 mL/min/1.73m2 Invalid Interpretation Code [facility] Comment on above: Performed By: #### 1 [id number], [id number], [id number], [id number] ####[facility] (DEFAULT)[address] [place] [address] Albumin [Mass/Vol] 3.6 g/dL Normal 3.5-5.0 [facility] Comment on above: Performed By: #### 1 [id number], [id number], [id number], [id number] ####[facility] (DEFAULT)[address] [place] [address] Alk Phos 144 IU/L High 32-91 [facility] Comment on above: Performed By: #### 1 [id number], [id number], [id number], [id number] ####[facility] (DEFAULT)[address] [place] [address] ALT [Catalytic activity/Vol] 32.0 U/L Normal 17.0-63.0 [facility] Comment on above: Performed By: #### 1 [id number], [id number], [id number], [id number] ####[facility] (DEFAULT)[address] [place] [address] AST [Catalytic activity/Vol] 37 U/L Normal 15-41 [facility] Comment on above: Performed By: #### 1 [id number], [id number], [id number], [id number] ####[facility] (DEFAULT)[address] [place] [address] Bili Total 0.6 mg/dL Normal 0.3-1.2 [facility] Comment on above: Performed By: #### 1 [id number], [id number], [id number], [id number] ####[facility] (DEFAULT)[address] [place] [address] 05983 Calcium [Mass/Vol] 9.2 mg/dL Normal 8.9-10.3 [facility] Comment on above: Performed By: #### 1 [id number], [id number], [id number], [id number] ####[facility] (DEFAULT)[address] [place] [address] 97023 Chloride [Moles/Vol] 103 mmol/L Normal 101-111 [facility] Comment on above: Performed By: #### 1 [id number], [id number], [id number], [id number] ####[facility] (DEFAULT)[address] [place] [address] 59942 CO2 [Moles/Vol] 28 mmol/L Normal 21-32 [facility] Comment on above: Performed By: #### 1 [id number], [id number], [id number], [id number] ####[facility] (DEFAULT)[address] [place] [address] 55448 Creatinine [Mass/Vol] 1.87 mg/dL High 0.90-1.30 [facility] Comment on above: Performed By: #### 1 [id number], [id number], [id number], [id number] ####[facility] (DEFAULT)[address] [place] [address] 97653 Glucose [Mass/Vol] 105.0 mg/dL Normal 74.0-118.0 [facility] Comment on above: Performed By: #### 1 [id number], [id number], [id number], [id number] ####[facility] (DEFAULT)[address] [place] [address] 89697 Potassium [Moles/Vol] 4.2 mmol/L Normal 3.6-5.1 [facility] Comment on above: Performed By: #### 1 [id number], 9663076, [id number], [id number] ####[facility] (DEFAULT)[address] [place] [address] 17851 Protein [Mass/Vol] 7.2 g/dL Normal 6.5-8.1 [facility] Comment on above: Performed By: #### 1 [id number], [id number], [id number], [id number] ####[facility] (DEFAULT)[address] [place] [address] 69908 Sodium [Moles/Vol] 140.0 mmol/L Normal 136.0-144.0 [facility] Comment on above: Performed By: #### 1 [id number], [id number], [id number], [id number] ####[facility] (DEFAULT)[address] [place] [address] 86968 Urea nitrogen [Mass/Vol] 61 mg/dL High 8-26 [facility] Comment on above: Performed By: #### 1 [id number], [id number], [id number], [id number] ####[facility] (DEFAULT)[address] [place] [address] 16686 Albumin/Globulin [Mass ratio] 1.0 {ratio} Low 1.4-2.6 [facility] Comment on above: Performed By: #### 1 [id number], 0751561, [id number], [id number] ####[facility] (DEFAULT)[address] [place] [address] 04274 Anion gap [Moles/Vol] 13.2 mmol/L Normal 5.0-19.0 [facility] Comment on above: Performed By: #### 1 [id number], [id number], [id number], 5792071 ####[facility] (DEFAULT)[address] [place] [address] 21836 Globulin (S) [Mass/Vol] 3.6 g/dL Normal 1.5-4.3 [facility] Comment on above: Performed By: #### 1 [id number], [id number], [id number], [id number] ####[facility] (DEFAULT)[address] [place] [address] 34203 Osmolality 297 mOsm/L Invalid Interpretation Code [facility] Comment on above: Performed By: #### 1 [id number], [id number], [id number], [id number] ####[facility] (DEFAULT)[address] [place] [address] 54489 Urea nitrogen/Creatinine [Mass ratio] 32.6 mg/mg High 4.6-16.2 [facility] Comment on above: Performed By: #### 1 [id number], [id number], [id number], [id number] ####[facility] (DEFAULT)[address] [place] [address] 63348 Free T4on 10-18-2024 Free T4 [Mass/Vol] 0.83 ng/dL Normal 0.61-1.12 [facility] Comment on above: Performed By: #### 1 [id number], [id number], [id number], 7552783 ####[facility] (DEFAULT)[address] [place] [address] 82606 Lipid Panel Standardon 10-18 Cholesterol [Mass/Vol] 142.0 mg/dL Normal 66.0-200.0 [facility] Comment on above: Performed By: #### 1 [id number], [id number] ####[facility] (DEFAULT)[address] [place] [address] 58776 Cholesterol in HDL [Mass/Vol] 58 mg/dL Normal 40-71 [facility] Comment on above: Performed By: #### 1 [id number], [id number] ####[facility] (DEFAULT)[address] [place] [address] 82233 Triglyceride [Mass/Vol] 85.0 mg/dL Normal 0.0-150.0 [facility] Comment on above: Performed By: #### 1 [id number], [id number] ####[facility] (DEFAULT)[address] [place] [address] 11350 Cholesterol in LDL [Mass/Vol] 67 mg/dL Normal 1-100 [facility] Comment on above: Performed By: #### 1 [id number], [id number], [id number] ####[facility] (DEFAULT)[address] [place] [address] 16316 Cholesterol.total/Cho lesterol in HDL [Mass ratio] 2.4 {ratio} Normal 0.0-4.5 [facility] Comment on above: Performed By: #### 1 [id number], [id number], [id number], [id number] ####[facility] (DEFAULT)[address] [place] [address] VLDL. 17 mg/dL Normal 5-40 [facility] Comment on above: Performed By: #### 1 [id number], [id number], [id number] ####[facility] (DEFAULT)[address] [place] [address] Provider Orderson 10-18-2024 Provider Orders [id number] [facility] 10-18-2024 TSH Qn 2.16 m[IU]/L Normal 0.45-5.33 [facility] Comment on above: Performed By: #### 1 [id number], [id number], [id number] ####[facility] (DEFAULT)[address] [place] [address] 19925 Provider Orderson 10-16-2024 Provider Orders [id number]# [facility] C[facility] Summaryon 10-08-2024 [facility] IyjkudmfECz0zNy+PGhl YWQ+ID6QQCIuO98sbVAz yX2vF5VJOQbETcefDAEB SDrDSxGyomAxYH3knFQv ZXJu IC8+IN1gXMOpBvtweJNl a8Y9lNZ3F71gko9oBUhx tKI1TRIoVsRjiszpa5px yKj6FCejRishNbXp GDQibB16LSM3kI17Rj57 zNMvtGEud2qanMm1LrXw PRHmUEQ9xFcxDEyrn6Ei JTNhZ27aoTMbp9A7 IGNvbGxhcHNlOyBlbXB0 pN5mSTxjczkcd7lxziof How8ez49gBMaa2L2sXC9 R3LmagU2BRZwhWQe StngaKJZhR6duleyj8qe ljbrVhHvFRCqLLo2DPz8 WNWdoPsfAlSdGO70FHJ3 YDSihhQiR6RuFZOb xOoqVrG4i4P3Wm5DX9PU UfynT7KJSAYJPXjroFD+ PH08st08K9JaTwldMrr9 YLBuSWC5qZR7nH7i VMPfCHzdp7C6iFN2R9Zs klIybd9cy9jiWLTjSEtz Q09jsQXxo5R1BFTnePY4 KQVduEgwCkAfvS42 Oyc+NMKvmMnms3EsAhqn p9dcw8iqkSl8BrosEGSj pxGghOtiBUD8d9XsAy1c JKEeuLB1uGV6qB5p HhQeVnI0WDwdN687TvHe kILxSswiW83hW3TuvKC+ FYPnReq8DBAhcUneGQ7d H7EdTHRmvssxfELo rThbJB1uVDTmwkowBGQh rQ2wTVXyI5s9RoYaPoX4 QCopP1SsNFUzioamTp53 qD0gLvFzNgE1IPdk C2IgsgL3JJBhsBWaFNks FUP7E46lj6T4YGIuQDOu FJJ0wFQ0xT2mzQkqmspg bGVmdDsgdmVydGlj CPuoMGweZ097JXXhmNtm PkNvZGluZyBEYXRlOiAg MDQvMjIvMjAyNTwvdGQ+ AFYyVCK2mZoyINZu bYUfIXcwKq0jdToncWpz AF9uTFBmvvytHDQuwJ1t YAQteXObzBkwVP4rNYOi vahkl796FfYeVSZ6 MMCwyAFiJ6WfqK5nSbLo OWBkPLBbQ4UolLXcXCmh S779SFcvCzS4QCCofrHi W4WxOQKyfTpiAsJ7 z8C3Av0Fm5KuvrclB3Xp hRGdBoWdZfipQHm0R6Zi PjwvdHI+QA34ZHWiAX16 GJg4NPX5oMjjDSan OCYzE6VwfJ0uQaRiXXYp ZGRkOyc+PHRhYmxlIHdp ZHRoPScxMDAlJyBzdHls IW1gAx0fXPYeYEWc eUesvNBbFdEmd5osQXXb UAjfUN7zkOmuD3CwlBM4 RGMfs8f4Nk68E02nV0Uu dXA+ZLXeyDA0fKS0 tH6kQpXsVoG1XGzmU450 PsWnmWTkEuvfk3rni6ls yHp3IoV8WUZujrOhdOpi VBC4j3IdIy01B76t IHdpZHRoPSIxNSUiIHZh sXuyni8wpB9iYw8+PGNv mAE0pCO6qH8zKtSzApO9 DUgtT255MdGshSFw Pvwet9tef4pqgDv0SrFq WTYpwhHfwLauRNX2j7Vx Fb70M3NbgAmeg5FdXna5 yi80kVTce6P1lDH2 W0VqZYHofvfqrSNjzAfz CK6oKQXcotjsGWPcvO5v DAImC3a7HrNeIlW5YNrh L4KlsfU2DMNkbATd OWXpwYKZbD6yktfsk9vc prslVxVjPYIhAOf9RGj1 BAAifLnqFkOvVBV8CqO5 VZF4lKZkfI7stDfj hiujiR3iBxa+ZWP7vBGm kUHKNN8uKjmzaCQ+PHRk TTB8nLdeMKygVAIriV8w ZXXqP8d1CjBaGdS4 CZmiN5JpmuS2LPNbhWYh RYXeaHJVkM9hspsos3pd bokjMbPxSXJhZYc4IEe8 LWFsaWduOiBsZWZ0 RiG6RNJ4gVVieU2knCyn dwianF7sRwm+QmlydGgg XQB5CLz1N2JlNdd5VGNq qEitHN8piZVpEUix Zg6byIizpJinPL2pABOt nsbjf966RiPes6poHSRr qKTpUAjvDTU0T64ib9U1 AQRcTKTzPSP0uHS6 dS0zlUaenmdhvJCvzZmr rtZoyXzrBYytGLvaY565 FFThnLydDqYtZXs4X0Et Kwt7JCUjnMjtSC2s yDHiSTuqBd9lqIemnGpe KC1kHHDvibnvk982LwAq m3rvMYEmxXGyPCtzZZN2 D30ja6I0LCGlKJRa DLR8fAK5rT6brFmzlkvq bGVmdDsgdmVydGljYWwt RHczG943PHVzvZkxSeXi oTh7N8JxOmh8FLOd aSfvUO5pqICpJHuvXc5z sCzajSznMU9yREIbngms b068TjFoh2ebKPGrsOZx GLimISF9B05rp0H2 IRCyXBBhTMN0fCX5zJ3r bGlnbjogbGVmdDsgdmVy lEwnCYplVOdnO905OEBh cDsnPlBhdGllbnQg RIcjONt2J3MiAkjqnVN+ WR20GLNuUT25vQGnkUQn b9wxaUt0OwJhREEiYVA7 rYxeFKhlp3OyNEBc T28xcNIni1L3ERWbfRxj tNUhXgDmhSS4eR5uDUvt rpkjv8kssgzlRymbz2gr zt79dZ29Z78mERyq ZHRoPSIzMCUiIHZhbGln su0liA2jPh3+PGNvbCB3 eWU3dK8wDTAkMnD2OTbn Y865YjGpaAPtIees t4dsc9rckVp0QgS8VNEm qcUpfQclRIZ8j0CyRl89 V64jKBkqUIEmYGKvRGUq DPMomKepnb9efF1h Ii8+BMBsrCY2jYQ7fY5d KvHeXhJ0DJpbS883PeRg iAGtJxosN38eC4ZbzHJ+ YIAzIke7LKJfbScg FD9qhXWqDRlvOb3cCJC8 SjIbVgHzWXqzK8XkRKRb kkhpgkwkvAD7QYYaAEZw aG41Ba4dqDjdYQBi vJYOeB7qvujqb9bzwraa IxNgLOJbXFl3RAx8XMPl fWseDcKbJJJ4SpS7DGI6 yFTvsC9vzFocwqln sF5kV0LzAOBwnlviPl11 dQ1mPyLwVbQ9ISweAyn+ L6XMEBHLYIGIZVhtSUDM NQVZTM45NM56yLIn m1T3gWV0Z0JhYPIozsim nnyoxZI5HUOpQGDiuD72 oJIpAGaoHy7mx6D2i113 YUWdANDgdL07Vy9v lAzxSBEtrOUJeH3ltmbf c6gipclcUoOuFSOgBHj6 LTl6GABnzIgcMeYmNGN1 PmH2GCQ2iKRbsV3w cPxzljwdlF7bOkd+MDEv OIWaHMr2RaibxQA+PHRk YGT9pSqySRmhJNFxrU6n YNPjF7v6NxFeGhW5 JZghQ5OvAFHccpcaKi18 dX5uDpJtAmD4COaiW0Ej fzF8WLKbwFNePIfuEND8 K38ij0E0VKMyUBGe DKB2aRN9uZ6yaImtmvon bGVmdDsgdmVydGljYWwt UDybU562RQEtsGnrPbvb CTnePZZgZW74SA79 eILju3H3iUZ1W8PrIYUr ztscujuqvVF9PPZcFDRa cG91oYSjAXltIh3qw3K8 s308FMWcHHKdeE30 Zs0mxNfcRZNeuWWAqU5n msmvy1uspxriKeAvQMHo UXn5HQk6PFLdwMeuPkDu ASI9GsC9QMQ7hKOe jT2fwYuucbsvnO9sQdo+ TUFMRTwvdGQ+PHRkIHN0 oFbrADitCGZexI5cKIBo R6q9WdVpLvI4AYif F7SeHZOdeytqEo23gH0v CpLrZbT8QGagT8QtwiV3 VJWelIUiAUncUKT3P75b y8S5GFEsEOImWAX6 iJH7jF9nzHtmzkzhjJLm dDsgdmVydGljYWwtYWxp C127FWCezEjxHyNzS7Tg cmluZyBPdXRwYXRp OW55OU10AP43S5BcVkws dGFibGU+PHRhYmxlIHdp ZHRoPScxMDAlJyBzdHls CT4oVe2zVKJaQTJx uUuplWNxHbGas1alQAAf PBguFN5ciXtvG2KwhQE0 DAZxm8e3Jb40N88nG4Jb dXA+UGMmjSY2yZA2 xJ0cIuIdYkS7MUuhX461 TtJtiNGnDtthp1vqv9im fUf6QdItNJEbvnGftTtd EBE2g1FdBe93J96b IHdpZHRoPSIyMCUiIHZh cEuijc0wyZ9yWn0+PGNv oBB5rTX3mE3cBdAkQnV1 GSfcI601QwVecATo CtiuR06pJ2OsbDM+PHRy Pxb8HIOqyKcwZM6miCSt IRumYo9jVKY1XcFfLwQj GWbtK7CqIGMdxeom hccdjFP2ZVCbHEBelM14 Ct4kaWfzRq5dFZNvQYP5 PPSddRFeF4RxsM8tRxCt GDDwZDPyA0IicEXn KMvaL402VOhiJuZ7VHCo uyKqU4KjXMGdjOkhLlF5 a7T5Iu1FxNtouUCkDT5d YzWdIEk8D0EbRjc5 USGziDzwOA2ymEInZXgu Xp2hbJqefGhvZT3pYIKi tuxse778ZfPcz7svJVSz iDXhXEejLLD4V98c r1E7UQCwWYUlMXY0vGY5 kP6xgCqrefwzwUGizSed njLiuHjdIFvzXZtwV425 IHRvcDsnPkZJTjo8 H5WoJqn6SRRzvIjbBP9o kLYeWVkrRf9enTknjMxv XN9uUNUgxpkmc358LoKg w9ioJEYlrTVxMKxi ORD8I26pk2T2LIGuUNUc MKV3gRF2aX4zwMvthpms bGVmdDsgdmVydGljYWwt MHvbI557JWUswNcl Ap9GNkw2K7DeAom9RWZa wIdnSI8fgEHqZRbnVi7v sQoyuVymPG2fXJBhixrr j314EeHlg8thCZNf gZOrPEgeWSW4T02wt7S2 FWYwSYOmAWG2tCU7kB8e bGlnbjogbGVmdDsgdmVy zBmgOFoiCDkqW453 IHRvcDsnPlBheWVyOjwv dGQ+VL44mm66K3DiXmba Vkl6AFRxLYL6rDX3yE9r SZDaJGwgu5G2kLT9 J2J (more content not included)... [facility] Outside Recordson 10-08-2024 Outside Records [id number] #1.00OTGTIFF [facility] Provider Orderson 10-02-2024 Provider Orders [id number] 9#1.00OTGTIFF [facility] Outside Recordson 09-19-2024 Outside Records [id number]# [facility] Physical Therapy Noteon Physical Therapy Note [id number] #1.00[facility] Coding Summaryon 08-14-2024 Coding Summary HTMLBase 64 HsyknglaMRr4oRb+PGhl YWQ+XG8DYUPjP40wtBZy aF2hM3LLVJaOPoakJKOB QKtGYsCbwwTpLP6zwWNq ZXJu IC8+VD1rGYNxHzdqnJLx b7T8hKC1Q07qap9bIIlb wGY7CIRbFpDjerdfp7yz kDb3WIbdHtclOyNo HBXnkS81PQP3fP20Iq55 pRObsWYsd9nexRx4SbEf BZAwBXM8dZleMVaav7Md BJGtU83kbCNml4Y6 IGNvbGxhcHNlOyBlbXB0 zW2zXIzkssamz4ntcawr Fuz1go93zQDcv4S0yCP8 G6BedaS3XFBhjYEx ZmvjoMCOaI9bbasrt2or nbjlDjZrDJNxVTh3JTa7 LBRwkHkxYbHpRH89LXB2 HPSwuiHaV6LoIFJh iGvxMvW7d9I9Wg0JZ1UZ FtoiL0OQTKHXRXfseDZ+ UW41wr46X6MzEdwqDjp7 FTZxNZK7rTN8bA0z AWPmMImrp5M0aWO0J0Cj xzQwik8tf7ehOFEvUNpq F81ryXVqg6S7NLNspJM0 PRMpuVukFjQysZ08 Oyc+FYJwePfbt5NjWemz e9wcz8skyDz5AkzyAPKd ilNsaPnrCMJ3b9GlHv0d TNGvgDQ4qCR2yA7i NdNhOhV9MFfuJ102FwFc cALbLecfO95wS9LryVZ+ CWCuQey1BYJedBajKN5v M7VmZFNoehikxJTi bRnxBY2tMCYjciksPXBq dL7rKYTvD8w7OsGwDwG4 BWxbW0BcLVJvwvknSk37 kR9xIlOuWaK5BHzu F8YikyR2LCHklZXxWWcg AHB0Q13ry7O6OPQcNPEk LAV8rUS0nQ6ieFfgqxhs bGVmdDsgdmVydGlj RJcjOIfvU737BQTzfQvu PkNvZGluZyBEYXRlOiAg MDIvMjYvMjAyNTwvdGQ+ QURpLAB1iDkmOROx uFYbHCjyWz0qoAmaiOmv VI5yHWOeyirrNBBhfR7w GYQznZJumAtcDC2cKZIm tgfng534BiLjXBQ9 KWGgrRYcJ7UfxI5nDeXq GNSsVZQdZ6FgxMDdIDte L458GCgkVlL2SOCmacYl M3LwGPIjsKcwQaD4 t6C2Oo0Bw7RkrxchO8Dv eQEeNfHjLgmuGIi0C6Fo PjwvdHI+FC25GBAuIQ10 VEd6PAU8yYcsDRjp AOOaF7KcaS7aKjVaTQVn ZGRkOyc+PHRhYmxlIHdp ZHRoPScxMDAlJyBzdHls DP0dQf2oSBYtBSBq nYqwiNBuJhReq9fcKOLv UIryTZ3hrTpaX4KflFA5 ERKan2q3Uv55Y71iP1Gq dXA+JKJrpUW3iFZ0 nV7hLvKfEgP9WNwlW622 LdExuOZoYdesu6ajd5cp iBi7BfW7SKUzawNffBpr GMJ2e7ImLf39X69e IHdpZHRoPSIxNSUiIHZh qCoqqm1baK4mFh3+PGNv fIW3hAO2tF3zMwEyOzQ7 TZwsE308SnXuqCEg Uggay4ehs1kdaLz0IxDw FVKrmpSawQbwTBW8w9Ix Wm36F2IdoLjgd3FmDum7 dj20yNYvs9L4uTL5 T2LhACZjkixhoUFcfPdv PQ5fOQJrbyudMHMvcY3m WOGcJ9s1EuEjJiS7MXvm Q2OdfnE7UBYnmPWg QNZsaCVWwS9lrwnhy7kc tzzaMyZqVGDcDNi7MLp1 DVLqtSzwYlQvAQS7AdY9 CKM8dIBbvQ5onBbc thrzoV9yKrc+YVO3mLNm qUCLEA1jUcprgFY+PHRk ZSK3dNrsQOzdTTTflB2q SADpV2d3XlOxHyW3 VLdwU3OhukK9JTJxcZGe UEHsbAJWaX2lqcfwn1lu vvtqFbGcAXGmUUk6UTj9 LWFsaWduOiBsZWZ0 CtS5MWO0jHYmjD3kbZls amlcvV6yNgl+QmlydGgg AQN0AKp4N4RqOsl7AUHh mYbqPU5mbDHzYHoa Vz0juCndmDuiOB2rIEUj eolyo702SfErd4elKXUp rWSiRQqcHCQ8T20df5Q6 ETIxRNRmHJZ2lUS1 uG4qcWgmrcjbcLZxkHsb nzDqrYriONwgSDklC826 DZClwGpsFaQzAGl4M4Xy Zrt4LXPzeHeeVL4b qSVmXJvvOq7wvFjcgVja NZ7yDDQrplswv132KvKv p1sdSEPnpCEdPNxePCI6 P14cv6W9FOGsDZGj AAM8sIM9sG3iqLbffowd bGVmdDsgdmVydGljYWwt YUogF099AFLwaBhxPkFj lOn0J4DtSdj1FCUk kSuxUS5evTKoZXuvFo1t aQdauCrzCC9dAJOlhjuc q704XmPyi9gsUUQhtUQb RJemDOS8V01qh7X2 BDZkLJQjVWX2kLZ9oX5n bGlnbjogbGVmdDsgdmVy qPpmVIhoVBisS943DDVk cDsnPlBhdGllbnQg IGoxGVg5M8DnCucbaNT+ GH60QOWbAI50pNXetQGe t4wqxLe7CyQqXNHwBSQ7 cIciLUpkk4HcGEXj K77loWFig2N3DXOmxLir cCTfWlTywVK3tQ9oECgt ingyg0dlwuqcVfvcp9cj ia13oV39G69nIYpi ZHRoPSIzMCUiIHZhbGln la1bwE0qEh1+PGNvbCB3 zSF0wZ0zZKJyRsZ2LXyg Q399UmWtxYBjGuop n0pgd8jviJg4PrB4HALh isYouYsqJAU9o0VhCk34 T14dKKsdDUQfUPPqVTEd ZYDnyVtbiu7zoV5b Ii8+PNXjnMU8wLR0rN0d ApRwOzD8FZpnM495NpXf mCAiDvktW69gC7LxhMN+ YQUlFsr5PFWfeXxo KG0jqNDlYWsyMh0fKCM8 RaSyZoWbVFhiI5YtEDDn mvjyvcbjtGT5SKZeBHBt fA03Sk8nnCnuMAQg aLAFbF6aycxyy7xvjkec ReMuJYZhJVf5LXt4IYQx kDlmRdDlXBD6YlG5BBN1 nRCbhO2nfQqltolx zT4pL4OaUNEbdyisOc66 qJ4fSgPeJeJ2TYkiCog+ G6FVXDLJQTWDSYsnLDIF ITECAZ21VH09ePYo f5B6zHI7R8IyFDJqnbxf kdfyiSC2SNHtIOTyeT52 xTRzVXjwQn8zw1Z7k207 EKHjSKManG25Sr7n nKscFOHbqWQOwH8nosrl p5wbcxfeFgLwEWShTAn2 IUl7KCCcoQkdKvYjBJD2 MbN9EHN6iDQfmD7s fEbdsjcvfX9jGie+MDEv PALbCFo3AgycxBU+PHRk HHP9wQxzPPdcJJVyxM4o VMJiJ8p7YzSxKbL9 DGkbE5HbTXPlwoxgTw25 xV3kClDfCwM3GZxyP1Rx wlW3ZIZcpDVbKJagRRI1 C22ot1U7FWBwMRVj OXU6gCJ5uG8yoJlgpuvu bGVmdDsgdmVydGljYWwt FZdmL943AIVnaTlcRpik ZAnpZFEjQW22IR83 xKVoz7N0aDE1R1LjWDRa iepfqawhoQV5NYZeEZNm mS61mSEjATksEg9dw6R7 s791FGTlVHXwnE17 Ps4brHcpJYGubLCHpT3d kbjhh9sboaimVpWcEOIm NIx1CZe1ZPYhiXitYkQo WWF1JaL7HRB7fZTa hY5duUxdpnwgaS8sEnv+ TUFMRTwvdGQ+PHRkIHN0 lYdiSJjuGAOnzY8xXSCy S0h7UxOzHtT6OKmo R2JqDODhhrsnCh76yJ9l DzCfEbS3NZyeC5AzqrY2 KEXlzZKmSNcaTZL3S25p l4S6FQXzORBmLOM7 uEM2iF8waQvdpxapnHUp dDsgdmVydGljYWwtYWxp X155ATQnlGuiYz4DNB05 FM21U6BzNtjzgQGx bGU+PHRhYmxlIHdpZHRo ZBxzMXOwDpZhxXyvXH0l Oc1lYUHuUJPdcJgejGIp TjCxx6kfMNAjTUaa FQ3ugKjwX2DetQZ8YOXq r9c1De97O86lV0AhuLK+ SMKkcHO3nJR0kW0oJwGi GeX1SJppF163CmHg rHTgTpyrm5qtb6xpuXf5 IjMwJSIgdmFsaWduPSJ0 f7JyJj06T77nDKdqJEKw PSIyMCUiIHZhbGln iz8xaJ1nVe6+PGNvbCB3 bPV3yF2fBzArFmF4DFxn J835GvQtwNCpNpqeE18c G5UxjGU+PHRyPjx0 CUOsgSlmFB7aeTVtBHxf Hd5tZSQ1DyJyOmVvLXue W4SuHEXofwqzarcmrYV6 UGMbIWCxkS32Ep4t nMjgWk6nDBKhLOR2RCRp aABlV5XlvG2dXrWaDVFf ZYZmL3YfsIZhZJfjQ241 BKamRiQ2LANzufXs L5IxNNBbbZdaDfO3u7N1 Ir1EoNqbxWAoXN5gNiIr JNn2M1MzXqg7LIUkwUyf AQ6npUZuSYqcRn0b jHelrQusIW0hZVHxcntc r450FzIbs7qgKEQvlYWo LUldKST6Q00ky3H2QIEh SXLzYXR7fWQ8fC6f bGlnbjogbGVmdDsgdmVy kQypMRjaOYetV550MBVi nCagTmCCIjv3O7ReMpe3 KJNdsQzgCD8pyILn JHhmOq5siZqwuAwiOV0m KUMcxwvua196GvHrx4ln DNUjyHSnAZdaSYA0D98u e0P0WBDzGHXkRIQ2 hIA0bN1rxLaqpdrgfUPk dDsgdmVydGljYWwtYWxp J866MTZjqAjnOx5INmt6 A6HbAav3IQZszSww VJ3gpOUvPHkcIh8vjDoi ePeyBH6oNRKjsifca138 DlMgd6phIHLoeKWiXFaw ZIG7A95lr6V3LQMy VPMsJQA6oXH1vD0vnAok bjogbGVmdDsgdmVydGlj SYsbJKxmO694XLNtxEkv PlBheWVyOjwvdGQ+ OZ73lz48T9NaXfbeQfw2 RFOyCKN0fEF1cR1cQHFc GKujh5T5bGY7G2CksuAt jo0st3dqTUMyRBrz Y29 (more content not included)... Normal [facility] Office/Clinic Noteon 025 Office/Clinic Note Patient: [...] 105.050 kg Body Mass Index 32.79 kg/m2 [place] Body Weight Calculated 74.087 kg BSA Measured 2.29 m2 General: Alert and oriented, No acute distress. Neck: No carotid bruit, No jugular venous distention, No lymphadenopathy, No thyromegaly. Respiratory: Lungs are clear to auscultation, Respirations are non-labored, Breath sounds are equal. Cardiovascular: Normal rate, Regular rhythm, No murmur, Good pulses equal in all extremities. Impression and Plan Diagnosis Diabetes ([id number] E11.9). Plan: Discussed with patient would like him to take the 20 units in the morning and 15 in afternoon. If his blood sugars are dropping low would cut back on the 15 in the evening. He does wear co (more content not included)... [facility] Outside Recordson 06-25-2024 Outside Records [id number] [id number] [facility] Orders Onlyon 06-03-2024 Orders Only [id number] Richard Boykin 1940 M Date Provider Department Center 06/03/2024 FERMIN RAMIREZ Family History Problem Relation Age of Onset Stroke Mother Valvular heart disease Father Family Status - Relation Status Age at Mother Father Normal [facility] Coding Summaryon 05-30-2024 Coding Summary HTMLBase 64 UbevbnxdNXg1vKm+PGhl YWQ+DH6JRLRsL29ssXMq mR8jS3DNUTrRWfqtKJXO AOgIMcMwquQoER3ciPQa ZXJu IC8+WB1uACFhAjnksJVq p7H9wNJ4S17kbr6uNKij wCA2TSHeAnPerqjte1xk rWq1WLarCpaaCgWq OPDceC55FBZ7mO58Va25 jGHbeGLuu6xhuKq2FmAp MOOnNHO5mPwbSSjli5Ur RSQvN09oyWWnu4V6 IGNvbGxhcHNlOyBlbXB0 qZ9kFUkqeakfb0lsydna Hhr1ep79uJHbo8V0kIT8 H2FsieL1AJYvuDNu YtiwlRZTxX8bqnhbg4ir igsbKaGwQKTzOVp7AZo8 BZEraTiyOvBxMH49FJG1 FOToarKkA4SmZQQy nOdvAuA1e1X3Gz8YL4BR CmdeO1FNPGZNKYuivRO+ CP28ng80V4CwTqpzIwj6 WXXlYXP3qES8eZ1c GLRoUUynr1R8dUN2W2Oq igZmdc5tc9buATDmRSda G33hxUPky9Q7CKNhxBD6 VRLpbHsmLmIocJ37 Oyc+LHHjsCuhu5LhVsok y7pqa2cvwKw4DnijTMPy qsTwpVhkQOK2v6SlFh8i NXGyhMY7eES7xU6g WtEhRyO6CVpbR054LmRx qYDfAqljH29uO8HqtIU+ FSHmRvf8FQZutCgkAP1s Z0QmBQQuduwoqBVq nQtgJD6fAHNksjwgYHOr rI4zHZBiU1f4AzYtGdX3 EWcmN0WbHQBruimgOu45 fV6aZiYvHqO9XAeo E3ZxxqT1EOVhnMTwZTqd WVB1S08cd0O6AMThPQRf FEN6kZS3aJ4lcIbksope bGVmdDsgdmVydGlj HAseMDshK665QRPdoHkb PkNvZGluZyBEYXRlOiAg MTIvMTIvMjAyNDwvdGQ+ EMBdIHP7wBggVDWc gYNnXVqaOg2fxPfnrVxl EM5qSDQrbbalYBSewD7e YHYiuHLliHynZX7xWQOq kldzu875AeMgTXW3 PJWviDXfZ4TwtH5jFvSz FWOpPKTlZ2TkkHSaSSil M571YTsoJfB0ZWYukmSo O6TnMNVgaUahCcJ8 d8N9Xf2Cr3AnmjwsE3Io fRUlLwSaNidoMMm1H2Zh PjwvdHI+NL34IUDqJU90 EWb6SCJ6tYiwMZbs WNHwU5WnoE9lCzMkMQRt ZGRkOyc+PHRhYmxlIHdp ZHRoPScxMDAlJyBzdHls FR9kYc8uYVArEYXh sZngzKDuYyYnd2qvNIZq ZEmfOI9xuFafP8XfmGM6 INXcl2b8Qp50X50mO2Hi dXA+LTLfvKI5eJY3 kQ3mVeRtJcL2DNehR262 KeRjkVZwBnnvp8ibl0vd xJo2JuW3ZXWtkeJuiFrv TRF3f8LpQu38J61o IHdpZHRoPSIxNSUiIHZh dIlysk1hlD7bGh4+PGNv kKZ8qEI5yT2tLdYkPqQ3 ROwnB536RaPomTCl Bceor9ngd3csuCq5FeSx XLWbwvJdcDayWNC5e3Ps Yi55E6UtzJqru9ZuOyf4 ko62oQOdw6L9jRP5 H6WgGWEmqsftaLTqaCyo UU1lAUJmlpdoZCTdsE7w ORHvV8u1EaTjAoL9HNbm M2KsfyW3TWThpYHe EPJckBCVkW1vojmyz6tm pteeTpPlMMPmTHl7PNv2 KOGqzCziOzDbAGU6GrG7 CJY7sKOmwN3zdNmz lzadxT4xGsu+LGH7xQAe aGXVKR7zQufzzLP+PHRk EZL5eVodEHkkUGWkmV2w REMvN2b3CuWfOgC0 WRjsU7YtqaD4WHTmpKQb CDUnsQAHyO5hdqemy9jh jcgyQjQaULRtPLb5SVj6 LWFsaWduOiBsZWZ0 LuF6MCL4nVOvdG8cwYfz qwfaeE7gZsq+QmlydGgg AHM4ZOg6Q9CiXaf6APNh yIamEA4mfDOaPJmm Ff0qdRjsuOiiNY4hAHQk fusej235ZrPpm6baOTBy jBNkBXtwPDV5V31sj8C9 GYFbRHCnBXD2gRO5 pU7ccSwarjvlyVGdzVgm fzRagLktMNquYZweC476 LXLgpHupWjYsJPi1T1Hy Bxt0CKWmnXlsFL1a rADuYLejGb4xvHxygDdf NY8aNIIkzvfsl059WgSr u2xbYWPbjAWbRNqmVSK2 R09hb0W7MQLbFFOn SCT7wPS2lO5goSlacait bGVmdDsgdmVydGljYWwt JIafG721EADaaAmsSgPr jBg9L9TtRye1HLMc qZftAF1sgCSeXWgjXk0a tKxjwLhlBZ7xIGWshpyq u838YcXct5wfMDMnvWXi KPcoIMO8X82jz1P2 SKAaFJHsBHI5bLX4aW3d bGlnbjogbGVmdDsgdmVy jYosADwjCOkoQ117GBOc cDsnPlBhdGllbnQg UBgrANi4T5BaCzlutFO+ KP32RWMnTN23kSJfvDYk h3oysKz3FcArJWNbMCR4 sHuwSUsod5NzKOFh T39wrBTgp3T5QHRpwSju sGOfYyPqpCL7qC3bJFqh tlmgj2xgdbobOwgqh8zg ea66wO33N91rRSnd ZHRoPSIzMCUiIHZhbGln ro6hpH9eXz0+PGNvbCB3 dRH1yS7mHBHoVpD8YTwj K788VcOopNZoRjzq f0oci9rqsKj3QmE4ULUi zoGhtQglASV5w0IoFx11 Y95lTXhcSWTcUCHaCXZr NUMpuYeedu8yeV5p Ii8+QAJjxVW0oOX9fX1a TbHsKfH6NIdxQ629ApHm jFIyYuetJ96hU7GekXP+ NJJmIrj9CLIoeApf PP4sfMHkPTxaGt8oVHF9 ZvTaLlUlQFglU5KiEKOm plpmqdhfeOB0GYNrYVVa kN19It6qtUhyDYYj kRJHsN4wtwulb5bmxvbo LuJhAAKlQWm4ZMh3LVAs lFveYzTeHAH7PiH8WVR0 xMIrdL4gaRuiagfo uN4uH6GbTSZfuppnQy97 dJ8uRxJbDxG1DTdfQmf+ O7SDRZZLPGRXPByzJYWV ZKEIPM49OJ10rJLt e5F5bLO0O6AgOYSnetdu kdreaQU2VBIxQPCmaK57 oWZoJCiqWq9el7G0n795 JBEdLPGbdN35Ql1i yWnuVTNhfBDOiO5sbinj v1bzuodfRkUyDSQlMBc6 YSz0JYUinYkaCkTxYSK9 ZmV7CMS3cNUchF1f kNnjmkbaoO9kSko+MDEv XSBuLBk5KitkwTK+PHRk ADM8pPlfTDddXCHdxI0o GBJiK7o0VeOvDgY8 GUgwY8HfSYPkfdrfNb90 eC8wSdUmHnK1KXcyC1Qh mrF6VNYzhQKfZBdpLAW2 G80fv7G8OTJyTQCy YYD6tOV6lF9ijEgffymw bGVmdDsgdmVydGljYWwt EBpmP269FECklEnbGewx XKsfQNXlQX40CK98 jZPfo4F9qQU4P6CkZTKg wjomirkxoWU8XACqZFBc eI44zFTcZGoiXq4az9G6 u274GITlOUNhuY14 Mw3nnUcrKAVzvIUSvQ6l lcsqm3xkroevYpCuMAQe UIj6BTo2QPDmmFejVbXe GIW4OtG9UIV0yQRs aK4puCexawipgV9tQtk+ TUFMRTwvdGQ+PHRkIHN0 lZgiWXksCLJsaW6jNWWh J2y6OoFeFrB9TPeh H0WfOKUgefdfFs93lC3l LoIbLmP9CBvhX6VdnnQ4 RUUrgJYdYZciTRP0W91f j3T7FJPtWCKtMXO2 aNH4gE3hpGyrounikBBq dDsgdmVydGljYWwtYWxp J870HVRmhFoxIvNjS4Ah cmluZyBPdXRwYXRp ZC43FV42BP29H5ObCyjp dGFibGU+PHRhYmxlIHdp ZHRoPScxMDAlJyBzdHls LY3wHg3sZKQpGGJj uNkihQZzDnDht0twRTBd IKnyZM4ciCdnU7KwdSG2 OQDqd2a8Tc72Z89pD0Fy dXA+YZSppVI2mOQ3 pI0cNyByRgO4UXjxD560 CtMwrEMuBciua8vzd5fq iLf6SdYiDMOkoxSgqJoy INB8y1VpHq01S08n IHdpZHRoPSIyMCUiIHZh jQvjwh0pjZ1hLg0+PGNv fJX8rYG7oT3eHrUwVwA3 ZSuoJ028SwVoaLCa EejfF15kD6UopCM+PHRy Ofx0FWZceYikCV1psIHo TYwxQv4tLDY1VoFnNyBp NNumF6IaQGUaawkz zyxbcAU7ZDTnTLOrkN70 Wx5sdSxyOl1zYXMuASO9 OKWbqTKyY3PvzF0bFyUt CCMrEOYwV6YazUHb KNubO211GKjdVzH4ECZa ihUxP8ArNFYheCcgFmJ7 e0A8Vm1RaEvjoYVyVH8o KzArIGr7J2TeKvh8 AZVtkNsfCV5uoJGgUVns Rz2bmVbtlRaoCO7hTJVy jirks065PwEwf3kmUQXa hHCkZPhaCAD4C47o y8Y7QEFqOCYiXBO9xPE6 zJ6frNkywdontMNfzByu jtFwvNxkTMxrKXiwZ036 IHRvcDsnPkZJTjo8 A5HyNhh7TMIetFagWG7c cOMsSPsdVd4iaSugpZzk WQ7mXJKnfmksl592ShQz q7flOXDucCDwJIgq KQA7D24py3P0ZCJxTXCz RYX8yRV4iL1pdXpagxzp bGVmdDsgdmVydGljYWwt HUgpS088NLHykKww Mn3ZCzu1M7RvTqa7YOXg mNnqTL0neUQxGFvjKn2l dIhikSauJC5qOSOqajtz a693JkFpx6fjWXCo oJYeLWrhBDW5S54ba2M4 AAGxAZPyLIZ5cMH8tY8m bGlnbjogbGVmdDsgdmVy xFctIKjtQJbjJ957 IHRvcDsnPlBheWVyOjwv dGQ+PM14vg45I8DzHasl Xuu6CJYdBGC5fJK1oZ3k CIKkAMxmw9P1fVK1 J2J (more content not included)... [facility] Coding Summaryon 05-01-2024 Coding Summary HTMLBase 64 HdgighejXJo2eNb+PGhl YWQ+TB8IONJaQ88wnJLi gE9jX7IKUFhTDbxeQDNA VSgRPpWtnuLzYA8cmLCh ZXJu IC8+RI3cGJNwQbwavVFq r2A8zBM2U26bsv5oFHek lKY5BVCpUfMqrvwxc9mm iIz4RHloBketZlBs OCHuxL51GUO6uH55Ag25 sCWtuUIpn5wceCh6McYv COEqSAK9yLvoHPtfy1Yc SCNrQ67iiYOiu2D1 IGNvbGxhcHNlOyBlbXB0 mG4wPNmclolfr0qchvci Cqo8hv25wPDhh4N9fXI4 K9KhnxQ6HKIpuOXz EmafdVUJcQ9opprby2kf orfpIyVmHEGeLAt2LTv5 MBUlhMoxQhBsLA92QBE7 LQXqmbHeP1OkFTHn kJgoDkW3m6C9Ax5RW6ZO WxydV3EVQNVYRTekkIS+ NH33uh69C2FlPrsvHva5 FNWfMBU6jUY0rL2t KWXuEImmk3M2oHU7U1Xa ptCoje4qc8uaSSHaPNgb T91bdOWje9X3FGPoxQU6 NCAtcNjuMxJwoY94 Oyc+TRYyoOrwu2HdXktu j2evh7lzoMa1IkifJKGg tcTiwEcfLGK7z4EdJh1m TKEucSY7gIB5fR6q CfUtZyT0JInrX092UgGv yJBcRzwvI37tW6LauAO+ PHKkApe5LGWuzGalJA6o X8IwWVZwoetjpVFr tXdkIN7yPATpgazkMNIy tJ3eNTAlT9w9VwYvYoB6 CVigG8ZyEHDfktymXi39 zH2kUdEcQeE7VYtc O9NxjbE3IXVxyKCwMDtq JXG4A33nd3F6WEHaVVWe FPD4zTR7fV2scJvwonmk bGVmdDsgdmVydGlj NKklIYomG066IWVtjLew PkNvZGluZyBEYXRlOiAg MTEvMTMvMjAyNDwvdGQ+ IJKnVKM1mXwtVCFy dXUxCFyjWk6paEnflIsr SF8vCYXvolntAPDtrO9k AWUsfKIkcUwdEK6dRWAc jwuga783MwWtKFU4 LRJcmFWbD7BtaR8cTzMn LDGeITBwL1LjzYArREuq T396ZLneXwL8YFWzmiCp W1HdUCJeyPtqEyJ5 q1E5Wu2Am4EiyzqmI9On eUVmUyIpJqozYOt5Z4Zs PjwvdHI+AQ58FVSnDM53 SLd8NOF1vQdpTMya ELLsB7FosX1aFyUvLORv ZGRkOyc+PHRhYmxlIHdp ZHRoPScxMDAlJyBzdHls LY0zJe9qAHPwPPTz bGgwtRMzJkTfq4ueSXAr SAhcEM1onRhaR6OfbCD4 VONpr1s0Px72N45iI3Av dXA+KRUfcKP6oHX0 yO5uJuBfIyE0CTwjE694 PbFqhMVnJowcz9iir2ys xOu6OdB7KGIgzeLhnUif TPD4a4AeJg75K49p IHdpZHRoPSIxNSUiIHZh jXdwmj5uuK2jGk9+PGNv eIB6nOX3sD1xJoYcKqE4 YCwzB333ThIpiYVf Vugfq4mxn4utsHe4MxUe GEBnayLacYodMML0s7Cd Rc53Y7TbiEecc4DoYtw8 ct60oXUio7L3dWN8 V7TkNFVbgdfxiRTmfGci CN5wFKWyruplJZDyiI3c KCNdH2r0TaNlPzY2JNdv J8PoieW9WZDvrYLh XFIlpGKViB2xhgkmd8xj ifdtRaClYHWeMUa6MVm0 FCOtrJqiNbDyDBU1CrK6 WGK1hZNwmI9ejXtm ntpwuQ0qFhs+NEW0hNIv fTFJPH7jHqdnbUX+PHRk BQX1mRyyIPdrSAPgjJ7c BUBwT7p1EwGzYfU3 GSmuP5EqusY1PGOgsIMd ZJPwxEBCoM8zbqdxz1vl uvfwYrAeSOKyYEl4XGc0 LWFsaWduOiBsZWZ0 SeO3OAL5vZFqeD6vkNys tavhcT4lPni+QmlydGgg MLG8YIl1P9PjAll1DDVy wAstDL9erJBwTXna Ar6jfUpcnQchTS4dDLSk lbfdi341GhDhh1ysLOWk mMQyIOlbAGK9V94yn7Z3 GFHjTWVrMJS8uQI6 mN1gjGyfkqfvvWZcwMml rlWnrPvrOHizZPyaD578 BAKcaEijHyLjVZu9I2Pt Uea5PAQwmZyuWQ6n cJPhGZomMs5jlGyicXia WZ1xNNTuqpdej928DrCg f3sxIDRrvXSlKMygWAE7 I82dr0O6WQAmRCIz ULW8vRJ9bE6zsGmpccgn bGVmdDsgdmVydGljYWwt ZHshY064NVQdwPwzRtFm oJg5N6SeDjl0BEHw qQqgJF0xdSZkNVbuDz9k zFdkkGtbAC0sQFXybvxb g437NkDsa7gfNOZdvQUk ELasYFV9S13gy1L0 SLFdODWbAUA9fGB2xM9t bGlnbjogbGVmdDsgdmVy dAgjNUjhAScoV019ONUj cDsnPlBhdGllbnQg OYwlLLo7W1KeIoxgmPK+ KS31VABkMR56kZVxeOSs p7nfgCy3LzTiFJMeRVD4 qOevAUbvj8IvBHGp H41vlPRms7T4YWEbgXqp iBAbCoLsnQJ4qE7wQDpr ptkgf2zlppnjRvlmk2jm tg26kH84U69aLEdn ZHRoPSIzMCUiIHZhbGln ft0xgN1qFu7+PGNvbCB3 hJK7uE5xIBHaFdC9ORhj B851QoVpxRVqOsab l8eze5hvoBf3HjP3PUKb gxYneHlbIMT6g2VpMa46 H14lMMztNGPeVDUkSWVu EQXpeUetex9ofH6q Ii8+JWAsrDA7fJW4bM1m OoQmHuV7ZQmiY064QdBz vYMgKmwvG69pP5OujSU+ EWEgHku7ZLIiuHsf GI2rbDUvLRydEi5sVGJ9 QyIiXrIuDCfhX0UkVWUn nmxomvwpjJT9PSRcBVZq gG91Wv0psXytQCIk gQNTnQ5uzqpye9tubwlj HaHmBHZnXYb7MVp5VTWd fKfeYfElJUG7IcI8TGO0 fBKwvO0hqFgaguix yR7gO0VlQPRwxleoEe77 bH3iDaGxVdU8BKxzOgp+ M7WVIPLHONXTFDzlJZGO RJTMHU71XD83mOSc i3N5cAG4X4JiJDUrfdti antsdTE8WMIhPCAhwJ61 mXYoDQyaAe8ks6C1o699 VXWeRJCvfX08Mk1b fOdzMENqoQUXgV9michq p1jyprtdAcMuWMMfEOv1 KVn9UYDrcZrlDtYbBZI1 LgH4JQY9lVYkmN2f qPeobznnvO4tPgn+MDEv CQEnNBp5IkldyTM+PHRk AGL2kZbwEZqqJLTgxU0r ESBkZ2h7WwOvPzR7 JIewM8DsAVAjkhloYp10 qU9pPxMlAnK7VOkrS7Fn kqC4RMAdzWYxVHpxQXW6 H61yj9N8FSCdDMRj QWE9gNG0aZ8wyHlcybim bGVmdDsgdmVydGljYWwt FCaxN371JPYloKhxPngc VNawYIIiPX87ER04 uKTto1W0zJD9I4WcNWLm ltnlvjtdaPI9UGOrCVFe cA69xXXfNUupWb0zj9K1 y862EDCkZFPduU23 Tr3vuAxvPDMduRNWkT6a sfviv7gtbebrDaXnWVSw CFc3BGw8OGEtkUfyEbSq OLN1PjP0YNM8fVAy aB1tvPiyjlzibP3zCwn+ TUFMRTwvdGQ+PHRkIHN0 zMobVWljUFFmsA2mFFOc I1m3ZiDzFsO5PDge I7ZjGZUylulqCg80wF7r OnSaKvR8UKuoY0XtsxQ5 QYUzgKPtJRttACG8N09i m0S7AURtHYZlAAP8 ySU8yV1zjRmffglqqQUl dDsgdmVydGljYWwtYWxp X796NHCcfOosJz7NKK93 VY92Q4JlBowjdLYd bGU+PHRhYmxlIHdpZHRo POqiENKqGaIjaPbsRT2b Cb7sTTUnLMWwwCgogRWj WlGgf9jxFUGvAXpq DL2exNtbZ7ZlwQE5TJIw i4m7Vf60V21uX8UciCA+ SMVofBH4aVH9mY3aQzYn XuG7DGrjI617LoXo tRFvKntzp6onj9uuzVo4 IjMwJSIgdmFsaWduPSJ0 t5XtAo68Z83jHRnsEVXd PSIyMCUiIHZhbGln tx9vdB8mEa5+PGNvbCB3 nJU9pO8oTvEsBeI1ACvl Z096ZfSftIXpZtxkH73g M5EhwMJ+PHRyPjx0 OZLhwQtzWO0seGSuJDsg Co0zXUE1YkAuHjDhDOqu D8EhBNPsbbsggpfppOK7 YJGdFYPqsP48Zg3y iPsrAj4sHKMnZHE2XAIo jLHjX5WtdY9nElEvAHKi JOUmS2TxbBSiJFtdW875 NRyuSsQ3YSOawlFs H0NeBYUmiHyoRaY6t3V1 Am7OxYwbfLCrGO8xYzLi OZa7B1UaNxk1LUDjtVwz OC3oiKGlOXjjWe5s uSmztJadJU8eINNrlirf e977KlKhs6kcNGHbqOXv TDewFSG7U31ei3R8PDZl XHQvPSG8uLN8cS9s bGlnbjogbGVmdDsgdmVy cNmbHZjzNYfeG155RTMh hXdkKxLHLzc7N4QeOvz0 OVVdxLlwTN2rxZVb NLwuAp8faEplkOupAS5j SMOgzojst051IbEax2hq GOKjqYWzRZrsYFU6K08f b7Z1EATiOQExJWE8 aUD6pQ0qgTflxucezSDi dDsgdmVydGljYWwtYWxp I952KAVogWwgGo0FBzh8 D6EmIxj0XOLwgHjz RC2cqWJaNDjnEl6rgEkx jRfzWF3wWPObacqbk850 VdTob7thPYZnxNQdSQmc AZY8O61rg6B3MPHc KHBiRCE3hPB1aD1cvGij bjogbGVmdDsgdmVydGlj GJpmAPptE206YWBguBtk PlBheWVyOjwvdGQ+ PL76rd49R9LxDymtRce8 HXKqQJF9wFN2gI4eQMWt FWswh5J9iWA8M8KrlyHz ep6ok9mdJLDzULcf Y29 (more content not included)... [facility] Office/Clinic Noteon 04-18- 024 Office/Clinic Note Patient: RICHARD BOYKIN Age: [...] He had done blood work while in [place]. Reviewing his continuous glucose monitoring system for the last 3 months was done. Averaging A1c is about 8.2. 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 Plan: Will increase his Toujeo to 20 units in the morning continue at 15 in the evening. Continue watching his diet. Continue with continuous glucose monitoring system.. Orders Orders Evaluation and Management: 18640 Office visit - established pt, Level 3 (Order): 04/18/2024 10:01 EDT, Qty: 1, Type 2 diabetes mellitus - Restless leg syndrome - Acquired hypothyroidism - Hyperlipidemia. Diagnosis Acquired hypothyroidism (HAY96-WA E03.9). Course: Stable. Patient is not going to be going back to [place] we will plan in July getting blood work checking kidney function liver function cholesterol and thyroid.. Diagnosis Hyperlipidemia (YCL31-JN E78.5). Course: Continue on statin. Will do blood work in July.. Diagnosis Restless leg syndrome (JRC78-RV G25.81). Course: Chart was updated with the change from his oil gas and pipe tester on his (more content not included)... [facility] Coding Summaryon 04-15-2024 Coding Summary HTMLBase 64 BguobrgcUFm7wJc+PGhl YWQ+RJ6SIPCgF16kpVTq vV6vQ8OJWUwAGdirMAFB IDhWEnTrkpZfYO3yeBFh ZXJu IC8+MG1bYVEeXneqiCWh t7U6lCR6D12xlx8yMJgz yGV6ULEqKuScaytet1bh hQl4QIeqAhzlGfUx NLCarJ05EJY8wF02Iz27 fLLteQRdw3bhoMd3CjLe QKPmJWV6dGoqXSbdk1Ra MCIrA69dtVFkq3V8 IGNvbGxhcHNlOyBlbXB0 pZ1wFEeyanded7yhfhke Lwn5vc86dUSoa6I0dAY3 O5VrziD0DYMqcHLb ZxdfpEZFuO6krryus3si uqqwVvDlRUGuHSu6WMr1 ZXXwoGjsJaNvPN05XSC4 IXPwfsXvH0UsCVDo vPenKlO9o9S9Xz5ZD3LY MvacT7IRUWINMSnooUZ+ LM15rv16Z8JcWlfcEkz3 XMHcBGP9zHJ3xM2d WBTiKYnmn0K2gOX3M2Gt ubUxfr7ze2wwOFFcYRzz G86mqGSow9A7SIMzdNO0 XDYgvPlmRcFtfK84 Oyc+PJOkvMifk8QeRwdy p5mhn4bvqTt8AwgcBSEn rdKyvTwwFXB8q6HoXc8l QFWkhXC5dWU5aG9e DoIkEwZ8NTubP932WrYg sCEoMzckE05xO9HvvJM+ IWNwHwf2OLFolMfbBM7s V5FvEMDjmkgzxRBf lGncEN4dXCSltfszPGJc kS0zBXFcO7g3GtGdUuU5 JWbzO5FkJLRpkezjZn05 nQ1jAaBgKhP4MUfj Y1VhdzY3CCKduALlXXjj RHF7G09aa6B5LHOcQMBm JAK7rEZ7bE6cfTumlxcr bGVmdDsgdmVydGlj TMtfOAurO079KYTffWia PkNvZGluZyBEYXRlOiAg MTAvMjgvMjAyNDwvdGQ+ EJGdQGD0dIvlJFOb mPMkKGxkNb5rmTqmqKfi SX2vRCJrjkesRGUghO1p AJFqyZPwhUueVW6gVAYd tknrq368HeLrIDN9 DKRavZUbH9BaaP9lXqYh LLJwWNAhO8HwiTXgGKwa Z109AMooQnS9TKPfviYd I2TnFMEsdPhzSaD6 v6X8Sc5Yl3WcgffhC8Uw kGAcRjTaCmcxJBk7S3Tj PjwvdHI+QB95FIJnZR49 AWw4IGU0jTwaDFwy ULMuW9CzzK2tRnBqGAAz ZGRkOyc+PHRhYmxlIHdp ZHRoPScxMDAlJyBzdHls JY0oVd3mOAVwUVWg mVoabIObRnClp0shTQAw GPseHK4aiBgmX0WrtYP6 KJKoc2j1Fg92O81oG0Zy dXA+ZWBwjBP9rPS9 cF0jImRfWxR1GVnqL954 UaUftBExEehyz0vca0wu pWr8NsE0ZRRbiiStaGuf LAU6g2XcLe79V30a IHdpZHRoPSIxNSUiIHZh kFmdog8itS2sRf3+PGNv hAI6rRE9zB5rDpWjQlS4 JHdeF226ZhXvpIIa Fzcma4hnw6qctXn8SxLh WHTvorUwpFczKUY1g9Il Sh37F1ErbQznb3XbIzk2 ft81jRKvx6Z4cEO0 T1AaJPGuczeeiREqyDoi KH5lDZKyrsmqXVIdjX6c ECNjA1m2UaIzIrS9LJal J4GgmrZ6KVLmxHUn AXVdwMSCtM8yjyenb2wh cpkeVgFcUVQwPYc7NFe1 VAOooFahBdAaGAD8PpL1 XIT1mIVrfH6gdDxl tivjgH2aAmm+WRQ4rMSg gOITCR0nMdprqGE+PHRk QUF2nOdaFYchYXQbbQ0w KARzO1d4ZtImNmW9 GMdwP8QprgV1ZGNsvEZj RGKicLNWaA2gxtyvm3ti gsfwViLoFTKlZKl8LSh8 LWFsaWduOiBsZWZ0 FwH9MZK8eAMigV7lqOxg bwdghU5xMwb+QmlydGgg SJQ8POx0R4HuLlp6DXKz pLwsEY4jzGCgBQqr Hr4epWuunZhiGO5tRVWo srpbh361OpWqv4mvCEPw eNDjBZqqFET5H38rq3F4 MIYaYVVgQIY4jRN0 xA6hjRkrfwukjMPrcFrm rnPhbJkeCEsuBHlwS778 QDOnpTriMeUzKDq8T2Uk Twa2IWFkzOfzMB0b yGUrFUiiGi6zaUggyPex MH5vCEMenyafz768CsPv w5zxBVGyaEPrHSilPBQ4 L71bc8I0QBSaQGAu BOE0xMI7yW5dkTnpfeol bGVmdDsgdmVydGljYWwt MNbzP126UQLlzGtoUfFi xJl1F3XkWtv1VRUm bLhlSB9xxKUvQTdaKa9c fMajpOtaBK0eNBOytvmt p009PaWvf7dgFDHfpHKv WFceUDS6R40mb0X7 XRKsFPDuIJI7kSC0sB7z bGlnbjogbGVmdDsgdmVy rSeqUSrcYDgkA789ZGTr cDsnPlBhdGllbnQg ICfeZPi6C1TvByyvcQY+ IT96BDHcIQ92pXUosUYj q4cciHw0BoXgZDXdPED4 dBsgCAlln0DkHKBx Z07lyTDhr4A9UWRnaCri hLWfOgLcvNX3nX1dAZyn njime9mvonmrUddpz1iz jc68jB43D04sOFor ZHRoPSIzMCUiIHZhbGln ra7sxU3uCy3+PGNvbCB3 nFV9cH4zXQYiZyH4SYox L506JpZpdHIhFxkx q2hqk0thyCd8PoD4URMr nnSwoSlgCLX0f0LzZy91 Q20vHSluXBMoFMXsHSXo ZDQrpKhvbl9xzY2v Ii8+WQNbzTI5vTB0qN5u IdZnZkC8ENbjW019FjLw sUGgLnkeR29lD9WngAY+ COSoZqn6ZLAyhRar DM1ueRQnUBclPc4zROM8 ZyRgIxKrIMkkP1YdOMIo zattdvuuzIX0PNMqRUQc zQ82Ge8ubEnkBVCz oNZAkR6htijfw4xftrhu JqTkOYRxYUv1YTh9TXKa uPfzYtLiVZK1GkZ3BPI9 fRGomD5ruGmmlabz vT7qO4ZoSQJjppykYd25 tH5jJdNxCxI4GOltTlw+ R7YXOUGAKHHCJJizCDNB BEXLDN90WW69uSXi f0G4cQH0F6HnYDMmepqv ykrlyTX0UKXfDTYcqA19 xPTrWOkzZr7nb9H8k167 JUBsLDKfwL18Jl6e xOdvBEJdkGFIkB0mqnry y1dtgzukDiBgEVTmUSt4 BDc3LDWfgLnqVtIrSTU3 CsI3RQZ7zQIydC4p gCodbnmtsM1eTmy+MDEv UQArJBo9JtukmHC+PHRk SKE8mDqaSHssLCRrgU5k SVSnQ7d7PeBcOrK8 EUlfY2AgGDHutarjFp02 gB8xSlFgQsZ3FHquW4Ri nqI9ESFwkOCwKRksSZZ7 W66yj9T8NEXaPDUd JKP3fCL7jE2rdYrnawmr bGVmdDsgdmVydGljYWwt LVqqQ165LGThvGerEcym ZTmnOJRnSA18PD46 lRRsy0Q9jEH3W5MmECNf hgcjmecxtIF8LKZxMYIk iR99nQIvJAvcAi8ra4E2 h579GTGsOHVaxC43 Da9ozXyrUVFtcJMTzL6o sdnbu5ilmlfgRwMuIBCo IFy1MJk6OCQmzYrgMoLg ZEG4UgO6QJL3sGQr aA2dsGpneyopuI8vBku+ TUFMRTwvdGQ+PHRkIHN0 xOwsQKaiSHHohG4sGZXk A8p2RjGjYgR2BJwn L9DxTMFgowyxTt73mR3u YlRhPcN5PLahX0CgxqF4 VKWntVLpOWpjIRA5A92q m3Z1WZEuCOFqEIM3 jSH9rK0hcMoohbqomLZb dDsgdmVydGljYWwtYWxp L430FIUsmDtyHb2PRE38 ZH26P7LxJystzPZv bGU+PHRhYmxlIHdpZHRo GVjoRPFkFaIttPdoBG1q Hz8eTEZrRYLexAljxZBo WsYuz0utEWNcYLan BQ6ifYoeE8WzzMX3MMRp q9a4Ck59L83fR3EiuWE+ TYCrkVQ4rWJ6gJ3aOtBc TkP8IIrrE428BeOv nKKaAultj2iay4cbxUg7 IjMwJSIgdmFsaWduPSJ0 o5RpQs61K43jYTzcOCPw PSIyMCUiIHZhbGln we8iyW9yJc5+PGNvbCB3 hUR7tN4xGnPxLdP0LNka G001DoWfeOMrQurqP33u V4HsyFG+PHRyPjx0 XFTzmNqbUJ0vnUObXCyt Ez9yYXS3QpBjPuNhYOzd Y6MgCVZihvetuvbidBC0 ULLiLXBxrH60Jw6s pYquIw3cULKfCSH4EBQh jULrA4LsrN6zTrMbXPMb ULQwN0RmdLCbXHluF318 OOdbIpE5JIUfbzKd Z2ZzGCOjdGjzKaJ0t7R1 Fp3RzBmshAUlVH8lPjSo XRa4Z8IcXtk7CTQqmUak QW3vvFNwBQnmEh9d jBzfzGxwJM4rAUFyhieu h572GhAqv8qiRMMgzZZs PLgaNZO6P09ey4U1UGIc TUDfXYC1wTN7zN7d bGlnbjogbGVmdDsgdmVy iGlhTEdgISyxW015XULc gDweUuRQIsf1S1DxAok0 OAUqjDpbEA4caNXy MHjxHu3qkKwxlAqcKI9i VYKywhrrq749OyUgk7yc JHGozXQmDAuyCXX2Q09t k5J5CFTrEJNwMZZ0 yQU9dI9swEsuvlpvlTOt dDsgdmVydGljYWwtYWxp T972LAAaiErhOi5PPlt4 V2QlDgb9RRRfnNts YE9hfSJrYQkgLl5geMth iMqiWM0jATUjehxnh692 LiNkx6ykJWEwtGItPNzs OBE1V66jw1T8DBLt EQBsIMJ9hTZ0sB4ctCzs bjogbGVmdDsgdmVydGlj BWlcZSvyU337BGKbwYfu PlBheWVyOjwvdGQ+ AK63op90I7ZpHqahBdl1 IOOtYIS8hGH0uH5pUDAm AKtgr1C4eMY6P0IxzgJa zp0vk9yfSXFhYPdo Y29 (more content not included)... [facility] Outside Recordson 04-05-2024 Outside Records [id number] [email or web address] [facility] Outside Records [id number] [email or web address] [facility] Office Visiton 04-01-2024 Follow-up visit [id number] Richard Boykin 1940 M Date Provider Department Center 04/01/2024 NAI [facility] Family History Problem Relation Age of Onset Stroke Mother Valvular heart disease Father Family Status - Relation Status Age at Mother Father Level of Service:31994 [place] OFFICE/OUTPATIENT ESTABLISHED MOD MDM 30 MIN Normal [facility] [facility] [facility]on 03-12-2024 Coding Summary HTMLBase 64 BfhnseysDZn8wBc+PGhl YWQ+JX9GUOUuH94huXFp qR6hE8ACZVzOFhkwQMOF YWjXJsXqyyMfPK5ldPEl ZXJu IC8+PK2qIUKbIazutGGu f3Q1vMR2O63sqt6rIDoi iXK9IHHdFaTuvagak1hj uNs8MAbeWwrwZsTp AWKodX73BMP9pJ29Wr30 uUQcsIFka1ejgRv0PuTi TUOuWMA5pHjuQEupg9Wk CVBgU95bcQPnp8E7 IGNvbGxhcHNlOyBlbXB0 jA5wGRiiygnwc5sakgoq Kaa6rd14oQQzl1C7wNR6 P0UoctC1GUAksYWa YlmfyYFMuO8gdpkqz9px mkohBtVuILJuHYp2JFn3 NCYzfAzmWqCtRT02BMF2 PNLovqOhY7GpNWTa kWpnGfC7j3G9Pi7AF3KG GerzJ6HIIRFZBGnlrLX+ TM63ec86D3IcEljtQzw7 ZOBoNGK6lHC6pL1d YRYvWXzfh7N4zVS3X4Ti ovCnly6du3khKEMrCCpk W34twEShw0F4YKTsfDA2 TFEjnOtkHuBjxR82 Oyc+PXLrjRxxg9EpIbri i3nbx2caxNy2SxkjTCRh pkElfLsoLBZ5n9AvLc4a ABYqdQD9yPL0uL7z CiMaFtT2EKrnN898DhUa mHYvQpelJ25cJ5PdiGV+ YJAwEfd9WVZlpPwmHI2e H9CiADNgxwpsjCMu rXksWX1eFEHiuxnqPPIn eA5zKHRcK9o3NnBrCwZ8 IOniN9KoMNKuekjfBh86 iS5wInBgHtZ9JNgn X7EyxoD6CQNheRXoTYkf WZD0M97za7F1IHTvNHKn WTJ9hUM1dX8qcGwloerq bGVmdDsgdmVydGlj CDeoSCooG083LVVmlTru PkNvZGluZyBEYXRlOiAg MDkvMjQvMjAyNDwvdGQ+ KGIpPOK4sDgwKXRl yMVeUObeVg5vyWtknQkc HJ8kVQJjzmdcRRTxyB7q KWJymESxgCidNO3tUFIp ztqgc842AlItEMN9 LBOykTHtK0SjdE2xIjFl BEHnLEJlA7AtrHOyXHjz T458AIgoVmF7ADCdcwYu R4EoOTOngEhiJoM1 y0I1Rs0Fs6KsixohL6Ta fYTjKkHbLjqbPWi5W4Mn PjwvdHI+WH75NXCsTR67 XMo2UAU6pSlpXZsa RSIkL1DacR2hJkZaFFDu ZGRkOyc+PHRhYmxlIHdp ZHRoPScxMDAlJyBzdHls UM1kDr8kWYAoZKPp sYsirFThJmAzs9zwELBl CHrvUI7opNbxM4KcwGL1 GVVwk7k5Bt09V74yC3Wg dXA+XFXelNA7vKN3 hT8aXdHvOlL2GMoxI955 WhKczEBaPvypx2xib0ls oRk2OzH0MGIoqoEwjHbs JBV9c7RaLu30W49c IHdpZHRoPSIxNSUiIHZh tMlkqa6noQ6zDx2+PGNv sGS1uGW2nN7vAyQcQuW2 TLjxL034XnGqkNUe Ojdom7ifr7rpyDt7YgAb PSLkuoEdbGajYIB5f1Mu Aq35K0SnnOwiy9ArEmz6 lo84yLRua1V1sXU0 B4PsASDstjkquKVgmXey OG5iVKXpdgpnUNLkkC5t BQBiS4p9YnAtGoV0OPet X5UfysI7NBVxiWJm LMTacNZLtH4rfrudh0qa omosQzMzFKTpZFg4SYz1 SBIcsLpeBqTqFCM7McU7 ESV1oLYarX8hrTph nhlyoN8tDyp+ERI9sCHr iRRXTW9sXxfkcBG+PHRk KJU0bIwmYNqoTRKbaO1o UQFwZ7b4IfYnUvT1 ZIcuT5SbtcR7TGZlnRIz OBDhpLSTxF1xccqqm3vz tiywYxTwUTJlOBi0ABk6 LWFsaWduOiBsZWZ0 WoK9QIS5fRWttJ4tdLaa ntwgrW6cNfr+QmlydGgg WSA6QKf6C5WvCzv3RAIb fEdvBV6myYScIZqs Gc4mlArgxUyjWM3yXGKh aydec066FjWmr7eoPTAw sZPuKTboSRF3Y32jq9U0 KZZwLHXlPYB2fAF6 jS9kgTqqzalpmCJuzAum flYkjOjmEQxyPHjqS003 VKLlgPdwCbYvJAr8G9Gu Wba6FAUlsJtbZJ6z wHAqUShrSx5faIyneEcj PS8zNJPmgrlcn621NwUz a0wlGFMeyYXfCMkoAXX1 H91yi8E2JPSdCHCh GUU1sAC7eB7uwTtjrvus bGVmdDsgdmVydGljYWwt ZRqnJ690UICagHddMrIc dUb4L6ZcUev7KQRo zKgfDF4chZLcFCxuId9y jMiiyEzjWY9rPLCpvubo z305CaBee3xbAKQdjSVj MUblMYV5K39ot2R5 QLHaTGKjMWS0vXY4kK5r bGlnbjogbGVmdDsgdmVy gKymQBwkISnpQ758QBFc cDsnPlBhdGllbnQg JDvuWNi4F2PiWjfgpDS+ IS51LBNjVW36sREtjIEf v5xllVb6EiUlUUGxJFB3 mMuqLCxlt4ApOYBq R86nsHVto1T7RRHvrSmv qWAkBqVibFW3kO3tBOja haokb8qcxkiuHubow0cz ij39eD34Q34aTHpi ZHRoPSIzMCUiIHZhbGln od4cfS6eWn8+PGNvbCB3 uNZ3oH8eLMMqBkN5ZBos N777HvXbbFCqHqax g7eai7hdcOi4QiD8QQVd dkZpdRjiAJJ8l2EwLe62 U51dRFlyJSPmUENkBESc JSSrtMaryv9ihX5u Ii8+AXNiqCK8dGD6yN0l FaEmZaF2LPxgN784OoKd wVIaBidcZ02cL3AhrIT+ YDMbTgr2RJKdsXcl VW4enYZmHPafFf9qEAH5 YzPvObDmJEwlB1PjRWIs gedgsvijvOB1FFAsGPAb yD24Qc6pxSufRGXg eWQNdH5fkmbvq9dpvkgx LkAfUQFhBUc1DUg1RYPh jIbnFiHsKXS4KaU4DGG4 fKAhxR1dvVlgjnou kO3uP3WhLYRjdcteWb84 sV4uEyFqFkY6QCziAwe+ R5KSYLQGGVGIWTjaEGDQ DSKNBP65AA99iEKy x0G8fHH7C4BrEGMglezv qdlfpJI9KPKoOZLsnJ77 eJUjENvkRa7km0S2v858 GBLoTGSxpD15Kz8q vPojONIwxTNSiK5viuot p5ilfvxgKzSuBCTdOAa7 ZKj3FKWfxQmeUvHvZSN7 HbB5LGS8fWSvwT0v hJimcxxsxH0pTqv+MDEv QDZrRCi7UdgriFP+PHRk LDH3hQuzGOapMSRhfU2k HKGqH6h9UqNkDyQ8 NTziM6DdYGUspmtmPe35 mX9qKnVkBbZ1CFurB1Rg utO6WNKixIQrXXldNUP9 M94ud7Y2NORnVYIg SNN8lZP4cF0uaMzinhxr bGVmdDsgdmVydGljYWwt TXkdW432OLLgfIteKxxa QJpqVWWhZA47HE94 zLTkv0N5mRB0M4OyEXPd iptmldjipNX9HAPvNTOb vC90kNQhUXysKw5oi9S7 i972GKWbLDUkrH59 Zw5faCftTTWdaTFHsB7y ebwuf8tpdirrQcRdYQMt EJv4VGr6CTEtxEwjLmKk PEL3UcL5ZQT0fPAb pJ0uiGhgyvkgkT3kCcd+ TUFMRTwvdGQ+PHRkIHN0 eQmgATmdPPEulA3vZTYr P3q3YxScFcT0NDlx L7DwBOZduzegNi28wC9j RbQkCiY6FLisH3NpgcW2 OLFfiOUqVBywJMV7B23j y8E6LYXmEHGuUOW6 tKM4hU2ojZnobloyxFSr dDsgdmVydGljYWwtYWxp J232ZVGawQqbZw8JES46 MU62X8QcVnoqvYGq bGU+PHRhYmxlIHdpZHRo LWnnETEcFpWliHtbEC3g Dd7cNDTgESFzhKwtxVEh DiLpy8vmLDSgDEdb WA6qnKmzZ3ZrxNB8GYUy v3n0Vn27U64nT9NxsZL+ CXLddFS6dFX6mV9iZnQs BzT8WBfpK838IpCu sCMkWujpw1uoi7pqxAg3 IjMwJSIgdmFsaWduPSJ0 g4JhNz90A17uHMddSQRr PSIyMCUiIHZhbGln fy9vxA2yJh5+PGNvbCB3 nXG2lJ0pAhZgHgP8JWjq J225JkXnvZFeRsjyI10q T3QquWR+PHRyPjx0 QJEmqWstSI1reNWgGJik Pp3tXRI2ZtFnRkQxJQpy N6GaKWTmjagulkjupSH4 WSTuHHYldF29Wg5h wLjjYm3uPEHxHXV0FNFy rMWtZ9ImcN4qHhPjOBGt HDBoP9JpaQCjMXquT831 IFniLrI1BDSbouSz E1KpMGBkhNprHgS3j1Q8 Cn7VqTzcxPZzOT9qViDl AYu0I1SpJtg6NCDatOkk UN7tbNHmLRswJz4w gZtpxQoiKA1aQUDgbknc i555QaMfi8deZCHqpWYc ZLixPXJ6R97rb0R8AEYa UNDiLQE2vSI8gR1x bGlnbjogbGVmdDsgdmVy vZodWXieBEqiG497HVOp tKljRrANExp4B4JiOux3 JQFxzRttQT2fmGXq UJmvFp2awHonlJoaIF9z DVAaqsdok118JaZpi5iv VDWcaYWoTHiyKGI3L00x w4Y6NIRnUFRzBDA9 eNV5zD5njAcfeanqzPYr dDsgdmVydGljYWwtYWxp E011BXAhbCyoOc9LZdc5 O6QjCpv6LXHolAac UR8lqTKuKOfoRi2vuHey sUxyPZ6lYDSyvuwfo732 UnAso3piFAYrdYMoGDqr JBE7N31yz0G4VQUx DXMsSAF5bRX0yC1upNee bjogbGVmdDsgdmVydGlj MAfrVQevB815VJOvkOzf PlBheWVyOjwvdGQ+ AT84tj45L2ViLowqQkt5 IKGaEAJ1yKX3kN4jEZRx XMzru2D5eTW5E9OxhrEe pl1cq8uoNNAdZGtd Y29 (more content not included)... [facility] Outside Recordson 03-04-2024 Outside Records [id number] [email or web address] [facility] Office/Clinic Noteon 024 Office/Clinic Note Patient: RICHARD [...] All Problems Acquired hypothyroidism / SNOMED CT 562672670 / Confirmed Afib / SNOMED CT 83953868 / Confirmed Chronic renal insufficiency / SNOMED CT 5316911352 / Confirmed Degenerative arthritis / SNOMED CT 9944322788 / Confirmed Gout / SNOMED CT 942705675 / Confirmed History of psoriatic arthritis / SNOMED CT 984508457 / Confirmed HTN (hypertension) / SNOMED CT 0187954434 / Confirmed Hyperlipidemia / SNOMED CT 67116628 / Confirmed PAD (peripheral artery disease) / SNOMED CT 2105317230 / Confirmed Thoracolumbar back pain / SNOMED CT 204009401 / Confirmed Type 2 diabetes mellitus / SNOMED CT 278131407 / Confirmed, Active Problems (11) Acquired hypothyroidism [...] 107.230 kg Body Mass Index 33.47 kg/m2 [place] Body Weight Calculated 74.087 kg BSA Measured 2.31 m2 General: Alert and oriented, No acute distress. Neck: No carotid bruit, (more content not included)... [facility] Miscellaneouson 02-26-2024 Miscellaneous [id number] [email or web address] Provider Orderson 02-26-2024 Provider Orders [id number] #[email or web address] Coding Summaryon 02-11-2024 Coding Summary HTMLBase 64 GzuyxjteBHf9tCz+PGhl YWQ+HE6IDPYpP89ynGBb pJ0pR0YXGIyLQuuxAYQU CHqEIfQkexZiHR4mcBTd ZXJu IC8+GZ2gALRxRzgzbZKt k3F7sKE7X52ymt0wWLhd sEW2ZWSqWqZmeczin1zl jBh2EKkdLspmUiIu WCOopU24ENR3wR55Tm77 vKXycYLkz5zetTx4TsRo DHTbZTI9zPmwEKmjr0Om UWRyT14laIWjw5R9 IGNvbGxhcHNlOyBlbXB0 mM9yYOtxpenkn1lpcutw Dns1sf27kNGmh0T9wZM3 Z6WdzsI6RDNngVWu JzthiMHCtJ9vpmbxc1oo jsdoCaToMSAnJPz7FBj4 DWGbjJhwTrGeQP48FUI4 HUZmvlGmE3CeEGSi kYctOrV3c5X0Ey6ES5JO FfklL2FLQXDSORfwvOD+ HX07je11M8AmLuhoPli8 HTJfVWX3jZF5mX4c TONeWTqhl5P8lEB6F6Bq tgYapd5fi9zdCLIzJGta Q09bkPEhm1Y0XZImyKK7 WVSvhVaoCcHauZ24 Oyc+VYYtaFtyx5BmLafb c5gkw0gqkZa9NefhYSTm trKarLyeMVC1j2BiVj4s RAUniNR8pSG2bV6z CkYuToT5XHqoH666XxZv eBOeYvsxP31fK1MsbUT+ AYCbKdg2DBTtsHixMX7j D5BrQKFcbhklsHCm dQtuCD0iUCItsofnXZXd uV0bMKXdV7n8DmNxHiA8 CBuqM2QiOGUddaslMi24 qP2iDmPjFfQ1JGjs L8SknmM4GTEsqPPmFPdt OUL4C11di2W1QQDuUBGk FAQ1dZG2hT6jaOcokdfs bGVmdDsgdmVydGlj QWscBYrqN803ZKLavTxr PkNvZGluZyBEYXRlOiAg MDgvMjUvMjAyNDwvdGQ+ YYHnJSU0fXnvLXVd nJXqWXbdLr1tnSvsfCza BX2fBORfhttaWCMdxN3a RCHjfSChhGbeWB0iJVLa ehvdr233QzLiRGW1 PRJmhBIyB3ByaV1kOeGc CIGzWURwN0MkfQIpREhe L824IGxlQtC4LQKckqSi Z5LwGTGctKemXrS3 l9N0Yd0Lx0BccmfnH8Zq aTFtUuVcPlhmITu6J4Uu PjwvdHI+LZ97LXSdIF66 DQx2GZO8cUelVQvw POFoG7YtnV1fGeFtKNUk ZGRkOyc+PHRhYmxlIHdp ZHRoPScxMDAlJyBzdHls UM0pKg2wTAHcWTPb nMjwkLPaOxQow3lgEHRf ZAeaOT9tvMnxX6ZhwHS9 JUXan0f8Ma87H19tK9Rs dXA+YRRrnLB7rGD7 yG3gXsMzQaB9DUujB287 ZgKwqVYfBmpzc6nsh3bv jBs3JsP9WAXjkuCkdJxg YJK0d5KfDw14R32t IHdpZHRoPSIxNSUiIHZh eIrdev8syT2vKk1+PGNv qKY3jNP7bE5qWoJwCxD7 VHfuN008OhKgoNKj Latsh8auh3dnqCq2XhGi TYUmfyAqwYvnFRM5m2Yf Bk10J1SekFlve3MqNxp7 or04dQTel8E3oCW3 L9KbTYPxtqtgaMZvsQrr LS0aYAUprnlzHPFspD4n XYJcP7h9OkGlPaW0KMnb T9DselF0VLIlaIJd AFDpoORYyB9jaoyoh8hk shfsKaWySVUaUWb1WSa8 GWRkcWwvXoRkBDK1BmZ4 TKL7pZEqkZ9cmJjs nfubeH2lDgm+VJD6kUXi vCMXJF5uAwyrvOR+PHRk WES2rIarEIcxJHCuaV2o YNRsT1o6PlPhHvD3 QZufF0CkysQ8RLLawMMu KEQmuYKSvT2zuzwng8wd nsokIuLaEVIfCZf1PSb8 LWFsaWduOiBsZWZ0 TuP0XKA9gJNynH3kxErj omnekS1vPvq+QmlydGgg DUO3BBj3S5ZjTpc3YMGz dNhtLZ1fbLBsNAbz Kn4syErguBiiOD2wNICn jtorc801HjRnd4lgAQNx eRIuWXgaYRJ1T40mz0Q9 MZAlALWcGCJ8hOX5 sE6yqHhwvvjdhIDaaClp hiRzbXguXOhoVZsyG011 HHKpkHkeXgRfKIp6A0Pa Oez5AEMalZmrOO0b xYQiRJkiKc2suQrduGhf IQ9pMTUljmxpy876JmDk w6llUBWokNMuUArsIHM6 K38mz2M9ICTqNFWi JCY0mOH3lG2iwTyctcnp bGVmdDsgdmVydGljYWwt FWtuR514JJMijFgqUyTb zRr6W0UcBor6BXAl cJwhVI5oqXXoWWjyVa1r jPcbiGjjAD3pPPXyhcyr c004LjMxc3caHKJvmJYi XLgbNAD3G19ur8O2 DVRwMKIuMXO4mQJ7fY6f bGlnbjogbGVmdDsgdmVy cPbqWNmgFBiwE399CCLl cDsnPlBhdGllbnQg DMgvZDw7K5MjPmtytYW+ BI58UFCcOZ36hHTxsVOu d3szvOn6RvQgVGOtOAJ3 hLviRFgtr2KfUGDq J87syCOnu7L4TDOenXnj sPXmRnZjrPN2uH8fTRef sajdp3wvuzglMcgws5th nl56fF85H01zWEjx ZHRoPSIzMCUiIHZhbGln ob3tdX9jXc5+PGNvbCB3 gTU6hC5pFTEwAlC4HOjs S847EcZzpLZjCsfh a5vue7jigUv7LrG6ZSLr vdTbuCrzXUJ6v2LnMg31 H38lQDbfYPFyHOSdGMHk BZSvzJqlub6glB2o Ii8+SBAtuKK1oZQ4mL7r IrZtUeH1KRzjM312WcQi yCQkRmzuI30xU4VixVJ+ QLLpOmk9WTNlbDty QT3tjKObPWstDv3cDCM8 JwEzStHdPWidK4XtHNBo gfiqmfydgSH7ZOBrACDx kC85Rt0xpDxyUBMl tYWDeG6odyjyy7gphgra LbOeDOBgUTc7BCd0CEYv eRlnMtDkKBV9ZrJ8JVX5 pUMbqN5sjUmotblo sH6bB1QwDDCzgfmzJm83 jV4fSzPdMjW2BKuqIwg+ B1TNCJOJLYKBVJquAZVI NTLKUW84AF95uHRs l2E8xPC0O1AcTAYhsrrf fbgqlQQ7EGXvPGTivS32 rMFiYLpoXr7ck0T0n740 KGCyNXZkiG43Ce9g oZhsDYOmsJQOxA1opxgi p4fqwtuwZfUyPDTcCVr7 AUu7ESXciGieRhGrYOP1 AcQ9JQX3kWLbnR4p fZhlwwndlM8lNlp+MDEv KKIpGVm4BqticYZ+PHRk ZLI6jLahEFriVMAowY5n AOQtY5f0OwMzKxO5 PUznR4GgWFNfykfdBx92 wK9gLrHgIpP8VLtoU2Ui odV9IVPurUJeYPwfBUO2 S08pn2B7MBWoTDAk XNI9qMR0nX2ouJolxjje bGVmdDsgdmVydGljYWwt BLjgB407GSWeiEtsLiah UUhuBUShGU50FQ16 qWQtd7Y0fYW9Y9MsMWGu bzcdtkxrwWN1WASfNLTy gG77qLSdYFogYj8gv5C6 z987USXaGYPjrV61 Hr6wcIpqBTEwxFWRxB0f buetb1jrgpxhDfTiVBPw LNh8MMw9AATotAcjYtBn GRH9PzK0ICA5oGRq rW5jqTsyzfojaP7oNrj+ TUFMRTwvdGQ+PHRkIHN0 dVkgENsdCSKaeU2sTIJv A4c2WwDyAoR4KZlz U7IcTOKnextoOm61bH6y TcNaEmM9XNssL4EebcR5 VUAknTCmXEpxPXU9T08u r4L7EEUhJSKzEDD2 dJR0eM3woCmkryxtlMEi dDsgdmVydGljYWwtYWxp I412IXPfqPdnPjTjG7Uk cmluZyBPdXRwYXRp AK81YY50CS40T7RxJigr dGFibGU+PHRhYmxlIHdp ZHRoPScxMDAlJyBzdHls VS1cFl4rGOKcQUXi yRfaoGYnLrCme7gnDBEz MQccBU7akAuiD8BgdIZ3 NDOfl7y6Zd09J40gN5Xp dXA+FJDrfWY6wFI0 kN4bOnJlLbP3GVrtZ830 EsEwgLOiCuuqh2xes8ka iMf9AeOnPXUcgfLogItc BTI0z6MwRi16E28c IHdpZHRoPSIyMCUiIHZh wZdaeg6cwP9wLc7+PGNv aXJ6mVZ7dU0iLcKkVsZ3 HZspG244WbKnmEEt NmvhB77yW7VrwHO+PHRy Wsp5VGZicJixYS9daWHj GGbwPp3zEKP8OeWaBwHf SHydL1VfVVVuucxa lyxozNI9HCUnPWVhqL64 Mc1bkIvdWg9nPLMdWUJ4 JQDmnOSuA7ZmxM6zRkFm CYFlESJjY9YimOCc MTmbL512JPglIhX2FUOh qaDmM7BhEMFegTcaUdI3 s2W1Eq3FcUygfOCfIB4b YuMpCKk2E3SlHsh2 HCGawNlfAZ7vzFVdYEek He8juVocsMjxBP2kIFEg uqzql740EtOup7fbUJDt gJCuPNpvAPC1N79s u2C7KFSzPMMqCVI5mMH5 sO2ipJrrseoblKWonVnr fjFquOepTWnmFMyhX084 IHRvcDsnPkZJTjo8 A3SaGca7MXGrnCpoGG0k pSTuBNikRh9duVomeNne XX2kNFHfxpfxy891AyDl a4sgIKFrhGOnZDng PGC1I90zm5L0TPNoEZKa INB8qQN3xX5izAleiruy bGVmdDsgdmVydGljYWwt ZGblY514SBKriDdh Ik7XRxw8X3ZqLyj1VAEj kYqhWE5ouRCiVXalDh9w eFajhWrlJD5tYVTwjofw x386YkUsv7dpBLLo kLLlSIshNMG7A77ow0Z1 ACSnRXKhXOH5fQN5fW3g bGlnbjogbGVmdDsgdmVy zCooJOryAZxhZ868 IHRvcDsnPlBheWVyOjwv dGQ+ST63gd75Q1GfEngr Osr5QUDkEJB4qFD2fJ1o FVDdLXamm8D7gVW4 J2J (more content not included)... Normal [facility] BNPon 03-26-2022 Natriuretic peptide B (Bld) [Mass/Vol] 629.0 pg/mL Normal <=1,800.0 [facility] [place] Comment on above: Performed By: #### B MP, TSH, BNP, LIPID #### [facility] [address] [place], [place] [address] Dr. Aaron Ling LIPID PROFILEon 03-26-2022 CHOL-HDL RATIO NORM SEE BELOW Normal [facility] Comment on above: Result Comment: 3.3 - 4.4 LOW RISK 4.4 - 7.1 AVERAGE RISK 7.1 - 11.0 MODERATE RISK >11.0 HIGH RISK Performed By: #### B MP, TSH, BNP, LIPID #### [facility] [address] [place] [address] [address] Aaron Ling Cholesterol [Mass/Vol] 212 mg/dL Critically high <=200 [facility] [place] Comment on above: Performed By: #### B MP, TSH, BNP, LIPID #### [facility] [address] [place] [address] Dr. Aaron Ling Cholesterol in HDL [Mass/Vol] 86 mg/dL Critically high 40-60 [facility] [place] Comment on above: Performed By: #### B MP, TSH, BNP, LIPID #### [facility] [address] [address] [address] Aaron Ling Cholesterol in LDL [Mass/Vol] 98.4 mg/dL Normal [facility] [place] Comment on above: Performed By: #### B MP, TSH, BNP, LIPID #### [facility] [address] [place] [address] Dr. Aaron Ling Cholesterol.total/Cho lesterol in HDL [Mass ratio] 2.5 {ratio} Normal [facility] [place] Comment on above: Performed By: #### B MP, TSH, BNP, LIPID #### [facility] [address] [place] [address] Dr. Aaron Ling HDL NORMAL > or = 60 mg/dl - LOW CARDIOVASCULAR RISK <40 mg/dl - HIGH CARDIOVASCULAR RISK Normal [facility] [place] Comment on above: Performed By: #### B MP, TSH, BNP, LIPID #### [facility] [address] [place] [address] Dr. Aaron Ling LDL CALC NORMAL SEE BELOW Normal [facility] Comment on above: Result Comment: <100 mg/dl OPTIMAL 100 - 129 mg/dl NEAR OR ABOVE OPTIMAL 130 - 159 mg/dl BORDERLINE HIGH 160 - 189 mg/dl HIGH >190 mg/dl VERY HIGH Performed By: #### B MP, TSH, BNP, LIPID #### [facility] [address] [address] [address] Aaron Ling Triglyceride [Mass/Vol] 138 mg/dL Normal <=150 [facility] Comment on above: Performed By: #### B MP, TSH, BNP, LIPID #### [facility] [address] [place] [address] Dr. Aaron Ling VLDL CALC 27.6 mg/dL Normal [facility] Comment on above: Performed By: #### B MP, TSH, BNP, LIPID #### [facility] [address] [address] [address] Aaron Ling PROF CHEM 8 (BAS METB)on Anion gap [Moles/Vol] 7.4 mmol/L Normal [facility] Comment on above: Performed By: #### B MP, TSH, BNP, LIPID #### [facility] [address] [address] [address] Aaron Ling Calcium [Mass/Vol] 9.6 mg/dL Normal 8.5-10.1 [facility] Comment on above: Performed By: #### B MP, TSH, BNP, LIPID #### [facility] [address] [place] [address] Dr. Aaron Ling Chloride [Moles/Vol] 94 mmol/L Critically low 98-107 [facility] Comment on above: Performed By: #### B MP, TSH, BNP, LIPID #### [facility] [address] [address] [address] Aaron Ling CO2 [Moles/Vol] 36.2 mmol/L Critically high 21.0-32.0 [facility] Comment on above: Performed By: #### B MP, TSH, BNP, LIPID #### [facility] [address] [address] [address] Aaron Ling Creatinine [Mass/Vol] 2.27 mg/dL Critically high 0.70-1.30 [facility] Comment on above: Performed By: #### B MP, TSH, BNP, LIPID #### [facility] [address] [address] [address] Aaron Ling EGFR-AF ERITREAN 34 mL/min/1.73m2 Critically low >=60 [facility] Comment on above: Performed By: #### B MP, TSH, BNP, LIPID #### [facility] [address] [address] [address] Aaron Ling EGFR-NON AF ERITREAN 28 mL/min/1.73m2 Critically low >=60 [facility] Comment on above: Performed By: #### B MP, TSH, BNP, LIPID #### [facility] [address] [place] [address] Dr. Aaron Ling Glucose [Mass/Vol] 214 mg/dL Critically high 74-106 [facility] Comment on above: Performed By: #### B MP, TSH, BNP, LIPID #### [facility] [address] [place] [address] Dr. Aaron Ling Potassium [Moles/Vol] 3.6 mmol/L Normal 3.5-5.1 [facility] Comment on above: Performed By: #### B MP, TSH, BNP, LIPID #### [facility] [address] [place] [address] Dr. Aaron Ling Sodium [Moles/Vol] 134 mmol/L Critically low 136-145 Th [facility] Comment on above: Performed By: #### B MP, TSH, BNP, LIPID #### [facility] [address] [place] [address] Dr. Aaron Ling Urea nitrogen [Mass/Vol] 48.0 mg/dL Critically high 7.0-18.0 [facility] Comment on above: Performed By: #### B MP, TSH, BNP, LIPID #### [facility] [address] [place] [address] Dr. Aaron Ling Urea nitrogen/Creatinine [Mass ratio] 21.1 mg/mg Normal [facility] Comment on above: Performed By: #### B MP, TSH, BNP, LIPID #### [facility] [address] [place] [address] Dr. Aaorn Ling TSHon 03-26-2022 TSH 2.606 uIU/mL Normal 0.358-3.740 [facility] Comment on above: Performed By: #### B MP, TSH, BNP, LIPID #### [facility] [address] [place] [address] Dr. Aaron Ling B-Type Natriuretic Peptideon 01-19-2022 Natriuretic peptide B (Bld) [Mass/Vol] 749.0 pg/mL High 5-100 [facility] Comment on above: Order Comment: Result Comment: PERF ORMED BY: [place] [address] PATHOLOGIST FILAMENT SHAPER SERVANDO AKERS M.D. Performed By: #### B MP, LIPID, TSH3, BNP #### [address] Basic Metabolic Panelon 08-0 Calcium [Mass/Vol] 8.5 mg/dL Normal 8.2-10.2 [facility] Comment on above: Order Comment: Performed By: #### B MP, LIPID, TSH3, BNP #### [address] Chloride [Moles/Vol] 103 mmol/L Normal 95-114 [facility] Comment on above: Order Comment: Performed By: #### B MP, LIPID, TSH3, BNP #### [address] CO2 [Moles/Vol] 31.5 mmol/L High 22.0-30.0 [facility] Comment on above: Order Comment: Performed By: #### B MP, LIPID, TSH3, BNP #### [address] Creatinine [Mass/Vol] 2.03 mg/dL High 0.64-1.27 [facility] Comment on above: Order Comment: Performed By: #### B MP, LIPID, TSH3, BNP #### [address] Estimated GFR ( Ava 38 Normal [facility] Comment on above: Order Comment: Result Comment: GFR estimated reference range: According to KDOQI guidelines, <60 ml/min/1.73m2 is sufficient to diagnose a patient with chronic kidney disease. Performed By: #### B MP, LIPID, TSH3, BNP #### [facility] [address] [id number] [place] Estimated GFR (Non- Am 32 Normal [facility] Comment on above: Order Comment: Performed By: #### B MP, LIPID, TSH3, BNP #### [facility] [address] [id number] [place] Glucose [Mass/Vol] 99 mg/dL Normal 70-100 [facility] Comment on above: Order Comment: Result Comment: [facility] Glucose Reference Range is dependent on time and content of last meal. Glucose of more than 200 mg/dL in a nonstressed, ambulatory subject supports the diagnosis of Diabetes Mellitus. ADA recommended reference range Performed By: #### B MP, LIPID, TSH3, BNP #### [facility] [address] Potassium [Moles/Vol] 4.9 mmol/L Normal 3.5-5.1 [facility] Comment on above: Order Comment: Performed By: #### B MP, LIPID, TSH3, BNP #### [facility] [address] [id number] [place] Sodium [Moles/Vol] 142 mmol/L Normal 136-146 [facility] Comment on above: Order Comment: Performed By: #### B MP, LIPID, TSH3, BNP #### [facility] [address] [place] [address] [place] Urea nitrogen [Mass/Vol] 50 mg/dL High 9-23 [facility] Comment on above: Order Comment: Performed By: #### B MP, LIPID, TSH3, BNP #### [facility] [address] [place] [address] [place] Cholesterol [Mass/volume] in Serum or PlasmaOrdered By: Sweetie Tomlinson on 01-19-2022 Cholesterol [Mass/Vol] 259 mg/dL 140-200 [facility] Comment on above: Chol less than 200 m g/dl low risk Chol 201-239 mg/dl borderline risk Chol 240 mg/dl and greater high risk Cholesterol in LDL Calc [Mas s/Vol]Ordered By: Sweetie Tomlinson on 01-19-2022 Cholesterol in LDL [Mass/Vol] 142 mg/dL 0-100 [facility] Comment on above: LDL ATP III CLASSIFI CATION LDL less than 100 mg/dL Optimal LDL 100-129 mg/dL Near or above optimal LDL 130-159 mg/dL Borderline high LDL 160-189 mg/dL High LDL greater than 189 mg/dL Very high Cholesterol in VLDL Calc [Ma ss/Vol]Ordered By: Sweetie Tomlinson on 01-19-2022 Cholesterol in VLDL [Mass/Vol] 12 mg/dL [facility] Creatinine and Glomerular fi ltration rate.predicted panel (S/P/Bld)Ordered By: Sweetie Tomlinson on 01-19-2022 Creatinine [Mass/Vol] 2.03 mg/dL 0.64-1.27 [facility] Estimated glomerular filtrat ion rate (GFR) non- AmericanOrdered By: Sweetie Tomlinson on 01-19-2022 GFR/1.73 sq M.predicted among non-blacks MDRD (S/P/Bld) [Vol rate/Area] 32 mL/Min [facility] - Chemistry and C hemistry - challengeOrdered By: Sweetie Tomlinson on 01-19-2022 Natriuretic peptide B (Bld) [Mass/Vol] 749.0 pg/mL 5-100 [facility] Lipid Panelon 01-19-2022 Cholesterol [Mass/Vol] 259 mg/dL High 140-200 [facility] Comment on above: Order Comment: [phone]- [phone] Result Comment: Chol less than 200 mg/dl low risk Chol 201-239 mg/dl borderline risk Chol 240 mg/dl and greater high risk Performed By: #### B MP, LIPID, TSH3, BNP #### [address] Cholesterol in HDL [Mass/Vol] 105 mg/dL High 29-71 [facility] Comment on above: Order Comment: [phone]- [phone] Result Comment: HDL CHOL ATP-III CLASSIFICATION Cardiovascular Risk HDL > or equal to 60 mg/dL LOW HDL < 40 mg/dL HIGH Performed By: #### B MP, LIPID, TSH3, BNP #### [facility] [address] Cholesterol.total/Cho lesterol in HDL [Mass ratio] 2.5 {ratio} Normal <5.0 [facility] Comment on above: Order Comment: [phone] Performed By: #### B MP, LIPID, TSH3, BNP #### [facility] [address] LDL Cholesterol,Calculate d 142 mg/dL High 0-100 [facility] Comment on above: Order Comment: [phone] Result Comment: LDL ATP III CLASSIFICATION LDL less than 100 mg/dL Optimal LDL 100-129 mg/dL Near or above optimal LDL 130-159 mg/dL Borderline high LDL 160-189 mg/dL High LDL greater than 189 mg/dL Very high Performed By: #### B MP, LIPID, TSH3, BNP #### [facility] [address] Triglyceride w/Reflex 60 mg/dL Normal 35-149 [facility] Comment on above: Order Comment: [phone] Result Comment: TRIG ATP III CLASSIFICATION TRIG less than 150 mg/dL Normal TRIG 150-199 mg/dL Borderline high TRIG 200-500 mg/dL High TRIG greater than 500 mg/dL Very high Standard traceable to the Center for Disease Conrtrol and Prevention (CDC) test method. Performed By: #### B MP, LIPID, TSH3, BNP #### [facility] [address] VLDL CHOLESTEROL 12 mg/dL Normal [facility] Comment on above: Order Comment: [phone] Performed By: #### B MP, LIPID, TSH3, BNP #### [facility] [address] No Panel InformationOrdered By: Sweetie Tomlinson on 01-19-2022 Estimated GFR () 38 mL/Min [facility] Comment on above: GFR estimated refere nce range: According to KDOQI guidelines, <60 ml/min/1.73m2 is sufficient to diagnose a patient with chronic kidney disease. Pharmacy Creatinine Clearance (Chem N/A [facility] Serum or plasma calcium shelbi urement (mass/volume)Ordered By: Sweetie Tomlinson on 01-19-2022 Calcium [Mass/Vol] 8.5 mg/dL 8.2-10.2 [facility] Serum or plasma chloride alex surement (moles/volume)Ordered By: Sweetie Tomlinson on 01-19-2022 Chloride [Moles/Vol] 103 mmol/L 95-114 [facility] Serum or plasma glucose shelbi urement (mass/volume)Ordered By: Sweetie Tomlinson on 01-19-2022 Glucose [Mass/Vol] 99 mg/dL 70-100 [facility] Comment on above: ADA recommended refe rence range Random Glucose Reference Range is dependent on time and content of last meal. Glucose of more than 200 mg/dL in a nonstressed, ambulatory subject supports the diagnosis of Diabetes Mellitus. Serum or plasma high density lipoprotein (HDL) cholesterol measurementOrdered By: Sweetie Tomlinson on 01-19-2022 Cholesterol in HDL [Mass/Vol] 105 mg/dL 29-71 [facility] Comment on above: HDL CHOL ATP-III CLA SSIFICATION Cardiovascular Risk HDL > or equal to 60 mg/dL LOW HDL < 40 mg/dL HIGH Serum or plasma potassium me asurement (moles/volume)Ordered By: Sweetie Tomlinson on 01-19-2022 Potassium [Moles/Vol] 4.9 mmol/L 3.5-5.1 [facility] Serum or plasma sodium measu rement (moles/volume)Ordered By: Sweetie Tomlinson on 01-19-2022 Sodium [Moles/Vol] 142 mmol/L 136-146 [facility] Serum or plasma total carbon dioxide measurement (moles/volume)Ordered By: Sweetie Tomlinson on 01-19-2022 CO2 [Moles/Vol] 31.5 mmol/L 22.0-30.0 [facility] Serum or plasma total choles terol/high density lipoprotein (HDL) cholesterol mass ratOrdered By: Sweetie Tomlinson on 01-19-2022 Cholesterol.total/Cho lesterol in HDL [Mass ratio] 2.5 {ratio} <5.0 [facility] Serum or plasma urea nitroge n measurement (mass/volume)Ordered By: Sweetie Tomlinson on 01-19-2022 Urea nitrogen [Mass/Vol] 50 mg/dL 03-11 [facility] TSH DL <= 0.005 mIU/L QnOrde red By: Sweetie Tomlinson on 01-19-2022 TSH Qn 11.52 m[IU]/L 0.45-5.33 [facility] Thyroid Stimulating Hormoneo n 01-19-2022 TSH Qn 11.52 m[IU]/L High 0.45-5.33 [facility] Comment on above: Order Comment: 1- [phone] Result Comment: PERF ORMED BY: [place] [address] PATHOLOGIST FILAMENT SHAPER SERVANDO AKERS M.D. Performed By: #### B MP, LIPID, TSH3, BNP #### [facility] [address] Triglyceride [Mass/volume] i n Serum or PlasmaOrdered By: Sweetie Tomlinson on 01-19-2022 Triglyceride [Mass/Vol] 60 mg/dL 35-149 [facility] Comment on above: TRIG ATP III CLASSIF ICATION TRIG less than 150 mg/dL Normal TRIG 150-199 mg/dL Borderline high TRIG 200-500 mg/dL High TRIG greater than 500 mg/dL Very high Standard traceable to the Center for Disease Conrtrol and Prevention (CDC) test method. BNPon 12-21-2021 Natriuretic peptide B (Bld) [Mass/Vol] 2048.0 pg/mL Critically high <=1,800.0 [facility] Comment on above: Performed By: #### B MP, BNP #### [facility] [address] [address] [address] Aaron Ling PROF CHEM 8 (BAS METB)on Anion gap [Moles/Vol] 11.1 mmol/L Normal [facility] Comment on above: Performed By: #### B MP, BNP #### [facility] [address] [address] [address] Aaron Ling Calcium [Mass/Vol] 8.7 mg/dL Normal 8.5-10.1 [facility] Comment on above: Performed By: #### B MP, BNP #### [facility] [address] [address] [address] Aaron Ling Chloride [Moles/Vol] 106 mmol/L Normal 98-107 [facility] Comment on above: Performed By: #### B MP, BNP #### [facility] [address] [address] [address] Aaron Ling CO2 [Moles/Vol] 30.9 mmol/L Normal 21.0-32.0 [facility] Comment on above: Performed By: #### B MP, BNP #### [facility] [address] [place] [address] Dr. Aaron Ling Creatinine [Mass/Vol] 2.07 mg/dL Critically high 0.70-1.30 [facility] Comment on above: Performed By: #### B MP, BNP #### [facility] [address] [place] [address] Dr. Aaron Ling EGFR-AF ERITREAN 38 mL/min/1.73m2 Critically low >=60 [facility] Comment on above: Performed By: #### B MP, BNP #### [facility] [address] [place] [address] Dr. Aaron Ling EGFR-NON AF ERITREAN 31 mL/min/1.73m2 Critically low >=60 [facility] Comment on above: Performed By: #### B MP, BNP #### [facility] [address] [address] [address] Aaron Ling Glucose [Mass/Vol] 138 mg/dL Critically high 74-106 [facility] Comment on above: Performed By: #### B MP, BNP #### [facility] [address] [address] [address] Aaron Ling Potassium [Moles/Vol] 5.0 mmol/L Normal 3.5-5.1 [facility] Comment on above: Performed By: #### B MP, BNP #### [facility] [address] [address] [address] Aaron Ling Sodium [Moles/Vol] 143 mmol/L Normal 136-145 [facility] Comment on above: Performed By: #### B MP, BNP #### [facility] [address] [address] [address] Aaron Ling Urea nitrogen [Mass/Vol] 43.0 mg/dL Critically high 7.0-18.0 [facility] Comment on above: Performed By: #### B MP, BNP #### [facility] [address] [address] [address] Aaron Ling Urea nitrogen/Creatinine [Mass ratio] 20.8 mg/mg Normal [facility] Comment on above: Performed By: #### B MP, BNP #### [facility] [address] [address] [address] Aaron Ling XR shoulder RT min 2V*on XR shoulder RT min 2V* [facility] Main [place] [address] [place] [address] XRay Report Signed Patient: Richard Boykin MR#: [id number] : 1940 Acct:[id number] Age/Sex: 81 / M ADM Date: 12/02/21 Loc: [facility] Room: Type: [facility] Attending Dr: Teofilo Person MD [...] Rosado Jr., M.D.12/02/2021 1:52 PM Dictation Location: [place] [address] Transcribed By: [facility] 12/02/21 1352 Dictated By: Cyrus Rosado Jr, MD 12/02/21 1351 Signed By: 12/02/21 1352 [facility] BASIC METABOLIC PANEL 10-17 Calcium [Mass/Vol] 8.7 mg/dL Normal 8.6-10.3 [facility] Comment on above: Order Comment: No: D o not add to previous draw Performed By: #### 5 0608, 48398 #### [facility] [address] [place] [id number], [facility] Chloride [Moles/Vol] 98 mmol/L Normal 98-107 [facility] Comment on above: Order Comment: No: D o not add to previous draw Performed By: #### 5 0608, 96023 #### [facility] [address] [place] [address], [place] CO2 [Moles/Vol] 29 mmol/L Normal 21-31 [facility] Comment on above: Order Comment: No: D o not add to previous draw Performed By: #### 5 0608, 83565 #### [facility] [address] [place] [address], [place] Creatinine [Mass/Vol] 1.00 mg/dL Normal 0.70-1.30 [facility] Comment on above: Order Comment: No: D o not add to previous draw Performed By: #### 5 0608, 91466 #### [facility] [address] [place] [address], [place] GFR/1.73 sq M.predicted among blacks MDRD (S/P/Bld) [Vol rate/Area] mL/min/{1.73_m2} Normal >60 [facility] Comment on above: Order Comment: No: D o not add to previous draw Result Comment: Calc ulation may not be valid for patients over 70 years Performed By: #### 5 0608, 36494 #### [facility] [address] [place] [address], [place] GFR/1.73 sq M.predicted among non-blacks MDRD (S/P/Bld) [Vol rate/Area] mL/min/{1.73_m2} Normal >60 [facility] Comment on above: Order Comment: No: D o not add to previous draw Result Comment: Calc ulation may not be valid for patients over 70 years Performed By: #### 5 0608, 84618 #### [facility] [address] [place] [address], [place] Glucose [Mass/Vol] 288 mg/dL High 70-100 [facility] Comment on above: Order Comment: No: D o not add to previous draw Performed By: #### 5 06, 93035 #### [facility] [address] [place] [address], [place] Potassium [Moles/Vol] 4.7 mmol/L Normal 3.5-5.1 [facility] Comment on above: Order Comment: No: D o not add to previous draw Performed By: #### 5 06, 59468 #### [facility] [address] [place] [address], [place] Sodium [Moles/Vol] 135 mmol/L Low 136-145 [facility] Comment on above: Order Comment: No: D o not add to previous draw Performed By: #### 5 0608, 15786 #### [facility] [address] [place] [address], [place] Urea nitrogen [Mass/Vol] 28 mg/dL High 7-25 [facility] Comment on above: Order Comment: No: D o not add to previous draw Performed By: #### 5 06, 99463 #### [facility] [address] CBC COMPLETE BLOOD COUNTon 0 - Erythrocyte distribution width (RBC) [Ratio] 14.3 % Normal 11.5-15.0 [facility] Comment on above: Order Comment: No: D o not add to previous draw Performed By: #### 5 06, 03532 #### [facility] [address] [facility] [address] Hematocrit (Bld) [Volume fraction] 42.0 % Normal 39.0-50.0 [facility] Comment on above: Order Comment: No: D o not add to previous draw Performed By: #### 5 06, 38971 #### [facility] [address] [facility] [address] Hemoglobin (Bld) [Mass/Vol] 13.7 g/dL Normal 13.0-17.0 [facility] Comment on above: Order Comment: No: D o not add to previous draw Performed By: #### 5 06, 27880 #### [facility] [address] [facility] [place] [address], [facility] MCH (RBC) [Entitic mass] 31.5 pg Normal 27.0-33.0 [facility] Comment on above: Order Comment: No: D o not add to previous draw Performed By: #### 5 06, 60923 #### [facility] [address] [facility] [place] [address], [facility] MCHC (RBC) [Mass/Vol] 32.6 g/dL Normal 32.0-35.0 [facility] Comment on above: Order Comment: No: D o not add to previous draw Performed By: #### 5 0608, 91003 #### [facility] [address] [place] [address], [facility] MCV (RBC) [Entitic vol] 96.6 fL Normal 82.0-98.0 [facility] Comment on above: Order Comment: No: D o not add to previous draw Performed By: #### 5 06, 62979 #### [facility] [address] [place] [address], [facility] Nucleated RBC/100 WBC (Bld) [Ratio] 0 % Normal 0-0 [facility] Comment on above: Order Comment: No: D o not add to previous draw Performed By: #### 5 607, 12875 #### [facility] [address] [place] [id number], [facility] PLAT CNT 298 10*3/uL Normal 150-400 [facility] Comment on above: Order Comment: No: D o not add to previous draw Performed By: #### 5 06, 96529 #### [facility] [address] [place] [address], [facility] RBC (Bld) [#/Vol] 4.35 10*6/uL Normal 4.20-5.70 [facility] Comment on above: Order Comment: No: D o not add to previous draw Performed By: #### 5 607, 79467 #### [facility] [address] [facility] [place] [address], [facility] WBC (Bld) [#/Vol] 10.30 10*3/uL Normal 4.00-10.60 [facility] Comment on above: Order Comment: No: D o not add to previous draw Performed By: #### 5 06, 30434 #### [facility] [address] [place] [address], [facility] MAGNESIUM BLOODon 11-02-2021 Magnesium [Mass/Vol] 2.0 mg/dL Normal 1.9-2.7 [facility] Comment on above: Order Comment: No: D o not add to previous draw Performed By: #### 5 06, 15383 #### [facility] [address] [place] [id number], [facility] POC GLUCOSE LABon 11-02-2021 Glucose [Mass/Vol] 296 mg/dL High 70-100 [facility] Comment on above: Performed By: #### 5 7307, 73240 #### [facility] [address] [facility] [place] [address], [facility] Glucose [Mass/Vol] 262 mg/dL High 70-100 [facility] Comment on above: Performed By: #### 5 7307, 93189 #### [facility] [address] [place] [address], [facility] PORTABLE CHEST 1 VIEWon 10-17 PORTABLE CHEST 1 VIEW [facility] Department of Radiology [address] [place] [address] Patient Name: RICHARD BOYKIN : 1940 Sex: M Age: Race: NA Pt. Location: [address] [place] [address] Patient Status: I Ordered Date: 11/02/2021 12:05:00 [...] effusions. Electronically signed: Guilherme Abarca. Transcribed by: [email or web address], User Resident: Electronically Signed by: GUILHERME ABARCA @ 11/02/2021 12:49 PM Normal [facility] Comment on above: Order Comment: Check Line Position, right arm picc *ANAEROBIC CULTUREon 022 *ANAEROBIC CULTURE Clinical Report: (D) Specimen: FLUID Collected: 11/01/2021 15:30 Status: Final Last Updated: 11/06/2021 07:46 (1) RT SC JOINT CULT RES (Final) No Anaerobes Isolated 5 Days Normal [facility] Comment on above: Order Comment: Check Line Position, right arm picc Performed By: #### 3 0312 ####[facility] *ANAEROBIC CULTURE Clinical Report: (D) Specimen: TISSUE Collected: 11/01/2021 15:10 Status: Final Last Updated: 11/06/2021 07:46 (1) RT SC JOINT CULT RES (Final) No Anaerobes Isolated 5 Days Normal [facility] Comment on above: Order Comment: Check Line Position, right arm picc Performed By: #### 3 0312 ####[facility] [place] [address], [facility] *BODY FLUID CULTUREon 2021 *BODY FLUID CULTURE Clinical Report: (D) Specimen: FLUID Collected: 11/01/2021 15:30 Status: Final Last Updated: 11/06/2021 06:31 (1) RT SC JOINT GRAM (Final) Quantity Not Sufficient CULT RES (Final) No Growth Day 5 Normal [facility] Comment on above: Order Comment: RT SC JOINT Performed By: #### 5 0608, 09551 #### [address] *FUNGAL CULTUREon 11-01-2021 *FUNGAL CULTURE Clinical Report: (D) Specimen: TISSUE Collected: 11/01/2021 15:10 Status: Final Last Updated: 12/03/2021 07:55 (1) RT SC JOINT FS (Final) No Yeast or Fungal Elements Seen CULT RES (Final) Culture negative for fungus Normal [facility] Comment on above: Order Comment: Check Line Position, right arm picc Performed By: #### 3 0323 ####[address] *TISSUE CULTUREon 11-01-2021 *TISSUE CULTURE Clinical Report: (D) Specimen: TISSUE Collected: 11/01/2021 15:10 Status: Final Last Updated: 11/06/2021 06:37 (1) RT SC JOINT GRAM (Final) Moderate Polys No Bacteria Seen CULT RES (Final) No Growth Day 5 Normal [facility] Comment on above: Order Comment: Check Line Position, right arm picc Performed By: #### 3 0338 ####[address] BIOPSY ARM/WRIST SOFT TIS KIMBERLEY RIGHTon 11-01-2021 CT BIOPSY ARM/WRIST SOFT TISSUE RIGHT [facility] Department of Radiology [address] [place] [id number] Patient Name: RICHARD BOYKIN : 1940 Sex: M Age: Race: NA Pt. Location: [address] [place] [address] Patient Status: D Ordered Date: 11/01/2021 8:00:00 [...] risks are acceptable. Consent was obtained. Timeout: Spencer protocol timeout verification performed. MEDICATIONS: 1 mg [...] report. Electronically signed: Tara Hall. 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 Will order aspiraton of the proximal RIGHT sternoclavicular joint seperately POC GLUCOSE LABon 11-01-2021 Glucose [Mass/Vol] 326 mg/dL High 70-100 [facility] Comment on above: Performed By: #### 5 7390, 90438 #### [facility] [address] [facility] [place] [address], [facility] Glucose [Mass/Vol] 245 mg/dL High 70-100 [facility] Comment on above: Performed By: #### 5 7307, 26260 #### [facility] [address] [place] [address], [facility] Glucose [Mass/Vol] 299 mg/dL High 70-100 [facility] Comment on above: Performed By: #### 5 7307, 97589 #### [facility] [address] [facility] [place] [address], [facility] Glucose [Mass/Vol] 227 mg/dL High 70-100 [facility] Comment on above: Performed By: #### 5 7307, 84591 #### [facility] [address] [facility] [place] [address], [facility] POC SARS COV2 IDon 2 SARS-CoV-2 (COVID-19) RNA KIKO+probe Ql (Unsp spec) Negative Normal NEGATIVE [facility] Comment on above: Result Comment: ID [...] of Accreditation. Performed By: #### 5 0608, 39653 #### [facility] [address] [facility] [place] [address], [facility] POC GLUCOSE LABon 10-31-2021 Glucose [Mass/Vol] 236 mg/dL High 70-100 [facility] Comment on above: Performed By: #### 5 7307, 86862 #### [facility] [address] [facility] [place] [address], [place] Glucose [Mass/Vol] 274 mg/dL High 70-100 [facility] Comment on above: Performed By: #### 5 7307, 60319 #### [facility] [address] [place] [address], [facility] Glucose [Mass/Vol] 317 mg/dL High 70-100 [facility] Comment on above: Performed By: #### 5 7307, 12031 #### [facility] [address] [facility] [place] [address], [facility] Glucose [Mass/Vol] 225 mg/dL High 70-100 [facility] Comment on above: Performed By: #### 5 7307, 46941 #### [facility] [address] *BLOOD CULTUREon 10-30-2021 *BLOOD CULTURE Clinical Report: (D) Specimen: BLOOD CULTURE Collected: 10/29/2021 23:08 Status: Final Last Updated: 11/04/2021 08:31 CULT RES (Final) No Growth Day 5 Normal [facility] Comment on above: Performed By: #### 5 7307, 35851 #### [facility] [address] APTTon 10-30-2021 aPTT Coag (Bld) [Time] 51.2 s High 25.0-35.0 [facility] Comment on above: Order Comment: No: [...] THIS PURPOSE. Performed By: #### 5 0608, 02837 #### [facility] [address] [facility]. [address] BASIC METABOLIC PANELon 05- Calcium [Mass/Vol] 8.9 mg/dL Normal 8.6-10.3 [facility] Comment on above: Order Comment: No: D o not add to previous drawMissed Performed By: #### 5 0608, 79403 #### [facility] [address] [place] [address], [place] Chloride [Moles/Vol] 99 mmol/L Normal 98-107 [facility] Comment on above: Order Comment: No: D o not add to previous drawMissed Performed By: #### 5 0608, 64288 #### [facility] [address] [place] [address], [place] CO2 [Moles/Vol] 27 mmol/L Normal 21-31 [facility] Comment on above: Order Comment: No: D o not add to previous drawMissed Performed By: #### 5 0608, 73234 #### [facility] [address] [place] [address], [place] Creatinine [Mass/Vol] 1.08 mg/dL Normal 0.70-1.30 [facility] Comment on above: Order Comment: No: D o not add to previous drawMissed Performed By: #### 5 0608, 15972 #### [facility] [address] [place] [address], [place] GFR/1.73 sq M.predicted among blacks MDRD (S/P/Bld) [Vol rate/Area] mL/min/{1.73_m2} Normal >60 [facility] Comment on above: Order Comment: No: D o not add to previous drawMissed Result Comment: Calc ulation may not be valid for patients over 70 years Performed By: #### 5 0608, 31812 #### [facility] [address] [place] [address], [place] GFR/1.73 sq M.predicted among non-blacks MDRD (S/P/Bld) [Vol rate/Area] mL/min/{1.73_m2} Normal >60 [facility] Comment on above: Order Comment: No: D o not add to previous drawMissed Result Comment: Calc ulation may not be valid for patients over 70 years Performed By: #### 5 0608, 97988 #### [facility] [address] [place] [address], [place] Glucose [Mass/Vol] 257 mg/dL High 70-100 [facility] Comment on above: Order Comment: No: D o not add to previous drawMissed Performed By: #### 5 0608, 55303 #### [facility] [address] [place] [address], [place] Potassium [Moles/Vol] 4.5 mmol/L Normal 3.5-5.1 [facility] Comment on above: Order Comment: No: D o not add to previous drawMissed Performed By: #### 5 0636, 75659 #### [facility] [address] [place] [address], [place] Sodium [Moles/Vol] 135 mmol/L Low 136-145 [facility] Comment on above: Order Comment: No: D o not add to previous drawMissed Performed By: #### 5 0657, 19640 #### [facility] [address] [place] [address], [place] Urea nitrogen [Mass/Vol] 27 mg/dL High 7-25 [facility] Comment on above: Order Comment: No: D o not add to previous drawMissed Performed By: #### 5 0608, 27244 #### [facility] [address] [place] [address], [place] C REACTIVE PROTEINon 022 CRP [Mass/Vol] 278.0 mg/L High 0.0-7.0 The [facility] Comment on above: Order Comment: No: D o not add to previous draw Performed By: #### 5 73, 62834 #### [facility] [address] [place] [id number], [facility] CBC COMPLETE BLOOD COUNTon 0 10-30-2021 Erythrocyte distribution width (RBC) [Ratio] 14.6 % Normal 11.5-15.0 [facility] Comment on above: Order Comment: No: D o not add to previous draw Missed Performed By: #### 5 06, 64985 #### [facility] [address] [place] [id number], [facility] Hematocrit (Bld) [Volume fraction] 41.4 % Normal 39.0-50.0 [facility] Comment on above: Order Comment: No: D o not add to previous draw Missed Performed By: #### 5 06, 55599 #### [facility] [address] [place] [address], [facility] Hemoglobin (Bld) [Mass/Vol] 13.9 g/dL Normal 13.0-17.0 [facility] Comment on above: Order Comment: No: D o not add to previous draw Missed Performed By: #### 5 06, 48096 #### [facility] [address] [place] [id number], [facility] MCH (RBC) [Entitic mass] 32.0 pg Normal 27.0-33.0 [facility] Comment on above: Order Comment: No: D o not add to previous draw Missed Performed By: #### 5 06, 82223 #### [facility] [address] [place] [address], [facility] MCHC (RBC) [Mass/Vol] 33.6 g/dL Normal 32.0-35.0 [facility] Comment on above: Order Comment: No: D o not add to previous draw Missed Performed By: #### 5 06, 83636 #### [facility] [address] [place] [address], [facility] MCV (RBC) [Entitic vol] 95.2 fL Normal 82.0-98.0 The [facility] Comment on above: Order Comment: No: D o not add to previous draw Missed Performed By: #### 5 0608, 85906 #### [facility] [address] [place] [id number], [place] Nucleated RBC/100 WBC (Bld) [Ratio] 0 % Normal 0-0 The [facility] Comment on above: Order Comment: No: D o not add to previous draw Missed Performed By: #### 5 0608, 76937 #### [facility] [address] [place] [address], [place] PLAT CNT 211 10*3/uL Normal 150-400 The [facility] Comment on above: Order Comment: No: D o not add to previous draw Missed Performed By: #### 5 06, 27354 #### [facility] [address] [place] [id number], [facility] RBC (Bld) [#/Vol] 4.35 10*6/uL Normal 4.20-5.70 The [facility] Comment on above: Order Comment: No: D o not add to previous draw Missed Performed By: #### 5 0608, 73817 #### [facility] [address] [place] [id number], [place] WBC (Bld) [#/Vol] 9.94 10*3/uL Normal 4.00-10.60 The [facility] Comment on above: Order Comment: No: D o not add to previous draw Missed Performed By: #### 5 0608, 30154 #### [facility] [address] [place] [address], [place] LACTATE WITH REFLEXon 2021 Lactate [Moles/Vol] 1.5 mmol/L Normal .5-2.2 The [facility] Comment on above: Order Comment: No: D o not add to previous draw Performed By: #### 3 1414 #### [facility] [address] [place] [address], [place] MAGNESIUM BLOODon 10-30-2021 Magnesium [Mass/Vol] 2.0 mg/dL Normal 1.9-2.7 The [facility] Comment on above: Order Comment: No: D o not add to previous draw Performed By: #### 5 7307, 62789 #### [facility] [address] [place] [address], [place] PHOSPHORUS BLOODon 2 Phosphate [Mass/Vol] 3.0 mg/dL Normal 2.5-5.0 The [facility] Comment on above: Order Comment: No: D o not add to previous draw Performed By: #### 5 73Kimberly, 82270 #### [facility] [address] [place] [address], [place] POC GLUCOSE LABon 10-30-2021 Glucose [Mass/Vol] 355 mg/dL High 70-100 [facility] Comment on above: Performed By: #### 5 73Kimebrly, 52880 #### [facility] [address] [place] [address], [place] Glucose [Mass/Vol] 318 mg/dL High 70-100 [facility] Comment on above: Performed By: #### 5 7307, 64866 #### [facility] [address] [place] [address], [place] Glucose [Mass/Vol] 244 mg/dL High 70-100 [facility] Comment on above: Performed By: #### 5 7307, 25428 #### [facility] [address] [place] [address], [place] Glucose [Mass/Vol] 294 mg/dL High 70-100 The [facility] Comment on above: Performed By: #### 5 7307, 50363 #### [facility] [address] [place] [address], [place] PROTHROMBIN TIMEon 2 INR Coag (PPP) [Relative time] 1.09 {INR} Normal 0.91-1.16 The [facility] Comment on above: Order Comment: No: [...] CHEST 1995;108:231S-246S. Performed By: #### 5 0608, 96782 #### [facility] [address] PT Coag (PPP) [Time] 14.1 s Normal 12.3-14.8 The [facility] Comment on above: Order Comment: No: D o not add to previous drawMissed Result Comment: ALL RESULTS MUST BE INTERPRETED WITH RESPECT TO BLOOD DRAWING ARTIFACT OR DILUTION ERROR OF ANTICOAGULANT AT THE TIME OF SAMPLING. Performed By: #### 5 0608, 43092 #### [facility] [address] SEDIMENTATION RATEon 022 SED RATE 43 mm/hr High 0-10 The [facility] Comment on above: Performed By: #### 5 0608, 57542 #### [facility] [address] [place] [address], [facility] *BLOOD CULTUREon 10-29-2021 *BLOOD CULTURE Clinical Report: (D) Specimen: BLOOD CULTURE Collected: 10/29/2021 21:05 Status: Final Last Updated: 11/04/2021 08:31 (1) LH 2051 CULT RES (Final) No Growth Day 5 Normal [facility] Comment on above: Order Comment: No: D o not add to previous draw Performed By: #### 5 7307, 40290 #### [facility] [address] *BLOOD CULTURE Clinical Report: (D) Specimen: BLOOD CULTURE Collected: 10/29/2021 21:05 Status: Final Last Updated: 11/04/2021 08:31 (1) RH 2099 CULT RES (Final) No Growth Day 5 Normal [facility] Comment on above: Order Comment: Check Line Position, right arm picc Performed By: #### 3 0313 ####[facility] APTTon 10-29-2021 aPTT Coag (Bld) [Time] 47.5 s High 25.0-35.0 [facility] Comment on above: Order Comment: No: D [...] THIS PURPOSE. Performed By: #### 5 7307, 65539 #### [facility] [address] BASIC METABOLIC PANELon 10-17 Calcium [Mass/Vol] 8.7 mg/dL Normal 8.6-10.3 [facility] Comment on above: Order Comment: No: D o not add to previous draw Performed By: #### 1 0070, 76496, 52865, 07020 #### [facility] [address] [place] [address], [facility] Chloride [Moles/Vol] 100 mmol/L Normal 98-107 The [facility] Comment on above: Order Comment: No: D o not add to previous draw Performed By: #### 1 0070, 08953, 59103, 11804 #### [facility] [address] [place] [address], [place] CO2 [Moles/Vol] 25 mmol/L Normal 21-31 The [facility] Comment on above: Order Comment: No: D o not add to previous draw Performed By: #### 1 0070, 58690, 96305, 73388 #### [facility] [address] [place] [address], [facility] Creatinine [Mass/Vol] 1.14 mg/dL Normal 0.70-1.30 The [facility] Comment on above: Order Comment: No: D o not add to previous draw Performed By: #### 1 0070, 70379, 96528, 74434 #### [facility] [address] [place] [address], [place] GFR/1.73 sq M.predicted among blacks MDRD (S/P/Bld) [Vol rate/Area] mL/min/{1.73_m2} Normal >60 The [facility] Comment on above: Order Comment: No: D o not add to previous draw Result Comment: Calc ulation may not be valid for patients over 70 years Performed By: #### 1 0070, 05037, 21548, 85210 #### [facility] [address] [place] [address], [place] GFR/1.73 sq M.predicted among non-blacks MDRD (S/P/Bld) [Vol rate/Area] mL/min/{1.73_m2} Normal >60 The [facility] Comment on above: Order Comment: No: D o not add to previous draw Result Comment: Calc ulation may not be valid for patients over 70 years Performed By: #### 1 0070, 30460, 11991, 02332 #### [facility] [address] [place] [address], [facility] Glucose [Mass/Vol] 261 mg/dL High 70-100 The [facility] Comment on above: Order Comment: No: D o not add to previous draw Performed By: #### 1 0070, 61428, 15362, 80329 #### [facility] [address] [place] [address], [facility] Potassium [Moles/Vol] 4.4 mmol/L Normal 3.5-5.1 The [facility] Comment on above: Order Comment: No: D o not add to previous draw Performed By: #### 1 0070, 67322, 04899, 79295 #### [facility] [address] [place] [address], [facility] Sodium [Moles/Vol] 134 mmol/L Low 136-145 The [facility] Comment on above: Order Comment: No: D o not add to previous draw Performed By: #### 1 0070, 09811, 34399, 42131 #### [facility] [address] [place] [address], [facility] Urea nitrogen [Mass/Vol] 30 mg/dL High 7-25 The [facility] Comment on above: Order Comment: No: D o not add to previous draw Performed By: #### 1 0070, 54222, 26365, 56301 #### [facility] [address] [place] [address], [place] LIVER BATTERYon 10-29-2021 Albumin [Mass/Vol] 3.0 g/dL Low 3.5-5.7 The [facility] Comment on above: Order Comment: No: D o not add to previous draw Missed twice. Rhiannon Riojas notified. Performed By: #### 1 0070, 02484, 42648, 61303 #### [facility] [address] [place] [address], [place] ALKALINE PHOSPH 159 IU/L High 34-104 [facility] Comment on above: Order Comment: No: D o not add to previous draw Missed twice. Rhiannon Riojas notified. Performed By: #### 1 0070, 56818, 80447, 38839 #### [facility] [address] [place] [address], [place] ALT [Catalytic activity/Vol] 25 U/L Normal 7-52 [facility] Comment on above: Order Comment: No: D o not add to previous draw Missed twice. Rhiannon Riojas notified. Performed By: #### 1 0070, 24384, 06823, 16482 #### [facility] [address] [place] [address], [facility] AST [Catalytic activity/Vol] 40 U/L High 13-39 [facility] Comment on above: Order Comment: No: D o not add to previous draw Missed twice. Rhiannon Riojas notified. Performed By: #### 1 0070, 62927, 22889, 98644 #### [facility] [address] [place] [address], [place] Bilirubin [Mass/Vol] 0.8 mg/dL Normal 0.3-1.0 [facility] Comment on above: Order Comment: No: D o not add to previous draw Missed twice. Rhiannon Riojas notified. Performed By: #### 1 0070, 11456, 69631, 28486 #### [facility] [address] [place] [address], [place] Bilirubin.direct [Mass/Vol] 0.1 mg/dL Normal 0.0-0.2 [facility] Comment on above: Order Comment: No: D o not add to previous draw Missed twice. Rhiannon Riojas notified. Performed By: #### 1 0070, 67632, 90081, 15056 #### [facility] [address] [place] [address], [place] Protein [Mass/Vol] 6.7 g/dL Normal 6.0-8.3 [facility] Comment on above: Order Comment: No: D o not add to previous draw Missed twice. Rhiannon Riojas notified. Performed By: #### 1 0070, 60076, 85531, 67442 #### [facility] [address] [place] [address], [facility] MAGNESIUM BLOODon 10-29-2021 Magnesium [Mass/Vol] 2.1 mg/dL Normal 1.9-2.7 The [facility] Comment on above: Order Comment: No: D o not add to previous draw Performed By: #### 1 0070, 56513, 18321, 24549 #### [facility] [address] [place] [address], [facility] PHOSPHORUS BLOODon 2 Phosphate [Mass/Vol] 2.7 mg/dL Normal 2.5-5.0 [facility] Comment on above: Order Comment: No: D o not add to previous draw Performed By: #### 1 0070, 00020, 86614, 10060 #### [facility] [address] [place] [address], [facility] POC GLUCOSE LABon 10-29-2021 Glucose [Mass/Vol] 262 mg/dL High 70-100 The [facility] Comment on above: Performed By: #### 5 7307, 98574 #### [facility] [address] [facility] [place] [address], [facility] PROTHROMBIN TIMEon 2 INR Coag (PPP) [Relative time] 1.05 {INR} Normal 0.91-1.16 [facility] Comment on above: Order Comment: No: [...] CHEST 1995;108:231S-246S. Performed By: #### 5 7307, 13295 #### [facility] [address] [facility]. [address] PT Coag (PPP) [Time] 13.7 s Normal 12.3-14.8 [facility] Comment on above: Order Comment: No: D o not add to previous draw Result Comment: ALL RESULTS MUST BE INTERPRETED WITH RESPECT TO BLOOD DRAWING ARTIFACT OR DILUTION ERROR OF ANTICOAGULANT AT THE TIME OF SAMPLING. Performed By: #### 5 7307, 94519 #### [facility] [address] [facility] [address] XR knee RT 2Von 03-11-2021 XR knee RT 2V [facility] [place] [address] XRay Report Signed Patient: Richard Boykin MR#: [id number] : 1940 Acct:[id number] Age/Sex: 80 / M ADM Date: 03/11/21 Loc: [facility] Room: Type: [facility] Attending Dr: Godfrey Gomez MD [...] Jama Callejas M.D.03/11/2021 1:29 PM Dictation Location: [place] [address] Transcribed By: [facility] 03/11/21 1329 Dictated By: Jama Callejas II, MD 03/11/21 1328 Signed By: 03/11/21 1329 [facility] XR knee RT 2V [facility] [employer] Other XR knee RT 2V [facility] Main [facility] [employer] Other XR knee RT 2V [address] [place] [address] [employer] Other XR knee RT 2V [address] [employer] Other XR knee RT 2V XRay Report [facility] [employer] Other XR knee RT 2V Signed [employer] Other XR knee RT 2V Patient: Richard Boykin MR#: [id number] [place] [employer] Other XR knee RT 2V : 1940 Acct:[id number] [place] [employer] Other XR knee RT 2V Age/Sex: 80 / M ADM Date: 03/11/21 [employer] Other XR knee RT 2V Loc: [facility] Room: Type: [facility] [employer] Other XR knee RT 2V Attending Dr: Godfrey Gomez MD [employer] Other XR knee RT 2V Ordering Provider: Godfrey Gomez MD [employer] Other XR knee RT 2V Date of Service: 03/11/21 [employer] Other XR knee RT 2V XR/XR knee RT 2V: Arthritis of right knee [employer] Other XR knee RT 2V Copies to: Godfrey Gomez MD [employer] Other XR knee RT 2V XR knee RT 2V 03/11/2021 7:52 AM [employer] Other XR knee RT 2V SIGNS AND SYMPTOMS: Status post total right knee arthroplasty placement, follow-up [employer] Other XR knee RT 2V PROTOCOL: Frontal and lateral graphs of the right knee [employer] Other XR knee RT 2V COMPARISON: 10/08/2020 [employer] Other XR knee RT 2V FINDINGS: [employer] Other XR knee RT 2V There is total right knee arthroplasty hardware without hardware complication or malalignment. [employer] Other XR knee RT 2V There is no significant soft tissue swelling. No evidence of fracture. Vascular calcifications are [employer] Other XR knee RT 2V present posteriorly. N [employer] Other XR knee RT 2V XR/XR knee RT 2V [employer] Other XR knee RT 2V IMPRESSION: [employer] Other XR knee RT 2V Unchanged total right knee arthroplasty hardware. No fracture or hardware complication. [employer] Other XR knee RT 2V Impression dictated by: Jama Callejas M.D.03/11/2021 1:29 PM [employer] Other XR knee RT 2V Dictation Location: [place] [address] [employer] Other XR knee RT 2V Transcribed By: FLAVIA 03/11/21 1329 [employer] Other XR knee RT 2V Dictated By: Jama Callejas II, MD 03/11/21 1326 [place] [employer] Other XR knee RT 2V Signed By: [employer] Other XR knee RT 2V 03/11/21 1329 [facility] [employer] Other Vital Signs Date Time Vital Sign Value Performing Clinician Facility 10-23-2024 15:46-0400 Body height 180.34 cm [facility] 10-23-2024 15:46-0400 Body mass index (BMI) [Ratio] 32.1 kg/m2 [facility] 10-23-2024 15:46-0400 Body weight 104.38 kg [facility] 10-23-2024 15:46-0400 Diastolic blood pressure 73 mm[Hg] [facility] 10-23-2024 15:46-0400 Heart rate 47 /min [facility] 10-23-2024 15:46-0400 Respiratory rate 16 /min [facility] 10-23-2024 15:46-0400 SaO2% (BldA) [Mass fraction] 99 % [facility] 10-23-2024 15:46-0400 Systolic blood pressure 108 mm[Hg] [facility] 10-10-2024 09:00-0400 Body height 180.3 cm Willian Shaikh MD Work Phone: [facility] 10-10-2024 09:00-0400 Body mass index (BMI) [Ratio] 31.38 kg/m2 Willian Shaikh MD Work Phone: [facility] 10-10-2024 09:00-0400 Body temperature 98.1 [degF] Willian Shaikh MD Work Phone: [facility] 10-10-2024 09:00-0400 Body weight 102.06 kg Willian Shaikh MD Work Phone: [facility] 10-10-2024 09:00-0400 Diastolic blood pressure 68 mm[Hg] Willian Shaikh MD Work Phone: [facility] 10-10-2024 09:00-0400 Heart rate 68 /min Willian Shaikh MD Work Phone: [facility] 10-10-2024 09:00-0400 SaO2% (BldA) [Mass fraction] 97 % Willian Shaikh MD Work Phone: [facility] 10-10-2024 09:00-0400 Systolic blood pressure 124 mm[Hg] Willian Shaikh MD Work Phone: [facility] 12-02-2021 11:15-0400 Body height 177.8 cm Teofilo Person Other [employer] Other Encounters Encounter Date Encounter Type Care Provider Facility Start: 02-06-2025 ambulatory [facility] Facility: [facility] Start: 01-16-2025 End: 01-16-2025 ambulatory [facility] Start: 01-02-2025 End: 01-02-2025 ambulatory [facility] Facility: [facility] Start: 01-02-2025 ambulatory [facility] Facility: [facility] Start: 12-04-2024 End: 12-04-2024 ambulatory [facility]: [facility] Start: 10-28-2024 End: 10-28-2024 ambulatory [facility] Start: 10-23-2024 End: 10-23-2024 ambulatory [facility] Work Phone: Start: 10-23-2024 End: 10-23-2024 Patient encounter procedure [facility] Physician [facility] [place] Work Phone: Start: 10-18-2024 End: 10-18-2024 ambulatory [facility] Facility:[facility] Start: 10-10-2024 End: 10-10-2024 Office outpatient new 45 minutes Willian Shaikh MD Work Phone: [facility] Comment on above: 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 ([facility]) (Primary Dx); Iliac artery stenosis, right; Atherosclerosis of aorta Start: 10-08-2024 ambulatory Rigo Bodie Facility: [facility] Start: 08-07-2024 End: 08-07-2024 ambulatory Marj Sorensen Facility:[facility] Start: 08-07-2024 ambulatory Marj Dugan Edu Facility: [facility] Start: 05-28-2024 ambulatory Marj Sorensen Facility: [facility] Start: 05-21-2024 End: 05-21-2024 ambulatory Marj Sorensen Facility:[facility] Cli lauren Start: 04-18-2024 End: 04-18-2024 ambulatory Marj Sorensen Facility:[facility] Start: 04-18-2024 End: 04-18-2024 ambulatory Marj Sorensen Facility:[facility] Start: 04-04-2024 End: 04-04-2024 ambulatory Marj Sorensen Facility:[facility] Start: 04-04-2024 End: 04-04-2024 ambulatory Marj Sorensen Facility:[facility] Start: 04-01-2024 End: 04-01-2024 ambulatory SWEETIE STEWARTCLINT [facility] Start: 02-28-2024 End: 02-28-2024 ambulatory Marj Sorensen [facility]: [facility] Start: 02-06-2024 End: 04-16-2024 ambulatory Marj Sorensen Facility:[facility] Start: 02-27-2023 End: 02-27-2023 ambulatory UNKNOWN PROVIDER Facility:[facility] Start: 10-24-2022 End: 10-25-[address] DOCTOR MALCOLM Facility:[facility] Start: 03-26-2022 End: 03-27-[address] DOCTOR MALCOLM Facility:[facility] Start: 01-19-2022 End: 01-19-2022 Patient encounter procedure MD Marj Sorensen Work Phone: [facility] Start: 12-21-2021 End: 12-22-[address] SWEETIE TOMLINSON Facility:[facility] Start: 12-02-2021 End: 12-02-2021 ambulatory Teofilo Person Other [employer] Other Start: 12-02-2021 Office outpatient visit [address] [facility] Start: 12-02-2021 End: 12-02-2021 Patient encounter procedure MD Marj Sorensen Work Phone: [facility] Start: 10-29-2021 End: 11-02-2021 Evaluation and management of inpatient MARJ SORENSEN Facility:[facility] Start: 10-29-2021 Telephone encounter Aly koo MD Work Phone: [facility] Start: 10-28-2021 End: 10-28-2021 ambulatory Godfrey Gomez Other [employer] Other Start: 10-28-2021 Telephone encounter Godfrey Gomez [facility] Start: 03-11-2021 Office outpatient visit [address] 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 (CMS-HCC) Iliac artery stenosis, right (CMS-HCC) Atherosclerosis of aorta (CMS-HCC) Expected: 04/11/2025 (Approximate), Expires: 10/10/2025 1jiajie Work Phone: Comment on above: Expected: 04/11/2025 (Approximate), Expires: 10/10/2025 Start: 02-17-2025 Influenza vaccination Influenza Vacc ine [employer] Start: 10-10-2024 End: 10-10-2025 US.doppler Lower extremity artery - right Vas art duplex lwr single right Vascular Ultrasound Routine 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 (CMS-HCC) Iliac artery stenosis, right (CMS-HCC) Expected: 10/10/2024, Expires: 10/10/2025 [facility] Comment on above: Expected: 10/10/2024 , Expires: 10/10/2025 Start: 02-18-2024 COVID-19 Vaccine ( season) COVID-19 Vaccine ( season) [facility] Start: 10-29-2021 Welcome to Medicare Visit (G0402) Welcome to Medicare Visit (G0402) [facility] Start: 06-29-2011 Administration of varicella zoster vaccine Zoster (Shingles) Vaccine (2 of 3) [facility] Start: 2006 Fall Risk Screening Fall Risk Screen ing [facility] Start: 2006 Pneumococcal vaccination Pneum ococcal Vaccine(s) (65+ yrs) (1 - PCV) [facility] Start: 1991 Shingles (RZV) Vacci ne (1 of 2) Shingles (RZV) Vaccine (1 of 2) [facility] Start: 1959 Tetanus + diphtheria + acellular pertussis vaccine (product) [facility] Start: 1953 Depression Screening Depression Scre ening [facility] Start: 1946 COVID-19 Vaccine (1) COVID-19 Vaccin e (1) [facility] Renal function 2000 panel - Serum or Plasma [facility] Immunizations Immunization Date Immunization Notes Care Provider Fa cility 04-04-2024 influenza virus vaccine, unspecified formulation Willian Shaikh MD Work Phone: [facility] 02-27-2023 tetanus toxoid, redu piotr diphtheria toxoid, and acellular pertussis vaccine, adsorbed Willian Shaikh MD Work Phone: [facility] 05-04-2011 zoster vaccine, unspecified formulation Willian Shaikh MD Work Phone: [facility] Payers Date Payer Category Payer Managed Care Other (unspecified) [facility] [id number] 2021 Unknown AARP AARP [id number] 2021-Present [address] [place] [address] [id number] 1997 Medicare [id number]. 1.13.56.2.7 .[id number] 1959 Medicare [id number] 1959 Unknown [id number] 1940 Unknown [id number] 2.16.840.1.054339.3.579.2. 647 1941 Unknown [id number] 2.16.840.1.191837.3.579.2. 593 1941 Unknown [id number] 2.16.840.1.058066.3.579.2. 593 1941 Unknown [id number] 2.16.840.1.216012.3.579.2. 593 1941 Unknown [id number] 2.16.840.1.936936.3.579.2. 732 1941 Unknown [id number] 2.16.840.1.879744.3.579.2. 718 1941 Unknown [id number] 2.16.840.1.875245.3.579.2. 8 1941 Unknown [id number] 2.16.840.1.890646.3.579.2. 1941 Unknown [id number] 2.16.840.1.232798.3.579.2. 1941 Unknown [id number] 2.16.840.1.694814.3.579.2. 1941 Unknown [id number] 2.16.840.1.828587.3.579.2. 1941 Unknown [id number] 2.16.840.1.476460.3.579.2. 1941 Unknown [id number] 2.16.840.1.150364.3.579.2. 1941 Unknown [id number] 2.16.840.1.974878.3.579.2 1941 Unknown [id number] 2.16.840.1.986197.3.579.2. 1941 Unknown [id number] 2.16.840.1.988658.3.579.2. 1941 Unknown [id number] 2.16.840.1.004230.3.579.2 1941 Unknown [id number] 2.16.840.1.921801.3.579.2 1941 Unknown [id number] 2.16.840.1.050564.3.579.2. 1941 Unknown [id number] 2.16.840.1.675393.3.579.2. 1941 Unknown [id number] 2.16.840.1.680146.3.579.2. 1941 Unknown [id number] 2.16.840.1.066756.3.579.2. 1941 Unknown [id number] 2.16.840.1.882548.3.579.2. 718 1941 Unknown [id number] 2.16.840.1.911877.3.579.2. 718 1941 Unknown [id number] 2.16.840.1.248949.3.579.2. 8 Self-pay Self Pay [id number] Social History Date Type Detail Facility Tobacco smoking status [facility] Tobacco smoking consumption unknown [facility] Work Phone: Start: 1940 Sex Assigned At Not on file [facility] Start: 10-10-2024 Sex Assigned At N [facility] [employer] Other Start: 02-27-2020 End: 10-23-2024 Tobacco smoking status [facility] Never smoked tobacco (finding) [facility] Start: 1940 Sex Assigned At Male [facility] [place] Start: 10-10-2024 Tobacco smoking status [facility] Ex-smoker [facility] End: 06-19-1989 History of tobacco use Current smoker [facility] History of tobacco use Cigarette Smoker [facility] End: 06-19-1989 History of tobacco use Cigar Smoker [facility] Start: 10-10-2024 Tobacco use and exposure Smokeless tobacco non-user [facility] Start: 10-10-2024 Alcoholic beverage intake Ex-drinker (finding) [facility] Start: 10-10-2024 History of Social function [facility] Within the past 12 months we worried whether our food would run out before we got money to buy more. Never True [facility] Start: 11-03-2021 End: 10-23-2024 Sex Male (finding) [facility] Medical Equipment Procedure Code Equipment Code Equipment Origin al Text Equipment Identifier Dates Arthroplasty, knee, total, minimally invasive Orthopaedic cement, non-medicated [id number] FDA Start: 02-27-2020 Arthroplasty, knee, total, minimally invasive Uncoated knee femur prosthesis ()[id number] FDA Start: 02-27-2020 Arthroplasty, knee, total, minimally invasive Tibial insert ()[id number] FDA Start: 02-27-2020 Arthroplasty, knee, total, minimally invasive Polyethylene patella prosthesis ()[id number] FDA Start: 02-27-2020 Arthroplasty, knee, total, minimally invasive Knee stem ()[id number] FDA Start: 02-27-2020 Arthroplasty, knee, total, minimally invasive Uncoated knee tibia prosthesis, metallic ()[id number] FDA Start: 02-27-2020 Clinical Notes 03-11-2021 to 01-08-2025 Note Date & Type Note Facility 01-08-2025 Note Entered by Amy Strickland LPN on January 08, 2025 07:13:10 EDT From: Amy Strickland LPN To: [facility] Sent: 01/08/2025 07:13:10 EDT Subject: Medication Management Documented Complete:montelukast (montelukast 10 mg oral tablet) Signed by Amy Strickland LPN 01/08/2025 07:13:00 EDT Submitted: Complete:apixaban (Eliquis 5 mg oral tablet) Signed by Amy Strickland LPN 01/08/2025 07:13:00 EDT Submitted: Complete:metoprolol (Metoprolol Tartrate 25 mg oral tablet) Signed by Amy Strickland LPN 01/08/2025 07:13:00 EDT Submitted: Complete:allopurinol (allopurinol 300 mg oral tablet) Signed by Amy Strickland LPN 01/08/2025 07:13:00 EDT Approved with modifications: montelukast (Montelukast Sodium 10 MG Oral Tablet) TAKE 1 TABLET BY MOUTH ONCE DAILY Qty: 90 tab(s) Days Supply: 90 Refills: 3 Substitutions Allowed Route To Pharmacy - [facility] Note from Pharmacy: Please send a replace/new response with 90-Day Supply if appropriate to maximize member benefit. Requesting 1 year supply. Signed by Amy Strickland LPN Approved with modifications: metoprolol (Metoprolol Tartrate 25 MG Oral Tablet) TAKE 1 TABLET BY MOUTH TWICE DAILY Qty: 180 tab(s) Days Supply: 90 Refills: 3 Substitutions Allowed Route To Pharmacy - [facility] Note from Pharmacy: Please send a replace/new response with 90-Day Supply if appropriate to maximize member benefit. Requesting 1 year supply. Signed by Amy Strickland LPN Approved with modifications: apixaban (Eliquis 5 MG Oral Tablet) TAKE ONE-HALF TABLET BY MOUTH TWICE DAILY Qty: 90 tab(s) Days Supply: 90 Refills: 3 Substitutions Allowed Route To Pharmacy - [facility] Note from Pharmacy: Please send a replace/new response with 90-Day Supply if appropriate to maximize member benefit. Requesting 1 year supply. Signed by Amy Strickland LPN Approved with modifications: Misc Rx Supply (Atorvastatin Calcium 80 MG Oral Tablet) TAKE 1 TABLET BY MOUTH DAILY Qty: 90 tab(s) Days Supply: 90 Refills: 3 Substitutions Allowed Route To Pharmacy - [facility] Note from Pharmacy: Please send a replace/new response with 90-Day Supply if appropriate to maximize member benefit. Requesting 1 year supply. Signed by Amy Strickland LPN Approved with modifications: allopurinol (Allopurinol 300 MG Oral Tablet) TAKE 1 TABLET BY MOUTH DAILY Qty: 90 tab(s) Days Supply: 90 Refills: 3 Substitutions Allowed Route To Pharmacy - [facility] Note from Pharmacy: Please send a replace/new response with 90-Day Supply if appropriate to maximize member benefit. Requesting 1 year supply. Signed by Amy Strickland LPN ---- From: [facility] To: Marj Sorensen MD Sent: January 07, 2025 10:15:40 PM CDT Subject: Medication Management Due: January 08, 2025 12:16:40 PM CDT On Hold Pending [facility] Drug: montelukast (montelukast 10 mg oral tablet), TAKE 1 TABLET BY MOUTH ONCE DAILY Quantity: 90 tab(s) Days Supply: 90 Refills: 3 Substitutions Allowed Notes from Pharmacy: - First Attempt Ref: [id number] Dispensed Drug: montelukast (montelukast 10 mg oral tablet), TAKE 1 TABLET BY MOUTH ONCE DAILY Quantity: 90 tab(s) Days Supply: 90 Refills: 3 Substitutions Allowed Notes from Pharmacy: Please send a replace/new response with 90-Day Supply if appropriate to maximize member benefit. Requesting 1 year supply. On Hold Pending [facility]: metoprolol (Metoprolol Tartrate 25 mg oral tablet), TAKE 1 TABLET BY MOUTH TWICE DAILY Quantity: 180 tab(s) Days Supply: 90 Refills: 3 Substitutions Allowed Notes from Pharmacy: - First Attempt Ref: [id number] Dispensed Drug: metoprolol (Metoprolol Tartrate 25 mg oral tablet), TAKE 1 TABLET BY MOUTH TWICE DAILY Quantity: 180 tab(s) Days Supply: 90 Refills: 3 Substitutions Allowed Notes from Pharmacy: Please send a replace/new response with 90-Day Supply if appropriate to maximize member benefit. Requesting 1 year supply. On Hold Pending [facility] Drug: apixaban (Eliquis 5 mg oral tablet), TAKE ONE-HALF TABLET BY MOUTH TWICE DAILY Quantity: 90 tab(s) Days Supply: 90 Refills: 3 Substitutions Allowed Notes from Pharmacy: - First Attempt Ref: [id number] Dispensed Drug: apixaban (Eliquis 5 mg oral tablet), TAKE ONE-HALF TABLET BY MOUTH TWICE DAILY Quantity: 90 tab(s) Days Supply: 90 Refills: 3 Substitutions Allowed Notes from Pharmacy: Please send a replace/new response with 90-Day Supply if appropriate to maximize member benefit. Requesting 1 year supply. On Hold Pending [facility]: atorvastatin (atorvastatin 80 mg oral tablet), TAKE 1 TABLET BY MOUTH DAILY Quantity: 90 tab(s) Days Supply: 90 Refills: 3 Substitutions Allowed Notes from Pharmacy: - First Attempt Ref: [id number] Dispensed Drug: Atorvastatin Calcium 80 MG Oral Table (more content not included)... [facility] 10-28-2024 Note [place] [facility] - [facility] Subjective Richard Boykin is a 84 [...] 3 years ago. 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 Recent testing: ECG 10/25/2021: Atrial fibrillation, nonspecific [...] walker to ambulate. He continues to see lumber yard worker and has a nurse juan (more content not included)... [facility] 10-23-2024 Evaluation note Diagnosis Onset Date [...] kidney disease acute October 23, 2024 3:34pm [facility] Work Phone: 1(359) 212-884204-24-2025 Evaluation + Plan note* Assessment & Plan [...] mg atorvastatin 80 mg and low-dose Eliquis. [facility]04-24-2025 Miscellaneous Notes* Assessment & Plan Note - [...] mg and low-dose Eliquis. [facility] encounter[facility] History of Present illness Narrative* Willian Shaikh MD - 10/10/2024 9:00 AM EDT Images from the original note were not included. To: No primary care provider on file. HPI: Richard Boykin is a 84 y.o. male with Nonhealing wound in the right lower extremity and DAVON of 0.4. He was referred to us by his lumber yard worker and wound clinic. This wound has been [...] mg total) by mouth in the morning. sgupjyfp-nutr-WC-calcium &mins (THERAGRAN-M) 9 mg iron-400 mcg tablet Take 1 tablet by mouth inthe morning. pantoprazole (PROTONIX) 40 mg EC tablet Take 1 tablet (40 mg total) by mouth in the morning. rOPINIRole (REQUIP) 2 mg tablet Take 1 tablet (2 mg total) by mouth nightly. tamsulosin (FLOMAX) 0.4 mg capsule Take 1 capsule (0.4 mg total) by mouth in the morning. RANDY ELIAS U-300 INSULIN 300 unit/mL (1.5 mL) insulin [...] Interpersonal Safety: Unknown (08/10/2023) Received from [facility] [place] [facility] Fear of Current or [...] of right lower extremity with gangrene (CMS-HCC) - Primary Current Assessment & Plan Had [...] ischemia of right lower extremity with gangrene ([facility]-HCC) Willian Shaikh MD, LORRAINE, RPVI, FSVS, FACS [...] you for your understanding. documented [facility] Note[place] [facility] - [facility] Subjective Richard Boykin is a [...] atrial fibrillation (CMS/HCC) Type 2 diabetes mellitus ([facility]/HCC) Diabetes mellitus ([facility]/HCC) Hypertension Peripheral arterial occlusive disease ([facility]/HCC) Peripheral vascular disease ([facility]/HCC) Osteoarthritis Aortic valve stenosis Hyperlipidemia Leg ulcer, left, with unspecified severity ([facility]/HCC) JENARO (acute kidney injury) ([facility]) Allergic rhinitis Cellulitis of toe of right foot Vertigo Fatigue Gastroesophageal reflux disease Heart failure ([facility]/HCC) Idiopathic peripheral neuropathy Immunodeficiency disorder ([facility]/HCC) Morbid obesity ([facility]) Muscle weakness Psoriasis 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 Recent testing: ECG 10/25/2021: Atrial fibrillation, nonspecific [...] walker to ambulate. He continues to see lumber yard worker and has a nurse that comes to [...] 03/25/2022: He is seen (more content not included)...[facility] 03-13-2024 NoteEntered by Yvonne Lin on [...] Notes from Pharmacy: - First Attempt Ref: [id number] Dispensed Drug: hydrochlorothiazide-lisinopril (hydrochlorothiazide-lisinopril 12.5 mg-10 mg oral tablet), TAKE 1 TABLET BY MOUTH DAILY Quantity: 30 tab(s) Days Supply: 30 Refills: 11 Substitutions Allowed Notes from Pharmacy: Requesting 1 year supply [id number] Evaluation note* Encounter Date Diagnosis Assessment Notes [...] discuss treatment if continues to cause issues [employer] Other 05-18-2022 NoteMR#: [id number] I [facility] Pt. Name: Richard Boykin Admitted: 10/29/2021 Discharged: 11/02/2021 Date of : 1940 Physician: Alicia Sweet MD DISCHARGE SUMMARY FINAL DIAGNOSES: 1. Methicillin-susceptible Staphylococcus aureus bacteremia. 2. Probable septic joint infection. 3. Right knee replacement. 4. New onset atrial fibrillation with RVR. 5. Nonobstructive coronary artery disease and peripheral arterial disease. 6. Yzv-zxtjjqe-zzylhrqti diabetes mellitus. 7. Hypertension. HISTORY OF PRESENT [...] remained negative. He had a TTE at [facility] with poor image quality. There were no evidence of secondary source of infection on physical exam. Apparently, his repeat cultures at [facility] on October 24 and October 25, [...] his need for full anticoagulation with the service writer on an outpatient basis. He understands that [...] Sweet MD Date Trans: 11/03/2021 09:12 A/lindsay MARSH_EZE:[id number] cc: Marj Sorensen M.D. [address] [place] [address] [id number] Miscellaneous Notes* Telephone Encounter - Aly Mcclelland MD - 10/29/2021 2:59 PM EDT I was called by BIANCA about patient with septic arthritis and bacteremia requesting transfer for higher level of care. 81 obese, afib, CAD, PAD, hx hip/knee replacement recently moved back from [place]. Presented on 10/24 with R shoulder pain [...] instability. Aly Mcclelland MD documented in this [id number] Evaluation note* Encounter Date Diagnosis Assessment Notes [...] Feb, Restless leg syndrome (ICD-10 - G25.81) [place] [employer] 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 ([facility]-HCC)- Primary Iliac artery stenosis, right Atherosclerosis of shawnee arteries of the extremities, unspecified Atherosclerosis of aorta documented [facility] - Reported* Type Description Date Medical History PVD Medical History psoriatic arthritis Medical History diabetes mallitus Medical History Gout arthrits Medical History hypertension Surgical History Bilateral hip replacement Surgical History cataract Surgical History left total hip revision Surgical History [employer] Other InstructionsNot on filedocumented in this encounter [facility] Summary Purpose Family History No Family History [...] and content) DATE CREATED AUTHOR 12/04/2021 [facility] DATE CREATED AUTHOR AUTHOR'S ORGANIZ ATION 01/31/2022 [facility] DATE CREATED AUTHOR AUTHOR'S ORGANIZ ATION 10/25/2022 [facility] DATE CREATED AUTHOR AUTHOR'S ORGANIZ ATION 02/28/2023 [facility] [facility] DATE CREATED AUTHOR AUTHOR'S ORGANIZ ATION 10/29/[address] [facility] DATE CREATED AUTHOR AUTHOR'S ORGANIZ ATION 02/03/2025 [facility] l REASON FOR VISIT (unrecogniz ed section and content) Reason Comments DO NOT MOVE abn abis-non hea ling wound rt foot-REF BY KATHY DO NOT MOVE abn abis-non healing wound r t foot-REF BY HANNAH WC ABIS & NOTES IN MEDIA Care Teams (unrecognized sec tion and content) Team Status: Inactive Member Role Status Dates Marj Sorensen MD Primary Care Provider Active Teofilo Person MD Attending Provider Active Team Status: Inactive Member Role Status Dates Marj Sorensen MD Primary Care Provider Active Sweetie Tmolinson MD Attending Provider Active Team Status: Active [...] BE BASED ON THE PRIMARY CLINICAL RECORDS. [facility]. provides no warranty or guarantee of the accuracy or completeness of information in this document.
--- NOTE | 2025-02-05 10:50 | XR_ITS ---
[facility] [place] [address] Patient Name: GENNY BOYKIN MRN: [id number] date: 1940 Sex: M Assigned Patient Location: [facility] Current Patient Location: [facility] Accession/Order Number: [id number] Exam Date: 02/05/2025 13:25 Report Date: 02/05/2025 13:36 At the request of: AYALA ORTIZ Procedure: XR foot RT min 3V 3 views right foot plain film with weightbearing COMPARISON:12/11/2024 HISTORY: Left fourth toe infection. No history of amputation ACUTE FINDINGS: Absence of the fourth distal phalanx. Osteolysis of the fourth middle phalanx with residual bone in the base. DEGENERATIVE CHANGE: Extensive first metatarsophalangeal degeneration. Joint space narrowing. Marginal spurring. Extensive midfoot degeneration. Superior spurring. Calcaneal spurring stable chronic bony changes of the third toe. SOFT TISSUE FINDINGS: Fourth toe soft tissue swelling. No subcutaneous air. Atherosclerosis JOINT EFFUSION: None POSTOP CHANGES: None BONE MINERALIZATION: Decreased XR/XR foot RT min 3V IMPRESSION: Osteolysis fourth distal phalanx and partial osteolysis of the fourth middle phalanx consistent with acute osteomyelitis. This is new compared to 12/11/2024 exam. Impression dictated by: Gama Calderón M.D. 02/05/2025 1:36 PM Dictation Location: [place] [address] Electronically authenticated by: [id number] Y Date: 02/05/2025 13:36
== END 2025-02-05 10:34 | disposition home or self-care (01) ==
LOC: RAD 10:36
PROVIDERS: PCP Family Medicine; Visit Provider Physician Assistant
DX: M86.8X8 Other osteomyelitis, other site (principal)
CPT/HCPCS: 73630

== ENCOUNTER 2025-02-05 10:42 | Outpatient (OUT) | payer MEDICARE, SELFPAY ==
--- OUTSIDE RECORDS SUMMARY | 2025-02-05 10:53 | XMS_ITS | CCD ---
Author Organization [facility] Care Team Providers Care [employer] Power[employer] Supervisor Name Role Phone Unavailable Primary Care Provider UnavailMARJ Cooper Primary Care Unavailable MORTON Referring Unavailable JILLIAN HERNADEZ Admitting Unavailable ALICIA SWEET Attending Unavailable Lydia Anderson Unavailable Godfrey Gomez Unavailable Teofilo Person Unavailable MD Marj Sorensen Primary Care Provider [phone] MD Teofilo Person Attending Provider MD Sweetie [...] Attending Unavailable Edu, Marj Dugan Attending Unavailable Deu, Marj Dguan Primary Care Unavailable Edu, Marj Dugan Attending [...] Start: 02-12-2020 Fluticasone Pr opionate 50 mcg/actuation [place],Suspension Active 1 SPRAY INTRANASAL Daily February 12, [...] 12, 2020 12:00am [facility] Glimepiride 4 MG 1 tablet with breakfast or the first main meal of the day Orally Once a day Active hydroCHLOROthiazide 12.5 mg oral tablet (5 sources) Thiazide Diuretic Start: 02-12-2020 take 1 tablet by mouth once daily Hydrochlorothiazide 12.5 mg Tablet Active 12.5 MG PO Daily February 12, 2020 12:00am take 1 capsule by [facility] every twenty-four hours hydroCHLOROthiazide 12.5 MG 1 [...] 2024 3:59pm take 1 capsule by mo [facility] once daily Metoprolol Succinate 25 MG 1 capsule Orally Once a day Active montelukast 10 mg oral tablet (6 sources) Leukotriene Receptor Antagonist Start: 02-27-2020 take 1 tablet by mouth once daily at bedtime Montelukast 10 mg Tablet Active 10 MG PO Daily at bedtime February 27, 2020 12:00am czpdauxk-ixhg-VW-ca lcium &mins (THERAGRAN-M) 9 mg iron-400 mcg tablet (1 source) myhowfxh-dxsz-PW -c alcium &mins (THERAGRAN-M) 9 mg iron-400 mcg tablet Take 1 tablet by mouth in the morning. Active Guiusbyt-Uoa-Eppbu- Vit K-Lycop (Men's 50 Plus Daily Formula) 400-20-370 mcg Tablet (2 sources) Start: 02-12-2020 take 1 tablet by mouth once daily Lxvwkkdd-Rsy-Gpwrd -Vit K-Lycop (Men's 50 Plus Daily Formula) [...] 28, 2020 12:00am October 23, 2024 4:00pm [place] [employer]-[place]-3 Fatty Acids ([place] Oil-1000) 1,000-200 mg Capsule (2 sources) Start: 02-12-2020 End: 10-23-2024 take 1 capsule by mouth once daily [place] [employer]-[place]-3 Fatty Acids ([place] Oil-1000) 1,000-200 mg Capsule Discontinued 1 CAP PO Daily February 12, 2020 12:00am October 23, 2024 4:00pm Start: 02-12-2020 take 1 capsule by mo [facility] once daily [place] [employer]-[place]-3 Fatty Acids ([place] Oil-1000) 1,000-200 mg Capsule Active 1 CAP [...] lower limb ischemia ; Translations: [Atherosclerosis of [place] arteries of extremities with gangrene, right leg] [...] Coding Summaryon 01-23-2025 Coding Summary HTMLBase 64 JjpenlelOMu6wSt+PGhl YWQ+NB8PWDPbT82qmBNt pR0gW8ETSSpEYbycPYVS PMlCXdWcgwOuRB4myZQd ZXJu IC8+IS3cQGVhFyxfwECh k2W7rHV7W69fkf5zSSiu cSM9YQJtIpOtnwaxz2rn rDs0KAmyAsqvOlSv LAPckB23SNK5yH52Fu09 nLQviVKpm6jpdQv4OiMj KQLcGHB2aOqhOUqdg6Pe YLJtJ22aiKEbx2H0 IGNvbGxhcHNlOyBlbXB0 mI4lZBbnbxrvd9uagjxo Hhi4ay15wFJck4I4nBG6 C9FdzbD4GHHttXSo GzpnhJRLwJ5tbmhxu1mg iqttHmChYMKgREn1QAl6 ZTKwlHitXiRcRA38RZA2 KQAcafSvY2OdVZTt mCdgQiE5r6L7Fu2ZV7BH QgdlH7TISJEVPVyxrNR+ MK66pp19S5YfWpqoCan5 WBIjCUU6eIW1wT3p LIDqUTsjk2F2iSX8B9Bz vcUayq2ax0idSWRfHHbu B27heCIsu3K4CRZdvJT4 JPRnpDviNuTyyE20 Oyc+BYHkeAwky9IjHzwi e5tiy3mshKt9HzufJZOn zfRhiTwaXRZ5r3UaRl5v AWXuhDF7nIO2sM7k AqLwIoB6LFrmA165LjGw uKGbAeroP04tL7JviNP+ QPIvVoh0QYJvcOgmNV2y Q8WiQAOnimpwjIHx vSjvCA8jALKwtxlrUWJl aX4wHNKyG3k8DrWmMxC4 FPydM4DqFOClksgvQe43 eU7tSgCyElZ3XLds O4YmaxO8KOJjaYGnMVeg SYI0T89xu8I9SQQlLMEh YGU0nUT5zL1laWryarps bGVmdDsgdmVydGlj UOwqKQazO045TRLrvFdi PkNvZGluZyBEYXRlOiAg MDgvMDcvMjAyNTwvdGQ+ XLAoTQE6ePdcWYVp mEVkTAurBc8voTnzcKpv NU6jMFQbcskbJYZphX0k RCAmbCCdhHqiYH9xKQZg anegm309FcFnDAE1 NFZliREoS5CvzE9oXyBo YCJqLATrZ2OgrXRjZEwh T187XJlcMoV3RCCzaoNz L5LiHJRjsDcvXnW2 d5N9Ns1Hg1FmpgwxP2Gh aRVqTrYsUbmhRGk9C6Np PjwvdHI+JS53DQBfDE73 BVw3LZN0yBzxDVnl KGTpL2QjqB4uDlIpEMDg ZGRkOyc+PHRhYmxlIHdp ZHRoPScxMDAlJyBzdHls ZA8wIb6iLXFrICFb sJsngLIgRbJfy0ivTORf IIksGB0muGluX5JkiAU3 XQXzf6y0Ic43H69dU0Hu dXA+UQSyeZG0nGQ5 sU7tXvHqCaI6GBazA849 XbJyzEPwDlpdq2ezc5ci uLv8YvI9MLXotpHjkMkg WLI5k3RhAz43D31m IHdpZHRoPSIxNSUiIHZh oOfhiw0hgT6yUv3+PGNv gJX2eZJ7lP7xRiYwAfK4 OWbaC641DhLmgLTh Svsta3low8bxuJj8GoCj WIBtiuCotQmnREL9y8Na Pd00N0GtkIjoc2AcDhn1 nl35fGVux1O3pKF7 C1BjKZCdwdexkUXecZcr GU5rTKLevlpnRZDmuF8m NUApH3q5RbOfAiQ6JOvp N6DtcmA7YDIqbTOd BNNwlTEJaI0dxzdtk6eb zjzzLdIwUHWeVOf6ZDj2 RFDvrFwoNhTsLNL9HzT7 RSE5yZOgkJ6cbHmy gigifV4lDqj+XGF9uKSk vMRQMO4hYimuaWE+PHRk XZO0wFxvILdySRXdcO6h NSJuC8u7AkExFdZ7 FSrwO4PrghU7YMDxbZFl GVYffJKYdM4dqvcci6ih mbneDaJsUTYfULi7VQo6 LWFsaWduOiBsZWZ0 PcK4OCP3aXBwdO8sxChz vszfhJ8qDgr+QmlydGgg VGI3HEu6R6DgWpp1UDFk xFxfPD1gaOEcYImf Qf3vnOqfhXuwSF6iSTEc gegiw927RaFri8eiYHMd aRDfSXiaJHE4N94by4U3 HOQgLTSoYKG3eWW4 nA3pwRmxgidqxCGldHtc knLysOdwTQxpXVcqS762 TDUapZsuGzItLMh4Y2Qe Xqa1JKAbkRdoPY3c mGJvJFjeUc3asLafkGfb PH0iVLNuvuued496ArJq l8ccBRQnsXAtPJymNFZ6 D53nq7B4IEFePIMk ECC0aNU6cF2gjWckhydh bGVmdDsgdmVydGljYWwt OEmaQ619QCEedIbeQrQt pYl9Q4IyAcd4PLDo fZmpGX6gfALgXOajUu1n wYkfdLvpUI3zLOZxmkwy r313JeJtv9lxJQPllOHv WMntAVM2W67jo6D5 RRGzRBKiFJM9sGK9dJ1g bGlnbjogbGVmdDsgdmVy nTjoQElkZUbqJ861OWLg cDsnPlBhdGllbnQg QLycAQl4I6RaWdmglYT+ DP78ZNHwDQ56wNBioHYt u2jyuDr2LdObUUGcCKS7 bFwnOZddh2EaYUFp R63tmVIos9S9SOXspHvn hODtAiMnmNH0dM6tNZjg dedzq0zrctujFwqdh8pm yv66pZ26D85zONlr ZHRoPSIzMCUiIHZhbGln ev1sbW1mYr3+PGNvbCB3 xLT3qB8tVDAjIgU1DXmz A013JfPbzDGxTrqx i2oea6urhEu2GqA8TXOf efAnmIebUXD5u9TfLm40 U38nCZutKURpEHTbSDUc IKGmfLzjss5ekN0c Ii8+KMBzqCO7iPO5xI3y WkEjSbE7PWwpC393SzYb sSBpOinqJ93cC3EstQD+ GWPzCeh0IVWcoMzq QU1yhVUsOOpxMs8hTUO5 GnRcNiVuGWflF4LpICEz olngkwejjVW0IQVeTKUh hT51Ii8ujEueWZHy mZFOgP4fdaqsb8huasez HoKrWPFbTYt6BNi6LCMq uCxfQjBcDBR7ArH3OOM4 iBRefC3zlZscsgjx sH3sL8UuLIKceckxBv74 jS9mKzLxTyM2ACjeKfv+ Y3BQTIRWDSWHUPqkUGXC UPIYNM11HL17tHHo t4W2dGV7J2WsKJQgqvdl sdudrHW0ZDWqKEGrhU14 vMOhXDebWk4tu7V8j912 CGFdFMCmgS45Tr1j lQizJTHloRRScD0oonjb s2yyokuhXvHqCZErMCd1 ABd2QGHwtGzaLxDlWZK1 MlE6QAQ0vYWmfR0p iOfyeuuikC8zKio+MDEv LEReYFe5XhgimRU+PHRk EXS1lKwuXQyqJJJumZ8r BPXvI0h2RaPePiC8 CByjB9McZNTdiwioNw54 aG8bBkFyHtB0LDwyW3Qt ggZ7VNSldEHiGDdhQDV6 U28zv3U9RRUzKBOo XCO9nSX5bH7sxDnpjnjw bGVmdDsgdmVydGljYWwt PWdhA748WIBvoJkkJabi FMsnISVxEY62JP65 aVMed6R7fSQ8H6DdDMRf socnwkglnVF8OYJpKYCi uU21cJIyENxwOx9nc8O2 s664LFPkGGRvmV24 Hx7rpAfeYQNiyRZPwS8g gehbk6dobzgjTgUpDWOg XDb1AVm6ZJKueSimOmFe WKC8PdV4BGA3bHRu pO3zlCxdruhqvL0cHdw+ TUFMRTwvdGQ+PHRkIHN0 mXgiBArpORTwlR1pNBMf S1o6BcHyLuZ5ZCds B4GeSKZeyqczLp71rH7n HuDsXxX3WKsaD0LuqlP7 GKCzoPGdYDtyIOK6O98u y9B9SEMlIVDwHSJ6 hXW9rT3hdPnexyzgeXVp dDsgdmVydGljYWwtYWxp Q590QPLznMseOo3WCW77 ZW26D3BfPpjfvQVt bGU+PHRhYmxlIHdpZHRo WEsnWRVxBcOktKrzZK1u Ts7dHKFwJUXqjYzcqRYt UjWpu7doYNQmIYzx YZ6gjGkhX7GbuDA4SMEk o5g6Sh60Q15mA2ZttUV+ SNBecJJ9sBP7oH6fZsJq SuF7WMsiL568FuJj vDZqBwedb8ibo4vsbBo0 IjMwJSIgdmFsaWduPSJ0 i4IvHp77I87mKMzpGYZs PSIyMCUiIHZhbGln sc8dfK3dCq8+PGNvbCB3 rKI7tZ1eNaWsSrE6SYgq W775OzXgdWAkLgptX01k Z0CkjWZ+PHRyPjx0 ABCwyIjsCS5usWLrGAre Up2qSWE1FsFcKcLoGZql C2NfRKThuyevnmptoRX1 CWMqJNDgbQ94Af9w uXegFz3rLCKuSUH9IIYo wYCtH1TwaF4iPzClCWZq PCDdT5QviNFkAYjdG617 EXirEjB9VAYyiiDw U0WxHMKdmSrtCnC9z9B6 Rs5LxRfcuNAoWP6jCzOd OZs1F2JzLmj3GUJcrWqs EV0nhMKpKSxqHj6i zWikoDwvUM9rVXIvayob d378PhUrh0oqXRJbaPZa QHqiMTR2Q16vv9F3CDUf JSHfDQP1rML7yW6v bGlnbjogbGVmdDsgdmVy gBtxOKpfPRorI420GBWj rAiiFwPGWop3T5HjIeq8 QXWfyDnpUM4riXVm YGlcAc0wfWgbdNcqVB0i QVOfuxcys336ApYfi9nz MKCrhQKyVKhiZCH1I83l j1M3RTCcHEAlYLW1 aBW3eR3npUsjwdaglJDb dDsgdmVydGljYWwtYWxp N945WZUuiXgcLw1GXim0 Y6UaEyo9MQMvjHcy CY9hfVFsDPtrWp2swIdd sFnyCJ9jUTFnasfil633 RaWhl1ctJQEmcCXxRLgu LMD6A50kn5E7GZQa IMEmRJM7pSD8cZ5pqTpf bjogbGVmdDsgdmVydGlj APzhYNteA375FUHuePfl PlBheWVyOjwvdGQ+ XF28en91I5NlWsljQjx1 CBTiIWU0tWE2wY2bEDGa GJxhm7U9mDX1N8IcmdKk ai2za9rwDEIcLQhk Y29 (more content not included)... [facility] Coding Summaryon 01-16-2025 Coding Summary HTMLBase 64 YfglmejuWUo9lYi+PGhl YWQ+HA9MJKUxB20xjSFd yS5qH8HQBTnUOvokWFWY XWuCAcGnkySnPO8alHGm ZXJu IC8+PL4jQJYoWsgjdBJl v0D0fFZ9Y16pfb7fHGap xST9WKEnYvWoglmkw9ip gFh5WPrpQqxwEoUo DDHubE44RNA7lD68Cj66 oVYymHMvv3oazAu0TqHn TZJtWKI1hRhxRJoer1Mh BFMzM69cpVRjw4X3 IGNvbGxhcHNlOyBlbXB0 pL5yISupioeza9fjsesd Amq4ok86bNAoj3B2sIV3 J4IuudJ9ZIKxbFCc TbpydVAXwZ5lyeglf1nx dxfaKeGbTUUkOAc4BXl6 WERocOhzTpJoRN76JYJ9 AFKcbfDpG1AhAUWd eVxbHcT9u4M0Rf5LP3SU YhhtY6GSWADGXSuifFS+ KV15lk76J3YbJlruDnb6 CUOnTIR3rZV8hU7y BRZqKMqln6M1zYK2X3Oa yoAgjv3nk2mgMLQeBYtw U15dnAOvm0E7GVMovBV1 DTOoxPomWeFgjM61 Oyc+HDXihEavy1FhAqlc r7rbp1nocLw6ClcqQNEl yqZalEuySYQ9m8OxXp6g UOEvkVY8pWN8fW4o AcXfJsV6NNbcX645VnFw gMWaNmkrY07dZ5XafVI+ KBXeSzn4ZPOyyGtmSV5w T8EaXQBidmjkwTJn sCpsRT4bFYDrddxdDXUu tL1rQBHkZ9t5GrUpXtA4 HJpkM2VqWWKxzuclYe69 jN6hXnBjSzT2THpg S1PkthI0BSCcnTOmPMlp RFH7L10ps8V7ITDiUIBx NUB9uDK3wT2oeYrinjeu bGVmdDsgdmVydGlj CApyYSqpH834THSfqDkb PkNvZGluZyBEYXRlOiAg MDcvMzEvMjAyNTwvdGQ+ ZVTjLBF6hTjwCAXt fHZwKAmpXs0hpDdzrZzp FE6kWXIiwvplKPRxeA9i AIZlhJMekPowYX3eAYGx inrcw230CbPsFPG4 JEUztQTxT6PruG9wSoZs QTScBDWiQ9HzcFWtHAxq N865SVfwVjE5BOXcnhEd P1JeSFWpsBstEdB4 s5R6Px8Gt4IdmxyaH5Xx iZMyYpUkIfzlELm9B0Gq PjwvdHI+TR18FJItVI28 MHo6WBK1qJbjLKdl PUZoT9GxmO2vRxQhLNDv ZGRkOyc+PHRhYmxlIHdp ZHRoPScxMDAlJyBzdHls WQ5mKe8xIMQfNHOj dJapcOYrHwNck4szQFWb AVfvFP0arZmwM9XmePC8 MBFso1o5Br73A96oQ1If dXA+VPZziOV5xKZ2 hE3gQbTxWyR9RYlkF055 BuXzbNSoCunpx1tnf2bo zJh2BdA8MXNfoyRwpGbs VSP2q5PzNj42K56t IHdpZHRoPSIxNSUiIHZh mTlwqr6xbO6xQo1+PGNv qNK7dZT1nE6rKoFiGzN7 KCqjX015WkVnnJAf Zyvpt0noa7cldZp2VrFg VHLwdxMffSpvKZE1v5Rv Iv94Y5OupXjam3PmNcc2 tv82rUWmt2X4yTL4 K2XxCWWtydwcpMHggEzq WB1rHZLmyoeuOEAgzT6k TKWiW2d3CfIoTzQ5TQns E9EvedZ8HLArhETf SJCtyBBGuW3vgnppk5ji atliAuTvPCExHRn0TAn2 OXMzpDfkUoWcLXQ2JoA1 DML3gILjzN5ksMrc hqbddK6xCed+RBL9lUKl cPFINO9sJtyguDL+PHRk OYN9rRhcYFszUSNrsE4w OCWwQ1i7GbMaLiV6 BEayQ3YtkhG8BRBvgGUm CHEjgCPFdQ4jnflhv1he klcxLtZvLAWqFCs9EIv5 LWFsaWduOiBsZWZ0 SoH7FHJ4fAUgzD3qaQbj foydnT4dBty+QmlydGgg YXA2OLh3P9SxOvj4YYBi wZcjEO7rtSZdWRuk Bt2kbYmnpJgqLC3mSRGk gtmwo863EnPwa1dcTPVj hLVvFWyeADO0S17zr2L7 XWBbGWLwITI0xJJ5 cW5qlCzyuniysJRjtZuh gyDosJnzIPlyTBgyL269 GTKguSkzWlJqPEs3P7Qt Njq0KHDjaKvhNR7o xBVcLMhsPc6uxYwqdDsp UO4jPMEnypnmc318XnDn u7gaQIJeeOPuLLziJXP0 D15ur0U9TBAlGBGq IAX8vTN8vV3yjIxkqbqq bGVmdDsgdmVydGljYWwt YDnmF031AKQsjAffMaHc vJy4M9QgMyj7UZPu xKliGE5ssDGtGQmdKb3w dYkkfAkaDV8zAOOrcpqx d654XcFwx4ruSVFomKTm BHmiLZI1R96bn7X6 OVErENEiKLQ2vNQ6pD1c bGlnbjogbGVmdDsgdmVy dXbrYQhjLKiyJ373KWEb cDsnPlBhdGllbnQg CLegYKs0L5AvVtrjfBJ+ VF69QIFiAD93lRGnpDRc u9hpcHa8DnHbVIHgGIZ7 kUixRQxep8AuSFFf H30sxNEnp0K5FDFbbEvz jZTwUzOufLG8pN6uQMsf qnylc3qsvhdyWbknj6ds nm38yW79T60uWGol ZHRoPSIzMCUiIHZhbGln iq0xuS2gMy7+PGNvbCB3 dID4pX9hCHNkNrH2QWpz I519CuKfnHXqWnrr u1mck4vjaVf6EzE1IXRi ptBrwRgjDWC1q9NnPh69 U34sRFvvQWWdLOBlBEMy YWKhuZtusw2qrV6e Ii8+VSUrcVD8kHI8tE5m BhEnSfF2BUiiB025CeNm vDFtNnonB11yV7FohXZ+ CFLtDto9VXWdaYva VR1xxHHdXLnhWn7hIMR2 EhDyPoIiPTmgU8WjCLXz wtnshfskeJG4VBMsRMDa kM66Gt5eaMqoPJSq kFMPdP1yupscn0yjiyqe OpCjDXTiPWd3RAu3FOQs aYryFdIyXHD7JmI8BPH4 pYNbwY5knQtnnsns rS9xO1WjWYLxqtneLp17 gT2wZzRdZbJ2DSxvMuz+ L8SMFXLVJLKGSYrxYZYN VZWYIH44OF33uWLd n8P3nMT7P2YgPFIpmnen ncjmeQV4TBPmZGHhaC47 qUNaUMcqUj6ka0K6y352 FRAmFLVepR84Um9w iHpmXQJumYGDgT5ktgxj r6dywmxdWcQcKFGqUKw3 XNm0TUSpwQlqAxYbVXN9 HoM1HGI0bNKynC2c lXmxwtpvqD7cFog+MDEv SIZcWRz7HvjpcIO+PHRk SKH7kFdkHRulACIknC7v GTAeK3g7BwZnCeT7 UIhwB5BiFHGfccpnJb76 oF4vAbZbMqW2QZytN1Sw tvX8RUCmmZCmAGaoEKP6 T19vy5T3EDZqEULf NYA0pBQ8vG1ceBokauzk bGVmdDsgdmVydGljYWwt ZNoiP086KWWngSovFubx XJojHZDzPA54NO55 fKNwk5J8iOG0R2IzNXAx atufxxwqzSF7PBJsWOQz eA67dXCiZQwbJu5qx0F1 b911QJKmYBVkpH22 Bp6axMajDCInlHGUdT9k pdauy8esewetDqWfPDAq WSp1ZZp8VJDbfWatJcFf IBF8FtS6FFZ5fFMk dD4kcSitfrvfvI6dHos+ TUFMRTwvdGQ+PHRkIHN0 mPyaVFtpMRDotO9xGJUj A9z9KjCkVcR9JAff L2SaWBBbrftfAa06lF0t BhXlMfO7SBkeC2SquvL9 LMQuxAFiQBjcKNE2E42j m0F0QVTeGVRaOFD1 oYZ4sB1goPmjthgwoSJq dDsgdmVydGljYWwtYWxp U034LWQdbUbkAj6SPR89 SP83T7PlNdpubYYu bGU+PHRhYmxlIHdpZHRo PTaiDHJrVrSwrYrhJN6o Pr1qSVBiJNIccHlusQUg TcKtl9ziESFfIRob DC2jaRmrN8SwkYB9IUBo m9g4Uz74D08uJ2OkfAK+ VALnbOT3aTW5dC2wMzNn UnG4WBguX575HiLo yZRoKdqyj3cju8slnWj3 IjMwJSIgdmFsaWduPSJ0 o3YxGo91A03xPEbjEKQg PSIyMCUiIHZhbGln ub2psF9bVg7+PGNvbCB3 bVL9gC4lLsZmBaC0BYso X621OuKrdZSdZzdjR18o G9WdgAW+PHRyPjx0 BHMitZbzHD9yvMTbULlu Cq3zJTQ1XkVuNyEtGPle P3JyLDMrnplzvtqbnYV5 ZAMwELYqeR92Yt0y lFeaYm6gFBHyPEN6CYJv eXOxS7UldY8jMkAuPQZh USNxG8YujNMzQReoS728 YFzwDwV3VTTuvuRw L2TtAPOeiMdvCgX3r6P7 Ur1FhHonuHBeNQ0iEnYy MOm1E6JzCcn2LKDunWdo XL2biJNtCAsrPz9o pTcqwNzrMM8aBAZdlirw t195FpWoc0ejEALeuOQm HVscBMP6R93wv1M1UGNd PHNqXJS6uIW4rM4h bGlnbjogbGVmdDsgdmVy eFggBOdfUIzeU214EPSf iVchXqFJVpp6T3YoBpe5 ZSQfsEqrDB8thSNl CRweOi1qdFqcoRwuFX8w FOYveangj273DePmz9xz ONWebBWzQWvwQDH4D94z s8S4RBQzBEFoEDV2 tSU4iK3ixRnxwhghqLIb dDsgdmVydGljYWwtYWxp X700UWObeHkwDw8EYth6 E0MlMuw9HQVgvLuq SS8nsOTvAHsbXw5coBxv nRysHA1vSAGjqdssi419 KeJvh5imNUVvtJSxKFhr CXM7O51zp1M7PUYg WGXdTEG7mFY9uG2vvYoh bjogbGVmdDsgdmVydGlj SFpeQAmkW916TTSkbDfo PlBheWVyOjwvdGQ+ PB65fu89N1KeRcxiWsl0 CIGzRKB1bLQ9kM7eNMNs UFezb9Y5jUS0J8KfepSt tr1wx8msBVLrJQuv Y29 (more content not included)... [facility] Office/Clinic Noteon 025 Office/Clinic Note Patient: RICHARD [...] 106.590 kg Body Mass Index 33.27 kg/m2 [place] Body Weight Calculated 74.087 kg BSA Measured 2.3 m2 General: Alert and oriented, No acute distress. Respiratory: Lungs are clear to auscultation, Respirations are non-labored, Breath sounds are equal. Cardiovascular: Normal rate, Regular rhythm, No murmur, Good pulses equal in all extremities. Impression and Plan Diagnosis Type 2 diabetes mellitus (ICC58-NF E11.9). Plan: Recommend continuing on current dosing of medication and holding the Jardiance. His average is better. Will have follow-up in 2 months.. Orders Orders Evaluation and Management: 18837 Office Visit - established pt, Level 3 (Order): 01/16/2025 10:46 EDT, Qty: 1, Type 2 diabetes mellitus. [Electronically Signed on: 01/16/2025 11:12 EDT] Marj Sorensen MD [Verified on: 01/16/2025 11:12 EDT] Marj Sorensen MD [facility] Outside Recordson 01-08-2025 Outside Records [id number] 2#1.00OTGTIFF [facility] Office/Clinic Noteon 025 Office/Clinic Note Patient: RICHARD [...] 103.420 kg Body Mass Index 32.28 kg/m2 [place] Body Weight Calculated 74.087 kg BSA Measured 2.27 m2 General: Alert and oriented. Respiratory: Lungs are clear to auscultation, Respirations are non-labored, Breath sounds are equal. Cardiovascular: Normal rate, Regular rhythm, No murmur. Impression and Plan Diagnosis Type 2 diabetes mellitus (GZF03-OF E11.9). Plan: Discussed with patient would like [...] his medication.. Orders Orders Evaluation and Management: [id number] Office Visit - established pt, Level 3 (Order): 01/02/2025 10:54 EDT, Qty: 1, Type (more content not included)... [facility] Outside Recordson 12-13-2024 Outside Records [id number] 56#1.00OTGTIFF [facility] Coding Summaryon 12-06-2024 Coding Summary HTMLBase 64 SrfbyuyvUVt0lYj+PGhl YWQ+MA7ZTNLiO95czGAy uB2oB8BHOMdANhyvCBCQ EOtBHxBsugMsIC6tsLDb ZXJu IC8+KS8wFPDdJrygvLYu a0L5fSD1S26ecw8pPRnq qYR3GKFuFoYsawmqg5te jZk1MJebGztrLkBw BWTqfM15KIW2gI16Ng88 nSZzuWVum7soqYe3MoHi KDApFTY9rLjhLBjhj2Fr NATkO00aoDYqy3F5 IGNvbGxhcHNlOyBlbXB0 uD2dIRiatpvql6kgfbmv Hny3mn45iCNap1P1eEJ0 D6JbxkF0TXJexHMd MqschFWFhN2scnqoo0zs hdysZaZvEIWvHVn3NQw5 JBBuwKylRmXuDF65SXK6 YHRkavQoX2FtDLYw oTqqGlV3q0D3Sd5CH8PW BlaaF7BUIAYOHCzbcYC+ XN59pw56J2OjUocoPbb7 WKKiSKM8nSL8wX3w TWUwUMdaf2A9oIW1C2Un dpSizq8sd8tcGUMxQWyn U33rzTWbl0K5OUZwnZT6 WDHbvKvvZkInoP47 Oyc+DQKfsAfuq2SuNmon u8kgh2nrjCs2KavqAOZs qxFxkHikAPM4q7RrLr0s KSJtbXI0hXJ5mK6l BcIwZoF1EKjzN458BjIn uQLpYakoJ83sF0SdnOW+ APFhLgc5MQYtlFaiAT8w I4KgHOMedknggHBb qUiuAP4gOCOqkviwYBLm gY6zHNXqS4j5YeLxUlB2 BQfdE3HnBJSmtjznQq29 aH7uMvTmAuO6BWdi Z8BtdcD8EQAczUQpJKbh YJH3W37kx1F0GDCsROOm GUY0yHF8qR2oqBoceiem bGVmdDsgdmVydGlj SMzaNQkoX287ZJFqsFzm PkNvZGluZyBEYXRlOiAg MDYvMjAvMjAyNTwvdGQ+ VJXgOOY2dRcwZSZm wJQrMOaaRz8phEouxGgb VM5zMPJfoajiCPSfmF7c WQCvpMByrCxtBV7uFBVc dgthj900HlIpZDM0 UXWbsKYqU0SwvB7qEaJl LDSvAOMuC4SgqHEuMAvo Z380PTcoWxS6VZYzflGs R4RsRTVsiHemInE6 z7P7Pd1Zh7ZuoolsJ7Yj rZKqCkBmEfgdVQt9I6Lh PjwvdHI+GA99QFEhGP35 FMd6LMU5zEaqNCwg ATKrS5VooF3wSnRrCIBs ZGRkOyc+PHRhYmxlIHdp ZHRoPScxMDAlJyBzdHls BO6gHg5zEWCaLWKr sRwddIIpLnWou6tsDCUb QXgjWE3cqBwnL2LgeNX2 JIVse4o0Tm14V24xU9Jw dXA+JAJscII7jJE3 mH9bDfCkBlQ7LOjfW409 BgNxkCEtZimsg3fka8wc kRp5YoE7LBBbunXzaYmp PDJ4a8KhBl67E22p IHdpZHRoPSIxNSUiIHZh nBnvqv3rwP5zGr1+PGNv cZX9oLW8nA7yShWjVhF4 HCpzU229SdVwcEEm Yscjx9sih5rdyGd5HiGp HJPomtLvoPxyCEQ9d7Wb Xc48V9UzgYyag8GgEtt8 mv92kZLfd8F4jQS2 Y2FmXRPijfmpbJTxpOpo JM5iGRLnlpdbRJKawO6g UJJhL1b7SnPjWxR3CDxl F5AkpvM4UUWvgNMj KICfkAOWgJ3vsxulz7tz wvnzPmTbCWVtCNu0NEr0 TDDnnJogVmVuAHY7EeI7 CKS2zCRozX4mrZvg uqijtI4pJyx+TJE8cKAm vGNOJE1kUikvqAN+PHRk PYE5wFclNKcsWYCrhG6r TGRxW0j3PgCkOlU7 GRdpZ7DgsdT3KKOxiUVd PGBfcEPLfO0rpgbzt6yq ketoKnUeKLDgVQo3YKx4 LWFsaWduOiBsZWZ0 VoH9VDR5sKCnaE5afQov zwzttX1aVec+QmlydGgg LCK3AGy3F0XrSli5ZCWx pIqbJL0rnPDgVXqr Qc1tsPgonKfzAF5eHYOr vthek057SvTek2znKZSi nTNlIJxwCFV5V92da2U0 EAVvYRXoKJO4nYN2 sX4mvCyaoxzlfSMmmSxg zxYsbHsjFQidHBkaY964 HBYjwRamLaLfMRd7L4Yx Cwt9JPEdzZtfHB9p aCEuZXbpId6daIeudSsp IL3lQYMwbgbln249OcWt f9rmEAWhhKVuEYwwGAH7 G10ez0S9LUZiWFEq GBI2rJG1tS9llYreagzb bGVmdDsgdmVydGljYWwt YJqmA573EOUdhYozFcLl qGs1Z8YiNgi2DNGs rWvpVP6ixEBdIPfuEv2a dRsbwHmeQZ1dPUJpmwtd v743HzYyt5ddNUZpwMHu EZqbZTA9A85wm9G0 MPRtCDLuUEB1vFY7aZ8a bGlnbjogbGVmdDsgdmVy jFsoEAuyQKwhF064BHTd cDsnPlBhdGllbnQg QAesMNl0T0JbJvrzaZO+ LA28TLWvKQ47vLWjqBIi y7xjfVp3XwGtLCGwOIQ6 jPpyVZcwk8LdDTYy I70mrPGcm9T2CUUguSeh kGFfAfDhhRA6xC1oZWzf kldcf0fpleyoIclgq3pz xv77tB53M93qKFmm ZHRoPSIzMCUiIHZhbGln sv3usN9qCo2+PGNvbCB3 sKB5qX7aNGWvJtZ6LEwz M058DiQyvMFfWyza f7bjm9nkbGu4HgY1BDFb mwMgwMjqVFB3j3FiZa81 Y24hHQvkHPJkOOHjKPTq HVWuzLppkv8yyJ4d Ii8+IPUkxBE4xTR3pS2j CiWqFrF4JXajC724NnUv uXRvLcqmL83iA4HllOT+ BLIoUmi6RUFmeLjl QU3vgMKdPAkySj8fJQG5 AjHxKhEpFIkxJ9OcIRCi qpgapwzkkRC1IKDwYHGd iV76Ml6zfNdnDEAt aSWNzP0dfiwpp4jsilsi NuUnIUWaLRu1YLh8LHUy yWkaNrJqUPH8UiO5VEW1 xHHhpI0wuJczzpvz sT0aY0RdILTxvleoQa07 zP4lGcHyWnK3INscBnq+ U5FWKNGXEPLTOAkrUYUC SYZITC47EB89iLIl t3Q8aCU8O8ZfWRCcqzrr guucyKU2YXJcLRVnrR58 pUFtGIyeZo2qd4Z3p595 RDDbWCRpcS84Kr1h xXziFKTwqECDzR3rorkg y7mwcolrMrTuZBAaXZp0 LJh2OIUunZfcSaTyOQQ5 EdM5CNG7bBTpqD6l cLzkdqrzsT4rCsx+MDEv VKWlUHb1FkdkkQC+PHRk LZL3qEiqFQdqVECfnH6m WBBcF8g4DrSpIfF2 DXsfB2TgXANcfmsdIw65 zW4iCqXnWaE2QWitS2Tc lrE5RCNvzEQgHZyuFRZ0 K65vf1C9MWGaPRAx OMZ5sBX2aZ5xhXwioqfw bGVmdDsgdmVydGljYWwt VGfqH857HCFmsRabPdvi NFnmZBWcLW56JR38 zZDjb4W8aKC8C6QlKFUf dtjmjpxikAA9ZZFgMWOv fM56oBYvZSpaSy3zi0S3 k855TCHsEKFfhZ48 Gk0wsOxqNHGsmQJTyG2m qwszh9qixccrNmJmBBBv WKz6VPi5GFGdfKgiDzJo MYN1MoV8DQH6qYRp nU7iuThkrdhovQ3tCwa+ TUFMRTwvdGQ+PHRkIHN0 vMdfRIskMDTunG0jMXAz N9d0SmXuQfB4IFzx M1NuGRVvfdvyGs44bC7c PjQgThX6GWtuI6MkjeO7 YUFxtQKnNEtmWQZ3D31c g2Z0IIRsQRCnUPP2 aYO7vC7scWfezozecCGt dDsgdmVydGljYWwtYWxp V101VVMfvLqxXc6KNI45 AK14J0SzBwsaaWYj bGU+PHRhYmxlIHdpZHRo HNqgYTZrOlAzuHefAM4c Nz4qRVLoRADomVupmBPa MvFnz6enWNVkQHkd ZG6ecBudX7PdpLM1QZBj u6m6Cz64F52hG2IytIW+ BXIooTR5yNS7qP4sXcUq UvO6VKkzQ492IrYb mWWuPdgla2wmc5sqbNj0 IjMwJSIgdmFsaWduPSJ0 o2UzPm71D69vEFflHUYq PSIyMCUiIHZhbGln os2bdY5fVw0+PGNvbCB3 dPD9zL9sIkJyNlE6LVvi P426QkNluDQqFvjbZ22y G9RupIJ+PHRyPjx0 BIMzpQxaFU1xjLGaMLpk Wc1eQOB3AlZaRzQjSQmq I0CfEEQzxympfclxfMR6 MARgIPDlbJ30Vl6c pOnqLy9yEVQvODD9JWEx sRUyY3McxC0kGmWaARDe DEOhR9GycCSsWIdeI507 QSolTfO5UNYdjlYx V1JbYIIfjWugLgI5w7C8 Sh7MvFuzjYEyMH3bEsNu AHf7N2WiFeb4XCWhzCgj KD9lbMZgKPkhRk4a bBfviCplZH7jKEMqagjs w049XtNoj9nbNWLucUDa WVcgEHZ0X90zf6N1GOUm OJCkHNV6qYD2dG2r bGlnbjogbGVmdDsgdmVy rBhmBIhgVDmpA758OSGi nMuaJoPTNfr4V9HeDie6 UJCthWasXF4rkUWu OOdhVd0guMnnzUyhNW5y VYHmxwgbp670MrAun5pj WCFigPXbWZihOIW8P81s b2N1POPgTLJxXNL1 mEP4bB3xgKewlegcxOPu dDsgdmVydGljYWwtYWxp F412HRAwrYpmRe3CLio1 P8XfOav1EFZqeVme EX6vsGAaDEdoVg9avQvj hJrhRQ1lLLYdqpsyr945 PeGme8ttCJKvlGBjHGdt EYW0Y61rl5Z9TJGt CXFlPLV3oII2oI4ivWjy bjogbGVmdDsgdmVydGlj KJroBEsdQ454NTXkhKjl PlBheWVyOjwvdGQ+ HO01xb43T7AuEtmaFkl2 EQLmOPH8bUW8vH5nAYNt PPhqh1I8dIN5W2TyqoFa kv3os6eoWPNcVPnm Y29 (more content not included)... Normal [facility] Office/Clinic Noteon 025 Office/Clinic Note Patient: [...] He also continues to follow-up with his lead cytogenetic technologist. He reports he currently is seeing his boatwright for an infection on his foot. He [...] 104.000 kg Body Mass Index 32.46 kg/m2 [place] Body Weight Calculated 74.087 kg BSA Measured 2.27 m2 General: Alert and oriented, No acute distress. Respiratory: Lungs are clear to auscultation, Respirations are non-labored, Breath sounds are equal. Cardiovascular: Normal rate, Regular rhythm, No murmur, Good pulses equal in all extremities. Impression and Plan Diagnosis Diabetes (PBI75-KB E11.9). Plan: Will have patient increase his Toujeo to 26 units twice a day. Discussed with him about taking his insulin regardless in the morning. Continue to monitor blood sugars with continuous glucose monitoring system. Should follow-up in 4 george (more content not included)... [facility] Provider Orderson 10-30-2024 Provider Orders [id number][facility]24 Follow-up visit [id number] Richard Boykin 1940 M Date Provider Department Center 10/28/2024 SWEETIE TRIMBLE [facility] Family History Problem Relation Age of Onset Stroke Mother Valvular heart disease Father Family Status - Relation Status Age at Mother Father Level of Service:[address] [place] OFFICE/OUTPATIENT ESTABLISHED MOD MDM 30 MIN [facility] Outside Recordson 10-28-2024 Outside Records [id number]# [facility] 10-24-2024 Outside Records [id number] 9#1.00[facility] Coding Summaryon 10-23-2024 Coding Summary HTMLBase 64 XgffedwgOLp8aYo+PGhl YWQ+VR7DHPYdZ76tmHDi hN8jT3MABKsKEezcAHGX DEpBNxGuysNqZB9jdAOs ZXJu IC8+RC5wNNDqSqsqvTQa z6N0vAD2Y32zxw1cYWwt mJB9TXTlJfPbtfboa6ft aCc6TSjkNvnqGrUw MXFeeU63JFS8yI59Ef64 yEZzqXJbs8fvqEc5YwUk JWPaPHG8kPmlZJxtw5Tj PXVrZ66ehCLcr9E3 IGNvbGxhcHNlOyBlbXB0 bD0eCQkcfckih6baxtpd Ggf7cw54pCBhj3W0kMH4 T0FsqgO0YOKsvVDy LlgloVQGtQ8bjieth8vl vxbkHdJtTBLjNSp9ZTb4 ODPuaUuiYgInZA60ZJQ6 VSDwltZtH8JiNMPx cHgjLnH7m0O0Pq1SK8AA VxqxD1ECLPRJTSwtvEM+ WF78in54M6TnZekxDay3 FSYiDVS3iLI2gO4x AIYnPKscv1N2jEJ9R4Pi syUoyv9yn6hgXDRjOAai I28mfKJcc6K9LQSewOY9 ARQmrWtfZsYmoR01 Oyc+TZPggWexo7UyNppe b5tii9gspIn0QumuJUQr ohGlrYsnNBU4e9LxRz2u WDKiuNZ7pEP8aW4d FrCtXgA4MXllZ615DyIu zNLwWahgS59cV6JfzGC+ XXVbUyp8DCVufQtlBE9q A5UrKDOhumosuMPk gKciCL8aAQIomihyVBVy dD5fUPLqF8q1DjAoGhJ3 CYmoU9YjVLNfvkydJn86 pI6gSwBfMuC3WNsg S6WppuW3KROmjKOdRAjs WOJ7Z52fy3L4GMBiWMVv ZTL0sYO1dV4vqFgaoziv bGVmdDsgdmVydGlj SGvnSSihE209RCAipRnc PkNvZGluZyBEYXRlOiAg MDUvMDcvMjAyNTwvdGQ+ YJXcICU1uVthWRAp yXKhSSusFl8muZrhvAfg IE3xOVUktleuEPJqgB4g YWTsgKYnfHkiNE4gGEHl rbpfe798ZeOjQKL8 WMQvxAQxX3BqnI2oYfCc NTIvFDIxE0YgrMRoZQus N755KCuzRzL1YVWlufKp P1IqTMOcwLdzEaO8 h1Q0Rv8Vo6AkpuleO3Xj tBGsJdFyFlyaJBk3H5Hz PjwvdHI+OU87VGWzIU62 KLt1TCN0fCfmWBpf KTEyF1CajC8zCrZwNUXe ZGRkOyc+PHRhYmxlIHdp ZHRoPScxMDAlJyBzdHls CG8oHh7dJNCtKWEj xIcwtWWnWwSyo0syYQDy PNprTJ8gfKlwQ6GktHP1 KSVid3r7Eh67V16fA0Vf dXA+VCWyzWC3jHA5 iL3bYwIeGjO0UXjjC185 TtBxpNYjKmwve5kje7gs zQz6PmP9OHYgnsXyqDzm YVN3v8MlXw07W48g IHdpZHRoPSIxNSUiIHZh kHlmab6yvU4lLp5+PGNv wBC0jXB6xG7wJgNtSmJ5 HVkxN084EuZqhFJj Loxqh1mcy2zuqIa7WsSk PLYxbePcpOqqRXB4n1Br Rx54Q7EtqWcsh7SnZdz6 xu66hAOsz2K0oJX7 W4HmVCIzqhwiuLCkqMcd RI4wJZVhodozHPEqfC6d HGSvA0q6FsWeOwX4OVnz V8RovzP1DIYxvXRs KVAdxXANyE2kuvgwt0mc kdppFyEnPCDyUOs6PAi9 YDVejRdeBiTqRBU4TzC4 WQX0iHObmV3ulYrd tmwbdK4aHoj+INU9tLJx oKYWEN2rSunbdFR+PHRk XVJ1tMfhMPeqJRKdeA8q ZKYsU1g2QaYyDuP8 LRjnD5IljdW4YTLaxPMx DTMgkBXPdM1gikthm2uy frlhGnGfWBRfROo3ALj7 LWFsaWduOiBsZWZ0 AxF6NQP4eNExfK3owPhv clgmkS8pXyj+QmlydGgg EJZ4IPk9F1YwCku5AVMt zXujIO9goDXzMUfj Gr1zoKroxFpePH3wTBBr xkmeh009TtPlr0wqAYGf rTDvZCodHTG6C05vp0J1 ZOIjAIZhYEX7yWP7 qK0ycCiowzmhdAZocRch ygYkgSguHQmkOKayF004 IBSwuUugFsKbRPq3Z0Xf Wdh4BLXaoHrkUQ5u yJDxKUquTf6jeBzuoOmx RJ2vXPWqkehwj131VrUt o1uoJIUpiMFsZTwjLLT6 F52qb5V4RCSlYVWd MGZ6zLF6aD3exMpkseox bGVmdDsgdmVydGljYWwt WPhpH374NWFchRjcQyFj kKr6Q7KvTjg3IHUj sQdqSC4faAKwRYgiEq5z kLabaCygXV1nXNSlbhrk u893QsOua9heVNHenFDa UGpfMVP2F94ou4Q3 JIIlPDRuHWZ7yUV5yU1z bGlnbjogbGVmdDsgdmVy xYysGZhpJShbP627KYSi cDsnPlBhdGllbnQg ZPmgBYg9I4TaFjhyeOK+ PH84FRGdLW43lCLkwRMg s5bflPf0BnHiNSIfTLW4 dCscDGccr9WzWRBp D29qsSKxc0F7GTHmtAcc mTUyVrJgoOK0lW4sZJaw umzbl7lbooovWmjss7qc id71iB22C01yCAhq ZHRoPSIzMCUiIHZhbGln iw0snB2uGk6+PGNvbCB3 aWN3uD6gMNOnIuK7VQan N294HpYltJEpRpdw v9twt1bydYd9GpX0DCTa kdQmbLhjRCQ7h7NpSw32 U59xMBpyTQUnTADoGUAy RKGppEtppk3aiF9m Ii8+INSktVC7yKG5wV8m RuQtZqW8HZljU619BlLh pRHpMbraJ48nD1SmoUI+ PIWaOyz2UXHwzVts KM7tiFMyIEeaMo4nSGH2 WbScKkFmEZnuM9MvGROa aebunjaswHW5QTNpMLNe vC59Cs9moWhbAJEr tUGWxC8fuqigx1axahar PnNoWWQdXUa8FBa8VKCt nOaeLaDmQNP7IuQ8NRS4 jMQteJ7ooGgnqaeb cG2hH0YmLJYqchmuRv52 lQ5vNrRoLtQ4JVnyYtz+ D3QQWYISNNIIQBpwSQTM QWMPAD96WB76jPPv y6Q3rPJ9I4MrXRWmdugs uphgaBZ2QDFmYVKepQ80 iWCkIScpDu7uf1N1f611 AKSeYNEraW35Cs5w xGtcEIYadRMMcB0sbcct f1eejhwiOpCxQBGmHKh4 NVd3BYSrkRusXaKnDNG8 AvJ9KQU2uWBxfB1m bYtwubennK2kUxm+MDEv BVCkSUp5BddomUG+PHRk LRZ3kKscHIdkONKczM8g LQRoU7p3JsQfSaK6 BBdiO8CtCBTmcwleAd50 lH2pVqCgZeY6GQypI3Sd iqG2VHEfdKXfBWesGRY6 S96ko8D5PVHlIVKh NYH1nRQ9rQ5ofRxgeyrk bGVmdDsgdmVydGljYWwt KKpuD834OGNrmRbuFihr UVeyFLWzFT67TT96 hHQab8N8nYJ6S3QnKCNd fmgtxegqoPS2USDkGDCw yR41mIUnHEpwFr5pc0E5 u619CSWfOBJvzH32 Mn8tkVsbKSPykLVKxJ8l sskvz3gntdhoJxPjMSLc UYl8USg8TFNvmHkvZpZf BWR0EfR5WAR8eUMz yL0vwVrraifuvN5xNck+ TUFMRTwvdGQ+PHRkIHN0 eDeqJEwhEEEiwC3hKCDr C9m3IhYrKkE2XAki Y8XzWTJmdgisJw21fN7e YkDwPnJ1ACzhQ8BhliS8 WYVxwDUkIWfvKGH7N79z h9E8LISxDLDrVJM5 jOE7jM8onQoudpqyrZLv dDsgdmVydGljYWwtYWxp K929FULvlRxsOm7OJY56 YD91M1HfPxzapONf bGU+PHRhYmxlIHdpZHRo YPmoOBSoOqRsiZwoJN6f Cq5bZJZjPVQbrRopdGBv ZrMan2wkTREcUZgb VU0cyQoxK1VwaDG6QBWv t2q3Ax27G69aR7OorTI+ LGMsuHH0fPV9pX0tWwDx LtQ4CMzcI210DgUf fKZcSqxso3wfj0cczUj8 IjMwJSIgdmFsaWduPSJ0 p1UrDt51F11xJRjkFUQu PSIyMCUiIHZhbGln lx7blZ2kRg5+PGNvbCB3 sYJ4rR7wEkPaWpW5CZab B918QyHbjAOhNfkjI72a Q0DopJN+PHRyPjx0 EFIszJhoEE9akKOrJRym Cj9uJAF4VcAiTsIjFSzi F3CvWUMzcgivlwlkuTK9 UDQsKPOkjV65Vw4p qDypMl4pPZPrSVT1VAIr cKMnK4RjjO0fLgBkJGTp FHWbN1GbdMWeYFyyF883 IRpwTbK7AFUwdcCu K7JjZOEmyOrjQuY1z0I1 Vp5MxEwjsTFjMF4mTmVt NJz3H1AhGwc2QZIioXiy BT2bdFPoJYmlCm4l wEhkiLqmPD1zLNIcemzh w164SkOvt3wmWXUvuYGs SKokVIB9H13ri0I4DNRg NEVpZIO2jFU1oD5o bGlnbjogbGVmdDsgdmVy nAzyEWaqJZceQ066REHd hAckOfFKGjh7D9TqPdt0 JKKggLdeVB4qqOSz IRrdUp3lzWdkmLinPP2w ZWLumwjlu925TlQze4ys QGZomPGtFGjlIKS5Z40h g9X9VSJsJKUgCIG1 eKV2wK6xgYqfaeyyrWEb dDsgdmVydGljYWwtYWxp L804SDJshQvrLv0YIpm9 W1NcIox0DRXkuAgb RA1qdCJsRBvqSf3agMmn qEapPE4vFWIajfypj801 UgMpg4lkZNUsrXWeEKht OMK3N57fg5I3OMRc OHNgJUS2aWT7zY9seRxy bjogbGVmdDsgdmVydGlj LLtkKFmxV440RCCkyRrv PlBheWVyOjwvdGQ+ RA26bp97A4PdZrsdAwk6 HZPkMBK6bUL3rN5iPGEm UTtgx0H3kKZ0U6WmjbTz zk4gs2epGPKeRPhr Y29 (more content not included)... [facility] Standardon 10-18-2024 eGFR Non AA 35 mL/min/1.73m2 Invalid Interpretation Code [facility] Comment on above: Performed By: #### 1 [id number], [id number], [id number], [id number] ####[facility] (DEFAULT)[address] [place] [address] eGFR AA 42 mL/min/1.73m2 Invalid Interpretation Code [facility] Comment on above: Performed By: #### 1 [id number], [id number], [id number], [id number] ####[facility] (DEFAULT)[address] [place] [address] Albumin [Mass/Vol] 3.6 g/dL Normal 3.5-5.0 [facility] Comment on above: Performed By: #### 1 [id number], [id number], [id number], [id number] ####[facility] (DEFAULT)[address] [place] [address] Alk Phos 144 IU/L High 32-91 [facility] Comment on above: Performed By: #### 1 [id number], [id number], [id number], [id number] ####[facility] (DEFAULT)[address] [place] [address] ALT [Catalytic activity/Vol] 32.0 U/L Normal 17.0-63.0 [facility] Comment on above: Performed By: #### 1 [id number], [id number], [id number], [id number] ####[facility] (DEFAULT)[address] [place] [address] AST [Catalytic activity/Vol] 37 U/L Normal 15-41 [facility] Comment on above: Performed By: #### 1 [id number], [id number], [id number], [id number] ####[facility] (DEFAULT)[address] [place] [address] Bili Total 0.6 mg/dL Normal 0.3-1.2 [facility] Comment on above: Performed By: #### 1 [id number], [id number], [id number], [id number] ####[facility] (DEFAULT)[address] [place] [address] 11044 Calcium [Mass/Vol] 9.2 mg/dL Normal 8.9-10.3 [facility] Comment on above: Performed By: #### 1 [id number], [id number], [id number], [id number] ####[facility] (DEFAULT)[address] [place] [address] 89620 Chloride [Moles/Vol] 103 mmol/L Normal 101-111 [facility] Comment on above: Performed By: #### 1 [id number], [id number], [id number], [id number] ####[facility] (DEFAULT)[address] [place] [address] 16396 CO2 [Moles/Vol] 28 mmol/L Normal 21-32 [facility] Comment on above: Performed By: #### 1 [id number], [id number], [id number], [id number] ####[facility] (DEFAULT)[address] [place] [address] 22803 Creatinine [Mass/Vol] 1.87 mg/dL High 0.90-1.30 [facility] Comment on above: Performed By: #### 1 [id number], [id number], [id number], [id number] ####[facility] (DEFAULT)[address] [place] [address] 86327 Glucose [Mass/Vol] 105.0 mg/dL Normal 74.0-118.0 [facility] Comment on above: Performed By: #### 1 [id number], [id number], [id number], [id number] ####[facility] (DEFAULT)[address] [place] [address] 28101 Potassium [Moles/Vol] 4.2 mmol/L Normal 3.6-5.1 [facility] Comment on above: Performed By: #### 1 [id number], [id number], [id number], [id number] ####[facility] (DEFAULT)[address] [place] [address] 38339 Protein [Mass/Vol] 7.2 g/dL Normal 6.5-8.1 [facility] Comment on above: Performed By: #### 1 [id number], 9907299, [id number], 6608253 ####[facility] (DEFAULT)[address] [place] [address] 97362 Sodium [Moles/Vol] 140.0 mmol/L Normal 136.0-144.0 [facility] Comment on above: Performed By: #### 1 [id number], 9887447, [id number], 3690600 ####[facility] (DEFAULT)[address] [place] [address] 70659 Urea nitrogen [Mass/Vol] 61 mg/dL High 8-26 [facility] Comment on above: Performed By: #### 1 [id number], [id number], [id number], [id number] ####[facility] (DEFAULT)[address] [place] [address] 78095 Albumin/Globulin [Mass ratio] 1.0 {ratio} Low 1.4-2.6 [facility] Comment on above: Performed By: #### 1 [id number], [id number], [id number], [id number] ####[facility] (DEFAULT)[address] [place] [address] 40050 Anion gap [Moles/Vol] 13.2 mmol/L Normal 5.0-19.0 [facility] Comment on above: Performed By: #### 1 [id number], 7540945, [id number], 9393799 ####[facility] (DEFAULT)[address] [place] [address] 75420 Globulin (S) [Mass/Vol] 3.6 g/dL Normal 1.5-4.3 [facility] Comment on above: Performed By: #### 1 [id number], [id number], [id number], [id number] ####[facility] (DEFAULT)[address] [place] [address] 09105 Osmolality 297 mOsm/L Invalid Interpretation Code [facility] Comment on above: Performed By: #### 1 [id number], [id number], [id number], 7691208 ####[facility] (DEFAULT)[address] [place] [address] 58024 Urea nitrogen/Creatinine [Mass ratio] 32.6 mg/mg High 4.6-16.2 [facility] Comment on above: Performed By: #### 1 [id number], 1236551, [id number], 9134877 ####[facility] (DEFAULT)[address] [place] [address] 93543 Free T4on 10-18-2024 Free T4 [Mass/Vol] 0.83 ng/dL Normal 0.61-1.12 [facility] Comment on above: Performed By: #### 1 [id number], 3185561, [id number], [id number] ####[facility] (DEFAULT)[address] [place] [address] 76640 Lipid Panel Standardon 10-18 Cholesterol [Mass/Vol] 142.0 mg/dL Normal 66.0-200.0 [facility] Comment on above: Performed By: #### 1 [id number], 7783940, [id number], 8093125 ####[facility] (DEFAULT)[address] [place] [address] 07805 Cholesterol in HDL [Mass/Vol] 58 mg/dL Normal 40-71 [facility] Comment on above: Performed By: #### 1 [id number], 2983731, [id number], 2544176 ####[facility] (DEFAULT)[address] [place] [address] 31826 Triglyceride [Mass/Vol] 85.0 mg/dL Normal 0.0-150.0 [facility] Comment on above: Performed By: #### 1 [id number], 4791455, [id number], 6841035 ####[facility] (DEFAULT)[address] [place] [address] 15518 Cholesterol in LDL [Mass/Vol] 67 mg/dL Normal 1-100 [facility] Comment on above: Performed By: #### 1 [id number], 9341778, [id number], 9095074 ####[facility] (DEFAULT)[address] [place] [address] 99498 Cholesterol.total/Cho lesterol in HDL [Mass ratio] 2.4 {ratio} Normal 0.0-4.5 [facility] Comment on above: Performed By: #### 1 [id number], 2495718, [id number], 6811476 ####[facility] (DEFAULT)[address] [place] [address] VLDL. 17 mg/dL Normal 5-40 [facility] Comment on above: Performed By: #### 1 [id number], 6871891, [id number], 9820679 ####[facility] (DEFAULT)[address] [place] [address] Provider Orderson 10-18-2024 Provider Orders [id number] [facility] 10-18-2024 TSH Qn 2.16 m[IU]/L Normal 0.45-5.33 [facility] Comment on above: Performed By: #### 1 [id number], 7960601, [id number], 6816533 ####[facility] (DEFAULT)[address] [place] [address] 82598 Provider Orderson 10-16-2024 Provider Orders [id number][facility] 10-08-2024 [facility] JoxdyprkNQa4nOy+PGhl YWQ+XK8CBNKmA17eoUAc rM5zF3TWIHxWWhagHFDY BRiBTcOvmpTiUY1ryHRz ZXJu IC8+NH1rYTOvCuyvaYIw v7D4eWV1T54agr5eAUue iRG5YVSdDoLqqviki4hi gNm0WYngOscqVnTd SBLqnW86FND0eW13If54 mPDquBGya3qkwXf0OlZv WUNbUAH7oQpmCZipw2Ad IAVlZ96evITns6G9 IGNvbGxhcHNlOyBlbXB0 wU9zRBybbbjxk6nbxfyx Azc3ui70rSQtu7C4jEY3 Q8PxriU4ONXncWKh FaoexGTWdV6omevcd5cu zifeRmEbORYoTXc9PRl3 ONIfjAmdSnZhDE35KRL6 OJSqtbEhS9VlPJWt aPyuVoY9y5K7Mv0DZ2XO DaafN7PYBFBYEZqdjZF+ HV33ft07X1BlKnkqBtd5 RXOdPWU9sOH2sM7h CEKqUQjaz3Y2hMR1G3Kg zkZqvs3dw3ysXIGzJEcy Z75pqOXqf6P3HBNeuLR1 FXIwjGmoEvCesU79 Oyc+JOHdkDjzq9SbZkpl d5oul5etyDa3KsjbDBPa huGytQiyMSV0w5OnTm8k KUIunTD5iEE8fE1f VgQaTmW1LGkwC093AsFn gDBzSudzW32nP0DgjSY+ OXYdSdj7ZJYuyScjWS7d P5QaGGCjspirnMNr bUxgCJ4sHVUuynhwDLQj yZ5pURPrF8e5DrSrLgV4 QDhdG8MdAFIvtfheMl49 gE4vDoRwMuJ4CGfx N5KhhbH9JZJefAHlTBmb IIM8J27wk5I0XBFoWYWh RVH4dFU0iR9pqGvmdeeo bGVmdDsgdmVydGlj HNwvVDoyN641SEVbuQon PkNvZGluZyBEYXRlOiAg MDQvMjIvMjAyNTwvdGQ+ WIAfVWW4pUujGFJi lVTmHVanQf6jzRcdfUrc CR0gRIAjxxcmRLNstB9m GKTwvZXmsZvfWB5pZQZu abupp536MtOqJMB0 XNIvvOQeV4RtcL4zJhCa BEAoRWXeP8WtvEZeROzq C281ZTrtLfO0FHLpjyNi A8ShFANopQrwOnI5 m4T3Ky5Ot2VjjrgjK6Ix lXRsWtIsDiqxCBs8F3Pp PjwvdHI+PE40NSBdTF78 LFd4IOP3gKauEOaf EHCeK4UsfV3cWcYbYJRr ZGRkOyc+PHRhYmxlIHdp ZHRoPScxMDAlJyBzdHls ZL8eWz2hHVDiYTLm uXfgmXGdSsRmt7cjYCNb LObbBI2sxFggB0ZenHL7 WUMyv8v3Th08J14qN7Rx dXA+EUUqeWV4zOZ8 gA7hCwQdXyA9FNwaV622 XxXflNNuZecyg8rrz9xl aDv0BuO2HHJwmfXcfLng PVN1g1ArPl12B65r IHdpZHRoPSIxNSUiIHZh gVtsxn6obE4fHn6+PGNv nZC7nED0sV4aUrCcAlW0 DNnxO925MmInmCOy Tsneo5qkz3tzmLu8AqQv VUBhsoQvkKdtSFG5g3Tw Yo45W1PmiZyor6ExCps0 ov04uGOhc1H3mRU0 W6ApBHRafkjymHSzxRkp JT0hPJVictggGOZzhH5f AXWqS4r6XlZdZiV4QDax I6CaqrH0IMGthTAm EVSiaBQBlT4ojvmpo1rw pmfaXpTlBYXePQn0UZb8 ZEXwaEfbVlNcTJX1EuR3 RSV6iSWvxD0eeSzd haisxR2qQaj+NSQ8bKAl kUUFXM6oRctmcTV+PHRk WOX8jWhwLNxoNEFjzK3w NIQgD9a8InVvEtW4 IXpvW6EqfvE6VEEprLVm WZIgrPCOfQ5wlmylj9ac pbykKdMeEUZoHOx6KMj9 LWFsaWduOiBsZWZ0 DwN9ULY4dKOhmY1vcIgp nhhuaD2fOqd+QmlydGgg CUQ8YDq5F7JdRoi3TZAn tRfhQQ9qhYPgFKpb Ex5hdTnlbAeaZS1tELPn xjwsb019DdZzy1wnQFTf bZQbSOktYLN3X61vy7K6 TZDmGPQfWOO5iYT6 mN4riHouzisjkMIbvDfs hlQbuPlkKHdcLQmiT287 CSHmsViqBmVtUKp5J2Yl Jme3BDDrqUsaXI3j aUQdPYaiIx1rsEidjOrs LO2yWNFwgajek369DjTv g4tcMCIbuKCgXParUZF2 X87fn4N0CGQsVOUa FLE0cWL9lU6mfEnpopao bGVmdDsgdmVydGljYWwt YXpvL519UGZokXbhZpIc hPn2D3HyHwh3YPBt zOqbBW3pnQHaOWneZv9v mXgloAwqFZ7bQXIphlnj u170RsKle7ydCYNvgCRj HUgsTRA6R00tu0Y1 SGHgADOqYDG8eRW3nQ9y bGlnbjogbGVmdDsgdmVy zGneHJkzZZnmF459VSYb cDsnPlBhdGllbnQg YQpjISo3X5HbKkbmfAZ+ YJ33KCUgCE42oZMqxQXu q8vlmPm0YaVtLEEwGWK0 nSysASuwc7JhRTXx N15nyGVay9S1EVWdyApn eGApHfDwsXS9oA5yDUdn xwblx3hroupsJbcvn7mh dz69lN95Y84cWWrf ZHRoPSIzMCUiIHZhbGln yc6gdB0yKy8+PGNvbCB3 mJS7dQ2fKYCmGzL3BHwt X428KcGmkEGdBvzu r7jxj8fwwBt3GwZ1VRNv vfNezHwoERI0e9BjDb80 J98gXOfhYPAuCWIkGZTe XCLonJzaey6wuR7b Ii8+UVRmxZY6vNK3aI7p ReEkJeU6NXgbI646WxFu vRUyPuguP85gG4HpxLI+ OBWzIbc4KAWpaQlk CF0yqENuBAzfDi4gEDX3 AkRiIyKkDPlrX0ZfVPPt uxewffyfpRV3HMCeXBKr sH20Bw9woLebQLJc tQWLvF3lrhiny9wyazku CkUdKEEwRVf0HHk7ADEc oPheJjZwIIO5BkQ4TYX5 mZItfE9yhIapzilv hI1eO3BeQHDhwsirNv67 rG8eZbEmRuM6AWzvWgo+ C0WLEBLDHDEJRUbqHTGV QPQAHF82BW38eYLv s2S4aEN6E7RrTENvruqf choiuMP1YHFeMYZerO31 qIQnNOjhPn4vn9P7b309 DWRaLBKljA99Cm7q kGzhWQNzoCGDjW2glyeb o9qdlxyvGaGmZVCjAKv2 OZq1UKVjeLnrZwXnYFD3 DuC9AVL4lCWdaS5z qOvrbozkcH6wLkd+MDEv DPXqWMm8OwthhGU+PHRk BYX8qUtsAQflNZNrrX3x RQEyZ1p9SeUsGqM6 IDnxJ2YgXCFoixvcBb39 xD0bAhNnZvH3OGtkI8Tv gfN6KVYpcMLzKXetRNR8 M52da3K7ZDFrRBJl IWI5rPQ0lJ1slXgxyufx bGVmdDsgdmVydGljYWwt RYseT569PQZcgXzeMzhc YRarFYEuGA20AN89 qLFxt7B0oES3C2FhHJBb uhiyngyikND5OKDsJRIz yC18wNBsHWssCq6nt8R5 p121TUOjIYQxuO47 Af5mpSkvZVOxfWVBdX0b gqqdy6dorkfbQpZxBEHn RWm6XMd2BNJgsUtoIvEv TWN0HaD1CTA2oHXr xK8hcEzqxxxelM1uMyi+ TUFMRTwvdGQ+PHRkIHN0 yXifAAidDFNxxP1mWDGw W5w0TaLuFpV2MUtu J2RlJYJhchlfMx31pQ1f AzAvIlK1RJbkH9SyhoJ5 GJNktRVpIGhfNGH0K38z v6T1YSHhSTVjATG7 pOX4jR8zaLncthsvxFKn dDsgdmVydGljYWwtYWxp F468NRLksYkdGpBgP5Dv cmluZyBPdXRwYXRp ML69AN68CO46M2QaQmpd dGFibGU+PHRhYmxlIHdp ZHRoPScxMDAlJyBzdHls IC1yGe0qRRTfJRVs oNuzfVKgHsDqb3ijFESm CTnoQY6pgPytE0EjjSW5 RSVrr2f0Xb34S21pO3Ts dXA+UHMpmQO2wIG6 qA2bHrUpGmK9SGkpH773 FtHtvBFoZpudc8too9aj nIr5MtPzXVGvovLmuDcz WQI1k8AfQh99L59j IHdpZHRoPSIyMCUiIHZh fCdyjk3shO1yEr5+PGNv hUF2eSM0xY7dUiPeTyI4 VRxfE832JaWvzKWy JvljH51xH1VvcRL+PHRy Uhb8JRDetYycWS3koYLs EQqyCc5xKCP0KtHfSiYp YVfxS2QhOKLryjfd hxuywMG7WELhODSmcY52 Qg4xfMslQe2zUAXuOWP9 ONJuvMYgR5GozK2dFpPb HZQnJHFgD1EkiTRx CJryX405EYdfCcZ5JJMk daSsY4BpECZvkSgnWtL0 e8F5Hr6VsSrcePEeYT2m JoOaTJt7Y7NtFwp4 JXJynCxmGW6eaFSfCPfg Ml4dcXuftJfjZX0nIIOs ovwlg673BeVlg0nlFTAo cDSeBXclHZZ6T21s e4U4AEYqVPDiZPU4aJR8 uK5oyTwoueebuMHwiOvh jfYfjJulOBwoJOyrT961 IHRvcDsnPkZJTjo8 T9ZbLxz2OPLqsJqmPV6i wNDlHSotXg2ygHxyqOgq HL2xGUEhlwssy515TmHn f6vbHWEjeTJjTEmw TAH0R19fu1E4XCJhEOFj CVR3aBR1gE4fjLtexzib bGVmdDsgdmVydGljYWwt PZviX062MTByfCwq Ou7VGka9Z1MvTqj0PUCm bWucXX6ubIVsMSwjJr8f uLkmnXwfQL7hZTShkidi e911BkBoj8hzAWYn pUZaCPueNRW3S78vx4V2 JJNvWKIyHTN3sNG6zJ7w bGlnbjogbGVmdDsgdmVy wBpcVGbgNSfzN243 IHRvcDsnPlBheWVyOjwv dGQ+NG18uq26A4GvNiab Dox0TOXwQDG2yLP6fQ3e RAEpMWwiu0C8cJH9 J2J (more content not included)... [facility] Outside Recordson 10-08-2024 Outside Records [id number] #1.00OTGTIFF [facility] Provider Orderson 10-02-2024 Provider Orders [id number] 9#1.00OTGTIFF [facility] Outside Recordson 09-19-2024 Outside Records [id number][facility] [id number] #1.00[facility] Coding Summaryon 08-14-2024 Coding Summary HTMLBase 64 DwokimlxFRa0fIl+PGhl YWQ+BV6NRNRgM80xpBOw mA5vT2NYFGtCYwauBRRG TGlOPiAipkLuMF2uaKNg ZXJu IC8+PF8nUXLiWdntaSQp g8J0jIX6L20mwz0oULcw yTS2WWKjHjDtxknyv2mr zCs2RXmmEareXxCy OLVpaI63ZKZ7rV72Us18 jBOufKWzd9qlqPt0SfWm KHBvXWN5bFtdVRdjm9Ty UXNuV31fxVDyn3E1 IGNvbGxhcHNlOyBlbXB0 cC1iVAbluyscv0sitiib Yjg0rp34mBGgh2U3iMV9 O6DjfcQ6WGIutAJl WqbtkZBFbF2blkpih4vt mmyoKsNbSOGdUEa7DSc4 KIDveTitMqZtZO48GGG6 LWEgtxFwM4QlFLHm dBpkBhS4d7S5Ik7OJ5JN PaopN6EAHEBBUJyvlMG+ HI89pu64B8PkHlrbDkv3 IEAoXHV3rTJ8vI8b QOBcZWhxu1C2uOT1W2Oh vkJvrr1xx5wqRKNuYXkn S70tdURig2S4IREnaIR3 RRJzsGchJnYagU96 Oyc+CCDlwBeuw0TqPqty k5vpg4xonRe9GeysKPLn nqMpmThgRFD9e5CiCp6n QNOrfQO8aAX8mS7e EiArAxN6HJpeW187CdFs lDYgZcisO74bL4AusEB+ KOGsRms1LIGobOjzUI6y R7YgLTEtuswllQLt uLidKQ3qUZDcwnivSFZd kK3iGXFpS9y9BeTzPnU4 JAscN3MlCWDxqmfzUc51 pH3bDwVuJjO9KDap Y5ZsizL0FIGokFRcUThd AVN3M23ko2F0MRSmKZAe LUR6rHT9eK5niGdlrewj bGVmdDsgdmVydGlj SCijBGpbH137CTIxwZcq PkNvZGluZyBEYXRlOiAg MDIvMjYvMjAyNTwvdGQ+ ASGlSXU4zAfhUFEd yTQyVNprEw0qvIjfkXvb ZJ5nZZIgzayyALXwcJ3m MCLqnTHdeCpnTY5wPDQk ppdoz907KxRnZOV1 IBDxwROwM6MpwN5bGgTd WHGdMZImK1UapAZiEMmo Z918KIznCjJ4UKEqkvLd X7OpBRYzfYhwKbQ2 j2O8Xr8Ez8AdvmvaR8Cq lBUsEyIgChteOZd4P4Ma PjwvdHI+IU97ZEYtPS75 ITd9OZJ4eYcuJAsm COQcH7GrzS9cFnVeFBNw ZGRkOyc+PHRhYmxlIHdp ZHRoPScxMDAlJyBzdHls TI6cTf8iIPWrPLZb nVshkLLgQsQoy4fyRHNb IJfcEV0gvVctW3OfmNA5 VPUms4c7Wb80T60qC0Lv dXA+DWPwyXJ2fMS8 vN7uYvXwSzO4KEclU446 BoQziMHnDsogu9vbp9qi xEj2AjW5YSUelfGrgNgk SLW3o7LpOi31U65n IHdpZHRoPSIxNSUiIHZh eWqvwv0xcI6kPa1+PGNv eLC4lJQ2kL0xHvZjKeP3 YXhjI855ZoZphLZl Mrkhg6wsx6ngpAx7ViKf DMQdraBgmMlrCNL5z4Gx Mo45H4LczHykd0YmYce5 pl42hXHuu9E9wDK1 E2YfXLAtywbuiXGkaDvg FN3yHLHokugbHKPccJ4l GSGqE8m6JfTwBbR3JRuz N0HdcgQ0WXGgnNFg BYOrzKDKyQ3nmeldw8wy trhiNxBaSEWuGGu4VHk8 MDQjcHxmLzRoJGT5AaN5 QAS8zRXyjY8opYvs ocajpR6zTgj+RBD8yALq wLURIL7yQzipwOI+PHRk KEP8uWelTWesIRWhhK3v TKCkD8j7GfYgMwP2 NAzmN2BlkmB3MKZszZVg ZBPkmWUNdI0wzlqrj7vp npmpIgWkDNLdEJd7IDu5 LWFsaWduOiBsZWZ0 ZvO2GVZ5dSFxxK5knFqs jsavgY6bJaf+QmlydGgg XMD0IYd2R9NlXgg7NRQx aImkYR6pbTMdUWkj Zi8uhKfdxQdzEH0qYGSa dfweb763IzJfl0sdWIHm kLBtRSsdGNK1B79vx2F1 CLQvJEHzCWO6oXE4 xZ2ziMbzxzdrmTRuzBia wqQmbWoiGBjlMWgfO089 RNHlwZdqHbRjYTj0M3Iy Wah7JHFgpKsqMJ2n nWVuIVroKn4caOvewXpj KY8rFQMiuhtvh183XnEy t9yvLDWrrHPmURppCOY0 G18kk5J3LHMiOZKv YHK7cRW6tY2suBawwrzw bGVmdDsgdmVydGljYWwt TQsvG990HRRafFjxBiHd rSa3L7XmXub8HDEk iFkrLH8crAClKHxjUw3h yDwcmTfgHG4zSCCuzpwr q765BkKya3mcNMVluKJz JXtuNQB0S33oe5T2 WTEdPBEsXBP4vMC2yH3f bGlnbjogbGVmdDsgdmVy gHvrPHqpALgzT380EJQz cDsnPlBhdGllbnQg SBnaOMi5D4PsAbwppSA+ VC63DXOlGC53vPUsuJVl z8nkjIc4InHvTDHrIKR0 pEdbPAgrm6XhWHYr I23oxNAqu5Y7WSAnuFvj tOBgRoLhxAN5jY4wVTvv bcdeb6asjuyxUqlyq4gb iv70sO87N78fIVfd ZHRoPSIzMCUiIHZhbGln fk1kwW4cRs9+PGNvbCB3 rWT1uB4jCWEsHgK9BAuj S276IvYqsXBmDizr c3mjd1nniGp0ZbT2BFEm niJlmCgfWPK0z2LkZt71 Y81oXYvjXIGxKAUsQSZm OAEokFnkft9crQ7c Ii8+VPXtdBG9mYD2dD5x RcMxTpZ2SVtmF696BlVa lWQzYhtdQ22dG7YiuKG+ IJBrHcf1DDBcrLef JH2cxXOdABxkGp1wUNH4 PfZeKvTsXResT8OlUMZu ofydjhzynRO9CCHdKQBo yX85Mu0mcXqcPYEo lKRLbX7sgbegz7pvvufc RrSgGJSiMJu1KGw5YCVp yVlqCpQpRYB5UlE2IYY7 sLMiiB2xwRmdckqp dQ6aF1QeDEAtpsbpHk24 mE0bShYlTkB0PEndDfh+ E4MZOCCDPEKJRQdsCJCY QUBVXW18FF06nAFd z8J7nDW0P1FyAVLxtmtm fvjbiTL3EWVhSHAazO36 tYJjONyvIc5ut7T7z492 EIJnBKOwqH43Vi3r aSdjYXOilCDZpT4rithq t2mqaubfTmVoZFUhMNv2 RQm4EQNxmKozQgAdSBQ0 XoT9OPO8sLPteN7w bKlgykpmcB1iNbz+MDEv IAWwHVz5TtlcxWN+PHRk RCU0tDbtKXayUKBngQ1v KKDxI5m6BdLsFpB4 HBqfB9IiXMFdhtdpNy59 sT6jFgEqUaA9ATkjD3Pg jkS0QCPyrIXbFHbtHEQ2 H07jd6S9PXUvRWTn WYD2iLA1qN4xfZcfqati bGVmdDsgdmVydGljYWwt XZdxR474EIUoxCcqRkez ZHioQWNjUB53QR49 pHEud8M4bPR8L5SvZDHs mxyvgzniqHP8BVYuXBCn tW48oVFiSNkgSu5rm0P0 v889ATWfDRVoxW75 Zn2xaZjyWJScfWYWqG5g pxuty4tzlngfJiPsXEXz AMa0NWv0KOOkwIvsGsAk OAE2ZqM1PXL0oCYh rD4ukZeiaoyrlX6aDct+ TUFMRTwvdGQ+PHRkIHN0 kYsiXLvrVJKdoU8fTQIf K1x9FdZnEpB2FAzx V6BpDYRxvgniYd07bZ9r OsTdQeB2IZruP9FcybF3 OHZqaSNcZAmfPRE2V22a c6R6KQEwWMScATV7 bOK0aF0ruHqeitnboVSj dDsgdmVydGljYWwtYWxp S324HQFqhOcoXk0BIE14 HM93S8SqGixzpZId bGU+PHRhYmxlIHdpZHRo ZRqyKQQhJvPvoMgsKI9x Md6rWZZlAQPbzEhieVYp UyMlj8xoQIDeONqp QV5grHrzZ2OxpIK2BISl h4b1Qc96P69fD6CeoYW+ AXMahAE7hHY2fV2kXkPj BbR2ATxaR964XiOc lHHxTixfm2uoq2bqzWn9 IjMwJSIgdmFsaWduPSJ0 f9RxZt71S99fUQxnGSCc PSIyMCUiIHZhbGln vh3rkE6fNu8+PGNvbCB3 oON1sW6xAeVoEjN9ZFzb N575WvVmyIYjFcywW46l K9IpiIC+PHRyPjx0 NKEyeJruMT9gdZDtCFdi Pc7zXEE3VrAdLpBnVPyk Z8MwNMFukkniijpcpLC2 SRNqXQKenW43Kl0z iMijPo1sJUGoNLX1XEEs bVAeZ0PbjM0cWyPyPIWi GRIxR5YiiFQjJPeeJ201 NUptRnM7ESSfsdPr M4KoVMHfsPpbKfS5d3S2 Aa8NtJbxmYIhHO0yTqCm AFa2N4JgZkb3FLAanVxz JA4ajZFfYTkiKv0h wWcdgMndEX4tPQAsjozn v920NzYth2vcNWGyaHGv RAexGPR6Z47ws8L1KXJj ESVjPNT9oED3dW6z bGlnbjogbGVmdDsgdmVy eBdtFPlqAMsqI596BTHl xZyiUrDFTht9H3EuEve5 BMTyaGnsCO4sgHMj DEkcSu0odLsylGawTR9r XLNkpytjq574XmGtf5hi VPTmsOUwGCccOFC1Z21d n7R7ZSRtMLZiVTX8 dWN9fA0hoObwfptzyZXw dDsgdmVydGljYWwtYWxp M794SCIfaWogIw3HCyl9 E2JbKwk6OSVnpDaj VA2mgDIqHIyoKk5obKsc cHibQU3zPCVnbwlsw815 UyAun3paWPSxyWIoQEad XZQ9X48sg8D6IAZj ELQtCBV3mCN8rO5osKeg bjogbGVmdDsgdmVydGlj VDsaZQriJ110XSGtzBya PlBheWVyOjwvdGQ+ QM12ej01P8BpInwrCvn0 YWHuTLP7iFG5uQ9oFADo KMroc3V8wUH3B4HnyaHu ok4wf2riCHLhYWkx Y29 (more content not included)... Normal [facility] Office/Clinic Noteon 025 Office/Clinic Note Patient: [...] 105.050 kg Body Mass Index 32.79 kg/m2 [place] Body Weight Calculated 74.087 kg BSA Measured 2.29 m2 General: Alert and oriented, No acute distress. Neck: No carotid bruit, No jugular venous distention, No lymphadenopathy, No thyromegaly. Respiratory: Lungs are clear to auscultation, Respirations are non-labored, Breath sounds are equal. Cardiovascular: Normal rate, Regular rhythm, No murmur, Good pulses equal in all extremities. Impression and Plan Diagnosis Diabetes ([id number]-YL E11.9). Plan: Discussed with patient would like him to take the 20 units in the morning and 15 in afternoon. If his blood sugars are dropping low would cut back on the 15 in the evening. He does wear co (more content not included)... [facility] Outside Recordson 06-25-2024 Outside Records [id number] 1#1.00OTGTIFF [facility] Orders Onlyon 06-03-2024 Orders Only [id number] Richard Boykin 1940 M Date Provider Department Center 06/03/2024 FERMIN RAMIREZ Family History Problem Relation Age of Onset Stroke Mother Valvular heart disease Father Family Status - Relation Status Age at Mother Father Normal [facility] Coding Summaryon 05-30-2024 Coding Summary HTMLBase 64 TsvnkqwaYDx3cMv+PGhl YWQ+QV6KKIKqI05ksIHr zQ8tQ5MADGrXDwwoJRFY MMiIRpYltsXbLC7pvKJk ZXJu IC8+NH1wFMDxMlyppMJp s0W5vYD2Y35pox7mNQpf mFG7XUFwPlYgvoshg0iz jYz8UTyxIeobCyYz TEAbqT86YMI5hJ05Ou57 tAQtoLLnv5bkmMl8RjJf ANQhBQY2yFliSSgqc8Wr LINlX75evMGqq9S8 IGNvbGxhcHNlOyBlbXB0 wC3yUHkaesueh3ltsobx Gdo5it33aHFnc3I8iBK7 H6VpmyN4QOMjnJYt VqaexIKKuO2odqvez3vc dfrzCsGdXZHrUCx1JOi3 DBJnnNkwSjUsIE35UJA1 LZRjpeUmW3CvWBRo iVdlFiZ3v6X3Kd2PT4FN ErzdA8VJYFKVTNovyGV+ VU14ex41B8YfHjorVuy3 OBYgVDR9lQL9zS0q SJJwJOmdb2G2nXY0J2Jx wsFdez1en5wyNOHbSUzb P42jaRKwy7P2WQXqiUT1 LSNxdCxtArVtmH03 Oyc+YHLleYqne1JcWljo p4fcp0jvfZc6BibkQZNt syTwdImyFVX9j3CaMb1f YGDmcWA6rKK2yD4f DmPiGpS2GFfnV961UlLy vEVhZjyjX09bC4BotYG+ PHNpVva2BOFguAiqWA0n Y1OnCVGgjzwdsNQe tVjwSH0lHOXsuqpeBSCg pN2mJZEdV3p9SuKqVtO9 PLugQ6PwWFReqhssIy33 dJ4eMrCtLfV8WMvb K3EudiJ2JPKrpJJhJKft TDS7L47go7N5HOMzKFZp HKJ4cYZ9hS4djWshrcqu bGVmdDsgdmVydGlj PFypZXzzQ216KKElyYtz PkNvZGluZyBEYXRlOiAg MTIvMTIvMjAyNDwvdGQ+ FHUnAJK0qGlvAVJf aGJnIHcfQw9ffLwmtEmm DE0aUHFjkyzkYWKkxP2h EGEmePYmfLemIO1iIQYh kiaox874EpXzFNP9 UMGfhFQsB8ZqzZ3iKdOa IDJvGJCyW4GutEGdJWns X543CQwbOnE4DQCzalZp H8PfAKGyrHpqUgD5 w5V9Kq3Lx5DtophoM6Iv iQRjMsNsEoanWEa7O5Qv PjwvdHI+CH91DPYqRH27 WNt8IAC1sQskBZyg BDElQ1EqkY3yXzLpHVWs ZGRkOyc+PHRhYmxlIHdp ZHRoPScxMDAlJyBzdHls LE9fYr1jBKWpNLAw lGwirGTzAyOqq8bsWZGy GSthOY1cqQouE1HylFY1 NIAks7c8Fb77V68eB6Ft dXA+KFFtrXQ0lGD3 zA8dAxOgVdD5PPimS282 QdLoqZSzMtngl4zoc1dr dTw9NbH4XHNkvsTtuApv ZQY9o9GqPw40O05a IHdpZHRoPSIxNSUiIHZh iWaako6oiX1eIm7+PGNv qML9vYQ3zW4kCbUcQdV3 YNduP793FpXqeYFr Oaurk2dvt6zvoCc8SpTi HGRuoaNctDwoURE0y8Yp Lm81S2ZerHwfv7BzPmx9 mt88iETgv8A8pUB6 Q0WoOAAedukcsPTsxSin AB3rYIVtssmsELZscY1j NHYsE2n8UqTgNwO2DCnf C3XxhtH1YRIxoUOa TBQmlVVGgB2rchtgd5ic gwthJpShKZXsUKp6SAe0 TMFiwCimUyQmGBP3PyK8 MFI9bJTawV0nzOsr mhepmL6gVlm+OBL4pBXk dBWMAB5aMzwoyCI+PHRk LYK0rSukGBsyWNWiuE2q BAAoT5l1OcBaRcQ4 YGrnM0AukrG2YVJcoQWi LXVyaIBQpZ0kxhrvi6at lejkRiQhGOWoZCk9TJp8 LWFsaWduOiBsZWZ0 OsH2LTA9ePMhtM9juQlp eudmgL9cEol+QmlydGgg AFI6AYp2V2AuYsu5CNZo pQlwLR0bvHZyJTyl Py2naYzgoHlqPH0nUVMo dcrpt961YtAbi6hsJLGt qEQiCCilCAW0N38ry7E1 ARTuQVYuYKU3nJF0 lA7ebMtsiqbzsVSpqGyb dkFanAnxPHgiQXvgP571 PQOinLiyNjOtOCt5D1Jy Ykg6XBZpaOrsRJ9y iJVdGMtjWs0aqTapqGvy FK6pMXNwutfwi173RcDn w2ipQWVhrIQlIQlfCFW1 X10lm1Y0IJSoSVUp BCT7uIO3gM7qoJbxugwe bGVmdDsgdmVydGljYWwt FAvnF079BRPfrSxhElJg sIy2K7GbCsp8NDKg tYcyRS0zhCXiFGwiTb1m nPuxbZomED7oSCRkwzrw j981ZbVie3kzUGMrmQGz GOufTSY2W16os8E7 DUCqQNSbUZT5uAO5aV6s bGlnbjogbGVmdDsgdmVy aSauKPkzOVetI134RJUv cDsnPlBhdGllbnQg WExpOFl1Y2EbPlifiGG+ DV53VFNqAA81eEXicFNr z3erlCc5UnYnOGYoFXR9 iZkgRDfxf6DuMNSo D16qdZFyx1N7RATkhAbn eABmQhQdbFY8pA4zNCkz oxwmz7dyudutYvqcp8gn hs32tH02K55qECer ZHRoPSIzMCUiIHZhbGln dx4djK5mTb9+PGNvbCB3 dGH9kL3yIXBsFkT4KHna S404NpKeuWZsMrij c9ihk9crzOx8ByC8OWNb pzUyzRmmXWL3s9CbMh75 L68aCPncSPJfYKXaDDRn ZLJhgZmuvv8pyY6l Ii8+CCZwwNN6xNE2gU7l PzQkQnL7QQkwO689FgUl xBHpLlcfL35tD2HxkYV+ PGEaTeq4NEGybHpa YY1orQIuZSunUj3wMNF7 ShPiKiHiEDhjY4OaYTJw fuvktjzrmKB8DRLfTJEx lV25Ln7esPahDTNf eVCSaA2lxsrtk0cspkof VeTnYYXuFVi5XNg9PXHb nGahCnGrACS3TeO8VTA4 qVOtlA0gjYcctxlh rM3dD0KxSAGnbxbjZj20 eQ6hRfDtVjW9SEpdJwl+ H1HAWXNYPHXRUWdlRVNH RSHGIZ62JZ29sGXw t7D0kQL0D6DrMPEmzowo vsiykKB0ZIMuXUYoyR44 sZMzRPuzBh6wz9Z0w023 CGSoSONjaW17Js1a bBghXXYupVZWxE8hakfm b2hgsegqTjBnVGSyECx1 LUi1FORvtTunWuTrGXD0 JuT2AJN4cLAodV8q uMfvxxfysI9zLsc+MDEv YSGwQMy7KbsxvEB+PHRk FND0pJsxDJooZAKhdY4w BWToS2v8TjHmFjK9 GLpkX8BbNLQzvwqxYk69 uJ9qOePuEdX2FYpgY6Ib peX7QUZowXFkWZbpDNK5 H88jb5W6XQBoVQDm JCS4uFW8iU9wgVhwvkki bGVmdDsgdmVydGljYWwt DWqmJ951UUPbrLfwGicv CHnrESGaUU60LV64 aEVsp1Q3rUJ5T5BvWIEs rrepgersrJD5LPEiAIVx bO39lBVnJQdkSi3ey2M8 f985IQWgHFZufU11 Yw0vvTneWWSlnLMLkV5v csvrv1yozqxwDoRcEJDf LIp2OAg1CQHpkEsjCdHp QLL0QnB3BKI3iTVc hP2tgQrgkykfuG7zEnk+ TUFMRTwvdGQ+PHRkIHN0 xZocPGchNQHclC7zWATv C3n7ByRlKfZ3TWuu K6MqHGBtexxfUk09vI1u LxWrAjA2GYygI3JyadM7 LPRhuMNeLWjcOXX6Q02r o7G7MPDnOWVyKZW0 lJO1iY5pmRjrqcuejVSf dDsgdmVydGljYWwtYWxp L219BRSdeGnrVkUdK3Fw cmluZyBPdXRwYXRp XZ11YE75BR28G5YgQzur dGFibGU+PHRhYmxlIHdp ZHRoPScxMDAlJyBzdHls AP4oTs2xCZZeAENh vKhddWZaUfHav1bsILZt SLriXJ4wnQloE6CrkDT0 QBEum9w8Uc26Y57xO7Rb dXA+JPLfaJH1cWM5 rF6yFwEnVcN1INflQ602 KfFdoQNwXdbhp1rkl9fi oCf7JxZfWTYmzcOpsJsm JUB4g4EeBq50B73m IHdpZHRoPSIyMCUiIHZh kZxvno3noX0mGf4+PGNv fSZ5cJD2hL4qHlSxBjL4 TOvyG660AoImkWYn RymcK72gL2UntES+PHRy Jeq8ZUBudMrbEO6xpUAx NRcfSb9oAKH5XxKrNbPw WQjcZ0NaZMUairvy xhiaaFC6PVMqHMUgxO89 Hz8lhPxpYn4nNJHgYWA7 GASaoAIbR2NppT4eNjKu BWKkUSKkS6PvnPUa YGrmR170PHmuEaR6ZLZd xdWlU3AhJRVprVyxCxK1 y6D0Ni7QbBmykZSkXH6z AsOiUSl5G8QoWmp4 YCKlwDmcPM8vrPXnKRbi Gj6fbLngkKxqKQ9qATIg cbtnm144PzPmu5smDLGg bCGjEQigIZW4R43f y4M3VWChRPIbABJ5sOL9 sQ7xzMsswjylfWJtqFeg byCjbDypGUfwZSgzD517 IHRvcDsnPkZJTjo8 B0MnZvy3VXOsyKgkKF9l bHTsYElaRo7ylOxbuHin YI7gPZGujpohq364KoHi v1adOMDiaSSlLHoh NCQ2U28rv9L8LSApGFVa UFY7iUH5lU1zzJthcjch bGVmdDsgdmVydGljYWwt BAdnL041RQZwqEcv Iu3NPfy7U7XwEea9JXRn cQeeYL3bbLChHGfzWb4z wYrbcHblVE8eTDOocoob n240EuKdn1qaCTTg pNKyKUoqBOB1Z89dv6W7 IHGeIDAiCSW5uWD1eG0n bGlnbjogbGVmdDsgdmVy jOspPAsjTKhsR253 IHRvcDsnPlBheWVyOjwv dGQ+TH06lh31I0KyIrxx Dqg3BAZiMIJ3bCC1mT9m XIMhENjsy7A7pBH1 J2J (more content not included)... [facility] Coding Summaryon 05-01-2024 Coding Summary HTMLBase 64 UevpbblzPFo3lYm+PGhl YWQ+IZ8YVPUqQ66kbZKv mI9pP5DDZAyCLhteYLLX FUmIBbBtutTjCV0ikYKo ZXJu IC8+HR1kENXlAcuogORk j7S2kST3A64qcq8wOUyo uPN9EACaNwMhtgrei9qj nZk0QIjpDrhvTzWy QJOsaS63UCK4cI00Be48 pNKntVExc0aspJu5LeTr HQPoMWK7eMnfVXvcf9Vx UHKdN51ndUZde9H5 IGNvbGxhcHNlOyBlbXB0 sT5pBCnyraavu2roqube Wzh3bl00rQZvd0G4xKD9 U8UvzzJ6EYSsnQBy PbnhdRZKzN3yvvjhi4nj jbqtMhQhKUHrIZn7ZKr9 MDKndYsjKvXbVD03FIM3 SECaxxUvI4ZaLRUq kKdcNrL2y3L3Lq8IZ1XE PiceA1TDTVESZPnfjLM+ ZJ32lb43B4NiCikvMfr4 PYPgYOB7jPR0kC9a XATlKTqzs3X7iXO2E6Zz slByge1nt8nzLOJgXDqf J04frQBmj2T3INSwaLU6 UHIpiKujRuGiuS31 Oyc+UQPpaThpz3HbQhkz x4ece3aboAo7GddbUGCs kyVjvJejFEU8b0BrJc2z XDKjkTX9xZN9vM5i UoJcFkI1VNbtJ478WiTd oZHrXvxnM23mV1KazXI+ LWHbCyw0GNVcuVurTD0s O7MvFRKzekkwbGFu cVrxXF3nHXHesjnwDNDa gV8fYMTjO5s8OaZqWkE2 HKomD5VyTGKjurxfBl60 hO8pHqGbQkQ5OLzz L5JddxU1THEosUQoKMvk QXW0U79lf1C1EQHjZXKx DOI5oQM3qN4jgVqbfzdt bGVmdDsgdmVydGlj CEerDIfiG863FALoyLis PkNvZGluZyBEYXRlOiAg MTEvMTMvMjAyNDwvdGQ+ PFVuZZO7cVxzQPRx gNVgRYklDz2dxEidgAvw FD7pAXOgvebeDOTuxT0e BEJozYNoqYgrXF8qQKKr dhprd281NhTmWSX9 ZKNpxNMtD8HrgH3pGqAl TKNvOTTyB2FbcKOaCDqd Q617BQlkBeG8KGLwqfOe A6YiAHYnrWmdOyA9 b4Q9Ng6Ea3OzdtoiC7At pWJfAsBpQckxKOl3V6Iw PjwvdHI+TM12TRWhLI32 FXn2VXX3gKpwFSpo BRWrR8AtsL7tQwTuLMNy ZGRkOyc+PHRhYmxlIHdp ZHRoPScxMDAlJyBzdHls OP4uEi6aOYTqMEDz eNzdtFXkEkTrx6boXLZg YLyhFZ0uqYmlZ7SdrDL3 NLZsz8a4Uo39K65lV1Jq dXA+AAIcqXM3uHJ3 mC9rTeInZqX9JUsbB359 WdRrgNCfUssvr4agw9ec lFj8OsN9CMRhxaOgmTsd MQV0l4RaMl41H37a IHdpZHRoPSIxNSUiIHZh sCdkcu9myH6qWw7+PGNv dUO2cRN6gO3fMsOkBvJ9 NSwhZ236SbDnxZSt Imefy2vkz5ksdCg1FvNb XQOxnhAmfWrjSLR2h3Gg Ku25Y6TopOdhk4CzIlh5 rb50eKUmq4H8vXT1 L6XoSYRpghxgxDSibIlz YM1tFUOvnggmWNXsyM7r MVNnI7n3NkDyJiD8LCxc M3ZodaL3ESXctWSj PJHoaBHPqX8tbatds6xn conxDjKoJOVkYVp8QLg6 RIBirLdzRqSqKHH3JoE8 RPT3vQYcdB8wkGdy jkbnaN2mGoj+CAA5kBTl jNLCWG0pEojacBL+PHRk MZR0uGfwYQukHWJqoF0q PLTaT8a8ZhTgNpV6 ZIbwM6ZdqmG9TFIuoWBv ZLOtqOVXmD5ddvavu4dx pdfaHdCqSJTkVNs7JQe0 LWFsaWduOiBsZWZ0 KoA9PXC3jFEpxJ1kdWxg ieokxM5pIdv+QmlydGgg MIB7FMt9H3ExNyu4ZREx aLdlWM8upRRlZSbr Ws9cvLxgdYdtMU3iWSFo rujsu088GxIug5diCMUr kMNyVJurBHH0S49jg9B7 WAHwDUUbBRO7qBX3 bY5joVkxeoucxOColMqv deHccUbkCIfeKBjdL651 DJEgwDqaGeIoUGs9T2Id Qjr3ARRjjDzzOF8o tGAmHQmcDq5dcCxujNoc NB2vRIIezuqgm935OkYs n9hfEIEdnXDuFHdwMSX3 W96eo7C0EOZaWXPf FDN7gMT3gD0piGyxeyov bGVmdDsgdmVydGljYWwt OJagW199INMeoMcxOsGo vVc3Q1HlLez0YACy uZzrIQ5nvPKnYQkpRd5x rTmdiMbpDD0xNHHljtmf q543HoKsr6lsNGTmdHTs RNciNAN3B58ac1U9 JZAySWVpYPN0kSF8sQ9k bGlnbjogbGVmdDsgdmVy tZpmNNucFFkpF715KSOf cDsnPlBhdGllbnQg XUjaCKy6Y5CeVgzhyHW+ MM96WMWqGN86xEIscKIa k6vruZb3JyJcSTTiPES0 oTrtGVcax7JkKTNt X69zzJOsd1N4PQKmnLqw oSEuUvUrsRQ0oE7qWKjv jfmrz1uwfbbjZqpqh5nv jm87aX80U93qZDgw ZHRoPSIzMCUiIHZhbGln th9siC7bBd5+PGNvbCB3 rCQ5vV3iXOLrYuF2XRqm M636MyFddROuBzsq k3day4yqpAc3ArE0XHGy xxKhmTfbQCA7i7OeGl47 E95eBYdcSRDfZXBpOAVs DREngWxaqw9seY0h Ii8+UATmqYG0bEQ9lY1f MpCwTkD9IMpbS546SdSr mTMbPjqyD57bS9ReiZR+ UDBsJml2ESHvjRgk PF6qbAWfTYweLg7oDFX4 UfJqHdPwYIygG4YoBLVo vkvekgecdFT0YXSxSOQs eD73Qy5utWrpFWYx cJGLmR9evoxyr3isjlfl ZsAmBGVySYu8NCn3OXZf uXweEuLhWKC9UoK3WEO0 bUUrfN1bqQflmsvo fJ0eB3IjEDRbxcgbSx18 cO9qYcAnSqX3DIpbRzu+ F8DITBTKWNUEYWhiRZCG VTCIHM85DQ17hDTt i9P3bQC8U1TxDJAahybq kvtsmRV2UVNwRZVkeN71 iXMiKOvuWz4br2D9g812 HKEtZDHysU75Bc3x hGotQXDlcSJEuC2azciu v6sntchbDiKuUKWiBMm3 BKh6QXDgeXkfCgHvOLV8 NwM8WUL3vPIqoC2i hOxyamzhzT7sAzd+MDEv MAAzZWg8JrwznMK+PHRk JMU1xAblKOhnPKClzR1i SOPxP8n0DeWqGdE8 DSsuS0PdHAFxpvblGg94 lJ4aTyGxUrQ2ZVqbR4Jx nmO7IIFfxVMjORtlGGE4 H64kc9S8PPMzUNKf GZP8aLZ9bZ8mfRnrcxqu bGVmdDsgdmVydGljYWwt WKqkH752WSHepGzvTmdd FMvhDVDmFN18QK30 vJRft3K6fKH4L7EiMLDh jpbjidiutVZ1EVBdZXPs yL17uSQsOMbyEa4kw6R3 v893RCAiWNShzC05 By7nlJwyWCPbnJVZbE9d kyied2gfdfliYuZhAJAj SOp7MKl3MVPkcQsyDkOo AIL0CpM4AYB1zSDl yG2dsBtlbmxogM1rKwe+ TUFMRTwvdGQ+PHRkIHN0 rCotDBlfOYAliT2pFWEr T3x4ZsQvSvD3DHdb F6TvXYNmypqsWn89bO5d ApFnZtL5SPffA3SpywT6 WQQsyHPzZQgaNTN7V22e m7J4JKZpEAAhCKI7 jMO0hF1ciOxpkvmsuAJa dDsgdmVydGljYWwtYWxp P501DJOezGytDb0KAZ87 PL17X2AtBbqfvANo bGU+PHRhYmxlIHdpZHRo JUqoDGQnPdIauUzlIL0q Qc8qOPWaGGNdrImbjUXj XfIxc2lrALIqWObd QX4itHjpZ5HliUP7GFZr b9t9Tu42E54kE2KkmNA+ IMPwxSE2sIC5kL6oMiCb WuT6GAgmW855DbAt uQZfXnmph1gpr0yvyWk0 IjMwJSIgdmFsaWduPSJ0 j0MnRa38V86sXWcpCRUi PSIyMCUiIHZhbGln kf7btF4tAm4+PGNvbCB3 pPJ9aN0fDnKsYqK1XHcw N989IvMcdKDwPrkwR07r I9PpuHW+PHRyPjx0 MPXunAeoDF9vsKSaAUtv Ih7eBLW4ToYbChIrFPut X3NtSOTizglwqldshQK0 BHAmGMQdxS41Lk8v bHxeRk6pFNQeUEL5MYDd iWAdE5RxdU6uKzWbKNLi XZTpE6BncYPdFGnaJ370 TYwaPhL7OEFvzhCd D7AlKUHmpKztGaC1m7O2 Xr0ImCkrsQZkIS9hJsNp LNf0W6NxGsn1FENtgVzj VR7ccXAkDThzRj5f pDhzrHzxHJ4xHJKwnrud t124MnZqz1lvRHYbvGLm GWamTLH8B13le5J3LUAd CUOzFQZ7dXV0yZ6r bGlnbjogbGVmdDsgdmVy hRuuJBqlTFhdW745ASAb pHmiQaONXjy5P6LbUun0 HVLqqMvwXZ4ytDFw MGqfRp5kqJaysKzaFC5e ZNBnegyjf281OkNiw3uy PNYeuCHcGQmiROZ2B95f y1H0DURyLSNdUWC0 rVF8xW5abBcmdlzgvTUg dDsgdmVydGljYWwtYWxp E471PFAbwJhsHy5YJug9 J9HqMre6SNNuyGvp ER2rxMCmCKhrXe9pkIrj pLwuTQ5lSVZlkrnnj467 OsXlo6jmLDTywHHtHRpa XUO9Z96fk7H0GMDk RMUyRLA9cQF8lS4gaQsl bjogbGVmdDsgdmVydGlj YDihNKfrZ201XCIegIpt PlBheWVyOjwvdGQ+ OW97uz23P7RtNivdHhq4 PRKvNPY0zKQ5sD0qSOSu FRmev2B0iCT0K5QbulTd zm3lg1saASTnKOhg Y29 (more content not included)... [facility] Office/Clinic Noteon 04-18- 024 Office/Clinic Note Patient: [...] He had done blood work while in [place]. Reviewing his continuous glucose monitoring system for the last 3 months was done. Averaging A1c is about 8.2. He is also seeing his sound effects person who increased his ropinirole 2mg to 2 [...] 106.230 kg Body Mass Index 33.15 kg/m2 [place] Body Weight Calculated 74.087 kg BSA Measured 2.3 m2 Impression and Plan Diagnosis Type 2 diabetes mellitus (EAG54-PU E11.9). Plan: Will increase his Toujeo to 20 units in the morning continue at 15 in the evening. Continue watching his diet. Continue with continuous glucose monitoring system.. Orders Orders Evaluation and Management: 17758 Office visit - established pt, Level 3 (Order): 04/18/2024 10:01 EDT, Qty: 1, Type 2 diabetes mellitus - Restless leg syndrome - Acquired hypothyroidism - Hyperlipidemia. Diagnosis Acquired hypothyroidism (XYO71-UR E03.9). Course: Stable. Patient is not going to be going back to [place] we will plan in July getting blood work checking kidney function liver function cholesterol and thyroid.. Diagnosis Hyperlipidemia (UCM31-ND E78.5). Course: Continue on statin. Will do blood work in July.. Diagnosis Restless leg syndrome (PNZ65-NM G25.81). Course: Chart was updated with the change from his sound effects person on his (more content not included)... [facility] Coding Summaryon 04-15-2024 Coding Summary HTMLBase 64 QhjkldizQDy0nWi+PGhl YWQ+NP7SYLXdN65dxKCw aZ5qF1GFISoCWtjcZECX LWjWOvKrgsEuOT3ljSPi ZXJu IC8+ON1bOZDgBdeebQAh k6L4oUM5K02oyg0oWYrq lIH3KJRbJjZnctnbe7no hRg3UCszEfbxAaNf OPGvuX10URE8dZ73Li92 hAWmvSChn8nygAs0OjKe ASHfJDN1qOryRSabj1Tp NXPqY58qpEZoa9N5 IGNvbGxhcHNlOyBlbXB0 uL1kEInggqjhz7ybrnqg Bnm1jg38vEFrt0E1tVD6 B0DbqpR6HAEqoVLr LhffsSEWmM0dutexq7js femkNjDfJOEgNFa0NFz3 OIMmlAngBsTiMO67NIA1 ZHTuzyMkP6CpXJDc zNimLwR9m5E5Fo9TK0ZT LfprL4WHVUGCTWebfSW+ EQ99rx32A0YkQtpoKqg0 IYPfAWZ1bMV7iQ3l GQVmFFtlx7F3jEP8G3Td klOjrx5tz9gcATPeMAsr A90vdITil5I4PLVdaAT4 ZTYraCzzFePdoT34 Oyc+SKKudBzdm4JrJrqg v2ddc6hjyQp3VengLRBn aqOauFjcCNW2p5AxYi0h DEZooYI4wVL9nK5f HbWrJoM9GDofM001MpYz nLBePcfcP23bZ9KklNM+ UXXgQwp5NAMgbVdyPH1z R7KfNEXhdsexlMKx cRglUB5mFDWvepjkFULm qC7rGKQqC5n4SqTjRfC2 VUfoR5JkHWEwickmJz63 oO9xCxPoTyV5OSlk M3GqxgI1JOHthVBcFMfh VVW2A48sq5M3KUHbWNKy NLZ1fRM1fL5cvXrcoqet bGVmdDsgdmVydGlj HOshXHszU901MAJxcCjt PkNvZGluZyBEYXRlOiAg MTAvMjgvMjAyNDwvdGQ+ KQQbMUP9hAhhITAb tJGsPBevVa5muOimqErt YV1xOJJywblePBNbeA7d NEWjlVVcbXoxCF7aVMUy azvyp391RtKcHKO8 VQVswWDsV5MxoE7rApZw QFTtMIFkT7ClnMQyJYcw X186FTrnRzP8CBBkjhOi Q3LoITSgsSvdTpJ6 l0U2Km0Pn8ZnukakN9Dp cIYwGoKjQszjZEs0E2Jm PjwvdHI+HW32MBJkOG06 JFt7TGV8mTfcVZjt FZPnY8XjfB9bSeOnLGId ZGRkOyc+PHRhYmxlIHdp ZHRoPScxMDAlJyBzdHls SK1wZc6cKOMgMZMf oHenwCAmPkUzc4uuNQLj UFpbKH2izNwjR3FfkQI8 XGTtr7i3Iz73G23oC1Ae dXA+SOLwiCE9bQH0 wX6rDkOiByN6RElfF495 VpJlsBWaAhkuw6kox8sg dWm9MjU4UIOrugFcrJgo ECH3u5SkQx79Z88l IHdpZHRoPSIxNSUiIHZh mBtrtn8ilG7yLc3+PGNv lNO0vUE0aM7ePvYqViE0 FUykE608JsQnyTBx Ahkkc9esi0vojPi9AzRm VAAtnsRjfAlqDKL0z2Se Iy15P5UzcTqpu3SkHrv6 xt46mBRuw3L2vWZ0 P5RxNPQdanudkTWprCse BN0kZDKrwpkgEQZgsN0b LLLrZ6k3BxKwJdY1TLup F8ErnrV5LBDlcJCs FOKliUGZlI4vmxmee8at gwhrIxDfHNRbAOo3ZTm4 HVPcoKoiIqAdNDS0AbM2 HDJ4lZYfdA6yyMjd qxqdzY9zQfr+IYY6eTBt gQHITN1aIkdrdQM+PHRk QBU5qGthMMmjEVQppM2f JSSoI8a7ByXwPzO3 JGgqC7QmegP9TQMmyJDt INKrtYUVmU9chwqcn9dv jafgPqAgKIRjAZj2LAj5 LWFsaWduOiBsZWZ0 HmG8ZHV1wSWcnW9swCoq hskobU8qKds+QmlydGgg CYH5NDw1Z0TdPnp7CAOr vUxaGI7raOSrBMoh Ye9bdMsvxYejMG5oRXSk esxav260DoAgw5lmITEy bAEmOVihXBL9R79bk6G5 KAXaNXRiMAR0aHL5 gZ8yqPysdvhkqKCrwKjh ipKetCptFHwtJBqoC730 RKMexNbvHpSvQSg3U0Tv Sqt1BEKrrBbdQI8r sKAxZPxuHf2ekMoxdQrp GC1yTZXroaiqk039EzPk s3jxMSJnoKMtXSpgTRJ9 F98ty0U5QWAwAMDj BXR2vEZ3sX4wpGxxgqyz bGVmdDsgdmVydGljYWwt EOwpR308GQJxaSihKtIl gYm8S8TtAth7PIPb jNcxFU8dnGTyPIbrKz0t cCiscKdoFY8dSQEdayfs u470TnYjh6laRFIysIBd KWxkJBH9J21ps7B7 XYXoDDYhQYF0pIT8nN2d bGlnbjogbGVmdDsgdmVy qNalMGkqKEdiT359WISv cDsnPlBhdGllbnQg KQtuFZw5F8QiHpzsjBY+ YV62DIErGZ54wKCqfECf i6moiHs3ZvHuLHOeVZY3 rCtcNWeia6MjWALe K62mxJZnc9E0RDHwvJuh dZByPfExeGM2bE8sYJct wfsci4qqxmjaRyrtk1us al24zH06R99tEOqu ZHRoPSIzMCUiIHZhbGln dl6maI7vXi7+PGNvbCB3 cUF4vJ1bWBFuUtK6ISrd L374QhUsbHWbVniw a3ewp6bcqMt0PzP3RWDh zeHvdMyeDUL7m4HiUr86 F40kDDqfCCCfDXUaTLLi EAIjpNnolo1swT1c Ii8+YPQsrKQ3qHR0tA0m WuYcIkB1IFusY887WrRv vZNjKcvgV66zO6YzkPL+ ANPoOkc9HZWprFjx EU6lkQYeFRmrYb5pMEY3 OhRxFhJbBOywA5TgVPQi xueluhpedBX2AIWuHRKu dP02Qo0guIvqEQHr qYXPmV6dsqooo9zowgtm OaUgTRWdPRo4MYb5PWZv xSalJdPbTSW5BwR0FXN1 hWDmmV8bkDdwjppk rC9eA5RdYUErubydRi53 tT5rXiHgAlL7FUezZla+ A5GNRVOLUTZPJGiyUYPF FMZOWB70PK10gFGd i3L5oAY6N7TzHOOzunlw dgddbBT9NMJlPHMrtW71 xCYvKVxhWe7at1X7h314 XPLhEISqeS57Sy3g bNwmULMulQSZkF1axggv y6cyfdizAcNkUOIiVHw8 DQh6OJUzkVigRdVjXUG3 QrI0LPH3gXXegL1t dXwzwvoukS3rLqp+MDEv QVEjNUq3BtzbmAV+PHRk NQD2nLsnFLhxJIYpbM8c TOMkH1o9FrAxWqZ8 RJydJ6IzITIakofjHw69 rX2hSfQsUrN1FPsfM5Pi zgT9DLXakOXoIZsvKNL7 Z78um2F2ZAGaKMUy TVS2xWY9oH6wrZjkgogn bGVmdDsgdmVydGljYWwt WKpgS697CZHgcWuxPdeg VNroTAJhTI86AP01 mLOiz9O3tGQ2V8WiHUIq rgsqwajfvIY5NTYhYDUr mB14sQJiUHloLu7gh7N7 p191IEWeMSJsnV68 Hl6smQzjDCRzjMBBfW5i rrsgz6gvnvoiSiLfSNJi YTr5HJn3JUWmqCukEdPu XTZ9CoS5BRK3sUEt yV7ouYdnuqxkmF4dTci+ TUFMRTwvdGQ+PHRkIHN0 jBkpMCpcSRLfgF6tSROq I7y7OsGdJvN2DBzr G6VwOSLnppluCl54hX1y YuXjXjC0FWzkT6GjpuC2 HNZxzKJaZRwnEMX3C81v r3M9KDUqXWCgUNH1 kGR8vZ0rxKmdyipjvIYa dDsgdmVydGljYWwtYWxp Y916FXWrlTbeJw4PZA95 VK17K7SvQxkurIVw bGU+PHRhYmxlIHdpZHRo ODqpTTHtMzYrzMlwLO2c Rl7iCVRvFPJwlPpsfTEu IzCgp4vhZSGdDFbi BL6pxEriI5TbzHF0AUTy z0f0By08Q99fK1PcwBN+ TEVnlUP5lFZ2pL2jJdTl QzZ4ZTdqW961BmIk eWZaHfepp5kas5vokFf2 IjMwJSIgdmFsaWduPSJ0 g0SfJq60J09kRPchYGPs PSIyMCUiIHZhbGln sw2wjB8zHf6+PGNvbCB3 nCA1jX3lMvAnXwU9XLag H823JfXkaIWbBoqmQ29n M9NivGH+PHRyPjx0 RCReqEihWB2rgQLkQNiw Pu6cVGU0QrElOfPnFGyu C5PjAYVnzbjzwijnjFB9 RDEnFJZeaC86Ze4p bMybZz6qLBAwZWR6GURl aGNhF6AkaA0qKvZeXLIa JVJhP9EguGKtMDhwM761 KVkwGhA0ENFhqmEx U3PiSOWxwUqlPhP7b1I6 Uh3GaPhlvZLgPM4hNaMh EQc6P0HqNes1CCEswSpo MS5agGKlJZcdJg9l lBzwoFvbJY8xCNToetqr h518VdOwg9arRDBcvAQz JZcbPYW7F63av0I3SNOd AITbWEW0jPQ7mY7c bGlnbjogbGVmdDsgdmVy qXcaCBlhJWlkO839VLIg tRusPoJMHsj4X3DfLwo5 MNPhgZwwCM2nrBYo MBvgXk9muMnsnNxkOY3j QXFyymeua715LdQwa3dd KGIdlBIsDZvkZCS7M11l g8U6HUBvHDHrHXT7 cPU5uO0meTmgkbndjMUq dDsgdmVydGljYWwtYWxp K177LWGynQuiCn2QVpk5 P3SoAcz4ZVOijPrr PU9bgYFsBJkfBt6mnBor lDllUY3oYZTrrdrqa053 GcNzj7inJQNcuLPpHSyu NMU1C39ce0S7POKz JRQzWMR7kMD1tP3avPvx bjogbGVmdDsgdmVydGlj BUlnSVzrY735DOQlgUjt PlBheWVyOjwvdGQ+ TB88bg24F4PtSjvwLau8 GAZeCFD0xZD8mK2yEECl RElmk7E4pOV4X4ZiphSg mm5cm4pxKTTbSGwj Y29 (more content not included)... [facility] Outside Recordson 04-05-2024 Outside Records [id number] [email or web address] [facility] Outside Records [id number] 71#[email or web address] [facility] Office Visiton 04-01-2024 Follow-up visit [id number] Richard Boykin 1940 M Date Provider Department Center 04/01/2024 NAI [facility] Family History Problem Relation Age of Onset Stroke Mother Valvular heart disease Father Family Status - Relation Status Age at Mother Father Level of Service:19267 [place] OFFICE/OUTPATIENT ESTABLISHED MOD MDM 30 MIN Normal [facility] Coding Summaryon 03-12-2024 Coding Summary HTMLBase 64 UztzirflELg1oVi+PGhl YWQ+KO1CKKAdG91dcGAs tQ6aB3WQXLpWFkosFTMA RVaDLzVluyFeUZ8uqQVr ZXJu IC8+HE2rZZDiRttyiKOw b3P0yZL7X13bvg8dXBxf bOZ4OPChLePjqjvuz3qy jGg8TFxiZepoTaMu BEZbkT15LAX9cS40Vy83 cVJfzMFfm2nauIs2KpJt JFXsASY9sSuqGHkns0Cc SIMwK82lpWPth9C4 IGNvbGxhcHNlOyBlbXB0 dA3dNKmirazgs1jygbtt Gvi6wa01xJKlp3E7cBD1 W8QepbY6ILRojDWa WmwzbYIYtV3vbtevn1jy uxqfZwDlBGRuZGa3JEv8 SEKdkAwqLwIzLY14GNZ5 ZSRzptOzJ5ZtVQSr nGqaFkX2e6I4Zm6HZ7YY GasbO5HRIEVJDDmvmHU+ UZ67zq21A2VfEmclGwq8 QRInPWU4uAM1bK5r ZFRoJQucf1D2kDG0Z7Tf bjRera3as5udBRTlCPam H75dfEBqj8Z8LAKhuEE2 DMQqzZrlKxWsyM06 Oyc+HBWdtGjpv0VmOwsq e2bpp3jneRo6ItlqZYDy zuJmxVruUJL2i5AxHz6f ZHYocJO2zTN3cD8p YdUoOeS2UNdnR636CyQo xYNwRqigU00lE6GqxOK+ GQYsEar9RXXtgZwlOB2w Y1IuCLNgjfiqiWLb oCyfKW8cZDPaenzzCSCt fP3yEYBwV3w7VwYzXpX9 LDtyW8ExLMXgjlxaUx35 tE8jLwIeVlJ7BOiq R9QhpyS0VAGihJLrRRib QDS7P43hr9D6YHUwSJFu UJX9jIA2eT5uqDutpcjm bGVmdDsgdmVydGlj IJyyQNhrG678MRFcaYxd PkNvZGluZyBEYXRlOiAg MDkvMjQvMjAyNDwvdGQ+ DBKcCGK7sCzuUHCs iDBySLujBi0ydKatqJfz MG1cYZYbyqjeICDtjO8m XYLwfKCmuVeaBB7bNNYa kkvpe738QpTyZSY0 YGCpxJVyG2MiqC6oEoAe AKKvXCVsB7KesLJbAVca I473HAhlQnG7WJSrodCl A6IeEHYogAqzLkY5 t6X5Gj4If5EfexipF5Qq mRAzStIgJojsHHo8Z4Rm PjwvdHI+XZ29YXNxYV53 UQa2LDV7xTzfGTlk QUBsA9HpvH4vGxHdKNRy ZGRkOyc+PHRhYmxlIHdp ZHRoPScxMDAlJyBzdHls IG7pIe6iFUChZJVa eFzfdFSuQjOlc8rtXBZt RSwrBP0dbByyB6NvoJO7 XEMvh0r4Ec06U15mS1Xi dXA+YAKyxAW1wRJ0 iT5jEcZtWkR1NHzlT602 CvUexIJgDggve0vmp1sz zAl8AoL3MYEjgrKtdBfx YLP3m2LaLe04O42w IHdpZHRoPSIxNSUiIHZh hAmnvb9htY3tXq9+PGNv wPT0rON1hQ6eQnNmDcG8 MCgoV337QnGuwHGb Rcqrs3qao3ersWg1JpXk CBJbkiUwcIpzJLN0k9Tr Ah23H0GirEame4SkRqb2 to03uEUgo7L8sOU6 F9AmQUFpxsmeeXXglZki LP5bZZLoohzyTXJpbG3k IEWgA6e6KqYoCiO8CTef I5UgglS6RSEudSLx CGDsgYEYeZ3frgpnr1aq xdruKoDjCNPjTCk1FPm3 LSQcfEoqUkUjUBY0KnN4 OWZ2pKNupF3raYze wpdnuK0bXrs+IBA0yNLz kUAXNQ0fGfxdjSM+PHRk JST8oWucAOonOFOjpK6v OJAkT0b7WhYoShW3 AVnnF7RprmG9HJQdqBNi WRHybYHLhT2egnlee1hp uixnRjCxXDArTFi3LDe2 LWFsaWduOiBsZWZ0 GzA6APF8lOBhoQ3srSkd fydcbN1nKln+QmlydGgg NJJ7RJe3C9ClBey9XEHz rYqdGK5vtUFoFFdr My3jqFyyjGxeRI0hSLAq yahru415BlTfh5ytBMIg dWFmMNnvGAQ1M32lp8A9 YTGrQFPiSWA4kPH6 kY3hgRopgithfSVuqWke ieWdjVdyRTggIHqjB723 XZGkjDioWfVsWLn1W7Vd Ylf6YORkyJadTK6t sJLoZVqkWa5pjHizcYyn SG1dXLEluzwto479EvXe d2faINYjfQIeQSziUWB0 K26ic6H3CSYyEFVe QWY6vGX8bI8nxAkriyvy bGVmdDsgdmVydGljYWwt JZcwN679TDUniWqrLxGc tQc7I1UlLpq9JTEl zXedQP5mmLPoXOnsSw2i aGmliAikEF1gQKZjfyvu b622DvVgq8jxMMFxxXQy OFkcRHA5G23xm9K4 NKSnBJRaSFI3xND8sI1h bGlnbjogbGVmdDsgdmVy tGuaNAuaADziS081IWBz cDsnPlBhdGllbnQg ELvnORz6G0LbKqnrcCR+ WD13GFJoDE18hLMkxKOl c8iyhSo3IuZzIRGiIVL8 wUsiKSwlg1EfIFNt T00daICos1T2ZYSpdGas kRRpWhBozIR6fL1wDCyu sygjm8aswdzqHtkkd2ey yk84jP30L83eLWrs ZHRoPSIzMCUiIHZhbGln qp3yfR1dTl3+PGNvbCB3 xNR5zT3yWSJeKjL7TFag S713HnVfaHAlWelf i3gwg1hixCi5OyR2URGs ljNylVmkIUE6p8PeWk34 J52iDZqxQGOsFKPuUFJy GBKubPntje0uyG5z Ii8+DRXxbQK2pUY2zA4l IqBlQqQ9AHokT195EfXw cJDxFxkoS84oL3AnaHC+ ULAtTlx1SJMluDoe AZ5azBRhQSsrIy4fJWW0 EzYnScIrMEgcQ7HwORUi lmnwnutdoHQ3HMTmZATk zF71Jx9hdGjzZPWk zBWKnZ4yabcpu8flepby LlZnTFJjYSd6ZUt9MOFs qEmrVsFaQNL8BwL3VFV4 sUEohJ3tsIvrtelo pY9tV5FhNFXiuparCt58 hF6hFuLfPzC9FYpcIwu+ C2TSWKVINBDYDQzuIGEO VUYJOK74SW79tCDt q5Y2lYU9S4RxVHJjkahh ttosmFD8ICGbXBAogO96 qYSuGQefUe6yx9V2u118 AYDwOHDacI54Ed5s tMfoOQYsmVVCuD4muvuf o6kwfxxjMdYuEVBlSHc2 MBe6WRVzfCdyKaZmQSP2 PbR6QFW1fLFqgH2g fSmrwkdqyM0aNxl+MDEv MACwDQp5PjidiXA+PHRk YKP2oBrxDPlhIURauE5o IGMnV3l4FyDvHvU8 LLcdK4OwLHNmoionBj78 zK3aYzOuVwB8KRlaH0By cjE8BLNpvQCcKEadIFZ3 C68rq6N4CDGhNSOx SAV8dMT3bW2uxDfvnbkz bGVmdDsgdmVydGljYWwt MJjyB554BTMkbYzzByxv WIrdZAJbTA44XE15 oACdq3O7xIE2E7PsIANf lwlftpihuPM0OWXyBNUy gL27jTCnZJdnIc5yu8B2 r998RDYpBPXmkA54 On5bqGvgKYYvzLIZwD9d cizox5jdwhtfKtJcUDNg MKt9VDp0LYLtsVrmHvUy BGT8TxE8EMA8pMJs eC5fqQeqszvuoD8wQvs+ TUFMRTwvdGQ+PHRkIHN0 yDsgPQmmYVEjoF2eMTYh W2a5QyKsBrF8ELxz W7PqLILyowyeSe67dX2c CxWpGfQ9ZQtxU6EvepQ5 XNWtsVOnEHenREJ2C17w j6J2IDChBIQpLUE2 hMS8jE3gzShkftbcpIJs dDsgdmVydGljYWwtYWxp X751YUPahUbuQm7LCC69 GW59Y1CwVfpdrDOa bGU+PHRhYmxlIHdpZHRo TMcvNFHsGfPebUypIS2d Ze3yKCSgJSSjcBkavWLg VqIaa5scJKUsAZad QB7lqVbsS1EnpYL7BNGd v5p1Mv01F03rE9IsgLF+ FLMzkLM0kCS9kH4iRjDw ZvU6OGcaX695PaPx sZBjCanxu1khr6zjtDl5 IjMwJSIgdmFsaWduPSJ0 p8DtYs53F32qGDhpXVSn PSIyMCUiIHZhbGln lx9ciP4kKy0+PGNvbCB3 nZC2vJ0yOrQkXtV3OHso I306DeUfqKAqDfvrI98g Q4JjrZL+PHRyPjx0 PUPugFgnEP5dzEJiLAsx Ry0yFJM0LyEpDxRhFRoq G6BqKEGyzzdtitjwiXE8 KYRxAOOppO52Xp2n lRxiKk7gBDOaGHR7ULEv iHWzF8VhyK5hAiGdAAPz JZUyC4RooBXjJTstO847 AIjjEsL4SESpykAh V9IlIRCsfPsqWeC4o3C1 Hj5SmPiynKToPF1bKpUr HWw5B2InLxk7FVKmrJlp ML9xaUZtIFviRa2x mKrnxNunJF3qSMDoerwf x865SiHlm9fjQCZszSCq NXmqRUU7R64tk2P2JIQa WZOhHWL9nDK8vM8v bGlnbjogbGVmdDsgdmVy aOzjLErtYKtiW090KXKi sXviBgIDSwq6E6McPmy3 ZHKuuSnfWI4ejEUo BSiaXf7flTlgdXzxUS4q CZLrjrnpn800PhFda7ug WUPuyEBqFBvfLDU0R93x i5J4OQFpFZIdJYX3 aAA1yQ7qjNzliypkzCFq dDsgdmVydGljYWwtYWxp H072WGNzzDrfLl0MFmm6 D6MqDfx3KEFtfYzn RT1lvFLxGNhdHj9bjAmv tBjtES7gNSHhecrsu433 DbLhw0ulBPQktKMyFErf OHO2Z54bd3W5TCSw KQCgNXX6tSH3fO9vvRtd bjogbGVmdDsgdmVydGlj MNpsSBikJ021GMIrpCqn PlBheWVyOjwvdGQ+ IZ63oo80H1MvWwcnJpt9 HXBmTTI7tTJ5pX7rSQYr AStyv2K7cAE2R9OhplCe qs5sf8hjAKRbICfp Y29 (more content not included)... [facility] Outside Recordson 03-04-2024 Outside Records [id number] #[email or web address] [facility] Office/Clinic Noteon 024 Office/Clinic Note [...] All Problems Acquired hypothyroidism / SNOMED CT 364690524 / Confirmed Afib / SNOMED CT 68184684 / Confirmed Chronic renal insufficiency / SNOMED CT 0978549152 / Confirmed Degenerative arthritis / SNOMED CT 0942426451 / Confirmed Gout / SNOMED CT 736336832 / Confirmed History of psoriatic arthritis / SNOMED CT 991613240 / Confirmed HTN (hypertension) / SNOMED CT 6743727945 / Confirmed Hyperlipidemia / SNOMED CT 78896058 / Confirmed PAD (peripheral artery disease) / SNOMED CT 9712726148 / Confirmed Thoracolumbar back pain / SNOMED CT 642906611 / Confirmed Type 2 diabetes mellitus / SNOMED CT 141520293 / Confirmed, Active Problems (11) Acquired hypothyroidism [...] 107.230 kg Body Mass Index 33.47 kg/m2 [place] Body Weight Calculated 74.087 kg BSA Measured 2.31 m2 General: Alert and oriented, No acute distress. Neck: No carotid bruit, (more content not included)... [facility] Miscellaneouson 02-26-2024 Miscellaneous [id number] 8#1.00[facility] Provider Orderson 02-26-2024 Provider Orders [id number] #1.00[facility] Coding Summaryon 02-11-2024 Coding Summary HTMLBase 64 YmvecpyjWYs9hXy+PGhl YWQ+KC9XXLToB12jwFSk iP1bE5JWGPcOJaprQWHH XTlGRgTmmeCjBO9naZMe ZXJu IC8+ZV4rIIJiYplsfKVc j9I8aFD4S76lqh5aCWll xMY9OUUwGlKqoqozi6lw aEb1CIfxEwexXlMm XBXhhU62BVD3zG11Ta88 jQDsfHGgj9uvqRq5ZyTm DSFxGBH7eHlhJUegk2Du HNQqE96mvLPfp6G8 IGNvbGxhcHNlOyBlbXB0 dH1rNOiyjzufc5mrfkjx Ccg2nd20hOAjp0Z4oSU5 Y1TtqkZ6IAZykMRp VfgwxYYPiA4tnffyt4xx qwhqEmJiFSMkSSu7TWc3 XCGnlElcZzPfUY87EDN0 ICOfedQbB9JjUYBe uFsoAgA7b7B8Ea2YI4XG BnchO3TRPAMWZWraiZE+ YL37bw26I2GnTtapPfa9 RCEsWPO5yVU7iM9k OWTeHMwdb5R6aFR2E0Aa nfBhxh9oy1tdJOIkWLhu O39dfVAlr9M5PFGetTL2 EDEuaVhyYtLrpO14 Oyc+LFCrpFxuj4IzKbfz d6ncl3mzkMp1LyruHCRj eiEyjCslFYL3w7JrAl6y TVDjbJE7hXU2bL8r MnXdHzX1FFscU713DmKf dMFfVmltD81sV0JpnZA+ KLMzXvk2UKNjrKxoEB5r B7VkZTIbypabeYDj tJvvVJ2qKEWwlhzwUTRh wG2tDQMjF7w5QdJaSeC5 QFitZ0XdROZlpzljUf05 vJ9mQzPhHoY2HJtr Q6FhwvZ5UDEiwMEpVWuc PNX2D00ey8Q6GSXqWHWy JPZ6eDN6cR0ruFxmwzzo bGVmdDsgdmVydGlj WPytUOqlE663TJGjkZey PkNvZGluZyBEYXRlOiAg MDgvMjUvMjAyNDwvdGQ+ TDEpJIC8kYxvPGAd wXUrMOtzWf5wyWlmyExd LZ1iIMWyndwiPYArgC8x QKBdtJQliTooDE0qTANr uzonn382OxIaEMU6 JOBzvOSuJ0YiyE4gMaCl MHGyYRQgL1UkwXVwQTfv L053YMheQwJ3PLBhdwVb C5QlNNMxiUgfPmQ1 x3R5Qm5Yr5RftirvW5Ps mWOtWyYzNazyQSr0D3Nd PjwvdHI+LU18LWUrRK05 NMn4PHN5mTgjQAsk GLXaT0HvnG6qLmWeNVRq ZGRkOyc+PHRhYmxlIHdp ZHRoPScxMDAlJyBzdHls HO6pNo2lFBPzAKFq gUmfxOEnWuXaf9icDMOi NNwlIY4nuQcfR7ByqXQ8 KMOqi3b6Jw40N42eU5Rf dXA+UVMdsIB0rQW8 mV4rEqMsLtT7PPavJ171 YbYhwWYgRvrnu7why2ff iAb4VkU0AFChfqMtoEqd EEG2r6TbOn77H90s IHdpZHRoPSIxNSUiIHZh bAbxle6jhB9oXa5+PGNv nTH8aCJ2oL2gRbDrLrC1 VUhhJ758HsTasRJb Rvqfy2kkb4pxeUm9UbNq ABXoahGisWqvIMD3l9Dh Fl12Z0UlvJrjm0AwLob2 wj66nFLqo0R6zRT3 G3EbDAHckwxmhPSslCzw VE2jWOSsoqkgEFBejB6r KAGeO6v0QhTzMuC5UBll O9NtztN2WLKurBWq OINgcYOAjE9sffcdj0zs sszwAnQjKRPhWNm6HGh3 KSBroDvtQiElYQE4XsC1 JNV4nAOdcH6biTyx ceanfZ4hKcp+EGO2lCBu lZFYTH5nGdwukUZ+PHRk BLX4pBjdIAmmHCZaoK5q CCNgF4f8VdLqKsD2 UQjfR1OzcbB1RQRghJId RWXfiOFMzY0cgaait4ur otgnXjVbSUKeHWs3YNr8 LWFsaWduOiBsZWZ0 NaV6QBA7dJSqqF4pnSls iuhmhY0tCvl+QmlydGgg GVY0CJw5D9XnTny2MSHp dTmyUC5skUGhPSvh Cg8cbJhyxIynWA6xZGMl leiio155TaJxg1peRMZg zMJyALzxCSJ2B94oh1I2 MOLbLDYkXFO1qVK4 sI1xvMqoaxlrdZWokDir gqLiuHdoSZotVBaaD000 SZYglVsmAvYrZFv9P6Ws Mfp1JGZyyHroBK1m uODsJNdoDc4muOuxcDuf JP8rQDYrbecno575VoXp u0lwVTQzrQEbFZkmBNP0 H07gj3B8NULdWBSo IUX6qTK9pZ4wgVczuqnn bGVmdDsgdmVydGljYWwt DJiiM517YVQvpEsbGbFa mJx3E0SeUfh5TQXu aNmhKV2ljRBrKXxvHo8n zZvtlHfnJB5fFQIaswjg p732RaIrr3fqZIErpAQf FIvmIEY6S87wn0V4 YHYbUCTvPXC9vEL2jP3g bGlnbjogbGVmdDsgdmVy tTohFUbeYKojX201FEUk cDsnPlBhdGllbnQg MEgeEGc6M0BtHwyamBV+ WY48PFFkYZ76yUSngNWi t7dwyTl4RvYrLRCoGOG9 dQlfCSwax8WhLGJn N62wqKLio8S9QUDgaNyq yVLgZwOkkNM6iL5eRHtm jqogh6gowawgHsbob6np ju24lZ77L08tRKlm ZHRoPSIzMCUiIHZhbGln ne1jhX3lTr0+PGNvbCB3 nBX6nR4lKESaMpP4LEqm L276CvNllHPoSovg e5hvh3spcKj6UhD8LBSa anZbcXqzKWY3d1YyCo06 H16fNUrnULJkOTRoNWIb DNZxgPdfka1ykM9i Ii8+STTajOH4qCP0kA0o OaJtZgM2TQtqP355XoWd zUTgSerhM36fV5IrqEV+ JXYeQwk6YHDfxJvk OG6ohYVcHZitJv9dIWN9 MbLpQzBqANzbM1EdOAGs qomkdqzerTY0MUJtWSAb pC63Ub0omNbvONQa hSMLgW7fauqhl2mktyku HlLgLGRmGRn3GVv5LHMh nLemFpPxOGG6XfK6UAW5 vWJwpU6aeThdorui zT3kV8YcWSNkrmskKb09 aP1yZgGvYdV1DOcjLkc+ M4BVTWNCGDNHIDivJAEM DOYXPS82OG95dYMq c8F2vQX8L3ScNKXtquek poylwXO4SATtENDpbB18 yBTsYAwpMy3nf7H4n914 ZQKqQQUnuN82Fk3h kJtiSSVnpXREtX4cimmb q8sqxjncGsCaQVNyISi8 NTn3CZTbaMqoWsIuQTC8 WtP1ILB6yHGhbV0c eFgkdqztjS5iLgz+MDEv SWDpUTy3MyuglMZ+PHRk ORC7bEtoLHtrBMOxwQ1o QRUkM5n9YxKvFdH5 DItfD6KbZLWmqygyWf80 oH2tEjPnHxK5ZGcqK8Xk coR6BPFdbXZwMCcoWKW9 M85br9S1QJCnLGEs TQS6tRH1nX0qoWmerzkd bGVmdDsgdmVydGljYWwt QEzeO662YHIobOvgOakv ROxqFMNuUN04ES66 jBHgf9Q7eOB5U9AqUMMf cpsbnkuwkSQ0BMIeSWGs yA64mHYrQMinYw7tl0H6 v855CBFaAEFhxF07 Fb1wqKavREJepLZXuF1r apili2jjvhwsFgBaVDCz HBy8MHz9YUKpwSmfNeVv PKI3JoH7PYI0oUNw tL0wzSmqrnjkqG4gRlj+ TUFMRTwvdGQ+PHRkIHN0 wBhrAKucZJZdvB1sWGYi T3o4CfXuGvI6KEci U6VvVFKbobgnRp38mE9n IlNiXgC3QQtmH3RlfuV1 MNYnlCZaRRfvWET5O35e c3R1HWBhVFTgHNR5 nVQ0kR5orDipwpjriZMy dDsgdmVydGljYWwtYWxp A194IQUyvWuhLoDhZ1Sc cmluZyBPdXRwYXRp RD41VU06YY26J5UvBbse dGFibGU+PHRhYmxlIHdp ZHRoPScxMDAlJyBzdHls DU5qCh0gECNgVZJp hEsftDCjBaAti8peLMAd KKhrMR4smFdkQ7QdmXH1 PWZks9q6Ol33Z45eT6Zb dXA+BTRkpTY1cWX0 pC7zMhKdXxE5VWcdD457 ZiIcgTOfBniro3mfy2pq jSv7PsToFPXwehSedHvu ZSB2z2NbZy52E19v IHdpZHRoPSIyMCUiIHZh bKroqh0rnG6nBe8+PGNv fVH7hKU0yC2nJuMtFwZ4 VCwwD935BvQyyGMh GfzeQ76cE5OicVX+PHRy Pqf5AQVfcVjiYC9wcNCw TUsuWd5pPWA8TkZwLeWw KTejT1RgRGIddjqu ixjdoTV5YPFnHYXatN65 Cp1jqCssCw6jNJElIMB4 SVJdjILfT0WtgU3tMzDw JETgYRAvW5CwrZFf PRyaO114KCwqAcR1SRTc adBhQ8TlGTBqzWqqTaL4 t4W9An4KvDiazDSvFY6g PkCpPUj3P1AyVor8 UUMcoNxcNV2scSJpNTxa Zy8cnUpzjVimLR0wSYGj xypxe082PvGip4xlLHNy uOYwYIhbCPH2K66p k6G6YJZzQEUuGLP1mJY9 uP3vmPggnqzksJMfyVvc mlQqiBriUZvjRWiaF507 IHRvcDsnPkZJTjo8 P8UlKpf6GCXkmAniAV8j lUUdSCxxXr2ksEjwjWvy AU6gCAKcyxdfg477NrGi m0nlDHNadUNzPIov BUP7W80wy4G7PPTiUUCh KCV1lLI9sP2ypOkyrcvk bGVmdDsgdmVydGljYWwt TQmqB983CGDuaIis We1LWof4Z7QsZff9BOJv nEwbGD3sdWVmFNcmDe5z rVrobPmyMA5jHCGkveyl d639OaMqo8dkJYUg mNEmBFpqSHS2B56oa6X2 PANmSQVaZJN3wON8sU4h bGlnbjogbGVmdDsgdmVy rWtrCVyoWQgmN181 IHRvcDsnPlBheWVyOjwv dGQ+PM03fs64A4ZvVopq Xiv8XYGxOSA6wRQ6oL2e ZLHzIFspt0Y2lMQ4 J2J (more content not included)... Normal [facility] BNPon 03-26-2022 Natriuretic peptide B (Bld) [Mass/Vol] 629.0 pg/mL Normal <=1,800.0 [facility] Comment on above: Performed By: #### B MP, TSH, BNP, LIPID #### [facility] [address] [place], [place] [address] Dr. Aaron Ling LIPID PROFILEon 03-26-2022 CHOL-HDL RATIO NORM SEE BELOW Normal [facility] Comment on above: Result Comment: 3.3 - 4.4 LOW RISK 4.4 - 7.1 AVERAGE RISK 7.1 - 11.0 MODERATE RISK >11.0 HIGH RISK Performed By: #### B MP, TSH, BNP, LIPID #### [facility] [address] [place] [address] [address] Aaron Ling Cholesterol [Mass/Vol] 212 mg/dL Critically high <=200 [facility] Comment on above: Performed By: #### B MP, TSH, BNP, LIPID #### [facility] [address] [place] [address] Dr. Aaron Ling Cholesterol in HDL [Mass/Vol] 86 mg/dL Critically high 40-60 [facility] Comment on above: Performed By: #### B MP, TSH, BNP, LIPID #### [facility] [address] [place] [address] [address] Aaron Ling Cholesterol in LDL [Mass/Vol] 98.4 mg/dL Normal [facility] Comment on above: Performed By: #### B MP, TSH, BNP, LIPID #### [facility] [address] [place] [address] Dr. Aaron Ling Cholesterol.total/Cho lesterol in HDL [Mass ratio] 2.5 {ratio} Normal [facility] Comment on above: Performed By: #### B MP, TSH, BNP, LIPID #### [facility] [address] [place] [address] Dr. Aaron Ling HDL NORMAL > or = 60 mg/dl - LOW CARDIOVASCULAR RISK <40 mg/dl - HIGH CARDIOVASCULAR RISK Normal [facility] Comment on above: Performed By: #### B MP, TSH, BNP, LIPID #### [facility] [address] [place] [address] Dr. Aaron Ling LDL CALC NORMAL SEE BELOW Normal [facility] Comment on above: Result Comment: <100 mg/dl OPTIMAL 100 - 129 mg/dl NEAR OR ABOVE OPTIMAL 130 - 159 mg/dl BORDERLINE HIGH 160 - 189 mg/dl HIGH >190 mg/dl VERY HIGH Performed By: #### B MP, TSH, BNP, LIPID #### [facility] [address] [place] [address] [address] Aaron Ling Triglyceride [Mass/Vol] 138 mg/dL Normal <=150 [facility] Comment on above: Performed By: #### B MP, TSH, BNP, LIPID #### [facility] [address] [place] [address] Dr. Aaron Ling VLDL CALC 27.6 mg/dL Normal [facility] Comment on above: Performed By: #### B MP, TSH, BNP, LIPID #### [facility] [address] [place] [address] [address] Aaron Ling PROF CHEM 8 (BAS METB)on Anion gap [Moles/Vol] 7.4 mmol/L Normal [facility] Comment on above: Performed By: #### B MP, TSH, BNP, LIPID #### [facility] [address] [place] [address] [address] Aaron Ling Calcium [Mass/Vol] 9.6 mg/dL Normal 8.5-10.1 [facility] Comment on above: Performed By: #### B MP, TSH, BNP, LIPID #### [facility] [address] [place] [address] Dr. Aaron Ling Chloride [Moles/Vol] 94 mmol/L Critically low 98-107 [facility] Comment on above: Performed By: #### B MP, TSH, BNP, LIPID #### [facility] [address] [place] [address] [address] Aaron Ling CO2 [Moles/Vol] 36.2 mmol/L Critically high 21.0-32.0 [facility] Comment on above: Performed By: #### B MP, TSH, BNP, LIPID #### [facility] [address] [place] [address] [address] Aaron Ling Creatinine [Mass/Vol] 2.27 mg/dL Critically high 0.70-1.30 [facility] Comment on above: Performed By: #### B MP, TSH, BNP, LIPID #### [facility] [address] [place] [address] [address] Aaron Ling EGFR-AF MALTESE 34 mL/min/1.73m2 Critically low >=60 [facility] Comment on above: Performed By: #### B MP, TSH, BNP, LIPID #### [facility] [address] [place] [address] [address] Aaron Ling EGFR-NON AF MALTESE 28 mL/min/1.73m2 Critically low >=60 [facility] Comment on above: Performed By: #### B MP, TSH, BNP, LIPID #### [facility] [address] [place] [address] Dr. Aaron Ling Glucose [Mass/Vol] 214 mg/dL Critically high 74-106 [facility] Comment on above: Performed By: #### B MP, TSH, BNP, LIPID #### [facility] [address] [place] [address] Dr. Aaron Ling Potassium [Moles/Vol] 3.6 mmol/L Normal 3.5-5.1 [facility] Comment on above: Performed By: #### B MP, TSH, BNP, LIPID #### [facility] [address] [place] [address] Dr. Aaron Ling Sodium [Moles/Vol] 134 mmol/L Critically low 136-145 Th [facility] Comment on above: Performed By: #### B MP, TSH, BNP, LIPID #### [facility] [address] [place] [address] Dr. Aaron Ling Urea nitrogen [Mass/Vol] 48.0 mg/dL Critically high 7.0-18.0 [facility] Comment on above: Performed By: #### B MP, TSH, BNP, LIPID #### [facility] [address] [place] [address] Dr. Aaron Ling Urea nitrogen/Creatinine [Mass ratio] 21.1 mg/mg Normal [facility] Comment on above: Performed By: #### B MP, TSH, BNP, LIPID #### [facility] [address] [place] [address] Dr. Aaron Ling TSHon 03-26-2022 TSH 2.606 uIU/mL Normal 0.358-3.[address] [facility] Comment on above: Performed By: #### B MP, TSH, BNP, LIPID #### [facility] [address] [place] [address] Dr. Aaron Ling B-Type Natriuretic Peptideon 01-19-2022 Natriuretic peptide B (Bld) [Mass/Vol] 749.0 pg/mL High 5-100 [facility] Comment on above: Order Comment: Result Comment: PERF ORMED BY: [place] [address] PATHOLOGIST [employer] SERVANDO AKERS M.D. Performed By: #### B MP, LIPID, TSH3, BNP #### [address] Basic Metabolic Panelon 08-0 Calcium [Mass/Vol] 8.5 mg/dL Normal 8.2-10.2 [facility] Comment on above: Order Comment: Performed By: #### B MP, LIPID, TSH3, BNP #### [address] Chloride [Moles/Vol] 103 mmol/L Normal 95-114 [facility] Comment on above: Order Comment: Performed By: #### B MP, LIPID, TSH3, BNP #### [address] CO2 [Moles/Vol] 31.5 mmol/L High 22.0-30.0 [facility] Comment on above: Order Comment: Performed By: #### B MP, LIPID, TSH3, BNP #### [address] Creatinine [Mass/Vol] 2.03 mg/dL High 0.64-1.27 [facility] Comment on above: Order Comment: Performed By: #### B MP, LIPID, TSH3, BNP #### [address] Estimated GFR ( Ava 38 Normal [facility] Comment on above: Order Comment: Result Comment: GFR estimated reference range: According to KDOQI guidelines, <60 ml/min/1.73m2 is sufficient to diagnose a patient with chronic kidney disease. Performed By: #### B MP, LIPID, TSH3, BNP #### [facility] [address] [id number] [place] Estimated GFR (Non- Am 32 Normal [facility] Comment on above: Order Comment: Performed By: #### B MP, LIPID, TSH3, BNP #### [facility] [address] [place] [id number] [place] Glucose [Mass/Vol] 99 mg/dL Normal 70-100 [facility] Comment on above: Order Comment: Result Comment: [facility] Glucose Reference Range is dependent on time and content of last meal. Glucose of more than 200 mg/dL in a nonstressed, ambulatory subject supports the diagnosis of Diabetes Mellitus. ADA recommended reference range Performed By: #### B MP, LIPID, TSH3, BNP #### [facility] [address] Potassium [Moles/Vol] 4.9 mmol/L Normal 3.5-5.1 [facility] Comment on above: Order Comment: Performed By: #### B MP, LIPID, TSH3, BNP #### [facility] [address] [place] [id number] [place] Sodium [Moles/Vol] 142 mmol/L Normal 136-146 [facility] Comment on above: Order Comment: Performed By: #### B MP, LIPID, TSH3, BNP #### [facility] [address] [place] [address] [place] Urea nitrogen [Mass/Vol] 50 mg/dL High 9-23 [facility] Comment on above: Order Comment: Performed By: #### B MP, LIPID, TSH3, BNP #### [facility] [address] [place] [address] [place] Cholesterol [Mass/volume] in Serum or PlasmaOrdered By: Sweetie Tomlinson on 01-19-2022 Cholesterol [Mass/Vol] 259 mg/dL 140-200 [facility] Comment on above: Chol less than 200 m g/dl low risk Chol 201-239 mg/dl borderline risk Chol 240 mg/dl and greater high risk Cholesterol in LDL Calc [Mas s/Vol]Ordered By: Sweetie Tomlinson on 01-19-2022 Cholesterol in LDL [Mass/Vol] 142 mg/dL 0-100 [facility] Comment on above: LDL ATP III CLASSIFI CATION LDL less than 100 mg/dL Optimal LDL 100-129 mg/dL Near or above optimal LDL 130-159 mg/dL Borderline high LDL 160-189 mg/dL High LDL greater than 189 mg/dL Very high Cholesterol in VLDL Calc [Ma ss/Vol]Ordered By: Sweetie Tomlinson on 01-19-2022 Cholesterol in VLDL [Mass/Vol] 12 mg/dL [facility] Creatinine and Glomerular fi ltration rate.predicted panel (S/P/Bld)Ordered By: Sweetie Tomlinson on 01-19-2022 Creatinine [Mass/Vol] 2.03 mg/dL 0.64-1.27 [facility] Estimated glomerular filtrat ion rate (GFR) non- AmericanOrdered By: Sweetie Tomlinson on 01-19-2022 GFR/1.73 sq M.predicted among non-blacks MDRD (S/P/Bld) [Vol rate/Area] 32 mL/Min [facility] - Chemistry and C hemistry - challengeOrdered By: Sweetie Tomlinson on 01-19-2022 Natriuretic peptide B (Bld) [Mass/Vol] 749.0 pg/mL 5-100 [facility] Lipid Panelon 01-19-2022 Cholesterol [Mass/Vol] 259 mg/dL High 140-200 [facility] Comment on above: Order Comment: [phone]- [phone] Result Comment: Chol less than 200 mg/dl low risk Chol 201-239 mg/dl borderline risk Chol 240 mg/dl and greater high risk Performed By: #### B MP, LIPID, TSH3, BNP #### [address] Cholesterol in HDL [Mass/Vol] 105 mg/dL High 29-71 [facility] Comment on above: Order Comment: 1- [phone] Result Comment: HDL CHOL ATP-III CLASSIFICATION Cardiovascular Risk HDL > or equal to 60 mg/dL LOW HDL < 40 mg/dL HIGH Performed By: #### B MP, LIPID, TSH3, BNP #### [facility] [address] Cholesterol.total/Cho lesterol in HDL [Mass ratio] 2.5 {ratio} Normal <5.0 [facility] Comment on above: Order Comment: [phone] Performed By: #### B MP, LIPID, TSH3, BNP #### [facility] [address] LDL Cholesterol,Calculate d 142 mg/dL High 0-100 [facility] Comment on above: Order Comment: [phone] Result Comment: LDL ATP III CLASSIFICATION LDL less than 100 mg/dL Optimal LDL 100-129 mg/dL Near or above optimal LDL 130-159 mg/dL Borderline high LDL 160-189 mg/dL High LDL greater than 189 mg/dL Very high Performed By: #### B MP, LIPID, TSH3, BNP #### [facility] [address] Triglyceride w/Reflex 60 mg/dL Normal 35-149 [facility] Comment on above: Order Comment: [phone] Result Comment: TRIG ATP III CLASSIFICATION TRIG less than 150 mg/dL Normal TRIG 150-199 mg/dL Borderline high TRIG 200-500 mg/dL High TRIG greater than 500 mg/dL Very high Standard traceable to the Center for Disease Conrtrol and Prevention (CDC) test method. Performed By: #### B MP, LIPID, TSH3, BNP #### [facility] [address] VLDL CHOLESTEROL 12 mg/dL Normal [facility] Comment on above: Order Comment: [phone] Performed By: #### B MP, LIPID, TSH3, BNP #### [facility] [address] No Panel InformationOrdered By: Sweetie Tomlinson on 01-19-2022 Estimated GFR () 38 mL/Min [facility] Comment on above: GFR estimated refere nce range: According to KDOQI guidelines, <60 ml/min/1.73m2 is sufficient to diagnose a patient with chronic kidney disease. Pharmacy Creatinine Clearance (Chem N/A [facility] Serum or plasma calcium shelbi urement (mass/volume)Ordered By: Sweetie Tomlinson on 01-19-2022 Calcium [Mass/Vol] 8.5 mg/dL 8.2-10.2 [facility] Serum or plasma chloride alex surement (moles/volume)Ordered By: Sweetie Tomlinson on 01-19-2022 Chloride [Moles/Vol] 103 mmol/L 95-114 [facility] Serum or plasma glucose shelbi urement (mass/volume)Ordered By: Sweetie Tomlinson on 01-19-2022 Glucose [Mass/Vol] 99 mg/dL 70-100 [facility] Comment on above: ADA recommended refe rence range Random Glucose Reference Range is dependent on time and content of last meal. Glucose of more than 200 mg/dL in a nonstressed, ambulatory subject supports the diagnosis of Diabetes Mellitus. Serum or plasma high density lipoprotein (HDL) cholesterol measurementOrdered By: Sweetie Tomlinson on 01-19-2022 Cholesterol in HDL [Mass/Vol] 105 mg/dL 29-71 [facility] Comment on above: HDL CHOL ATP-III CLA SSIFICATION Cardiovascular Risk HDL > or equal to 60 mg/dL LOW HDL < 40 mg/dL HIGH Serum or plasma potassium me asurement (moles/volume)Ordered By: Sweetie Tomlinson on 01-19-2022 Potassium [Moles/Vol] 4.9 mmol/L 3.5-5.1 [facility] Serum or plasma sodium measu rement (moles/volume)Ordered By: Sweetie Tomlinson on 01-19-2022 Sodium [Moles/Vol] 142 mmol/L 136-146 [facility] Serum or plasma total carbon dioxide measurement (moles/volume)Ordered By: Sweetie Tomlinson on 01-19-2022 CO2 [Moles/Vol] 31.5 mmol/L 22.0-30.0 [facility] Serum or plasma total choles terol/high density lipoprotein (HDL) cholesterol mass ratOrdered By: Sweetie Tomlinson on 01-19-2022 Cholesterol.total/Cho lesterol in HDL [Mass ratio] 2.5 {ratio} <5.0 [facility] Serum or plasma urea nitroge n measurement (mass/volume)Ordered By: Sweetie Tomlinson on 01-19-2022 Urea nitrogen [Mass/Vol] 50 mg/dL 03-11 [facility] TSH DL <= 0.005 mIU/L QnOrde red By: Sweetie Tomlinson on 01-19-2022 TSH Qn 11.52 m[IU]/L 0.45-5.33 [facility] Thyroid Stimulating Hormoneo n 01-19-2022 TSH Qn 11.52 m[IU]/L High 0.45-5.33 [facility] Comment on above: Order Comment: [phone]- [phone] Result Comment: PERF ORMED BY: [place] [address] PATHOLOGIST [employer]PER[employer] SERVANDO AKERS M.D. Performed By: #### B MP, LIPID, TSH3, BNP #### [facility] [address] Triglyceride [Mass/volume] i n Serum or PlasmaOrdered By: Sweetie Tomlinson on 01-19-2022 Triglyceride [Mass/Vol] 60 mg/dL 35-149 [facility] Comment on above: TRIG ATP III CLASSIF ICATION TRIG less than 150 mg/dL Normal TRIG 150-199 mg/dL Borderline high TRIG 200-500 mg/dL High TRIG greater than 500 mg/dL Very high Standard traceable to the Center for Disease Conrtrol and Prevention (CDC) test method. BNPon 12-21-2021 Natriuretic peptide B (Bld) [Mass/Vol] 2048.0 pg/mL Critically high <=1,800.0 [facility] Comment on above: Performed By: #### B MP, BNP #### [facility] [address] [place] [address] [address] Aaron Ling PROF CHEM 8 (BAS METB)on Anion gap [Moles/Vol] 11.1 mmol/L Normal [facility] Comment on above: Performed By: #### B MP, BNP #### [facility] [address] [place] [address] [address] Aaron Ling Calcium [Mass/Vol] 8.7 mg/dL Normal 8.5-10.1 [facility] Comment on above: Performed By: #### B MP, BNP #### [facility] [address] [place] [address] [address] Aaron Ling Chloride [Moles/Vol] 106 mmol/L Normal 98-107 [facility] Comment on above: Performed By: #### B MP, BNP #### [facility] [address] [place] [address] [address] Aaron Ling CO2 [Moles/Vol] 30.9 mmol/L Normal 21.0-32.0 [facility] Comment on above: Performed By: #### B MP, BNP #### [facility] [address] [place] [address] Dr. Aaron Ling Creatinine [Mass/Vol] 2.07 mg/dL Critically high 0.70-1.30 [facility] Comment on above: Performed By: #### B MP, BNP #### [facility] [address] [place] [address] Dr. Aaron Ling EGFR-AF MALTESE 38 mL/min/1.73m2 Critically low >=60 [facility] Comment on above: Performed By: #### B MP, BNP #### [facility] [address] [place] [address] Dr. Aaron Ling EGFR-NON AF MALTESE 31 mL/min/1.73m2 Critically low >=60 [facility] Comment on above: Performed By: #### B MP, BNP #### [facility] [address] [place] [address] [address] Aaron Ling Glucose [Mass/Vol] 138 mg/dL Critically high 74-[address] [facility] Comment on above: Performed By: #### B MP, BNP #### [facility] [address] [place] [address] [address] Aaron Ling Potassium [Moles/Vol] 5.0 mmol/L Normal 3.5-5.1 [facility] Comment on above: Performed By: #### B MP, BNP #### [facility] [address] [place] [address] [address] Aaron Ling Sodium [Moles/Vol] 143 mmol/L Normal 136-145 [facility] Comment on above: Performed By: #### B MP, BNP #### [facility] [address] [place] [address] [address] Aaron Ling Urea nitrogen [Mass/Vol] 43.0 mg/dL Critically high 7.0-18.0 [facility] Comment on above: Performed By: #### B MP, BNP #### [facility] [address] [place] [address] [address] Aaron Ling Urea nitrogen/Creatinine [Mass ratio] 20.8 mg/mg Normal [facility] Comment on above: Performed By: #### B MP, BNP #### [facility] [address] [address] [address] Aaron Ling XR shoulder RT min 2V*on XR shoulder RT min 2V* [facility] [place] [address] [place] [address] XRay Report Signed Patient: Richard Boykin MR#: [id number] : 1940 Acct:[id number] Age/Sex: 81 / M ADM Date: 12/02/21 Loc: [facility] Room: Type: [facility] Attending Dr: Teofilo Person MD Copies to: [...] Rosado Jr., M.D.12/02/2021 1:52 PM Dictation Location: [place] [address] Transcribed By: [facility] 12/02/21 1352 Dictated By: Cyrus Rosado Jr, MD 12/02/21 1351 Signed By: 12/02/21 1352 [facility] BASIC METABOLIC PANEL 10-17 Calcium [Mass/Vol] 8.7 mg/dL Normal 8.6-10.3 [facility] Comment on above: Order Comment: No: D o not add to previous draw Performed By: #### [id number] #### [facility] CENTER [address] [place] [id number], [facility] Chloride [Moles/Vol] 98 mmol/L Normal 98-107 The [facility] Comment on above: Order Comment: No: D o not add to previous draw Performed By: #### 5 0608, 87283 #### [facility] [address] [place] [address], [place] CO2 [Moles/Vol] 29 mmol/L Normal 21-31 [facility] Comment on above: Order Comment: No: D o not add to previous draw Performed By: #### 5 0608, 82175 #### [facility] [address] [place] [address], [place] Creatinine [Mass/Vol] 1.00 mg/dL Normal 0.70-1.30 [facility] Comment on above: Order Comment: No: D o not add to previous draw Performed By: #### 5 0608, 08505 #### [facility] [address] [place] [address], [place] GFR/1.73 sq M.predicted among blacks MDRD (S/P/Bld) [Vol rate/Area] mL/min/{1.73_m2} Normal >60 The [facility] Comment on above: Order Comment: No: D o not add to previous draw Result Comment: Calc ulation may not be valid for patients over 70 years Performed By: #### 5 0608, 36899 #### [facility] [address] [place] [address], [place] GFR/1.73 sq M.predicted among non-blacks MDRD (S/P/Bld) [Vol rate/Area] mL/min/{1.73_m2} Normal >60 The [facility] Comment on above: Order Comment: No: D o not add to previous draw Result Comment: Calc ulation may not be valid for patients over 70 years Performed By: #### 5 0608, 59892 #### [facility] [address] [place] [address], [place] Glucose [Mass/Vol] 288 mg/dL High 70-[address] [facility] Comment on above: Order Comment: No: D o not add to previous draw Performed By: #### 5 06, 72007 #### [facility] [address] [place] [address], [place] Potassium [Moles/Vol] 4.7 mmol/L Normal 3.5-5.1 [facility] Comment on above: Order Comment: No: D o not add to previous draw Performed By: #### 5 06, 49689 #### [facility] [address] [place] [address], [place] Sodium [Moles/Vol] 135 mmol/L Low 136-[address] [facility] Comment on above: Order Comment: No: D o not add to previous draw Performed By: #### 5 0608, 60890 #### [facility] [address] [place] [address], [place] Urea nitrogen [Mass/Vol] 28 mg/dL High 7-25 [facility] Comment on above: Order Comment: No: D o not add to previous draw Performed By: #### 5 06, 59985 #### [facility] [address] CBC COMPLETE BLOOD COUNTon 0 - Erythrocyte distribution width (RBC) [Ratio] 14.3 % Normal 11.5-15.0 [facility] Comment on above: Order Comment: No: D o not add to previous draw Performed By: #### 5 06, 96491 #### [facility] [address] Hematocrit (Bld) [Volume fraction] 42.0 % Normal 39.0-50.0 [facility] Comment on above: Order Comment: No: D o not add to previous draw Performed By: #### 5 06, 37508 #### [facility] [address] [facility] Hemoglobin (Bld) [Mass/Vol] 13.7 g/dL Normal 13.0-17.0 [facility] Comment on above: Order Comment: No: D o not add to previous draw Performed By: #### 5 06, 42399 #### [facility] [address] [facility] [place] [address], [facility] MCH (RBC) [Entitic mass] 31.5 pg Normal 27.0-33.0 [facility] Comment on above: Order Comment: No: D o not add to previous draw Performed By: #### 5 06, 50078 #### [facility] [address] [facility] [place] [address], [facility] MCHC (RBC) [Mass/Vol] 32.6 g/dL Normal 32.0-35.0 [facility] Comment on above: Order Comment: No: D o not add to previous draw Performed By: #### 5 0608, 93717 #### [facility] [address] [place] [address], [facility] MCV (RBC) [Entitic vol] 96.6 fL Normal 82.0-98.0 [facility] Comment on above: Order Comment: No: D o not add to previous draw Performed By: #### 5 06, 86450 #### [facility] [address] [place] [address], [facility] Nucleated RBC/100 WBC (Bld) [Ratio] 0 % Normal 0-0 [facility] Comment on above: Order Comment: No: D o not add to previous draw Performed By: #### 5 607, 47125 #### [facility] [address] [place] [id number], [facility] PLAT CNT 298 10*3/uL Normal 150-400 [facility] Comment on above: Order Comment: No: D o not add to previous draw Performed By: #### 5 06, 29283 #### [facility] [address] [place] [address], [facility] RBC (Bld) [#/Vol] 4.35 10*6/uL Normal 4.20-5.70 [facility] Comment on above: Order Comment: No: D o not add to previous draw Performed By: #### 5 607, 28089 #### [facility] [address] [address], [facility] WBC (Bld) [#/Vol] 10.30 10*3/uL Normal 4.00-10.60 [facility] Comment on above: Order Comment: No: D o not add to previous draw Performed By: #### 5 06, 70980 #### [facility] [address] [place] [address], [facility] MAGNESIUM BLOODon 11-02-2021 Magnesium [Mass/Vol] 2.0 mg/dL Normal 1.9-2.7 The [facility] Comment on above: Order Comment: No: D o not add to previous draw Performed By: #### 5 06, 01442 #### [facility] [address] [place] [id number], [facility] POC GLUCOSE LABon 11-02-2021 Glucose [Mass/Vol] 296 mg/dL High 70-[address] [facility] Comment on above: Performed By: #### 5 7307, 73388 #### [facility] [address] [facility] [address], [facility] Glucose [Mass/Vol] 262 mg/dL High 70-[address] [facility] Comment on above: Performed By: #### 5 7307, 44288 #### [facility] [address] [place] [address], [facility] PORTABLE CHEST 1 VIEWon 10-17 PORTABLE CHEST 1 VIEW [facility] Department of Radiology [address] [place] [address] Patient Name: RICHARD BOYKIN : 1940 Sex: M Age: Race: NA Pt. Location: [address] [place] [address] Patient Status: I Ordered Date: 11/02/2021 12:05:00 [...] effusions. Electronically signed: Guilherme Abarca. Transcribed by: [email or web address], User Resident: Electronically Signed by: GUILHERME ABARCA @ 11/02/2021 12:49 PM Normal [facility] Comment on above: Order Comment: Check Line Position, right arm picc *ANAEROBIC CULTUREon 022 *ANAEROBIC CULTURE Clinical Report: (D) Specimen: FLUID Collected: 11/01/2021 15:30 Status: Final Last Updated: 11/06/2021 07:46 (1) RT SC JOINT CULT RES (Final) No Anaerobes Isolated 5 Days Normal [facility] Comment on above: Order Comment: Check Line Position, right arm picc Performed By: #### 3 0312 ####[facility] [address] *ANAEROBIC CULTURE Clinical Report: (D) Specimen: TISSUE Collected: 11/01/2021 15:10 Status: Final Last Updated: 11/06/2021 07:46 (1) RT SC JOINT CULT RES (Final) No Anaerobes Isolated 5 Days Normal [facility] Comment on above: Order Comment: Check Line Position, right arm picc Performed By: #### 3 0312 ####[facility] [place] [address], [facility] *BODY FLUID CULTUREon 2021 *BODY FLUID CULTURE Clinical Report: (D) Specimen: FLUID Collected: 11/01/2021 15:30 Status: Final Last Updated: 11/06/2021 06:31 (1) RT SC JOINT GRAM (Final) Quantity Not Sufficient CULT RES (Final) No Growth Day 5 Normal [facility] Comment on above: Order Comment: RT SC JOINT Performed By: #### 5 0608, 91813 #### [address] *FUNGAL CULTUREon 11-01-2021 *FUNGAL CULTURE Clinical Report: (D) Specimen: TISSUE Collected: 11/01/2021 15:10 Status: Final Last Updated: 12/03/2021 07:55 (1) RT SC JOINT FS (Final) No Yeast or Fungal Elements Seen CULT RES (Final) Culture negative for fungus Normal [facility] Comment on above: Order Comment: Check Line Position, right arm picc Performed By: #### 3 0323 ####[address] *TISSUE CULTUREon 11-01-2021 *TISSUE CULTURE Clinical Report: (D) Specimen: TISSUE Collected: 11/01/2021 15:10 Status: Final Last Updated: 11/06/2021 06:37 (1) RT SC JOINT GRAM (Final) Moderate Polys No Bacteria Seen CULT RES (Final) No Growth Day 5 Normal [facility] Comment on above: Order Comment: Check Line Position, right arm picc Performed By: #### 3 0338 ####[address] BIOPSY ARM/WRIST SOFT TIS KIMBERLEY RIGHTon 11-01-2021 CT BIOPSY ARM/WRIST SOFT TISSUE RIGHT [facility] Department of Radiology [address] [place] [id number] Patient Name: RICHARD BOYKIN : 1940 Sex: M Age: Race: NA Pt. Location: [address] [place] [address] Patient Status: D Ordered Date: 11/01/2021 8:00:00 [...] risks are acceptable. Consent was obtained. Timeout: [place] protocol timeout verification performed. MEDICATIONS: 1 mg [...] report. Electronically signed: Tara Hall. 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 Will order aspiraton of the proximal RIGHT sternoclavicular joint seperately POC GLUCOSE LABon 11-01-2021 Glucose [Mass/Vol] 326 mg/dL High 70-[address] [facility] Comment on above: Performed By: #### 5 7335, 65083 #### [facility] [address] [facility] [address], [facility] Glucose [Mass/Vol] 245 mg/dL High 70-[address] [facility] Comment on above: Performed By: #### 5 7307, 86628 #### [facility] [address] [place] [address], [facility] Glucose [Mass/Vol] 299 mg/dL High 70-[address] [facility] Comment on above: Performed By: #### 5 7307, 43105 #### [facility] [address] [facility] [place] [address], [facility] Glucose [Mass/Vol] 227 mg/dL High 70-100 [facility] Comment on above: Performed By: #### 5 7307, 10052 #### [facility] [address] [facility] [place] [address], [facility] POC SARS COV2 IDon 2 SARS-CoV-2 (COVID-19) RNA KIKO+probe Ql (Unsp spec) Negative Normal NEGATIVE The [facility] Comment on above: Result Comment: ID N [...] of Accreditation. Performed By: #### 5 0608, 04820 #### [facility] [address] [facility] [place] [address], [facility] POC GLUCOSE LABon 10-31-2021 Glucose [Mass/Vol] 236 mg/dL High 70-[address] [facility] Comment on above: Performed By: #### 5 7307, 13516 #### [facility] [address] [facility] [place] [address], [place] Glucose [Mass/Vol] 274 mg/dL High 70-[address] [facility] Comment on above: Performed By: #### 5 7307, 37716 #### [facility] [address] [place] [address], [facility] Glucose [Mass/Vol] 317 mg/dL High 70-[address] [facility] Comment on above: Performed By: #### 5 7307, 09653 #### [facility] [address] [facility] [place] [address], [facility] Glucose [Mass/Vol] 225 mg/dL High 70-[address] [facility] Comment on above: Performed By: #### 5 7307, 81421 #### [facility] [address] *BLOOD CULTUREon 10-30-2021 *BLOOD CULTURE Clinical Report: (D) Specimen: BLOOD CULTURE Collected: 10/29/2021 23:08 Status: Final Last Updated: 11/04/2021 08:31 CULT RES (Final) No Growth Day 5 Normal [facility] Comment on above: Performed By: #### 5 7307, 77493 #### [facility] [address] APTTon 10-30-2021 aPTT Coag (Bld) [Time] 51.2 s High 25.0-35.0 [facility] Comment on above: Order Comment: No: D [...] THIS PURPOSE. Performed By: #### 5 0608, 48277 #### [facility] [address] [facility]. [address] BASIC METABOLIC PANELon 05- Calcium [Mass/Vol] 8.9 mg/dL Normal 8.6-10.3 [facility] Comment on above: Order Comment: No: D o not add to previous drawMissed Performed By: #### 5 0608, 36966 #### [facility] [address] [place] [address], [place] Chloride [Moles/Vol] 99 mmol/L Normal 98-107 [facility] Comment on above: Order Comment: No: D o not add to previous drawMissed Performed By: #### 5 0608, 58851 #### [facility] [address] [place] [address], [place] CO2 [Moles/Vol] 27 mmol/L Normal 21-31 [facility] Comment on above: Order Comment: No: D o not add to previous drawMissed Performed By: #### 5 0608, 68713 #### [facility] [address] [place] [address], [place] Creatinine [Mass/Vol] 1.08 mg/dL Normal 0.70-1.30 [facility] Comment on above: Order Comment: No: D o not add to previous drawMissed Performed By: #### 5 0608, 30057 #### [facility] [address] [place] [address], [place] GFR/1.73 sq M.predicted among blacks MDRD (S/P/Bld) [Vol rate/Area] mL/min/{1.73_m2} Normal >60 [facility] Comment on above: Order Comment: No: D o not add to previous drawMissed Result Comment: Calc ulation may not be valid for patients over 70 years Performed By: #### 5 0608, 08260 #### [facility] [address] [place] [address], [place] GFR/1.73 sq M.predicted among non-blacks MDRD (S/P/Bld) [Vol rate/Area] mL/min/{1.73_m2} Normal >60 The [facility] Comment on above: Order Comment: No: D o not add to previous drawMissed Result Comment: Calc ulation may not be valid for patients over 70 years Performed By: #### 5 0608, 70039 #### [facility] [address] [place] [address], [place] Glucose [Mass/Vol] 257 mg/dL High 70-[address] [facility] Comment on above: Order Comment: No: D o not add to previous drawMissed Performed By: #### 5 0608, 26100 #### [facility] [address] [place] [address], [place] Potassium [Moles/Vol] 4.5 mmol/L Normal 3.5-5.1 [facility] Comment on above: Order Comment: No: D o not add to previous drawMissed Performed By: #### 5 0632, 13586 #### [facility] [address] [place] [address], [place] Sodium [Moles/Vol] 135 mmol/L Low 136-[address] [facility] Comment on above: Order Comment: No: D o not add to previous drawMissed Performed By: #### 5 0674, 11673 #### [facility] [address] [place] [address], [place] Urea nitrogen [Mass/Vol] 27 mg/dL High 7-25 [facility] Comment on above: Order Comment: No: D o not add to previous drawMissed Performed By: #### 5 0608, 76715 #### [facility] [address] [place] [address], [place] C REACTIVE PROTEINon 022 CRP [Mass/Vol] 278.0 mg/L High 0.0-7.0 The [facility] Comment on above: Order Comment: No: D o not add to previous draw Performed By: #### 5 7325, 59401 #### [facility] [address] [place] [id number], [facility] CBC COMPLETE BLOOD COUNTon 0 10-30-2021 Erythrocyte distribution width (RBC) [Ratio] 14.6 % Normal 11.5-15.0 The [facility] Comment on above: Order Comment: No: D o not add to previous draw Missed Performed By: #### 5 06, 42687 #### [facility] [address] [place] [id number], [facility] Hematocrit (Bld) [Volume fraction] 41.4 % Normal 39.0-50.0 [facility] Comment on above: Order Comment: No: D o not add to previous draw Missed Performed By: #### 5 06, 87096 #### [facility] [address] [place] [address], [facility] Hemoglobin (Bld) [Mass/Vol] 13.9 g/dL Normal 13.0-17.0 [facility] Comment on above: Order Comment: No: D o not add to previous draw Missed Performed By: #### 5 06, 68785 #### [facility] [address] [place] [id number], [facility] MCH (RBC) [Entitic mass] 32.0 pg Normal 27.0-33.0 [facility] Comment on above: Order Comment: No: D o not add to previous draw Missed Performed By: #### 5 06, 28478 #### [facility] [address] [place] [address], [facility] MCHC (RBC) [Mass/Vol] 33.6 g/dL Normal 32.0-35.0 [facility] Comment on above: Order Comment: No: D o not add to previous draw Missed Performed By: #### 5 06, 49618 #### [facility] [address] [place] [address], [facility] MCV (RBC) [Entitic vol] 95.2 fL Normal 82.0-98.0 [facility] Comment on above: Order Comment: No: D o not add to previous draw Missed Performed By: #### 5 0608, 64276 #### [facility] [address] [place] [id number], [place] Nucleated RBC/100 WBC (Bld) [Ratio] 0 % Normal 0-0 [facility] Comment on above: Order Comment: No: D o not add to previous draw Missed Performed By: #### 5 0608, 66274 #### [facility] [address] [place] [address], [place] PLAT CNT 211 10*3/uL Normal 150-400 [facility] Comment on above: Order Comment: No: D o not add to previous draw Missed Performed By: #### 5 06, 93886 #### [facility] [address] [place] [id number], [facility] RBC (Bld) [#/Vol] 4.35 10*6/uL Normal 4.20-5.70 [facility] Comment on above: Order Comment: No: D o not add to previous draw Missed Performed By: #### 5 0608, 74706 #### [facility] [address] [place] [id number], [place] WBC (Bld) [#/Vol] 9.94 10*3/uL Normal 4.00-10.60 [facility] Comment on above: Order Comment: No: D o not add to previous draw Missed Performed By: #### 5 0608, 18068 #### [facility] [address] [place] [address], [place] LACTATE WITH REFLEXon 2021 Lactate [Moles/Vol] 1.5 mmol/L Normal .5-2.2 [facility] Comment on above: Order Comment: No: D o not add to previous draw Performed By: #### 3 1414 #### [facility] [address] [place] [address], [place] MAGNESIUM BLOODon 10-30-2021 Magnesium [Mass/Vol] 2.0 mg/dL Normal 1.9-2.7 The [facility] Comment on above: Order Comment: No: D o not add to previous draw Performed By: #### 5 7307, 79524 #### [facility] [address] [place] [address], [place] PHOSPHORUS BLOODon 2 Phosphate [Mass/Vol] 3.0 mg/dL Normal 2.5-5.0 The [facility] Comment on above: Order Comment: No: D o not add to previous draw Performed By: #### 5 73Kimberly, 16140 #### [facility] [address] [place] [address], [place] POC GLUCOSE LABon 10-30-2021 Glucose [Mass/Vol] 355 mg/dL High 70-100 [facility] Comment on above: Performed By: #### 5 73Kimberly, 20608 #### [facility] [address] [place] [address], [place] Glucose [Mass/Vol] 318 mg/dL High 70-100 [facility] Comment on above: Performed By: #### 5 7307, 90191 #### [facility] [address] [place] [address], [place] Glucose [Mass/Vol] 244 mg/dL High 70-100 [facility] Comment on above: Performed By: #### 5 7307, 60883 #### [facility] [address] [place] [address], [place] Glucose [Mass/Vol] 294 mg/dL High 70-[address] [facility] Comment on above: Performed By: #### 5 7307, 74297 #### [facility] [address] [place] [address], [place] PROTHROMBIN TIMEon 2 INR Coag (PPP) [Relative time] 1.09 {INR} Normal 0.91-1.16 The [facility] Comment on above: Order Comment: No: D [...] CHEST 1995;[id number]. Performed By: #### 5 0608, 06311 #### [facility] [address] [employer] PT Coag (PPP) [Time] 14.1 s Normal 12.3-14.8 The [facility] Comment on above: Order Comment: No: D o not add to previous drawMissed Result Comment: ALL RESULTS MUST BE INTERPRETED WITH RESPECT TO BLOOD DRAWING ARTIFACT OR DILUTION ERROR OF ANTICOAGULANT AT THE TIME OF SAMPLING. Performed By: #### 5 0608, 13111 #### [facility] [address] SEDIMENTATION RATEon 022 SED RATE 43 mm/hr High 0-10 [facility] Comment on above: Performed By: #### 5 0608, 35187 #### [facility] [address] [place] [address], [facility] *BLOOD CULTUREon 10-29-2021 *BLOOD CULTURE Clinical Report: (D) Specimen: BLOOD CULTURE Collected: 10/29/2021 21:05 Status: Final Last Updated: 11/04/2021 08:31 (1) LH 2051 CULT RES (Final) No Growth Day 5 Normal [facility] Comment on above: Order Comment: No: D o not add to previous draw Performed By: #### 5 7307, 92153 #### [facility] [address] *BLOOD CULTURE Clinical Report: (D) Specimen: BLOOD CULTURE Collected: 10/29/2021 21:05 Status: Final Last Updated: 11/04/2021 08:31 (1) RH 2099 CULT RES (Final) No Growth Day 5 Normal [facility] Comment on above: Order Comment: Check Line Position, right arm picc Performed By: #### 3 0313 ####[facility] [address] APTTon 10-29-2021 aPTT Coag (Bld) [Time] 47.5 s High 25.0-35.0 [facility] Comment on above: Order Comment: [...] THIS PURPOSE. Performed By: #### 5 7307, 52596 #### [facility] [address] BASIC METABOLIC PANELon 10-17 Calcium [Mass/Vol] 8.7 mg/dL Normal 8.6-10.3 [facility] Comment on above: Order Comment: No: D o not add to previous draw Performed By: #### 1 0070, 37838, 76112, 29985 #### [facility] [address] [place] [address], [facility] Chloride [Moles/Vol] 100 mmol/L Normal 98-107 [facility] Comment on above: Order Comment: No: D o not add to previous draw Performed By: #### 1 0070, 26815, 21251, 94809 #### [facility] [address] [place] [address], [place] CO2 [Moles/Vol] 25 mmol/L Normal 21-31 The [facility] Comment on above: Order Comment: No: D o not add to previous draw Performed By: #### 1 0070, 60264, 18025, 04565 #### [facility] [address] [place] [address], [facility] Creatinine [Mass/Vol] 1.14 mg/dL Normal 0.70-1.30 [facility] Comment on above: Order Comment: No: D o not add to previous draw Performed By: #### 1 0070, 27315, 65067, 47812 #### [facility] [address] [place] [address], [place] GFR/1.73 sq M.predicted among blacks MDRD (S/P/Bld) [Vol rate/Area] mL/min/{1.73_m2} Normal >60 The [facility] Comment on above: Order Comment: No: D o not add to previous draw Result Comment: Calc ulation may not be valid for patients over 70 years Performed By: #### 1 0070, 57637, 09894, 02040 #### [facility] [address] [place] [address], [place] GFR/1.73 sq M.predicted among non-blacks MDRD (S/P/Bld) [Vol rate/Area] mL/min/{1.73_m2} Normal >60 The [facility] Comment on above: Order Comment: No: D o not add to previous draw Result Comment: Calc ulation may not be valid for patients over 70 years Performed By: #### 1 0070, 60896, 59583, 45332 #### [facility] [address] [place] [address], [facility] Glucose [Mass/Vol] 261 mg/dL High 70-[address] [facility] Comment on above: Order Comment: No: D o not add to previous draw Performed By: #### 1 0070, 94117, 92395, 78822 #### [facility] [address] [place] [address], [facility] Potassium [Moles/Vol] 4.4 mmol/L Normal 3.5-5.1 The [facility] Comment on above: Order Comment: No: D o not add to previous draw Performed By: #### 1 0070, 13095, 09195, 85513 #### [facility] [address] [place] [address], [facility] Sodium [Moles/Vol] 134 mmol/L Low 136-[address] [facility] Comment on above: Order Comment: No: D o not add to previous draw Performed By: #### 1 0070, 58128, 51503, 50904 #### [facility] [address] [place] [address], [facility] Urea nitrogen [Mass/Vol] 30 mg/dL High 7-25 The [facility] Comment on above: Order Comment: No: D o not add to previous draw Performed By: #### 1 0070, 85822, 78893, 28333 #### [facility] [address] [place] [address], [place] LIVER BATTERYon 10-29-2021 Albumin [Mass/Vol] 3.0 g/dL Low 3.5-5.[address] [facility] Comment on above: Order Comment: No: D o not add to previous draw Missed twice. Rhiannon Riojas notified. Performed By: #### 1 0070, 93571, 67456, 51195 #### [facility] [address] [place] [address], [place] ALKALINE PHOSPH 159 IU/L High 34-104 [facility] Comment on above: Order Comment: No: D o not add to previous draw Missed twice. Rhiannon Riojas notified. Performed By: #### 1 0070, 83504, 81498, 94438 #### [facility] [address] [place] [address], [place] ALT [Catalytic activity/Vol] 25 U/L Normal 7-52 The [facility] Comment on above: Order Comment: No: D o not add to previous draw Missed twice. Rhiannon Riojas notified. Performed By: #### 1 0070, 14675, 11161, 79108 #### [facility] [address] [place] [address], [facility] AST [Catalytic activity/Vol] 40 U/L High 13-39 [facility] Comment on above: Order Comment: No: D o not add to previous draw Missed twice. Rhiannon Riojas notified. Performed By: #### 1 0070, 07146, 42759, 26403 #### [facility] [address] [place] [address], [place] Bilirubin [Mass/Vol] 0.8 mg/dL Normal 0.3-1.0 [facility] Comment on above: Order Comment: No: D o not add to previous draw Missed twice. Rhiannon Riojas notified. Performed By: #### 1 0070, 45229, 41452, 83281 #### [facility] [address] [place] [address], [place] Bilirubin.direct [Mass/Vol] 0.1 mg/dL Normal 0.0-0.2 The [facility] Comment on above: Order Comment: No: D o not add to previous draw Missed twice. Rhiannon Riojas notified. Performed By: #### 1 0070, 84750, 23020, 96759 #### [facility] [address] [place] [address], [place] Protein [Mass/Vol] 6.7 g/dL Normal 6.0-8.3 [facility] Comment on above: Order Comment: No: D o not add to previous draw Missed twice. Rhiannon Riojas notified. Performed By: #### 1 0070, 00897, 06021, 76520 #### [facility] [address] [place] [address], [facility] MAGNESIUM BLOODon 10-29-2021 Magnesium [Mass/Vol] 2.1 mg/dL Normal 1.9-2.7 The [facility] Comment on above: Order Comment: No: D o not add to previous draw Performed By: #### 1 0070, 48647, 00298, 00416 #### [facility] [address] [place] [address], [facility] PHOSPHORUS BLOODon 2 Phosphate [Mass/Vol] 2.7 mg/dL Normal 2.5-5.0 [facility] Comment on above: Order Comment: No: D o not add to previous draw Performed By: #### 1 0070, 50575, 54126, 80234 #### [facility] [address] [place] [address], [facility] POC GLUCOSE LABon 10-29-2021 Glucose [Mass/Vol] 262 mg/dL High 70-[address] [facility] Comment on above: Performed By: #### 5 7307, 76394 #### [facility] [address] [facility] [place] [address], [facility] PROTHROMBIN TIMEon 2 INR Coag (PPP) [Relative time] 1.05 {INR} Normal 0.91-1.16 [facility] Comment on above: Order Comment: No: D [...] CHEST 1995;108:[id number]-246S. Performed By: #### 5 7307, 87479 #### [facility] [address] [facility]. [address] PT Coag (PPP) [Time] 13.7 s Normal 12.3-14.8 The [facility] Comment on above: Order Comment: No: D o not add to previous draw Result Comment: ALL RESULTS MUST BE INTERPRETED WITH RESPECT TO BLOOD DRAWING ARTIFACT OR DILUTION ERROR OF ANTICOAGULANT AT THE TIME OF SAMPLING. Performed By: #### 5 7307, 10851 #### [facility] [address] [facility] XR knee RT 2Von 03-11-2021 XR knee RT 2V [facility] [place] [address] XRay Report Signed Patient: Richard Boykin MR#: [id number] : 1940 Acct:[id number] Age/Sex: 80 / M ADM Date: 03/11/21 Loc: [facility] Room: Type: [facility] Attending Dr: Godfrey Gomez MD Ordering Provider: [...] fracture or hardware complication. Impression dictated by: Jaam Callejas M.D.03/11/2021 1:29 PM Dictation Location: [place] [address] Transcribed By: [facility] 03/11/21 1329 Dictated By: Jama Callejas II, MD 03/11/21 1328 Signed By: 03/11/21 1329 [facility] XR knee RT 2V [facility] [employer] Other XR knee RT 2V [facility] Main [facility] [employer] Other XR knee RT 2V [address] [place] [address] [employer] Other XR knee RT 2V [address] [employer] Other XR knee RT 2V XRay Report [facility] [employer] Other XR knee RT 2V Signed [employer] Other XR knee RT 2V Patient: Richard Boykin MR#: [id number] [place] [employer] Other XR knee RT 2V : 1940 Acct:[id number] [place] [employer] Other XR knee RT 2V Age/Sex: 80 / M ADM Date: 03/11/21 [employer] Other XR knee RT 2V Loc: [place] Room: Type: [facility] [employer] Other XR knee RT 2V Attending Dr: Godfrey Gomez MD [employer] Other XR knee RT 2V Ordering Provider: Godfrey Gomez MD [employer] Other XR knee RT 2V Date of Service: 03/11/21 [employer] Other XR knee RT 2V XR/XR knee RT 2V: Arthritis of right knee [employer] Other XR knee RT 2V Copies to: Godfrey Gomez MD [employer] Other XR knee RT 2V XR knee RT 2V 03/11/2021 7:52 AM [employer] Other XR knee RT 2V SIGNS AND SYMPTOMS: Status post total right knee arthroplasty placement, follow-up [employer] Other XR knee RT 2V PROTOCOL: Frontal and lateral graphs of the right knee [employer] Other XR knee RT 2V COMPARISON: 10/08/2020 [employer] Other XR knee RT 2V FINDINGS: [employer] Other XR knee RT 2V There is total right knee arthroplasty hardware without hardware complication or malalignment. [employer] Other XR knee RT 2V There is no significant soft tissue swelling. No evidence of fracture. Vascular calcifications are [employer] Other XR knee RT 2V present posteriorly. [employer] Other XR knee RT 2V XR/XR knee RT 2V [employer] Other XR knee RT 2V IMPRESSION: [employer] Other XR knee RT 2V Unchanged total right knee arthroplasty hardware. No fracture or hardware complication. [employer] Other XR knee RT 2V Impression dictated by: Jama Callejas M.D.03/11/2021 1:29 PM [employer] Other XR knee RT 2V Dictation Location: [place] [address] [employer] Other XR knee RT 2V Transcribed By: FLAVIA 03/11/21 1329 [employer] Other XR knee RT 2V Dictated By: Jama Callejas II, MD 03/11/21 1325 [place] [employer] Other XR knee RT 2V Signed By: [employer] Other XR knee RT 2V 03/11/21 1329 [facility] [employer] Other Vital Signs Date Time Vital Sign Value Performing Clinician Facility 10-23-2024 15:46-0400 Body height 180.34 cm [facility] 10-23-2024 15:46-0400 Body mass index (BMI) [Ratio] 32.1 kg/m2 [facility] 10-23-2024 15:46-0400 Body weight 104.38 kg [facility] 10-23-2024 15:46-0400 Diastolic blood pressure 73 mm[Hg] [facility] 10-23-2024 15:46-0400 Heart rate 47 /min [facility] 10-23-2024 15:46-0400 Respiratory rate 16 /min [facility] 10-23-2024 15:46-0400 SaO2% (BldA) [Mass fraction] 99 % [facility] 10-23-2024 15:46-0400 Systolic blood pressure 108 mm[Hg] [facility] 10-10-2024 09:00-0400 Body height 180.3 cm Willian Shaikh MD Work Phone: [facility] 10-10-2024 09:00-0400 Body mass index (BMI) [Ratio] 31.38 kg/m2 Willian Shaikh MD Work Phone: [facility] 10-10-2024 09:00-0400 Body temperature 98.1 [degF] Willian Shaikh MD Work Phone: [facility] 10-10-2024 09:00-0400 Body weight 102.06 kg Willian Shaikh MD Work Phone: [facility] 10-10-2024 09:00-0400 Diastolic blood pressure 68 mm[Hg] Willian Shaikh MD Work Phone: [facility] 10-10-2024 09:00-0400 Heart rate 68 /min Willian Shaikh MD Work Phone: [facility] 10-10-2024 09:00-0400 SaO2% (BldA) [Mass fraction] 97 % Willian Shaikh MD Work Phone: [facility] 10-10-2024 09:00-0400 Systolic blood pressure 124 mm[Hg] Willian Shaikh MD Work Phone: [facility] 12-02-2021 11:15-0400 Body height 177.8 cm Teofilo Person Other [employer] Other Encounters Encounter Date Encounter Type Care Provider Facility Start: 02-06-2025 ambulatory [facility] Facility: [facility] Start: 01-16-2025 End: 01-16-2025 ambulatory [facility]: [facility] Start: 01-02-2025 End: 01-02-2025 ambulatory [facility] Facility: [facility] Start: 01-02-2025 ambulatory [facility] Facility: [facility] Start: 12-04-2024 End: 12-04-2024 ambulatory [facility] Facility: [facility] Start: 10-28-2024 End: 10-28-2024 ambulatory [facility] Start: 10-23-2024 End: 10-23-2024 ambulatory [facility] Work Phone: Start: 10-23-2024 End: 10-23-2024 Patient encounter procedure [facility] [place] Work Phone: Start: 10-18-2024 End: 10-18-2024 ambulatory [facility] Facility:[facility] Start: 10-10-2024 End: 10-10-2024 Office outpatient new 45 minutes Willian Shaikh MD Work Phone: [facility] Comment on above: 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 ([facility]) (Primary Dx); Iliac artery stenosis, right; Atherosclerosis of aorta Start: 10-08-2024 ambulatory Rigo Bodie Facility: [facility] Start: 08-07-2024 End: 08-07-2024 ambulatory Marj Sorensen Facility:[facility] Start: 08-07-2024 ambulatory Marj Dugan Edu Facility: [facility] Start: 05-28-2024 ambulatory Marj Sorensen Facility: [facility] Start: 05-21-2024 End: 05-21-2024 ambulatory Marj Sorensen Facility:[facility] Start: 04-18-2024 End: 04-18-2024 ambulatory Marj Sorensen Facility:[facility] Start: 04-18-2024 End: 04-18-2024 ambulatory Marj Sorensen Facility:[facility] Start: 04-04-2024 End: 04-04-2024 ambulatory Marj Sorensen Facility:[facility] Start: 04-04-2024 End: 04-04-2024 ambulatory Marj Sorensen Facility:[facility] Start: 04-01-2024 End: 04-01-2024 ambulatory SWEETIE STEWARTCLINT [facility] Start: 02-28-2024 End: 02-28-2024 ambulatory Marj Sorensen Facility: [facility] Start: 02-06-2024 End: 04-16-2024 ambulatory Marj Sorensen Facility:[facility] Start: 02-27-2023 End: 02-27-2023 ambulatory UNKNOWN PROVIDER Facility:[facility] Start: 10-24-2022 End: 10-25-[address] DOCTOR MALCOLM Facility:[facility] Start: 03-26-2022 End: 03-27-[address] DOCTOR MALCOLM Facility:[facility] Start: 01-19-2022 End: 01-19-2022 Patient encounter procedure MD Marj Sorensen Work Phone: [facility] Start: 12-21-2021 End: 12-22-[address] SWEETIE TOMLINSON Facility:[facility] Start: 12-02-2021 End: 12-02-2021 ambulatory Teofilo Person Other [employer] Other Start: 12-02-2021 Office outpatient visit 25 minutes Teofilo Person [facility] Start: 12-02-2021 End: 12-02-2021 Patient encounter procedure MD Marj Sorensen Work Phone: [facility] [place] Start: 10-29-2021 End: 11-02-2021 Evaluation and management of inpatient MARJ SORENSEN Facility:[facility] Start: 10-29-2021 Telephone encounter Aly koo MD Work Phone: [facility] Start: 10-28-2021 End: 10-28-2021 ambulatory Godfrey Gomez Other [employer] Other Start: 10-28-2021 Telephone encounter Godfrey Gomez [facility] Start: 03-11-2021 Office outpatient visit 15 minutes Lydia Anderson [facility] Procedures Date Procedure Procedure Detail Performing Clinician Start: 12-02-2021 Plain X-ray of right shoulder MD Marj Sorensen Work Phone: Plan of Treatment Date Care Activity Detail Author Start: 02-27-2033 DTaP,Tdap and Td Vaccines (2 - Td or Tdap) DTaP,Tdap and Td Vaccines (2 - Td or Tdap) [employer] Start: 10-10-2025 Tobacco Screening Tobacco Screening [employer] Start: 04-11-2025 End: 10-10-2025 US.doppler Aorta and Iliac artery - bilateral Vas aorta/iliac duplex complete Vascular Ultrasound Routine 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 (CMS-HCC) Iliac artery stenosis, right (CMS-HCC) Atherosclerosis of aorta (CMS-HCC) Expected: 04/11/2025 (Approximate), Expires: 10/10/2025 [employer] Work Phone: Comment on above: Expected: 04/11/2025 (Approximate), Expires: 10/10/2025 Start: 02-17-2025 Influenza vaccination Influenza Vacc ine [employer] Start: 10-10-2024 End: 10-10-2025 US.doppler Lower extremity artery - right Vas art duplex lwr single right Vascular Ultrasound Routine 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 (CMS-HCC) Iliac artery stenosis, right (CMS-HCC) Expected: 10/10/2024, Expires: 10/10/2025 [facility] Comment on above: Expected: 10/10/2024 , Expires: 10/10/2025 Start: 02-18-2024 COVID-19 Vaccine ( season) COVID-19 Vaccine ( season) [facility] Start: 10-29-2021 Welcome to Medicare Visit (G0402) Welcome to Medicare Visit (G0402) [facility] Start: 06-29-2011 Administration of varicella zoster vaccine Zoster (Shingles) Vaccine (2 of 3) [facility] Start: 2006 Fall Risk Screening Fall Risk Screen ing [facility] Start: 2006 Pneumococcal vaccination Pneum ococcal Vaccine(s) (65+ yrs) (1 - PCV) [facility] Start: 1991 Shingles (RZV) Vacci ne (1 of 2) Shingles (RZV) Vaccine (1 of 2) [facility] Start: 1959 Tetanus + diphtheria + acellular pertussis vaccine (product) [facility] Start: 1953 Depression Screening Depression Scre ening [facility] Start: 1946 COVID-19 Vaccine (1) COVID-19 Vaccin e (1) [facility] Renal function 2000 panel - Serum or Plasma [facility] Immunizations Immunization Date Immunization Notes Care Provider Fa cility 04-04-2024 influenza virus vaccine, unspecified formulation Willian Shaikh MD Work Phone: [facility] 02-27-2023 tetanus toxoid, redu piotr diphtheria toxoid, and acellular pertussis vaccine, adsorbed Willian Shaikh MD Work Phone: [facility] 05-04-2011 zoster vaccine, unspecified formulation Willian Shaikh MD Work Phone: [facility] Payers Date Payer Category Payer Managed Care Other (unspecified) [facility] [id number] 2021 Unknown AARP AARP [id number] 2021-Present [address] [place] [address] [id number] 1997 Medicare [id number] [id number] 1959 Medicare [id number] 1959 Unknown [id number] 1940 Unknown [id number] 2.16.840.1.208109.3.579.2. 647 1940 Unknown [id number] 2.16.840.1.887371.3.579.2. 593 1940 Unknown [id number] 2.16.840.1.883526.3.579.2. 593 1941 Unknown [id number] 2.16.840.1.782766.3.579.2. 593 1940 Unknown [id number] 2.16.840.1.206354.3.579.2. 732 1940 Unknown [id number] 2.16.840.1.053076.3.579.2. 718 1940 Unknown [id number] 2.16.840.1.984748.3.579.2. 8 1941 Unknown [id number] 2.16.840.1.424728.3.579.2. 1941 Unknown [id number] 2.16.840.1.310276.3.579.2. 1941 Unknown [id number] 2.16.840.1.043798.3.579.2. 1941 Unknown [id number] 2.16.840.1.370022.3.579.2. 1941 Unknown [id number] 2.16.840.1.741488.3.579.2. 1941 Unknown [id number] 2.16.840.1.379688.3.579.2. 1941 Unknown [id number] 2.16.840.1.766743.3.579.2 1941 Unknown [id number] 2.16.840.1.153979.3.579.2. 1941 Unknown [id number] 2.16.840.1.064690.3.579.2. 1941 Unknown [id number] 2.16.840.1.859994.3.579.2 1941 Unknown [id number] 2.16.840.1.215232.3.579.2 1941 Unknown [id number] 2.16.840.1.421695.3.579.2. 1941 Unknown [id number] 2.16.840.1.163427.3.579.2. 1941 Unknown [id number] 2.16.840.1.740083.3.579.2. 1941 Unknown [id number] 2.16.840.1.121502.3.579.2. 1941 Unknown [id number] 2.16.840.1.067138.3.579.2. 718 1941 Unknown [id number] 2.16.840.1.527474.3.579.2. 718 1941 Unknown [id number] 2.16.840.1.687948.3.579.2. 8 Self-pay Self Pay [id number] Social History Date Type Detail Facility Tobacco smoking status SDIS [facility] consumption [facility] Work Phone: Start: 1940 [facility] Start: 10-10-2024 [facility] Assigned At [facility] [employer] Other Start: 02-27-2020 End: 10-23-2024 Tobacco smoking status [facility] Never smoked tobacco (finding) [facility] Start: 1940 Sex Assigned At Male F [facility] Start: 10-10-2024 Tobacco smoking status [facility] Ex-smoker [facility] End: 06-19-1989 History of tobacco use Current smoker [facility] History of tobacco use Cigarette Smoker [facility] End: 06-19-1989 History of tobacco use Cigar Smoker [facility] Start: 10-10-2024 Tobacco use and exposure Smokeless tobacco non-user [facility] Start: 10-10-2024 Alcoholic beverage intake Ex-drinker (finding) [facility] Start: 10-10-2024 History of Social function [facility] Within the past 12 months we worried whether our food would run out before we got money to buy more. Never True [facility] Start: 11-03-2021 End: 10-23-2024 Sex Male (finding) [facility] Medical Equipment Procedure Code Equipment Code Equipment Origin al Text Equipment Identifier Dates Arthroplasty, knee, total, minimally invasive Orthopaedic cement, non-medicated [id number] FDA Start: 02-27-2020 Arthroplasty, knee, total, minimally invasive Uncoated knee femur prosthesis ()[id number] FDA Start: 02-27-2020 Arthroplasty, knee, total, minimally invasive Tibial insert ()[id number] FDA Start: 02-27-2020 Arthroplasty, knee, total, minimally invasive Polyethylene patella prosthesis ()[id number] FDA Start: 02-27-2020 Arthroplasty, knee, total, minimally invasive Knee stem ()[id number] FDA Start: 02-27-2020 Arthroplasty, knee, total, minimally invasive Uncoated knee tibia prosthesis, metallic ()[id number] FDA Start: 02-27-2020 Clinical Notes 03-11-2021 to [...] Notes from Pharmacy: - First Attempt Ref: [id number] Dispensed Drug: montelukast (montelukast 10 mg oral [...] Notes from Pharmacy: - First Attempt Ref: [id number] Dispensed Drug: metoprolol (Metoprolol Tartrate 25 mg [...] Notes from Pharmacy: - First Attempt Ref: [id number] Dispensed Drug: apixaban (Eliquis 5 mg oral [...] Notes from Pharmacy: - First Attempt Ref: [id number] Dispensed Drug: Atorvastatin Calcium 80 MG Oral Table (more content not included)... [facility] 10-28-2024 Note [place] [facility] Subjective Richard Boykin is a 84 [...] October 29 to November 02, 2021 at [facility] with MSSA bacteremia likely related [...] 3 years ago. He follows with a boatwright. Recent testing: ECG 10/25/2021: Atrial fibrillation, nonspecific [...] walker to ambulate. He continues to see boatwright and has a nurse juan (more content not included)... [facility] 10-23-2024 Evaluation note Diagnosis Onset Date Resolution CKD (chronic kidney disease) stage 3, GFR 30-59 ml/min acute October 23, 2024 3:34pm Hyperlipidemia acute October 23, 025 3:34pm Hypertensive chronic kidney disease with stage 1 through stage 4 chronic ki acute October 232024 3:34pm Secondary hyperparathyroidism acute October 23 3:34pm Type 2 diabetes mellitus with diabetic chronic kidney disease acute October 23, 2024 3:34pm [facility] Work Phone: [phone] 710-231204-24-2025 Evaluation + Plan note* Assessment & Plan [...] mg atorvastatin 80 mg and low-dose Eliquis. [facility]04-24-2025 Miscellaneous Notes* Assessment & Plan Note - [...] mg and low-dose Eliquis. [facility] History of Present illness Narrative* Willian Shaikh MD - 10/10/2024 9:00 AM EDT Images from the original note were not included. To: No primary care provider on file. HPI: Richard Boykin is a 84 y.o. male with Nonhealing wound in the right lower extremity and DAVON of 0.4. He was referred to us by his boatwright and wound clinic. This wound has been [...] mg total) by mouth in the morning. nzsqtdfo-oqpo-RF-calcium &mins (THERAGRAN-M) 9 mg iron-400 mcg tablet [...] Interpersonal Safety: Unknown (08/10/2023) Received from [facility] [place] [facility] Fear of [...] ischemia of right lower extremity with gangrene ([facility]) Willian Shaikh MD, LORRAINE, RPVI, FSVS, FACS [...] you for your understanding. [facility] [facility] NoteUT Cardiology - [facility] Subjective Richard Boykin is a [...] atrial fibrillation (CMS/HCC) Type 2 diabetes mellitus ([facility]/HCC) Diabetes mellitus ([facility]/HCC) Hypertension Peripheral arterial occlusive disease ([facility]/HCC) Peripheral vascular disease ([facility]/HCC) Osteoarthritis Aortic valve stenosis Hyperlipidemia Leg ulcer, left, with unspecified severity ([facility]/HCC) JENARO (acute kidney injury) ([facility]) Allergic rhinitis Cellulitis of toe of right foot Vertigo Fatigue Gastroesophageal reflux disease Heart failure ([facility]/HCC) Idiopathic peripheral neuropathy Immunodeficiency disorder ([facility]/HCC) Morbid obesity ([facility]) Muscle weakness Psoriasis 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 He follows with a boatwright. Recent testing: ECG 10/25/2021: Atrial fibrillation, nonspecific [...] walker to ambulate. He continues to see boatwright and has a nurse that comes to [...] 03/25/2022: He is seen (more content not included)...[facility] 03-13-2024 NoteEntered by Yvonne Lin on March [...] Notes from Pharmacy: - First Attempt Ref: [id number] Dispensed Drug: hydrochlorothiazide-lisinopril (hydrochlorothiazide-lisinopril 12.5 mg-10 mg oral tablet), TAKE 1 TABLET BY MOUTH DAILY Quantity: 30 tab(s) Days Supply: 30 Refills: 11 Substitutions Allowed Notes from Pharmacy: [id number]* Encounter Date Diagnosis Assessment Notes [...] discuss treatment if continues to cause issues [employer] Other 05-18-2022 NoteMR#: [id number] I [facility] Pt. Name: Richard Boykin Admitted: 10/29/2021 Discharged: 11/02/2021 Date of : 1940 Physician: Alicia Sweet MD DISCHARGE SUMMARY FINAL DIAGNOSES: 1. Methicillin-susceptible Staphylococcus aureus bacteremia. 2. Probable septic joint infection. 3. Right knee replacement. 4. New onset atrial fibrillation with RVR. 5. Nonobstructive coronary artery disease and peripheral arterial disease. 6. Rax-qjpxqmt-hvaepobdd diabetes mellitus. 7. Hypertension. HISTORY OF PRESENT [...] remained negative. He had a TTE at [facility] with poor image quality. There were no evidence of secondary source of infection on physical exam. Apparently, his repeat cultures at [facility] on October 24 and October 25, [...] his need for full anticoagulation with the director instructional material on an outpatient basis. He understands that [...] Sweet MD Date Trans: 11/03/2021 09:12 A/lindsay MARSH_EZE:[id number] cc: Marj Sorensen M.D. [address] [place] [id number] Miscellaneous Notes* Telephone Encounter - Aly Mcclelland MD - 10/29/2021 2:59 PM EDT I was called by [facility] about patient with septic arthritis and bacteremia requesting transfer for higher level of care. 81 obese, afib, CAD, PAD, hx hip/knee replacement recently moved back from [place]. Presented on 10/24 with R shoulder pain [...] instability. 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 ([facility]-HCC)- Primary Iliac artery stenosis, right Atherosclerosis of [place] arteries of the extremities, unspecified Atherosclerosis of aorta documented in this [facility] - Reported* Type Description Date Medical History PVD Medical History psoriatic arthritis Medical History diabetes mallitus Medical History Gout arthrits Medical History hypertension Surgical History Bilateral hip replacement Surgical History cataract Surgical History left total hip revision Surgical History [employer] Other InstructionsNot on filedocumented in this encounter [facility] [employer] [facility] Summary Purpose Family History No Family [...] and content) DATE CREATED AUTHOR 12/04/2021 [facility] DATE CREATED AUTHOR AUTHOR'S ORGANIZ ATION 01/31/2022 [facility] DATE CREATED AUTHOR AUTHOR'S ORGANIZ ATION 10/25/2022 [facility] DATE CREATED AUTHOR AUTHOR'S ORGANIZ ATION 02/28/2023 [facility] [employer] [facility] DATE CREATED AUTHOR AUTHOR'S ORGANIZ ATION 10/29/2024 [facility] DATE CREATED AUTHOR AUTHOR'S ORGANIZ ATION 02/03/2025 [facility] REASON FOR VISIT (unrecogniz ed section [...] BE BASED ON THE PRIMARY CLINICAL RECORDS. [facility] [employer] [facility]. provides no warranty or guarantee of the accuracy or completeness of information in this document.
== END 2025-02-05 10:43 | disposition home or self-care (01) ==
LOC: WC 10:42
PROVIDERS: PCP Family Medicine; Visit Provider Physician Assistant
DX: M86.8X8 Other osteomyelitis, other site (principal); E11.621 Type 2 diabetes mellitus with foot ulcer; L97.512 Non-pressure chronic ulcer of other part of right foot with fat layer exposed; L97.514 Non-pressure chronic ulcer of other part of right foot with necrosis of bone; L97.412 Non-pressure chronic ulcer of right heel and midfoot with fat layer exposed
CPT/HCPCS: 73630; G0463

== ENCOUNTER 2025-03-25 10:59 | Outpatient (OUT) | payer MEDICARE, SELFPAY ==
--- OUTSIDE RECORDS SUMMARY | 2007-08-22 03:53 | XMS_ITS | Continuity of Care Document ---
Author Organization [facility] Address [address] [facility] [place] [address] Phone Care Team Providers Care Dental Technician Instructor Name Role Phone Sera COOPER, Jama Unavailable Unavailable Advance Directives Directive Yes / No Effective Date File Name No Information Encounters Encounter Description Practice Location Reason(s) For Visit Diagnoses Date Provider Providers Copied on Encounter [facility] , [facility] [place], [place], [id number], tel:[phone] [place] No Information Sera Yun. [address] [place] [address], [address], . tel:[phone] Referring Provider: Jama Zamora MD, [address] [place] [address], [address]. tel:[phone] Family History Family Member Type Diagnosis Age At Onset No Information Payers Payer name Insurance type Covered democrat ID Authoriza tion(s) Medicare [facility] [id number] Medical [facility] [id number] Social History Type Description Quantity Date Captured [...]
--- OUTSIDE RECORDS SUMMARY | 2025-03-25 11:03 | XMS_ITS | Clinical Summary ---
Author Organization [facility] Address [id number] [address] [place] [address] Care Team Providers Care Senior Strategy Analyst Name Role Phone Unavailable Primary Care Provider [...] mouth daily as needed for allergies. Active ufdmxnqa-whfm-UR-ca lcium &mins (THERAGRAN-M) 9 mg iron-400 mcg [...] Date Diagnosed Date Critical limb ischemia of [facility] lower extremity with gangrene 10/10/2024 Assessment [...] (2 of 3) 06/29/2011 05/04/2011 COVID-19 Vaccine (2024-2 6 season) 2025 05/26/2021, 09/21/2020, 08/20/2020 Influenza Vaccine 02/17/2025 04/04/2024, , 04/01/2022, Additional history exists Tobacco Screening 10/10/2025 10/10/2024 DTaP,Tdap and Td Vaccines (2 - Td or Tdap) 02/27/2033 02/27/2023 [employer] Not on file Insurance MEDICARE [facility] Advance Directives * Full Code (Latest Code Status on File) Date Activated Date Inactivated Comments 02/27/2023 9:26 PM 02/28/2023 1:55 PM
--- OUTSIDE RECORDS SUMMARY | 2025-03-25 11:03 | XMS_ITS | Clinical Summary ---
Author Organization [facility] Address [address] [place] [address] Care Team Providers Care Weight And Balance Control Agent Name Role Phone Unavailable Primary Care Provider Unavailabl e Source Comments The following information is NOT included in Care Everywhere downloads:Psychiatric notes, ECG results, Cardiac Rehab notes, Pulmonary Function notes, data from [employer] (includes but not limited toPregnancy data,audiograms, eye exams, pre-surgical evaluation notes, well-child exam data).[facility] Immunizations Immunization Administration Dates Next Due Influenza, Injectable, Triva lent, Adjuvanted, Preservative Free (DTU=841) 04/03/2020,03/26/2019 Influenza, injectable, high- dose seasonal, quadrivalent, preservative free (IIQ=318) 04/01/2022 Influenza, injectable, quadr ivalent, preservative free (XBR=855) 03/24/2017 Tdap (OIO=059) 02/27/2023 Social History Tobacco Use Types Packs/Day Years Used Date Smoking Tobacco: Never Assessed Sex and Gender Information Value Date Recorded Sex Assigned at Not on file Legal Sex Male 2:35 PM EDT Gender Identity Not on file Sexual Orientation Not on file Plan of Treatment Health Maintenance Due Date Last Done Comments Hepatitis A (HAV) Vaccine (optional start 19+ years) 1960 Pneumococcal Vaccine(s) (50+ yrs) (1 of 1 - PCV) 1991 Shingles (RZV) Vaccine (1 of 2) 1991 Annual Wellness Visit (G0438) 08/17/1998 Hepatitis B (HBV) Vaccine (optional start 60+ years) 2001 RSV vaccine (adult) (1 - 1-d ose 75+ series) 2016 COVID-19 Vaccine (2023-2 5 season) 2025 Influenza Vaccine (#1) 2025 , 04/03/2020, 03/26/2019, Additional history exists Tetanus (Td or Tdap) Booster 02/27/2033 02/27/2023 Tdap Booster Completed 02/27/2023 Insurance MEDICARE DO NOT USE [facility] MEDICARE DO NOT USE [facility]
--- OUTSIDE RECORDS SUMMARY | 2025-03-25 11:03 | XMS_ITS | Continuity of Care Document ---
Author Organization [facility] Address [address] [address] [place] [address] Phone [phone] Care Team Providers Care Heat Treatment Technician Name Role Phone . DOCTOR FORMS, COPIES INTEREST Care Team Inform ation Printing Press Machine Operator Unavailable
--- OUTSIDE RECORDS SUMMARY | 2025-03-25 11:21 | XMS_ITS | CCD ---
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 Operator Name Role Phone Unavailable Primary Care [...] Unavailable MISC, DR SILVA Primary Care Unavailable DAVI, DR PITT Attending Unavailable DAVI, DR PITT Consulting Unavailable MISC, DR SILVA Primary Care Unavailable DAVI, DR PITT Attending Unavailable DAVI, DR PITT Consulting Unavailable DAVI, DR PITT Admitting Unavailable PROVIDER, UNKNOWN Attending Unavailable PROVIDER, UNKNOWN Admitting Unavailable Unavailable Primary Care Provider UnavailSWEETIE Sequeira Attending Unavailable SWEETIE TOMLINSON Attending Unavailable Shelbie Velez MD Attending Provider [phone] NON STAFF Primary Care Provider UnavailShelbie Martinez Attending Unavailable Shelbie Velez Admitting Unavailable Marj Sorensen Primary Care Unavailable Marj Sorensen Admitting Unavailable Marj Sorensen Attending Unavailable Marj Sorensen Primary Care Unavailable Marj Sorensen Attending Unavailable Marj Sorensen Admitting Unavailable Marj Sorensen Primary Care Unavailable Marj Sorensen Admitting Unavailable Marj Sorensen Attending Unavailable Edu, Rigo Primary Care Unavailable Edu, Marj Dugan Attending Unavailable Edu, Marj Dugan Attending Unavailable Edu, Marj Dugan Primary Care Unavailable Edu, Marj Dugan Admitting Unavailable Edu, Marj Dugan Primary Care Unavailable Edu, Marj Dugan Admitting Unavailable Edu, Marj Dugan Attending Unavailable Edu, Marj Dugan Primary Care Unavailable [place], Haritha Bach Attending Unavailable Fede, Haritha Bach Admitting Unavailable Edu, Rigo Primary Care Unavailable Edu, Marj Dugan Admitting Unavailable Edu, Marj Dugan Attending Unavailable MOUKARBEL, SWEETIE Blanco Attending Unavailable MOUKARBEL, SWEETIE Blanco Admitting Unavailable Edu, Rigo Primary Care Unavailable Edu, Marj Dugan Primary Care Unavailable Edu, Marj Dugan Attending Unavailable Edu, Marj Dugan Admitting Unavailable Edu, Marj Dugan Attending Unavailable Edu, Rigo Primary Care Unavailable Edu, Marj Dugan Attending Unavailable Edu, Rigo Primary Care Unavailable Edu, Rigo Primary Care Unavailable Edu, Marj uDgan Attending Unavailable Edu, Rigo Primary Care Unavailable [...] Rigo Primary Care Unavailable Edu, Marj Dugan Admitting Unavailable Edu, Marj Dugan Attending Unavailable Edu, Marj Dugan Primary Care Unavailable Medications Current Medications Medication Drug Class(es) Dates Sig (Normalized) Sig (Original) 8 hr acetaminophen 650 mg extended release oral tablet (8 sources) Start: 02-12-2020 take 1 tablet by mouth three times daily as needed for pain Acetaminophen (Tylenol Arthritis Pain) 650 mg Tablet Extended Release Active 650 MG PO Three times daily as needed for Pain February 12, 2020 12:00am Complies with drug therapy acetaminophen (T YLENOL EXTRA STRENGTH) 500 mg tablet Take 650 mg by mouth every 8 (eight) hours. Active take 1 tablet by toma th every four hours Tylenol 325 MG 1 tablet as needed Orally every 4 hrs prn Active allopurinol 300 mg oral tablet (5 sources) Xanthine Oxidase Inhibitor Start: 02-12-2020 take 1 tablet by mouth once daily Allopurinol 300 mg Tablet Active 300 MG PO Daily February 12, 2020 12:00am Complies with drug therapy apixaban 5 mg oral tablet (4 sources) Factor Xa Inhibitor Start: 10-23-2024 take 2.5 mg by mouth twice daily Apixaban (Eliquis) 5 mg tablet Active 2.5 MG PO Twice daily October 23, 2024 12:00am Complies with drug therapy take 1 tablet by toma th in [...] aspirin 81 mg delayed release oral tablet (11 sources) Platelet Aggregation Inhibitor, Nonsteroidal Anti-inflammatory Drug Start: 10-23-2024 Aspirin (Adult Lo w Dose Aspirin) 81 mg tablet,delayed release (DR/EC) Active 81 MG PO Daily October 23, 2024 12:00am Complies with drug therapy Start: 02-12-2020 End: 10-23-2024 take 1 tablet by mouth once daily Aspirin,Buffd-Calcium Carb-Mag 325 mg Tablet Discontinued 325 MG PO Daily February 12, 2020 12:00am October 23, 2024 3:57pm aspirin 81 mg ch ewable tablet Chew 1 tablet (81 mg total) and swallow in the morning. Active atorvastatin 80 mg oral tablet (4 sources) HMG-CoA Reductase Inhibitor Start: 10-23-2024 take 1 tablet by mouth once daily Atorvastatin 80 mg tablet Active 80 MG PO Daily October 23, 2024 12:00am Complies with drug therapy take 1 tablet by mouth in the [...] 0.6 mg oral tablet (3 sources) Start: 09-24-20 20 Colchicine 0.6 MG 2 tablet when picked up then take 1 tablet 1 hour later Orally Once a day for 30 day(s) Feb, Active empagliflozin 10 mg oral tablet (11 sources) Sodium-Glucose Cotransporter 2 Inhibitor Start: 02-12-20 End: 10-24-19 25 take 1 tablet by mouth once daily Empagliflozin (Jardiance) 10 mg tablet Active 25 MG PO Daily October 23, 2024 3:56pm States I take on according to my BS. Complies with drug therapy take 1 tablet by mouth in the mo rning empagliflozin (JARDIANCE) 25 mg tablet tablet Take 1 tablet (25 mg total) by mouth in the morning. Active fluticasone propionate 0.05 mg/actuat metered dose nasal spray (9 sources) Corticosteroid Start: 02-12-2020 End: 02-26-2025 Fluticasone Propionate 50 mcg/actuation spray,suspension Active 1 SPRAY INTRANASAL Daily as needed for sinus sx. February 26, 2025 4:06pm Complies with drug therapy take 1 spray(s) nasa l route in the morning fluticasone propionate (FLONASE) 50 mcg/actuation nasal spray Administer 1 spray into each nostril in the morning. Active take 1 spray(s) nasal route once daily Fluticasone Propionate 50 MCG/ACT 1 spray in each nostril Nasally Once a day Active furosemide 40 mg oral tablet (4 sources) Loop Diuretic Start: 10-23-2024 take 1 tablet by mouth once daily Furosemide 40 mg tablet Active 40 MG PO Daily October 23, 2024 12:00am Complies with drug therapy take 1 tablet by mouth once lalita y furosemide (LASIX) 40 mg tablet Take 1 tablet (40 mg total) by mouth daily. Morning Active glimepiride 4 mg oral tablet (8 sources) Sulfonylurea Start: 02-12-2020 take 1 tablet by mouth twice daily Glimepiride 4 mg Tablet Active 4 MG PO Twice daily February 12, 2020 12:00am Complies with drug therapy take 1 tablet by toma th every twenty-four hours Glimepiride 4 MG 1 tablet with breakfast or the first main meal of the day Orally Once a day Active hydroCHLOROthiazide 25 mg oral tablet (8 sources) Thiazide Diuretic Start: 02-26-2025 take 1 tablet by mouth once daily Hydrochlorothiazide 25 mg tablet Active 25 MG PO Daily February 26, 2025 12:00am Complies with drug therapy Start: 02-12-2020 End: 02-26-2025 take 1 tablet by mouth once daily Hydrochlorothiazide 12.5 mg Tablet Discontinued 12.5 MG PO Daily February 12, 2020 12:00am February 26, 2025 4:12pm take 1 capsule by [facility] every twenty-four hours hydroCHLOROthiazide 12.5 MG 1 capsule in the morning Orally Once a day Active 1.5 ml insulin glargine 300 unt/ml pen injector (3 sources) Insulin Analog Start: 10-23-2024 inject 300 [IU] by subcutaneous injection once daily Insulin Glargine U-300 Conc (Toujeo Solostar U-300 Insulin) 300 unit/mL (1.5 mL) insulin pen Active 300 UNIT SUBCUT Daily October 23, 2024 12:00am Complies with drug therapy TOUJEO SOLOSTAR U-300 INSULIN 300 unit/mL (1.5 mL) insulin pen Inject under the skin nightly. Active Insulin Glargine U-300 Conc (Toujeo Solostar U-300 Insulin) 300 unit/mL (1.5 mL) insulin pen (1 source) Start: 10-23-2024 inject 300 [IU] by subcutaneous injection once daily Insulin Glargine U-300 Conc (Toujeo Solostar U-300 Insulin) 300 unit/mL (1.5 mL) insulin pen Active 300 UNIT SUBCUT Daily October 23, 2024 12:00am levothyroxine sodium 0.05 mg oral tablet (16 sources) l-Thyrox ine Start: 02-26-2025 take 1 tablet by mouth once daily Levothyroxine 50 mcg tablet Active 50 MCG PO Daily February 26, 2025 12:00am Complies with drug therapy Start: 10-23-2024 End: 02-26-2025 take 2 tablets by mouth once daily Levothyroxine 25 mcg tablet Discontinued 50 MCG PO Daily October 23, 2024 3:52pm February 26, 2025 4:08pm Start: 02-12-2020 End: 10-23-2024 take 1 tablet by mouth once daily Levothyroxine 25 mcg Tablet Discontinued 25 MCG PO Daily February 12, 2020 12:00am October 23, 2024 4:04pm Start: 02-12-2020 End: 02-12-2020 Levothyroxine 75 mcg Tablet Discontinued February 12, 2020 12:00am February 12, 2020 9:57am Start: 02-12-2020 End: 02-12-2020 Levothyroxine 75 mcg [...] day Active lidocaine 0.04 mg/mg topical gel (4 sources) Antiarrhythmic, Amide Local Anesthetic Start: 02-12-2020 Lidocaine 4 % Gel Active 1 APPLIC TOPICAL As Directed as needed for Pain February 12, 2020 12:00am Complies with drug therapy Start: 02-12-2020 Lidocaine Acti ve 1 APPLIC TOPICAL As Directed February 12, 2020 12:00am lisinopril 10 mg oral tablet (3 sources) Angiotensin Converting Enzyme Inhibitor Start: 10-23-2024 take 1 tablet by mouth once daily Lisinopril 10 mg tablet Active 10 MG PO Daily October 23, 2024 12:00am Complies with drug therapy loratadine 10 mg oral tablet (11 sources) Start: 02-12-2020 End: 10-23-2024 take 1 tablet by mouth once daily Loratadine (Claritin) 10 mg tablet Active 10 MG PO Daily October 23, 2024 12:00am Complies with drug therapy metoprolol tartrate 25 mg oral tablet (12 sources) beta-Adrenergic Jose D Start: 02-26-2025 take 1 tablet by mouth twice daily Metoprolol Tartrate 25 mg tablet Active 25 MG PO Twice daily February 26, 2025 12:00am Complies with drug therapy Start: 10-23-2024 End: 02-26-2025 take 1 tablet by mouth twice daily Metoprolol Succinate 25 mg tablet extended release 24 hr Discontinued 25 MG PO Twice daily October 23, 2024 12:00am February 26, 2025 4:10pm Start: 02-12-2020 End: 10-23-2024 take 1 tablet by mouth twice daily Metoprolol Tartrate 25 mg Tablet Discontinued 25 MG PO Twice daily February 12, 2020 12:00am October 23, 2024 3:59pm take 1 capsule by [facility] once daily Metoprolol Succinate 25 MG 1 capsule Orally Once a day Active montelukast 10 mg oral tablet (8 sources) Leukotriene Receptor Antagonist Start: 02-27-2020 take 1 tablet by mouth once daily at bedtime Montelukast 10 mg Tablet Active 10 MG PO Daily at bedtime February 27, 2020 12:00am Complies with drug therapy pkyltert-sowx-RX-c alcium &mins (THERAGRAN-M) 9 mg iron-400 mcg tablet (1 source) kaguwavu-lkre-IB -c alcium &mins (THERAGRAN-M) 9 mg iron-400 mcg tablet Take 1 tablet by mouth in the morning. Active Ltztqyod-Sjt-Oqfac -Vit K-Lycop (Men's 50 Plus Daily Formula) 400-20-370 mcg Tablet (4 sources) Start: 02-12-2020 take 1 tablet by mouth once daily Hopffjtd-Mnz-Hujft -Vit K-Lycop (Men's 50 Plus Daily Formula) 400-20-370 mcg Tablet Active 1 TAB PO Daily February 12, 2020 12:00am Complies with drug therapy Start: 02-12-2020 take 1 tablet by mouth once da dominique Start: 02-12-2020 take 1 tablet by mouth once da dominique Qezlncsj-Leh-Svwje-Vit K- Lycop (Men's 50 Plus Daily Formula) 400-20-370 mcg Tablet Active 1 TAB PO Daily February 12, 2020 12:00am Multivitamin preparation (3 sources) take 1 tablet by mouth once daily Multivitamin - 1 tablet Orally Once a day Active rOPINIRole 1 mg oral tablet (14 sources) Nonergot Dopamine Agonist Start: 0 End: 5 take 2 tablets by mouth once daily at bedtime as needed Ropinirole 1 mg tablet Active 2 MG PO Daily at bedtime as needed for RLS October 23, 2024 3:50pm Complies with drug therapy Start: 02-12-2020 take 2 mg by mouth [...] Active traMADol hydrochloride 50 mg oral tablet (11 sources) Opioid Agonist Start: 10-24-19 take 1 tablet by mouth every eight hours as needed Tramadol 50 mg tablet Active 50 MG PO Every 8 hours as needed October 23, 2024 12:00am Complies with drug therapy Start: 02-12-2020 End: 02-28-2020 take 1 tablet [...] needed Active take 1 tablet by toma every twenty-four hours traMADol HCl 50 MG 1 tablet as needed Orally Once a day Active triamcinolone acetonide 1 mg/ml topical cream (5 sources) Corticosteroid Start: 10-23-2024 End: 02-26-2025 Triamcinolone Acetonide 0.1 % cream Active 1 APPLIC TOPICAL Daily as needed February 26, 2025 4:11pm Complies with drug therapy triamcinolone (K ENALOG) 0.1 % cream Apply 1 Application topically in the morning and 1 Application before bedtime. Active Vitamin B 12 100 MCG (3 sources) Vitamin B 12 100 MCG as directed Orally Active vitamin b12 1 mg oral tablet (4 sources) Vitamin B12 Start: 02-12-2020 take 1 tablet by mouth once daily Cyanocobalamin (Vitamin B-12) (Vitamin B-12) 1,000 mcg Tablet Active 1000 MCG PO Daily February 12, 2020 12:00am Complies with drug therapy Completed/Discontinued Medications Medication Drug Class(es) Dates Sig (Normalized) Sig (Original) chondroitin sulfates 200 mg / glucosamine hydrochloride 250 mg oral tablet (7 sources) Start: 02-12-2020 End: 10-23-2024 take 1 tablet by mouth once daily Glucosamine-Chondro itin (Osteo Bi-Flex) 250-200 mg Tablet Discontinued 1 TAB PO Daily February 12, 2020 12:00am October 23, 2024 3:57pm Osteo Bi-Flex On e Per Day - as directed Orally Active cinnamon bark 500 mg oral capsule (4 sources) Start: 02-12-2020 End: 10-23-2024 take 1 capsule by mouth once daily Cinnamon Bark (Cinnamon) 500 mg Capsule Discontinued 1000 MG PO Daily February 12, 2020 12:00am October 23, 2024 3:56pm methylPREDNISolone 4 mg oral tablet (4 sources) Corticosteroid Start: 10-23-2024 End: 02-26-2025 take 1 tablet by mouth once daily Methylprednisolone 4 mg tablet Discontinued 4 MG PO Daily October 23, 2024 12:00am February 26, 2025 4:13pm take 1 tablet by toma th in the morning, then take 1 tablet by mouth at bedtime methylPREDNISolone (MEDROL, PACO,) 4 mg t ablet Take 1 tablet (4 mg total) by mouth in the morning and 1 tablet (4 mg total) before bedtime. follow package directions. Active pantoprazole 40 mg delayed release oral tablet (4 sources) Proton Pump Inhibitor Start: 10-23-2024 End: 02-26-2025 Pantoprazole 40 mg tablet,delayed release (DR/EC) Discontinued MG PO October 23, 2024 12:00am February 26, 2025 4:11pm take 1 tablet by mouth in the mo rning pantoprazole (PROTONIX) 40 mg EC tablet Take 1 tablet (40 mg total) by mouth in the morning. Active pioglitazone 45 mg oral tablet (7 sources) Peroxisome Proliferator Receptor alpha Agonist, Peroxisome Proliferator Receptor gamma Agonist, Thiazolidinedione Start: 02-12-2020 End: 10-23-2024 take 1 tablet by mouth once daily Pioglitazone 45 mg Tablet Discontinued 45 MG PO Daily February 12, 2020 12:00am October 23, 2024 4:01pm pravastatin sodium 40 mg oral tablet (7 sources) HMG-CoA Reductase Inhibitor Start: 02-12-2020 End: 10-23-2024 take 1 tablet by mouth every other day Pravastatin 40 mg Tablet Discontinued 40 MG PO every other day February 12, 2020 12:00am October 23, 2024 4:00pm take 1 tablet by [facility] every twenty-four hours Pravastatin Sodium 40 MG 1 tablet Orally Once a day Active rivaroxaban 10 mg oral tablet (4 sources) Factor Xa Inhibitor Start: 02-28-2020 End: 10-23-2024 take 1 tablet by mouth once daily Rivaroxaban (Xarelto) 10 mg Tablet Discontinued 10 MG PO Daily February 28, 2020 12:00am October 23, 2024 4:00pm [place]-3 Fatty Acids ([place] Oil-1000) 1,000-200 mg Capsule (4 sources) Start: 02-12-2020 End: 10-23-2024 take 1 capsule by mouth once daily [place]-3 Fatty Acids ([place] [employer]-1000) 1,000-200 mg Capsule Discontinued 1 CAP PO Daily February 12, 2020 12:00am October 23, 2024 4:00pm Start: 02-12-2020 take 1 capsule by mo [facility] once daily [place] [employer]-3 Fatty Acids ([place] [employer]-1000) 1,000-200 mg Capsule Active 1 CAP PO Daily February 12, 2020 12:00am ubidecarenone 100 mg oral capsule (4 sources) Start: 02-12-2020 End: 10-23-2024 Coenzyme Q10 (Co Q-10) 100 m g Capsule Discontinued 100 MG PO Daily February 12, 2020 12:00am October 23, 2024 3:56pm Problems Active Problems Problem Classification Problem Date Documented Date Episodic/Chronic Cardiac dysrhythmias (6 sources) Paroxysmal atrial fibrillation; Translations: [PAROXYSMAL ATRIAL FIBRILLATION] Onset: 2 Chronic Chronic kidney disease (5 sources) Chronic kidney disease stage 3; Translations: [Stage 3 chronic kidney disease] 10-23-2024 Chronic Chronic kidney disease (3 sources) Chronic kidney disease; Translations: [Chronic kidney disease, stage 3b] Onset: 4 Congestive heart failure; nonhypertensive (3 sources) Chronic diastolic (congestive) heart failure; Translations: [CHRONIC DIASTOLIC HEART FAILURE] Onset: 2 Chronic Diabetes mellitus with complications (6 sources) 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 mellitus; Translations: [Type 2 diabetes mellitus with diabetic chronic kidney disease] Onset: 5 10-23-2024 Chronic Diabetes mellitus without complication (1 source) Type 2 diabetes mellitus without complications; Translations: [Type 2 diabetes mellitus without complications] Onset: 5 Chronic Disorders of lipid metabolism (9 sources) Hyperchylomicronemia; 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] Onset: 2 10-23-2024 Chronic Essential hypertension (2 sources) Essential (primary) hypertension; Translations: [Essential (primary) hypertension] Onset: 3 Chronic Gangrene (2 sources) Critical lower limb ischemia ; Translations: [Atherosclerosis of [place] arteries of extremities with gangrene, right leg] Onset: 5 10-10-2024 Chronic Gangrene (3 sources) Gangrene of foot; Translations: [Gangrene, not elsewhere classified] Episodic Gout and other crystal arthropathies (7 sources) Gouty arthritis of right ankle; Translations: [Idiopathic gout, right ankle and foot] Onset: 1 Resolved: 1 Chronic Comment on above: Problem List clean-u p per request of Phys. EHR Cmte Heart valve disorders (2 sources) Nonrheumatic aortic (valve) stenosis; Translations: [Nonrheumatic aortic (valve) stenosis] Onset: 2 Chronic Hypertension with complications and secondary hypertension (6 sources) Chronic kidney disease due to hypertension; Translations: [Hypertensive chronic kidney disease with stage 1 through stage 4 chronic kidney disease, or unspecified chronic kidney disease] Onset: 5 10-23-2024 Chronic Osteoarthritis (4 sources) Arthritis of right knee; Translations: [Unilateral primary osteoarthritis, right knee] Onset: 1 Resolved: 1 Chronic Other circulatory disease (3 sources) Stenosis of right iliac artery; Translations: [Stricture of artery] 10-10-2024 Chronic Other circulatory disease (2 sources) Critical lower limb ischemia 10-10-2024 Episodic Other connective tissue disease (7 sources) History of total knee arthroplasty; Translations: [Presence of right artificial knee joint] 02-28-2020 Chronic Comment on above: Problem List clean-u p per request of [employer] TIERNEY Cmte Other connective tissue disease (1 source) Presence of right artificial knee joint; Translations: [Status post total right knee replacement Z96.651] Onset: 1 Resolved: 1 Chronic Other connective tissue disease (3 sources) Other symptoms and signs involving the musculoskeletal system; Translations: [Other symptoms and signs involving the musculoskeletal system] Onset: 5 Episodic Other diseases of kidney and ureters (4 sources) Secondary hyperparathyroidism; Translations: [Secondary hyperparathyroidism of renal origin] 10-23-2024 Chronic Other diseases of kidney and ureters (2 sources) Secondary hyperparathyroidism of renal origin; Translations: [Secondary hyperparathyroidism (of renal origin)] Onset: 5 10-23-2024 Chronic Other ear and sense organ disorders (1 source) Impacted cerumen, bilateral; Translations: [Impacted cerumen, bilateral] Onset: 5 Episodic Other hereditary and degenerative nervous system conditions (3 sources) Restless legs; Translations: [Restless legs syndrome] Chronic Other hereditary and degenerative nervous system conditions (1 source) Restless legs syndrome; Translations: [Restless leg syndrome G25.81] Onset: 1 Resolved: 1 Chronic Other nervous system disorders (3 sources) Neuropathy; Translations: [Polyneuropathy, unspecified] Chronic Other nervous system disorders (3 sources) Chronic pain; Translations: [Other chronic pain] Chronic Other nervous system disorders (3 sources) Other abnormalities of gait and mobility; Translations: [Other abnormalities of gait and mobility] Onset: 5 Episodic Other non-traumatic joint disorders (1 source) Rotator cuff arthropathy of right shoulder; Translations: [Other specific arthropathies, not elsewhere classified, right shoulder] Chronic Other non-traumatic joint disorders (1 source) Other specific arthropathies, not elsewhere classified, right shoulder Onset: 2 Resolved: 2 Chronic Peripheral and visceral atherosclerosis (11 sources) Peripheral vascular disease; Translations: [Peripheral vascular [...] Value Interpretation Reference Range Facility Coding Summaryon 03-17-2025 Coding Summary HTMLBase 64 LlzfigalCAs5zAx+PGh lYWQ+PS0BCPYlJ76ksS IicA4qP1FLJPmYYwyoZ DROXUkRAqFkufTrUV7p aXNjZXJu IC8+GE1pXDTcAexnjIH cf1Q2vDQ7I47fec6pNT cguDG7UTYhUbHrlepzl 9cpvQl0ZOdeKakqKxAw SXDxhZ35UZA8eR14Ns4 6bSZxgFFbf5tenTj9Su XnNSStSMK1gCvyERmdp 1SkZAOhD41szIRte4E6 IGNvbGxhcHNlOyBlbXB 6tQ2aLJfieeijc5vbaf deAlp2sb48zGHux6G1j CT6K1EqqoP7CCLnzIZm ItmrlAJOmK4eiyzmy1z zmvjuEhKiXVMwEHx5KZ f9NOSdwEpiRiPqDH69F NA7OVJdorXmR0McSHZf hZdnBnW0h8B6Ft6XY0V BObejV4UAIRVIMYvnaM Q+KG71pz33M9ClYukbI ew8HZVmROA6sRS0xZ0r LZRxDAqnc4N8lYA7C5T weeCwtd4cc3heVHDjUE ucA90mvDKsm4U8VMNqv AL0OBYemNeqFeMmuT63 Oyc+IHLukCcur9OhHqq jd8cmv9mcsTg1UgyaPO ZlaySnnTssAHQ1f9UiZ w4hPERkeMO8sQN5zH0w AsNoQsH3DBhdW357VuC jzLNcUpilW59wM4KldJ A+UDVqHql0FTTgeEznB L2rO8XhVJSjetgkgRPf wPtwIY1sUILltcgzBHO mhA1zNVDdN7z9ToZfFl A4SUspD2FvHENsftvqU w97lX4yKkSpWdG9CZof Q4KytmY2HZOskYTrKIi sCYQ5I13lw5M1LHQxZN TcZNF7fMP0nJ9ykZdri jogbGVmdDsgdmVydGlj MHzyIFuoD721VAWrvTt nPkNvZGluZyBEYXRlOi AgMDkvMjkvMjAyNTwvd GQ+HGUaMSS2yXeiUYFb nLPyKRdxPb4ukNgzyTj mYM3vRYOsiqiqHQEmmO 0wUXAuzEDfmGyuQB4fY YAznfhyn708QyXsEPY5 DBOwbCIdZ9JvsU1eXvQ nAETlKEAaI9AptOLcUG voC438SFatIcO1SBGtz lNsP9KjFZUqpYuyBrL7 y3B7Rd3Ym3SuqsrfL0O kfBKrLqMtBcyaASi0A5 RkPjwvdHI+VK23UJCwG P88CZt5LKV7xVhrEQoj CPUgY2ZsyI4eUaZuFRN kZGRkOyc+PHRhYmxlIH dpZHRoPScxMDAlJyBzd ZwcIW4cUr9rKOQiBIVw oRxdtUZlYhKum7evQTE uBXuzEW2dmGyoY0BkdF K9YQZqt2l1Dq81J82bX 3JvdXA+XJYxuGD1xSO1 gD4tRrFmPvB4XPkdH19 3GqGwxUJmCmzcd1pio3 aarEa0PnK4FDScyfYyl DejTRW8n5JcVw13L72c IHdpZHRoPSIxNSUiIHZ heLvsue5awZ7aHj4+PG YioIZ0xBA9lN2yXeYtF rP6YEjaB775QmOzrNPk Ofclb8vcf6nbjYd9KvE xDMPkfiWaoHmnOTY8o9 GlKh35I1UbmDvqp8AcP my9fz25wPHda8Z0lUX8 K8MvLDGmdwqnvEZvzOn hWB6yQWLpjgnfFUWtqW 4nRXTqL7t7RtIcYzY3S ZzvS1NemwL9KWWqjEUd ZBWztRURpG4uzlnzk3a ckhmfPbJkFPMmCNt6PW k1TYMmeBpaCmLwPPX4F zG5QRH9wJUhwU0meXav qpljbC3qLyx+XEL0hJA nsRSBAL5hCbhmqIF+PH JbCEI7wKfqTNnoGIXip F3wYULlI4h2VzZjKjQ3 CYjzC0SrpmP1FYQguAE sSRNdnKZQcD6pgwcez5 wphvfyJmNxRXMvPNl0Z Ar8EFVwuLobZtIaXFQ3 UmD6CTL3uODoxX2uoAe corumbB6bUez+QmlydG xbZWK2QGs1K3UhXev4A CEjoZmqHA4uyEGsNBzy Wg0ahRljyNycXZ3eFIL popbmh910HnVnh4pwSW UnwJGsTEqjLTH9Y22lc 2F5GXFbHDUlPOA3eSL8 hI1ofSvhjkyssEZeeTr gdmVydGljYWwtYWxpZ2 60ICCgiHdaDsYjHHy8J 6QxVvc3NOLyoIwoIH4s hIQwSDaqBm8fqDuqtKy hWP8jQGHgdappa681Av Kzq0dpEJEfhJIjQVxhE OE2W07qz3C1KFWmUUFg ANB1oJT1oS1hbQgeogi gbGVmdDsgdmVydGljYW jmFCieK525GHGnnWffT vDodNy1Y0UkEcm8UHVs fRrzCO6foKNnFMihSh5 rwQdsuHtpFX3tCJCbyy hio865ZgHwz8dvCQFni PTqPKynDSL5D97oa5P2 LUPeHFDqNAQ1qBR0hM9 hbGlnbjogbGVmdDsgdm FdfUkiNBxcQMlbF121F HRvcDsnPlBhdGllbnQg LOwuWBj3M8CnAhqcxTK +WF13CREeDQ41iOHlsS Gpi3ruzWm3OzRoNZPmV PE9gYziFEtob0KhIPOs O93cqVRhz4U3NJUmsNd ijMBvJlVtdGI8lD9pOW wrdhhff8qcyxeoAzwqt 1avvk15kA83V35iKOms ZHRoPSIzMCUiIHZhbGl cwb6reG7cMd3+PGNvbC J9zBO4hC7gAZSdHqQ1J MogE752JiCueQUiKoyw q2enf9otwQj0EjN0SIM hjtSvaGmyJKM2s2QkZv 92G67hGLxnQWBlAPCqD VVmLOYgmGfghl9fgC8e Ii8+CGWazNS3wXC5mB7 vScNySeJ0AKboT736Nx RljEWbYnopD03gN7Jlo XA+DDNlXlz1UKIjuCde II1gdHWxRYofZr7oJCB 3XcKdOcRjGXglX4VvUW VirugcimwaqPX9HHBfZ ZFdfP72By7gwWmuFKHm qPSByD3zyvxis5iybdy mMcEiTJSzHSo1URt6YA ErpDkzHrQzSON4EeB1Z ES8oAFqxX0ncKhlgrzj tC2tB8WmHUMriwcfAk4 4tH8oVjWzAeN9TTiuDh c+F0ZACKQZSIGAPIawZ SUXEUCDVT40RC10aCJi i8E9iDY2E8TrJTOwqyc fydoxrID3YPFiZNZpeG 73xSVaIAqfYa7kp6B1f 272WZLfQWZpxM30Ia0a dOnaEIRruNYJlT4nhhm ts9sywfclAePlZNAkWN b5FAm9KGTeaJoiSmHxF HV6XxN3SHK8hMSnxU3w wLrsexwdgH5aBve+MDE lKPKxQMu3MfnjoCO+PH HgPQZ0tGwbJPxvRDVjk E8eWOMfP0j8QbAsHjZ0 XAmsW9AiXHUrabzuFw0 9qM2aIrNmAeG3HWgqV9 IkmyK5JFYbeORkJCbhF QZ5X99zx6M2LLJzLNOx ZQZ5gZR0gG4qwKmoegl gbGVmdDsgdmVydGljYW yvWLaiU016RBGxySljQ eveZUmtRRVgQK62SF10 hSXia7R3iZQ7P1ZjLBO wbojnjniveUJ3WTBxQG ThtJ28xARqHHeqMg5tb 5T8b201NKKaGLKolD65 Cq0wvTeyFCKrpEDIzE5 qbkutn7zrkkgxDvXxFO LvTXi6GYi0MZDzqYkhB vEeCMD9UrR3NNO2rNMu uN3nhQoneettuN5sDkl +TUFMRTwvdGQ+PHRkIH L3sYifJGccNTRrkU5wH UAqW2m7AeAjQpF0XYan E8YpHSQrpmljXc75cR2 rEfGiWjN4QKxdX1Zknq R4LYSsiAUaTKdeGTD5R 60kp8H1ZOOoTVKsJPL6 iNG5sW6naAsegtuuuHD mdDsgdmVydGljYWwtYW ybL872SBFypJljRlXlX 3VycmluZyBPdXRwYXRp TJ25OS43HN72W3OeVfo vdGFibGU+PHRhYmxlIH dpZHRoPScxMDAlJyBzd KhrNI7nXh3dYLFcCVIv qDwlcNXuXiJkn4ddRTP vYTwpQD4gfKjpG1XhzM T1SLVma7r7Gj94N30eI 3JvdXA+EWPcvBP6pPN7 nT0cSwVdGlF1RSdxD69 4YtEbyEUlYaovq1krt1 dxiAw7EdGkCWDwhwYgx JfcYOA8k1XwZq01G92r IHdpZHRoPSIyMCUiIHZ pmLwdrv2qiP5yCl2+PG NbpWL6qKM4hY1gBxIvH oZ0KPuaS258PdBefNJo UwzhY38eG5SojGX+PHR wJlq5UBFhhOmxMU8tnS LjAAzaBb2iVHU5NkRsX bUgDBnvT2IoEKBhalru ybcuySD4LPGhPZMkbY0 3Lj0fuMrnVr3nUNCyPF U1NWEzvOGxE0MxzQ1nX zIvLBApSBXcI2UirSRc TBogD437GMedQeV6SJH xwrGxW7WjVSYxeNqqQw X3w8X9Ji6SnFymeJIuE O8eJoVvEMo2K5XeYsc3 TYRepNurIK4itTXhHHp rDi8uwNbmrRljRM9rGY Mqmsbvf244VuWzg8rhE LBfcMOqWJjwAAT1P28n f9E3OUStJJNnNOJ9oJC 1hI3fzCwvqylocTLqnH sgdmVydGljYWwtYWxpZ 226OJBthAaeNwPBWqz1 D5LtYzb3EVCtuVnjYR4 xdNNyVKqsCj8uaQyueW vxCH5pVGQqqyaqk694K rNwd4zlZYZnyRXbABdm XTO2V54px3H6ZSKiUQD xIRI0vEN7vJ1xgYwqwp ogbGVmdDsgdmVydGljY WssXHyaF362TPBxdBgp Ti6MCoq5N4RfSva8RBV dxQudKC9naNGdSOcvTr 3uuPprdClkYV0jTJUxl mfgo081CwEif3voIZNj xPJcWDkoCBZ6V53lf2C 5EMXbSNXdCBZ4hTK8cV 1hbGlnbjogbGVmdDsgd jHzcBheRJbyHXlqE876 IHRvcDsnPlBheWVyOjw vdGQ+QZ17yr48X2RoKx oeKwd1UWPbJHF4hFB6w M9oJMTtZBnoa2H3xZK8 J2J (more content not included)... Normal [facility] Albumin [Mass/volume] in Ser um or Plasma by Bromocresol green (BCG) dye binding methoOrdered By: Shelbie Velez on 02-24-2025 Albumin BCG dye [Mass/Vol] 3.6 g/dL 3.5-5.7 [facility] Appearance of UrineOrdered B y: Shelbie Velez on 02-24-2025 Appearance (U) Clear Normal Clear [facility] Comment on above: Order Comment: Name Collection Type:: Clean-Voided Midstream Performed By: #### A DDONUAPLUS, PROCRERAT #### [facility] [address] Bacteria [Presence] in Urine by AutomatedOrdered By: Shelbie Velez on 02-24-2025 Bacteria Auto Ql (U) None seen [HPF] None Seen [facility] Bilirubin Test strip Ql (U)O rdered By: Shelbie Velez on 02-24-2025 Bilirubin Ql (U) Negative Negative [facility] Calcium [Mass/volume] in Ser um or PlasmaOrdered By: Shelbie Velez on 02-24-2025 Calcium [Mass/Vol] 8.6 mg/dL Normal 8.6-10.3 [facility] Comment on above: Performed By: #### F ER, FE and TIBC, URIC, RENAL, [id number], PTH, CBCNO, MG #### [facility] [address] Carbon dioxide, total [Moles /volume] in Serum or PlasmaOrdered By: Shelbie Velez on 02-24-2025 CO2 [Moles/Vol] 30.2 mmol/L Normal 21.0-31.0 [facility] Comment on above: Performed By: #### F ER, FE and TIBC, URIC, RENAL, [id number], PTH, CBCNO, MG #### [facility] [address] [place] [address] [place] Chloride [Moles/volume] in S caty or PlasmaOrdered By: Shelbie eVlez on 02-24-2025 Chloride [Moles/Vol] 105 mmol/L Normal 98-107 [facility] Comment on above: Performed By: #### F ER, FE and TIBC, URIC, RENAL, [id number], PTH, CBCNO, MG #### [facility] [address] Color of Urine by AutoOrdere d By: Shelbie Velez on 02-24-2025 Color (U) Light-yellow Normal Yellow [facility] Comment on above: Order Comment: Name Collection Type:: Clean-Voided Midstream Performed By: #### A DDONUAPLUS, PROCRERAT #### [facility] [address] [place] [address] [place] Creatinine [Mass/volume] in Serum or PlasmaOrdered By: Shelbie Velez on 02-24-2025 Creatinine [Mass/Vol] 2.38 mg/dL High 0.70-1.30 [facility] Comment on above: Performed By: #### F ER, FE and TIBC, URIC, RENAL, [id number], PTH, CBCNO, MG #### [facility] [address] [place] [id number] [place] Creatinine [Mass/volume] in UrineOrdered By: Shelbie Velez on 02-24-2025 Creatinine (U) [Mass/Vol] 50.00 mg/dL [facility] Comment on above: No reference range e stablished Dipstick and Microscopicon 0 02-24-2025 Bacteria,Urine None Seen Normal None Seen [facility] Comment on above: Order Comment: Name Collection Type:: Clean-Voided Midstream Performed By: #### A DDONUAPLUS, PROCRERAT #### [facility] [address] [place] [address] [place] Bilirubin,Urine Negative Normal Negative [facility] Comment on above: Order Comment: Name Collection Type:: Clean-Voided Midstream Performed By: #### A DDONUAPLUS, PROCRERAT #### [facility] [address] Glucose Ql (U) 1000 mg/dL Normal Normal [facility] Comment on above: Order Comment: Name Collection Type:: Clean-Voided Midstream Performed By: #### A DDONUAPLUS, PROCRERAT #### [place] [address] [place] Hyaline Casts,Urine None Normal 0-8 [facility] Comment on above: Order Comment: Name Collection Type:: Clean-Voided Midstream Result Comment: PERF ORMED BY: [place] [address] PATHOLOGIST DOG HANDLER ARI LUCIO M.D. Performed By: #### A DDONUAPLUS, PROCRERAT #### [facility] [address] [place] [address] [place] Nitrite,Urine Negative Normal Negative [facility] Comment on above: Order Comment: Name Collection Type:: Clean-Voided Midstream Performed By: #### A DDONUAPLUS, PROCRERAT #### [facility] [address] [place] [address] [place] Occult Blood,Urine 1+ Normal Negative [facility] Comment on above: Order Comment: Name Collection Type:: Clean-Voided Midstream Performed By: #### A DDONUAPLUS, PROCRERAT #### [place] [address] [place] RBC,Urine 3-4 Normal 0-4 [facility] Comment on above: Order Comment: Name Collection Type:: Clean-Voided Midstream Performed By: #### A DDONUAPLUS, PROCRERAT #### [address] Specificy [place],Urine 1.014 Normal 1.001-1.030 [facility] Comment on above: Order Comment: Name Collection Type:: Clean-Voided Midstream Performed By: #### A DDONUAPLUS, PROCRERAT #### [address] Squamous Epithelial Cell,Urine 1-2 Normal 0-2 [facility] Comment on above: Order Comment: Name Collection Type:: Clean-Voided Midstream Performed By: #### A DDONUAPLUS, PROCRERAT #### [address] Urobilinogen,Urine Normal Normal Normal [facility] Comment on above: Order Comment: Name Collection Type:: Clean-Voided Midstream Performed By: #### A DDONUAPLUS, PROCRERAT #### [place] [address] [place] WBC,Urine 1-2 Normal 0-4 [facility] Comment on above: Order Comment: Name Collection Type:: Clean-Voided Midstream Performed By: #### A DDONUAPLUS, PROCRERAT #### [address] Epithelial cells.squamous [# /area] in Urine sediment by Automated countOrdered By: Shelbie Velez on 02-24-2025 Epithelial cells.squamous Auto (Urine sed) [#/Area] 1-2 [HPF] 0-2 [facility] Erythrocyte distribution wid th [Ratio] by Automated countOrdered By: Shelbie Velez on 02-24-2025 Erythrocyte distribution width (RBC) [Ratio] 18.2 % High 12.0-14.8 [facility] Comment on above: Performed By: #### F ER, FE and TIBC, URIC, RENAL, [id number], PTH, CBCNO, MG #### [facility] [address] Erythrocytes [#/area] in Uri ne sediment by Automated countOrdered By: Shelbie Velez on 02-24-2025 RBC Auto (Urine sed) [#/Area] 3-4 [HPF] 0-4 [facility] Erythrocytes [#/volume] in B lood by Automated countOrdered By: Shelbie Velez on 02-24-2025 RBC (Bld) [#/Vol] 3.87 10*6/uL Low 3.90-5.60 [facility] Comment on above: Performed By: #### F ER, FE and TIBC, URIC, RENAL, [id number], PTH, CBCNO, MG #### [facility] [address] Ferritin [Mass/volume] in Se rum or PlasmaOrdered By: Shelbie Velez on 02-24-2025 Ferritin [Mass/Vol] 184.3 ng/mL Normal 23.9-336.2 [facility] Comment on above: Performed By: #### F ER, FE and TIBC, URIC, RENAL, [id number], PTH, CBCNO, MG #### [facility] [address] [place] [id number] [facility] Glomerular filtration rate [ Volume Rate/Area] in Serum, Plasma or Blood by CreatinineOrdered By: Shelbie Velez on 02-24-2025 Glomerular filtration rate [Volume Rate/Area] in Serum, Plasma or Blood by Creatinine 26.381 mL/Min [facility] Glucose [Mass/volume] in Ser um or PlasmaOrdered By: Shelbie Velez on 02-24-2025 Glucose [Mass/Vol] 130 mg/dL High 70-100 [facility] Comment on above: ADA recommended refe rence rangeRandom Glucose Reference Range is dependent on time and content of last meal. Glucose of more than 200 mg/dL in a nonstressed, ambulatory subject supports the diagnosis of Diabetes Mellitus. Result Comment: [facility] Glucose Reference Range is dependent on time and content of last meal. Glucose of more than 200 mg/dL in a nonstressed, ambulatory subject supports the diagnosis of Diabetes Mellitus. ADA recommended reference range Performed By: #### F ER, FE and TIBC, URIC, RENAL, [id number], PTH, CBCNO, MG #### [facility] [address] Glucose [Mass/volume] in Uri ne by Test stripOrdered By: Shelbie Velez on 02-24-2025 Glucose Test strip (U) [Mass/Vol] 1000 mg/dL High Normal [facility] Hematocrit [Volume Fraction] of Blood by Automated countOrdered By: Shelbie Velez on 02-24-2025 Hematocrit (Bld) [Volume fraction] 37.1 % Low 38.8-50.0 [facility] Comment on above: Performed By: #### F ER, FE and TIBC, URIC, RENAL, [id number], PTH, CBCNO, MG #### [address] Hemoglobin Test strip Ql (U) Ordered By: Shelbie Velez on 02-24-2025 Hemoglobin Ql (U) 1+ High Negative [facility] Hemoglobin [Mass/volume] in BloodOrdered By: Shelbie Velez on 02-24-2025 Hemoglobin (Bld) [Mass/Vol] 12.2 g/dL Low 13.0-17.0 [facility] Comment on above: Performed By: #### F ER, FE and TIBC, URIC, RENAL, [id number], PTH, CBCNO, MG #### [address] Hemogram CBC Without Diffon 02-24-2025 Mean Corpuscular HGB Conc 32.9 g/dL Normal 32.5-35.6 [facility] Comment on above: Performed By: #### F ER, FE and TIBC, URIC, RENAL, [id number], PTH, CBCNO, MG #### [address] White Blood Count 7.8 [CFU]/mL Normal 4.1-10.5 [facility] Comment on above: Performed By: #### F ER, FE and TIBC, URIC, RENAL, [id number], PTH, CBCNO, MG #### [facility] [address] Hyaline casts [#/area] in Ur ine sediment by Automated countOrdered By: Shelbie Velez on 02-24-2025 Hyaline casts Auto (Urine sed) [#/Area] None [LPF] 0-8 [facility] Iron [Mass/volume] in Serum or PlasmaOrdered By: Shelbie Velez on 02-24-2025 Iron [Mass/Vol] 68 ug/dL Normal 50-212 [facility] Comment on above: Performed By: #### F ER, FE and TIBC, URIC, RENAL, [id number], PTH, CBCNO, MG #### [facility] [address] Iron and TIBC Profileon % Iron Saturation 23.7 % Normal 20-50 [facility] Comment on above: Performed By: #### F ER, FE and TIBC, URIC, RENAL, [id number], PTH, CBCNO, MG #### [address] Total Iron Binding Capacity 287 ug/dL Normal 255-450 [facility] Comment on above: Performed By: #### F ER, FE and TIBC, URIC, RENAL, [id number], PTH, CBCNO, MG #### [facility] [address] [place] [id number] [place] Ketones [Presence] in Urine by Test stripOrdered By: Shelbie Velez on 02-24-2025 Ketones Ql (U) Negative Normal Negative [facility] Comment on above: Order Comment: Name Collection Type:: Clean-Voided Midstream Performed By: #### A DDONUAPLUS, PROCRERAT #### [address] Leukocyte esterase [Presence ] in Urine by Test stripOrdered By: Shelbie Velez on 02-24-2025 Leukocyte esterase Test strip Ql (U) Negative Normal Negative [facility] Comment on above: Order Comment: Name Collection Type:: Clean-Voided Midstream Performed By: #### A DDONUAPLUS, PROCRERAT #### [facility] [address] Leukocytes [#/area] in Urine sediment by Automated countOrdered By: Shelbie Velez on 02-24-2025 WBC Auto (Urine sed) [#/Area] 1-2 [HPF] 0-4 [facility] Leukocytes [#/volume] correc marielena for nucleated erythrocytes in Blood by Automated counOrdered By: Shelbie Velez on 02-24-2025 WBC corrected for nucl RBC Auto (Bld) [#/Vol] 7.8 10*3/uL 4.1-10.5 [facility] MCH [Entitic mass] by Automa marielena countOrdered By: Shelbie Velez on 02-24-2025 MCH (RBC) [Entitic mass] 31.6 pg Normal 27.5-35.2 [facility] Comment on above: Performed By: #### F ER, FE and TIBC, URIC, RENAL, [id number], PTH, CBCNO, MG #### [facility] [address] [place] [address] MCHC Auto (RBC) [Mass/Vol]Or dered By: Shelbie Velez on 02-24-2025 MCHC (RBC) [Mass/Vol] 32.9 g/dL 32.5-35.6 [facility] MCV [Entitic volume] by Auto mated countOrdered By: Shelbie Velez on 02-24-2025 MCV (RBC) [Entitic vol] 95.9 fL Normal 83.5-101 F [facility] Comment on above: Performed By: #### F ER, FE and TIBC, URIC, RENAL, [id number], PTH, CBCNO, MG #### [facility] [address] Magnesium [Mass/volume] in S caty or PlasmaOrdered By: Shelbie Velez on 02-24-2025 Magnesium [Mass/Vol] 2.2 mg/dL Normal 1.9-2.7 [facility] Comment on above: Performed By: #### F ER, FE and TIBC, URIC, RENAL, [id number], PTH, CBCNO, MG #### [facility] [address] Nitrite Test strip Ql (U)Ord ered By: Shelbie Velez on 02-24-2025 Nitrite Ql (U) Negative Negative [facility] No Panel InformationOrdered By: Shelbie Velez on 02-24-2025 Pharmacy Creatinine Clearance (Chem N/A [facility] Parathyrin.intact [Mass/volu me] in Serum or PlasmaOrdered By: Shelbie Velez on 02-24-2025 Parathyrin.intact [Mass/Vol] 184.0 pg/mL High 12-88 [facility] Parathyroid Hormone Intacton 02-24-2025 Parathyroid Hormone Intact 184.0 pg/mL High [facility] Comment on above: Result Comment: PERF ORMED BY: [place] [address] PATHOLOGIST DOG HANDLER ARI LUCIO M.D. Performed By: #### F ER, FE and TIBC, URIC, RENAL, [id number], PTH, CBCNO, MG #### [facility] [address] [place] [address] Phosphate [Mass/volume] in S caty or PlasmaOrdered By: Shelbie Velez on 02-24-2025 Phosphate [Mass/Vol] 4.4 mg/dL Normal 2.5-4.5 [facility] Comment on above: Performed By: #### F ER, FE and TIBC, URIC, RENAL, [id number], PTH, CBCNO, MG #### [facility] [address] Platelet mean volume [Entiti c volume] in Blood by Automated countOrdered By: Shelbie Velez on 02-24-2025 Platelet mean volume (Bld) [Entitic vol] 8.6 fL Normal 6.6-10.1 [facility] Comment on above: Result Comment: PERF ORMED BY: [place] [address] PATHOLOGIST DOG HANDLER ARI LUCIO M.D. Performed By: #### F ER, FE and TIBC, URIC, RENAL, [id number], PTH, CBCNO, MG #### [address] Platelets [#/volume] in Bloo d by Automated countOrdered By: Shelbie Velez on 02-24-2025 Platelets (Bld) [#/Vol] 199 10*3/uL Normal 150-450 [facility] Comment on above: Performed By: #### F ER, FE and TIBC, URIC, RENAL, [id number], PTH, CBCNO, MG #### [address] Potassium [Moles/volume] in Serum or PlasmaOrdered By: Shelbie Velez on 02-24-2025 Potassium [Moles/Vol] 4.9 mmol/L Normal 3.5-5.1 [facility] Comment on above: Performed By: #### F ER, FE and TIBC, URIC, RENAL, [id number], PTH, CBCNO, MG #### [address] Protein Creat Ratio Ur Rando mon 02-24-2025 Creatinine, Urine (Random) 50.00 mg/dL Normal [facility] Comment on above: Result Comment: No r eference range established Performed By: #### A DDONUAPLUS, PROCRERAT #### [address] Urine Protein/Creatinine Ratio Not performed Normal 0-200 [facility] Comment on above: Result Comment: PERF ORMED BY: [place] [address] PATHOLOGIST DOG HANDLER ARI LUCIO M.D. Performed By: #### A DDONUAPLUS, PROCRERAT #### [address] Protein [Mass/volume] in Uri neOrdered By: Shelbie Velez on 02-24-2025 Protein (U) [Mass/Vol] 224 mg/dL High 0-9 [facility] Comment on above: Performed By: #### A DDCARITO PROCRERAT #### [facility] [address] Protein [Mass/volume] in Uri ne by Test stripOrdered By: Shelbie Velez on 02-24-2025 Protein (U) [Mass/Vol] 100 mg/dL Normal Negative [facility] Comment on above: Order Comment: Name Collection Type:: Clean-Voided Midstream Performed By: #### A BERYL PROCRERAT #### [address] Renal Function Panelon 02-24 Albumin [Mass/Vol] 3.6 g/dL Normal 3.5-5.7 [facility] Comment on above: Performed By: #### F ER, FE and TIBC, URIC, RENAL, [id number], PTH, CBCNO, MG #### [address] GFR/1.73 sq M.predicted MDRD (S/P/Bld) [Vol rate/Area] 26.381 mL/min/{1.73_m2} Normal [facility] Comment on above: Performed By: #### F ER, FE and TIBC, URIC, RENAL, [id number], PTH, CBCNO, MG #### [address] Serum or plasma anion gap de terminationOrdered By: Shelbie Velez on 02-24-2025 Anion gap [Moles/Vol] 11.7 mmol/L Normal 6.0-15.0 [facility] Comment on above: Performed By: #### F ER, FE and TIBC, URIC, RENAL, [id number], PTH, CBCNO, MG #### [address] Serum or plasma iron binding capacity measurement (mass/volume)Ordered By: Shelbie Velez on 02-24-2025 Iron binding capacity [Mass/Vol] 287 ug/dL 255-450 [facility] Serum or plasma iron saturat ion measurement (mass fraction)Ordered By: Shelbie Velez on 02-24-2025 Iron saturation [Mass fraction] 23.7 % 20-50 [facility] Sodium [Moles/volume] in Ser um or PlasmaOrdered By: Shelbie Velez on 02-24-2025 Sodium [Moles/Vol] 142 mmol/L Normal 136-145 [facility] Comment on above: Performed By: #### F ER, FE and TIBC, URIC, RENAL, [id number], PTH, CBCNO, MG #### [facility] [address] Specific gravity Test strip (U) [Rel density]Ordered By: Shelbie Velez on 02-24-2025 Specific gravity (U) [Rel density] 1.014 1.001-1.030 [facility] Transferrin [Mass/volume] in Serum or PlasmaOrdered By: Shelbie Velez on 02-24-2025 Transferrin [Mass/Vol] 205 mg/dL Normal 203-362 [facility] Comment on above: Performed By: #### F ER, FE and TIBC, URIC, RENAL, [id number], PTH, CBCNO, MG #### [facility] [address] [place] [address] [place] Urate [Mass/volume] in Serum or PlasmaOrdered By: Shelbie Velez on 02-24-2025 Urate [Mass/Vol] 5.1 mg/dL Normal 4.4-7.6 [facility] Comment on above: Performed By: #### F ER, FE and TIBC, URIC, RENAL, [id number], PTH, CBCNO, MG #### [facility] [address] [place] [address] [place] Urea nitrogen [Mass/volume] in Serum or PlasmaOrdered By: Shelbie Velez on 02-24-2025 Urea nitrogen [Mass/Vol] 64 mg/dL High 7-25 [facility] Comment on above: Performed By: #### F ER, FE and TIBC, URIC, RENAL, [id number], PTH, CBCNO, MG #### [facility] [address] Urine protein/creatinine rat ioOrdered By: Shelbie Velez on 02-24-2025 Protein/Creatinine (U) [Ratio] TNP [facility] Comment on above: Test not performed Urobilinogen Test strip (U) [Mass/Vol]Ordered By: Shelbie Velez on 02-24-2025 Urobilinogen (U) [Mass/Vol] Normal mg/dL Normal [facility] Vitamin D 25 Hydroxy Totalon 02-24-2025 Vitamin D 25 Hydroxy Total 37.5 ng/mL Normal 30-100 [facility] Comment on above: Result Comment: BAO MIN D STATUS 25(OH)VITAMIN D RANGE (ng/mL) Deficient <20 Insufficient 20 to <30 Sufficient 30 to 100 Reference: Pascual Perez, Garth HANSON, et al. Evaluation,treatment, and prevention of vitamin D deficiency; an Endocrine Society clinical practice guideline. JCEM. 2010; 96(7):1911-30. PERFORMED BY: [place] [address] PATHOLOGIST DOG HANDLER ARI LUCIO M.D. Performed By: #### F ER, FE and TIBC, URIC, RENAL, [id number], PTH, CBCNO, MG #### [facility] [address] Vitamin D+Metabolites [Mass/ volume] in Serum or PlasmaOrdered By: Shelbie Velez on 02-24-2025 Vitamin D+Metabolites [Mass/Vol] 37.5 ng/mL 30-100 [facility] Comment on above: VITAMIN D STATUS 25( [place])VITAMIN D RANGE (ng/mL) Deficient <20 Insufficient 20 to <30Sufficient 30 to 100Reference: Pascual Perez, Garth HANSON, et al. Evaluation,treatment, and prevention of vitamin D deficiency; an Endocrine Society clinical practice guideline. JCEM. 2010; 96(7):1911-30. pH of Urine by Test stripOrd ered By: Shelbie Velez on 02-24-2025 pH (U) 6.5 [pH] Normal 5.0-9.0 [facility] Comment on above: Order Comment: Name Collection Type:: Clean-Voided Midstream Performed By: #### A DDONUAPLUS, PROCRERAT #### [facility] [address] [place] [id number] [facility] Outside Recordson 02-07-2025 Outside Records [id number] 90#[id number] Normal [facility] Office/Clinic Noteon 025 Office/Clinic Note Patient: RICHARD BOYKIN Age: 84 years Sex: MALE : 1940 Associated Diagnoses: Impacted cerumen of both ears Author: Marj Sorensen MD A History of Present Illness 84-year-old male presents today for cerumen impaction bilaterally. He is a history of cerumen impaction in the past has noticed diminished hearing bilaterally. He has been putting drops in his ears and attempting to clean them out himself at home. No pain. Review of Systems Ear/Nose/Mouth/Thro at: Decreased hearing: Bilaterally. Respiratory: Negative. Health Status Allergies: Allergic Reactions (Selected) [...] tab(s), Oral, BID, 180 tab(s), 3 Refill(s) Toerich SoloStar Prefilled Pen 300 units/mL subcutaneous solution: See Instructions, 25 units in the AM and PM, 15 pens, 3 Refill(s) allopurinol 300 mg oral [...] pain, 0 Refill(s) Physical Examination Vital Signs 02/06/2025 13:34 EDT Peripheral Pulse Rate 82 bpm Pulse Site Pulse Oximetry Systolic Blood Pressure 136 mmHg HI Diastolic Blood Pressure 78 mmHg BP Site Left arm SpO2 98 % Measurements from flowsheet : Measurements 02/06/2025 13:34 EDT Height 179 cm Height/Length Measured (inches) 70.47 in Weight 106.14 kg Weight Measured (lbs) 233.998 lb Weight Dosing 106.140 kg Body Mass Index 33.13 kg/m2 [place] Body Weight Calculated 74.087 kg BSA Measured 2.3 m2 General: Alert and oriented. HENT: Auditory canals are obstructed with cerumen bilaterally. TMs were not visualized.. Impression and Plan Diagnosis Impacted cerumen of both ears ([id number] H61.23). Plan: Ears were flushed using warm water and Reedsyyn system. Then using a curette and hemostats hard ball wax was removed from each auditory canal. Patient tolerated well. TM was visualized. The left otic alissa canal still had some cerumen on the lateral wall.. Orders Orders Procedure Charge: 20386 Removal Impacted Cerumen, requiring instrumentation (Order): 02/06/2025 14:06 EDT, Qty: 1, Impacted cerumen of both ears. [Electronically Signed on: 02/06/2025 14:06 EDT] __ Marj Sorensen MD [Verified on: 02/06/2025 14:06 EDT] __ Marj Sorensen MD [facility] Physical Therapy Noteon 01-18 Physical Therapy Note [id number] 0C#[id number] [facility] Coding Summaryon 01-23-2025 Coding Summary HTMLBase 64 GjhdjythEBz4wNf+PGh lYWQ+PG5TEDMvB72wlO CuwD8yG2UQCHtVPvloK YTAZPzDVjDrgpVwGH6f aXNjZXJu IC8+IW7xKYGqJopzlND no4Q5dTK8I04pdd0tHY qmuNJ5LVWvBsTdeyuic 1qkdNg7YPyuNpruRxCw DUZuxU61IMZ9qB24Li1 8gNHkvQVcr9jjiGw6Yi GeIIZmZAG9hTaaRRqzb 4QcLCHkA14meZAut7R6 IGNvbGxhcHNlOyBlbXB 3wD8jEPxeyegqz9xumo rbLmy7yj73iIHei2W8i WW4T5ClthJ8SZTmiMUt SmezsFZFpM5rwzjve7j iwizcRwAfDDUzVWn8HC m2QQDouItwVuKvWP24I SQ8GNVcmwPkR6TsBIGd rSesZcZ3p3A4Vc2PV6Q QTjxtA0ROKGSWGJyyjX Q+JK26yd49M8KvJtghF zk9OVMuYUT7rFO7fU9z AUBfXZqeb7W8dMD9Y8S sopZntn3zn4vnNREuKP xnC90ydWSmm0B9DKQhz AA0DPFbbCbrHqEndS73 Oyc+VWCfwLdos0XjGxr qc9puj1wkhAu0XivgNN FvpbNfcUbtGDZ6g6OaN w6gLYNtnNG0gRG3iP6y JdQwRlS9QXqdU932VyL qaICsNkjvJ66oF0TsnX A+RPGkRas5MJYldDwfL B6hP4GrTTYmnkokuEIi pHlwRE4fQODlgjoeACG mdA5pMBTwM5x8BgQeYh E4DBllB8AdJHXtuidtY s44pY2lPjXbBqC5XHhp C5SukoF3CFWwcYEwVNj jSMQ6J64mv7G8XEErVK DxNWF6sZP1dX5srChes jogbGVmdDsgdmVydGlj VVxkWYtjJ631TRIlqTn nPkNvZGluZyBEYXRlOi AgMDgvMDcvMjAyNTwvd GQ+KWBrJCO2iXseIADm sBBaCVrzUw5bgEoibOk bWI8nOUUpllzrBPBysZ 3wUXDgdMJxhMnnIA6wE FYuxqlxl997ExVkMTB3 NGCauIXvM8YsgO7dOeQ mDVOnBWNnX3IajRKxPT dkG402JFiwIyG7TWQxr uEtE5QyEKDihPhkXhY1 n0O0Ej7Ms3SqiqfzN6A viMJyJmVbUzslXRc8V7 RkPjwvdHI+UY79JSVbX V88QJb5POH2qVetCBat ZIYqU0EdcU1sCmKgWKG kZGRkOyc+PHRhYmxlIH dpZHRoPScxMDAlJyBzd SnyBC8lVd4gJLQdMTWc xLqynUUlDyYxj3bkCDJ dQUhxNB7fwFgfH7RilO J2DUJld0y9Uc19H63iH 3JvdXA+AZWnnYQ7dXG3 jV9fIlGmZaR5FEemS56 3AoAizXAgMcjrn8pen5 ihdGo3DgU7SVRtbwImv RyrVRK0y4SdOg04B07j IHdpZHRoPSIxNSUiIHZ xbPdeyt4biG7yId9+PG OrxUM9rVY9fZ7xStMeC zB2SKcsL056HyYwgHSp Xirdl6lsa9uprYh7WbI hDSJodmVszXxtTZW2e8 WfJo18G9MyhLofm4UdU bk0fu68tAXjn2G5pQB4 G9JmFXNsipynuHQisRg xKU5sWAKbaiyuUZPpoH 2tIKOgA2e2JkRgCrM6Z FccH5WyxbA6NKCacYZt JNReqMQJoJ4ubsfff9z rdaphKmCuLDCvEYh4PQ a1JAJsoIutDlZkXXV8Q aP2LFK5vMIowR7thKvr yxczvN5hBja+CGQ2aVG dhSFANV9pTsswdKN+PH DwOLF2kBotNRbxQUQkh S6hHAFtC8s6PeWhQzO0 AIipB8NzcdB1QONowIB cOLKvtGXVcN4jmplti4 fuxtyhEfPtMOBkUVi1D Zk7AOTnyAwzVsYnCAU9 QfJ5TOB6pJSajO4itZa nytmueJ3tDhe+QmlydG tsINW6LSl2O2JoMom8Y UAjaKpvJC1hmUDuJOmh Kf9raYuycXnbII7oQQE iqhybk094ScSpu3kwWE VgqWTdGWwzSKZ3H62ob 4Y9WVEaRBFkRBE9qXW6 qC0nfQqtyvxtcDNnfUg gdmVydGljYWwtYWxpZ2 87UBBywYmdHtDyETf6G 9OrJtw0NAPbvYbmIX7g jVCrDGocDs6ppLpamNh aKP8kAJRzrorrd528Xf Ngo6bsTLDdwYWsDDliX II3E79rz4N0UZRaXPWc DII7yYK4bK7ztPdghvi gbGVmdDsgdmVydGljYW doRBtrR590BQOjnYvxE iSfuFl5M1SmOag3LTIo hZowRC6zeLYhRKzoGb4 kaVyhnMboVF6rPZEueb duo376GcKcp8aoDIKbm RUdABopCHZ3T47mj4W9 JDTfANEmPSQ0tZI6fB4 hbGlnbjogbGVmdDsgdm OmpBpvPWfhUGrjJ977K HRvcDsnPlBhdGllbnQg KRjuZDn1W9OcHqsnvDV +OW39NIFlSR91dJXtaZ Kvk5delAj1KsOnUIFwZ RY3wDihVChbu8SnTQXu X41wvTDhl6J2YDYouJu isLUnMyBhlIV5dA3qNI wvvynos4migaanIpjbl 9nqcs50pH52T39vFDro ZHRoPSIzMCUiIHZhbGl tat5rzO5cTl5+PGNvbC F8xXQ1yL0cHNGoNyM6Q NvoL704ZcZhyIXjPjng x6qgq8dpnHd4RlP5AQH dkiFbuHfqZZP2u1HgRw 68H18zPYwgTQNbXZBuV TRtDBFmmCrxwm6loR1a Ii8+RCYbmEM1tPW2cW5 yMoBbYvC9VWjyA667Cc QacEWuWanwX74qH9Eap XA+VOMrZkl9RQXwjGcu BC9bdOOvBYlgSn3jKBG 9OnEyIgYbHBgcV8OmNS QnlzryhkaemBI3RFHaE DQlgE21Zj9tmBfrVFAm zAAJuB8trklpe1qqnmm aDfMpNLRqHYj2LWb6TG JnhNxmDtPcSOO5XbJ1R UP9eSMolA2jmGzfbaxb hF4pU9ZeRBHsftxaSp5 7hD8cDqBvNzF8TOnlYq c+G1BRSVBAIUVMHGejZ DQZSZNZTV31HR53vUQn e8Y0kPF5V5YlDDNfwsi asywvqRR7JSVoXPOvdX 36qBYbDEboWx4xt7A7k 484TRHtVXUahB99Pn8r kRmlNUXsiDQPeY8cwmy zf9wttdocQbBpVONkHR h5DLd9RHReaTbqEaXoE HF7XxO1EGM6lPDvcJ0o qXuwiudcaZ7sRee+MDE bBLSmWOc3WmbxrRP+PH FmBOE0mTvyPRviFBQzb S7eQCEcE6f5SbIhYfF0 RAtfR7XxTSTzgnevKp7 0aN1iPuOqVtT4FJdwV3 WcztF5OKWgzKUpEWqjD TY2B93ol0P2OHFdBRXb HYE1bKV0hH0pgJmmxlf gbGVmdDsgdmVydGljYW qvYJhpQ610SHXtbShiE kneBCotSNDzFO43ZJ41 kGEcp8J4mBA4Z2UnIIQ xtiiaxkikwFM6MSKyRK JmnF32iEXnDGprCt2wr 2P1y698ITLuZMWxtN72 Tx1cgKbaUYZncLCAkS9 kttlzl1gizrsvNzKqMX ViTCr6HSs3YLUenSkqF qMkJPZ0QkZ5EDC3jIRa sA0zhEzorvagpW5oSco +TUFMRTwvdGQ+PHRkIH F2hLrsWPiqHUDhnC6rC SHiZ6n7ZbNlYtL6AOcz C3XdASYuqbibDy27yY2 iIjFxQxY6MJogZ2Bblp P0VYCqiADzELevHOV6H 53iv6F7EVPaMKUzFJI6 nHQ7zU2ooCalalorpOE mdDsgdmVydGljYWwtYW jdR839AETaaRucZd6BU M21CY48K9IqEftzeQIj bGU+PHRhYmxlIHdpZHR oPScxMDAlJyBzdHlsZT 4vJh4bCSAgZVDgaCwqb AEiLjDye6rvTEWrYFje RJ7idOgyK1RvbTC7LPT wr7t5Vc49L59qN5WfgJ A+JOJxfBE1xJX0uS6eO bYfXmL5PGcgX869EoCz cQTtTjyod3pkt3fbdBm 9IjMwJSIgdmFsaWduPS U0x4ZeIp58K00cRMwdA HRoPSIyMCUiIHZhbGln cg5qjC4hDu8+PGNvbCB 9aWA1rJ6pYlOjLhT2LH jrA141VnMcgGVkChtgF 28qJ9HxmSA+PHRyPjx0 FBQogYnlHV0vuTEsWAa zXj6dCPC3GiEhOfTdAM azF5ZiRLUutmyinvwwh OX1NMZjZRYjdE11Xf0x fUlpZl8bZRCtOII1YCF wtVExJ2BaoQ8eMnWeLL JaGNGaT4DbhMFaKQyjV 322FDjaGfM4HHJyogRj B4SxACCfxKikMeA6v0V 3Sc7CkLwepGYnHQ9yKj CxFTn6S9IpBpz3MNYvs ZeuXX1vmIFlNWhcUj7u pBangDwsAY2cKUQfiti xj121WoVdn9jgRIDycK AtKJxfJWO7F29vb1S7C FGiSHYoRJF0wRZ8vY5h bGlnbjogbGVmdDsgdmV rjRmgQBwhBSgaG291UU GsaUdcOoWBNxh9O5VxY sd8PUOjgSwgFT7yyYSc OPfsUe8kkEbplYmpMW3 wKSWgzstro637BvPpt1 rkLDEscRGjEEwvZYZ1T 93gq6Y6CUFyTJIfMNF9 zLL3iS9phFpbcvoidGX mdDsgdmVydGljYWwtYW vqI900ZPZcvTxnIy6ET no6X7JrWzk0TXEnlLdz SG9txWRnFXmqPk8mkIa zgKuvWZ9pDDQowcfjq8 68RnCbk7jiKMRanUCjO BluTWZ2X54gt9S0PBJw GXSrSYG3xUE8iW0xhEd nbjogbGVmdDsgdmVydG tvGFozSCuiI755ZVWxm DsnPlBheWVyOjwvdGQ+ LG15pn01L2OiWrvvXne 7RAHpIIP3aJY3zB3tKV UfMSggu9Y7wNW5B5Tkx mVqyn3on1oxXWLtTOzh Y29 (more content not included)... [facility] Coding Summaryon 01-16-2025 Coding Summary HTMLBase 64 BqbbesdkGGf7nUq+PGh lYWQ+FD8CJWVwV07ywG BxkX6eO0HIVDcDAqfgV TVUQMyVIvWokpBfAI5d aXNjZXJu IC8+XF0cKCGtLxgylTB wo5L6sTX0B43qjj6xIF aypOM4JHRnLpEfkrokk 8sgnOv9SRgpGijkQkSv DUPkrO79QSY5iU98Zn1 9pGSifREzn7uscLa5Ng GaWPCtEWV0eUbzPOqen 5ByEMAxO26daWYjm9C8 IGNvbGxhcHNlOyBlbXB 2hV5yBBtdxnnbv5wlew xbOzd6hc55iOMwa7G8l FH3O8JmynU1QHEzyZXb QuwrhOBExO6qmsanr9v xvvxbYbZdMVYmOLh9XL c9XQHceMfcQaZeBB82G XB4PHJiysXrF8WpRDUi pKakWxN4b0P7Sl8FJ5L CZztvW8MTXDEETGwocZ Q+WR54py00A7IoDkuoN oz5VGUiOOH2wYI0jX9z GEGrLLknv2W3lHR9M6T djyFdpr5rl5czKLWeIE qiS72wcPCns1M9NXSsi ED3YSHvyAinCvQdmD09 Oyc+QUFyaHmif7NbLxd oo0ocy8addUo7TifjSX BemqLnwHvzDTO3k3CtI a8lWJSvzVM4zLU5mA9d ByUyQbW5YTyjK647YiS qvSVmKnqvJ02jB7VzwF A+GFExDem1VFQkuRweR N4zJ6YlVVEzrvkrxCTr iQcgKM0fIMHsexssMXA ztZ4fACZrE8h4TgAvXa L3QArmR5FgTWZxilovT b32lH1xWiNaRnJ1EXnz T0NefnD0LXXugAWdOYq xYDC0I87dk8N0PUNyER WgMSU6oNV8vI3gsEtwi jogbGVmdDsgdmVydGlj YIrvRElkC944BPZuuHh nPkNvZGluZyBEYXRlOi AgMDcvMzEvMjAyNTwvd GQ+JISxLWA1fJjrGDLp aUUvKBulEu6acUiboFu nIV0eFHKotyhoLBBseA 6bEEFphJBqsMtuPU7nC TKtyomat290ToKrGAO1 HLYdtVUxU4ObyW3jKnZ vQYWjWQYlC1UtaBNbJQ asN495RVkfXkX4TEXdp vTeU4CuBOPueAtrOiB9 m8I9By6Lo4PxcsbyI7C qwNByUcCvMypoSQt4C2 RkPjwvdHI+GH34AGKsO F08DJt2FKH6hOmrZNwz ANZvH8VctG4zWkHfOOL kZGRkOyc+PHRhYmxlIH dpZHRoPScxMDAlJyBzd QslDP2kEg2nZIQfBPQw oGcklTRcPoCta9fnSBR eHKkxGZ3wmLobX5HzqZ F7FJVju1x7Ds02O27iC 3JvdXA+APQodGY1xZV0 yM8oSxRgNzA1LHqkA39 1PmFyjBGvOmyuu4afr9 thcVn2NhZ3SIEapcHoq SadESB8z1UrRl99S43v IHdpZHRoPSIxNSUiIHZ qnVedwa9toA0dAy8+PG VwnVX2gZO1mK3hXnKrG rR7UVlqQ007NwTlrILv Ivdfp2sut2lkoTo1GtQ bQEXubiVyaIzrYVI4r4 HgGf83C0VfvVdbe3UmR qp5uj95nNHhj8Q2oED4 D4ZyVCVmntmuzLKqyXl dMR4nFKQzrcvxJTDhlG 0rHYReK8k3CwDfZcW1C VmoS8VpjaR6UQGdjRKk HRKdeHLBnV0sfuiix8j oqfivZnUbRQGhOVt5WP c8WDFgiZgiWsFyTCF8E tJ7GSL4cKKvxF1iyCep aqxypG3vKuq+QDS1uSU lbENXKX3jDoxaoGM+PH XaKWI5xKzkEYimDOLev N9mMXBcH9g8MoXdZmJ3 FSiqZ9VrlwU1SAWabPV uNASjzFUSvP0iwjbwu6 gipvgfJtRhAWHjAYt8A Nb8KMLxwNyxZlSkHCM3 KnH5SLX0vKGbjA1huNx qiugezV5pHfi+QmlydG lcSMH6HDw2A7FlKai5X VOclWaiGI0xrNDbWVnt Pk7jhAicdAtjON6dHCP qzcbyr867KeZzx1gmKQ TcaYLmBEouEBH5M98qx 8G9FNVeJHCmFJS3dGW8 cC8gqLktyboheUVmyPy gdmVydGljYWwtYWxpZ2 90HUTdeJqzCkPsYMf7H 8VvZuy2THKvlNjoTG8w hSIoLEbkIi8msClwcGx jQI6gUXDexufjr582Th Rpp1dmZJBdmYVwQDihH PG7T79yv1J9LCIwXTIr JWH5eJG4gD0ifMliozv gbGVmdDsgdmVydGljYW usYEtmC184NWAyqAdaI wAfuYg0Y3ZlZsl7TQNm bYkwQK2fhQTqVOduOg7 igWuofLskAH0qPWGxwi udx466KoMyy6vdGDZwv ZEbRRuxDTN3U20jn8U8 VNWdMMGkMFJ9bNF8pX8 hbGlnbjogbGVmdDsgdm ExiAopJJatRZuoB182N HRvcDsnPlBhdGllbnQg UPfcYNo0U3BpKhbrsSP +GB46EYSmET71eLFiaA Cnq3tmpXj5VfTsDPQhX WI8dKyqCJopv9MoVHWr C00fkJUvk3H1SWZnxOt viBGeUiValME3kE9sPN kmpqfdq3rymttrHtwip 0hrue48qG50H73wNNxd ZHRoPSIzMCUiIHZhbGl zlz2deG1nRc3+PGNvbC N7hYO5sT6fGCAaFtC4R QwaI637TiKvrDRpQnqp l8hja8lnjAb7RmM6FWV lotWgbGhdSJV7x2DkRj 64I38aFYyhVZBcINTbF DMaCLCbvZltaz9wwE3d Ii8+AGIglEZ0qNS0dB8 fFzPqHjS3RNmzX483Wq KewLHoMedrB38mA5Obv XA+QCDjWjl7HGJezNrp SA2vhBOkLNxgCy0hFGP 9IbTcXrFbVVxyM5MzGT JnckeiffbuuKJ2EPGhC ZOlmY33Jk1qdRetYKTe eHFToN4mncjok7seuny xPbQhWVHpYVt4ALk6MH OyoRcmGkBrPCE5SaK1X BJ5yXBriZ1yhVjrzvlh pH0jO0HvFEJlmugrIh7 5vG2xFmBmLfO5LAlwXh c+M4CFUZZVXCNOGOatL NHDYGLNAV33EF21bQZe n2J0pAW7Q7IqQULfnvz jpnxorLA7KODfBMLqkA 09eOQaGYdtKy5wb3I5l 821YRGqBHPjmD65Kx7y eTubKDQbmISZsB1krha zs8dvglsnRkTvUBLeCK u3LKg3GTGgbTmoCsVsJ JT8CnU8DKA4oVNlcZ0p ePofvyikfS5iLox+MDE aDCOyXWa1ElvjnRH+PH FcGOI1uRnrCPzhRGInd T8fPJMzS5d4MpYyFmS9 PZpzA0JyQBTigiyuOb4 2fI7wDvUtBxA2ZQomS1 DthyX6FBAzvIZaFSgoA MD0P37nm6Y4VEToGVLm HEO1yZB6rR6kfPmoynq gbGVmdDsgdmVydGljYW gxPUzoS797LAOkiNzeA rwzTDbwGHTaSO21JN17 jEAsj4D3fVT7E0KuQBI hkguctcdevIE8PGVzUP WthG26oXWeJFfdNt5qr 7V0p446CDNiAFHzuT09 Lv4uyKbkYTZxrEIRxI7 nznzbi1uoixjrZxRpKU IsVCq3ARl2WVNleUveX qCmFHB8AlP2KFN8lJTf kU5unPqcujzgeO7hMxa +TUFMRTwvdGQ+PHRkIH S3cHhnQXlgFCGblL2dM EBcA7l7VhWeHcB9ZYrr Z4IsMZMppbyzYb95nW3 nKnXbLtD6OKhtT9Ilno D7FDGstBOjSDwfIWF1G 87nm8F4LYOjNXKnROI5 vEF5dO7zuCwlbogmtGB mdDsgdmVydGljYWwtYW lwF738NCSrrGzyYs4IM C22OY90A8GdDxrdtMTw bGU+PHRhYmxlIHdpZHR oPScxMDAlJyBzdHlsZT 7jGm4kVGIpRYVleWhnf MVrAyCzo3tvCTBrSBep DB2yhMpnF5WwmXT9XPY wl3e9Sh21A52wZ2PwcS A+DRKcwLC2eXY0lP3kW xWxNqE2SErhU481SvTx tIQiTflen3cly0iahMw 9IjMwJSIgdmFsaWduPS B6s6QiMp91M48yGHzaP HRoPSIyMCUiIHZhbGln ld7ytZ5vPo9+PGNvbCB 3fCA8gC9lCuFmUaI0JS qzO125QrOpyYQgPnmiD 52xT1HfpUF+PHRyPjx0 QHGciGwnVP7yoYIgHKy rZm7sLHU7RtLlSiQtUE pzU7MqVXLraiikgbdns QA4RIUmEDBnzS59Cv3t vJhmKa9wMEZpMZY2JGS vgBSqE0FnqQ6jUqOhNS VwZIYpQ6DjyVMvSTljF 387ENnqGlB5JAGizyBt G4EgALMmdMfxRrG4c8M 1Cc8FfOxdtIKbQM8qCu JyWPm7X8FfFnr2EBRrj UpsYD0zfKFnKKnfIt1c iHtevOjlNQ4gCBXbmnc wr551OiTlu2mbVUIbmH NyNZqpLCX3Y22by5J5X VNlCBSeXOU6yZG1jE0v bGlnbjogbGVmdDsgdmV hjNpbOWaoGPtrW481TV DtbFivZpFZXqp4O4BqQ ye0YHRktFlzQR1eiHVd GAppWc6ybLmvqZjyEN5 fJZAgfpemg185DxKqq1 zxIEOcuIQgYAtaSFG9Z 81mx3S9LPMqEECrDZU0 yKB7jN4zqLeicqcllUP mdDsgdmVydGljYWwtYW jsM240KDKxlRmaVr9EA fk3K2IeZsj6OCFnwDen MA2zbNChPTqtRa6dlKh qsNjoXY3fENJjpnzzb9 30MxOye4wlZXDmsAGpI KiqKXN4M75fd8H0DSRr NBWzYBP0xRF0oO6jrGk nbjogbGVmdDsgdmVydG xxQFoxOFecT663MGRqv DsnPlBheWVyOjwvdGQ+ GR76hw48P6UvKlliOcg 1OCFdGIQ2aXZ4uO8bND KqEUpsh8V0pNJ7R9Paq xTpdj1qq0wbIDRxLGlk Y29 (more content not included)... Normal [facility] Office/Clinic Noteon 025 Office/Clinic Note Patient: [...] 106.590 kg Body Mass Index 33.27 kg/m2 [place] Body Weight Calculated 74.087 kg BSA Measured 2.3 m2 General: Alert and oriented, No acute distress. Respiratory: Lungs are clear to auscultation, Respirations are non-labored, Breath sounds are equal. Cardiovascular: Normal rate, Regular rhythm, No murmur, Good pulses equal in all extremities. Impression and Plan Diagnosis Type 2 diabetes mellitus ([id number] E11.9). Plan: Recommend continuing on current dosing of medication and holding the Jardiance. His average is better. Will have follow-up in 2 months.. Orders Orders Evaluation and Management: 26330 Office Visit - established pt, Level 3 (Order): 01/16/2025 10:46 EDT, Qty: 1, Type 2 diabetes mellitus. [Electronically Signed on: 01/16/2025 11:12 EDT] __ Marj Sorensen MD [Verified on: 01/16/2025 11:12 EDT] __ Marj Sorensen MD [facility] Outside Recordson 01-08-2025 Outside Records [id number] [facility] Office/Clinic Noteon 025 Office/Clinic Note Patient: [...] 103.420 kg Body Mass Index 32.28 kg/m2 [place] Body Weight Calculated 74.087 kg BSA Measured 2.27 m2 General: Alert and oriented. Respiratory: Lungs are clear to auscultation, Respirations are non-labored, Breath sounds are equal. Cardiovascular: Normal rate, Regular rhythm, No murmur. Impression and Plan Diagnosis Type 2 diabetes mellitus ([id number] E11.9). Plan: Discussed with patient would like [...] his medication.. Orders Orders Evaluation and Management: [id number] Office Visit - established pt, Level 3 (Order): 01/02/2025 10:54 EDT, Qty: 1, Type (more content not included)... [facility] 12-13-2024 Outside Records [id number] [facility] Coding Summaryon 12-06-2024 Coding Summary HTMLBase 64 VowlecynNNv7qFj+PGh lYWQ+KY4CPNXfD42qtD UmoA0zM7ZVKTnAHpemQ CEXWOxXFzQorhVuZO0e aXNjZXJu IC8+NR9hKEPvNncbrLC pc7U7zJV2T27zwu0rMT qziSN0XEMxQtJfoceez 4nwpQu0OZasHpnoJiFm PTSmjP25OCG8aZ52Cf1 6uYTciLAli1uqfZu7Jl WsMUNvIOY7bXaqLIaax 6DqLSMcD24qgEZdy2I4 IGNvbGxhcHNlOyBlbXB 0oF8jDLwsfahzk0sdka yfUnv8ms75vCAtz9O0z RC9B8QnecC1RYTrlUYp QgfkbWSAoI1bwmnze7w deqdyDxYwFRRoPLl9QS v6HIJhjRmcZfSyGL03M OY3PAOymzRlE6ZjQRPm bByvYiG9v1L3Sm5AR8M GLlwuS5AZQSHCNFoxbU Q+SN32zd78B8XjCwpbO ib5BWIuYXT2gHT5fY0i PODdQRqdi5U4oLU1V3X jmdDekb0fv6ptRNXsDI gtW59bkACki0I3BWZxz BR7UGMpxOhpYgKwsO19 Oyc+ILVmbForp5KsUdp bf6ikb9etjSp5IpxlTX GmukIzpLwrYJR3w4GeO e5mHZKpaTU0jQS9hI6r IxCjQaJ1VWqvJ429MxR yuCIbNmllZ14eQ9TivU A+EGPvFzv8OWAbdTsyX U8fN2WnPRTdudisqXHd zSrfUX2hOOSojsieWBO xyV5jWZDjG3v9RsScOp T7OCrlB6DoOHZklfyrT a37nQ0xCgHoNnG1NVxo I9PnqsH7SPDzuLEqQKx hXOY2K41ne1H6AZWjJQ UnSKJ4qGL0xX5uiDklt jogbGVmdDsgdmVydGlj TTscKNwcQ259SZJyqEw nPkNvZGluZyBEYXRlOi AgMDYvMjAvMjAyNTwvd GQ+JLZzOOK8uJevQMHp tMMiGOkhPn5blNupvXg zAT1rCTNlnhmaVWXqzQ 1fHTXxvAOblMilCV6rN EPzffnvc478QmIuYEO9 KSHppDWzG5FueE1lGpC cFVYxQLTwW9KorHFwHP hjB818APitByK2BLObc mRsR1ZcOAOwaEwmRyD8 f2D0Uw9Lj8XbpijqD8R xmNJuQpNcVtrlMXo3W8 RkPjwvdHI+QV12MLZoY Y35LVh3QKI9gZpnAGsu VXSzC0EhfC4yDfPdOBN kZGRkOyc+PHRhYmxlIH dpZHRoPScxMDAlJyBzd OikBE4qJy3nPFRqGGRa mEfqvMUbQbLtl3xsLHF mYXplEE9nxWqwJ1GoiO I9KHGar9m9Bs33Y27cE 3JvdXA+FTGgqSF3kXZ8 eR4kOyMjBiD5ZKtbM08 6CbImiXMdXaflc6ubk4 fniNn7NgS3CVNuimBdb MnxFUS7p1YyVv06W54b IHdpZHRoPSIxNSUiIHZ rhKyzke8ckY9zRv3+PG DeoOM6kWS5lN9sYpQwC zE9ZVtwG903DnWkjUUs Vdyen3ubu6wcjEl4TaU nKPQzajDilVzbQIX5f4 DoAf61H9LymMefg6KaT su0tx23fENpw9S2qSO0 F3HuJEEhklqqkNEahDb fJP8yKURqzzltTVLnpS 3xHDWmX1n1TnRxBmQ4T GyxD6QihjZ5TWNkbRIj MKOocEUTwL1zdijon9k yikcpXsRoQQSeBBy9HG g2ZXBbuRnhVsYcUDY6O oA1CIA5wOXryU6ifYzv rniasM6iOwf+EFN6gBX nvGYJFF2pSgnpoYQ+PH VjNJP6jNlzQYicNGRcv D6hVKYpE6b4UwVgLiK3 SIxlX4HnwdK9IIDvgPW wSSJssZLGiW5scuanm1 mnqmxpTuKeDULdKCx5A Dp3ANRqkFvxVvAuLSN8 DbF9GOO3sGNquQ1ekMz unthqcB7nHyh+QmlydG gxIZV2XAn4M3MqBjm6X SLhzBndXQ6agRAvDIgo Pt0hkPfrvQxuXI4hNQN mwxcsz470BrCbb6evBJ IevZClWMoaZOH5D79ut 7Z9DHBuOKOuNTT9uCR1 tB8zcJplirzndYReyEk gdmVydGljYWwtYWxpZ2 42QYMdaSxuQzRaBWi7X 7EyBqs3UJLrwLgoQT3y lSZpQFllQf7fxTgegZs qFA6fCLWfevmst082Ag Zjx9iyXTKfbIFpLBhiD KJ9R45qk2D8SVNjIXBc HXA3dFQ1wL5ztOxilsr gbGVmdDsgdmVydGljYW zyOYkgW853JBZvaNolP yRibBi7E5FpXwb2LSBr lAxjWG6qxXMxGVjzBm4 ymGokdCazFA9zYHIpvd gfq066NaPad8raJNZia SQtARflGEQ6J84mg9E1 TCNdQEOfSRC6jFK4kO3 hbGlnbjogbGVmdDsgdm BbmUroNNasQYdnM234Y HRvcDsnPlBhdGllbnQg KXjkZSy0E1OdInlqeOL +FR14HNBsKZ74vVZypH Nli4yfaRi0RmZmDJDeB YK4oEbsAXbwb1KmLFXw Z26amMNvz3N4MACjrPq xoOOuHdTkxQT4lF3fCR sqyrmld7fwwokeNelxz 9kfeq76sQ23V16yNQie ZHRoPSIzMCUiIHZhbGl tqp5ubV6rGg5+PGNvbC C3sKI8bL4dMKOfTrL7O BvbI222YoDjkTApNtqs m0iei7wlmEj7WaX9KPQ haqKupFbxJAT5i5ObSk 97D27gWOtwPCJsNJHcV BMsAOXhdGyxzo4muY1v Ii8+SAVzhTT6cKI1lF5 gAhSaAxI6BWuiL172Pd PpsRKcJvndU24wQ1Iqt XA+RRQzIff2ORRbkSmn FW9izPEiWDbqZk9eCDN 0HlXeFiPcIFrbF5HtDT RffpxpyrjpxEU5BNYhM VYleV28Na7zqWroYWRz qLRLfQ7saqyzk1dpkrx zZiXkUSMeMVw8LBc1JK QbwBpjRiAvXXH2VnK7I UF1eUCtnO1bsJtbmxmr kQ1nY8CqRQCvqqgeEw4 8cM8vMuFxVuX5DJnvJv c+H3LTQGGDKEXCYXvkN SWGKXYJRG05OZ50lOCy g5S4zMQ0P7EoOOHletq pfuvljDJ4DRYwKOEpbB 60mJVkCOxqDg5ha8B2k 873XJHkREXmlR54Nw3l tZljTXZnrMGFsT1aktn vi9ddwslwUvQxWSDlPO o0XNl7IALedSbnFrOrC HC9NrR0PUY3cVHhsH0c bJbgdewzxI5fHzo+MDE eBZDgJYa1BryqtAR+PH IyUWE9kUckBWjcNYYol J2tBJIpB7y5FsQcXtB6 MAeaM8XxTAPditlgUd4 3qV2hHpPpIdT2UPvlZ6 MixcY0WSMuwIIxEIaqE KW7A53mv2A9RGYdKNUl BDU7lFR8kS4fiPxnroc gbGVmdDsgdmVydGljYW iqIMohC318LMMptJazA ssuALmuJVWtVC01DS30 jLJgb8Z8hRL6K7JaWSZ bgzepnwvnmDI1YMUaYY CbcM48gEZwIQrzWc9yg 6V9t235IWLnWGPgwM83 Lh9ezJrnEKTcgCLQzF4 kinzlb9qxejciNnPpZP OqLAo9ZIs2EAEffAzeC rVpUCD7IkB0KYO8nHEk kH6cqBrwcrdcwO2gRvp +TUFMRTwvdGQ+PHRkIH Q0hSahECeiDOMrlK0iW UAjM8v4IeUoZlM1LGhl U5LyUPRwqtwaCm44cD7 lWgPwEgI3DFcwC4Bmjm Q3EOZpsCUbXZswKTF5K 73ax8U4ZADnURJzSPA4 eIX8yY3guSrflwjyyVE mdDsgdmVydGljYWwtYW wkD518OQOjiOpfCy9UW A32LC10S3WrEkxceAFt bGU+PHRhYmxlIHdpZHR oPScxMDAlJyBzdHlsZT 4lBa4hXRDlWWCzrLzdh VFwPbBej5xgQRQsNExn ID1qnQvkQ6PzpKW9KXA oz6f9Ez14I74mH6TeqH A+WRCyhVF5zOJ3tR1wK eYwHfU5PZatZ942AkSy iSSfVnmmd8zdb7gcuBi 9IjMwJSIgdmFsaWduPS D9s7JbHc90U09vWFdqK HRoPSIyMCUiIHZhbGln ly5klO7iWp6+PGNvbCB 8gEM3cR5kQmXqJiA8WV fmM447LiTvnKTkTsrvS 82pD5CteCO+PHRyPjx0 NFEsyOgjKS8jcHYwSPw aXn2hDDQ0FfTtQtQvRR qpU1XwKKRqzjjvzchpw RQ5YHLiKXHjnU12Ms9a jRhyYk5jVKTyFUZ1HCE ktVSdC1AsaT4tNzGhVY VjOQGwZ5GmmIIkQVqkU 243PIxySqN1OBHmnuPr N8TpNPDyyMoyJqM8x6N 2Ks0UwQrsdFHqKL1iEs OfJUy0G6ZtZzf6LRJvm BlxMU2lgOGoRUevDo1a kXihyAxeBH0zXQNjlgg ss150XxQoj3seKTOuaJ TgNSswZIW0X79xs8Q1Z HXfNMOrDRP7tWL5pG7a bGlnbjogbGVmdDsgdmV huXedCIspMOifV159ZS FceTnxVnDYXpv5D9OoS iq5RBFraWtuHY7pvQXq CSolBy0gkLuvnRzhCM1 nIBRuadfus734DzUsp7 deQXYzvOAcXZefKVQ4T 35hj3X1BPWiUUWcBVH1 aYE0bP9ggKyzfscioJU mdDsgdmVydGljYWwtYW ibU018GSNfqKcvJy7GD bn5G8YaLgq7MCWpkMnp JD3kaLNbUObsBi6zlYv cwJcyLY9vJTUukxniq4 52NsXdp2foOASlhAWeJ ZblJBC8H09gh7D5CETf NIDcPVT1aHU9nF3naJw nbjogbGVmdDsgdmVydG iaHPorQVeiJ314ZDBjb DsnPlBheWVyOjwvdGQ+ PG12yd16U8RoYuzjOem 0CJXgSNK4nZX5hZ8jFQ DvWDagj6Y6zYM0D9Lrl xAjzb5zg4ntQXHjXYsk Y29 (more content not included)... Normal [facility] Office/Clinic Noteon 12-04- 025 Office/Clinic Note Patient: RICHARD BOYKIN Age: [...] He also continues to follow-up with his well digger. He reports he currently is seeing his bobbin inspector for an infection on his foot. He [...] 104.000 kg Body Mass Index 32.46 kg/m2 [place] Body Weight Calculated 74.087 kg BSA Measured 2.27 m2 General: Alert and oriented, No acute distress. Respiratory: Lungs are clear to auscultation, Respirations are non-labored, Breath sounds are equal. Cardiovascular: Normal rate, Regular rhythm, No murmur, Good pulses equal in all extremities. Impression and Plan Diagnosis Diabetes (DDW37-DE E11.9). Plan: Will have patient increase his Toujeo to 26 units twice a day. Discussed with him about taking his insulin regardless in the morning. Continue to monitor blood sugars with continuous glucose monitoring system. Should follow-up in 4 george (more content not included)... [facility] Provider Orderson 10-30-2024 Provider Orders [id number] E#[email or web address] [facility] Office Visiton 10-28-2024 Follow-up visit [id number] Richard Boykin 1940 M Date Provider Department Center 10/28/2024 SWEETIE TRIMBLE [facility] Family History Problem Relation Age of Onset Stroke Mother Valvular heart disease Father Family Status - Relation Status Age at Mother Father Level of Service:73665 [place] OFFICE/OUTPATIENT ESTABLISHED MOD MDM 30 MIN [facility] Outside Recordson 10-28-2024 Outside Records [id number] [email or web address] [facility] Outside Recordson 10-24-2024 Outside Records [id number] 879#[email or web address] [facility] Coding Summaryon 10-23-2024 Coding Summary HTMLBase 64 WyzvchhjWYd5dJq+PGh lYWQ+JS1OIYZyT02iwA FnhE3rV8BVMXdXQdrtF PFWDTqMFwJahlLjVE6j aXNjZXJu IC8+KD5mOOMaPyhhyQD it1A0kGJ5I58tyb8vHB xnyMW6HKGfWxEysdots 1yofNb6XPzwSkrfPwIc EAFkaF63ZQE8eK80Mc8 3kJChsXByh2lcxZf9Mz OmOXKiHGM8cAzzJFcbe 7SbVUYaB43asZFip0K6 IGNvbGxhcHNlOyBlbXB 9dA3uYUgiwqlbx4izzq rhLcy6ku68vBKbi0G7i LJ3R2NpcqX4MOJlnDEi WtwezXCDjQ3jeosmn3n jrdbyNrTjHASgRGm6ZR b3TDYjoSryUrPwZF98X QY9AKWsbmXdA5MsQPQl bOgvVtA2t9Z7Tt0HY7K TYcjoM6DSGUAVJUdcsG Q+TR42vd06H0IiSokeZ ub9MRViOKH4yZG6xF3n GUEvQLgfz5D8hSU3W7U kawLorz2qn3vsDBWyFY xhX00fpSOfp6T4OCDdg FJ9BCTsoBllKhUczM57 Oyc+TRYaxOsqy1EhDjl if9zhy2hriJv5WcgsIJ KbflVxeDllFFV9s0KcY g9wJDCgzKK7kAN5cI8t QvKwSgN1WHeoA311EnO ozDVnSsblZ79lW8KrfW A+SJAiLrj0NPIvqRtuR V2xK3ZxRUSvgvckpHEy kJhiBN8kLIIsclomBRG igX4yYMOdF4d9AhJiWn G2SQyvB3BeUOFiortqI e25aM8aQwEoRfQ2ERwi H8TjyjL7SLCjwFEhFCj wOJP0V63oj8A9MOGiKY GhRTQ0gCK6zM1dtBnso jogbGVmdDsgdmVydGlj KSkaGMdtF558PHPshAb nPkNvZGluZyBEYXRlOi AgMDUvMDcvMjAyNTwvd GQ+JHUtQBP4uCwjPLTu nJVgVAmoUo5anBovbWn pYN3fVIYdofazYIMbrV 2rWKBmqVXyeMlaJV1oL XAxaujtp593UnKlOKF4 KYDbaQRuT8TsnF7gPkM lDOQmFYJuQ0WrlLHfGT wwM934MKapLlE7PJHes fXjL9FmGTKdxKfdOzH5 u0X3Pf5Jf8BvlasrS9X ohUJjUwNqEiqlRUi3I4 RkPjwvdHI+KB31IRBnX T88ACa7SFX7pEsqKPav SPJwO0XolG9vSmXmRIL kZGRkOyc+PHRhYmxlIH dpZHRoPScxMDAlJyBzd McrHI1qZm7hERSiGMIh uDyctAPvTaWlk0haLXI jPIfqNI6adMxkM2NgzB D1KUMhi4v5Ru01O24cU 3JvdXA+RRUxsCX5xVU2 tX9fCkCeElV0IRyfI71 5PuHhgKQpGppso1eev6 sjcHl3ZzK3KLIvuuXpl LukBFE1m7NwHw64L10z IHdpZHRoPSIxNSUiIHZ tvSpeqx0ewD0nVm5+PG DolJT3nER8uG5eJeZrO wN8ONfaY573CnFvlWYb Gjjqs1qfp5rqyUi2RqL wLARponEexHocNAO9t3 CgJi91Y2FzgAbld3SxL gy6xs79gGWyc6L8sIA1 F2WsHSQvlxxwnDIjhGj dAP4hRHGkaojsGBYjgX 0eBYAzA2q1FhLvGrF4T TzpE3NnuiV6OZMdnXGg CBEtcHBTmL7tbkepx4p ombjrNzChABDaQXn6KK y9ASMswHcpUlOsEIK0O oH6XTV7cQMmbQ7gbFkt dqmmiM7pVbo+EFG6gUH ygZSXVN1cOmsxqOJ+PH YdEGR6kDxpQXefZQPbz I0rRDUqI8k6PfZoTaD7 BFwiS2GhgpQ7GGPtaKG fEXYupMKLeD1aigawb5 eecrplLwBcFVQbAQh1V Bc5PGDkjFyaJmDkMDZ6 AoW2VOW5nSVfnE6ltNw yzpotmR1tAri+QmlydG vgGPK6OLi0N5HtTwa5J RXoeZzmOD2uuCExWOeb Xx6nmBmaeOifEA2oUXU behqxp094HmHfr3zxVS ObnOLoLNeuPAV0F82gp 5O5IBEsYXObGPS5nMG5 xO6udIzipikobUYniFh gdmVydGljYWwtYWxpZ2 16ZZIvtYrvZdDsOId0I 9AqRqb5LTGldBvwRD6j cIBtIBspTa7duHflgBa jSQ0iACJkaqfme379Hh Qwv3yfAGTqhNBhMLghK RR6U81bw3P2HQPfQUTq ODS2dPF5jU0csDjkjaj gbGVmdDsgdmVydGljYW seGVhlY537RDIwqKlyP rOgvNj7Z0LtCbr1BPHx xFnjRY0zjUVmILspRc7 ggAfsjMvuLJ3uQFUixu ncz759XbPgm2rrIFMin FUxVJzhQMD5M13rp9G0 KHRiNEAmLTI8vMN7vO6 hbGlnbjogbGVmdDsgdm ApzLwfGCvfYRddK124R HRvcDsnPlBhdGllbnQg SAfiHFt2C4NsJqfpyPA +UP71SCZkPH31dOKjbD Sce0quiLr3ZmVlTEJwD QD3eDxbCTvfx8TwSAAs C49txADrh4Q0HVGxwYh hrEGcNfMxuSL7pH4cQR mfdpmxx9ccwkdaYejoc 3kiwd46zK23G60aNQnl ZHRoPSIzMCUiIHZhbGl ogl8pnL8vRs6+PGNvbC O4dVR0eI0lCGXdAcH4V JphH343XeVzmTEaPprd g1xcu7kpdAe5PwZ3FEQ zrcFmhHmtXNV1a1SrYd 40F53jHLjiGKSfFVNtN KJhVKCvuLlbvu6qqI2j Ii8+SSUdiBM8gFN7pP2 lYdHcTcY3MKdwO384Dc XfjDRlXgefA93eN2Izh XA+COBsAft1TKHvvThe WE6xuAPvHKcyMn6vLLS 8XfNeClKvNZoiQ7BhQK OfurlbdhnxuXZ3EHJdV XRflM98Iv4uiGdwJDTs cNBZeI8lqsvum1uqyqa jVcUiFRPgUMz8VEq7HK HobOwhSjQdQON5WyN9U CU0iBJwdD9cbLmteamo tA0wD4UeRHXehhshQg8 3lS2sPjDzGiU7NQqjHs c+U3JEJOZUYIVILNwpZ XCHZHBZUQ08EY05lKHa a5Y0tRQ7D1UvLXUkjrl skwhrdCA4IUZoRJCtjZ 58gTRrZFwoNp7bm8Y3r 452LJAjJCHpaR06Hi0d lArtLDYcnIIZyR2doxj fh7vdpvddIjIiPYAxKK y0QPn1MIUmlFwrPdGeJ SZ2PsV7ODZ4fIGajS0v gOoiiurccF2oLvb+MDE zNRLpLWj1EokdoWA+PH SxWOK7pYrtZLizMXCbk L1wTIFkP4b9IvWoOiF4 PBiwN3HzDVCbfqkaLt8 6aB4pZeSxAeQ3CNsjU5 ShzyN5NCJwlTZwHLrfK IN3Y09ft0F5SDEmWYBj TPZ0aSX6jP3ctMkauiz gbGVmdDsgdmVydGljYW nxOHunQ787HLCtnDiqB pwyHOlfDBWbNF35WL67 fZDsa9D4hGX4J3PyWOT bbjkdojsioGK5SOSpTJ EsyY21gRYnKVodSe2cr 7W6j728QPAiLUJroY86 Zk9hoLlvWGSflQBKuB4 ruqqzp9vkethwVqOkWM YkVRt4FGr9IUUseXjoW cPwUCF8BmT1ZDC4sBAz aI4pqBswehdhuW7kKru +TUFMRTwvdGQ+PHRkIH O3pJkmNGzmWLJdhN9qK TAyA0d5PhDyXoI4VGga P2KjDUYadxxxIv15hE6 zQmEgQxU8DBmtL3Zorc P1YZHdtRRxHVgjGVK7L 47ay7H8PDEiETElWFC8 pLM6kU8sbJxrjrngwCU mdDsgdmVydGljYWwtYW jiS694VVFfqKflWl9TF O99TT88V9LwOlehbBDb bGU+PHRhYmxlIHdpZHR oPScxMDAlJyBzdHlsZT 5kSg6dIRHqGQRxdUkfq XVdBrHzx9xjJCZmKQip OA3ynQadT6JrbLD9DNO lw0o5Nq76Y31cI4KraC A+SJTqsOG7cUZ9tT7pK kAgDkK7ZFrfS661ZbKg vMDwJjbdd4dvl0labAh 9IjMwJSIgdmFsaWduPS S4s5MsDp21W48yGHjkZ HRoPSIyMCUiIHZhbGln sy5qgK5qCs8+PGNvbCB 7aDJ0gO3yGzEnJrJ1ER twX072ApUqtDBkRkbsL 05aR2SdxGJ+PHRyPjx0 XZLntFemHD7rlHYlQOd fFc6bLIN7KyVvUjJpQM bnZ8DrAOWkssyugfvgo UZ0VTZmYXPpoD32Nw4i cYuhBu5mOVCxZRV2GJM epOJhQ5DjiH3zSqGdJL LwKPDqW5OrqVPfCAvrG 447OVneZcJ0BTLvlsPk L0FqVTRflJbqYvB0f5S 6Wo8VuZausFVcIC2fBx KmANm8E0SvXsx3SZMst EhnYX8mmZLfNHqjTo5i iCvjwDzuQF0wZVSyxbq vi178GmOzw3qmHWNviR TnEYooKJC1W68qg9L4W IXjEITqEKU6wHC9rE6a bGlnbjogbGVmdDsgdmV qiCvzGEytBMwhI048BZ RmwQlaZrIRTcx1M7GyR as9IGUlcShjMS0wzHGc ARsgLe3bqNlgnFkhWW7 vVAZzpvope144BkPxn1 xjTVRbsUFpNPsiCUU8O 67hx1V1YUGtUHSwFCC4 zFL4jV7bwWtgsenlgPR mdDsgdmVydGljYWwtYW lwP071MWSwwXxoDv0ZK kb1H9UpSqh4JEPhqCnr FI0chETnVEinSx8zlFa qvFnfFA1qXSRsnyyzx6 85AwYro8ufZZKisYNdZ CkgHSD5B69ou5V1LYJf PAGlAJN0qUM0bH9zwHz nbjogbGVmdDsgdmVydG muXBwgUTqdP043YQWlp DsnPlBheWVyOjwvdGQ+ OS21fp39U1StRfceEkp 6CWPqGUL1oJH5qE4oIA YzCZizi0I1mLF8Z7Vvl yYniq6kj5krZWUbIWow Y29 (more content not included)... Normal [facility] Standardon 10-18-2024 eGFR Non AA 35 mL/min/1.73m2 Invalid Interpretation Code [facility] Comment on above: Performed By: #### 1 [id number], [id number], [id number], [id number] ####[facility] (DEFAULT)[address] [place] [address] 80591 eGFR AA 42 mL/min/1.73m2 Invalid Interpretation Code [facility] Comment on above: Performed By: #### 1 [id number], [id number], [id number], [id number] ####[facility] (DEFAULT)[address] [place] [address] 08692 Albumin [Mass/Vol] 3.6 g/dL Normal 3.5-5.0 [facility] Comment on above: Performed By: #### 1 [id number], [id number], [id number], 7403550 ####[facility] (DEFAULT)[address] [place] [address] 09181 Alk Phos 144 IU/L High 32-91 [facility] Comment on above: Performed By: #### 1 [id number], [id number], [id number], [id number] ####[facility] (DEFAULT)[address] [place] [address] 22957 ALT [Catalytic activity/Vol] 32.0 U/L Normal 17.0-63.0 [facility] Comment on above: Performed By: #### 1 [id number], 2188960, [id number], [id number] ####[facility] (DEFAULT)[address] [place] [address] 74542 AST [Catalytic activity/Vol] 37 U/L Normal 15-41 [facility] Comment on above: Performed By: #### 1 [id number], 9683652, [id number], [id number] ####[facility] (DEFAULT)[address] [place] [address] 71319 Bili Total 0.6 mg/dL Normal 0.3-1.2 [facility] Comment on above: Performed By: #### 1 [id number], 9105403, [id number], [id number] ####[facility] (DEFAULT)[address] [place] [address] 73380 Calcium [Mass/Vol] 9.2 mg/dL Normal 8.9-10.3 [facility] Comment on above: Performed By: #### 1 [id number], 8094659, [id number], 7897443 ####[facility] (DEFAULT)[address] [place] [address] 15085 Chloride [Moles/Vol] 103 mmol/L Normal 101-111 [facility] Comment on above: Performed By: #### 1 [id number], 9881247, [id number], 3675452 ####[facility] (DEFAULT)[address] [place] [address] 55854 CO2 [Moles/Vol] 28 mmol/L Normal 21-32 [facility] Comment on above: Performed By: #### 1 [id number], 4693414, [id number], [id number] ####[facility] (DEFAULT)[address] [place] [address] 14933 Creatinine [Mass/Vol] 1.87 mg/dL High 0.90-1.30 [facility] Comment on above: Performed By: #### 1 [id number], 0390975, [id number], 3261571 ####[facility] (DEFAULT)[address] [place] [address] 94708 Glucose [Mass/Vol] 105.0 mg/dL Normal 74.0-118.0 [facility] Comment on above: Performed By: #### 1 [id number], 4444752, [id number], 2084649 ####[facility] (DEFAULT)[address] [place] [address] 44684 Potassium [Moles/Vol] 4.2 mmol/L Normal 3.6-5.1 [facility] Comment on above: Performed By: #### 1 [id number], 1009925, [id number], 8058169 ####[facility] (DEFAULT)[address] [place] [address] 62518 Protein [Mass/Vol] 7.2 g/dL Normal 6.5-8.1 [facility] Comment on above: Performed By: #### 1 [id number], 7115503, [id number], 4395134 ####[facility] (DEFAULT)[address] [place] [address] 51729 Sodium [Moles/Vol] 140.0 mmol/L Normal 136.0-144.0 [facility] Comment on above: Performed By: #### 1 [id number], 6087112, [id number], 1309845 ####[facility] (DEFAULT)[address] [place] [address] 02939 Urea nitrogen [Mass/Vol] 61 mg/dL High 8-26 [facility] Comment on above: Performed By: #### 1 [id number], 6246861, 1351147703, 7312508 ####[facility] (DEFAULT)[address] [place] [address] 04221 Albumin/Globulin [Mass ratio] 1.0 {ratio} Low 1.4-2.6 [facility] Comment on above: Performed By: #### 1 [id number], 4651392, [id number], 8002628 ####[facility] (DEFAULT)[address] [place] [address] 30232 Anion gap [Moles/Vol] 13.2 mmol/L Normal 5.0-19.0 [facility] Comment on above: Performed By: #### 1 [id number], 1191436, [id number], 1410236 ####[facility] (DEFAULT)[address] [place] [address] 08828 Globulin (S) [Mass/Vol] 3.6 g/dL Normal 1.5-4.3 [facility] Comment on above: Performed By: #### 1 [id number], 4928781, [id number], 4236738 ####[facility] (DEFAULT)[address] [place] [address] 32738 Osmolality 297 mOsm/L Invalid Interpretation Code [facility] Comment on above: Performed By: #### 1 [id number], 1412104, [id number], 9511029 ####[facility] (DEFAULT)[address] [place] [address] 32533 Urea nitrogen/Creatinine [Mass ratio] 32.6 mg/mg High 4.6-16.2 [facility] Comment on above: Performed By: #### 1 [id number], 6996788, [id number], 3157046 ####[facility] (DEFAULT)[address] [place] [address] 26689 Free T4on 10-18-2024 Free T4 [Mass/Vol] 0.83 ng/dL Normal 0.61-1.12 [facility] Comment on above: Performed By: #### 1 [id number], 0389307, [id number], 5683907 ####[facility] (DEFAULT)[address] [place] [address] 85832 Lipid Panel Standardon 10-18 Cholesterol [Mass/Vol] 142.0 mg/dL Normal 66.0-200.0 [facility] Comment on above: Performed By: #### 1 [id number], 2759419, [id number], 2159555 ####[facility] (DEFAULT)[address] [place] [address] 61752 Cholesterol in HDL [Mass/Vol] 58 mg/dL Normal 40-71 [facility] Comment on above: Performed By: #### 1 [id number], 0024238, 1591158947, 1625790 ####[facility] (DEFAULT)[address] [place] [address] 75878 Triglyceride [Mass/Vol] 85.0 mg/dL Normal 0.0-150.0 [facility] Comment on above: Performed By: #### 1 [id number], 2299805, [id number], 1118906 ####[facility] (DEFAULT)[address] [place] [address] Cholesterol in LDL [Mass/Vol] 67 mg/dL Normal 1-100 [facility] Comment on above: Performed By: #### 1 [id number], 0710452, 4963446679, 1181433 ####[facility] (DEFAULT)[address] [place] [address] 98856 Cholesterol.total/Sue sterol in HDL [Mass ratio] 2.4 {ratio} Normal 0.0-4.5 [facility] Comment on above: Performed By: #### 1 [id number], 7941562, [id number], 1504152 ####[facility] (DEFAULT)[address] [place] [address] 56374 VLDL. 17 mg/dL Normal 5-40 [facility] Comment on above: Performed By: #### 1 [id number], 4481722, [id number], 1214340 ####[facility] (DEFAULT)[address] [place] [address] 16478 Provider Orderson 10-18-2024 Provider Orders [id number] 78#1.00[facility] TSHon 10-18-2024 TSH Qn 2.16 m[IU]/L Normal 0.45-5.33 [facility] Comment on above: Performed By: #### 1 [id number], 6460476, [id number], 3948611 ####[facility] (DEFAULT)[address] [place], [place] [address] Provider Orderson 10-16-2024 Provider Orders [id number] 8#1.00[facility] Coding Summaryon 10-08-2024 Coding Summary HTMLBase 64 BymkgqpfRNg4qVg+PGh lYWQ+RV2BOPCvX92dsO OevE5dJ4EATJwOSkurC FWQKDySApTpqhZsMU9z aXNjZXJu IC8+DG9bJCLqCruozIA gx5L5aKH5A06vmo0nKI lptNC9DTUmVkGlhiiwi 1bpgOx4BKgxNuhpFzIr IHHnzA15BPL7eU17Ao0 3fORtiZSxy3btuTa9Nb HiUQDlRPY7tKdkEJkkl 8RnJRWfA35roNHkl1M8 IGNvbGxhcHNlOyBlbXB 0vO5xRFeiiqagl7frxo wxKzj6ly00iRScn7W4i MJ8K2JrlnA2CRIkqRYj HywqfRIMuB3hhktvj6r yrzioXyMuNLMsRIy9YS p7FINiiJpvYjKoDR78H HG8WSIqrjKiU6EcJXWv aPcnVoM7k2I7Yr5PN5G EUkcqN6NPBXNOTKtwyD Q+XG01zq97V2IfTimdT hr9EQTsPUQ6jNE5qO1n DLPfZMxtb0F1vOF1C5C npiYgcu8oh1xyTWHqJT ppQ39bmVLzl3D4DXVmo MM9DUIcdHqqSwGsbB40 Oyc+HVIvqDbfb5BvTwf bl4lut3xgnFv5RfnzDY FjsqYkwEawFIV5l9TqU f8zSMUovSJ2mSZ1pU1u QoGhFqB2UMfpR566MjZ rxNKrLmaiI67tY5NrtY A+FZKvCku0CYPdpFndE I4mW1HeAMIvusywvLGw hMybVT7gQOBiiamxSJF ueY2hSSDrL7o6AuMxAo B3KGarG4ZmYVFtczsjC y98vZ3sHzMmJvQ7PUoh B0FwiqA0CHWiyPCyZSa fCQF2X94xa9Z3JLFbOA ZjDTS5cED9eN6ruDjvd jogbGVmdDsgdmVydGlj HLrzOTmeZ792NYGrqMx nPkNvZGluZyBEYXRlOi AgMDQvMjIvMjAyNTwvd GQ+JYHtBTM7jAblYRQd hEYtZOdaFd6msAzibSv mEQ6oRFEfgcrkNCDpfP 9gDCQpbNDgzBcsYP3qI GHycybqx621KcYbBNM6 LONikWQvX9AqlQ2qKjC gKRBiMCHeY3GktUUdMS dzZ906DTsdPyY0YFCbv zScI9WbMCWjtHejOuZ6 j1H3Mp6Qo4HwddleC2E pmJYaKgGkIxkbOCv4C8 RkPjwvdHI+TB66MAYrA C34RRu6ZBN5fQveBYur IEKnQ3MioV1yUqOcCSY kZGRkOyc+PHRhYmxlIH dpZHRoPScxMDAlJyBzd BwaHP4rPi8zRVWuLWSp bIxvlRFhTfIsx6suMCK wOAkiYU7ftTqoL7RnzT J5HKGxb2f9Ho80K49jZ 3JvdXA+JCWclFM6iJK8 yB8yDlRoDvS6THdmH65 6RoJqgENoBzckf2oze4 leaHc0UbA3AOPeapUfg DohZJA1a4KcFx90U30s IHdpZHRoPSIxNSUiIHZ cwOvkse5nnV7xGv7+PG FjvXA6iDY5gV5bNaDmD iY6MNlaZ830GiXlwXAw Yqqtq0agr4dnaOg5OwN vFMZmnaQdhStmCTB3w8 ThQj10X3XmpEuqp6DpP ki5xy06gVSzb7M8sFJ8 X9RsEZAurscsuEAmqKm iMN9hAWQboioyYBCebG 8tTQThY7i4UoUeFkV3C WviC6VskvO1AACvjTUb YGRplTWPvY3ajvpwc0v mnnjhGoMdZUXcUCl2KO r7GPMhpWhqMnNrNBH5H wZ1WBN4gOGyaI3gvFyp zifdvZ5eVht+XYC4iEC coSYXYP1bCcsggFF+PH ZfJBH0uFunTHonJOZgi E5fNIAuI5r8KlGtLaN4 VJfdR8MegaX4VZSklZG oWWNscVHUpO6tscviy6 jsmptvDhMiZVXtANz5X Vp7AVLrpYacEyUxXRG6 VqP5DKE3oEXwnQ0dvBw svjjsgO7fCgc+QmlydG isARQ9CRj9H8XtHgh7D VQibMhvVA9znGEtZLxe Nu5neBbcvMbyLO5iLJZ nwnnow580XdGzx3qxHT SmcQZcRUdnYPV7G14dy 5S5OZMhPOWwPWI1oXP3 wX1woCphruqecXYjdVd gdmVydGljYWwtYWxpZ2 91ZDXykXtzJoHmKWb7Y 1LcLhi3UNMuaCrhFL1p aJTeVDwaRt3fkCwmyAo rTM1vPULlkvibh809Gy Xtx9hyGZVliXTsDCvqG AE0K28tn0K8SIMjBWZx UXS6gNX7jB0skWfqeot gbGVmdDsgdmVydGljYW niKZwjS300KLYagFzdL pPdfZq0H4LtNul9PTUw wEtiVA4etUTdVWcaDa8 hiNayrUrfDU0vKRFaxz ruj130PiCrw7eoHJZds YAhKYhnQOK8U37hc5P2 XCSeFGLgVFZ6jLH4aH5 hbGlnbjogbGVmdDsgdm PmlQdyTXzjHIbpA811A HRvcDsnPlBhdGllbnQg NUbwUMr4K1GwUrrxmQV +KE36EJJmEX12lVXenS Lli3lbiTb8QoFuHDUsE UB5qPvvHBbss7YqQRGu X71fyXEjq7A0HBTgfWg afCTxAvAstFO2hD7gEW uwylwha9qdctsmKjrds 1ypek27iK50H87zNEii ZHRoPSIzMCUiIHZhbGl sgv0tvZ0sJx7+PGNvbC G5cPT0dF5vGUJkKsE1P ElbE280PoCrzLWzTsvk v0ejp5frhQj1RdF3RDF ncvKoaTwtZQQ6t3OmAj 28G00zFSrhBTTzJOVpA RCgIHFpjTzojl9kkO4p Ii8+QMRtyBU7pIE8gG1 nRtMpDxF8PWaqJ686Vp OyaBYfBejvM71yC1Rdi XA+DWFpOaw0JCKupFwy WT5bvNEoEZuzXn3kGIO 5TgAzKvTnAXtmY1CkQO DujxuqhoqwiKR8EMRuX GMseE90Zy4ijVxoMRYs bLSHiF5ykvzsy3updbx tEaXuUZTfFCs3TPl8VE TkzJvjXySzAWC4EmM8K HY6qSUzlJ0plAxrdnqs qP7cD0IrQXNonjmcWx0 9pH3iVbXkGnD7HWmeYe c+B1VWQHUYHUKZMHncW YODUDFJKK52GQ27wZUf f0K5qOM3K9JxZVSpbbd rogmqbQI0TGRuXUMvqH 74oMAsMKtpKo0vo4N4n 034WSXpAWKftG17Ja7c sAixPUQzzNAZsK8sprt bi1dszwgzQjTxJUHxNH m0WJt8KYOqeAmyRmAiQ MV0OfC8ZSF9aMYpyK0d kLkxwdmyqI2yIfa+MDE qURQeJAa6KdduvQY+PH ArPTF4pVeeRHpvPOZfw Z4bPFKqC7b0McYeNlG3 NGjrY7FyLZIcgympPy3 5nI9cNqJeDgG9YBxvS0 JaijG8YBLusBEbYZkyZ BE7K54ks6L1VYWyYVEm BXT5kPK5lU5fbWgraeq gbGVmdDsgdmVydGljYW xhKBrpC968ZMCzmOzsI emdARoaFJDtGI71BM86 iOQmn5D5mMT1C2ErCPA sznhgvznaiFL2LZPzCQ AyhE88vDZxIRayTx0rb 0K4i304DBRmASUocU48 Hs6juObfZLSubOUArB4 eccbge6nvuiacZsOuHP SyKBx6CMx8ALXivWsmN uHgUDS3UnZ2RLY9lWVz oG7omKbymobieV3cChu +TUFMRTwvdGQ+PHRkIH K9fFigKLemEUPsuJ7eD ILiJ7k1WrReChS3VKea X8AcULNjjurnDv08mH9 eGwWxLmT0CPcrL9Fjyk Y5JULoeCJkCNhsDYW8M 43qb3L9KLCmBHIhGBA5 pVA0wL3koNjqqtzczEN mdDsgdmVydGljYWwtYW myY038VWPgoPrxRrEcD 3VycmluZyBPdXRwYXRp CS06PC22AI37W3NbNar vdGFibGU+PHRhYmxlIH dpZHRoPScxMDAlJyBzd CyrOJ9fSb2ePHQeAOFv pLscsGSjWhNsr2ujDZX eXLzwWX6ziQqyF8CbwD Z4HPRnk9r0Wt59C13hP 3JvdXA+ZKMqbXQ1tCD3 fY2fBoEhNcT9JYpaP06 5JxYsrRHqVvpmb9nbw1 setMp6EzNmCNZbzsEgs TdxSPU6l6JgUu43B03p IHdpZHRoPSIyMCUiIHZ wdCquzv7eqH7bSa9+PG NrnJI1rAE3iT6bAgAoG nG6ICmwS206VwDtyYHl WmtaW12aV4SvkES+PHR xBbz5PLYqsTewVC1jnC XsRNudJg9wEJB5AxGmY aNwQSlcU3CtFVSobpub venkcZR6SZFiNHOudU0 0Hz5omQqxAd7fQVPhTF R0KZTjzJRuM6OnrQ8dR rDlNFRxYZWhM2GcnPYb DDoeS376WVizSgB2ZMV ytjUpA6CaSXHyfExrKy R2f4U5Xn3OpRhzgXMyO N7xXbRlGQj3Q5RiDcw7 YDKcyZpxIT6ckPIaJUt hMp7nkFhckXliWP4dDX Jnkdtfp544KyIqx7spX VClgBLmAJkuLZZ5P53n u0T8LMQfTZCaRWW3tNM 6wJ9etCslztcpuNYutW sgdmVydGljYWwtYWxpZ 293MRUevNdySjUCHus4 C0OhSta8FGMtmRcmUS5 peDTsIVqcOj8umAcwyQ leCU5vLAPrhbpab834R wAed4qhMROgeIKeJThf TXZ3S47lp5I5IAJcRLK xTNJ7rSC7qW8wlWvysl ogbGVmdDsgdmVydGljY CxmJFgmD640HVMioCve Vq2YTdc0Z9VzIbs5VNP vxBigQH5mbLAdFUaxXy 2ydJfksFvqLT5vOTFyd bmji654NuPzk6vjUTLs fEAqSDkwDBJ4Q41jm9Y 6PDNmBQGfZAP1gWY9dQ 1hbGlnbjogbGVmdDsgd gTszSntMPfnPZivE454 IHRvcDsnPlBheWVyOjw vdGQ+HS78rq80Q9OaQs ixIye9CRJpUKV9lUB6r C2uINHzMAygl5C5bYC4 J2J (more content not included)... [facility] Outside Recordson 10-08-2024 Outside Records [id number] 49#1.00[facility] Provider Orderson 10-02-2024 Provider Orders [id number] [facility] Outside Records [id number] 4#1.00[facility] Physical Therapy Noteon Physical Therapy Note [id number] 54#1.00[facility] Coding Summaryon 08-14-2024 Coding Summary HTMLBase 64 CjhbnuuuJTu8yNw+PGh lYWQ+SA7FQBOxP04kbD DxcP9rM8GIBUuIQpebT IOQPDtPXfMcyaIcLN9f aXNjZXJu IC8+XK0aXRGjOwnuwPS zd0H2dOD2D98wet9xMM igwXO0UJLnNzGuonmhn 0tviYu3NFekYqfkBlKc XFUjeP74ILH4bT87Ut1 2xNRpgGJvm1qlhCk6Qh TaZIUfDFO6sJfbROoqy 1ZjOLXwG39klLAot7O2 IGNvbGxhcHNlOyBlbXB 1xT9pGDvujghpt0pbio uvZrx0ha82zGTsy5G1y AS2J7HvfqO6VLMhjADu IuzoyBQBhO0jvxvwo7q zhgdhYiIeBZIcSGi4DA f0CKYiaWwxJyIyHA06O MO8WVQazcBtU0ClLUPw aNnaYmY7o0U7Vw6DV0B ONuhjH1HLXATUEPkhrE Q+PO34sm47J2VoNfczF mt6XXOtQXZ1kSM1lQ8g QGVtSXlaw5I1hPK8G8A gudUnxw9zj2ccPCWrLB ddW71ebKUxi3C4IWNbb XY4HQFssJucJdJbfC21 Oyc+ZKJgwMvjd2XpNvs vh5usu7dtlRe4NlfnFQ OuprJgfMozYXT3e2JgS u1sEEDneNN6xXI8jF3r HhZwErW5BCwaQ997MaQ yvPWqVcdlX73pA5RwgM A+QJVeMny2GORzsBwpC B6uP1XtNFJhvjlizJHr nUqxCD1dPUMuguzxLHX phB1cKBJsT9i5WcZtRn C8OUupV1GoGPGtbuyqK o10tA0jThRhTmN1DNci W3PkadN2NGWsjXUfOPh nYVH9O59zq2W5JSQkMZ AdWTY5eTT9uP4arJjrx jogbGVmdDsgdmVydGlj KCgaTReyG771JINtfXo nPkNvZGluZyBEYXRlOi AgMDIvMjYvMjAyNTwvd GQ+LDErSPU7pLjtKYAj hVKwECzkFc6kqDvvgJj aHF6dEIXjbhfeSZBwkJ 3nSKSumDOzeCvzVW4iN NDhhtekv355MzOyFIO1 LRPgjBQkT6XimO4dRpH fFQKyPOLjW1OfsFWyWN rmQ502GVksQvD3KCVfw iJxV2PxFNBhrVeyTjL8 v9S0Uo9Ly6YqnlimG7S wdLBfYaEpBpslCPq4Y8 RkPjwvdHI+LO17APSoC L93YWy6TSD4eIimECwe YAGgS2JzeV4pZdFfNGB kZGRkOyc+PHRhYmxlIH dpZHRoPScxMDAlJyBzd RhsMH3kRh9mHBXlDSLj iKfbyNFnVkOdz6wmKKO wQAmyJI6qsPbkZ5NzqT G2BTCco5t0Qh38D22tA 3JvdXA+OHQmlWM2wAB7 qD6eCcKrCsS2NUnvQ27 1EoNsjTOfEuoar9sul0 impUu9GuE8IKApoiWqg ApnFDJ0q6PsDn67M51c IHdpZHRoPSIxNSUiIHZ ukRzayo6vfP5uSo4+PG LuxXQ1wWS3jB3vEbVrU eI7GXsbV783MrLscNFd Kbeiv2ceg1vdhNp9KoV uQUNstjCmiNkpQDE4p2 OnNc07Y8XdlNuga7QbU qv8oa42jDLka4J7mBE1 E5JvKCAcojjrsJWvxDj qGH9uMNHdgoqoBFMzsP 3eZMQmS5e5CpFhYyU1A YogK2PiqkO9RFXjyEMc WHZplKCPrU4awhlfo1c jbaamTcMaGVXtVRp7PD z0ZPYzbKmjOmAbEJT5Y dQ7CXI3wBJgaP9xlLsf mdsuvQ1wRhy+XSS9lEH vrYGLJI0fAotlmTD+PH LdZGD0yOcrCPfkTNCjx X8wXTSbA6e3KmZlJmZ6 NFrfS5FcbtF0OPYnyTY mVIEmlVLMkG5mmxiho3 bbbjoeQyPeDKYbKKs6M Oc9VSVflDfpFuNkHKI8 YiO2OBX6oBOluB9uqPn azxzdpA0tVey+QmlydG oxMMM5RCy3F9LuHxv5H LSdnEsoXJ5mzHTzCWft Zz5dqMqqlXajRY6fRON gipqft664ZvUuq7ijGY BymQHiLBudVUG7I76mg 4H3DWIxQFIrKKK4gME6 tS2krNhngnywfVFanYu gdmVydGljYWwtYWxpZ2 50QYZtaTvwNlYqVWk8O 8BgQnc2DXGrdQmrDG4q eQJpDFibEp1eoBbonKp jQJ8tWHUbadsvb643Cd Irh5axNPAzwZCnPCoeO JD7Y21ye9Y9PLXxXQVw HYX8dSF0wJ5bfRtblca gbGVmdDsgdmVydGljYW vlITboF248XKZhtXfwX yNeoCf9X4UiCbu2SEBx fQddMM5xlBCiDWowIx7 gmUauwKkpLL3kTJMhpd gbb269EyVrr5wpZXCso UQnCVktJKJ1Y01ju4Q6 IEPlVTKaSKE3nRR4nK3 hbGlnbjogbGVmdDsgdm UicDvvXEefAYlrY664Q HRvcDsnPlBhdGllbnQg BRwqBHy8M6GlPmltgEV +KJ43QAYcDX42eUJqfP Coj0dnxMa1OoQgMGKlV QJ6eUfkXPuue8XjKVUi Y85fzJGls8U7ISJgkFd glARlOeBteSM5gJ1bQD araffkg8rsbewxNeoga 7fllg86eJ75V13lREmk ZHRoPSIzMCUiIHZhbGl ymc6aqZ1hRl9+PGNvbC X8bKZ0pL7nVGRqBoI3P BmgS063RpPftMHuBkmq k1xix1ezyIq5KnD1KQL dwrIumBkoSYG5s0WcEq 76M12hGKqtJXZzVJXlL ZAaKSPcsWkvme4iiV0p Ii8+BJCvmKI0gDN9iB6 qYfXpLfN1PPmfE012Rx CfvEXxCezlA19iW3Dtl XA+XVRsFbi0YHKpuWel TW6npARePNfvWt1uZIH 1RfZgGtSuBOpcM7JwRK JvfjfaiwiseKI7EWJmQ GKouD09Ju0bhOuwIJAf rDSTfW3dijbix2gpzec zAtBoREIoMOj7MAv2NL WtoEcoFzXdSRG1RzZ6S UL3sMJgcW8zyAsdjlaq qO3aT9AyPAWacyggNf6 9nT3qApCtXaV6NLytSt c+Y6ZLJZVJSFLUEUlcT BNYUUUHVP29MO68cNWj b6V2cZU7Z1GoXVXnetz jhlkbvCL8RKEtKHPvaB 48bVEiVBnmOb9hd2Y5a 701CFFzQUZdfY64Sb1o eVziZZNutPDFhC6vaom du9heiqanAqYjPARsDK u2IZy1HOWkePwbNsSbB YK4JbH2YTB6uJTqlP9i mKduzxspnC6lHqp+MDE jHPWpCQb8ZqkalJC+PH FpPFB6oQejIUhuCZMvi O0jAEEyE0p8WkJaOnB7 AXsxU2DcQFEpyfrbHy4 5wN5yRzZhCqL9TYliT3 VoytG7KGHexZXoVBfkO EL9Q84jw1H8NCEaDRZe RCR6cFS9vA3idDtwfeo gbGVmdDsgdmVydGljYW hnMQbwP175QSZgoVlxG yzgUSuySUEyUM28YR64 aAFqq4L9cRV3R0RyVVT qqartumovtMM9DTOkRO YhrM60bQBaVVrkEp4mn 2P0v321NJHhCYEsvX19 Gi8kbQgaBQZooULKaO7 irfbkb7cmbdtwWhOzNZ UtZRu3NFe7SHKphEotJ kUtZDT6AmX1VVS3eBXq bU7htAdasopgqL3lSan +TUFMRTwvdGQ+PHRkIH B2eMpaOPifFJWyiS5vU XEwL4i1WgEuCrA5BLkn C7LiLJBjnlfbXi96aI3 uNiMcFdI8USkpE8Cimm Y4ECUpxVShPDzlQFY8O 20ms4Z7CSRfHUMmFDH3 kNM4fO6wuGjbuanvzMJ mdDsgdmVydGljYWwtYW vqC693DEPsgYkwIu1CX R96OO39U1TrFsjfaVXk bGU+PHRhYmxlIHdpZHR oPScxMDAlJyBzdHlsZT 6iWy0aMBGsXCFpuLqnv KRgBoVng8ttDTRaGXmt QL7lbOtdL7AysBY1NQE kj1i2Ny08E99zW9UfwC A+ELAjrOM5bGV8uJ5eT fLbYjH8RCdeG986BvSq tPTrIcutn2skp5lhlBj 9IjMwJSIgdmFsaWduPS E3y4EmQy41F67rWCuvP HRoPSIyMCUiIHZhbGln op5hgN9vUr9+PGNvbCB 2qKH6yM1lQeKzAkW9PO ngQ758LgFsmPEyXoreR 49kO4ZcfDD+PHRyPjx0 EUHodCwhFK0moMQvQCw hNq7wNCW7CaRbPaEeWH cdT1DjDAOdsgxvprpje XK1MZJfFTMqgL87Qv8x fZmgVx0eHQHoJLI5PWH daBLoK8LjdS8kAxGtSX PmDILeL9FpzPPpKIzkN 920QWgjYkH1JCFuybJy A8CyXMKkvMpaCwO7d9P 1Fz3HmRhjjCYiIT4pGl SuWUz1Y6RqVuc8STTzd EqmGP2gkUKbQHnbRn7w zNpjmIrxWH8pUDDdzpc wr047XdOtq4aiGLRtiF QqQEorTHX5T25ye4F7S BYzPKQiSBH1iWD1uZ0z bGlnbjogbGVmdDsgdmV ezWahZGdlHNmcG218LU EnzPztKzKWNoz3M1VgL fc3BCAqiHoqJZ5cyRDa CMxbPm6yyNechMrjEF7 tISJiqlfon566XeMxe8 xtXZZpvKAgCOlzOLT4Z 87ro7G5EYBlVAShRNX7 rWB0uJ6weOlaljbvmZD mdDsgdmVydGljYWwtYW qdG725XYOpoRypAg1RJ yf1G0QrQfs9MWNmvZnw EF6zqCJcSIghVs6lkUr gpUwdPJ1aDOTmyfqrv3 07QdXiv8czABRlvJDtX JwrHAJ0C97wl9A7YKCg AYZeDQD3oRT5mG0ptKd nbjogbGVmdDsgdmVydG yqXCjnKAonZ456MVQsk DsnPlBheWVyOjwvdGQ+ TE09ca39P0HsFdzoExp 8GUBbWOT7vAS0vO2pIO CcYSuji8G5mJF7L9Mtu hGmzv8re0qgZXPlTQgk Y29 (more content not included)... Normal [facility] Office/Clinic Noteon 025 Office/Clinic Note Patient: [...] certain foods. Review of Systems Constitutional: Negative. Ear/Nose/Mouth/Thro at: Negative. Respiratory: Negative. Cardiovascular: Negative. Gastrointestinal: Negative. [...] 105.050 kg Body Mass Index 32.79 kg/m2 [place] Body Weight Calculated 74.087 kg BSA Measured 2.29 m2 General: Alert and oriented, No acute distress. Neck: No carotid bruit, No jugular venous distention, No lymphadenopathy, No thyromegaly. Respiratory: Lungs are clear to auscultation, Respirations are non-labored, Breath sounds are equal. Cardiovascular: Normal rate, Regular rhythm, No murmur, Good pulses equal in all extremities. Impression and Plan Diagnosis Diabetes ([id number] E11.9). Plan: Discussed with patient would like him to take the 20 units in the morning and 15 in afternoon. If his blood sugars are dropping low would cut back on the 15 in the evening. He does wear co (more content not included)... [facility] Outside Recordson 06-25-2024 Outside Records [id number] [facility] Orders Onlyon 06-03-2024 Orders Only [id number] Richard Boykin 1940 M Date Provider Department Center 06/03/2024 FERMIN RAMIREZ Family History Problem Relation Age of Onset Stroke Mother Valvular heart disease Father Family Status - Relation Status Age at Mother Father Normal [facility] Coding Summaryon 05-30-2024 Coding Summary HTMLBase 64 DbfjnolxIYk6aAd+PGh lYWQ+AA9HVQLtP45rwH YjlD9vM2XIBPbHFtpxF XJFMWxNFbHlwpJfHI8t aXNjZXJu IC8+KS8pAFWmTabzqKB ju2Y2zUL5J99nmb1eYL nkpNF7BXWwYtSpvrzig 6vjfAa1DNldMnpiOwFv JBYeeI24WCP7xD37Wk7 9mNFqvOUgu3zwjVh3Re FoMHAuYRT9tPahGEtiu 5XaSUMbP06vcXSoi7N5 IGNvbGxhcHNlOyBlbXB 1sT7wDIjwbtqfu2cvob foTpx0ll10kJZtu8T7u ZQ8B8XfhaS5RWNaaJOs BigriDJUuK3kymwpd1p ojsgsPmXlIUJkPHm5LO e0KGNjhGquTaRyYW38D JL2KPFiphLgE4MlEPVg kSxzHeT0h8D0Cr7HX0D QVjjyF2NDKAKKCMwdyN Q+BF40lw22R8DzYiyvZ ih5IFYbHVB0vMO3cZ3v DCPbKGcxk5H5aIJ2Y8C gvzPoaq0bm0uiCFDzNY fhL58azEKth8U1DHAhj ET3RVFmqMuxZcXvxN38 Oyc+HODdkTxfb7GrRay dn4aqj6udlYa2ZeyaHQ ZvwxFpoDqjAFU6p1VpC j7kUUFuyVC6gUX9eK5o SzNvOiB0AHunA888YbD ldMZlEgabQ31gF7PbrD A+SOAtRdm3ZBVgrHubY L9mQ9UsWIHpvepmkZLx sNlrCZ3eYKOjmpzbSXM irL6zDKElF4x0RzXfVt V6UQwxI8UuBOLgbcjeP j24nV2bIrXuWdG7XZph R3FlhwQ4VXBtjINeJQk hJOM9E24dk8M7JBIqDI TdWEL8pAR2kX8cgAece jogbGVmdDsgdmVydGlj LEisZRufG265BYYcvEd nPkNvZGluZyBEYXRlOi AgMTIvMTIvMjAyNDwvd GQ+NWWqNOH8yAgqMUEd jKXyJYquPw2hlYrdcDd jCW3pPWMarowbAHLezY 5zULLnbUJczOeoXI0dJ FDozcnlp382VcDyOTZ1 KJNfvWGlU1MtlA6cTcX fDFHmCKLtY4HgkZIrJK wzT796AHvxQxQ7YVPix iSgK1UlMFOosGolZpA8 c6Q3Ks9Qg6EtsisyR2X ycWYoHlIjEtktPDr0J8 RkPjwvdHI+KR98JHJlX H84DYt8NFK8eYstDQnl FYBiK5DyzB2kPpRiNHM kZGRkOyc+PHRhYmxlIH dpZHRoPScxMDAlJyBzd FstIG5fJu3zKHDxROSl mXtpjCVlVgBkf9elDMY zBRqkGS0mbQiiO8HtaP R7KDRuz6c2Oe62D50zA 3JvdXA+NMInxAC6pQJ1 eM5mMhMaUdZ6PDdiY69 3GgYyeHMiCfokp6sev7 ihgRc4BoA2YUPfibUxa JxzMZS6r1FpJm80D64s IHdpZHRoPSIxNSUiIHZ laSctyd5utQ2bBc3+PG SkrZZ4xOO4iJ4eSwWzQ zN4QQbtJ645McZamUTe Tunom3hdf8ocnWy8FdJ pGCAwleWsgAfkMQU5p6 VtMw61G3OhgPtak6NkT hu8av23hGItl1Z7uHB5 P3AgEMJnxoxlpBBxoXy xIU6lLVDxklliDPOkbD 8iMMMaI4e3GfVqFhB6H HzvI7IpwhP2LHAqaKCc UDVibWFBeI4ufemqg5w yrbzgSoYcHIMnDIx3PV c9AXSvwPqlNdSiKGP6L mY0XIG9eNIkaR6uxUdd ogaypW7bSci+EEO9xDM rpMZYRA7iQjvhvEE+PH UvGRJ2rIydFUwqLEEle P9wNWInM2l4JcZvIzH6 TJbyG3OjdjJ2MQDotCL wUYLhpVWXdR5lexxdv2 rnazmhNnBxYHOpOOo8B Em5ABRxtYriQoVgBLY6 KhP7EXG4zWMtaA7ehPm vksrztJ7dHxd+QmlydG qyRYC9STj1S9QxEci4X CEhgWxbUE9qpVZuCJzp Br9rrZaiyYhxFR2mULE nohmna709JoSid1gqCH EgaAFnNTuhZKE4A94kc 9Y8AHPaAVQwTJH5tHW5 hE7ibRrwdezshGQukPf gdmVydGljYWwtYWxpZ2 53PHEzsSxmVzAuEEc1U 3MgTzd7ICPwdRbdYI8u qKCdDAwtCh6kgFjdwVe cKY5hCQZdexhbk897Ge Weg2gmLIUckJCdUVvcF UO8F98ms3E2KJAgYWSa KCN9jUQ1qA0wtQeutvq gbGVmdDsgdmVydGljYW poBXjnX282YJEmeJpsF bGtoZd8E1JzBmu1JDKo jTgaFF9vsJToCCgzNf1 twYlydCspBS9sTHOjpk rgc230QoMoz3ogDOMbe TIpVJxiFUP0M97dy7B2 LDAzOOOiSDK0xLC6tL6 hbGlnbjogbGVmdDsgdm JfkVntUIrgUNxmI998B HRvcDsnPlBhdGllbnQg HXcyUQl6F6HpTxflwMW +MO41QIJtIX44qCNnkK Naz5becIb3PuVnRIBcY DL2bGzqBTosw2AoZCKs Y29mmZTjm2G1QBWxaHu nnHQdRaGivMW1hR7zHR tesaxss3tlfnmfTfbir 0edmw29zH77B35nNIxg ZHRoPSIzMCUiIHZhbGl nmd6xdM8vAu4+PGNvbC J1yJR2lO8rFUEnFeW7N PitL028XwQbmHHhXfqe c4cpy3gnbUd0JnD0ZVN sirCleEesZSC2h4FrCs 55N16dARwoGKPtTUHxF YQuSZQroLxknh1omI2z Ii8+ZEVqzNF8wLY6nJ8 cLaYyChG6BKgiQ495Pa ZgmSAqFbpgY80oG8Rsj XA+OSTiQsb6GCOxpKpm AS1urSKcYGnuOt9sHAD 8ZjTqUwZdVAlsM3NnFO WbjvjnmaaexMX6MJEnY YOoqP99Zr3fnJdfEFSc aKYHmF3ygjisn0ihlxf cGxAlYMUcUZc2ARt0MF FgzTheJyCrEHU5QwX7M SB0uQRyvN8nnSxsbjmj fZ3oT0IuOSCtuhrfLm4 0gC5wTsTvPyB0ITqaAc c+V7BTEUCGJEEBRWxzK GFMVUETMC45FI60rAAg y4D6wUT2P5CzAYJmsio wfxglfFE5AGBvDRGklO 16vTDlPDmpOm0ow6W4j 113FGNgFYQqtJ63Bd0o tHdkSWVrjAPOuO2lbtv oe1kgjsxnBpRqHPZaRK f5JJc0YBEweXcoKaRjP UX2YvS1MZE8vNApuD7q vYmdvjbegV4xJgq+MDE yIOVkQEf0NjyfuIW+PH MfITK6cTzzBXefHYGgi P9rWBGoC8t6BdUhFcO4 EGimX8BtTKTojzmhLs5 4cR3xUwTqPeB2IUaoO8 FseoC5HMRfcVGtGGttF OU5C33ji4V2CWXeBYTg QHF6wLM3vV0biPajdag gbGVmdDsgdmVydGljYW afGQgdD180OEOqpIewN uvlHYryKNOqQL22ZB16 xNKne2L1bMT2Q3YkDHS wdxvgqxjerBQ6KIEmMI BrjX19uCJdZItvCw2mw 8U6x945MXYqEBVhbI36 Ad8eoJfePCIozVMHyT1 rtgtnm5swhnpiHcOnGS FfPUl9PQt9DGHyjAhnY kOcZRG7VrA3LAB6zGHe eA2rtLvmvfjhvL6tIal +TUFMRTwvdGQ+PHRkIH D9sCtsLHnjCWQrbA2wD LKvJ3u0BlSmGeN7ZVdu A8CaAWPjrgpcOx59yL9 xUoEmBiZ9HAoiL4Fulw T7RYHkrDKrWHmgRMV1K 40us2D6DAGdYDRoCEK7 rHV6rW2ywGnqupvzcGE mdDsgdmVydGljYWwtYW crE247RNAllScjVkDaE 3VycmluZyBPdXRwYXRp RS55NK79PO68F9GzLbi vdGFibGU+PHRhYmxlIH dpZHRoPScxMDAlJyBzd QalDP5nUs4qWXGgLVNj pIhjnDPeStFfh4nvSGM mYUnfGU1wnKnuN7AieR U9LMUha2u4Bv73J11fG 3JvdXA+QTRwyLI9uWA0 jF7dMoXyLaY2YHzyO05 4NgUvbSUwEires9wha8 yhdMo6JcOqKFArjvJux WwsATP5y1QmSy71L20g IHdpZHRoPSIyMCUiIHZ jeLxaxp9mkK6lJp0+PG SnoUO5qOR7jC3oXnWuB fX9UDerA262CzQnhAEb EjsgG14hD8TwfTX+PHR pNil2WNUgzEjxSO2wmF YdOBzoVr8fHZF3BhLrO iOeEBzyA4UhBWZadcux vjgolCP7UWIjNBAvbN0 6Vg3siCsuTd2xWXPhRL B4UZCciUVsR8PoqK5yI nYqLVZcTKVgD6XhaQPv MDhxT969NXmpDhS8QBA qxnIaJ5KpSGMdgXeaQj I1i4Q7Rq4JxWkvtGPtI X9vJdOyRMy2A1WyBsx9 BNRveIkqZF1hxVZhGZq zAm0eoDhmiKetXG9cWS Qcfgvqp872BpSsq8tbF LBtaTIyDTarJDC7Y30h q9H6WGDgJUNfKTB6tPV 0rF3ryKjzsatoyFKexG sgdmVydGljYWwtYWxpZ 112JKXbjNuxQqAXTgi9 Q0YwTsz0KREaqLvrQO4 rcBEsQFjvPq9skOfswJ pgKX2sCMNtavssu560T zVyc9yuDBYfbMCfMLgv JMK2N89bc0C0ADDwPHP iQZA4ySG6rO5rkDyfcp ogbGVmdDsgdmVydGljY BweLMpxC279LWIroQiw Np1DPxx9K5YyXhg7ZNB qkQtaHW2knXOgOKtwGu 9wwAqxtRmxES3fQYQph zavt950ZzCwj0cxRJLn fXFeACdaVKI7N68cx8F 8DHQtSXZvBGV5fXQ2kM 1hbGlnbjogbGVmdDsgd pRmlXeuAGrnFEvsV298 IHRvcDsnPlBheWVyOjw vdGQ+BF68ur77P3FiUm ajJji8XPVxWWZ2tQX3j N1dCTOuBOlhi3D3xCC2 J2J (more content not included)... [facility] Coding Summaryon 05-01-2024 Coding Summary HTMLBase 64 TknttayeGFq7oSq+PGh lYWQ+UC7GCUYqG81beJ HnaG5eW0VVLQxJCpkdK AJFSXiKYwNwjyNgPY8h aXNjZXJu IC8+MR3aLVQbBjtsqBH uu2G6jXM5Z91mfk4fXT hhdCT6FXQrMiQvranhe 6iizNc7LFwwCzbtOiBn UOWsiW50THV5qI94Xw8 9jCDcjPPpj3kyaMb3Np SuPFFwPNH5wNfvHLhoh 0BdFMOgW75agHMmm8M5 IGNvbGxhcHNlOyBlbXB 6jO4lBXcckwboa8ytbb yqHne8jc99nPDiz7G5b ZP6D3NziuY8WPEcfLCt JtkwvLYTwT0vudzmx7c zldahPfWdKZQfMOl1FO x0PVZzoPqvOvFaCO80S HI0JWHmosEeD0CmQIUb gHklQzX6t5U3Wn1WK8W XGvpsY4JNZOFPLPmydK Q+LQ87nw82Z1NnKgwfA vj6AHDvXPE9oVN6oH7r CFSpNHmpi4X7pLJ8K0M sldWutv6sw8puSUAeRZ ewF15anYNkl3P6ZNYrm SL5QZVyaNihHwIjmN91 Oyc+INEplYakd2BiChw ju1qnr3kraJj5KmbaZS VnvoBpkXtkBMZ9d4XmL z9iXWEfvSW9rYV3uB4a WyPnPhW5MDjeJ825KpS kpVTlXitxT31wZ2MpuR A+CGMyEqq0PYSroClcC J0fR9WhGGSwsdepvMLz rLrlDX0jZVQhttnbSTY meA1mIAHpC4w7MoInPl Q3IVlzO0AvPIBbanloA c81wE8dQyUlUxI7VEqq B4IqgaC4VDRemCIdAAv qYYC4E39gc1O5PMUjOF QgBLC7nLJ4qR0xsWlgz jogbGVmdDsgdmVydGlj CAonXAeqC565RZAloVm nPkNvZGluZyBEYXRlOi AgMTEvMTMvMjAyNDwvd GQ+BPKvKCU8wPjmRZHo nXVdAKclQp9pdBnlzJc sBS1bPIRzvyocWYSyfY 0oGYBklPXhoUxqLE4oT SOsovgaa592TuFuKAF9 ODJbgEBcQ7GexQ9ySkK bCKHtJEJzF4RpiWDbPP woM838PGukIeT1FEKju fBhR3JuTIYxeWznQvO0 o9L2Wu4Ux7SlfmsdU4N tiECmKcKmVppzLOw7B8 RkPjwvdHI+NS03WQMrK L37APl4ZLM1yKctRXzo DLAhB4VtaJ6fCeVyZJK kZGRkOyc+PHRhYmxlIH dpZHRoPScxMDAlJyBzd DprSZ5pAq2bLJRwGFGl nXdrkYDwRkMcg3lfIOJ yIYpzBR6maBojY1IwyG W6NVCfc0o5Vs97G35yH 3JvdXA+NBSrmOB3xVN3 rV1nWdZgVvG0HBwqX58 2EuJhzNLxOpccb4fkn7 rxcIh6UsZ8RFCzzbPvn XivLJZ0w6CxUp98V65n IHdpZHRoPSIxNSUiIHZ apKjzkl7rxG5yUb2+PG PtkSJ6oUY3mI4zNlSjU tY8FTnqD723GoPplPOv Eayxw9lyy1lvwMe3YzY nXKRrscQywZtmGBS5m8 HyWc23X9VowNevw4OxD kb9mp01zKKuw3K5vDU9 S2EcWZNhbxxzyIBkbRm sLU1cQYSexlbjATOhdC 3zGDMfE6r0DtNwZaX0X KthU0BycaK7TKErmIZh AJUwnQOTfE7csreec6k dnoatOkSoHRKoQDe7YL k1LUCcpDzoRrVdJTA7W nO7GCA4hOKjxR1juPyq huhcaJ5mEwt+JYM3mOY nmEZFXJ5gYwcykNU+PH TzSCG5rLehPMzmWLWjb R0wPOWwY3s5UmIkBuS8 WDyaD9YrsbT5SFLshYM qWDEgcPKGgA7meulpq0 tjpwfrKkWbMKFbYYo6N Js1OSQttBjyLpXeDFG1 EhH7QJP3kVLfyR0ftPb pkqcfcB9eDfx+QmlydG yyYYC9IVs3C5YaMtz4C REhvMztEY2fzWWbCWxs Xl0wwSxoiIygXZ3tOHD oaodyz513AqJxm5liTZ TozNRsINodZVY1G45cm 8O6XTRbZOBtGZW4jLS7 vK1szRkloojehMHvmGo gdmVydGljYWwtYWxpZ2 56IAGbyFnyHmKvIYt6B 1NtMcw5HWVarZrzZZ0f zRQsWHoaCe2paMrbsZf eEF4hAEEyealyc235Rf Cfb5hzNOCucZJqUDsuW IO9E50tz2P1OMKhCRIa WLY1kGI7wL5wqKxwypq gbGVmdDsgdmVydGljYW gmPZoqH297MPLwjIixH bNicMo7W8BcDfu5KKIh wAeaXH4lsDBpXIybCt3 ahSpwsGgrWZ9uTAIgox git971FzJek4ezBROzt HZpKXwtEZG9D36xd0Z9 JGKkUQPuCOV9tDR1gC5 hbGlnbjogbGVmdDsgdm WxzPezETooWEqvH620U HRvcDsnPlBhdGllbnQg VJahSIy4S8CoUztcdQF +PP39DHGyNH28iKVkcI Exq2mnrZg4UtRaBCNtI BS6cEjpMXvnt4PlLWSd C83diBAyc7D5EMUhsJl wwSYtVkPqxLA6qB1kGN dfbbhgw5bvafziEwjqr 2dzix99aF86N35wXWmf ZHRoPSIzMCUiIHZhbGl zhg3wxZ2wVc3+PGNvbC M2uHF3jU3xQCMsUfJ9W UbuP290RhOvfYVaQlyq t3vpm0neyZo1SnJ5HXO uxiGkrYjqPGD6x0DmFo 95A94yASbhRQRyBOCyV OJmMGEtvYmmol0koX5n Ii8+LLTbaYI8rPF3aR7 iQlWyPzP2DMbtD884Vu VssCFjTlghD11uU4Sij XA+MJBqCjg9BBHxpYda DG3jlMKoCUgjCh4mMSP 3KdOmMjMlSUdbI5FtIH NrpbrdejtvtND9JHPeU SDflP42Oq9ugTapMKRo dAKPyJ7pfbhlo5ijnav zYcLgIWHyXLd6XHc0DZ QrmCpqVbPxGTM5OpG0O CU2mZUayX2xyMhsrjqu jY8yD0AdBTLwehemDj8 6lZ5gHoEyIvL9PUjeBt c+K7JRAYYOAMZNEWofI KZGERDGON68EL24iXSe x5C8wHQ3Q8SaJVSzycp plbodyAV2NJQoBKAstJ 74rSZrAJhnFm3ed9M6k 405JVOjJFAevJ20Mi5n bGdzOQYvaPCBvV3gals jg6bhzlreJkHeILLoCA e2NUw3HGUiyMetVeTlH WH7NtI7MCR3rQXpyB7j bAqfsbxdxL8yElp+MDE xJXKmFRo7VmsmwOR+PH VfCUF3nLygDTrnHQHpo C9hDYErH9y6LaFuXeU9 WTnlP4GuGQVbruckFe5 2aE1hNnDdDcT2YLrnE6 YxojI4QEAbhGOiHQmrM GC5I29pv1T7FDPoFNUl LOR6rPH2mD6nrUnmmzn gbGVmdDsgdmVydGljYW ugGPgbI325DTJxzOhwU xsuVYxdWZDeYO12IP40 jOIzi4B1pGL4X3XxEML oxorvwsijgLD0ARLoXG YixD88yOZmZQgpXy2hi 8D3d535QXGcQMLtqM70 Mo5frTikWWAncRZAiS4 sswste0hktbeqQyLrDL PtOIn0MQd1RVLewSthC cVqACZ3YuB0FCA4zOLa oG0cgTrkeitdaN6qLgo +TUFMRTwvdGQ+PHRkIH D7vNlpEOhyWDRsiD8xE GNvI0b7XjOhYtA0EXkw U4ZsXGCfaekpZj38hQ9 zTiFhUtB0EKkgR4Sxzm I8XORttZHzLCxqVZE0N 94rj7E2KYIrLNPnIKX1 bOO6bO9yjFgqkpvoqIM mdDsgdmVydGljYWwtYW ldV221HWXavYqzQc4DZ J90VL93C3BqWlnsbFYj bGU+PHRhYmxlIHdpZHR oPScxMDAlJyBzdHlsZT 5pCh5kVMAaHHBikQmzw IYaQyVzo3frQIVdWPck IP1vjPmoD2DolBL3OVN dx8j3Oe71R88oV3XkkL A+GSPghOZ6zBD5wT6pV iSuPaT8DApyF128BoUg eXFvSftrf5dfi3uyaLb 9IjMwJSIgdmFsaWduPS P2j5QeDg36M85dRVgwS HRoPSIyMCUiIHZhbGln cd2fdH1jXw7+PGNvbCB 3iEV4iA1iFvGbYtV9YL qnS934KhYvyBSrWuunD 52lF2FfvNL+PHRyPjx0 GRTudSxdEJ9ngKBfPCw vXs0bEUG9UxSgVpVnWP sjO7BwZHFntzcpeotbw XX6UWLoNTHedQ42Qt0o fBmzOq5xSSUjGHI4VRB ngMIuG7GzvP5oSpCrAY TnVNIuC8KrxCSdWLvhV 101TSjeOvJ3SZVsbmRm N6ApZTVnrBnqDfH3z8V 9Ss3MoDmmaHQjFF6hCp XgUMy3N6KhYdk5OHHna EckLF5jbGVkDVkkWt7v lWyhmJxyAU7xTOYrxop xd086ZnMrk2buHQBmnA FqOCapNES0F12td6Q2X AWmCMRhGTU3gEW9wZ3i bGlnbjogbGVmdDsgdmV hhTdkJNayCKkoF147SO IpgPpuHzOHPjn6Y8KzW rg4JJGmiUreFM7zlKMc JNxjWm1cnTcrjPkcYJ3 eIXEwknaho075BnXip9 hlOBIbbIXnGNnbPYZ4F 35bk0A5TYWoSHMeEDD9 vPL4wH8ihLyeombbuCS mdDsgdmVydGljYWwtYW llN981SSEtnXyjSi9EC qp0W9EnXjz9OSLqnSni SG9xyIXcZUtuZw6nkZp dzKzgDB9qIKZvoildo2 51PgHjc2jfCGQjsBMbK ZsyHHH4A85ep3Z7RMWc XTZqCMV3zDO7dJ1jyIh nbjogbGVmdDsgdmVydG zyETxxAAaxB105KTQel DsnPlBheWVyOjwvdGQ+ GL79ty17V3PwBvyaZff 7QKYfJWV7kEN7oY2dTX CmJGshl4C9mWV1U5Niq aAmci3ww3heTHXrJLav Y29 (more content not included)... Normal [facility] Office/Clinic Noteon 04-18-2 024 Office/Clinic Note [...] He had done blood work while in [place]. Reviewing his continuous glucose monitoring system for the last 3 months was done. Averaging A1c is about 8.2. He is also seeing his reamer hand who increased his ropinirole 2mg to 2 [...] 106.230 kg Body Mass Index 33.15 kg/m2 [place] Body Weight Calculated 74.087 kg BSA Measured 2.3 m2 Impression and Plan Diagnosis Type 2 diabetes mellitus (VPP41-QJ E11.9). Plan: Will increase his Toujeo to 20 units in the morning continue at 15 in the evening. Continue watching his diet. Continue with continuous glucose monitoring system.. Orders Orders Evaluation and Management: 12816 Office visit - established pt, Level 3 (Order): 04/18/2024 10:01 EDT, Qty: 1, Type 2 diabetes mellitus - Restless leg syndrome - Acquired hypothyroidism - Hyperlipidemia. Diagnosis Acquired hypothyroidism (HWI92-FF E03.9). Course: Stable. Patient is not going to be going back to [place] we will plan in July getting blood work checking kidney function liver function cholesterol and thyroid.. Diagnosis Hyperlipidemia (FZP93-TS E78.5). Course: Continue on statin. Will do blood work in July.. Diagnosis Restless leg syndrome (ATG06-UV G25.81). Course: Chart was updated with the change from his reamer hand on his (more content not included)... [facility] Coding Summaryon 04-15-2024 Coding Summary HTMLBase 64 QhtdfamxRUt3xDc+PGh lYWQ+DY3QKZSiU00ioE RxqC9mD7MKIUeFWncuH ZDUQTlBIiVtzfZxCT4b aXNjZXJu IC8+HR4mLCPvVhxmaFG rb3X1rOW7X94vjx3qNI ogvHX3VREuLwOfagpsr 7eqyZa3EHqcIrmpJcOr PBJiiD10HXN7uA70Bd1 6nATqjJYxz7fywVq6Vz LjSMSqZXV2eGjsXWnlz 2PnIMLmW94gqPAnq8R3 IGNvbGxhcHNlOyBlbXB 7aE8eKGyyijyib5thvo hbCvm5eo68zZBtf5X9f FB2P1SbssN1PEVvdLBg BmtwoUMHjP7xxmtnc7g dknpjZpIwQYMqBSc5VT c8HCVjtVcjPrDzPE97W BW0FNJhxtBfL1YgYCCm uBfyXtF4j1X9Hs0LB4F BQohzG3WJYIEHXAgvgU Q+EO88ci08T7SbIlfdW rs3YIQhGYB4kWU3iC0x XGJyIGsol3O3yJQ0E6J suqPetg9am3buGOUoFV czL44vgZVzo5P5KDSnz WV2FZDxhKcqZoZciV76 Oyc+CXFtjDdfo3BjJaq nr0icp6bjgYb8GeyuVY LbkgWdrAzuPPP8l7YuN b1cBVUxnXS0rYW8xK4y KoUtSiW4DWkuU009JvN ilHVqMidpC67vJ4JdhS A+SYMoDth0BOPtoOheD D8tL4EzLBSsvjillCYd xSytBH1aMMNdrvvxTCU uxF0iHQJvU7k4ZzVdFe P1CBjxI6GhWRZjnkwhY d29bV6uLkGePrB8KCrw Q8SmuzD8OALdoLKzWEg cVEU3O52kc4I6KFPaDQ PsDLH4aGY0fL1clBtuo jogbGVmdDsgdmVydGlj VWlqALwoH851PONgjVe nPkNvZGluZyBEYXRlOi AgMTAvMjgvMjAyNDwvd GQ+GXJgWMS3nKefQMHi mCNgSTtuZy0peHtiqZn cVY8oAWLwikzwNRFmoI 5uRMUsqKLmdXycVI0gA KOplggvb914JaRbUCA7 HHAqbXNdE7JbjN5tWxD vHCPsZHRqX1QwvEWgNH uwL997RYxyUuK2QKZnc eCdA8IiUOXivRznBxA8 y5H2Xp1Kv6HsmoyvN4B hdAGdXmFiXpckUAk9C9 RkPjwvdHI+WF48XRFlL T58WZi2FTO0nYhjVYyy NTInM2ZlzW5rCiNtFLR kZGRkOyc+PHRhYmxlIH dpZHRoPScxMDAlJyBzd YkeYW7hGu3sYUEpZTPc dBxdiAHvAoJbv3eqXEJ bVTdfTU5jvTxqQ0EoyD C0EUSza5k2Gk38U66eL 3JvdXA+OOTieCP1yPB9 bB5kSwXxUgI6LEmnH14 5XvGsmZAwRyfhw1cbi4 dyyGf5AtO2GSKhqpGzq SefCTL4n2IhTg03S54b IHdpZHRoPSIxNSUiIHZ fxJhzlw0jhO0xCs7+PG DwiAD1aGP0xX5rMkAkZ xB7MJeqK617GzWfbZPy Ikjxp2wzy6vpcBm8HaN vHOFzunKppNemHNY8v7 CwTk00B4VeuZwwf8GkV fg1rt15dMWvw9D1zIG9 J6RlOCTpcbkkgDGoqSv mPE8uJTSqahdfFHDmbV 4uSPIfM1m6MqUcPlE9N MhzT5JahjW8AMLquCYn LXHchDLOgP3vewfgi5q fawnzKtTqGSUeRGo2ML t0UVGwrKmaMdEbWBW6K sP4EOP6aZSkwK4hiAuk ybiwgT5uTqc+RTB4vZC zoWOANJ8cFponnJP+PH EnJYF0uVnxXHekOIQlx C5iPFDqW2i6DoWrCrV0 HAhdS2RgvzR0BJDkqSR aYRJfvUVEcU5oyvnfu7 ckrxobOkHqZZOnPPn9C Rx2XZXwfIymOgQlISE8 UvJ1NBA0sHUtaE8doHf tfsljwR7rWzs+QmlydG ugKPT2YTi9K7YfSwc6W VDvjQykXK5kqZGvLJis Vj6wrUkpoLhiLG6wMFT apqjlr524NgTjs4qxXU AmwRHjBRduWAK1M83hn 6F9ZUYfTVGjWQU7qER8 sN4fwEkjfgjsdWNuqNl gdmVydGljYWwtYWxpZ2 09ANRagXmeLgBhTKf7P 2ZoTsr9RDDncCarMV7f jGOzPUygIu5phVmefQa dOA0kZSCbfrdtr767Mf Slx8oeZGSygGLdKJquL YC1E78aa3R5TJQkIHDm EES0jSZ0cK6esFdiipw gbGVmdDsgdmVydGljYW gqWIziX845BCBjfSniG dEddCm6X5AvDmq3PEYk hPkpIQ4irFWpIDobEc6 uvJxvqGlzJQ8jQIWptd dqw366VfCup9raIUSae VAkQHmeOQX9P37pf8W5 MFVnLRZgMAA4mBV0bK0 hbGlnbjogbGVmdDsgdm HetHklAAsvXWvnA932O HRvcDsnPlBhdGllbnQg JZxhLWy4Y5AvIyuhxGV +BV47BPQqZY45uPDfcV Rcv1jntKl6QbPoQOHgE ZV8rLmtIYxtc1HpQAAr O70evRUql1F3OUEhfKc hoGBmLbXvaKX5eV2eGG vtoheff7vjujppRatuu 9nbja94kE42Q66nYEvb ZHRoPSIzMCUiIHZhbGl ost2zoG2uEd9+PGNvbC Q9tSD7zF9kEKHjDcV8K GatY622QrGmgKJrKrqu m1pmr0bjsEn8LcL4UDK shlRyqEqoVMC4z8QqTc 06G98fMRwaCSPxEYRdC QLwWQBjxGrckw5xpB4u Ii8+MCQjyEX7hET3cN0 gFeZeKyJ4SLsaO255Ed IynGMaOhqcS20qR5Jgj XA+YQOmMjj3TYOxwKck UR7peVErDHfqEi6kUFX 7JrNgOgQbNOlkA7SbOK DennmwpcqmvFP0MRHeF ZGvkX70Sj5gkOotWXTy tUPDnR7sztmyo1qegjn xJtIqXKVvKIu4ENq5LA IabHhqOoPcTDV4NjJ3F DV3wGShpH6lyBymfgux wZ3hZ0SjIXPoyizrGk2 4oM0gZcWzCeI6QIlcWa c+K8OXAVORIHFLSWzvJ OLALYTYTH62AP85lMCz t2D7qNK6I2QtXBZqhwe rbjtfkWT6DUHuUVMzrF 37dNWdZLhuIx3lk5Q4k 828KAKwAFEplK41Pi3h vHicGZZpcCWIdM9vuri pd7ucpjqmKrFmGFDqHU v7YEq3TCGddXffKfOxZ FB1EgT4TQO9dEYwaW2r kCnlpxtlvB6sKul+MDE cRCOiVLz8AdqupLL+PH QbSRG2aTtmXHtdLTSub W2fBKFiB4m8UiQfJuE8 ACvtX4MmYTIvpwoiZt1 8lW2lJcCyTgK0JTquQ4 FcpbI8RQVepVSzMGofL EP4B91zz8R8PSRwTVOt SZE3dES6cG8shEnhqia gbGVmdDsgdmVydGljYW rrVMwsX694XUCbpKotV sszIQarMOBbQH32FT58 hOVbi8S7dNX6D6SzJVP rxtddgeqehYW7QYHnGX JjmB54pUVrMFkkRn1pa 1M2z964EBBxMWDlqY05 Bf6xtNldNHDxoKQDkB5 noebke8rkqqsqPoLpIW XyWMd1QFl8CJAqbWnmZ nBtTWE7PsX2OUG2tMKd iM7qlUoryqelmK8oIao +TUFMRTwvdGQ+PHRkIH S5yCctPBbiQNDuvV5jF VYmM3a8ZkDpGmA7UApg X6KoKKVsaluqPq77yB2 eXiRdIeA6BZfqV8Cnnm R7ZTSgkGOpEIxbVJP5E 92lj1O1JZGoJHZxERD7 pJX5eJ9niDnsxdpvjKH mdDsgdmVydGljYWwtYW gzY166UJUwkOlmEp5QP N52DJ30A8VmXsqafJIa bGU+PHRhYmxlIHdpZHR oPScxMDAlJyBzdHlsZT 9iRa2pJAYsGXLceCwzb YPdXfRrl3fkTNCaBZyf XZ9kpLooW5PgvGA3RZZ cq6d3Sk04V46lY8QnzV A+UIGemSA8cSR5lS0bK iFoIxP0QGavO333QoKg pAToRfjqp1slf6mwuTz 9IjMwJSIgdmFsaWduPS S2d3QoNu59D96yOJquS HRoPSIyMCUiIHZhbGln qv7chP6xPx0+PGNvbCB 3gXA9aL2mEgDmFmH6BI scY933CkXmmBSoRenoP 09gN6HlwYO+PHRyPjx0 CXMjnOavCR0ufCRyACf qVr1xZXQ0AhUbOpOaJM zoC6ZnXGDnddiiomdgd TJ4PIZjXRVntB47Ns2p iMouAa2pNJDfHES8PVJ hiMBmM7AhqJ0eLrIwOW BnPIYlF7LhiWLlSDecF 750IHtoItW5WCDkhwIm L2MoXEJhgNscRoZ4m6L 1Wj9CjSqhgOWsBX4uIi WjIJz3E5RpHnq3ISEcd QksXL6itLBuCLkrIk7x rOouxBycFE1zDQHrxij cp357UgHtl6nuBPNzeJ WsRMblFYJ9X19jb6M7B UTxGCAwOOA1lTP7bT9f bGlnbjogbGVmdDsgdmV byRnqHUcpQIpoQ790PC AfcGnhVmSVSjx4H8AkI bm4WBOnwVyyLI9foVDq ICopJb6moGuwsBghXV2 yDDCixagrh171PsOdq0 glFGMrlLQmLPbhPGG6M 57on3U7RZKyMWYmXOW5 zAF6iA7hlQgnlvvotIQ mdDsgdmVydGljYWwtYW szF651OQRorRlbMs0YZ ma2E1WbRdb4HBSmjTpg GC3nnUVmPSjpLe9mfZr ozGruDU5pLYHcxpnsw6 48JlUgc2zdLXLclHMjV MnyBSQ8B73fa1E5TRIm YPHaVQP3rXN3dS8ogSu nbjogbGVmdDsgdmVydG jsOLhcWYgrA232EUMag DsnPlBheWVyOjwvdGQ+ NX60it06G9VyRegrKnm 3DXKuXDJ0uTQ3yW6iLL WoYQuti5E1wRF8B8Ibr qAcnt5wo0xbFRZiSMdz Y29 (more content not included)... Normal [facility] Outside Recordson 04-05-2024 Outside Records [id number]#[email or web address] [facility] Outside Records [id number]#[email or web address] [facility] Office Visiton 04-01-2024 Follow-up visit [id number] Richard Boykin 1940 M Date Provider Department Center 04/01/2024 SWEETIE TRIMBLE [facility] Family History Problem Relation Age of Onset Stroke Mother Valvular heart disease Father Family Status - Relation Status Age at Mother Father Level of Service:[address]66 [place] OFFICE/OUTPATIENT ESTABLISHED MOD MDM 30 MIN Normal [facility] BNPon 03-26-2022 Natriuretic peptide B (Bld) [Mass/Vol] 629.0 pg/mL Normal <=1,800.0 [facility] Comment on above: Performed By: #### B MP, TSH, BNP, LIPID #### [facility] [address] [address] [address] Aaron Ling LIPID PROFILEon 03-26-2022 CHOL-HDL RATIO NORM SEE BELOW Normal [facility] Comment on above: Result Comment: 3.3 - 4.4 LOW RISK 4.4 - 7.1 AVERAGE RISK 7.1 - 11.0 MODERATE RISK >11.0 HIGH RISK Performed By: #### B MP, TSH, BNP, LIPID #### [facility] [address] [address] [address] Aaron Ling Cholesterol [Mass/Vol] 212 mg/dL Critically high <=200 [facility] Comment on above: Performed By: #### B MP, TSH, BNP, LIPID #### [facility] [address] [address] [address] Aaron Ling Cholesterol in HDL [Mass/Vol] 86 mg/dL Critically high 40-60 [facility] Comment on above: Performed By: #### B MP, TSH, BNP, LIPID #### [facility] [address] [address] [address] Aaron Ling Cholesterol in LDL [Mass/Vol] 98.4 mg/dL Normal [facility] Comment on above: Performed By: #### B MP, TSH, BNP, LIPID #### [facility] [address] [place] [address] Dr. Aaron Ling Cholesterol.total/Sue sterol in HDL [Mass ratio] 2.5 {ratio} Normal [facility] Comment on above: Performed By: #### B MP, TSH, BNP, LIPID #### [facility] [address] [place] [address] Dr. Aaron Ling HDL NORMAL > or = 60 mg/dl - LOW CARDIOVASCULAR RISK <40 mg/dl - HIGH CARDIOVASCULAR RISK Normal [facility] Comment on above: Performed By: #### B MP, TSH, BNP, LIPID #### [facility] [address] [place] [address] Dr. Aaron Ling LDL CALC NORMAL SEE BELOW Normal [facility] Comment on above: Result Comment: <100 mg/dl OPTIMAL 100 - 129 mg/dl NEAR OR ABOVE OPTIMAL 130 - 159 mg/dl BORDERLINE HIGH 160 - 189 mg/dl HIGH >190 mg/dl VERY HIGH Performed By: #### B MP, TSH, BNP, LIPID #### [facility] [address] [place] [address] Dr. Aaron Ling Triglyceride [Mass/Vol] 138 mg/dL Normal <=150 [facility] Comment on above: Performed By: #### B MP, TSH, BNP, LIPID #### [facility] [address] [place] [address] Dr. Aaron Ling VLDL CALC 27.6 mg/dL Normal [facility] Comment on above: Performed By: #### B MP, TSH, BNP, LIPID #### [facility] [address] [place] [address] Dr. Aaron Ling PROF CHEM 8 (BAS METB)on Anion gap [Moles/Vol] 7.4 mmol/L Normal [facility] Comment on above: Performed By: #### B MP, TSH, BNP, LIPID #### [facility] [address] [address] [address] Aaron Ling Calcium [Mass/Vol] 9.6 mg/dL Normal 8.5-10.1 [facility] Comment on above: Performed By: #### B MP, TSH, BNP, LIPID #### [facility] [address] [place] [address] Dr. Aaron Ling Chloride [Moles/Vol] 94 mmol/L Critically low 98-107 [facility] Comment on above: Performed By: #### B MP, TSH, BNP, LIPID #### [facility] [address] [address] [address] Aaron Ling CO2 [Moles/Vol] 36.2 mmol/L Critically high 21.0-32.0 [facility] Comment on above: Performed By: #### B MP, TSH, BNP, LIPID #### [facility] [address] [place] [address] Dr. Aaron Ling Creatinine [Mass/Vol] 2.27 mg/dL Critically high 0.70-1.30 [facility] Comment on above: Performed By: #### B MP, TSH, BNP, LIPID #### [facility] [address] [place] [address] Dr. Aaron Ling EGFR-AF TRISTANIAN 34 mL/min/1.73m2 Critically low >=60 [facility] Comment on above: Performed By: #### B MP, TSH, BNP, LIPID #### [facility] [address] [place] [address] Dr. Aaron Ling EGFR-NON AF TRISTANIAN 28 mL/min/1.73m2 Critically low >=60 [facility] Comment on above: Performed By: #### B MP, TSH, BNP, LIPID #### [facility] [address] [place] [address] Dr. Aaron Ling Glucose [Mass/Vol] 214 mg/dL Critically high 74-106 [facility] Comment on above: Performed By: #### B MP, TSH, BNP, LIPID #### [facility] [address] [place] [address] Dr. Aaron Ling Potassium [Moles/Vol] 3.6 mmol/L Normal 3.5-5.1 [facility] Comment on above: Performed By: #### B MP, TSH, BNP, LIPID #### [facility] [address] [address] [address] Aaron Ling Sodium [Moles/Vol] 134 mmol/L Critically low 136-145 [facility] Comment on above: Performed By: #### B MP, TSH, BNP, LIPID #### [facility] [address] [address] [address] Aaron Ling Urea nitrogen [Mass/Vol] 48.0 mg/dL Critically high 7.0-18.0 [facility] Comment on above: Performed By: #### B MP, TSH, BNP, LIPID #### [facility] [address] [place] [address] Dr. Aaron Ling Urea nitrogen/Creatinine [Mass ratio] 21.1 mg/mg Normal [facility] Comment on above: Performed By: #### B MP, TSH, BNP, LIPID #### [facility] [address] [place] [address] Dr. Aaron Ling TSHon 03-26-2022 TSH 2.606 uIU/mL Normal 0.358-3.740 [facility] Comment on above: Performed By: #### B MP, TSH, BNP, LIPID #### [facility] [address] [place] [address] Dr. Aaron Ling Cholesterol [Mass/volume] in Serum or PlasmaOrdered By: Sweetie Tomlinson on 01-19-2022 Cholesterol [Mass/Vol] 259 mg/dL 140-200 [facility] Comment on above: Chol less than 200 m g/dl low risk Chol 201-239 mg/dl borderline risk Chol 240 mg/dl and greater high risk Cholesterol in LDL Calc [Mas s/Vol]Ordered By: Sweetie Tomlinson on 01-19-2022 Cholesterol in LDL [Mass/Vol] 142 mg/dL 0-100 [facility] Comment on above: LDL ATP III CLASSIFI CATION LDL less than 100 mg/dL Optimal LDL 100-129 mg/dL Near or above optimal LDL 130-159 mg/dL Borderline high LDL 160-189 mg/dL High LDL greater than 189 mg/dL Very high Cholesterol in VLDL Calc [Ma ss/Vol]Ordered By: Sweetie Tomlinson on 01-19-2022 Cholesterol in VLDL [Mass/Vol] 12 mg/dL [facility] Creatinine and Glomerular fi ltration rate.predicted panel (S/P/Bld)Ordered By: Sweetie Tomlinson on 01-19-2022 Creatinine [Mass/Vol] 2.03 mg/dL 0.64-1.27 [facility] Estimated glomerular filtrat ion rate (GFR) non- AmericanOrdered By: Sweetie Tomlinson on 01-19-2022 GFR/1.73 sq M.predicted among non-blacks MDRD (S/P/Bld) [Vol rate/Area] 32 mL/Min [facility] - Chemistry and C hemistry - challengeOrdered By: Sweetie Tomlinson on 01-19-2022 Natriuretic peptide B (Bld) [Mass/Vol] 749.0 pg/mL 5-100 [facility] No Panel InformationOrdered By: Sweetie Tomlinson on 01-19-2022 Estimated GFR () 38 mL/Min [facility] Comment on above: GFR estimated refere nce range: According to KDOQI guidelines, <60 ml/min/1.73m2 is sufficient to diagnose a patient with chronic kidney disease. Pharmacy Creatinine Clearance (Chem N/A [facility] Serum or plasma calcium shelbi urement (mass/volume)Ordered By: Sweetie Tomlinson on 01-19-2022 Calcium [Mass/Vol] 8.5 mg/dL 8.2-10.2 [facility] Serum or plasma chloride alex surement (moles/volume)Ordered By: Sweetie Tomlinson on 01-19-2022 Chloride [Moles/Vol] 103 mmol/L 95-114 [facility] Serum or plasma glucose shelbi urement (mass/volume)Ordered By: Sweetie Tomlinson on 01-19-2022 Glucose [Mass/Vol] 99 mg/dL 70-100 [facility] Comment on above: ADA recommended refe rence range Random Glucose Reference Range is dependent on time and content of last meal. Glucose of more than 200 mg/dL in a nonstressed, ambulatory subject supports the diagnosis of Diabetes Mellitus. Serum or plasma high density lipoprotein (HDL) cholesterol measurementOrdered By: Sweetie Tomlinson on 01-19-2022 Cholesterol in HDL [Mass/Vol] 105 mg/dL 29-71 [facility] Comment on above: HDL CHOL ATP-III CLA SSIFICATION Cardiovascular Risk HDL > or equal to 60 mg/dL LOW HDL < 40 mg/dL HIGH Serum or plasma potassium me asurement (moles/volume)Ordered By: Sweetie Tomlinson on 01-19-2022 Potassium [Moles/Vol] 4.9 mmol/L 3.5-5.1 [facility] Serum or plasma sodium measu rement (moles/volume)Ordered By: Sweetie Tomlinson on 01-19-2022 Sodium [Moles/Vol] 142 mmol/L 136-146 [facility] Serum or plasma total carbon dioxide measurement (moles/volume)Ordered By: Sweetie Tomlinson on 01-19-2022 CO2 [Moles/Vol] 31.5 mmol/L 22.0-30.0 [facility] Serum or plasma total choles terol/high density lipoprotein (HDL) cholesterol mass ratOrdered By: Sweetie Tomlinson on 01-19-2022 Cholesterol.total/Sue sterol in HDL [Mass ratio] 2.5 {ratio} <5.0 [facility] Serum or plasma urea nitroge n measurement (mass/volume)Ordered By: Sweetie Tomlinson on 01-19-2022 Urea nitrogen [Mass/Vol] 50 mg/dL 9- [facility] TSH DL <= 0.005 mIU/L QnOrde red By: Sweetie Tomlinson on 01-19-2022 TSH Qn 11.52 m[IU]/L 0.45-5.33 [facility] Triglyceride [Mass/volume] i n Serum or PlasmaOrdered By: Sweetie Tomlinson on 01-19-2022 Triglyceride [Mass/Vol] 60 mg/dL 35-149 [facility] Comment on above: TRIG ATP III CLASSIF ICATION TRIG less than 150 mg/dL Normal TRIG 150-199 mg/dL Borderline high TRIG 200-500 mg/dL High TRIG greater than 500 mg/dL Very high Standard traceable to the Center for Disease Conrtrol and Prevention (CDC) test method. BNPon 12-21-2021 Natriuretic peptide B (Bld) [Mass/Vol] 2048.0 pg/mL Critically high <=1,800.0 [facility] Comment on above: Performed By: #### B MP, BNP #### [facility] [address] [place] [address] Dr. Aaron Ling PROF CHEM 8 (BAS METB)on Anion gap [Moles/Vol] 11.1 mmol/L Normal [facility] Comment on above: Performed By: #### B MP, BNP #### [facility] [address] [place] [address] Dr. Aaron Ling Calcium [Mass/Vol] 8.7 mg/dL Normal 8.5-10.1 [facility] Comment on above: Performed By: #### B MP, BNP #### [facility] [address] [place] [address] Dr. Aaron Ling Chloride [Moles/Vol] 106 mmol/L Normal 98-107 [facility] Comment on above: Performed By: #### B MP, BNP #### [facility] [address] [place] [address] Dr. Aaron Ling CO2 [Moles/Vol] 30.9 mmol/L Normal 21.0-32.0 [facility] Comment on above: Performed By: #### B MP, BNP #### [facility] [address] [place] [address] Dr. Aaron Ling Creatinine [Mass/Vol] 2.07 mg/dL Critically high 0.70-1.30 [facility] Comment on above: Performed By: #### B MP, BNP #### [facility] [address] [place] [address] Dr. Aaron Ling EGFR-AF TRISTANIAN 38 mL/min/1.73m2 Critically low >=60 [facility] Comment on above: Performed By: #### B MP, BNP #### [facility] [address] [address] [address] Aaron Ling EGFR-NON AF TRISTANIAN 31 mL/min/1.73m2 Critically low >=60 [facility] Comment on above: Performed By: #### B MP, BNP #### [facility] [address] [address] [address] Aaron Ling Glucose [Mass/Vol] 138 mg/dL Critically high 74-106 [facility] Comment on above: Performed By: #### B MP, BNP #### [facility] [address] [address] [address] Aaron Ling Potassium [Moles/Vol] 5.0 mmol/L Normal 3.5-5.1 [facility] Comment on above: Performed By: #### B MP, BNP #### [facility] [address] [address] [address] Aaron Ling Sodium [Moles/Vol] 143 mmol/L Normal 136-145 [facility] Comment on above: Performed By: #### B MP, BNP #### [facility] [address] [address] [address] Aaron Ling Urea nitrogen [Mass/Vol] 43.0 mg/dL Critically high 7.0-18.0 [facility] Comment on above: Performed By: #### B MP, BNP #### [facility] [address] [address] [address] Aaron Ling Urea nitrogen/Creatinine [Mass ratio] 20.8 mg/mg Normal [facility] Comment on above: Performed By: #### B MP, BNP #### [facility] [address] [address] [address] Aaron Ling BASIC METABOLIC PANELon 05 Calcium [Mass/Vol] 8.7 mg/dL Normal 8.6-10.3 [facility] Comment on above: Order Comment: No: D o not add to previous draw Performed By: #### 5 0608, 25793 #### [facility] [address] [place] [address], [place] Chloride [Moles/Vol] 98 mmol/L Normal 98-107 [facility] Comment on above: Order Comment: No: D o not add to previous draw Performed By: #### 5 0608, 12827 #### [facility] [address] [place] [address], [place] CO2 [Moles/Vol] 29 mmol/L Normal 21-31 [facility] Comment on above: Order Comment: No: D o not add to previous draw Performed By: #### 5 06, 61313 #### [facility] [address] [place] [address], [place] Creatinine [Mass/Vol] 1.00 mg/dL Normal 0.70-1.30 [facility] Comment on above: Order Comment: No: D o not add to previous draw Performed By: #### 5 06, 09415 #### [facility] [address] [place] [address], [place] GFR/1.73 sq M.predicted among blacks MDRD (S/P/Bld) [Vol rate/Area] mL/min/{1.73_m2} Normal >60 [facility] Comment on above: Order Comment: No: D o not add to previous draw Result Comment: Calc ulation may not be valid for patients over 70 years Performed By: #### 5 0608, 06342 #### [facility] [address] [place] [address], [place] GFR/1.73 sq M.predicted among non-blacks MDRD (S/P/Bld) [Vol rate/Area] mL/min/{1.73_m2} Normal >60 [facility] Comment on above: Order Comment: No: D o not add to previous draw Result Comment: Calc ulation may not be valid for patients over 70 years Performed By: #### 5 06, 52109 #### [facility] [address] [place] [address], [place] Glucose [Mass/Vol] 288 mg/dL High 70-100 [facility] Comment on above: Order Comment: No: D o not add to previous draw Performed By: #### 5 607, 83418 #### [facility] [address] [place] [address], [place] Potassium [Moles/Vol] 4.7 mmol/L Normal 3.5-5.1 [facility] Comment on above: Order Comment: No: D o not add to previous draw Performed By: #### 5 607, 65105 #### [facility] [address] [place] [address], [place] Sodium [Moles/Vol] 135 mmol/L Low 136-145 [facility] Comment on above: Order Comment: No: D o not add to previous draw Performed By: #### 5 607, 01769 #### [facility] [address] [place] [address], [place] Urea nitrogen [Mass/Vol] 28 mg/dL High 7-25 [facility] Comment on above: Order Comment: No: D o not add to previous draw Performed By: #### 5 607, 77433 #### [facility] [address] [place] [address], [place] CBC COMPLETE BLOOD COUNTon 0 - Erythrocyte distribution width (RBC) [Ratio] 14.3 % Normal 11.5-15.0 [facility] Comment on above: Order Comment: No: D o not add to previous draw Performed By: #### 5 607, 46422 #### [facility] [address] [place] [address], [place] Hematocrit (Bld) [Volume fraction] 42.0 % Normal 39.0-50.0 [facility] Comment on above: Order Comment: No: D o not add to previous draw Performed By: #### 5 607, 30810 #### [facility] [address] [place] [address], [place] Hemoglobin (Bld) [Mass/Vol] 13.7 g/dL Normal 13.0-17.0 [facility] Comment on above: Order Comment: No: D o not add to previous draw Performed By: #### 5 06, 43055 #### [facility] [address] [place] [address], [facility] MCH (RBC) [Entitic mass] 31.5 pg Normal 27.0-33.0 [facility] Comment on above: Order Comment: No: D o not add to previous draw Performed By: #### 5 607, 99736 #### [facility] [address] [place] [address], [facility] MCHC (RBC) [Mass/Vol] 32.6 g/dL Normal 32.0-35.0 [facility] Comment on above: Order Comment: No: D o not add to previous draw Performed By: #### 5 607, 07450 #### [facility] [address] [place] [address], [facility] MCV (RBC) [Entitic vol] 96.6 fL Normal 82.0-98.0 [facility] Comment on above: Order Comment: No: D o not add to previous draw Performed By: #### 5 607, 77698 #### [facility] [address] [place] [address], [facility] Nucleated RBC/100 WBC (Bld) [Ratio] 0 % Normal 0-0 [facility] Comment on above: Order Comment: No: D o not add to previous draw Performed By: #### 5 607, 08282 #### [facility] [address] [place] [address], [facility] PLAT CNT 298 10*3/uL Normal 150-400 [facility] Comment on above: Order Comment: No: D o not add to previous draw Performed By: #### 5 607, 53791 #### [facility] [address] [place] [address], [facility] RBC (Bld) [#/Vol] 4.35 10*6/uL Normal 4.20-5.70 [facility] Comment on above: Order Comment: No: D o not add to previous draw Performed By: #### 5 0608, 68955 #### [facility] [address] [place] [address], [facility] WBC (Bld) [#/Vol] 10.30 10*3/uL Normal 4.00-10.60 [facility] Comment on above: Order Comment: No: D o not add to previous draw Performed By: #### 5 0608, 07714 #### [facility] [address] [place] [address], [facility] MAGNESIUM BLOODon 11-02-2021 Magnesium [Mass/Vol] 2.0 mg/dL Normal 1.9-2.7 [facility] Comment on above: Order Comment: No: D o not add to previous draw Performed By: #### 5 0608, 24644 #### [facility] [address] [place] [address], [facility] POC GLUCOSE LABon 11-02-2021 Glucose [Mass/Vol] 296 mg/dL High 70-100 [facility] Comment on above: Performed By: #### 5 7307, 94607 #### [facility] [address] [place] [address], [facility] Glucose [Mass/Vol] 262 mg/dL High 70-100 [facility] Comment on above: Performed By: #### 5 7307, 02036 #### [facility] [address] [place] [address], [facility] PORTABLE CHEST 1 VIEWon 10-17 PORTABLE CHEST 1 VIEW [facility] Department of Radiology [address] [place] [id number] Patient Name: RICHARD BOYKIN : 1940 Sex: M Age: Race: NA Pt. Location: [id number] Patient Status: I Ordered Date: 11/02/2021 12:05:00 [...] basilar atelectasis and pleural effusions. Electronically signed: Yoni Abarca. Transcribed by: [email or web address], User Resident: Electronically Signed by: YONI ABARCA @ 11/02/2021 12:49 PM Normal [facility] Comment on above: Order Comment: Check Line Position, right arm picc *ANAEROBIC CULTUREon 022 *ANAEROBIC CULTURE Clinical Report: (D) Specimen: FLUID Collected: 11/01/2021 15:30 Status: Final Last Updated: 11/06/2021 07:46 (1) RT SC JOINT CULT RES (Final) No Anaerobes Isolated 5 Days Normal [facility] Comment on above: Order Comment: Check Line Position, right arm picc Performed By: #### 3 0312 ####[facility] [place], [place] [id number] [place] [address] *ANAEROBIC CULTURE Clinical Report: (D) Specimen: TISSUE Collected: 11/01/2021 15:10 Status: Final Last Updated: 11/06/2021 07:46 (1) RT SC JOINT CULT RES (Final) No Anaerobes Isolated 5 Days Normal [facility] Comment on above: Order Comment: Check Line Position, right arm picc Performed By: #### 3 0312 ####[facility] [place] [address], [facility] *BODY FLUID CULTUREon 2021 *BODY FLUID CULTURE Clinical Report: (D) Specimen: FLUID Collected: 11/01/2021 15:30 Status: Final Last Updated: 11/06/2021 06:31 (1) RT SC JOINT GRAM (Final) Quantity Not Sufficient CULT RES (Final) No Growth Day 5 Normal [facility] Comment on above: Order Comment: RT SC JOINT Performed By: #### 5 0608, 28534 #### [facility] [address] *FUNGAL CULTUREon 11-01-2021 *FUNGAL CULTURE Clinical Report: (D) Specimen: TISSUE Collected: 11/01/2021 15:10 Status: Final Last Updated: 12/03/2021 07:55 (1) RT SC JOINT FS (Final) No Yeast or Fungal Elements Seen CULT RES (Final) Culture negative for fungus Normal [facility] Comment on above: Order Comment: Check Line Position, right arm picc Performed By: #### 3 0323 ####[facility] [place] [address], [facility] *TISSUE CULTUREon 11-01-2021 *TISSUE CULTURE Clinical Report: (D) Specimen: TISSUE Collected: 11/01/2021 15:10 Status: Final Last Updated: 11/06/2021 06:37 (1) RT SC JOINT GRAM (Final) Moderate Polys No Bacteria Seen CULT RES (Final) No Growth Day 5 Normal [facility] Comment on above: Order Comment: Check Line Position, right arm picc Performed By: #### 3 0338 ####[facility] BIOPSY ARM/WRIST SOFT TIS KIMBERLEY RIGHTon 11-01-2021 CT BIOPSY ARM/WRIST SOFT TISSUE RIGHT [facility] Department of Radiology [address] [place] [address] Patient Name: RICHARD BOYKIN : 1940 Sex: M Age: Race: NA Pt. Location: [id number] Patient Status: D Ordered Date: 11/01/2021 8:00:00 [...] risks are acceptable. Consent was obtained. Timeout: [place] protocol timeout verification performed. MEDICATIONS: 1 mg [...] biopsy of the right SC joint. Approved by:Siri Hoang11/02/2021 7:39 AM. I, Tara Hall,have reviewed the image(s) and agree with the findings in this report. Electronically signed: Tara Hall. 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 Will order aspiraton of the proximal RIGHT sternoclavicular joint seperately POC GLUCOSE LABon 11-01-2021 Glucose [Mass/Vol] 326 mg/dL High 70-100 [facility] Comment on above: Performed By: #### 5 7307, 94790 #### [facility] [address] [facility] [place] [address], [facility] Glucose [Mass/Vol] 245 mg/dL High 70-100 [facility] Comment on above: Performed By: #### 5 7307, 78300 #### [facility] [address] [facility] [place] [address], [facility] Glucose [Mass/Vol] 299 mg/dL High 70-100 The [facility] Comment on above: Performed By: #### 5 7307, 74538 #### [facility] [address] [facility] [place] [address], [facility] Glucose [Mass/Vol] 227 mg/dL High 70-100 [facility] Comment on above: Performed By: #### 5 7307, 29598 #### [facility] [address] [facility] [place] [address], [facility] POC SARS COV2 IDon 2 SARS-CoV-2 (COVID-19) RNA KIKO+probe Ql (Unsp spec) Negative Normal NEGATIVE [facility] Comment on above: Result Comment: [...] of Accreditation. Performed By: #### 5 0608, 61427 #### [facility] [address] [facility]. [place] [id number], [facility] POC GLUCOSE LABon 10-31-2021 Glucose [Mass/Vol] 236 mg/dL High 70-100 [facility] Comment on above: Performed By: #### 5 7307, 53745 #### [facility] [address] [facility] [place] [address], [place] Glucose [Mass/Vol] 274 mg/dL High 70-100 [facility] Comment on above: Performed By: #### 5 7307, 17594 #### [facility] [address] [facility] [place] [place] [address], [place] Glucose [Mass/Vol] 317 mg/dL High 70-100 [facility] Comment on above: Performed By: #### 5 7307, 90070 #### [facility] [address] [place] [address], [place] Glucose [Mass/Vol] 225 mg/dL High 70-100 [facility] Comment on above: Performed By: #### 5 7307, 46211 #### [facility] [address] *BLOOD CULTUREon 10-30-2021 *BLOOD CULTURE Clinical Report: (D) Specimen: BLOOD CULTURE Collected: 10/29/2021 23:08 Status: Final Last Updated: 11/04/2021 08:31 CULT RES (Final) No Growth Day 5 Normal [facility] Comment on above: Performed By: #### 5 7307, 66048 #### [facility] [address] [facility] APTTon 10-30-2021 aPTT Coag (Bld) [Time] 51.2 s High 25.0-35.0 Th e [facility] Comment on above: Order [...] THIS PURPOSE. Performed By: #### 5 0608, 63645 #### [facility] [address] BASIC METABOLIC PANELon 10-17 Calcium [Mass/Vol] 8.9 mg/dL Normal 8.6-10.3 [facility] Comment on above: Order Comment: No: D o not add to previous drawMissed Performed By: #### 5 0608, 22329 #### [facility] [address] [facility] [place] [address], [facility] Chloride [Moles/Vol] 99 mmol/L Normal 98-107 [facility] Comment on above: Order Comment: No: D o not add to previous drawMissed Performed By: #### 5 0608, 51250 #### [facility] [address] [facility]. [place] [id number], [facility] CO2 [Moles/Vol] 27 mmol/L Normal 21-31 The [facility] Comment on above: Order Comment: No: D o not add to previous drawMissed Performed By: #### 5 0608, 45458 #### [facility] [address] [place] [address], [place] Creatinine [Mass/Vol] 1.08 mg/dL Normal 0.70-1.30 [facility] Comment on above: Order Comment: No: D o not add to previous drawMissed Performed By: #### 5 06, 26943 #### [facility] [address] [place] [address], [place] GFR/1.73 sq M.predicted among blacks MDRD (S/P/Bld) [Vol rate/Area] mL/min/{1.73_m2} Normal >60 [facility] Comment on above: Order Comment: No: D o not add to previous drawMissed Result Comment: Calc ulation may not be valid for patients over 70 years Performed By: #### 5 06, 47291 #### [facility] [address] [place] [address], [place] GFR/1.73 sq M.predicted among non-blacks MDRD (S/P/Bld) [Vol rate/Area] mL/min/{1.73_m2} Normal >60 [facility] Comment on above: Order Comment: No: D o not add to previous drawMissed Result Comment: Calc ulation may not be valid for patients over 70 years Performed By: #### 5 06, 98299 #### [facility] [address] [place] [address], [place] Glucose [Mass/Vol] 257 mg/dL High 70-100 [facility] Comment on above: Order Comment: No: D o not add to previous drawMissed Performed By: #### 5 06, 15886 #### [facility] [address] [place] [address], [place] Potassium [Moles/Vol] 4.5 mmol/L Normal 3.5-5.1 [facility] Comment on above: Order Comment: No: D o not add to previous drawMissed Performed By: #### 5 0608, 27246 #### [facility] [address] [place] [id number], [facility] Sodium [Moles/Vol] 135 mmol/L Low 136-145 The [facility] Comment on above: Order Comment: No: D o not add to previous drawMissed Performed By: #### 5 0608, 66565 #### [facility] [address] [place] [address], [facility] Urea nitrogen [Mass/Vol] 27 mg/dL High 7-25 [facility] Comment on above: Order Comment: No: D o not add to previous drawMissed Performed By: #### 5 0608, 11814 #### [facility] [address] [place] [address], [facility] C REACTIVE PROTEINon 10-30-2 022 CRP [Mass/Vol] 278.0 mg/L High 0.0-7.0 [facility] Comment on above: Order Comment: No: D o not add to previous draw Performed By: #### 5 7307, 20523 #### [facility] [address] CBC COMPLETE BLOOD COUNTon 0 10-30-2021 Erythrocyte distribution width (RBC) [Ratio] 14.6 % Normal 11.5-15.0 [facility] Comment on above: Order Comment: No: D o not add to previous draw Missed Performed By: #### 5 0608, 64343 #### [facility] [address] [place] [address], [facility] Hematocrit (Bld) [Volume fraction] 41.4 % Normal 39.0-50.0 [facility] Comment on above: Order Comment: No: D o not add to previous draw Missed Performed By: #### 5 0608, 23733 #### [facility] [address] [place] [address], [facility] Hemoglobin (Bld) [Mass/Vol] 13.9 g/dL Normal 13.0-17.0 [facility] Comment on above: Order Comment: No: D o not add to previous draw Missed Performed By: #### 5 06, 04263 #### [facility] [address] [place] [id number], [facility] MCH (RBC) [Entitic mass] 32.0 pg Normal 27.0-33.0 [facility] Comment on above: Order Comment: No: D o not add to previous draw Missed Performed By: #### 5 607, 23488 #### [facility] [address] [place] [address], [facility] MCHC (RBC) [Mass/Vol] 33.6 g/dL Normal 32.0-35.0 [facility] Comment on above: Order Comment: No: D o not add to previous draw Missed Performed By: #### 5 607, 17207 #### [facility] [address] [facility] [place] [place] [address], [facility] MCV (RBC) [Entitic vol] 95.2 fL Normal 82.0-98.0 [facility] Comment on above: Order Comment: No: D o not add to previous draw Missed Performed By: #### 5 607, 45197 #### [facility] [address] [facility] [place] [place] [address], [facility] Nucleated RBC/100 WBC (Bld) [Ratio] 0 % Normal 0-0 [facility] Comment on above: Order Comment: No: D o not add to previous draw Missed Performed By: #### 5 06, 39922 #### [facility] [address] [place] [address], [facility] PLAT CNT 211 10*3/uL Normal 150-400 [facility] Comment on above: Order Comment: No: D o not add to previous draw Missed Performed By: #### 5 06, 44105 #### [facility] [address] [place] [address], [facility] RBC (Bld) [#/Vol] 4.35 10*6/uL Normal 4.20-5.70 [facility] Comment on above: Order Comment: No: D o not add to previous draw Missed Performed By: #### 5 0608, 02853 #### [facility] [address] [place] [address], [facility] WBC (Bld) [#/Vol] 9.94 10*3/uL Normal 4.00-10.60 [facility] Comment on above: Order Comment: No: D o not add to previous draw Missed Performed By: #### 5 0608, 09568 #### [facility] [address] [place] [address], [facility] LACTATE WITH REFLEXon 2021 Lactate [Moles/Vol] 1.5 mmol/L Normal .5-2.2 [facility] Comment on above: Order Comment: No: D o not add to previous draw Performed By: #### 3 1414 #### [facility] [address] [place] [address], [facility] MAGNESIUM BLOODon 10-30-2021 Magnesium [Mass/Vol] 2.0 mg/dL Normal 1.9-2.7 [facility] Comment on above: Order Comment: No: D o not add to previous draw Performed By: #### 5 7307, 34019 #### [facility] [address] [place] [address], [facility] PHOSPHORUS BLOODon Phosphate [Mass/Vol] 3.0 mg/dL Normal 2.5-5.0 [facility] Comment on above: Order Comment: No: D o not add to previous draw Performed By: #### 5 7307, 11389 #### [facility] [address] [place] [address], [facility] POC GLUCOSE LABon 10-30-2021 Glucose [Mass/Vol] 355 mg/dL High 70-100 The [facility] Comment on above: Performed By: #### 5 7307, 03579 #### [facility] [address] [place] [address], [place] Glucose [Mass/Vol] 318 mg/dL High 70-100 [facility] Comment on above: Performed By: #### 5 7307, 14469 #### [facility] [address] [place] [address], [place] Glucose [Mass/Vol] 244 mg/dL High 70-100 [facility] Comment on above: Performed By: #### 5 7307, 23873 #### [facility] [address] [place] [address], [place] Glucose [Mass/Vol] 294 mg/dL High 70-100 [facility] Comment on above: Performed By: #### 5 7307, 54248 #### [facility] [address] [place] [address], [facility] PROTHROMBIN TIMEon 2 INR Coag (PPP) [Relative time] 1.09 {INR} Normal 0.91-1.16 [facility] Comment on above: Order Comment: No: D o not add to previous drawMissed Result Comment: ACCC P RECOMMENDED INR FOR WARFARIN THERAPY ------- CONDITION INR PROPHYLAXIS OF VENOUS THROMBOSIS 2-3 (HIGH-RISK SURGERY) TREATMENT OF VENOUS THROMBOSIS 2-3 TREATMENT OF PULMONARY EMBOLISM 2-3 PREVENTION OF SYSTEMIC EMBOLISM: 2-3 ACUTE MYOCARDIAL INFARCTION TISSUE HEART VALVES VALVULAR HEART DISEASE ATRIAL FIBRILLATION RECURRENT SYSTEMIC EMBOLISM MECHANICAL HEART VALVE 2.5-3.5 FROM: ORAL ANTICOAGULANTS. MECHANISM OF ACTION, CLINICAL EFFECTIVENESS, AND OPTIMAL THERAPEUTIC RANGE. CHEST 1995;108:231S-246S. Performed By: #### 5 0608, 91654 #### [facility] [address] PT Coag (PPP) [Time] 14.1 s Normal 12.3-14.8 [facility] Comment on above: Order Comment: No: D o not add to previous drawMissed Result Comment: ALL RESULTS MUST BE INTERPRETED WITH RESPECT TO BLOOD DRAWING ARTIFACT OR DILUTION ERROR OF ANTICOAGULANT AT THE TIME OF SAMPLING. Performed By: #### 5 0608, [id number] #### [facility] [address] SEDIMENTATION RATEon 022 SED RATE 43 mm/hr High 0-10 [facility] Comment on above: Performed By: #### 5 0608, 03697 #### [facility] [address] *BLOOD CULTUREon 10-29-2021 *BLOOD CULTURE Clinical Report: (D) Specimen: BLOOD CULTURE Collected: 10/29/2021 21:05 Status: Final Last Updated: 11/04/2021 08:31 (1) LH 2051 CULT RES (Final) No Growth Day 5 Normal [facility] Comment on above: Order Comment: No: D o not add to previous draw Performed By: #### 5 7307, 83824 #### [facility] [address] *BLOOD CULTURE Clinical Report: (D) Specimen: BLOOD CULTURE Collected: 10/29/2021 21:05 Status: Final Last Updated: 11/04/2021 08:31 (1) RH 2100 CULT RES (Final) No Growth Day 5 Normal [facility] Comment on above: Order Comment: Check Line Position, right arm picc Performed By: #### 3 0313 ####[facility] [place] [address], [facility] APTTon 10-29-2021 aPTT Coag (Bld) [Time] 47.5 s High 25.0-35.0 Th [facility] Comment on above: Order [...] THIS PURPOSE. Performed By: #### 5 7307, 68775 #### [facility] [address] [place] [address], [facility] BASIC METABOLIC PANELon 10-17 Calcium [Mass/Vol] 8.7 mg/dL Normal 8.6-10.3 [facility] Comment on above: Order Comment: No: D o not add to previous draw Performed By: #### 1 0070, 50257, 55852, 92332 #### [facility] [address] [place] [address], [facility] Chloride [Moles/Vol] 100 mmol/L Normal 98-107 [facility] Comment on above: Order Comment: No: D o not add to previous draw Performed By: #### 1 0070, 22486, 34726, 71125 #### [facility] [address] [place] [address], [place] CO2 [Moles/Vol] 25 mmol/L Normal 21-31 [facility] Comment on above: Order Comment: No: D o not add to previous draw Performed By: #### 1 0070, 56328, 53307, 73335 #### [facility] [address] [place] [address], [place] Creatinine [Mass/Vol] 1.14 mg/dL Normal 0.70-1.30 [facility] Comment on above: Order Comment: No: D o not add to previous draw Performed By: #### 1 0070, 79226, 61333, 85372 #### [facility] [address] [place] [address], [facility] GFR/1.73 sq M.predicted among blacks MDRD (S/P/Bld) [Vol rate/Area] mL/min/{1.73_m2} Normal >60 [facility] Comment on above: Order Comment: No: D o not add to previous draw Result Comment: Calc ulation may not be valid for patients over 70 years Performed By: #### 1 0070, 74240, 23777, 23634 #### [facility] [address] [place] [address], [facility] GFR/1.73 sq M.predicted among non-blacks MDRD (S/P/Bld) [Vol rate/Area] mL/min/{1.73_m2} Normal >60 [facility] Comment on above: Order Comment: No: D o not add to previous draw Result Comment: Calc ulation may not be valid for patients over 70 years Performed By: #### 1 0070, 08376, 89653, 98827 #### [facility] [address] [place] [address], [place] Glucose [Mass/Vol] 261 mg/dL High 70-100 The [facility] Comment on above: Order Comment: No: D o not add to previous draw Performed By: #### 1 0070, 09942, 03860, 85710 #### [facility] [address] [place] [address], [place] Potassium [Moles/Vol] 4.4 mmol/L Normal 3.5-5.1 [facility] Comment on above: Order Comment: No: D o not add to previous draw Performed By: #### 1 0070, 73699, 00907, 68972 #### [facility] [address] [place] [address], [facility] Sodium [Moles/Vol] 134 mmol/L Low 136-145 [facility] Comment on above: Order Comment: No: D o not add to previous draw Performed By: #### 1 0070, 04821, 70787, 27143 #### [facility] [address] [place] [address], [facility] Urea nitrogen [Mass/Vol] 30 mg/dL High 7-25 [facility] Comment on above: Order Comment: No: D o not add to previous draw Performed By: #### 1 0070, 60581, 32810, 52664 #### [facility] [address] [place] [address], [facility] LIVER BATTERYon 10-29-2021 Albumin [Mass/Vol] 3.0 g/dL Low 3.5-5.7 The [facility] Comment on above: Order Comment: No: D o not add to previous draw Missed twice. Rhiannon Riojas notified. Performed By: #### 1 0070, 87150, 98480, 95704 #### [facility] [address] [place] [address], [facility] ALKALINE PHOSPH 159 IU/L High 34-104 [facility] Comment on above: Order Comment: No: D o not add to previous draw Missed twice. Rhiannon Riojas notified. Performed By: #### 1 0070, 60531, 14554, 74412 #### [facility] [address] [place] [address], [facility] ALT [Catalytic activity/Vol] 25 U/L Normal 7-52 [facility] Comment on above: Order Comment: No: D o not add to previous draw Missed twice. Rhiannon Riojas notified. Performed By: #### 1 0070, 51528, 96797, 77493 #### [facility] [address] [place] [address], [facility] AST [Catalytic activity/Vol] 40 U/L High 13-39 [facility] Comment on above: Order Comment: No: D o not add to previous draw Missed twice. Rhiannon Riojas notified. Performed By: #### 1 0070, 63637, 37227, 31468 #### [facility] [address] [place] [id number], [facility] Bilirubin [Mass/Vol] 0.8 mg/dL Normal 0.3-1.0 [facility] Comment on above: Order Comment: No: D o not add to previous draw Missed twice. Rhiannon Riojas notified. Performed By: #### 1 0070, 24190, 42622, 94176 #### [facility] [address] [place] [id number], [facility] Bilirubin.direct [Mass/Vol] 0.1 mg/dL Normal 0.0-0.2 [facility] Comment on above: Order Comment: No: D o not add to previous draw Missed twice. Rhiannon Riojas notified. Performed By: #### 1 0070, 95909, 21994, 55596 #### [facility] [address] [place] [address], [facility] Protein [Mass/Vol] 6.7 g/dL Normal 6.0-8.3 [facility] Comment on above: Order Comment: No: D o not add to previous draw Missed twice. Rhiannon Riojas notified. Performed By: #### 1 0070, 14678, 60167, 31458 #### [facility] [address] [place] [address], [facility] MAGNESIUM BLOODon 10-29-2021 Magnesium [Mass/Vol] 2.1 mg/dL Normal 1.9-2.7 [facility] Comment on above: Order Comment: No: D o not add to previous draw Performed By: #### 1 0070, 33774, 20613, 29982 #### [facility] [address] [place] [address], [place] PHOSPHORUS BLOODon Phosphate [Mass/Vol] 2.7 mg/dL Normal 2.5-5.0 [facility] Comment on above: Order Comment: No: D o not add to previous draw Performed By: #### 1 0070, 90370, 46515, 97284 #### [facility] [address] [place] [address], [facility] POC GLUCOSE LABon 10-29-2021 Glucose [Mass/Vol] 262 mg/dL High 70-100 The [facility] Comment on above: Performed By: #### 5 7307, 25604 #### [facility] [address] [place] [address], [facility] PROTHROMBIN TIMEon INR Coag (PPP) [Relative time] 1.05 {INR} Normal 0.91-1.16 [facility] Comment on above: Order Comment: No: D o not add to previous draw Result Comment: ACCC P RECOMMENDED INR FOR WARFARIN THERAPY ------- CONDITION INR PROPHYLAXIS OF VENOUS THROMBOSIS 2-3 (HIGH-RISK SURGERY) TREATMENT OF VENOUS THROMBOSIS 2-3 TREATMENT OF PULMONARY EMBOLISM 2-3 PREVENTION OF SYSTEMIC EMBOLISM: 2-3 ACUTE MYOCARDIAL INFARCTION TISSUE HEART VALVES VALVULAR HEART DISEASE ATRIAL FIBRILLATION RECURRENT SYSTEMIC EMBOLISM MECHANICAL HEART VALVE 2.5-3.5 FROM: ORAL ANTICOAGULANTS. MECHANISM OF ACTION, CLINICAL EFFECTIVENESS, AND OPTIMAL THERAPEUTIC RANGE. CHEST 1995;108:231S-246S. Performed By: #### 5 7307, 45749 #### [facility] [address] [place] [address], [place] PT Coag (PPP) [Time] 13.7 s Normal 12.3-14.8 [facility] Comment on above: Order Comment: No: D o not add to previous draw Result Comment: ALL RESULTS MUST BE INTERPRETED WITH RESPECT TO BLOOD DRAWING ARTIFACT OR DILUTION ERROR OF ANTICOAGULANT AT THE TIME OF SAMPLING. Performed By: #### 5 7307, 18953 #### [facility] [address] [place] [address], [facility] XR knee RT 2Von 03-11-2021 XR knee RT 2V [facility] [employer] Other XR knee RT 2V [facility] [place] [employer] Other XR knee RT 2V [address] [place] [address] [employer] Other XR knee [place] 2[place] [address] [facility] [employer] Other XR knee RT 2V XRay Report [facility] [employer] Other XR knee RT 2V Signed [employer] Other XR knee RT 2V Patient: Richard Boykin MR#: [id number] [place] [employer] Other XR knee RT 2V : 1940 Acct:[id number] [place] [employer] Other XR knee RT 2V Age/Sex: 80 / M ADM Date: 03/11/21 [employer] Other XR knee RT 2V Loc: [facility] Room: Type: [facility] [employer] Other XR knee RT 2V Attending Dr: Godfrey Gomez MD [employer] Other XR knee RT 2V Ordering Provider: Godfrey Gomez MD [employer] Other XR knee RT 2V Date of Service: 03/11/21 [employer] Other XR knee RT 2V XR/XR knee RT 2V: Arthritis of right knee [employer] Other XR knee RT 2V Copies to: Godfrey Gomez MD [employer] Other XR knee RT 2V XR knee RT 2V 03/11/2021 7:52 AM [employer] Other XR knee RT 2V SIGNS AND SYMPTOMS: Status post total right knee arthroplasty placement, follow-up [employer] Other XR knee RT 2V PROTOCOL: Frontal and lateral graphs of the right knee [employer] Other XR knee RT 2V COMPARISON: 10/08/2020 [employer] Other XR knee RT 2V FINDINGS: [employer] Other XR knee RT 2V There is total right knee arthroplasty hardware without hardware complication or malalignment. [employer] Other XR knee RT 2V There is no significant soft tissue swelling. No evidence of fracture. Vascular calcifications are [employer] Other XR knee RT 2V present posteriorly. [employer] Other XR knee RT 2V XR/XR knee RT 2V [employer] Other XR knee RT 2V IMPRESSION: [employer] Other XR knee RT 2V Unchanged total right knee arthroplasty hardware. No fracture or hardware complication. [employer] Other XR knee RT 2V Impression dictated by: Jama Callejas M.D.03/11/2021 1:29 PM [employer] Other XR knee RT 2V Dictation Location: [place] [address] [employer] Other XR knee RT 2V Transcribed By: FLAVIA 03/11/21 1329 [employer] Other XR knee RT 2V Dictated By: Jama Calleajs II, MD 03/11/21 1328 [employer] Other XR knee RT 2V Signed By: [employer] Other XR knee RT 2V 03/11/21 1320 [facility] [employer] Other Vital Signs Date Time Vital Sign Value Performing Clinician Facility 02-26-2025 16:04-0400 Body height 180.34 cm Shelbie Velez MD Work Phone: [facility] 02-26-2025 16:04-0400 Body mass index (BMI) [Ratio] 32.1 kg/m2 Shelbie Velez MD Work Phone: [facility] 02-26-2025 16:04-0400 Body temperature 98.1 [degF] Shelbie Velez MD Work Phone: [facility] 02-26-2025 16:04-0400 Body weight 104.32 kg Shelbie Velez MD Work Phone: [facility] 02-26-2025 16:04-0400 Diastolic blood pressure 60 mm[Hg] Shelbie Velez MD Work Phone: [facility] 02-26-2025 16:04-0400 Heart rate 73 /min Shelbie Velez MD Work Phone: [facility] 02-26-2025 16:04-0400 Respiratory rate 18 /min Shelbie Velez MD Work Phone: [facility] 02-26-2025 16:04-0400 SaO2% (BldA) [Mass fraction] 97 % Shelbie Velez MD Work Phone: [facility] 02-26-2025 16:04-0400 Systolic blood pressure 105 mm[Hg] Shelbie Velez MD Work Phone: [facility] 10-23-2024 15:46-0400 Body height 180.34 cm [facility] 10-23-2024 15:46-0400 Body mass index (BMI) [Ratio] 32.1 kg/m2 [facility] 10-23-2024 15:46-0400 Body weight 104.38 kg [facility] 10-23-2024 15:46-0400 Diastolic blood pressure 73 mm[Hg] [facility] 10-23-2024 15:46-0400 Heart rate 47 /min [facility] 10-23-2024 15:46-0400 Respiratory rate 16 /min [facility] 10-23-2024 15:46-0400 SaO2% (BldA) [Mass fraction] 99 % [facility] 10-23-2024 15:46-0400 Systolic blood pressure 108 mm[Hg] [facility] 10-10-2024 09:00-0400 Body height 180.3 cm [...] 124 mm[Hg] Willian Shaikh MD Work Phone: [facility] 12-02-2021 11:90-8867 Body height 177.8 cm Teofilo Person Other [facility] [employer] Other Encounters Encounter Date Encounter Type Care Provider Facility Start: 03-11-2025 ambulatory Rigo Edu Facility: [facility] Start: 02-26-2025 End: 02-26-2025 ambulatory NON STAFF [facility] Work Phone: Start: 02-26-2025 End: 02-26-2025 Patient encounter procedure Shelbie Velez MD -[facility] Work Phone: Start: 02-24-2025 End: 02-24-2025 Patient encounter procedure Shelbie Velez MD -[facility] Work Phone: Start: 02-24-2025 End: 02-24-2025 ambulatory Shelbie Velez [facility] Work Phone: Start: 02-06-2025 End: 02-06-2025 ambulatory Rigo Edu Facility:[facility] Start: 01-16-2025 End: 01-16-2025 ambulatory Rigo Edu Facility: [facility] Start: 01-02-2025 End: 01-02-2025 ambulatory Rigo Edu Facility: [facility] Start: 01-02-2025 ambulatory Rigo Edu Facility: [facility] Start: 12-04-2024 End: 12-04-2024 ambulatory Rigo Edu Facility: [facility] Start: 10-28-2024 End: 10-28-2024 ambulatory [facility] Start: 10-23-2024 End: 10-23-2024 ambulatory [facility] Work Phone: Start: 10-23-2024 End: 10-23-2024 Patient encounter procedure [facility] Work Phone: Start: 10-18-2024 End: 10-18-2024 ambulatory [facility] Facility:[facility] Start: 10-10-2024 End: 10-10-2024 Office outpatient new 45 minutes Willian Shaikh MD Work Phone: [facility] Comment on above: 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 ([facility]-HCC) (Primary Dx); Iliac artery stenosis, right; Atherosclerosis of aorta Start: 10-08-2024 ambulatory Marj Sorensen Facility: [facility] Start: 08-07-2024 End: 08-07-2024 ambulatory Marj Sorensen Facility:[facility] Start: 08-07-2024 ambulatory Rigo Edu Facility: [facility] Start: 05-28-2024 ambulatory Rigo Edu Facility: [facility] Start: 05-21-2024 End: 05-21-2024 ambulatory Rigo Edu Facility:[facility] Start: 04-18-2024 End: 04-18-2024 ambulatory Rigo Edu Facility:[facility] Start: 04-18-2024 End: 04-18-2024 ambulatory Rigo Edu Facility:[facility] Start: 04-04-2024 End: 04-04-2024 ambulatory Rigo Edu Facility:[facility] Start: 04-04-2024 End: 04-04-2024 ambulatory Marj Dugan Edu Facility:[facility] Start: 04-01-2024 End: 04-01-2024 ambulatory SWEETIE TOMLINSON [facility] Start: 02-27-2023 End: 02-27-2023 ambulatory UNKNOWN PROVIDER Facility:[facility] Start: 10-24-2022 End: 10-25-[address] DOCTOR MALCOLM Facility:[facility] Start: 03-26-2022 End: 03-27-[address] DOCTOR MALCOLM Facility:[facility] Start: 01-19-2022 End: 01-19-2022 Patient encounter procedure MD Marj Sorensen Work Phone: [facility] Start: 12-21-2021 End: 12-22-[address] SWEETIE TOMLINSON Facility:[facility] Start: 12-02-2021 End: 12-02-2021 ambulatory Teofilo Person Other [employer] Other Start: 12-02-2021 Office outpatient visit 25 minutes Teofilo Person [facility] Start: 12-02-2021 End: 12-02-2021 Patient encounter procedure MD Marj Sorensen Work Phone: [facility] Start: 10-29-2021 End: 11-02-2021 Evaluation and management of inpatient MARJ SORENSEN Facility:[facility] Start: 10-29-2021 Telephone encounter Aly koo MD Work Phone: [facility] Start: 10-28-2021 End: 10-28-2021 ambulatory Godfrey Gomez Other [employer] Other Start: 10-28-2021 Telephone encounter Godfrey Gomez [facility] Start: 03-11-2021 Office outpatient visit 15 minutes Lydia Anderson [facility] Procedures Date Procedure Procedure Detail Performing Clinician Start: 12-02-2021 Plain X-ray of right shoulder MD Marj Sorensen Work Phone: Plan of Treatment Date Care Activity Detail Author Start: 02-27-2033 DTaP,Tdap and Td Vaccines (2 - Td or Tdap) DTaP,Tdap and Td Vaccines (2 - Td or Tdap) [facility] Start: 10-10-2025 Tobacco Screening Tobacco Screening [facility] Start: 04-11-2025 End: 10-10-2025 US.doppler Aorta and Iliac artery - bilateral Vas aorta/iliac duplex complete Vascular Ultrasound Routine 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 (CMS-HCC) Iliac artery stenosis, right (CMS-HCC) Atherosclerosis of aorta (CMS-HCC) Expected: 04/11/2025 (Approximate), Expires: 10/10/2025 Chu Shu Work Phone: Comment on above: Expected: 04/11/2025 (Approximate), Expires: 10/10/2025 Start: 02-17-2025 Influenza vaccination Influenza Vacc ine [facility] Start: 10-10-2024 End: 10-10-2025 US.doppler Lower [...] Visit (G0402) Welcome to Medicare Visit (G0402) [facility] Start: 06-29-2011 Administration of varicella zoster vaccine Zoster (Shingles) Vaccine (2 of 3) [facility] Start: 2006 Fall Risk Screening Fall Risk Screen ing [facility] Start: 2006 Pneumococcal vaccination Pneum ococcal Vaccine(s) (65+ yrs) (1 - PCV) [facility] Start: 1991 Shingles (RZV) Vacci ne (1 of 2) Shingles (RZV) Vaccine (1 of 2) [facility] Start: 1959 Tetanus + diphtheria + acellular pertussis vaccine (product) Tdap Booster [facility] Start: 1953 Depression Screening Depression Scre ening [facility] Start: 1946 COVID-19 Vaccine (1) COVID-19 Vaccin e (1) [facility] Renal function 1999 panel - Serum or Plasma [facility] Renal function 1999 panel - Serum or Plasma [facility] Immunizations Immunization Date Immunization Notes Care Provider Fa cili 04-04-2024 influenza virus vaccine, unspecified formulation Willian Shaikh MD Work Phone: [facility] 02-27-2023 tetanus toxoid, redu piotr diphtheria toxoid, and acellular pertussis vaccine, adsorbed Willian Shaikh MD Work Phone: [facility] 05-04-2011 zoster vaccine, unspecified formulation Willian Shaikh MD Work Phone: [facility] Payers Date Payer Category Payer Self-pay [id number] 2021 Managed Care Other (unspecified) [facility] [id number] 2021 Unknown AARP AARP [id number] 2021-Present [address] [place] [address] [id number] .[id number] 1997 Medicare [id number] .[id number] 1959 Medicare [id number] 1959 Unknown [id number] 1941 Unknown [id number] 2.16.840.1.371657.3.579.2. 647 1941 Unknown [id number] 2.16.840.1.023962.3.579.2. 593 1941 Unknown [id number] 2.16.840.1.439120.3.579.2. 593 1941 Unknown [id number] 2.16.840.1.596538.3.579.2. 593 1941 Unknown [id number] 2.16.840.1.104571.3.579.2. 732 1941 Unknown [id number] 2.16.840.1.857908.3.579.2. 1941 Unknown [id number] 2.16.840.1.725505.3.579.2. 1941 Unknown [id number] 2.16.840.1.312954.3.579.2. 1941 Unknown [id number] 2.16.840.1.853031.3.579.2. 1941 Unknown [id number] 2.16.840.1.696499.3.579.2. 1941 Unknown [id number] 2.16.840.1.215468.3.579.2. 1941 Unknown [id number] 2.16.840.1.142375.3.579.2 1941 Unknown [id number] 2.16.840.1.189092.3.579.2. 1941 Unknown [id number] 2.16.840.1.198244.3.579.2. 1941 Unknown [id number] 2.16.840.1.904987.3.579.2. 1941 Unknown [id number] 2.16.840.1.336411.3.579.2. 1941 Unknown [id number] 2.16.840.1.796746.3.579.2. 1941 Unknown [id number] 2.16.840.1.757743.3.579.2. 1941 Unknown [id number] 2.16.840.1.955886.3.579.2. 1941 Unknown [id number] 2.16.840.1.324734.3.579.2 1941 Unknown [id number] 2.16.840.1.098619.3.579.2. 718 1941 Unknown [id number] 2.16.840.1.764221.3.579.2. 718 1941 Unknown [id number] 2.16.840.1.000670.3.579.2. 718 1941 Unknown [id number] 2.16.840.1.673945.3.579.2. 718 Unknown [id number] 2.16.840.1.000595.3.579.2. 531 Social History Date Type Detail Facility Tobacco smoking status [facility] Tobacco smoking consumption unknown [facility] Work Phone: Start: 1940 [facility] Start: 10-10-2024 Sex Assigned At N [facility] [employer] Other Start: 02-27-2020 End: 10-23-2024 Tobacco smoking status [facility] Never smoked tobacco (finding) [facility] Start: 1940 Sex Assigned At Male F [facility] Start: 10-10-2024 Tobacco smoking status [facility] Ex-smoker [facility] End: 06-19-1989 History of tobacco use Current smoker [facility] History of tobacco use Cigarette Smoker [facility] End: 06-19-1989 History of tobacco use Cigar Smoker [facility] Start: 10-10-2024 Tobacco use and exposure Smokeless tobacco non-user [facility] Start: 10-10-2024 Alcoholic beverage intake Ex-drinker (finding) [facility] Start: 10-10-2024 History of Social function [facility] Within the past 12 months we worried whether our food would run out before we got money to buy more. Never True [facility] Start: 11-03-2021 End: 10-23-2024 Sex Male (finding) [facility] Medical Equipment Procedure Code Equipment Code Equipment Origin al Text Equipment Identifier Dates Arthroplasty, knee, total, minimally invasive Orthopaedic cement, non-medicated [id number] FDA Start: 02-27-2020 Arthroplasty, knee, total, minimally invasive Uncoated knee femur prosthesis [id number] FDA Start: 02-27-2020 Arthroplasty, knee, total, minimally invasive Tibial insert [id number] FDA Start: 02-27-2020 Arthroplasty, knee, total, minimally invasive Polyethylene patella prosthesis ()[id number] [phone] FDA Start: 02-27-2020 Arthroplasty, knee, total, minimally invasive Knee stem ()[id number] [phone] FDA Start: 02-27-2020 Arthroplasty, knee, total, minimally invasive Uncoated knee tibia prosthesis, metallic ()[id number] [phone] FDA Start: 02-27-2020 Clinical Notes 03-11-2021 to 03-12-2025 Note Date & Type Note Facility 03-12-2025 Note [id number] B#1.00[facility] 03-06-2025 Note Entered by Amy Strickland LPN on March 06, 2025 07:27:45 EDT From: Amy Strickland LPN To: [facility] Sent: 03/06/2025 07:27:45 EDT Subject: Medication Management Submitted: Complete:hydroCHLOROthiazide (hydroCHLOROthiazide 25 mg oral tablet) Signed by Amy Strickland LPN 03/06/2025 07:27:00 EDT Submitted: Complete:levothyroxine (levothyroxine 50 mcg (0.05 mg) oral tablet) Signed by Amy Strickland LPN 03/06/2025 07:27:00 EDT Submitted: Complete:furosemide (furosemide 40 mg oral tablet) Signed by Amy Strickland LPN 03/06/2025 07:27:00 EDT Approved with modifications: furosemide (Furosemide 40 MG Oral Tablet) TAKE 1 TABLET BY MOUTH TWICE DAILY Qty: 180 tab(s) Days Supply: 90 Refills: 3 Substitutions Allowed Route To Pharmacy - [facility] Note from Pharmacy: Please send a replace/new response with 90-Day Supply if appropriate to maximize member benefit. Requesting 1 year supply. Signed by Amy Strickland LPN Approved with modifications: levothyroxine (Levothyroxine Sodium 50 MCG Oral Tablet) TAKE 1 TABLET BY MOUTH DAILY Qty: 90 tab(s) Days Supply: 90 Refills: 3 Substitutions Allowed Route To Pharmacy - [facility] Note from Pharmacy: Please send a replace/new response with 90-Day Supply if appropriate to maximize member benefit. Requesting 1 year supply. Signed by Amy Strickland LPN Approved with modifications: hydroCHLOROthiazide (hydroCHLOROthiazide 25 MG Oral Tablet) TAKE 1 TABLET BY MOUTH DAILY Qty: 90 tab(s) Days Supply: 90 Refills: 3 Substitutions Allowed Route To Pharmacy - [facility] Note from Pharmacy: Please send a replace/new response with 90-Day Supply if appropriate to maximize member benefit. Requesting 1 year supply. Signed by Amy Strickland LPN --- From: [facility] To: Marj Sorensen MD Sent: March 05, 2025 9:12:13 PM CDT Subject: Medication Management Due: March 06, 2025 12:10:27 AM CDT On Hold Pending Signature Drug: furosemide (furosemide 40 mg oral tablet), TAKE 1 TABLET BY MOUTH TWICE DAILY Quantity: 180 tab(s) Days Supply: 90 Refills: 3 Substitutions Allowed Notes from Pharmacy: - First Attempt Ref: [id number] Dispensed Drug: furosemide (furosemide 40 mg oral tablet), TAKE 1 TABLET BY MOUTH TWICE DAILY Quantity: 180 tab(s) Days Supply: 90 Refills: 3 Substitutions Allowed Notes from Pharmacy: Please send a replace/new response with 90-Day Supply if appropriate to maximize member benefit. Requesting 1 year supply. On Hold Pending [facility] Drug: levothyroxine (levothyroxine 50 mcg (0.05 mg) oral tablet), TAKE 1 TABLET BY MOUTH DAILY Quantity: 90 tab(s) Days Supply: 90 Refills: 3 Substitutions Allowed Notes from Pharmacy: - First Attempt Ref: [id number] Dispensed Drug: levothyroxine (levothyroxine 50 mcg (0.05 mg) oral tablet), TAKE 1 TABLET BY MOUTH DAILY Quantity: 90 tab(s) Days Supply: 90 Refills: 3 Substitutions Allowed Notes from Pharmacy: Please send a replace/new response with 90-Day Supply if appropriate to maximize member benefit. Requesting 1 year supply. On Hold Pending Signature Drug: hydroCHLOROthiazide (hydroCHLOROthiazide 25 mg oral tablet), TAKE 1 TABLET BY MOUTH DAILY Quantity: 90 tab(s) Days Supply: 90 Refills: 3 Substitutions Allowed Notes from Pharmacy: - First Attempt Ref: [id number] Dispensed Drug: hydroCHLOROthiazide (hydroCHLOROthiazide 25 mg oral tablet), TAKE 1 TABLET BY MOUTH DAILY Quantity: 90 tab(s) Days Supply: 90 Refills: 3 Substitutions Allowed Notes from Pharmacy: Please send a replace/new response with 90-Day Supply if appropriate to maximize member benefit. Requesting 1 year supply. --- [facility] 02-19-2025 Note Entered by Amy Strickland LPN on February 19, 2025 08:05:53 EDT From: Amy Strickland LPN To: [facility] Sent: 02/19/2025 08:05:53 EDT Subject: Medication Management Submitted: Complete:pantoprazole (pantoprazole 40 mg oral delayed release tablet) Signed by Amy Strickland LPN 02/19/2025 08:05:00 EDT Approved with modifications: pantoprazole (Pantoprazole Sodium 40 MG Oral Tablet Delayed Release) TAKE 1 TABLET BY MOUTH DAILY Qty: 90 tab(s) Days Supply: 90 Refills: 3 Substitutions Allowed Route To Pharmacy - [facility] Note from Pharmacy: Please send a replace/new response with 90-Day Supply if appropriate to maximize member benefit. Requesting 1 year supply. Signed by Amy Strickland LPN --- From: [facility] To: Marj Sorensen MD Sent: February 18, 2025 10:14:09 PM CDT Subject: Medication Management Due: February 19, 2025 12:02:16 AM CDT On Hold Pending Signature Drug: pantoprazole (pantoprazole 40 mg oral delayed release tablet), TAKE 1 TABLET BY MOUTH DAILY Quantity: 90 tab(s) Days Supply: 90 Refills: 3 Substitutions Allowed Notes from Pharmacy: - First Attempt Ref: [id number] Dispensed Drug: pantoprazole (pantoprazole 40 mg oral delayed release tablet), TAKE 1 TABLET BY MOUTH DAILY Quantity: 90 tab(s) Days Supply: 90 Refills: 3 Substitutions Allowed Notes from Pharmacy: Please send a replace/new response with 90-Day Supply if appropriate to maximize member benefit. Requesting 1 year supply. --- [facility] 01-08-2025 Note Entered by Amy Strickland LPN [...] year supply. Signed by Amy Strickland LPN --- From: [facility] To: Marj Sorensen MD Sent: January 07, 2025 10:15:40 PM CDT Subject: Medication Management Due: January 08, 2025 12:16:40 PM CDT On Hold Pending Signature Drug: montelukast (montelukast 10 mg oral tablet), TAKE 1 TABLET BY MOUTH ONCE DAILY Quantity: 90 tab(s) Days Supply: 90 Refills: 3 Substitutions Allowed Notes from Pharmacy: - First Attempt Ref: [id number] Dispensed Drug: montelukast (montelukast 10 mg oral [...] Notes from Pharmacy: - First Attempt Ref: [id number] Dispensed Drug: metoprolol (Metoprolol Tartrate 25 mg [...] Notes from Pharmacy: - First Attempt Ref: [id number] Dispensed Drug: apixaban (Eliquis 5 mg oral [...] Notes from Pharmacy: - First Attempt Ref: [id number] Dispensed Drug: Atorvastatin Calcium 80 MG Oral Table (more content not included)... [facility] 10-28-2024 Note [place] [facility] - [facility] Subjective Richard Boykin is a 84 [...] October 29 to November 02, 2021 at [facility] with MSSA bacteremia likely related [...] 3 years ago. He follows with a bobbin inspector. Recent testing: ECG 10/25/2021: Atrial fibrillation, nonspecific [...] walker to ambulate. He continues to see bobbin inspector and has a nurse juan (more content not included)... [facility] 10-23-2024 Evaluation note Diagnosis Onset Date Resolution CKD (chronic kidney disease) stage 3, GFR 30-59 ml/min acute October 23, 2024 3:34pm Hyperlipidemia acute October 23, 2 025 3:34pm Hypertensive chronic kidney disease with stage 1 through stage 4 chronic ki acute October 232024 3:34pm Secondary hyperparathyroidism acute October 23 3:34pm Type 2 diabetes mellitus with diabetic chronic kidney disease acute October 23, 2024 3:34pm [facility] Work Phone: [phone] 982-111404-24-2025 Evaluation + Plan note* Assessment & Plan Note - Willian Shaikh MD - 10/10/2024 10:11 AM EDTAssociated Problem(s): 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 Initially he was reluctant to have evaluation and management of his multilevel occlusive disease in the right lower extremity. Eventually he agreed to further workup. We will do Right Lower extremity And iliac arterial duplex ultrasound because he has CKD with elevated creatinine. In the meanwhile continue aspirin 81 mg atorvastatin 80 mg and low-dose Eliquis. [facility]04-24-2025 Miscellaneous Notes* Assessment & Plan Note - [...] He was referred to us by his bobbin inspector and wound clinic. This wound has been [...] mg total) by mouth in the morning. glcrhzzg-dmap-DO-calcium &mins (THERAGRAN-M) 9 mg iron-400 mcg tablet [...] Interpersonal Safety: Unknown (08/10/2023) Received from [facility] Safety & Environment Fear of Current [...] ischemia of right lower extremity with gangrene ([facility]) - Primary Current Assessment & Plan Had [...] abn abis-non healing wound rt foot-ref by davi. 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 documented in this encounterVermont Psychiatric Care HospitalSweetwater Energy [id number] NoteUT Cardiology - [facility] Subjective Richard Boykin is a [...] lower lobe pneumonia Chronic diastolic heart failure ([facility]) Nonrheumatic aortic valve stenosis PAD (peripheral artery disease) ([facility]) Mixed hyperglyceridemia History of arthritis Gout Dyspnea on exertion Chronic renal impairment Back pain Ulcer of toe ([facility]) Paroxysmal atrial fibrillation ([facility]) Type 2 diabetes mellitus ([facility] Diabetes mellitus ([facility]) Hypertension Peripheral arterial occlusive disease ([facility]) Peripheral vascular disease ([facility]) Osteoarthritis Aortic valve stenosis Hyperlipidemia Leg ulcer, left, with unspecified severity ([facility]) JENARO (acute kidney injury) ([facility]) Allergic rhinitis Cellulitis of toe of right foot Vertigo Fatigue Gastroesophageal reflux disease Heart failure ([facility]) Idiopathic peripheral neuropathy Immunodeficiency disorder ([facility]) Morbid obesity ([facility]) Muscle weakness Psoriasis 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 ([facility]) Stage 3b chronic kidney disease ([facility]) Thrombophilia ([facility]) Tinea pedis Uncontrolled type 2 diabetes mellitus Vitamin D deficiency Wound of skin Type 2 diabetes mellitus with peripheral angiopathy ([facility]) Family History Problem Relation Name Age [...] October 29 to November 02, 2021 at [facility] with MSSA bacteremia likely related [...] 3 years ago. He follows with a bobbin inspector. Recent testing: ECG 10/25/2021: Atrial fibrillation, nonspecific [...] walker to ambulate. He continues to see bobbin inspector and has a nurse that comes to [...] 03/25/2022: He is seen (more content not included)...[facility] 12-02-2021 Evaluation note* Encounter Date Diagnosis Assessment Notes [...] discuss treatment if continues to cause issues [employer] Other 05-18-2022 NoteMR#: [id number] I [facility] Pt. Name: Richard Boykin Admitted: 10/29/2021 Discharged: 11/02/2021 Date of : 1940 Physician: Alicia Sweet MD DISCHARGE SUMMARY FINAL DIAGNOSES: 1. Methicillin-susceptible Staphylococcus aureus bacteremia. 2. Probable septic joint infection. 3. Right knee replacement. 4. New onset atrial fibrillation with RVR. 5. Nonobstructive coronary artery disease and peripheral arterial disease. 6. Swz-schwvzg-ahfbaluct diabetes mellitus. 7. Hypertension. HISTORY OF PRESENT [...] physical exam. Apparently, his repeat cultures at [facility] on October 24 and October 25, [...] his need for full anticoagulation with the [employer] consultant on an outpatient basis. He understands that [...] Sweet MD Date Trans: 11/03/2021 09:12 A/lindsay [id number] cc: Marj Sorensen M.D. [address] [place] [id number] Health [facility]05-13-2022 Miscellaneous Notes* Telephone Encounter - Aly Mcclelland MD - 10/29/2021 2:59 PM EDT I was called by [facility] about patient with septic arthritis and bacteremia requesting transfer for higher level of care. 81 obese, afib, CAD, PAD, hx hip/knee replacement recently moved back from [place]. Presented on 10/24 with R shoulder pain [...] instability. 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 ([facility])- Primary Iliac artery stenosis, right Atherosclerosis of chenega arteries of the extremities, unspecified Atherosclerosis of aorta documented in this encounter [facility]* Diagnosis Onset Date Resolution Status Admit Date CKD (chronic kidney disease) stage 3, GFR 30-59 ml/min acute Sept2024 3:47pm Gout acute February 3:47pm Hyperlipidemia acute February 26, 2025 3:47pm Hypertensive chronic kidney disease with stage 1 through stage 4 chronic ki acute February 3:47pm PAD (peripheral artery disease) acut e February 26, 2025 3:47pm Secondary hyperparathyroidism acute February 26, 2025 3:47pm Type 2 diabetes mellitus wit h diabetic chronic kidney disease acute February 26, 2025 3:47pm [facility] Work Phone: History general Narrative - Reported* Type Description Date Medical History PVD Medical History psoriatic arthritis Medical History diabetes mallitus Medical History Gout arthrits Medical History hypertension Surgical History Bilateral hip replacement Surgical History cataract Surgical History left total hip revision Surgical History RTKA [facility] [employer] Other InstructionsNot on filedocumented in this encounter [facility] SystemReason for referral (narrative)No reason for referral information availableMckitrick Hospital Ctr Work Phone: Summary Purpose Family History No Family History [...] hronic kidney disease October 23, 2024 3:34pm Chief Complaint Admit Date e78.5 I12.9 n25.81 e11.22 n18.30 Septemb er 2024 7:36am RENAL 3 MONTH F/U February 26, 2025 3:47pm Reason for Visit Admit Date CKD (chronic kidney disease) stage 3, GF R 30-59 ml/min February 26, 2025 3:47pm Gout February 26, 2025 3:47pm Hyperlipidemia February 26, 2025 3:47pm Hypertensive chronic kidney disease with stage 1 through stage 4 chronic ki February 26, 2025 3:47pm PAD (peripheral artery disease) Febembe 2024 3:47pm Secondary hyperparathyroidism February 26, 2025 3:47pm Type 2 diabetes mellitus wit h diabetic chronic kidney disease February 26, 2025 3:47pm Additional Source Comments (unrecognized sect ion and content) No Status Records FoundNo Status Records FoundNo Status Records FoundNo Status Records FoundNo Status Records FoundNo Status Records Found INFORMATION SOURCE (unrecogn ized section and content) DATE CREATED AUTHOR 12/04/2021 [facility] DATE CREATED AUTHOR AUTHOR'S ORGANIZ ATION 10/25/2022 [facility] DATE CREATED AUTHOR AUTHOR'S ORGANIZ ATION 02/28/2023 [facility] DATE CREATED AUTHOR AUTHOR'S ORGANIZ ATION 10/29/2024 [facility] DATE CREATED AUTHOR AUTHOR'S ORGANIZ ATION 02/27/2025 [facility] DATE CREATED AUTHOR AUTHOR'S ORGANIZ ATION 03/22/2025 [facility] REASON FOR VISIT (unrecogniz ed section and content) Reason Comments DO NOT MOVE abn abis-non hea ling wound rt foot-REF BY DAVI DO NOT MOVE abn abis-non healing wound r t foot-REF BY HANNAH VELOZ ABIS & NOTES IN MEDIA Care Teams [...] October 23, 2024 End: October 23, 2024 Team Status: Inactive Member Role Status Dates Shelbie Velez MD Attending Provider Active Start : February 24, 2025 End: February 24, 2025 Team Status: Active Member Role Status Dates NON STAFF Primary Care Provider Active Team Status: Inactive Member Role Status Dates Shelbie Velez MD Attending Provider Active Start : February 26, 2025 End: February 26, 2025 NON STAFF Primary Care Provider Active Start: February 26, 2025 End: February 26, 2025 Goals (unrecognized section and content) Goals may [...] BE BASED ON THE PRIMARY CLINICAL RECORDS. [employer] [facility]. provides no warranty or guarantee of the accuracy or completeness of information in this document.
== END 2025-03-25 11:00 | disposition home or self-care (01) ==
LOC: WC 11:00
PROVIDERS: PCP Family Medicine; Visit Provider Physician Assistant
DX: E11.621 Type 2 diabetes mellitus with foot ulcer (principal); L97.512 Non-pressure chronic ulcer of other part of right foot with fat layer exposed; L97.514 Non-pressure chronic ulcer of other part of right foot with necrosis of bone; L97.412 Non-pressure chronic ulcer of right heel and midfoot with fat layer exposed; I87.332 Chronic venous hypertension (idiopathic) with ulcer and inflammation of left lower extremity; L97.825 Non-pressure chronic ulcer of other part of left lower leg with muscle involvement without evidence of necrosis
CPT/HCPCS: G0463